=== PATIENT | female | born 1940 | race African-American/Black ===

== ENCOUNTER 2017-09-27 09:32 | Inpatient (IN) | payer MEDICARE ==
[~2017-09-27] VITALS: Ht 152.4 cm; Wt 61.2 kg
[2017-09-27 10:05] VITALS: BP 135/56
[2017-09-27] MEDS: Ipratropium 0.02% Inh Soln 2.5ml UD HHN SCH ×3 (10:12→10:40)
[2017-09-27] MEDS: Albuterol ud Inhalation HHN SCH ×3 (10:12→10:40)
[2017-09-27] MEDS ORDERED: Azithromycin 500 MG in NS 275 ML IV ONE (10:15)
[2017-09-27] MEDS ORDERED: Solu-MEDROL 125mg Inj IVP ONE (10:15)
[2017-09-27] MEDS ORDERED: cefTRIAXone 1 GM in NS 55 ML IVPB ONE (10:15)
[2017-09-27 10:39] LABS: HEMATOCRIT 46.1 % (37.0-47.0); HEMOGLOBIN 14.6 G/DL (12.0-16.0); MEAN CORPUSCULAR VOLUME 87 FL (80-99); PLATELET COUNT 228 K/UL (150-450); RED CELL DISTRIBUTION WIDTH 12.7 % (11.6-14.8); WHITE BLOOD COUNT 3.8 K/UL (4.8-10.8)
[2017-09-27 10:54] LABS: ANION GAP 5 mmol/L (5-15); BLOOD UREA NITROGEN 13 mg/dL (7-18); CARBON DIOXIDE 35 MMOL/L (21-32); CHLORIDE 98 MMOL/L (98-107); CREATININE 0.7 MG/DL (0.55-1.30); POTASSIUM 3.8 MMOL/L (3.5-5.1); SODIUM 138 MMOL/L (136-145)
[2017-09-27] MEDS ORDERED: Azithromycin 500mg Inj IV ONE (11:00)
[2017-09-27] MEDS ORDERED: NS 275 ML ONE (11:01)
[2017-09-27 11:07] LABS: ALANINE AMINOTRANSFERASE 20 U/L (12-78); ALBUMIN/GLOBULIN RATIO 0.6 (1.0-2.7); ALKALINE PHOSPHATASE 71 U/L (46-116); ASPARTATE AMINO TRANSFERASE 32 U/L (15-37); BILIRUBIN,TOTAL 0.6 MG/DL (0.2-1.0); CKMB 0.8 NG/ML (0.0-3.6); CREATINE KINASE 178 U/L (26-308)
--- NOTE | 2017-09-27 11:15 | Diagnostic Imaging Report ---
Indication: Shortness of breath Technique: One view of the chest Comparison: none Findings: There is slight blunting of left costophrenic sulcus. Interstitial opacities in the left mid and lower lung have a honeycomb appearance. No definite focal airspace consolidation. Probable small calcifications are seen in the left upper lobe. The right pleural spaces clear. The heart size is normal Impression: Interstitial opacities of the left mid and lower lung, likely reflects chronic interstitial fibrotic changes. Superimposed acute interstitial process not completely excludable. Possible small left pleural effusion
--- NOTE | 2017-09-27 11:28 | Emergency Room Report ---
History of Present Illness General Chief Complaint: Dyspnea/Respdistress Source: Patient Present Illness HPI 77-year-old female walk-in for one day of worsening shortness of breath, cough. Using a home Ventolin inhaler without improvement. Not get flu vaccine, got Pneumovax. Denies fever/chills. No recent hospitalization or sick contacts. Non smoker. Allergies: Coded Allergies: CIPROFLOXACIN (Verified Allergy, Unknown, 09/27/17) Patient History Past Medical History: asthma Past Surgical History: none Pertinent Family History: none Social History: Denies: smoking, alcohol use, drug use Now: No Immunizations: UTD Reviewed Nursing Documentation: PMH: Agreed, PSxH: Agreed Nursing Documentation-PMH Past Medical History: No History, Except For Hx Asthma: Yes Review of Systems All Other Systems: negative except mentioned in HPI Physical Exam Vital Signs Date Time Temp Pulse Resp B/P (MAP) Pulse Ox O2 Delivery O2 Flow Rate FiO2 09/27/17 09:55 99.0 98 24 123/61 79 Room Air 09/27/17 10:05 2.0 09/27/17 10:07 28 Sp02 EP Interpretation: reviewed, abnormal General Appearance: normal inspection, well appearing, alert, GCS 15, non-toxic , mild distress Head: normocephalic, atraumatic Eyes: bilateral eye PERRL, bilateral eye EOMI ENT: normal ENT inspection, hearing grossly normal, normal pharynx, no angioedema, normal voice, TMs + canals normal, uvula midline, moist mucus membranes Neck: normal inspection, full range of motion, supple, thyroid normal, no meningismus, no bony tend Respiratory: normal inspection, decreased breath sounds, accessory muscle use, rhonchi, speaking full sentences, wheezing Cardiovascular #1: regular rate, rhythm, no edema, no JVD, normal capillary refill Gastrointestinal: normal inspection, normal bowel sounds, non tender, soft, no mass, no peritonitis, non-distended, no guarding, no hernia, no pulsatile mass Genitourinary: no CVA tenderness Musculoskeletal: normal inspection, back normal, normal range of motion, no calf tenderness, pelvis stable, Osvaldo's Sign negative Neurologic: normal inspection, alert, oriented x3, responsive, temple marker III-XII nml as tested, motor strength/tone normal, cerebellar normal, normal gait, speech normal Psychiatric: normal inspection, judgement/insight normal, mood/affect normal, no suicidal/homicidal ideation, no delusions Skin: normal inspection, normal color, no rash Lymphatic: normal inspection, no adenopathy Procedures Critical Care Time Critical Care Time CC time 35minutes Critical care time endorsed for this patient for acute SOB, likely asthma exac. Hypoxic, tachypnic. Critical care time includes review of laboratory tests, imaging, review of EMR, review of paperwork from SNF (if available), discussion with patient and family (if available), review of code status/POLS (if available). Critical care time also likely includes assessment of fluid status, stabilization of vital signs, selection and dosing of appropriate antibiotics, selection and dosing of Aspirin/Plavix/Heparin/Lovenox, discussion with PMD/ attending hospitalist/loom setter. Critical care time does not include any procedures which are documented elsewhere in this EMR. Medical Decision Making Diagnostic Impression: Primary Impression: Asthma exacerbation Qualified Codes: J45.51 - Severe persistent asthma with (acute) exacerbation Additional Impression: Elevated troponin ER Course Vital signs significant for hypoxia - 94% with 2 L oxygen supplementation Also significant for tachypnea, retractions, using accessory muscles Lungs consistent wheezing and rhonchi left greater than right Concern for pneumonia Patient was placed on BiPAP and improved with nebs, magnesium Was given empiric antibiotics for clinical pneumonia, or afebrile in no leukocytosis Chest x-ray with possible left lower lobe effusion and chronic interstitial disease A troponin likely demand ischemia, as ECG does not show any ischemia or arrhythmia. Was given aspirin and will need serial troponin with ACS rule out Endorse to Dr. Rodriguez as unassigned panel admission RK admission, 1146am EKG Diagnostic Results Rate: normal Rhythm: NSR ST Segments: no acute changes ASA given to the pt in ED: Yes Rhythm Strip Diag. Results EP Interpretation: yes Rate: 106 Rhythm: NSR, no PVC's, no ectopy Chest X-Ray Diagnostic Results Chest X-Ray Diagnostic Results : Chest X-Ray Ordered: Yes # of Views/Limited/Complete: 1 View Indication: Shortness of Breath EP Interpretation: Yes Interpretation: no consolidation, no pneumothorax, no acute cardiopulmonary disease Electronically Signed by: Dr Buster Shankar mD Last Vital Signs Date Time Temp Pulse Resp B/P (MAP) Pulse Ox O2 Delivery O2 Flow Rate FiO2 09/27/17 10:56 89 26 100 Nasal Cannula 2.0 28 09/27/17 10:05 99.0 135/56 Status: improved Disposition: ADMITTED INPATIENT Condition: Critical Referrals: NOT CHOSEN MANDI/,REFERRING (PCP) BUSTER SHANKAR M.D. Sep 27, 2017 11:28
[2017-09-27 11:30] VITALS: BP 127/58
[2017-09-27 12:29] VITALS: BP 129/58
[2017-09-27] MEDS ORDERED: Albuterol/Ipratropium 3ml neb HHN PRN (13:30)
[2017-09-27] MEDS ORDERED: LORazepam Inj 2mg/ml 1ml IV PRN (13:30)
[2017-09-27] MEDS ORDERED: Nitroglycerin Subl 0.4mg tab SL PRN (13:30)
[2017-09-27] MEDS ORDERED: Promethazine/Codeine 5ml UD ORAL PRN (13:30)
[2017-09-27] MEDS ORDERED: Morphine Sulfate 2mg/ml Inj IVP PRN (13:30)
[2017-09-27] MEDS ORDERED: Ketorolac 30mg Inj IV PRN (13:30)
[2017-09-27] MEDS ORDERED: VENTOLIN HFA18 GM INH (13:51)
[2017-09-27] MEDS ORDERED: Piperacillin/Tazobactam 2.25 GM in D5W 55 ML IV SCH (14:00)
--- NOTE | 2017-09-27 14:09 | History and Physical ---
History of Present Illness General Date patient seen: Sep 27, 2017 Time patient seen: 14:09 Reason for Hospitalization: Dyspnea/Respdistress Present Illness HPI 77y/o female with pmh of asthma who presents with SOB and cough. Cough productive of white mucus. Pt states she has been having symptoms for the past few days but worsened today. She has been using her albuterol rescue inhaler w/ o relief. Denies f/c, n/v, d/c, chest pain, abd pain, dysuria. Denies recent travel or sick contacts. Did not get flue shot this year and does not want it. Got the pneumovax. Does not smoke. Pt states she has an a pulmonary workup at [facility] abt 1 year ago and declines further testing including CT scan. In ED pt noted to be hypoxic to 79% on room air. She was also tachypneic and using accessory muscles. Placed on BiPAP with improvement. Given solumedrol 125mg IV, nebulizers. Concern for pneumonia on CXR. Pt was given ceftriaxone and azithro.. Allergies: Coded Allergies: CIPROFLOXACIN (Verified Allergy, Unknown, 09/27/17) Medication History Scheduled Albuterol Sulfate (Ventolin Hfa), 2 PUFFS INH EVERY 6 HOURS, (Reported) Patient History History Provided By: Patient, Medical Record, EMS Healthcare decision maker Resuscitation status Advanced Directive on File Past Medical/Surgical History Past Medical/Surgical History: (1) Asthma Family History Family History: Patient reports no known family medical history. Social History Social History: (1) Lives with family Review of Systems Constitutional: Reports: malaise, weakness Eye: Reports: no symptoms ENT: Reports: no symptoms Respiratory: Reports: cough, shortness of breath Cardiovascular: Reports: no symptoms Gastrointestinal: Reports: no symptoms Genitourinary: Reports: no symptoms Musculoskeletal: Reports: no symptoms Skin: Reports: no symptoms Psychiatric: Reports: no symptoms Neurological: Reports: no symptoms Endocrine: Reports: no symptoms Hematologic/Lymphatic: Reports: no symptoms Physical Exam Physical Exam Narrative General: alert, cooperative, no distress, appears stated age Head: normocephalic, without obvious abnormality, atraumatic Eyes: conjunctivae/corneas clear. PERRL, EOM's intact Throat: lips, mucosa, and tongue normal. MMM Neck: supple, symmetrical, trachea midline, and no JVD Lungs: decreased breath sounds, +rhonchi L>R, +wheezing b/l Heart: regular rate and rhythm, S1, S2 normal, no murmur, click, rub or gallop Abdomen: soft, non-tender, non-distended, bowel sounds normal; no masses or organomegaly Extremities: extremities normal, atraumatic, no cyanosis or edema Pulses: 2+ and symmetric Skin: skin color, texture, turgor normal; no rashes or lesions Neurologic: grossly normal, no focal deficits Last 24 Hour Vital Signs Date Time Temp Pulse Resp B/P (MAP) Pulse Ox O2 Delivery O2 Flow Rate FiO2 09/27/17 12:29 99.1 103 27 129/58 100 Bi-pap 60 09/27/17 12:02 99 26 100 Facial 60 09/27/17 12:00 60 09/27/17 11:30 98.4 103 29 127/58 93 Nasal Cannula 2.0 09/27/17 10:56 89 26 100 Nasal Cannula 2.0 28 09/27/17 10:40 89 30 100 Nasal Cannula 2.0 28 09/27/17 10:29 82 26 100 Nasal Cannula 2.0 28 09/27/17 10:25 85 24 100 Nasal Cannula 2.0 28 09/27/17 10:17 81 22 100 Nasal Cannula 2.0 28 09/27/17 10:07 82 22 94 Nasal Cannula 2.0 28 09/27/17 10:05 99.0 88 33 135/56 89 Room Air 09/27/17 10:05 88 33 Nasal Cannula 2.0 09/27/17 09:55 99.0 98 24 123/61 79 Room Air Laboratory Tests Test 09/27/17 10:15 09/27/17 11:41 White Blood Count 3.8 K/UL (4.8-10.8) L Red Blood Count 5.30 M/UL (4.20-5.40) Hemoglobin 14.6 G/DL (12.0-16.0) Hematocrit 46.1 % (37.0-47.0) Mean Corpuscular Volume 87 FL (80-99) Mean Corpuscular Hemoglobin 27.5 PG (27.0-31.0) Mean Corpuscular Hemoglobin Concent 31.6 G/DL (32.0-36.0) L Red Cell Distribution Width 12.7 % (11.6-14.8) Platelet Count 228 K/UL (150-450) Mean Platelet Volume 6.6 FL (6.5-10.1) Neutrophils (%) (Auto) % (45.0-75.0) Lymphocytes (%) (Auto) % (20.0-45.0) Monocytes (%) (Auto) % (1.0-10.0) Eosinophils (%) (Auto) % (0.0-3.0) Basophils (%) (Auto) % (0.0-2.0) Differential Total Cells Counted 100 Neutrophils % (Manual) 34 % (45-75) L Lymphocytes % (Manual) 42 % (20-45) Monocytes % (Manual) 21 % (1-10) H Eosinophils % (Manual) 0 % (0-3) Basophils % (Manual) 0 % (0-2) Band Neutrophils 3 % (0-8) Platelet Estimate Adequate Platelet Morphology Normal Sodium Level 138 MMOL/L (136-145) Potassium Level 3.8 MMOL/L (3.5-5.1) Chloride Level 98 MMOL/L (98-107) Carbon Dioxide Level 35 MMOL/L (21-32) H Anion Gap 5 mmol/L (5-15) Blood Urea Nitrogen 13 mg/dL (7-18) Creatinine 0.7 MG/DL (0.55-1.30) Estimat Glomerular Filtration Rate mL/min (>60) Glucose Level 106 MG/DL (74-106) Calcium Level 9.0 MG/DL (8.5-10.1) Total Bilirubin 0.6 MG/DL (0.2-1.0) Aspartate Amino Transf (AST/SGOT) 32 U/L (15-37) Alanine Aminotransferase (ALT/SGPT) 20 U/L (12-78) Alkaline Phosphatase 71 U/L (46-116) Total Creatine Kinase 178 U/L (26-308) Creatine Kinase MB 0.8 NG/ML (0.0-3.6) Creatine Kinase MB Relative Index 0.4 Troponin I 0.195 ng/mL (0.000-0.056) Pro-B-Type Natriuretic Peptide 595 pg/mL (0-125) H Total Protein 7.9 G/DL (6.4-8.2) Albumin 3.0 G/DL (3.4-5.0) L Globulin 4.9 g/dL Albumin/Globulin Ratio 0.6 (1.0-2.7) L Arterial Blood pH 7.382 (7.350-7.450) Arterial Blood Partial Pressure CO2 48.9 mmHg (35.0-45.0) H Arterial Blood Partial Pressure O2 210.0 mmHg (75.0-100.0) H Arterial Blood HCO3 28.4 mmol/L (22.0-26.0) H Arterial Blood Oxygen Saturation 99.0 % (92.0-98.0) H Arterial Blood Base Excess 2.5 Francisco J Test Positive Microbiology Date/Time Source Procedure Growth Status 09/27/17 10:15 Nasal Nares Influenza Types A,B Antigen (GEOFF) - Final Complete Height (Feet): 5 Weight (Pounds): 135 Medications Current Medications Medications (Trade) Dose Ordered Sig/Ghislaine Route PRN Reason Start Time Stop Time Status Last Admin Dose Admin Albuterol/ Ipratropium (Albuterol/ Ipratropium) 3 ml Q4H PRN HHN dyspnea 09/27/17 13:30 10/02/17 13:29 Albuterol/ Ipratropium (Albuterol/ Ipratropium) 3 ml Q6HRT HHN 09/27/17 19:00 10/02/17 18:59 UNV Dextrose (Dextrose 50%) STAT PRN IV Hypoglycemia 09/27/17 13:30 10/27/17 13:29 Heparin Sodium (Porcine) (Heparin 5000 units/ml) 5,000 units EVERY 12 HOURS SUBQ 09/27/17 21:00 10/27/17 20:59 Ketorolac Tromethamine (Toradol 30mg) 30 mg Q8H PRN IV moderate pain 4-6 09/27/17 13:30 10/02/17 13:29 Lorazepam (Ativan 2mg/ml 1ml) 0.5 mg Q4H PRN IV For Anxiety 09/27/17 13:30 10/04/17 13:29 Methylprednisolone Sodium Succinate (Solu-MEDROL) 60 mg EVERY 6 HOURS IV 09/27/17 18:00 10/27/17 17:59 Morphine Sulfate (Morphine Sulfate) 2 mg Q4H PRN IVP severe pain 7-10 09/27/17 13:30 10/04/17 13:29 Nitroglycerin (Ntg) 0.4 mg Q5M X 3 DOSES PRN SL Prn Chest Pain 09/27/17 13:30 10/27/17 13:29 Ondansetron HCl (Zofran) 4 mg Q6H PRN IVP Nausea & Vomiting 09/27/17 13:30 10/27/17 13:29 Piperacillin Sod/ Tazobactam Sod 2.25 gm/Dextrose 55 ml @ 110 mls/hr EVERY 8 HOURS IV 09/27/17 14:00 10/02/17 13:59 UNV Promethazine HCl/ Codeine (Phenergan with Codeine) 5 ml Q6H PRN ORAL cough 09/27/17 13:30 10/27/17 13:29 Temazepam (Restoril) 15 mg HSPRN PRN ORAL Insomnia 09/27/17 13:30 10/04/17 13:29 Assessment/Plan Problem List: (1) Asthma exacerbation ICD Codes: J45.901 - Unspecified asthma with (acute) exacerbation SNOMED: 423086685 Qualifiers: Qualified Codes: J45.51 - Severe persistent asthma with (acute) exacerbation (2) Acute respiratory failure with hypoxia ICD Codes: J96.01 - Acute respiratory failure with hypoxia SNOMED: 26107649, 797439574 (3) Community acquired pneumonia ICD Codes: J18.9 - Pneumonia, unspecified organism SNOMED: 113955834 (4) NSTEMI (non-ST elevated myocardial infarction) ICD Codes: I21.4 - Non-ST elevation (NSTEMI) myocardial infarction SNOMED: 401502471 Status: stable Assessment/Plan Admit inpt Pulm and cardiology consulted Cont BiPAP for now s/p solumedrol 125mg IV in ER Cont steroids per pulm Nebulizers ATC and PRN Empiric zosyn for now CXR with chronic interstitial changes. Pt refusing CT chest Trend trop/EKG Check TTE Pain control, bowel regimen Supportive care DVT Prophylaxis: SCD, HSQ Code Status: Full Hospital Classification Declaration: Based on this initial evaluation, and depending on the patient's clinical course, I anticipate that this patient will require hospitalization for 2-3 days for asthma exacerbation, hypoxia, and close respiratory/hemodynamic monitoring. Disposition: Once the patient is stable to leave the hospital, I anticipate the patient will likely be discharged to the following environment: home with vs SNF I spent 72 minutes on this patient's case, and >50% was dedicated to counseling and/or care coordination. Discussed with patient/family, nursing staff, SW/CM, [ ] regarding clinical status, treatment course, and disposition planning. D/w pulm re steroids, BiPAP. D/w cardiology re trend trop, ECHO Time of note may not reflect time of encounter. Darshan Watts M.D. Sep 27, 2017 14:09
[2017-09-27 15:00] VITALS: BP 123/77
--- NOTE | 2017-09-27 15:17 | Cardiac Electrophysiology PN ---
Subjective Subjective Seen in ER and [facility] ER and Dr Sexton Trop leak. ECGNo ischemia. Echo pendiing. Avoid BB for asthma [id number] Objective Last 24 Hour Vital Signs Date Time Temp Pulse Resp B/P (MAP) Pulse Ox O2 Delivery O2 Flow Rate FiO2 09/27/17 12:29 99.1 103 27 129/58 100 Bi-pap 60 09/27/17 12:02 99 26 100 Facial 60 09/27/17 12:00 60 09/27/17 11:30 98.4 103 29 127/58 93 Nasal Cannula 2.0 09/27/17 10:56 89 26 100 Nasal Cannula 2.0 28 09/27/17 10:40 89 30 100 Nasal Cannula 2.0 28 09/27/17 10:29 82 26 100 Nasal Cannula 2.0 28 09/27/17 10:25 85 24 100 Nasal Cannula 2.0 28 09/27/17 10:17 81 22 100 Nasal Cannula 2.0 28 09/27/17 10:07 82 22 94 Nasal Cannula 2.0 28 09/27/17 10:05 99.0 88 33 135/56 89 Room Air 09/27/17 10:05 88 33 Nasal Cannula 2.0 09/27/17 09:55 99.0 98 24 123/61 79 Room Air Laboratory Tests Test 09/27/17 10:15 09/27/17 11:41 White Blood Count 3.8 K/UL (4.8-10.8) L Red Blood Count 5.30 M/UL (4.20-5.40) Hemoglobin 14.6 G/DL (12.0-16.0) Hematocrit 46.1 % (37.0-47.0) Mean Corpuscular Volume 87 FL (80-99) Mean Corpuscular Hemoglobin 27.5 PG (27.0-31.0) Mean Corpuscular Hemoglobin Concent 31.6 G/DL (32.0-36.0) L Red Cell Distribution Width 12.7 % (11.6-14.8) Platelet Count 228 K/UL (150-450) Mean Platelet Volume 6.6 FL (6.5-10.1) Neutrophils (%) (Auto) % (45.0-75.0) Lymphocytes (%) (Auto) % (20.0-45.0) Monocytes (%) (Auto) % (1.0-10.0) Eosinophils (%) (Auto) % (0.0-3.0) Basophils (%) (Auto) % (0.0-2.0) Differential Total Cells Counted 100 Neutrophils % (Manual) 34 % (45-75) L Lymphocytes % (Manual) 42 % (20-45) Monocytes % (Manual) 21 % (1-10) H Eosinophils % (Manual) 0 % (0-3) Basophils % (Manual) 0 % (0-2) Band Neutrophils 3 % (0-8) Platelet Estimate Adequate Platelet Morphology Normal Sodium Level 138 MMOL/L (136-145) Potassium Level 3.8 MMOL/L (3.5-5.1) Chloride Level 98 MMOL/L (98-107) Carbon Dioxide Level 35 MMOL/L (21-32) H Anion Gap 5 mmol/L (5-15) Blood Urea Nitrogen 13 mg/dL (7-18) Creatinine 0.7 MG/DL (0.55-1.30) Estimat Glomerular Filtration Rate mL/min (>60) Glucose Level 106 MG/DL (74-106) Calcium Level 9.0 MG/DL (8.5-10.1) Total Bilirubin 0.6 MG/DL (0.2-1.0) Aspartate Amino Transf (AST/SGOT) 32 U/L (15-37) Alanine Aminotransferase (ALT/SGPT) 20 U/L (12-78) Alkaline Phosphatase 71 U/L (46-116) Total Creatine Kinase 178 U/L (26-308) Creatine Kinase MB 0.8 NG/ML (0.0-3.6) Creatine Kinase MB Relative Index 0.4 Troponin I 0.195 ng/mL (0.000-0.056) Pro-B-Type Natriuretic Peptide 595 pg/mL (0-125) H Total Protein 7.9 G/DL (6.4-8.2) Albumin 3.0 G/DL (3.4-5.0) L Globulin 4.9 g/dL Albumin/Globulin Ratio 0.6 (1.0-2.7) L Arterial Blood pH 7.382 (7.350-7.450) Arterial Blood Partial Pressure CO2 48.9 mmHg (35.0-45.0) H Arterial Blood Partial Pressure O2 210.0 mmHg (75.0-100.0) H Arterial Blood HCO3 28.4 mmol/L (22.0-26.0) H Arterial Blood Oxygen Saturation 99.0 % (92.0-98.0) H Arterial Blood Base Excess 2.5 Francisco J Test Positive Microbiology Date/Time Source Procedure Growth Status 09/27/17 10:15 Nasal Nares Influenza Types A,B Antigen (GEOFF) - Final Complete YAYA ALARCON Sep 27, 2017 15:17
[2017-09-27 16:00] VITALS: BP 124/67
--- NOTE | 2017-09-27 17:15 | Cardiology Report ---
APPROVED REPORT EXAM: Two-dimensional and M-mode echocardiogram with Doppler and color Doppler. INDICATION Shortness of breath M-Mode DIMENSIONS IVSd1.2 (0.7-1.1cm)Left Atrium (MM)3.3 (1.6-4.0cm) LVDd4.7 (3.5-5.6cm)Aortic Root2.4 (2.0-3.7cm) PWd0.9 (0.7-1.1cm)Aortic Cusp Exc.1.7 (1.5-2.0cm) LVDs2.3 (2.5-4.0cm) PWs1.5 cm Normal left ventricular chamber size, systolic function and wall motion. Left ventricular ejection fraction estimated to be 55 %. Mild left ventricular hypertrophy. No evidence of pericardial effusion. Mild left atrial enlargement. Right cardiac chamber sizes are within normal limits. Focal aortic valve sclerosis with adequate cusp excursion. Mildly thickened mitral valve leaflets with normal excursion. Mild mitral annulus and aortic root calcification. Normal pulmonic valve structure. Normal tricuspid valve structure. IVC dilated at 2.0 cm with physiological collapse. A color flow and spectral Doppler study was performed and revealed: No aortic insufficiency. Mild mitral regurgitation. reduced left ventricular relaxation c/w impaired relaxation diastolic dysfunction. Mild tricuspid regurgitation. Tricuspid systolic velocities suggests peak right ventricular systolic pressure of 55 mmHg, consistent with moderate pulmonary hypertension. No pulmonic regurgitation present.
[2017-09-27 17:30] VITALS: BP 113/61
[2017-09-27] MEDS: Solu-MEDROL 125mg Inj IV SCH ×2 (17:50→23:42)
[2017-09-27] MEDS: guaiFENesin ER 600mg tab ORAL SCH (17:51)
[2017-09-27] MEDS: Zosyn 3.375gm q8h **Extended infusion IVPB SCH ×2 (17:51)
--- NOTE | 2017-09-27 18:00 | Consultation ---
DATE OF CONSULTATION: 09/27/2017 CARDIOLOGY CONSULTATION CONSULTING PHYSICIAN: Montana Elaine M.D. REFERRING PHYSICIAN: Laurie Rodriguez M.D. ADDITIONAL REFERRING PHYSICIAN: Darshan Watts M.D. REASON FOR CONSULTATION: Elevated troponin. HISTORY OF PRESENT ILLNESS: The patient is a 77-year-old lady with history of asthma, who presents to the emergency room with increasing shortness of breath. The patient uses Ventolin inhaler at home and did not improve. The patient did not have any chest pain or prior myocardial infarction or known coronary artery disease. In the emergency room, the patient's troponin was elevated and a Cardiology consultation was obtained for further evaluation and management. Her EKG, however, showed T-wave inversion only in lead 3, otherwise completely normal. PAST MEDICAL HISTORY: Asthma. The patient denies any hypertension or diabetes or known coronary artery disease or congestive heart failure. FAMILY HISTORY: Noncontributory. SOCIAL HISTORY: She lives at home. Does not smoke or drink alcohol. REVIEW OF SYSTEMS: Review of systems was performed and was negative other than what was mentioned in the history of present illness. PHYSICAL EXAMINATION: VITAL SIGNS: Blood pressure was 121/61, pulse 98, respirations 20, and temperature 99. HEAD AND NECK: Showed no JVD or carotid bruit. LUNGS: Diffuse wheezing. CARDIOVASCULAR: Shows regular S1 and S2 with no gallop or murmur. ABDOMEN: Soft and nontender. EXTREMITIES: No pitting edema. LABORATORY DATA: Her labs show white count of 3.8, hemoglobin 14.6, hematocrit 46.1, and platelet count is 228,000. Sodium is 138, potassium 3.8, BUN of 13, creatinine 0.7, and glucose of 106. BNP is 595. Troponin is 0.195. ASSESSMENT AND PLAN: 1. Troponin leak. This is unusual as the patient has essentially no risk factors except for her age. Her EKG showed inverted T-waves in lead 3 only. We will completely rule out myocardial infarction protocol. We will get an echocardiogram to evaluate for ejection fraction and wall motion abnormality. Keep the patient on aspirin. Avoid beta-radha in view of the patient's severe asthma. 2. Asthma exacerbation. The patient is on antibiotic as well as Solu-Medrol and albuterol, under the management of Dr. Rodriguez. Thank you very much for allowing me to participate in the care of this patient. Please do not hesitate to contact me for any questions regarding my evaluation. Montana Elaine M.D. DR: KIRAN JOB#: [id number] CC:
--- NOTE | 2017-09-27 19:24 | Consultation ---
History of Present Illness General Date patient seen: Sep 27, 2017 Chief Complaint: Dyspnea/Respdistress Referring physician: Dr. Rodriguez Reason for Consultation: dyspnea Present Illness HPI 77-year-old female with hx of asthma walk-in to Er with CC of worsening shortness of breath, cough and other flu type symptoms. Pt had productive cough. Her usual inhalers didn't helpr without improvement. Her CXR showed chronic fibrosis and her troponin was positive. She is admitted to [facility] for further management. 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 kamron boswell. Resuscitation status Full Code Advanced Directive on File No Past Medical/Surgical History Past Medical/Surgical History: (1) Pulmonary fibrosis (2) History of asthma Review of Systems Constitutional: Reports: malaise Eye: Reports: no symptoms ENT: Reports: no symptoms Respiratory: Reports: no symptoms Physical Exam General Appearance: WD/WN Lines, tubes and drains: peripheral HEENT: normocephalic, atraumatic Neck: non-tender, normal alignment Breasts: no masses Cardiovascular/Chest: normal peripheral pulses Abdomen: normal bowel sounds Genitourinary/Rectal: normal genital exam Extremities: normal range of motion Skin Exam: normal pigmentation Last 24 Hour Vital Signs Date Time Temp Pulse Resp B/P (MAP) Pulse Ox O2 Delivery O2 Flow Rate FiO2 09/27/17 17:30 97.5 91 21 113/61 97 Nasal Cannula 2.0 09/27/17 17:00 98.7 36 124/67 94 Nasal Cannula 2.0 09/27/17 16:00 88 36 124/67 94 Nasal Cannula 2.0 09/27/17 15:00 98.7 86 33 123/77 93 Nasal Cannula 2.0 09/27/17 12:29 99.1 103 27 129/58 100 Bi-pap 60 09/27/17 12:02 99 26 100 Facial 60 09/27/17 12:00 60 09/27/17 11:30 98.4 103 29 127/58 93 Nasal Cannula 2.0 09/27/17 10:56 89 26 100 Nasal Cannula 2.0 28 09/27/17 10:40 89 30 100 Nasal Cannula 2.0 28 09/27/17 10:29 82 26 100 Nasal Cannula 2.0 28 09/27/17 10:25 85 24 100 Nasal Cannula 2.0 28 09/27/17 10:17 81 22 100 Nasal Cannula 2.0 28 09/27/17 10:07 82 22 94 Nasal Cannula 2.0 28 09/27/17 10:05 99.0 88 33 135/56 89 Room Air 09/27/17 10:05 88 33 Nasal Cannula 2.0 09/27/17 09:55 99.0 98 24 123/61 79 Room Air Laboratory Tests Test 09/27/17 10:15 09/27/17 11:41 09/27/17 16:00 White Blood Count 3.8 K/UL (4.8-10.8) L Red Blood Count 5.30 M/UL (4.20-5.40) Hemoglobin 14.6 G/DL (12.0-16.0) Hematocrit 46.1 % (37.0-47.0) Mean Corpuscular Volume 87 FL (80-99) Mean Corpuscular Hemoglobin 27.5 PG (27.0-31.0) Mean Corpuscular Hemoglobin Concent 31.6 G/DL (32.0-36.0) L Red Cell Distribution Width 12.7 % (11.6-14.8) Platelet Count 228 K/UL (150-450) Mean Platelet Volume 6.6 FL (6.5-10.1) Neutrophils (%) (Auto) % (45.0-75.0) Lymphocytes (%) (Auto) % (20.0-45.0) Monocytes (%) (Auto) % (1.0-10.0) Eosinophils (%) (Auto) % (0.0-3.0) Basophils (%) (Auto) % (0.0-2.0) Differential Total Cells Counted 100 Neutrophils % (Manual) 34 % (45-75) L Lymphocytes % (Manual) 42 % (20-45) Monocytes % (Manual) 21 % (1-10) H Eosinophils % (Manual) 0 % (0-3) Basophils % (Manual) 0 % (0-2) Band Neutrophils 3 % (0-8) Platelet Estimate Adequate Platelet Morphology Normal Sodium Level 138 MMOL/L (136-145) Potassium Level 3.8 MMOL/L (3.5-5.1) Chloride Level 98 MMOL/L (98-107) Carbon Dioxide Level 35 MMOL/L (21-32) H Anion Gap 5 mmol/L (5-15) Blood Urea Nitrogen 13 mg/dL (7-18) Creatinine 0.7 MG/DL (0.55-1.30) Estimat Glomerular Filtration Rate mL/min (>60) Glucose Level 106 MG/DL (74-106) Calcium Level 9.0 MG/DL (8.5-10.1) Total Bilirubin 0.6 MG/DL (0.2-1.0) Aspartate Amino Transf (AST/SGOT) 32 U/L (15-37) Alanine Aminotransferase (ALT/SGPT) 20 U/L (12-78) Alkaline Phosphatase 71 U/L (46-116) Total Creatine Kinase 178 U/L (26-308) Creatine Kinase MB 0.8 NG/ML (0.0-3.6) Creatine Kinase MB Relative Index 0.4 Troponin I 0.195 ng/mL (0.000-0.056) 0.188 ng/mL (0.000-0.056) Pro-B-Type Natriuretic Peptide 595 pg/mL (0-125) H Total Protein 7.9 G/DL (6.4-8.2) Albumin 3.0 G/DL (3.4-5.0) L Globulin 4.9 g/dL Albumin/Globulin Ratio 0.6 (1.0-2.7) L Arterial Blood pH 7.382 (7.350-7.450) Arterial Blood Partial Pressure CO2 48.9 mmHg (35.0-45.0) H Arterial Blood Partial Pressure O2 210.0 mmHg (75.0-100.0) H Arterial Blood HCO3 28.4 mmol/L (22.0-26.0) H Arterial Blood Oxygen Saturation 99.0 % (92.0-98.0) H Arterial Blood Base Excess 2.5 Francisco J Test Positive Microbiology Date/Time Source Procedure Growth Status 09/27/17 10:15 Nasal Nares Influenza Types A,B Antigen (GEOFF) - Final Complete Height (Feet): 5 Height (Inches): 0.00 Weight (Pounds): 135 Medications Current Medications Medications (Trade) Dose Ordered Sig/Ghislaine Route PRN Reason Start Time Stop Time Status Last Admin Dose Admin Albuterol/ Ipratropium (Albuterol/ Ipratropium) 3 ml Q4H PRN HHN dyspnea 09/27/17 13:30 10/02/17 13:29 Albuterol/ Ipratropium (Albuterol/ Ipratropium) 3 ml Q6HRT HHN 09/27/17 19:00 10/02/17 18:59 Dextrose (Dextrose 50%) STAT PRN IV Hypoglycemia 09/27/17 13:30 10/27/17 13:29 Guaifenesin (Mucinex ER) 600 mg TWICE A DAY ORAL 09/27/17 18:00 10/27/17 17:59 09/27/17 17:51 Heparin Sodium (Porcine) (Heparin 5000 units/ml) 5,000 units EVERY 12 HOURS SUBQ 09/27/17 21:00 10/27/17 20:59 Ketorolac Tromethamine (Toradol 30mg) 30 mg Q8H PRN IV moderate pain 4-6 09/27/17 13:30 10/02/17 13:29 Lorazepam (Ativan 2mg/ml 1ml) 0.5 mg Q4H PRN IV For Anxiety 09/27/17 13:30 10/04/17 13:29 Methylprednisolone Sodium Succinate (Solu-MEDROL) 60 mg EVERY 6 HOURS IV 09/27/17 18:00 10/27/17 17:59 09/27/17 17:50 Morphine Sulfate (Morphine Sulfate) 2 mg Q4H PRN IVP severe pain 7-10 09/27/17 13:30 10/04/17 13:29 Nitroglycerin (Ntg) 0.4 mg Q5M X 3 DOSES PRN SL Prn Chest Pain 09/27/17 13:30 10/27/17 13:29 Ondansetron HCl (Zofran) 4 mg Q6H PRN IVP Nausea & Vomiting 09/27/17 13:30 10/27/17 13:29 Piperacillin Sod/ Tazobactam Sod 3.375 gm/Sodium Chloride 110 ml @ 27.5 mls/hr EVERY 8 HOURS IVPB 09/27/17 18:00 10/02/17 17:59 09/27/17 17:51 Promethazine HCl/ Codeine (Phenergan with Codeine) 5 ml Q6H PRN ORAL cough 09/27/17 13:30 10/27/17 13:29 Temazepam (Restoril) 15 mg HSPRN PRN ORAL Insomnia 09/27/17 13:30 10/04/17 13:29 Assessment/Plan Problem List: (1) Asthma exacerbation ICD Codes: J45.901 - Unspecified asthma with (acute) exacerbation SNOMED: 601809651 Qualifiers: Qualified Codes: J45.51 - Severe persistent asthma with (acute) exacerbation (2) Pulmonary fibrosis ICD Codes: J84.10 - Pulmonary fibrosis, unspecified SNOMED: 06228968 (3) Elevated troponin ICD Codes: R74.8 - Abnormal levels of other serum enzymes SNOMED: 680190231, 579136576, 569004727 Assessment/Plan respiratory treatment check sputum IV steroids check cultures IV abx echo cardiology to see. EDITH STACK Sep 27, 2017 19:24
[2017-09-27] MEDS: Albuterol/Ipratropium 3ml neb HHN SCH (20:33)
[2017-09-27] MEDS ORDERED: Theophylline ER 100mg ORAL SCH (21:00)
[2017-09-27] MEDS: Heparin 5000 units/ml inj SUBQ SCH (21:16)
[2017-09-28] VITALS: BP 103/89
[2017-09-28] MEDS: Albuterol/Ipratropium 3ml neb HHN SCH ×4 (00:46→20:17)
[2017-09-28 04:00] VITALS: BP 110/62
[2017-09-28] MEDS: Solu-MEDROL 125mg Inj IV SCH ×3 (05:35→22:15)
[2017-09-28] MEDS: Zosyn 3.375gm q8h **Extended infusion IVPB SCH ×6 (05:35→22:18)
[2017-09-28 07:25] LABS: ANION GAP 6 mmol/L (5-15); BLOOD UREA NITROGEN 19 mg/dL (7-18); CALCIUM 8.8 MG/DL (8.5-10.1); CARBON DIOXIDE 34 MMOL/L (21-32); CHLORIDE 103 MMOL/L (98-107); CHOLESTEROL 171 MG/DL (< 200); CREATININE 0.7 MG/DL (0.55-1.30); HDL CHOLESTEROL 44 MG/DL (40-60); POTASSIUM 4.2 MMOL/L (3.5-5.1); SODIUM 143 MMOL/L (136-145); TRIGLYCERIDES 64 MG/DL (30-150)
[2017-09-28 08:00] VITALS: BP 110/61
[2017-09-28] MEDS: guaiFENesin ER 600mg tab ORAL SCH ×2 (08:48→17:53)
[2017-09-28] MEDS: Heparin 5000 units/ml inj SUBQ SCH ×2 (08:50→22:15)
[2017-09-28] MEDS ORDERED: Miralax 17gm pkt ORAL PRN (10:45)
--- NOTE | 2017-09-28 10:54 | Cardiac Electrophysiology PN ---
Assessment/Plan Assessment/Plan 1. Troponin leak. This is unusual as the patient has essentially no risk factors except for her age. 3 levels are low and flat. Her EKG showed inverted T -waves in lead 3 only. Echo EF 55%. Keep the patient on aspirin. Avoid beta-radha in view of the patient's severe asthma. 2. Asthma exacerbation. The patient is on antibiotic as well as Solu-Medrol and albuterol, under the management of Dr. Rodriguez. 3. Pulmonary HTN PAP 55 Subjective Subjective Feeling better. No chest pain or SOB. Daughter at bedside. Objective Last 24 Hour Vital Signs Date Time Temp Pulse Resp B/P (MAP) Pulse Ox O2 Delivery O2 Flow Rate FiO2 09/28/17 08:00 97.0 81 20 110/61 91 Nasal Cannula 3.0 09/28/17 08:00 80 09/28/17 07:33 72 16 98 Nasal Cannula 3.0 32 09/28/17 07:23 97 Nasal Cannula 3.0 32 09/28/17 07:23 Nasal Cannula 3.0 32 09/28/17 07:23 77 16 97 Nasal Cannula 3.0 32 09/28/17 04:12 72 09/28/17 04:00 98.1 79 20 110/62 95 Nasal Cannula 3.0 09/28/17 00:55 76 16 98 Nasal Cannula 3.0 32 09/28/17 00:46 77 16 94 Nasal Cannula 3.0 32 09/28/17 00:11 78 09/28/17 00:00 98.0 81 20 103/89 98 Nasal Cannula 3.0 09/27/17 20:42 70 16 98 Nasal Cannula 3.0 32 09/27/17 20:33 93 Nasal Cannula 3.0 32 09/27/17 20:33 Nasal Cannula 3.0 32 09/27/17 20:33 69 16 93 Nasal Cannula 3.0 32 09/27/17 19:16 83 09/27/17 17:30 97.5 91 21 113/61 97 Nasal Cannula 2.0 09/27/17 17:00 98.7 36 124/67 94 Nasal Cannula 2.0 09/27/17 16:00 88 36 124/67 94 Nasal Cannula 2.0 09/27/17 15:00 98.7 86 33 123/77 93 Nasal Cannula 2.0 09/27/17 12:29 99.1 103 27 129/58 100 Bi-pap 60 09/27/17 12:02 99 26 100 Facial 60 09/27/17 12:00 60 09/27/17 11:30 98.4 103 29 127/58 93 Nasal Cannula 2.0 09/27/17 10:56 89 26 100 Nasal Cannula 2.0 28 Intake and Output 09/27/17 09/28/17 19:00 07:00 Intake Total 630 ml 39.0 ml Balance 630 ml 39.0 ml Intake Oral 300 ml IV Total 330 ml 39.0 ml # Voids 1 1 Laboratory Tests Test 09/27/17 11:41 09/27/17 16:00 09/28/17 04:55 Arterial Blood pH 7.382 (7.350-7.450) Arterial Blood Partial Pressure CO2 48.9 mmHg (35.0-45.0) H Arterial Blood Partial Pressure O2 210.0 mmHg (75.0-100.0) H Arterial Blood HCO3 28.4 mmol/L (22.0-26.0) H Arterial Blood Oxygen Saturation 99.0 % (92.0-98.0) H Arterial Blood Base Excess 2.5 Francisco J Test Positive Troponin I 0.188 ng/mL (0.000-0.056) 0.148 ng/mL (0.000-0.056) Sodium Level 143 MMOL/L (136-145) Potassium Level 4.2 MMOL/L (3.5-5.1) Chloride Level 103 MMOL/L (98-107) Carbon Dioxide Level 34 MMOL/L (21-32) H Anion Gap 6 mmol/L (5-15) Blood Urea Nitrogen 19 mg/dL (7-18) H Creatinine 0.7 MG/DL (0.55-1.30) Estimat Glomerular Filtration Rate mL/min (>60) Glucose Level 191 MG/DL (74-106) H Hemoglobin A1c 6.4 % (4.3-6.0) H Calcium Level 8.8 MG/DL (8.5-10.1) Magnesium Level 1.9 MG/DL (1.8-2.4) Pro-B-Type Natriuretic Peptide 965 pg/mL (0-125) H Triglycerides Level 64 MG/DL (30-150) Cholesterol Level 171 MG/DL (< 200) LDL Cholesterol 113 mg/dL (<100) H HDL Cholesterol 44 MG/DL (40-60) Cholesterol/HDL Ratio 3.9 (3.3-4.4) Thyroid Stimulating Hormone (TSH) 0.599 uiU/mL (0.358-3.740) Free Thyroxine 1.56 NG/DL (0.76-1.46) H Microbiology Date/Time Source Procedure Growth Status 09/27/17 10:15 Nasal Nares Influenza Types A,B Antigen (GEOFF) - Final Complete Objective HEAD AND NECK: Showed no JVD or carotid bruit. LUNGS: Diffuse wheezing. CARDIOVASCULAR: Shows regular S1 and S2 with no gallop or murmur. ABDOMEN: Soft and nontender. EXTREMITIES: No pitting edema. YAYA ALARCON Sep 28, 2017 10:54
[2017-09-28 12:00] VITALS: BP 116/59
--- NOTE | 2017-09-28 13:17 | Pulmonology Progress Note ---
Assessment/Plan Problems: (1) Asthma exacerbation (2) Pulmonary fibrosis (3) Elevated troponin Assessment/Plan improving taper steroids pt refused CT scan ( has chronic pulmonary fibrosis) check echo Subjective ROS Limited/Unobtainable: No Constitutional: Reports: no symptoms HEENT: Repors: no symptoms Respiratory: Reports: no symptoms Allergies: Coded Allergies: CIPROFLOXACIN (Verified Allergy, Unknown, 09/27/17) Objective Last 24 Hour Vital Signs Date Time Temp Pulse Resp B/P (MAP) Pulse Ox O2 Delivery O2 Flow Rate FiO2 09/28/17 08:00 97.0 81 20 110/61 91 Nasal Cannula 3.0 09/28/17 08:00 80 09/28/17 07:33 72 16 98 Nasal Cannula 3.0 32 09/28/17 07:23 97 Nasal Cannula 3.0 32 09/28/17 07:23 Nasal Cannula 3.0 32 09/28/17 07:23 77 16 97 Nasal Cannula 3.0 32 09/28/17 04:12 72 09/28/17 04:00 98.1 79 20 110/62 95 Nasal Cannula 3.0 09/28/17 00:55 76 16 98 Nasal Cannula 3.0 32 09/28/17 00:46 77 16 94 Nasal Cannula 3.0 32 09/28/17 00:11 78 09/28/17 00:00 98.0 81 20 103/89 98 Nasal Cannula 3.0 09/27/17 20:42 70 16 98 Nasal Cannula 3.0 32 09/27/17 20:33 93 Nasal Cannula 3.0 32 09/27/17 20:33 Nasal Cannula 3.0 32 09/27/17 20:33 69 16 93 Nasal Cannula 3.0 32 09/27/17 19:16 83 09/27/17 17:30 97.5 91 21 113/61 97 Nasal Cannula 2.0 09/27/17 17:00 98.7 36 124/67 94 Nasal Cannula 2.0 09/27/17 16:00 88 36 124/67 94 Nasal Cannula 2.0 09/27/17 15:00 98.7 86 33 123/77 93 Nasal Cannula 2.0 Intake and Output 09/27/17 09/28/17 19:00 07:00 Intake Total 630 ml 39.0 ml Balance 630 ml 39.0 ml Intake Oral 300 ml IV Total 330 ml 39.0 ml # Voids 1 1 General Appearance: cachetic HEENT: normocephalic Respiratory/Chest: chest wall non-tender, lungs clear, chest wall tender Cardiovascular: normal peripheral pulses, normal rate Abdomen: normal bowel sounds, no scars Genitourinary: normal external genitalia Extremities: no cyanosis Neurologic/Psychiatric: bacteriologist medical II-XII grossly normal Microbiology Date/Time Source Procedure Growth Status 09/27/17 10:15 Nasal Nares Influenza Types A,B Antigen (GEOFF) - Final Complete Laboratory Tests 09/27/17 16:00: Troponin I 0.188H 09/28/17 04:55: Troponin I 0.148H, Sodium Level 143, Potassium Level 4.2, Chloride Level 103, Carbon Dioxide Level 34H, Anion Gap 6, Blood Urea Nitrogen 19H, Creatinine 0.7, Estimat Glomerular Filtration Rate , Glucose Level 191H, Hemoglobin A1c 6.4H, Calcium Level 8.8, Magnesium Level 1.9, Pro-B-Type Natriuretic Peptide 965H, Triglycerides Level 64, Cholesterol Level 171, LDL Cholesterol 113H, HDL Cholesterol 44, Cholesterol/HDL Ratio 3.9, Thyroid Stimulating Hormone (TSH) 0.599, Free Thyroxine 1.56H Current Medications Medications (Trade) Dose Ordered Sig/Ghislaine Route PRN Reason Start Time Stop Time Status Last Admin Dose Admin Albuterol/ Ipratropium (Albuterol/ Ipratropium) 3 ml Q4H PRN HHN dyspnea 09/27/17 13:30 10/02/17 13:29 Albuterol/ Ipratropium (Albuterol/ Ipratropium) 3 ml Q6HRT HHN 09/27/17 19:00 10/02/17 18:59 09/28/17 07:23 Dextrose (Dextrose 50%) STAT PRN IV Hypoglycemia 09/27/17 13:30 10/27/17 13:29 Docusate Sodium (Colace) 100 mg TWICE A DAY ORAL 09/28/17 18:00 10/28/17 17:59 Guaifenesin (Mucinex ER) 600 mg TWICE A DAY ORAL 09/27/17 18:00 10/27/17 17:59 09/28/17 08:48 Heparin Sodium (Porcine) (Heparin 5000 units/ml) 5,000 units EVERY 12 HOURS SUBQ 09/27/17 21:00 10/27/17 20:59 09/28/17 08:50 Lorazepam (Ativan 2mg/ml 1ml) 0.5 mg Q4H PRN IV For Anxiety 09/27/17 13:30 10/04/17 13:29 Methylprednisolone Sodium Succinate (Solu-MEDROL) 60 mg EVERY 6 HOURS IV 09/27/17 18:00 10/27/17 17:59 09/28/17 12:05 Morphine Sulfate (Morphine Sulfate) 2 mg Q4H PRN IVP severe pain 7-10 09/27/17 13:30 10/04/17 13:29 Nitroglycerin (Ntg) 0.4 mg Q5M X 3 DOSES PRN SL Prn Chest Pain 09/27/17 13:30 10/27/17 13:29 Ondansetron HCl (Zofran) 4 mg Q6H PRN IVP Nausea & Vomiting 09/27/17 13:30 10/27/17 13:29 Piperacillin Sod/ Tazobactam Sod 3.375 gm/Sodium Chloride 110 ml @ 27.5 mls/hr EVERY 8 HOURS IVPB 09/27/17 18:00 10/02/17 17:59 09/28/17 05:35 Polyethylene Glycol (Miralax) 17 gm DAILYPRN PRN ORAL Constipation 09/28/17 10:45 10/28/17 10:44 Promethazine HCl/ Codeine (Phenergan with Codeine) 5 ml Q6H PRN ORAL cough 09/27/17 13:30 10/27/17 13:29 Temazepam (Restoril) 15 mg HSPRN PRN ORAL Insomnia 09/27/17 13:30 10/04/17 13:29 EDITH STACK Sep 28, 2017 13:16
[2017-09-28 16:00] VITALS: BP 105/76
[2017-09-28] MEDS: Docusate 100mg cap ORAL SCH (17:53)
--- NOTE | 2017-09-28 18:48 | General Progress Note ---
Assessment/Plan Problem List: (1) Asthma exacerbation ICD Codes: J45.901 - Unspecified asthma with (acute) exacerbation SNOMED: 210922708 Qualifiers: Qualified Codes: J45.51 - Severe persistent asthma with (acute) exacerbation (2) Acute respiratory failure with hypoxia ICD Codes: J96.01 - Acute respiratory failure with hypoxia SNOMED: 31925874, 210221292 (3) Community acquired pneumonia ICD Codes: J18.9 - Pneumonia, unspecified organism SNOMED: 013075575 (4) NSTEMI (non-ST elevated myocardial infarction) ICD Codes: I21.4 - Non-ST elevation (NSTEMI) myocardial infarction SNOMED: 957649961 (5) Moderate to severe pulmonary hypertension ICD Codes: I27.20 - Pulmonary hypertension, unspecified SNOMED: 70595097 Status: stable Assessment/Plan Pulm and cardiology consulted Pt now off BiPAP and on nasal cannula Wean O2 as tolerated s/p solumedrol 125mg IV in ER Cont steroids per pulm Nebulizers ATC and PRN Empiric zosyn for now CXR with chronic interstitial changes. Pt refusing CT chest. Possible interstitial lung disease, pulmonary fiboriss Trop peaked at 0.19 TTE showed EF 55%, moderate pulm HTN Pain control, bowel regimen Supportive care DVT Prophylaxis: SCD, HSQ Code Status: Full Hospital Classification Declaration: Based on this initial evaluation, and depending on the patient's clinical course, I anticipate that this patient will require hospitalization for 1-2 days for asthma exacerbation, hypoxia, and close respiratory/hemodynamic monitoring. Disposition: Once the patient is stable to leave the hospital, I anticipate the patient will likely be discharged to the following environment: home with HH vs SNF Discussed with patient/family, nursing staff, SW/CM, cardiology, pulm regarding clinical status, treatment course, and disposition planning. D/w pulm re steroids, abx Time of note may not reflect time of encounter. Subjective Date patient seen: Sep 28, 2017 Time patient seen: 12:00 ROS Limited/Unobtainable: No Constitutional: Reports: no symptoms HEENT: Reports: no symptoms Cardiovascular: Reports: no symptoms Respiratory: Reports: cough, shortness of breath, SOB with excertion Gastrointestinal/Abdominal: Reports: no symptoms Genitourinary: Reports: no symptoms Neurologic/Psychiatric: Reports: no symptoms Endocrine: Reports: no symptoms Hematologic/Lymphatic: Reports: no symptoms Allergies: Coded Allergies: CIPROFLOXACIN (Verified Allergy, Unknown, 09/27/17) All Systems: reviewed and negative except above Subjective No acute o/n events Pt states she feels better. Still on 2-3L O2 via NC. Cough and SOB improving. Objective Last 24 Hour Vital Signs Date Time Temp Pulse Resp B/P (MAP) Pulse Ox O2 Delivery O2 Flow Rate FiO2 09/28/17 16:00 91 09/28/17 16:00 97.9 93 18 105/76 93 Nasal Cannula 3.0 09/28/17 13:14 75 16 98 Nasal Cannula 3.0 32 09/28/17 13:01 72 14 96 Nasal Cannula 3.0 32 09/28/17 12:00 97.5 78 18 116/59 93 Nasal Cannula 3.0 09/28/17 12:00 83 09/28/17 08:00 97.0 81 20 110/61 91 Nasal Cannula 3.0 09/28/17 08:00 80 09/28/17 07:33 72 16 98 Nasal Cannula 3.0 32 09/28/17 07:23 97 Nasal Cannula 3.0 32 09/28/17 07:23 Nasal Cannula 3.0 32 09/28/17 07:23 77 16 97 Nasal Cannula 3.0 32 09/28/17 04:12 72 09/28/17 04:00 98.1 79 20 110/62 95 Nasal Cannula 3.0 09/28/17 00:55 76 16 98 Nasal Cannula 3.0 32 09/28/17 00:46 77 16 94 Nasal Cannula 3.0 32 09/28/17 00:11 78 09/28/17 00:00 98.0 81 20 103/89 98 Nasal Cannula 3.0 09/27/17 20:42 70 16 98 Nasal Cannula 3.0 32 09/27/17 20:33 93 Nasal Cannula 3.0 32 09/27/17 20:33 Nasal Cannula 3.0 32 09/27/17 20:33 69 16 93 Nasal Cannula 3.0 32 09/27/17 19:16 83 Intake and Output 09/27/17 09/28/17 19:00 07:00 Intake Total 630 ml 39.0 ml Balance 630 ml 39.0 ml Intake Oral 300 ml IV Total 330 ml 39.0 ml # Voids 1 1 Laboratory Tests 09/28/17 04:55: Sodium Level 143, Potassium Level 4.2, Chloride Level 103, Carbon Dioxide Level 34H, Anion Gap 6, Blood Urea Nitrogen 19H, Creatinine 0.7, Estimat Glomerular Filtration Rate , Glucose Level 191H, Hemoglobin A1c 6.4H, Calcium Level 8.8, Magnesium Level 1.9, Troponin I 0.148H, Pro-B-Type Natriuretic Peptide 965H, Triglycerides Level 64, Cholesterol Level 171, LDL Cholesterol 113H, HDL Cholesterol 44, Cholesterol/HDL Ratio 3.9, Thyroid Stimulating Hormone (TSH) 0.599, Free Thyroxine 1.56H Height (Feet): 5 Height (Inches): 0.00 Weight (Pounds): 135 Objective General: alert, cooperative, no distress, appears stated age Head: normocephalic, without obvious abnormality, atraumatic Eyes: conjunctivae/corneas clear. PERRL, EOM's intact Throat: lips, mucosa, and tongue normal. MMM Neck: supple, symmetrical, trachea midline, and no JVD Lungs: clear to auscultation bilaterally Heart: regular rate and rhythm, S1, S2 normal, no murmur, click, rub or gallop Abdomen: soft, non-tender, non-distended, bowel sounds normal Extremities: extremities normal, atraumatic, no cyanosis or edema Pulses: 2+ and symmetric Skin: skin color, texture, turgor normal; no rashes or lesions Neurologic: grossly normal, no focal deficits Darshan Watts M.D. Sep 28, 2017 18:48
[2017-09-28 20:00] VITALS: BP 107/76
[2017-09-29] VITALS: BP 117/65
[2017-09-29] MEDS: Albuterol/Ipratropium 3ml neb HHN SCH ×3 (01:09→13:07)
[2017-09-29 04:00] VITALS: BP 108/61
[2017-09-29] MEDS: Zosyn 3.375gm q8h **Extended infusion IVPB SCH ×4 (05:35→14:00)
[2017-09-29 06:09] LABS: BASOPHILS % (AUTO) 0.4 % (0.0-2.0); HEMATOCRIT 40.2 % (37.0-47.0); HEMOGLOBIN 13.3 G/DL (12.0-16.0); LYMPHOCYTES % (AUTO) 13.5 % (20.0-45.0); MEAN CORPUSCULAR VOLUME 87 FL (80-99); MONOCYTES % (AUTO) 14.2 % (1.0-10.0); NEUTROPHILS % (AUTO) 71.9 % (45.0-75.0); PLATELET COUNT 210 K/UL (150-450); RED BLOOD COUNT 4.62 M/UL (4.20-5.40); RED CELL DISTRIBUTION WIDTH 12.7 % (11.6-14.8); WHITE BLOOD COUNT 7.3 K/UL (4.8-10.8)
[2017-09-29 06:28] LABS: ALANINE AMINOTRANSFERASE 17 U/L (12-78); ALBUMIN 2.6 G/DL (3.4-5.0); ALBUMIN/GLOBULIN RATIO 0.6 (1.0-2.7); ALKALINE PHOSPHATASE 54 U/L (46-116); ANION GAP 7 mmol/L (5-15); ASPARTATE AMINO TRANSFERASE 19 U/L (15-37); BILIRUBIN,TOTAL 0.4 MG/DL (0.2-1.0); BLOOD UREA NITROGEN 13 mg/dL (7-18); CALCIUM 8.7 MG/DL (8.5-10.1); CARBON DIOXIDE 33 MMOL/L (21-32); CHLORIDE 102 MMOL/L (98-107); CREATININE 0.8 MG/DL (0.55-1.30); POTASSIUM 3.6 MMOL/L (3.5-5.1); SODIUM 142 MMOL/L (136-145)
[2017-09-29 08:00] VITALS: BP 150/50
[2017-09-29] MEDS: Docusate 100mg cap ORAL SCH (09:00)
[2017-09-29] MEDS: Solu-MEDROL 125mg Inj IV SCH (09:32)
[2017-09-29] MEDS: guaiFENesin ER 600mg tab ORAL SCH (09:32)
[2017-09-29] MEDS: Heparin 5000 units/ml inj SUBQ SCH (09:34)
[2017-09-29 12:00] VITALS: BP 120/53
[2017-09-29] MEDS ORDERED: DUONEB 0.5-3(2.53 ML HHN (12:14)
[2017-09-29] MEDS ORDERED: AUGMENTIN 875-1 EAC1 ORAL (12:14)
[2017-09-29] MEDS ORDERED: ADVAIR 100-501 EACH INH (12:15)
[2017-09-29] MEDS ORDERED: PREDNISONE20 MG ORAL (12:15)
--- NOTE | 2017-09-29 13:06 | Cardiac Electrophysiology PN ---
Assessment/Plan Assessment/Plan 1. Troponin leak. Unusual as the patient has essentially no risk factors except for her age. 3 levels are low and flat now. EKG showed inverted T-waves in lead 3 only. Echo EF 55%. Keep the patient on aspirin. Avoid beta-radha in view of the patient's severe asthma. 2. Asthma exacerbation. On antibiotic as well as Solu-Medrol and albuterol, under the management of Dr. Rodriguez. 3. Pulmonary HTN PAP 55 [address] daughter Subjective Subjective No chest pain or SOB. Daughter at bedside.DC planning in progress. Objective Last 24 Hour Vital Signs Date Time Temp Pulse Resp B/P (MAP) Pulse Ox O2 Delivery O2 Flow Rate FiO2 09/29/17 08:00 97.0 77 18 150/50 97 Nasal Cannula 2.0 09/29/17 07:46 83 09/29/17 07:16 76 16 98 Nasal Cannula 3.0 32 09/29/17 07:11 79 16 96 Nasal Cannula 3.0 32 09/29/17 07:11 Nasal Cannula 3.0 32 09/29/17 07:11 96 Nasal Cannula 3.0 32 09/29/17 05:28 75 09/29/17 04:00 97.3 86 18 108/61 93 Nasal Cannula 3.0 09/29/17 01:21 78 16 97 Nasal Cannula 3.0 32 09/29/17 01:11 87 18 94 Nasal Cannula 3.0 32 09/29/17 00:00 98.0 86 20 117/65 94 Nasal Cannula 3.0 09/28/17 23:55 88 09/28/17 20:26 80 16 98 Nasal Cannula 3.0 32 09/28/17 20:20 Nasal Cannula 3.0 32 09/28/17 20:19 95 Nasal Cannula 3.0 32 09/28/17 20:18 84 18 95 Nasal Cannula 3.0 32 09/28/17 20:00 97.4 73 20 107/76 94 Nasal Cannula 3.0 09/28/17 20:00 76 09/28/17 16:00 91 09/28/17 16:00 97.9 93 18 105/76 93 Nasal Cannula 3.0 09/28/17 13:14 75 16 98 Nasal Cannula 3.0 32 Intake and Output 09/28/17 09/29/17 19:00 07:00 Intake Total 781.0 ml 268.95 ml Balance 781.0 ml 268.95 ml Intake Oral 600 ml 120 ml IV Total 181.0 ml 148.95 ml # Voids 3 2 # Bowel Movements 2 Laboratory Tests Test 09/29/17 04:40 White Blood Count 7.3 K/UL (4.8-10.8) Red Blood Count 4.62 M/UL (4.20-5.40) Hemoglobin 13.3 G/DL (12.0-16.0) Hematocrit 40.2 % (37.0-47.0) Mean Corpuscular Volume 87 FL (80-99) Mean Corpuscular Hemoglobin 28.7 PG (27.0-31.0) Mean Corpuscular Hemoglobin Concent 33.0 G/DL (32.0-36.0) Red Cell Distribution Width 12.7 % (11.6-14.8) Platelet Count 210 K/UL (150-450) Mean Platelet Volume 7.0 FL (6.5-10.1) Neutrophils (%) (Auto) 71.9 % (45.0-75.0) Lymphocytes (%) (Auto) 13.5 % (20.0-45.0) L Monocytes (%) (Auto) 14.2 % (1.0-10.0) H Eosinophils (%) (Auto) 0.0 % (0.0-3.0) Basophils (%) (Auto) 0.4 % (0.0-2.0) Erythrocyte Sedimentation Rate 41 MM/HR (0-30) H Sodium Level 142 MMOL/L (136-145) Potassium Level 3.6 MMOL/L (3.5-5.1) Chloride Level 102 MMOL/L (98-107) Carbon Dioxide Level 33 MMOL/L (21-32) H Anion Gap 7 mmol/L (5-15) Blood Urea Nitrogen 13 mg/dL (7-18) Creatinine 0.8 MG/DL (0.55-1.30) Estimat Glomerular Filtration Rate mL/min (>60) Glucose Level 159 MG/DL (74-106) H Calcium Level 8.7 MG/DL (8.5-10.1) Phosphorus Level 3.0 MG/DL (2.5-4.9) Magnesium Level 1.8 MG/DL (1.8-2.4) Total Bilirubin 0.4 MG/DL (0.2-1.0) Aspartate Amino Transf (AST/SGOT) 19 U/L (15-37) Alanine Aminotransferase (ALT/SGPT) 17 U/L (12-78) Alkaline Phosphatase 54 U/L (46-116) C-Reactive Protein, Quantitative 0.7 mg/dL (0.00-0.90) Total Protein 6.9 G/DL (6.4-8.2) Albumin 2.6 G/DL (3.4-5.0) L Globulin 4.3 g/dL Albumin/Globulin Ratio 0.6 (1.0-2.7) L Microbiology Date/Time Source Procedure Growth Status 09/27/17 10:08 Blood Blood Culture - Preliminary NO GROWTH AFTER 24 HOURS Resulted 09/27/17 10:08 Blood Blood Culture - Preliminary NO GROWTH AFTER 24 HOURS Resulted 09/27/17 10:15 Nasal Nares Influenza Types A,B Antigen (GEOFF) - Final Complete Objective HEAD AND NECK: No JVD or carotid bruit. LUNGS: Diffuse wheezing. CARDIOVASCULAR: Regular S1 and S2 with no gallop or murmur. ABDOMEN: Soft and nontender. EXTREMITIES: No pitting edema. YAYA ALARCON Sep 29, 2017 13:06
--- NOTE | 2017-09-29 16:07 | Pulmonology Progress Note ---
Assessment/Plan Problems: (1) Asthma exacerbation (2) Pulmonary fibrosis (3) Elevated troponin Assessment/Plan improving taper steroids pt refused CT scan ( has chronic pulmonary fibrosis) check echo dc planning home Subjective ROS Limited/Unobtainable: No Interval Events: less short of breath Constitutional: Reports: no symptoms HEENT: Repors: no symptoms Allergies: Coded Allergies: CIPROFLOXACIN (Verified Allergy, Unknown, 09/27/17) Objective Last 24 Hour Vital Signs Date Time Temp Pulse Resp B/P (MAP) Pulse Ox O2 Delivery O2 Flow Rate FiO2 09/29/17 13:12 85 16 97 Room Air 09/29/17 13:07 84 16 93 Room Air 09/29/17 13:00 20 92 Room Air 09/29/17 12:00 89 09/29/17 12:00 97.9 89 20 120/53 97 Nasal Cannula 2.0 09/29/17 08:00 97.0 77 18 150/50 97 Nasal Cannula 2.0 09/29/17 07:46 83 09/29/17 07:16 76 16 98 Nasal Cannula 3.0 32 09/29/17 07:11 79 16 96 Nasal Cannula 3.0 32 09/29/17 07:11 Nasal Cannula 3.0 32 09/29/17 07:11 96 Nasal Cannula 3.0 32 09/29/17 05:28 75 09/29/17 04:00 97.3 86 18 108/61 93 Nasal Cannula 3.0 09/29/17 01:21 78 16 97 Nasal Cannula 3.0 32 09/29/17 01:11 87 18 94 Nasal Cannula 3.0 32 09/29/17 00:00 98.0 86 20 117/65 94 Nasal Cannula 3.0 09/28/17 23:55 88 09/28/17 20:26 80 16 98 Nasal Cannula 3.0 32 09/28/17 20:20 Nasal Cannula 3.0 32 09/28/17 20:19 95 Nasal Cannula 3.0 32 09/28/17 20:18 84 18 95 Nasal Cannula 3.0 32 09/28/17 20:00 97.4 73 20 107/76 94 Nasal Cannula 3.0 09/28/17 20:00 76 Intake and Output 09/28/17 09/29/17 19:00 07:00 Intake Total 781.0 ml 268.95 ml Balance 781.0 ml 268.95 ml Intake Oral 600 ml 120 ml IV Total 181.0 ml 148.95 ml # Voids 3 2 # Bowel Movements 2 Objective eneral Appearance: WD/WN, Lines, tubes and drains: peripheral HEENT: normocephalic Neck: non-tender, normal alignment Respiratory/Chest: chest wall non-tender, lungs clear, rhonchi - left, rhonchi - right Breasts: no masses Cardiovascular/Chest: normal peripheral pulses Abdomen: normal bowel sounds, non tender Genitourinary/Rectal: normal genital exam Extremities: normal range of motion Skin Exam: normal pigmentation Microbiology Date/Time Source Procedure Growth Status 09/27/17 10:08 Blood Blood Culture - Preliminary NO GROWTH AFTER 24 HOURS Resulted 09/27/17 10:08 Blood Blood Culture - Preliminary NO GROWTH AFTER 24 HOURS Resulted 09/28/17 17:50 Sputum Gram Stain - Final Resulted 09/28/17 17:50 Sputum Sputum Culture Pending Resulted 09/27/17 10:15 Nasal Nares Influenza Types A,B Antigen (GEOFF) - Final Complete Laboratory Tests 09/29/17 04:40: White Blood Count 7.3, Red Blood Count 4.62, Hemoglobin 13.3, Hematocrit 40.2, Mean Corpuscular Volume 87, Mean Corpuscular Hemoglobin 28.7, Mean Corpuscular Hemoglobin Concent 33.0, Red Cell Distribution Width 12.7, Platelet Count 210, Mean Platelet Volume 7.0, Neutrophils (%) (Auto) 71.9, Lymphocytes (%) (Auto) 13.5L, Monocytes (%) (Auto) 14.2H, Eosinophils (%) (Auto) 0.0, Basophils (%) ( Auto) 0.4, Erythrocyte Sedimentation Rate 41H, Sodium Level 142, Potassium Level 3.6, Chloride Level 102, Carbon Dioxide Level 33H, Anion Gap 7, Blood Urea Nitrogen 13, Creatinine 0.8, Estimat Glomerular Filtration Rate , Glucose Level 159H, Calcium Level 8.7, Phosphorus Level 3.0, Magnesium Level 1.8, Total Bilirubin 0.4, Aspartate Amino Transf (AST/SGOT) 19, Alanine Aminotransferase ( ALT/SGPT) 17, Alkaline Phosphatase 54, C-Reactive Protein, Quantitative 0.7, Total Protein 6.9, Albumin 2.6L, Globulin 4.3, Albumin/Globulin Ratio 0.6L Current Medications Medications (Trade) Dose Ordered Sig/Ghislaine Route PRN Reason Start Time Stop Time Status Last Admin Dose Admin Albuterol/ Ipratropium (Albuterol/ Ipratropium) 3 ml Q4H PRN HHN dyspnea 09/27/17 13:30 10/02/17 13:29 Albuterol/ Ipratropium (Albuterol/ Ipratropium) 3 ml Q6HRT HHN 09/27/17 19:00 10/02/17 18:59 09/29/17 13:07 Dextrose (Dextrose 50%) STAT PRN IV Hypoglycemia 09/27/17 13:30 10/27/17 13:29 Docusate Sodium (Colace) 100 mg TWICE A DAY ORAL 09/28/17 18:00 10/28/17 17:59 Guaifenesin (Mucinex ER) 600 mg TWICE A DAY ORAL 09/27/17 18:00 10/27/17 17:59 09/29/17 09:32 Heparin Sodium (Porcine) (Heparin 5000 units/ml) 5,000 units EVERY 12 HOURS SUBQ 09/27/17 21:00 10/27/17 20:59 09/29/17 09:34 Lorazepam (Ativan 2mg/ml 1ml) 0.5 mg Q4H PRN IV For Anxiety 09/27/17 13:30 10/04/17 13:29 Methylprednisolone Sodium Succinate (Solu-MEDROL) 60 mg EVERY 12 HOURS IV 09/28/17 21:00 10/27/17 17:59 09/29/17 09:32 Morphine Sulfate (Morphine Sulfate) 2 mg Q4H PRN IVP severe pain 7-10 09/27/17 13:30 10/04/17 13:29 Nitroglycerin (Ntg) 0.4 mg Q5M X 3 DOSES PRN SL Prn Chest Pain 09/27/17 13:30 10/27/17 13:29 Ondansetron HCl (Zofran) 4 mg Q6H PRN IVP Nausea & Vomiting 09/27/17 13:30 10/27/17 13:29 Piperacillin Sod/ Tazobactam Sod 3.375 gm/Sodium Chloride 110 ml @ 27.5 mls/hr EVERY 8 HOURS IVPB 09/27/17 18:00 10/02/17 17:59 09/29/17 05:35 Polyethylene Glycol (Miralax) 17 gm DAILYPRN PRN ORAL Constipation 09/28/17 10:45 10/28/17 10:44 Promethazine HCl/ Codeine (Phenergan with Codeine) 5 ml Q6H PRN ORAL cough 09/27/17 13:30 10/27/17 13:29 Temazepam (Restoril) 15 mg HSPRN PRN ORAL Insomnia 09/27/17 13:30 10/04/17 13:29 EDITH STACK Sep 29, 2017 16:07
--- NOTE | 2017-09-29 16:11 | Discharge Summary ---
Discharge Summary Hospital Course Date of Admission Sep 27, 2017 at 10:37 Date of Discharge 09/29/17 Admitting Diagnosis hypoxia/asthma Reason for Hospitalization: acute hypoxic respiratory failure, asthma exacerbation HPI 77y/o female with pmh of asthma who presents with SOB and cough. Cough productive of white mucus. Pt states she has been having symptoms for the past few days but worsened today. She has been using her albuterol rescue inhaler w/ o relief. Denies f/c, n/v, d/c, chest pain, abd pain, dysuria. Denies recent travel or sick contacts. Did not get flue shot this year and does not want it. Got the pneumovax. Does not smoke. Pt states she has an a pulmonary workup at [facility] abt 1 year ago and declines further testing including CT scan. In ED pt noted to be hypoxic to 79% on room air. She was also tachypneic and using accessory muscles. Placed on BiPAP with improvement. Given solumedrol 125mg IV, nebulizers. Concern for pneumonia on CXR. Pt was given ceftriaxone and azithro.. Consultations Pulmonology, Cardiology Hospital Course Pt was admitted and started on IV anbitioics, IV steroids and nebulizer treatments around the clock. She was weaned off the BiPAP and on to O2 vial nasal cannula. Pulmonology recommended CT chest given pt with interstitial changes on CXR but pt refused. It is possible pt may have interstitial lung disease and/or pulmonary fibrosis. Once weaned off O2, she was discharged home with PO antibiotics and PO steroids to complete course. Pt also with elevated troponin and was seen by cardiology. TTE showed normal EF and moderate pulmonary hypertension. Discharge Medications New Medications: Amoxicillin/Potassium Clav 875-125* (Augmentin 875-125 Tablet*) 1 Each Tablet 1 TAB ORAL TWICE A DAY for 7 Days, #14 TAB Fluticasone/Salmeterol (Advair 100-50 Diskus) 1 Each Blst.w.dev 1 PUFF INH TWICE A DAY for 30 Days, #1 EA 3 Refills Prednisone* (Prednisone*) 20 Mg Tablet 40 MG ORAL DAILY for 5 Days, #10 TAB Ipratropium/Albuterol Sulfate (DuoNeb 0.5-3(2.5)mg/3ml) 3 Ml Ampul.neb 3 ML HHN Q6HRT for 30 Days, #30 EA 3 Refills Continued Medications: Albuterol Sulfate (Ventolin Hfa) 18 Gm Hfa.aer.ad 2 PUFFS INH EVERY 6 HOURS for Shortness of Breath, #18 GM 0 Refills Discharge Condition Upon Discharge: stable Discharge Disposition Patient was discharged to Home with Home Health(06) Discharge Diagnoses: (1) Acute respiratory failure with hypoxia (2) Asthma exacerbation (3) Community acquired pneumonia (4) NSTEMI (non-ST elevated myocardial infarction) (5) Moderate to severe pulmonary hypertension Darshan Watts M.D. Sep 29, 2017 16:11
--- NOTE | 2017-10-01 17:02 | Cardiology Report ---
APPROVED REPORT EKG Measurement Heart [id number] Normal sinus rhythm Normal ECG
== END 2017-09-29 15:11 | disposition home health service (06) | DRG 189 ==
LOC: EMR 10:27 → 2W 10:37 → EDBEDREQSVC 11:42 → EDBEDREQ 15:52
PROC: 5A09357 Assistance with Respiratory Ventilation, Less than 24 Consecutive Hours, Continuous Positive Airway Pressure (ICD-10-PCS; principal; 2017-09-27)
DX: J96.01 Acute respiratory failure with hypoxia (principal); I21.4 Non-ST elevation (NSTEMI) myocardial infarction; J18.9 Pneumonia, unspecified organism; I27.20 Pulmonary hypertension, unspecified; J84.10 Pulmonary fibrosis, unspecified; J45.901 Unspecified asthma with (acute) exacerbation; Z88.1 Allergy status to other antibiotic agents
CPT/HCPCS: 36415; 36600; 71045; 80048; 80053; 80061; 82550; 82553; 82803; 83036; 83735; 83880; 84100; 84439; 84443; 84484; 85007; 85025; 85651; 86140; 86710; 87040; 87070; 87205; 93005; 93306; 94640; 94760; J7620

== ENCOUNTER 2020-04-10 22:00 | Inpatient (IN) | payer MEDICARE ==
[~2020-04-10] VITALS: Ht 157.5 cm; Wt 62.8 kg
[~2020-04-10 22:00] MED LIST: ADVAIR 100-501 EACH INH; AUGMENTIN 875-1 EAC1 ORAL; DUONEB 0.5-3(2.53 ML HHN; PREDNISONE20 MG ORAL; VENTOLIN HFA18 GM INH
[2020-04-10] MEDS ORDERED: FUROSEMIDE20 M1 ORAL (22:12)
[2020-04-10 22:19] VITALS: BP 117/64
--- NOTE | 2020-04-10 22:19 | NUR ---
ED Nurse Note: pt ambulated into ed from home CO SOB x 3 days. Pt states she has been using her inhaler at home but SOB is unrelieved. Pt denies pain, n/v/d/fever. Pt has edema in legs bilaterally. Pt aao x 4, can ambulate with assistance only. Pt placed in gown, on monitor, and on 3L NC d/t Spo2 83%. Awaiting ERMD at bedside. IV line initiated, blood drawn and sent to lab.
--- NOTE | 2020-04-10 22:25 | NUR ---
ED Nurse Note: COVID 19 swab sent to lab
--- NOTE | 2020-04-10 22:27 | Emergency Room Report ---
History of Present Illness General Chief Complaint: Dyspnea/Respdistress Source: Patient Present Illness [facility] This is an 80-year-old female with history of CHF and also history of asthma. She presents with chief complaint of shortness of breath and asthma exacerbation. Onset for the last 4 days and worsening today. Worse with exertion. Worse with lying flat. No relief with her nebulizer treatment. Denies any fever or chills. Cough is productive of whitish phlegm. Denies any chest pain. Denies any nausea vomiting or diarrhea. Allergies: Coded Allergies: CIPROFLOXACIN (Verified Allergy, Unknown, 09/27/17) COVID-19 Screening Contact w/high risk pt: No Experienced COVID-19 symptoms?: Yes COVID-19 Testing performed SUSTAINABILITY COMMUNICATOR: No Patient History Past Medical History: see triage record, old chart reviewed, CHF, asthma Past Surgical History: none Pertinent Family History: none Now: No Immunizations: other Reviewed Nursing Documentation: PMH: Agreed; PSxH: Agreed Nursing Documentation-PMH Hx Cardiac Problems: Yes - CHF Hx Asthma: Yes Hx Cancer: No Hx Gastrointestinal Problems: No Hx Neurological Problems: No Review of Systems Eye: Denies: eye pain, blurred vision ENT: Denies: ear pain, nose congestion, throat swelling Respiratory: Reports: cough, shortness of breath, sputum Cardiovascular: Denies: chest pain, palpitations Gastrointestinal: Denies: abdominal pain, diarrhea, nausea, vomiting Musculoskeletal: Denies: back pain, joint pain Skin: Denies: rash Neurological: Denies: headache, numbness Endocrine: Denies: increased thirst, increased urine Hematologic/Lymphatic: Denies: easy bruising All Other Systems: negative except mentioned in HPI Physical Exam Vital Signs Date Time Temp Pulse Resp B/P (MAP) Pulse Ox O2 Delivery O2 Flow Rate FiO2 04/10/20 22:09 97.5 130 35 117/64 (81) 80 Room Air Vitals with hypoxia Sp02 EP Interpretation: reviewed, abnormal General Appearance: alert, mild distress, thin Head: normocephalic, atraumatic Eyes: bilateral eye PERRL, bilateral eye EOMI ENT: hearing grossly normal, normal pharynx Neck: full range of motion, supple, no meningismus Respiratory: chest non-tender, respiratory distress, decreased breath sounds, rales, rhonchi Cardiovascular #1: regular rate, rhythm, no murmur Gastrointestinal: normal bowel sounds, non tender, no mass, no organomegaly, no bruit, non-distended Musculoskeletal: back normal, normal range of motion, gait/station normal, swelling - 2+ pitting edema Psychiatric: mood/affect normal Procedures Critical Care Time Critical Care Time Critical care is mandated in this patient who presented with acute respiratory distress and hypoxia secondary to covid pneumonia. Patient require my urgent intervention to attenuate the risks of metabolic collapse which may lead to cardiovascular collapse and . Critical care time is 35 minutes excluding any reportable procedure. Critical care time included evaluation, multiple reevaluation, looking at old charts, interpreting laboratory and diagnostic data , discussing case with patient and family and consultants, and charting. Medical Decision Making Diagnostic Impression: Primary Impression: Acute respiratory failure with hypoxia Additional Impressions: Pneumonia due to COVID-19 virus Acute respiratory distress syndrome (ARDS) due to COVID-19 virus CHF exacerbation Qualified Codes: I50.9 - Heart failure, unspecified Asthma exacerbation Qualified Codes: J45.901 - Unspecified asthma with (acute) exacerbation ACS (acute coronary syndrome) ER Course Patient presents with failure with hypoxia secondary to COVID pneumonia. Oxygenation on room air was hypoxic. Better with oxygen. Antibiotics given. Also gave her steroid and Lovenox here. Her intermediate troponin is probably secondary to demand ischemia. Prognosis poor because of her age and underlying respiratory issue. Previous visit showed that she has pulmonary fibrosis. I contacted Dr. Jefferson for admission. EKG Diagnostic Results Rate: tachycardiac Rhythm: NSR ST Segments: other - NSST changes Rhythm Strip Diag. Results EP Interpretation: yes Rate: 110 Rhythm: NSR, no PVC's, no ectopy Chest X-Ray Diagnostic Results Chest X-Ray Diagnostic Results : Chest X-Ray Ordered: Yes # of Views/Limited/Complete: 1 View Indication: Shortness of Breath EP Interpretation: Yes Interpretation: no pneumothorax, other - Multi lobar infiltrates. Underlying effusion. Impression: Other - Multi lobar infiltrates Electronically Signed by: Travis Galvan MD Last Vital Signs Date Time Temp Pulse Resp B/P (MAP) Pulse Ox O2 Delivery O2 Flow Rate FiO2 04/10/20 22:09 97.5 130 35 117/64 (81) 80 Room Air Status: improved Disposition: ADMITTED INPATIENT Condition: Serious Travis Galvan MD Apr 10, 2020 22:27
[2020-04-10] MEDS ORDERED: Ipratropium 0.02% Inh Soln 2.5ml UD HHN ONE (22:30)
[2020-04-10] MEDS ORDERED: Solu-MEDROL 125mg Inj IVP ONE (22:30)
[2020-04-10] MEDS ORDERED: Albuterol ud Inhalation HHN ONE (22:30)
--- NOTE | 2020-04-10 22:30 | NUR ---
ED Nurse Note: All medications administered, pt tolerated well no ss of distress noted. will continue to monitor.
--- NOTE | 2020-04-10 22:32 | NUR ---
ED Nurse Note: RT at bedside for breathing tx
--- NOTE | 2020-04-10 22:50 | NUR ---
ED Nurse Note: xray at bedside
[2020-04-10 23:00] LABS: BASOPHILS % (AUTO) 0.5 % (0.0-2.0); EOSINOPHILS % (AUTO) 0.3 % (0.0-3.0); HEMATOCRIT 40.7 % (37.0-47.0); HEMOGLOBIN 12.5 G/DL (12.0-16.0); LYMPHOCYTES % (AUTO) 17.1 % (20.0-45.0); MEAN CORPUSCULAR VOLUME 90 FL (80-99); MONOCYTES % (AUTO) 10.7 % (1.0-10.0); NEUTROPHILS % (AUTO) 71.5 % (45.0-75.0); PLATELET COUNT 274 K/UL (150-450); RED BLOOD COUNT 4.52 M/UL (4.20-5.40); RED CELL DISTRIBUTION WIDTH 17.1 % (11.6-14.8); WHITE BLOOD COUNT 5.9 K/UL (4.8-10.8)
--- NOTE | 2020-04-10 23:00 | NUR ---
ED Nurse Note: pt assisted to bedside commode. Pt able to provide UA at this time. UA sent to lab. Pt assisted back into bed, VSS no ss of distress noted. pt tolerated well. Will continue to monitor.
[2020-04-10 23:21] LABS: ALANINE AMINOTRANSFERASE 24 U/L (12-78); ALBUMIN 2.1 G/DL (3.4-5.0); ALBUMIN/GLOBULIN RATIO 0.3 (1.0-2.7); ALKALINE PHOSPHATASE 304 U/L (46-116); ANION GAP 3 mmol/L (5-15); ASPARTATE AMINO TRANSFERASE 33 U/L (15-37); BILIRUBIN,TOTAL 0.6 MG/DL (0.2-1.0); BLOOD UREA NITROGEN 17 mg/dL (7-18); CHLORIDE 97 MMOL/L (98-107); CREATININE 1.1 MG/DL (0.55-1.30); SODIUM 142 MMOL/L (136-145)
[2020-04-10 23:23] LABS: CARBON DIOXIDE 42 MMOL/L (21-32)
--- NOTE | 2020-04-10 23:25 | Diagnostic Imaging Report ---
EXAM: XR Chest, 1 View CLINICAL HISTORY: SOB TECHNIQUE: Frontal view of the chest. COMPARISON: 09/27/17 FINDINGS: Lungs: Extensive bilateral patchy airspace consolidations predominantly in the right midlung and left base concerning for multifocal pneumonia. Background baseline reticular interstitial prominence likely reflects chronic interstitial lung disease, although this is not as well delineated on current study as on prior. Cardiac silhouette at least partially obscured due to consolidative opacities. Pleural space: Small left pleural effusion. No pneumothorax. Heart: Unremarkable. No cardiomegaly. Mediastinum: Unremarkable. Bones/joints: No acute abnormality IMPRESSION: 1. Extensive bilateral patchy airspace consolidations predominantly in the right midlung and left base concerning for multifocal pneumonia. 2. Background baseline reticular interstitial prominence likely reflects chronic interstitial lung disease, although this is not as well delineated on current study as on prior. 3. Small left pleural effusion. 4. If there is continued concern, consider CT. 5. Cardiac silhouette at least partially obscured due to consolidative opacities. 6. Recommend follow-up to radiographic resolution.
[2020-04-10] MEDS ORDERED: Enoxaparin 80mg Inj SUBQ ONE (23:30)
[2020-04-10] MEDS ORDERED: Aspirin Baby 81mg ORAL ONE (23:30)
[2020-04-10] MEDS ORDERED: cefTRIAXone 1 GM in NS 55 ML IVPB ONE (23:30)
[2020-04-10] MEDS ORDERED: Azithromycin 500 MG in NS 275 ML IV ONE (23:30)
--- NOTE | 2020-04-10 23:30 | NUR ---
ED Nurse Note: all medications administered, pt tolerated well no ss of distress noted. will continue to monitor.
[2020-04-11 00:01] VITALS: BP 105/62
[2020-04-11 00:46] LABS: APPEARANCE,URINE CLEAR; COLOR,URINE YELLOW; PROTEIN,URINE NEGATIVE (NEGATIVE)
[2020-04-11 00:47] LABS: BILIRUBIN, URINE NEGATIVE (NEGATIVE); GLUCOSE, URINE (UA) NEGATIVE (NEGATIVE); KETONES,URINE NEGATIVE (NEGATIVE); LEUKOCYTE ESTERASE ,URINE NEGATIVE (NEGATIVE); NITRITE,URINE NEGATIVE (NEGATIVE); UROBILINOGEN,URINE NORMAL MG/DL (0.0-1.0)
--- NOTE | 2020-04-11 01:11 | Emergency Room Report ---
Sepsis Event Note Evaluation Current Stage of Sepsis: Sepsis Possible Source: Pulmonary Focused Exam Allergies: Coded Allergies: CIPROFLOXACIN (Verified Allergy, Unknown, 09/27/17) Date Exam Occurred: Apr 11, 2020 Time Exam Occurred: 01:11 Laboratory Studies Laboratory Tests Test 04/10/20 22:30 04/11/20 00:04 White Blood Count 5.9 K/UL (4.8-10.8) Red Blood Count 4.52 M/UL (4.20-5.40) Hemoglobin 12.5 G/DL (12.0-16.0) Hematocrit 40.7 % (37.0-47.0) Mean Corpuscular Volume 90 FL (80-99) Mean Corpuscular Hemoglobin 27.6 PG (27.0-31.0) Mean Corpuscular Hemoglobin Concent 30.6 G/DL (32.0-36.0) L Red Cell Distribution Width 17.1 % (11.6-14.8) H Platelet Count 274 K/UL (150-450) Mean Platelet Volume 5.6 FL (6.5-10.1) L Neutrophils (%) (Auto) 71.5 % (45.0-75.0) Lymphocytes (%) (Auto) 17.1 % (20.0-45.0) L Monocytes (%) (Auto) 10.7 % (1.0-10.0) H Eosinophils (%) (Auto) 0.3 % (0.0-3.0) Basophils (%) (Auto) 0.5 % (0.0-2.0) D-Dimer 2.55 mg/L FEU (0.00-0.49) H Sodium Level 142 MMOL/L (136-145) Potassium Level 4.0 MMOL/L (3.5-5.1) Chloride Level 97 MMOL/L (98-107) L Carbon Dioxide Level 42 MMOL/L (21-32) *H Anion Gap 3 mmol/L (5-15) L Blood Urea Nitrogen 17 mg/dL (7-18) Creatinine 1.1 MG/DL (0.55-1.30) Estimat Glomerular Filtration Rate 57.9 mL/min (>60) Glucose Level 104 MG/DL (74-106) Lactic Acid Level 1.70 mmol/L (0.4-2.0) Calcium Level 9.0 MG/DL (8.5-10.1) Total Bilirubin 0.6 MG/DL (0.2-1.0) Aspartate Amino Transf (AST/SGOT) 33 U/L (15-37) Alanine Aminotransferase (ALT/SGPT) 24 U/L (12-78) Alkaline Phosphatase 304 U/L (46-116) H Troponin I 0.128 ng/mL (0.000-0.056) C-Reactive Protein, Quantitative 9.5 mg/dL (0.00-0.90) H Pro-B-Type Natriuretic Peptide 5945 pg/mL (0-125) H Total Protein 8.4 G/DL (6.4-8.2) H Albumin 2.1 G/DL (3.4-5.0) L Globulin 6.3 g/dL Albumin/Globulin Ratio 0.3 (1.0-2.7) L Urine Color Yellow Urine Appearance Clear Urine pH 7.0 (4.5-8.0) Urine Specific [place] 1.005 (1.005-1.035) Urine Protein Negative (NEGATIVE) Urine Glucose (UA) Negative (NEGATIVE) Urine Ketones Negative (NEGATIVE) Urine Blood Negative (NEGATIVE) Urine Nitrite Negative (NEGATIVE) Urine Bilirubin Negative (NEGATIVE) Urine Urobilinogen Normal MG/DL (0.0-1.0) Urine Leukocyte Esterase Negative (NEGATIVE) Vital Signs Last 24 Hour Vital Signs Date Time Temp Pulse Resp B/P (MAP) Pulse Ox O2 Delivery O2 Flow Rate FiO2 04/11/20 00:01 97.5 119 39 105/62 93 Nasal Cannula 3.0 32 04/10/20 22:39 122 25 100 Nasal Cannula 3.0 32 121 25 97 04/10/20 22:19 130 35 Nasal Cannula 4.0 04/10/20 22:19 97.5 130 35 117/64 80 Nasal Cannula 4.0 04/10/20 22:09 97.5 130 35 117/64 (81) 80 Room Air Respiratory Exam: Rhonchi Cardiovascular Exam: RRR Capillary Refill: Less Than 2 Seconds Peripheral Pulse: Strong Pulse Location: Carotid Skin Exam: Normal Turgor Travis Galvan MD Apr 11, 2020 01:11
[2020-04-11] MEDS ORDERED: Albuterol 90mcg Inhaler 8gm INH PRN (01:15)
--- NOTE | 2020-04-11 01:47 | NUR ---
ED Nurse Note: Report given to DAMIAN Tena on telemetry unit.
--- NOTE | 2020-04-11 01:55 | NUR ---
NURSE NOTES: Patient received from Tricia SALGADO. Patient in stable condition. Alert and oriented x4. cardiac monitor in place. Vital signs stable upon arrival. Patient was brought in via gurney. On 4L of nasal cannula saturating well at 97%. Belongings list checked and signed. IV site patent and intact at Right AC 20G SL. Bed in lowest position and locked. Patient wearing yellow gown and socks. Bilateral legs edema present upon admission. No s/s of distress. Call light and bedside table within reach. Will continue plan of care.
--- NOTE | 2020-04-11 01:55 | NUR ---
ER DISCHARGE NOTE: Patient is cleared to be discharged to telemetry unit per ERMD, pt is aox4, 93% on 4L NC, with stable vital signs. pt was given dc instructions, pt was able to verbalize understanding. pt is able to ambulate with steady gait. pt took all belongings. Report given to DAMIAN Tena on telemetry unit. Pt transported to unit with 1 RN and 1 BRIDGE WORKER APPRENTICE on monitor.
--- NOTE | 2020-04-11 02:30 | NUR ---
NURSE NOTES: Called Primary MD for admitting orders. Awaiting call back.
--- NOTE | 2020-04-11 03:30 | NUR ---
NURSE NOTES: Called back Primary MD to follow up orders. Left a message. Awaiting call back
[2020-04-11 04:00] VITALS: BP 103/67
--- NOTE | 2020-04-11 04:49 | NUR ---
NURSE NOTES: Informed MD of patient's HR of 134 ST with SVT and PACs. Awaiting callback
--- NOTE | 2020-04-11 07:22 | NUR ---
NURSE HAND-OFF REPORT: Important Events on Shift:[HR 134 doctor aware] Patient Status: [Stable] Diet: [Regular Diet] Pending Orders: [] Pending Results/Labs:[CXR CBC BMP ABG] Pending MD notification:[] Latest Vital Signs: Temperature 96.6 , Pulse 104 , B/P 103 /67 , Respiratory Rate 20 , O2 SAT 96 , Nasal Cannula, O2 Flow Rate 4.0 . Vital Sign Comment: [] EKG Rhythm: Sinus Tachy with SVT and PACs Rhythm change?: Tracy MCCRACKEN Notified?: Tracy Jefferson MD Response: Message left await call Latest Lechuga Fall Score: 45 Fall Risk: High Risk Safety Measures: Call light , Bed Alarm Zone 1, Side Rails Side Rails x1, Bed position Low and Locked. Fall Precautions: Yellow Socks Yellow Gown Door Sign Patient Fall Education Report given to [Mary RN.].
--- NOTE | 2020-04-11 07:26 | NUR ---
NURSE NOTES: Received patient in bed awake. IV line intact. O2 via NC in place, no SOB or acute distress. BLE edema noted, kept elevated. HOB elevated. Bed locked in low position. Call light within reach. Will continue plan of care.
--- NOTE | 2020-04-11 07:46 | NUR ---
NURSE NOTES: Notified Dr Cameron for Remdezivir orders as per Dr Jefferson. Awaiting callback.
[2020-04-11 08:00] VITALS: BP 101/61
--- NOTE | 2020-04-11 08:32 | Diagnostic Imaging Report ---
EXAM: XR Chest, 1 View CLINICAL HISTORY: ASTHMA TECHNIQUE: Frontal view of the chest. COMPARISON: No relevant prior studies available. FINDINGS/IMPRESSION: Extensive patchy bilateral airspace opacities consistent with multifocal infiltrate. Follow-up chest radiograph recommended. Small bilateral pleural effusions. No pneumothorax. Cardiomegaly. Calcified aorta.
[2020-04-11 08:37] LABS: ANION GAP 2 mmol/L (5-15); BLOOD UREA NITROGEN 19 mg/dL (7-18); CHLORIDE 98 MMOL/L (98-107); CREATININE 1.1 MG/DL (0.55-1.30); POTASSIUM 4.4 MMOL/L (3.5-5.1); SODIUM 143 MMOL/L (136-145)
[2020-04-11 08:39] LABS: CARBON DIOXIDE 44 MMOL/L (21-32)
--- NOTE | 2020-04-11 08:40 | NUR ---
NURSE NOTES: ABG results relayed to Dr Jefferson, no new orders. Co2 [address] Jefferson, awaiting response. Addendum: 04/11/20 at 0845 by Mary Pineda RN NURSE NOTES: No new orders for CO2.
[2020-04-11 09:00] LABS: BASOPHILS % (AUTO) 0.5 % (0.0-2.0); EOSINOPHILS % (AUTO) 0.1 % (0.0-3.0); HEMATOCRIT 38.2 % (37.0-47.0); HEMOGLOBIN 11.6 G/DL (12.0-16.0); MEAN CORPUSCULAR VOLUME 89 FL (80-99); MONOCYTES % (AUTO) 4.7 % (1.0-10.0); NEUTROPHILS % (AUTO) 79.8 % (45.0-75.0); PLATELET COUNT 280 K/UL (150-450); RED BLOOD COUNT 4.29 M/UL (4.20-5.40); RED CELL DISTRIBUTION WIDTH 16.3 % (11.6-14.8); WHITE BLOOD COUNT 4.2 K/UL (4.8-10.8)
[2020-04-11] MEDS ORDERED: Augmentin 875mg Tab ORAL SCH (09:00)
[2020-04-11] MEDS ORDERED: Enoxaparin 40mg Inj SUBQ SCH (09:00)
[2020-04-11 09:24] LABS: ALANINE AMINOTRANSFERASE 25 U/L (12-78); ALBUMIN 2.2 G/DL (3.4-5.0); ALKALINE PHOSPHATASE 294 U/L (46-116); ASPARTATE AMINO TRANSFERASE 35 U/L (15-37); BILIRUBIN,DIRECT 0.2 MG/DL (0.0-0.3); BILIRUBIN,TOTAL 0.6 MG/DL (0.2-1.0)
--- NOTE | 2020-04-11 09:45 | History and Physical Report ---
DATE OF ADMISSION: 04/10/2020 REASON FOR ADMISSION: COVID pneumonia, respiratory distress. HISTORY OF PRESENT ILLNESS: This is an 80-year-old female, brought in through the emergency room. The patient also with history of CHF, history of asthma. The patient with noted shortness of breath, worsening overall. The patient denies any fevers or chills. Cough is productive. No nausea or vomiting. The patient seen and evaluated. Swab for COVID turned out to be positive. Patient is now in isolation telemetry. Patient is requiring oxygen and is currently on 30% FiO2. PAST MEDICAL HISTORY: CHF, history of asthma, possible COPD. MEDICATIONS: Reviewed. ALLERGIES: Reviewed. PHYSICAL EXAMINATION: GENERAL: A well-developed female, advanced age. VITAL SIGNS: Reviewed. Currently afebrile, 96% on 4 liters, blood pressure 101/61, heart rate 100. HEENT: Negative. NECK: Supple. The remaining exam was deferred due to COVID positive. LABORATORY DATA: Reviewed. White count 4.2, platelets of 280. Chemistries noted. Bicarbonate 0.4, BUN 19, creatinine 1.1. Troponin 0.28. Chest x-ray with fluffy infiltrates. IMPRESSION: 1. COVID positive. 2. History of CHF. 3. Elevated troponin, possible demand ischemia. 4. History of likely COPD with chronic CO2 retention. 5. Elevated D-dimer. RECOMMENDATION: ID evaluation for possible remdesivir. Albuterol inhaler as needed, dexamethasone 6 mg IV push daily, Lovenox, Lasix, and monitor clinically. Continue Advair from home. Close monitoring for further respiratory deterioration and await further recommendations. Aaron Jefferson M.D. DR: DIANA JOB#: [id number] CC: [email or web address]
--- NOTE | 2020-04-11 10:28 | NUR ---
CASE MANAGEMENT:INITIAL REVIEW 80 YR OLD FEMALE FROM HOME CC;DYSPNEA. RESPIRATORY DISTRESS. SI;COVID-19 PNEUMONIA. CHF EXACERBATION. 97.5 130 35 105/62 80% ON RA ~ PLACED ON 4L NC FIO2 @ 32% CL 97 CO2 42 ANION GAP 3 ALK PHOS 304 BNP 5945 ALB 2.1 D-DIMER 2.55 UA ~ NEGATIVE ABG ~ pCO2 64.5 HCO3 40.4 BASE EXCESS 13.3 COVID-19 RAPID ~ POSITIVE CXR~1. Extensive bilateral patchy airspace consolidations predominantly in the right midlung and left base concerning for multifocal pneumonia. 2. Background baseline reticular interstitial prominence likely reflects chronic interstitial lung disease, although this is not as well delineated on current study as on prior. 3. Small left pleural effusion. 4. If there is continued concern, consider CT. 5. Cardiac silhouette at least partially obscured due to consolidative opacities. 6. Recommend follow-up to radiographic resolution. BLOOD CX ~ RESULTS PENDING IS;SOLU-MEDROL IV LASIX IV DUO NEB HHN ZITHROMAX IV ROCEPHIN IV ASA PO DEXAMETHASONE IV LOVENOX SUBQ PROVENTIL INH ADMITTED TO TELE 04/11/20 @ 0114 TELEMETRY STATUS DCP;FROM HOME PLAN; 2D ECHO ABX Addendum: 04/11/20 at 1043 by XIMENA MONROY LVN LVN INTERQUAL CRITERIA MET
[2020-04-11] MEDS: Wixela 100/50 Inhaler - 60 dose INH SCH ×2 (10:42→17:55)
--- NOTE | 2020-04-11 11:29 | Consultation ---
DATE OF CONSULTATION: 04/11/2020 INFECTIOUS DISEASE CONSULTATION CONSULTING PHYSICIAN: Camilo Cameron MD. REFERRING PHYSICIAN: Aaron Jefferson MD. REASON FOR CONSULTATION: COVID-19 pneumonia. HISTORY OF PRESENTING ILLNESS: This is an 80-year-old lady with history of congestive heart failure and asthma, who came in with shortness of breath along with cough. She denies any fever or chills. She had some vomiting. She was found to be COVID-19 positive and an Infectious Disease consultation has been obtained for antibiotics. PAST MEDICAL HISTORY: 1. History of congestive heart failure. 2. History of asthma. 3. COPD. SOCIAL HISTORY: She does not smoke, drink, or use drugs. FAMILY HISTORY: Noncontributory. REVIEW OF SYSTEMS: RESPIRATORY: She denies any fever or chills. She has cough. She has shortness of breath. No chest pain. CARDIAC: No chest pain. No palpitation. No dizziness. No syncope. GASTROINTESTINAL: She had nausea and vomiting yesterday. No abdominal pain or diarrhea. MEDICATIONS: As an inpatient, she is on albuterol and ipratropium, albuterol, dexamethasone, enoxaparin, Protonix, Augmentin, fluticasone, salmeterol, Lasix, Tylenol, Mylanta. ALLERGIES: To ciprofloxacin noted. PHYSICAL EXAMINATION: VITAL SIGNS: Temperature 97.5, T-max of 97.5, pulse of 100, respiratory rate rate 20, blood pressure 101/61. O2 saturation of 96% on 4 liters of oxygen. Examination deferred due to COVID-19 LABORATORY AND DIAGNOSTIC DATA: White count 4.2, hemoglobin 11.6, hematocrit 38.2, MCV 89, platelet count 280,000, neutrophils of 79%. Sodium 143, potassium 4.4, chloride 98, bicarb 44, BUN 19, creatinine 1.1. Glucose 147. Calcium 9. Total bilirubin 0.6, direct bilirubin 0.2, AST 35, ALT 25, alkaline phosphatase 294. C-reactive protein 9.5. Troponin 0.128. Total protein 8.5, albumin 2.2. Beta-natriuretic peptide 5945. COVID-19 test was positive. Chest x-ray is showing extensive patchy bilateral airspace opacities consistent with multifocal infiltrate, small bilateral pleural effusions, cardiomegaly noted. ASSESSMENT: This is an 80-year-old lady with history of congestive heart failure, asthma, chronic obstructive pulmonary disease, who comes in with cough, shortness of breath, nausea and vomiting and found to have, 1. COVID-19 pneumonia. She is on 4 liters of oxygen with O2 saturation of 96%. 2. Congestive heart failure. 3. COPD. 4. Asthma. PLAN: 1. Discussed with the patient risks versus benefits of remdesivir, and the patient would like to think about it, but does not want to start it currently. 2. Continue Decadron which she is okay taking 8 more days. 3. We will follow up cultures. 4. Continue contact isolation. I would like to thank Dr. Jefferson for this consultation. Camilo Cameron M.D. DR: RENEE JOB#: [id number] CC:
[2020-04-11 12:00] VITALS: BP 100/62
[2020-04-11] MEDS: Albuterol 90mcg Inhaler 8gm INH SCH ×2 (12:58→17:55)
[2020-04-11 16:00] VITALS: BP 98/58
--- NOTE | 2020-04-11 16:18 | NUR ---
NURSE NOTES: pt troponin 0.122, Dr Perez notified no new order.
--- NOTE | 2020-04-11 17:10 | Cardiology Progress Note ---
Subjective DATE OF SERVICE: Apr 11, 2020 Wants to go home. Still very congested and hypoxic Troponin elevated Monitor: Ectopic atrial rhythm with episodes of NSVT and PAFib 2D Echo: EF 40% with moderate valvular regurgitation and Pulm HTN Objective Last 24 Hour Vital Signs Date Time Temp Pulse Resp B/P (MAP) Pulse Ox O2 Delivery O2 Flow Rate FiO2 04/11/20 12:00 97.9 98 20 100/62 (75) 100 04/11/20 09:00 Nasal Cannula 4.0 04/11/20 08:00 97.5 100 20 101/61 (74) 96 04/11/20 08:00 103 04/11/20 07:44 96 Nasal Cannula 4.0 36 04/11/20 04:00 96.6 104 20 103/67 (79) 96 04/11/20 04:00 134 04/11/20 02:30 Nasal Cannula 4.0 04/11/20 02:14 120 04/11/20 01:55 97.5 119 35 103/79 93 Nasal Cannula 4.0 32 04/11/20 00:01 97.5 119 39 105/62 93 Nasal Cannula 3.0 32 04/10/20 22:39 122 25 100 Nasal Cannula 3.0 32 121 25 97 04/10/20 22:19 130 35 Nasal Cannula 4.0 04/10/20 22:19 97.5 130 35 117/64 80 Nasal Cannula 4.0 04/10/20 22:09 97.5 130 35 117/64 (81) 80 Room Air No change to ROS from my note of 04/10/20 HEENT: normal ENT inspection RHYTHM: ST, Afib, VT LUNGS: bilateral rhonchi, coarse breath sounds CARDIAC: normal S1 and S2, systolic murmur, rapid rate, other - 1/6 systolic ABDOMEN: normal bowel sounds, non tender, soft EXTREMITIES: normal range of motion, trace edema Laboratory Tests Test 04/10/20 22:30 04/11/20 00:04 04/11/20 07:44 04/11/20 08:12 White Blood Count 5.9 K/UL (4.8-10.8) 4.2 K/UL (4.8-10.8) L Red Blood Count 4.52 M/UL (4.20-5.40) 4.29 M/UL (4.20-5.40) Hemoglobin 12.5 G/DL (12.0-16.0) 11.6 G/DL (12.0-16.0) L Hematocrit 40.7 % (37.0-47.0) 38.2 % (37.0-47.0) Mean Corpuscular Volume 90 FL (80-99) 89 FL (80-99) Mean Corpuscular Hemoglobin 27.6 PG (27.0-31.0) 27.0 PG (27.0-31.0) Mean Corpuscular Hemoglobin Concent 30.6 G/DL (32.0-36.0) L 30.3 G/DL (32.0-36.0) L Red Cell Distribution Width 17.1 % (11.6-14.8) H 16.3 % (11.6-14.8) H Platelet Count 274 K/UL (150-450) 280 K/UL (150-450) Mean Platelet Volume 5.6 FL (6.5-10.1) L 5.7 FL (6.5-10.1) L Neutrophils (%) (Auto) 71.5 % (45.0-75.0) 79.8 % (45.0-75.0) H Lymphocytes (%) (Auto) 17.1 % (20.0-45.0) L 15.0 % (20.0-45.0) L Monocytes (%) (Auto) 10.7 % (1.0-10.0) H 4.7 % (1.0-10.0) Eosinophils (%) (Auto) 0.3 % (0.0-3.0) 0.1 % (0.0-3.0) Basophils (%) (Auto) 0.5 % (0.0-2.0) 0.5 % (0.0-2.0) D-Dimer 2.55 mg/L FEU (0.00-0.49) H Sodium Level 142 MMOL/L (136-145) 143 MMOL/L (136-145) Potassium Level 4.0 MMOL/L (3.5-5.1) 4.4 MMOL/L (3.5-5.1) Chloride Level 97 MMOL/L (98-107) L 98 MMOL/L (98-107) Carbon Dioxide Level 42 MMOL/L (21-32) *H 44 MMOL/L (21-32) *H Anion Gap 3 mmol/L (5-15) L 2 mmol/L (5-15) L Blood Urea Nitrogen 17 mg/dL (7-18) 19 mg/dL (7-18) H Creatinine 1.1 MG/DL (0.55-1.30) 1.1 MG/DL (0.55-1.30) Estimat Glomerular Filtration Rate 57.9 mL/min (>60) 57.9 mL/min (>60) Glucose Level 104 MG/DL (74-106) 147 MG/DL (74-106) H Lactic Acid Level 1.70 mmol/L (0.4-2.0) Calcium Level 9.0 MG/DL (8.5-10.1) 9.0 MG/DL (8.5-10.1) Total Bilirubin 0.6 MG/DL (0.2-1.0) 0.6 MG/DL (0.2-1.0) Aspartate Amino Transf (AST/SGOT) 33 U/L (15-37) 35 U/L (15-37) Alanine Aminotransferase (ALT/SGPT) 24 U/L (12-78) 25 U/L (12-78) Alkaline Phosphatase 304 U/L (46-116) H 294 U/L (46-116) H Troponin I 0.128 ng/mL (0.000-0.056) 0.122 ng/mL (0.000-0.056) C-Reactive Protein, Quantitative 9.5 mg/dL (0.00-0.90) H Pro-B-Type Natriuretic Peptide 5945 pg/mL (0-125) H Total Protein 8.4 G/DL (6.4-8.2) H 8.5 G/DL (6.4-8.2) H Albumin 2.1 G/DL (3.4-5.0) L 2.2 G/DL (3.4-5.0) L Globulin 6.3 g/dL Albumin/Globulin Ratio 0.3 (1.0-2.7) L Urine Color Yellow Urine Appearance Clear Urine pH 7.0 (4.5-8.0) Urine Specific Carey 1.005 (1.005-1.035) Urine Protein Negative (NEGATIVE) Urine Glucose (UA) Negative (NEGATIVE) Urine Ketones Negative (NEGATIVE) Urine Blood Negative (NEGATIVE) Urine Nitrite Negative (NEGATIVE) Urine Bilirubin Negative (NEGATIVE) Urine Urobilinogen Normal MG/DL (0.0-1.0) Urine Leukocyte Esterase Negative (NEGATIVE) Arterial Blood pH 7.415 (7.350-7.450) Arterial Blood Partial Pressure CO2 64.5 mmHg (35.0-45.0) *H Arterial Blood Partial Pressure O2 96.1 mmHg (75.0-100.0) Arterial Blood HCO3 40.4 mmol/L (22.0-26.0) *H Arterial Blood Oxygen Saturation 96.5 % (95-100) Arterial Blood Base Excess 13.3 (-2-2) *H Francisco J Test Positive Direct Bilirubin 0.2 MG/DL (0.0-0.3) Microbiology Date/Time Source Procedure Growth Status 04/10/20 22:30 Nasopharynx SARS-CoV-2 RdRp Gene Assay - Final Complete Assessment/Plan Assessment/Plan Covid19 PNA Hypoxia Pulmonary fibrosis Chronic respiratory acidosis Acute myocardial ischemia Possible NSTE myocardial infarction Acute/chr systolic and diastolic CHF Non Sustained Ventricular Tachycardia PAFibrillation HIGH RISK Critical and guarded O2 Resp Rx Full anticoag steroids anti-plt rx avoid BBlockers due to lung dis Topical nitrates Start cardizem Diuresis as needed - diamox to stimulate respirations Simone Perez MD Apr 11, 2020 17:10
[2020-04-11] MEDS: dilTIAZem HCl CD 180mg cap ORAL SCH (17:41)
[2020-04-11] MEDS: Nitroglycerin 2% oint pkt TOPIC SCH (17:42)
[2020-04-11] MEDS: Eliquis 2.5mg tablet ORAL SCH (17:45)
--- NOTE | 2020-04-11 19:57 | NUR ---
NURSE HAND-OFF REPORT: Important Events on Shift:wants to go home, Dr Perez disapproved, Dr Jefferson to talk to patient tomorrow. Episode of afib and svt, Dr Perez aware Patient Status: alert Diet: reg Pending Orders: Pending Results/Labs: Pending MD notification: Latest Vital Signs: Temperature 97.7 , Pulse 105 , B/P 98 /58 , Respiratory Rate 20 , O2 SAT 99 , Nasal Cannula, O2 Flow Rate 4.0 . Vital Sign Comment: EKG Rhythm: SR, afib, 5 beats vtach Rhythm change?: Y Notified?: Y -Dr Chris MCCRACKEN Response: MD put in orders Latest Lechuga Fall Score: 45 Fall Risk: High Risk Safety Measures: Call light Within Reach, Bed Alarm Zone 1, Side Rails Side Rails x2, Bed position Low and Locked. Fall Precautions: Yellow Socks Yellow Gown Door Sign Patient Fall Education Report given to Lillian/Yudi SALGADO.
[2020-04-11 20:00] VITALS: BP 97/57
--- NOTE | 2020-04-11 20:06 | NUR ---
NURSE NOTES: Received report from Mary RN. Patient in bed laying semi-fowlers comfortable and awake. Nasal canula on at 4L/min Spo2 94%. No SOB or acute distress noted. Patient report no pain at this time. IV site intact and patent running NS @100ml/hr as ordered. No erythema or bleeding noted. HOB elevated. Bed locked in low position. Call light and belongings within reach. Patent educated to use call light ti call nurse of assistance to the bed side commode. Will continue plan of care.
--- NOTE | 2020-04-11 20:15 | Consultation ---
DATE OF CONSULTATION: 04/10/2020 CARDIOLOGY CONSULTATION CONSULTING PHYSICIAN: Simone Perez MD REFERRING PHYSICIAN: Aaron Jefferson M.D. REASON FOR CONSULTATION: Abnormal EKG and elevated troponin levels. HISTORY OF PRESENT ILLNESS: This is an 80-year-old female. She has a long-standing history of pulmonary fibrosis and lung disease. She has had 4 days of worsening shortness of breath. She has not been able to lie flat. She has been short of breath with activity. She has not improved with her usual nebulizer treatments. She has had a cough productive of white sputum. She has not noted any fevers or chest discomfort. The patient was seen in the emergency room and was noted to be COVID-19 positive. I have been asked to address her cardiovascular status at this time. PAST MEDICAL HISTORY: Pulmonary fibrosis, COPD, history of congestive heart failure, and degenerative valve disease. ALLERGIES: Ciprofloxacin. MEDICATIONS: Reviewed and reconciled. SOCIAL HISTORY: No current smoking or alcohol use. REVIEW OF SYSTEMS: No loss of vision or hearing. No history of abnormal blood clotting. No history of seizure or stroke. No change in bowel habits. No melena or bright red blood per rectum. No history of kidney disorder. No history of prior heart attack. Known history of valve disease. No history of diabetes or thyroid disorder. PHYSICAL EXAMINATION: VITAL SIGNS: Blood pressure 117/64, pulse 130, respirations 35, and afebrile. Room air oxygen saturation 80%. Accessory muscle use. LUNGS: Diminished breath sounds. Scattered rhonchi. CARDIAC: Regular rhythm. Rapid rate. Normal S1, S2. ABDOMEN: Soft. EXTREMITIES: Trace edema. Decreased capillary refill. LABORATORY AND DIAGNOSTIC DATA: EKG, ectopic atrial tachycardia with nonspecific ST change. Chest x-ray reveals bilateral infiltrates and consolidations, small pleural effusion on the left. Sodium 142, potassium 4, bicarb 42, BUN 17, creatinine 1.1. Pro-natriuretic peptide is almost 6000. Troponin 0.128. Albumin 2.1. White count is. 5.9, hemoglobin 12.5. ABG pending. IMPRESSION: 1. Respiratory failure. 2. Acute myocardial ischemia and possible vob-AZ-pcoosxdkk myocardial infarction. 3. Ectopic atrial tachycardia. 4. COVID-19 pneumonia. 5. Hypoxia. 6. Acute on chronic systolic and diastolic congestive heart failure. 7. Severe protein-calorie malnutrition. 8. Metabolic alkalosis, likely compensatory, critical and guarded. PLAN: 1. Oxygenation with high-flow oxygen delivery. 2. DVT prophylaxis. 3. Consider steroids. 4. Antimicrobials. 5. Respiratory hygiene. 6. Anti-platelet therapy. 7. Topical nitrates. 8. Review echocardiogram. 9. Isolation. Simone Perez M.D. DR: Chava JOB#: [id number] CC:
--- NOTE | 2020-04-11 23:16 | NUR ---
NURSE NOTES: Left message for Dr. Perez regarding patient having an episode of 6 seconds of A-Fib with RVR at 160 bpm. Awaiting callback for any further orders.
[2020-04-12] VITALS (7 sets, daily range): BP systolic 92–142; BP diastolic 52–74
[2020-04-12] MEDS: Albuterol 90mcg Inhaler 8gm INH SCH ×4 (00:56→18:09)
--- NOTE | 2020-04-12 03:46 | NUR ---
NURSE NOTES: Patient is resting comfortably in bed semi-benitez. Will continue to monitor.
[2020-04-12] MEDS: Nitroglycerin 2% oint pkt TOPIC SCH ×3 (06:25→18:08)
--- NOTE | 2020-04-12 07:08 | NUR ---
NURSE HAND-OFF REPORT: Important Events on Shift:[Patient had an episode of 6 seconds of A-Fib with RVR at 160 BPM] Patient Status: [Stable] Diet: [CCHO Medium ] Pending Orders: [None] Pending Results/Labs:[CBC with Differential, CMP, and Bilirubin Direct.] Pending MD notification:[Patient's 6 second episode of A-Fib with RVR] Latest Vital Signs: Temperature 97.5 , Pulse 98 , B/P 130 /61 , Respiratory Rate 18 , O2 SAT 98%, O2 4L/m nasal cannula. Vital Sign Comment: [] EKG Rhythm: Sinus Rhythm with PAC Rhythm change?: one episode of 6 seconds of A-Fib with RVR MD Notified?: Tracy Perez MD Response: None Latest Lechuga Fall Score: 45 Fall Risk: High Risk Safety Measures: Call light Within Reach, Bed Alarm Zone 1, Side Rails Side Rails x3, Bed position Low and Locked. Fall Precautions: Yellow Socks Yellow Gown Door Sign Patient Fall Education Report given to Dolores SALGADO. Addendum: 04/12/20 at 0720 by Yudi Thomson RN Wrong Patient
--- NOTE | 2020-04-12 07:19 | NUR ---
NURSE HAND-OFF REPORT: Important Events on Shift:[Patient had an episode of 6 seconds of A-Fib with RVR at 160 BPM] Patient Status: [Stable] Diet: [Regular] Pending Orders: [None] Pending Results/Labs:[None] Pending MD notification:[Patient's 6 second episode of A-Fib with RVR] Latest Vital Signs: Temperature 97.5 , Pulse 98 , B/P 130 /61 , Respiratory Rate 18 , O2 SAT 98%, O2 4L/m nasal cannula. Vital Sign Comment: [] EKG Rhythm: Sinus Rhythm with PAC Rhythm change?: one episode of 6 seconds of A-Fib with RVR MD Notified?: Tracy Perez MD Response: None Latest Lechuga Fall Score: 45 Fall Risk: High Risk Safety Measures: Call light Within Reach, Bed Alarm Zone 1, Side Rails Side Rails x3, Bed position Low and Locked. Fall Precautions: Yellow Socks Yellow Gown Door Sign Patient Fall Education Report given to Dolores SALGADO.
--- NOTE | 2020-04-12 07:54 | NUR ---
NURSES NOTE: Received report from Yudi SALGADO. Patient in bed sitting comfortable and awake. Nasal canula on at 4L/min Spo2 95%. No SOB or acute distress noted. Patient report no pain at this time. IV site intact and patent running NS @ 100ml/hr as ordered. Bed locked in low position. Call light and belongings within reach. Patent educated to use call light for any assistance to the bed side commode.
[2020-04-12] MEDS: Aspirin EC 81mg tab ORAL SCH (08:45)
[2020-04-12] MEDS: Eliquis 2.5mg tablet ORAL SCH ×2 (08:45→18:08)
[2020-04-12] MEDS: dilTIAZem HCl CD 180mg cap ORAL SCH (08:45)
[2020-04-12] MEDS: Wixela 100/50 Inhaler - 60 dose INH SCH ×2 (08:46→18:08)
--- NOTE | 2020-04-12 10:10 | General Progress Note ---
Assessment/Plan Assessment/Plan: COVID positive pneumonia Congestive heart failure Hypoxemia Foot pain Elevated d-dimer COPD chronic hypoxemia CO2 retention PLAN care noted IV antibiotics respiratory care IV steroids isolation oxygen therapy prognosis guarded refuses lovenox apixiban for now impression, plan, and exam edited and reviewed in detail care discussed with RN Subjective Allergies: Coded Allergies: CIPROFLOXACIN (Verified Allergy, Unknown, 09/27/17) Subjective refuses Remdesivir notes pain in the foot Objective Last 24 Hour Vital Signs Date Time Temp Pulse Resp B/P (MAP) Pulse Ox O2 Delivery O2 Flow Rate FiO2 04/12/20 08:45 95 132/60 04/12/20 08:26 Nasal Cannula 4.0 04/12/20 08:00 97.6 84 18 92/54 (67) 97 80 04/12/20 08:00 93 04/12/20 06:25 130/61 04/12/20 04:00 97.5 99 18 130/61 (84) 98 04/12/20 04:00 98 04/12/20 00:00 96.6 94 18 100/59 (73) 95 04/12/20 00:00 103 04/11/20 21:00 Nasal Cannula 4.0 04/11/20 20:00 102 04/11/20 20:00 97.3 99 20 97/57 (70) 94 04/11/20 17:42 98/58 04/11/20 17:41 105 98/58 04/11/20 16:00 110 04/11/20 16:00 97.7 105 20 98/58 (71) 99 04/11/20 12:00 92 04/11/20 12:00 97.9 98 20 100/62 (75) 100 Intake and Output 04/11/20 04/12/20 19:00 07:00 Intake Total 460 ml 1457 ml Balance 460 ml 1457 ml Intake Oral 360 ml 350 ml IV Total 100 ml 1107 ml # Voids 2 2 # Bowel Movements 1 Height (Feet): 5 Height (Inches): 2.00 Weight (Pounds): 141 Objective deferred due to Aaron Dietrich MD Apr 12, 2020 10:10
--- NOTE | 2020-04-12 14:26 | Infectious Diseases Prog Note ---
Assessment/Plan Assessment/Plan A; 1. COVID-19 pneumonia. 2. Congestive heart failure. 3. COPD. 4. Asthma. 5. Hypercapnia PLAN: 1. Continue Decadron Subjective ROS Limited/Unobtainable: No Constitutional: Reports: no symptoms, other - feels better Respiratory: Reports: no symptoms Cardiovascular: Reports: no symptoms Gastrointestinal/Abdominal: Reports: no symptoms Genitourinary: Reports: frequency Allergies: Coded Allergies: CIPROFLOXACIN (Verified Allergy, Unknown, 09/27/17) Objective Last 24 Hour Vital Signs Date Time Temp Pulse Resp B/P (MAP) Pulse Ox O2 Delivery O2 Flow Rate FiO2 04/12/20 12:13 132/60 04/12/20 12:00 97.9 101 18 142/74 (96) 97 96 04/12/20 12:00 106 04/12/20 08:45 95 132/60 04/12/20 08:26 Nasal Cannula 4.0 04/12/20 08:00 97.6 84 18 92/54 (67) 97 80 04/12/20 08:00 93 04/12/20 06:25 130/61 04/12/20 04:00 97.5 99 18 130/61 (84) 98 04/12/20 04:00 98 04/12/20 00:00 96.6 94 18 100/59 (73) 95 04/12/20 00:00 103 04/11/20 21:00 Nasal Cannula 4.0 04/11/20 20:00 102 04/11/20 20:00 97.3 99 20 97/57 (70) 94 04/11/20 17:42 98/58 04/11/20 17:41 105 98/58 04/11/20 16:00 110 04/11/20 16:00 97.7 105 20 98/58 (71) 99 Height (Feet): 5 Height (Inches): 2.00 Weight (Pounds): 141 General Appearance: no acute distress HEENT: mucous membranes moist Respiratory/Chest: lungs clear, other - Oxygen by nasal cannula Cardiovascular: normal rate Abdomen: soft, non tender Extremities: other - legs edema Neurologic/Psychiatric: alert, oriented x 3, responsive Microbiology Date/Time Source Procedure Growth Status 04/10/20 22:30 Nasopharynx SARS-CoV-2 RdRp Gene Assay - Final Complete 04/10/20 22:30 Arm Right Blood Culture - Preliminary NO GROWTH AFTER 24 HOURS Resulted 04/10/20 22:20 Arm Left Blood Culture - Preliminary NO GROWTH AFTER 24 HOURS Resulted Current Medications Medications (Trade) Dose Ordered Sig/Ghislaine Route PRN Reason Start Time Stop Time Status Last Admin Dose Admin Acetaminophen (Tylenol) 650 mg Q4H PRN ORAL Temp >100.5 04/11/20 05:45 05/11/20 05:44 Acetazolamide (Diamox) 250 mg TWICE A DAY ORAL 04/11/20 18:00 05/11/20 17:59 04/12/20 08:45 Al Hydroxide/Mg Hydroxide (Mylanta) 30 ml Q6H PRN ORAL Abdominal cramps 04/11/20 05:45 05/11/20 05:44 Albuterol Sulfate (Proventil MDI) 2 puff EVERY 6 HOURS INH 04/11/20 12:00 07/10/20 11:59 04/12/20 12:13 Albuterol/ Ipratropium (Combivent Respimat) 1 puff Q6HR INH 04/11/20 12:00 05/11/20 11:59 04/12/20 12:13 Apixaban (Eliquis) 2.5 mg BID ORAL 04/11/20 18:00 07/10/20 17:59 04/12/20 08:45 Aspirin (Ecotrin) 81 mg DAILY ORAL 04/12/20 09:00 05/27/20 08:59 04/12/20 08:45 Dexamethasone Sodium Phosphate (Decadron 4mg/ml vial) 6 mg DAILY IVP 04/11/20 09:00 04/19/20 12:00 04/12/20 08:45 Diltiazem HCl (Cardizem CD) 180 mg DAILY ORAL 04/11/20 17:00 05/11/20 16:59 04/12/20 08:45 Nitroglycerin (Nitro-Bid) 1 inch TID@0600,1200,1800 TOPIC 04/11/20 18:00 05/11/20 17:59 04/12/20 12:13 Pantoprazole (Protonix) 40 mg DAILY ORAL 04/11/20 09:00 05/11/20 08:59 04/12/20 08:45 Salmeterol Xinafoate/ Fluticasone (Advair 100/50 Diskus) 1 puffs TWICE A DAY INH 04/11/20 09:00 07/10/20 08:59 04/12/20 08:46 Sodium Chloride 1,000 ml @ 100 mls/hr Q10H IV 04/11/20 05:45 05/11/20 05:44 04/12/20 12:13 Freddy Woodson MD Apr 12, 2020 14:26
--- NOTE | 2020-04-12 16:21 | Cardiology Progress Note ---
Subjective Still very congested and hypoxic Troponin elevated, but trending down. Monitor: Ectopic atrial rhythm with episodes of NSVT and PAFib 2D Echo: EF 40% with moderate valvular regurgitation and severe Pulm HTN Objective Last 24 Hour Vital Signs Date Time Temp Pulse Resp B/P (MAP) Pulse Ox O2 Delivery O2 Flow Rate FiO2 04/12/20 12:13 132/60 04/12/20 12:00 97.9 101 18 142/74 (96) 97 96 04/12/20 12:00 106 04/12/20 08:45 95 132/60 04/12/20 08:26 Nasal Cannula 4.0 04/12/20 08:00 97.6 84 18 92/54 (67) 97 80 04/12/20 08:00 93 04/12/20 06:25 130/61 04/12/20 04:00 97.5 99 18 130/61 (84) 98 04/12/20 04:00 98 04/12/20 00:00 96.6 94 18 100/59 (73) 95 04/12/20 00:00 103 04/11/20 21:00 Nasal Cannula 4.0 04/11/20 20:00 102 04/11/20 20:00 97.3 99 20 97/57 (70) 94 04/11/20 17:42 98/58 04/11/20 17:41 105 98/58 No change to ROS from my note of 04/10/20 HEENT: normal ENT inspection RHYTHM: ST, Afib, VT LUNGS: bilateral rhonchi, coarse breath sounds CARDIAC: normal S1 and S2, systolic murmur, rapid rate, other - 1/6 systolic ABDOMEN: normal bowel sounds, non tender, soft EXTREMITIES: normal range of motion, trace edema Microbiology Date/Time Source Procedure Growth Status 04/10/20 22:30 Nasopharynx SARS-CoV-2 RdRp Gene Assay - Final Complete 04/10/20 22:30 Arm Right Blood Culture - Preliminary NO GROWTH AFTER 24 HOURS Resulted 04/10/20 22:20 Arm Left Blood Culture - Preliminary NO GROWTH AFTER 24 HOURS Resulted Assessment/Plan Assessment/Plan Covid19 PNA Hypoxia Pulmonary fibrosis Chronic respiratory acidosis Acute myocardial ischemia Possible NSTE myocardial infarction Acute/chr systolic and diastolic CHF Non Sustained Ventricular Tachycardia PAFibrillation Severe pulmonary hypertension HIGH RISK Critical and guarded O2 Resp Rx Full anticoag steroids anti-plt rx avoid BBlockers due to lung dis Topical nitrates Titrate cardizem Diuresis as needed - diamox to stimulate respirations Off IVF Simone Perez MD Apr 12, 2020 16:21
--- NOTE | 2020-04-12 16:24 | NUR ---
NURSES NOTE Paged Dr. Perez regarding rhythm strip showing possible biphasic p wave along with possible 1 degree heart block that is a change in monitoring. Awaiting call back.
--- NOTE | 2020-04-12 17:02 | NUR ---
NURSES NOTE: Dr Perez arrived on the unit and was notified that pt had biphasic p wave and also 6 beats of Vtach. No new orders were ordered.
--- NOTE | 2020-04-12 19:33 | NUR ---
NURSE HAND-OFF REPORT: Important Events on Shift: 2 different episodes of cardiac issues. 6 beats of Vtach and possible biphasic p wave. Md aware. Patient Status: Stable Diet: Regular Pending Orders: None Pending Results/Labs:None Pending MD notification:None Latest Vital Signs: Temperature 97.5 , Pulse 107 , B/P 130 /61 , Respiratory Rate 18 , O2 SAT 98 , Nasal Cannula, O2 Flow Rate 4.0 . Vital Sign Comment: None EKG Rhythm: Sinus Tach with possible biphasic p wave Rhythm change?: Tracy MCCRACKEN Notified?: Y -Dr Chris MCCRACKEN Response: Message left await call. MD AWARE on the floor. Latest Lechuga Fall Score: 45 Fall Risk: High Risk Safety Measures: Call light Within Reach, Bed Alarm Zone 1, Side Rails Side Rails x2, Bed position Low and Locked. Fall Precautions: Yellow Socks Yellow Gown Door Sign Patient Fall Education Report given to [place].
--- NOTE | 2020-04-12 19:35 | NUR ---
NURSE NOTES: Received report from Dolores SALGADO. Pt in stable condition. Denies any pain. Denies any n/v or SOB. Pt is A+Ox4. Pt is continent stand by assist to bedside commode needed. Pt on 4L NC sating 98%. Pt has R AC 22g Slocked. Pt resting in bed comfortably. Bed in low and locked position, call light within reach, bedside table within reach. Continue to monitor.
[2020-04-13] MEDS: Albuterol 90mcg Inhaler 8gm INH SCH ×4 (00:16→18:22)
[2020-04-13 04:00] VITALS: BP 106/60
[2020-04-13] MEDS: Nitroglycerin 2% oint pkt TOPIC SCH ×3 (05:35→18:00)
--- NOTE | 2020-04-13 07:20 | NUR ---
NURSE HAND-OFF REPORT: Important Events on Shift:[] Patient Status: [Stable] Diet: [Regular] Pending Orders: [] Pending Results/Labs:[] Pending MD notification:[] Latest Vital Signs: Temperature 97.0 , Pulse 90 , B/P 109 /60 , Respiratory Rate 18 , O2 SAT 96 , Nasal Cannula, O2 Flow Rate 4.0 . Vital Sign Comment: [] EKG Rhythm: Sinus Rhythm Rhythm change?: Y Notified?: Y -Dr Chris MCCRACKEN Response: Message left await call Latest Lechuga Fall Score: 45 Fall Risk: High Risk Safety Measures: Call light Within Reach, Bed Alarm Zone 1, Side Rails Side Rails x2, Bed position Low and Locked. Fall Precautions: Yellow Socks Yellow Gown Door Sign Patient Fall Education Report given to [Amaris SALGADO].
--- NOTE | 2020-04-13 07:48 | NUR ---
NURSE NOTES: Received report from DAMIAN Lei. Patient AAO x4, high fowlers, eating breakfast. No acute distress. Denies pain. Breathing regular and unlabored on NC. Radial pulses palpable, equal. R AC 22 g IV intact, flushed patent. Fall education provided, precautions in place.
--- NOTE | 2020-04-13 07:53 | General Progress Note ---
Assessment/Plan Assessment/Plan: COVID positive pneumonia Congestive heart failure Hypoxemia Foot pain Elevated d-dimer COPD chronic hypoxemia CO2 retention PLAN care noted IV antibiotics respiratory care IV steroids isolation oxygen therapy prognosis guarded apixiban impression, plan, and exam edited and reviewed in detail care discussed with RN Subjective Allergies: Coded Allergies: CIPROFLOXACIN (Verified Allergy, Unknown, 09/27/17) Subjective refuses Remdesivir wants to go home Objective Last 24 Hour Vital Signs Date Time Temp Pulse Resp B/P (MAP) Pulse Ox O2 Delivery O2 Flow Rate FiO2 04/13/20 05:35 109/60 04/13/20 04:00 90 04/13/20 04:00 97.0 93 18 106/60 (75) 96 04/13/20 00:00 93 04/12/20 23:58 97.5 101 18 104/64 (77) 98 04/12/20 21:00 Nasal Cannula 4.0 04/12/20 20:00 102 04/12/20 20:00 97.7 97 18 102/52 (69) 98 04/12/20 18:08 130/61 04/12/20 16:00 107 04/12/20 16:00 97.5 99 18 130/61 (84) 98 04/12/20 12:13 132/60 04/12/20 12:00 97.9 101 18 142/74 (96) 97 96 04/12/20 12:00 106 04/12/20 08:45 95 132/60 04/12/20 08:26 Nasal Cannula 4.0 04/12/20 08:00 97.6 84 18 92/54 (67) 97 80 04/12/20 08:00 93 Intake and Output 04/12/20 04/13/20 19:00 07:00 Intake Total 480 ml Balance 480 ml Intake Oral 480 ml # Voids 2 3 # Bowel Movements 1 Height (Feet): 5 Height (Inches): 2.00 Weight (Pounds): 141 Objective deferred due to Aaron Dietrich MD Apr 13, 2020 07:53
[2020-04-13 08:00] VITALS: BP 93/56
[2020-04-13 08:42] LABS: HEMATOCRIT 37.2 % (37.0-47.0); HEMOGLOBIN 11.2 G/DL (12.0-16.0); MEAN CORPUSCULAR VOLUME 89 FL (80-99); PLATELET COUNT 326 K/UL (150-450); RED BLOOD COUNT 4.17 M/UL (4.20-5.40); RED CELL DISTRIBUTION WIDTH 16.5 % (11.6-14.8); WHITE BLOOD COUNT 6.5 K/UL (4.8-10.8)
[2020-04-13] MEDS: Aspirin EC 81mg tab ORAL SCH (09:15)
[2020-04-13] MEDS: Eliquis 2.5mg tablet ORAL SCH ×2 (09:15→18:11)
[2020-04-13] MEDS: Wixela 100/50 Inhaler - 60 dose INH SCH ×2 (09:16→18:21)
--- NOTE | 2020-04-13 09:17 | NUR ---
CASE MANAGEMENT: 04/14/20 SI: COVID PNA HR 101 BP 93/56 TROPONIN(+) 0.102 IS: IV DECADRON ASA PO QD ELIQUIS PO BID NITRO BID 1" TID CARDIZEM PO QD DUONEB HHN Q6HRS : TELEMETRY STATUS DCP: HOME INTERQUAL CRITERIA MET
[2020-04-13 09:22] LABS: ALANINE AMINOTRANSFERASE 30 U/L (12-78); ALBUMIN 1.9 G/DL (3.4-5.0); ALBUMIN/GLOBULIN RATIO 0.4 (1.0-2.7); ALKALINE PHOSPHATASE 211 U/L (46-116); ANION GAP 4 mmol/L (5-15); ASPARTATE AMINO TRANSFERASE 34 U/L (15-37); BILIRUBIN,TOTAL 0.4 MG/DL (0.2-1.0); BLOOD UREA NITROGEN 17 mg/dL (7-18); CALCIUM 8.6 MG/DL (8.5-10.1); CARBON DIOXIDE 34 MMOL/L (21-32); CHLORIDE 105 MMOL/L (98-107); CREATININE 0.9 MG/DL (0.55-1.30); POTASSIUM 3.4 MMOL/L (3.5-5.1); SODIUM 143 MMOL/L (136-145)
--- NOTE | 2020-04-13 10:44 | NUR ---
NURSE NOTES: Notified MD Jefferson regarding K 3.4, awaiting response.
--- NOTE | 2020-04-13 10:47 | Infectious Diseases Prog Note ---
Assessment/Plan Assessment/Plan antibiotics none A 1. COVID 19 pneumonia on 4 liters O2, saturation 97 % patient refused remdesivir 2. CHF 3. COPD 4. asthma P 1. continue dexamethasone day 4 2. will follow up cultures 3. continue isolation Subjective Constitutional: Denies: fever, chills Respiratory: Denies: shortness of breath, dry cough Gastrointestinal/Abdominal: Denies: nausea, vomiting, diarrhea Musculoskeletal: Denies: pain Allergies: Coded Allergies: CIPROFLOXACIN (Verified Allergy, Unknown, 09/27/17) Objective Last 24 Hour Vital Signs Date Time Temp Pulse Resp B/P (MAP) Pulse Ox O2 Delivery O2 Flow Rate FiO2 04/13/20 09:00 Nasal Cannula 4.0 04/13/20 08:00 97.9 67 18 93/56 (68) 100 04/13/20 08:00 92 04/13/20 05:35 109/60 04/13/20 04:00 90 04/13/20 04:00 97.0 93 18 106/60 (75) 96 04/13/20 00:00 93 04/12/20 23:58 97.5 101 18 104/64 (77) 98 04/12/20 21:00 Nasal Cannula 4.0 04/12/20 20:00 102 04/12/20 20:00 97.7 97 18 102/52 (69) 98 04/12/20 18:08 130/61 04/12/20 16:00 107 04/12/20 16:00 97.5 99 18 130/61 (84) 98 04/12/20 12:13 132/60 04/12/20 12:00 97.9 101 18 142/74 (96) 97 96 04/12/20 12:00 106 Height (Feet): 5 Height (Inches): 2.00 Weight (Pounds): 137 Microbiology Date/Time Source Procedure Growth Status 04/10/20 22:30 Nasopharynx SARS-CoV-2 RdRp Gene Assay - Final Complete 04/10/20 22:30 Arm Right Blood Culture - Preliminary NO GROWTH AFTER 24 HOURS Resulted 04/10/20 22:20 Arm Left Blood Culture - Preliminary NO GROWTH AFTER 24 HOURS Resulted Laboratory Tests Test 04/13/20 07:55 White Blood Count 6.5 K/UL (4.8-10.8) Red Blood Count 4.17 M/UL (4.20-5.40) L Hemoglobin 11.2 G/DL (12.0-16.0) L Hematocrit 37.2 % (37.0-47.0) Mean Corpuscular Volume 89 FL (80-99) Mean Corpuscular Hemoglobin 27.0 PG (27.0-31.0) Mean Corpuscular Hemoglobin Concent 30.2 G/DL (32.0-36.0) L Red Cell Distribution Width 16.5 % (11.6-14.8) H Platelet Count 326 K/UL (150-450) Mean Platelet Volume 5.3 FL (6.5-10.1) L Neutrophils (%) (Auto) % (45.0-75.0) Lymphocytes (%) (Auto) % (20.0-45.0) Monocytes (%) (Auto) % (1.0-10.0) Eosinophils (%) (Auto) % (0.0-3.0) Basophils (%) (Auto) % (0.0-2.0) Differential Total Cells Counted 100 Neutrophils % (Manual) 86 % (45-75) H Lymphocytes % (Manual) 11 % (20-45) L Monocytes % (Manual) 3 % (1-10) Eosinophils % (Manual) 0 % (0-3) Basophils % (Manual) 0 % (0-2) Band Neutrophils 0 % (0-8) Platelet Estimate Adequate Platelet Morphology Normal Hypochromasia 1+ Anisocytosis 1+ Sodium Level 143 MMOL/L (136-145) Potassium Level 3.4 MMOL/L (3.5-5.1) L Chloride Level 105 MMOL/L (98-107) Carbon Dioxide Level 34 MMOL/L (21-32) H Anion Gap 4 mmol/L (5-15) L Blood Urea Nitrogen 17 mg/dL (7-18) Creatinine 0.9 MG/DL (0.55-1.30) Estimat Glomerular Filtration Rate > 60 mL/min (>60) Glucose Level 120 MG/DL (74-106) H Calcium Level 8.6 MG/DL (8.5-10.1) Total Bilirubin 0.4 MG/DL (0.2-1.0) Aspartate Amino Transf (AST/SGOT) 34 U/L (15-37) Alanine Aminotransferase (ALT/SGPT) 30 U/L (12-78) Alkaline Phosphatase 211 U/L (46-116) H Troponin I 0.102 ng/mL (0.000-0.056) Pro-B-Type Natriuretic Peptide 4349 pg/mL (0-125) H Total Protein 6.7 G/DL (6.4-8.2) Albumin 1.9 G/DL (3.4-5.0) L Globulin 4.8 g/dL Albumin/Globulin Ratio 0.4 (1.0-2.7) L Current Medications Medications (Trade) Dose Ordered Sig/Ghislaine Route PRN Reason Start Time Stop Time Status Last Admin Dose Admin Acetaminophen (Tylenol) 650 mg Q4H PRN ORAL Temp >100.5 04/11/20 05:45 05/11/20 05:44 Acetazolamide (Diamox) 250 mg TWICE A DAY ORAL 04/11/20 18:00 05/11/20 17:59 04/13/20 09:15 Al Hydroxide/Mg Hydroxide (Mylanta) 30 ml Q6H PRN ORAL Abdominal cramps 04/11/20 05:45 05/11/20 05:44 Albuterol Sulfate (Proventil MDI) 2 puff EVERY 6 HOURS INH 04/11/20 12:00 07/10/20 11:59 04/13/20 05:36 Albuterol/ Ipratropium (Combivent Respimat) 1 puff Q6HR INH 04/11/20 12:00 05/11/20 11:59 04/13/20 05:35 Apixaban (Eliquis) 2.5 mg BID ORAL 04/11/20 18:00 07/10/20 17:59 04/13/20 09:15 Aspirin (Ecotrin) 81 mg DAILY ORAL 04/12/20 09:00 05/27/20 08:59 04/13/20 09:15 Dexamethasone Sodium Phosphate (Decadron 4mg/ml vial) 6 mg DAILY IVP 04/11/20 09:00 04/19/20 12:00 04/13/20 09:16 Diltiazem HCl (Cardizem CD) 180 mg DAILY ORAL 04/11/20 17:00 05/11/20 16:59 04/12/20 08:45 Nitroglycerin (Nitro-Bid) 1 inch TID@0600,1200,1800 TOPIC 04/11/20 18:00 05/11/20 17:59 04/13/20 05:35 Pantoprazole (Protonix) 40 mg DAILY ORAL 04/11/20 09:00 05/11/20 08:59 04/13/20 09:16 Salmeterol Xinafoate/ Fluticasone (Advair 100/50 Diskus) 1 puffs TWICE A DAY INH 04/11/20 09:00 07/10/20 08:59 04/13/20 09:16 Camilo Cameron MD Apr 13, 2020 10:47
[2020-04-13 10:52] VITALS: BP 92/50
--- NOTE | 2020-04-13 10:58 | NUR ---
NURSE NOTES: Received TORB from MD Jefferson for KCL 20 meq PO x1 for K 3.4.
[2020-04-13 11:39] VITALS: BP 93/54
--- NOTE | 2020-04-13 12:09 | NUR ---
NURSE NOTES: Huddled with MD Perez. Updated that BP running 90s/50s with nitro patch. states he will d/c nitro patch and ok to give cardizem.
[2020-04-13] MEDS: dilTIAZem HCl CD 180mg cap ORAL SCH (12:14)
[2020-04-13 15:54] VITALS: BP 109/62
--- NOTE | 2020-04-13 19:21 | NUR ---
NURSE HAND-OFF REPORT: Important Events on Shift: N/A Patient Status: Stable, AAO x4, no pain or acute distress. Diet: Regular Pending Orders: N/A Pending Results/Labs: N/A Pending MD notification: N/A Latest Vital Signs: Temperature 96.3 , Pulse 94 , B/P 109 /62 , Respiratory Rate 18 , O2 SAT 96 , Nasal Cannula, O2 Flow Rate 4.0 . Vital Sign Comment: N/A EKG Rhythm: Sinus Rhythm Rhythm change?: N Notified?: Y -Dr Chris MCCRACKEN Response: Message left await call Latest Lechuga Fall Score: 45 Fall Risk: High Risk Safety Measures: Call light Within Reach, Bed Alarm Zone 1, Side Rails Side Rails x3, Bed position Low and Locked. Fall Precautions: Yellow Socks Yellow Gown Door Sign Patient Fall Education Report given to DAMIAN Cheney.
--- NOTE | 2020-04-13 19:22 | NUR ---
NURSE NOTES: Patient received from Amaris SALGADO. Patient in stable condition. Alert and oriented x4. On 2L of o2 via nasal cannula saturating well. No s/s of distress. Bilateral edema present, lower extremities elevated. Patient teaching given on turning and use of call light for assistance. Bed in lowest position and locked. Patient wearing yellow gown and yellow socks. Bed alarm on. IV site on Right AC 22G SL patent and intact. Will continue plan of care.
[2020-04-13 20:00] VITALS: BP 97/54
[2020-04-14] VITALS: BP 127/70
--- NOTE | 2020-04-14 03:40 | Cardiology Progress Note ---
Subjective DATE OF SERVICE: Apr 13, 2020 Still congested and hypoxic Troponin elevated, but continues trending down. Monitor: Ectopic atrial rhythm with episodes of NSVT and PAFib 2D Echo: EF 40% with moderate valvular regurgitation and severe Pulm HTN Objective Last 24 Hour Vital Signs Date Time Temp Pulse Resp B/P (MAP) Pulse Ox O2 Delivery O2 Flow Rate FiO2 04/14/20 00:00 97.9 84 20 127/70 (89) 95 04/14/20 00:00 98 04/13/20 21:00 Nasal Cannula 2.0 04/13/20 20:00 95 04/13/20 20:00 97.7 95 18 97/54 (68) 93 04/13/20 18:00 109/62 04/13/20 16:00 94 04/13/20 15:54 96.3 77 18 109/62 (78) 96 04/13/20 12:14 69 93/54 04/13/20 12:00 96 04/13/20 11:52 93/54 04/13/20 11:39 96.4 69 18 93/54 (67) 100 04/13/20 10:52 94 92/50 (64) 04/13/20 09:00 Nasal Cannula 4.0 04/13/20 08:00 97.9 67 18 93/56 (68) 100 04/13/20 08:00 92 04/13/20 05:35 109/60 04/13/20 04:00 90 04/13/20 04:00 97.0 93 18 106/60 (75) 96 No change to ROS from my note of 04/10/20 HEENT: normal ENT inspection RHYTHM: ST, Afib, VT LUNGS: bilateral rhonchi, coarse breath sounds CARDIAC: normal S1 and S2, systolic murmur, rapid rate, other - 1/6 systolic ABDOMEN: normal bowel sounds, non tender, soft EXTREMITIES: normal range of motion, trace edema Laboratory Tests Test 04/13/20 07:55 White Blood Count 6.5 K/UL (4.8-10.8) Red Blood Count 4.17 M/UL (4.20-5.40) L Hemoglobin 11.2 G/DL (12.0-16.0) L Hematocrit 37.2 % (37.0-47.0) Mean Corpuscular Volume 89 FL (80-99) Mean Corpuscular Hemoglobin 27.0 PG (27.0-31.0) Mean Corpuscular Hemoglobin Concent 30.2 G/DL (32.0-36.0) L Red Cell Distribution Width 16.5 % (11.6-14.8) H Platelet Count 326 K/UL (150-450) Mean Platelet Volume 5.3 FL (6.5-10.1) L Neutrophils (%) (Auto) % (45.0-75.0) Lymphocytes (%) (Auto) % (20.0-45.0) Monocytes (%) (Auto) % (1.0-10.0) Eosinophils (%) (Auto) % (0.0-3.0) Basophils (%) (Auto) % (0.0-2.0) Differential Total Cells Counted 100 Neutrophils % (Manual) 86 % (45-75) H Lymphocytes % (Manual) 11 % (20-45) L Monocytes % (Manual) 3 % (1-10) Eosinophils % (Manual) 0 % (0-3) Basophils % (Manual) 0 % (0-2) Band Neutrophils 0 % (0-8) Platelet Estimate Adequate Platelet Morphology Normal Hypochromasia 1+ Anisocytosis 1+ Sodium Level 143 MMOL/L (136-145) Potassium Level 3.4 MMOL/L (3.5-5.1) L Chloride Level 105 MMOL/L (98-107) Carbon Dioxide Level 34 MMOL/L (21-32) H Anion Gap 4 mmol/L (5-15) L Blood Urea Nitrogen 17 mg/dL (7-18) Creatinine 0.9 MG/DL (0.55-1.30) Estimat Glomerular Filtration Rate > 60 mL/min (>60) Glucose Level 120 MG/DL (74-106) H Calcium Level 8.6 MG/DL (8.5-10.1) Total Bilirubin 0.4 MG/DL (0.2-1.0) Aspartate Amino Transf (AST/SGOT) 34 U/L (15-37) Alanine Aminotransferase (ALT/SGPT) 30 U/L (12-78) Alkaline Phosphatase 211 U/L (46-116) H Troponin I 0.102 ng/mL (0.000-0.056) Pro-B-Type Natriuretic Peptide 4349 pg/mL (0-125) H Total Protein 6.7 G/DL (6.4-8.2) Albumin 1.9 G/DL (3.4-5.0) L Globulin 4.8 g/dL Albumin/Globulin Ratio 0.4 (1.0-2.7) L Assessment/Plan Assessment/Plan Covid19 PNA Hypotension - possibly due to cardiogenic shock Hypoxia Pulmonary fibrosis Chronic respiratory acidosis Acute myocardial ischemia Possible NSTE myocardial infarction Acute/chr systolic and diastolic CHF Non Sustained Ventricular Tachycardia PAFibrillation Hypokalemia Severe pulmonary hypertension HIGH RISK Critical and guarded O2 Resp Rx Full anticoag steroids anti-plt rx avoid BBlockers due to lung dis DC nitrates Titrate cardizem Diuresis as needed - diamox to stimulate respirations Off IVF Replace potassium; check Mg++ Simone Perez MD Apr 14, 2020 03:40
[2020-04-14 04:00] VITALS: BP 122/74
[2020-04-14] MEDS: Albuterol 90mcg Inhaler 8gm INH SCH ×3 (06:00→12:22)
--- NOTE | 2020-04-14 07:20 | NUR ---
NURSE NOTES: Received report from DAMIAN Cheney. Patient asleep but arousable to name. AAO x4. No acute distress. Breathing regular and unlabored on NC. Denies pain. Radial pulses palpable, equal. IV intact, flushed patent. No redness or infiltration. Bilateral lower extremity edema observed, heels offloaded with optifoam applied. Fall precautions in place.
--- NOTE | 2020-04-14 07:20 | NUR ---
NURSE HAND-OFF REPORT: Important Events on Shift:[None] Patient Status: [Stable] Diet: [Regular] Pending Orders: [] Pending Results/Labs:[CBC, CMP, Troponin, PBNP] Pending MD notification:[] Latest Vital Signs: Temperature 97.7 , Pulse 89 , B/P 122 /74 , Respiratory Rate 20 , O2 SAT 94 , Nasal Cannula, O2 Flow Rate 2.0 . Vital Sign Comment: [] EKG Rhythm: Sinus Rhythm Rhythm change?: N MD Notified?: Y -Dr Chris MCCRACKEN Response: Message left await call Latest Lechuga Fall Score: 45 Fall Risk: High Risk Safety Measures: Call light Within Reach, Bed Alarm Zone 1, Side Rails Side Rails x3, Bed position Low and Locked. Fall Precautions: Yellow Socks Yellow Gown Door Sign Patient Fall Education Report given to [Thania SALGADO].
[2020-04-14 07:55] VITALS: BP 95/55
[2020-04-14] MEDS ORDERED: ELIQUIS2.5 MG ORAL (08:57)
[2020-04-14] MEDS ORDERED: ASPIRIN EC81 MG ORAL (08:57)
[2020-04-14] MEDS ORDERED: DILTIAZEM 24HR120 M2 PO (08:57)
[2020-04-14 09:00] VITALS: BP 111/59
--- NOTE | 2020-04-14 09:02 | General Progress Note ---
Assessment/Plan Assessment/Plan: COVID positive pneumonia Congestive heart failure Hypoxemia Foot pain Elevated d-dimer COPD chronic hypoxemia CO2 retention PLAN care noted dc antibiotics respiratory care dc steroids isolation oxygen therapy- has at home prognosis guarded apixiban /aspirin x 1 month cardizem per cards dc with HH today impression, plan, and exam edited and reviewed in detail care discussed with RN Subjective Allergies: Coded Allergies: CIPROFLOXACIN (Verified Allergy, Unknown, 09/27/17) Subjective refuses Remdesivir wants to go home Objective Last 24 Hour Vital Signs Date Time Temp Pulse Resp B/P (MAP) Pulse Ox O2 Delivery O2 Flow Rate FiO2 04/14/20 08:00 Nasal Cannula 2.0 04/14/20 07:55 96.9 69 18 95/55 (68) 92 04/14/20 04:00 89 04/14/20 04:00 97.7 90 20 122/74 (90) 94 04/14/20 00:00 97.9 84 20 127/70 (89) 95 04/14/20 00:00 98 04/13/20 21:00 Nasal Cannula 2.0 04/13/20 20:00 95 04/13/20 20:00 97.7 95 18 97/54 (68) 93 04/13/20 18:00 109/62 04/13/20 16:00 94 04/13/20 15:54 96.3 77 18 109/62 (78) 96 04/13/20 12:14 69 93/54 04/13/20 12:00 96 04/13/20 11:52 93/54 04/13/20 11:39 96.4 69 18 93/54 (67) 100 04/13/20 10:52 94 92/50 (64) 04/13/20 09:00 Nasal Cannula 4.0 Intake and Output 04/13/20 04/14/20 19:00 07:00 Intake Total 360 ml 240 ml Output Total 200 ml Balance 160 ml 240 ml Intake Oral 360 ml 240 ml Output Urine Total 200 ml # Voids 3 # Bowel Movements 1 1 Laboratory Tests 04/14/20 08:45: White Blood Count [Pending], Red Blood Count [Pending], Hemoglobin [Pending], Hematocrit [Pending], Mean Corpuscular Volume [Pending], Mean Corpuscular Hemoglobin [Pending], Mean Corpuscular Hemoglobin Concent [Pending], Red Cell Distribution Width [Pending], Platelet Count [Pending], Mean Platelet Volume [ Pending], Neutrophils (%) (Auto) [Pending], Lymphocytes (%) (Auto) [Pending], Monocytes (%) (Auto) [Pending], Eosinophils (%) (Auto) [Pending], Basophils (%) (Auto) [Pending], Sodium Level [Pending], Potassium Level [Pending], Chloride Level [Pending], Carbon Dioxide Level [Pending], Blood Urea Nitrogen [Pending], Creatinine [Pending], Estimat Glomerular Filtration Rate [Pending], Glucose Level [Pending], Calcium Level [Pending], Magnesium Level [Pending], Troponin I [Pending], Pro-B-Type Natriuretic Peptide [Pending] Height (Feet): 5 Height (Inches): 2.00 Weight (Pounds): 138 Objective deferred due to Aaron Dietrich MD Apr 14, 2020 09:02
[2020-04-14 09:14] LABS: BASOPHILS % (AUTO) 0.3 % (0.0-2.0); MEAN CORPUSCULAR VOLUME 89 FL (80-99); MONOCYTES % (AUTO) 5.8 % (1.0-10.0); NEUTROPHILS % (AUTO) 84.9 % (45.0-75.0); PLATELET COUNT 336 K/UL (150-450); RED BLOOD COUNT 4.47 M/UL (4.20-5.40); RED CELL DISTRIBUTION WIDTH 16.6 % (11.6-14.8); WHITE BLOOD COUNT 6.7 K/UL (4.8-10.8)
--- NOTE | 2020-04-14 09:29 | NUR ---
NURSE NOTES: Left message with MD Perez answering exchange re: EKG change. Pt. had episode of 10 beats of monomorphic VTach per hall monitor Rosibel. SBP 90s/50s c/w baseline. Denies chest pain or dizziness.
[2020-04-14] MEDS: Wixela 100/50 Inhaler - 60 dose INH SCH (09:59)
[2020-04-14] MEDS: dilTIAZem HCl CD 180mg cap ORAL SCH (10:00)
[2020-04-14] MEDS: Eliquis 2.5mg tablet ORAL SCH (10:01)
[2020-04-14] MEDS: Aspirin EC 81mg tab ORAL SCH (10:01)
[2020-04-14 10:07] LABS: ANION GAP 4 mmol/L (5-15); BLOOD UREA NITROGEN 20 mg/dL (7-18); CALCIUM 8.8 MG/DL (8.5-10.1); CARBON DIOXIDE 33 MMOL/L (21-32); CHLORIDE 105 MMOL/L (98-107); CREATININE 0.9 MG/DL (0.55-1.30); POTASSIUM 3.6 MMOL/L (3.5-5.1); SODIUM 142 MMOL/L (136-145)
--- NOTE | 2020-04-14 10:42 | Infectious Diseases Prog Note ---
Assessment/Plan Assessment/Plan antibiotics none A 1. COVID 19 pneumonia on 2 liters O2, saturation 100 % patient refused remdesivir 2. CHF 3. COPD 4. asthma P 1. continue dexamethasone day 5 2. will follow up cultures 3. continue isolation 4. okay for discharge from ID perspective Subjective Constitutional: Denies: fever, chills Respiratory: Denies: shortness of breath, dry cough Gastrointestinal/Abdominal: Denies: nausea, vomiting, diarrhea Musculoskeletal: Denies: pain Allergies: Coded Allergies: CIPROFLOXACIN (Verified Allergy, Unknown, 09/27/17) Objective Last 24 Hour Vital Signs Date Time Temp Pulse Resp B/P (MAP) Pulse Ox O2 Delivery O2 Flow Rate FiO2 04/14/20 10:00 101 95/55 04/14/20 09:01 101 04/14/20 08:00 Nasal Cannula 2.0 04/14/20 07:55 96.9 69 18 95/55 (68) 92 04/14/20 04:00 89 04/14/20 04:00 97.7 90 20 122/74 (90) 94 04/14/20 00:00 97.9 84 20 127/70 (89) 95 04/14/20 00:00 98 04/13/20 21:00 Nasal Cannula 2.0 04/13/20 20:00 95 04/13/20 20:00 97.7 95 18 97/54 (68) 93 04/13/20 18:00 109/62 04/13/20 16:00 94 04/13/20 15:54 96.3 77 18 109/62 (78) 96 04/13/20 12:14 69 93/54 04/13/20 12:00 96 04/13/20 11:52 93/54 04/13/20 11:39 96.4 69 18 93/54 (67) 100 04/13/20 10:52 94 92/50 (64) Height (Feet): 5 Height (Inches): 2.00 Weight (Pounds): 138 Laboratory Tests Test 04/14/20 08:45 White Blood Count 6.7 K/UL (4.8-10.8) Red Blood Count 4.47 M/UL (4.20-5.40) Hemoglobin 12.0 G/DL (12.0-16.0) Hematocrit 40.0 % (37.0-47.0) Mean Corpuscular Volume 89 FL (80-99) Mean Corpuscular Hemoglobin 26.8 PG (27.0-31.0) L Mean Corpuscular Hemoglobin Concent 30.0 G/DL (32.0-36.0) L Red Cell Distribution Width 16.6 % (11.6-14.8) H Platelet Count 336 K/UL (150-450) Mean Platelet Volume 5.3 FL (6.5-10.1) L Neutrophils (%) (Auto) 84.9 % (45.0-75.0) H Lymphocytes (%) (Auto) 9.0 % (20.0-45.0) L Monocytes (%) (Auto) 5.8 % (1.0-10.0) Eosinophils (%) (Auto) 0.0 % (0.0-3.0) Basophils (%) (Auto) 0.3 % (0.0-2.0) Sodium Level 142 MMOL/L (136-145) Potassium Level 3.6 MMOL/L (3.5-5.1) Chloride Level 105 MMOL/L (98-107) Carbon Dioxide Level 33 MMOL/L (21-32) H Anion Gap 4 mmol/L (5-15) L Blood Urea Nitrogen 20 mg/dL (7-18) H Creatinine 0.9 MG/DL (0.55-1.30) Estimat Glomerular Filtration Rate > 60 mL/min (>60) Glucose Level 123 MG/DL (74-106) H Calcium Level 8.8 MG/DL (8.5-10.1) Magnesium Level 1.8 MG/DL (1.8-2.4) Troponin I 0.114 ng/mL (0.000-0.056) Pro-B-Type Natriuretic Peptide 5250 pg/mL (0-125) H Current Medications Medications (Trade) Dose Ordered Sig/Ghislaine Route PRN Reason Start Time Stop Time Status Last Admin Dose Admin Acetaminophen (Tylenol) 650 mg Q4H PRN ORAL Temp >100.5 04/11/20 05:45 05/11/20 05:44 Acetazolamide (Diamox) 250 mg TWICE A DAY ORAL 04/11/20 18:00 05/11/20 17:59 04/14/20 10:01 Al Hydroxide/Mg Hydroxide (Mylanta) 30 ml Q6H PRN ORAL Abdominal cramps 04/11/20 05:45 05/11/20 05:44 Albuterol Sulfate (Proventil MDI) 2 puff EVERY 6 HOURS INH 04/11/20 12:00 07/10/20 11:59 04/14/20 06:00 Albuterol/ Ipratropium (Combivent Respimat) 1 puff Q6HR INH 04/11/20 12:00 05/11/20 11:59 04/14/20 06:00 Apixaban (Eliquis) 2.5 mg BID ORAL 04/11/20 18:00 07/10/20 17:59 04/14/20 10:01 Aspirin (Ecotrin) 81 mg DAILY ORAL 04/12/20 09:00 05/27/20 08:59 04/14/20 10:01 Dexamethasone Sodium Phosphate (Decadron 4mg/ml vial) 6 mg DAILY IVP 04/11/20 09:00 04/19/20 12:00 04/14/20 10:00 Diltiazem HCl (Cardizem CD) 180 mg DAILY ORAL 04/11/20 17:00 05/11/20 16:59 04/14/20 10:00 Pantoprazole (Protonix) 40 mg DAILY ORAL 04/11/20 09:00 05/11/20 08:59 04/14/20 10:01 Salmeterol Xinafoate/ Fluticasone (Advair 100/50 Diskus) 1 puffs TWICE A DAY INH 04/11/20 09:00 07/10/20 08:59 04/14/20 09:59 Camilo Cameron MD Apr 14, 2020 10:42
--- NOTE | 2020-04-14 11:02 | NUR ---
STAFF INTERPRETER NOTE SW met w/ pt and evaluated home safety. Pt presents as A&O4x. Pt resides w/ her family at [facility] [place] [address]. Pt is aware of her medical condition that she needs to quarantine for 14 days. Pt has her own room to quarantine at home. Pt does not have a caregiver. Pt shares her daughter, Heike is a nurse and she has been providing assistance/care that she needs. Pt only uses a walker to go to the bathroom. Pt shares she usually does not use any DMEs. Pt reports she receives sufficient support from her family and verbalized that she will be safe when returning home. Heike Waldo [phone].
[2020-04-14 12:00] VITALS: BP 97/49
--- NOTE | 2020-04-14 13:30 | NUR ---
*-*DISCHARGE PLAN*-* PATIENT HAS BEEN ACCEPTED TO: [facility] P: [phone] S/W [place], WILL SERVICE PATIENT UPON DISCHARGE.
--- NOTE | 2020-04-14 14:51 | NUR ---
NURSE NOTES: MD Perez updated via telephone through answering service re: increased troponin, no new orders at this time.
--- NOTE | 2020-04-14 15:30 | NUR ---
NURSE NOTES: Pt was discharged with after care plan, prescription was given, pt id and IV removed, pt was calm dressed and oriented x3 baseline, pt will continue to used O2 at home and titrate. pt was educated on using home O2.
--- NOTE | 2020-04-15 00:04 | Cardiology Progress Note ---
Subjective DATE OF SERVICE: Apr 14, 2020 Less congested; still on oxygen. Troponin trending down. Monitor: Ectopic atrial rhythm with rare episodes of NSVT and PAFib 2D Echo: EF 40% with moderate valvular regurgitation and severe Pulm HTN Objective Last 24 Hour Vital Signs Date Time Temp Pulse Resp B/P (MAP) Pulse Ox O2 Delivery O2 Flow Rate FiO2 04/14/20 12:00 96 04/14/20 12:00 96.6 72 18 97/49 (65) 93 04/14/20 10:00 101 95/55 04/14/20 09:01 101 04/14/20 09:00 16 111/59 (76) 94 04/14/20 08:00 85 04/14/20 08:00 Nasal Cannula 2.0 04/14/20 07:55 96.9 69 18 95/55 (68) 92 04/14/20 04:00 89 04/14/20 04:00 97.7 90 20 122/74 (90) 94 04/14/20 00:00 97.9 84 20 127/70 (89) 95 04/14/20 00:00 98 No change to ROS from my note of 04/10/20 HEENT: normal ENT inspection RHYTHM: ST, Afib, VT LUNGS: bilateral rhonchi, coarse breath sounds CARDIAC: normal S1 and S2, systolic murmur, rapid rate, other - 1/6 systolic ABDOMEN: normal bowel sounds, non tender, soft EXTREMITIES: normal range of motion, trace edema Laboratory Tests Test 04/14/20 08:45 White Blood Count 6.7 K/UL (4.8-10.8) Red Blood Count 4.47 M/UL (4.20-5.40) Hemoglobin 12.0 G/DL (12.0-16.0) Hematocrit 40.0 % (37.0-47.0) Mean Corpuscular Volume 89 FL (80-99) Mean Corpuscular Hemoglobin 26.8 PG (27.0-31.0) L Mean Corpuscular Hemoglobin Concent 30.0 G/DL (32.0-36.0) L Red Cell Distribution Width 16.6 % (11.6-14.8) H Platelet Count 336 K/UL (150-450) Mean Platelet Volume 5.3 FL (6.5-10.1) L Neutrophils (%) (Auto) 84.9 % (45.0-75.0) H Lymphocytes (%) (Auto) 9.0 % (20.0-45.0) L Monocytes (%) (Auto) 5.8 % (1.0-10.0) Eosinophils (%) (Auto) 0.0 % (0.0-3.0) Basophils (%) (Auto) 0.3 % (0.0-2.0) Sodium Level 142 MMOL/L (136-145) Potassium Level 3.6 MMOL/L (3.5-5.1) Chloride Level 105 MMOL/L (98-107) Carbon Dioxide Level 33 MMOL/L (21-32) H Anion Gap 4 mmol/L (5-15) L Blood Urea Nitrogen 20 mg/dL (7-18) H Creatinine 0.9 MG/DL (0.55-1.30) Estimat Glomerular Filtration Rate > 60 mL/min (>60) Glucose Level 123 MG/DL (74-106) H Calcium Level 8.8 MG/DL (8.5-10.1) Magnesium Level 1.8 MG/DL (1.8-2.4) Troponin I 0.114 ng/mL (0.000-0.056) Pro-B-Type Natriuretic Peptide 5250 pg/mL (0-125) H Assessment/Plan Assessment/Plan Covid19 PNA Hypotension - resolved Hypoxia Pulmonary fibrosis with chronic hypoxia Chronic respiratory acidosis Acute myocardial ischemia Possible NSTE myocardial infarction precipitated by acute respiratory compromise Acute/chr systolic and diastolic CHF Non Sustained Ventricular Tachycardia PAFibrillation Hypokalemia corrected Severe pulmonary hypertension HIGH RISK O2 Resp Rx Full anticoag steroids anti-plt rx avoid BBlockers due to lung dis Maintain current dose of cardizem Discontinue diamox Complete recovery at home - has home O2. High risk for readmission Simone Perez MD Apr 15, 2020 00:04
--- NOTE | 2020-04-16 09:17 | Discharge Summary ---
Discharge Summary Discharge Summary _ DATE OF ADMISSION: 04/10/2020 DATE OF DISCHARGE: 04/14/2020 DISCHARGED BY: Dr. Jefferson REASON FOR ADMISSION: 80 years old female with past medical history of congestive heart failure, asthma, presented with chief complaint of shortness of breath. Symptoms started about 4 days ago and got progressively worse. Shortness of breath was worse with exertion and lying flat. No relief from nebulizing treatment at home. No fever or chills. Cough reported to be productive with white-colored phlegm. No chest pain. No nausea ,vomiting or diarrhea. Upon evaluation patient was tachycardic with heart rate 130 and tachypneic with respiratory rate 35, as well as hypoxic with pulse oximetry 80% on room air. No fevers. Rapid COVID-19 was positive. Chest x-ray demonstrated extensive bilateral patchy airspace consolidation, predominantly in the right midlung and left base. Laboratory work-up revealed no leukocytosis. Patient was placed on supplemental oxygen via nasal cannula , and ABG on 4 L nasal cannula revealed CO2 of 64 and no hypoxia. Urinalysis revealed no evidence of UTI . Troponin elevated 0.128. ECG revealed sinus tachycardia, no acute ischemic changes. Pro BNP 5945. Inflammatory markers revealed CRP 9.5, D-dimer 2.55. Lactic acid was 1.7. Stable renal parameters and LFT. Patient started on IV Decadron and empiric antibiotic. . Patient received a dose of Lasix, MDI treatment with albuterol , aspirin and admitted for further management CONSULTANTS: lead ingot molder Dr. Chris YA specialist Dr. Cameron HOSPITAL COURSE: Patient admitted to telemetry floor to isolation room. Patient continued on Decadron . Patient declined Remdesivir. Empiric antibiotic provided. Supplemental oxygen titrated to keep pulse oximetry above 92% . Albuterol via MDI provided as needed. Advair continued. Diamox started to hope to reset CO2 , CO2 trended down . Diamox was stopped prior to discharge. Blood cultures were negative. Spot diuresis provided . Volumes and cardiorenal parameters were closely monitored. Echocardiogram demonstrated infero-lateral wall hypokinesis with estimated left ventricular ejection fraction of 40%. Moderate to severe mitral regurgitation , elevated left atrial pressure grade 3. Right ventricular systolic pressure of 100 consistent with severe pulmonary hypertension. Antiplatelet therapy with aspirin continued. No beta-radha given severe lung disease. Serial troponin remained in the same low range , no significant peak or noris. Patient started on full anticoagulation with Eliquis. Rate was controlled with Cardizem. GI prophylaxis provided. Per lead ingot molder, patient had acute myocardial ischemia and probably NSTEMI , precipitated by acute respiratory compromise. Potassium was replaced. Patient clinically stabilized and was ready for discharge home. Patient has supplemental oxygen at home. FINAL DIAGNOSES: COVID-19 pneumonia Hypoxia Pulmonary fibrosis with chronic hypoxia Chronic respiratory acidosis Myocardial ischemia Possible NSTEMI , precipitated by acute respiratory compromise Acute and chronic systolic and diastolic congestive heart failure Paroxysmal atrial fibrillation Nonsustained ventricular tachycardia Severe pulmonary hypertension Hypokalemia DISCHARGE MEDICATIONS: See Medication Reconciliation list. DISCHARGE INSTRUCTIONS: Patient was discharged home. Follow-up with a primary care provider in 1 week. I have been assigned to dictate discharge summary for this account. I was not involved in the patient's management. Rafia Nolen NP Apr 16, 2020 09:17
== END 2020-04-14 15:34 | disposition home or self-care (01) | DRG 177 ==
LOC: EMR 22:45 → EDBEDREQSVC 23:34 → EDBEDREQ 23:38 → 2E 23:50 → EDBEDREQ 04-11 00:59
DX: U07.1 COVID-19 (principal); J12.89 Other viral pneumonia; I50.43 Acute on chronic combined systolic (congestive) and diastolic (congestive) heart failure; I21.4 Non-ST elevation (NSTEMI) myocardial infarction; E43 Unspecified severe protein-calorie malnutrition; J96.91 Respiratory failure, unspecified with hypoxia; I47.2 Ventricular tachycardia; I47.1 Supraventricular tachycardia; E87.3 Alkalosis; I11.0 Hypertensive heart disease with heart failure; J84.10 Pulmonary fibrosis, unspecified; Z88.1 Allergy status to other antibiotic agents; J44.9 Chronic obstructive pulmonary disease, unspecified; I95.9 Hypotension, unspecified; I51.3 Intracardiac thrombosis, not elsewhere classified; E87.6 Hypokalemia
CPT/HCPCS: 36415; 36600; 71045; 80048; 80053; 80076; 81003; 82803; 83605; 83735; 83880; 84484; 85007; 85025; 85379; 86140; 87040; 93005; 93306; 94640; 96365; 96367; 96375; 99291; J8499; U0002

== ENCOUNTER 2020-05-03 08:37 | Inpatient (IN) | payer MEDICARE ==
[~2020-05-03] VITALS: Ht 157.5 cm; Wt 67.9 kg
[2020-05-03] VITALS (7 sets, daily range): BP systolic 79–145; BP diastolic 50–87
[~2020-05-03 08:37] MED LIST changes: +ASPIRIN EC81 MG ORAL; +DILTIAZEM 24HR120 M2 PO; +ELIQUIS2.5 MG ORAL; +FUROSEMIDE20 M1 ORAL
--- NOTE | 2020-05-03 08:49 | NUR ---
ED Nurse Note: Pt from home and came in due to respiratory distress and asthma exacerbation x 5 days. Denies CPP. Noted bilateral lower extremity swelling and edema. Also noted pt to be tachypneic and more comfortable in high benitez's position. Sats 94 % in room air. ERMD and RT notified.
[2020-05-03] MEDS ORDERED: Solu-MEDROL 125mg Inj IVP ONE (09:00)
[2020-05-03] MEDS: Ipratropium 0.02% Inh Soln 2.5ml UD HHN SCH ×3 (09:03→09:30)
[2020-05-03] MEDS: Albuterol ud Inhalation HHN SCH ×3 (09:08→09:30)
--- NOTE | 2020-05-03 09:10 | NUR ---
ED Nurse Note: RT at the bed side for MDI and breathing treatment.
--- NOTE | 2020-05-03 09:13 | NUR ---
ED Nurse Note: Collected blood then sent.
[2020-05-03 09:23] LABS: BASOPHILS % (AUTO) 1.7 % (0.0-2.0); EOSINOPHILS % (AUTO) 0.3 % (0.0-3.0); HEMATOCRIT 42.2 % (37.0-47.0); HEMOGLOBIN 13.1 G/DL (12.0-16.0); LYMPHOCYTES % (AUTO) 29.3 % (20.0-45.0); MEAN CORPUSCULAR VOLUME 88 FL (80-99); MONOCYTES % (AUTO) 12.1 % (1.0-10.0); NEUTROPHILS % (AUTO) 56.7 % (45.0-75.0); PLATELET COUNT 325 K/UL (150-450); RED BLOOD COUNT 4.82 M/UL (4.20-5.40); RED CELL DISTRIBUTION WIDTH 17.4 % (11.6-14.8); WHITE BLOOD COUNT 5.9 K/UL (4.8-10.8)
[2020-05-03 09:32] LABS: ANION GAP 10 mmol/L (5-15); BLOOD UREA NITROGEN 38 mg/dL (7-18); CALCIUM 9.7 MG/DL (8.5-10.1); CARBON DIOXIDE 31 MMOL/L (21-32); CHLORIDE 100 MMOL/L (98-107); POTASSIUM 4.4 MMOL/L (3.5-5.1); SODIUM 141 MMOL/L (136-145)
--- NOTE | 2020-05-03 09:40 | Emergency Room Report ---
History of Present Illness General Chief Complaint: Dyspnea/Respdistress Source: Patient Present Illness HPI 80-year-old female history of asthma, COPD, CHF here with shortness of breath. Patient says that for the past 5 days she has been using her albuterol inhaler much more than usual. She has had a cough adductive of yellow sputum. Says also that her feet have been slightly more swollen than usual. No fevers, chills, chest pain, palpitation, back, abdominal pain, nausea, vomiting, diarrhea, dysuria. Allergies: Coded Allergies: CIPROFLOXACIN (Verified Allergy, Unknown, 09/27/17) COVID-19 Screening Contact w/high risk pt: No Experienced COVID-19 symptoms?: Yes COVID-19 Testing performed WEB DEVELOPER PROGRAMMER: No Patient History Last Menstrual Period: na Nursing Documentation-[facility] Past Medical History: No History, Except For Hx Cardiac Problems: Yes - CHF Hx Asthma: Yes Hx Cancer: No Hx Gastrointestinal Problems: No Hx Neurological Problems: No Review of Systems All Other Systems: negative except mentioned in HPI Physical Exam Vital Signs Date Time Temp Pulse Resp B/P (MAP) Pulse Ox O2 Delivery O2 Flow Rate FiO2 05/03/20 08:39 98.1 138 25 17/63 (48) 90 Room Air Sp02 EP Interpretation: reviewed, normal General Appearance: no apparent distress, alert, non-toxic Head: normocephalic, atraumatic Eyes: bilateral eye normal inspection, bilateral eye PERRL ENT: hearing grossly normal, normal pharynx, no angioedema, normal voice Neck: full range of motion, supple/symm/no masses Respiratory: chest non-tender, speaking full sentences, other - Diffuse wheezes and expiratory rales in all lung [place] Cardiovascular #1: regular rate, rhythm, no edema Cardiovascular #2: 2+ carotid (R), 2+ carotid (L), 2+ radial (R), 2+ radial (L) , 2+ dorsalis pedis (R), 2+ dorsalis pedis (L) Gastrointestinal: normal bowel sounds, non tender, soft, non-distended, no guarding, no rebound Rectal: deferred Genitourinary: normal inspection, no CVA tenderness Musculoskeletal: back normal, normal range of motion, calf tenderness, gait/ station normal, non-tender Neurologic: alert, motor strength/tone normal, oriented x3, sensory intact, responsive, speech normal Psychiatric: judgement/insight normal, memory normal, mood/affect normal, no suicidal/homicidal ideation Reflexes: 3+ bicep (R), 3+ bicep (L), 3+ tricep (R), 3+ tricep (L), 3+ knee (R) , 3+ knee (L) Lymphatic: no adenopathy Medical Decision Making Diagnostic Impression: Primary Impression: COPD (chronic obstructive pulmonary disease) Additional Impressions: Community acquired pneumonia COVID-19 Atrial fibrillation with RVR Elevated troponin ER Course EKG: Tachycardic 157 bpm. Irregularly irregular rhythm. Atrial fibrillation with rapid ventricular response. Rightward axis. No ST or T wave abnormalities 80-year-old female here with shortness of breath. Patient was COVID positive in the emergency department. Chest x-ray showed patchy interstitial opacities. Patient was started on ceftriaxone and azithromycin. She was wheezing on examination received 125 mg of Solu-Medrol on arrival. MDI was ordered and patient received several puffs with some resolution of her symptoms. She had a normal oxygen saturation in the emergency department on 2 L nasal cannula. She initially was in atrial fibrillation with normal heart rate but heart rate then increased to 157 bpm during her stay in the emergency department. Cardizem bolus and drip were given and the patient then had resolution of her tachycardia but her blood pressure then started to slightly decreased. The Cardizem was stopped and patient was observed in the emergency department for over 1 hour. Her heart rate remained normal and her blood pressure gradually improved. Troponin elevated 0.157, but review of patient's previous records show that she has a consistently elevated troponin. Will be admitted to telemetry. cxr: IMPRESSION: Decreased but persistent patchy consolidations bilaterally, most prominent in the left mid and lower lung. Total critical care time: Approximately 45 minutes Due to a high probability of clinically significant, life threatening deterioration, the patient required the highest level of preparedness to intervene emergently and I personally spent this critical care time directly and personally managing the patient. This critical care time included obtaining a history, examining the patient, pulse oximetry, ordering and reviewing studies , ordering treatments, evaluating response to treatment and updating management plan as needed, frequent reassessment and discussion with other providers as well as arranging for ultimate disposition. This critical to care time was performed to assess and manage the high probability of life-threatening deterioration that could result in multiorgan failure. This critical care time is separate from the separately billable procedures and treating other patients. Laboratory Tests Test 05/03/20 09:00 White Blood Count 5.9 K/UL (4.8-10.8) Red Blood Count 4.82 M/UL (4.20-5.40) Hemoglobin 13.1 G/DL (12.0-16.0) Hematocrit 42.2 % (37.0-47.0) Mean Corpuscular Volume 88 FL (80-99) Mean Corpuscular Hemoglobin 27.3 PG (27.0-31.0) Mean Corpuscular Hemoglobin Concent 31.1 G/DL (32.0-36.0) L Red Cell Distribution Width 17.4 % (11.6-14.8) H Platelet Count 325 K/UL (150-450) Mean Platelet Volume 5.3 FL (6.5-10.1) L Neutrophils (%) (Auto) 56.7 % (45.0-75.0) Lymphocytes (%) (Auto) 29.3 % (20.0-45.0) Monocytes (%) (Auto) 12.1 % (1.0-10.0) H Eosinophils (%) (Auto) 0.3 % (0.0-3.0) Basophils (%) (Auto) 1.7 % (0.0-2.0) Sodium Level 141 MMOL/L (136-145) Potassium Level 4.4 MMOL/L (3.5-5.1) Chloride Level 100 MMOL/L (98-107) Carbon Dioxide Level 31 MMOL/L (21-32) Anion Gap 10 mmol/L (5-15) Blood Urea Nitrogen 38 mg/dL (7-18) H Creatinine 2.0 MG/DL (0.55-1.30) H Estimated Glomerular Filtration Rate 29.1 mL/min (>60) Glucose Level 110 MG/DL (74-106) H Calcium Level 9.7 MG/DL (8.5-10.1) Total Bilirubin 1.7 MG/DL (0.2-1.0) H Direct Bilirubin 0.6 MG/DL (0.0-0.3) H Aspartate Amino Transferase (AST) 95 U/L (15-37) H Alanine Aminotransferase (ALT) 65 U/L (12-78) Alkaline Phosphatase 252 U/L (46-116) H Troponin I 0.154 ng/mL (0.000-0.056) Total Protein 7.8 G/DL (6.4-8.2) Albumin 2.8 G/DL (3.4-5.0) L Globulin 5.0 g/dL Albumin/Globulin Ratio 0.6 (1.0-2.7) L Microbiology Date/Time Source Procedure Growth Status 05/03/20 09:55 Nasopharynx SARS-CoV-2 RdRp Gene Assay - Final Complete Last Vital Signs Date Time Temp Pulse Resp B/P (MAP) Pulse Ox O2 Delivery O2 Flow Rate FiO2 05/03/20 08:49 138 25 Room Air 05/03/20 08:39 98.1 17 (48) 90 Referrals: NON PHYSICIAN (PCP) Syed Byrne M.D. May 03, 2020 09:40
[2020-05-03 09:42] LABS: ALANINE AMINOTRANSFERASE 65 U/L (12-78); ALBUMIN 2.8 G/DL (3.4-5.0); ALBUMIN/GLOBULIN RATIO 0.6 (1.0-2.7); ALKALINE PHOSPHATASE 252 U/L (46-116); ASPARTATE AMINO TRANSFERASE 95 U/L (15-37); BILIRUBIN,TOTAL 1.7 MG/DL (0.2-1.0)
[2020-05-03 09:43] LABS: BILIRUBIN,DIRECT 0.6 MG/DL (0.0-0.3)
[2020-05-03] MEDS ORDERED: Azithromycin 500 MG in D5W 275 ML IVPB ONE (09:45)
[2020-05-03] MEDS ORDERED: cefTRIAXone 1 GM in NS 55 ML IVPB ONE (09:45)
[2020-05-03] MEDS ORDERED: dilTIAZem HCl 25mg/5ml Inj IVP ONE (10:00)
[2020-05-03] MEDS ORDERED: dilTIAZem Premix 125mg/125ml 125 ML IVPB ONE (10:00)
[2020-05-03] MEDS ORDERED: Acetaminophen 500mg (ES) tab ORAL PRN (10:45)
--- NOTE | 2020-05-03 10:45 | NUR ---
ED Nurse Note: Dr Byrne aware of troponin 0.154 with no new orders given at this time.
--- NOTE | 2020-05-03 10:56 | Diagnostic Imaging Report ---
EXAM: XR Chest, 1 View CLINICAL HISTORY: SOB TECHNIQUE: Frontal view of the chest. COMPARISON: Chest radiograph on 04/11/2020 FINDINGS: Hardware: None. Lungs/pleura: Decreased but persistent patchy consolidations bilaterally, most prominent in the left mid and lower lung. Decreased pleural effusions. Heart/mediastinum: Stable enlargement of the cardiac silhouette. Atherosclerotic calcifications of the aorta. Soft tissues: Unremarkable. Bones: No acute fracture. Upper abdomen: Normal. IMPRESSION: Decreased but persistent patchy consolidations bilaterally, most prominent in the left mid and lower lung.
--- NOTE | 2020-05-03 10:58 | NUR ---
ED Nurse Note: Patient states that she doesn't feel good. Pt on cardiac cath technician NSR at 75. Dr Byrne notifed and waiting for new orders.
[2020-05-03] MEDS ORDERED: Albuterol/Ipratropium 3ml neb HHN SCH (11:00)
[2020-05-03] MEDS ORDERED: DILTIAZEM HCL 120 MG ORAL SCH ×3 (11:00→21:45)
[2020-05-03] MEDS ORDERED: Aspirin EC 81mg tab ORAL SCH ×2 (11:00→14:00)
[2020-05-03] MEDS ORDERED: Wixela 100/50 Inhaler - 60 dose INH SCH (11:00)
[2020-05-03] MEDS ORDERED: Eliquis 2.5mg tablet ORAL SCH (11:00)
--- NOTE | 2020-05-03 11:08 | NUR ---
ED Nurse Note: BP went anthony to 84/62. Cardizem drip stopped and DR Byrne notified. RN started IV fluids bolus and ERMD aware.
--- NOTE | 2020-05-03 11:08 | NUR ---
Note alba in EDM - 05/03/20 at 1110 by ANNELIESE ED Nurse Note: BP went anthony to 54/62. Luz villavicencio stopped and DR Byrne notified. RN started IV fluids bolus and ERMD aware.
--- NOTE | 2020-05-03 11:58 | NUR ---
ED Nurse Note: Patient still not feeling okay and Dr Pelaez was notifed of BP 79/54.
--- NOTE | 2020-05-03 13:25 | NUR ---
ED Nurse Note: Report given to Rosalvai RN of telemetry unit.
[2020-05-03] MEDS ORDERED: Heparin 5000 units/ml inj SUBQ SCH (14:00)
[2020-05-03] MEDS ORDERED: Solu-MEDROL 125mg Inj IVP SCH (14:00)
[2020-05-03] MEDS ORDERED: cefTRIAXone 1 GM in D5W 55 ML IVPB SCH ×2 (14:00→15:30)
--- NOTE | 2020-05-03 14:30 | NUR ---
NURSE NOTES: Pt was transferred to the unit. Received report from DEONDRE Delatorre RN. Pt awake, A/O x4, denies any pain, no s/sx of acute distress. VS WNL (BP 103/65, HR 100, O2 sat 93% in RA, Temp 97.2). Admission assessment performed. IV sites patent and asymptomatic. Belongings checked. Bed on lowest position, call light within reach. Will continue plan of care.
[2020-05-03] MEDS: DILTIAZEM HCL 120 MG ORAL SCH (16:00)
[2020-05-03] MEDS: Solu-MEDROL 125mg Inj IVP SCH ×2 (16:56→23:48)
[2020-05-03] MEDS: Aspirin EC 81mg tab ORAL SCH (16:57)
[2020-05-03] MEDS: cefTRIAXone 1 GM in D5W 55 ML IVPB SCH (16:58)
[2020-05-03] MEDS: Eliquis 2.5mg tablet ORAL SCH (17:49)
[2020-05-03] MEDS: Wixela 100/50 Inhaler - 60 dose INH SCH (17:50)
--- NOTE | 2020-05-03 18:55 | Pulmonology Progress Note ---
Subjective ROS Limited/Unobtainable: No Allergies: Coded Allergies: CIPROFLOXACIN (Verified Allergy, Unknown, 09/27/17) Objective Last 24 Hour Vital Signs Date Time Temp Pulse Resp B/P (MAP) Pulse Ox O2 Delivery O2 Flow Rate FiO2 05/03/20 16:00 97.2 100 20 103/65 (78) 93 05/03/20 16:00 100 103/65 05/03/20 15:14 135 05/03/20 15:02 Room Air 05/03/20 13:25 98.4 98 20 103/50 95 Room Air 05/03/20 11:59 98.4 96 23 79/54 93 Room Air 05/03/20 11:05 98.4 79 25 84/62 94 Room Air 05/03/20 10:06 78 114/78 05/03/20 09:40 98.4 116 22 102/55 96 Room Air 05/03/20 09:15 79 22 100 Room Air 21 87 22 94 05/03/20 09:03 87 22 94 Room Air 21 05/03/20 08:49 98.1 120 25 145/87 94 Room Air 05/03/20 08:49 138 25 Room Air 05/03/20 08:39 98.1 138 25 17/63 (48) 90 Room Air Microbiology Date/Time Source Procedure Growth Status 05/03/20 09:55 Nasopharynx SARS-CoV-2 RdRp Gene Assay - Final Complete Laboratory Tests 05/03/20 09:00: White Blood Count 5.9, Red Blood Count 4.82, Hemoglobin 13.1, Hematocrit 42.2, Mean Corpuscular Volume 88, Mean Corpuscular Hemoglobin 27.3, Mean Corpuscular Hemoglobin Concent 31.1L, Red Cell Distribution Width 17.4H, Platelet Count 325 , Mean Platelet Volume 5.3L, Neutrophils (%) (Auto) 56.7, Lymphocytes (%) (Auto ) 29.3, Monocytes (%) (Auto) 12.1H, Eosinophils (%) (Auto) 0.3, Basophils (%) ( Auto) 1.7, Sodium Level 141, Potassium Level 4.4, Chloride Level 100, Carbon Dioxide Level 31, Anion Gap 10, Blood Urea Nitrogen 38H, Creatinine 2.0H, Estimat Glomerular Filtration Rate 29.1, Glucose Level 110H, Calcium Level 9.7, Total Bilirubin 1.7H, Direct Bilirubin 0.6H, Aspartate Amino Transf (AST/SGOT) 95H, Alanine Aminotransferase (ALT/SGPT) 65, Alkaline Phosphatase 252H, Troponin I 0.154H, Total Protein 7.8, Albumin 2.8L, Globulin 5.0, Albumin/ Globulin Ratio 0.6L Current Medications Medications (Trade) Dose Ordered Sig/Ghislaine Route PRN Reason Start Time Stop Time Status Last Admin Dose Admin Acetaminophen (Tylenol) 500 mg Q4H PRN ORAL Mild Pain (Pain Scale 1-3) 05/03/20 10:45 06/02/20 10:44 Albuterol Sulfate (Proventil MDI) 2 puff Q4H PRN INH Shortness of Breath 05/03/20 09:00 08/01/20 08:59 Apixaban (Eliquis) 2.5 mg BID ORAL 05/03/20 18:00 08/01/20 17:59 05/03/20 17:49 Aspirin (Ecotrin) 81 mg DAILY ORAL 05/03/20 16:00 06/17/20 15:59 05/03/20 16:57 Ceftriaxone Sodium 1 gm/ Dextrose 55 ml @ 110 mls/hr Q24H IVPB 05/03/20 17:00 05/10/20 16:59 05/03/20 16:58 Diltiazem HCl (Cardizem CD) 120 mg DAILY ORAL 05/03/20 16:00 06/02/20 15:59 Methylprednisolone Sodium Succinate (Solu-MEDROL) 60 mg Q8H IVP 05/03/20 16:00 08/01/20 15:59 05/03/20 16:56 Pantoprazole (Protonix) 40 mg DAILY ORAL 05/03/20 16:00 06/02/20 15:59 05/03/20 16:57 Salmeterol Xinafoate/ Fluticasone (Advair 100/50 Diskus) 1 puffs TWICE A DAY INH 05/03/20 18:00 08/01/20 17:59 05/03/20 17:50 Assessment/Plan Assessment/Plan Pulmonary Consultation HPI Patient is a 80-year-old female history of Chronic Obstructive Pulmonary Disease /Asthma, Congestive Heart Failure, on maintenance Eliquis,admitted with shortness of breath, worse over the pastt 5 days, she has been using her albuterol inhaler more than usual. Complains of a cough adductive of yellow sputum. Says also that her feet have been slightly more swollen than usual. Patient denies fevers, chills, chest pain, palpitation, back, abdominal pain, nausea, vomiting, diarrhea, dysuria. Noted to be positive for Covid19 in the ED Allergies: CIPROFLOXACIN Social History: NC Family History: NC All Other Systems: negative except mentioned in HPI Physical Exam Vital Signs Noted Date Time Temp Pulse Resp B/P (MAP) Pulse Ox O2 Delivery O2 Flow Rate FiO2 05/03/20 08:39 98.1 138 25 17/63 (48) 90 Room Air General Appearance: no apparent distress, alert, non-toxic Head: normocephalic, atraumatic Eyes: NCAT, PERRL ENT: moist mm Neck: no masses Respiratory: chest non-tender, speaking full sentences, other - bilateral wheezing Cardiovascular: irregular rhythm, HS1, HS2 normal, no edema Gastrointestinal: normal bowel sounds, non tender, soft, non-distended, no guarding, no rebound Rectal: deferred Genitourinary: normal inspection, no CVA tenderness Musculoskeletal: back normal, normal range of motion, calf tenderness, gait/ station normal, non-tender Neurologic: alert, motor strength/tone normal, oriented x3, sensory intact, responsive, speech normal Lymphatic: no adenopathy Impression: COVID-19 Chronic obstructive pulmonary disease/Asthma Community acquired pneumonia Atrial fibrillation with RVR Elevated troponin Congestive heart Failure Plan Continue IV Antibiotics IV Steroids Bronchodilator therapy O2 PRN PPX: On Eliquis Monitor labs Covid 19 Isolation PTAMedications CXR: Decreased but persistent patchy consolidations bilaterally, most prominent in the left mid and lower lung. EKG: Atrial fibrillation, RVR Laboratory Tests Test 05/03/20 09:00 White Blood Count 5.9 K/UL (4.8-10.8) Red Blood Count 4.82 M/UL (4.20-5.40) Hemoglobin 13.1 G/DL (12.0-16.0) Hematocrit 42.2 % (37.0-47.0) Mean Corpuscular Volume 88 FL (80-99) Mean Corpuscular Hemoglobin 27.3 PG (27.0-31.0) Mean Corpuscular Hemoglobin Concent 31.1 G/DL (32.0-36.0) L Red Cell Distribution Width 17.4 % (11.6-14.8) H Platelet Count 325 K/UL (150-450) Mean Platelet Volume 5.3 FL (6.5-10.1) L Neutrophils (%) (Auto) 56.7 % (45.0-75.0) Lymphocytes (%) (Auto) 29.3 % (20.0-45.0) Monocytes (%) (Auto) 12.1 % (1.0-10.0) H Eosinophils (%) (Auto) 0.3 % (0.0-3.0) Basophils (%) (Auto) 1.7 % (0.0-2.0) Sodium Level 141 MMOL/L (136-145) Potassium Level 4.4 MMOL/L (3.5-5.1) Chloride Level 100 MMOL/L (98-107) Carbon Dioxide Level 31 MMOL/L (21-32) Anion Gap 10 mmol/L (5-15) Blood Urea Nitrogen 38 mg/dL (7-18) H Creatinine 2.0 MG/DL (0.55-1.30) H Estimated Glomerular Filtration Rate 29.1 mL/min (>60) Glucose Level 110 MG/DL (74-106) H Calcium Level 9.7 MG/DL (8.5-10.1) Total Bilirubin 1.7 MG/DL (0.2-1.0) H Direct Bilirubin 0.6 MG/DL (0.0-0.3) H Aspartate Amino Transferase (AST) 95 U/L (15-37) H Alanine Aminotransferase (ALT) 65 U/L (12-78) Alkaline Phosphatase 252 U/L (46-116) H Troponin I 0.154 ng/mL (0.000-0.056) Total Protein 7.8 G/DL (6.4-8.2) Albumin 2.8 G/DL (3.4-5.0) L Globulin 5.0 g/dL Albumin/Globulin Ratio 0.6 (1.0-2.7) L Microbiology Date/Time Source Procedure Growth Result 05/03/20 09:55 Nasopharynx SARS-CoV-2 RdRp Gene Assay - Final Positive Simoen Anguiano MD May 03, 2020 18:55
--- NOTE | 2020-05-03 19:19 | NUR ---
NURSE HAND-OFF REPORT: Important Events on Shift: new admit Patient Status: stable Diet: cardiac Pending Orders: labs tomorrow Pending Results/Labs: Pending MD notification: Latest Vital Signs: Temperature 97.2 , Pulse 100 , B/P 103 /65 , Respiratory Rate 20 , O2 SAT 93 , Room Air, O2 Flow Rate . Vital Sign Comment: EKG Rhythm: Atrial Fibrillation Rhythm change?: N MD Notified?: N - MD Response: Latest Lechuga Fall Score: 45 Fall Risk: High Risk Safety Measures: Call light Within Reach, Bed Alarm Zone 1, Side Rails Side Rails x2, Bed position Low and Locked. Fall Precautions: Patient Fall Education Report given to DAMIAN Davila.
--- NOTE | 2020-05-03 19:25 | NUR ---
NURSE NOTES: Received report from DAMIAN Pond. Patient is awake on bed, alert and oriented x 3. alarm security or surveillance monitor is in place shows atrial fibrillation on 118 HR at this time. On cardiac diet, instructed and amenable. Patient can ambulate but needs assistance. Patient is on fall precaution. IV site is on right AC g-18 saline lock and left AC G-20 saline lock that is patent and intact. Safety precaution is in place, bed in lowest and locked position, side rails up x 2. Call light button and bedside table within reach, instructed to call for any assistance needed. Will continue plan of care.
--- NOTE | 2020-05-03 20:20 | NUR ---
NURSE NOTES: Patient is still on Afib HR of 130's, informed Dr. Jefferson and Dr. Anguiano. At this time patient denies any SOB nor chest pain. Will continue to monitor.
--- NOTE | 2020-05-03 21:32 | NUR ---
NURSE NOTES: Spoke with Dr. Anguiano, updated MD regarding patient present condition. No orders received.
[2020-05-04] VITALS: BP 103/66
[2020-05-04 04:00] VITALS: BP 93/51
[2020-05-04 05:43] LABS: BLOOD UREA NITROGEN 42 mg/dL (7-18); CALCIUM 9.3 MG/DL (8.5-10.1); CARBON DIOXIDE 28 MMOL/L (21-32); CREATININE 2.5 MG/DL (0.55-1.30); POTASSIUM 3.6 MMOL/L (3.5-5.1)
[2020-05-04 05:53] LABS: ALANINE AMINOTRANSFERASE 95 U/L (12-78); ALBUMIN 2.6 G/DL (3.4-5.0); ALBUMIN/GLOBULIN RATIO 0.6 (1.0-2.7); ALKALINE PHOSPHATASE 221 U/L (46-116); ASPARTATE AMINO TRANSFERASE 145 U/L (15-37); BILIRUBIN,TOTAL 1.3 MG/DL (0.2-1.0)
[2020-05-04 06:25] LABS: BILIRUBIN,DIRECT 0.6 MG/DL (0.0-0.3); CHLORIDE 100 MMOL/L (98-107); SODIUM 139 MMOL/L (136-145)
--- NOTE | 2020-05-04 07:05 | NUR ---
NURSE HAND-OFF REPORT: Important Events on Shift: Patient is still on Afib, ith HR of 110's Patient Status: Patient is asleep on bed, in stable condition, without complaints made at this time Diet: Cardiac diet Pending Orders: none Pending Results/Labs:none Pending MD notification: Latest Vital Signs: Temperature 97.0 , Pulse 105 , B/P 93 /51 , Respiratory Rate 24 , O2 SAT 98 , Nasal Cannula, O2 Flow Rate 2.0 . Vital Sign Comment: EKG Rhythm: Atrial Fibrillation Rhythm change?: N MD Notified?: N - MD Response: Latest Lechuga Fall Score: 60 Fall Risk: High Risk Safety Measures: Call light Within Reach, Bed Alarm Zone 1, Side Rails Side Rails x2, Bed position Low and Locked. Fall Precautions: Yellow Socks Yellow Gown Door Sign Patient Fall Education Report given to DAMIAN Catalan
--- NOTE | 2020-05-04 07:08 | NUR ---
NURSE NOTES: Received report from Ivanna/RN. Patient in bed resting comfortable in semi-benitez position. On 2L nasal cannula, no distress or SOB noted at this time. Pt is able to make needs known. IV on left AC 20G and right AC 18G, SL, patent and clean. Bed in lowest position and locked. Call light within reach encourage to use it when need it. Side rails up X3. Will continue plan of care.
[2020-05-04 08:00] VITALS: BP 99/71
[2020-05-04] MEDS: Solu-MEDROL 125mg Inj IVP SCH ×2 (08:53→16:30)
[2020-05-04] MEDS: Aspirin EC 81mg tab ORAL SCH (08:53)
[2020-05-04] MEDS: Eliquis 2.5mg tablet ORAL SCH ×2 (08:53→17:26)
[2020-05-04] MEDS: DILTIAZEM HCL 120 MG ORAL SCH ×2 (08:54→17:29)
[2020-05-04] MEDS: Wixela 100/50 Inhaler - 60 dose INH SCH ×2 (09:09→18:04)
--- NOTE | 2020-05-04 09:14 | History and Physical Report ---
DATE OF ADMISSION: 05/03/2020 CHIEF COMPLAINT: COPD/asthma exacerbation. HISTORY OF PRESENT ILLNESS: Patient is an 80-year-old female. She has a history of congestive heart failure, COPD, asthma. She has recent hospitalization in February for COVID. She presents with complaints of worsening chest tightness and shortness of breath for several days. On evaluation in the emergency room, she was noted to be wheezing. She was placed on supplemental oxygen. X-ray there showed decreased, but persistent patchy consolidations. She was started on IV steroids and breathing treatments. She is now admitted for further evaluation and care. PAST MEDICAL HISTORY: As above. PAST SURGICAL HISTORY: None. CURRENT MEDICATIONS: Reconciled and reviewed. ALLERGIES: Include ciprofloxacin. FAMILY HISTORY: Noncontributory. SOCIAL HISTORY: There is no known history of tobacco, ethanol, or drugs. REVIEW OF SYSTEMS: GENERAL: No fevers or chills. HEENT: No headaches or visual changes. CARDIOPULMONARY: Chest pain. Positive shortness of breath and wheezing. GASTROINTESTINAL: No nausea or vomiting. GENITOURINARY: No urgency or frequency. MUSCULOSKELETAL: No joint pain or swelling. NEUROLOGIC: No history of seizures. PHYSICAL EXAMINATION: VITAL SIGNS: Temperature 98, pulse 72, respirations 18, blood pressure 97/49. GENERAL: Patient is well-developed, thin female, in no apparent distress. She is awake, alert, and oriented x3. NECK: Supple. No jugular venous distention. HEART: Regular rate and rhythm. LUNGS: Significant scattered wheezes with rhonchi, right greater than left. ABDOMEN: Soft, nontender, nondistended. EXTREMITIES: Without clubbing, cyanosis, or edema. LABORATORY DATA: White count was 5.9, hemoglobin 13, hematocrit 42, platelets of 325. Sodium 141, potassium 4.4, chloride 101, bicarb 31, BUN 38, creatinine was 2. ASSESSMENT: This is an elderly female with a history of COPD, congestive heart failure admitted with complaints of shortness of breath secondary to COPD/asthma exacerbation. PLAN: IV steroids. MDI treatments. Pulmonary consultation. Cardiology consultation will be obtained. We will trend patient's troponin level. Monitor renal function. Empiric antibiotic therapy to cover for pneumonia. ID consultation will also be obtained. Bradford Linn M.D. DR: GLENN JOB#: [id number] CC:
--- NOTE | 2020-05-04 11:44 | Consultation ---
DATE OF CONSULTATION: 05/04/2020 INFECTIOUS DISEASES CONSULTATION CONSULTING PHYSICIAN: Camilo Cameron MD. REFERRING PHYSICIAN: Bradford Linn MD. REASON FOR CONSULTATION: COVID-19 pneumonia. HISTORY OF PRESENTING ILLNESS: This is an 80-year-old lady with COPD, asthma, congestive heart failure order, recent hospitalization on February for COVID now comes in with chest tightness and shortness of breath. She was started on steroids and an Infectious Diseases consultation has been obtained for antibiotics. She was found to be COVID positive. PAST MEDICAL HISTORY: 1. History of congestive heart failure. 2. History of COPD. 3. History of asthma. 4. History of COVID-19 pneumonia. SOCIAL HISTORY: She does not smoke, drink, or use drugs. FAMILY HISTORY: Noncontributory. REVIEW OF SYSTEMS: RESPIRATORY: No fever or chills. No cough. She has shortness of breath. No chest pain. CARDIAC: No chest pain. No palpitation. No dizziness. No syncope. GASTROINTESTINAL: No nausea. No vomiting. No abdominal pain or diarrhea. MEDICATIONS: As an inpatient, she is on Eliquis, Advair, ceftriaxone, Solu-Medrol, Protonix, aspirin, diltiazem, Tylenol, albuterol. ALLERGIES: Cipro. PHYSICAL EXAMINATION: VITAL SIGNS: Temperature of 97.5, T-max of 98.4, pulse of 96, respiratory rate 20, blood pressure 99/71, O2 saturation of 100%. Examination deferred due to COVID-19 LABORATORY AND DIAGNOSTIC DATA: White count 5.9, hemoglobin 13.1, hematocrit 42.2, MCV 88, platelet count 325, neutrophils of 56%. Sodium 139, potassium 3.6, chloride 100, bicarb 28, BUN 42, creatinine 2.5, glucose 148, calcium 9.3. Total bilirubin 1.3, direct bilirubin 0.6, AST 145, ALT 95, alkaline phosphatase 221. Troponin 0.16. Total protein 7.2, albumin 2.6. COVID-19 test is positive. Chest x-ray is showing decreased but persistent patchy consolidations bilaterally, most prominent in the left mid and lower lung. ASSESSMENT: This an 80-year-old lady with history of congestive heart failure, COPD, asthma, COVID-19 pneumonia who comes in with shortness of breath and is found to have. 1. COVID-19 test positive with pneumonia. She is currently on 2 liters of oxygen with O2 saturation of 100%. 2. COPD. 3. Congestive heart failure. 4. Asthma. PLAN: 1. We will give one dose of ivermectin today. I explained the patient benefits and risks and she is agreeable to it. 2. Continue Solu-Medrol. 3. Continue ceftriaxone. 4. Continue isolation. I would like to thank, Dr. Linn, for this consultation. Camilo Cameron M.D. DR: Nu JOB#: [id number] CC: Bradford Linn M.D.
[2020-05-04 12:00] VITALS: BP 96/60
--- NOTE | 2020-05-04 13:20 | Pulmonology Progress Note ---
Subjective ROS Limited/Unobtainable: No Allergies: Coded Allergies: CIPROFLOXACIN (Verified Allergy, Unknown, 09/27/17) Objective Last 24 Hour Vital Signs Date Time Temp Pulse Resp B/P (MAP) Pulse Ox O2 Delivery O2 Flow Rate FiO2 05/04/20 12:00 107 05/04/20 12:00 97.9 94 20 96/60 (72) 100 05/04/20 09:00 Nasal Cannula 2.0 05/04/20 08:54 96 99/71 05/04/20 08:00 115 05/04/20 08:00 97.5 96 20 99/71 (80) 100 05/04/20 04:00 97.0 105 24 93/51 (65) 98 05/04/20 04:00 108 05/04/20 00:00 96.8 128 28 103/66 (78) 98 05/04/20 00:00 126 05/03/20 22:05 135 109/72 05/03/20 21:00 Nasal Cannula 2.0 05/03/20 20:00 97.2 139 28 106/72 (83) 97 05/03/20 20:00 137 05/03/20 16:00 97.2 100 20 103/65 (78) 93 05/03/20 16:00 100 103/65 05/03/20 15:14 135 05/03/20 15:02 Room Air 05/03/20 13:25 98.4 98 20 103/50 95 Room Air Intake and Output 05/03/20 05/04/20 19:00 07:00 Intake Total 570 ml 360 ml Balance 570 ml 360 ml Intake Oral 240 ml IV Total 330 ml Other 360 ml # Voids 2 1 # Bowel Movements 1 2 Microbiology Date/Time Source Procedure Growth Status 05/03/20 09:55 Nasopharynx SARS-CoV-2 RdRp Gene Assay - Final Complete Laboratory Tests 05/04/20 04:00: Sodium Level 139, Potassium Level 3.6, Chloride Level 100, Carbon Dioxide Level 28, Blood Urea Nitrogen 42H, Creatinine 2.5H, Estimat Glomerular Filtration Rate 22.5, Glucose Level 148H, Calcium Level 9.3, Total Bilirubin 1.3H, Direct Bilirubin 0.6H, Aspartate Amino Transf (AST/SGOT) 145H, Alanine Aminotransferase (ALT/SGPT) 95H, Alkaline Phosphatase 221H, Troponin I 0.160H, Total Protein 7.2, Albumin 2.6L, Globulin 4.6, Albumin/Globulin Ratio 0.6L Current Medications Medications (Trade) Dose Ordered Sig/Ghislaine Route PRN Reason Start Time Stop Time Status Last Admin Dose Admin Acetaminophen (Tylenol) 500 mg Q4H PRN ORAL Mild Pain (Pain Scale 1-3) 05/03/20 10:45 06/02/20 10:44 Albuterol Sulfate (Proventil MDI) 2 puff Q4H PRN INH Shortness of Breath 05/03/20 09:00 08/01/20 08:59 Apixaban (Eliquis) 2.5 mg BID ORAL 05/03/20 18:00 08/01/20 17:59 05/04/20 08:53 Aspirin (Ecotrin) 81 mg DAILY ORAL 05/03/20 16:00 06/17/20 15:59 05/04/20 08:53 Ceftriaxone Sodium 1 gm/ Dextrose 55 ml @ 110 mls/hr Q24H IVPB 05/03/20 17:00 05/10/20 16:59 05/03/20 16:58 Diltiazem HCl (Cardizem CD) 120 mg DAILY ORAL 05/03/20 16:00 06/02/20 15:59 Methylprednisolone Sodium Succinate (Solu-MEDROL) 60 mg Q8H IVP 05/03/20 16:00 08/01/20 15:59 05/04/20 08:53 Pantoprazole (Protonix) 40 mg DAILY ORAL 05/03/20 16:00 06/02/20 15:59 05/04/20 08:53 Salmeterol Xinafoate/ Fluticasone (Advair 100/50 Diskus) 1 puffs TWICE A DAY INH 05/03/20 18:00 08/01/20 17:59 05/04/20 09:09 Assessment/Plan Assessment/Plan Pulmonary Progress Note HPI Patient is a 80-year-old female history of Chronic Obstructive Pulmonary Disease /Asthma, Congestive Heart Failure, on maintenance Eliquis,admitted with shortness of breath, worse over the pastt 5 days, she has been using her albuterol inhaler more than usual. Complains of a cough adductive of yellow sputum. Says also that her feet have been slightly more swollen than usual. Patient denies fevers, chills, chest pain, palpitation, back, abdominal pain, nausea, vomiting, diarrhea, dysuria. StableO2 rashmi, intermittent RVR overight Noted to be positive for Covid19 in the ED Allergies: CIPROFLOXACIN Physical Exam Vital Signs Noted, sats 94% 2LNC PE: Deferred Covid 19 Impression: COVID-19 Chronic obstructive pulmonary disease/Asthma Community acquired pneumonia Atrial fibrillation with RVR Elevated troponin Congestive heart Failure Plan Continue IV Antibiotics per iD IV Steroids Bronchodilator therapy O2 PRN PPX: On Eliquis Monitor labs Covid 19 Isolation PTAM edications CXR: Decreased but persistent patchy consolidations bilaterally, most prominent in the left mid and lower lung. EKG: Atrial fibrillation, RVR Laboratory Tests Test 05/03/20 09:00 White Blood Count 5.9 K/UL (4.8-10.8) Red Blood Count 4.82 M/UL (4.20-5.40) Hemoglobin 13.1 G/DL (12.0-16.0) Hematocrit 42.2 % (37.0-47.0) Mean Corpuscular Volume 88 FL (80-99) Mean Corpuscular Hemoglobin 27.3 PG (27.0-31.0) Mean Corpuscular Hemoglobin Concent 31.1 G/DL (32.0-36.0) L Red Cell Distribution Width 17.4 % (11.6-14.8) H Platelet Count 325 K/UL (150-450) Mean Platelet Volume 5.3 FL (6.5-10.1) L Neutrophils (%) (Auto) 56.7 % (45.0-75.0) Lymphocytes (%) (Auto) 29.3 % (20.0-45.0) Monocytes (%) (Auto) 12.1 % (1.0-10.0) H Eosinophils (%) (Auto) 0.3 % (0.0-3.0) Basophils (%) (Auto) 1.7 % (0.0-2.0) Sodium Level 141 MMOL/L (136-145) Potassium Level 4.4 MMOL/L (3.5-5.1) Chloride Level 100 MMOL/L (98-107) Carbon Dioxide Level 31 MMOL/L (21-32) Anion Gap 10 mmol/L (5-15) Blood Urea Nitrogen 38 mg/dL (7-18) H Creatinine 2.0 MG/DL (0.55-1.30) H Estimated Glomerular Filtration Rate 29.1 mL/min (>60) Glucose Level 110 MG/DL (74-106) H Calcium Level 9.7 MG/DL (8.5-10.1) Total Bilirubin 1.7 MG/DL (0.2-1.0) H Direct Bilirubin 0.6 MG/DL (0.0-0.3) H Aspartate Amino Transferase (AST) 95 U/L (15-37) H Alanine Aminotransferase (ALT) 65 U/L (12-78) Alkaline Phosphatase 252 U/L (46-116) H Troponin I 0.154 ng/mL (0.000-0.056) Total Protein 7.8 G/DL (6.4-8.2) Albumin 2.8 G/DL (3.4-5.0) L Globulin 5.0 g/dL Albumin/Globulin Ratio 0.6 (1.0-2.7) L Microbiology Date/Time Source Procedure Growth Result 05/03/20 09:55 Nasopharynx SARS-CoV-2 RdRp Gene Assay - Final Positive Simone Anguiano MD May 04, 2020 13:20
[2020-05-04 16:00] VITALS: BP 98/60
[2020-05-04] MEDS: cefTRIAXone 1 GM in D5W 55 ML IVPB SCH (16:29)
--- NOTE | 2020-05-04 16:51 | Cardiology Progress Note ---
Subjective DATE OF SERVICE: May 04, 2020 Less SOB On 2-3l n/c Monitor: AFIb with episodes of RVR Poor oral intake D/W RN - urine output poor; labs reveal worsening renal function. Objective Last 24 Hour Vital Signs Date Time Temp Pulse Resp B/P (MAP) Pulse Ox O2 Delivery O2 Flow Rate FiO2 05/04/20 12:00 107 05/04/20 12:00 97.9 94 20 96/60 (72) 100 05/04/20 09:00 Nasal Cannula 2.0 05/04/20 08:54 96 99/71 05/04/20 08:00 115 05/04/20 08:00 97.5 96 20 99/71 (80) 100 05/04/20 04:00 97.0 105 24 93/51 (65) 98 05/04/20 04:00 108 05/04/20 00:00 96.8 128 28 103/66 (78) 98 05/04/20 00:00 126 05/03/20 22:05 135 109/72 05/03/20 21:00 Nasal Cannula 2.0 05/03/20 20:00 97.2 139 28 106/72 (83) 97 05/03/20 20:00 137 ROS: unchanged from my eval of 05/03/20 LUNGS: no accessory muscle use, expiratory wheezing - minimal, diminished breath sounds CARDIAC: normal S1 and S2, no murmur, irregularly irregular ABDOMEN: normal bowel sounds, non tender, soft, no organomegaly EXTREMITIES: no calf tenderness, trace edema Laboratory Tests Test 05/04/20 04:00 Sodium Level 139 MMOL/L (136-145) Potassium Level 3.6 MMOL/L (3.5-5.1) Chloride Level 100 MMOL/L (98-107) Carbon Dioxide Level 28 MMOL/L (21-32) Blood Urea Nitrogen 42 mg/dL (7-18) H Creatinine 2.5 MG/DL (0.55-1.30) H Estimat Glomerular Filtration Rate 22.5 mL/min (>60) Glucose Level 148 MG/DL (74-106) H Calcium Level 9.3 MG/DL (8.5-10.1) Total Bilirubin 1.3 MG/DL (0.2-1.0) H Direct Bilirubin 0.6 MG/DL (0.0-0.3) H Aspartate Amino Transf (AST/SGOT) 145 U/L (15-37) H Alanine Aminotransferase (ALT/SGPT) 95 U/L (12-78) H Alkaline Phosphatase 221 U/L (46-116) H Troponin I 0.160 ng/mL (0.000-0.056) Total Protein 7.2 G/DL (6.4-8.2) Albumin 2.6 G/DL (3.4-5.0) L Globulin 4.6 g/dL Albumin/Globulin Ratio 0.6 (1.0-2.7) L Microbiology Date/Time Source Procedure Growth Status 05/03/20 09:55 Nasopharynx SARS-CoV-2 RdRp Gene Assay - Final Complete Assessment/Plan Assessment/Plan COPD exacerb Covid 19 PNA Acute on chr renal failure Chronic systolic/diastolic CHF Pulmonary fibrosis with chronic hypoxia Paroxysmal AFib with RVR - improved Hx Multifocal atrial arrhythmias Pulmonary HTN - severe Hx NSVTach Acute myocardial ischemia Steroids Anti-viral therapy Inhaled bronchodilators IVF added Replace potassium; check Mg++ No diuresis at present Full anticoagulation for cardioembolic prophyl Simone Perez MD May 04, 2020 16:50
--- NOTE | 2020-05-04 19:08 | NUR ---
NURSE HAND-OFF REPORT: Important Events on Shift:Low Blood pressure, no urine output Patient Status: Stable Diet: Cardiac Pending Orders: Pending Results/Labs: Pending MD notification: Latest Vital Signs: Temperature 97.9 , Pulse 89 , B/P 98 /60 , Respiratory Rate 20 , O2 SAT 96 , Nasal Cannula, O2 Flow Rate 2.0 . Vital Sign Comment: Stable EKG Rhythm: Atrial Fibrillation Rhythm change?: N MD Notified?: N - MD Response: Latest Lechuga Fall Score: 60 Fall Risk: High Risk Safety Measures: Call light Within Reach, Bed Alarm Zone 1, Side Rails Side Rails x2, Bed position Low and Locked. Fall Precautions: Yellow Socks Yellow Gown Door Sign Patient Fall Education Report given to Ivanna/RN.
--- NOTE | 2020-05-04 19:21 | NUR ---
NURSE NOTES: Received report from DAMIAN Catalan. Patient is awake, alert and oriented x 3, forgetful. On cardiac diet, instructed and amenable. With oxygen via nasal cannula @ 2Lpm, sating 96%. night monitor is in place, shows atrial fibrillation, with no chest pain reported. IV site is on left AC G-20 running fluid of 1/2 NS @ 75 cc/hour that is patent and intact. Patient is on fall precaution. Safety measures are in place, bed in lowest and locked position, side rails up x 2. Call light button and bedside table within reach, instructed to call for any assistance needed. Will continue plan of care.
[2020-05-04 20:00] VITALS: BP 93/65
[2020-05-05] VITALS: BP 98/69
[2020-05-05] MEDS: Solu-MEDROL 125mg Inj IVP SCH ×2 (03:47→16:42)
[2020-05-05 04:00] VITALS: BP 101/52
[2020-05-05] MEDS: Albuterol 90mcg Inhaler 8gm INH PRN (04:45)
[2020-05-05 07:09] LABS: ALANINE AMINOTRANSFERASE 120 U/L (12-78); ALBUMIN 2.6 G/DL (3.4-5.0); ALBUMIN/GLOBULIN RATIO 0.6 (1.0-2.7); ALKALINE PHOSPHATASE 229 U/L (46-116); ANION GAP 13 mmol/L (5-15); ASPARTATE AMINO TRANSFERASE 130 U/L (15-37); BILIRUBIN,TOTAL 0.8 MG/DL (0.2-1.0); BLOOD UREA NITROGEN 48 mg/dL (7-18); CALCIUM 8.7 MG/DL (8.5-10.1); CARBON DIOXIDE 23 MMOL/L (21-32); CHLORIDE 99 MMOL/L (98-107); CREATININE 3.1 MG/DL (0.55-1.30); POTASSIUM 5.7 MMOL/L (3.5-5.1); SODIUM 135 MMOL/L (136-145)
--- NOTE | 2020-05-05 07:10 | NUR ---
NURSE NOTES: Received report from Ivanna/RN. Patient in bed resting comfortable in semi-benitez position. On 2L nasal cannula, no distress or SOB noted at this time. Pt is able to make needs known. IV on left AC 20G running 1/2 NS @ 75ml/hr and right AC 18G, SL, patent and clean. Bed in lowest position and locked. Call light within reach encourage to use it when need it. Side rails up X3. Will continue plan of care.
--- NOTE | 2020-05-05 07:19 | NUR ---
NURSE HAND-OFF REPORT: Important Events on Shift: Patient is still on Afib but without chest pain reported. Patient Status: Patient is awake on bed, in stable condition. Still on oxygen via nasal cannula @ 2lpm, sating 95-97%. Patient's urine output in my shift was 60 ml. Bladder scan was done and showed [address] Linn is aware, no orders made. Diet: Cardiac diet Pending Orders: None Pending Results/Labs: Cmp, Mg, Pro BNP, Trop I results that was drawn this morning Pending MD notification: none Latest Vital Signs: Temperature 97.9 , Pulse 115 , B/P 101 /52 , Respiratory Rate 17 , O2 SAT 99 , Nasal Cannula, O2 Flow Rate 2.0 . Vital Sign Comment: stable EKG Rhythm: Atrial Fibrillation Rhythm change?: N MD Notified?: N - MD Response: Latest Lechuga Fall Score: 60 Fall Risk: High Risk Safety Measures: Call light Within Reach, Bed Alarm Zone 1, Side Rails Side Rails x2, Bed position Low and Locked. Fall Precautions: Yellow Socks Yellow Gown Door Sign Patient Fall Education Report given to DAMIAN Catalan.
--- NOTE | 2020-05-05 08:20 | Pulmonology Progress Note ---
Subjective ROS Limited/Unobtainable: No Allergies: Coded Allergies: CIPROFLOXACIN (Verified Allergy, Unknown, 09/27/17) Subjective on isolation care noted and reviewed ID noted Objective Last 24 Hour Vital Signs Date Time Temp Pulse Resp B/P (MAP) Pulse Ox O2 Delivery O2 Flow Rate FiO2 05/05/20 04:00 97.9 115 17 101/52 (68) 99 05/05/20 04:00 129 05/05/20 00:00 103 05/05/20 00:00 96.8 77 17 98/69 (79) 100 05/04/20 21:00 Nasal Cannula 2.0 05/04/20 20:00 97.5 79 19 93/65 (74) 100 05/04/20 20:00 102 05/04/20 17:29 89 98/60 05/04/20 16:00 101 05/04/20 16:00 97.9 89 20 98/60 (73) 96 05/04/20 12:00 107 05/04/20 12:00 97.9 94 20 96/60 (72) 100 05/04/20 09:00 Nasal Cannula 2.0 05/04/20 08:54 96 99/71 Intake and Output 05/04/20 05/05/20 19:00 07:00 Intake Total 575 ml 600 ml Balance 575 ml 600 ml Intake Oral 500 ml IV Total 75 ml 600 ml # Voids 1 # Bowel Movements 1 1 Objective deferred due to COVID Microbiology Date/Time Source Procedure Growth Status 05/03/20 09:55 Nasopharynx SARS-CoV-2 RdRp Gene Assay - Final Complete Laboratory Tests 05/05/20 05:00: Sodium Level 135L, Potassium Level 5.7#H, Chloride Level 99, Carbon Dioxide Level 23, Anion Gap 13, Blood Urea Nitrogen 48H, Creatinine 3.1H, Estimat Glomerular Filtration Rate 17.6, Glucose Level 147H, Calcium Level 8.7, Magnesium Level 2.0, Total Bilirubin 0.8, Aspartate Amino Transf (AST/SGOT) 130H , Alanine Aminotransferase (ALT/SGPT) 120H, Alkaline Phosphatase 229H, Troponin I 0.124H, Pro-B-Type Natriuretic Peptide 7420H, Total Protein 7.3, Albumin 2.6L , Globulin 4.7, Albumin/Globulin Ratio 0.6L Current Medications Medications (Trade) Dose Ordered Sig/Ghislaine Route PRN Reason Start Time Stop Time Status Last Admin Dose Admin Acetaminophen (Tylenol) 500 mg Q4H PRN ORAL Mild Pain (Pain Scale 1-3) 05/03/20 10:45 06/02/20 10:44 Albuterol Sulfate (Proventil MDI) 2 puff Q4H PRN INH Shortness of Breath 05/03/20 09:00 08/01/20 08:59 05/05/20 04:45 Apixaban (Eliquis) 2.5 mg BID ORAL 05/03/20 18:00 08/01/20 17:59 05/04/20 17:26 Aspirin (Ecotrin) 81 mg DAILY ORAL 05/03/20 16:00 06/17/20 15:59 05/04/20 08:53 Ceftriaxone Sodium 1 gm/ Dextrose 55 ml @ 110 mls/hr Q24H IVPB 05/03/20 17:00 05/10/20 16:59 05/04/20 16:29 Diltiazem HCl (Cardizem CD) 120 mg BID ORAL 05/04/20 18:00 06/03/20 17:59 Methylprednisolone Sodium Succinate (Solu-MEDROL) 60 mg Q12H IVP 05/05/20 04:00 08/03/20 03:59 05/05/20 03:47 Pantoprazole (Protonix) 40 mg DAILY ORAL 05/03/20 16:00 06/02/20 15:59 05/04/20 08:53 Salmeterol Xinafoate/ Fluticasone (Advair 100/50 Diskus) 1 puffs TWICE A DAY INH 05/03/20 18:00 08/01/20 17:59 05/04/20 18:04 Sodium Chloride 1,000 ml @ 75 mls/hr [id number] IV 05/04/20 16:45 06/03/20 16:44 05/05/20 06:05 Assessment/Plan Assessment/Plan Impression: COVID-19 Chronic obstructive pulmonary disease/Asthma Community acquired pneumonia Atrial fibrillation with RVR Elevated troponin Congestive heart Failure Plan Continue IV Antibiotics per iD IV Steroids per ID Bronchodilator therapy O2 PRN Eliquis Monitor labs Covid 19 Isolation reviewed care and optimize impression, plan, and exam edited and reviewed in detail care discussed with Aaron Bales MD May 05, 2020 08:20
--- NOTE | 2020-05-05 08:29 | General Progress Note ---
Assessment/Plan Problem List: (1) Pulmonary fibrosis ICD Codes: J84.10 - Pulmonary fibrosis, unspecified SNOMED: 64011496 (2) History of asthma ICD Codes: Z87.09 - Personal history of other diseases of the respiratory system SNOMED: 887708517 (3) Asthma ICD Codes: J45.909 - Unspecified asthma, uncomplicated SNOMED: 574056911 (4) NSTEMI (non-ST elevated myocardial infarction) ICD Codes: I21.4 - Non-ST elevation (NSTEMI) myocardial infarction SNOMED: 982356258 (5) Elevated troponin ICD Codes: R79.89 - Other specified abnormal findings of blood chemistry SNOMED: 515906206, 682949009, 808385541 (6) COPD (chronic obstructive pulmonary disease) ICD Codes: J44.9 - Chronic obstructive pulmonary disease, unspecified SNOMED: 77247650 (7) Atrial fibrillation with RVR ICD Codes: I48.91 - Unspecified atrial fibrillation SNOMED: 679922556294775 (8) Community acquired pneumonia ICD Codes: J18.9 - Pneumonia, unspecified organism SNOMED: 153638852 Status: stable Assessment/Plan: cont current rx wean iv steroids ivermectin per ID monitor cxr resp rx/mdi ivf monitor renal fxn kayexylate x 1 check abd us- increased cr and elevated LFTs renal eval Subjective ROS Limited/Unobtainable: No Constitutional: Reports: malaise, weakness HEENT: Reports: no symptoms Cardiovascular: Reports: no symptoms Respiratory: Reports: cough, shortness of breath Gastrointestinal/Abdominal: Reports: no symptoms Genitourinary: Reports: no symptoms Neurologic/Psychiatric: Reports: no symptoms Endocrine: Reports: no symptoms Hematologic/Lymphatic: Reports: no symptoms Allergies: Coded Allergies: CIPROFLOXACIN (Verified Allergy, Unknown, 09/27/17) All Systems: reviewed and negative except above Subjective no new complaints. stable on o2. ID noted. ivermectin ordered. decreased wheezing, remains on 2L Objective Last 24 Hour Vital Signs Date Time Temp Pulse Resp B/P (MAP) Pulse Ox O2 Delivery O2 Flow Rate FiO2 05/05/20 04:00 97.9 115 17 101/52 (68) 99 05/05/20 04:00 129 05/05/20 00:00 103 05/05/20 00:00 96.8 77 17 98/69 (79) 100 05/04/20 21:00 Nasal Cannula 2.0 05/04/20 20:00 97.5 79 19 93/65 (74) 100 05/04/20 20:00 102 05/04/20 17:29 89 98/60 05/04/20 16:00 101 05/04/20 16:00 97.9 89 20 98/60 (73) 96 05/04/20 12:00 107 05/04/20 12:00 97.9 94 20 96/60 (72) 100 05/04/20 09:00 Nasal Cannula 2.0 05/04/20 08:54 96 99/71 Intake and Output 05/04/20 05/05/20 19:00 07:00 Intake Total 575 ml 600 ml Balance 575 ml 600 ml Intake Oral 500 ml IV Total 75 ml 600 ml # Voids 1 # Bowel Movements 1 1 Laboratory Tests 05/05/20 05:00: Sodium Level 135L, Potassium Level 5.7#H, Chloride Level 99, Carbon Dioxide Level 23, Anion Gap 13, Blood Urea Nitrogen 48H, Creatinine 3.1H, Estimat Glomerular Filtration Rate 17.6, Glucose Level 147H, Calcium Level 8.7, Magnesium Level 2.0, Total Bilirubin 0.8, Aspartate Amino Transf (AST/SGOT) 130H , Alanine Aminotransferase (ALT/SGPT) 120H, Alkaline Phosphatase 229H, Troponin I 0.124H, Pro-B-Type Natriuretic Peptide 7420H, Total Protein 7.3, Albumin 2.6L , Globulin 4.7, Albumin/Globulin Ratio 0.6L Height (Feet): 5 Height (Inches): 3.00 Weight (Pounds): 160 General Appearance: WD/WN, no apparent distress, alert EENT: PERRL/EOMI Neck: non-tender, normal alignment, supple Cardiovascular: normal rate, regular rhythm Respiratory/Chest: chest wall non-tender, lungs clear, normal breath sounds, no respiratory distress, no accessory muscle use Abdomen: normal bowel sounds, non tender, soft, no organomegaly Edema: no edema noted Arm (L), no edema noted Arm (R) 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 MD May 05, 2020 08:29
[2020-05-05 08:30] VITALS: BP 103/67
[2020-05-05] MEDS ORDERED: Sodium Polystyrene Sulfonate 15gm Powder ORAL SCH (08:30)
[2020-05-05] MEDS: Eliquis 2.5mg tablet ORAL SCH ×2 (08:42→18:15)
[2020-05-05] MEDS: Aspirin EC 81mg tab ORAL SCH (08:42)
[2020-05-05] MEDS: DILTIAZEM HCL 120 MG ORAL SCH ×2 (08:43→18:15)
[2020-05-05] MEDS: Wixela 100/50 Inhaler - 60 dose INH SCH ×2 (08:43→18:15)
--- NOTE | 2020-05-05 11:05 | Infectious Diseases Prog Note ---
Assessment/Plan Assessment/Plan antibiotics : ceftriaxone A 1. COVID 19 pneumonia on 2 liters O2, saturation 100 percent s/p ivermectin 9..20 2. renal failure 3. increased LFT 4. COPD 5. CHF 6. asthma P 1. continue solumedrol 2. d/c ceftriaxone 3. will follow up cultures Subjective Constitutional: Denies: fever, chills Respiratory: Reports: shortness of breath, dry cough - decreased Gastrointestinal/Abdominal: Denies: nausea, vomiting, diarrhea Musculoskeletal: Denies: pain Allergies: Coded Allergies: CIPROFLOXACIN (Verified Allergy, Unknown, 09/27/17) Objective Last 24 Hour Vital Signs Date Time Temp Pulse Resp B/P (MAP) Pulse Ox O2 Delivery O2 Flow Rate FiO2 05/05/20 09:00 Nasal Cannula 2.0 05/05/20 08:43 135 103/67 05/05/20 08:30 97.5 135 20 103/67 (79) 97 05/05/20 08:00 145 05/05/20 04:00 97.9 115 17 101/52 (68) 99 05/05/20 04:00 129 05/05/20 00:00 103 05/05/20 00:00 96.8 77 17 98/69 (79) 100 05/04/20 21:00 Nasal Cannula 2.0 05/04/20 20:00 97.5 79 19 93/65 (74) 100 05/04/20 20:00 102 05/04/20 17:29 89 98/60 05/04/20 16:00 101 05/04/20 16:00 97.9 89 20 98/60 (73) 96 05/04/20 12:00 107 05/04/20 12:00 97.9 94 20 96/60 (72) 100 Height (Feet): 5 Height (Inches): 3.00 Weight (Pounds): 160 Microbiology Date/Time Source Procedure Growth Status 05/03/20 09:55 Nasopharynx SARS-CoV-2 RdRp Gene Assay - Final Complete Laboratory Tests Test 05/05/20 05:00 Sodium Level 135 MMOL/L (136-145) L Potassium Level 5.7 MMOL/L (3.5-5.1) #H Chloride Level 99 MMOL/L (98-107) Carbon Dioxide Level 23 MMOL/L (21-32) Anion Gap 13 mmol/L (5-15) Blood Urea Nitrogen 48 mg/dL (7-18) H Creatinine 3.1 MG/DL (0.55-1.30) H Estimat Glomerular Filtration Rate 17.6 mL/min (>60) Glucose Level 147 MG/DL (74-106) H Calcium Level 8.7 MG/DL (8.5-10.1) Magnesium Level 2.0 MG/DL (1.8-2.4) Total Bilirubin 0.8 MG/DL (0.2-1.0) Aspartate Amino Transf (AST/SGOT) 130 U/L (15-37) H Alanine Aminotransferase (ALT/SGPT) 120 U/L (12-78) H Alkaline Phosphatase 229 U/L (46-116) H Troponin I 0.124 ng/mL (0.000-0.056) Pro-B-Type Natriuretic Peptide 7420 pg/mL (0-125) H Total Protein 7.3 G/DL (6.4-8.2) Albumin 2.6 G/DL (3.4-5.0) L Globulin 4.7 g/dL Albumin/Globulin Ratio 0.6 (1.0-2.7) L Current Medications Medications (Trade) Dose Ordered Sig/Ghislaine Route PRN Reason Start Time Stop Time Status Last Admin Dose Admin Acetaminophen (Tylenol) 500 mg Q4H PRN ORAL Mild Pain (Pain Scale 1-3) 05/03/20 10:45 06/02/20 10:44 Albuterol Sulfate (Proventil MDI) 2 puff Q4H PRN INH Shortness of Breath 05/03/20 09:00 08/01/20 08:59 05/05/20 04:45 Apixaban (Eliquis) 2.5 mg BID ORAL 05/03/20 18:00 08/01/20 17:59 05/05/20 08:42 Aspirin (Ecotrin) 81 mg DAILY ORAL 05/03/20 16:00 06/17/20 15:59 05/05/20 08:42 Ceftriaxone Sodium 1 gm/ Dextrose 55 ml @ 110 mls/hr Q24H IVPB 05/03/20 17:00 05/10/20 16:59 05/04/20 16:29 Diltiazem HCl (Cardizem CD) 120 mg BID ORAL 05/04/20 18:00 06/03/20 17:59 05/05/20 08:43 Methylprednisolone Sodium Succinate (Solu-MEDROL) 60 mg Q12H IVP 05/05/20 04:00 08/03/20 03:59 05/05/20 03:47 Pantoprazole (Protonix) 40 mg DAILY ORAL 05/03/20 16:00 06/02/20 15:59 05/05/20 08:41 Salmeterol Xinafoate/ Fluticasone (Advair 100/50 Diskus) 1 puffs TWICE A DAY INH 05/03/20 18:00 08/01/20 17:59 05/05/20 08:43 Sodium Chloride 1,000 ml @ 75 mls/hr [id number] IV 05/04/20 16:45 06/03/20 16:44 05/05/20 06:05 Camilo Cameron MD May 05, 2020 11:05
[2020-05-05 12:00] VITALS: BP 112/76
[2020-05-05] MEDS ORDERED: dilTIAZem HCl 25mg/5ml Inj IVP SCH (14:45)
--- NOTE | 2020-05-05 14:45 | NUR ---
NURSE NOTES: patient noted sustaining afib RVR in the monitor HR 120-150's, BP 112/76, spoke with dr downey, and was notified, new order received.
--- NOTE | 2020-05-05 15:45 | Diagnostic Imaging Report ---
Indication: Abnormal liver function tests and renal function tests Technique: Grace-scale and duplex images of the upper abdomen were obtained. Exam was limited, due to patient being Covid positive Comparison: none Findings: Gallbladder demonstrates wall thickening and wall edema, gallbladder wall measuring up to 6 mm thick. There are gallstones. Sonographic Escoto's sign is negative. Common bile duct measures 3 mm in diameter. No intrahepatic biliary ductal dilatation. Liver demonstrates normal echogenicity, no focal abnormality. Portal vein and hepatic veins are patent. Pancreas is unremarkable. Spleen is unremarkable. Left kidney measures 9.2 cm in length. Right kidney measures 9.9 cm length. Both kidneys demonstrate normal echogenicity. There is no hydronephrosis. Small cyst is seen in the right kidney. . Abdominal aorta was not imaged . There is trace ascites. There is a small right pleural effusion incidentally noted Impression: Small right pleural effusion. Trace ascites Cholelithiasis. Gallbladder wall thickening may be related to hemodynamic factors causing the pleural fluid and ascites, but could also indicate acute cholecystitis. Consider nuclear medicine hepatobiliary scan if there is high clinical suspicion. Negative for dilated bile ducts Small right renal cyst incidentally noted
[2020-05-05 16:00] VITALS: BP 105/55
--- NOTE | 2020-05-05 16:00 | NUR ---
CASE MANAGEMENT:REVIEW 80 YR OLD FEMALE PRESENTED TO ER CC: SOB. ASTHMA. BLE EDEMA SI: COPD. AFIB W/RVR. PNA. 98.0 138 25 84/62 90% ON RA BUN+38 CR+2.0 TROPONIN(+)0.154 IS: DUONEB HHN Q15MIN IV SOLUMEDROL CXR : TO TELEMETRY
--- NOTE | 2020-05-05 19:00 | NUR ---
NURSE HAND-OFF REPORT: Important Events on Shift:Elevated heart rate Patient Status: Stable Diet: Cardiac Pending Orders: Pending Results/Labs:CMP Pending MD notification: Latest Vital Signs: Temperature 97.5 , Pulse 76 , B/P 105 /55 , Respiratory Rate 20 , O2 SAT 97 , Nasal Cannula, O2 Flow Rate 2.0 . Vital Sign Comment: Stable EKG Rhythm: Atrial Fibrillation Rhythm change?: N MD Notified?: N - MD Response: Latest Lechuga Fall Score: 60 Fall Risk: High Risk Safety Measures: Call light Within Reach, Bed Alarm Zone 1, Side Rails Side Rails x2, Bed position Low and Locked. Fall Precautions: Yellow Socks Yellow Gown Door Sign Patient Fall Education Report given to Ivanna/RN.
--- NOTE | 2020-05-05 19:15 | NUR ---
NURSE NOTES: Received report from DAMIAN Catalan. Patient is awake, alert and oriented x 3, forgetful. Patient is on cardiac diet, instructed and amenable. With oxygen via nasal cannula @ 2Lpm sating 96% at this time. 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 On fall precaution. IV site is on left AC g-20 running fluid of 1/2 NS @ 75 cc/hour and IV site on right AC g-18 saline lock that is patent and intact. Safety measures are in place, bed in lowest and locked position, side rails up x 2. Call light button and bedside table within reach, instructed to call for any assistance needed. Will continue plan of care,
[2020-05-05 20:00] VITALS: BP 114/56
[2020-05-06] VITALS: BP 110/76
--- NOTE | 2020-05-06 00:54 | Cardiology Progress Note ---
Subjective DATE OF SERVICE: May 05, 2020 Still SOB with increased congestion On titrating oxygen delivery Monitor: AFIb with frequent episodes of RVR - IV diltiazem dose added Poor oral intake D/W RN - urine output poor; labs reveal worsening renal function. Elevated K+ today req'd kayexalate. Objective Last 24 Hour Vital Signs Date Time Temp Pulse Resp B/P (MAP) Pulse Ox O2 Delivery O2 Flow Rate FiO2 05/06/20 00:00 97.0 76 20 110/76 (87) 97 05/05/20 21:00 Nasal Cannula 2.0 05/05/20 20:00 97.5 73 22 114/56 (75) 97 05/05/20 20:00 132 05/05/20 18:15 76 105/55 05/05/20 16:00 123 05/05/20 16:00 97.5 76 20 105/55 (72) 97 05/05/20 15:11 131 108/67 05/05/20 12:00 121 05/05/20 12:00 97.5 71 20 112/76 (88) 97 05/05/20 09:00 Nasal Cannula 2.0 05/05/20 08:43 135 103/67 05/05/20 08:30 97.5 135 20 103/67 (79) 97 05/05/20 08:00 145 05/05/20 04:00 97.9 115 17 101/52 (68) 99 05/05/20 04:00 129 ROS: unchanged from my eval of 05/03/20 LUNGS: no accessory muscle use, expiratory wheezing, diminished breath sounds CARDIAC: normal S1 and S2, no murmur, irregularly irregular ABDOMEN: normal bowel sounds, non tender, soft, no organomegaly EXTREMITIES: no calf tenderness, trace edema Laboratory Tests Test 05/05/20 05:00 Sodium Level 135 MMOL/L (136-145) L Potassium Level 5.7 MMOL/L (3.5-5.1) #H Chloride Level 99 MMOL/L (98-107) Carbon Dioxide Level 23 MMOL/L (21-32) Anion Gap 13 mmol/L (5-15) Blood Urea Nitrogen 48 mg/dL (7-18) H Creatinine 3.1 MG/DL (0.55-1.30) H Estimat Glomerular Filtration Rate 17.6 mL/min (>60) Glucose Level 147 MG/DL (74-106) H Calcium Level 8.7 MG/DL (8.5-10.1) Magnesium Level 2.0 MG/DL (1.8-2.4) Total Bilirubin 0.8 MG/DL (0.2-1.0) Aspartate Amino Transf (AST/SGOT) 130 U/L (15-37) H Alanine Aminotransferase (ALT/SGPT) 120 U/L (12-78) H Alkaline Phosphatase 229 U/L (46-116) H Troponin I 0.124 ng/mL (0.000-0.056) Pro-B-Type Natriuretic Peptide 7420 pg/mL (0-125) H Total Protein 7.3 G/DL (6.4-8.2) Albumin 2.6 G/DL (3.4-5.0) L Globulin 4.7 g/dL Albumin/Globulin Ratio 0.6 (1.0-2.7) L Microbiology Date/Time Source Procedure Growth Status 05/03/20 09:55 Nasopharynx SARS-CoV-2 RdRp Gene Assay - Final Complete Assessment/Plan Assessment/Plan COPD exacerb with active bronchospasm COVID 19 PNA Acute on chr renal failure - now with hyperkalemia Chronic systolic/diastolic CHF Pulmonary fibrosis with chronic hypoxia Paroxysmal AFib with RVR Hx Multifocal atrial arrhythmias Pulmonary HTN - severe Hx NSVTach Acute myocardial ischemia Steroids Inhaled bronchodilators IVF continued Kayexalate as needed for elevated K+ No diuresis at present Full anticoagulation for cardioembolic prophyl Isolation Anti-viral rx per Simone Shirley MD May 06, 2020 00:53
--- NOTE | 2020-05-06 01:38 | Cardiology Report ---
APPROVED REPORT EKG Measurement Heart [id number] <Conclusion> Atrial fibrillation with rapid ventricular response Rightward axis Nonspecific T wave abnormality Abnormal ECG
--- NOTE | 2020-05-06 03:44 | Consultation ---
DATE OF CONSULTATION: 05/03/2020 CARDIOLOGY CONSULTATION CONSULTING PHYSICIAN: Simone Perez MD. REFERRING PHYSICIAN: Bradford Linn MD. REASON FOR CONSULTATION: Rapid atrial fibrillation. HISTORY OF PRESENT ILLNESS: This is an 80-year-old female. She has significant COPD, pulmonary fibrosis, and hypertension presented to the hospital with increasing shortness of breath and chest tightness of several days duration. She has been wheezing, but she has not had any fevers or chills. She is on oxygen chronically, but has required additional therapy. She was noted to have rapid atrial fibrillation prompting this consultation. Of note, she did receive inhaled bronchodilator therapy at home and in the emergency room. PAST MEDICAL HISTORY: 1. COPD. 2. Hypertension. 3. Pulmonary fibrosis. 4. Pulmonary hypertension. 5. Paroxysmal atrial fibrillation. 6. Diastolic congestive heart failure. 7. History of myocardial infarction. MEDICATIONS: Reviewed and reconciled. ALLERGIES: Floxin. FAMILY HISTORY: Noncontributory. SOCIAL HISTORY: Reportedly prior smoker. No alcohol or substance abuse. REVIEW OF SYSTEMS: No history of COVID-19 exposure. No seizures. She has had some leg swelling. No melena or bright red blood per rectum. Decreased urine output noted. No history of thyroid impairment. Has a history of steroid-associated hyperglycemia. PHYSICAL EXAMINATION: VITAL SIGNS: Afebrile, blood pressure 197/49, heart rate 72 to 118, respiratory rate 18 to 22. GENERAL: Thin and frail. LUNGS: Some accessory muscle use. Diminished breath sounds. Few rhonchi and expiratory wheezes. CARDIAC: Irregularly irregular rhythm. Normal S1, S2. ABDOMEN: Soft. EXTREMITIES: Trace edema. LABORATORY AND DIAGNOSTIC DATA: Reviewed. EKG, rapid atrial fibrillation at [address] change. Chest x-ray with bilateral patchy infiltrates. COVID-19 swab is positive. IMPRESSION: 1. Atrial fibrillation with rapid ventricular response. 2. COPD with acute exacerbation. 3. Paroxysmal bronchospasm. 4. Acute myocardial ischemia and possible [id number] myocardial infarction. 5. Acute on chronic diastolic congestive heart failure. 6. COVID-19 pneumonia. 7. Acute on chronic renal failure. PLAN: 1. Inhaled bronchodilators. 2. Intravenous steroids. 3. Consideration for remdesivir. 4. Rate control with diltiazem. 5. Continue full anticoagulation. 6. Condition remains critical with guarded prognosis. Simone Peerz M.D. DR: REBECCA JOB#: [id number] CC:
[2020-05-06 04:00] VITALS: BP 119/75
[2020-05-06] MEDS: Solu-MEDROL 125mg Inj IVP SCH ×2 (05:04→17:01)
--- NOTE | 2020-05-06 07:00 | NUR ---
NURSE NOTES: pt AO x4 forgetful. pt on engine monitor no signs of cardiac or respiratory distress . bed in lowest position and locked. call light within reach . will continue to monitor.
[2020-05-06 07:47] LABS: ALANINE AMINOTRANSFERASE 165 U/L (12-78); ALBUMIN 2.8 G/DL (3.4-5.0); ALBUMIN/GLOBULIN RATIO 0.6 (1.0-2.7); ALKALINE PHOSPHATASE 239 U/L (46-116); ANION GAP 9 mmol/L (5-15); ASPARTATE AMINO TRANSFERASE 148 U/L (15-37); BILIRUBIN,TOTAL 0.8 MG/DL (0.2-1.0); BLOOD UREA NITROGEN 57 mg/dL (7-18); CALCIUM 8.6 MG/DL (8.5-10.1); CARBON DIOXIDE 27 MMOL/L (21-32); CHLORIDE 98 MMOL/L (98-107); CREATININE 3.2 MG/DL (0.55-1.30); POTASSIUM 4.4 MMOL/L (3.5-5.1); SODIUM 134 MMOL/L (136-145)
--- NOTE | 2020-05-06 07:49 | NUR ---
NURSE HAND-OFF REPORT: Important Events on Shift: PATIENT RESTED WELL THE WHOLE SHIFT. URINE OUTPUT IS VERY LITTLE. IVF INCRESED TO 125 CC/HOUR Patient Status: Patient is asleep on bed, without complaints made at this time. Diet: Cardiac diet Pending Orders: none Pending Results/Labs:CBC, Lactic acid, Trop I results Pending MD notification:none Latest Vital Signs: Temperature 97.9 , Pulse 91 , B/P 119 /75 , Respiratory Rate 20 , O2 SAT 97 , Nasal Cannula, O2 Flow Rate 2.0 . Vital Sign Comment: EKG Rhythm: Atrial Fibrillation Rhythm change?: N MD Notified?: N - MD Response: Latest Lechuga Fall Score: 60 Fall Risk: High Risk Safety Measures: Call light Within Reach, Bed Alarm Zone 1, Side Rails Side Rails x2, Bed position Low and Locked. Fall Precautions: Yellow Socks Yellow Gown Door Sign Patient Fall Education Report given to DAMIAN Martines.
[2020-05-06 07:51] LABS: EOSINOPHILS % (AUTO) 0.2 % (0.0-3.0); HEMATOCRIT 43.8 % (37.0-47.0); HEMOGLOBIN 13.6 G/DL (12.0-16.0); LYMPHOCYTES % (AUTO) 7.2 % (20.0-45.0); MEAN CORPUSCULAR VOLUME 88 FL (80-99); MONOCYTES % (AUTO) 8.2 % (1.0-10.0); NEUTROPHILS % (AUTO) 81.4 % (45.0-75.0); PLATELET COUNT 288 K/UL (150-450); RED BLOOD COUNT 4.97 M/UL (4.20-5.40); WHITE BLOOD COUNT 7.2 K/UL (4.8-10.8)
[2020-05-06 08:25] VITALS: BP 115/65
[2020-05-06] MEDS: Wixela 100/50 Inhaler - 60 dose INH SCH ×2 (09:00→17:26)
--- NOTE | 2020-05-06 09:02 | General Progress Note ---
Assessment/Plan Problem List: (1) Pulmonary fibrosis ICD Codes: J84.10 - Pulmonary fibrosis, unspecified SNOMED: 46113114 (2) History of asthma ICD Codes: Z87.09 - Personal history of other diseases of the respiratory system SNOMED: 533099227 (3) Asthma ICD Codes: J45.909 - Unspecified asthma, uncomplicated SNOMED: 564812523 (4) NSTEMI (non-ST elevated myocardial infarction) ICD Codes: I21.4 - Non-ST elevation (NSTEMI) myocardial infarction SNOMED: 516256981 (5) Elevated troponin ICD Codes: R79.89 - Other specified abnormal findings of blood chemistry SNOMED: 013201054, 601202164, 999008002 (6) COPD (chronic obstructive pulmonary disease) ICD Codes: J44.9 - Chronic obstructive pulmonary disease, unspecified SNOMED: 55854692 (7) Atrial fibrillation with RVR ICD Codes: I48.91 - Unspecified atrial fibrillation SNOMED: 365018533413602 (8) Community acquired pneumonia ICD Codes: J18.9 - Pneumonia, unspecified organism SNOMED: 080191118 Status: stable Assessment/Plan: cont current rx wean iv steroids ivf monitor cxr resp rx/mdi monitor renal fxn ?hida scan Subjective ROS Limited/Unobtainable: No Constitutional: Reports: malaise, weakness HEENT: Reports: no symptoms Cardiovascular: Reports: no symptoms Respiratory: Reports: cough, shortness of breath Gastrointestinal/Abdominal: Reports: no symptoms Genitourinary: Reports: no symptoms Neurologic/Psychiatric: Reports: no symptoms Endocrine: Reports: no symptoms Hematologic/Lymphatic: Reports: no symptoms Allergies: Coded Allergies: CIPROFLOXACIN (Verified Allergy, Unknown, 09/27/17) All Systems: reviewed and negative except above Subjective Patient is without complaints. Denies any fevers or chills. Stable shortness of breath. O2 sats normal on 2 L nasal cannula. Renal function stable. No chest pain. Objective Last 24 Hour Vital Signs Date Time Temp Pulse Resp B/P (MAP) Pulse Ox O2 Delivery O2 Flow Rate FiO2 05/06/20 08:25 98.0 101 22 115/65 (82) 96 05/06/20 04:00 113 05/06/20 04:00 97.9 91 20 119/75 (90) 97 05/06/20 00:00 97.0 76 20 110/76 (87) 97 05/06/20 00:00 103 05/05/20 21:00 Nasal Cannula 2.0 05/05/20 20:00 97.5 73 22 114/56 (75) 97 05/05/20 20:00 132 05/05/20 18:15 76 105/55 05/05/20 16:00 123 05/05/20 16:00 97.5 76 20 105/55 (72) 97 05/05/20 15:11 131 108/67 05/05/20 12:00 121 05/05/20 12:00 97.5 71 20 112/76 (88) 97 05/05/20 09:00 Nasal Cannula 2.0 Intake and Output 05/05/20 05/06/20 19:00 07:00 Intake Total 320 ml Balance 320 ml Intake Oral 320 ml # Voids 2 # Bowel Movements 3 Laboratory Tests 05/06/20 06:54: White Blood Count 7.2, Red Blood Count 4.97, Hemoglobin 13.6, Hematocrit 43.8, Mean Corpuscular Volume 88, Mean Corpuscular Hemoglobin 27.3, Mean Corpuscular Hemoglobin Concent 31.0L, Red Cell Distribution Width 18.0H, Platelet Count 288 , Mean Platelet Volume 5.6L, Neutrophils (%) (Auto) 81.4H, Lymphocytes (%) (Auto ) 7.2L, Monocytes (%) (Auto) 8.2, Eosinophils (%) (Auto) 0.2, Basophils (%) ( Auto) 3.0H, Sodium Level 134L, Potassium Level 4.4, Chloride Level 98, Carbon Dioxide Level 27, Anion Gap 9, Blood Urea Nitrogen 57H, Creatinine 3.2H, Estimat Glomerular Filtration Rate 16.8, Glucose Level 145H, Lactic Acid Level 2.10H, Calcium Level 8.6, Total Bilirubin 0.8, Aspartate Amino Transf (AST/SGOT ) 148H, Alanine Aminotransferase (ALT/SGPT) 165H, Alkaline Phosphatase 239H, Troponin I 0.102H, Pro-B-Type Natriuretic Peptide 8417H, Total Protein 7.5, Albumin 2.8L, Globulin 4.7, Albumin/Globulin Ratio 0.6L Height (Feet): 5 Height (Inches): 3.00 Weight (Pounds): 160 Objective General Appearance: WD/WN, no apparent distress, alert EENT: PERRL/EOMI Neck: non-tender, normal alignment, supple Cardiovascular: normal rate, regular rhythm Respiratory/Chest: chest wall non-tender, lungs clear, normal breath sounds, no respiratory distress, no accessory muscle use Abdomen: normal bowel sounds, non tender, soft, no organomegaly Edema: no edema noted Arm (L), no edema noted Arm (R) 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
[2020-05-06] MEDS: Albuterol 90mcg Inhaler 8gm INH PRN (09:55)
[2020-05-06] MEDS: Eliquis 2.5mg tablet ORAL SCH ×4 (09:55→17:26)
[2020-05-06] MEDS: Aspirin EC 81mg tab ORAL SCH ×3 (09:56→11:43)
[2020-05-06] MEDS: DILTIAZEM HCL 120 MG ORAL SCH ×4 (09:56→17:27)
--- NOTE | 2020-05-06 10:36 | Infectious Diseases Prog Note ---
Assessment/Plan Assessment/Plan antibiotics : none A 1. COVID 19 pneumonia on 2 liters O2, saturation 97 percent s/p ivermectin 9.7.20 2. renal failure 3. increased LFT 4. COPD 5. CHF 6. asthma 7. r/o cholecystitis P 1. continue solumedrol 2. will follow up cultures 3. HIDA scan Subjective Constitutional: Denies: fever, chills Respiratory: Reports: shortness of breath - decreased; Denies: dry cough Gastrointestinal/Abdominal: Denies: nausea, vomiting, diarrhea Musculoskeletal: Denies: pain Allergies: Coded Allergies: CIPROFLOXACIN (Verified Allergy, Unknown, 09/27/17) Objective Last 24 Hour Vital Signs Date Time Temp Pulse Resp B/P (MAP) Pulse Ox O2 Delivery O2 Flow Rate FiO2 05/06/20 09:56 101 115/65 05/06/20 08:25 98.0 101 22 115/65 (82) 96 05/06/20 08:00 96 05/06/20 04:00 113 05/06/20 04:00 97.9 91 20 119/75 (90) 97 05/06/20 00:00 97.0 76 20 110/76 (87) 97 05/06/20 00:00 103 05/05/20 21:00 Nasal Cannula 2.0 05/05/20 20:00 97.5 73 22 114/56 (75) 97 05/05/20 20:00 132 05/05/20 18:15 76 105/55 05/05/20 16:00 123 05/05/20 16:00 97.5 76 20 105/55 (72) 97 05/05/20 15:11 131 108/67 05/05/20 12:00 121 05/05/20 12:00 97.5 71 20 112/76 (88) 97 Height (Feet): 5 Height (Inches): 3.00 Weight (Pounds): 160 Laboratory Tests Test 05/06/20 06:54 White Blood Count 7.2 K/UL (4.8-10.8) Red Blood Count 4.97 M/UL (4.20-5.40) Hemoglobin 13.6 G/DL (12.0-16.0) Hematocrit 43.8 % (37.0-47.0) Mean Corpuscular Volume 88 FL (80-99) Mean Corpuscular Hemoglobin 27.3 PG (27.0-31.0) Mean Corpuscular Hemoglobin Concent 31.0 G/DL (32.0-36.0) L Red Cell Distribution Width 18.0 % (11.6-14.8) H Platelet Count 288 K/UL (150-450) Mean Platelet Volume 5.6 FL (6.5-10.1) L Neutrophils (%) (Auto) 81.4 % (45.0-75.0) H Lymphocytes (%) (Auto) 7.2 % (20.0-45.0) L Monocytes (%) (Auto) 8.2 % (1.0-10.0) Eosinophils (%) (Auto) 0.2 % (0.0-3.0) Basophils (%) (Auto) 3.0 % (0.0-2.0) H Sodium Level 134 MMOL/L (136-145) L Potassium Level 4.4 MMOL/L (3.5-5.1) Chloride Level 98 MMOL/L (98-107) Carbon Dioxide Level 27 MMOL/L (21-32) Anion Gap 9 mmol/L (5-15) Blood Urea Nitrogen 57 mg/dL (7-18) H Creatinine 3.2 MG/DL (0.55-1.30) H Estimat Glomerular Filtration Rate 16.8 mL/min (>60) Glucose Level 145 MG/DL (74-106) H Lactic Acid Level 2.10 mmol/L (0.4-2.0) H Calcium Level 8.6 MG/DL (8.5-10.1) Total Bilirubin 0.8 MG/DL (0.2-1.0) Aspartate Amino Transf (AST/SGOT) 148 U/L (15-37) H Alanine Aminotransferase (ALT/SGPT) 165 U/L (12-78) H Alkaline Phosphatase 239 U/L (46-116) H Troponin I 0.102 ng/mL (0.000-0.056) Pro-B-Type Natriuretic Peptide 8417 pg/mL (0-125) H Total Protein 7.5 G/DL (6.4-8.2) Albumin 2.8 G/DL (3.4-5.0) L Globulin 4.7 g/dL Albumin/Globulin Ratio 0.6 (1.0-2.7) L Current Medications Medications (Trade) Dose Ordered Sig/Ghislaine Route PRN Reason Start Time Stop Time Status Last Admin Dose Admin Acetaminophen (Tylenol) 500 mg Q4H PRN ORAL Mild Pain (Pain Scale 1-3) 05/03/20 10:45 06/02/20 10:44 Albuterol Sulfate (Proventil MDI) 2 puff Q4H PRN INH Shortness of Breath 05/03/20 09:00 08/01/20 08:59 05/06/20 09:55 Apixaban (Eliquis) 2.5 mg BID ORAL 05/03/20 18:00 08/01/20 17:59 05/06/20 09:55 Aspirin (Ecotrin) 81 mg DAILY ORAL 05/03/20 16:00 06/17/20 15:59 05/06/20 09:56 Diltiazem HCl (Cardizem CD) 120 mg BID ORAL 05/04/20 18:00 06/03/20 17:59 05/06/20 09:56 Methylprednisolone Sodium Succinate (Solu-MEDROL) 60 mg Q12H IVP 05/05/20 04:00 08/03/20 03:59 05/06/20 05:04 Pantoprazole (Protonix) 40 mg DAILY ORAL 05/03/20 16:00 06/02/20 15:59 05/06/20 09:55 Salmeterol Xinafoate/ Fluticasone (Advair 100/50 Diskus) 1 puffs TWICE A DAY INH 05/03/20 18:00 08/01/20 17:59 05/06/20 09:00 Sodium Chloride 1,000 ml @ 125 mls/hr Q8H IV 05/06/20 00:00 06/05/20 00:00 05/06/20 06:00 Camilo Cameron MD May 06, 2020 10:36
[2020-05-06 12:00] VITALS: BP 110/58
--- NOTE | 2020-05-06 14:48 | Consultation ---
History of Present Illness General Date patient seen: May 06, 2020 Reason for Hospitalization: Dyspnea/Respdistress Present Illness HPI This is a very pleasant 80-year-old female merged with [facility] who presented to [facility] with wheezing shortness of breath and admitted for respiratory insufficiency further care and management. Patient was diagnosed with COVID not too long ago and recovered well. During this admission identified to have abnormal labs including elevated LFTs. Ultrasound ordered identifying gallbladder wall thickening and fluid consistent with potential cholecystitis. Surgery called to evaluate and assist with care. Patient seen, patient evaluate, chart reviewed. Patient states she is eating well without any symptoms. Denies any abdominal pain. No nausea vomiting fever chills. currently COVID + now Allergies: Coded Allergies: CIPROFLOXACIN (Verified Allergy, Unknown, 09/27/17) COVID-19 Screening Contact w/high risk pt: Yes Experienced COVID-19 symptoms?: Yes COVID-19 symptoms experienced: Shortness of Breath Medication History Scheduled Albuterol Sulfate (Ventolin Hfa), 2 PUFFS INH EVERY 6 HOURS, (Reported) Apixaban (Eliquis), 2.5 MG ORAL BID Aspirin Ec* (Aspirin Ec*), 81 MG ORAL DAILY Diltiazem HCl (Diltiazem 24HR Cd), 120 MG PO DAILY Fluticasone/Salmeterol (Advair 100-50 Diskus), 1 PUFF INH TWICE A DAY Furosemide* (Lasix*), 20 MG ORAL DAILY, (Reported) Ipratropium/Albuterol Sulfate (DuoNeb 0.5-3(2.5)mg/3ml), 3 ML HHN Q6HRT Patient History History Provided By: Patient, Medical Record, PMD Healthcare decision maker Resuscitation status Advanced Directive on File Past Medical/Surgical History Past Medical/Surgical History: (1) Abnormal LFTs (2) Moderate to severe pulmonary hypertension (3) Asthma exacerbation (4) Acute respiratory failure with hypoxia (5) Elevated troponin (6) Atrial fibrillation with RVR (7) COVID-19 (8) Community acquired pneumonia (9) COPD (chronic obstructive pulmonary disease) (10) Pulmonary fibrosis (11) Asthma (12) History of asthma (13) NSTEMI (non-ST elevated myocardial infarction) Family History Family History: Patient reports no known family medical history. Review of Systems Review of Symptoms General ROS: no weight loss or fever Psychological ROS: no depression or mood changes, no memory loss Ophthalmic ROS: no visual changes or eye irritation ENT ROS: no nasal congestion, hearing loss, dizziness Allergy and Immunology ROS: no allergic symptoms or urticaria Hematological and Lymphatic ROS: no swollen glands, unusual bleeding or bruising Endocrine ROS: no polyuria, polydipsia, weight changes, temperature intolerance Respiratory ROS: no cough, shortness of breath, or wheezing Cardiovascular ROS: no chest pain or dyspnea on exertion Gastrointestinal ROS: denies abdominal pain, bright red blood in stool. Musculoskeletal ROS: no myalgias or arthralgias Neurological ROS: no TIA or stroke symptoms Dermatological ROS: no new or changing skin lesions, rashes or pruritis Physical Exam Physical Exam General appearance: alert, cooperative, no distress, appears stated age Head: Normocephalic, without obvious abnormality, atraumatic Eyes: conjunctivae/corneas clear. PERRL, EOM's intact. Fundi benign Throat: Lips, mucosa, and tongue normal. Teeth and gums normal Neck: supple, symmetrical, trachea midline, no adenopathy, thyroid: not enlarged, symmetric, no tenderness/mass/nodules, no carotid bruit and no JVD Lungs: clear to auscultation bilaterally Heart: regular rate and rhythm, S1, S2 normal, no murmur, click, rub or gallop Abdomen: soft, non-tender. Bowel sounds normal. No masses, no organomegaly Extremities: extremities normal, atraumatic, no cyanosis or edema Pulses: 2+ and symmetric Skin: Skin color, texture, turgor normal. No rashes or lesions Neurologic: Grossly normal Last 24 Hour Vital Signs Date Time Temp Pulse Resp B/P (MAP) Pulse Ox O2 Delivery O2 Flow Rate FiO2 05/06/20 12:00 97.4 132 20 110/58 (75) 95 05/06/20 12:00 138 05/06/20 11:03 Nasal Cannula 2.0 05/06/20 08:25 98.0 101 22 115/65 (82) 96 05/06/20 08:00 96 05/06/20 08:00 138 05/06/20 04:00 113 05/06/20 04:00 97.9 91 20 119/75 (90) 97 05/06/20 00:00 97.0 76 20 110/76 (87) 97 05/06/20 00:00 103 05/05/20 21:00 Nasal Cannula 2.0 05/05/20 20:00 97.5 73 22 114/56 (75) 97 05/05/20 20:00 132 05/05/20 18:15 76 105/55 05/05/20 16:00 123 05/05/20 16:00 97.5 76 20 105/55 (72) 97 05/05/20 15:11 131 108/67 Intake and Output 05/05/20 05/06/20 19:00 07:00 Intake Total 320 ml Balance 320 ml Intake Oral 320 ml # Voids 2 # Bowel Movements 3 Laboratory Tests Test 05/06/20 06:54 White Blood Count 7.2 K/UL (4.8-10.8) Red Blood Count 4.97 M/UL (4.20-5.40) Hemoglobin 13.6 G/DL (12.0-16.0) Hematocrit 43.8 % (37.0-47.0) Mean Corpuscular Volume 88 FL (80-99) Mean Corpuscular Hemoglobin 27.3 PG (27.0-31.0) Mean Corpuscular Hemoglobin Concent 31.0 G/DL (32.0-36.0) L Red Cell Distribution Width 18.0 % (11.6-14.8) H Platelet Count 288 K/UL (150-450) Mean Platelet Volume 5.6 FL (6.5-10.1) L Neutrophils (%) (Auto) 81.4 % (45.0-75.0) H Lymphocytes (%) (Auto) 7.2 % (20.0-45.0) L Monocytes (%) (Auto) 8.2 % (1.0-10.0) Eosinophils (%) (Auto) 0.2 % (0.0-3.0) Basophils (%) (Auto) 3.0 % (0.0-2.0) H Sodium Level 134 MMOL/L (136-145) L Potassium Level 4.4 MMOL/L (3.5-5.1) Chloride Level 98 MMOL/L (98-107) Carbon Dioxide Level 27 MMOL/L (21-32) Anion Gap 9 mmol/L (5-15) Blood Urea Nitrogen 57 mg/dL (7-18) H Creatinine 3.2 MG/DL (0.55-1.30) H Estimat Glomerular Filtration Rate 16.8 mL/min (>60) Glucose Level 145 MG/DL (74-106) H Lactic Acid Level 2.10 mmol/L (0.4-2.0) H Calcium Level 8.6 MG/DL (8.5-10.1) Total Bilirubin 0.8 MG/DL (0.2-1.0) Aspartate Amino Transf (AST/SGOT) 148 U/L (15-37) H Alanine Aminotransferase (ALT/SGPT) 165 U/L (12-78) H Alkaline Phosphatase 239 U/L (46-116) H Troponin I 0.102 ng/mL (0.000-0.056) Pro-B-Type Natriuretic Peptide 8417 pg/mL (0-125) H Total Protein 7.5 G/DL (6.4-8.2) Albumin 2.8 G/DL (3.4-5.0) L Globulin 4.7 g/dL Albumin/Globulin Ratio 0.6 (1.0-2.7) L Height (Feet): 5 Height (Inches): 3.00 Weight (Pounds): 160 Medications Current Medications Medications (Trade) Dose Ordered Sig/Ghislaine Route PRN Reason Start Time Stop Time Status Last Admin Dose Admin Acetaminophen (Tylenol) 500 mg Q4H PRN ORAL Mild Pain (Pain Scale 1-3) 05/03/20 10:45 06/02/20 10:44 Albuterol Sulfate (Proventil MDI) 2 puff Q4H PRN INH Shortness of Breath 05/03/20 09:00 08/01/20 08:59 05/06/20 09:55 Apixaban (Eliquis) 2.5 mg BID ORAL 05/03/20 18:00 08/01/20 17:59 05/05/20 18:15 Aspirin (Ecotrin) 81 mg DAILY ORAL 05/03/20 16:00 06/17/20 15:59 05/05/20 08:42 Diltiazem HCl (Cardizem CD) 120 mg BID ORAL 05/04/20 18:00 06/03/20 17:59 05/05/20 18:15 Methylprednisolone Sodium Succinate (Solu-MEDROL) 60 mg Q12H IVP 05/05/20 04:00 12/7/20 03:59 05/06/20 05:04 Pantoprazole (Protonix) 40 mg DAILY ORAL 05/03/20 16:00 06/02/20 15:59 05/05/20 08:41 Salmeterol Xinafoate/ Fluticasone (Advair 100/50 Diskus) 1 puffs TWICE A DAY INH 05/03/20 18:00 08/01/20 17:59 05/06/20 09:00 Sodium Chloride 1,000 ml @ 125 mls/hr Q8H IV 05/06/20 00:00 06/05/20 00:00 05/06/20 06:00 Assessment/Plan Problem List: (1) Elevated troponin ICD Codes: R79.89 - Other specified abnormal findings of blood chemistry SNOMED: 616214307, 391919583, 331036494 (2) Atrial fibrillation with RVR ICD Codes: I48.91 - Unspecified atrial fibrillation SNOMED: 186059930819771 (3) COVID-19 Assessment & Plan: ++ as per pulm and ID ICD Codes: U07.1 - COVID-19 SNOMED: 502065963 (4) Community acquired pneumonia ICD Codes: J18.9 - Pneumonia, unspecified organism SNOMED: 773142735 (5) COPD (chronic obstructive pulmonary disease) ICD Codes: J44.9 - Chronic obstructive pulmonary disease, unspecified SNOMED: 24964797 (6) Pulmonary fibrosis ICD Codes: J84.10 - Pulmonary fibrosis, unspecified SNOMED: 47217962 (7) Asthma ICD Codes: J45.909 - Unspecified asthma, uncomplicated SNOMED: 010149674 (8) History of asthma ICD Codes: Z87.09 - Personal history of other diseases of the respiratory system SNOMED: 538483056 (9) NSTEMI (non-ST elevated myocardial infarction) ICD Codes: I21.4 - Non-ST elevation (NSTEMI) myocardial infarction SNOMED: 625684373 (10) Moderate to severe pulmonary hypertension ICD Codes: I27.20 - Pulmonary hypertension, unspecified SNOMED: 41581845 (11) Asthma exacerbation ICD Codes: J45.901 - Unspecified asthma with (acute) exacerbation SNOMED: 096091447 (12) Abnormal LFTs Assessment & Plan: afebrile, HD stable labs noted lft's elevated US reviewed exam benign gb likely reactive from underlying pathology unlikely cholecystitis clinically fluid overload trend labs will monitor exam clinically Gallbladder demonstrates wall thickening and wall edema, gallbladder wall measuring up to 6 mm thick. There are gallstones. Sonographic Escoto's sign is negative. Common bile duct measures 3 mm in diameter. No intrahepatic biliary ductal dilatation. Liver demonstrates normal echogenicity, no focal abnormality. Portal vein and hepatic veins are patent. Pancreas is unremarkable. Spleen is unremarkable. Left kidney measures 9.2 cm in length. Right kidney measures 9.9 cm length. Both kidneys demonstrate normal echogenicity. There is no hydronephrosis. Small cyst is seen in the right kidney. . Abdominal aorta was not imaged . There is trace ascites. There is a small right pleural effusion incidentally noted Impression: Small right pleural effusion. Trace ascites Cholelithiasis. Gallbladder wall thickening may be related to hemodynamic factors causing the pleural fluid and ascites, but could also indicate acute cholecystitis. Consider nuclear medicine hepatobiliary scan if there is high clinical suspicion. Negative for dilated bile ducts Small right renal cyst incidentally noted ICD Codes: R94.5 - Abnormal results of liver function studies SNOMED: 286506941 (13) Acute respiratory failure with hypoxia ICD Codes: J96.01 - Acute respiratory failure with hypoxia SNOMED: 24343289, 704176708 Quentin Sanchez May 06, 2020 14:48
[2020-05-06 16:00] VITALS: BP 112/62
--- NOTE | 2020-05-06 17:31 | Pulmonology Progress Note ---
Subjective ROS Limited/Unobtainable: No Constitutional: Denies: fever, chills Gastrointestinal/Abdominal: Denies: nausea, vomiting, diarrhea Musculoskeletal: Denies: pain Allergies: Coded Allergies: CIPROFLOXACIN (Verified Allergy, Unknown, 09/27/17) All Systems: reviewed and negative except above Subjective on isolation care noted and reviewed ID noted tachy- cards aware Objective Last 24 Hour Vital Signs Date Time Temp Pulse Resp B/P (MAP) Pulse Ox O2 Delivery O2 Flow Rate FiO2 05/06/20 16:00 97.5 126 22 112/62 (79) 96 05/06/20 12:00 97.4 132 20 110/58 (75) 95 05/06/20 12:00 138 05/06/20 11:03 Nasal Cannula 2.0 05/06/20 08:25 98.0 101 22 115/65 (82) 96 05/06/20 08:00 96 05/06/20 08:00 138 05/06/20 04:00 113 05/06/20 04:00 97.9 91 20 119/75 (90) 97 05/06/20 00:00 97.0 76 20 110/76 (87) 97 05/06/20 00:00 103 05/05/20 21:00 Nasal Cannula 2.0 05/05/20 20:00 97.5 73 22 114/56 (75) 97 05/05/20 20:00 132 05/05/20 18:15 76 105/55 Intake and Output 05/05/20 05/06/20 19:00 07:00 Intake Total 320 ml Balance 320 ml Intake Oral 320 ml # Voids 2 # Bowel Movements 3 Objective deferred due to COVID Laboratory Tests 05/06/20 06:54: White Blood Count 7.2, Red Blood Count 4.97, Hemoglobin 13.6, Hematocrit 43.8, Mean Corpuscular Volume 88, Mean Corpuscular Hemoglobin 27.3, Mean Corpuscular Hemoglobin Concent 31.0L, Red Cell Distribution Width 18.0H, Platelet Count 288 , Mean Platelet Volume 5.6L, Neutrophils (%) (Auto) 81.4H, Lymphocytes (%) (Auto ) 7.2L, Monocytes (%) (Auto) 8.2, Eosinophils (%) (Auto) 0.2, Basophils (%) ( Auto) 3.0H, Sodium Level 134L, Potassium Level 4.4, Chloride Level 98, Carbon Dioxide Level 27, Anion Gap 9, Blood Urea Nitrogen 57H, Creatinine 3.2H, Estimat Glomerular Filtration Rate 16.8, Glucose Level 145H, Lactic Acid Level 2.10H, Calcium Level 8.6, Total Bilirubin 0.8, Aspartate Amino Transf (AST/SGOT ) 148H, Alanine Aminotransferase (ALT/SGPT) 165H, Alkaline Phosphatase 239H, Troponin I 0.102H, Pro-B-Type Natriuretic Peptide 8417H, Total Protein 7.5, Albumin 2.8L, Globulin 4.7, Albumin/Globulin Ratio 0.6L Current Medications Medications (Trade) Dose Ordered Sig/Ghislaine Route PRN Reason Start Time Stop Time Status Last Admin Dose Admin Acetaminophen (Tylenol) 500 mg Q4H PRN ORAL Mild Pain (Pain Scale 1-3) 05/03/20 10:45 06/02/20 10:44 Albuterol Sulfate (Proventil MDI) 2 puff Q4H PRN INH Shortness of Breath 05/03/20 09:00 08/01/20 08:59 05/06/20 09:55 Apixaban (Eliquis) 2.5 mg BID ORAL 05/03/20 18:00 08/01/20 17:59 05/05/20 18:15 Aspirin (Ecotrin) 81 mg DAILY ORAL 05/03/20 16:00 06/17/20 15:59 05/05/20 08:42 Diltiazem HCl (Cardizem CD) 120 mg BID ORAL 05/04/20 18:00 06/03/20 17:59 05/05/20 18:15 Methylprednisolone Sodium Succinate (Solu-MEDROL) 60 mg Q12H IVP 05/05/20 04:00 08/03/20 03:59 05/06/20 17:01 Pantoprazole (Protonix) 40 mg DAILY ORAL 05/03/20 16:00 06/02/20 15:59 05/05/20 08:41 Salmeterol Xinafoate/ Fluticasone (Advair 100/50 Diskus) 1 puffs TWICE A DAY INH 05/03/20 18:00 08/01/20 17:59 05/06/20 09:00 Sodium Chloride 1,000 ml @ 125 mls/hr Q8H IV 05/06/20 00:00 06/05/20 00:00 05/06/20 16:00 Assessment/Plan Assessment/Plan Impression: COVID-19 Chronic obstructive pulmonary disease/Asthma Community acquired pneumonia Atrial fibrillation with RVR Elevated troponin Congestive heart Failure sinus tachycardia Hypoxemia transaminitis consider cholecystitis Plan Continue IV Antibiotics per iD IV Steroids per ID Bronchodilator therapy O2 PRN Eliquis Monitor labs Covid 19 Isolation reviewed care and optimize gi evaluation and recommendations monitor cxr and oxygen needs guarded impression, plan, and exam edited and reviewed in detail care discussed with Aaron Bales MD May 06, 2020 17:31
[2020-05-06] MEDS ORDERED: dilTIAZem HCl 25mg/5ml Inj IVP SCH (18:45)
--- NOTE | 2020-05-06 19:45 | NUR ---
NURSE HAND-OFF REPORT: Important Events on Shift: pt has been Afib low 100's to high 150's Patient Status: full code Diet: cardiac Pending Orders: Hepatobiliary test on hold until pt testes neg. for covid Pending Results/Labs:morning labs Pending MD notification: Latest Vital Signs: Temperature 97.5 , Pulse 123 , B/P 110 /58 , Respiratory Rate 22 , O2 SAT 96 , Nasal Cannula, O2 Flow Rate 2.0 . Vital Sign Comment: EKG Rhythm: Atrial Fibrillation Rhythm change?: N MD Notified?: N - MD Response: Latest Lechuga Fall Score: 60 Fall Risk: High Risk Safety Measures: Call light Within Reach, Bed Alarm Zone 1, Side Rails Side Rails x2, Bed position Low and Locked. Fall Precautions: y Yellow Socks y Yellow Gown y Door Sign y Patient Fall Education Report given to .
--- NOTE | 2020-05-06 19:50 | NUR ---
NURSE NOTES: Important Events on Shift: Received report from Bobbi Wyatt RN. Pt denies pain. Patient Status: Afib, COVID +, otherwise stable Diet: Cardiac Pending Orders: New Cardizem IVP once Pending Results/Labs: CMP, BMP, CRP, CBC, lactic, lipase, Sed Rate Pending MD notification: Verified with Chris that pt IV 0.45NS @ 125ml/hr is appropriate given oliguria. Latest Vital Signs: Temperature 97.4 , Pulse 130 , B/P 127 /64 , Respiratory Rate 26 , O2 SAT 96 , Nasal Cannula, O2 Flow Rate 2.0 . Vital Sign Comment: Afib with PVCs EKG Rhythm: Atrial Fibrillation with PVC Rhythm change?: N MD Notified?: Tracy Reyes MD Response: No New Orders Received Latest Lechuga Fall Score: 45 Fall Risk: High Risk Safety Measures: Call light Within Reach, Bed Alarm Zone 1, Side Rails Side Rails x2, Bed position Low and Locked. Fall Precautions: Yellow Socks YES Yellow Gown YES Door Sign YES Patient Fall Education YES
[2020-05-06 20:00] VITALS: BP 136/69
--- NOTE | 2020-05-06 20:58 | NUR ---
NURSE NOTES: Pt is Afib at 130 bpm per assistant professor of german. MD ordered Cardizem now dose, but pt refused it. Pt cautioned on risks of AFib and high HR, but continue to refuse. [place] notified of refusal, no new orders given. Will continue to monitor closely.
[2020-05-07] VITALS: BP 127/64
--- NOTE | 2020-05-07 01:08 | Cardiology Progress Note ---
Subjective DATE OF SERVICE: May 06, 2020 Still SOB with increased congestion On low flow oxygen delivery Monitor: AFIb with frequent episodes of RVR - IV diltiazem dose added again, and maint dosing advanced. Poor oral intake D/W RN - urine output poor; labs reveal worsening renal function. Elevated K+ yesterday req'd kayexalate. Lactic acid remains elevated Objective Last 24 Hour Vital Signs Date Time Temp Pulse Resp B/P (MAP) Pulse Ox O2 Delivery O2 Flow Rate FiO2 05/06/20 21:00 Nasal Cannula 2.0 05/06/20 20:00 97.7 130 24 136/69 (91) 93 05/06/20 20:00 130 05/06/20 18:45 130 136/69 05/06/20 17:27 123 110/58 05/06/20 16:00 97.5 126 22 112/62 (79) 96 05/06/20 12:00 97.4 132 20 110/58 (75) 95 05/06/20 12:00 138 05/06/20 11:03 Nasal Cannula 2.0 05/06/20 08:25 98.0 101 22 115/65 (82) 96 05/06/20 08:00 96 05/06/20 08:00 138 05/06/20 04:00 113 05/06/20 04:00 97.9 91 20 119/75 (90) 97 ROS: unchanged from my eval of 05/03/20 LUNGS: no accessory muscle use, expiratory wheezing, diminished breath sounds CARDIAC: normal S1 and S2, no murmur, irregularly irregular ABDOMEN: normal bowel sounds, non tender, soft, no organomegaly EXTREMITIES: no calf tenderness, trace edema Laboratory Tests Test 05/06/20 06:54 White Blood Count 7.2 K/UL (4.8-10.8) Red Blood Count 4.97 M/UL (4.20-5.40) Hemoglobin 13.6 G/DL (12.0-16.0) Hematocrit 43.8 % (37.0-47.0) Mean Corpuscular Volume 88 FL (80-99) Mean Corpuscular Hemoglobin 27.3 PG (27.0-31.0) Mean Corpuscular Hemoglobin Concent 31.0 G/DL (32.0-36.0) L Red Cell Distribution Width 18.0 % (11.6-14.8) H Platelet Count 288 K/UL (150-450) Mean Platelet Volume 5.6 FL (6.5-10.1) L Neutrophils (%) (Auto) 81.4 % (45.0-75.0) H Lymphocytes (%) (Auto) 7.2 % (20.0-45.0) L Monocytes (%) (Auto) 8.2 % (1.0-10.0) Eosinophils (%) (Auto) 0.2 % (0.0-3.0) Basophils (%) (Auto) 3.0 % (0.0-2.0) H Sodium Level 134 MMOL/L (136-145) L Potassium Level 4.4 MMOL/L (3.5-5.1) Chloride Level 98 MMOL/L (98-107) Carbon Dioxide Level 27 MMOL/L (21-32) Anion Gap 9 mmol/L (5-15) Blood Urea Nitrogen 57 mg/dL (7-18) H Creatinine 3.2 MG/DL (0.55-1.30) H Estimat Glomerular Filtration Rate 16.8 mL/min (>60) Glucose Level 145 MG/DL (74-106) H Lactic Acid Level 2.10 mmol/L (0.4-2.0) H Calcium Level 8.6 MG/DL (8.5-10.1) Total Bilirubin 0.8 MG/DL (0.2-1.0) Aspartate Amino Transf (AST/SGOT) 148 U/L (15-37) H Alanine Aminotransferase (ALT/SGPT) 165 U/L (12-78) H Alkaline Phosphatase 239 U/L (46-116) H Troponin I 0.102 ng/mL (0.000-0.056) Pro-B-Type Natriuretic Peptide 8417 pg/mL (0-125) H Total Protein 7.5 G/DL (6.4-8.2) Albumin 2.8 G/DL (3.4-5.0) L Globulin 4.7 g/dL Albumin/Globulin Ratio 0.6 (1.0-2.7) L Assessment/Plan Assessment/Plan COPD exacerb with active bronchospasm Lactic acidosis COVID 19 PNA Acute on chr renal failure - now with hyperkalemia Chronic systolic/diastolic CHF Pulmonary fibrosis with chronic hypoxia Paroxysmal AFib with RVR Hx Multifocal atrial arrhythmias Pulmonary HTN - severe Hx NSVTach Acute myocardial ischemia Maintain diltiazem - titrate Steroids per pulmonary Inhaled bronchodilators IVF continued Kayexalate as needed for elevated K+ No diuresis at present Full anticoagulation for cardioembolic prophyl Isolation Anti-viral rx per ID Simone Perez MD May 07, 2020 01:08
[2020-05-07 04:00] VITALS: BP 129/66
[2020-05-07] MEDS: Solu-MEDROL 125mg Inj IVP SCH (04:00)
--- NOTE | 2020-05-07 04:00 | NUR ---
NURSE NOTES: Pt refused Solu-Medrol. Pt educated about benefits of med and risks r/t not taking it, and pt continues to refuse. Will endorse to AM shift to notify MD of refusal. Will continue to monitor closely.
--- NOTE | 2020-05-07 07:30 | NUR ---
NURSE NOTES: Received patient in bed. Awake, A/O x3. On 2 L via NC. Patient denies pain. IV in the Right AC, IVF infusing as ordered. Purewick in place. Patient is a high fall risk d/t Lechuga fall score of 45. Patient placed in a room close to the nurse's station for safety and close monitoring. Yellow socks on, yellow gown on, bed at the lowest position, bed locked, bed alarm placed on high sensitivity, call light placed within reach with return demonstration. CN and CLIENT CONSULTANT made aware.
[2020-05-07 07:36] LABS: BASOPHILS % (AUTO) 3.9 % (0.0-2.0); HEMATOCRIT 45.2 % (37.0-47.0); HEMOGLOBIN 14.1 G/DL (12.0-16.0); LYMPHOCYTES % (AUTO) 5.2 % (20.0-45.0); MEAN CORPUSCULAR VOLUME 88 FL (80-99); MONOCYTES % (AUTO) 9.5 % (1.0-10.0); NEUTROPHILS % (AUTO) 81.4 % (45.0-75.0); PLATELET COUNT 261 K/UL (150-450); RED BLOOD COUNT 5.15 M/UL (4.20-5.40); RED CELL DISTRIBUTION WIDTH 17.7 % (11.6-14.8); WHITE BLOOD COUNT 7.3 K/UL (4.8-10.8)
--- NOTE | 2020-05-07 07:43 | Pulmonology Progress Note ---
Subjective ROS Limited/Unobtainable: No Constitutional: Denies: fever, chills Gastrointestinal/Abdominal: Denies: nausea, vomiting, diarrhea Musculoskeletal: Denies: pain Allergies: Coded Allergies: CIPROFLOXACIN (Verified Allergy, Unknown, 09/27/17) All Systems: reviewed and negative except above Subjective on isolation care noted and reviewed ID noted tachy- improved message left for family Objective Last 24 Hour Vital Signs Date Time Temp Pulse Resp B/P (MAP) Pulse Ox O2 Delivery O2 Flow Rate FiO2 05/07/20 04:00 94 05/07/20 00:00 106 05/07/20 00:00 97.4 106 26 127/64 (85) 96 05/06/20 21:00 Nasal Cannula 2.0 05/06/20 20:00 97.7 130 24 136/69 (91) 93 05/06/20 20:00 130 05/06/20 18:45 130 136/69 05/06/20 17:27 123 110/58 05/06/20 16:00 97.5 126 22 112/62 (79) 96 05/06/20 12:00 97.4 132 20 110/58 (75) 95 05/06/20 12:00 138 05/06/20 11:03 Nasal Cannula 2.0 05/06/20 08:25 98.0 101 22 115/65 (82) 96 05/06/20 08:00 96 05/06/20 08:00 138 Intake and Output 05/06/20 05/07/20 19:00 07:00 Intake Total 240 ml 200 ml Output Total 200 ml Balance 240 ml 0 ml Intake Oral 240 ml 200 ml Output Urine Total 200 ml # Voids 3 3 Objective deferred due to COVID Laboratory Tests 05/07/20 07:05: White Blood Count [Pending], Red Blood Count [Pending], Hemoglobin [Pending], Hematocrit [Pending], Mean Corpuscular Volume [Pending], Mean Corpuscular Hemoglobin [Pending], Mean Corpuscular Hemoglobin Concent [Pending], Red Cell Distribution Width [Pending], Platelet Count [Pending], Mean Platelet Volume [ Pending], Neutrophils (%) (Auto) [Pending], Lymphocytes (%) (Auto) [Pending], Monocytes (%) (Auto) [Pending], Eosinophils (%) (Auto) [Pending], Basophils (%) (Auto) [Pending], Erythrocyte Sedimentation Rate [Pending], Sodium Level [ Pending], Potassium Level [Pending], Chloride Level [Pending], Carbon Dioxide Level [Pending], Blood Urea Nitrogen [Pending], Creatinine [Pending], Estimat Glomerular Filtration Rate [Pending], Glucose Level [Pending], Lactic Acid Level [Pending], Calcium Level [Pending], Total Bilirubin [Pending], Aspartate Amino Transf (AST/SGOT) [Pending], Alanine Aminotransferase (ALT/SGPT) [Pending] , Alkaline Phosphatase [Pending], C-Reactive Protein, Quantitative [Pending], Total Protein [Pending], Albumin [Pending], Globulin [Pending], Amylase Level [ Pending], Lipase [Pending] Current Medications Medications (Trade) Dose Ordered Sig/Ghislaine Route PRN Reason Start Time Stop Time Status Last Admin Dose Admin Acetaminophen (Tylenol) 500 mg Q4H PRN ORAL Mild Pain (Pain Scale 1-3) 05/03/20 10:45 06/02/20 10:44 Albuterol Sulfate (Proventil MDI) 2 puff Q4H PRN INH Shortness of Breath 05/03/20 09:00 08/01/20 08:59 05/06/20 09:55 Apixaban (Eliquis) 2.5 mg BID ORAL 05/03/20 18:00 08/01/20 17:59 05/06/20 17:26 Aspirin (Ecotrin) 81 mg DAILY ORAL 05/03/20 16:00 06/17/20 15:59 05/05/20 08:42 Diltiazem HCl (Cardizem CD) 180 mg BID ORAL 05/07/20 09:00 06/06/20 08:59 Methylprednisolone Sodium Succinate (Solu-MEDROL) 60 mg Q12H IVP 05/05/20 04:00 08/03/20 03:59 05/06/20 17:01 Pantoprazole (Protonix) 40 mg DAILY ORAL 05/03/20 16:00 06/02/20 15:59 05/05/20 08:41 Salmeterol Xinafoate/ Fluticasone (Advair 100/50 Diskus) 1 puffs TWICE A DAY INH 05/03/20 18:00 08/01/20 17:59 05/06/20 17:26 Sodium Chloride 1,000 ml @ 125 mls/hr Q8H IV 05/06/20 00:00 06/05/20 00:00 05/07/20 00:00 Assessment/Plan Assessment/Plan Impression: COVID-19 Chronic obstructive pulmonary disease/Asthma Community acquired pneumonia Atrial fibrillation with RVR Elevated troponin Congestive heart Failure sinus tachycardia Hypoxemia transaminitis consider cholecystitis Plan Continue IV Antibiotics per iD IV Steroids per ID Bronchodilator therapy O2 PRN Eliquis and monitor HH Monitor labs Covid 19 Isolation reviewed care and optimize gi evaluation and recommendations and pending HIDA monitor cxr and oxygen needs guarded impression, plan, and exam edited and reviewed in detail care discussed with Aaron Bales MD May 07, 2020 07:43
--- NOTE | 2020-05-07 07:45 | NUR ---
NURSE HAND-OFF REPORT: Important Events on Shift: Pt refusing meds, including cardizem and solu-medral. Kaveh aware. Patient Status: Afib, SOB Diet: Cardiac Cardiac Pending Orders: Hepatobiliary study on hold rt Covid + Pending Results/Labs: CMP, BMP, CRP, CBC, lactic, lipase, sed rate Pending MD notification: None Latest Vital Signs: Temperature 97.0 , Pulse 84 , B/P 129 /66 , Respiratory Rate 24 , O2 SAT 94 , Nasal Cannula, O2 Flow Rate 2.0 . Vital Sign Comment: EKG Rhythm: Atrial Fibrillation Rhythm change?: N MD Notified?: Tracy Reyes MD Response: No New Orders Received Latest Lechuga Fall Score: 45 Fall Risk: High Risk Safety Measures: Call light Within Reach, Bed Alarm Zone 1, Side Rails Side Rails x2, Bed position Low and Locked. Fall Precautions: YES Yellow Socks YES Yellow Gown YES Door Sign YES Patient Fall Education YES Report given to Gabe Dai RN
[2020-05-07 08:00] VITALS: BP 132/69
[2020-05-07 08:02] LABS: ALANINE AMINOTRANSFERASE 148 U/L (12-78); ALBUMIN 2.7 G/DL (3.4-5.0); ALBUMIN/GLOBULIN RATIO 0.6 (1.0-2.7); ALKALINE PHOSPHATASE 259 U/L (46-116); ANION GAP 13 mmol/L (5-15); ASPARTATE AMINO TRANSFERASE 81 U/L (15-37); BILIRUBIN,TOTAL 0.6 MG/DL (0.2-1.0); BLOOD UREA NITROGEN 60 mg/dL (7-18); CARBON DIOXIDE 24 MMOL/L (21-32); CHLORIDE 96 MMOL/L (98-107); CREATININE 3.1 MG/DL (0.55-1.30); SODIUM 133 MMOL/L (136-145)
[2020-05-07] MEDS: dilTIAZem HCl ER 180mg cap ORAL SCH ×2 (08:27→17:49)
[2020-05-07] MEDS: Albuterol 90mcg Inhaler 8gm INH PRN ×3 (08:28→17:49)
[2020-05-07] MEDS: Eliquis 2.5mg tablet ORAL SCH ×2 (08:28→17:49)
[2020-05-07] MEDS: Wixela 100/50 Inhaler - 60 dose INH SCH ×2 (08:36→17:50)
[2020-05-07] MEDS ORDERED: Solu-MEDROL 125mg Inj IVP SCH (09:00)
--- NOTE | 2020-05-07 10:11 | Surgery Progress Note ---
Surgery Progress Note Subjective Additional Comments afebrile tachy lft's improved comfortable no n/v Objective Last 24 Hour Vital Signs Date Time Temp Pulse Resp B/P (MAP) Pulse Ox O2 Delivery O2 Flow Rate FiO2 05/07/20 09:00 Nasal Cannula 2.0 05/07/20 08:27 132 132/69 05/07/20 08:00 97.5 132 22 132/69 (90) 95 05/07/20 08:00 123 05/07/20 04:00 97.0 84 24 129/66 (87) 94 05/07/20 04:00 94 05/07/20 00:00 106 05/07/20 00:00 97.4 106 26 127/64 (85) 96 05/06/20 21:00 Nasal Cannula 2.0 05/06/20 20:00 97.7 130 24 136/69 (91) 93 05/06/20 20:00 130 05/06/20 18:45 130 136/69 05/06/20 17:27 123 110/58 05/06/20 16:00 97.5 126 22 112/62 (79) 96 05/06/20 12:00 97.4 132 20 110/58 (75) 95 05/06/20 12:00 138 05/06/20 11:03 Nasal Cannula 2.0 I&O Intake and Output 05/06/20 05/07/20 19:00 07:00 Intake Total 240 ml 200 ml Output Total 200 ml Balance 240 ml 0 ml Intake Oral 240 ml 200 ml Output Urine Total 200 ml # Voids 3 3 Laboratory Tests Test 05/07/20 07:05 05/07/20 09:00 White Blood Count 7.3 K/UL (4.8-10.8) Red Blood Count 5.15 M/UL (4.20-5.40) Hemoglobin 14.1 G/DL (12.0-16.0) Hematocrit 45.2 % (37.0-47.0) Mean Corpuscular Volume 88 FL (80-99) Mean Corpuscular Hemoglobin 27.3 PG (27.0-31.0) Mean Corpuscular Hemoglobin Concent 31.1 G/DL (32.0-36.0) L Red Cell Distribution Width 17.7 % (11.6-14.8) H Platelet Count 261 K/UL (150-450) Mean Platelet Volume 5.5 FL (6.5-10.1) L Neutrophils (%) (Auto) 81.4 % (45.0-75.0) H Lymphocytes (%) (Auto) 5.2 % (20.0-45.0) L Monocytes (%) (Auto) 9.5 % (1.0-10.0) Eosinophils (%) (Auto) 0.0 % (0.0-3.0) Basophils (%) (Auto) 3.9 % (0.0-2.0) H Sodium Level 133 MMOL/L (136-145) L Potassium Level 4.0 MMOL/L (3.5-5.1) Chloride Level 96 MMOL/L (98-107) L Carbon Dioxide Level 24 MMOL/L (21-32) Anion Gap 13 mmol/L (5-15) Blood Urea Nitrogen 60 mg/dL (7-18) H Creatinine 3.1 MG/DL (0.55-1.30) H Estimat Glomerular Filtration Rate 17.6 mL/min (>60) Glucose Level 152 MG/DL (74-106) H Lactic Acid Level 2.00 mmol/L (0.4-2.0) Calcium Level 9.0 MG/DL (8.5-10.1) Total Bilirubin 0.6 MG/DL (0.2-1.0) Aspartate Amino Transf (AST/SGOT) 81 U/L (15-37) H Alanine Aminotransferase (ALT/SGPT) 148 U/L (12-78) H Alkaline Phosphatase 259 U/L (46-116) H C-Reactive Protein, Quantitative 2.4 mg/dL (0.00-0.90) H Total Protein 7.4 G/DL (6.4-8.2) Albumin 2.7 G/DL (3.4-5.0) L Globulin 4.7 g/dL Albumin/Globulin Ratio 0.6 (1.0-2.7) L Amylase Level 57 U/L (25-115) Lipase 69 U/L (73-393) L Erythrocyte Sedimentation Rate Pending Plan Problems: (1) Elevated troponin (2) Atrial fibrillation with RVR (3) COVID-19 Assessment & Plan: ++ as per pulm and ID (4) Community acquired pneumonia (5) COPD (chronic obstructive pulmonary disease) (6) Pulmonary fibrosis (7) Asthma (8) History of asthma (9) NSTEMI (non-ST elevated myocardial infarction) (10) Moderate to severe pulmonary hypertension (11) Asthma exacerbation (12) Abnormal LFTs Assessment & Plan: afebrile, HD stable labs noted lft's elevated US reviewed exam benign gb likely reactive from underlying pathology unlikely cholecystitis clinically fluid overload trend labs will monitor exam clinically Gallbladder demonstrates wall thickening and wall edema, gallbladder wall measuring up to 6 mm thick. There are gallstones. Sonographic Escoto's sign is negative. Common bile duct measures 3 mm in diameter. No intrahepatic biliary ductal dilatation. Liver demonstrates normal echogenicity, no focal abnormality. Portal vein and hepatic veins are patent. Pancreas is unremarkable. Spleen is unremarkable. Left kidney measures 9.2 cm in length. Right kidney measures 9.9 cm length. Both kidneys demonstrate normal echogenicity. There is no hydronephrosis. Small cyst is seen in the right kidney. . Abdominal aorta was not imaged . There is trace ascites. There is a small right pleural effusion incidentally noted Impression: Small right pleural effusion. Trace ascites Cholelithiasis. Gallbladder wall thickening may be related to hemodynamic factors causing the pleural fluid and ascites, but could also indicate acute cholecystitis. Consider nuclear medicine hepatobiliary scan if there is high clinical suspicion. Negative for dilated bile ducts Small right renal cyst incidentally noted (13) Acute respiratory failure with hypoxia Quentin Sanchez May 07, 2020 10:11
--- NOTE | 2020-05-07 10:42 | NUR ---
RADIOLOGY DEPT., CHEST X-RAY DONE.-P.DYE
--- NOTE | 2020-05-07 11:39 | Diagnostic Imaging Report ---
Indication: Shortness of breath Technique: One view of the chest Comparison: 05/03/2020 Findings: Bilateral interstitial and airspace infiltrates persist, unchanged. There is increased pleural fluid on the left. The heart size is normal Impression: Increased left pleural effusion Stable bilateral parenchymal disease
[2020-05-07 12:00] VITALS: BP 138/72
--- NOTE | 2020-05-07 12:03 | Infectious Diseases Prog Note ---
Assessment/Plan Assessment/Plan A 1. COVID 19 pneumonia s/p ivermectin 9.7.20 2. renal failure 3. increased LFT 4. COPD 5. CHF, Diastolic & systolic 6. asthma 7. Cholelithiasis r/o cholecystitis P 1. continue solumedrol 2. will follow up cultures 3. Will f/u HIDA scan Subjective ROS Limited/Unobtainable: No Constitutional: Reports: anorexia Respiratory: Reports: no symptoms Cardiovascular: Reports: no symptoms Gastrointestinal/Abdominal: Reports: no symptoms Genitourinary: Reports: no symptoms Allergies: Coded Allergies: CIPROFLOXACIN (Verified Allergy, Unknown, 09/27/17) Objective Last 24 Hour Vital Signs Date Time Temp Pulse Resp B/P (MAP) Pulse Ox O2 Delivery O2 Flow Rate FiO2 05/07/20 09:00 Nasal Cannula 2.0 05/07/20 08:27 132 132/69 05/07/20 08:00 97.5 132 22 132/69 (90) 95 05/07/20 08:00 123 05/07/20 04:00 97.0 84 24 129/66 (87) 94 05/07/20 04:00 94 05/07/20 00:00 106 05/07/20 00:00 97.4 106 26 127/64 (85) 96 05/06/20 21:00 Nasal Cannula 2.0 05/06/20 20:00 97.7 130 24 136/69 (91) 93 05/06/20 20:00 130 05/06/20 18:45 130 136/69 05/06/20 17:27 123 110/58 05/06/20 16:00 97.5 126 22 112/62 (79) 96 Height (Feet): 5 Height (Inches): 3.00 Weight (Pounds): 160 General Appearance: no acute distress HEENT: mucous membranes moist Respiratory/Chest: lungs clear, other - oxygen by nasal cannula Cardiovascular: tachycardia Abdomen: soft, non tender Extremities: other - lrgs edema Neurologic/Psychiatric: alert, oriented x 3, responsive Laboratory Tests Test 05/07/20 07:05 05/07/20 09:00 White Blood Count 7.3 K/UL (4.8-10.8) Red Blood Count 5.15 M/UL (4.20-5.40) Hemoglobin 14.1 G/DL (12.0-16.0) Hematocrit 45.2 % (37.0-47.0) Mean Corpuscular Volume 88 FL (80-99) Mean Corpuscular Hemoglobin 27.3 PG (27.0-31.0) Mean Corpuscular Hemoglobin Concent 31.1 G/DL (32.0-36.0) L Red Cell Distribution Width 17.7 % (11.6-14.8) H Platelet Count 261 K/UL (150-450) Mean Platelet Volume 5.5 FL (6.5-10.1) L Neutrophils (%) (Auto) 81.4 % (45.0-75.0) H Lymphocytes (%) (Auto) 5.2 % (20.0-45.0) L Monocytes (%) (Auto) 9.5 % (1.0-10.0) Eosinophils (%) (Auto) 0.0 % (0.0-3.0) Basophils (%) (Auto) 3.9 % (0.0-2.0) H Sodium Level 133 MMOL/L (136-145) L Potassium Level 4.0 MMOL/L (3.5-5.1) Chloride Level 96 MMOL/L (98-107) L Carbon Dioxide Level 24 MMOL/L (21-32) Anion Gap 13 mmol/L (5-15) Blood Urea Nitrogen 60 mg/dL (7-18) H Creatinine 3.1 MG/DL (0.55-1.30) H Estimat Glomerular Filtration Rate 17.6 mL/min (>60) Glucose Level 152 MG/DL (74-106) H Lactic Acid Level 2.00 mmol/L (0.4-2.0) Calcium Level 9.0 MG/DL (8.5-10.1) Total Bilirubin 0.6 MG/DL (0.2-1.0) Aspartate Amino Transf (AST/SGOT) 81 U/L (15-37) H Alanine Aminotransferase (ALT/SGPT) 148 U/L (12-78) H Alkaline Phosphatase 259 U/L (46-116) H C-Reactive Protein, Quantitative 2.4 mg/dL (0.00-0.90) H Total Protein 7.4 G/DL (6.4-8.2) Albumin 2.7 G/DL (3.4-5.0) L Globulin 4.7 g/dL Albumin/Globulin Ratio 0.6 (1.0-2.7) L Amylase Level 57 U/L (25-115) Lipase 69 U/L (73-393) L Erythrocyte Sedimentation Rate 32 MM/HR (0-30) H Current Medications Medications (Trade) Dose Ordered Sig/Ghislaine Route PRN Reason Start Time Stop Time Status Last Admin Dose Admin Acetaminophen (Tylenol) 500 mg Q4H PRN ORAL Mild Pain (Pain Scale 1-3) 05/03/20 10:45 06/02/20 10:44 Albuterol Sulfate (Proventil MDI) 2 puff Q4H PRN INH Shortness of Breath 05/03/20 09:00 08/01/20 08:59 05/07/20 08:28 Apixaban (Eliquis) 2.5 mg BID ORAL 05/03/20 18:00 08/01/20 17:59 05/07/20 08:28 Aspirin (Ecotrin) 81 mg DAILY ORAL 05/03/20 16:00 06/17/20 15:59 05/05/20 08:42 Diltiazem HCl (Cardizem CD) 180 mg BID ORAL 05/07/20 09:00 06/06/20 08:59 05/07/20 08:27 Methylprednisolone Sodium Succinate (Solu-MEDROL) 60 mg Q12HR IVP 05/07/20 09:00 05/14/20 21:01 05/07/20 08:27 Pantoprazole (Protonix) 40 mg DAILY ORAL 05/03/20 16:00 06/02/20 15:59 05/07/20 08:27 Salmeterol Xinafoate/ Fluticasone (Advair 100/50 Diskus) 1 puffs TWICE A DAY INH 05/03/20 18:00 08/01/20 17:59 05/07/20 08:36 Sodium Chloride 1,000 ml @ 125 mls/hr Q8H IV 05/06/20 00:00 06/05/20 00:00 05/07/20 08:26 Freddy Woodson MD May 07, 2020 12:03
--- NOTE | 2020-05-07 13:48 | General Progress Note ---
Assessment/Plan Problem List: (1) Pulmonary fibrosis ICD Codes: J84.10 - Pulmonary fibrosis, unspecified SNOMED: 73572685 (2) History of asthma ICD Codes: Z87.09 - Personal history of other diseases of the respiratory system SNOMED: 247995852 (3) Asthma ICD Codes: J45.909 - Unspecified asthma, uncomplicated SNOMED: 747836768 (4) NSTEMI (non-ST elevated myocardial infarction) ICD Codes: I21.4 - Non-ST elevation (NSTEMI) myocardial infarction SNOMED: 282133196 (5) Elevated troponin ICD Codes: R79.89 - Other specified abnormal findings of blood chemistry SNOMED: 917725345, 933089614, 754078790 (6) COPD (chronic obstructive pulmonary disease) ICD Codes: J44.9 - Chronic obstructive pulmonary disease, unspecified SNOMED: 29115640 (7) Atrial fibrillation with RVR ICD Codes: I48.91 - Unspecified atrial fibrillation SNOMED: 551683780599478 (8) Community acquired pneumonia ICD Codes: J18.9 - Pneumonia, unspecified organism SNOMED: 301709803 Status: stable Assessment/Plan: cont current rx wean iv steroids ivf- decreased monitor cxr resp rx/mdi monitor renal fxn hida scan dw/ dtr itzel. wants to be contacted if pt refuses meds. she will try to convince pt to cooperate Subjective ROS Limited/Unobtainable: No Constitutional: Reports: malaise, weakness HEENT: Reports: no symptoms Cardiovascular: Reports: no symptoms Respiratory: Reports: shortness of breath Gastrointestinal/Abdominal: Reports: no symptoms Genitourinary: Reports: no symptoms Neurologic/Psychiatric: Reports: no symptoms Endocrine: Reports: no symptoms Hematologic/Lymphatic: Reports: anemia Allergies: Coded Allergies: CIPROFLOXACIN (Verified Allergy, Unknown, 09/27/17) All Systems: reviewed and negative except above Subjective uncontrolled afib. refusing cardizem. states she wont take until she talks with her dtr. refusing most meds. no fever or chills. no spb. no chest pain. Objective Last 24 Hour Vital Signs Date Time Temp Pulse Resp B/P (MAP) Pulse Ox O2 Delivery O2 Flow Rate FiO2 05/07/20 12:00 108 05/07/20 12:00 97.9 105 20 138/72 (94) 95 05/07/20 09:00 Nasal Cannula 2.0 05/07/20 08:27 132 132/69 05/07/20 08:00 97.5 132 22 132/69 (90) 95 05/07/20 08:00 123 05/07/20 04:00 97.0 84 24 129/66 (87) 94 05/07/20 04:00 94 05/07/20 00:00 106 05/07/20 00:00 97.4 106 26 127/64 (85) 96 05/06/20 21:00 Nasal Cannula 2.0 05/06/20 20:00 97.7 130 24 136/69 (91) 93 05/06/20 20:00 130 05/06/20 18:45 130 136/69 05/06/20 17:27 123 110/58 05/06/20 16:00 97.5 126 22 112/62 (79) 96 Intake and Output 05/06/20 05/07/20 19:00 07:00 Intake Total 240 ml 200 ml Output Total 200 ml Balance 240 ml 0 ml Intake Oral 240 ml 200 ml Output Urine Total 200 ml # Voids 3 3 Laboratory Tests 05/07/20 07:05: White Blood Count 7.3, Red Blood Count 5.15, Hemoglobin 14.1, Hematocrit 45.2, Mean Corpuscular Volume 88, Mean Corpuscular Hemoglobin 27.3, Mean Corpuscular Hemoglobin Concent 31.1L, Red Cell Distribution Width 17.7H, Platelet Count 261 , Mean Platelet Volume 5.5L, Neutrophils (%) (Auto) 81.4H, Lymphocytes (%) (Auto ) 5.2L, Monocytes (%) (Auto) 9.5, Eosinophils (%) (Auto) 0.0, Basophils (%) ( Auto) 3.9H, Sodium Level 133L, Potassium Level 4.0, Chloride Level 96L, Carbon Dioxide Level 24, Anion Gap 13, Blood Urea Nitrogen 60H, Creatinine 3.1H, Estimat Glomerular Filtration Rate 17.6, Glucose Level 152H, Lactic Acid Level 2.00, Calcium Level 9.0, Total Bilirubin 0.6, Aspartate Amino Transf (AST/SGOT) 81H, Alanine Aminotransferase (ALT/SGPT) 148H, Alkaline Phosphatase 259H, C- Reactive Protein, Quantitative 2.4H, Total Protein 7.4, Albumin 2.7L, Globulin 4.7, Albumin/Globulin Ratio 0.6L, Amylase Level 57, Lipase 69L 05/07/20 09:00: Erythrocyte Sedimentation Rate 32H Height (Feet): 5 Height (Inches): 3.00 Weight (Pounds): 160 Objective General Appearance: WD/WN, no apparent distress, alert EENT: PERRL/EOMI Neck: non-tender, normal alignment, supple Cardiovascular: normal rate, regular rhythm Respiratory/Chest: chest wall non-tender, lungs clear, normal breath sounds, no respiratory distress, no accessory muscle use Abdomen: normal bowel sounds, non tender, soft, no organomegaly Edema: no edema noted Arm (L), no edema noted Arm (R) 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
[2020-05-07 16:00] VITALS: BP 125/68
--- NOTE | 2020-05-07 19:24 | NUR ---
NURSE HAND-OFF REPORT: Important Events on Shift:[IVF changed, patient accepted all medications] Patient Status: [FULL CODE] Diet: [] Pending Orders: [] Pending Results/Labs:[] Pending MD notification:[] Latest Vital Signs: Temperature 97.7 , Pulse 101 , B/P 125 /68 , Respiratory Rate 22 , O2 SAT 96 , Nasal Cannula, O2 Flow Rate 2.0 . Vital Sign Comment: [] EKG Rhythm: VT 7 beats Rhythm change?: Y Notified?: Y -Dr. Chris MCCRACKEN Response: No New Orders Received Latest Lechuga Fall Score: 45 Fall Risk: High Risk Safety Measures: Call light Within Reach, Bed Alarm Zone 1, Side Rails Side Rails x2, Bed position Low and Locked. Fall Precautions: Yellow Socks Yellow Gown Door Sign Patient Fall Education Report given to [Sterling SALGADO].
--- NOTE | 2020-05-07 19:25 | NUR ---
NURSES NOTES: Important Events on Shift: Received report from Gabe Dai RN. Pt denies pain. Will continue plan of care and close monitoring. Patient Status: stable Diet: Cardiac Pending Orders: None Pending Results/Labs: None Pending MD notification: None Latest Vital Signs: Temperature 98.6 , Pulse 87 , B/P 126 /84 , Respiratory Rate 20 , O2 SAT 100 , Nasal Cannula, O2 Flow Rate 2.0 . Vital Sign Comment: EKG Rhythm: VT 7 beats Rhythm change?: Tracy MCCRACKEN Notified?: Tracy -Dr. Chris MCCRACKEN Response: No New Orders Received Latest Lechuga Fall Score: 45 Fall Risk: High Risk Safety Measures: Call light Within Reach, Bed Alarm Zone 1, Side Rails Side Rails x2, Bed position Low and Locked. Fall Precautions: YES Yellow Socks YES Yellow Gown YES Door Sign YES Patient Fall Education YES
[2020-05-07 20:00] VITALS: BP 126/84
[2020-05-08] VITALS: BP 117/54
--- NOTE | 2020-05-08 01:25 | Cardiology Progress Note ---
Subjective DATE OF SERVICE: May 07, 2020 Less SOB today; refuses meds at times. On low flow oxygen delivery Monitor: AFIb with frequent episodes of RVR and nonsustained VTach. Poor oral intake D/W RN - urine output poor; labs reveal worsening renal function. Elevated K+ yesterday req'd kayexalate. Lactic acid slowly resolving CXR: reveals interstial airspace disease and worsening left pleural effusion Objective Last 24 Hour Vital Signs Date Time Temp Pulse Resp B/P (MAP) Pulse Ox O2 Delivery O2 Flow Rate FiO2 05/07/20 21:00 Nasal Cannula 2.0 05/07/20 20:00 98.6 87 20 126/84 (98) 100 05/07/20 17:49 101 125/68 05/07/20 16:00 101 05/07/20 16:00 97.7 89 22 125/68 (87) 96 05/07/20 12:00 108 05/07/20 12:00 97.9 105 20 138/72 (94) 95 05/07/20 09:00 Nasal Cannula 2.0 05/07/20 08:27 132 132/69 05/07/20 08:00 97.5 132 22 132/69 (90) 95 05/07/20 08:00 123 05/07/20 04:00 97.0 84 24 129/66 (87) 94 05/07/20 04:00 94 ROS: unchanged from my eval of 05/03/20 LUNGS: no accessory muscle use, expiratory wheezing, diminished breath sounds CARDIAC: normal S1 and S2, no murmur, irregularly irregular ABDOMEN: normal bowel sounds, non tender, soft, no organomegaly EXTREMITIES: no calf tenderness, trace edema Laboratory Tests Test 05/07/20 07:05 05/07/20 09:00 White Blood Count 7.3 K/UL (4.8-10.8) Red Blood Count 5.15 M/UL (4.20-5.40) Hemoglobin 14.1 G/DL (12.0-16.0) Hematocrit 45.2 % (37.0-47.0) Mean Corpuscular Volume 88 FL (80-99) Mean Corpuscular Hemoglobin 27.3 PG (27.0-31.0) Mean Corpuscular Hemoglobin Concent 31.1 G/DL (32.0-36.0) L Red Cell Distribution Width 17.7 % (11.6-14.8) H Platelet Count 261 K/UL (150-450) Mean Platelet Volume 5.5 FL (6.5-10.1) L Neutrophils (%) (Auto) 81.4 % (45.0-75.0) H Lymphocytes (%) (Auto) 5.2 % (20.0-45.0) L Monocytes (%) (Auto) 9.5 % (1.0-10.0) Eosinophils (%) (Auto) 0.0 % (0.0-3.0) Basophils (%) (Auto) 3.9 % (0.0-2.0) H Sodium Level 133 MMOL/L (136-145) L Potassium Level 4.0 MMOL/L (3.5-5.1) Chloride Level 96 MMOL/L (98-107) L Carbon Dioxide Level 24 MMOL/L (21-32) Anion Gap 13 mmol/L (5-15) Blood Urea Nitrogen 60 mg/dL (7-18) H Creatinine 3.1 MG/DL (0.55-1.30) H Estimat Glomerular Filtration Rate 17.6 mL/min (>60) Glucose Level 152 MG/DL (74-106) H Lactic Acid Level 2.00 mmol/L (0.4-2.0) Calcium Level 9.0 MG/DL (8.5-10.1) Total Bilirubin 0.6 MG/DL (0.2-1.0) Aspartate Amino Transf (AST/SGOT) 81 U/L (15-37) H Alanine Aminotransferase (ALT/SGPT) 148 U/L (12-78) H Alkaline Phosphatase 259 U/L (46-116) H C-Reactive Protein, Quantitative 2.4 mg/dL (0.00-0.90) H Total Protein 7.4 G/DL (6.4-8.2) Albumin 2.7 G/DL (3.4-5.0) L Globulin 4.7 g/dL Albumin/Globulin Ratio 0.6 (1.0-2.7) L Amylase Level 57 U/L (25-115) Lipase 69 U/L (73-393) L Erythrocyte Sedimentation Rate 32 MM/HR (0-30) H Assessment/Plan Assessment/Plan COPD exacerb with active bronchospasm Lactic acidosis resolving COVID 19 PNA Acute on chr renal failure - now with hyperkalemia Chronic systolic/diastolic CHF Pulmonary fibrosis with chronic hypoxia Paroxysmal AFib with RVR Hx Multifocal atrial arrhythmias Pulmonary HTN - severe Hx NSVTach Acute myocardial ischemia Worsening left pleural effusion Maintain diltiazem - titrate Steroids per pulmonary Inhaled bronchodilators IVF continued Kayexalate as needed for elevated K+ No diuresis at present Full anticoagulation for cardioembolic prophyl Isolation Anti-viral rx per ID Consider thorocentesis Simone Perez MD May 08, 2020 01:25
[2020-05-08 04:00] VITALS: BP 138/67
[2020-05-08 06:35] LABS: BASOPHILS % (AUTO) 3.4 % (0.0-2.0); HEMATOCRIT 44.5 % (37.0-47.0); LYMPHOCYTES % (AUTO) 3.8 % (20.0-45.0); MEAN CORPUSCULAR VOLUME 88 FL (80-99); MONOCYTES % (AUTO) 8.8 % (1.0-10.0); NEUTROPHILS % (AUTO) 83.9 % (45.0-75.0); PLATELET COUNT 313 K/UL (150-450); RED BLOOD COUNT 5.07 M/UL (4.20-5.40); RED CELL DISTRIBUTION WIDTH 18.5 % (11.6-14.8); WHITE BLOOD COUNT 9.2 K/UL (4.8-10.8)
[2020-05-08 07:18] LABS: ALBUMIN 2.8 G/DL (3.4-5.0); ALBUMIN/GLOBULIN RATIO 0.6 (1.0-2.7); BILIRUBIN,TOTAL 0.7 MG/DL (0.2-1.0); CALCIUM 9.2 MG/DL (8.5-10.1); CREATININE 3.2 MG/DL (0.55-1.30)
--- NOTE | 2020-05-08 07:41 | NUR ---
NURSE HAND-OFF REPORT: Important Events on Shift: Pt repeatedly tired to get out of bed. Pt educated on safety precaution and to use the call light when assistance is needed. Pt verbalized understanding, but reinforcement needed. Patient Status: Stable Diet: Pending Orders: None Pending Results/Labs: CMP, BMP, CRP, CBC, lactic, sed rate Pending MD notification: None Latest Vital Signs: Temperature 98.8 , Pulse 88 , B/P 138 /67 , Respiratory Rate 22 , O2 SAT 95 , Nasal Cannula, O2 Flow Rate 2.0 . Vital Sign Comment: Stable EKG Rhythm: Atrial Fibrillation Rhythm change?: N MD Notified?: Tracy Doe MD Response: No New Orders Received Latest Lechuga Fall Score: 45 Fall Risk: High Risk Safety Measures: Call light Within Reach, Bed Alarm Zone 1, Side Rails Side Rails x2, Bed position Low and Locked. Fall Precautions: Yellow Socks YES Yellow Gown YES Door Sign YES Patient Fall Education YES Report given to VIPUL Cosme RN
--- NOTE | 2020-05-08 07:55 | NUR ---
NURSE NOTES: Received report from Earlene Katz RN. Patient sitting up in bed, on 2 liters nasal cannula, watching television, eating breakfast, bed in lowest position, call light within reach, in no apparent distress.
[2020-05-08 08:00] VITALS: BP 127/64
--- NOTE | 2020-05-08 08:23 | Pulmonology Progress Note ---
Subjective ROS Limited/Unobtainable: No Constitutional: Reports: anorexia Gastrointestinal/Abdominal: Reports: no symptoms Musculoskeletal: Denies: pain Allergies: Coded Allergies: CIPROFLOXACIN (Verified Allergy, Unknown, 09/27/17) All Systems: reviewed and negative except above Subjective on isolation care noted and reviewed ID noted intermittent tachy Objective Last 24 Hour Vital Signs Date Time Temp Pulse Resp B/P (MAP) Pulse Ox O2 Delivery O2 Flow Rate FiO2 05/08/20 08:00 97.3 88 24 127/64 (85) 94 05/08/20 04:00 91 05/08/20 04:00 98.8 88 22 138/67 (90) 95 05/08/20 00:00 121 05/08/20 00:00 97.8 78 24 117/54 (75) 92 05/07/20 21:00 Nasal Cannula 2.0 05/07/20 20:25 101 05/07/20 20:00 111 05/07/20 20:00 98.6 87 20 126/84 (98) 100 05/07/20 17:49 101 125/68 05/07/20 16:00 101 05/07/20 16:00 97.7 89 22 125/68 (87) 96 05/07/20 12:00 108 05/07/20 12:00 97.9 105 20 138/72 (94) 95 05/07/20 09:00 Nasal Cannula 2.0 05/07/20 08:27 132 132/69 Intake and Output 05/07/20 05/08/20 19:00 07:00 Intake Total 495 ml 300 ml Output Total 200 ml Balance 295 ml 300 ml Intake Oral 120 ml 300 ml IV Total 375 ml Output Urine Total 200 ml # Voids 1 3 Objective deferred due to COVID Laboratory Tests 05/07/20 09:00: Erythrocyte Sedimentation Rate 32H 05/08/20 06:15: White Blood Count 9.2, Red Blood Count 5.07, Hemoglobin 14.0, Hematocrit 44.5, Mean Corpuscular Volume 88, Mean Corpuscular Hemoglobin 27.5, Mean Corpuscular Hemoglobin Concent 31.4L, Red Cell Distribution Width 18.5H, Platelet Count 313 , Mean Platelet Volume 5.2L, Neutrophils (%) (Auto) 83.9H, Lymphocytes (%) (Auto ) 3.8L, Monocytes (%) (Auto) 8.8, Eosinophils (%) (Auto) 0.0, Basophils (%) ( Auto) 3.4H, Sodium Level 133L, Potassium Level 4.0, Chloride Level 96L, Carbon Dioxide Level 26, Anion Gap 11, Blood Urea Nitrogen 62H, Creatinine 3.2H, Estimat Glomerular Filtration Rate 16.8, Glucose Level 164H, Calcium Level 9.2, Total Bilirubin 0.7, Aspartate Amino Transf (AST/SGOT) 48H, Alanine Aminotransferase (ALT/SGPT) 128H, Alkaline Phosphatase 244H, Total Protein 7.5, Albumin 2.8L, Globulin 4.7, Albumin/Globulin Ratio 0.6L Current Medications Medications (Trade) Dose Ordered Sig/Ghislaine Route PRN Reason Start Time Stop Time Status Last Admin Dose Admin Acetaminophen (Tylenol) 500 mg Q4H PRN ORAL Mild Pain (Pain Scale 1-3) 05/03/20 10:45 06/02/20 10:44 Albuterol Sulfate (Proventil MDI) 2 puff Q4H PRN INH Shortness of Breath 05/03/20 09:00 08/01/20 08:59 05/07/20 17:49 Apixaban (Eliquis) 2.5 mg BID ORAL 05/03/20 18:00 08/01/20 17:59 05/07/20 17:49 Aspirin (Ecotrin) 81 mg DAILY ORAL 05/03/20 16:00 06/17/20 15:59 05/05/20 08:42 Diltiazem HCl (Cardizem CD) 180 mg BID ORAL 05/07/20 09:00 06/06/20 08:59 05/07/20 17:49 Methylprednisolone Sodium Succinate (Solu-MEDROL) 60 mg DAILY IVP 05/08/20 09:00 08/06/20 08:59 Pantoprazole (Protonix) 40 mg DAILY ORAL 05/03/20 16:00 06/02/20 15:59 05/07/20 08:27 Salmeterol Xinafoate/ Fluticasone (Advair 100/50 Diskus) 1 puffs TWICE A DAY INH 05/03/20 18:00 08/01/20 17:59 05/07/20 17:50 Sodium Chloride 1,000 ml @ 75 mls/hr [id number] IV 05/07/20 13:47 06/06/20 13:46 05/08/20 03:21 Assessment/Plan Assessment/Plan Impression: COVID-19 Chronic obstructive pulmonary disease/Asthma Community acquired pneumonia Atrial fibrillation with RVR Elevated troponin Congestive heart Failure sinus tachycardia Hypoxemia transaminitis consider cholecystitis acute on chronic renal failure Plan Continue IV Antibiotics per iD IV Steroids per ID Bronchodilator therapy O2 PRN Eliquis and monitor HH Monitor labs/ will call renal Covid 19 Isolation- repeat swab reviewed care and optimize pending HIDA monitor cxr and oxygen needs- watch effusion guarded impression, plan, and exam edited and reviewed in detail care discussed with Aaron Bales MD May 08, 2020 08:23
[2020-05-08] MEDS: Solu-MEDROL 125mg Inj IVP SCH (09:43)
[2020-05-08] MEDS: dilTIAZem HCl ER 180mg cap ORAL SCH ×2 (09:43→16:53)
[2020-05-08] MEDS: Aspirin EC 81mg tab ORAL SCH (09:44)
[2020-05-08] MEDS: Eliquis 2.5mg tablet ORAL SCH ×2 (09:44→16:53)
[2020-05-08] MEDS: Wixela 100/50 Inhaler - 60 dose INH SCH ×2 (09:45→16:54)
--- NOTE | 2020-05-08 10:30 | Infectious Diseases Prog Note ---
Assessment/Plan Assessment/Plan antibiotics : none A 1. COVID 19 pneumonia on 2 liters O2, saturation 94 percent s/p ivermectin 9.7.20 2. renal failure 3. increased LFT 4. COPD 5. CHF 6. asthma 7. r/o cholecystitis P 1. continue solumedrol 2. will follow up cultures 3. HIDA scan pending Subjective Constitutional: Denies: fever, chills Respiratory: Reports: shortness of breath; Denies: dry cough Gastrointestinal/Abdominal: Denies: nausea, vomiting, diarrhea Musculoskeletal: Denies: pain Allergies: Coded Allergies: CIPROFLOXACIN (Verified Allergy, Unknown, 09/27/17) Objective Last 24 Hour Vital Signs Date Time Temp Pulse Resp B/P (MAP) Pulse Ox O2 Delivery O2 Flow Rate FiO2 05/08/20 09:43 88 127/64 05/08/20 08:00 97.3 88 24 127/64 (85) 94 05/08/20 04:00 91 05/08/20 04:00 98.8 88 22 138/67 (90) 95 05/08/20 00:00 121 05/08/20 00:00 97.8 78 24 117/54 (75) 92 05/07/20 21:00 Nasal Cannula 2.0 05/07/20 20:25 101 05/07/20 20:00 111 05/07/20 20:00 98.6 87 20 126/84 (98) 100 05/07/20 17:49 101 125/68 05/07/20 16:00 101 05/07/20 16:00 97.7 89 22 125/68 (87) 96 05/07/20 12:00 108 05/07/20 12:00 97.9 105 20 138/72 (94) 95 Height (Feet): 5 Height (Inches): 3.00 Weight (Pounds): 160 Laboratory Tests Test 05/08/20 06:15 White Blood Count 9.2 K/UL (4.8-10.8) Red Blood Count 5.07 M/UL (4.20-5.40) Hemoglobin 14.0 G/DL (12.0-16.0) Hematocrit 44.5 % (37.0-47.0) Mean Corpuscular Volume 88 FL (80-99) Mean Corpuscular Hemoglobin 27.5 PG (27.0-31.0) Mean Corpuscular Hemoglobin Concent 31.4 G/DL (32.0-36.0) L Red Cell Distribution Width 18.5 % (11.6-14.8) H Platelet Count 313 K/UL (150-450) Mean Platelet Volume 5.2 FL (6.5-10.1) L Neutrophils (%) (Auto) 83.9 % (45.0-75.0) H Lymphocytes (%) (Auto) 3.8 % (20.0-45.0) L Monocytes (%) (Auto) 8.8 % (1.0-10.0) Eosinophils (%) (Auto) 0.0 % (0.0-3.0) Basophils (%) (Auto) 3.4 % (0.0-2.0) H Sodium Level 133 MMOL/L (136-145) L Potassium Level 4.0 MMOL/L (3.5-5.1) Chloride Level 96 MMOL/L (98-107) L Carbon Dioxide Level 26 MMOL/L (21-32) Anion Gap 11 mmol/L (5-15) Blood Urea Nitrogen 62 mg/dL (7-18) H Creatinine 3.2 MG/DL (0.55-1.30) H Estimat Glomerular Filtration Rate 16.8 mL/min (>60) Glucose Level 164 MG/DL (74-106) H Calcium Level 9.2 MG/DL (8.5-10.1) Total Bilirubin 0.7 MG/DL (0.2-1.0) Aspartate Amino Transf (AST/SGOT) 48 U/L (15-37) H Alanine Aminotransferase (ALT/SGPT) 128 U/L (12-78) H Alkaline Phosphatase 244 U/L (46-116) H Total Protein 7.5 G/DL (6.4-8.2) Albumin 2.8 G/DL (3.4-5.0) L Globulin 4.7 g/dL Albumin/Globulin Ratio 0.6 (1.0-2.7) L Current Medications Medications (Trade) Dose Ordered Sig/Ghislaine Route PRN Reason Start Time Stop Time Status Last Admin Dose Admin Acetaminophen (Tylenol) 500 mg Q4H PRN ORAL Mild Pain (Pain Scale 1-3) 05/03/20 10:45 06/02/20 10:44 Albuterol Sulfate (Proventil MDI) 2 puff Q4H PRN INH Shortness of Breath 05/03/20 09:00 08/01/20 08:59 05/07/20 17:49 Apixaban (Eliquis) 2.5 mg BID ORAL 05/03/20 18:00 08/01/20 17:59 05/08/20 09:44 Aspirin (Ecotrin) 81 mg DAILY ORAL 05/03/20 16:00 06/17/20 15:59 05/08/20 09:44 Diltiazem HCl (Cardizem CD) 180 mg BID ORAL 05/07/20 09:00 06/06/20 08:59 05/08/20 09:43 Methylprednisolone Sodium Succinate (Solu-MEDROL) 60 mg DAILY IVP 05/08/20 09:00 08/06/20 08:59 05/08/20 09:43 Pantoprazole (Protonix) 40 mg DAILY ORAL 05/03/20 16:00 06/02/20 15:59 05/08/20 09:43 Salmeterol Xinafoate/ Fluticasone (Advair 100/50 Diskus) 1 puffs TWICE A DAY INH 05/03/20 18:00 08/01/20 17:59 05/08/20 09:45 Sodium Chloride 1,000 ml @ 75 mls/hr [id number] IV 05/07/20 13:47 06/06/20 13:46 05/08/20 03:21 Camilo Cameron MD May 08, 2020 10:30
[2020-05-08] MEDS ORDERED: 1/2 NS 1000ml IV ONE (11:06)
--- NOTE | 2020-05-08 11:34 | General Progress Note ---
Assessment/Plan Problem List: (1) Pulmonary fibrosis ICD Codes: J84.10 - Pulmonary fibrosis, unspecified SNOMED: 45671500 (2) History of asthma ICD Codes: Z87.09 - Personal history of other diseases of the respiratory system SNOMED: 370049760 (3) Asthma ICD Codes: J45.909 - Unspecified asthma, uncomplicated SNOMED: 364728145 (4) NSTEMI (non-ST elevated myocardial infarction) ICD Codes: I21.4 - Non-ST elevation (NSTEMI) myocardial infarction SNOMED: 580545200 (5) Elevated troponin ICD Codes: R79.89 - Other specified abnormal findings of blood chemistry SNOMED: 893439271, 844469618, 468721949 (6) COPD (chronic obstructive pulmonary disease) ICD Codes: J44.9 - Chronic obstructive pulmonary disease, unspecified SNOMED: 47127900 (7) Atrial fibrillation with RVR ICD Codes: I48.91 - Unspecified atrial fibrillation SNOMED: 050979131681129 (8) Community acquired pneumonia ICD Codes: J18.9 - Pneumonia, unspecified organism SNOMED: 578095726 Status: stable Assessment/Plan: cont current rx wean iv steroids ivf- decreased monitor cxr resp rx/mdi monitor renal fxn hida scan dw/ dtr itzel. compliance stressed. Subjective ROS Limited/Unobtainable: No Constitutional: Reports: weakness HEENT: Reports: no symptoms Cardiovascular: Reports: no symptoms Respiratory: Reports: cough, shortness of breath Gastrointestinal/Abdominal: Reports: no symptoms Genitourinary: Reports: no symptoms Neurologic/Psychiatric: Reports: no symptoms Endocrine: Reports: no symptoms Hematologic/Lymphatic: Reports: no symptoms Allergies: Coded Allergies: CIPROFLOXACIN (Verified Allergy, Unknown, 09/27/17) All Systems: reviewed and negative except above Subjective better today. HR better controlled. compliant with meds. d/w dtr. on iv steroids. s/p ivermectin Objective Last 24 Hour Vital Signs Date Time Temp Pulse Resp B/P (MAP) Pulse Ox O2 Delivery O2 Flow Rate FiO2 05/08/20 09:43 88 127/64 05/08/20 09:00 Nasal Cannula 2.0 Nasal Cannula 2.0 05/08/20 08:00 97.3 88 24 127/64 (85) 94 05/08/20 08:00 95 05/08/20 04:00 91 05/08/20 04:00 98.8 88 22 138/67 (90) 95 05/08/20 00:00 121 05/08/20 00:00 97.8 78 24 117/54 (75) 92 05/07/20 21:00 Nasal Cannula 2.0 05/07/20 20:25 101 05/07/20 20:00 111 05/07/20 20:00 98.6 87 20 126/84 (98) 100 05/07/20 17:49 101 125/68 05/07/20 16:00 101 05/07/20 16:00 97.7 89 22 125/68 (87) 96 05/07/20 12:00 108 05/07/20 12:00 97.9 105 20 138/72 (94) 95 Intake and Output 05/07/20 05/08/20 19:00 07:00 Intake Total 495 ml 300 ml Output Total 200 ml Balance 295 ml 300 ml Intake Oral 120 ml 300 ml IV Total 375 ml Output Urine Total 200 ml # Voids 1 3 Laboratory Tests 05/08/20 06:15: White Blood Count 9.2, Red Blood Count 5.07, Hemoglobin 14.0, Hematocrit 44.5, Mean Corpuscular Volume 88, Mean Corpuscular Hemoglobin 27.5, Mean Corpuscular Hemoglobin Concent 31.4L, Red Cell Distribution Width 18.5H, Platelet Count 313 , Mean Platelet Volume 5.2L, Neutrophils (%) (Auto) 83.9H, Lymphocytes (%) (Auto ) 3.8L, Monocytes (%) (Auto) 8.8, Eosinophils (%) (Auto) 0.0, Basophils (%) ( Auto) 3.4H, Sodium Level 133L, Potassium Level 4.0, Chloride Level 96L, Carbon Dioxide Level 26, Anion Gap 11, Blood Urea Nitrogen 62H, Creatinine 3.2H, Estimat Glomerular Filtration Rate 16.8, Glucose Level 164H, Calcium Level 9.2, Total Bilirubin 0.7, Aspartate Amino Transf (AST/SGOT) 48H, Alanine Aminotransferase (ALT/SGPT) 128H, Alkaline Phosphatase 244H, Total Protein 7.5, Albumin 2.8L, Globulin 4.7, Albumin/Globulin Ratio 0.6L Height (Feet): 5 Height (Inches): 3.00 Weight (Pounds): 160 Objective General Appearance: WD/WN, no apparent distress, alert EENT: PERRL/EOMI Neck: non-tender, normal alignment, supple Cardiovascular: normal rate, regular rhythm Respiratory/Chest: chest wall non-tender, lungs clear, normal breath sounds, no respiratory distress, no accessory muscle use Abdomen: normal bowel sounds, non tender, soft, no organomegaly Edema: no edema noted Arm (L), no edema noted Arm (R) Neurologic: assessment nurse II-XII grossly normal, alert, oriented x 3, responsive Skin: normal pigmentation Lymphatic: normal anterior cervical (L), normal anterior cervical (R) Bradford Linn MD May 08, 2020 11:34
[2020-05-08 12:00] VITALS: BP 113/52
--- NOTE | 2020-05-08 14:24 | Surgery Progress Note ---
Surgery Progress Note Subjective Symptoms: improved, tolerating diet, passing flatus, BM Objective Last 24 Hour Vital Signs Date Time Temp Pulse Resp B/P (MAP) Pulse Ox O2 Delivery O2 Flow Rate FiO2 05/08/20 12:00 80 05/08/20 12:00 97.9 69 22 113/52 (72) 98 05/08/20 09:43 88 127/64 05/08/20 09:00 Nasal Cannula 2.0 Nasal Cannula 2.0 05/08/20 08:00 97.3 88 24 127/64 (85) 94 05/08/20 08:00 95 05/08/20 04:00 91 05/08/20 04:00 98.8 88 22 138/67 (90) 95 05/08/20 00:00 121 05/08/20 00:00 97.8 78 24 117/54 (75) 92 05/07/20 21:00 Nasal Cannula 2.0 05/07/20 20:25 101 05/07/20 20:00 111 05/07/20 20:00 98.6 87 20 126/84 (98) 100 05/07/20 17:49 101 125/68 05/07/20 16:00 101 05/07/20 16:00 97.7 89 22 125/68 (87) 96 I&O Intake and Output 05/07/20 05/08/20 19:00 07:00 Intake Total 495 ml 300 ml Output Total 200 ml Balance 295 ml 300 ml Intake Oral 120 ml 300 ml IV Total 375 ml Output Urine Total 200 ml # Voids 1 3 Dressing: saturated Cardiovascular: RSR Respiratory: decreased breath sounds Abdomen: soft, non-tender, present bowel sounds Extremities: no tenderness, no cyanosis Laboratory Tests Test 05/08/20 06:15 White Blood Count 9.2 K/UL (4.8-10.8) Red Blood Count 5.07 M/UL (4.20-5.40) Hemoglobin 14.0 G/DL (12.0-16.0) Hematocrit 44.5 % (37.0-47.0) Mean Corpuscular Volume 88 FL (80-99) Mean Corpuscular Hemoglobin 27.5 PG (27.0-31.0) Mean Corpuscular Hemoglobin Concent 31.4 G/DL (32.0-36.0) L Red Cell Distribution Width 18.5 % (11.6-14.8) H Platelet Count 313 K/UL (150-450) Mean Platelet Volume 5.2 FL (6.5-10.1) L Neutrophils (%) (Auto) 83.9 % (45.0-75.0) H Lymphocytes (%) (Auto) 3.8 % (20.0-45.0) L Monocytes (%) (Auto) 8.8 % (1.0-10.0) Eosinophils (%) (Auto) 0.0 % (0.0-3.0) Basophils (%) (Auto) 3.4 % (0.0-2.0) H Sodium Level 133 MMOL/L (136-145) L Potassium Level 4.0 MMOL/L (3.5-5.1) Chloride Level 96 MMOL/L (98-107) L Carbon Dioxide Level 26 MMOL/L (21-32) Anion Gap 11 mmol/L (5-15) Blood Urea Nitrogen 62 mg/dL (7-18) H Creatinine 3.2 MG/DL (0.55-1.30) H Estimat Glomerular Filtration Rate 16.8 mL/min (>60) Glucose Level 164 MG/DL (74-106) H Calcium Level 9.2 MG/DL (8.5-10.1) Total Bilirubin 0.7 MG/DL (0.2-1.0) Aspartate Amino Transf (AST/SGOT) 48 U/L (15-37) H Alanine Aminotransferase (ALT/SGPT) 128 U/L (12-78) H Alkaline Phosphatase 244 U/L (46-116) H Total Protein 7.5 G/DL (6.4-8.2) Albumin 2.8 G/DL (3.4-5.0) L Globulin 4.7 g/dL Albumin/Globulin Ratio 0.6 (1.0-2.7) L Plan Problems: (1) Elevated troponin (2) Atrial fibrillation with RVR (3) COVID-19 Assessment & Plan: ++ as per pulm and ID (4) Community acquired pneumonia (5) COPD (chronic obstructive pulmonary disease) (6) Pulmonary fibrosis (7) Asthma (8) History of asthma (9) NSTEMI (non-ST elevated myocardial infarction) (10) Moderate to severe pulmonary hypertension (11) Asthma exacerbation (12) Abnormal LFTs Assessment & Plan: afebrile, HD stable labs noted lft's elevated US reviewed exam benign gb likely reactive from underlying pathology unlikely cholecystitis clinically fluid overload trend labs will monitor exam clinically Gallbladder demonstrates wall thickening and wall edema, gallbladder wall measuring up to 6 mm thick. There are gallstones. Sonographic Escoto's sign is negative. Common bile duct measures 3 mm in diameter. No intrahepatic biliary ductal dilatation. Liver demonstrates normal echogenicity, no focal abnormality. Portal vein and hepatic veins are patent. Pancreas is unremarkable. Spleen is unremarkable. Left kidney measures 9.2 cm in length. Right kidney measures 9.9 cm length. Both kidneys demonstrate normal echogenicity. There is no hydronephrosis. Small cyst is seen in the right kidney. . Abdominal aorta was not imaged . There is trace ascites. There is a small right pleural effusion incidentally noted Impression: Small right pleural effusion. Trace ascites Cholelithiasis. Gallbladder wall thickening may be related to hemodynamic factors causing the pleural fluid and ascites, but could also indicate acute cholecystitis. Consider nuclear medicine hepatobiliary scan if there is high clinical suspicion. Negative for dilated bile ducts Small right renal cyst incidentally noted (13) Acute respiratory failure with hypoxia Quentin Sanchez May 08, 2020 14:23
[2020-05-08 16:00] VITALS: BP 113/62
--- NOTE | 2020-05-08 16:49 | NUR ---
CASE MANAGEMENT:REVIEW 05/08/20 SI: NSTEMI. COVID PNA 97.5 78 22 113/62 96% ON 2L/NC NA-133 BUN+62 CR+3.2 IS: IV SOLUMEDROL QD IVF@75/HR CARDIZEM PO BID ELIQUIS PO BID ASA PO QD : TELEMETRY
--- NOTE | 2020-05-08 18:50 | NUR ---
NURSE HAND-OFF REPORT: Important Events on Shift:Patient has been in chair for good portion of the day. No coughing, afebrile, afib/afib with PVC baseline. Patient Status: Stable Diet: Cardiac. Patient is eating about 1/4 of her meals. Pending Orders: N/A Pending Results/Labs:N/A Pending MD notification:N/A Latest Vital Signs: Temperature 97.5 , Pulse 78 , B/P 113 /62 , Respiratory Rate 22 , O2 SAT 96 , Nasal Cannula, O2 Flow Rate 2.0 . Vital Sign Comment: N/A EKG Rhythm: Atrial Fibrillation Rhythm change?: Krishna MCCRACKEN Notified?: Tracy Doe MD Response: No New Orders Received Latest Lechuga Fall Score: 45 Fall Risk: High Risk Safety Measures: Call light Within Reach, Bed Alarm Zone 1, Side Rails Side Rails x2, Bed position Low and Locked. Fall Precautions: Yellow Socks Yellow Gown Door Sign Patient Fall Education Report given to oncoming staff. Addendum: 05/08/20 at 1909 by MELLISA NARVAEZ RN Report given to Karen Casey RN.
--- NOTE | 2020-05-08 19:35 | NUR ---
NURSE NOTES: RECEIVED REPORT FROM DAMIAN MATTHEW. PATIENT UP IN CHAIR, AAOX3-4, VERBALLY RESPONSIVE AND ABLE TO MAKE NEEDS KNOWN. ASSISTED BACK TO BED VIA TWO PERSON ASSIST WITHOUT INCIDENT- NOTED TO HAVE IMPAIRED GAIT. NO COMPLAINTS OF PAIN OR DISCOMFORT. BREATHING IS EVEN AND UNLABORED ON 2LPM VIA NC, NO S/SX OF DISTRESS NOTED. IV SITE ON RAC PATENT, INTACT, ASYMPTOMATIC WITH 1/2 NS RUNNING AT 75 ML/HR. SEEN WITH OPTIFOAM OVER BILATERAL HEELS. PUREWICK IN PLACE, DRAINING WELL TO WALL SUCTION. FALL PRECAUTIONS IN PLACE. CONTACT AND DROPLET PRECAUTIONS IMPLEMENTED. BED LOCKED AND IN LOWEST POSITION, SIDERAILS UP X 2, BED ALARM ACTIVATED. CALL LIGHT WITHIN REACH, WILL CONTINUE TO MONITOR FOR ANY CHANGES.
[2020-05-08 20:00] VITALS: BP 111/60
[2020-05-09] VITALS (8 sets, daily range): BP systolic 107–142; BP diastolic 54–65
--- NOTE | 2020-05-09 03:06 | Cardiology Progress Note ---
Subjective DATE OF SERVICE: May 08, 2020 Still SOB today. On low flow oxygen delivery Monitor: AFIb with frequent episodes of RVR and nonsustained VTach. Poor oral intake D/W RN - urine output poor; labs reveal worsening renal function. Lactic acid slowly resolving CXR: reveals interstial airspace disease and worsening left pleural effusion Objective Last 24 Hour Vital Signs Date Time Temp Pulse Resp B/P (MAP) Pulse Ox O2 Delivery O2 Flow Rate FiO2 05/09/20 00:00 98.7 76 18 116/64 (81) 97 05/09/20 00:00 82 05/08/20 21:00 Nasal Cannula 2.0 Nasal Cannula 2.0 05/08/20 20:00 98.9 72 20 111/60 (77) 97 05/08/20 20:00 76 05/08/20 16:53 78 113/62 05/08/20 16:00 97.5 78 22 113/62 (79) 96 05/08/20 16:00 77 05/08/20 12:00 80 05/08/20 12:00 97.9 69 22 113/52 (72) 98 05/08/20 09:43 88 127/64 05/08/20 09:00 Nasal Cannula 2.0 Nasal Cannula 2.0 05/08/20 08:00 97.3 88 24 127/64 (85) 94 05/08/20 08:00 95 05/08/20 04:00 91 05/08/20 04:00 98.8 88 22 138/67 (90) 95 ROS: unchanged from my eval of 05/03/20 LUNGS: no accessory muscle use, expiratory wheezing, diminished breath sounds CARDIAC: normal S1 and S2, no murmur, irregularly irregular ABDOMEN: normal bowel sounds, non tender, soft, no organomegaly EXTREMITIES: no calf tenderness, trace edema Laboratory Tests Test 05/08/20 06:15 White Blood Count 9.2 K/UL (4.8-10.8) Red Blood Count 5.07 M/UL (4.20-5.40) Hemoglobin 14.0 G/DL (12.0-16.0) Hematocrit 44.5 % (37.0-47.0) Mean Corpuscular Volume 88 FL (80-99) Mean Corpuscular Hemoglobin 27.5 PG (27.0-31.0) Mean Corpuscular Hemoglobin Concent 31.4 G/DL (32.0-36.0) L Red Cell Distribution Width 18.5 % (11.6-14.8) H Platelet Count 313 K/UL (150-450) Mean Platelet Volume 5.2 FL (6.5-10.1) L Neutrophils (%) (Auto) 83.9 % (45.0-75.0) H Lymphocytes (%) (Auto) 3.8 % (20.0-45.0) L Monocytes (%) (Auto) 8.8 % (1.0-10.0) Eosinophils (%) (Auto) 0.0 % (0.0-3.0) Basophils (%) (Auto) 3.4 % (0.0-2.0) H Sodium Level 133 MMOL/L (136-145) L Potassium Level 4.0 MMOL/L (3.5-5.1) Chloride Level 96 MMOL/L (98-107) L Carbon Dioxide Level 26 MMOL/L (21-32) Anion Gap 11 mmol/L (5-15) Blood Urea Nitrogen 62 mg/dL (7-18) H Creatinine 3.2 MG/DL (0.55-1.30) H Estimat Glomerular Filtration Rate 16.8 mL/min (>60) Glucose Level 164 MG/DL (74-106) H Calcium Level 9.2 MG/DL (8.5-10.1) Total Bilirubin 0.7 MG/DL (0.2-1.0) Aspartate Amino Transf (AST/SGOT) 48 U/L (15-37) H Alanine Aminotransferase (ALT/SGPT) 128 U/L (12-78) H Alkaline Phosphatase 244 U/L (46-116) H Total Protein 7.5 G/DL (6.4-8.2) Albumin 2.8 G/DL (3.4-5.0) L Globulin 4.7 g/dL Albumin/Globulin Ratio 0.6 (1.0-2.7) L Assessment/Plan Assessment/Plan COPD exacerb with active bronchospasm Lactic acidosis resolving COVID 19 PNA Acute on chr renal failure - now with hyperkalemia Chronic systolic/diastolic CHF Pulmonary fibrosis with chronic hypoxia Paroxysmal AFib with RVR Hx Multifocal atrial arrhythmias Pulmonary HTN - severe Hx NSVTach Acute myocardial ischemia Worsening left pleural effusion Maintain diltiazem - titrate Steroids per pulmonary Inhaled bronchodilators IVF continued Kayexalate as needed for elevated K+ No diuresis at present Full anticoagulation for cardioembolic prophyl Isolation Anti-viral rx per ID Consider thorocentesis Simone Perez MD May 09, 2020 03:06
--- NOTE | 2020-05-09 07:25 | NUR ---
NURSE HAND-OFF REPORT: Important Events on Shift: REFUSAL OF OPTIFOAM TO [facility] Patient Status: STABLE Diet: CARDIAC Pending Orders: N/A Pending Results/Labs: 912 AM LABS Pending MD notification: N/A Latest Vital Signs: Temperature 98.6 , Pulse 84 , B/P 131 /54 , Respiratory Rate 20 , O2 SAT 96 , Nasal Cannula, O2 Flow Rate 2.0 . Vital Sign Comment: STABLE EKG Rhythm: Atrial Fibrillation Rhythm change?: N Notified?: Tracy Doe MD Response: No New Orders Received Latest Lechuga Fall Score: 45 Fall Risk: High Risk Safety Measures: Call light Within Reach, Bed Alarm Zone 1, Side Rails Side Rails x2, Bed position Low and Locked. Fall Precautions: Yellow Socks Yellow Gown Door Sign Patient Fall Education Report given to DAMIAN ESCOBAR.
--- NOTE | 2020-05-09 08:00 | NUR ---
NURSE NOTES: Received report from DAMIAN Jones. AOx2.Pt is forgetful. pt is sitting up in chair bedside and stable. on 3LMP NC saturating well, no complaints or s/s of distress at this time. Pt R IV 18g running 1/2 NS at 75 cc, asymptomatic and intact. Pt bilateral lower edema +1, edema around ankle to foot bilaterally 2+. Bed alarm on, call light in reach, bed low and locked, and yellow socks/ yellow gown on. Pt instructed to call for help, verbalized understanding.
[2020-05-09 08:01] LABS: HEMATOCRIT 43.7 % (37.0-47.0); HEMOGLOBIN 13.7 G/DL (12.0-16.0); MEAN CORPUSCULAR VOLUME 88 FL (80-99); PLATELET COUNT 308 K/UL (150-450); RED BLOOD COUNT 4.98 M/UL (4.20-5.40); RED CELL DISTRIBUTION WIDTH 18.7 % (11.6-14.8)
--- NOTE | 2020-05-09 09:14 | General Progress Note ---
Assessment/Plan Problem List: (1) Pulmonary fibrosis ICD Codes: J84.10 - Pulmonary fibrosis, unspecified SNOMED: 88959333 (2) History of asthma ICD Codes: Z87.09 - Personal history of other diseases of the respiratory system SNOMED: 722353335 (3) Asthma ICD Codes: J45.909 - Unspecified asthma, uncomplicated SNOMED: 735311509 (4) NSTEMI (non-ST elevated myocardial infarction) ICD Codes: I21.4 - Non-ST elevation (NSTEMI) myocardial infarction SNOMED: 594272297 (5) Elevated troponin ICD Codes: R79.89 - Other specified abnormal findings of blood chemistry SNOMED: 796602105, 793485933, 574075949 (6) COPD (chronic obstructive pulmonary disease) ICD Codes: J44.9 - Chronic obstructive pulmonary disease, unspecified SNOMED: 22618127 (7) Atrial fibrillation with RVR ICD Codes: I48.91 - Unspecified atrial fibrillation SNOMED: 920551775002692 (8) Community acquired pneumonia ICD Codes: J18.9 - Pneumonia, unspecified organism SNOMED: 388496216 Status: stable Assessment/Plan: cont current rx wean iv steroids ivf as needed monitor cxr resp rx/mdi monitor renal fxn dw/ dtr itzel. compliance stressed. Subjective ROS Limited/Unobtainable: No Constitutional: Reports: malaise, weakness HEENT: Reports: no symptoms Cardiovascular: Reports: no symptoms Respiratory: Reports: cough, shortness of breath Gastrointestinal/Abdominal: Reports: no symptoms Genitourinary: Reports: no symptoms Neurologic/Psychiatric: Reports: no symptoms Endocrine: Reports: no symptoms Hematologic/Lymphatic: Reports: no symptoms Allergies: Coded Allergies: CIPROFLOXACIN (Verified Allergy, Unknown, 09/27/17) All Systems: reviewed and negative except above Subjective no complaints. compliant with rx. HR controlled. no fever or chills. minimal cough. denies sob. surgery noted- doubt cholecystitis Objective Last 24 Hour Vital Signs Date Time Temp Pulse Resp B/P (MAP) Pulse Ox O2 Delivery O2 Flow Rate FiO2 05/09/20 06:00 84 05/09/20 06:00 98.6 73 20 131/54 (79) 96 05/09/20 04:00 98.6 73 20 131/54 (79) 96 05/09/20 00:00 98.7 76 18 116/64 (81) 97 05/09/20 00:00 82 05/08/20 21:00 Nasal Cannula 2.0 Nasal Cannula 2.0 05/08/20 20:00 98.9 72 20 111/60 (77) 97 05/08/20 20:00 76 05/08/20 16:53 78 113/62 05/08/20 16:00 97.5 78 22 113/62 (79) 96 05/08/20 16:00 77 05/08/20 12:00 80 05/08/20 12:00 97.9 69 22 113/52 (72) 98 05/08/20 09:43 88 127/64 Intake and Output 05/08/20 05/09/20 19:00 07:00 Intake Total 825 ml Output Total 450 ml Balance 825 ml -450 ml IV Total 825 ml Output Urine Total 450 ml # Voids 1 # Bowel Movements 1 Laboratory Tests 05/09/20 05:45: White Blood Count 9.0, Red Blood Count 4.98, Hemoglobin 13.7, Hematocrit 43.7, Mean Corpuscular Volume 88, Mean Corpuscular Hemoglobin 27.4, Mean Corpuscular Hemoglobin Concent 31.3L, Red Cell Distribution Width 18.7H, Platelet Count 308 , Mean Platelet Volume 5.7L, Neutrophils (%) (Auto) , Lymphocytes (%) (Auto) , Monocytes (%) (Auto) , Eosinophils (%) (Auto) , Basophils (%) (Auto) , Neutrophils % (Manual) [Pending], Lymphocytes % (Manual) [Pending], Platelet Estimate [Pending], Platelet Morphology [Pending], Sodium Level [Pending], Potassium Level [Pending], Chloride Level [Pending], Carbon Dioxide Level [ Pending], Blood Urea Nitrogen [Pending], Creatinine [Pending], Estimat Glomerular Filtration Rate [Pending], Glucose Level [Pending], Calcium Level [ Pending], Total Bilirubin [Pending], Aspartate Amino Transf (AST/SGOT) [Pending] , Alanine Aminotransferase (ALT/SGPT) [Pending], Alkaline Phosphatase [Pending] , Total Protein [Pending], Albumin [Pending], Globulin [Pending] Height (Feet): 5 Height (Inches): 3.00 Weight (Pounds): 160 Objective General Appearance: WD/WN, no apparent distress, alert EENT: PERRL/EOMI Neck: non-tender, normal alignment, supple Cardiovascular: normal rate, regular rhythm Respiratory/Chest: chest wall non-tender, lungs clear, normal breath sounds, no respiratory distress, no accessory muscle use Abdomen: normal bowel sounds, non tender, soft, no organomegaly Edema: no edema noted Arm (L), no edema noted Arm (R) 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
[2020-05-09] MEDS: dilTIAZem HCl ER 180mg cap ORAL SCH ×2 (09:47→17:32)
[2020-05-09] MEDS: Solu-MEDROL 125mg Inj IVP SCH (09:47)
[2020-05-09] MEDS: Aspirin EC 81mg tab ORAL SCH (09:47)
[2020-05-09] MEDS: Eliquis 2.5mg tablet ORAL SCH ×2 (09:48→17:32)
[2020-05-09] MEDS: Wixela 100/50 Inhaler - 60 dose INH SCH ×2 (09:50→17:33)
[2020-05-09] MEDS: Albuterol 90mcg Inhaler 8gm INH PRN (09:58)
[2020-05-09 11:05] LABS: ALBUMIN 2.8 G/DL (3.4-5.0); ALBUMIN/GLOBULIN RATIO 0.6 (1.0-2.7); BILIRUBIN,TOTAL 0.6 MG/DL (0.2-1.0); CALCIUM 9.6 MG/DL (8.5-10.1); CREATININE 3.4 MG/DL (0.55-1.30); POTASSIUM 4.1 MMOL/L (3.5-5.1)
--- NOTE | 2020-05-09 11:49 | Surgery Progress Note ---
Surgery Progress Note Subjective Additional Comments lft's improving exam stable comfortable appearing no n/v Objective Last 24 Hour Vital Signs Date Time Temp Pulse Resp B/P (MAP) Pulse Ox O2 Delivery O2 Flow Rate FiO2 05/09/20 09:47 78 107/60 05/09/20 09:00 Nasal Cannula 2.0 Nasal Cannula 2.0 05/09/20 08:00 97.9 78 22 107/60 (76) 96 05/09/20 08:00 103 05/09/20 06:00 84 05/09/20 06:00 98.6 73 20 131/54 (79) 96 05/09/20 04:00 98.6 73 20 131/54 (79) 96 05/09/20 00:00 98.7 76 18 116/64 (81) 97 05/09/20 00:00 82 05/08/20 21:00 Nasal Cannula 2.0 Nasal Cannula 2.0 05/08/20 20:00 98.9 72 20 111/60 (77) 97 05/08/20 20:00 76 05/08/20 16:53 78 113/62 05/08/20 16:00 97.5 78 22 113/62 (79) 96 05/08/20 16:00 77 05/08/20 12:00 80 05/08/20 12:00 97.9 69 22 113/52 (72) 98 I&O Intake and Output 05/08/20 05/09/20 19:00 07:00 Intake Total 825 ml Output Total 450 ml Balance 825 ml -450 ml IV Total 825 ml Output Urine Total 450 ml # Voids 1 # Bowel Movements 1 Dressing: saturated Cardiovascular: RSR Respiratory: decreased breath sounds Abdomen: soft, non-tender, present bowel sounds Extremities: no edema, no tenderness, no cyanosis Laboratory Tests Test 05/09/20 05:45 05/09/20 10:15 White Blood Count 9.0 K/UL (4.8-10.8) Red Blood Count 4.98 M/UL (4.20-5.40) Hemoglobin 13.7 G/DL (12.0-16.0) Hematocrit 43.7 % (37.0-47.0) Mean Corpuscular Volume 88 FL (80-99) Mean Corpuscular Hemoglobin 27.4 PG (27.0-31.0) Mean Corpuscular Hemoglobin Concent 31.3 G/DL (32.0-36.0) L Red Cell Distribution Width 18.7 % (11.6-14.8) H Platelet Count 308 K/UL (150-450) Mean Platelet Volume 5.7 FL (6.5-10.1) L Neutrophils (%) (Auto) % (45.0-75.0) Lymphocytes (%) (Auto) % (20.0-45.0) Monocytes (%) (Auto) % (1.0-10.0) Eosinophils (%) (Auto) % (0.0-3.0) Basophils (%) (Auto) % (0.0-2.0) Differential Total Cells Counted 100 Neutrophils % (Manual) 93 % (45-75) H Lymphocytes % (Manual) 2 % (20-45) L Monocytes % (Manual) 5 % (1-10) Eosinophils % (Manual) 0 % (0-3) Basophils % (Manual) 0 % (0-2) Band Neutrophils 0 % (0-8) Nucleated Red Blood Cells 2 /100 WBC Platelet Estimate Adequate Platelet Morphology Normal Anisocytosis 2+ Sodium Level 132 MMOL/L (136-145) L Potassium Level 4.1 MMOL/L (3.5-5.1) Chloride Level 95 MMOL/L (98-107) L Carbon Dioxide Level 24 MMOL/L (21-32) Anion Gap 13 mmol/L (5-15) Blood Urea Nitrogen 67 mg/dL (7-18) H Creatinine 3.4 MG/DL (0.55-1.30) H Estimat Glomerular Filtration Rate 15.8 mL/min (>60) Glucose Level 170 MG/DL (74-106) H Calcium Level 9.6 MG/DL (8.5-10.1) Total Bilirubin 0.6 MG/DL (0.2-1.0) Aspartate Amino Transf (AST/SGOT) 31 U/L (15-37) Alanine Aminotransferase (ALT/SGPT) 109 U/L (12-78) H Alkaline Phosphatase 236 U/L (46-116) H Total Protein 7.6 G/DL (6.4-8.2) Albumin 2.8 G/DL (3.4-5.0) L Globulin 4.8 g/dL Albumin/Globulin Ratio 0.6 (1.0-2.7) L Plan Problems: (1) Elevated troponin (2) Atrial fibrillation with RVR (3) COVID-19 Assessment & Plan: ++ as per pulm and ID (4) Community acquired pneumonia (5) COPD (chronic obstructive pulmonary disease) (6) Pulmonary fibrosis (7) Asthma (8) History of asthma (9) NSTEMI (non-ST elevated myocardial infarction) (10) Moderate to severe pulmonary hypertension (11) Asthma exacerbation (12) Abnormal LFTs Assessment & Plan: afebrile, HD stable labs noted lft's elevated US reviewed exam benign gb likely reactive from underlying pathology unlikely cholecystitis clinically fluid overload trend labs will monitor exam clinically Gallbladder demonstrates wall thickening and wall edema, gallbladder wall measuring up to 6 mm thick. There are gallstones. Sonographic Escoto's sign is negative. Common bile duct measures 3 mm in diameter. No intrahepatic biliary ductal dilatation. Liver demonstrates normal echogenicity, no focal abnormality. Portal vein and hepatic veins are patent. Pancreas is unremarkable. Spleen is unremarkable. Left kidney measures 9.2 cm in length. Right kidney measures 9.9 cm length. Both kidneys demonstrate normal echogenicity. There is no hydronephrosis. Small cyst is seen in the right kidney. . Abdominal aorta was not imaged . There is trace ascites. There is a small right pleural effusion incidentally noted Impression: Small right pleural effusion. Trace ascites Cholelithiasis. Gallbladder wall thickening may be related to hemodynamic factors causing the pleural fluid and ascites, but could also indicate acute cholecystitis. Consider nuclear medicine hepatobiliary scan if there is high clinical suspicion. Negative for dilated bile ducts Small right renal cyst incidentally noted (13) Acute respiratory failure with hypoxia Quentin Sanchez May 09, 2020 11:49
--- NOTE | 2020-05-09 13:28 | Pulmonology Progress Note ---
Subjective ROS Limited/Unobtainable: No Constitutional: Denies: fever, chills Gastrointestinal/Abdominal: Denies: nausea, vomiting, diarrhea Musculoskeletal: Denies: pain Allergies: Coded Allergies: CIPROFLOXACIN (Verified Allergy, Unknown, 09/27/17) All Systems: reviewed and negative except above Subjective remains on isolation care noted and reviewed ID noted d/w daughter Objective Last 24 Hour Vital Signs Date Time Temp Pulse Resp B/P (MAP) Pulse Ox O2 Delivery O2 Flow Rate FiO2 05/09/20 12:00 97.9 81 20 142/62 (88) 96 05/09/20 12:00 87 05/09/20 09:47 78 107/60 05/09/20 09:00 Nasal Cannula 2.0 Nasal Cannula 2.0 05/09/20 08:00 97.9 78 22 107/60 (76) 96 05/09/20 08:00 103 05/09/20 06:00 84 05/09/20 06:00 98.6 73 20 131/54 (79) 96 05/09/20 04:00 98.6 73 20 131/54 (79) 96 05/09/20 00:00 98.7 76 18 116/64 (81) 97 05/09/20 00:00 82 05/08/20 21:00 Nasal Cannula 2.0 Nasal Cannula 2.0 05/08/20 20:00 98.9 72 20 111/60 (77) 97 05/08/20 20:00 76 05/08/20 16:53 78 113/62 05/08/20 16:00 97.5 78 22 113/62 (79) 96 05/08/20 16:00 77 Intake and Output 05/08/20 05/09/20 19:00 07:00 Intake Total 825 ml Output Total 450 ml Balance 825 ml -450 ml IV Total 825 ml Output Urine Total 450 ml # Voids 1 # Bowel Movements 1 Objective deferred due to COVID Laboratory Tests 05/09/20 05:45: White Blood Count 9.0, Red Blood Count 4.98, Hemoglobin 13.7, Hematocrit 43.7, Mean Corpuscular Volume 88, Mean Corpuscular Hemoglobin 27.4, Mean Corpuscular Hemoglobin Concent 31.3L, Red Cell Distribution Width 18.7H, Platelet Count 308 , Mean Platelet Volume 5.7L, Neutrophils (%) (Auto) , Lymphocytes (%) (Auto) , Monocytes (%) (Auto) , Eosinophils (%) (Auto) , Basophils (%) (Auto) , Differential Total Cells Counted 100, Neutrophils % (Manual) 93H, Lymphocytes % (Manual) 2L, Monocytes % (Manual) 5, Eosinophils % (Manual) 0, Basophils % ( Manual) 0, Band Neutrophils 0, Nucleated Red Blood Cells 2, Platelet Estimate Adequate, Platelet Morphology Normal, Anisocytosis 2+ 05/09/20 10:15: Sodium Level 132L, Potassium Level 4.1, Chloride Level 95L, Carbon Dioxide Level 24, Anion Gap 13, Blood Urea Nitrogen 67H, Creatinine 3.4H, Estimat Glomerular Filtration Rate 15.8, Glucose Level 170H, Calcium Level 9.6, Total Bilirubin 0.6, Aspartate Amino Transf (AST/SGOT) 31, Alanine Aminotransferase ( ALT/SGPT) 109H, Alkaline Phosphatase 236H, Total Protein 7.6, Albumin 2.8L, Globulin 4.8, Albumin/Globulin Ratio 0.6L Current Medications Medications (Trade) Dose Ordered Sig/Ghislaine Route PRN Reason Start Time Stop Time Status Last Admin Dose Admin Acetaminophen (Tylenol) 500 mg Q4H PRN ORAL Mild Pain (Pain Scale 1-3) 05/03/20 10:45 06/02/20 10:44 Albuterol Sulfate (Proventil MDI) 2 puff Q4H PRN INH Shortness of Breath 05/03/20 09:00 08/01/20 08:59 05/09/20 09:58 Apixaban (Eliquis) 2.5 mg BID ORAL 05/03/20 18:00 08/01/20 17:59 05/09/20 09:48 Aspirin (Ecotrin) 81 mg DAILY ORAL 05/03/20 16:00 06/17/20 15:59 05/09/20 09:47 Diltiazem HCl (Cardizem CD) 180 mg BID ORAL 05/07/20 09:00 06/06/20 08:59 05/09/20 09:47 Methylprednisolone Sodium Succinate (Solu-MEDROL) 60 mg DAILY IVP 05/08/20 09:00 08/06/20 08:59 05/09/20 09:47 Pantoprazole (Protonix) 40 mg DAILY ORAL 05/03/20 16:00 10/6/20 15:59 05/09/20 09:47 Salmeterol Xinafoate/ Fluticasone (Advair 100/50 Diskus) 1 puffs TWICE A DAY INH 05/03/20 18:00 08/01/20 17:59 05/09/20 09:50 Sodium Chloride 1,000 ml @ 75 mls/hr [id number] IV 05/07/20 13:47 06/06/20 13:46 05/09/20 05:00 Assessment/Plan Assessment/Plan Impression: COVID-19 Chronic obstructive pulmonary disease/Asthma Community acquired pneumonia Atrial fibrillation with RVR Elevated troponin Congestive heart Failure sinus tachycardia Hypoxemia transaminitis consider cholecystitis acute on chronic renal failure Plan ID noted IV Steroids per ID Bronchodilator therapy O2 PRN Eliquis and monitor HH Monitor labs/ will call renal Covid 19 Isolation- repeat swab reviewed care and optimize pending HIDA monitor cxr and oxygen needs- watch effusion guarded impression, plan, and exam edited and reviewed in detail care discussed with Aaron Bales MD May 09, 2020 13:28
--- NOTE | 2020-05-09 16:02 | NUR ---
NURSE NOTES: Pt rapid covid test came back positive. Doctor made aware. awaiting call back. Addendum: 05/09/20 at 1946 by Halie Horton RN RN responded no new orders
[2020-05-09] MEDS ORDERED: 1/2 NS 1000ml IV ONE (16:23)
--- NOTE | 2020-05-09 19:30 | NUR ---
NURSE HAND-OFF REPORT: Important Events on Shift: covid rapid positive, 6 beats vtach Patient Status: fc, stable Diet: cardiac diet, reg texture Pending Orders: Pending Results/Labs: Pending MD notification: Latest Vital Signs: Temperature 97.9 , Pulse 82 , B/P 113 /62 , Respiratory Rate 20 , O2 SAT 96 , Nasal Cannula, O2 Flow Rate 2.0 . Vital Sign Comment: EKG Rhythm: Atrial Fibrillation Rhythm change?: N MD Notified?: Tracy Doe MD Response: No New Orders Received Latest Lechuga Fall Score: 45 Fall Risk: High Risk Safety Measures: Call light Within Reach, Bed Alarm Zone 1, Side Rails Side Rails x2, Bed position Low and Locked. Fall Precautions: Yellow Socks Yellow Gown Door Sign Patient Fall Education Report given to DAMIAN Keenan.
--- NOTE | 2020-05-09 20:00 | NUR ---
NURSE NOTES: Received report from Adriane SALGADO. AOx2.Pt is forgetful, needs reminding re using call light for assistance, just helped to the bedside commode now in bed in semi fowlers, upright. Pt is on 2 L NC saturating well, 95% no complaints or s/s of distress at this time. Pt R IV 18g running 1/2 NS at 75 cc, bleeding around the site Pt bilateral lower extremity edema +1, ankle and foot bilaterally. Bed alarm on, call light in reach, bed low and locked position side rails x3, and yellow socks/ yellow gown on, fall precautions implemented. Pt instructed to call for help, verbalized understanding.
[2020-05-10] VITALS: BP 111/86
--- NOTE | 2020-05-10 01:30 | Cardiology Progress Note ---
Subjective DATE OF SERVICE: May 09, 2020 Still SOB today. On low flow oxygen delivery Monitor: AFib with episodes of RVR and nonsustained VTach. Lactic acid resolved CXR: reveals interstial airspace disease and worsening left pleural effusion Objective Last 24 Hour Vital Signs Date Time Temp Pulse Resp B/P (MAP) Pulse Ox O2 Delivery O2 Flow Rate FiO2 05/10/20 00:00 67 05/10/20 00:00 97.8 71 21 111/86 (94) 97 05/09/20 21:00 Nasal Cannula 2.0 Nasal Cannula 2.0 05/09/20 20:00 76 05/09/20 20:00 98.1 74 21 123/65 (84) 96 05/09/20 17:32 82 113/62 05/09/20 16:00 97.9 87 20 113/62 (79) 96 05/09/20 16:00 82 05/09/20 12:30 119/60 (79) 05/09/20 12:00 97.9 81 20 142/62 (88) 96 05/09/20 12:00 87 05/09/20 09:47 78 107/60 05/09/20 09:00 Nasal Cannula 2.0 Nasal Cannula 2.0 05/09/20 08:00 97.9 78 22 107/60 (76) 96 05/09/20 08:00 103 05/09/20 06:00 84 05/09/20 06:00 98.6 73 20 131/54 (79) 96 05/09/20 04:00 98.6 73 20 131/54 (79) 96 ROS: unchanged from my eval of 05/03/20 LUNGS: no accessory muscle use, expiratory wheezing, diminished breath sounds CARDIAC: normal S1 and S2, no murmur, irregularly irregular ABDOMEN: normal bowel sounds, non tender, soft, no organomegaly EXTREMITIES: no calf tenderness, +1 edema Laboratory Tests Test 05/09/20 05:45 05/09/20 10:15 White Blood Count 9.0 K/UL (4.8-10.8) Red Blood Count 4.98 M/UL (4.20-5.40) Hemoglobin 13.7 G/DL (12.0-16.0) Hematocrit 43.7 % (37.0-47.0) Mean Corpuscular Volume 88 FL (80-99) Mean Corpuscular Hemoglobin 27.4 PG (27.0-31.0) Mean Corpuscular Hemoglobin Concent 31.3 G/DL (32.0-36.0) L Red Cell Distribution Width 18.7 % (11.6-14.8) H Platelet Count 308 K/UL (150-450) Mean Platelet Volume 5.7 FL (6.5-10.1) L Neutrophils (%) (Auto) % (45.0-75.0) Lymphocytes (%) (Auto) % (20.0-45.0) Monocytes (%) (Auto) % (1.0-10.0) Eosinophils (%) (Auto) % (0.0-3.0) Basophils (%) (Auto) % (0.0-2.0) Differential Total Cells Counted 100 Neutrophils % (Manual) 93 % (45-75) H Lymphocytes % (Manual) 2 % (20-45) L Monocytes % (Manual) 5 % (1-10) Eosinophils % (Manual) 0 % (0-3) Basophils % (Manual) 0 % (0-2) Band Neutrophils 0 % (0-8) Nucleated Red Blood Cells 2 /100 WBC Platelet Estimate Adequate Platelet Morphology Normal Anisocytosis 2+ Sodium Level 132 MMOL/L (136-145) L Potassium Level 4.1 MMOL/L (3.5-5.1) Chloride Level 95 MMOL/L (98-107) L Carbon Dioxide Level 24 MMOL/L (21-32) Anion Gap 13 mmol/L (5-15) Blood Urea Nitrogen 67 mg/dL (7-18) H Creatinine 3.4 MG/DL (0.55-1.30) H Estimat Glomerular Filtration Rate 15.8 mL/min (>60) Glucose Level 170 MG/DL (74-106) H Calcium Level 9.6 MG/DL (8.5-10.1) Total Bilirubin 0.6 MG/DL (0.2-1.0) Aspartate Amino Transf (AST/SGOT) 31 U/L (15-37) Alanine Aminotransferase (ALT/SGPT) 109 U/L (12-78) H Alkaline Phosphatase 236 U/L (46-116) H Total Protein 7.6 G/DL (6.4-8.2) Albumin 2.8 G/DL (3.4-5.0) L Globulin 4.8 g/dL Albumin/Globulin Ratio 0.6 (1.0-2.7) L Microbiology Date/Time Source Procedure Growth Status 05/09/20 14:31 Nasopharynx SARS-CoV-2 RdRp Gene Assay - Final Complete Assessment/Plan Assessment/Plan COPD exacerb with active bronchospasm Lactic acidosis resolved COVID 19 PNA Acute on chr renal failure - now with hyperkalemia Chronic systolic/diastolic CHF Pulmonary fibrosis with chronic hypoxia Paroxysmal AFib with RVR Hx Multifocal atrial arrhythmias Pulmonary HTN - severe Hx NSVTach Acute myocardial ischemia Worsening left pleural effusion Maintain diltiazem for rate control - titrate Steroids per pulmonary Inhaled bronchodilators IVF continued Kayexalate as needed for elevated K+ No diuresis at present Full anticoagulation for cardioembolic prophyl Isolation Anti-viral rx per ID Consider thorocentesis Simone Perez MD May 10, 2020 01:30
[2020-05-10 04:00] VITALS: BP 136/72
--- NOTE | 2020-05-10 04:02 | NUR ---
NURSE NOTES: Pt had 8 beats of vtach, resting in bed at this time
--- NOTE | 2020-05-10 05:16 | NUR ---
NURSE NOTES: Dr Perez informed via telephone re pt 8 beats vtach, occurred previously yesterday.
--- NOTE | 2020-05-10 07:33 | NUR ---
NURSE NOTES: Received report from Ree Berger RN. Awake in bed resting. Pt is on 2 L NC. no complaints or s/s of distress at this time. No IV at this time will insert shortly. Bed alarm on, call light in reach, bed low and locked position side rails x3, and yellow socks/ yellow gown on, fall precautions implemented. Pt instructed to call for help, verbalized understanding. Bedside commode present.
--- NOTE | 2020-05-10 07:33 | NUR ---
NURSE HAND-OFF REPORT: Important Events on Shift: covid rapid positive, 8 beats nonsustained vtach Patient Status: stable Diet: cardiac diet, reg texture Pending Orders: Pending Results/Labs: Pending MD notification: Latest Vital Signs: Temperature 97.9 , Pulse 82 , B/P 113 /62 , Respiratory Rate 20 , O2 SAT 96 , Nasal Cannula 2 L O2 Flow Rate 2.0 . Vital Sign Comment: EKG Rhythm: Atrial Fibrillation, had non sustained vtach 8 beats Rhythm change?: tracy MCCRACKEN Notified?: Tracy Doe MD Response: No New Orders Received Latest Lechuga Fall Score: 45 Fall Risk: High Risk Safety Measures: Call light Within Reach, Bed Alarm Zone 1, Side Rails Side Rails x2, Bed position Low and Locked. Fall Precautions: Yellow Socks Yellow Gown Door Sign Patient Fall Education Report given to Ermelinda SALGADO
--- NOTE | 2020-05-10 07:34 | NUR ---
NURSE NOTES: Endorsed that I was unable to obtain IV access and fluids were changed to NS at 100ml/h, but not yet hung, no laurie ccess
[2020-05-10 08:00] VITALS: BP 108/60
--- NOTE | 2020-05-10 09:05 | Diagnostic Imaging Report ---
EXAM: XR Chest, 1 View CLINICAL HISTORY: SOB TECHNIQUE: Frontal view of the chest. COMPARISON: Chest radiograph May 07, 2020 FINDINGS/impression: 1 compared to chest radiograph May 07, 2020, there is worsening airspace opacities throughout the left lung and to a lesser degree right lung, consistent with infiltrate. Small left parapneumonic effusion. No pneumothorax. Cardiomegaly. Calcified aorta.
[2020-05-10 09:20] LABS: ALBUMIN 2.9 G/DL (3.4-5.0); ALBUMIN/GLOBULIN RATIO 0.6 (1.0-2.7); BILIRUBIN,TOTAL 0.6 MG/DL (0.2-1.0); CALCIUM 9.9 MG/DL (8.5-10.1); CREATININE 3.4 MG/DL (0.55-1.30); POTASSIUM 4.4 MMOL/L (3.5-5.1)
--- NOTE | 2020-05-10 09:40 | NUR ---
NURSE NOTES: bp at 8am 108/60.. Per Dr. downey recheck in 1 hour to decide if Cardizem should be held. New bp 119/69. Per Kaveh give Cardizem, give Lasix 20mg IV and DC Iv fluids.
[2020-05-10] MEDS: Solu-MEDROL 125mg Inj IVP SCH (09:41)
[2020-05-10] MEDS: dilTIAZem HCl ER 180mg cap ORAL SCH ×2 (09:41→17:02)
[2020-05-10] MEDS: Wixela 100/50 Inhaler - 60 dose INH SCH ×2 (09:41→17:02)
[2020-05-10] MEDS: Eliquis 2.5mg tablet ORAL SCH ×2 (09:42→17:03)
[2020-05-10] MEDS: Aspirin EC 81mg tab ORAL SCH (09:42)
--- NOTE | 2020-05-10 11:58 | General Progress Note ---
Assessment/Plan Problem List: (1) Pulmonary fibrosis ICD Codes: J84.10 - Pulmonary fibrosis, unspecified SNOMED: 50902975 (2) History of asthma ICD Codes: Z87.09 - Personal history of other diseases of the respiratory system SNOMED: 954091961 (3) Asthma ICD Codes: J45.909 - Unspecified asthma, uncomplicated SNOMED: 424543942 (4) NSTEMI (non-ST elevated myocardial infarction) ICD Codes: I21.4 - Non-ST elevation (NSTEMI) myocardial infarction SNOMED: 170770456 (5) Elevated troponin ICD Codes: R79.89 - Other specified abnormal findings of blood chemistry SNOMED: 069090668, 212361272, 357681585 (6) COPD (chronic obstructive pulmonary disease) ICD Codes: J44.9 - Chronic obstructive pulmonary disease, unspecified SNOMED: 03424477 (7) Atrial fibrillation with RVR ICD Codes: I48.91 - Unspecified atrial fibrillation SNOMED: 088381924089518 (8) Community acquired pneumonia ICD Codes: J18.9 - Pneumonia, unspecified organism SNOMED: 885270594 Status: stable Assessment/Plan: cont current rx wean iv steroids dc ivf lasix x 1 monitor cxr resp rx/mdi monitor renal fxn dw/ dtr itzel. compliance stressed. Subjective ROS Limited/Unobtainable: No Constitutional: Reports: malaise, weakness HEENT: Reports: no symptoms Cardiovascular: Reports: edema Respiratory: Reports: cough Gastrointestinal/Abdominal: Reports: no symptoms Genitourinary: Reports: no symptoms Neurologic/Psychiatric: Reports: no symptoms Endocrine: Reports: no symptoms Hematologic/Lymphatic: Reports: no symptoms Allergies: Coded Allergies: CIPROFLOXACIN (Verified Allergy, Unknown, 09/27/17) All Systems: reviewed and negative except above Subjective complaints of increased LE edema. HR controlled. no fever or chills. minimal cough. denies sob. surgery noted- doubt cholecystitis Objective Last 24 Hour Vital Signs Date Time Temp Pulse Resp B/P (MAP) Pulse Ox O2 Delivery O2 Flow Rate FiO2 05/10/20 09:41 84 119/69 05/10/20 09:00 Nasal Cannula 2.0 Nasal Cannula 2.0 05/10/20 08:00 97.9 92 20 108/60 (76) 95 9/13/20 08:00 81 05/10/20 04:00 98.1 71 22 136/72 (93) 100 05/10/20 04:00 64 05/10/20 03:56 84 05/10/20 00:00 67 05/10/20 00:00 97.8 71 21 111/86 (94) 97 05/09/20 21:00 Nasal Cannula 2.0 Nasal Cannula 2.0 05/09/20 20:00 76 05/09/20 20:00 98.1 74 21 123/65 (84) 96 05/09/20 17:32 82 113/62 05/09/20 16:00 97.9 87 20 113/62 (79) 96 05/09/20 16:00 82 05/09/20 12:30 119/60 (79) 05/09/20 12:00 97.9 81 20 142/62 (88) 96 05/09/20 12:00 87 Intake and Output 05/09/20 05/10/20 19:00 07:00 Intake Total 320 ml Balance 320 ml Intake Oral 320 ml # Voids 1 3 # Bowel Movements 1 Laboratory Tests 05/10/20 08:20: Sodium Level 132L, Potassium Level 4.4, Chloride Level 95L, Carbon Dioxide Level 24, Anion Gap 13, Blood Urea Nitrogen 70H, Creatinine 3.4H, Estimat Glomerular Filtration Rate 15.8, Glucose Level 154H, Calcium Level 9.9, Total Bilirubin 0.6, Aspartate Amino Transf (AST/SGOT) 24, Alanine Aminotransferase ( ALT/SGPT) 96H, Alkaline Phosphatase 232H, Total Protein 7.7, Albumin 2.9L, Globulin 4.8, Albumin/Globulin Ratio 0.6L Height (Feet): 5 Height (Inches): 3.00 Weight (Pounds): 160 Objective General Appearance: WD/WN, no apparent distress, alert EENT: PERRL/EOMI Neck: non-tender, normal alignment, supple Cardiovascular: normal rate, regular rhythm Respiratory/Chest: chest wall non-tender, lungs clear, normal breath sounds, no respiratory distress, no accessory muscle use Abdomen: normal bowel sounds, non tender, soft, no organomegaly Edema: no edema noted Arm (L), no edema noted Arm (R) 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
[2020-05-10 12:00] VITALS: BP 95/54
--- NOTE | 2020-05-10 12:57 | Pulmonology Progress Note ---
Subjective ROS Limited/Unobtainable: No Constitutional: Denies: fever, chills Gastrointestinal/Abdominal: Denies: nausea, vomiting, diarrhea Musculoskeletal: Denies: pain Allergies: Coded Allergies: CIPROFLOXACIN (Verified Allergy, Unknown, 09/27/17) All Systems: reviewed and negative except above Subjective remains on isolation care noted and reviewed repeat swab +COVID leg edema worse CXR worse Objective Last 24 Hour Vital Signs Date Time Temp Pulse Resp B/P (MAP) Pulse Ox O2 Delivery O2 Flow Rate FiO2 05/10/20 09:41 84 119/69 05/10/20 09:00 Nasal Cannula 2.0 Nasal Cannula 2.0 05/10/20 08:00 97.9 92 20 108/60 (76) 95 05/10/20 08:00 81 05/10/20 04:00 98.1 71 22 136/72 (93) 100 05/10/20 04:00 64 05/10/20 03:56 84 05/10/20 00:00 67 05/10/20 00:00 97.8 71 21 111/86 (94) 97 05/09/20 21:00 Nasal Cannula 2.0 Nasal Cannula 2.0 05/09/20 20:00 76 05/09/20 20:00 98.1 74 21 123/65 (84) 96 05/09/20 17:32 82 113/62 05/09/20 16:00 97.9 87 20 113/62 (79) 96 05/09/20 16:00 82 Intake and Output 05/09/20 05/10/20 19:00 07:00 Intake Total 320 ml Balance 320 ml Intake Oral 320 ml # Voids 1 3 # Bowel Movements 1 Objective deferred due to COVID Microbiology Date/Time Source Procedure Growth Status 05/09/20 14:31 Nasopharynx SARS-CoV-2 RdRp Gene Assay - Final Complete Laboratory Tests 05/10/20 08:20: Sodium Level 132L, Potassium Level 4.4, Chloride Level 95L, Carbon Dioxide Level 24, Anion Gap 13, Blood Urea Nitrogen 70H, Creatinine 3.4H, Estimat Glomerular Filtration Rate 15.8, Glucose Level 154H, Calcium Level 9.9, Total Bilirubin 0.6, Aspartate Amino Transf (AST/SGOT) 24, Alanine Aminotransferase ( ALT/SGPT) 96H, Alkaline Phosphatase 232H, Total Protein 7.7, Albumin 2.9L, Globulin 4.8, Albumin/Globulin Ratio 0.6L Current Medications Medications (Trade) Dose Ordered Sig/Ghislaine Route PRN Reason Start Time Stop Time Status Last Admin Dose Admin Acetaminophen (Tylenol) 500 mg Q4H PRN ORAL Mild Pain (Pain Scale 1-3) 05/03/20 10:45 06/02/20 10:44 Albuterol Sulfate (Proventil MDI) 2 puff Q4H PRN INH Shortness of Breath 05/03/20 09:00 08/01/20 08:59 05/09/20 09:58 Apixaban (Eliquis) 2.5 mg BID ORAL 05/03/20 18:00 08/01/20 17:59 05/10/20 09:42 Aspirin (Ecotrin) 81 mg DAILY ORAL 05/03/20 16:00 06/17/20 15:59 05/10/20 09:42 Diltiazem HCl (Cardizem CD) 180 mg BID ORAL 05/07/20 09:00 06/06/20 08:59 05/10/20 09:41 Methylprednisolone Sodium Succinate (Solu-MEDROL) 60 mg DAILY IVP 05/08/20 09:00 08/06/20 08:59 05/10/20 09:41 Pantoprazole (Protonix) 40 mg DAILY ORAL 05/03/20 16:00 06/02/20 15:59 05/10/20 09:42 Salmeterol Xinafoate/ Fluticasone (Advair 100/50 Diskus) 1 puffs TWICE A DAY INH 05/03/20 18:00 08/01/20 17:59 05/10/20 09:41 Assessment/Plan Assessment/Plan Impression: COVID-19 Chronic obstructive pulmonary disease/Asthma Community acquired pneumonia Atrial fibrillation with RVR Elevated troponin Congestive heart Failure sinus tachycardia Hypoxemia transaminitis consider cholecystitis acute on chronic renal failure Plan ID noted IV Steroids per ID Bronchodilator therapy O2 PRN Eliquis and monitor HH Monitor labs/ await renal / dc iv fluids and give lasix Covid 19 Isolation- repeat swab+ reviewed care and optimize pending HIDA monitor cxr and oxygen needs- watch effusion and tap PRN guarded and not ready for dc impression, plan, and exam edited and reviewed in detail care discussed with Aaron Bales MD May 10, 2020 12:57
--- NOTE | 2020-05-10 14:20 | NUR ---
NURSE NOTES: Went into room to check up on pt, she complained of 10/10 chest pain. Took vitals (bp 113/64, HR 85, 02 95% on 2 liters NC, Afib on heart monitor). Pt showing slight labored breathing but otherwise asymptomatic. Immediately called Dr. Brittaney hancock, Dr. Linn picked up, reported findings. Per , give Tylenol. I will reevaluate pain within the hour and report to MD if there are no changes in pain level. Left call light directly in pt's right hand and told her to press immediately if she starts to feel worse.
--- NOTE | 2020-05-10 15:00 | Infectious Diseases Prog Note ---
Assessment/Plan Assessment/Plan A 1. COVID 19 pneumonia Test positive: 05/03 -05/09 2. renal failure 3. increased LFT 4. COPD 5. CHF, Diastolic & systolic 6. asthma 7. Cholelithiasis r/o cholecystitis P 1. continue solumedrol 2. will follow up cultures 3. Will f/u HIDA scan Subjective ROS Limited/Unobtainable: No Constitutional: Reports: no symptoms Respiratory: Reports: no symptoms Cardiovascular: Reports: no symptoms Gastrointestinal/Abdominal: Reports: no symptoms Allergies: Coded Allergies: CIPROFLOXACIN (Verified Allergy, Unknown, 09/27/17) Objective Last 24 Hour Vital Signs Date Time Temp Pulse Resp B/P (MAP) Pulse Ox O2 Delivery O2 Flow Rate FiO2 05/10/20 12:00 97.9 72 22 95/54 (68) 95 05/10/20 12:00 83 05/10/20 09:41 84 119/69 05/10/20 09:00 Nasal Cannula 2.0 Nasal Cannula 2.0 05/10/20 08:00 97.9 92 20 108/60 (76) 95 05/10/20 08:00 81 05/10/20 04:00 98.1 71 22 136/72 (93) 100 05/10/20 04:00 64 05/10/20 03:56 84 05/10/20 00:00 67 05/10/20 00:00 97.8 71 21 111/86 (94) 97 05/09/20 21:00 Nasal Cannula 2.0 Nasal Cannula 2.0 05/09/20 20:00 76 05/09/20 20:00 98.1 74 21 123/65 (84) 96 05/09/20 17:32 82 113/62 05/09/20 16:00 97.9 87 20 113/62 (79) 96 05/09/20 16:00 82 Height (Feet): 5 Height (Inches): 3.00 Weight (Pounds): 160 General Appearance: no acute distress HEENT: mucous membranes moist Respiratory/Chest: lungs clear, other - oxygen by nasal cannula Cardiovascular: normal rate, irregularly irregular Abdomen: soft, non tender Extremities: other - edema Neurologic/Psychiatric: alert, responsive Microbiology Date/Time Source Procedure Growth Status 05/09/20 14:31 Nasopharynx SARS-CoV-2 RdRp Gene Assay - Final Complete Laboratory Tests Test 05/10/20 08:20 Sodium Level 132 MMOL/L (136-145) L Potassium Level 4.4 MMOL/L (3.5-5.1) Chloride Level 95 MMOL/L (98-107) L Carbon Dioxide Level 24 MMOL/L (21-32) Anion Gap 13 mmol/L (5-15) Blood Urea Nitrogen 70 mg/dL (7-18) H Creatinine 3.4 MG/DL (0.55-1.30) H Estimat Glomerular Filtration Rate 15.8 mL/min (>60) Glucose Level 154 MG/DL (74-106) H Calcium Level 9.9 MG/DL (8.5-10.1) Total Bilirubin 0.6 MG/DL (0.2-1.0) Aspartate Amino Transf (AST/SGOT) 24 U/L (15-37) Alanine Aminotransferase (ALT/SGPT) 96 U/L (12-78) H Alkaline Phosphatase 232 U/L (46-116) H Total Protein 7.7 G/DL (6.4-8.2) Albumin 2.9 G/DL (3.4-5.0) L Globulin 4.8 g/dL Albumin/Globulin Ratio 0.6 (1.0-2.7) L Current Medications Medications (Trade) Dose Ordered Sig/Ghislaine Route PRN Reason Start Time Stop Time Status Last Admin Dose Admin Acetaminophen (Tylenol) 500 mg Q4H PRN ORAL Mild Pain (Pain Scale 1-3) 05/03/20 10:45 06/02/20 10:44 05/10/20 14:22 Albuterol Sulfate (Proventil MDI) 2 puff Q4H PRN INH Shortness of Breath 05/03/20 09:00 08/01/20 08:59 05/09/20 09:58 Apixaban (Eliquis) 2.5 mg BID ORAL 05/03/20 18:00 08/01/20 17:59 05/10/20 09:42 Aspirin (Ecotrin) 81 mg DAILY ORAL 05/03/20 16:00 06/17/20 15:59 05/10/20 09:42 Diltiazem HCl (Cardizem CD) 180 mg BID ORAL 05/07/20 09:00 06/06/20 08:59 05/10/20 09:41 Methylprednisolone Sodium Succinate (Solu-MEDROL) 60 mg DAILY IVP 05/08/20 09:00 08/06/20 08:59 05/10/20 09:41 Pantoprazole (Protonix) 40 mg DAILY ORAL 05/03/20 16:00 06/02/20 15:59 05/10/20 09:42 Salmeterol Xinafoate/ Fluticasone (Advair 100/50 Diskus) 1 puffs TWICE A DAY INH 05/03/20 18:00 08/01/20 17:59 05/10/20 09:41 Freddy Woodson MD May 10, 2020 15:00
--- NOTE | 2020-05-10 15:00 | NUR ---
NURSE NOTES: Followed up regarding chest pain. Per pt, "No more pain." This pt is A&O x 4 (stated name, April, "Hospital" "Cov[facility]"), however she seems confused. Repeats things, forgets that I have visited the room, states that she wants to stand etc. Will reevaluate chest pain in an hour.
[2020-05-10 16:00] VITALS: BP 99/76
--- NOTE | 2020-05-10 16:37 | NUR ---
NURSE NOTES: Assisted pt to bed side commode with REJI Odonnell. Pt then called daughter to tell her she needs to use again. Went to room and she states she needs help getting to commode. Explained that i cannot do it alone, will return in 5 minutes with INFORMATION TECHNOLOGY DATA ANALYST. Pt is heavy and gait is weak, cannot transfer alone.
--- NOTE | 2020-05-10 16:42 | Surgery Progress Note ---
Surgery Progress Note Subjective Symptoms: improved, tolerating diet, passing flatus Objective Last 24 Hour Vital Signs Date Time Temp Pulse Resp B/P (MAP) Pulse Ox O2 Delivery O2 Flow Rate FiO2 05/10/20 16:00 77 05/10/20 16:00 97.7 96 22 99/76 (84) 96 05/10/20 14:52 97.9 05/10/20 12:00 97.9 72 22 95/54 (68) 95 05/10/20 12:00 83 05/10/20 09:41 84 119/69 05/10/20 09:00 Nasal Cannula 2.0 Nasal Cannula 2.0 05/10/20 08:00 97.9 92 20 108/60 (76) 95 05/10/20 08:00 81 05/10/20 04:00 98.1 71 22 136/72 (93) 100 05/10/20 04:00 64 05/10/20 03:56 84 05/10/20 00:00 67 05/10/20 00:00 97.8 71 21 111/86 (94) 97 05/09/20 21:00 Nasal Cannula 2.0 Nasal Cannula 2.0 05/09/20 20:00 76 05/09/20 20:00 98.1 74 21 123/65 (84) 96 05/09/20 17:32 82 113/62 I&O Intake and Output 05/09/20 05/10/20 19:00 07:00 Intake Total 320 ml Balance 320 ml Intake Oral 320 ml # Voids 1 3 # Bowel Movements 1 Dressing: saturated Cardiovascular: RSR Respiratory: decreased breath sounds Abdomen: soft, non-tender, present bowel sounds Extremities: no edema, no tenderness, no cyanosis Laboratory Tests Test 05/10/20 08:20 Sodium Level 132 MMOL/L (136-145) L Potassium Level 4.4 MMOL/L (3.5-5.1) Chloride Level 95 MMOL/L (98-107) L Carbon Dioxide Level 24 MMOL/L (21-32) Anion Gap 13 mmol/L (5-15) Blood Urea Nitrogen 70 mg/dL (7-18) H Creatinine 3.4 MG/DL (0.55-1.30) H Estimat Glomerular Filtration Rate 15.8 mL/min (>60) Glucose Level 154 MG/DL (74-106) H Calcium Level 9.9 MG/DL (8.5-10.1) Total Bilirubin 0.6 MG/DL (0.2-1.0) Aspartate Amino Transf (AST/SGOT) 24 U/L (15-37) Alanine Aminotransferase (ALT/SGPT) 96 U/L (12-78) H Alkaline Phosphatase 232 U/L (46-116) H Total Protein 7.7 G/DL (6.4-8.2) Albumin 2.9 G/DL (3.4-5.0) L Globulin 4.8 g/dL Albumin/Globulin Ratio 0.6 (1.0-2.7) L Plan Problems: (1) Elevated troponin (2) Atrial fibrillation with RVR (3) COVID-19 Assessment & Plan: ++ as per pulm and ID (4) Community acquired pneumonia (5) COPD (chronic obstructive pulmonary disease) (6) Pulmonary fibrosis (7) Asthma (8) History of asthma (9) NSTEMI (non-ST elevated myocardial infarction) (10) Moderate to severe pulmonary hypertension (11) Asthma exacerbation (12) Abnormal LFTs Assessment & Plan: afebrile, HD stable labs noted lft's elevated US reviewed exam benign gb likely reactive from underlying pathology unlikely cholecystitis clinically fluid overload trend labs will monitor exam clinically Gallbladder demonstrates wall thickening and wall edema, gallbladder wall measuring up to 6 mm thick. There are gallstones. Sonographic Escoto's sign is negative. Common bile duct measures 3 mm in diameter. No intrahepatic biliary ductal dilatation. Liver demonstrates normal echogenicity, no focal abnormality. Portal vein and hepatic veins are patent. Pancreas is unremarkable. Spleen is unremarkable. Left kidney measures 9.2 cm in length. Right kidney measures 9.9 cm length. Both kidneys demonstrate normal echogenicity. There is no hydronephrosis. Small cyst is seen in the right kidney. . Abdominal aorta was not imaged . There is trace ascites. There is a small right pleural effusion incidentally noted Impression: Small right pleural effusion. Trace ascites Cholelithiasis. Gallbladder wall thickening may be related to hemodynamic factors causing the pleural fluid and ascites, but could also indicate acute cholecystitis. Consider nuclear medicine hepatobiliary scan if there is high clinical suspicion. Negative for dilated bile ducts Small right renal cyst incidentally noted (13) Acute respiratory failure with hypoxia Quentin Sanchez May 10, 2020 16:42
--- NOTE | 2020-05-10 18:11 | Cardiology Progress Note ---
Subjective Still with congestion and worsening edema. On low flow oxygen delivery Monitor: AFib with episodes of RVR and nonsustained VTach. Lactic acid resolved CXR: reveals interstial airspace disease worsening on left, with small pleural effusion Objective Last 24 Hour Vital Signs Date Time Temp Pulse Resp B/P (MAP) Pulse Ox O2 Delivery O2 Flow Rate FiO2 05/10/20 17:02 77 99/76 05/10/20 16:00 77 05/10/20 16:00 97.7 96 22 99/76 (84) 96 05/10/20 14:52 97.9 05/10/20 12:00 97.9 72 22 95/54 (68) 95 05/10/20 12:00 83 05/10/20 09:41 84 119/69 05/10/20 09:00 Nasal Cannula 2.0 Nasal Cannula 2.0 05/10/20 08:00 97.9 92 20 108/60 (76) 95 05/10/20 08:00 81 05/10/20 04:00 98.1 71 22 136/72 (93) 100 05/10/20 04:00 64 05/10/20 03:56 84 05/10/20 00:00 67 05/10/20 00:00 97.8 71 21 111/86 (94) 97 05/09/20 21:00 Nasal Cannula 2.0 Nasal Cannula 2.0 05/09/20 20:00 76 05/09/20 20:00 98.1 74 21 123/65 (84) 96 ROS: unchanged from my eval of 05/03/20 LUNGS: no accessory muscle use, expiratory wheezing, diminished breath sounds CARDIAC: normal S1 and S2, no murmur, irregularly irregular ABDOMEN: normal bowel sounds, non tender, soft, no organomegaly EXTREMITIES: no calf tenderness, +1 edema Laboratory Tests Test 05/10/20 08:20 Sodium Level 132 MMOL/L (136-145) L Potassium Level 4.4 MMOL/L (3.5-5.1) Chloride Level 95 MMOL/L (98-107) L Carbon Dioxide Level 24 MMOL/L (21-32) Anion Gap 13 mmol/L (5-15) Blood Urea Nitrogen 70 mg/dL (7-18) H Creatinine 3.4 MG/DL (0.55-1.30) H Estimat Glomerular Filtration Rate 15.8 mL/min (>60) Glucose Level 154 MG/DL (74-106) H Calcium Level 9.9 MG/DL (8.5-10.1) Total Bilirubin 0.6 MG/DL (0.2-1.0) Aspartate Amino Transf (AST/SGOT) 24 U/L (15-37) Alanine Aminotransferase (ALT/SGPT) 96 U/L (12-78) H Alkaline Phosphatase 232 U/L (46-116) H Total Protein 7.7 G/DL (6.4-8.2) Albumin 2.9 G/DL (3.4-5.0) L Globulin 4.8 g/dL Albumin/Globulin Ratio 0.6 (1.0-2.7) L Microbiology Date/Time Source Procedure Growth Status 05/09/20 14:31 Nasopharynx SARS-CoV-2 RdRp Gene Assay - Final Complete Assessment/Plan Assessment/Plan LE edema due to severe pulmonary hypertension and right heart strain COPD exacerb with active bronchospasm Lactic acidosis COVID 19 PNA Acute on chr renal failure - now with hyperkalemia Chronic systolic/diastolic CHF Pulmonary fibrosis with chronic hypoxia Paroxysmal AFib with RVR Hx Multifocal atrial arrhythmias Pulmonary HTN - severe Hx NSVTach Acute myocardial ischemia Maintain diltiazem - titrate Steroids per pulmonary Inhaled bronchodilators IVF discontinued Reassess for diuresis. Full anticoagulation for cardioembolic prophyl Isolation Anti-viral rx per Simone Shirley MD May 10, 2020 18:11
--- NOTE | 2020-05-10 19:15 | NUR ---
HAND-OFF: Report given to Elizabeth SALGADO.
--- NOTE | 2020-05-10 19:50 | NUR ---
NURSE NOTES: Received pt from DAMIAN Wadsworth. Pt awake, alert, and talkative. Bed in lowest position. Call light within reach. Will continue to monitor.
[2020-05-10 20:00] VITALS: BP 109/38
--- NOTE | 2020-05-10 20:23 | NUR ---
NURSE NOTES: Called and left a message with Dr. Jefferson regarding pts sodium level. Awaiting call back
[2020-05-11] VITALS (17 sets, daily range): BP systolic 92–129; BP diastolic 43–77
--- NOTE | 2020-05-11 07:36 | General Progress Note ---
Assessment/Plan Problem List: (1) Pulmonary fibrosis ICD Codes: J84.10 - Pulmonary fibrosis, unspecified SNOMED: 54715096 (2) History of asthma ICD Codes: Z87.09 - Personal history of other diseases of the respiratory system SNOMED: 096068772 (3) Asthma ICD Codes: J45.909 - Unspecified asthma, uncomplicated SNOMED: 751938294 (4) NSTEMI (non-ST elevated myocardial infarction) ICD Codes: I21.4 - Non-ST elevation (NSTEMI) myocardial infarction SNOMED: 049303196 (5) Elevated troponin ICD Codes: R79.89 - Other specified abnormal findings of blood chemistry SNOMED: 181046847, 043407002, 920074583 (6) COPD (chronic obstructive pulmonary disease) ICD Codes: J44.9 - Chronic obstructive pulmonary disease, unspecified SNOMED: 58105608 (7) Atrial fibrillation with RVR ICD Codes: I48.91 - Unspecified atrial fibrillation SNOMED: 623148016338461 (8) Community acquired pneumonia ICD Codes: J18.9 - Pneumonia, unspecified organism SNOMED: 393600566 Status: stable Assessment/Plan: cont current rx wean iv steroids follow up labs renal US venous duplex elevate legs monitor cxr resp rx/mdi monitor renal fxn dw/ dtr itzel. compliance stressed. Subjective ROS Limited/Unobtainable: No Constitutional: Reports: malaise, weakness HEENT: Reports: no symptoms Cardiovascular: Reports: edema Respiratory: Reports: cough, shortness of breath, SOB with excertion Gastrointestinal/Abdominal: Reports: no symptoms Genitourinary: Reports: no symptoms Neurologic/Psychiatric: Reports: no symptoms Hematologic/Lymphatic: Reports: no symptoms Allergies: Coded Allergies: CIPROFLOXACIN (Verified Allergy, Unknown, 09/27/17) All Systems: reviewed and negative except above Subjective no events. HR controlled. compliant with meds. c/o LE edema. IVF dcd yesterday. single dose of lasix given- minimal uop per night RN. remains on o2 Objective Last 24 Hour Vital Signs Date Time Temp Pulse Resp B/P (MAP) Pulse Ox O2 Delivery O2 Flow Rate FiO2 05/11/20 04:00 77 05/11/20 04:00 97.9 77 22 106/69 (81) 92 05/11/20 00:00 72 05/11/20 00:00 99.1 74 23 122/63 (82) 91 05/10/20 21:00 Nasal Cannula 2.0 Nasal Cannula 2.0 05/10/20 20:00 83 05/10/20 20:00 98.1 74 22 109/38 (61) 95 05/10/20 17:02 77 99/76 05/10/20 16:00 77 05/10/20 16:00 97.7 96 22 99/76 (84) 96 05/10/20 14:52 97.9 05/10/20 12:00 97.9 72 22 95/54 (68) 95 05/10/20 12:00 83 05/10/20 09:41 84 119/69 05/10/20 09:00 Nasal Cannula 2.0 Nasal Cannula 2.0 05/10/20 08:00 97.9 92 20 108/60 (76) 95 05/10/20 08:00 81 Intake and Output 05/10/20 05/11/20 19:00 07:00 Intake Total 180 ml Balance 180 ml Intake Oral 180 ml # Voids 3 1 # Bowel Movements 1 Laboratory Tests 05/10/20 08:20: Sodium Level 132L, Potassium Level 4.4, Chloride Level 95L, Carbon Dioxide Level 24, Anion Gap 13, Blood Urea Nitrogen 70H, Creatinine 3.4H, Estimat Glomerular Filtration Rate 15.8, Glucose Level 154H, Calcium Level 9.9, Total Bilirubin 0.6, Aspartate Amino Transf (AST/SGOT) 24, Alanine Aminotransferase ( ALT/SGPT) 96H, Alkaline Phosphatase 232H, Total Protein 7.7, Albumin 2.9L, Globulin 4.8, Albumin/Globulin Ratio 0.6L Height (Feet): 5 Height (Inches): 3.00 Weight (Pounds): 160 Objective General Appearance: WD/WN, no apparent distress, alert EENT: PERRL/EOMI Neck: non-tender, normal alignment, supple Cardiovascular: normal rate, regular rhythm Respiratory/Chest: chest wall non-tender, lungs clear, normal breath sounds, no respiratory distress, no accessory muscle use Abdomen: normal bowel sounds, non tender, soft, no organomegaly Edema: no edema noted Arm (L), no edema noted Arm (R) Neurologic: brusher tender II-XII grossly normal, alert, oriented x 3, responsive Skin: normal pigmentation Lymphatic: normal anterior cervical (L), normal anterior cervical (R) Bradford Linn MD May 11, 2020 07:36
--- NOTE | 2020-05-11 08:12 | NUR ---
TRANSFER TO FLOOR: Patient transferred to [facility], per Dr. Linn. Report given to Canelo. Belongings and medications given to [facility] nurse. Family and or S/O informed of transfer.
--- NOTE | 2020-05-11 08:12 | NUR ---
NURSE NOTES: Received report from DAMIAN Johnson for patient's transfer from [facility]. Patient is AAO x 2-3, able to make some needs known. On O2 at 2LPM via NC with SOB noted, using accessory muscles for respiration. Pt is on bedrest and uses bedpan. Continent x 2. LBM on 05/10. Pt's skin is reported intact with BLE edema. Pt has R AC 22 g but pIV is not flushing. p IV needs to be replaced. No IV access at this time. Bed locked in lowest position, call light within reach. Will continue POC.
--- NOTE | 2020-05-11 08:13 | Pulmonology Progress Note ---
Subjective ROS Limited/Unobtainable: No Constitutional: Reports: no symptoms Gastrointestinal/Abdominal: Reports: no symptoms Musculoskeletal: Denies: pain Allergies: Coded Allergies: CIPROFLOXACIN (Verified Allergy, Unknown, 09/27/17) All Systems: reviewed and negative except above Subjective remains on isolation care noted and reviewed repeat swab +COVID leg edema noted CXR pending Objective Last 24 Hour Vital Signs Date Time Temp Pulse Resp B/P (MAP) Pulse Ox O2 Delivery O2 Flow Rate FiO2 05/11/20 04:00 77 05/11/20 04:00 97.9 77 22 106/69 (81) 92 05/11/20 00:00 72 05/11/20 00:00 99.1 74 23 122/63 (82) 91 05/10/20 21:00 Nasal Cannula 2.0 Nasal Cannula 2.0 05/10/20 20:00 83 05/10/20 20:00 98.1 74 22 109/38 (61) 95 05/10/20 17:02 77 99/76 05/10/20 16:00 77 05/10/20 16:00 97.7 96 22 99/76 (84) 96 05/10/20 14:52 97.9 05/10/20 12:00 97.9 72 22 95/54 (68) 95 05/10/20 12:00 83 05/10/20 09:41 84 119/69 05/10/20 09:00 Nasal Cannula 2.0 Nasal Cannula 2.0 Intake and Output 05/10/20 05/11/20 19:00 07:00 Intake Total 180 ml Balance 180 ml Intake Oral 180 ml # Voids 3 1 # Bowel Movements 1 Objective deferred due to COVID Microbiology Date/Time Source Procedure Growth Status 05/09/20 14:31 Nasopharynx SARS-CoV-2 RdRp Gene Assay - Final Complete Laboratory Tests 05/10/20 08:20: Sodium Level 132L, Potassium Level 4.4, Chloride Level 95L, Carbon Dioxide Level 24, Anion Gap 13, Blood Urea Nitrogen 70H, Creatinine 3.4H, Estimat Glomerular Filtration Rate 15.8, Glucose Level 154H, Calcium Level 9.9, Total Bilirubin 0.6, Aspartate Amino Transf (AST/SGOT) 24, Alanine Aminotransferase ( ALT/SGPT) 96H, Alkaline Phosphatase 232H, Total Protein 7.7, Albumin 2.9L, Globulin 4.8, Albumin/Globulin Ratio 0.6L Current Medications Medications (Trade) Dose Ordered Sig/Ghislaine Route PRN Reason Start Time Stop Time Status Last Admin Dose Admin Acetaminophen (Tylenol) 500 mg Q4H PRN ORAL Mild Pain (Pain Scale 1-3) 05/03/20 10:45 06/02/20 10:44 05/10/20 14:22 Albuterol Sulfate (Proventil MDI) 2 puff Q4H PRN INH Shortness of Breath 05/03/20 09:00 08/01/20 08:59 05/09/20 09:58 Apixaban (Eliquis) 2.5 mg BID ORAL 05/03/20 18:00 08/01/20 17:59 05/10/20 17:03 Aspirin (Ecotrin) 81 mg DAILY ORAL 05/03/20 16:00 06/17/20 15:59 05/10/20 09:42 Diltiazem HCl (Cardizem CD) 180 mg BID ORAL 05/07/20 09:00 06/06/20 08:59 05/10/20 09:41 Methylprednisolone Sodium Succinate (Solu-MEDROL) 60 mg DAILY IVP 05/08/20 09:00 08/06/20 08:59 05/10/20 09:41 Pantoprazole (Protonix) 40 mg DAILY ORAL 05/03/20 16:00 06/02/20 15:59 05/10/20 09:42 Salmeterol Xinafoate/ Fluticasone (Advair 100/50 Diskus) 1 puffs TWICE A DAY INH 05/03/20 18:00 08/01/20 17:59 05/10/20 17:02 Assessment/Plan Assessment/Plan Impression: COVID-19 Chronic obstructive pulmonary disease/Asthma Community acquired pneumonia Atrial fibrillation with RVR Elevated troponin Congestive heart Failure sinus tachycardia Hypoxemia transaminitis consider cholecystitis acute on chronic renal failure Plan ID noted IV Steroids per ID Bronchodilator therapy O2 PRN Eliquis and monitor HH Monitor labs/ await renal / PRN lasix Covid 19 Isolation- repeat swab+ reviewed care and optimize pending HIDA- never done monitor cxr and oxygen needs- watch effusion and tap PRN guarded and not ready for dc will check oxygen needs, cxr, labs and discuss dc planning impression, plan, and exam edited and reviewed in detail care discussed with Aaron Bales MD May 11, 2020 08:13
[2020-05-11] MEDS ORDERED: Acetaminophen 500mg (ES) tab ORAL PRN ×2 (08:30→12:30)
[2020-05-11] MEDS ORDERED: dilTIAZem HCl ER 180mg cap ORAL SCH ×2 (09:00→21:00)
[2020-05-11] MEDS ORDERED: Eliquis 2.5mg tablet ORAL SCH ×2 (09:00→18:00)
[2020-05-11] MEDS ORDERED: Albuterol 90mcg Inhaler 8gm INH PRN ×3 (09:00→20:00)
[2020-05-11] MEDS ORDERED: Solu-MEDROL 125mg Inj IVP SCH (09:00)
[2020-05-11] MEDS ORDERED: Aspirin EC 81mg tab ORAL SCH (09:00)
[2020-05-11] MEDS ORDERED: Wixela 100/50 Inhaler - 60 dose INH SCH ×2 (09:00→18:00)
--- NOTE | 2020-05-11 09:17 | NUR ---
NURSE NOTES: Critical Value for ABG results received from RT. Relayed lab values to Dr. Jefferson. New orders received to transfer patient to [facility], start on Bipap and repeat ABG after 1 hour. Order read back and verified. Will carry out. Notified Tow Motor Driver re transfer needed. Called RT re Bipap and was informed that d/t patient's COVID-19 status patient needs to be in [facility] for patient to receive treatment. Awaiting [facility] bed for transfer.
[2020-05-11 09:42] LABS: CREATINE KINASE 26 U/L (26-308)
[2020-05-11 10:03] LABS: CALCIUM 9.7 MG/DL (8.5-10.1); CREATININE 3.7 MG/DL (0.55-1.30); POTASSIUM 4.7 MMOL/L (3.5-5.1)
--- NOTE | 2020-05-11 11:00 | NUR ---
NURSE NOTES: Report given to DAMIAN Cruz. Endorsed POC.
--- NOTE | 2020-05-11 11:00 | NUR ---
NURSE NOTES: Received report from DAMIAN Carrizales. Patient in bed resting, SOB on NC, RT called to set up BIPAP as ordered. AOx2-3, confuse, able to make need known, stated i'm tired. equipment monitor phototypesetting on, No IV at this time. Endorsed to do ABG one hour after BIPAP. RT made aware. Bed in lowest position, side rails upx3, call light within reach, bed alarm on, Will continue to monitor.
--- NOTE | 2020-05-11 11:40 | NUR ---
RESPIRATORY NOTES PT placed on bipap @1140. Bipap settings: 15/8, 30%. No respiratory distress noted. ABG to follow in an hour. RN Anthony aware. Will continue to monitor.
--- NOTE | 2020-05-11 11:46 | Infectious Diseases Prog Note ---
Assessment/Plan Assessment/Plan antibiotics : none A 1. COVID 19 pneumonia on 2 liters O2, saturation 97 percent s/p ivermectin 9.7.20 2. renal failure 3. increased LFT 4. COPD 5. CHF 6. asthma 7. r/o cholecystitis P 1. continue solumedrol, taper off 2. will follow up cultures 3. HIDA scan pending Subjective Constitutional: Denies: fever, chills Respiratory: Reports: shortness of breath; Denies: dry cough Gastrointestinal/Abdominal: Denies: nausea, vomiting, diarrhea Musculoskeletal: Denies: pain Allergies: Coded Allergies: CIPROFLOXACIN (Verified Allergy, Unknown, 09/27/17) Objective Last 24 Hour Vital Signs Date Time Temp Pulse Resp B/P (MAP) Pulse Ox O2 Delivery O2 Flow Rate FiO2 05/11/20 09:21 72 119/59 05/11/20 08:00 98.1 72 18 119/59 (79) 97 05/11/20 04:00 77 05/11/20 04:00 97.9 77 22 106/69 (81) 92 05/11/20 00:00 72 05/11/20 00:00 99.1 74 23 122/63 (82) 91 05/10/20 21:00 Nasal Cannula 2.0 Nasal Cannula 2.0 05/10/20 20:00 83 05/10/20 20:00 98.1 74 22 109/38 (61) 95 05/10/20 17:02 77 99/76 05/10/20 16:00 77 05/10/20 16:00 97.7 96 22 99/76 (84) 96 05/10/20 14:52 97.9 05/10/20 12:00 97.9 72 22 95/54 (68) 95 05/10/20 12:00 83 Height (Feet): 5 Height (Inches): 3.00 Weight (Pounds): 160 Microbiology Date/Time Source Procedure Growth Status 05/09/20 14:31 Nasopharynx SARS-CoV-2 RdRp Gene Assay - Final Complete Laboratory Tests Test 05/11/20 07:45 05/11/20 08:24 Sodium Level 133 MMOL/L (136-145) L Potassium Level 4.7 MMOL/L (3.5-5.1) Chloride Level 97 MMOL/L (98-107) L Carbon Dioxide Level 20 MMOL/L (21-32) L Anion Gap 17 mmol/L (5-15) H Blood Urea Nitrogen 79 mg/dL (7-18) H Creatinine 3.7 MG/DL (0.55-1.30) H Estimat Glomerular Filtration Rate 14.3 mL/min (>60) Glucose Level 127 MG/DL (74-106) H Uric Acid 15.6 MG/DL (2.6-7.2) H Calcium Level 9.7 MG/DL (8.5-10.1) Total Creatine Kinase 26 U/L (26-308) Arterial Blood pH 7.203 (7.350-7.450) Arterial Blood Partial Pressure CO2 63.7 mmHg (35.0-45.0) *H Arterial Blood Partial Pressure O2 85.5 mmHg (75.0-100.0) Arterial Blood HCO3 24.5 mmol/L (22.0-26.0) Arterial Blood Oxygen Saturation 95.0 % (95-100) Arterial Blood Base Excess -4.7 (-2-2) L Francisco J Test Positive Current Medications Medications (Trade) Dose Ordered Sig/Ghislaine Route PRN Reason Start Time Stop Time Status Last Admin Dose Admin Acetaminophen (Tylenol) 500 mg Q4H PRN ORAL Mild Pain (Pain Scale 1-3) 05/11/20 08:30 06/02/20 08:29 Albuterol Sulfate (Proventil MDI) 2 puff Q4H PRN INH Shortness of Breath 05/11/20 09:00 08/01/20 08:59 Apixaban (Eliquis) 2.5 mg BID ORAL 05/11/20 09:00 08/01/20 17:59 05/11/20 09:21 Aspirin (Ecotrin) 81 mg DAILY ORAL 05/11/20 09:00 06/17/20 15:59 05/11/20 09:20 Diltiazem HCl (Cardizem CD) 180 mg Q12HR ORAL 05/11/20 09:00 06/10/20 08:59 05/11/20 09:21 Methylprednisolone Sodium Succinate (Solu-MEDROL) 60 mg DAILY IVP 05/11/20 09:00 08/06/20 08:59 Pantoprazole (Protonix) 40 mg DAILY ORAL 05/11/20 09:00 06/02/20 15:59 05/11/20 09:22 Salmeterol Xinafoate/ Fluticasone (Advair 100/50 Diskus) 1 puffs TWICE A DAY INH 05/11/20 09:00 08/01/20 17:59 05/11/20 09:21 Camilo Cameron MD May 11, 2020 11:46
--- NOTE | 2020-05-11 12:47 | NUR ---
RD ASSESSMENT & RECOMMENDATIONS SEE CARE ACTIVITY FOR COMPLETE ASSESSMENT DAILY ESTIMATED NEEDS: Needs based on Pulmonary, 56kg abw 25-30 kcals/kg 3962-9450 total kcals 1-1.5 g protein/kg 56-84 g total protein 25-30 mL/kg 3678-2053 total fluid mLs NUTRITION DIAGNOSIS: Altered nutrition related lab values r/t clinical status as evidenced by elev BUN(79), creat(3.7) trending up, critical ABG (low pH, elev CO2). CURRENT DIET: Cardiac PO DIET RECOMMENDATIONS: Low Na diet, texture per [facility] OFFICER ADDITIONAL RECOMMENDATIONS: 1) Poor po intake, now on bipap. -> Rec [facility] OFFICER for texture eval for aspiration risk 2) Monitor lytes w/ renal fxn, BUN and creat trending up 3) Rec niss w/ solumedrol (BG 127-176) 4) Add Ensure TID w/ meals
--- NOTE | 2020-05-11 13:21 | Cardiology Report ---
APPROVED REPORT EXAM: Two-dimensional and M-mode echocardiogram with Doppler and color Doppler. INDICATION Atrial Fibrillation M-Mode DIMENSIONS IVSd1.1 (0.7-1.1cm)Left Atrium (MM)4.0 (1.6-4.0cm) LVDd4.0 (3.5-5.6cm)Aortic Root2.9 (2.0-3.7cm) PWd1.1 (0.7-1.1cm)Aortic Cusp Exc.1.7 (1.5-2.0cm) IVSs1.6 cmEPSS1.7 (>1.0cm) LVDs3.2 (2.5-4.0cm) PWs1.5 cm <Conclusion> Global left ventricular hypokinesis. Normal left ventricular chamber size. Left ventricular ejection fraction estimated to be 40 %. Mild left ventricular hypertrophy. Moderate pleural effusion. Left atrial size at upper limits of normal. Right atrial size mildly enlarged. Right ventricular chamber size is within normal limits. Focal aortic valve sclerosis with adequate cusp excursion. Thickened mitral valve leaflets with normal excursion. Mild mitral annulus and aortic root calcification. Normal pulmonic valve structure. Normal tricuspid valve structure. IVC dilated at 2.3 cm and physiological collapse with respiration suggestive of increased RA pressure. A color flow and spectral Doppler study was performed and revealed: Trace aortic insufficiency. Moderate to severe mitral regurgitation. Can not determine left ventricular diastolic function by mitral diastolic velocities due to atrial fibrillation. Severe tricuspid regurgitation. Tricuspid systolic velocities suggests peak right ventricular systolic pressure of 60 mmHg, consistent with severe pulmonary hypertension. Mild pulmonic regurgitation present.
--- NOTE | 2020-05-11 15:00 | NUR ---
NURSE NOTES: Paged Dr. Jefferson regarding ABG result, per MD change BIPAP setting 20/12 ABG in one hour STAT chest x-ray. Order noted, entered, carried out.
--- NOTE | 2020-05-11 15:45 | Diagnostic Imaging Report ---
Indication: Shortness of breath Technique: XRAY Chest 1v Comparison: 05/10/2020 Findings: Heart size is stable. There is no significant interval change in extensive bilateral airspace disease, left greater than right. Probable layering left pleural effusion is again seen, possibly loculated. No pneumothorax. Osseous structures are stable. IMPRESSION: Bilateral infiltrates concerning for multifocal pneumonia, not significant changed compared to one day prior.
--- NOTE | 2020-05-11 16:09 | NUR ---
CASE MANAGEMENT:REVIEW SI;NSTEMI. COVID PNEMONIA. 99.1 22 119/59 93% BiPAP FIO2 40% NA 133 CL 97 CO2 20 BUN 79 CR 3.7 URIC ACID 15.6 IS;ASA PO QD IV SOLU MEDROL QD PROTONIX PO QD DILTIAZEM PO Q12 ADVAIR INH BID TRANSFERRED FROM MED SURG TO [facility] 05/11/20 @ 0812 [facility] STATUS DCP;FROM HOME
--- NOTE | 2020-05-11 16:34 | Surgery Progress Note ---
Surgery Progress Note Subjective Additional Comments lfts resolved labs improved repeat COVID ++ Objective Last 24 Hour Vital Signs Date Time Temp Pulse Resp B/P (MAP) Pulse Ox O2 Delivery O2 Flow Rate FiO2 05/11/20 14:31 72 05/11/20 13:21 40 05/11/20 12:00 97.5 69 22 114/62 (79) 97 05/11/20 12:00 Bi-pap 15.0 Bi-pap 4.0 05/11/20 11:40 73 20 93 30 05/11/20 11:40 73 20 93 Bi-Pap 30 05/11/20 09:21 72 119/59 05/11/20 09:00 Nasal Cannula 2.0 Nasal Cannula 2.0 05/11/20 08:00 98.1 72 18 119/59 (79) 97 05/11/20 04:00 77 05/11/20 04:00 97.9 77 22 106/69 (81) 92 05/11/20 00:00 72 05/11/20 00:00 99.1 74 23 122/63 (82) 91 05/10/20 21:00 Nasal Cannula 2.0 Nasal Cannula 2.0 05/10/20 20:00 83 05/10/20 20:00 98.1 74 22 109/38 (61) 95 05/10/20 17:02 77 99/76 I&O Intake and Output 05/10/20 05/11/20 19:00 07:00 Intake Total 180 ml Balance 180 ml Intake Oral 180 ml # Voids 3 1 # Bowel Movements 1 Cardiovascular: RSR Respiratory: decreased breath sounds Abdomen: soft, non-tender, present bowel sounds Extremities: no edema, no tenderness, no cyanosis Laboratory Tests Test 05/11/20 07:45 05/11/20 08:24 05/11/20 12:54 Sodium Level 133 MMOL/L (136-145) L Potassium Level 4.7 MMOL/L (3.5-5.1) Chloride Level 97 MMOL/L (98-107) L Carbon Dioxide Level 20 MMOL/L (21-32) L Anion Gap 17 mmol/L (5-15) H Blood Urea Nitrogen 79 mg/dL (7-18) H Creatinine 3.7 MG/DL (0.55-1.30) H Estimat Glomerular Filtration Rate 14.3 mL/min (>60) Glucose Level 127 MG/DL (74-106) H Uric Acid 15.6 MG/DL (2.6-7.2) H Calcium Level 9.7 MG/DL (8.5-10.1) Total Creatine Kinase 26 U/L (26-308) Arterial Blood pH 7.203 (7.350-7.450) 7.245 (7.350-7.450) Arterial Blood Partial Pressure CO2 63.7 mmHg (35.0-45.0) *H 56.4 mmHg (35.0-45.0) *H Arterial Blood Partial Pressure O2 85.5 mmHg (75.0-100.0) 65.0 mmHg (75.0-100.0) L Arterial Blood HCO3 24.5 mmol/L (22.0-26.0) 23.9 mmol/L (22.0-26.0) Arterial Blood Oxygen Saturation 95.0 % (95-100) 90.3 % (95-100) L Arterial Blood Base Excess -4.7 (-2-2) L -4.2 (-2-2) L Francisco J Test Positive Positive Plan Problems: (1) Elevated troponin (2) Atrial fibrillation with RVR (3) COVID-19 Assessment & Plan: ++ as per pulm and ID (4) Community acquired pneumonia (5) COPD (chronic obstructive pulmonary disease) (6) Pulmonary fibrosis (7) Asthma (8) History of asthma (9) NSTEMI (non-ST elevated myocardial infarction) (10) Moderate to severe pulmonary hypertension (11) Asthma exacerbation (12) Abnormal LFTs Assessment & Plan: afebrile, HD stable labs noted lft's elevated US reviewed exam benign gb likely reactive from underlying pathology unlikely cholecystitis clinically fluid overload trend labs will monitor exam clinically covid + prognosis guarded cxr reviewed on abx Gallbladder demonstrates wall thickening and wall edema, gallbladder wall measuring up to 6 mm thick. There are gallstones. Sonographic Escoto's sign is negative. Common bile duct measures 3 mm in diameter. No intrahepatic biliary ductal dilatation. Liver demonstrates normal echogenicity, no focal abnormality. Portal vein and hepatic veins are patent. Pancreas is unremarkable. Spleen is unremarkable. Left kidney measures 9.2 cm in length. Right kidney measures 9.9 cm length. Both kidneys demonstrate normal echogenicity. There is no hydronephrosis. Small cyst is seen in the right kidney. . Abdominal aorta was not imaged . There is trace ascites. There is a small right pleural effusion incidentally noted Impression: Small right pleural effusion. Trace ascites Cholelithiasis. Gallbladder wall thickening may be related to hemodynamic factors causing the pleural fluid and ascites, but could also indicate acute cholecystitis. Consider nuclear medicine hepatobiliary scan if there is high clinical suspicion. Negative for dilated bile ducts Small right renal cyst incidentally noted (13) Acute respiratory failure with hypoxia Quentin Sanchez May 11, 2020 16:34
--- NOTE | 2020-05-11 18:12 | NUR ---
NURSE NOTES: Paged Dr. Jefferson regarding result fo ABG, per Dr. Jefferson, transfer patient to ICU. CN made aware.
--- NOTE | 2020-05-11 18:15 | Diagnostic Imaging Report ---
EXAM: XR Chest, 1 View CLINICAL HISTORY: SOB TECHNIQUE: Frontal view of the chest. COMPARISON: Chest radiograph on 05/11/2020 at 1016 hrs. FINDINGS: Hardware: None. Lungs/pleura: Patchy consolidations in left greater than right lungs, slightly increased compared to prior exam. Similar left pleural effusion. Heart/mediastinum: Atherosclerotic calcifications of the aorta. Cardiac silhouette is obscured by the left lung consolidations. Soft tissues: Unremarkable. Bones: No acute fracture. Degenerative changes of the acromioclavicular joints. Upper abdomen: Normal. IMPRESSION: Patchy consolidations in left greater than right lungs, slightly increased compared to prior exam. Similar left pleural effusion.
[2020-05-11] MEDS ORDERED: D5 1/2NS 1000ml IV ONE (18:40)
--- NOTE | 2020-05-11 18:56 | NUR ---
NURSE NOTES: Patient was not producing urine, US bladder done, 94ml.
[2020-05-11] MEDS ORDERED: Vancomycin 1.25gm/NS Premix IVPB ONE (19:30)
[2020-05-11] MEDS ORDERED: Vancomycin 1.25gm/NS Premix 275 ML IVPB ONE (20:00)
--- NOTE | 2020-05-11 20:02 | NUR ---
NURSE NOTES: Called and notified MD Jefferson patient has been transfer to ICU now. ordered Stat ABG for possible intubation.
--- NOTE | 2020-05-11 20:06 | NUR ---
NURSE NOTES: RECEIVED PATIENT FROM [facility] NURSE DAMIAN LESTER VIA HOSPITAL BED. PATIENT LETHARGIC, NO RESPONSE TO VERBALLY STIMULI, WEAKLY OPEN EYES TO TACTILE STIMULI, DID NOT FOLLOW COMMANDS AT THIS TIME, ON BIPAP I/E 16/08, FIO2 40 % STATUS, O2 SATURATION OVER 96% NOTED, HR 80'S/MIN SR NOTED, ABDOMEN SOFT, NO N/V NOTED, GENERALIZED EDEMA STATUS, PPL TO LEFT AC 20G, INTACT AND PATENT, MADE LOWER BED POSITION, ON BED ALARM AND LOCKED, WILL CONTINUE TO MONITOR.
--- NOTE | 2020-05-11 20:06 | NUR ---
TRANSFER TO FLOOR: Patient transferred to ICU, per Dr. Jefferson. Report given to DAMIAN Hughes. Belongings and medications given to DAMIAN Hughes. Family and or S/O informed of transfer.
--- NOTE | 2020-05-11 20:08 | NUR ---
RESPIRATORY NOTE: Received pt on BiPAP 16/08, back up rate 14, 40%. Pt is on a Facial mask, skin intact, no redness/breakdowns noted. Pt awake/disoriented. B/S migel. diminished, nonproductive cough. Pt just transferred to ICU per MD order. ABG to be drawn. BiPAP plugged into red outlet, alarms on & audible. Ambubag at bedside. Pt in no apparent distress at this time. Will continue to monitor pt.
--- NOTE | 2020-05-11 20:20 | NUR ---
NURSE NOTES: Patient Daughter Heike called at this time. Informed her about mothers transfer and current status. Possible intubation. she would like to speak with MD Jefferson at this time. Informed her I will let him know when I call him.
--- NOTE | 2020-05-11 20:25 | NUR ---
NURSE NOTES: Spoke with SHREYA Jefferson at this time. Informed him about patients ABG results. Patient is able to open eyes but very lethargic. Her rate on the bi-pap is 29. volumes on the bi-pap are less than 250. MD ordered to intubate and he will call ER MD at this time. Also informed him patients daughter would like to speak to him. Phone number provided.
--- NOTE | 2020-05-11 20:55 | NUR ---
NURSE NOTES: LE: ER DR. MAYA, INTUBATION WAS DONE, ETT 7.5, LIP LINE 23CM, VENT SETTING AC 14/TV 500/FIO2 100%/PEEP 5, O2 SATURATION 100% NOTED, HR 93/MIN SR NOTED AT THIS TIME, KEPT HOB 30 DEGREES AND ASPIRATION PRECAUTION, WILL CONTINUE TO MONITOR. Addendum: 05/11/20 at 2313 by YOLI MAST RN NURSE NOTES: LE: ER DR. MAYA, INTUBATION WAS DONE, ETT 7.5, LIP LINE 22CM, VENT SETTING AC 14/TV 500/FIO2 100%/PEEP 5, O2 SATURATION 100% NOTED, HR 93/MIN SR NOTED AT THIS TIME, KEPT HOB 30 DEGREES AND ASPIRATION PRECAUTION, WILL CONTINUE TO MONITOR.
[2020-05-11] MEDS ORDERED: Piperacillin/Tazobactam 3.375 GM in NS 110 ML IVPB SCH (21:00)
[2020-05-11] MEDS: dilTIAZem HCl ER 180mg cap ORAL SCH (21:00)
--- NOTE | 2020-05-11 21:00 | NUR ---
RESPIRATORY NOTE: Pt intubated per MD order post ABG draw (see lab for results). Pt intubated by MD Elias @ 5 w/ ETT 7.5 @ 22cm lipline, secured by anchorfast. Cavilon skin barrier applied to cheeks prior to placing anchorfast to prevent skin irritations. Pt placed on ventilator w/ settings: AC 14, 500VT, 100%, PEEP +5. Pt tolerated well, no incidents noted. Vent plugged into red outlet, ambubag at bedside. Will continue to monitor pt.
--- NOTE | 2020-05-11 21:05 | Emergency Room Report ---
History of Present Illness General Chief Complaint: Dyspnea/Respdistress Source: Patient, Medical Record, PMD Present Illness Allergies: Coded Allergies: CIPROFLOXACIN (Verified Allergy, Unknown, 09/27/17) COVID-19 Screening Contact w/high risk pt: Yes Experienced COVID-19 symptoms?: Yes COVID-19 symptoms experienced: Shortness of Breath COVID-19 Testing performed BRIDGE MAINTAINER: No COVID-19 Screening: Positive COVID-19 Patient History Last Menstrual Period: na Nursing Documentation-PMH Past Medical History: No History, Except For Hx Cardiac Problems: Yes - CHF Hx Asthma: Yes Hx Cancer: No Hx Gastrointestinal Problems: No Hx Neurological Problems: No Physical Exam Vital Signs Date Time Temp Pulse Resp B/P (MAP) Pulse Ox O2 Delivery O2 Flow Rate FiO2 05/07/20 08:00 123 05/07/20 08:00 97.5 22 132/69 (90) 95 05/07/20 09:00 Nasal Cannula 2.0 05/11/20 11:40 30 Procedures Intubation Intubation : Consent: Emergent Time of Intubation: 20:55 Tube Size (cm): 7.0 Medications: Etomidate, Rocuronium Breath Sounds after Intubation: equal Post Intubation Xray: Yes Attempts: One Patient Tolerated: Well Complications: None Progress Patient intubated with video laryngoscopy X 1 ETT secured to 22 cm. Patient started on ventilator. Was noted to have moderate amount of dried blood to oropharynx. Patient tolerated procedure well. Full protective equipment worn. Medical Decision Making Diagnostic Impression: Primary Impression: COPD (chronic obstructive pulmonary disease) Additional Impressions: Atrial fibrillation with RVR COVID-19 Community acquired pneumonia Elevated troponin Last Vital Signs Date Time Temp Pulse Resp B/P (MAP) Pulse Ox O2 Delivery O2 Flow Rate FiO2 05/11/20 20:00 73 29 99 40 05/11/20 16:00 Bi-pap 4.0 Bi-pap 4.0 05/11/20 16:00 97.0 129/77 (94) Disposition: ADMITTED INPATIENT Condition: Serious Referrals: NON PHYSICIAN (PCP) Shahbaz Griffin MD May 11, 2020 21:05
--- NOTE | 2020-05-11 21:35 | NUR ---
NURSE NOTES: Patients Daughter called back for updates. Provided for daughter. Visiting hours also provided. She will call back in an hour.
--- NOTE | 2020-05-11 21:41 | Diagnostic Imaging Report ---
EXAM: XR Chest, 1 View CLINICAL HISTORY: TUBE PLCMT TECHNIQUE: Frontal view of the chest. COMPARISON: 05/11/2020 at 1736 hrs. FINDINGS: Lungs: Worsening bilateral extensive multifocal consolidations concerning for multifocal pneumonia with near complete opacification of the left midlung and base and worsening right mid lung opacities. Pleural space: Small left pleural effusion likely. No pneumothorax. Heart: Cardiac mediastinal silhouette obscured. Mediastinum: See above. Bones/joints: No acute abnormality Tubes, lines and devices: ETT 0.7 cm above lico, recommend retraction 3-4 centimeters. Enteric tube with tip and proximal sideport below the gastroesophageal junction. IMPRESSION: 1. ETT 0.7 cm above lico, recommend retraction 3-4 centimeters. 2. Enteric tube with tip and proximal sideport below the gastroesophageal junction. 3. Worsening bilateral extensive multifocal consolidations concerning for multifocal pneumonia with near complete opacification of the left midlung and base and worsening right mid lung opacities. 4. Small left pleural effusion likely. 5. Cardiac mediastinal silhouette obscured. <MYCVCSECTION> Communications: 05/11/20 21:49 Call Doctor Regarding Life Threatening Misplaced Tube or Line, called Dr. Jefferson on 05/11 21:49 (-07:00)
--- NOTE | 2020-05-11 21:48 | NUR ---
NURSE NOTES: Stat Rad called at this time. They would like to speak with MD Jefferson. Number received and provided to MD Jefferson.
--- NOTE | 2020-05-11 21:49 | NUR ---
NURSE NOTES: MD Jefferson called back to pull out ETT 2cm.
[2020-05-11] MEDS: Piperacillin/Tazobactam 3.375 GM in NS 110 ML IVPB SCH (21:54)
[2020-05-11] MEDS: Wixela 100/50 Inhaler - 60 dose INH SCH (21:55)
--- NOTE | 2020-05-11 22:00 | NUR ---
NURSE NOTES: LE: INSERTED OGT AND KLINE CATHETER AT 2140PM. PATIENT MORE AWOKE, TRIED TO TOUCH ENDOTUBE, APPLIED 2 POINT SOFT RESTRAINTS, WILL CONTINUE TO MONITOR.
--- NOTE | 2020-05-11 22:03 | NUR ---
RESPIRATORY NOTE: MD order to pull out ETT 2cm post CXR. Pt's lipline now at 20cm. Pt tolerated well. SXN small to moderate amounts of thick, bloody secretions w/ occasional clots. No distress noted at this time. Will continue to monitor pt.
[2020-05-11] MEDS ORDERED: Morphine Sulfate 4mg/ml Inj (IV USE ONLY) IVP PRN (22:30)
[2020-05-11] MEDS ORDERED: Morphine Sulfate 2mg/ml Inj(IV/IM USE ONLY) IVP PRN (22:30)
--- NOTE | 2020-05-11 22:30 | NUR ---
NURSE NOTES: LE: PHONE CALL FROM PT'S DAUGHTER (DAHLIA) REGARDING PT'S SITUATION THAT UPDATED QUESTION, LET HER KNEW 2 POINT SOFT RESTRAINTS, WAS AWARE. SHE SAID, WILL CALL AGAIN AROUND 0030AM.
[2020-05-11 22:42] LABS: APPEARANCE,URINE CLOUDY; BILIRUBIN, URINE NEGATIVE (NEGATIVE); GLUCOSE, URINE (UA) NEGATIVE (NEGATIVE); KETONES,URINE 1+ (NEGATIVE); LEUKOCYTE ESTERASE ,URINE NEGATIVE (NEGATIVE); NITRITE,URINE NEGATIVE (NEGATIVE); PH,URINE 5 (4.5-8.0); PROTEIN,URINE 3+ (NEGATIVE); UROBILINOGEN,URINE NORMAL MG/DL (0.0-1.0)
[2020-05-11 22:43] LABS: COLOR,URINE YELLOW
--- NOTE | 2020-05-11 22:51 | Diagnostic Imaging Report ---
EXAM: XR Chest, 1 View CLINICAL HISTORY: TUBE PLCMT TECHNIQUE: Frontal view of the chest. COMPARISON: Chest radiograph on 05/11/2020 FINDINGS: Hardware: Interval placement of an endotracheal tube which terminates in the region of the mid thoracic trachea, approximately 4.4 cm above the lico. Interval placement of an enteric tube which courses past the diaphragm and out of the field of view. The sidehole appears to be at the edge of the [id number] in the region of the stomach. Lungs/pleura: Similar left pleural effusion. Slightly increased patchy opacities and consolidations throughout the lungs, worst in the left mid and lower lung. Heart/mediastinum: Stable mild enlargement of the cardiac silhouette. Atherosclerotic calcifications of the aorta. Soft tissues: Unremarkable. Bones: No acute fracture. Upper abdomen: Normal. IMPRESSION: 1. Interval placement of an endotracheal tube which terminates in the region of the mid thoracic trachea, approximately 4.4 cm above the lico. Interval placement of an enteric tube which courses past the diaphragm and out of the field of view. The sidehole appears to be at the edge of the [id number] in the region of the stomach. 2. Similar left pleural effusion. Slightly increased patchy opacities and consolidations throughout the lungs, worst in the left mid and lower lung.
[2020-05-12] VITALS (26 sets, daily range): BP systolic 93–133; BP diastolic 43–74
--- NOTE | 2020-05-12 00:10 | NUR ---
NURSE NOTES: PATIENT ASLEEP AND VSS STATUS, NO PIN OR SOB NOTED AT THIS TIME, WILL CONTINUE TO MONITOR.
--- NOTE | 2020-05-12 01:03 | Cardiology Progress Note ---
Subjective DATE OF SERVICE: May 11, 2020 Condition has deteriorated; patient with persisting acute respiratory acidosis. As such, she has req'd intubation and [facility] ventilation. Monitor: AFib with episodes of RVR and nonsustained VTach. Lactic acidosis resolved BP has dropped as well with deterioration of acid-base status. Objective Last 24 Hour Vital Signs Date Time Temp Pulse Resp B/P (MAP) Pulse Ox O2 Delivery O2 Flow Rate FiO2 05/12/20 00:30 93 18 110/49 (69) 99 05/12/20 00:00 91 05/12/20 00:00 97.2 91 20 96/49 (65) 100 05/12/20 00:00 Mechanical Ventilator Mechanical Ventilator 05/11/20 23:30 84 17 108/49 (68) 100 05/11/20 23:16 86 18 40 05/11/20 23:00 83 15 111/48 (69) 100 05/11/20 22:30 82 14 103/44 (63) 100 05/11/20 22:00 79 15 105/43 (63) 100 05/11/20 21:30 97.0 79 14 94/51 (65) 100 05/11/20 21:00 86 93/51 05/11/20 21:00 85 14 98/50 (66) 100 05/11/20 20:55 84 14 100 05/11/20 20:53 87 19 104/46 (65) 100 05/11/20 20:45 73 25 92/72 (79) 100 05/11/20 20:30 72 28 113/50 (71) 100 05/11/20 20:23 77 28 119/57 (77) 99 05/11/20 20:15 94.0 76 23 123/56 (78) 99 05/11/20 20:06 76 05/11/20 20:06 Bi-pap Bi-pap 05/11/20 20:02 83 26 129/47 (74) 100 05/11/20 20:00 73 29 99 40 05/11/20 16:55 75 29 98 40 05/11/20 16:00 Bi-pap 4.0 Bi-pap 4.0 05/11/20 16:00 77 05/11/20 16:00 97.0 84 22 129/77 (94) 99 05/11/20 15:00 84 33 97 40 05/11/20 14:31 72 05/11/20 13:21 40 05/11/20 12:00 97.5 69 22 114/62 (79) 97 05/11/20 12:00 Bi-pap 15.0 Bi-pap 4.0 05/11/20 11:40 73 20 93 30 05/11/20 11:40 73 20 93 Bi-Pap 30 05/11/20 09:21 72 119/59 05/11/20 09:00 Nasal Cannula 2.0 Nasal Cannula 2.0 05/11/20 08:00 98.1 72 18 119/59 (79) 97 05/11/20 04:00 77 05/11/20 04:00 97.9 77 22 106/69 (81) 92 ROS: unchanged from my eval of 05/03/20 HEENT: Orally intubated, Mechanically Ventilated, Thin secretions ET Tube LUNGS: no accessory muscle use, expiratory wheezing, diminished breath sounds CARDIAC: normal S1 and S2, no murmur, irregularly irregular ABDOMEN: normal bowel sounds, non tender, soft, no organomegaly EXTREMITIES: no calf tenderness, +1 edema Laboratory Tests Test 05/11/20 07:45 05/11/20 08:24 05/11/20 12:54 05/11/20 17:48 Sodium Level 133 MMOL/L (136-145) L Potassium Level 4.7 MMOL/L (3.5-5.1) Chloride Level 97 MMOL/L (98-107) L Carbon Dioxide Level 20 MMOL/L (21-32) L Anion Gap 17 mmol/L (5-15) H Blood Urea Nitrogen 79 mg/dL (7-18) H Creatinine 3.7 MG/DL (0.55-1.30) H Estimat Glomerular Filtration Rate 14.3 mL/min (>60) Glucose Level 127 MG/DL (74-106) H Uric Acid 15.6 MG/DL (2.6-7.2) H Calcium Level 9.7 MG/DL (8.5-10.1) Total Creatine Kinase 26 U/L (26-308) Arterial Blood pH 7.203 (7.350-7.450) 7.245 (7.350-7.450) 7.220 (7.350-7.450) Arterial Blood Partial Pressure CO2 63.7 mmHg (35.0-45.0) *H 56.4 mmHg (35.0-45.0) *H 53.0 mmHg (35.0-45.0) H Arterial Blood Partial Pressure O2 85.5 mmHg (75.0-100.0) 65.0 mmHg (75.0-100.0) L 100.4 mmHg (75.0-100.0) H Arterial Blood HCO3 24.5 mmol/L (22.0-26.0) 23.9 mmol/L (22.0-26.0) 21.2 mmol/L (22.0-26.0) L Arterial Blood Oxygen Saturation 95.0 % (95-100) 90.3 % (95-100) L 97.1 % (95-100) Arterial Blood Base Excess -4.7 (-2-2) L -4.2 (-2-2) L -6.9 (-2-2) L Francisco J Test Positive Positive Positive Test 05/11/20 20:01 05/11/20 21:49 05/11/20 22:00 Arterial Blood pH 7.241 (7.350-7.450) 7.430 (7.350-7.450) Arterial Blood Partial Pressure CO2 55.1 mmHg (35.0-45.0) *H 29.3 mmHg (35.0-45.0) L Arterial Blood Partial Pressure O2 99.6 mmHg (75.0-100.0) 544.3 mmHg (75.0-100.0) H Arterial Blood HCO3 23.1 mmol/L (22.0-26.0) 19.0 mmol/L (22.0-26.0) L Arterial Blood Oxygen Saturation 96.8 % (95-100) 99.9 % (95-100) Arterial Blood Base Excess -4.9 (-2-2) L -4.0 (-2-2) L Francisco J Test Positive Positive Urine Color Yellow Urine Appearance Cloudy Urine pH 5 (4.5-8.0) Urine Specific [place] 1.025 (1.005-1.035) Urine Protein 3+ (NEGATIVE) H Urine Glucose (UA) Negative (NEGATIVE) Urine Ketones 1+ (NEGATIVE) H Urine Blood 4+ (NEGATIVE) H Urine Nitrite Negative (NEGATIVE) Urine Bilirubin Negative (NEGATIVE) Urine Urobilinogen Normal MG/DL (0.0-1.0) Urine Leukocyte Esterase Negative (NEGATIVE) Urine RBC 10-15 /HPF (0 - 2) H Urine WBC 0-2 /HPF (0 - 2) Urine Squamous Epithelial Cells Few /LPF (NONE/OCC) Urine Amorphous Sediment Moderate /LPF (NONE) H Urine Bacteria Moderate /HPF (NONE) H Urine Random Sodium < 20 mmol/L (20-110) L Urine Creatinine 171.3 MG/DL (30.0-125.0) H Microbiology Date/Time Source Procedure Growth Status 05/09/20 14:31 Nasopharynx SARS-CoV-2 RdRp Gene Assay - Final Complete Assessment/Plan Assessment/Plan Acute on chronic respiratory acidosis Acute respiratory failure Shock LE edema due to severe pulmonary hypertension and right heart strain COPD exacerb with active bronchospasm Lactic acidosis COVID 19 PNA Acute on chr renal failure - now with hyperkalemia Chronic systolic/diastolic CHF Pulmonary fibrosis with chronic hypoxia Paroxysmal AFib with RVR Hx Multifocal atrial arrhythmias Pulmonary HTN - severe Hx NSVTach Acute myocardial ischemia Vent support Hold diltiazem for low BP Steroids per pulmonary Inhaled bronchodilators IVF adjusted Reassess for diuresis. Full anticoagulation for cardioembolic prophyl Isolation Anti-viral rx per Simone Shirley MD May 12, 2020 01:03
--- NOTE | 2020-05-12 02:10 | NUR ---
NURSE NOTES: PATIENT ASLEEP STATUS, VSS, O2 SATURATION 100% NOTED AT THIS TIME, WILL CONTINUE TO MONITOR.
--- NOTE | 2020-05-12 03:35 | NUR ---
NURSE NOTES: PHONE CALL FROM PT'S DAUGHTER (DAHLIA) REGARDING PT'S SITUATION, ANSWERED QUESTIONS THAT PATIENT IS SLEEPING STATUS, V/S AND VENTILATOR.
--- NOTE | 2020-05-12 04:30 | NUR ---
NURSE NOTES: MORNING CARE WAS DONE, NO BM STATUS.
[2020-05-12 06:04] LABS: ALBUMIN 2.3 G/DL (3.4-5.0); ALBUMIN/GLOBULIN RATIO 0.6 (1.0-2.7); BILIRUBIN,TOTAL 1.2 MG/DL (0.2-1.0); CALCIUM 9.1 MG/DL (8.5-10.1); CREATININE 3.8 MG/DL (0.55-1.30); POTASSIUM 4.2 MMOL/L (3.5-5.1)
--- NOTE | 2020-05-12 06:20 | NUR ---
NURSE NOTES: SEEN THE PATIENT BY DR. HUNTER.
--- NOTE | 2020-05-12 06:35 | NUR ---
NURSE NOTES: PHONE CALL FROM PT'S DAUGHTER (DAHLIA) REGARDING PT'S SITUATION, ANSWERED QUESTIONS THAT PATIENT IS SLEEPING STATUS, V/S AND VENTILATOR. SHE SAID, WILL BE CALL BACK AGAIN.
--- NOTE | 2020-05-12 07:20 | NUR ---
NURSE HAND-OFF REPORT: Latest Vital Signs: Temperature 98.2 , Pulse 104 , B/P 103 /44 , Respiratory Rate 18 , O2 SAT 100 , Mechanical Ventilator, O2 Flow Rate 4.0 . Vital Sign Comment: EKG Rhythm: Sinus Tachycardia Rhythm change?: N Notified?: Tracy cardoso MD Response: No New Orders Received Latest Lechuga Fall Score: 50 Fall Risk: High Risk Safety Measures: Call light Within Reach, Bed Alarm Zone 1, Side Rails Side Rails x3, Bed position Low and Locked. Fall Precautions: Yellow Socks Door Sign Patient Fall Education Report given to Franky HUTSON RN.
--- NOTE | 2020-05-12 07:30 | NUR ---
NURSE NOTES: Patient received from Saul RN. Patient stable at this time. HR is elevated consistent with baseline in 120's. Cardiac sounds benign. ST on threat monitoring analyst. ETT in place 7.5 at 20 lip line. Vent settings AC 14 500mL 40% P5. Patient now has OG tube. Feeding order received but unable to start due to feeding pumps unavailable. [place] draining dark alma urine. Patient has LT AC 20 that is drawing blood. TKO at this time. Flushed ant patent with dressing dry and intact. Patient taken off anthony hugger at this time due to elevated temperature of 99F. Restraints on with good ROM, sensation and circulation. BL radial pulses weak. BL pedal pulses weak as well. BL hand and feet edema +1. Side rails upx2, call light within reach, bed low and locked. Will continue to monitor.
[2020-05-12 08:10] LABS: BILIRUBIN,DIRECT 0.4 MG/DL (0.0-0.3)
[2020-05-12] MEDS: dilTIAZem HCl ER 180mg cap ORAL SCH (08:38)
[2020-05-12] MEDS: Aspirin EC 81mg tab ORAL SCH (08:38)
[2020-05-12] MEDS: Piperacillin/Tazobactam 3.375 GM in NS 110 ML IVPB SCH ×2 (08:38→20:52)
[2020-05-12] MEDS: Solu-MEDROL 125mg Inj IVP SCH (08:38)
[2020-05-12] MEDS: Eliquis 2.5mg tablet ORAL SCH ×2 (08:58→18:00)
[2020-05-12] MEDS ORDERED: Solu-MEDROL 125mg Inj IVP SCH (09:00)
[2020-05-12] MEDS ORDERED: Aspirin EC 81mg tab ORAL SCH (09:00)
--- NOTE | 2020-05-12 09:27 | General Progress Note ---
Assessment/Plan Problem List: (1) Pulmonary fibrosis ICD Codes: J84.10 - Pulmonary fibrosis, unspecified SNOMED: 00316535 (2) History of asthma ICD Codes: Z87.09 - Personal history of other diseases of the respiratory system SNOMED: 969170054 (3) Asthma ICD Codes: J45.909 - Unspecified asthma, uncomplicated SNOMED: 569973682 (4) NSTEMI (non-ST elevated myocardial infarction) ICD Codes: I21.4 - Non-ST elevation (NSTEMI) myocardial infarction SNOMED: 294295327 (5) Elevated troponin ICD Codes: R79.89 - Other specified abnormal findings of blood chemistry SNOMED: 732766055, 145222022, 443383303 (6) COPD (chronic obstructive pulmonary disease) ICD Codes: J44.9 - Chronic obstructive pulmonary disease, unspecified SNOMED: 83999522 (7) Atrial fibrillation with RVR ICD Codes: I48.91 - Unspecified atrial fibrillation SNOMED: 121985442603965 (8) Community acquired pneumonia ICD Codes: J18.9 - Pneumonia, unspecified organism SNOMED: 690501171 Status: stable Assessment/Plan: cont current rx vent support resp rx and suctioning check sputum cultures wean per pulm monitor cxr tube feeds stress ulcer prophylaxis monitor labs/renal fxn resp rx/mdi rate control with cardizem Subjective ROS Limited/Unobtainable: No Constitutional: Reports: malaise, weakness HEENT: Reports: no symptoms Cardiovascular: Reports: no symptoms Respiratory: Reports: shortness of breath, sputum Gastrointestinal/Abdominal: Reports: difficulty swallowing Genitourinary: Reports: no symptoms Neurologic/Psychiatric: Reports: no symptoms Endocrine: Reports: no symptoms Hematologic/Lymphatic: Reports: anemia Allergies: Coded Allergies: CIPROFLOXACIN (Verified Allergy, Unknown, 09/27/17) All Systems: reviewed and negative except above Subjective events noted. intubated yesterday for hypoxemia and resp acidosis. cxr with increased infiltrates. +OG tube placed. labile HR trending up. labs noted. Objective Last 24 Hour Vital Signs Date Time Temp Pulse Resp B/P (MAP) Pulse Ox O2 Delivery O2 Flow Rate FiO2 05/12/20 07:29 123 15 40 05/12/20 07:00 117 17 108/46 (66) 100 05/12/20 06:00 104 18 103/44 (63) 100 05/12/20 05:00 89 14 102/46 (64) 100 05/12/20 04:00 Mechanical Ventilator Mechanical Ventilator 05/12/20 04:00 88 05/12/20 04:00 98.2 88 14 99/47 (64) 100 05/12/20 03:30 95 18 114/53 (73) 100 05/12/20 03:15 85 14 40 05/12/20 03:00 95 14 106/47 (66) 100 05/12/20 02:00 90 14 99/47 (64) 100 05/12/20 01:00 87 17 104/50 (68) 100 05/12/20 00:30 93 18 110/49 (69) 99 05/12/20 00:00 91 05/12/20 00:00 97.2 91 20 96/49 (65) 100 05/12/20 00:00 Mechanical Ventilator Mechanical Ventilator 05/11/20 23:30 84 17 108/49 (68) 100 05/11/20 23:16 86 18 40 05/11/20 23:00 83 15 111/48 (69) 100 05/11/20 22:30 82 14 103/44 (63) 100 05/11/20 22:00 79 15 105/43 (63) 100 05/11/20 21:30 97.0 79 14 94/51 (65) 100 05/11/20 21:00 86 93/51 05/11/20 21:00 85 14 98/50 (66) 100 05/11/20 20:55 84 14 100 05/11/20 20:53 87 19 104/46 (65) 100 05/11/20 20:45 73 25 92/72 (79) 100 05/11/20 20:30 72 28 113/50 (71) 100 05/11/20 20:23 77 28 119/57 (77) 99 05/11/20 20:15 94.0 76 23 123/56 (78) 99 05/11/20 20:06 76 05/11/20 20:06 Bi-pap Bi-pap 05/11/20 20:02 83 26 129/47 (74) 100 05/11/20 20:00 73 29 99 40 05/11/20 16:55 75 29 98 40 05/11/20 16:00 Bi-pap 4.0 Bi-pap 4.0 05/11/20 16:00 77 05/11/20 16:00 97.0 84 22 129/77 (94) 99 05/11/20 15:00 84 33 97 40 05/11/20 14:31 72 05/11/20 13:21 40 05/11/20 12:00 97.5 69 22 114/62 (79) 97 05/11/20 12:00 Bi-pap 15.0 Bi-pap 4.0 05/11/20 11:40 73 20 93 30 05/11/20 11:40 73 20 93 Bi-Pap 30 Intake and Output 05/11/20 05/12/20 19:00 07:00 Intake Total 385.0 ml Output Total 375 ml Balance 10.0 ml IV Total 385.0 ml Output Urine Total 375 ml Laboratory Tests 05/11/20 12:54: Arterial Blood pH 7.245*L, Arterial Blood Partial Pressure CO2 56.4*H, Arterial Blood Partial Pressure O2 65.0L, Arterial Blood HCO3 23.9, Arterial Blood Oxygen Saturation 90.3L, Arterial Blood Base Excess -4.2L, Francisco J Test Positive 05/11/20 17:48: Arterial Blood pH 7.220*L, Arterial Blood Partial Pressure CO2 53.0H, Arterial Blood Partial Pressure O2 100.4H, Arterial Blood HCO3 21.2L, Arterial Blood Oxygen Saturation 97.1, Arterial Blood Base Excess -6.9L, Francisco J Test Positive 05/11/20 20:01: Arterial Blood pH 7.241*L, Arterial Blood Partial Pressure CO2 55.1*H, Arterial Blood Partial Pressure O2 99.6, Arterial Blood HCO3 23.1, Arterial Blood Oxygen Saturation 96.8, Arterial Blood Base Excess -4.9L, Francisco J Test Positive 05/11/20 21:49: Arterial Blood pH 7.430, Arterial Blood Partial Pressure CO2 29.3L, Arterial Blood Partial Pressure O2 544.3H, Arterial Blood HCO3 19.0L, Arterial Blood Oxygen Saturation 99.9, Arterial Blood Base Excess -4.0L, Francisco J Test Positive 05/11/20 22:00: Urine Color Yellow, Urine Appearance Cloudy, Urine pH 5, Urine Specific [place] 1.025, Urine Protein 3+H, Urine Glucose (UA) Negative, Urine Ketones 1+H, Urine Blood 4+H, Urine Nitrite Negative, Urine Bilirubin Negative, Urine Urobilinogen Normal, Urine Leukocyte Esterase Negative, Urine RBC 10-15H, Urine WBC 0-2, Urine Squamous Epithelial Cells Few, Urine Amorphous Sediment ModerateH, Urine Bacteria ModerateH, Urine Random Sodium < 20L, Urine Creatinine 171.3H 05/12/20 04:20: Sodium Level 134L, Potassium Level 4.2, Chloride Level 98, Carbon Dioxide Level 23, Anion Gap 13, Blood Urea Nitrogen 82H, Creatinine 3.8H, Estimat Glomerular Filtration Rate 13.8, Glucose Level 101, Calcium Level 9.1, Total Bilirubin 1.2H , Direct Bilirubin 0.4H, Aspartate Amino Transf (AST/SGOT) 19, Alanine Aminotransferase (ALT/SGPT) 60, Alkaline Phosphatase 160H, Total Protein 5.9L, Albumin 2.3L, Globulin 3.6, Albumin/Globulin Ratio 0.6L 05/12/20 07:51: Arterial Blood pH 7.539H, Arterial Blood Partial Pressure CO2 28.5L, Arterial Blood Partial Pressure O2 161.3H, Arterial Blood HCO3 23.8, Arterial Blood Oxygen Saturation 98.9, Arterial Blood Base Excess 2.1H, Francisco J Test Positive Height (Feet): 5 Height (Inches): 3.00 Weight (Pounds): 160 Objective General Appearance: WD/WN, no apparent distress, alert EENT: PERRL/EOMI Neck: non-tender, normal alignment, supple Cardiovascular: normal rate, regular rhythm Respiratory/Chest: chest wall non-tender, lungs clear, normal breath sounds, no respiratory distress, no accessory muscle use Abdomen: normal bowel sounds, non tender, soft, no organomegaly Edema: no edema noted Arm (L), no edema noted Arm (R) Neurologic: control manager II-XII grossly normal, alert, oriented x 3, responsive Skin: normal pigmentation Lymphatic: normal anterior cervical (L), normal anterior cervical (R) Bradford Linn MD May 12, 2020 09:26
[2020-05-12] MEDS: dilTIAZem HCl 30mg tab ORAL SCH ×3 (09:44→18:34)
[2020-05-12] MEDS: Wixela 100/50 Inhaler - 60 dose INH SCH ×2 (10:00→22:40)
--- NOTE | 2020-05-12 10:00 | NUR ---
NURSE NOTES: Patient has temperature of 102.0F. Will give tylenol.
[2020-05-12] MEDS: Acetaminophen 500mg (ES) tab ORAL PRN (10:09)
--- NOTE | 2020-05-12 10:24 | NUR ---
RD ASSESSMENT & RECOMMENDATIONS SEE CARE ACTIVITY FOR COMPLETE ASSESSMENT DAILY ESTIMATED NEEDS: Needs based on Critical Care, ARF/ 56kg abw 22-28 kcals/kg 3157-7223 total kcals 0.8-1.5 (increase w/ renal improvement) g protein/kg 45-84 g total protein 25-30 mL/kg 9932-0383 total fluid mLs NUTRITION DIAGNOSIS: * Altered nutrition related lab values r/t clinical status as evidenced by elev BUN(82), creat(3.8) trending up, critical ABG (low pH, elev CO2)-> now improved. * Swallowing difficulty R/T respiratory status as evidenced by s/p oral intubation, on OGT feeds. 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: FOIL OPERATOR eval post extubation ENTERAL NUTRITION RECOMMENDATIONS: Nepro @ 35ml/hr x 24 hrs to provide 840ml, 1512kcal, 68g prot, 610ml free water * W/ worsening renal fxn, rec to continue Nepro * As tolerated, increase goal rate to 35ml/hr x 24 hrs to meet 100% est kcal/prot needs ADDITIONAL RECOMMENDATIONS: 1) Calibrated bedscale wt 2) Monitor renal fxn and lytes, need to continue Nepro Creat trending up 3) Rec niss w/ solumedrol .
--- NOTE | 2020-05-12 11:13 | Infectious Diseases Prog Note ---
Assessment/Plan Assessment/Plan antibiotics : none A 1. COVID 19 pneumonia on 40 liters O2, saturation 100 percent s/p ivermectin 9.7.20 2. renal failure 3. increased LFT 4. COPD 5. CHF 6. asthma 7. respiratory failure P 1. continue solumedrol 2. iv vancomycin, zosyn started 3. will follow up cultures Subjective ROS Limited/Unobtainable: Yes Allergies: Coded Allergies: CIPROFLOXACIN (Verified Allergy, Unknown, 09/27/17) Objective Last 24 Hour Vital Signs Date Time Temp Pulse Resp B/P (MAP) Pulse Ox O2 Delivery O2 Flow Rate FiO2 05/12/20 10:45 103 14 101/47 (65) 100 05/12/20 10:00 102.0 127 15 112/48 (69) 99 05/12/20 09:44 117 113/42 05/12/20 09:00 128 16 116/48 (70) 99 05/12/20 08:00 99.9 122 14 113/47 (69) 100 05/12/20 08:00 Mechanical Ventilator Mechanical Ventilator 05/12/20 08:00 121 05/12/20 07:29 123 15 40 05/12/20 07:00 117 17 108/46 (66) 100 05/12/20 06:00 104 18 103/44 (63) 100 05/12/20 05:00 89 14 102/46 (64) 100 05/12/20 04:00 Mechanical Ventilator Mechanical Ventilator 05/12/20 04:00 88 05/12/20 04:00 98.2 88 14 99/47 (64) 100 05/12/20 03:30 95 18 114/53 (73) 100 05/12/20 03:15 85 14 40 05/12/20 03:00 95 14 106/47 (66) 100 05/12/20 02:00 90 14 99/47 (64) 100 05/12/20 01:00 87 17 104/50 (68) 100 05/12/20 00:30 93 18 110/49 (69) 99 05/12/20 00:00 91 05/12/20 00:00 97.2 91 20 96/49 (65) 100 05/12/20 00:00 Mechanical Ventilator Mechanical Ventilator 05/11/20 23:30 84 17 108/49 (68) 100 05/11/20 23:16 86 18 40 05/11/20 23:00 83 15 111/48 (69) 100 05/11/20 22:30 82 14 103/44 (63) 100 05/11/20 22:00 79 15 105/43 (63) 100 05/11/20 21:30 97.0 79 14 94/51 (65) 100 05/11/20 21:00 86 93/51 05/11/20 21:00 85 14 98/50 (66) 100 05/11/20 20:55 84 14 100 05/11/20 20:53 87 19 104/46 (65) 100 05/11/20 20:45 73 25 92/72 (79) 100 05/11/20 20:30 72 28 113/50 (71) 100 05/11/20 20:23 77 28 119/57 (77) 99 05/11/20 20:15 94.0 76 23 123/56 (78) 99 05/11/20 20:06 76 05/11/20 20:06 Bi-pap Bi-pap 05/11/20 20:02 83 26 129/47 (74) 100 05/11/20 20:00 73 29 99 40 05/11/20 16:55 75 29 98 40 05/11/20 16:00 Bi-pap 4.0 Bi-pap 4.0 05/11/20 16:00 77 05/11/20 16:00 97.0 84 22 129/77 (94) 99 05/11/20 15:00 84 33 97 40 05/11/20 14:31 72 05/11/20 13:21 40 05/11/20 12:00 97.5 69 22 114/62 (79) 97 05/11/20 12:00 Bi-pap 15.0 Bi-pap 4.0 05/11/20 11:40 73 20 93 30 05/11/20 11:40 73 20 93 Bi-Pap 30 Height (Feet): 5 Height (Inches): 3.00 Weight (Pounds): 160 HEENT: other - intubated Microbiology Date/Time Source Procedure Growth Status 05/09/20 14:31 Nasopharynx SARS-CoV-2 RdRp Gene Assay - Final Complete 05/11/20 22:00 Urine,Clean Catch Urine Culture - Preliminary NO GROWTH Resulted Laboratory Tests Test 05/11/20 12:54 05/11/20 17:48 05/11/20 20:01 05/11/20 21:49 Arterial Blood pH 7.245 (7.350-7.450) 7.220 (7.350-7.450) 7.241 (7.350-7.450) 7.430 (7.350-7.450) Arterial Blood Partial Pressure CO2 56.4 mmHg (35.0-45.0) *H 53.0 mmHg (35.0-45.0) H 55.1 mmHg (35.0-45.0) *H 29.3 mmHg (35.0-45.0) L Arterial Blood Partial Pressure O2 65.0 mmHg (75.0-100.0) L 100.4 mmHg (75.0-100.0) H 99.6 mmHg (75.0-100.0) 544.3 mmHg (75.0-100.0) H Arterial Blood HCO3 23.9 mmol/L (22.0-26.0) 21.2 mmol/L (22.0-26.0) L 23.1 mmol/L (22.0-26.0) 19.0 mmol/L (22.0-26.0) L Arterial Blood Oxygen Saturation 90.3 % (95-100) L 97.1 % (95-100) 96.8 % (95-100) 99.9 % (95-100) Arterial Blood Base Excess -4.2 (-2-2) L -6.9 (-2-2) L -4.9 (-2-2) L -4.0 (-2 -2) L Francisco J Test Positive Positive Positive Positive Test 05/11/20 22:00 05/12/20 04:20 05/12/20 07:51 Urine Color Yellow Urine Appearance Cloudy Urine pH 5 (4.5-8.0) Urine Specific [place] 1.025 (1.005-1.035) Urine Protein 3+ (NEGATIVE) H Urine Glucose (UA) Negative (NEGATIVE) Urine Ketones 1+ (NEGATIVE) H Urine Blood 4+ (NEGATIVE) H Urine Nitrite Negative (NEGATIVE) Urine Bilirubin Negative (NEGATIVE) Urine Urobilinogen Normal MG/DL (0.0-1.0) Urine Leukocyte Esterase Negative (NEGATIVE) Urine RBC 10-15 /HPF (0 - 2) H Urine WBC 0-2 /HPF (0 - 2) Urine Squamous Epithelial Cells Few /LPF (NONE/OCC) Urine Amorphous Sediment Moderate /LPF (NONE) H Urine Bacteria Moderate /HPF (NONE) H Urine Random Sodium < 20 mmol/L (20-110) L Urine Creatinine 171.3 MG/DL (30.0-125.0) H Sodium Level 134 MMOL/L (136-145) L Potassium Level 4.2 MMOL/L (3.5-5.1) Chloride Level 98 MMOL/L (98-107) Carbon Dioxide Level 23 MMOL/L (21-32) Anion Gap 13 mmol/L (5-15) Blood Urea Nitrogen 82 mg/dL (7-18) H Creatinine 3.8 MG/DL (0.55-1.30) H Estimat Glomerular Filtration Rate 13.8 mL/min (>60) Glucose Level 101 MG/DL (74-106) Calcium Level 9.1 MG/DL (8.5-10.1) Total Bilirubin 1.2 MG/DL (0.2-1.0) H Direct Bilirubin 0.4 MG/DL (0.0-0.3) H Aspartate Amino Transf (AST/SGOT) 19 U/L (15-37) Alanine Aminotransferase (ALT/SGPT) 60 U/L (12-78) Alkaline Phosphatase 160 U/L (46-116) H Total Protein 5.9 G/DL (6.4-8.2) L Albumin 2.3 G/DL (3.4-5.0) L Globulin 3.6 g/dL Albumin/Globulin Ratio 0.6 (1.0-2.7) L Arterial Blood pH 7.539 (7.350-7.450) Arterial Blood Partial Pressure CO2 28.5 mmHg (35.0-45.0) L Arterial Blood Partial Pressure O2 161.3 mmHg (75.0-100.0) H Arterial Blood HCO3 23.8 mmol/L (22.0-26.0) Arterial Blood Oxygen Saturation 98.9 % (95-100) Arterial Blood Base Excess 2.1 (-2-2) H Francisco J Test Positive Current Medications Medications (Trade) Dose Ordered Sig/Ghislaine Route PRN Reason Start Time Stop Time Status Last Admin Dose Admin Acetaminophen (Tylenol) 500 mg Q4H PRN ORAL Mild Pain (Pain Scale 1-3) 05/11/20 20:00 06/02/20 19:59 05/12/20 10:09 Albuterol Sulfate (Proventil MDI) 2 puff Q4H PRN INH Shortness of Breath 05/11/20 20:00 08/01/20 11:59 Apixaban (Eliquis) 2.5 mg BID ORAL 05/12/20 09:00 08/01/20 17:59 05/12/20 08:58 Aspirin (Ecotrin) 81 mg DAILY ORAL 05/12/20 09:00 06/17/20 15:59 05/12/20 08:38 Diltiazem HCl (Cardizem Tab) 30 mg EVERY 6 HOURS ORAL 05/12/20 09:15 06/11/20 09:14 05/12/20 09:44 Methylprednisolone Sodium Succinate (Solu-MEDROL) 60 mg DAILY IVP 05/12/20 09:00 08/06/20 08:59 05/12/20 08:38 Morphine Sulfate (Morphine Sulfate) 2 mg Q3H PRN IVP For Pain 05/11/20 22:30 05/18/20 22:29 Morphine Sulfate (Morphine Sulfate) 4 mg Q3H PRN IVP SEVERE PAIN 05/11/20 22:30 05/18/20 22:29 Pantoprazole (Protonix) 40 mg DAILY ORAL 05/12/20 09:00 06/02/20 15:59 05/12/20 08:39 Piperacillin Sod/ Tazobactam Sod 3.375 gm/Sodium Chloride 110 ml @ 27.5 mls/hr Q12HR IVPB 05/11/20 21:00 05/18/20 20:59 05/12/20 08:38 Salmeterol Xinafoate/ Fluticasone (Advair 100/50 Diskus) 1 puffs BIDRT INH 05/11/20 22:00 08/09/20 21:59 Vancomycin HCl ([facility] pharmacy to dose) 1 ea DAILY PRN MISC Per rx protocol 05/12/20 09:00 06/10/20 18:44 Camilo Cameron MD May 12, 2020 11:13
--- NOTE | 2020-05-12 12:00 | NUR ---
NURSE NOTES: Patient stable. No s/sx of pain or distress. Observed trying to reach for ETT tube although now able to follow simple commands. Will maintain restraints on.
--- NOTE | 2020-05-12 12:31 | Pulmonology Progress Note ---
Subjective ROS Limited/Unobtainable: Yes Constitutional: Denies: fever, chills Gastrointestinal/Abdominal: Denies: nausea, vomiting, diarrhea Musculoskeletal: Denies: pain Allergies: Coded Allergies: CIPROFLOXACIN (Verified Allergy, Unknown, 09/27/17) All Systems: reviewed and negative except above Subjective deteriorated last night was on BIPAP and remained acidotic required intubation had AFib with RVR now sinus tachy Objective Last 24 Hour Vital Signs Date Time Temp Pulse Resp B/P (MAP) Pulse Ox O2 Delivery O2 Flow Rate FiO2 05/12/20 12:19 105 111/52 05/12/20 12:18 99 05/12/20 11:20 118 14 30 05/12/20 10:45 103 14 101/47 (65) 100 05/12/20 10:00 102.0 127 15 112/48 (69) 99 05/12/20 09:44 117 113/42 05/12/20 09:00 128 16 116/48 (70) 99 05/12/20 08:00 99.9 122 14 113/47 (69) 100 05/12/20 08:00 Mechanical Ventilator Mechanical Ventilator 05/12/20 08:00 121 05/12/20 07:29 123 15 40 05/12/20 07:00 117 17 108/46 (66) 100 05/12/20 06:00 104 18 103/44 (63) 100 05/12/20 05:00 89 14 102/46 (64) 100 05/12/20 04:00 Mechanical Ventilator Mechanical Ventilator 05/12/20 04:00 88 05/12/20 04:00 98.2 88 14 99/47 (64) 100 05/12/20 03:30 95 18 114/53 (73) 100 05/12/20 03:15 85 14 40 05/12/20 03:00 95 14 106/47 (66) 100 05/12/20 02:00 90 14 99/47 (64) 100 05/12/20 01:00 87 17 104/50 (68) 100 05/12/20 00:30 93 18 110/49 (69) 99 05/12/20 00:00 91 05/12/20 00:00 97.2 91 20 96/49 (65) 100 05/12/20 00:00 Mechanical Ventilator Mechanical Ventilator 05/11/20 23:30 84 17 108/49 (68) 100 05/11/20 23:16 86 18 40 05/11/20 23:00 83 15 111/48 (69) 100 05/11/20 22:30 82 14 103/44 (63) 100 05/11/20 22:00 79 15 105/43 (63) 100 05/11/20 21:30 97.0 79 14 94/51 (65) 100 05/11/20 21:00 86 93/51 05/11/20 21:00 85 14 98/50 (66) 100 05/11/20 20:55 84 14 100 05/11/20 20:53 87 19 104/46 (65) 100 05/11/20 20:45 73 25 92/72 (79) 100 05/11/20 20:30 72 28 113/50 (71) 100 05/11/20 20:23 77 28 119/57 (77) 99 05/11/20 20:15 94.0 76 23 123/56 (78) 99 05/11/20 20:06 76 05/11/20 20:06 Bi-pap Bi-pap 05/11/20 20:02 83 26 129/47 (74) 100 05/11/20 20:00 73 29 99 40 05/11/20 16:55 75 29 98 40 05/11/20 16:00 Bi-pap 4.0 Bi-pap 4.0 05/11/20 16:00 77 05/11/20 16:00 97.0 84 22 129/77 (94) 99 05/11/20 15:00 84 33 97 40 05/11/20 14:31 72 05/11/20 13:21 40 Intake and Output 05/11/20 05/12/20 19:00 07:00 Intake Total 385.0 ml Output Total 375 ml Balance 10.0 ml IV Total 385.0 ml Output Urine Total 375 ml Objective deferred due to COVID Microbiology Date/Time Source Procedure Growth Status 05/11/20 22:00 Urine,Clean Catch Urine Culture - Preliminary NO GROWTH Resulted 05/09/20 14:31 Nasopharynx SARS-CoV-2 RdRp Gene Assay - Final Complete Laboratory Tests 05/11/20 12:54: Arterial Blood pH 7.245*L, Arterial Blood Partial Pressure CO2 56.4*H, Arterial Blood Partial Pressure O2 65.0L, Arterial Blood HCO3 23.9, Arterial Blood Oxygen Saturation 90.3L, Arterial Blood Base Excess -4.2L, Francisco J Test Positive 05/11/20 17:48: Arterial Blood pH 7.220*L, Arterial Blood Partial Pressure CO2 53.0H, Arterial Blood Partial Pressure O2 100.4H, Arterial Blood HCO3 21.2L, Arterial Blood Oxygen Saturation 97.1, Arterial Blood Base Excess -6.9L, Francisco J Test Positive 05/11/20 20:01: Arterial Blood pH 7.241*L, Arterial Blood Partial Pressure CO2 55.1*H, Arterial Blood Partial Pressure O2 99.6, Arterial Blood HCO3 23.1, Arterial Blood Oxygen Saturation 96.8, Arterial Blood Base Excess -4.9L, Francisco J Test Positive 05/11/20 21:49: Arterial Blood pH 7.430, Arterial Blood Partial Pressure CO2 29.3L, Arterial Blood Partial Pressure O2 544.3H, Arterial Blood HCO3 19.0L, Arterial Blood Oxygen Saturation 99.9, Arterial Blood Base Excess -4.0L, Francisco J Test Positive 05/11/20 22:00: Urine Color Yellow, Urine Appearance Cloudy, Urine pH 5, Urine Specific [place] 1.025, Urine Protein 3+H, Urine Glucose (UA) Negative, Urine Ketones 1+H, Urine Blood 4+H, Urine Nitrite Negative, Urine Bilirubin Negative, Urine Urobilinogen Normal, Urine Leukocyte Esterase Negative, Urine RBC 10-15H, Urine WBC 0-2, Urine Squamous Epithelial Cells Few, Urine Amorphous Sediment ModerateH, Urine Bacteria ModerateH, Urine Random Sodium < 20L, Urine Creatinine 171.3H 05/12/20 04:20: Sodium Level 134L, Potassium Level 4.2, Chloride Level 98, Carbon Dioxide Level 23, Anion Gap 13, Blood Urea Nitrogen 82H, Creatinine 3.8H, Estimat Glomerular Filtration Rate 13.8, Glucose Level 101, Calcium Level 9.1, Total Bilirubin 1.2H , Direct Bilirubin 0.4H, Aspartate Amino Transf (AST/SGOT) 19, Alanine Aminotransferase (ALT/SGPT) 60, Alkaline Phosphatase 160H, Total Protein 5.9L, Albumin 2.3L, Globulin 3.6, Albumin/Globulin Ratio 0.6L 05/12/20 07:51: Arterial Blood pH 7.539H, Arterial Blood Partial Pressure CO2 28.5L, Arterial Blood Partial Pressure O2 161.3H, Arterial Blood HCO3 23.8, Arterial Blood Oxygen Saturation 98.9, Arterial Blood Base Excess 2.1H, Francisco J Test Positive Current Medications Medications (Trade) Dose Ordered Sig/Ghislaine Route PRN Reason Start Time Stop Time Status Last Admin Dose Admin Acetaminophen (Tylenol) 500 mg Q4H PRN ORAL Mild Pain (Pain Scale 1-3) 05/11/20 20:00 06/02/20 19:59 05/12/20 10:09 Albuterol Sulfate (Proventil MDI) 2 puff Q4H PRN INH Shortness of Breath 05/11/20 20:00 08/01/20 11:59 Apixaban (Eliquis) 2.5 mg BID ORAL 05/12/20 09:00 08/01/20 17:59 05/12/20 08:58 Aspirin (Ecotrin) 81 mg DAILY ORAL 05/12/20 09:00 06/17/20 15:59 05/12/20 08:38 Diltiazem HCl (Cardizem Tab) 30 mg EVERY 6 HOURS ORAL 05/12/20 09:15 06/11/20 09:14 05/12/20 12:19 Methylprednisolone Sodium Succinate (Solu-MEDROL) 60 mg DAILY IVP 05/12/20 09:00 08/06/20 08:59 05/12/20 08:38 Morphine Sulfate (Morphine Sulfate) 2 mg Q3H PRN IVP For Pain 05/11/20 22:30 05/18/20 22:29 Morphine Sulfate (Morphine Sulfate) 4 mg Q3H PRN IVP SEVERE PAIN 05/11/20 22:30 05/18/20 22:29 Pantoprazole (Protonix) 40 mg DAILY ORAL 05/12/20 09:00 06/02/20 15:59 05/12/20 08:39 Piperacillin Sod/ Tazobactam Sod 3.375 gm/Sodium Chloride 110 ml @ 27.5 mls/hr Q12HR IVPB 05/11/20 21:00 05/18/20 20:59 05/12/20 08:38 Salmeterol Xinafoate/ Fluticasone (Advair 100/50 Diskus) 1 puffs BIDRT INH 05/11/20 22:00 08/09/20 21:59 Vancomycin HCl (Vanco pharmacy to dose) 1 ea DAILY PRN MISC Per rx protocol 05/12/20 09:00 06/10/20 18:44 Assessment/Plan Assessment/Plan Impression: COVID-19 Chronic obstructive pulmonary disease/Asthma Community acquired pneumonia Atrial fibrillation with RVR Elevated troponin Congestive heart Failure sinus tachycardia Hypoxemia transaminitis consider cholecystitis acute on chronic renal failure acute respiratory failure Plan ID noted Vent support wean oxygen feeds per dietary IV Steroids per ID Bronchodilator therapy Eliquis and monitor HH Monitor labs/ renal follow up Covid 19 Isolation- repeat swab+ reviewed care and optimize medications/laboratory data/nursing notes/ICU care reviewed in detail note reviewed and edited care discussed with RN and RT ICU time spent >40 minutes Aaron Jefferson MD May 12, 2020 12:31
--- NOTE | 2020-05-12 14:00 | NUR ---
NURSE NOTES: Patient stable. No s/sx of pain or distress.
--- NOTE | 2020-05-12 14:05 | NUR ---
Social Work This SW followed up with patient who is currently intubated, sedated in the ICU. 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 Patient does not have an AD or POA, while daughter is the primary contact. Patient lives with her son, Román and brother, Alfonzo and was independent with all ADLs, ambulation. Patient lives in a house with three steps in the front, no steps in the back, no steps inside the house. She has a walker (from a family member), but was not using it prior, was independent with all ADLs prior, Alert/Oriented x4. According to daughter, patient and family would prefer full code, full treatment at this time. Patient does not want SNF placement, even for short term rehab, while daughter stating she plans to travel back to [place] to care for patient in her home, as needed (would want home care, as needed). Daughter explains patient does not have a history of substance abuse or mental health concerns. Brief emotional support provided to daughter, who expresses no further needs or concerns at this time, stating she has been in communication with ICU nurses and MD here, as needed regarding progress and plan.
--- NOTE | 2020-05-12 15:38 | NUR ---
RESPIRATORY NOTE: Sputum sample collected. Given to Liudmila SALGADO.
[2020-05-12] MEDS ORDERED: Tubing IV Secondary IV ONE (15:42)
[2020-05-12] MEDS ORDERED: NS 275ml ONE (15:42)
--- NOTE | 2020-05-12 16:00 | NUR ---
NURSE NOTES: Patient stable. No s/sx of pain or distress. Observed trying to reach for ETT tube while cleaning her and performing wound care. Will maintain restraints on.
--- NOTE | 2020-05-12 18:00 | NUR ---
NURSE NOTES: Jaquelinm given. Eliquis held due to observed vaginal bleeding. Will notify
--- NOTE | 2020-05-12 18:37 | Surgery Progress Note ---
Surgery Progress Note Subjective Additional Comments ill appearing imaging reviewed no n/v Objective Last 24 Hour Vital Signs Date Time Temp Pulse Resp B/P (MAP) Pulse Ox O2 Delivery O2 Flow Rate FiO2 05/12/20 18:34 106 120/63 05/12/20 18:00 102 18 97/51 (66) 99 05/12/20 17:00 105 18 128/65 (86) 99 05/12/20 16:00 90 16 103/48 (66) 100 05/12/20 16:00 105 05/12/20 15:10 97 15 30 05/12/20 15:00 105 16 119/62 (81) 98 05/12/20 14:00 109 16 116/74 (88) 99 05/12/20 13:00 107 17 104/61 (75) 99 05/12/20 12:19 105 111/52 05/12/20 12:18 99 05/12/20 12:00 112 14 105/43 (63) 99 05/12/20 12:00 88 05/12/20 12:00 100.6 05/12/20 12:00 Mechanical Ventilator Mechanical Ventilator 05/12/20 11:20 118 14 30 05/12/20 10:45 103 14 101/47 (65) 100 05/12/20 10:00 102.0 127 15 112/48 (69) 99 05/12/20 09:44 117 113/42 05/12/20 09:00 128 16 116/48 (70) 99 05/12/20 08:00 99.9 122 14 113/47 (69) 100 05/12/20 08:00 Mechanical Ventilator Mechanical Ventilator 05/12/20 08:00 121 05/12/20 07:29 123 15 40 05/12/20 07:00 117 17 108/46 (66) 100 05/12/20 06:00 104 18 103/44 (63) 100 05/12/20 05:00 89 14 102/46 (64) 100 05/12/20 04:00 Mechanical Ventilator Mechanical Ventilator 05/12/20 04:00 88 05/12/20 04:00 98.2 88 14 99/47 (64) 100 05/12/20 03:30 95 18 114/53 (73) 100 05/12/20 03:15 85 14 40 05/12/20 03:00 95 14 106/47 (66) 100 05/12/20 02:00 90 14 99/47 (64) 100 05/12/20 01:00 87 17 104/50 (68) 100 05/12/20 00:30 93 18 110/49 (69) 99 05/12/20 00:00 91 05/12/20 00:00 97.2 91 20 96/49 (65) 100 05/12/20 00:00 Mechanical Ventilator Mechanical Ventilator 05/11/20 23:30 84 17 108/49 (68) 100 05/11/20 23:16 86 18 40 05/11/20 23:00 83 15 111/48 (69) 100 05/11/20 22:30 82 14 103/44 (63) 100 05/11/20 22:00 79 15 105/43 (63) 100 05/11/20 21:30 97.0 79 14 94/51 (65) 100 05/11/20 21:00 86 93/51 05/11/20 21:00 85 14 98/50 (66) 100 05/11/20 20:55 84 14 100 05/11/20 20:53 87 19 104/46 (65) 100 05/11/20 20:45 73 25 92/72 (79) 100 05/11/20 20:30 72 28 113/50 (71) 100 05/11/20 20:23 77 28 119/57 (77) 99 05/11/20 20:15 94.0 76 23 123/56 (78) 99 05/11/20 20:06 76 05/11/20 20:06 Bi-pap Bi-pap 05/11/20 20:02 83 26 129/47 (74) 100 05/11/20 20:00 73 29 99 40 I&O Intake and Output 05/11/20 05/12/20 19:00 07:00 Intake Total 385.0 ml Output Total 375 ml Balance 10.0 ml IV Total 385.0 ml Output Urine Total 375 ml Dressing: other Wound: other Cardiovascular: RSR Respiratory: decreased breath sounds Abdomen: soft, non-tender, present bowel sounds Extremities: no tenderness, no cyanosis Laboratory Tests Test 05/11/20 20:01 05/11/20 21:49 05/11/20 22:00 05/12/20 04:20 Arterial Blood pH 7.241 (7.350-7.450) 7.430 (7.350-7.450) Arterial Blood Partial Pressure CO2 55.1 mmHg (35.0-45.0) *H 29.3 mmHg (35.0-45.0) L Arterial Blood Partial Pressure O2 99.6 mmHg (75.0-100.0) 544.3 mmHg (75.0-100.0) H Arterial Blood HCO3 23.1 mmol/L (22.0-26.0) 19.0 mmol/L (22.0-26.0) L Arterial Blood Oxygen Saturation 96.8 % (95-100) 99.9 % (95-100) Arterial Blood Base Excess -4.9 (-2-2) L -4.0 (-2-2) L Francisco J Test Positive Positive Urine Color Yellow Urine Appearance Cloudy Urine pH 5 (4.5-8.0) Urine Specific [place] 1.025 (1.005-1.035) Urine Protein 3+ (NEGATIVE) H Urine Glucose (UA) Negative (NEGATIVE) Urine Ketones 1+ (NEGATIVE) H Urine Blood 4+ (NEGATIVE) H Urine Nitrite Negative (NEGATIVE) Urine Bilirubin Negative (NEGATIVE) Urine Urobilinogen Normal MG/DL (0.0-1.0) Urine Leukocyte Esterase Negative (NEGATIVE) Urine RBC 10-15 /HPF (0 - 2) H Urine WBC 0-2 /HPF (0 - 2) Urine Squamous Epithelial Cells Few /LPF (NONE/OCC) Urine Amorphous Sediment Moderate /LPF (NONE) H Urine Bacteria Moderate /HPF (NONE) H Urine Random Sodium < 20 mmol/L (20-110) L Urine Creatinine 171.3 MG/DL (30.0-125.0) H Sodium Level 134 MMOL/L (136-145) L Potassium Level 4.2 MMOL/L (3.5-5.1) Chloride Level 98 MMOL/L (98-107) Carbon Dioxide Level 23 MMOL/L (21-32) Anion Gap 13 mmol/L (5-15) Blood Urea Nitrogen 82 mg/dL (7-18) H Creatinine 3.8 MG/DL (0.55-1.30) H Estimat Glomerular Filtration Rate 13.8 mL/min (>60) Glucose Level 101 MG/DL (74-106) Calcium Level 9.1 MG/DL (8.5-10.1) Total Bilirubin 1.2 MG/DL (0.2-1.0) H Direct Bilirubin 0.4 MG/DL (0.0-0.3) H Aspartate Amino Transf (AST/SGOT) 19 U/L (15-37) Alanine Aminotransferase (ALT/SGPT) 60 U/L (12-78) Alkaline Phosphatase 160 U/L (46-116) H Total Protein 5.9 G/DL (6.4-8.2) L Albumin 2.3 G/DL (3.4-5.0) L Globulin 3.6 g/dL Albumin/Globulin Ratio 0.6 (1.0-2.7) L Test 05/12/20 07:51 Arterial Blood pH 7.539 (7.350-7.450) Arterial Blood Partial Pressure CO2 28.5 mmHg (35.0-45.0) L Arterial Blood Partial Pressure O2 161.3 mmHg (75.0-100.0) H Arterial Blood HCO3 23.8 mmol/L (22.0-26.0) Arterial Blood Oxygen Saturation 98.9 % (95-100) Arterial Blood Base Excess 2.1 (-2-2) H Francisco J Test Positive Plan Problems: (1) Elevated troponin (2) Atrial fibrillation with RVR (3) COVID-19 Assessment & Plan: ++ as per pulm and ID DAILY ESTIMATED NEEDS: Needs based on Critical Care, ARF/ 56kg abw 22-28 kcals/kg [id number] total kcals 0.8-1.5 (increase w/ renal improvement) g protein/kg 45-84 g total protein 25-30 mL/kg 1955-1159 total fluid mLs NUTRITION DIAGNOSIS: * Altered nutrition related lab values r/t clinical status as evidenced by elev BUN(82), creat(3.8) trending up, critical ABG (low pH, elev CO2)-> now improved. * Swallowing difficulty R/T respiratory status as evidenced by s/p oral intubation, on OGT feeds. 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: LICENSED DISPENSING OPTICIAN eval post extubation ENTERAL NUTRITION RECOMMENDATIONS: Nepro @ 35ml/hr x 24 hrs to provide 840ml, 1512kcal, 68g prot, 610ml free water * W/ worsening renal fxn, rec to continue Nepro * As tolerated, increase goal rate to 35ml/hr x 24 hrs to meet 100% est kcal/ prot needs ADDITIONAL RECOMMENDATIONS: 1) Calibrated bedscale wt 2) Monitor renal fxn and lytes, need to continue Nepro Creat trending up 3) Rec niss w/ solumedrol (4) Community acquired pneumonia (5) COPD (chronic obstructive pulmonary disease) (6) Pulmonary fibrosis (7) Asthma (8) History of asthma (9) NSTEMI (non-ST elevated myocardial infarction) (10) Moderate to severe pulmonary hypertension (11) Asthma exacerbation (12) Abnormal LFTs Assessment & Plan: afebrile, HD stable labs noted lft's elevated US reviewed exam benign gb likely reactive from underlying pathology unlikely cholecystitis clinically fluid overload trend labs will monitor exam clinically covid + prognosis guarded cxr reviewed on abx Gallbladder demonstrates wall thickening and wall edema, gallbladder wall measuring up to 6 mm thick. There are gallstones. Sonographic Escoto's sign is negative. Common bile duct measures 3 mm in diameter. No intrahepatic biliary ductal dilatation. Liver demonstrates normal echogenicity, no focal abnormality. Portal vein and hepatic veins are patent. Pancreas is unremarkable. Spleen is unremarkable. Left kidney measures 9.2 cm in length. Right kidney measures 9.9 cm length. Both kidneys demonstrate normal echogenicity. There is no hydronephrosis. Small cyst is seen in the right kidney. . Abdominal aorta was not imaged . There is trace ascites. There is a small right pleural effusion incidentally noted Impression: Small right pleural effusion. Trace ascites Cholelithiasis. Gallbladder wall thickening may be related to hemodynamic factors causing the pleural fluid and ascites, but could also indicate acute cholecystitis. Consider nuclear medicine hepatobiliary scan if there is high clinical suspicion. Negative for dilated bile ducts Small right renal cyst incidentally noted (13) Acute respiratory failure with hypoxia Quentin Sanchez May 12, 2020 18:37
--- NOTE | 2020-05-12 19:33 | NUR ---
NURSE HAND-OFF REPORT: Latest Vital Signs: Temperature 100.6 , Pulse 106 , B/P 120 /63 , Respiratory Rate 18 , O2 SAT 99 , Mechanical Ventilator, O2 Flow Rate 4.0 . Vital Sign Comment: STABLE EKG Rhythm: Sinus Tachycardia Rhythm change?: Krishna MCCRACKEN Notified?: Krishna cardoso MD Response: MD aware Latest Lechuga Fall Score: 50 Fall Risk: High Risk Safety Measures: Call light Within Reach, Bed Alarm Zone 1, Side Rails Side Rails x3, Bed position Low and Locked. Fall Precautions: Yellow Socks Door Sign Patient Fall Education Report given to Saul RN. Patient stable. Plan of care endorsed. Sputum culture needs to be collected again. Feeding unable to be started. Awaiting orders from Dr. Linn.
--- NOTE | 2020-05-12 19:43 | NUR ---
RESPIRATORY NOTE: Received pt on AC 14, 500VT, 30%, PEEP +5. Pt intubated w/ ETT 7.5 @ 20cm lipline, secured by anchorfast. Pt awake/responds to stimuli. B/S migel. diminished, sxn scant amounts of thick/thin, bloody secretions. Vent plugged into red outlet, ambubag at bedside. Pt in no apparent distress at this time. Will continue to monitor pt.
--- NOTE | 2020-05-12 19:50 | NUR ---
NURSE NOTES: LE: PATIENT OPEN EYES, ALERT, ORIENTED X2, DENIED PAIN OR SOB, ON ETT TO VENT AC14/TV500/FIO2 30%/PEEP5, O2 SATURATION 99% NOTED, HR 80'S/MIN SR, OGT INTACT AND PATENT, STARTED FEEDING NEPRO AT 10ML/HR , KEPT HOB 30 DEGREES AND ASPIRATION PRECAUTION, ABDOMEN SOFT, NON TENDER, NO BM STATUS, F/C INTACT AND PATENT, JAMEEL COLOR URINE OUTED, PPL TO LEFT AC 20G, INTACT AND PATENT, 2 POINT SOFT RESTRAINTS, MADE LOWER BED POSITION, ON BED ALARM AND LOCKED, PLACED CALL LIGHT WITHIN REACH, WILL CONTINUE TO MONITOR.
--- NOTE | 2020-05-12 20:30 | NUR ---
NURSE NOTES: PT'S SON VISITED, SEEN THE PATIENT OUTSIDE PER HOSPITAL PROTOCOLS.
--- NOTE | 2020-05-12 22:30 | NUR ---
NURSE NOTES: LE: PHONE CALL FROM PT'S DAUGHTER (DAHLIA) REGARDING PT'S SITUATION, ANSWERED QUESTIONS THAT PATIENT IS SLEEPING STATUS, INFORMED V/S AND VENTILATOR STATUS. Addendum: 05/13/20 at 0109 by YOLI MAST RN NURSE NOTES: LE: PHONE CALL FROM PT'S DAUGHTER (IVONNE) REGARDING PT'S SITUATION, ANSWERED QUESTIONS THAT PATIENT IS SLEEPING STATUS, INFORMED V/S AND VENTILATOR STATUS.
[2020-05-13] VITALS (26 sets, daily range): BP systolic 89–120; BP diastolic 39–70
[2020-05-13] MEDS: dilTIAZem HCl 30mg tab ORAL SCH ×5 (00:08→23:55)
--- NOTE | 2020-05-13 00:15 | NUR ---
NURSE NOTES: ORAL CARE WAS DONE, RESISTANCE TO CARE AT THIS TIME, RELEASED RESTRAINTS AND REAPPLIED, WILL CONTINUE TO MONITOR.
--- NOTE | 2020-05-13 02:20 | NUR ---
NURSE NOTES: PATIENT ASLEEP STATUS, NO PAIN OR SOB NOTED AT THIS TIME, WILL CONTINUE PLAN OF CARE.
--- NOTE | 2020-05-13 02:32 | Cardiology Progress Note ---
Subjective DATE OF SERVICE: May 12, 2020 Condition has deteriorated; patient with persisting acute respiratory acidosis. As such, yesterday she has req'd intubation and [facility] ventilation. Monitor: AFib with episodes of RVR and nonsustained VTach. Lactic acidosis resolved BP has dropped as well with deterioration of acid-base status. Episodes of tachycardia noted. Objective Last 24 Hour Vital Signs Date Time Temp Pulse Resp B/P (MAP) Pulse Ox O2 Delivery O2 Flow Rate FiO2 05/13/20 02:00 83 14 115/64 (81) 100 05/13/20 01:00 94 15 111/54 (73) 99 05/13/20 00:08 84 108/45 05/13/20 00:00 91 05/13/20 00:00 Mechanical Ventilator Mechanical Ventilator 05/13/20 00:00 98.4 91 14 108/45 (66) 99 05/12/20 23:00 96 18 93/53 (66) 100 05/12/20 22:48 89 14 30 05/12/20 22:00 88 14 94/46 (62) 99 05/12/20 21:00 90 14 99/50 (66) 100 05/12/20 20:00 Mechanical Ventilator Mechanical Ventilator 05/12/20 20:00 98.4 98 17 133/59 (83) 99 05/12/20 19:41 88 15 30 05/12/20 19:30 84 05/12/20 19:00 87 14 105/56 (72) 100 05/12/20 18:34 106 120/63 05/12/20 18:00 102 18 97/51 (66) 99 05/12/20 17:00 105 18 128/65 (86) 99 05/12/20 16:00 90 16 103/48 (66) 100 05/12/20 16:00 Mechanical Ventilator Mechanical Ventilator 05/12/20 16:00 105 05/12/20 15:10 97 15 30 05/12/20 15:00 105 16 119/62 (81) 98 05/12/20 14:00 109 16 116/74 (88) 99 05/12/20 13:00 107 17 104/61 (75) 99 05/12/20 12:19 105 111/52 05/12/20 12:18 99 05/12/20 12:00 112 14 105/43 (63) 99 05/12/20 12:00 88 05/12/20 12:00 100.6 05/12/20 12:00 Mechanical Ventilator Mechanical Ventilator 05/12/20 11:20 118 14 30 05/12/20 10:45 103 14 101/47 (65) 100 05/12/20 10:00 102.0 127 15 112/48 (69) 99 05/12/20 09:44 117 113/42 05/12/20 09:00 128 16 116/48 (70) 99 05/12/20 08:00 99.9 122 14 113/47 (69) 100 05/12/20 08:00 Mechanical Ventilator Mechanical Ventilator 05/12/20 08:00 121 05/12/20 07:29 123 15 40 05/12/20 07:00 117 17 108/46 (66) 100 05/12/20 06:00 104 18 103/44 (63) 100 05/12/20 05:00 89 14 102/46 (64) 100 05/12/20 04:00 Mechanical Ventilator Mechanical Ventilator 05/12/20 04:00 88 05/12/20 04:00 98.2 88 14 99/47 (64) 100 05/12/20 03:30 95 18 114/53 (73) 100 05/12/20 03:15 85 14 40 05/12/20 03:00 95 14 106/47 (66) 100 ROS: unchanged from my eval of 05/03/20 HEENT: Orally intubated, Mechanically Ventilated, Thin secretions ET Tube LUNGS: no accessory muscle use, expiratory wheezing, diminished breath sounds CARDIAC: normal S1 and S2, no murmur, irregularly irregular ABDOMEN: normal bowel sounds, non tender, soft, no organomegaly EXTREMITIES: no calf tenderness, +1 edema Laboratory Tests Test 05/12/20 04:20 05/12/20 07:51 Sodium Level 134 MMOL/L (136-145) L Potassium Level 4.2 MMOL/L (3.5-5.1) Chloride Level 98 MMOL/L (98-107) Carbon Dioxide Level 23 MMOL/L (21-32) Anion Gap 13 mmol/L (5-15) Blood Urea Nitrogen 82 mg/dL (7-18) H Creatinine 3.8 MG/DL (0.55-1.30) H Estimat Glomerular Filtration Rate 13.8 mL/min (>60) Glucose Level 101 MG/DL (74-106) Calcium Level 9.1 MG/DL (8.5-10.1) Total Bilirubin 1.2 MG/DL (0.2-1.0) H Direct Bilirubin 0.4 MG/DL (0.0-0.3) H Aspartate Amino Transf (AST/SGOT) 19 U/L (15-37) Alanine Aminotransferase (ALT/SGPT) 60 U/L (12-78) Alkaline Phosphatase 160 U/L (46-116) H Total Protein 5.9 G/DL (6.4-8.2) L Albumin 2.3 G/DL (3.4-5.0) L Globulin 3.6 g/dL Albumin/Globulin Ratio 0.6 (1.0-2.7) L Arterial Blood pH 7.539 (7.350-7.450) Arterial Blood Partial Pressure CO2 28.5 mmHg (35.0-45.0) L Arterial Blood Partial Pressure O2 161.3 mmHg (75.0-100.0) H Arterial Blood HCO3 23.8 mmol/L (22.0-26.0) Arterial Blood Oxygen Saturation 98.9 % (95-100) Arterial Blood Base Excess 2.1 (-2-2) H Francisco J Test Positive Microbiology Date/Time Source Procedure Growth Status 05/11/20 22:00 Urine,Clean Catch Urine Culture - Preliminary NO GROWTH Resulted Assessment/Plan Assessment/Plan Acute on chronic respiratory acidosis Acute respiratory failure Shock LE edema due to severe pulmonary hypertension and right heart strain COPD exacerb with active bronchospasm Lactic acidosis COVID 19 PNA Acute on chr renal failure - now with hyperkalemia Chronic systolic/diastolic CHF Pulmonary fibrosis with chronic hypoxia Paroxysmal AFib with RVR Hx Multifocal atrial arrhythmias Pulmonary HTN - severe Hx NSVTach Acute myocardial ischemia Vent support Hold diltiazem for low BP Steroids per pulmonary Inhaled bronchodilators IVF adjusted Reassess for diuresis; not presently indicated Full anticoagulation for cardioembolic prophyl Isolation Anti-viral rx per Simone Shirley MD May 13, 2020 02:32
--- NOTE | 2020-05-13 02:52 | NUR ---
NURSE NOTES: MORNING CARE WAS DONE.
--- NOTE | 2020-05-13 05:15 | NUR ---
NURSE NOTES: PATIENT ASLEEP STATUS, VSS, O2 SATURATION 99% NOTED AT THIS TIME.
[2020-05-13 05:43] LABS: HEMATOCRIT 37.6 % (37.0-47.0); HEMOGLOBIN 12.3 G/DL (12.0-16.0); MEAN CORPUSCULAR VOLUME 84 FL (80-99); PLATELET COUNT 235 K/UL (150-450); RED BLOOD COUNT 4.48 M/UL (4.20-5.40); RED CELL DISTRIBUTION WIDTH 18.1 % (11.6-14.8); WHITE BLOOD COUNT 14.5 K/UL (4.8-10.8)
[2020-05-13 06:21] LABS: ALBUMIN/GLOBULIN RATIO 0.6 (1.0-2.7); BILIRUBIN,TOTAL 1.7 MG/DL (0.2-1.0); CALCIUM 8.3 MG/DL (8.5-10.1); POTASSIUM 3.7 MMOL/L (3.5-5.1)
[2020-05-13 06:25] LABS: BILIRUBIN,DIRECT 0.7 MG/DL (0.0-0.3)
--- NOTE | 2020-05-13 06:40 | NUR ---
NURSE NOTES: NO ACUTE DISTRESS NOTED AT THIS SHIFT.
--- NOTE | 2020-05-13 07:17 | NUR ---
NURSE HAND-OFF REPORT: Latest Vital Signs: Temperature 97.8 , Pulse 92 , B/P 104 /48 , Respiratory Rate 14 , O2 SAT 99 , Mechanical Ventilator, O2 Flow Rate 4.0 . Vital Sign Comment: EKG Rhythm: Sinus Rhythm Rhythm change?: Krishna MCCRACKEN Notified?: Tracy cardoso MD Response: No New Orders Received Latest Lechuga Fall Score: 50 Fall Risk: High Risk Safety Measures: Call light Within Reach, Bed Alarm Zone 1, Side Rails Side Rails x3, Bed position Low and Locked. Fall Precautions: Yellow Socks Door Sign Patient Fall Education Report given to DAMIAN STORY.
--- NOTE | 2020-05-13 07:18 | NUR ---
NURSE NOTES: Pt received from DAMIAN Hughes. Pt is asleep, opens eyes when called by name, gag reflex intact, pt is able to follow simple commands, pupils are 3 mm bilaterally with brisk rxn to light PERRLA +. Pt noted in Afib to media monitor. radial pulses 2+ and dorsalis pedis pulses 1+. 1+ pitting edema noted to hands. Pt is orally intubated with a 7.5 ETT noted 20 cm at the lip with the following settings: AC 14 TV 500 FiO2 30% Peep 5. Left lung lobes noted diminished upon auscultation. Right lung lobes CTA. Abd is round, soft, and non-tender, with active bowel sounds to all quadrants. Pt has an OGT running Nepro at 20 cc/hr. F/C noted draining light alma urine with moderate amount of brown sedimentation. Skin alterations noted. LINDSEY mattress ordered - pending delivery. Pt has a LAC 20g IV running NS TKO at 5 cc/hr. No notable bleeding at this time. Bed in lowest position, alarm on, side rails up x 2. Call light within reach. Will continue to monitor pt.
--- NOTE | 2020-05-13 08:22 | NUR ---
NURSE NOTES: Dr Linn assessing pt at bedside. Endorsed that pt experienced vaginal bleeding recently per DAMIAN Hughes - OK to continue eliquis if bleeding has subsided today.
[2020-05-13] MEDS: Eliquis 2.5mg tablet ORAL SCH ×2 (08:35→17:27)
[2020-05-13] MEDS: Solu-MEDROL 125mg Inj IVP SCH (08:35)
[2020-05-13] MEDS: Aspirin EC 81mg tab ORAL SCH (08:35)
[2020-05-13] MEDS: Acetaminophen 500mg (ES) tab ORAL PRN (08:37)
[2020-05-13] MEDS: Piperacillin/Tazobactam 3.375 GM in NS 110 ML IVPB SCH ×2 (08:37→20:48)
--- NOTE | 2020-05-13 09:44 | NUR ---
NURSE NOTES: Spoke with RT Elvi regarding weaning trial for today - will initiate soon. Obtained ABG order from Dr Jefferson - 1 hr into weaning trial.
--- NOTE | 2020-05-13 09:52 | Pulmonology Progress Note ---
Subjective ROS Limited/Unobtainable: Yes Constitutional: Denies: fever, chills Gastrointestinal/Abdominal: Denies: nausea, vomiting, diarrhea Musculoskeletal: Denies: pain Allergies: Coded Allergies: CIPROFLOXACIN (Verified Allergy, Unknown, 09/27/17) All Systems: reviewed and negative except above Subjective on vent comfortable sedated ICU care reviewed Objective Last 24 Hour Vital Signs Date Time Temp Pulse Resp B/P (MAP) Pulse Ox O2 Delivery O2 Flow Rate FiO2 05/13/20 07:16 70 14 30 05/13/20 07:00 85 14 99/47 (64) 100 05/13/20 06:00 92 14 104/48 (66) 99 05/13/20 05:42 88 103/54 05/13/20 05:00 93 15 101/49 (66) 100 05/13/20 04:00 30 05/13/20 04:00 92 05/13/20 04:00 Mechanical Ventilator Mechanical Ventilator 05/13/20 04:00 92 16 102/50 (67) 100 05/13/20 03:30 97.8 92 15 104/48 (66) 100 05/13/20 03:00 96 17 94/57 (69) 100 05/13/20 02:36 79 14 30 05/13/20 02:00 83 14 115/64 (81) 100 05/13/20 01:00 94 15 111/54 (73) 99 05/13/20 00:08 84 108/45 05/13/20 00:00 91 05/13/20 00:00 Mechanical Ventilator Mechanical Ventilator 05/13/20 00:00 30 05/13/20 00:00 98.4 91 14 108/45 (66) 99 05/12/20 23:00 96 18 93/53 (66) 100 05/12/20 22:48 89 14 30 05/12/20 22:00 88 14 94/46 (62) 99 05/12/20 21:00 90 14 99/50 (66) 100 05/12/20 20:00 Mechanical Ventilator Mechanical Ventilator 05/12/20 20:00 30 05/12/20 20:00 98.4 98 17 133/59 (83) 99 05/12/20 19:41 88 15 30 05/12/20 19:30 84 05/12/20 19:00 87 14 105/56 (72) 100 05/12/20 18:34 106 120/63 05/12/20 18:00 102 18 97/51 (66) 99 05/12/20 17:00 105 18 128/65 (86) 99 05/12/20 16:00 90 16 103/48 (66) 100 05/12/20 16:00 Mechanical Ventilator Mechanical Ventilator 05/12/20 16:00 105 05/12/20 15:10 97 15 30 05/12/20 15:00 105 16 119/62 (81) 98 05/12/20 14:00 109 16 116/74 (88) 99 05/12/20 13:00 107 17 104/61 (75) 99 05/12/20 12:19 105 111/52 05/12/20 12:18 99 05/12/20 12:00 112 14 105/43 (63) 99 05/12/20 12:00 88 05/12/20 12:00 100.6 05/12/20 12:00 Mechanical Ventilator Mechanical Ventilator 05/12/20 11:20 118 14 30 05/12/20 10:45 103 14 101/47 (65) 100 05/12/20 10:00 102.0 127 15 112/48 (69) 99 Intake and Output 05/12/20 05/13/20 19:00 07:00 Intake Total 110.00 ml 375.0 ml Output Total 535 ml 500 ml Balance -425.00 ml -125.0 ml IV Total 110.00 ml 110.0 ml Tube Feeding 185 ml Other 80 ml Output Urine Total 535 ml 500 ml # Bowel Movements 2 Objective deferred due to COVID Microbiology Date/Time Source Procedure Growth Status 05/11/20 22:00 Urine,Clean Catch Urine Culture - Preliminary NO GROWTH AFTER 24 HOURS Resulted Laboratory Tests 05/13/20 03:30: White Blood Count 14.5H, Red Blood Count 4.48, Hemoglobin 12.3, Hematocrit 37.6, Mean Corpuscular Volume 84, Mean Corpuscular Hemoglobin 27.5, Mean Corpuscular Hemoglobin Concent 32.7, Red Cell Distribution Width 18.1H, Platelet Count 235, Mean Platelet Volume 5.2L, Neutrophils (%) (Auto) , Lymphocytes (%) (Auto) , Monocytes (%) (Auto) , Eosinophils (%) (Auto) , Basophils (%) (Auto) , Neutrophils % (Manual) [Pending], Lymphocytes % (Manual) [Pending], Platelet Estimate [Pending], Platelet Morphology [Pending], Sodium Level 139, Potassium Level 3.7, Chloride Level 102, Carbon Dioxide Level 23, Anion Gap 15, Blood Urea Nitrogen 83H, Creatinine 4.0H, Estimat Glomerular Filtration Rate 13.1, Glucose Level 139H, Calcium Level 8.3L, Total Bilirubin 1.7H, Direct Bilirubin 0.7H, Aspartate Amino Transf (AST/SGOT) 49H, Alanine Aminotransferase (ALT/SGPT) 65, Alkaline Phosphatase 154H, Total Protein 5.6L, Albumin 2.0L, Globulin 3.6, Albumin/Globulin Ratio 0.6L, Random Vancomycin Level 14.0 Current Medications Medications (Trade) Dose Ordered Sig/Ghislaine Route PRN Reason Start Time Stop Time Status Last Admin Dose Admin Acetaminophen (Tylenol) 500 mg Q4H PRN ORAL Mild Pain (Pain Scale 1-3) 05/11/20 20:00 06/02/20 19:59 05/13/20 08:37 Albuterol Sulfate (Proventil MDI) 2 puff Q4H PRN INH Shortness of Breath 05/11/20 20:00 08/01/20 11:59 Apixaban (Eliquis) 2.5 mg BID ORAL 05/12/20 09:00 08/01/20 17:59 05/13/20 08:35 Aspirin (Ecotrin) 81 mg DAILY ORAL 05/12/20 09:00 06/17/20 15:59 05/13/20 08:35 Diltiazem HCl (Cardizem Tab) 30 mg EVERY 6 HOURS ORAL 05/12/20 09:15 06/11/20 09:14 05/13/20 05:42 Methylprednisolone Sodium Succinate (Solu-MEDROL) 60 mg DAILY IVP 05/12/20 09:00 08/06/20 08:59 05/13/20 08:35 Morphine Sulfate (Morphine Sulfate) 2 mg Q3H PRN IVP For Pain 05/11/20 22:30 05/18/20 22:29 Morphine Sulfate (Morphine Sulfate) 4 mg Q3H PRN IVP SEVERE PAIN 05/11/20 22:30 05/18/20 22:29 Pantoprazole (Protonix) 40 mg DAILY ORAL 05/12/20 09:00 10/6/20 15:59 05/13/20 08:37 Piperacillin Sod/ Tazobactam Sod 3.375 gm/Sodium Chloride 110 ml @ 27.5 mls/hr Q12HR IVPB 05/11/20 21:00 05/18/20 20:59 05/13/20 08:37 Salmeterol Xinafoate/ Fluticasone (Advair 100/50 Diskus) 1 puffs BIDRT INH 05/11/20 22:00 08/09/20 21:59 Vancomycin HCl (Vanco pharmacy to dose) 1 ea DAILY PRN MISC Per rx protocol 05/12/20 09:00 06/10/20 18:44 Assessment/Plan Assessment/Plan Impression: COVID-19 Chronic obstructive pulmonary disease/Asthma Community acquired pneumonia Atrial fibrillation with RVR Elevated troponin Congestive heart Failure sinus tachycardia Hypoxemia transaminitis consider cholecystitis acute on chronic renal failure acute respiratory failure Plan ID noted and discussed Vent support/try to wean wean oxygen feeds per dietary IV Steroids per ID Bronchodilator therapy Eliquis and monitor HH Monitor labs/ renal follow up Covid 19 Isolation- repeat swab+ nutrition and NG feeds reviewed care and optimize medications/laboratory data/nursing notes/ICU care reviewed in detail note reviewed and edited care discussed with RN and RT ICU time spent >40 minutes Aaron Jefferson MD May 13, 2020 09:52
--- NOTE | 2020-05-13 10:00 | NUR ---
NURSE NOTES: Pt repositioned, no distress noted at this time.
[2020-05-13] MEDS: Wixela 100/50 Inhaler - 60 dose INH SCH ×2 (10:29→22:00)
--- NOTE | 2020-05-13 10:30 | NUR ---
NURSE NOTES: Pt seen by Dr Cameron - chart and labs for today reviewed.
--- NOTE | 2020-05-13 10:55 | Infectious Diseases Prog Note ---
Assessment/Plan Assessment/Plan antibiotics : none A 1. COVID 19 pneumonia on 30 liters O2, saturation 100 percent s/p ivermectin 9.7.20 2. renal failure 3. increased LFT 4. COPD 5. CHF 6. asthma 7. respiratory failure 8. leucocytosis likely secondary to steroids P 1. continue solumedrol 2. continue iv zosyn 3. d/c iv vancomycin 4. will follow up cultures Subjective ROS Limited/Unobtainable: Yes Allergies: Coded Allergies: CIPROFLOXACIN (Verified Allergy, Unknown, 09/27/17) Objective Last 24 Hour Vital Signs Date Time Temp Pulse Resp B/P (MAP) Pulse Ox O2 Delivery O2 Flow Rate FiO2 05/13/20 10:00 86 14 108/39 (62) 100 05/13/20 09:00 89 14 105/52 (69) 100 05/13/20 08:00 Mechanical Ventilator Mechanical Ventilator 05/13/20 08:00 98.2 99 19 111/51 (71) 100 05/13/20 07:16 70 14 30 05/13/20 07:00 85 14 99/47 (64) 100 05/13/20 06:00 92 14 104/48 (66) 99 05/13/20 05:42 88 103/54 05/13/20 05:00 93 15 101/49 (66) 100 05/13/20 04:00 30 05/13/20 04:00 92 05/13/20 04:00 Mechanical Ventilator Mechanical Ventilator 05/13/20 04:00 92 16 102/50 (67) 100 05/13/20 03:30 97.8 92 15 104/48 (66) 100 05/13/20 03:00 96 17 94/57 (69) 100 05/13/20 02:36 79 14 30 05/13/20 02:00 83 14 115/64 (81) 100 05/13/20 01:00 94 15 111/54 (73) 99 05/13/20 00:08 84 108/45 05/13/20 00:00 91 05/13/20 00:00 Mechanical Ventilator Mechanical Ventilator 05/13/20 00:00 30 05/13/20 00:00 98.4 91 14 108/45 (66) 99 05/12/20 23:00 96 18 93/53 (66) 100 9/15/20 22:48 89 14 30 05/12/20 22:00 88 14 94/46 (62) 99 05/12/20 21:00 90 14 99/50 (66) 100 05/12/20 20:00 Mechanical Ventilator Mechanical Ventilator 05/12/20 20:00 30 05/12/20 20:00 98.4 98 17 133/59 (83) 99 05/12/20 19:41 88 15 30 05/12/20 19:30 84 05/12/20 19:00 87 14 105/56 (72) 100 05/12/20 18:34 106 120/63 05/12/20 18:00 102 18 97/51 (66) 99 05/12/20 17:00 105 18 128/65 (86) 99 05/12/20 16:00 90 16 103/48 (66) 100 05/12/20 16:00 Mechanical Ventilator Mechanical Ventilator 05/12/20 16:00 105 05/12/20 15:10 97 15 30 05/12/20 15:00 105 16 119/62 (81) 98 05/12/20 14:00 109 16 116/74 (88) 99 05/12/20 13:00 107 17 104/61 (75) 99 05/12/20 12:19 105 111/52 05/12/20 12:18 99 05/12/20 12:00 112 14 105/43 (63) 99 05/12/20 12:00 88 05/12/20 12:00 100.6 05/12/20 12:00 Mechanical Ventilator Mechanical Ventilator 05/12/20 11:20 118 14 30 Height (Feet): 5 Height (Inches): 3.00 Weight (Pounds): 160 HEENT: other - intubated Respiratory/Chest: lungs clear Cardiovascular: normal rate, regular rhythm, no gallop/murmur Abdomen: soft, non tender Extremities: no edema Microbiology Date/Time Source Procedure Growth Status 05/11/20 22:00 Urine,Clean Catch Urine Culture - Preliminary NO GROWTH AFTER 24 HOURS Resulted Laboratory Tests Test 05/13/20 03:30 White Blood Count 14.5 K/UL (4.8-10.8) H Red Blood Count 4.48 M/UL (4.20-5.40) Hemoglobin 12.3 G/DL (12.0-16.0) Hematocrit 37.6 % (37.0-47.0) Mean Corpuscular Volume 84 FL (80-99) Mean Corpuscular Hemoglobin 27.5 PG (27.0-31.0) Mean Corpuscular Hemoglobin Concent 32.7 G/DL (32.0-36.0) Red Cell Distribution Width 18.1 % (11.6-14.8) H Platelet Count 235 K/UL (150-450) Mean Platelet Volume 5.2 FL (6.5-10.1) L Neutrophils (%) (Auto) % (45.0-75.0) Lymphocytes (%) (Auto) % (20.0-45.0) Monocytes (%) (Auto) % (1.0-10.0) Eosinophils (%) (Auto) % (0.0-3.0) Basophils (%) (Auto) % (0.0-2.0) Differential Total Cells Counted 100 Neutrophils % (Manual) 92 % (45-75) H Lymphocytes % (Manual) 2 % (20-45) L Monocytes % (Manual) 5 % (1-10) Eosinophils % (Manual) 0 % (0-3) Basophils % (Manual) 0 % (0-2) Band Neutrophils 1 % (0-8) Platelet Estimate Adequate Platelet Morphology Normal Red Blood Cell Morphology Normal Sodium Level 139 MMOL/L (136-145) Potassium Level 3.7 MMOL/L (3.5-5.1) Chloride Level 102 MMOL/L (98-107) Carbon Dioxide Level 23 MMOL/L (21-32) Anion Gap 15 mmol/L (5-15) Blood Urea Nitrogen 83 mg/dL (7-18) H Creatinine 4.0 MG/DL (0.55-1.30) H Estimat Glomerular Filtration Rate 13.1 mL/min (>60) Glucose Level 139 MG/DL (74-106) H Calcium Level 8.3 MG/DL (8.5-10.1) L Total Bilirubin 1.7 MG/DL (0.2-1.0) H Direct Bilirubin 0.7 MG/DL (0.0-0.3) H Aspartate Amino Transf (AST/SGOT) 49 U/L (15-37) H Alanine Aminotransferase (ALT/SGPT) 65 U/L (12-78) Alkaline Phosphatase 154 U/L (46-116) H Total Protein 5.6 G/DL (6.4-8.2) L Albumin 2.0 G/DL (3.4-5.0) L Globulin 3.6 g/dL Albumin/Globulin Ratio 0.6 (1.0-2.7) L Random Vancomycin Level 14.0 ug/mL Current Medications Medications (Trade) Dose Ordered Sig/Ghislaine Route PRN Reason Start Time Stop Time Status Last Admin Dose Admin Acetaminophen (Tylenol) 500 mg Q4H PRN ORAL Mild Pain (Pain Scale 1-3) 05/11/20 20:00 06/02/20 19:59 05/13/20 08:37 Albuterol Sulfate (Proventil MDI) 2 puff Q4H PRN INH Shortness of Breath 05/11/20 20:00 08/01/20 11:59 05/13/20 10:30 Apixaban (Eliquis) 2.5 mg BID ORAL 05/12/20 09:00 08/01/20 17:59 05/13/20 08:35 Aspirin (Ecotrin) 81 mg DAILY ORAL 05/12/20 09:00 06/17/20 15:59 05/13/20 08:35 Diltiazem HCl (Cardizem Tab) 30 mg EVERY 6 HOURS ORAL 05/12/20 09:15 06/11/20 09:14 05/13/20 05:42 Methylprednisolone Sodium Succinate (Solu-MEDROL) 60 mg DAILY IVP 05/12/20 09:00 08/06/20 08:59 05/13/20 08:35 Morphine Sulfate (Morphine Sulfate) 2 mg Q3H PRN IVP For Pain 05/11/20 22:30 05/18/20 22:29 Morphine Sulfate (Morphine Sulfate) 4 mg Q3H PRN IVP SEVERE PAIN 05/11/20 22:30 05/18/20 22:29 Pantoprazole (Protonix) 40 mg DAILY ORAL 05/12/20 09:00 06/02/20 15:59 05/13/20 08:37 Piperacillin Sod/ Tazobactam Sod 3.375 gm/Sodium Chloride 110 ml @ 27.5 mls/hr Q12HR IVPB 05/11/20 21:00 05/18/20 20:59 05/13/20 08:37 Salmeterol Xinafoate/ Fluticasone (Advair 100/50 Diskus) 1 puffs BIDRT INH 05/11/20 22:00 08/09/20 21:59 05/13/20 10:29 Vancomycin HCl (Vanco pharmacy to dose) 1 ea DAILY PRN MISC Per rx protocol 05/12/20 09:00 06/10/20 18:44 Vancomycin HCl 1 gm/Dextrose 275 ml @ 183.708 mls/hr ONCE ONCE IVPB 05/13/20 12:00 05/13/20 13:29 Camilo Cameron MD May 13, 2020 10:55
[2020-05-13] MEDS ORDERED: Vancomycin 1gm/D5W 275ml IVPB ONE ×2 (12:00)
--- NOTE | 2020-05-13 12:00 | NUR ---
NURSE NOTES: Pt repositioned, oral care provided. 1 maroon BM noted - pt cleaned. Dr Linn notified; order received to collect OBS. Pt afebrile.
--- NOTE | 2020-05-13 12:57 | NUR ---
CASE MANAGEMENT:REVIEW 05/13/20 SI;REINTUBATED 05/12/20 . RESPIRATORY ACIDOSIS NSTEMI. COVID-19 + PNEUMONIA.RENAL FAILURE . LEUKOCYTOSIS ON SOLUMEDROL 99.1 22 119/59 93% BiPAP FIO2 40% WBC 14.5 BUN/CREAT 82/3.8 T.CLAYTON/D.CLAYTON 1.7/0.7 ALKP 154 ALB 2.0 AB05/11/20 pH 7.241 pCO2 55.1 AB05/12/20 pH 7.539 pCO2 28.5 pO2 161.3 IS;IV ZOSYN BID IV SOLU MEDROL QD ADVAIR INH BID ALBUTEROL MDI INH Q4HR/PRN \: TRANSFERED TO ICU 05/11/20 TRANSFERRED FROM MED SURG TO RK 05/11/20 @ 0812 RK STATUS DCP;FROM HOME PLAN: CONT WOUND CARE CONT RESPIRATORY CARE Addendum: 05/13/20 at 1317 by BRITTNEY ODONNELL LVN INTERQUAL MET FOR CRITICAL 05/12(INTUBATED) +05/13 (STILL INTUBATED)
--- NOTE | 2020-05-13 13:00 | NUR ---
NURSE NOTES: Pt failed weaning trial on PS 10 FiO2 30%. RSBI 600 - RR 40s - TV 80s - labored respirations. Placed back on AC mode with previous settings. Addendum: 05/13/20 at 1403 by Lakia Kerns RN Amendment: Pt failed weaning trial on PS 10 FiO2 30% (within 7 min). RSBI 600 - RR 40s - TV 80s - labored respirations. Placed back on AC mode with previous settings.
--- NOTE | 2020-05-13 14:00 | NUR ---
NURSE NOTES: Pt repositioned. asleep at this time; no distress noted.
--- NOTE | 2020-05-13 14:33 | Surgery Progress Note ---
Surgery Progress Note Subjective Additional Comments no acute events labs noted exam stable Objective Last 24 Hour Vital Signs Date Time Temp Pulse Resp B/P (MAP) Pulse Ox O2 Delivery O2 Flow Rate FiO2 05/13/20 14:00 83 15 95/45 (62) 100 05/13/20 13:00 86 14 101/52 (68) 99 05/13/20 12:18 95 104/52 05/13/20 12:00 30 05/13/20 12:00 80 05/13/20 12:00 Mechanical Ventilator Mechanical Ventilator 05/13/20 12:00 97.9 82 14 105/53 (70) 99 05/13/20 11:15 90 14 30 05/13/20 11:00 84 14 111/45 (67) 100 05/13/20 10:00 86 14 108/39 (62) 100 05/13/20 09:00 89 14 105/52 (69) 100 05/13/20 08:00 30 05/13/20 08:00 Mechanical Ventilator Mechanical Ventilator 05/13/20 08:00 86 05/13/20 08:00 98.2 99 19 111/51 (71) 100 05/13/20 07:16 70 14 30 05/13/20 07:00 85 14 99/47 (64) 100 05/13/20 06:00 92 14 104/48 (66) 99 05/13/20 05:42 88 103/54 05/13/20 05:00 93 15 101/49 (66) 100 05/13/20 04:00 30 05/13/20 04:00 92 05/13/20 04:00 Mechanical Ventilator Mechanical Ventilator 05/13/20 04:00 92 16 102/50 (67) 100 05/13/20 03:30 97.8 92 15 104/48 (66) 100 05/13/20 03:00 96 17 94/57 (69) 100 05/13/20 02:36 79 14 30 05/13/20 02:00 83 14 115/64 (81) 100 05/13/20 01:00 94 15 111/54 (73) 99 05/13/20 00:08 84 108/45 05/13/20 00:00 91 05/13/20 00:00 Mechanical Ventilator Mechanical Ventilator 05/13/20 00:00 30 05/13/20 00:00 98.4 91 14 108/45 (66) 99 05/12/20 23:00 96 18 93/53 (66) 100 05/12/20 22:48 89 14 30 05/12/20 22:00 88 14 94/46 (62) 99 05/12/20 21:00 90 14 99/50 (66) 100 05/12/20 20:00 Mechanical Ventilator Mechanical Ventilator 05/12/20 20:00 30 05/12/20 20:00 98.4 98 17 133/59 (83) 99 05/12/20 19:41 88 15 30 05/12/20 19:30 84 05/12/20 19:00 87 14 105/56 (72) 100 05/12/20 18:34 106 120/63 05/12/20 18:00 102 18 97/51 (66) 99 05/12/20 17:00 105 18 128/65 (86) 99 05/12/20 16:00 90 16 103/48 (66) 100 05/12/20 16:00 Mechanical Ventilator Mechanical Ventilator 05/12/20 16:00 105 05/12/20 15:10 97 15 30 05/12/20 15:00 105 16 119/62 (81) 98 I&O Intake and Output 05/12/20 05/13/20 19:00 07:00 Intake Total 110.00 ml 375.0 ml Output Total 535 ml 500 ml Balance -425.00 ml -125.0 ml IV Total 110.00 ml 110.0 ml Tube Feeding 185 ml Other 80 ml Output Urine Total 535 ml 500 ml # Bowel Movements 2 Dressing: saturated Cardiovascular: RSR Respiratory: decreased breath sounds Abdomen: soft, present bowel sounds Extremities: no cyanosis Laboratory Tests Test 05/13/20 03:30 White Blood Count 14.5 K/UL (4.8-10.8) H Red Blood Count 4.48 M/UL (4.20-5.40) Hemoglobin 12.3 G/DL (12.0-16.0) Hematocrit 37.6 % (37.0-47.0) Mean Corpuscular Volume 84 FL (80-99) Mean Corpuscular Hemoglobin 27.5 PG (27.0-31.0) Mean Corpuscular Hemoglobin Concent 32.7 G/DL (32.0-36.0) Red Cell Distribution Width 18.1 % (11.6-14.8) H Platelet Count 235 K/UL (150-450) Mean Platelet Volume 5.2 FL (6.5-10.1) L Neutrophils (%) (Auto) % (45.0-75.0) Lymphocytes (%) (Auto) % (20.0-45.0) Monocytes (%) (Auto) % (1.0-10.0) Eosinophils (%) (Auto) % (0.0-3.0) Basophils (%) (Auto) % (0.0-2.0) Differential Total Cells Counted 100 Neutrophils % (Manual) 92 % (45-75) H Lymphocytes % (Manual) 2 % (20-45) L Monocytes % (Manual) 5 % (1-10) Eosinophils % (Manual) 0 % (0-3) Basophils % (Manual) 0 % (0-2) Band Neutrophils 1 % (0-8) Platelet Estimate Adequate Platelet Morphology Normal Red Blood Cell Morphology Normal Sodium Level 139 MMOL/L (136-145) Potassium Level 3.7 MMOL/L (3.5-5.1) Chloride Level 102 MMOL/L (98-107) Carbon Dioxide Level 23 MMOL/L (21-32) Anion Gap 15 mmol/L (5-15) Blood Urea Nitrogen 83 mg/dL (7-18) H Creatinine 4.0 MG/DL (0.55-1.30) H Estimat Glomerular Filtration Rate 13.1 mL/min (>60) Glucose Level 139 MG/DL (74-106) H Calcium Level 8.3 MG/DL (8.5-10.1) L Total Bilirubin 1.7 MG/DL (0.2-1.0) H Direct Bilirubin 0.7 MG/DL (0.0-0.3) H Aspartate Amino Transf (AST/SGOT) 49 U/L (15-37) H Alanine Aminotransferase (ALT/SGPT) 65 U/L (12-78) Alkaline Phosphatase 154 U/L (46-116) H Total Protein 5.6 G/DL (6.4-8.2) L Albumin 2.0 G/DL (3.4-5.0) L Globulin 3.6 g/dL Albumin/Globulin Ratio 0.6 (1.0-2.7) L Random Vancomycin Level 14.0 ug/mL Plan Problems: (1) Elevated troponin (2) Atrial fibrillation with RVR (3) COVID-19 Assessment & Plan: ++ as per pulm and ID DAILY ESTIMATED NEEDS: Needs based on Critical Care, ARF/ 56kg abw 22-28 kcals/kg 6261-1571 total kcals 0.8-1.5 (increase w/ renal improvement) g protein/kg 45-84 g total protein 25-30 mL/kg 4479-1411 total fluid mLs NUTRITION DIAGNOSIS: * Altered nutrition related lab values r/t clinical status as evidenced by elev BUN(82), creat(3.8) trending up, critical ABG (low pH, elev CO2)-> now improved. * Swallowing difficulty R/T respiratory status as evidenced by s/p oral intubation, on OGT feeds. 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: RESIDENT SERVICES COORDINATOR eval post extubation ENTERAL NUTRITION RECOMMENDATIONS: Nepro @ 35ml/hr x 24 hrs to provide 840ml, 1512kcal, 68g prot, 610ml free water * W/ worsening renal fxn, rec to continue Nepro * As tolerated, increase goal rate to 35ml/hr x 24 hrs to meet 100% est kcal/prot needs ADDITIONAL RECOMMENDATIONS: 1) Calibrated bedscale wt 2) Monitor renal fxn and lytes, need to continue Nepro Creat trending up 3) Rec niss w/ solumedrol (4) Community acquired pneumonia (5) COPD (chronic obstructive pulmonary disease) (6) Pulmonary fibrosis (7) Asthma (8) History of asthma (9) NSTEMI (non-ST elevated myocardial infarction) (10) Moderate to severe pulmonary hypertension (11) Asthma exacerbation (12) Abnormal LFTs Assessment & Plan: afebrile, HD stable labs noted lft's elevated US reviewed exam benign gb likely reactive from underlying pathology unlikely cholecystitis clinically fluid overload trend labs will monitor exam clinically covid + prognosis guarded cxr reviewed on abx Gallbladder demonstrates wall thickening and wall edema, gallbladder wall measuring up to 6 mm thick. There are gallstones. Sonographic Escoto's sign is negative. Common bile duct measures 3 mm in diameter. No intrahepatic biliary ductal dilatation. Liver demonstrates normal echogenicity, no focal abnormality. Portal vein and hepatic veins are patent. Pancreas is unremarkable. Spleen is unremarkable. Left kidney measures 9.2 cm in length. Right kidney measures 9.9 cm length. Both kidneys demonstrate normal echogenicity. There is no hydronephrosis. Small cyst is seen in the right kidney. . Abdominal aorta was not imaged . There is trace ascites. There is a small right pleural effusion incidentally noted Impression: Small right pleural effusion. Trace ascites Cholelithiasis. Gallbladder wall thickening may be related to hemodynamic factors causing the pleural fluid and ascites, but could also indicate acute cholecystitis. Consider nuclear medicine hepatobiliary scan if there is high clinical suspicion. Negative for dilated bile ducts Small right renal cyst incidentally noted (13) Acute respiratory failure with hypoxia Quentin Sanchez May 13, 2020 14:33
--- NOTE | 2020-05-13 16:00 | NUR ---
NURSE NOTES: Pt repositioned, oral care provided; no distress noted. Will continue monitoring.
[2020-05-13] MEDS ORDERED: NS 275ml ONE (16:13)
--- NOTE | 2020-05-13 16:23 | General Progress Note ---
Subjective ROS Limited/Unobtainable: No Constitutional: Reports: malaise, weakness HEENT: Reports: no symptoms Cardiovascular: Reports: no symptoms Respiratory: Reports: no symptoms, shortness of breath, sputum Gastrointestinal/Abdominal: Reports: blood in stool Genitourinary: Reports: no symptoms Neurologic/Psychiatric: Reports: no symptoms Endocrine: Reports: no symptoms Hematologic/Lymphatic: Reports: anemia Allergies: Coded Allergies: CIPROFLOXACIN (Verified Allergy, Unknown, 09/27/17) All Systems: reviewed and negative except above Subjective no events. stable on the vent. no fever or chills. alert. follows simple commands. tolerating feeds. ?small amount of blood in the stool. Objective Last 24 Hour Vital Signs Date Time Temp Pulse Resp B/P (MAP) Pulse Ox O2 Delivery O2 Flow Rate FiO2 05/13/20 14:00 83 15 95/45 (62) 100 05/13/20 13:00 86 14 101/52 (68) 99 05/13/20 12:18 95 104/52 05/13/20 12:00 30 05/13/20 12:00 80 05/13/20 12:00 Mechanical Ventilator Mechanical Ventilator 05/13/20 12:00 97.9 82 14 105/53 (70) 99 05/13/20 11:15 90 14 30 05/13/20 11:00 84 14 111/45 (67) 100 05/13/20 10:00 86 14 108/39 (62) 100 05/13/20 09:00 89 14 105/52 (69) 100 05/13/20 08:00 30 05/13/20 08:00 Mechanical Ventilator Mechanical Ventilator 05/13/20 08:00 86 05/13/20 08:00 98.2 99 19 111/51 (71) 100 05/13/20 07:16 70 14 30 05/13/20 07:00 85 14 99/47 (64) 100 05/13/20 06:00 92 14 104/48 (66) 99 05/13/20 05:42 88 103/54 05/13/20 05:00 93 15 101/49 (66) 100 05/13/20 04:00 30 05/13/20 04:00 92 05/13/20 04:00 Mechanical Ventilator Mechanical Ventilator 05/13/20 04:00 92 16 102/50 (67) 100 05/13/20 03:30 97.8 92 15 104/48 (66) 100 05/13/20 03:00 96 17 94/57 (69) 100 05/13/20 02:36 79 14 30 05/13/20 02:00 83 14 115/64 (81) 100 05/13/20 01:00 94 15 111/54 (73) 99 05/13/20 00:08 84 108/45 05/13/20 00:00 91 05/13/20 00:00 Mechanical Ventilator Mechanical Ventilator 05/13/20 00:00 30 05/13/20 00:00 98.4 91 14 108/45 (66) 99 05/12/20 23:00 96 18 93/53 (66) 100 05/12/20 22:48 89 14 30 05/12/20 22:00 88 14 94/46 (62) 99 05/12/20 21:00 90 14 99/50 (66) 100 05/12/20 20:00 Mechanical Ventilator Mechanical Ventilator 05/12/20 20:00 30 05/12/20 20:00 98.4 98 17 133/59 (83) 99 05/12/20 19:41 88 15 30 05/12/20 19:30 84 05/12/20 19:00 87 14 105/56 (72) 100 05/12/20 18:34 106 120/63 05/12/20 18:00 102 18 97/51 (66) 99 05/12/20 17:00 105 18 128/65 (86) 99 Intake and Output 05/12/20 05/13/20 19:00 07:00 Intake Total 110.00 ml 375.0 ml Output Total 535 ml 500 ml Balance -425.00 ml -125.0 ml IV Total 110.00 ml 110.0 ml Tube Feeding 185 ml Other 80 ml Output Urine Total 535 ml 500 ml # Bowel Movements 2 Laboratory Tests 05/13/20 03:30: White Blood Count 14.5H, Red Blood Count 4.48, Hemoglobin 12.3, Hematocrit 37.6, Mean Corpuscular Volume 84, Mean Corpuscular Hemoglobin 27.5, Mean Corpuscular Hemoglobin Concent 32.7, Red Cell Distribution Width 18.1H, Platelet Count 235, Mean Platelet Volume 5.2L, Neutrophils (%) (Auto) , Lymphocytes (%) (Auto) , Monocytes (%) (Auto) , Eosinophils (%) (Auto) , Basophils (%) (Auto) , Differential Total Cells Counted 100, Neutrophils % (Manual) 92H, Lymphocytes % (Manual) 2L, Monocytes % (Manual) 5, Eosinophils % (Manual) 0, Basophils % (Manual) 0, Band Neutrophils 1, Platelet Estimate Adequate, Platelet Morphology Normal, Red Blood Cell Morphology Normal, Sodium Level 139, Potassium Level 3.7, Chloride Level 102, Carbon Dioxide Level 23, Anion Gap 15, Blood Urea Nitrogen 83H, Creatinine 4.0H, Estimat Glomerular Filtration Rate 13.1, Glucose Level 139H, Calcium Level 8.3L, Total Bilirubin 1.7H, Direct Bilirubin 0.7H, Aspartate Amino Transf (AST/SGOT) 49H, Alanine Aminotransferase (ALT/SGPT) 65, Alkaline Phosphatase 154H, Total Protein 5.6L, Albumin 2.0L, Globulin 3.6, Albumin/Globulin Ratio 0.6L, Random Vancomycin Level 14.0 Height (Feet): 5 Height (Inches): 3.00 Weight (Pounds): 160 Objective General Appearance: WD/WN, no apparent distress, alert. orally intubated EENT: PERRL/EOMI Neck: non-tender, normal alignment, supple Cardiovascular: normal rate, regular rhythm Respiratory/Chest: chest wall non-tender, lungs clear, normal breath sounds, no respiratory distress, no accessory muscle use Abdomen: normal bowel sounds, non tender, soft, no organomegaly Edema: no edema noted Arm (L), no edema noted Arm (R) Neurologic: billet shearer II-XII grossly normal, alert, oriented x 3, responsive Skin: normal pigmentation Lymphatic: normal anterior cervical (L), normal anterior cervical (R) Assessment/Plan Problem List: (1) Pulmonary fibrosis ICD Codes: J84.10 - Pulmonary fibrosis, unspecified SNOMED: 47087686 (2) History of asthma ICD Codes: Z87.09 - Personal history of other diseases of the respiratory system SNOMED: 430318605 (3) Asthma ICD Codes: J45.909 - Unspecified asthma, uncomplicated SNOMED: 607540945 (4) NSTEMI (non-ST elevated myocardial infarction) ICD Codes: I21.4 - Non-ST elevation (NSTEMI) myocardial infarction SNOMED: 793356801 (5) Elevated troponin ICD Codes: R79.89 - Other specified abnormal findings of blood chemistry SNOMED: 585028686, 107076544, 309359847 (6) COPD (chronic obstructive pulmonary disease) ICD Codes: J44.9 - Chronic obstructive pulmonary disease, unspecified SNOMED: 13975320 (7) Atrial fibrillation with RVR ICD Codes: I48.91 - Unspecified atrial fibrillation SNOMED: 324836209585081 (8) Community acquired pneumonia ICD Codes: J18.9 - Pneumonia, unspecified organism SNOMED: 342271302 Status: stable Assessment/Plan: cont current rx vent support resp rx and suctioning check sputum cultures wean per pulm monitor cxr tube feeds stress ulcer prophylaxis monitor labs/renal fxn resp rx/mdi rate control with Bradford Yates MD May 13, 2020 16:23
--- NOTE | 2020-05-13 18:00 | NUR ---
NURSE NOTES: Pt repositioned and cleaned. OBS collected and sent down to lab.
--- NOTE | 2020-05-13 19:00 | NUR ---
NURSE HAND-OFF REPORT: Latest Vital Signs: Temperature 98.2 , Pulse 91 , B/P 95 /58 , Respiratory Rate 14 , O2 SAT 100 , Mechanical Ventilator, O2 Flow Rate 4.0 . EKG Rhythm: Afib Rhythm change?: Y MD Notified?: n/a MD Response: n/a Latest Lechuga Fall Score: 50 Fall Risk: High Risk Safety Measures: Call light Within Reach, Bed Alarm Zone 1, Side Rails Side Rails x3, Bed position Low and Locked. Fall Precautions: Yellow Socks Door Sign Patient Fall Education Report given to DAMIAN Hughes.
--- NOTE | 2020-05-13 19:55 | NUR ---
NURSE NOTES: LE: PATIENT ASLEEP STATUS, OPEN EYES TO NAME, DENIED PAIN OR SOB, ON ETT TO VENT AC14/TV500/FIO2 30%/PEEP5, O2 SATURATION 100% NOTED, HR 90'S/MIN A-FIB NOTED, OGT INTACT AND PATENT, NEPRO AT 35ML/HR , NO RESIDUE NOTED, KEPT HOB 30 DEGREES AND ASPIRATION PRECAUTION, ABDOMEN SOFT, NON TENDER, NO BM STATUS, F/C INTACT AND PATENT, JAMEEL COLOR URINE WITH SEDIMENTS OUTED, PPL TO LEFT AC 20G, LEAKED, REMOVED LINE AND INSERTED LEFT FA 20G AT THIS TIME, 2 POINT SOFT RESTRAINTS, MADE LOWER BED POSITION, ON BED ALARM AND LOCKED, PLACED CALL LIGHT WITHIN REACH, WILL CONTINUE TO MONITOR.
--- NOTE | 2020-05-13 21:50 | NUR ---
NURSE NOTES: PATIENT CALM, ASLEEP STATUS, REPOSITIONED, WILL CONTINUE TO MONITOR.
--- NOTE | 2020-05-13 23:05 | NUR ---
NURSE NOTES: le: PATIENT CALM, ASLEEP STATUS, DISCONTINUED RESTRAINTS, WILL CONTINUE TO MONITOR.
[2020-05-14] VITALS (30 sets, daily range): BP systolic 81–125; BP diastolic 41–86
--- NOTE | 2020-05-14 01:07 | NUR ---
NURSE NOTES: VSS, NO PAIN OR SOB NOTED, WILL CONTINUE PLAN OF CARE.
--- NOTE | 2020-05-14 02:10 | NUR ---
NURSE NOTES: PATIENT TRIED TO TOUCH LINE AND ENDOTUBE, APPLIED 2 POINT SOFT RESTRAINTS, WILL CONTINUE TO MONITOR.
--- NOTE | 2020-05-14 02:29 | Cardiology Progress Note ---
Subjective DATE OF SERVICE: May 13, 2020 Condition remains critical; patient remains on [facility] ventilation. Monitor: AFib with episodes of RVR and nonsustained VTach. Lactic acidosis resolved BP has dropped as well with deterioration of acid-base status. Episodes of tachyarrhythmias noted. Objective Last 24 Hour Vital Signs Date Time Temp Pulse Resp B/P (MAP) Pulse Ox O2 Delivery O2 Flow Rate FiO2 05/14/20 02:00 90 14 94/56 (69) 100 05/14/20 01:00 99 15 97/46 (63) 100 05/14/20 00:30 96 16 104/65 (78) 100 05/14/20 00:15 96 14 94/53 (67) 100 05/14/20 00:00 Mechanical Ventilator Mechanical Ventilator Mechanical Ventilator 05/14/20 00:00 98.5 90 14 86/51 (63) 100 05/14/20 00:00 30 05/13/20 23:58 89 05/13/20 23:55 87 91/44 05/13/20 23:00 98 21 98/43 (61) 100 05/13/20 22:42 103 14 30 05/13/20 22:00 98 16 114/59 (77) 100 05/13/20 21:15 93 14 120/70 (87) 100 05/13/20 21:00 90 14 89/41 (57) 100 05/13/20 20:00 30 05/13/20 20:00 Mechanical Ventilator Mechanical Ventilator Mechanical Ventilator 05/13/20 20:00 98.4 96 14 103/51 (68) 100 05/13/20 19:32 84 05/13/20 19:29 98 14 30 05/13/20 19:00 91 14 95/58 (70) 100 05/13/20 18:00 96 14 91/51 (64) 100 05/13/20 17:27 99 116/48 05/13/20 17:00 91 14 101/50 (67) 100 05/13/20 16:56 92 14 99 Mechanical Ventilator 05/13/20 16:00 98.2 89 14 98/44 (62) 100 05/13/20 16:00 87 05/13/20 16:00 Mechanical Ventilator Mechanical Ventilator 05/13/20 16:00 30 05/13/20 15:25 92 14 30 05/13/20 15:00 91 14 92/49 (63) 100 05/13/20 14:00 83 15 95/45 (62) 100 05/13/20 13:00 86 14 101/52 (68) 99 05/13/20 12:18 95 104/52 05/13/20 12:00 30 05/13/20 12:00 80 05/13/20 12:00 Mechanical Ventilator Mechanical Ventilator 05/13/20 12:00 97.9 82 14 105/53 (70) 99 05/13/20 11:15 90 14 30 05/13/20 11:00 84 14 111/45 (67) 100 05/13/20 10:00 86 14 108/39 (62) 100 05/13/20 09:00 89 14 105/52 (69) 100 05/13/20 08:00 30 05/13/20 08:00 Mechanical Ventilator Mechanical Ventilator 05/13/20 08:00 86 05/13/20 08:00 98.2 99 19 111/51 (71) 100 05/13/20 07:16 70 14 30 05/13/20 07:00 85 14 99/47 (64) 100 05/13/20 06:00 92 14 104/48 (66) 99 05/13/20 05:42 88 103/54 05/13/20 05:00 93 15 101/49 (66) 100 05/13/20 04:00 30 05/13/20 04:00 92 05/13/20 04:00 Mechanical Ventilator Mechanical Ventilator 05/13/20 04:00 92 16 102/50 (67) 100 05/13/20 03:30 97.8 92 15 104/48 (66) 100 05/13/20 03:00 96 17 94/57 (69) 100 05/13/20 02:36 79 14 30 ROS: unchanged from my eval of 05/03/20 HEENT: Orally intubated, Mechanically Ventilated, Thin secretions ET Tube LUNGS: no accessory muscle use, expiratory wheezing, diminished breath sounds CARDIAC: normal S1 and S2, no murmur, irregularly irregular ABDOMEN: normal bowel sounds, non tender, soft, no organomegaly EXTREMITIES: no calf tenderness, +1 edema Laboratory Tests Test 05/13/20 03:30 05/13/20 18:00 White Blood Count 14.5 K/UL (4.8-10.8) H Red Blood Count 4.48 M/UL (4.20-5.40) Hemoglobin 12.3 G/DL (12.0-16.0) Hematocrit 37.6 % (37.0-47.0) Mean Corpuscular Volume 84 FL (80-99) Mean Corpuscular Hemoglobin 27.5 PG (27.0-31.0) Mean Corpuscular Hemoglobin Concent 32.7 G/DL (32.0-36.0) Red Cell Distribution Width 18.1 % (11.6-14.8) H Platelet Count 235 K/UL (150-450) Mean Platelet Volume 5.2 FL (6.5-10.1) L Neutrophils (%) (Auto) % (45.0-75.0) Lymphocytes (%) (Auto) % (20.0-45.0) Monocytes (%) (Auto) % (1.0-10.0) Eosinophils (%) (Auto) % (0.0-3.0) Basophils (%) (Auto) % (0.0-2.0) Differential Total Cells Counted 100 Neutrophils % (Manual) 92 % (45-75) H Lymphocytes % (Manual) 2 % (20-45) L Monocytes % (Manual) 5 % (1-10) Eosinophils % (Manual) 0 % (0-3) Basophils % (Manual) 0 % (0-2) Band Neutrophils 1 % (0-8) Platelet Estimate Adequate Platelet Morphology Normal Red Blood Cell Morphology Normal Sodium Level 139 MMOL/L (136-145) Potassium Level 3.7 MMOL/L (3.5-5.1) Chloride Level 102 MMOL/L (98-107) Carbon Dioxide Level 23 MMOL/L (21-32) Anion Gap 15 mmol/L (5-15) Blood Urea Nitrogen 83 mg/dL (7-18) H Creatinine 4.0 MG/DL (0.55-1.30) H Estimat Glomerular Filtration Rate 13.1 mL/min (>60) Glucose Level 139 MG/DL (74-106) H Calcium Level 8.3 MG/DL (8.5-10.1) L Total Bilirubin 1.7 MG/DL (0.2-1.0) H Direct Bilirubin 0.7 MG/DL (0.0-0.3) H Aspartate Amino Transf (AST/SGOT) 49 U/L (15-37) H Alanine Aminotransferase (ALT/SGPT) 65 U/L (12-78) Alkaline Phosphatase 154 U/L (46-116) H Total Protein 5.6 G/DL (6.4-8.2) L Albumin 2.0 G/DL (3.4-5.0) L Globulin 3.6 g/dL Albumin/Globulin Ratio 0.6 (1.0-2.7) L Random Vancomycin Level 14.0 ug/mL Stool Occult Blood Pending Microbiology Date/Time Source Procedure Growth Status 05/11/20 22:00 Urine,Clean Catch Urine Culture - Preliminary NO GROWTH AFTER 24 HOURS Resulted Assessment/Plan Assessment/Plan Acute on chronic respiratory acidosis Acute respiratory failure Shock LE edema due to severe pulmonary hypertension and right heart strain COPD exacerb with active bronchospasm Lactic acidosis COVID 19 PNA Acute on chr renal failure - now with hyperkalemia Chronic systolic/diastolic CHF Pulmonary fibrosis with chronic hypoxia Paroxysmal AFib with RVR Hx Multifocal atrial arrhythmias Pulmonary HTN - severe Hx NSVTach Acute myocardial ischemia Vent support Hold diltiazem for low BP Steroids per pulmonary Inhaled bronchodilators IVF adjusted Reassess for diuresis; not presently indicated Full anticoagulation for cardioembolic prophyl Isolation Anti-viral rx per Simone Shirley MD May 14, 2020 02:29
--- NOTE | 2020-05-14 04:10 | NUR ---
NURSE NOTES: MORNING CARE AND ORAL CARE WAS DONE, PATIENT AWOKE, FATIGUE, IMPULSIVE, SECURED RESTRAINTS, WILL CONTINUE TO MONITOR.
[2020-05-14 04:37] LABS: HEMATOCRIT 38.4 % (37.0-47.0); HEMOGLOBIN 12.5 G/DL (12.0-16.0); MEAN CORPUSCULAR VOLUME 84 FL (80-99); PLATELET COUNT 244 K/UL (150-450); RED BLOOD COUNT 4.55 M/UL (4.20-5.40); RED CELL DISTRIBUTION WIDTH 18.4 % (11.6-14.8); WHITE BLOOD COUNT 14.1 K/UL (4.8-10.8)
[2020-05-14 05:10] LABS: ALBUMIN 1.9 G/DL (3.4-5.0); ALBUMIN/GLOBULIN RATIO 0.5 (1.0-2.7); BILIRUBIN,TOTAL 1.1 MG/DL (0.2-1.0); CALCIUM 8.2 MG/DL (8.5-10.1); POTASSIUM 2.9 MMOL/L (3.5-5.1)
[2020-05-14 05:12] LABS: BILIRUBIN,DIRECT 0.4 MG/DL (0.0-0.3)
--- NOTE | 2020-05-14 05:20 | NUR ---
NURSE NOTES: RECEIVED PHONE CALL FROM PT'S DAUGHTER (IVONNE) THAT UPDATED REGARDING PT'S SITUATION.
[2020-05-14] MEDS: dilTIAZem HCl 30mg tab ORAL SCH ×4 (05:43→23:00)
--- NOTE | 2020-05-14 06:10 | NUR ---
NURSE NOTES: CLEANED THE PATIENT DUE TO BM, NO ACUTE DISTRESS NOTED AT THIS SHIFT.
--- NOTE | 2020-05-14 06:43 | NUR ---
NURSE NOTES: CALLED DR. HUNTER REGARDING POTASSIUM LEVEL 2.9 THAT MD WAS AWARE.
--- NOTE | 2020-05-14 07:00 | NUR ---
NURSE NOTES: LE: SEEN THE PATIENT BY DR. HUNTER.
--- NOTE | 2020-05-14 07:18 | NUR ---
NURSE HAND-OFF REPORT: Latest Vital Signs: Temperature 98.4 , Pulse 93 , B/P 115 /52 , Respiratory Rate 14 , O2 SAT 100 , Mechanical Ventilator, O2 Flow Rate 4.0 . Vital Sign Comment: EKG Rhythm: A-FIB Rhythm change?: N Notified?: Tracy Linn MD Response: No New Orders Received Latest Lechuga Fall Score: 50 Fall Risk: High Risk Safety Measures: Call light Within Reach, Bed Alarm Zone 1, Side Rails Side Rails x3, Bed position Low and Locked. Fall Precautions: Yellow Socks Door Sign Patient Fall Education Report given to DAMIAN MIGUEL.
--- NOTE | 2020-05-14 08:05 | Pulmonology Progress Note ---
Subjective ROS Limited/Unobtainable: Yes Constitutional: Denies: fever, chills Gastrointestinal/Abdominal: Denies: nausea, vomiting, diarrhea Musculoskeletal: Denies: pain Allergies: Coded Allergies: CIPROFLOXACIN (Verified Allergy, Unknown, 09/27/17) All Systems: reviewed and negative except above Subjective on vent comfortable sedated without distress update daughter ICU care reviewed Objective Last 24 Hour Vital Signs Date Time Temp Pulse Resp B/P (MAP) Pulse Ox O2 Delivery O2 Flow Rate FiO2 05/14/20 07:00 82 14 111/74 (86) 100 05/14/20 06:15 93 14 115/52 (73) 100 05/14/20 06:00 96 14 90/51 (64) 99 05/14/20 05:43 99 99/48 05/14/20 05:30 95 16 99/48 (65) 100 05/14/20 05:00 93 21 93/55 (68) 100 05/14/20 04:00 30 05/14/20 04:00 98.4 102 17 107/59 (75) 100 05/14/20 04:00 Mechanical Ventilator Mechanical Ventilator Mechanical Ventilator 05/14/20 03:30 114 14 30 05/14/20 03:01 100 05/14/20 03:00 97 15 125/86 (99) 100 05/14/20 02:00 90 14 94/56 (69) 100 05/14/20 01:00 99 15 97/46 (63) 100 05/14/20 00:30 96 16 104/65 (78) 100 05/14/20 00:15 96 14 94/53 (67) 100 05/14/20 00:00 Mechanical Ventilator Mechanical Ventilator Mechanical Ventilator 05/14/20 00:00 98.5 90 14 86/51 (63) 100 05/14/20 00:00 30 05/13/20 23:58 89 05/13/20 23:55 87 91/44 05/13/20 23:00 98 21 98/43 (61) 100 05/13/20 22:42 103 14 30 05/13/20 22:00 98 16 114/59 (77) 100 05/13/20 21:15 93 14 120/70 (87) 100 05/13/20 21:00 90 14 89/41 (57) 100 05/13/20 20:00 30 05/13/20 20:00 Mechanical Ventilator Mechanical Ventilator Mechanical Ventilator 05/13/20 20:00 98.4 96 14 103/51 (68) 100 05/13/20 19:32 84 05/13/20 19:29 98 14 30 05/13/20 19:00 91 14 95/58 (70) 100 05/13/20 18:00 96 14 91/51 (64) 100 05/13/20 17:27 99 116/48 05/13/20 17:00 91 14 101/50 (67) 100 05/13/20 16:56 92 14 99 Mechanical Ventilator 05/13/20 16:00 98.2 89 14 98/44 (62) 100 05/13/20 16:00 87 05/13/20 16:00 Mechanical Ventilator Mechanical Ventilator 05/13/20 16:00 30 05/13/20 15:25 92 14 30 05/13/20 15:00 91 14 92/49 (63) 100 05/13/20 14:00 83 15 95/45 (62) 100 05/13/20 13:00 86 14 101/52 (68) 99 05/13/20 12:18 95 104/52 05/13/20 12:00 30 05/13/20 12:00 80 05/13/20 12:00 Mechanical Ventilator Mechanical Ventilator 05/13/20 12:00 97.9 82 14 105/53 (70) 99 05/13/20 11:15 90 14 30 05/13/20 11:00 84 14 111/45 (67) 100 05/13/20 10:00 86 14 108/39 (62) 100 05/13/20 09:00 89 14 105/52 (69) 100 Intake and Output 05/13/20 05/14/20 19:00 07:00 Intake Total 455.0 ml 610.0 ml Output Total 650 ml 470 ml Balance -195.0 ml 140.0 ml Free Water 30 ml 30 ml IV Total 110.0 ml 110.0 ml Tube Feeding 315 ml 420 ml Other 50 ml Output Urine Total 650 ml 470 ml # Bowel Movements 3 3 Objective deferred due to COVID Microbiology Date/Time Source Procedure Growth Status 05/11/20 22:00 Urine,Clean Catch Urine Culture - Preliminary NO GROWTH AFTER 24 HOURS Resulted Laboratory Tests 05/13/20 18:00: Stool Occult Blood [Pending] 05/14/20 03:40: White Blood Count 14.1H, Red Blood Count 4.55, Hemoglobin 12.5, Hematocrit 38.4, Mean Corpuscular Volume 84, Mean Corpuscular Hemoglobin 27.5, Mean Corpuscular Hemoglobin Concent 32.7, Red Cell Distribution Width 18.4H, Platelet Count 244, Mean Platelet Volume 5.2L, Neutrophils (%) (Auto) , Lymphocytes (%) (Auto) , Monocytes (%) (Auto) , Eosinophils (%) (Auto) , Basophils (%) (Auto) , Neutrophi ls % (Manual) [Pending], Lymphocytes % (Manual) [Pending], Platelet Estimate [Pending], Platelet Morphology [Pending], Sodium Level 138, Potassium Level 2.9L , Chloride Level 101, Carbon Dioxide Level 22, Anion Gap 15, Blood Urea Nitrogen 88H, Creatinine 4.0H, Estimat Glomerular Filtration Rate 13.1, Glucose Level 206H, Calcium Level 8.2L, Total Bilirubin 1.1H, Direct Bilirubin 0.4H, Aspartate Amino Transf (AST/SGOT) 56H, Alanine Aminotransferase (ALT/SGPT) 91H, Alkaline Phosphatase 184H, Total Protein 5.8L, Albumin 1.9L, Globulin 3.9, Albumin/Globulin Ratio 0.5L Current Medications Medications (Trade) Dose Ordered Sig/Ghislaine Route PRN Reason Start Time Stop Time Status Last Admin Dose Admin Acetaminophen (Tylenol) 500 mg Q4H PRN ORAL Mild Pain (Pain Scale 1-3) 05/11/20 20:00 06/02/20 19:59 05/13/20 08:37 Albuterol Sulfate (Proventil MDI) 2 puff Q4H PRN INH Shortness of Breath 05/11/20 20:00 08/01/20 11:59 05/13/20 10:30 Apixaban (Eliquis) 2.5 mg BID ORAL 05/12/20 09:00 08/01/20 17:59 05/13/20 17:27 Aspirin (Ecotrin) 81 mg DAILY ORAL 05/12/20 09:00 06/17/20 15:59 05/13/20 08:35 Diltiazem HCl (Cardizem Tab) 30 mg EVERY 6 HOURS ORAL 05/12/20 09:15 06/11/20 09:14 05/14/20 05:43 Methylprednisolone Sodium Succinate (Solu-MEDROL) 60 mg DAILY IVP 05/12/20 09:00 08/06/20 08:59 05/13/20 08:35 Morphine Sulfate (Morphine Sulfate) 2 mg Q3H PRN IVP For Pain 05/11/20 22:30 05/18/20 22:29 Morphine Sulfate (Morphine Sulfate) 4 mg Q3H PRN IVP SEVERE PAIN 05/11/20 22:30 05/18/20 22:29 Pantoprazole (Protonix) 40 mg DAILY ORAL 05/12/20 09:00 06/02/20 15:59 05/13/20 08:37 Piperacillin Sod/ Tazobactam Sod 3.375 gm/Sodium Chloride 110 ml @ 27.5 mls/hr Q12HR IVPB 05/11/20 21:00 05/18/20 20:59 05/13/20 20:48 Salmeterol Xinafoate/ Fluticasone (Advair 100/50 Diskus) 1 puffs BIDRT INH 05/11/20 22:00 08/09/20 21:59 05/13/20 10:29 Assessment/Plan Assessment/Plan Impression: COVID-19 Chronic obstructive pulmonary disease/Asthma Community acquired pneumonia Atrial fibrillation with RVR Elevated troponin Congestive heart Failure sinus tachycardia Hypoxemia transaminitis consider cholecystitis acute on chronic renal failure acute respiratory failure Plan ID noted and discussed/ cultures reviwed Vent support/try to wean as able daily wean oxygen - currently stable feeds per dietary IV therapy noted Bronchodilator therapy Eliquis and monitor HH Monitor labs/ renal follow up Covid 19 Isolation- repeat swab+ nutrition and NG feeds reviewed care and optimize medications/laboratory data/nursing notes/ICU care reviewed in detail note reviewed and edited care discussed with RN and RT ICU time spent >40 minutes Aaron Jefferson MD May 14, 2020 08:05
[2020-05-14] MEDS: Eliquis 2.5mg tablet ORAL SCH ×2 (08:34→19:02)
[2020-05-14] MEDS: Solu-MEDROL 125mg Inj IVP SCH (08:34)
[2020-05-14] MEDS: Aspirin EC 81mg tab ORAL SCH (08:34)
[2020-05-14] MEDS: Piperacillin/Tazobactam 3.375 GM in NS 110 ML IVPB SCH ×2 (08:35→20:40)
--- NOTE | 2020-05-14 08:55 | NUR ---
NURSE NOTES: patient not able to tolerate weaning with settings of CPAP and PS of 10, Respiration rate noted to increase and having low tidal volumes ranging from 110-130 when taking breaths spontaneously. weaning trial stopped as patient was unable to tolerate, returned to setting of AC 14, TV: 500, Fio2 30% and peep of 5. 3 Dr. Jefferson updated of weaning attempt, will attempt another weaning trial in the afternoon per Dr. Jefferson.
--- NOTE | 2020-05-14 09:04 | Infectious Diseases Prog Note ---
Assessment/Plan Assessment/Plan A 1. COVID 19 pneumonia Test positive: 05/03 -05/09 2. renal failure 3. increased LFT 4. COPD 5. CHF, Diastolic & systolic 6. asthma 7. Cholelithiasis r/o cholecystitis 8. Hypoxic hypercapnic respiratory failure 9. Gram negative pneumonia P 1. continue solumedrol & Zosyn 2. will follow up cultures Subjective ROS Limited/Unobtainable: Yes Constitutional: Denies: fever Neurologic: Reports: confusion, other - on restraint Allergies: Coded Allergies: CIPROFLOXACIN (Verified Allergy, Unknown, 09/27/17) Objective Last 24 Hour Vital Signs Date Time Temp Pulse Resp B/P (MAP) Pulse Ox O2 Delivery O2 Flow Rate FiO2 05/14/20 07:00 82 14 111/74 (86) 100 05/14/20 06:15 93 14 115/52 (73) 100 05/14/20 06:00 96 14 90/51 (64) 99 05/14/20 05:43 99 99/48 05/14/20 05:30 95 16 99/48 (65) 100 05/14/20 05:00 93 21 93/55 (68) 100 05/14/20 04:00 30 05/14/20 04:00 98.4 102 17 107/59 (75) 100 05/14/20 04:00 Mechanical Ventilator Mechanical Ventilator Mechanical Ventilator 05/14/20 03:30 114 14 30 05/14/20 03:01 100 05/14/20 03:00 97 15 125/86 (99) 100 05/14/20 02:00 90 14 94/56 (69) 100 05/14/20 01:00 99 15 97/46 (63) 100 05/14/20 00:30 96 16 104/65 (78) 100 05/14/20 00:15 96 14 94/53 (67) 100 05/14/20 00:00 Mechanical Ventilator Mechanical Ventilator Mechanical Ventilator 05/14/20 00:00 98.5 90 14 86/51 (63) 100 05/14/20 00:00 30 05/13/20 23:58 89 05/13/20 23:55 87 91/44 05/13/20 23:00 98 21 98/43 (61) 100 05/13/20 22:42 103 14 30 05/13/20 22:00 98 16 114/59 (77) 100 05/13/20 21:15 93 14 120/70 (87) 100 05/13/20 21:00 90 14 89/41 (57) 100 05/13/20 20:00 30 05/13/20 20:00 Mechanical Ventilator Mechanical Ventilator Mechanical Ventilator 05/13/20 20:00 98.4 96 14 103/51 (68) 100 05/13/20 19:32 84 05/13/20 19:29 98 14 30 05/13/20 19:00 91 14 95/58 (70) 100 05/13/20 18:00 96 14 91/51 (64) 100 05/13/20 17:27 99 116/48 05/13/20 17:00 91 14 101/50 (67) 100 05/13/20 16:56 92 14 99 Mechanical Ventilator 05/13/20 16:00 98.2 89 14 98/44 (62) 100 05/13/20 16:00 87 05/13/20 16:00 Mechanical Ventilator Mechanical Ventilator 05/13/20 16:00 30 05/13/20 15:25 92 14 30 05/13/20 15:00 91 14 92/49 (63) 100 05/13/20 14:00 83 15 95/45 (62) 100 05/13/20 13:00 86 14 101/52 (68) 99 05/13/20 12:18 95 104/52 05/13/20 12:00 30 05/13/20 12:00 80 05/13/20 12:00 Mechanical Ventilator Mechanical Ventilator 05/13/20 12:00 97.9 82 14 105/53 (70) 99 05/13/20 11:15 90 14 30 05/13/20 11:00 84 14 111/45 (67) 100 05/13/20 10:00 86 14 108/39 (62) 100 Height (Feet): 5 Height (Inches): 3.00 Weight (Pounds): 160 HEENT: mucous membranes moist, other - orally intubated Respiratory/Chest: other - on ventilator Cardiovascular: normal rate Abdomen: soft, non tender Neurologic/Psychiatric: other - opens eyes Microbiology Date/Time Source Procedure Growth Status 05/12/20 22:50 Sputum Gram Stain Pending Resulted 05/12/20 22:50 Sputum Culture - Preliminary Gram Negative Bacillus 1 Resulted 05/11/20 22:00 Urine,Clean Catch Urine Culture - Preliminary NO GROWTH AFTER 24 HOURS Resulted Laboratory Tests Test 05/13/20 18:00 05/14/20 03:40 Stool Occult Blood Pending White Blood Count 14.1 K/UL (4.8-10.8) H Red Blood Count 4.55 M/UL (4.20-5.40) Hemoglobin 12.5 G/DL (12.0-16.0) Hematocrit 38.4 % (37.0-47.0) Mean Corpuscular Volume 84 FL (80-99) Mean Corpuscular Hemoglobin 27.5 PG (27.0-31.0) Mean Corpuscular Hemoglobin Concent 32.7 G/DL (32.0-36.0) Red Cell Distribution Width 18.4 % (11.6-14.8) H Platelet Count 244 K/UL (150-450) Mean Platelet Volume 5.2 FL (6.5-10.1) L Neutrophils (%) (Auto) % (45.0-75.0) Lymphocytes (%) (Auto) % (20.0-45.0) Monocytes (%) (Auto) % (1.0-10.0) Eosinophils (%) (Auto) % (0.0-3.0) Basophils (%) (Auto) % (0.0-2.0) Neutrophils % (Manual) Pending Lymphocytes % (Manual) Pending Platelet Estimate Pending Platelet Morphology Pending Sodium Level 138 MMOL/L (136-145) Potassium Level 2.9 MMOL/L (3.5-5.1) L Chloride Level 101 MMOL/L (98-107) Carbon Dioxide Level 22 MMOL/L (21-32) Anion Gap 15 mmol/L (5-15) Blood Urea Nitrogen 88 mg/dL (7-18) H Creatinine 4.0 MG/DL (0.55-1.30) H Estimat Glomerular Filtration Rate 13.1 mL/min (>60) Glucose Level 206 MG/DL (74-106) H Calcium Level 8.2 MG/DL (8.5-10.1) L Total Bilirubin 1.1 MG/DL (0.2-1.0) H Direct Bilirubin 0.4 MG/DL (0.0-0.3) H Aspartate Amino Transf (AST/SGOT) 56 U/L (15-37) H Alanine Aminotransferase (ALT/SGPT) 91 U/L (12-78) H Alkaline Phosphatase 184 U/L (46-116) H Total Protein 5.8 G/DL (6.4-8.2) L Albumin 1.9 G/DL (3.4-5.0) L Globulin 3.9 g/dL Albumin/Globulin Ratio 0.5 (1.0-2.7) L Current Medications Medications (Trade) Dose Ordered Sig/Ghislaine Route PRN Reason Start Time Stop Time Status Last Admin Dose Admin Acetaminophen (Tylenol) 500 mg Q4H PRN ORAL Mild Pain (Pain Scale 1-3) 05/11/20 20:00 06/02/20 19:59 05/13/20 08:37 Albuterol Sulfate (Proventil MDI) 2 puff Q4H PRN INH Shortness of Breath 05/11/20 20:00 08/01/20 11:59 05/13/20 10:30 Apixaban (Eliquis) 2.5 mg BID ORAL 05/12/20 09:00 08/01/20 17:59 05/14/20 08:34 Aspirin (Ecotrin) 81 mg DAILY ORAL 05/12/20 09:00 06/17/20 15:59 05/14/20 08:34 Diltiazem HCl (Cardizem Tab) 30 mg EVERY 6 HOURS ORAL 05/12/20 09:15 06/11/20 09:14 05/14/20 05:43 Methylprednisolone Sodium Succinate (Solu-MEDROL) 60 mg DAILY IVP 05/12/20 09:00 08/06/20 08:59 05/14/20 08:34 Morphine Sulfate (Morphine Sulfate) 2 mg Q3H PRN IVP For Pain 05/11/20 22:30 05/18/20 22:29 Morphine Sulfate (Morphine Sulfate) 4 mg Q3H PRN IVP SEVERE PAIN 05/11/20 22:30 05/18/20 22:29 Pantoprazole (Protonix) 40 mg DAILY ORAL 05/12/20 09:00 06/02/20 15:59 05/14/20 08:34 Piperacillin Sod/ Tazobactam Sod 3.375 gm/Sodium Chloride 110 ml @ 27.5 mls/hr Q12HR IVPB 05/11/20 21:00 05/18/20 20:59 05/14/20 08:35 Salmeterol Xinafoate/ Fluticasone (Advair 100/50 Diskus) 1 puffs BIDRT INH 05/11/20 22:00 08/09/20 21:59 05/13/20 10:29 Freddy Woodson MD May 14, 2020 09:04
--- NOTE | 2020-05-14 09:45 | NUR ---
NURSE NOTES: Dr. Woodson is at the bedside and updated patient is afebrile, WBC count dropped slightly to 14.1. zosyn is running through Left FA, iv is patent and intact. no orders given at this time.
[2020-05-14] MEDS: Wixela 100/50 Inhaler - 60 dose INH SCH ×2 (10:00→20:15)
--- NOTE | 2020-05-14 10:47 | Surgery Progress Note ---
Surgery Progress Note Subjective Additional Comments elevated lft plan repeat US Objective Last 24 Hour Vital Signs Date Time Temp Pulse Resp B/P (MAP) Pulse Ox O2 Delivery O2 Flow Rate FiO2 05/14/20 09:00 87 14 105/59 (74) 100 05/14/20 08:00 30 05/14/20 08:00 97.7 89 14 102/49 (66) 100 05/14/20 07:27 90 14 30 05/14/20 07:00 82 14 111/74 (86) 100 05/14/20 06:15 93 14 115/52 (73) 100 05/14/20 06:00 96 14 90/51 (64) 99 05/14/20 05:43 99 99/48 05/14/20 05:30 95 16 99/48 (65) 100 05/14/20 05:00 93 21 93/55 (68) 100 05/14/20 04:00 30 05/14/20 04:00 98.4 102 17 107/59 (75) 100 05/14/20 04:00 Mechanical Ventilator Mechanical Ventilator Mechanical Ventilator 05/14/20 03:30 114 14 30 05/14/20 03:01 100 05/14/20 03:00 97 15 125/86 (99) 100 05/14/20 02:00 90 14 94/56 (69) 100 05/14/20 01:00 99 15 97/46 (63) 100 05/14/20 00:30 96 16 104/65 (78) 100 05/14/20 00:15 96 14 94/53 (67) 100 05/14/20 00:00 Mechanical Ventilator Mechanical Ventilator Mechanical Ventilator 05/14/20 00:00 98.5 90 14 86/51 (63) 100 05/14/20 00:00 30 05/13/20 23:58 89 05/13/20 23:55 87 91/44 05/13/20 23:00 98 21 98/43 (61) 100 05/13/20 22:42 103 14 30 05/13/20 22:00 98 16 114/59 (77) 100 05/13/20 21:15 93 14 120/70 (87) 100 05/13/20 21:00 90 14 89/41 (57) 100 05/13/20 20:00 30 05/13/20 20:00 Mechanical Ventilator Mechanical Ventilator Mechanical Ventilator 05/13/20 20:00 98.4 96 14 103/51 (68) 100 05/13/20 19:32 84 05/13/20 19:29 98 14 30 05/13/20 19:00 91 14 95/58 (70) 100 05/13/20 18:00 96 14 91/51 (64) 100 05/13/20 17:27 99 116/48 05/13/20 17:00 91 14 101/50 (67) 100 05/13/20 16:56 92 14 99 Mechanical Ventilator 05/13/20 16:00 98.2 89 14 98/44 (62) 100 05/13/20 16:00 87 05/13/20 16:00 Mechanical Ventilator Mechanical Ventilator 05/13/20 16:00 30 05/13/20 15:25 92 14 30 05/13/20 15:00 91 14 92/49 (63) 100 05/13/20 14:00 83 15 95/45 (62) 100 05/13/20 13:00 86 14 101/52 (68) 99 05/13/20 12:18 95 104/52 05/13/20 12:00 30 05/13/20 12:00 80 05/13/20 12:00 Mechanical Ventilator Mechanical Ventilator 05/13/20 12:00 97.9 82 14 105/53 (70) 99 05/13/20 11:15 90 14 30 05/13/20 11:00 84 14 111/45 (67) 100 I&O Intake and Output 05/13/20 05/14/20 19:00 07:00 Intake Total 455.0 ml 610.0 ml Output Total 650 ml 470 ml Balance -195.0 ml 140.0 ml Free Water 30 ml 30 ml IV Total 110.0 ml 110.0 ml Tube Feeding 315 ml 420 ml Other 50 ml Output Urine Total 650 ml 470 ml # Bowel Movements 3 3 Cardiovascular: RSR Respiratory: decreased breath sounds Abdomen: soft, non-tender, present bowel sounds Extremities: no tenderness, no cyanosis Laboratory Tests Test 05/13/20 18:00 05/14/20 03:40 Stool Occult Blood Pending White Blood Count 14.1 K/UL (4.8-10.8) H Red Blood Count 4.55 M/UL (4.20-5.40) Hemoglobin 12.5 G/DL (12.0-16.0) Hematocrit 38.4 % (37.0-47.0) Mean Corpuscular Volume 84 FL (80-99) Mean Corpuscular Hemoglobin 27.5 PG (27.0-31.0) Mean Corpuscular Hemoglobin Concent 32.7 G/DL (32.0-36.0) Red Cell Distribution Width 18.4 % (11.6-14.8) H Platelet Count 244 K/UL (150-450) Mean Platelet Volume 5.2 FL (6.5-10.1) L Neutrophils (%) (Auto) % (45.0-75.0) Lymphocytes (%) (Auto) % (20.0-45.0) Monocytes (%) (Auto) % (1.0-10.0) Eosinophils (%) (Auto) % (0.0-3.0) Basophils (%) (Auto) % (0.0-2.0) Neutrophils % (Manual) Pending Lymphocytes % (Manual) Pending Platelet Estimate Pending Platelet Morphology Pending Sodium Level 138 MMOL/L (136-145) Potassium Level 2.9 MMOL/L (3.5-5.1) L Chloride Level 101 MMOL/L (98-107) Carbon Dioxide Level 22 MMOL/L (21-32) Anion Gap 15 mmol/L (5-15) Blood Urea Nitrogen 88 mg/dL (7-18) H Creatinine 4.0 MG/DL (0.55-1.30) H Estimat Glomerular Filtration Rate 13.1 mL/min (>60) Glucose Level 206 MG/DL (74-106) H Calcium Level 8.2 MG/DL (8.5-10.1) L Total Bilirubin 1.1 MG/DL (0.2-1.0) H Direct Bilirubin 0.4 MG/DL (0.0-0.3) H Aspartate Amino Transf (AST/SGOT) 56 U/L (15-37) H Alanine Aminotransferase (ALT/SGPT) 91 U/L (12-78) H Alkaline Phosphatase 184 U/L (46-116) H Total Protein 5.8 G/DL (6.4-8.2) L Albumin 1.9 G/DL (3.4-5.0) L Globulin 3.9 g/dL Albumin/Globulin Ratio 0.5 (1.0-2.7) L Plan Problems: (1) Elevated troponin (2) Atrial fibrillation with RVR (3) COVID-19 Assessment & Plan: ++ as per pulm and ID DAILY ESTIMATED NEEDS: Needs based on Critical Care, ARF/ 56kg abw 22-28 kcals/kg 4752-9114 total kcals 0.8-1.5 (increase w/ renal improvement) g protein/kg 45-84 g total protein 25-30 mL/kg 9457-7286 total fluid mLs NUTRITION DIAGNOSIS: * Altered nutrition related lab values r/t clinical status as evidenced by elev BUN(82), creat(3.8) trending up, critical ABG (low pH, elev CO2)-> now improved. * Swallowing difficulty R/T respiratory status as evidenced by s/p oral intubation, on OGT feeds. 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: [employer] eval post extubation ENTERAL NUTRITION RECOMMENDATIONS: Nepro @ 35ml/hr x 24 hrs to provide 840ml, 1512kcal, 68g prot, 610ml free water * W/ worsening renal fxn, rec to continue Nepro * As tolerated, increase goal rate to 35ml/hr x 24 hrs to meet 100% est kcal/prot needs ADDITIONAL RECOMMENDATIONS: 1) Calibrated bedscale wt 2) Monitor renal fxn and lytes, need to continue Nepro Creat trending up 3) Rec niss w/ solumedrol (4) Community acquired pneumonia (5) COPD (chronic obstructive pulmonary disease) (6) Pulmonary fibrosis (7) Asthma (8) History of asthma (9) NSTEMI (non-ST elevated myocardial infarction) (10) Moderate to severe pulmonary hypertension (11) Asthma exacerbation (12) Abnormal LFTs Assessment & Plan: afebrile, HD stable labs noted lft's elevated US reviewed exam benign gb likely reactive from underlying pathology unlikely cholecystitis clinically fluid overload trend labs will monitor exam clinically covid + prognosis guarded cxr reviewed on abx worsening plan repeat US Gallbladder demonstrates wall thickening and wall edema, gallbladder wall measuring up to 6 mm thick. There are gallstones. Sonographic Escoto's sign is negative. Common bile duct measures 3 mm in diameter. No intrahepatic biliary ductal dilatation. Liver demonstrates normal echogenicity, no focal abnormality. Portal vein and hepatic veins are patent. Pancreas is unremarkable. Spleen is unremarkable. Left kidney measures 9.2 cm in length. Right kidney measures 9.9 cm length. Both kidneys demonstrate normal echogenicity. There is no hydronephrosis. Small cyst is seen in the right kidney. . Abdominal aorta was not imaged . There is trace ascites. There is a small right pleural effusion incidentally noted Impression: Small right pleural effusion. Trace ascites Cholelithiasis. Gallbladder wall thickening may be related to hemodynamic factors causing the pleural fluid and ascites, but could also indicate acute cholecystitis. Consider nuclear medicine hepatobiliary scan if there is high clinical suspicion. Negative for dilated bile ducts Small right renal cyst incidentally noted (13) Acute respiratory failure with hypoxia Quentin Sanchez May 14, 2020 10:47
--- NOTE | 2020-05-14 11:45 | NUR ---
NURSE NOTES: RT weaned patient on CPAP PS of 10, Tidal volumes are approximately 100ml per breath with Respiration rate of approximately 30-40. patient is noted to be having distress, RT returned patient back to AC 14, TV: 500, FIO2 30% and peep of 5.
--- NOTE | 2020-05-14 12:30 | NUR ---
NURSE NOTES: Dr. Rivera updated that patient is tolerating tube feeding at 35ml/hr on nepro, adequate urine output is present with straw color no verbal orders given at this time.
--- NOTE | 2020-05-14 13:45 | NUR ---
NURSE NOTES: US abdomen completed at the bedside with no distress or discomfort experience by the patient. patient made aware a body technician/painter will be conducting a imaging study ordered by Dr. guzman, patient was calm and relaxed during the procedure, patient repositioned and oral care provided.
[2020-05-14] MEDS ORDERED: NS 275ml ONE (14:00)
--- NOTE | 2020-05-14 14:34 | Diagnostic Imaging Report ---
Indication: Abdominal pain and abnormal liver function tests. Technique: Focused ultrasound evaluation of the right upper quadrant Comparison: 05/05/2020 Findings: There is a long hyperechogenicity along the falciform ligament which may represent focal fatty infiltration. Liver is normal in size. Mild perihepatic ascites is noted. Main portal vein is patent with normal direction of flow. Common bile duct is normal in caliber measuring 4.7 mm diameter. There is cholelithiasis. There is gallbladder wall thickening. Sonographic Escoto's sign however was not reported. Small right pleural effusion is demonstrated. Partially imaged right kidney grossly unremarkable. IMPRESSION: Cholelithiasis with nonspecific gallbladder wall thickening. Sonographic Escoto sign and however was not reported. If there is concern for acute cholecystitis recommend further evaluation with HIDA scan. No biliary ductal dilatation. Trace ascites and small right pleural effusion incidentally identified. Echogenic focus versus visualized along the falciform ligament may represent focal fatty infiltration versus small hemangioma.
--- NOTE | 2020-05-14 15:30 | NUR ---
NURSE NOTES: Dr. Morel updated of patient progress and urine output, updated Dr. pate placed order of 40meq, po, once, by OG-tube for potassium of 2.9. no verbal orders given at this time.
--- NOTE | 2020-05-14 15:40 | NUR ---
NURSE NOTES: Dr. Perez at the bedside and reviewed patient chart, no verbal orders given at time.
--- NOTE | 2020-05-14 19:37 | NUR ---
NURSE NOTES: Received report from DAMIAN Nichols. COVID positive 05/03 2E 05/11 4E to STD to ICU intubated. Pt asleep and open eyes to name. ETT 7.5/20cm: Vent AC 14, TV 500, FiO2 30% Peep 5 Weaning failed twice per AMRN Restrain noted bilaterally wrist (Started 05/14 2qm) Skin: inner thigh skin tear. A-fib on the school lunch monitor and hypotensive OGT: Nepro at 35mL/hr No residual noted IV Left FA 20G TKO Safety measures observed and no acute distress noted. Will continue to monitor. NURSE NOTES: LE: PATIENT ASLEEP STATUS, OPEN EYES TO NAME, DENIED PAIN OR SOB, ON ETT TO VENT AC14/TV500/FIO2 30%/PEEP5, O2 SATURATION 100% NOTED, HR 90'S/MIN A-FIB NOTED, OGT INTACT AND PATENT, NEPRO AT 35ML/HR , NO RESIDUE NOTED, KEPT HOB 30 DEGREES AND ASPIRATION PRECAUTION, ABDOMEN SOFT, NON TENDER, NO BM STATUS, F/C INTACT AND PATENT, JAMEEL COLOR URINE WITH SEDIMENTS OUTED, PPL TO LEFT AC 20G, LEAKED, REMOVED LINE AND INSERTED LEFT FA 20G AT THIS TIME, 2 POINT SOFT RESTRAINTS, MADE LOWER BED POSITION, ON BED ALARM AND LOCKED, PLACED CALL LIGHT WITHIN REACH, WILL CONTINUE TO MONITOR.
--- NOTE | 2020-05-14 19:45 | NUR ---
NURSE NOTES: NURSE HAND-OFF REPORT: Latest Vital Signs: Temperature 97.6 , Pulse 86 , B/P 98 /60 , Respiratory Rate 15 , O2 SAT 100 , Mechanical Ventilator, O2 Flow Rate 4.0 . Vital Sign Comment: EKG Rhythm: Atrial Fibrillation Rhythm change?: N MD Notified?: Tracy Linn MD Response: No New Orders Received Latest Lechuga Fall Score: 50 Fall Risk: High Risk Safety Measures: Call light Within Reach, Bed Alarm Zone 1, Side Rails Side Rails x3, Bed position Low and Locked. Fall Precautions: Yellow Socks Door Sign Patient Fall Education Report given to DAMIAN Bowman. .
--- NOTE | 2020-05-14 20:12 | NUR ---
NURSE NOTES: HIDA scan odered but cancelled due to Covid 19 positive status.
--- NOTE | 2020-05-14 22:00 | NUR ---
NURSE NOTES: PM meds provided. Repositioned and oral care provided Moderate watery stool noted. Rectal tube inserted. Afebrile and VSS. Safety measures obseved and no acute distress noted. Will continue to monitor.
[2020-05-15] VITALS (24 sets, daily range): BP systolic 81–109; BP diastolic 46–69
--- NOTE | 2020-05-15 | NUR ---
NURSE NOTES: No change. Afebrile and VSS. Safety measures obseved and no acute distress noted. Will continue to monitor.
--- NOTE | 2020-05-15 01:09 | Cardiology Progress Note ---
Subjective DATE OF SERVICE: May 14, 2020 Condition remains critical; [facility]. Monitor: AFib with episodes of RVR and nonsustained VTach. Lactic acidosis resolved BP has dropped as well with deterioration of acid-base status. Episodes of tachyarrhythmias noted. Objective Last 24 Hour Vital Signs Date Time Temp Pulse Resp B/P (MAP) Pulse Ox O2 Delivery O2 Flow Rate FiO2 05/15/20 00:30 91 14 109/59 (76) 100 05/15/20 00:00 Mechanical Ventilator Mechanical Ventilator 05/15/20 00:00 90 14 96/53 (67) 100 05/14/20 23:45 100 14 30 05/14/20 23:00 95/52 05/14/20 23:00 91 14 95/52 (66) 100 05/14/20 22:00 86 14 81/44 (56) 100 05/14/20 21:00 89 14 90/53 (65) 100 05/14/20 20:00 Mechanical Ventilator Mechanical Ventilator 05/14/20 20:00 89 15 104/50 (68) 100 05/14/20 20:00 30 05/14/20 20:00 89 05/14/20 19:26 89 14 30 05/14/20 19:00 86 15 98/60 (73) 100 05/14/20 19:00 30 05/14/20 18:00 86 98/54 05/14/20 18:00 89 14 97/52 (67) 100 05/14/20 17:00 83 16 96/56 (69) 100 05/14/20 16:01 97.6 86 14 103/56 (72) 100 05/14/20 16:00 86 14 103/56 (72) 100 05/14/20 16:00 87 05/14/20 16:00 Mechanical Ventilator Mechanical Ventilator 05/14/20 15:35 88 14 30 05/14/20 15:00 84 13 100/50 (67) 100 05/14/20 14:00 86 14 92/55 (67) 100 05/14/20 13:00 83 14 107/44 (65) 100 05/14/20 12:01 97.8 90 14 111/44 (66) 100 05/14/20 12:00 Mechanical Ventilator Mechanical Ventilator 05/14/20 12:00 30 05/14/20 12:00 90 14 111/44 (66) 100 05/14/20 12:00 90 05/14/20 12:00 77 91/45 05/14/20 11:24 83 14 30 05/14/20 11:00 91 18 113/41 (65) 100 05/14/20 10:00 88 14 111/52 (71) 100 05/14/20 09:00 87 14 105/59 (74) 100 05/14/20 08:00 30 05/14/20 08:00 Mechanical Ventilator Mechanical Ventilator 05/14/20 08:00 94 05/14/20 08:00 97.7 89 14 102/49 (66) 100 05/14/20 07:27 90 14 30 05/14/20 07:00 82 14 111/74 (86) 100 05/14/20 06:15 93 14 115/52 (73) 100 05/14/20 06:00 96 14 90/51 (64) 99 05/14/20 05:43 99 99/48 05/14/20 05:30 95 16 99/48 (65) 100 05/14/20 05:00 93 21 93/55 (68) 100 05/14/20 04:00 30 05/14/20 04:00 98.4 102 17 107/59 (75) 100 05/14/20 04:00 Mechanical Ventilator Mechanical Ventilator Mechanical Ventilator 05/14/20 03:30 114 14 30 05/14/20 03:01 100 05/14/20 03:00 97 15 125/86 (99) 100 05/14/20 02:00 90 14 94/56 (69) 100 ROS: unchanged from my eval of 05/03/20 HEENT: Orally intubated, Mechanically Ventilated, Thin secretions ET Tube LUNGS: no accessory muscle use, expiratory wheezing, diminished breath sounds CARDIAC: normal S1 and S2, no murmur, irregularly irregular ABDOMEN: normal bowel sounds, non tender, soft, no organomegaly EXTREMITIES: no calf tenderness, +1 edema Laboratory Tests Test 05/14/20 03:40 White Blood Count 14.1 K/UL (4.8-10.8) H Red Blood Count 4.55 M/UL (4.20-5.40) Hemoglobin 12.5 G/DL (12.0-16.0) Hematocrit 38.4 % (37.0-47.0) Mean Corpuscular Volume 84 FL (80-99) Mean Corpuscular Hemoglobin 27.5 PG (27.0-31.0) Mean Corpuscular Hemoglobin Concent 32.7 G/DL (32.0-36.0) Red Cell Distribution Width 18.4 % (11.6-14.8) H Platelet Count 244 K/UL (150-450) Mean Platelet Volume 5.2 FL (6.5-10.1) L Neutrophils (%) (Auto) % (45.0-75.0) Lymphocytes (%) (Auto) % (20.0-45.0) Monocytes (%) (Auto) % (1.0-10.0) Eosinophils (%) (Auto) % (0.0-3.0) Basophils (%) (Auto) % (0.0-2.0) Differential Total Cells Counted 100 Neutrophils % (Manual) 95 % (45-75) H Lymphocytes % (Manual) 3 % (20-45) L Monocytes % (Manual) 2 % (1-10) Eosinophils % (Manual) 0 % (0-3) Basophils % (Manual) 0 % (0-2) Band Neutrophils 0 % (0-8) Platelet Estimate Adequate Platelet Morphology Normal Anisocytosis 2+ Sodium Level 138 MMOL/L (136-145) Potassium Level 2.9 MMOL/L (3.5-5.1) L Chloride Level 101 MMOL/L (98-107) Carbon Dioxide Level 22 MMOL/L (21-32) Anion Gap 15 mmol/L (5-15) Blood Urea Nitrogen 88 mg/dL (7-18) H Creatinine 4.0 MG/DL (0.55-1.30) H Estimat Glomerular Filtration Rate 13.1 mL/min (>60) Glucose Level 206 MG/DL (74-106) H Calcium Level 8.2 MG/DL (8.5-10.1) L Total Bilirubin 1.1 MG/DL (0.2-1.0) H Direct Bilirubin 0.4 MG/DL (0.0-0.3) H Aspartate Amino Transf (AST/SGOT) 56 U/L (15-37) H Alanine Aminotransferase (ALT/SGPT) 91 U/L (12-78) H Alkaline Phosphatase 184 U/L (46-116) H Total Protein 5.8 G/DL (6.4-8.2) L Albumin 1.9 G/DL (3.4-5.0) L Globulin 3.9 g/dL Albumin/Globulin Ratio 0.5 (1.0-2.7) L Microbiology Date/Time Source Procedure Growth Status 05/12/20 22:50 Sputum Gram Stain Pending Resulted 05/12/20 22:50 Sputum Culture - Preliminary Gram Negative Bacillus 1 Resulted Assessment/Plan Assessment/Plan Acute on chronic respiratory acidosis Acute respiratory failure Shock LE edema due to severe pulmonary hypertension and right heart strain COPD exacerb with active bronchospasm Lactic acidosis COVID 19 PNA Acute on chr renal failure - now with hyperkalemia Chronic systolic/diastolic CHF Pulmonary fibrosis with chronic hypoxia Paroxysmal AFib with RVR Hx Multifocal atrial arrhythmias Pulmonary HTN - severe Hx NSVTach Acute myocardial ischemia Vent support Hold diltiazem for low BP Steroids per pulmonary Inhaled bronchodilators IVF adjusted Reassess for diuresis; not presently indicated Full anticoagulation for cardioembolic prophyl Isolation Anti-viral rx per Simone Shirley MD May 15, 2020 01:09
--- NOTE | 2020-05-15 02:00 | NUR ---
NURSE NOTES: No change. Afebrile and VSS. Safety measures obseved and no acute distress noted. Will continue to monitor.
--- NOTE | 2020-05-15 04:20 | NUR ---
NURSE NOTES: AM care completed. Changed soiled gown, linen, and sliders. Repositioned and oral care provided. Pt's family member, Heike who lives in [facility] called. Heike stated she id about leaving her house to drive down to [place] to see patient. Will continue to monitor
[2020-05-15 04:53] LABS: HEMATOCRIT 36.7 % (37.0-47.0); HEMOGLOBIN 12.1 G/DL (12.0-16.0); MEAN CORPUSCULAR VOLUME 83 FL (80-99); PLATELET COUNT 234 K/UL (150-450); RED BLOOD COUNT 4.43 M/UL (4.20-5.40); WHITE BLOOD COUNT 13.6 K/UL (4.8-10.8)
[2020-05-15 04:59] LABS: INR 1.2 (0.9-1.1)
[2020-05-15] MEDS: dilTIAZem HCl 30mg tab ORAL SCH ×3 (05:03→18:00)
[2020-05-15 05:12] LABS: ALBUMIN 1.7 G/DL (3.4-5.0); ALBUMIN/GLOBULIN RATIO 0.5 (1.0-2.7); CALCIUM 8.1 MG/DL (8.5-10.1); CREATININE 3.7 MG/DL (0.55-1.30); POTASSIUM 3.2 MMOL/L (3.5-5.1)
--- NOTE | 2020-05-15 06:30 | NUR ---
NURSE NOTES: Dr. Linn at the bedside to assess patient. Notified urine output is 480mL so far.
--- NOTE | 2020-05-15 07:08 | NUR ---
HAND-OFF: Report given to DAMIAN Nichols. Endorsed POC.
--- NOTE | 2020-05-15 07:14 | NUR ---
RD ASSESSMENT & RECOMMENDATIONS SEE CARE ACTIVITY FOR COMPLETE ASSESSMENT DAILY ESTIMATED NEEDS: Needs based on Critical Care, ARF/ 56kg abw 22-28 kcals/kg 4356-3673 total kcals 0.8-1.5 (increase w/ renal improvement) g protein/kg 45-84 g total protein 25-30 mL/kg 8351-5441 total fluid mLs NUTRITION DIAGNOSIS: * Altered nutrition related lab values r/t clinical status as evidenced by elev BUN(88), creat(2.0->4.0->3.7), low K (3.2), critical ABG (low pH, elev CO2)-> now improved. * Swallowing difficulty R/T respiratory status as evidenced by s/p oral intubation, on OGT feeds. CURRENT TF:Nepro @ 35ml/hr x 24 hrs PO DIET RECOMMENDATIONS: CURB SUPERVISOR eval post extubation ENTERAL NUTRITION RECOMMENDATIONS: Nepro @ 35ml/hr x 24 hrs to provide 840ml, 1512kcal, 68g prot, 610ml free water * Continue current TF at this time: meets 100% est kcal/prot needs, creat 3.7 * HOB over 30 degrees/ water flush per MD With improving renal fxn and/or continued low lytes (K 3.2), rec TF change to Glucerna 1.5 @ 40ml/hr x 24 hrs to provide 960ml, 1440kcal, 72g prot ADDITIONAL RECOMMENDATIONS: 1) Calibrated bedscale wt 2) Monitor renal fxn and lytes, need to continue Nepro -> Creat 2.0-> 4.0-> 3.7 -> Rec TF change w/ consistently low lytes (K 3.2, 2.9) -> Check phos level 3) Rec niss w/ solumedrol (elev BGs 156, 206)
--- NOTE | 2020-05-15 07:35 | NUR ---
NURSE NOTES: Spoke with Heike about patient condition, she is awake and alert to name, she is able to answer yes and no question with head nodding denies any pain when asked, her pain level is 0 using the FLACC scale, she remains on mechanical ventilator with setting of AC 14, Tv: of 500, FIo2 30% with peep of 5, this secretions noted when suctioning, patient to be weaned this morning. tube feeding remains running at 35ml/hr through OG-tube, she is noted to be on bilateral wrist restraints, she reaches towards ET-tube and OG-tube when assessing the skin, pulses can be felt distally with hands warm and pink. patient has a rectal tube with liquid stool present.
--- NOTE | 2020-05-15 08:14 | Pulmonology Progress Note ---
Subjective ROS Limited/Unobtainable: Yes Constitutional: Denies: fever Gastrointestinal/Abdominal: Denies: nausea, vomiting, diarrhea Musculoskeletal: Denies: pain Allergies: Coded Allergies: CIPROFLOXACIN (Verified Allergy, Unknown, 09/27/17) All Systems: reviewed and negative except above Subjective on vent- not able to wean US noted comfortable sedated without distress update daughter ICU care reviewed Objective Last 24 Hour Vital Signs Date Time Temp Pulse Resp B/P (MAP) Pulse Ox O2 Delivery O2 Flow Rate FiO2 05/15/20 06:00 98.0 92 16 99/69 (79) 100 05/15/20 05:03 100/55 05/15/20 05:00 89 14 100/55 (70) 100 05/15/20 04:00 Mechanical Ventilator Mechanical Ventilator 05/15/20 04:00 30 05/15/20 04:00 87 05/15/20 04:00 87 14 102/51 (68) 100 05/15/20 03:16 91 14 30 05/15/20 03:00 95 16 99/53 (68) 100 05/15/20 02:00 91 17 104/58 (73) 100 05/15/20 01:00 89 14 87/57 (67) 100 05/15/20 00:00 Mechanical Ventilator Mechanical Ventilator 05/15/20 00:00 90 14 96/53 (67) 100 05/14/20 23:45 100 14 30 05/14/20 23:00 95/52 05/14/20 23:00 91 14 95/52 (66) 100 05/14/20 22:00 86 14 81/44 (56) 100 05/14/20 21:00 89 14 90/53 (65) 100 05/14/20 20:00 Mechanical Ventilator Mechanical Ventilator 05/14/20 20:00 89 15 104/50 (68) 100 05/14/20 20:00 30 05/14/20 20:00 89 05/14/20 19:26 89 14 30 05/14/20 19:00 86 15 98/60 (73) 100 05/14/20 19:00 30 05/14/20 18:00 86 98/54 05/14/20 18:00 89 14 97/52 (67) 100 05/14/20 17:00 83 16 96/56 (69) 100 05/14/20 16:01 97.6 86 14 103/56 (72) 100 05/14/20 16:00 86 14 103/56 (72) 100 05/14/20 16:00 87 05/14/20 16:00 Mechanical Ventilator Mechanical Ventilator 05/14/20 15:35 88 14 30 05/14/20 15:00 84 13 100/50 (67) 100 05/14/20 14:00 86 14 92/55 (67) 100 05/14/20 13:00 83 14 107/44 (65) 100 05/14/20 12:01 97.8 90 14 111/44 (66) 100 05/14/20 12:00 Mechanical Ventilator Mechanical Ventilator 05/14/20 12:00 30 05/14/20 12:00 90 14 111/44 (66) 100 05/14/20 12:00 90 05/14/20 12:00 77 91/45 05/14/20 11:24 83 14 30 05/14/20 11:00 91 18 113/41 (65) 100 05/14/20 10:00 88 14 111/52 (71) 100 05/14/20 09:00 87 14 105/59 (74) 100 Intake and Output 05/14/20 05/15/20 19:00 07:00 Intake Total 640.0 ml 385 ml Output Total 560 ml 480 ml Balance 80.0 ml -95 ml Free Water 90 ml IV Total 110.0 ml Tube Feeding 420 ml 385 ml Other 20 ml Output Urine Total 560 ml 480 ml # Bowel Movements 4 1 Objective deferred due to COVID Microbiology Date/Time Source Procedure Growth Status 05/12/20 22:50 Sputum Gram Stain Pending Resulted 05/12/20 22:50 Sputum Culture - Preliminary Gram Negative Bacillus 1 Resulted Laboratory Tests 05/15/20 04:05: White Blood Count 13.6H, Red Blood Count 4.43, Hemoglobin 12.1, Hematocrit 36.7L , Mean Corpuscular Volume 83, Mean Corpuscular Hemoglobin 27.3, Mean Corpuscular Hemoglobin Concent 33.0, Red Cell Distribution Width 18.0H, Platelet Count 234, Mean Platelet Volume 5.4L, Neutrophils (%) (Auto) , Lymphocytes (%) (Auto) , Monocytes (%) (Auto) , Eosinophils (%) (Auto) , Basophils (%) (Auto) , Erythrocyte Sedimentation Rate 52H, Prothrombin Time 13.2H, Prothromb Time International Ratio 1.2H, Activated Partial Thromboplast Time 26, Sodium Level 141, Potassium Level 3.2L, Chloride Level 104, Carbon Dioxide Level 24, Anion Gap 13, Blood Urea Nitrogen 88H, Creatinine 3.7H, Estimat Glomerular Filtration Rate 14.3, Glucose Level 156H, Calcium Level 8.1L, Total Bilirubin 1.0, Aspartate Amino Transf (AST/SGOT) 47H, Alanine Aminotransferase (ALT/SGPT) 99H, Alkaline Phosphatase 153H, C-Reactive Protein, Quantitative 4.4H, Total Protein 5.2L, Albumin 1.7L, Globulin 3.5, Albumin/Globulin Ratio 0.5L, Amylase Level 80, Lipase 81 Current Medications Medications (Trade) Dose Ordered Sig/Ghislaine Route PRN Reason Start Time Stop Time Status Last Admin Dose Admin Acetaminophen (Tylenol) 500 mg Q4H PRN ORAL Mild Pain (Pain Scale 1-3) 05/11/20 20:00 06/02/20 19:59 05/13/20 08:37 Albuterol Sulfate (Proventil MDI) 2 puff Q4H PRN INH Shortness of Breath 05/11/20 20:00 08/01/20 11:59 05/13/20 10:30 Apixaban (Eliquis) 2.5 mg BID ORAL 05/12/20 09:00 08/01/20 17:59 05/14/20 19:02 Aspirin (Ecotrin) 81 mg DAILY ORAL 05/12/20 09:00 06/17/20 15:59 05/14/20 08:34 Diltiazem HCl (Cardizem Tab) 30 mg EVERY 6 HOURS ORAL 05/12/20 09:15 06/11/20 09:14 05/14/20 05:43 Methylprednisolone Sodium Succinate (Solu-MEDROL) 60 mg DAILY IVP 05/12/20 09:00 08/06/20 08:59 05/14/20 08:34 Morphine Sulfate (Morphine Sulfate) 2 mg Q3H PRN IVP For Pain 05/11/20 22:30 05/18/20 22:29 Morphine Sulfate (Morphine Sulfate) 4 mg Q3H PRN IVP SEVERE PAIN 05/11/20 22:30 05/18/20 22:29 Pantoprazole (Protonix) 40 mg DAILY ORAL 05/12/20 09:00 06/02/20 15:59 05/14/20 08:34 Piperacillin Sod/ Tazobactam Sod 3.375 gm/Sodium Chloride 110 ml @ 27.5 mls/hr Q12HR IVPB 05/11/20 21:00 05/18/20 20:59 05/14/20 20:40 Salmeterol Xinafoate/ Fluticasone (Advair 100/50 Diskus) 1 puffs BIDRT INH 05/11/20 22:00 08/09/20 21:59 05/13/20 10:29 Assessment/Plan Assessment/Plan Impression: COVID-19 Chronic obstructive pulmonary disease/Asthma Community acquired pneumonia Atrial fibrillation with RVR Elevated troponin Congestive heart Failure sinus tachycardia Hypoxemia transaminitis with gallstones consider cholecystitis acute on chronic renal failure acute respiratory failure Plan ID noted and discussed/ cultures reviewed Vent support/try to wean as able daily wean oxygen - currently stable feeds per dietary IV therapy noted Bronchodilator therapy Eliquis and monitor HH Monitor labs/ renal follow up Covid 19 Isolation- repeat swab+ nutrition and NG feeds reviewed care and optimize position change surgical follow up noted monitor protein levels medications/laboratory data/nursing notes/ICU care reviewed in detail note reviewed and edited care discussed with RN and RT ICU time spent >40 minutes Aaron Jefferson MD May 15, 2020 08:14
--- NOTE | 2020-05-15 09:30 | NUR ---
NURSE NOTES: Morning AM medication given through OG-tube, OG-tube flushes well with no restrictions. Zosyn started through left Forearm IV. there is no swelling or leaking when flushed with normal saline.
[2020-05-15] MEDS: Aspirin EC 81mg tab ORAL SCH (09:41)
[2020-05-15] MEDS: Solu-MEDROL 125mg Inj IVP SCH (09:41)
[2020-05-15] MEDS: Piperacillin/Tazobactam 3.375 GM in NS 110 ML IVPB SCH (09:41)
[2020-05-15] MEDS: Eliquis 2.5mg tablet ORAL SCH ×2 (09:42→18:34)
[2020-05-15] MEDS: Wixela 100/50 Inhaler - 60 dose INH SCH ×2 (10:00→21:36)
--- NOTE | 2020-05-15 10:35 | NUR ---
NURSE NOTES: Dr. Cameron updated on patient WBC of 13.6, she remains on Zosyn, no verbal orders given at this time, will review chart and place orders accordingly.
--- NOTE | 2020-05-15 11:23 | Infectious Diseases Prog Note ---
Assessment/Plan Assessment/Plan antibiotics : none A 1. COVID 19 pneumonia on 30 liters O2, saturation 100 percent s/p ivermectin 9.7.20 2. renal failure 3. increased LFT 4. COPD 5. CHF 6. asthma 7. respiratory failure 8. leucocytosis likely secondary to steroids 9. pseudomonas pneumonia P 1. continue solumedrol 2. d/c iv zosyn 3. start meropenem 4. will follow up cultures Subjective ROS Limited/Unobtainable: Yes Allergies: Coded Allergies: CIPROFLOXACIN (Verified Allergy, Unknown, 09/27/17) Objective Last 24 Hour Vital Signs Date Time Temp Pulse Resp B/P (MAP) Pulse Ox O2 Delivery O2 Flow Rate FiO2 05/15/20 06:00 98.0 92 16 99/69 (79) 100 05/15/20 05:03 100/55 05/15/20 05:00 89 14 100/55 (70) 100 05/15/20 04:00 Mechanical Ventilator Mechanical Ventilator 05/15/20 04:00 30 05/15/20 04:00 87 05/15/20 04:00 87 14 102/51 (68) 100 05/15/20 03:16 91 14 30 05/15/20 03:00 95 16 99/53 (68) 100 05/15/20 02:00 91 17 104/58 (73) 100 05/15/20 01:00 89 14 87/57 (67) 100 05/15/20 00:00 Mechanical Ventilator Mechanical Ventilator 05/15/20 00:00 90 14 96/53 (67) 100 05/14/20 23:45 100 14 30 05/14/20 23:00 95/52 05/14/20 23:00 91 14 95/52 (66) 100 05/14/20 22:00 86 14 81/44 (56) 100 05/14/20 21:00 89 14 90/53 (65) 100 05/14/20 20:00 Mechanical Ventilator Mechanical Ventilator 05/14/20 20:00 89 15 104/50 (68) 100 05/14/20 20:00 30 05/14/20 20:00 89 05/14/20 19:26 89 14 30 05/14/20 19:00 86 15 98/60 (73) 100 05/14/20 19:00 30 9/17/20 18:00 86 98/54 05/14/20 18:00 89 14 97/52 (67) 100 05/14/20 17:00 83 16 96/56 (69) 100 05/14/20 16:01 97.6 86 14 103/56 (72) 100 05/14/20 16:00 86 14 103/56 (72) 100 05/14/20 16:00 87 05/14/20 16:00 Mechanical Ventilator Mechanical Ventilator 05/14/20 15:35 88 14 30 05/14/20 15:00 84 13 100/50 (67) 100 05/14/20 14:00 86 14 92/55 (67) 100 05/14/20 13:00 83 14 107/44 (65) 100 05/14/20 12:01 97.8 90 14 111/44 (66) 100 05/14/20 12:00 Mechanical Ventilator Mechanical Ventilator 05/14/20 12:00 30 05/14/20 12:00 90 14 111/44 (66) 100 05/14/20 12:00 90 05/14/20 12:00 77 91/45 05/14/20 11:24 83 14 30 Height (Feet): 5 Height (Inches): 3.00 Weight (Pounds): 160 HEENT: other - intubated Respiratory/Chest: lungs clear Cardiovascular: normal rate, regular rhythm, no gallop/murmur Abdomen: soft, non tender Extremities: no edema Microbiology Date/Time Source Procedure Growth Status 05/12/20 22:50 Sputum Gram Stain - Final Complete 05/12/20 22:50 Sputum Culture - Final Pseudomonas Aeruginosa Complete Laboratory Tests Test 05/15/20 04:05 White Blood Count 13.6 K/UL (4.8-10.8) H Red Blood Count 4.43 M/UL (4.20-5.40) Hemoglobin 12.1 G/DL (12.0-16.0) Hematocrit 36.7 % (37.0-47.0) L Mean Corpuscular Volume 83 FL (80-99) Mean Corpuscular Hemoglobin 27.3 PG (27.0-31.0) Mean Corpuscular Hemoglobin Concent 33.0 G/DL (32.0-36.0) Red Cell Distribution Width 18.0 % (11.6-14.8) H Platelet Count 234 K/UL (150-450) Mean Platelet Volume 5.4 FL (6.5-10.1) L Neutrophils (%) (Auto) % (45.0-75.0) Lymphocytes (%) (Auto) % (20.0-45.0) Monocytes (%) (Auto) % (1.0-10.0) Eosinophils (%) (Auto) % (0.0-3.0) Basophils (%) (Auto) % (0.0-2.0) Erythrocyte Sedimentation Rate 52 MM/HR (0-30) H Prothrombin Time 13.2 SEC (9.30-11.50) H Prothromb Time International Ratio 1.2 (0.9-1.1) H Activated Partial Thromboplast Time 26 SEC (23-33) Sodium Level 141 MMOL/L (136-145) Potassium Level 3.2 MMOL/L (3.5-5.1) L Chloride Level 104 MMOL/L (98-107) Carbon Dioxide Level 24 MMOL/L (21-32) Anion Gap 13 mmol/L (5-15) Blood Urea Nitrogen 88 mg/dL (7-18) H Creatinine 3.7 MG/DL (0.55-1.30) H Estimat Glomerular Filtration Rate 14.3 mL/min (>60) Glucose Level 156 MG/DL (74-106) H Calcium Level 8.1 MG/DL (8.5-10.1) L Total Bilirubin 1.0 MG/DL (0.2-1.0) Aspartate Amino Transf (AST/SGOT) 47 U/L (15-37) H Alanine Aminotransferase (ALT/SGPT) 99 U/L (12-78) H Alkaline Phosphatase 153 U/L (46-116) H C-Reactive Protein, Quantitative 4.4 mg/dL (0.00-0.90) H Total Protein 5.2 G/DL (6.4-8.2) L Albumin 1.7 G/DL (3.4-5.0) L Globulin 3.5 g/dL Albumin/Globulin Ratio 0.5 (1.0-2.7) L Amylase Level 80 U/L (25-115) Lipase 81 U/L (73-393) Current Medications Medications (Trade) Dose Ordered Sig/Ghislaine Route PRN Reason Start Time Stop Time Status Last Admin Dose Admin Acetaminophen (Tylenol) 500 mg Q4H PRN ORAL Mild Pain (Pain Scale 1-3) 05/11/20 20:00 06/02/20 19:59 05/13/20 08:37 Albuterol Sulfate (Proventil MDI) 2 puff Q4H PRN INH Shortness of Breath 05/11/20 20:00 08/01/20 11:59 05/13/20 10:30 Apixaban (Eliquis) 2.5 mg BID ORAL 05/12/20 09:00 08/01/20 17:59 05/15/20 09:42 Aspirin (Ecotrin) 81 mg DAILY ORAL 05/12/20 09:00 06/17/20 15:59 05/15/20 09:41 Diltiazem HCl (Cardizem Tab) 30 mg EVERY 6 HOURS ORAL 05/12/20 09:15 06/11/20 09:14 05/14/20 05:43 Methylprednisolone Sodium Succinate (Solu-MEDROL) 60 mg DAILY IVP 05/12/20 09:00 08/06/20 08:59 05/15/20 09:41 Morphine Sulfate (Morphine Sulfate) 2 mg Q3H PRN IVP For Pain 05/11/20 22:30 05/18/20 22:29 Morphine Sulfate (Morphine Sulfate) 4 mg Q3H PRN IVP SEVERE PAIN 05/11/20 22:30 05/18/20 22:29 Pantoprazole (Protonix) 40 mg DAILY ORAL 05/12/20 09:00 06/02/20 15:59 05/15/20 09:42 Piperacillin Sod/ Tazobactam Sod 3.375 gm/Sodium Chloride 110 ml @ 27.5 mls/hr Q12HR IVPB 05/11/20 21:00 05/18/20 20:59 05/15/20 09:41 Salmeterol Xinafoate/ Fluticasone (Advair 100/50 Diskus) 1 puffs BIDRT INH 05/11/20 22:00 08/09/20 21:59 05/13/20 10:29 Camilo Cameron MD May 15, 2020 11:23
--- NOTE | 2020-05-15 11:55 | Surgery Progress Note ---
Surgery Progress Note Subjective Additional Comments ill appearing labs reviewed exam stable Objective Last 24 Hour Vital Signs Date Time Temp Pulse Resp B/P (MAP) Pulse Ox O2 Delivery O2 Flow Rate FiO2 05/15/20 06:00 98.0 92 16 99/69 (79) 100 05/15/20 05:03 100/55 05/15/20 05:00 89 14 100/55 (70) 100 05/15/20 04:00 Mechanical Ventilator Mechanical Ventilator 05/15/20 04:00 30 05/15/20 04:00 87 05/15/20 04:00 87 14 102/51 (68) 100 05/15/20 03:16 91 14 30 05/15/20 03:00 95 16 99/53 (68) 100 05/15/20 02:00 91 17 104/58 (73) 100 05/15/20 01:00 89 14 87/57 (67) 100 05/15/20 00:00 Mechanical Ventilator Mechanical Ventilator 05/15/20 00:00 90 14 96/53 (67) 100 05/14/20 23:45 100 14 30 05/14/20 23:00 95/52 05/14/20 23:00 91 14 95/52 (66) 100 05/14/20 22:00 86 14 81/44 (56) 100 05/14/20 21:00 89 14 90/53 (65) 100 05/14/20 20:00 Mechanical Ventilator Mechanical Ventilator 05/14/20 20:00 89 15 104/50 (68) 100 05/14/20 20:00 30 05/14/20 20:00 89 05/14/20 19:26 89 14 30 05/14/20 19:00 86 15 98/60 (73) 100 05/14/20 19:00 30 05/14/20 18:00 86 98/54 05/14/20 18:00 89 14 97/52 (67) 100 05/14/20 17:00 83 16 96/56 (69) 100 05/14/20 16:01 97.6 86 14 103/56 (72) 100 05/14/20 16:00 86 14 103/56 (72) 100 05/14/20 16:00 87 05/14/20 16:00 Mechanical Ventilator Mechanical Ventilator 05/14/20 15:35 88 14 30 05/14/20 15:00 84 13 100/50 (67) 100 05/14/20 14:00 86 14 92/55 (67) 100 05/14/20 13:00 83 14 107/44 (65) 100 05/14/20 12:01 97.8 90 14 111/44 (66) 100 05/14/20 12:00 Mechanical Ventilator Mechanical Ventilator 05/14/20 12:00 30 05/14/20 12:00 90 14 111/44 (66) 100 05/14/20 12:00 90 05/14/20 12:00 77 91/45 I&O Intake and Output 05/14/20 05/15/20 19:00 07:00 Intake Total 640.0 ml 385 ml Output Total 560 ml 480 ml Balance 80.0 ml -95 ml Free Water 90 ml IV Total 110.0 ml Tube Feeding 420 ml 385 ml Other 20 ml Output Urine Total 560 ml 480 ml # Bowel Movements 4 1 Dressing: saturated Cardiovascular: RSR Respiratory: decreased breath sounds Abdomen: soft, non-tender, present bowel sounds Extremities: no cyanosis Laboratory Tests Test 05/15/20 04:05 White Blood Count 13.6 K/UL (4.8-10.8) H Red Blood Count 4.43 M/UL (4.20-5.40) Hemoglobin 12.1 G/DL (12.0-16.0) Hematocrit 36.7 % (37.0-47.0) L Mean Corpuscular Volume 83 FL (80-99) Mean Corpuscular Hemoglobin 27.3 PG (27.0-31.0) Mean Corpuscular Hemoglobin Concent 33.0 G/DL (32.0-36.0) Red Cell Distribution Width 18.0 % (11.6-14.8) H Platelet Count 234 K/UL (150-450) Mean Platelet Volume 5.4 FL (6.5-10.1) L Neutrophils (%) (Auto) % (45.0-75.0) Lymphocytes (%) (Auto) % (20.0-45.0) Monocytes (%) (Auto) % (1.0-10.0) Eosinophils (%) (Auto) % (0.0-3.0) Basophils (%) (Auto) % (0.0-2.0) Erythrocyte Sedimentation Rate 52 MM/HR (0-30) H Prothrombin Time 13.2 SEC (9.30-11.50) H Prothromb Time International Ratio 1.2 (0.9-1.1) H Activated Partial Thromboplast Time 26 SEC (23-33) Sodium Level 141 MMOL/L (136-145) Potassium Level 3.2 MMOL/L (3.5-5.1) L Chloride Level 104 MMOL/L (98-107) Carbon Dioxide Level 24 MMOL/L (21-32) Anion Gap 13 mmol/L (5-15) Blood Urea Nitrogen 88 mg/dL (7-18) H Creatinine 3.7 MG/DL (0.55-1.30) H Estimat Glomerular Filtration Rate 14.3 mL/min (>60) Glucose Level 156 MG/DL (74-106) H Calcium Level 8.1 MG/DL (8.5-10.1) L Total Bilirubin 1.0 MG/DL (0.2-1.0) Aspartate Amino Transf (AST/SGOT) 47 U/L (15-37) H Alanine Aminotransferase (ALT/SGPT) 99 U/L (12-78) H Alkaline Phosphatase 153 U/L (46-116) H C-Reactive Protein, Quantitative 4.4 mg/dL (0.00-0.90) H Total Protein 5.2 G/DL (6.4-8.2) L Albumin 1.7 G/DL (3.4-5.0) L Globulin 3.5 g/dL Albumin/Globulin Ratio 0.5 (1.0-2.7) L Amylase Level 80 U/L (25-115) Lipase 81 U/L (73-393) Plan Problems: (1) Elevated troponin (2) Atrial fibrillation with RVR (3) COVID-19 Assessment & Plan: ++ as per pulm and ID DAILY ESTIMATED NEEDS: Needs based on Critical Care, ARF/ 56kg abw 22-28 kcals/kg 4521-9518 total kcals 0.8-1.5 (increase w/ renal improvement) g protein/kg 45-84 g total protein 25-30 mL/kg 0992-5502 total fluid mLs NUTRITION DIAGNOSIS: * Altered nutrition related lab values r/t clinical status as evidenced by elev BUN(82), creat(3.8) trending up, critical ABG (low pH, elev CO2)-> now improved. * Swallowing difficulty R/T respiratory status as evidenced by s/p oral intubation, on OGT feeds. 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: LENS CUTTER eval post extubation ENTERAL NUTRITION RECOMMENDATIONS: Nepro @ 35ml/hr x 24 hrs to provide 840ml, 1512kcal, 68g prot, 610ml free water * W/ worsening renal fxn, rec to continue Nepro * As tolerated, increase goal rate to 35ml/hr x 24 hrs to meet 100% est kcal/prot needs ADDITIONAL RECOMMENDATIONS: 1) Calibrated bedscale wt 2) Monitor renal fxn and lytes, need to continue Nepro Creat trending up 3) Rec niss w/ solumedrol (4) Community acquired pneumonia (5) COPD (chronic obstructive pulmonary disease) (6) Pulmonary fibrosis (7) Asthma (8) History of asthma (9) NSTEMI (non-ST elevated myocardial infarction) (10) Moderate to severe pulmonary hypertension (11) Asthma exacerbation (12) Abnormal LFTs Assessment & Plan: afebrile, HD stable labs noted lft's elevated US reviewed exam benign gb likely reactive from underlying pathology unlikely cholecystitis clinically fluid overload trend labs will monitor exam clinically covid + prognosis guarded cxr reviewed on abx worsening plan repeat US Gallbladder demonstrates wall thickening and wall edema, gallbladder wall measuring up to 6 mm thick. There are gallstones. Sonographic Escoto's sign is negative. Common bile duct measures 3 mm in diameter. No intrahepatic biliary ductal dilatation. Liver demonstrates normal echogenicity, no focal abnormality. Portal vein and hepatic veins are patent. Pancreas is unremarkable. Spleen is unremarkable. Left kidney measures 9.2 cm in length. Right kidney measures 9.9 cm length. Both kidneys demonstrate normal echogenicity. There is no hydronephrosis. Small cyst is seen in the right kidney. . Abdominal aorta was not imaged . There is trace ascites. There is a small right pleural effusion incidentally noted Impression: Small right pleural effusion. Trace ascites Cholelithiasis. Gallbladder wall thickening may be related to hemodynamic factors causing the pleural fluid and ascites, but could also indicate acute cholecystitis. Consider nuclear medicine hepatobiliary scan if there is high clinical suspicion. Negative for dilated bile ducts Small right renal cyst incidentally noted (13) Acute respiratory failure with hypoxia Quentin Sanchez May 15, 2020 11:55
--- NOTE | 2020-05-15 12:15 | NUR ---
NURSE NOTES: itzel updated on patient progress, she is alert to name, time, and place, she denies any pain and when assessed using the FLACC scale her pain is 0. remains on tube feeding at 35ml/hr,
--- NOTE | 2020-05-15 14:35 | NUR ---
NURSE NOTES: new bottle of Nepro hung at rate of 35ml/hr. there is no residuals noted and flushed with 20ml of water, patient remains on restraints for reaching towards et-tube when providing passive range on motion,
--- NOTE | 2020-05-15 14:45 | NUR ---
NURSE NOTES: weaning trial failed with HR of 105-115, saturations of 98-100% and RR of 15. tidal volumes noted to range form 77-125mls per breath, Respiratory therapist encourages patient to takes deep breaths, patient returned to AC14, TV: 500, Fio2 30% with peep of 5.
--- NOTE | 2020-05-15 15:06 | General Progress Note ---
Subjective ROS Limited/Unobtainable: No Constitutional: Reports: malaise, weakness HEENT: Reports: no symptoms Cardiovascular: Reports: edema Respiratory: Reports: shortness of breath, sputum Gastrointestinal/Abdominal: Reports: difficulty swallowing Genitourinary: Reports: no symptoms Neurologic/Psychiatric: Reports: no symptoms Endocrine: Reports: no symptoms Hematologic/Lymphatic: Reports: anemia Allergies: Coded Allergies: CIPROFLOXACIN (Verified Allergy, Unknown, 09/27/17) All Systems: reviewed and negative except above Subjective no events. stable on the vent. no fevers or chills. no sob. no bleeding. +edema. low k. Objective Last 24 Hour Vital Signs Date Time Temp Pulse Resp B/P (MAP) Pulse Ox O2 Delivery O2 Flow Rate FiO2 05/15/20 11:01 93 14 30 05/15/20 11:00 95 14 95/52 (66) 100 05/15/20 10:00 98 15 99/56 (70) 100 05/15/20 09:00 91 14 81/52 (62) 100 05/15/20 08:00 97.6 97 14 92/55 (67) 100 05/15/20 07:16 92 14 30 05/15/20 07:00 94 14 92/56 (68) 100 05/15/20 06:00 98.0 92 16 99/69 (79) 100 05/15/20 05:03 100/55 05/15/20 05:00 89 14 100/55 (70) 100 05/15/20 04:00 Mechanical Ventilator Mechanical Ventilator 05/15/20 04:00 30 05/15/20 04:00 87 05/15/20 04:00 87 14 102/51 (68) 100 05/15/20 03:16 91 14 30 05/15/20 03:00 95 16 99/53 (68) 100 05/15/20 02:00 91 17 104/58 (73) 100 05/15/20 01:00 89 14 87/57 (67) 100 05/15/20 00:00 Mechanical Ventilator Mechanical Ventilator 05/15/20 00:00 90 14 96/53 (67) 100 05/14/20 23:45 100 14 30 05/14/20 23:00 95/52 05/14/20 23:00 91 14 95/52 (66) 100 05/14/20 22:00 86 14 81/44 (56) 100 05/14/20 21:00 89 14 90/53 (65) 100 05/14/20 20:00 Mechanical Ventilator Mechanical Ventilator 05/14/20 20:00 89 15 104/50 (68) 100 05/14/20 20:00 30 05/14/20 20:00 89 05/14/20 19:26 89 14 30 05/14/20 19:00 86 15 98/60 (73) 100 05/14/20 19:00 30 05/14/20 18:00 86 98/54 05/14/20 18:00 89 14 97/52 (67) 100 05/14/20 17:00 83 16 96/56 (69) 100 05/14/20 16:01 97.6 86 14 103/56 (72) 100 05/14/20 16:00 86 14 103/56 (72) 100 05/14/20 16:00 87 05/14/20 16:00 Mechanical Ventilator Mechanical Ventilator 05/14/20 15:35 88 14 30 Intake and Output 05/14/20 05/15/20 19:00 07:00 Intake Total 640.0 ml 420 ml Output Total 560 ml 520 ml Balance 80.0 ml -100 ml Free Water 90 ml IV Total 110.0 ml Tube Feeding 420 ml 420 ml Other 20 ml Output Urine Total 560 ml 520 ml # Bowel Movements 4 1 Laboratory Tests 05/15/20 04:05: White Blood Count 13.6H, Red Blood Count 4.43, Hemoglobin 12.1, Hematocrit 36.7L , Mean Corpuscular Volume 83, Mean Corpuscular Hemoglobin 27.3, Mean Corpuscular Hemoglobin Concent 33.0, Red Cell Distribution Width 18.0H, Platelet Count 234, Mean Platelet Volume 5.4L, Neutrophils (%) (Auto) , Lymphocytes (%) (Auto) , Monocytes (%) (Auto) , Eosinophils (%) (Auto) , Basophils (%) (Auto) , Erythrocyte Sedimentation Rate 52H, Prothrombin Time 13.2H, Prothromb Time International Ratio 1.2H, Activated Partial Thromboplast Time 26, Sodium Level 141, Potassium Level 3.2L, Chloride Level 104, Carbon Dioxide Level 24, Anion Gap 13, Blood Urea Nitrogen 88H, Creatinine 3.7H, Estimat Glomerular Filtration Rate 14.3, Glucose Level 156H, Calcium Level 8.1L, Total Bilirubin 1.0, Aspartate Amino Transf (AST/SGOT) 47H, Alanine Aminotransferase (ALT/SGPT) 99H, Alkaline Phosphatase 153H, C-Reactive Protein, Quantitative 4.4H, Total Protein 5.2L, Albumin 1.7L, Globulin 3.5, Albumin/Globulin Ratio 0.5L, Amylase Level 80, Lipase 81 Height (Feet): 5 Height (Inches): 3.00 Weight (Pounds): 160 Objective General Appearance: WD/WN, no apparent distress, alert. orally intubated EENT: PERRL/EOMI Neck: non-tender, normal alignment, supple Cardiovascular: normal rate, regular rhythm Respiratory/Chest: chest wall non-tender, lungs clear, normal breath sounds, no respiratory distress, no accessory muscle use Abdomen: normal bowel sounds, non tender, soft, no organomegaly Edema: no edema noted Arm (L), no edema noted Arm (R) Neurologic: occupational therapy aide II-XII grossly normal, alert, oriented x 3, responsive Skin: normal pigmentation Lymphatic: normal anterior cervical (L), normal anterior cervical (R) Assessment/Plan Problem List: (1) Pulmonary fibrosis ICD Codes: J84.10 - Pulmonary fibrosis, unspecified SNOMED: 83616280 (2) History of asthma ICD Codes: Z87.09 - Personal history of other diseases of the respiratory system SNOMED: 166944016 (3) Asthma ICD Codes: J45.909 - Unspecified asthma, uncomplicated SNOMED: 193498766 (4) NSTEMI (non-ST elevated myocardial infarction) ICD Codes: I21.4 - Non-ST elevation (NSTEMI) myocardial infarction SNOMED: 063541511 (5) Elevated troponin ICD Codes: R79.89 - Other specified abnormal findings of blood chemistry SNOMED: 478590984, 178662615, 665489863 (6) COPD (chronic obstructive pulmonary disease) ICD Codes: J44.9 - Chronic obstructive pulmonary disease, unspecified SNOMED: 97779958 (7) Atrial fibrillation with RVR ICD Codes: I48.91 - Unspecified atrial fibrillation SNOMED: 489458041447760 (8) Community acquired pneumonia ICD Codes: J18.9 - Pneumonia, unspecified organism SNOMED: 917333159 Status: stable Assessment/Plan: cont current rx vent support resp rx and suctioning sputum cultures noted off abx per id steroids wean per pulm monitor cxr tube feeds stress ulcer prophylaxis monitor labs/renal fxn replace k resp rx/mdi rate control with Bradford Yates MD May 15, 2020 15:06
--- NOTE | 2020-05-15 15:15 | NUR ---
NURSE NOTES: Heike updated on patient weaning attempt this afternoon, updated her mother is asking about her arrival time, [place], will arrive approximately in the evening.
[2020-05-15] MEDS: Meropenem 500 MG in NS 55 ML IVPB SCH ×2 (15:31→21:35)
--- NOTE | 2020-05-15 15:41 | NUR ---
CASE MANAGEMENT:REVIEW 05/15/20 SI;REINTUBATED 05/12/20 . ATRIAL FIBRILLATION W/RVR NSTEMI. COVID-19 + PNEUMONIA.RENAL FAILURE . LEUKOCYTOSIS ON SOLUMEDROL 97.6 97 14 92/55 100% MECHANICAL VENT FIO2 30% WBC 13.6 ESR 52 K+ 3.2 BUN/CREAT 88/3.7 BG 156 CA+ 8.1 AST/ALT 47/99 ALB 1.7 PT/INR 13.2/1.2 IS;IV MEROPENEM BID IV SOLU MEDROL QD ALBUTEROL MDI INH Q4HR/PRN US ABD limited-Cholelithiasis with nonspecific gallbladder wall thickening. Sonographic Escoto sign and however was not reported. If there is concern for acute cholecystitis recommend further evaluation with HIDA scan.No biliary ductal dilatation.Trace ascites and small right pleural effusion incidentally identified.Echogenic focus versus visualized along the falciform ligament may represent focal fatty infiltration versus small hemangioma. \: TRANSFERED TO ICU 05/11/20 TRANSFERRED FROM MED SURG TO RK 05/11/20 @ 0812 RK STATUS DCP;FROM HOME PLAN: CONT WOUND CARE CONT RESPIRATORY CARE Recommendation for hida scan
--- NOTE | 2020-05-15 17:32 | NUR ---
NURSE NOTES: Patient repositioned and cleaned, tube feeding remains at 35ml/hr with no residual noted, patient once again made gestures in regards to her daughter arrival time. held diltiazem due to BP of 103/45
--- NOTE | 2020-05-15 19:10 | NUR ---
NURSE NOTES: Received report from DAMIAN Nichols. COVID positive 05/03 2E 05/11 4E to STD to ICU intubated. Pt asleep and open eyes to name. ETT 7.5/20cm: Vent AC 14, TV 500, FiO2 30% Peep 5 Weaning failed again today per AMRN. Restrain noted bilaterally wrist (Started 05/14 2qm) Skin: inner thigh and inner buttox skin tear. Afebrile and VSS. A-fib on the school bus monitor and hypotensive. OGT: Nepro at 35mL/hr No residual noted. IV Left FA 20G TKO. Safety measures observed and no acute distress noted. Will continue to monitor.
--- NOTE | 2020-05-15 19:36 | NUR ---
NURSE HAND-OFF REPORT: Latest Vital Signs: Temperature 98.2 , Pulse 100 , B/P 90 /50 , Respiratory Rate 14 , O2 SAT 100 , Mechanical Ventilator, O2 Flow Rate 4.0 . Vital Sign Comment: EKG Rhythm: Atrial Fibrillation Rhythm change?: N Notified?: Tracy Linn MD Response: No New Orders Received Latest Lechuga Fall Score: 50 Fall Risk: High Risk Safety Measures: Call light Within Reach, Bed Alarm Zone 1, Side Rails Side Rails x3, Bed position Low and Locked. Fall Precautions: Yellow Socks Door Sign Patient Fall Education Report given to DAMIAN Bowman.
--- NOTE | 2020-05-15 19:45 | NUR ---
NURSE NOTES: 05/14 US abd shows Cholelithiasis. HIDA scan was ordered but cancelled several times due to Covid 19 status.
[2020-05-15] MEDS ORDERED: Tubing IV Secondary IV ONE (20:02)
--- NOTE | 2020-05-15 22:00 | NUR ---
NURSE NOTES: PM meds provided. Repositioned and oral care provided Afebrile and VSS. Pt family member, Heike called. She will be arriving around 1700 tomorrow. Safety measures observed and no acute distress noted. Will continue to monitor.
[2020-05-16] VITALS (25 sets, daily range): BP systolic 88–112; BP diastolic 44–68
[2020-05-16] MEDS: dilTIAZem HCl 30mg tab ORAL SCH
--- NOTE | 2020-05-16 | NUR ---
NURSE NOTES: No change. Afebrile and VSS. Safety measures observed and no acute distress noted. Will continue to monitor.
--- NOTE | 2020-05-16 02:00 | NUR ---
NURSE NOTES: AM care provided Repositioned and oral care provided. Afebrile and VSS. Rectal tube and mueller, CDI. IV site CDI. Safety measures observed and no acute distress noted. Will continue to monitor.
--- NOTE | 2020-05-16 03:28 | Cardiology Progress Note ---
Subjective DATE OF SERVICE: May 15, 2020 Condition remains critical; patient remains on [facility] ventilation. Monitor: AFib with episodes of RVR and nonsustained VTach. Lactic acidosis resolved BP has dropped as well with deterioration of acid-base status. Episodes of tachyarrhythmias noted. Objective Last 24 Hour Vital Signs Date Time Temp Pulse Resp B/P (MAP) Pulse Ox O2 Delivery O2 Flow Rate FiO2 05/16/20 03:17 103 14 30 05/16/20 03:00 110 14 102/50 (67) 100 05/16/20 02:00 109 14 102/48 (66) 100 05/16/20 01:00 114 14 109/53 (71) 100 05/16/20 00:00 98.0 106 16 103/60 (74) 100 05/16/20 00:00 103/60 05/16/20 00:00 Mechanical Ventilator Mechanical Ventilator 05/15/20 22:24 117 15 30 05/15/20 22:00 111 17 102/50 (67) 100 05/15/20 21:00 104 14 89/55 (66) 100 05/15/20 20:00 113 05/15/20 20:00 30 05/15/20 20:00 113 14 90/50 (63) 100 05/15/20 20:00 Mechanical Ventilator Mechanical Ventilator 05/15/20 19:25 100 14 30 05/15/20 19:00 113 14 90/50 (63) 100 05/15/20 18:00 108 103/45 05/15/20 18:00 108 15 103/46 (65) 100 05/15/20 17:00 104 15 104/50 (68) 100 05/15/20 16:00 Mechanical Ventilator Mechanical Ventilator 05/15/20 16:00 30 05/15/20 16:00 98.2 104 16 106/60 (75) 100 05/15/20 16:00 107 05/15/20 15:23 97 14 30 05/15/20 15:00 101 14 100/59 (73) 100 05/15/20 14:00 101 14 99/57 (71) 100 05/15/20 13:00 95 14 96/59 (71) 100 05/15/20 12:00 Mechanical Ventilator Mechanical Ventilator 05/15/20 12:00 97.8 99 14 99/56 (70) 100 05/15/20 12:00 99 99/56 05/15/20 12:00 94 05/15/20 12:00 30 05/15/20 11:01 93 14 30 05/15/20 11:00 95 14 95/52 (66) 100 05/15/20 10:00 98 15 99/56 (70) 100 05/15/20 09:00 91 14 81/52 (62) 100 05/15/20 08:00 92 05/15/20 08:00 30 05/15/20 08:00 Mechanical Ventilator Mechanical Ventilator 05/15/20 08:00 97.6 97 14 92/55 (67) 100 05/15/20 07:16 92 14 30 05/15/20 07:00 94 14 92/56 (68) 100 05/15/20 06:00 98.0 92 16 99/69 (79) 100 05/15/20 05:03 100/55 05/15/20 05:00 89 14 100/55 (70) 100 05/15/20 04:00 Mechanical Ventilator Mechanical Ventilator 05/15/20 04:00 30 05/15/20 04:00 87 05/15/20 04:00 87 14 102/51 (68) 100 ROS: unchanged from my eval of 05/03/20 HEENT: Orally intubated, Mechanically Ventilated, Thin secretions ET Tube LUNGS: no accessory muscle use, expiratory wheezing, diminished breath sounds CARDIAC: normal S1 and S2, no murmur, irregularly irregular ABDOMEN: normal bowel sounds, non tender, soft, no organomegaly EXTREMITIES: no calf tenderness, +1 edema Laboratory Tests Test 05/15/20 04:05 White Blood Count 13.6 K/UL (4.8-10.8) H Red Blood Count 4.43 M/UL (4.20-5.40) Hemoglobin 12.1 G/DL (12.0-16.0) Hematocrit 36.7 % (37.0-47.0) L Mean Corpuscular Volume 83 FL (80-99) Mean Corpuscular Hemoglobin 27.3 PG (27.0-31.0) Mean Corpuscular Hemoglobin Concent 33.0 G/DL (32.0-36.0) Red Cell Distribution Width 18.0 % (11.6-14.8) H Platelet Count 234 K/UL (150-450) Mean Platelet Volume 5.4 FL (6.5-10.1) L Neutrophils (%) (Auto) % (45.0-75.0) Lymphocytes (%) (Auto) % (20.0-45.0) Monocytes (%) (Auto) % (1.0-10.0) Eosinophils (%) (Auto) % (0.0-3.0) Basophils (%) (Auto) % (0.0-2.0) Erythrocyte Sedimentation Rate 52 MM/HR (0-30) H Prothrombin Time 13.2 SEC (9.30-11.50) H Prothromb Time International Ratio 1.2 (0.9-1.1) H Activated Partial Thromboplast Time 26 SEC (23-33) Sodium Level 141 MMOL/L (136-145) Potassium Level 3.2 MMOL/L (3.5-5.1) L Chloride Level 104 MMOL/L (98-107) Carbon Dioxide Level 24 MMOL/L (21-32) Anion Gap 13 mmol/L (5-15) Blood Urea Nitrogen 88 mg/dL (7-18) H Creatinine 3.7 MG/DL (0.55-1.30) H Estimat Glomerular Filtration Rate 14.3 mL/min (>60) Glucose Level 156 MG/DL (74-106) H Calcium Level 8.1 MG/DL (8.5-10.1) L Total Bilirubin 1.0 MG/DL (0.2-1.0) Aspartate Amino Transf (AST/SGOT) 47 U/L (15-37) H Alanine Aminotransferase (ALT/SGPT) 99 U/L (12-78) H Alkaline Phosphatase 153 U/L (46-116) H C-Reactive Protein, Quantitative 4.4 mg/dL (0.00-0.90) H Total Protein 5.2 G/DL (6.4-8.2) L Albumin 1.7 G/DL (3.4-5.0) L Globulin 3.5 g/dL Albumin/Globulin Ratio 0.5 (1.0-2.7) L Amylase Level 80 U/L (25-115) Lipase 81 U/L (73-393) Assessment/Plan Assessment/Plan Acute on chronic respiratory acidosis Acute respiratory failure Shock LE edema due to severe pulmonary hypertension and right heart strain COPD exacerb with active bronchospasm Lactic acidosis COVID 19 PNA Acute on chr renal failure - now with hyperkalemia Chronic systolic/diastolic CHF Pulmonary fibrosis with chronic hypoxia Paroxysmal AFib with RVR Hx Multifocal atrial arrhythmias Pulmonary HTN - severe Hx NSVTach Acute myocardial ischemia Vent support Hold diltiazem for low BP, but titrate for optimal rate control Steroids per pulmonary Inhaled bronchodilators IVF adjusted Reassess for diuresis; not presently indicated Full anticoagulation for cardioembolic prophyl Isolation Anti-viral rx per Simone Shirley MD May 16, 2020 03:28
--- NOTE | 2020-05-16 04:00 | NUR ---
NURSE NOTES: Pt had large amount of loose stool noted. Changed soiled gown, linens, and slider 2nd time. Pt is asymptomatic. Safety measures observed and no acute distress noted. Will continue to monitor.
[2020-05-16] MEDS: dilTIAZem HCl 60mg tab ORAL SCH ×3 (06:00→22:00)
--- NOTE | 2020-05-16 07:25 | NUR ---
HAND-OFF: Report given to DAMIAN Payan. Endorsed POC.
--- NOTE | 2020-05-16 07:30 | NUR ---
NURSE NOTES: Report received from Gracie Braden RN.Pt asleep noted no resp distress,orally intubated ETT 7.5,lip line 20 cm, AC14,TV550,FIO2 30%,PEEP 5,no signs of pain or discomfort,S-Tach on the monitor ,bilat soft wrist restraints in placed ,OGT in placed per auscultation with Nepro at 35ml/hr,no residual noted ,[place] cath draining yellow urine ,skin warm and dry ,IV site to LFA intact,SR up x2 HOB elevated ,bed lock in lowest position ,will continue with plans of care.
--- NOTE | 2020-05-16 08:17 | General Progress Note ---
Subjective ROS Limited/Unobtainable: Yes Constitutional: Reports: malaise, weakness HEENT: Reports: no symptoms Cardiovascular: Reports: no symptoms Respiratory: Reports: shortness of breath, sputum Gastrointestinal/Abdominal: Reports: difficulty swallowing Genitourinary: Reports: no symptoms Neurologic/Psychiatric: Reports: no symptoms Endocrine: Reports: no symptoms Hematologic/Lymphatic: Reports: anemia Allergies: Coded Allergies: CIPROFLOXACIN (Verified Allergy, Unknown, 09/27/17) All Systems: reviewed and negative except above Subjective no events. stable on the vent. failed wean yesterday. minimal secretions. no fevers. labs reviewed. Objective Last 24 Hour Vital Signs Date Time Temp Pulse Resp B/P (MAP) Pulse Ox O2 Delivery O2 Flow Rate FiO2 05/16/20 06:00 117 21 100/52 (68) 100 05/16/20 06:00 100/52 05/16/20 05:00 106 17 108/57 (74) 100 05/16/20 04:00 30 05/16/20 04:00 109 05/16/20 04:00 109 15 98/49 (65) 05/16/20 04:00 Mechanical Ventilator Mechanical Ventilator 05/16/20 03:17 103 14 30 05/16/20 03:00 110 14 102/50 (67) 100 05/16/20 02:00 109 14 102/48 (66) 100 05/16/20 01:00 114 14 109/53 (71) 100 05/16/20 00:00 98.0 106 16 103/60 (74) 100 05/16/20 00:00 103/60 05/16/20 00:00 Mechanical Ventilator Mechanical Ventilator 05/15/20 22:24 117 15 30 05/15/20 22:00 111 17 102/50 (67) 100 05/15/20 21:00 104 14 89/55 (66) 100 05/15/20 20:00 113 05/15/20 20:00 30 05/15/20 20:00 113 14 90/50 (63) 100 05/15/20 20:00 Mechanical Ventilator Mechanical Ventilator 05/15/20 19:25 100 14 30 05/15/20 19:00 113 14 90/50 (63) 100 05/15/20 18:00 108 103/45 05/15/20 18:00 108 15 103/46 (65) 100 05/15/20 17:00 104 15 104/50 (68) 100 05/15/20 16:00 Mechanical Ventilator Mechanical Ventilator 05/15/20 16:00 30 05/15/20 16:00 98.2 104 16 106/60 (75) 100 05/15/20 16:00 107 05/15/20 15:23 97 14 30 05/15/20 15:00 101 14 100/59 (73) 100 05/15/20 14:00 101 14 99/57 (71) 100 05/15/20 13:00 95 14 96/59 (71) 100 05/15/20 12:00 Mechanical Ventilator Mechanical Ventilator 05/15/20 12:00 97.8 99 14 99/56 (70) 100 05/15/20 12:00 99 99/56 05/15/20 12:00 94 05/15/20 12:00 30 05/15/20 11:01 93 14 30 05/15/20 11:00 95 14 95/52 (66) 100 05/15/20 10:00 98 15 99/56 (70) 100 05/15/20 09:00 91 14 81/52 (62) 100 Intake and Output 05/15/20 05/16/20 19:00 07:00 Intake Total 665.0 ml 415 ml Output Total 720 ml 495 ml Balance -55.0 ml -80 ml Free Water 30 ml 30 ml IV Total 165.0 ml Tube Feeding 420 ml 385 ml Other 50 ml Output Urine Total 645 ml 495 ml Stool Total 75 ml Height (Feet): 5 Height (Inches): 3.00 Weight (Pounds): 160 Objective General Appearance: WD/WN, no apparent distress, alert. orally intubated EENT: PERRL/EOMI Neck: non-tender, normal alignment, supple Cardiovascular: normal rate, regular rhythm Respiratory/Chest: chest wall non-tender, lungs clear, normal breath sounds, no respiratory distress, no accessory muscle use Abdomen: normal bowel sounds, non tender, soft, no organomegaly Edema: no edema noted Arm (L), no edema noted Arm (R) Neurologic: machine zipper trimmer II-XII grossly normal, alert, oriented x 3, responsive Skin: normal pigmentation Lymphatic: normal anterior cervical (L), normal anterior cervical (R) Assessment/Plan Problem List: (1) Pulmonary fibrosis ICD Codes: J84.10 - Pulmonary fibrosis, unspecified SNOMED: 56677754 (2) History of asthma ICD Codes: Z87.09 - Personal history of other diseases of the respiratory system SNOMED: 325912539 (3) Asthma ICD Codes: J45.909 - Unspecified asthma, uncomplicated SNOMED: 695924425 (4) NSTEMI (non-ST elevated myocardial infarction) ICD Codes: I21.4 - Non-ST elevation (NSTEMI) myocardial infarction SNOMED: 591724400 (5) Elevated troponin ICD Codes: R79.89 - Other specified abnormal findings of blood chemistry SNOMED: 471310659, 041384592, 503676448 (6) COPD (chronic obstructive pulmonary disease) ICD Codes: J44.9 - Chronic obstructive pulmonary disease, unspecified SNOMED: 25735962 (7) Atrial fibrillation with RVR ICD Codes: I48.91 - Unspecified atrial fibrillation SNOMED: 377664811399902 (8) Community acquired pneumonia ICD Codes: J18.9 - Pneumonia, unspecified organism SNOMED: 274885597 Status: stable Assessment/Plan: cont current rx vent support resp rx and suctioning wean as able iv abx per ID steroids wean per pulm monitor cxr tube feeds stress ulcer prophylaxis monitor labs/renal fxn replace k resp rx/mdi rate control with Bradford Yates MD May 16, 2020 08:17
--- NOTE | 2020-05-16 08:30 | NUR ---
NURSE NOTES: Dr Linn at bedside,updated re pt's status,informed re low K level,K supplement ordered.
[2020-05-16] MEDS: Solu-MEDROL 125mg Inj IVP SCH (08:57)
[2020-05-16] MEDS: Aspirin EC 81mg tab ORAL SCH (08:57)
[2020-05-16] MEDS: Eliquis 2.5mg tablet ORAL SCH ×2 (08:58→18:25)
[2020-05-16] MEDS: Meropenem 500 MG in NS 55 ML IVPB SCH ×2 (09:01→20:51)
[2020-05-16] MEDS: Wixela 100/50 Inhaler - 60 dose INH SCH ×2 (09:02→22:00)
--- NOTE | 2020-05-16 10:40 | NUR ---
RADIOLOGY DEPT., CHEST X-RAY DONE.-P.DYE
--- NOTE | 2020-05-16 11:00 | NUR ---
NURSE NOTES: Pt stable awake on and off,follows simple command ,helps in turning to sides.
--- NOTE | 2020-05-16 11:04 | Diagnostic Imaging Report ---
EXAM: XR Chest, 1 View CLINICAL HISTORY: INFECT TECHNIQUE: Frontal view of the chest. COMPARISON: Chest radiograph on 05/11/2020 FINDINGS: Hardware: Endotracheal tube terminates in the region of the mid thoracic trachea. Enteric tube courses past the diaphragm and out of the [id number]. Lungs/pleura: Improved aeration of the lungs. Persistent patchy opacities bilaterally, worst in the right upper lung and left mid and lower lung. Possible trace left pleural effusion. Heart/mediastinum: Stable borderline size of the cardiac silhouette. Atherosclerotic calcifications of the aorta. Soft tissues: Unremarkable. Bones: No acute fracture. Upper abdomen: Normal. IMPRESSION: 1. Endotracheal tube terminates in the region of the mid thoracic trachea. Enteric tube courses past the diaphragm and out of the field-of- view. 2. Improved aeration of the lungs. Persistent patchy opacities bilaterally, worst in the right upper lung and left mid and lower lung. Possible trace left pleural effusion.
--- NOTE | 2020-05-16 12:37 | Pulmonology Progress Note ---
Subjective ROS Limited/Unobtainable: Yes Constitutional: Denies: fever Gastrointestinal/Abdominal: Denies: nausea, vomiting, diarrhea Musculoskeletal: Denies: pain Allergies: Coded Allergies: CIPROFLOXACIN (Verified Allergy, Unknown, 09/27/17) All Systems: reviewed and negative except above Objective Last 24 Hour Vital Signs Date Time Temp Pulse Resp B/P (MAP) Pulse Ox O2 Delivery O2 Flow Rate FiO2 05/16/20 12:00 103 05/16/20 12:00 30 05/16/20 12:00 98.5 99 18 93/47 (62) 100 05/16/20 12:00 Mechanical Ventilator Mechanical Ventilator 05/16/20 11:15 106 15 30 05/16/20 11:00 105 16 90/51 (64) 100 05/16/20 10:00 109 15 112/58 (76) 100 05/16/20 09:00 112 15 107/59 (75) 100 05/16/20 08:00 100 05/16/20 08:00 Mechanical Ventilator Mechanical Ventilator 05/16/20 08:00 98.9 108 15 105/51 (69) 100 05/16/20 08:00 30 05/16/20 07:28 102 14 30 05/16/20 07:00 106 16 105/68 (80) 100 05/16/20 06:00 117 21 100/52 (68) 100 05/16/20 06:00 100/52 05/16/20 05:00 106 17 108/57 (74) 100 05/16/20 04:00 30 05/16/20 04:00 109 05/16/20 04:00 109 15 98/49 (65) 05/16/20 04:00 Mechanical Ventilator Mechanical Ventilator 05/16/20 03:17 103 14 30 05/16/20 03:00 110 14 102/50 (67) 100 05/16/20 02:00 109 14 102/48 (66) 100 05/16/20 01:00 114 14 109/53 (71) 100 05/16/20 00:00 98.0 106 16 103/60 (74) 100 05/16/20 00:00 103/60 05/16/20 00:00 Mechanical Ventilator Mechanical Ventilator 05/15/20 22:24 117 15 30 05/15/20 22:00 111 17 102/50 (67) 100 05/15/20 21:00 104 14 89/55 (66) 100 05/15/20 20:00 113 05/15/20 20:00 30 05/15/20 20:00 113 14 90/50 (63) 100 05/15/20 20:00 Mechanical Ventilator Mechanical Ventilator 05/15/20 19:25 100 14 30 05/15/20 19:00 113 14 90/50 (63) 100 05/15/20 18:00 108 103/45 05/15/20 18:00 108 15 103/46 (65) 100 05/15/20 17:00 104 15 104/50 (68) 100 05/15/20 16:00 Mechanical Ventilator Mechanical Ventilator 05/15/20 16:00 30 05/15/20 16:00 98.2 104 16 106/60 (75) 100 05/15/20 16:00 107 05/15/20 15:23 97 14 30 05/15/20 15:00 101 14 100/59 (73) 100 05/15/20 14:00 101 14 99/57 (71) 100 05/15/20 13:00 95 14 96/59 (71) 100 Intake and Output 05/15/20 05/16/20 19:00 07:00 Intake Total 665.0 ml 450 ml Output Total 720 ml 575 ml Balance -55.0 ml -125 ml Free Water 30 ml 30 ml IV Total 165.0 ml Tube Feeding 420 ml 420 ml Other 50 ml Output Urine Total 645 ml 575 ml Stool Total 75 ml Current Medications Medications (Trade) Dose Ordered Sig/Ghislaine Route PRN Reason Start Time Stop Time Status Last Admin Dose Admin Acetaminophen (Tylenol) 500 mg Q4H PRN ORAL Mild Pain (Pain Scale 1-3) 05/11/20 20:00 06/02/20 19:59 05/13/20 08:37 Albuterol Sulfate (Proventil MDI) 2 puff Q4H PRN INH Shortness of Breath 05/11/20 20:00 08/01/20 11:59 05/13/20 10:30 Apixaban (Eliquis) 2.5 mg BID ORAL 05/12/20 09:00 08/01/20 17:59 05/16/20 08:58 Aspirin (Ecotrin) 81 mg DAILY ORAL 05/12/20 09:00 06/17/20 15:59 05/16/20 08:57 Diltiazem HCl (Cardizem Tab) 60 mg EVERY 8 HOURS ORAL 05/16/20 06:00 06/15/20 05:59 Meropenem 500 mg/ Sodium Chloride 55 ml @ 110 mls/hr Q12HR IVPB 05/15/20 13:00 05/20/20 12:59 05/16/20 09:01 Methylprednisolone Sodium Succinate (Solu-MEDROL) 60 mg DAILY IVP 05/12/20 09:00 08/06/20 08:59 05/16/20 08:57 Morphine Sulfate (Morphine Sulfate) 2 mg Q3H PRN IVP For Pain 05/11/20 22:30 05/18/20 22:29 Morphine Sulfate (Morphine Sulfate) 4 mg Q3H PRN IVP SEVERE PAIN 05/11/20 22:30 05/18/20 22:29 Pantoprazole (Protonix) 40 mg DAILY ORAL 05/12/20 09:00 06/02/20 15:59 05/16/20 08:57 Salmeterol Xinafoate/ Fluticasone (Advair 100/50 Diskus) 1 puffs BIDRT INH 05/11/20 22:00 08/09/20 21:59 05/16/20 09:02 Assessment/Plan Assessment/Plan Pulmonary CCM Progress Note HPI Patient is a 80-year-old female history of Chronic Obstructive Pulmonary Disease/Asthma, Congestive Heart Failure, on maintenance Eliquis, admitted with Covid 19 Pneumonia, respiratory failure on mechanical ventilator, AB/Covid Mx per ID. Physical Exam Vital Signs Noted PE: Deferred Covid 19 Assessment/Plan Impression: COVID-19 Chronic obstructive pulmonary disease/Asthma Community acquired pneumonia Atrial fibrillation with RVR Elevated troponin Congestive heart Failure sinus tachycardia Hypoxemia transaminitis with gallstones consider cholecystitis acute on chronic renal failure acute respiratory failure Plan ID noted and discussed/ cultures reviewed Vent support/try to wean as able daily wean oxygen - currently stable feeds per dietary IV therapy noted Bronchodilator therapy Eliquis and monitor HH Monitor labs/ renal follow up Covid 19 Isolation- repeat swab+ nutrition and NG feeds reviewed care and optimize position change surgical follow up noted monitor protein levels medications/laboratory data/nursing notes/ICU care reviewed in detail note reviewed and edited care discussed with RN and RT ICU time spent >40 minutes CXR: ETT appropriate, ersistent patchy consolidations bilaterally Laboratory Tests Noted Simone Anguiano MD May 16, 2020 12:37
--- NOTE | 2020-05-16 13:00 | NUR ---
NURSE NOTES: Pulled up repositioned,Rectal tube leaking,pt with liquid diarrhea like tarry black stools ,bed bath given,kept dry and clean.
--- NOTE | 2020-05-16 14:55 | Surgery Progress Note ---
Surgery Progress Note Subjective Additional Comments afebrile HD stable labs okay no n/v on support failed weaning Objective Last 24 Hour Vital Signs Date Time Temp Pulse Resp B/P (MAP) Pulse Ox O2 Delivery O2 Flow Rate FiO2 05/16/20 14:02 106 14 100/54 (69) 100 05/16/20 13:05 106 101/52 05/16/20 13:00 115 14 97/50 (66) 100 05/16/20 12:00 103 05/16/20 12:00 30 05/16/20 12:00 98.5 99 18 93/47 (62) 100 05/16/20 12:00 Mechanical Ventilator Mechanical Ventilator 05/16/20 11:15 106 15 30 05/16/20 11:00 105 16 90/51 (64) 100 05/16/20 10:00 109 15 112/58 (76) 100 05/16/20 09:00 112 15 107/59 (75) 100 05/16/20 08:00 100 05/16/20 08:00 Mechanical Ventilator Mechanical Ventilator 05/16/20 08:00 98.9 108 15 105/51 (69) 100 05/16/20 08:00 30 05/16/20 07:28 102 14 30 05/16/20 07:00 106 16 105/68 (80) 100 05/16/20 06:00 117 21 100/52 (68) 100 05/16/20 06:00 100/52 05/16/20 05:00 106 17 108/57 (74) 100 05/16/20 04:00 30 05/16/20 04:00 109 05/16/20 04:00 109 15 98/49 (65) 05/16/20 04:00 Mechanical Ventilator Mechanical Ventilator 05/16/20 03:17 103 14 30 05/16/20 03:00 110 14 102/50 (67) 100 05/16/20 02:00 109 14 102/48 (66) 100 05/16/20 01:00 114 14 109/53 (71) 100 05/16/20 00:00 98.0 106 16 103/60 (74) 100 05/16/20 00:00 103/60 05/16/20 00:00 Mechanical Ventilator Mechanical Ventilator 05/15/20 22:24 117 15 30 05/15/20 22:00 111 17 102/50 (67) 100 05/15/20 21:00 104 14 89/55 (66) 100 05/15/20 20:00 113 05/15/20 20:00 30 05/15/20 20:00 113 14 90/50 (63) 100 05/15/20 20:00 Mechanical Ventilator Mechanical Ventilator 05/15/20 19:25 100 14 30 05/15/20 19:00 113 14 90/50 (63) 100 05/15/20 18:00 108 103/45 05/15/20 18:00 108 15 103/46 (65) 100 05/15/20 17:00 104 15 104/50 (68) 100 05/15/20 16:00 Mechanical Ventilator Mechanical Ventilator 05/15/20 16:00 30 05/15/20 16:00 98.2 104 16 106/60 (75) 100 05/15/20 16:00 107 05/15/20 15:23 97 14 30 05/15/20 15:00 101 14 100/59 (73) 100 I&O Intake and Output 05/15/20 05/16/20 19:00 07:00 Intake Total 665.0 ml 450 ml Output Total 720 ml 575 ml Balance -55.0 ml -125 ml Free Water 30 ml 30 ml IV Total 165.0 ml Tube Feeding 420 ml 420 ml Other 50 ml Output Urine Total 645 ml 575 ml Stool Total 75 ml Dressing: other Wound: other Cardiovascular: RSR Respiratory: decreased breath sounds Abdomen: soft, non-tender, present bowel sounds Extremities: no tenderness, no cyanosis Plan Problems: (1) Elevated troponin (2) Atrial fibrillation with RVR (3) COVID-19 Assessment & Plan: ++ as per pulm and ID DAILY ESTIMATED NEEDS: Needs based on Critical Care, ARF/ 56kg abw 22-28 kcals/kg 8660-8320 total kcals 0.8-1.5 (increase w/ renal improvement) g protein/kg 45-84 g total protein 25-30 mL/kg 5479-8293 total fluid mLs NUTRITION DIAGNOSIS: * Altered nutrition related lab values r/t clinical status as evidenced by elev BUN(82), creat(3.8) trending up, critical ABG (low pH, elev CO2)-> now improved. * Swallowing difficulty R/T respiratory status as evidenced by s/p oral intubation, on OGT feeds. 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: LICENSED SALES ASSISTANT eval post extubation ENTERAL NUTRITION RECOMMENDATIONS: Nepro @ 35ml/hr x 24 hrs to provide 840ml, 1512kcal, 68g prot, 610ml free water * W/ worsening renal fxn, rec to continue Nepro * As tolerated, increase goal rate to 35ml/hr x 24 hrs to meet 100% est kcal/prot needs ADDITIONAL RECOMMENDATIONS: 1) Calibrated bedscale wt 2) Monitor renal fxn and lytes, need to continue Nepro Creat trending up 3) Rec niss w/ solumedrol (4) Community acquired pneumonia (5) COPD (chronic obstructive pulmonary disease) (6) Pulmonary fibrosis (7) Asthma (8) History of asthma (9) NSTEMI (non-ST elevated myocardial infarction) (10) Moderate to severe pulmonary hypertension (11) Asthma exacerbation (12) Abnormal LFTs Assessment & Plan: afebrile, HD stable labs noted lft's elevated US reviewed exam benign gb likely reactive from underlying pathology unlikely cholecystitis clinically fluid overload trend labs will monitor exam clinically covid + prognosis guarded cxr reviewed on abx worsening plan repeat US Gallbladder demonstrates wall thickening and wall edema, gallbladder wall measuring up to 6 mm thick. There are gallstones. Sonographic Escoto's sign is negative. Common bile duct measures 3 mm in diameter. No intrahepatic biliary ductal dilatation. Liver demonstrates normal echogenicity, no focal abnormality. Portal vein and hepatic veins are patent. Pancreas is unremarkable. Spleen is unremarkable. Left kidney measures 9.2 cm in length. Right kidney measures 9.9 cm length. Both kidneys demonstrate normal echogenicity. There is no hydronephrosis. Small cyst is seen in the right kidney. . Abdominal aorta was not imaged . There is trace ascites. There is a small right pleural effusion incidentally noted Impression: Small right pleural effusion. Trace ascites Cholelithiasis. Gallbladder wall thickening may be related to hemodynamic factors causing the pleural fluid and ascites, but could also indicate acute cholecystitis. Consider nuclear medicine hepatobiliary scan if there is high clinical suspicion. Negative for dilated bile ducts Small right renal cyst incidentally noted (13) Acute respiratory failure with hypoxia Qeuntin Sanchez May 16, 2020 14:55
--- NOTE | 2020-05-16 16:00 | NUR ---
NURSE NOTES: Family member daughter from [place], [place] upset re visiting issue.Told the security to hold since cost report clerk was on break,need to ask if visitation allowed for Covid + pt.
--- NOTE | 2020-05-16 17:48 | NUR ---
NURSE NOTES: Pt asleep no resp distress presented during the shift ,bilat soft wrist restraints continue.
--- NOTE | 2020-05-16 19:15 | NUR ---
NURSE NOTES: Received report from DAMIAN Payan. COVID positive 05/03 2E 05/11 4E to STD to ICU intubated. Pt asleep and open eyes to name. ETT 7.5/20cm: Vent AC 14, TV 500, FiO2 30% Peep 5 Pt had black loose BM x 3 today. Rectal tube did't catch loose BM well. Weaning failed x 3 so far. Restrain noted bilaterally wrist (Started 05/16 0000) Skin: See assessment (inner ischial skin tear). Safety measures observed and no acute distress noted. Will continue to monitor.
--- NOTE | 2020-05-16 19:24 | NUR ---
NURSE HAND-OFF REPORT: Latest Vital Signs: Temperature 98.9 , Pulse 104 , B/P 108 /53 , Respiratory Rate 14 , O2 SAT 100 , Mechanical Ventilator, O2 Flow Rate 4.0 . Vital Sign Comment: stable EKG Rhythm: Sinus Tachycardia Rhythm change?: N MD Notified?: N Response: No New Orders Received Latest Lechuga Fall Score: 50 Fall Risk: High Risk Safety Measures: Call light Within Reach, Bed Alarm Zone 1, Side Rails Side Rails x3, Bed position Low and Locked. Fall Precautions: Yellow Socks Door Sign Patient Fall Education Report given to Gracie Braden RN..
--- NOTE | 2020-05-16 22:00 | NUR ---
NURSE NOTES: PM meds provided. Repositioned and oral care provided Afebrile and VSS. Pt's granddaughter stopped by. Safety measures observed and no acute distress noted. Will continue to monitor.
[2020-05-17] VITALS (25 sets, daily range): BP systolic 88–117; BP diastolic 46–65
--- NOTE | 2020-05-17 | NUR ---
NURSE NOTES: No change. Afebrile and VSS. Safety measures observed and no acute distress noted. Will continue to monitor.
--- NOTE | 2020-05-17 01:16 | Cardiology Progress Note ---
Subjective DATE OF SERVICE: May 16, 2020 Condition remains critical; patient remains on [facility] ventilation. Monitor: AFib with episodes of RVR and nonsustained VTach. Lactic acidosis resolved BP has dropped as well with deterioration of acid-base status. Episodes of tachyarrhythmias noted. CXR (05/16) reviewed: bilateral patchy infiltrates Objective Last 24 Hour Vital Signs Date Time Temp Pulse Resp B/P (MAP) Pulse Ox O2 Delivery O2 Flow Rate FiO2 05/17/20 00:00 Mechanical Ventilator Mechanical Ventilator 05/16/20 23:19 104 19 30 05/16/20 20:00 Mechanical Ventilator Mechanical Ventilator 05/16/20 20:00 105 96/48 (64) 100 05/16/20 19:30 118 14 30 05/16/20 19:00 105 101/49 (66) 100 05/16/20 18:30 104 14 108/53 (71) 100 05/16/20 18:00 110 14 88/57 (67) 99 05/16/20 17:00 106 14 94/53 (67) 100 05/16/20 16:19 30 05/16/20 16:00 107 05/16/20 16:00 98.9 109 14 100/47 (64) 100 05/16/20 16:00 Mechanical Ventilator Mechanical Ventilator 05/16/20 15:10 111 15 30 05/16/20 15:00 109 14 99/44 (62) 100 05/16/20 14:02 106 14 100/54 (69) 100 05/16/20 13:05 106 101/52 05/16/20 13:00 115 14 97/50 (66) 100 05/16/20 12:00 103 05/16/20 12:00 30 05/16/20 12:00 98.5 99 18 93/47 (62) 100 05/16/20 12:00 Mechanical Ventilator Mechanical Ventilator 05/16/20 11:15 106 15 30 05/16/20 11:00 105 16 90/51 (64) 100 05/16/20 10:00 109 15 112/58 (76) 100 05/16/20 09:00 112 15 107/59 (75) 100 05/16/20 08:00 100 05/16/20 08:00 Mechanical Ventilator Mechanical Ventilator 05/16/20 08:00 98.9 108 15 105/51 (69) 100 05/16/20 08:00 30 05/16/20 07:28 102 14 30 05/16/20 07:00 106 16 105/68 (80) 100 05/16/20 06:00 117 21 100/52 (68) 100 05/16/20 06:00 100/52 05/16/20 05:00 106 17 108/57 (74) 100 05/16/20 04:00 30 05/16/20 04:00 109 05/16/20 04:00 109 15 98/49 (65) 05/16/20 04:00 Mechanical Ventilator Mechanical Ventilator 05/16/20 03:17 103 14 30 05/16/20 03:00 110 14 102/50 (67) 100 05/16/20 02:00 109 14 102/48 (66) 100 ROS: unchanged from my eval of 05/03/20 HEENT: Orally intubated, Mechanically Ventilated, Thin secretions ET Tube LUNGS: no accessory muscle use, expiratory wheezing, diminished breath sounds CARDIAC: normal S1 and S2, no murmur, irregularly irregular ABDOMEN: normal bowel sounds, non tender, soft, no organomegaly EXTREMITIES: no calf tenderness, +1 edema Assessment/Plan Assessment/Plan Acute on chronic respiratory acidosis Acute respiratory failure Shock LE edema due to severe pulmonary hypertension and right heart strain COPD exacerb with active bronchospasm Lactic acidosis COVID 19 PNA Acute on chr renal failure - now with hyperkalemia Chronic systolic/diastolic CHF Pulmonary fibrosis with chronic hypoxia Paroxysmal AFib with RVR Hx Multifocal atrial arrhythmias Pulmonary HTN - severe Hx NSVTach Acute myocardial ischemia Vent support with on-going weaning efforts Hold diltiazem for low BP, but titrate for optimal rate control Steroids per pulmonary Inhaled bronchodilators IVF adjusted Reassess for diuresis; not presently indicated Full anticoagulation for cardioembolic prophyl Isolation Anti-viral rx per Simone Shirley MD May 17, 2020 01:16
--- NOTE | 2020-05-17 02:00 | NUR ---
NURSE NOTES: AM care provided Picture taken Repositioned and oral care provided. Afebrile and VSS. Rectal tube and mueller, CDI. IV site CDI. Safety measures observed and no acute distress noted. Will continue to monitor.
--- NOTE | 2020-05-17 04:00 | NUR ---
NURSE NOTES: Large amount of loose stool noted. Changed soiled gowns, linens, and slider. Repositioned and oral care provided. Safety measures observed and no acute distress noted. Will continue to monitor.
--- NOTE | 2020-05-17 06:00 | NUR ---
NURSE NOTES: Pt remains asleep and open eyes to name. ETT 7.5/20cm: Vent AC 14, TV 500, FiO2 30% Peep Restrain remains bilaterally wrist Afebrile and VSS. Safety measures observed and no acute distress noted. Will continue to monitor.
[2020-05-17] MEDS: dilTIAZem HCl 60mg tab ORAL SCH ×3 (06:48→21:35)
[2020-05-17 06:56] LABS: CALCIUM 8.6 MG/DL (8.5-10.1); CREATININE 3.2 MG/DL (0.55-1.30)
--- NOTE | 2020-05-17 07:43 | NUR ---
NURSE NOTES: Report received from Gracie Braden RN. Pt awake from her sleep, easily arousable. Pt nods head to questions asked and follows simple commands. Pt is orally intubated, ETT 7.5,lip line 20 cm, AC 14, TV 500, FIO2 30%, PEEP 5. No signs of pain or discomfort. Pt received and maintained on bilat soft wrist restraints for safety. OGT in place per auscultation with running tube feeds Nepro at 35ml/hr, no residual noted. [place] cath draining yellow urine to urometer. PIV LFA #20g intact. Bed locked and in lowest position with call light within reach ,will continue with plan of care.
--- NOTE | 2020-05-17 07:45 | NUR ---
HAND-OFF: Report given to DAMIAN Tobar. Endorsed POC.
--- NOTE | 2020-05-17 07:50 | NUR ---
RESPIRATORY NOTES PT placed on SBT - CPAP 5, PS 8, FiO2 30% PT unable to generate adequate tidal volumes - <150 Ubarby MCCRACKEN advised to increase PS to 12. PT then placed on CPAP 5, PS 12, FiO2 30% However, PT was still unable to generate adequate tidal volumes - <175. PT then placed back onto previous vent settings. DAMIAN Tobar aware. Will continue to monitor.
--- NOTE | 2020-05-17 07:56 | NUR ---
NURSE NOTES: Dr Linn at bedside assessing pt. Updated him on pt's current condition. RT, John, attempted to wean this morning on PS 8, CPAP 5; however after 2 minutes, pt's TV were no greater than 150. RT tried again with PS 12, and vent was reading similar, with TV of only 175. Dr Linn aware of weaning attempts and made him aware of pt's potassium of 3.0.
--- NOTE | 2020-05-17 07:59 | General Progress Note ---
Subjective ROS Limited/Unobtainable: No Constitutional: Reports: malaise, weakness HEENT: Reports: no symptoms Cardiovascular: Reports: no symptoms Respiratory: Reports: no symptoms Gastrointestinal/Abdominal: Reports: diarrhea Genitourinary: Reports: no symptoms Neurologic/Psychiatric: Reports: anxiety, pre-existing deficit Endocrine: Reports: no symptoms Hematologic/Lymphatic: Reports: anemia Allergies: Coded Allergies: CIPROFLOXACIN (Verified Allergy, Unknown, 09/27/17) All Systems: reviewed and negative except above Subjective no events. not tolerating wean. +diarrhea. Renal fxn improving. Cxr with persistent infiltrates but improving. no fevers. alert. wants restraints removed. Objective Last 24 Hour Vital Signs Date Time Temp Pulse Resp B/P (MAP) Pulse Ox O2 Delivery O2 Flow Rate FiO2 05/17/20 07:30 119 14 111/51 (71) 100 05/17/20 07:00 120 15 112/53 (72) 100 05/17/20 06:48 116/59 05/17/20 06:00 98.9 119 14 117/56 (76) 100 05/17/20 05:00 112 17 95/56 (69) 100 05/17/20 04:00 30 05/17/20 04:00 108 18 90/47 (61) 100 05/17/20 04:00 Mechanical Ventilator Mechanical Ventilator 05/17/20 04:00 108 05/17/20 03:27 123 17 30 05/17/20 03:00 105 14 97/57 (70) 100 05/17/20 02:00 112 15 100/46 (64) 100 05/17/20 01:00 113 14 97/53 (68) 100 05/17/20 00:00 30 05/17/20 00:00 114 05/17/20 00:00 98.7 114 111/47 (68) 100 05/17/20 00:00 Mechanical Ventilator Mechanical Ventilator 05/16/20 23:19 104 19 30 05/16/20 23:00 106 102/59 (73) 100 05/16/20 22:00 107/49 05/16/20 22:00 108 107/49 (68) 100 05/16/20 21:00 111 101/51 (68) 100 05/16/20 20:00 Mechanical Ventilator Mechanical Ventilator 05/16/20 20:00 105 96/48 (64) 100 05/16/20 19:30 118 14 30 05/16/20 19:00 105 101/49 (66) 100 05/16/20 18:30 104 14 108/53 (71) 100 05/16/20 18:00 110 14 88/57 (67) 99 05/16/20 17:00 106 14 94/53 (67) 100 05/16/20 16:19 30 05/16/20 16:00 107 05/16/20 16:00 98.9 109 14 100/47 (64) 100 05/16/20 16:00 Mechanical Ventilator Mechanical Ventilator 05/16/20 15:10 111 15 30 05/16/20 15:00 109 14 99/44 (62) 100 05/16/20 14:02 106 14 100/54 (69) 100 05/16/20 13:05 106 101/52 05/16/20 13:00 115 14 97/50 (66) 100 05/16/20 12:00 103 05/16/20 12:00 30 05/16/20 12:00 98.5 99 18 93/47 (62) 100 05/16/20 12:00 Mechanical Ventilator Mechanical Ventilator 05/16/20 11:15 106 15 30 05/16/20 11:00 105 16 90/51 (64) 100 05/16/20 10:00 109 15 112/58 (76) 100 05/16/20 09:00 112 15 107/59 (75) 100 05/16/20 08:00 100 05/16/20 08:00 Mechanical Ventilator Mechanical Ventilator 05/16/20 08:00 98.9 108 15 105/51 (69) 100 05/16/20 08:00 30 Intake and Output 05/16/20 05/17/20 19:00 07:00 Intake Total 855 ml 385 ml Output Total 760 ml 390 ml Balance 95 ml -5 ml Free Water 100 ml Tube Feeding 455 ml 385 ml Other 300 ml Output Urine Total 760 ml 390 ml # Bowel Movements 2 Laboratory Tests 05/17/20 05:30: Sodium Level 144, Potassium Level 3.0L, Chloride Level 107, Carbon Dioxide Level 27, Anion Gap 10, Blood Urea Nitrogen 106H, Creatinine 3.2H, Estimat Glomerular Filtration Rate 16.8, Glucose Level 236H, Calcium Level 8.6 Height (Feet): 5 Height (Inches): 3.00 Weight (Pounds): 160 Objective General Appearance: WD/WN, no apparent distress, alert. orally intubated EENT: PERRL/EOMI Neck: non-tender, normal alignment, supple Cardiovascular: normal rate, regular rhythm Respiratory/Chest: chest wall non-tender, lungs clear, normal breath sounds, no respiratory distress, no accessory muscle use Abdomen: normal bowel sounds, non tender, soft, no organomegaly Edema: no edema noted Arm (L), no edema noted Arm (R) Neurologic: hypoid gear tester II-XII grossly normal, alert, oriented x 3, responsive Skin: normal pigmentation Lymphatic: normal anterior cervical (L), normal anterior cervical (R) Assessment/Plan Problem List: (1) Pulmonary fibrosis ICD Codes: J84.10 - Pulmonary fibrosis, unspecified SNOMED: 33058030 (2) History of asthma ICD Codes: Z87.09 - Personal history of other diseases of the respiratory system SNOMED: 528662004 (3) Asthma ICD Codes: J45.909 - Unspecified asthma, uncomplicated SNOMED: 364435616 (4) NSTEMI (non-ST elevated myocardial infarction) ICD Codes: I21.4 - Non-ST elevation (NSTEMI) myocardial infarction SNOMED: 459057208 (5) Elevated troponin ICD Codes: R79.89 - Other specified abnormal findings of blood chemistry SNOMED: 764307083, 236731528, 877245542 (6) COPD (chronic obstructive pulmonary disease) ICD Codes: J44.9 - Chronic obstructive pulmonary disease, unspecified SNOMED: 21949667 (7) Atrial fibrillation with RVR ICD Codes: I48.91 - Unspecified atrial fibrillation SNOMED: 921480756740021 (8) Community acquired pneumonia ICD Codes: J18.9 - Pneumonia, unspecified organism SNOMED: 057615016 Status: stable Assessment/Plan: cont current rx vent support resp rx and suctioning wean as able iv abx per ID steroids wean per pulm monitor cxr tube feeds stress ulcer prophylaxis monitor labs/renal fxn replace lytes check cdiff resp rx/mdi rate control with Bradford Yates MD May 17, 2020 07:59
[2020-05-17] MEDS: Solu-MEDROL 125mg Inj IVP SCH (08:12)
[2020-05-17] MEDS: Aspirin EC 81mg tab ORAL SCH (08:12)
[2020-05-17] MEDS: Eliquis 2.5mg tablet ORAL SCH ×2 (08:13→18:17)
[2020-05-17] MEDS: Meropenem 500 MG in NS 55 ML IVPB SCH ×2 (08:14→21:07)
--- NOTE | 2020-05-17 08:45 | NUR ---
NURSE NOTES: CDIFF collected and sent down to the lab. Pt is able to write down her needs as she is unable to communicate verbally d/t ETT.
--- NOTE | 2020-05-17 08:54 | Pulmonology Progress Note ---
Subjective ROS Limited/Unobtainable: Yes Constitutional: Denies: fever Gastrointestinal/Abdominal: Denies: nausea, vomiting, diarrhea Musculoskeletal: Denies: pain Allergies: Coded Allergies: CIPROFLOXACIN (Verified Allergy, Unknown, 09/27/17) All Systems: reviewed and negative except above Objective Last 24 Hour Vital Signs Date Time Temp Pulse Resp B/P (MAP) Pulse Ox O2 Delivery O2 Flow Rate FiO2 05/17/20 07:50 100 05/17/20 07:30 112 14 30 05/17/20 07:30 119 14 111/51 (71) 100 05/17/20 07:00 120 15 112/53 (72) 100 05/17/20 06:48 116/59 05/17/20 06:00 98.9 119 14 117/56 (76) 100 05/17/20 05:00 112 17 95/56 (69) 100 05/17/20 04:00 30 05/17/20 04:00 108 18 90/47 (61) 100 05/17/20 04:00 Mechanical Ventilator Mechanical Ventilator 05/17/20 04:00 108 05/17/20 03:27 123 17 30 05/17/20 03:00 105 14 97/57 (70) 100 05/17/20 02:00 112 15 100/46 (64) 100 05/17/20 01:00 113 14 97/53 (68) 100 05/17/20 00:00 30 05/17/20 00:00 114 05/17/20 00:00 98.7 114 111/47 (68) 100 05/17/20 00:00 Mechanical Ventilator Mechanical Ventilator 05/16/20 23:19 104 19 30 05/16/20 23:00 106 102/59 (73) 100 05/16/20 22:00 107/49 05/16/20 22:00 108 107/49 (68) 100 05/16/20 21:00 111 101/51 (68) 100 05/16/20 20:00 Mechanical Ventilator Mechanical Ventilator 05/16/20 20:00 105 96/48 (64) 100 05/16/20 19:30 118 14 30 05/16/20 19:00 105 101/49 (66) 100 05/16/20 18:30 104 14 108/53 (71) 100 05/16/20 18:00 110 14 88/57 (67) 99 05/16/20 17:00 106 14 94/53 (67) 100 05/16/20 16:19 30 05/16/20 16:00 107 05/16/20 16:00 98.9 109 14 100/47 (64) 100 05/16/20 16:00 Mechanical Ventilator Mechanical Ventilator 05/16/20 15:10 111 15 30 05/16/20 15:00 109 14 99/44 (62) 100 05/16/20 14:02 106 14 100/54 (69) 100 05/16/20 13:05 106 101/52 05/16/20 13:00 115 14 97/50 (66) 100 05/16/20 12:00 103 05/16/20 12:00 30 05/16/20 12:00 98.5 99 18 93/47 (62) 100 05/16/20 12:00 Mechanical Ventilator Mechanical Ventilator 05/16/20 11:15 106 15 30 05/16/20 11:00 105 16 90/51 (64) 100 05/16/20 10:00 109 15 112/58 (76) 100 05/16/20 09:00 112 15 107/59 (75) 100 Intake and Output 05/16/20 05/17/20 19:00 07:00 Intake Total 855 ml 420 ml Output Total 760 ml 450 ml Balance 95 ml -30 ml Free Water 100 ml Tube Feeding 455 ml 420 ml Other 300 ml Output Urine Total 760 ml 450 ml # Bowel Movements 2 Laboratory Tests 05/17/20 05:30: Sodium Level 144, Potassium Level 3.0L, Chloride Level 107, Carbon Dioxide Level 27, Anion Gap 10, Blood Urea Nitrogen 106H, Creatinine 3.2H, Estimat Glomerular Filtration Rate 16.8, Glucose Level 236H, Calcium Level 8.6 Current Medications Medications (Trade) Dose Ordered Sig/Ghislaine Route PRN Reason Start Time Stop Time Status Last Admin Dose Admin Acetaminophen (Tylenol) 500 mg Q4H PRN ORAL Mild Pain (Pain Scale 1-3) 05/11/20 20:00 06/02/20 19:59 05/13/20 08:37 Albuterol Sulfate (Proventil MDI) 2 puff Q4H PRN INH Shortness of Breath 05/11/20 20:00 08/01/20 11:59 05/13/20 10:30 Apixaban (Eliquis) 2.5 mg BID ORAL 05/12/20 09:00 08/01/20 17:59 05/17/20 08:13 Aspirin (Ecotrin) 81 mg DAILY ORAL 05/12/20 09:00 06/17/20 15:59 05/17/20 08:12 Diltiazem HCl (Cardizem Tab) 60 mg EVERY 8 HOURS ORAL 05/16/20 06:00 06/15/20 05:59 05/17/20 06:48 Meropenem 500 mg/ Sodium Chloride 55 ml @ 110 mls/hr Q12HR IVPB 05/15/20 13:00 05/20/20 12:59 05/17/20 08:14 Methylprednisolone Sodium Succinate (Solu-MEDROL) 60 mg DAILY IVP 05/12/20 09:00 08/06/20 08:59 05/17/20 08:12 Morphine Sulfate (Morphine Sulfate) 2 mg Q3H PRN IVP For Pain 05/11/20 22:30 05/18/20 22:29 Morphine Sulfate (Morphine Sulfate) 4 mg Q3H PRN IVP SEVERE PAIN 05/11/20 22:30 05/18/20 22:29 Pantoprazole (Protonix) 40 mg DAILY ORAL 05/12/20 09:00 06/02/20 15:59 05/17/20 08:12 Potassium Chloride (K-Dur) 40 meq ONCE ORAL 05/17/20 08:15 05/17/20 09:15 05/17/20 08:12 Salmeterol Xinafoate/ Fluticasone (Advair 100/50 Diskus) 1 puffs BIDRT INH 05/11/20 22:00 08/09/20 21:59 05/16/20 09:02 Assessment/Plan Assessment/Plan Pulmonary CCM Progress Note HPI Patient is a 80-year-old female history of Chronic Obstructive Pulmonary Disease/Asthma, Congestive Heart Failure, on maintenance Eliquis, admitted with Covid 19 Pneumonia, respiratory failure on mechanical ventilator, AB/Covid Mx per ID. Physical Exam Vital Signs Noted PE: Deferred Covid 19 Assessment/Plan Impression: COVID-19 Chronic obstructive pulmonary disease/Asthma Community acquired pneumonia Atrial fibrillation with RVR Elevated troponin Congestive heart Failure sinus tachycardia Hypoxemia Hypokalemia transaminitis with gallstones consider cholecystitis acute on chronic renal failure acute respiratory failure Plan ID noted and discussed/ cultures reviewed Vent support/try to wean as able daily wean oxygen - currently stable feeds per dietary IV therapy noted Bronchodilator therapy Eliquis and monitor HH Monitor labs/ renal follow up Covid 19 Isolation- repeat swab+ nutrition and NG feeds reviewed care and optimize position change surgical follow up noted monitor protein levels medications/laboratory data/nursing notes/ICU care reviewed in detail note reviewed and edited care discussed with RN and RT ICU time spent >40 minutes CXR: ETT appropriate, persistent patchy consolidations bilaterally Laboratory Tests Noted Simone Anguiano MD May 17, 2020 08:54
--- NOTE | 2020-05-17 09:45 | NUR ---
NURSE NOTES: Pt cleaned and linens changed after having a large brown BM. Rectal tube not draining stool and was instead on the goldie. Rectal tube removed as pt's stool is too thick/jelly-like to pass through the tube.
[2020-05-17] MEDS: Wixela 100/50 Inhaler - 60 dose INH SCH ×2 (10:00→21:34)
--- NOTE | 2020-05-17 11:05 | NUR ---
NURSE NOTES: OGT removed and replaced d/t being clogged. Awaiting KUB
--- NOTE | 2020-05-17 12:50 | NUR ---
NURSE NOTES: KUB done to confirm placement of new OGT. Awaiting results. No distress noted. Pt appears to be comfortably laying in bed.
--- NOTE | 2020-05-17 13:09 | Diagnostic Imaging Report ---
EXAM: XR Abdomen, 1 View CLINICAL HISTORY: MALPOSITN TECHNIQUE: Frontal supine view of the abdomen/pelvis. COMPARISON: No relevant prior studies available. FINDINGS: Lower thorax: Interstitial lung disease. Gastrointestinal tract: Unremarkable. Bones/joints: No acute fracture. Tubes, lines and devices: Enteric tube in the stomach. Probable Riojas catheter. IMPRESSION: Enteric tube in the stomach.
--- NOTE | 2020-05-17 13:15 | Surgery Progress Note ---
Surgery Progress Note Subjective Additional Comments ill appearing on support Objective Last 24 Hour Vital Signs Date Time Temp Pulse Resp B/P (MAP) Pulse Ox O2 Delivery O2 Flow Rate FiO2 05/17/20 12:00 99.2 108 14 108/64 (79) 100 05/17/20 12:00 30 05/17/20 12:00 Mechanical Ventilator Mechanical Ventilator 05/17/20 11:15 108 14 30 05/17/20 11:00 116 17 106/65 (79) 100 05/17/20 10:00 105 14 104/63 (77) 100 05/17/20 09:00 121 16 103/55 (71) 100 05/17/20 08:00 99.5 114 14 96/48 (64) 100 05/17/20 08:00 Mechanical Ventilator Mechanical Ventilator 05/17/20 08:00 106 05/17/20 08:00 30 05/17/20 07:50 100 05/17/20 07:30 112 14 30 05/17/20 07:30 119 14 111/51 (71) 100 05/17/20 07:00 120 15 112/53 (72) 100 05/17/20 06:48 116/59 05/17/20 06:00 98.9 119 14 117/56 (76) 100 05/17/20 05:00 112 17 95/56 (69) 100 05/17/20 04:00 30 05/17/20 04:00 108 18 90/47 (61) 100 05/17/20 04:00 Mechanical Ventilator Mechanical Ventilator 05/17/20 04:00 108 05/17/20 03:27 123 17 30 05/17/20 03:00 105 14 97/57 (70) 100 05/17/20 02:00 112 15 100/46 (64) 100 05/17/20 01:00 113 14 97/53 (68) 100 05/17/20 00:00 30 05/17/20 00:00 114 05/17/20 00:00 98.7 114 111/47 (68) 100 05/17/20 00:00 Mechanical Ventilator Mechanical Ventilator 05/16/20 23:19 104 19 30 05/16/20 23:00 106 102/59 (73) 100 05/16/20 22:00 107/49 05/16/20 22:00 108 107/49 (68) 100 05/16/20 21:00 111 101/51 (68) 100 05/16/20 20:00 Mechanical Ventilator Mechanical Ventilator 05/16/20 20:00 105 96/48 (64) 100 05/16/20 19:30 118 14 30 05/16/20 19:00 105 101/49 (66) 100 05/16/20 18:30 104 14 108/53 (71) 100 05/16/20 18:00 110 14 88/57 (67) 99 05/16/20 17:00 106 14 94/53 (67) 100 05/16/20 16:19 30 05/16/20 16:00 107 05/16/20 16:00 98.9 109 14 100/47 (64) 100 05/16/20 16:00 Mechanical Ventilator Mechanical Ventilator 05/16/20 15:10 111 15 30 05/16/20 15:00 109 14 99/44 (62) 100 05/16/20 14:02 106 14 100/54 (69) 100 I&O Intake and Output 05/16/20 05/17/20 19:00 07:00 Intake Total 855 ml 420 ml Output Total 760 ml 450 ml Balance 95 ml -30 ml Free Water 100 ml Tube Feeding 455 ml 420 ml Other 300 ml Output Urine Total 760 ml 450 ml # Bowel Movements 2 Dressing: other Wound: other Cardiovascular: RSR Respiratory: decreased breath sounds Abdomen: soft, non-tender, present bowel sounds Extremities: no cyanosis Laboratory Tests Test 05/17/20 05:30 Sodium Level 144 MMOL/L (136-145) Potassium Level 3.0 MMOL/L (3.5-5.1) L Chloride Level 107 MMOL/L (98-107) Carbon Dioxide Level 27 MMOL/L (21-32) Anion Gap 10 mmol/L (5-15) Blood Urea Nitrogen 106 mg/dL (7-18) H Creatinine 3.2 MG/DL (0.55-1.30) H Estimat Glomerular Filtration Rate 16.8 mL/min (>60) Glucose Level 236 MG/DL (74-106) H Calcium Level 8.6 MG/DL (8.5-10.1) Plan Problems: (1) Elevated troponin (2) Atrial fibrillation with RVR (3) COVID-19 Assessment & Plan: ++ as per pulm and ID DAILY ESTIMATED NEEDS: Needs based on Critical Care, ARF/ 56kg abw 22-28 kcals/kg 9697-0867 total kcals 0.8-1.5 (increase w/ renal improvement) g protein/kg 45-84 g total protein 25-30 mL/kg 2602-9609 total fluid mLs NUTRITION DIAGNOSIS: * Altered nutrition related lab values r/t clinical status as evidenced by elev BUN(82), creat(3.8) trending up, critical ABG (low pH, elev CO2)-> now improved. * Swallowing difficulty R/T respiratory status as evidenced by s/p oral intubation, on OGT feeds. 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: CUSTOMER ENGAGEMENT SPECIALIST eval post extubation ENTERAL NUTRITION RECOMMENDATIONS: Nepro @ 35ml/hr x 24 hrs to provide 840ml, 1512kcal, 68g prot, 610ml free water * W/ worsening renal fxn, rec to continue Nepro * As tolerated, increase goal rate to 35ml/hr x 24 hrs to meet 100% est kcal/prot needs ADDITIONAL RECOMMENDATIONS: 1) Calibrated bedscale wt 2) Monitor renal fxn and lytes, need to continue Nepro Creat trending up 3) Rec niss w/ solumedrol (4) Community acquired pneumonia (5) COPD (chronic obstructive pulmonary disease) (6) Pulmonary fibrosis (7) Asthma (8) History of asthma (9) NSTEMI (non-ST elevated myocardial infarction) (10) Moderate to severe pulmonary hypertension (11) Asthma exacerbation (12) Abnormal LFTs Assessment & Plan: afebrile, HD stable labs noted lft's elevated US reviewed exam benign gb likely reactive from underlying pathology unlikely cholecystitis clinically fluid overload trend labs will monitor exam clinically covid + prognosis guarded cxr reviewed on abx worsening plan repeat US Gallbladder demonstrates wall thickening and wall edema, gallbladder wall measuring up to 6 mm thick. There are gallstones. Sonographic Escoto's sign is negative. Common bile duct measures 3 mm in diameter. No intrahepatic biliary ductal dilatation. Liver demonstrates normal echogenicity, no focal abnormality. Portal vein and hepatic veins are patent. Pancreas is unremarkable. Spleen is unremarkable. Left kidney measures 9.2 cm in length. Right kidney measures 9.9 cm length. Both kidneys demonstrate normal echogenicity. There is no hydronephrosis. Small cyst is seen in the right kidney. . Abdominal aorta was not imaged . There is trace ascites. There is a small right pleural effusion incidentally noted Impression: Small right pleural effusion. Trace ascites Cholelithiasis. Gallbladder wall thickening may be related to hemodynamic factors causing the pleural fluid and ascites, but could also indicate acute cholecystitis. Consider nuclear medicine hepatobiliary scan if there is high clinical suspicion. Negative for dilated bile ducts Small right renal cyst incidentally noted (13) Acute respiratory failure with hypoxia Quentin Sanchez May 17, 2020 13:15
--- NOTE | 2020-05-17 14:45 | NUR ---
NURSE NOTES: Pt turned and repositioned. Pt does not like to be suctioned and refuses to allow repairer typewriter to suction her mouth.
--- NOTE | 2020-05-17 15:08 | Infectious Diseases Prog Note ---
Assessment/Plan Assessment/Plan A 1. COVID 19 pneumonia Test positive: 05/03 -05/09 2. renal failure 3. increased LFT 4. COPD 5. CHF, Diastolic & systolic 6. asthma 7. Cholelithiasis r/o cholecystitis 8. Hypoxic hypercapnic respiratory failure 9. Pseudomonas pneumonia P 1. continue solumedrol & Meropenem 2. will follow up cultures Subjective ROS Limited/Unobtainable: Yes Respiratory: Reports: other - failed weaning Allergies: Coded Allergies: CIPROFLOXACIN (Verified Allergy, Unknown, 09/27/17) Objective Last 24 Hour Vital Signs Date Time Temp Pulse Resp B/P (MAP) Pulse Ox O2 Delivery O2 Flow Rate FiO2 05/17/20 14:09 105 107/52 05/17/20 14:00 108 16 98/50 (66) 100 05/17/20 13:00 104 14 96/56 (69) 100 05/17/20 12:00 106 05/17/20 12:00 99.2 108 14 108/64 (79) 100 05/17/20 12:00 30 05/17/20 12:00 Mechanical Ventilator Mechanical Ventilator 05/17/20 11:15 108 14 30 05/17/20 11:00 116 17 106/65 (79) 100 05/17/20 10:00 105 14 104/63 (77) 100 05/17/20 09:00 121 16 103/55 (71) 100 05/17/20 08:00 99.5 114 14 96/48 (64) 100 05/17/20 08:00 Mechanical Ventilator Mechanical Ventilator 05/17/20 08:00 106 05/17/20 08:00 30 05/17/20 07:50 100 05/17/20 07:30 112 14 30 05/17/20 07:30 119 14 111/51 (71) 100 05/17/20 07:00 120 15 112/53 (72) 100 05/17/20 06:48 116/59 05/17/20 06:00 98.9 119 14 117/56 (76) 100 05/17/20 05:00 112 17 95/56 (69) 100 05/17/20 04:00 30 05/17/20 04:00 108 18 90/47 (61) 100 05/17/20 04:00 Mechanical Ventilator Mechanical Ventilator 05/17/20 04:00 108 05/17/20 03:27 123 17 30 05/17/20 03:00 105 14 97/57 (70) 100 05/17/20 02:00 112 15 100/46 (64) 100 05/17/20 01:00 113 14 97/53 (68) 100 05/17/20 00:00 30 05/17/20 00:00 114 05/17/20 00:00 98.7 114 111/47 (68) 100 05/17/20 00:00 Mechanical Ventilator Mechanical Ventilator 05/16/20 23:19 104 19 30 05/16/20 23:00 106 102/59 (73) 100 05/16/20 22:00 107/49 05/16/20 22:00 108 107/49 (68) 100 05/16/20 21:00 111 101/51 (68) 100 05/16/20 20:00 Mechanical Ventilator Mechanical Ventilator 05/16/20 20:00 105 96/48 (64) 100 05/16/20 19:30 118 14 30 05/16/20 19:00 105 101/49 (66) 100 05/16/20 18:30 104 14 108/53 (71) 100 05/16/20 18:00 110 14 88/57 (67) 99 05/16/20 17:00 106 14 94/53 (67) 100 05/16/20 16:19 30 05/16/20 16:00 107 05/16/20 16:00 98.9 109 14 100/47 (64) 100 05/16/20 16:00 Mechanical Ventilator Mechanical Ventilator 05/16/20 15:10 111 15 30 Height (Feet): 5 Height (Inches): 3.00 Weight (Pounds): 160 HEENT: other - orally intubated Respiratory/Chest: other - on ventilator Cardiovascular: bradycardia Abdomen: soft, non tender, other - Orogastric tube Extremities: other - edema Neurologic/Psychiatric: unresponsiveness Laboratory Tests Test 05/17/20 05:30 Sodium Level 144 MMOL/L (136-145) Potassium Level 3.0 MMOL/L (3.5-5.1) L Chloride Level 107 MMOL/L (98-107) Carbon Dioxide Level 27 MMOL/L (21-32) Anion Gap 10 mmol/L (5-15) Blood Urea Nitrogen 106 mg/dL (7-18) H Creatinine 3.2 MG/DL (0.55-1.30) H Estimat Glomerular Filtration Rate 16.8 mL/min (>60) Glucose Level 236 MG/DL (74-106) H Calcium Level 8.6 MG/DL (8.5-10.1) Current Medications Medications (Trade) Dose Ordered Sig/Ghislaine Route PRN Reason Start Time Stop Time Status Last Admin Dose Admin Acetaminophen (Tylenol) 500 mg Q4H PRN ORAL Mild Pain (Pain Scale 1-3) 05/11/20 20:00 06/02/20 19:59 05/13/20 08:37 Albuterol Sulfate (Proventil MDI) 2 puff Q4H PRN INH Shortness of Breath 05/11/20 20:00 08/01/20 11:59 05/13/20 10:30 Apixaban (Eliquis) 2.5 mg BID ORAL 05/12/20 09:00 08/01/20 17:59 05/17/20 08:13 Aspirin (Ecotrin) 81 mg DAILY ORAL 05/12/20 09:00 06/17/20 15:59 05/17/20 08:12 Diltiazem HCl (Cardizem Tab) 60 mg EVERY 8 HOURS ORAL 05/16/20 06:00 06/15/20 05:59 05/17/20 14:09 Meropenem 500 mg/ Sodium Chloride 55 ml @ 110 mls/hr Q12HR IVPB 05/15/20 13:00 05/20/20 12:59 05/17/20 08:14 Methylprednisolone Sodium Succinate (Solu-MEDROL) 60 mg DAILY IVP 05/12/20 09:00 08/06/20 08:59 05/17/20 08:12 Morphine Sulfate (Morphine Sulfate) 2 mg Q3H PRN IVP For Pain 05/11/20 22:30 05/18/20 22:29 Morphine Sulfate (Morphine Sulfate) 4 mg Q3H PRN IVP SEVERE PAIN 05/11/20 22:30 05/18/20 22:29 Pantoprazole (Protonix) 40 mg DAILY ORAL 05/12/20 09:00 06/02/20 15:59 05/17/20 08:12 Salmeterol Xinafoate/ Fluticasone (Advair 100/50 Diskus) 1 puffs BIDRT INH 05/11/20 22:00 08/09/20 21:59 05/16/20 09:02 Freddy Woodson MD May 17, 2020 15:08
--- NOTE | 2020-05-17 16:15 | NUR ---
NURSE NOTES: Pt's son on the unit visiting with pt from outside of the door. Was able to bring a phone in the room so she could hear his voice, which pt was very happy about. No distress noted at this time. Pt calm, resting in bed.
--- NOTE | 2020-05-17 17:43 | NUR ---
NURSE NOTES: Pt fully cleaned and linens changed. Pt had a large brown BM. Pt turned and repositioned.
--- NOTE | 2020-05-17 19:11 | NUR ---
NURSE HAND-OFF REPORT: Latest Vital Signs: Temperature 98.6 , Pulse 105 , B/P 88 /57 , Respiratory Rate 14 , O2 SAT 100 , Mechanical Ventilator, FiO2 30%. Vital Sign Comment: EKG Rhythm: Atrial Fibrillation Rhythm change?: N MD Notified?: MD Response: Latest Lechuga Fall Score: 50 Fall Risk: High Risk Safety Measures: Call light Within Reach, Bed Alarm Zone 1, Side Rails Side Rails x3, Bed position Low and Locked. Fall Precautions: Yellow Socks Door Sign Patient Fall Education Report given to DAMIAN Garcia.
--- NOTE | 2020-05-17 20:00 | NUR ---
NURSE NOTES: RECEIVED REPORT FROM FLORECITA SALGADO PT ORALLY INTUBATED -VENT O2SAT 100 % NO RESP DISTRESS TOLERATING TUBE FEEDING NO RESIDUAL REPOSITION AND SUCTION FAMILY VISITING
--- NOTE | 2020-05-17 22:00 | NUR ---
NURSE NOTES: reposition and suction no acute resp distress noted
[2020-05-18] VITALS (25 sets, daily range): BP systolic 87–118; BP diastolic 49–88
--- NOTE | 2020-05-18 | NUR ---
NURSE NOTES: condition un change
--- NOTE | 2020-05-18 02:00 | NUR ---
NURSE NOTES: reposition and suction no acute resp distress noted
--- NOTE | 2020-05-18 02:13 | Cardiology Progress Note ---
Subjective DATE OF SERVICE: May 17, 2020 Condition remains critical; patient remains on [facility] ventilation. Monitor: AFib with episodes of RVR and nonsustained VTach. Lactic acidosis resolved BP remains tenuous, as well as acid-base status. Episodes of tachyarrhythmias noted. CXR (05/16) reviewed: bilateral patchy infiltrates Objective Last 24 Hour Vital Signs Date Time Temp Pulse Resp B/P (MAP) Pulse Ox O2 Delivery O2 Flow Rate FiO2 05/18/20 01:00 94 15 93/57 (69) 100 05/18/20 00:00 Mechanical Ventilator Mechanical Ventilator 05/18/20 00:00 98.5 97 14 87/55 (66) 100 05/17/20 23:00 103 15 101/50 (67) 100 05/17/20 22:45 101 14 30 05/17/20 22:00 106 20 104/49 (67) 100 05/17/20 22:00 104 05/17/20 21:35 102 102/61 05/17/20 21:00 103 14 99/51 (67) 100 05/17/20 20:00 102 05/17/20 20:00 98.2 102 14 88/47 (61) 100 05/17/20 20:00 30 05/17/20 20:00 Mechanical Ventilator Mechanical Ventilator 05/17/20 19:26 117 16 30 05/17/20 19:00 102 14 110/57 (74) 100 05/17/20 18:00 105 14 88/57 (67) 100 05/17/20 17:00 98.6 107 14 93/63 (73) 100 05/17/20 16:00 122 15 97/54 (68) 100 05/17/20 16:00 Mechanical Ventilator Mechanical Ventilator 05/17/20 16:00 30 05/17/20 16:00 109 05/17/20 15:15 113 15 30 05/17/20 15:00 111 14 94/56 (69) 100 05/17/20 14:09 105 107/52 05/17/20 14:00 108 16 98/50 (66) 100 05/17/20 13:00 104 14 96/56 (69) 100 05/17/20 12:00 106 05/17/20 12:00 99.2 108 14 108/64 (79) 100 9/20/20 12:00 30 05/17/20 12:00 Mechanical Ventilator Mechanical Ventilator 05/17/20 11:15 108 14 30 05/17/20 11:00 116 17 106/65 (79) 100 05/17/20 10:00 105 14 104/63 (77) 100 05/17/20 09:00 121 16 103/55 (71) 100 05/17/20 08:00 99.5 114 14 96/48 (64) 100 05/17/20 08:00 Mechanical Ventilator Mechanical Ventilator 05/17/20 08:00 106 05/17/20 08:00 30 05/17/20 07:50 100 05/17/20 07:30 112 14 30 05/17/20 07:30 119 14 111/51 (71) 100 05/17/20 07:00 120 15 112/53 (72) 100 05/17/20 06:48 116/59 05/17/20 06:00 98.9 119 14 117/56 (76) 100 05/17/20 05:00 112 17 95/56 (69) 100 05/17/20 04:00 30 05/17/20 04:00 108 18 90/47 (61) 100 05/17/20 04:00 Mechanical Ventilator Mechanical Ventilator 05/17/20 04:00 108 05/17/20 03:27 123 17 30 05/17/20 03:00 105 14 97/57 (70) 100 ROS: unchanged from my eval of 05/03/20 HEENT: Orally intubated, Mechanically Ventilated, Thin secretions ET Tube LUNGS: no accessory muscle use, expiratory wheezing, diminished breath sounds CARDIAC: normal S1 and S2, no murmur, irregularly irregular ABDOMEN: normal bowel sounds, non tender, soft, no organomegaly EXTREMITIES: no calf tenderness, +1 edema Laboratory Tests Test 05/17/20 05:30 Sodium Level 144 MMOL/L (136-145) Potassium Level 3.0 MMOL/L (3.5-5.1) L Chloride Level 107 MMOL/L (98-107) Carbon Dioxide Level 27 MMOL/L (21-32) Anion Gap 10 mmol/L (5-15) Blood Urea Nitrogen 106 mg/dL (7-18) H Creatinine 3.2 MG/DL (0.55-1.30) H Estimat Glomerular Filtration Rate 16.8 mL/min (>60) Glucose Level 236 MG/DL (74-106) H Calcium Level 8.6 MG/DL (8.5-10.1) Microbiology Date/Time Source Procedure Growth Status 05/17/20 08:30 Stool Clostridium difficile Toxin Assay - Final Complete Assessment/Plan Assessment/Plan Acute on chronic respiratory acidosis Acute respiratory failure Shock LE edema due to severe pulmonary hypertension and right heart strain COPD exacerb with active bronchospasm Lactic acidosis COVID 19 PNA Acute on chr renal failure - now with hyperkalemia Chronic systolic/diastolic CHF Pulmonary fibrosis with chronic hypoxia Paroxysmal AFib with RVR Hx Multifocal atrial arrhythmias Pulmonary HTN - severe Hx NSVTach Acute myocardial ischemia Vent support with on-going weaning efforts Hold diltiazem for low BP, but titrate for optimal rate control Steroids per pulmonary Inhaled bronchodilators IVF adjusted Reassess for diuresis; not presently indicated Full anticoagulation for cardioembolic prophyl Isolation Anti-viral rx per Simone Shirley MD May 18, 2020 02:13
--- NOTE | 2020-05-18 04:00 | NUR ---
NURSE NOTES: complete bed bath oral care and wound care reposition abd suction
[2020-05-18] MEDS: dilTIAZem HCl 60mg tab ORAL SCH ×3 (05:24→21:45)
--- NOTE | 2020-05-18 06:00 | NUR ---
NURSE NOTES: reposition and suction pt awake and alert tolerating tube feeding no residual
[2020-05-18 06:37] LABS: HEMATOCRIT 36.2 % (37.0-47.0); HEMOGLOBIN 11.8 G/DL (12.0-16.0); MEAN CORPUSCULAR VOLUME 85 FL (80-99); PLATELET COUNT 215 K/UL (150-450); RED BLOOD COUNT 4.24 M/UL (4.20-5.40); RED CELL DISTRIBUTION WIDTH 18.5 % (11.6-14.8); WHITE BLOOD COUNT 21.6 K/UL (4.8-10.8)
--- NOTE | 2020-05-18 07:09 | NUR ---
NURSE NOTES: Report received from DAMIAN Garcia. Pt is awake and alert. Pt nods head to questions asked and follows simple commands. Pt is orally intubated, ETT 7.5,lip line 20 cm, AC 14, TV 500, FIO2 30%, PEEP 5. No signs of pain or discomfort. Pt received and maintained on bilat soft wrist restraints for safety. OGT in place per auscultation - feeds (Nepro at 35ml/hr) currently on hold for weaning. Riojas cath draining yellow urine to urometer. PIV LFA #20g intact. Bed locked and in lowest position with call light within reach ,will continue with plan of care.
--- NOTE | 2020-05-18 07:30 | NUR ---
NURSE HAND-OFF REPORT: Latest Vital Signs: Temperature 97.8 , Pulse 95 , B/P 99 /55 , Respiratory Rate 14 , O2 SAT 100 , Mechanical Ventilator, O2 Flow Rate 4.0 . Vital Sign Comment: EKG Rhythm: Sinus Rhythm Rhythm change?: N Notified?: Y Ej Linn MD Response: No New Orders Received Latest Lechuga Fall Score: 50 Fall Risk: High Risk Safety Measures: Call light Within Reach, Bed Alarm Zone 1, Side Rails Side Rails x3, Bed position Low and Locked. Fall Precautions: Yellow Socks Door Sign Patient Fall Education Report given to ludmila anderson using sbar.
[2020-05-18 07:32] LABS: ALBUMIN 1.7 G/DL (3.4-5.0); ALBUMIN/GLOBULIN RATIO 0.5 (1.0-2.7); BILIRUBIN,TOTAL 0.6 MG/DL (0.2-1.0); CALCIUM 8.2 MG/DL (8.5-10.1); CREATININE 2.9 MG/DL (0.55-1.30); POTASSIUM 3.3 MMOL/L (3.5-5.1)
--- NOTE | 2020-05-18 07:32 | General Progress Note ---
Subjective ROS Limited/Unobtainable: No Constitutional: Reports: malaise, weakness HEENT: Reports: no symptoms Cardiovascular: Reports: no symptoms Respiratory: Reports: shortness of breath Gastrointestinal/Abdominal: Reports: difficulty swallowing Genitourinary: Reports: no symptoms Neurologic/Psychiatric: Reports: no symptoms Endocrine: Reports: no symptoms Hematologic/Lymphatic: Reports: anemia Allergies: Coded Allergies: CIPROFLOXACIN (Verified Allergy, Unknown, 09/27/17) All Systems: reviewed and negative except above Subjective no events. not tolerating wean. +diarrhea. cdiff neg. Renal fxn improving. Cxr with persistent infiltrates but improving. no fevers. bmp pending for today Objective Last 24 Hour Vital Signs Date Time Temp Pulse Resp B/P (MAP) Pulse Ox O2 Delivery O2 Flow Rate FiO2 05/18/20 07:00 95 14 99/55 (70) 100 05/18/20 06:00 99 14 99/54 (69) 100 05/18/20 05:24 101 105/63 05/18/20 05:00 100 14 101/60 (74) 100 05/18/20 04:00 Mechanical Ventilator Mechanical Ventilator 05/18/20 04:00 97.8 99 14 111/55 (73) 100 05/18/20 04:00 101 05/18/20 04:00 30 05/18/20 03:30 100 14 30 05/18/20 03:00 101 16 110/88 (95) 95 05/18/20 02:15 99 14 93/49 (64) 100 05/18/20 02:00 101 14 98/51 (67) 100 05/18/20 01:00 94 15 93/57 (69) 100 05/18/20 00:00 Mechanical Ventilator Mechanical Ventilator 05/18/20 00:00 30 05/18/20 00:00 98.5 97 14 87/55 (66) 100 05/18/20 00:00 102 05/17/20 23:00 103 15 101/50 (67) 100 05/17/20 22:45 101 14 30 05/17/20 22:00 106 20 104/49 (67) 100 05/17/20 22:00 104 05/17/20 21:35 102 102/61 05/17/20 21:00 103 14 99/51 (67) 100 05/17/20 20:00 102 05/17/20 20:00 98.2 102 14 88/47 (61) 100 05/17/20 20:00 30 05/17/20 20:00 Mechanical Ventilator Mechanical Ventilator 05/17/20 19:26 117 16 30 05/17/20 19:00 102 14 110/57 (74) 100 05/17/20 18:00 105 14 88/57 (67) 100 05/17/20 17:00 98.6 107 14 93/63 (73) 100 05/17/20 16:00 122 15 97/54 (68) 100 05/17/20 16:00 Mechanical Ventilator Mechanical Ventilator 05/17/20 16:00 30 05/17/20 16:00 109 05/17/20 15:15 113 15 30 05/17/20 15:00 111 14 94/56 (69) 100 05/17/20 14:09 105 107/52 05/17/20 14:00 108 16 98/50 (66) 100 05/17/20 13:00 104 14 96/56 (69) 100 05/17/20 12:00 106 05/17/20 12:00 99.2 108 14 108/64 (79) 100 05/17/20 12:00 30 05/17/20 12:00 Mechanical Ventilator Mechanical Ventilator 05/17/20 11:15 108 14 30 05/17/20 11:00 116 17 106/65 (79) 100 05/17/20 10:00 105 14 104/63 (77) 100 05/17/20 09:00 121 16 103/55 (71) 100 05/17/20 08:00 99.5 114 14 96/48 (64) 100 05/17/20 08:00 Mechanical Ventilator Mechanical Ventilator 05/17/20 08:00 106 05/17/20 08:00 30 05/17/20 07:50 100 Intake and Output 05/17/20 05/18/20 19:00 07:00 Intake Total 335 ml 605 ml Output Total 685 ml 590 ml Balance -350 ml 15 ml Free Water 130 ml IV Total 55 ml 55 ml Tube Feeding 280 ml 420 ml Output Urine Total 685 ml 590 ml # Bowel Movements 2 Laboratory Tests 05/18/20 06:08: White Blood Count 21.6H, Red Blood Count 4.24, Hemoglobin 11.8L, Hematocrit 36.2L, Mean Corpuscular Volume 85, Mean Corpuscular Hemoglobin 27.8, Mean Corpuscular Hemoglobin Concent 32.6, Red Cell Distribution Width 18.5H, Platelet Count 215, Mean Platelet Volume 6.2L, Neutrophils (%) (Auto) , Lymphocytes (%) (Auto) , Monocytes (%) (Auto) , Eosinophils (%) (Auto) , Basophils (%) (Auto) , Neutrophils % (Manual) [Pending], Lymphocytes % (Manual) [Pending], Platelet Estimate [Pending], Platelet Morphology [Pending], Sodium Level [Pending], Potassium Level [Pending], Chloride Level [Pending], Carbon Dioxide Level [Pending], Blood Urea Nitrogen [Pending], Creatinine [Pending], Estimat Glomerular Filtration Rate [Pending], Glucose Level [Pending], Calcium Level [Pending], Magnesium Level [Pending], Total Bilirubin [Pending], Aspartate Amino Transf (AST/SGOT) [Pending], Alanine Aminotransferase (ALT/SGPT) [Pending], Alkaline Phosphatase [Pending], Total Protein [Pending], Albumin [Pending], Globulin [Pending] Height (Feet): 5 Height (Inches): 3.00 Weight (Pounds): 160 Objective General Appearance: WD/WN, no apparent distress, alert. orally intubated EENT: PERRL/EOMI Neck: non-tender, normal alignment, supple Cardiovascular: normal rate, regular rhythm Respiratory/Chest: chest wall non-tender, lungs clear, normal breath sounds, no respiratory distress, no accessory muscle use Abdomen: normal bowel sounds, non tender, soft, no organomegaly Edema: no edema noted Arm (L), no edema noted Arm (R) Neurologic: statement processor II-XII grossly normal, alert, oriented x 3, responsive Skin: normal pigmentation Lymphatic: normal anterior cervical (L), normal anterior cervical (R) Assessment/Plan Problem List: (1) Pulmonary fibrosis ICD Codes: J84.10 - Pulmonary fibrosis, unspecified SNOMED: 26026425 (2) History of asthma ICD Codes: Z87.09 - Personal history of other diseases of the respiratory system SNOMED: 960791553 (3) Asthma ICD Codes: J45.909 - Unspecified asthma, uncomplicated SNOMED: 656038374 (4) NSTEMI (non-ST elevated myocardial infarction) ICD Codes: I21.4 - Non-ST elevation (NSTEMI) myocardial infarction SNOMED: 241364105 (5) Elevated troponin ICD Codes: R79.89 - Other specified abnormal findings of blood chemistry SNOMED: 923030472, 443720909, 148755261 (6) COPD (chronic obstructive pulmonary disease) ICD Codes: J44.9 - Chronic obstructive pulmonary disease, unspecified SNOMED: 15816349 (7) Atrial fibrillation with RVR ICD Codes: I48.91 - Unspecified atrial fibrillation SNOMED: 001960218490697 (8) Community acquired pneumonia ICD Codes: J18.9 - Pneumonia, unspecified organism SNOMED: 248897866 Status: stable Assessment/Plan: cont current rx vent support resp rx and suctioning wean as able iv abx per ID monitor elevated wbc- ?due to steroids steroids per pulm monitor cxr tube feeds stress ulcer prophylaxis monitor labs/renal fxn replace lytes resp rx/i Bradford Linn MD May 18, 2020 07:32
--- NOTE | 2020-05-18 07:36 | NUR ---
NURSE NOTES: Dr Linn at bedside assessing pt. Updated him on pt's current condition. New orders received and acknowledged.
[2020-05-18] MEDS: Aspirin EC 81mg tab ORAL SCH (08:11)
[2020-05-18] MEDS: Solu-MEDROL 125mg Inj IVP SCH (08:11)
[2020-05-18] MEDS: Meropenem 500 MG in NS 55 ML IVPB SCH ×2 (08:12→20:45)
[2020-05-18] MEDS: Eliquis 2.5mg tablet ORAL SCH ×2 (08:12→17:21)
--- NOTE | 2020-05-18 08:15 | Pulmonology Progress Note ---
Subjective ROS Limited/Unobtainable: Yes Constitutional: Denies: fever Gastrointestinal/Abdominal: Denies: nausea, vomiting, diarrhea Musculoskeletal: Denies: pain Allergies: Coded Allergies: CIPROFLOXACIN (Verified Allergy, Unknown, 09/27/17) All Systems: reviewed and negative except above Subjective on vent- still not weaning comfortable sedated update daughter ICU care reviewed over the weekend Objective Last 24 Hour Vital Signs Date Time Temp Pulse Resp B/P (MAP) Pulse Ox O2 Delivery O2 Flow Rate FiO2 05/18/20 07:00 95 14 99/55 (70) 100 05/18/20 06:00 99 14 99/54 (69) 100 05/18/20 05:24 101 105/63 05/18/20 05:00 100 14 101/60 (74) 100 05/18/20 04:00 Mechanical Ventilator Mechanical Ventilator 05/18/20 04:00 97.8 99 14 111/55 (73) 100 05/18/20 04:00 101 05/18/20 04:00 30 05/18/20 03:30 100 14 30 05/18/20 03:00 101 16 110/88 (95) 95 05/18/20 02:15 99 14 93/49 (64) 100 05/18/20 02:00 101 14 98/51 (67) 100 05/18/20 01:00 94 15 93/57 (69) 100 05/18/20 00:00 Mechanical Ventilator Mechanical Ventilator 05/18/20 00:00 30 05/18/20 00:00 98.5 97 14 87/55 (66) 100 05/18/20 00:00 102 05/17/20 23:00 103 15 101/50 (67) 100 05/17/20 22:45 101 14 30 05/17/20 22:00 106 20 104/49 (67) 100 05/17/20 22:00 104 05/17/20 21:35 102 102/61 05/17/20 21:00 103 14 99/51 (67) 100 05/17/20 20:00 102 05/17/20 20:00 98.2 102 14 88/47 (61) 100 05/17/20 20:00 30 05/17/20 20:00 Mechanical Ventilator Mechanical Ventilator 05/17/20 19:26 117 16 30 05/17/20 19:00 102 14 110/57 (74) 100 05/17/20 18:00 105 14 88/57 (67) 100 05/17/20 17:00 98.6 107 14 93/63 (73) 100 05/17/20 16:00 122 15 97/54 (68) 100 05/17/20 16:00 Mechanical Ventilator Mechanical Ventilator 05/17/20 16:00 30 05/17/20 16:00 109 05/17/20 15:15 113 15 30 05/17/20 15:00 111 14 94/56 (69) 100 05/17/20 14:09 105 107/52 05/17/20 14:00 108 16 98/50 (66) 100 05/17/20 13:00 104 14 96/56 (69) 100 05/17/20 12:00 106 05/17/20 12:00 99.2 108 14 108/64 (79) 100 05/17/20 12:00 30 05/17/20 12:00 Mechanical Ventilator Mechanical Ventilator 05/17/20 11:15 108 14 30 05/17/20 11:00 116 17 106/65 (79) 100 05/17/20 10:00 105 14 104/63 (77) 100 05/17/20 09:00 121 16 103/55 (71) 100 Intake and Output 05/17/20 05/18/20 19:00 07:00 Intake Total 335 ml 605 ml Output Total 685 ml 590 ml Balance -350 ml 15 ml Free Water 130 ml IV Total 55 ml 55 ml Tube Feeding 280 ml 420 ml Output Urine Total 685 ml 590 ml # Bowel Movements 2 Objective deferred due to COVID Microbiology Date/Time Source Procedure Growth Status 05/17/20 08:30 Stool Clostridium difficile Toxin Assay - Final Complete Laboratory Tests 05/18/20 06:08: White Blood Count 21.6H, Red Blood Count 4.24, Hemoglobin 11.8L, Hematocrit 36.2L, Mean Corpuscular Volume 85, Mean Corpuscular Hemoglobin 27.8, Mean Derik uscular Hemoglobin Concent 32.6, Red Cell Distribution Width 18.5H, Platelet Count 215, Mean Platelet Volume 6.2L, Neutrophils (%) (Auto) , Lymphocytes (%) (Auto) , Monocytes (%) (Auto) , Eosinophils (%) (Auto) , Basophils (%) (Auto) , Neutrophils % (Manual) [Pending], Lymphocytes % (Manual) [Pending], Platelet Estimate [Pending], Platelet Morphology [Pending], Sodium Level 147H, Potassium Level 3.3L, Chloride Level 109H, Carbon Dioxide Level 24, Anion Gap 14, Blood Urea Nitrogen 103H, Creatinine 2.9H, Estimat Glomerular Filtration Rate 18.9, Glucose Level 245H, Calcium Level 8.2L, Magnesium Level 1.7L, Total Bilirubin 0.6, Aspartate Amino Transf (AST/SGOT) 84H, Alanine Aminotransferase (ALT/SGPT) 208H, Alkaline Phosphatase 188H, Total Protein 5.0L, Albumin 1.7L, Globulin 3.3, Albumin/Globulin Ratio 0.5L Current Medications Medications (Trade) Dose Ordered Sig/Ghislaine Route PRN Reason Start Time Stop Time Status Last Admin Dose Admin Acetaminophen (Tylenol) 500 mg Q4H PRN ORAL Mild Pain (Pain Scale 1-3) 05/11/20 20:00 06/02/20 19:59 05/13/20 08:37 Albuterol Sulfate (Proventil MDI) 2 puff Q4H PRN INH Shortness of Breath 05/11/20 20:00 08/01/20 11:59 05/13/20 10:30 Apixaban (Eliquis) 2.5 mg BID ORAL 05/12/20 09:00 08/01/20 17:59 05/17/20 18:17 Aspirin (Ecotrin) 81 mg DAILY ORAL 05/12/20 09:00 06/17/20 15:59 05/17/20 08:12 Diltiazem HCl (Cardizem Tab) 60 mg EVERY 8 HOURS ORAL 05/16/20 06:00 06/15/20 05:59 05/18/20 05:24 Meropenem 500 mg/ Sodium Chloride 55 ml @ 110 mls/hr Q12HR IVPB 05/15/20 13:00 05/20/20 12:59 05/17/20 21:07 Methylprednisolone Sodium Succinate (Solu-MEDROL) 60 mg DAILY IVP 05/12/20 09:00 08/06/20 08:59 05/17/20 08:12 Morphine Sulfate (Morphine Sulfate) 2 mg Q3H PRN IVP For Pain 05/11/20 22:30 05/18/20 22:29 Morphine Sulfate (Morphine Sulfate) 4 mg Q3H PRN IVP SEVERE PAIN 05/11/20 22:30 05/18/20 22:29 Pantoprazole (Protonix) 40 mg DAILY ORAL 05/12/20 09:00 06/02/20 15:59 05/17/20 08:12 Potassium Chloride (K-Dur) 40 meq ONCE ORAL 05/18/20 08:00 05/18/20 09:00 Salmeterol Xinafoate/ Fluticasone (Advair 100/50 Diskus) 1 puffs BIDRT INH 05/11/20 22:00 08/09/20 21:59 05/16/20 09:02 Assessment/Plan Assessment/Plan Impression: COVID-19 Chronic obstructive pulmonary disease/Asthma Community acquired pneumonia Atrial fibrillation with RVR Elevated troponin Congestive heart Failure sinus tachycardia Hypoxemia transaminitis with gallstones consider cholecystitis acute on chronic renal failure acute respiratory failure Plan ID noted Vent support/try to wean as able daily - orders written wean oxygen - low flow feeds per dietary and monitor residuals IV therapy noted Bronchodilator therapy Eliquis and monitor HH Monitor labs/ renal follow up Covid 19 Isolation- per ID nutrition and NG feeds reviewed care and optimize position change and monitor skin surgical follow up noted monitor protein levels and adjust medications/laboratory data/nursing notes/ICU care reviewed in detail note reviewed and edited care discussed with RN and RT ICU time spent >40 minutes Aaron Jefferson MD May 18, 2020 08:15
--- NOTE | 2020-05-18 09:08 | NUR ---
NURSE NOTES: Dr. Jefferson at bedside assessing pt. Updated him on pt's current condition. No new orders given
--- NOTE | 2020-05-18 09:24 | NUR ---
RESPIRATORY THERAPIST NOTES: Attempted to wean Adriana on PS +8 PEEP +5 FIO2 30%. Immediately the RSBI >200 and VT <150mL. Patient extremely weak and unable to take adequate breaths on her own. Placed back onto previous ACVC settings.
--- NOTE | 2020-05-18 09:25 | NUR ---
NURSE NOTES: Pt did not do well when RT attempted to wean. Pt placed back on AC mode.
--- NOTE | 2020-05-18 09:52 | Infectious Diseases Prog Note ---
Assessment/Plan Assessment/Plan A 1. COVID 19 pneumonia Test positive: 05/03 -05/09 2. renal failure 3. increased LFT 4. COPD 5. CHF, Diastolic & systolic 6. asthma 7. Cholelithiasis r/o cholecystitis 8. Hypoxic hypercapnic respiratory failure 9. Pseudomonas pneumonia 1`0. Leukocytosis, increasing P 1. continue solumedrol & Meropenem 2. will follow up CXR 3. Consider steroid tapering Subjective ROS Limited/Unobtainable: Yes Neurologic: Reports: confusion, other - on restraint Allergies: Coded Allergies: CIPROFLOXACIN (Verified Allergy, Unknown, 09/27/17) Objective Last 24 Hour Vital Signs Date Time Temp Pulse Resp B/P (MAP) Pulse Ox O2 Delivery O2 Flow Rate FiO2 05/18/20 09:23 100 05/18/20 09:00 104 14 99/57 (71) 100 05/18/20 08:00 Mechanical Ventilator Mechanical Ventilator 05/18/20 08:00 30 05/18/20 08:00 97.9 95 14 104/59 (74) 100 05/18/20 07:21 104 15 30 05/18/20 07:00 95 14 99/55 (70) 100 05/18/20 06:00 99 14 99/54 (69) 100 05/18/20 05:24 101 105/63 05/18/20 05:00 100 14 101/60 (74) 100 05/18/20 04:00 Mechanical Ventilator Mechanical Ventilator 05/18/20 04:00 97.8 99 14 111/55 (73) 100 05/18/20 04:00 101 05/18/20 04:00 30 05/18/20 03:30 100 14 30 05/18/20 03:00 101 16 110/88 (95) 95 05/18/20 02:15 99 14 93/49 (64) 100 05/18/20 02:00 101 14 98/51 (67) 100 05/18/20 01:00 94 15 93/57 (69) 100 05/18/20 00:00 Mechanical Ventilator Mechanical Ventilator 05/18/20 00:00 30 05/18/20 00:00 98.5 97 14 87/55 (66) 100 05/18/20 00:00 102 05/17/20 23:00 103 15 101/50 (67) 100 05/17/20 22:45 101 14 30 05/17/20 22:00 106 20 104/49 (67) 100 05/17/20 22:00 104 05/17/20 21:35 102 102/61 05/17/20 21:00 103 14 99/51 (67) 100 05/17/20 20:00 102 05/17/20 20:00 98.2 102 14 88/47 (61) 100 05/17/20 20:00 30 05/17/20 20:00 Mechanical Ventilator Mechanical Ventilator 05/17/20 19:26 117 16 30 05/17/20 19:00 102 14 110/57 (74) 100 05/17/20 18:00 105 14 88/57 (67) 100 05/17/20 17:00 98.6 107 14 93/63 (73) 100 05/17/20 16:00 122 15 97/54 (68) 100 05/17/20 16:00 Mechanical Ventilator Mechanical Ventilator 05/17/20 16:00 30 05/17/20 16:00 109 05/17/20 15:15 113 15 30 05/17/20 15:00 111 14 94/56 (69) 100 05/17/20 14:09 105 107/52 05/17/20 14:00 108 16 98/50 (66) 100 05/17/20 13:00 104 14 96/56 (69) 100 05/17/20 12:00 106 05/17/20 12:00 99.2 108 14 108/64 (79) 100 05/17/20 12:00 30 05/17/20 12:00 Mechanical Ventilator Mechanical Ventilator 05/17/20 11:15 108 14 30 05/17/20 11:00 116 17 106/65 (79) 100 05/17/20 10:00 105 14 104/63 (77) 100 Height (Feet): 5 Height (Inches): 3.00 Weight (Pounds): 160 HEENT: other - orally intubated Respiratory/Chest: other - on ventilator Cardiovascular: tachycardia Abdomen: soft, non tender, other - orogastric tube Extremities: no edema Neurologic/Psychiatric: other - sleeping Microbiology Date/Time Source Procedure Growth Status 05/17/20 08:30 Stool Clostridium difficile Toxin Assay - Final Complete Laboratory Tests Test 05/18/20 06:08 White Blood Count 21.6 K/UL (4.8-10.8) H Red Blood Count 4.24 M/UL (4.20-5.40) Hemoglobin 11.8 G/DL (12.0-16.0) L Hematocrit 36.2 % (37.0-47.0) L Mean Corpuscular Volume 85 FL (80-99) Mean Corpuscular Hemoglobin 27.8 PG (27.0-31.0) Mean Corpuscular Hemoglobin Concent 32.6 G/DL (32.0-36.0) Red Cell Distribution Width 18.5 % (11.6-14.8) H Platelet Count 215 K/UL (150-450) Mean Platelet Volume 6.2 FL (6.5-10.1) L Neutrophils (%) (Auto) % (45.0-75.0) Lymphocytes (%) (Auto) % (20.0-45.0) Monocytes (%) (Auto) % (1.0-10.0) Eosinophils (%) (Auto) % (0.0-3.0) Basophils (%) (Auto) % (0.0-2.0) Neutrophils % (Manual) Pending Lymphocytes % (Manual) Pending Platelet Estimate Pending Platelet Morphology Pending Sodium Level 147 MMOL/L (136-145) H Potassium Level 3.3 MMOL/L (3.5-5.1) L Chloride Level 109 MMOL/L (98-107) H Carbon Dioxide Level 24 MMOL/L (21-32) Anion Gap 14 mmol/L (5-15) Blood Urea Nitrogen 103 mg/dL (7-18) H Creatinine 2.9 MG/DL (0.55-1.30) H Estimat Glomerular Filtration Rate 18.9 mL/min (>60) Glucose Level 245 MG/DL (74-106) H Calcium Level 8.2 MG/DL (8.5-10.1) L Magnesium Level 1.7 MG/DL (1.8-2.4) L Total Bilirubin 0.6 MG/DL (0.2-1.0) Aspartate Amino Transf (AST/SGOT) 84 U/L (15-37) H Alanine Aminotransferase (ALT/SGPT) 208 U/L (12-78) H Alkaline Phosphatase 188 U/L (46-116) H Total Protein 5.0 G/DL (6.4-8.2) L Albumin 1.7 G/DL (3.4-5.0) L Globulin 3.3 g/dL Albumin/Globulin Ratio 0.5 (1.0-2.7) L Current Medications Medications (Trade) Dose Ordered Sig/Ghislaine Route PRN Reason Start Time Stop Time Status Last Admin Dose Admin Acetaminophen (Tylenol) 500 mg Q4H PRN ORAL Mild Pain (Pain Scale 1-3) 05/11/20 20:00 06/02/20 19:59 05/13/20 08:37 Albuterol Sulfate (Proventil MDI) 2 puff Q4H PRN INH Shortness of Breath 05/11/20 20:00 08/01/20 11:59 05/13/20 10:30 Apixaban (Eliquis) 2.5 mg BID ORAL 05/12/20 09:00 08/01/20 17:59 05/18/20 08:12 Aspirin (Ecotrin) 81 mg DAILY ORAL 05/12/20 09:00 06/17/20 15:59 05/18/20 08:11 Diltiazem HCl (Cardizem Tab) 60 mg EVERY 8 HOURS ORAL 05/16/20 06:00 06/15/20 05:59 05/18/20 05:24 Meropenem 500 mg/ Sodium Chloride 55 ml @ 110 mls/hr Q12HR IVPB 05/15/20 13:00 05/20/20 12:59 05/18/20 08:12 Methylprednisolone Sodium Succinate (Solu-MEDROL) 60 mg DAILY IVP 05/12/20 09:00 08/06/20 08:59 05/18/20 08:11 Morphine Sulfate (Morphine Sulfate) 2 mg Q3H PRN IVP For Pain 05/11/20 22:30 05/18/20 22:29 Morphine Sulfate (Morphine Sulfate) 4 mg Q3H PRN IVP SEVERE PAIN 05/11/20 22:30 05/18/20 22:29 Pantoprazole (Protonix) 40 mg DAILY ORAL 05/12/20 09:00 06/02/20 15:59 05/18/20 08:11 Salmeterol Xinafoate/ Fluticasone (Advair 100/50 Diskus) 1 puffs BIDRT INH 05/11/20 22:00 08/09/20 21:59 05/16/20 09:02 Freddy Woodson MD May 18, 2020 09:52
[2020-05-18] MEDS: Wixela 100/50 Inhaler - 60 dose INH SCH ×2 (10:00→21:47)
--- NOTE | 2020-05-18 10:04 | Surgery Progress Note ---
Surgery Progress Note Subjective Additional Comments afebrile tachy wbc 21k us reviewed kub noted Objective Last 24 Hour Vital Signs Date Time Temp Pulse Resp B/P (MAP) Pulse Ox O2 Delivery O2 Flow Rate FiO2 05/18/20 09:23 100 05/18/20 09:00 104 14 99/57 (71) 100 05/18/20 08:00 Mechanical Ventilator Mechanical Ventilator 05/18/20 08:00 30 05/18/20 08:00 97.9 95 14 104/59 (74) 100 05/18/20 07:21 104 15 30 05/18/20 07:00 95 14 99/55 (70) 100 05/18/20 06:00 99 14 99/54 (69) 100 05/18/20 05:24 101 105/63 05/18/20 05:00 100 14 101/60 (74) 100 05/18/20 04:00 Mechanical Ventilator Mechanical Ventilator 05/18/20 04:00 97.8 99 14 111/55 (73) 100 05/18/20 04:00 101 05/18/20 04:00 30 05/18/20 03:30 100 14 30 05/18/20 03:00 101 16 110/88 (95) 95 05/18/20 02:15 99 14 93/49 (64) 100 05/18/20 02:00 101 14 98/51 (67) 100 05/18/20 01:00 94 15 93/57 (69) 100 05/18/20 00:00 Mechanical Ventilator Mechanical Ventilator 05/18/20 00:00 30 05/18/20 00:00 98.5 97 14 87/55 (66) 100 05/18/20 00:00 102 05/17/20 23:00 103 15 101/50 (67) 100 05/17/20 22:45 101 14 30 05/17/20 22:00 106 20 104/49 (67) 100 05/17/20 22:00 104 05/17/20 21:35 102 102/61 05/17/20 21:00 103 14 99/51 (67) 100 05/17/20 20:00 102 05/17/20 20:00 98.2 102 14 88/47 (61) 100 05/17/20 20:00 30 05/17/20 20:00 Mechanical Ventilator Mechanical Ventilator 05/17/20 19:26 117 16 30 05/17/20 19:00 102 14 110/57 (74) 100 05/17/20 18:00 105 14 88/57 (67) 100 05/17/20 17:00 98.6 107 14 93/63 (73) 100 05/17/20 16:00 122 15 97/54 (68) 100 05/17/20 16:00 Mechanical Ventilator Mechanical Ventilator 05/17/20 16:00 30 05/17/20 16:00 109 05/17/20 15:15 113 15 30 05/17/20 15:00 111 14 94/56 (69) 100 05/17/20 14:09 105 107/52 05/17/20 14:00 108 16 98/50 (66) 100 05/17/20 13:00 104 14 96/56 (69) 100 05/17/20 12:00 106 05/17/20 12:00 99.2 108 14 108/64 (79) 100 05/17/20 12:00 30 05/17/20 12:00 Mechanical Ventilator Mechanical Ventilator 05/17/20 11:15 108 14 30 05/17/20 11:00 116 17 106/65 (79) 100 I&O Intake and Output 05/17/20 05/18/20 19:00 07:00 Intake Total 335 ml 605 ml Output Total 685 ml 590 ml Balance -350 ml 15 ml Free Water 130 ml IV Total 55 ml 55 ml Tube Feeding 280 ml 420 ml Output Urine Total 685 ml 590 ml # Bowel Movements 2 Dressing: other Wound: other Cardiovascular: RSR Respiratory: decreased breath sounds Abdomen: soft, non-tender, present bowel sounds Extremities: no edema, no tenderness Laboratory Tests Test 05/18/20 06:08 White Blood Count 21.6 K/UL (4.8-10.8) H Red Blood Count 4.24 M/UL (4.20-5.40) Hemoglobin 11.8 G/DL (12.0-16.0) L Hematocrit 36.2 % (37.0-47.0) L Mean Corpuscular Volume 85 FL (80-99) Mean Corpuscular Hemoglobin 27.8 PG (27.0-31.0) Mean Corpuscular Hemoglobin Concent 32.6 G/DL (32.0-36.0) Red Cell Distribution Width 18.5 % (11.6-14.8) H Platelet Count 215 K/UL (150-450) Mean Platelet Volume 6.2 FL (6.5-10.1) L Neutrophils (%) (Auto) % (45.0-75.0) Lymphocytes (%) (Auto) % (20.0-45.0) Monocytes (%) (Auto) % (1.0-10.0) Eosinophils (%) (Auto) % (0.0-3.0) Basophils (%) (Auto) % (0.0-2.0) Neutrophils % (Manual) Pending Lymphocytes % (Manual) Pending Platelet Estimate Pending Platelet Morphology Pending Sodium Level 147 MMOL/L (136-145) H Potassium Level 3.3 MMOL/L (3.5-5.1) L Chloride Level 109 MMOL/L (98-107) H Carbon Dioxide Level 24 MMOL/L (21-32) Anion Gap 14 mmol/L (5-15) Blood Urea Nitrogen 103 mg/dL (7-18) H Creatinine 2.9 MG/DL (0.55-1.30) H Estimat Glomerular Filtration Rate 18.9 mL/min (>60) Glucose Level 245 MG/DL (74-106) H Calcium Level 8.2 MG/DL (8.5-10.1) L Magnesium Level 1.7 MG/DL (1.8-2.4) L Total Bilirubin 0.6 MG/DL (0.2-1.0) Aspartate Amino Transf (AST/SGOT) 84 U/L (15-37) H Alanine Aminotransferase (ALT/SGPT) 208 U/L (12-78) H Alkaline Phosphatase 188 U/L (46-116) H Total Protein 5.0 G/DL (6.4-8.2) L Albumin 1.7 G/DL (3.4-5.0) L Globulin 3.3 g/dL Albumin/Globulin Ratio 0.5 (1.0-2.7) L Plan Problems: (1) Elevated troponin (2) Atrial fibrillation with RVR (3) COVID-19 Assessment & Plan: ++ as per pulm and ID DAILY ESTIMATED NEEDS: Needs based on Critical Care, ARF/ 56kg abw 22-28 kcals/kg 3842-7507 total kcals 0.8-1.5 (increase w/ renal improvement) g protein/kg 45-84 g total protein 25-30 mL/kg 6966-9599 total fluid mLs NUTRITION DIAGNOSIS: * Altered nutrition related lab values r/t clinical status as evidenced by elev BUN(82), creat(3.8) trending up, critical ABG (low pH, elev CO2)-> now improved. * Swallowing difficulty R/T respiratory status as evidenced by s/p oral intubation, on OGT feeds. 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: MANUFACTURING COORDINATOR eval post extubation ENTERAL NUTRITION RECOMMENDATIONS: Nepro @ 35ml/hr x 24 hrs to provide 840ml, 1512kcal, 68g prot, 610ml free water * W/ worsening renal fxn, rec to continue Nepro * As tolerated, increase goal rate to 35ml/hr x 24 hrs to meet 100% est kcal/prot needs ADDITIONAL RECOMMENDATIONS: 1) Calibrated bedscale wt 2) Monitor renal fxn and lytes, need to continue Nepro Creat trending up 3) Rec niss w/ solumedrol (4) Community acquired pneumonia (5) COPD (chronic obstructive pulmonary disease) (6) Pulmonary fibrosis (7) Asthma (8) History of asthma (9) NSTEMI (non-ST elevated myocardial infarction) (10) Moderate to severe pulmonary hypertension (11) Asthma exacerbation (12) Abnormal LFTs Assessment & Plan: afebrile, HD stable labs noted lft's elevated US reviewed exam benign gb likely reactive from underlying pathology unlikely cholecystitis clinically fluid overload trend labs will monitor exam clinically covid + prognosis guarded cxr reviewed on abx worsening plan repeat US - noted Gallbladder demonstrates wall thickening and wall edema, gallbladder wall measuring up to 6 mm thick. There are gallstones. Sonographic Escoto's sign is negative. Common bile duct measures 3 mm in diameter. No intrahepatic biliary ductal dilatation. Liver demonstrates normal echogenicity, no focal abnormality. Portal vein and hepatic veins are patent. Pancreas is unremarkable. Spleen is unremarkable. Left kidney measures 9.2 cm in length. Right kidney measures 9.9 cm length. Both kidneys demonstrate normal echogenicity. There is no hydronephrosis. Small cyst is seen in the right kidney. . Abdominal aorta was not imaged . T here is trace ascites. There is a small right pleural effusion incidentally noted Impression: Small right pleural effusion. Trace ascites Cholelithiasis. Gallbladder wall thickening may be related to hemodynamic factors causing the pleural fluid and ascites, but could also indicate acute cholecystitis. Consider nuclear medicine hepatobiliary scan if there is high clinical suspi cion. Negative for dilated bile ducts Small right renal cyst incidentally noted (13) Acute respiratory failure with hypoxia Quentin Sanchez May 18, 2020 10:03
--- NOTE | 2020-05-18 11:00 | NUR ---
NURSE NOTES: Pt's family on the unit visiting pt from outside the door. Pt is awake and alert. No distress noted at this time.
--- NOTE | 2020-05-18 12:30 | NUR ---
NURSE NOTES: Pt turned and reposition for comfort. Oral care done. Temp 98.1. Pt appears to be comfortable, resting in bed.
--- NOTE | 2020-05-18 14:00 | NUR ---
NURSE NOTES: Spoke to pt's daughter via telephone. Updated her on pt's current condition. Daughter reported that she will not be able to make it to visit today but she will come tomorrow.
--- NOTE | 2020-05-18 16:00 | NUR ---
NURSE NOTES: Pt turned and repositioned for comfort. Tube feeding and tubing changed.
--- NOTE | 2020-05-18 16:37 | NUR ---
CASE MANAGEMENT:REVIEW 05/18/20 SI;REINTUBATED 05/12/20 . ATRIAL FIBRILLATION W/RVR NSTEMI. COVID-19 + PNEUMONIA.RENAL FAILURE . LEUKOCYTOSIS ON SOLUMEDROL 98.1 102 14 98/54 100% MECHANICAL VENT FIO2 30% WBC 21.6 NA+147 K+3.3 BUN/CREAT 103/2.9 BG 245 CA+ 8.2 MG 1.7 AST/ALT 84/208 ALB 1.7 IS;IV MEROPENEM BID IV SOLU MEDROL QD 60mg ALBUTEROL MDI INH Q4HR/PRN CARDIZEM PO TID ELIQUIS PO BID 05/17 XRAY Abdomen 1v-Enteric tube in the stomach. 05/16 CHEST X-RAY- Endotracheal tube terminates in the region of the mid thoracic trachea. Enteric tube courses past the diaphragm and out of the [id number]. Improved aeration of the lungs. Persistent patchy opacities bilaterally, worst in the right upper lung and left mid and lower lung. Possible trace left pleural effusion. \: TRANSFERED TO ICU 05/11/20 TRANSFERRED FROM MED SURG TO RK 05/11/20 @ 0812 RK STATUS DCP;FROM HOME PLAN: TRACHEOSTOMY IF NO IMPROVEMENT
--- NOTE | 2020-05-18 18:00 | NUR ---
NURSE NOTES: Pt fully cleaned and linens changed. Pt had a large brown, blackish BM. Oral care done. Pt able to write down needs. No distress noted.
--- NOTE | 2020-05-18 19:05 | NUR ---
NURSE HAND-OFF REPORT: Latest Vital Signs: Temperature 98.6 , Pulse 110 , B/P 101 /58 , Respiratory Rate 15 , O2 SAT 100 , Mechanical Ventilator, FiO2 30% . Vital Sign Comment: EKG Rhythm: Sinus Tachycardia Rhythm change?: N MD Notified?: MD Response: Latest Lechuga Fall Score: 50 Fall Risk: High Risk Safety Measures: Call light Within Reach, Bed Alarm Zone 1, Side Rails Side Rails x3, Bed position Low and Locked. Fall Precautions: Yellow Socks Door Sign Patient Fall Education Report given to DAMIAN Ramirez.
--- NOTE | 2020-05-18 19:42 | NUR ---
NURSE NOTES: received report from ludmila rn pt awake and alert follows command orally intubated -vent o2sat 100% no acute resp distress noted suction and reposition iv infusing well site good on migel soft restraint nan complaint tolerating tube feeding no residual
--- NOTE | 2020-05-18 22:00 | NUR ---
NURSE NOTES: reposition and suction no acute resp distress
[2020-05-19] VITALS (28 sets, daily range): BP systolic 90–120; BP diastolic 50–95
--- NOTE | 2020-05-19 | NUR ---
NURSE NOTES: CONDITION UN CHANGE
--- NOTE | 2020-05-19 03:42 | Cardiology Progress Note ---
Subjective DATE OF SERVICE: May 18, 2020 Condition remains critical; patient remains on [facility] ventilation. Monitor: AFib with episodes of RVR and nonsustained VTach. Lactic acidosis resolved BP remains tenuous, as well as acid-base status. Episodes of tachyarrhythmias noted. CXR (05/16) reviewed: bilateral patchy infiltrates elevated WBC on steroids Objective Last 24 Hour Vital Signs Date Time Temp Pulse Resp B/P (MAP) Pulse Ox O2 Delivery O2 Flow Rate FiO2 05/19/20 03:00 108 14 109/57 (74) 100 05/19/20 02:49 106 14 30 05/19/20 02:00 107 14 110/66 (81) 100 05/19/20 01:15 () 05/19/20 01:00 108 14 97/57 (70) 100 05/19/20 00:00 30 05/19/20 00:00 98.6 112 14 109/50 (69) 100 05/19/20 00:00 106 05/19/20 00:00 Mechanical Ventilator Mechanical Ventilator 05/18/20 23:00 109 15 118/70 (86) 100 05/18/20 22:49 109 14 30 05/18/20 22:00 112 14 105/54 (71) 100 05/18/20 21:45 110 101/60 05/18/20 21:00 98.4 114 18 109/58 (75) 100 05/18/20 20:00 30 05/18/20 20:00 Mechanical Ventilator Mechanical Ventilator 05/18/20 20:00 113 15 108/53 (71) 100 05/18/20 20:00 110 05/18/20 19:15 107 15 30 05/18/20 19:00 110 15 101/58 (72) 100 05/18/20 18:00 107 14 106/59 (75) 100 05/18/20 17:00 102 14 103/60 (74) 100 05/18/20 16:00 98.6 103 14 101/54 (70) 100 05/18/20 16:00 30 05/18/20 16:00 108 05/18/20 16:00 Mechanical Ventilator Mechanical Ventilator 05/18/20 15:14 103 14 30 05/18/20 15:00 102 14 102/53 (69) 100 05/18/20 14:26 102 99/52 05/18/20 14:00 104 14 98/55 (69) 100 05/18/20 13:00 98 14 100/55 (70) 100 05/18/20 12:00 30 05/18/20 12:00 Mechanical Ventilator Mechanical Ventilator 05/18/20 12:00 102 05/18/20 12:00 98.1 102 14 98/54 (69) 100 05/18/20 11:24 102 14 30 05/18/20 11:00 102 14 98/53 (68) 100 05/18/20 10:00 99 14 97/56 (70) 100 05/18/20 09:23 100 05/18/20 09:00 104 14 99/57 (71) 100 05/18/20 08:00 95 05/18/20 08:00 Mechanical Ventilator Mechanical Ventilator 05/18/20 08:00 30 05/18/20 08:00 97.9 95 14 104/59 (74) 100 05/18/20 07:21 104 15 30 05/18/20 07:00 95 14 99/55 (70) 100 05/18/20 06:00 99 14 99/54 (69) 100 05/18/20 05:24 101 105/63 05/18/20 05:00 100 14 101/60 (74) 100 05/18/20 04:00 Mechanical Ventilator Mechanical Ventilator 05/18/20 04:00 97.8 99 14 111/55 (73) 100 05/18/20 04:00 101 05/18/20 04:00 30 ROS: unchanged from my eval of 05/03/20 HEENT: Orally intubated, Mechanically Ventilated, Thin secretions ET Tube LUNGS: no accessory muscle use, expiratory wheezing, diminished breath sounds CARDIAC: normal S1 and S2, no murmur, irregularly irregular ABDOMEN: normal bowel sounds, non tender, soft, no organomegaly EXTREMITIES: no calf tenderness, +1 edema Laboratory Tests Test 05/18/20 06:08 White Blood Count 21.6 K/UL (4.8-10.8) H Red Blood Count 4.24 M/UL (4.20-5.40) Hemoglobin 11.8 G/DL (12.0-16.0) L Hematocrit 36.2 % (37.0-47.0) L Mean Corpuscular Volume 85 FL (80-99) Mean Corpuscular Hemoglobin 27.8 PG (27.0-31.0) Mean Corpuscular Hemoglobin Concent 32.6 G/DL (32.0-36.0) Red Cell Distribution Width 18.5 % (11.6-14.8) H Platelet Count 215 K/UL (150-450) Mean Platelet Volume 6.2 FL (6.5-10.1) L Neutrophils (%) (Auto) % (45.0-75.0) Lymphocytes (%) (Auto) % (20.0-45.0) Monocytes (%) (Auto) % (1.0-10.0) Eosinophils (%) (Auto) % (0.0-3.0) Basophils (%) (Auto) % (0.0-2.0) Differential Total Cells Counted 100 Neutrophils % (Manual) 96 % (45-75) H Lymphocytes % (Manual) 2 % (20-45) L Monocytes % (Manual) 2 % (1-10) Eosinophils % (Manual) 0 % (0-3) Basophils % (Manual) 0 % (0-2) Band Neutrophils 0 % (0-8) Platelet Estimate Adequate Platelet Morphology Normal Hypochromasia 1+ Anisocytosis 1+ Sodium Level 147 MMOL/L (136-145) H Potassium Level 3.3 MMOL/L (3.5-5.1) L Chloride Level 109 MMOL/L (98-107) H Carbon Dioxide Level 24 MMOL/L (21-32) Anion Gap 14 mmol/L (5-15) Blood Urea Nitrogen 103 mg/dL (7-18) H Creatinine 2.9 MG/DL (0.55-1.30) H Estimat Glomerular Filtration Rate 18.9 mL/min (>60) Glucose Level 245 MG/DL (74-106) H Calcium Level 8.2 MG/DL (8.5-10.1) L Magnesium Level 1.7 MG/DL (1.8-2.4) L Total Bilirubin 0.6 MG/DL (0.2-1.0) Aspartate Amino Transf (AST/SGOT) 84 U/L (15-37) H Alanine Aminotransferase (ALT/SGPT) 208 U/L (12-78) H Alkaline Phosphatase 188 U/L (46-116) H Total Protein 5.0 G/DL (6.4-8.2) L Albumin 1.7 G/DL (3.4-5.0) L Globulin 3.3 g/dL Albumin/Globulin Ratio 0.5 (1.0-2.7) L Microbiology Date/Time Source Procedure Growth Status 05/17/20 08:30 Stool Clostridium difficile Toxin Assay - Final Complete Assessment/Plan Assessment/Plan Acute on chronic respiratory acidosis Acute respiratory failure Shock LE edema due to severe pulmonary hypertension and right heart strain COPD exacerb with active bronchospasm Lactic acidosis COVID 19 PNA Acute on chr renal failure - now with hyperkalemia Chronic systolic/diastolic CHF Pulmonary fibrosis with chronic hypoxia Paroxysmal AFib with RVR Hx Multifocal atrial arrhythmias Pulmonary HTN - severe Hx NSVTach Acute myocardial ischemia Vent support with on-going weaning efforts Hold diltiazem for low BP, but titrate for optimal rate control Steroids per pulmonary Inhaled bronchodilators IVF adjusted Reassess for diuresis; not presently indicated Full anticoagulation for cardioembolic prophyl Isolation Anti-viral rx per Simone Shirley MD May 19, 2020 03:42
[2020-05-19] MEDS: dilTIAZem HCl 60mg tab ORAL SCH ×3 (05:40→21:42)
[2020-05-19 05:48] LABS: HEMATOCRIT 35.5 % (37.0-47.0); HEMOGLOBIN 11.7 G/DL (12.0-16.0); MEAN CORPUSCULAR VOLUME 86 FL (80-99); PLATELET COUNT 213 K/UL (150-450); RED BLOOD COUNT 4.15 M/UL (4.20-5.40); RED CELL DISTRIBUTION WIDTH 18.5 % (11.6-14.8)
[2020-05-19 05:56] LABS: WHITE BLOOD COUNT 25.3 K/UL (4.8-10.8)
[2020-05-19 06:37] LABS: ALBUMIN 1.7 G/DL (3.4-5.0); ALBUMIN/GLOBULIN RATIO 0.5 (1.0-2.7); BILIRUBIN,TOTAL 0.6 MG/DL (0.2-1.0); CALCIUM 8.5 MG/DL (8.5-10.1); CREATININE 2.7 MG/DL (0.55-1.30); POTASSIUM 3.9 MMOL/L (3.5-5.1)
--- NOTE | 2020-05-19 06:48 | NUR ---
NURSE NOTES: Notified Dr Linn by RN Mario campos that WBC 25.3- spoke to Dr Linn, no orders given
[2020-05-19 07:18] LABS: APPEARANCE,URINE VERY CLOUDY; BILIRUBIN, URINE NEGATIVE (NEGATIVE); COLOR,URINE YELLOW; GLUCOSE, URINE (UA) NEGATIVE (NEGATIVE); KETONES,URINE NEGATIVE (NEGATIVE); LEUKOCYTE ESTERASE ,URINE 3+ (NEGATIVE); NITRITE,URINE NEGATIVE (NEGATIVE); PH,URINE 6 (4.5-8.0); PROTEIN,URINE 2+ (NEGATIVE); UROBILINOGEN,URINE NORMAL MG/DL (0.0-1.0)
--- NOTE | 2020-05-19 07:23 | NUR ---
NURSE HAND-OFF REPORT: Latest Vital Signs: Temperature 98.4 , Pulse 103 , B/P 96 /55 , Respiratory Rate 14 , O2 SAT 100 , Mechanical Ventilator, O2 Flow Rate 4.0 . Vital Sign Comment: EKG Rhythm: Sinus Tachycardia Rhythm change?: N Notified?: Y Ej Linn MD Response: No New Orders Received Latest Lechuga Fall Score: 50 Fall Risk: High Risk Safety Measures: Call light Within Reach, Bed Alarm Zone 1, Side Rails Side Rails x3, Bed position Low and Locked. Fall Precautions: Yellow Socks Door Sign Patient Fall Education Report given to denisse calixto using sbar.
--- NOTE | 2020-05-19 07:24 | NUR ---
NURSE NOTES: Report received from DAMIAN Garcia. Patient is sleeping in bed. Easily wakes up to voice and follow simple commands and answer for simple questions. Can be impulsive, trying to reach ETT at times. Will continue bilateral soft wrist restraints. ST on cardiac rn. ETT 7.5/20cm at lip line. AC 14, TV 500, FiO2 30%, P 5. O2 sat 100%. OGT in place and feeding held for weaning for now. Riojas in place draining to gravity. IV to left FA G20 patent and asymptomatic. Bed in lowest position. Side rails up x3. Will resume plan of care.
--- NOTE | 2020-05-19 08:08 | Pulmonology Progress Note ---
Subjective ROS Limited/Unobtainable: Yes Constitutional: Denies: fever Gastrointestinal/Abdominal: Denies: nausea, vomiting, diarrhea Musculoskeletal: Denies: pain Allergies: Coded Allergies: CIPROFLOXACIN (Verified Allergy, Unknown, 09/27/17) All Systems: reviewed and negative except above Subjective on vent- still not weaning well comfortable sedated tachycardic ICU care reviewed Objective Last 24 Hour Vital Signs Date Time Temp Pulse Resp B/P (MAP) Pulse Ox O2 Delivery O2 Flow Rate FiO2 05/19/20 07:19 106 14 30 05/19/20 06:00 103 14 96/55 (69) 100 05/19/20 05:40 108 97/51 05/19/20 05:00 106 14 95/57 (70) 100 05/19/20 04:00 98.4 105 24 120/95 (103) 99 05/19/20 04:00 103 05/19/20 04:00 Mechanical Ventilator Mechanical Ventilator 05/19/20 04:00 30 05/19/20 03:00 108 14 109/57 (74) 100 05/19/20 02:49 106 14 30 05/19/20 02:00 107 14 110/66 (81) 100 05/19/20 01:15 () 05/19/20 01:00 108 14 97/57 (70) 100 05/19/20 01:00 108 14 97/57 (70) 100 05/19/20 00:45 110 14 110/54 (72) 100 05/19/20 00:30 107 14 100/53 (69) 100 05/19/20 00:15 109 14 93/55 (68) 100 05/19/20 00:00 30 05/19/20 00:00 112 14 109/50 (69) 100 05/19/20 00:00 98.6 112 14 109/50 (69) 100 05/19/20 00:00 106 05/19/20 00:00 Mechanical Ventilator Mechanical Ventilator 05/18/20 23:00 109 15 118/70 (86) 100 05/18/20 22:49 109 14 30 05/18/20 22:00 112 14 105/54 (71) 100 05/18/20 21:45 110 101/60 05/18/20 21:00 98.4 114 18 109/58 (75) 100 05/18/20 20:00 30 05/18/20 20:00 Mechanical Ventilator Mechanical Ventilator 05/18/20 20:00 113 15 108/53 (71) 100 05/18/20 20:00 110 05/18/20 19:15 107 15 30 05/18/20 19:00 110 15 101/58 (72) 100 05/18/20 18:00 107 14 106/59 (75) 100 05/18/20 17:00 102 14 103/60 (74) 100 05/18/20 16:00 98.6 103 14 101/54 (70) 100 05/18/20 16:00 30 05/18/20 16:00 108 05/18/20 16:00 Mechanical Ventilator Mechanical Ventilator 05/18/20 15:14 103 14 30 05/18/20 15:00 102 14 102/53 (69) 100 05/18/20 14:26 102 99/52 05/18/20 14:00 104 14 98/55 (69) 100 05/18/20 13:00 98 14 100/55 (70) 100 05/18/20 12:00 30 05/18/20 12:00 Mechanical Ventilator Mechanical Ventilator 05/18/20 12:00 102 05/18/20 12:00 98.1 102 14 98/54 (69) 100 05/18/20 11:24 102 14 30 05/18/20 11:00 102 14 98/53 (68) 100 05/18/20 10:00 99 14 97/56 (70) 100 05/18/20 09:23 100 05/18/20 09:00 104 14 99/57 (71) 100 Intake and Output 05/18/20 05/19/20 19:00 07:00 Intake Total 685 ml 620 ml Output Total 570 ml 620 ml Balance 115 ml 0 ml Free Water 100 ml 50 ml IV Total 55 ml 255 ml Tube Feeding 350 ml 315 ml Other 180 ml Output Urine Total 570 ml 620 ml # Bowel Movements 2 3 Objective deferred due to COVID Microbiology Date/Time Source Procedure Growth Status 05/17/20 08:30 Stool Clostridium difficile Toxin Assay - Final Complete Laboratory Tests 05/19/20 04:50: White Blood Count 25.3*H, Red Blood Count 4.15L, Hemoglobin 11.7L, Hematocrit 35.5L, Mean Corpuscular Volume 86, Mean Corpuscular Hemoglobin 28.1, Mean Corpuscular Hemoglobin Concent 32.8, Red Cell Distribution Width 18.5H, Platelet Count 213, Mean Platelet Volume 6.0L, Neutrophils (%) (Auto) , Lymphocytes (%) (Auto) , Monocytes (%) (Auto) , Eosinophils (%) (Auto) , Basophils (%) (Auto) , Neutrophils % (Manual) [Pending], Lymphocytes % (Manual) [Pending], Platelet Estimate [Pending], Platelet Morphology [Pending], Sodium Level 147H, Potassium Level 3.9, Chloride Level 111H, Carbon Dioxide Level 24, Anion Gap 12, Blood Urea Nitrogen 109H, Creatinine 2.7H, Estimat Glomerular Filtration Rate 20.6, Glucose Level 254H, Calcium Level 8.5, Total Bilirubin 0.6, Aspartate Amino Transf (AST/SGOT) 85H, Alanine Aminotransferase (ALT/SGPT) 277H, Alkaline Phosphatase 199H, Total Protein 5.1L, Albumin 1.7L, Globulin 3.4, Albumin/Globulin Ratio 0.5L 05/19/20 07:01: Urine Color Yellow, Urine Appearance Very cloudy, Urine pH 6, Urine Specific Elmer 1.010, Urine Protein 2+H, Urine Glucose (UA) Negative, Urine Ketones Negative, Urine Blood 5+H, Urine Nitrite Negative, Urine Bilirubin Negative, Urine Urobilinogen Normal, Urine Leukocyte Esterase 3+H, Urine RBC 10-15H, Urine WBC 5-10H, Urine Squamous Epithelial Cells Few, Urine Bacteria Few, Urine Yeast ManyH Current Medications Medications (Trade) Dose Ordered Sig/Ghislaine Route PRN Reason Start Time Stop Time Status Last Admin Dose Admin Acetaminophen (Tylenol) 500 mg Q4H PRN ORAL Mild Pain (Pain Scale 1-3) 05/11/20 20:00 06/02/20 19:59 05/13/20 08:37 Albuterol Sulfate (Proventil MDI) 2 puff Q4H PRN INH Shortness of Breath 05/11/20 20:00 08/01/20 11:59 05/13/20 10:30 Apixaban (Eliquis) 2.5 mg BID ORAL 05/12/20 09:00 08/01/20 17:59 05/18/20 17:21 Aspirin (Ecotrin) 81 mg DAILY ORAL 05/12/20 09:00 06/17/20 15:59 05/18/20 08:11 Diltiazem HCl (Cardizem Tab) 60 mg EVERY 8 HOURS ORAL 05/16/20 06:00 06/15/20 05:59 05/19/20 05:40 Meropenem 500 mg/ Sodium Chloride 55 ml @ 110 mls/hr Q12HR IVPB 05/15/20 13:00 05/20/20 12:59 05/18/20 20:45 Methylprednisolone Sodium Succinate (Solu-MEDROL) 60 mg DAILY IVP 05/12/20 09:00 08/06/20 08:59 05/18/20 08:11 Pantoprazole (Protonix) 40 mg DAILY ORAL 05/12/20 09:00 06/02/20 15:59 05/18/20 08:11 Salmeterol Xinafoate/ Fluticasone (Advair 100/50 Diskus) 1 puffs BIDRT INH 05/11/20 22:00 08/09/20 21:59 05/16/20 09:02 Assessment/Plan Assessment/Plan Impression: COVID-19 Chronic obstructive pulmonary disease/Asthma Community acquired pneumonia Atrial fibrillation with RVR Elevated troponin Congestive heart Failure sinus tachycardia Hypoxemia transaminitis with gallstones consider cholecystitis acute on chronic renal failure acute respiratory failure Plan ID noted Vent support/try to wean as able daily - orders written wean oxygen - low flow feeds per dietary and monitor residuals IV therapy noted Bronchodilator therapy taper steroids Eliquis and monitor HH Monitor labs/ renal follow up - renal function still reduced Covid 19 Isolation- per ID nutrition and NG feeds reviewed care and optimize position change and monitor skin surgical follow up noted monitor protein levels and adjust medications/laboratory data/nursing notes/ICU care reviewed in detail note reviewed and edited care discussed with RN and RT ICU time spent >40 minutes Aaron Jefferson MD May 19, 2020 08:08
--- NOTE | 2020-05-19 08:27 | NUR ---
RD ASSESSMENT & RECOMMENDATIONS SEE CARE ACTIVITY FOR COMPLETE ASSESSMENT DAILY ESTIMATED NEEDS: Needs based on Critical Care, ARF/ 56kg abw 22-28 kcals/kg 8525-9238 total kcals 0.8-1.5 (increase w/ renal improvement) g protein/kg 45-84 g total protein 25-30 mL/kg 2114-7672 total fluid mLs NUTRITION DIAGNOSIS: * Altered nutrition related lab values r/t clinical status as evidenced by elev BUN(88->109), creat(2.0->4.0->3.7), low K (3.2), critical ABG (low pH, elev CO2)-> now improved. * Swallowing difficulty R/T respiratory status as evidenced by s/p oral intubation, on OGT feeds. CURRENT TF:Nepro @ 35ml/hr x 24 hrs PO DIET RECOMMENDATIONS: STORE FACILITY TECHNICIAN eval post extubation ENTERAL NUTRITION RECOMMENDATIONS: Nepro @ 35ml/hr x 24 hrs to provide 840ml, 1512kcal, 68g prot, 610ml free water * Continue current TF at this time: meets 100% est kcal/prot needs, creat 3.7 * HOB over 30 degrees/ water flush per MD With improving renal fxn rec TF change to Glucerna 1.5 @ 40ml/hr x 24 hrs to provide 960ml, 1440kcal, 72g prot ADDITIONAL RECOMMENDATIONS: 1) Calibrated bedscale wt 2) Monitor renal fxn and lytes, need to continue Nepro -> Creat 2.0-> 4.0-> 3.7-> 2.7 -> Rec TF change w/ consistently low lytes -> Check phos level 3) Rec niss w/ solumedrol (elev BGs 254 245 236) 4) Increase water flushes/ or IVF as able (elev NA and BUN trending up)
[2020-05-19] MEDS: Solu-MEDROL 40mg Inj IVP SCH (08:50)
[2020-05-19] MEDS: Aspirin EC 81mg tab ORAL SCH (08:50)
[2020-05-19] MEDS: Eliquis 2.5mg tablet ORAL SCH ×2 (08:51→17:26)
[2020-05-19] MEDS: Meropenem 500 MG in NS 55 ML IVPB SCH ×2 (08:51→20:54)
--- NOTE | 2020-05-19 09:13 | General Progress Note ---
Subjective ROS Limited/Unobtainable: Yes Constitutional: Reports: malaise, weakness HEENT: Reports: no symptoms Respiratory: Reports: cough, sputum Gastrointestinal/Abdominal: Reports: difficulty swallowing Genitourinary: Reports: no symptoms Neurologic/Psychiatric: Reports: pre-existing deficit Endocrine: Reports: no symptoms Hematologic/Lymphatic: Reports: anemia Allergies: Coded Allergies: CIPROFLOXACIN (Verified Allergy, Unknown, 09/27/17) All Systems: reviewed and negative except above Subjective no events. stable on the vent. no fevers. WBC elevated. cdiff neg. UA neg. cxr with persistent infil but improving. awake. Objective Last 24 Hour Vital Signs Date Time Temp Pulse Resp B/P (MAP) Pulse Ox O2 Delivery O2 Flow Rate FiO2 05/19/20 07:19 106 14 30 05/19/20 06:00 103 14 96/55 (69) 100 05/19/20 05:40 108 97/51 05/19/20 05:00 106 14 95/57 (70) 100 05/19/20 04:00 98.4 105 24 120/95 (103) 99 05/19/20 04:00 103 05/19/20 04:00 Mechanical Ventilator Mechanical Ventilator 05/19/20 04:00 30 05/19/20 03:00 108 14 109/57 (74) 100 05/19/20 02:49 106 14 30 05/19/20 02:00 107 14 110/66 (81) 100 05/19/20 01:15 () 05/19/20 01:00 108 14 97/57 (70) 100 05/19/20 01:00 108 14 97/57 (70) 100 05/19/20 00:45 110 14 110/54 (72) 100 05/19/20 00:30 107 14 100/53 (69) 100 05/19/20 00:15 109 14 93/55 (68) 100 05/19/20 00:00 30 05/19/20 00:00 112 14 109/50 (69) 100 05/19/20 00:00 98.6 112 14 109/50 (69) 100 05/19/20 00:00 106 05/19/20 00:00 Mechanical Ventilator Mechanical Ventilator 05/18/20 23:00 109 15 118/70 (86) 100 05/18/20 22:49 109 14 30 05/18/20 22:00 112 14 105/54 (71) 100 05/18/20 21:45 110 101/60 05/18/20 21:00 98.4 114 18 109/58 (75) 100 05/18/20 20:00 30 05/18/20 20:00 Mechanical Ventilator Mechanical Ventilator 05/18/20 20:00 113 15 108/53 (71) 100 05/18/20 20:00 110 05/18/20 19:15 107 15 30 05/18/20 19:00 110 15 101/58 (72) 100 05/18/20 18:00 107 14 106/59 (75) 100 05/18/20 17:00 102 14 103/60 (74) 100 05/18/20 16:00 98.6 103 14 101/54 (70) 100 05/18/20 16:00 30 05/18/20 16:00 108 05/18/20 16:00 Mechanical Ventilator Mechanical Ventilator 05/18/20 15:14 103 14 30 05/18/20 15:00 102 14 102/53 (69) 100 05/18/20 14:26 102 99/52 05/18/20 14:00 104 14 98/55 (69) 100 05/18/20 13:00 98 14 100/55 (70) 100 05/18/20 12:00 30 05/18/20 12:00 Mechanical Ventilator Mechanical Ventilator 05/18/20 12:00 102 05/18/20 12:00 98.1 102 14 98/54 (69) 100 05/18/20 11:24 102 14 30 05/18/20 11:00 102 14 98/53 (68) 100 05/18/20 10:00 99 14 97/56 (70) 100 05/18/20 09:23 100 Intake and Output 05/18/20 05/19/20 19:00 07:00 Intake Total 685 ml 620 ml Output Total 570 ml 620 ml Balance 115 ml 0 ml Free Water 100 ml 50 ml IV Total 55 ml 255 ml Tube Feeding 350 ml 315 ml Other 180 ml Output Urine Total 570 ml 620 ml # Bowel Movements 2 3 Laboratory Tests 05/19/20 04:50: White Blood Count 25.3*H, Red Blood Count 4.15L, Hemoglobin 11.7L, Hematocrit 35.5L, Mean Corpuscular Volume 86, Mean Corpuscular Hemoglobin 28.1, Mean Corpuscular Hemoglobin Concent 32.8, Red Cell Distribution Width 18.5H, Platelet Count 213, Mean Platelet Volume 6.0L, Neutrophils (%) (Auto) , Lymphocytes (%) (Auto) , Monocytes (%) (Auto) , Eosinophils (%) (Auto) , Basophils (%) (Auto) , Neutrophils % (Manual) [Pending], Lymphocytes % (Manual) [Pending], Platelet Estimate [Pending], Platelet Morphology [Pending], Sodium Level 147H, Potassium Level 3.9, Chloride Level 111H, Carbon Dioxide Level 24, Anion Gap 12, Blood Urea Nitrogen 109H, Creatinine 2.7H, Estimat Glomerular Filtration Rate 20.6, Glucose Level 254H, Calcium Level 8.5, Total Bilirubin 0.6, Aspartate Amino Tra nsf (AST/SGOT) 85H, Alanine Aminotransferase (ALT/SGPT) 277H, Alkaline Phosphatase 199H, Total Protein 5.1L, Albumin 1.7L, Globulin 3.4, Albumin/Globul in Ratio 0.5L 05/19/20 07:01: Urine Color Yellow, Urine Appearance Very cloudy, Urine pH 6, Urine Specific [place] 1.010, Urine Protein 2+H, Urine Glucose (UA) Negative, Urine Ketones Negative, Urine Blood 5+H, Urine Nitrite Negative, Urine Bilirubin Negative, Urine Urobilinogen Normal, Urine Leukocyte Esterase 3+H, Urine RBC 10-15H, Urine WBC 5-10H, Urine Squamous Epithelial Cells Few, Urine Bacteria Few, Urine Yeast ManyH Height (Feet): 5 Height (Inches): 3.00 Weight (Pounds): 160 Objective General Appearance: WD/WN, no apparent distress, alert. orally intubated EENT: PERRL/EOMI Neck: non-tender, normal alignment, supple Cardiovascular: normal rate, regular rhythm Respiratory/Chest: chest wall non-tender, lungs clear, normal breath sounds, no respiratory distress, no accessory muscle use Abdomen: normal bowel sounds, non tender, soft, no organomegaly Edema: no edema noted Arm (L), no edema noted Arm (R) Neurologic: inventory control assistant II-XII grossly normal, alert, oriented x 3, responsive Skin: normal pigmentation Lymphatic: normal anterior cervical (L), normal anterior cervical (R) Assessment/Plan Problem List: (1) Pulmonary fibrosis ICD Codes: J84.10 - Pulmonary fibrosis, unspecified SNOMED: 94043197 (2) History of asthma ICD Codes: Z87.09 - Personal history of other diseases of the respiratory system SNOMED: 428474087 (3) Asthma ICD Codes: J45.909 - Unspecified asthma, uncomplicated SNOMED: 452353143 (4) NSTEMI (non-ST elevated myocardial infarction) ICD Codes: I21.4 - Non-ST elevation (NSTEMI) myocardial infarction SNOMED: 107376023 (5) Elevated troponin ICD Codes: R79.89 - Other specified abnormal findings of blood chemistry SNOMED: 496996240, 256267227, 654148057 (6) COPD (chronic obstructive pulmonary disease) ICD Codes: J44.9 - Chronic obstructive pulmonary disease, unspecified SNOMED: 85313885 (7) Atrial fibrillation with RVR ICD Codes: I48.91 - Unspecified atrial fibrillation SNOMED: 435572582525430 (8) Community acquired pneumonia ICD Codes: J18.9 - Pneumonia, unspecified organism SNOMED: 339568220 Status: stable Assessment/Plan: cont current rx vent support resp rx and suctioning wean as able iv abx per ID monitor elevated wbc- ?due to steroids. wean per pulm monitor cxr tube feeds stress ulcer prophylaxis monitor labs/renal fxn- improving ?ivf replace lytes resp rx/mdi Bradford Linn MD May 19, 2020 09:13
--- NOTE | 2020-05-19 09:30 | NUR ---
NURSE NOTES: Cleaned patient for 1 moderate amount of soft loose dark brown BM. Turned and repositioned patient.
[2020-05-19] MEDS: Wixela 100/50 Inhaler - 60 dose INH SCH ×2 (10:00→21:41)
--- NOTE | 2020-05-19 10:00 | Diagnostic Imaging Report ---
Indication: Dyspnea Technique: One view of the chest Comparison: 05/16/2020 Findings: Stable satisfactory position of endotracheal and orogastric tubes. Left mid and lower lung reticular and airspace opacities persist, unchanged. There is suggestion of some bronchiectasis in this area. Right upper lobe opacities persist, unchanged. The heart size is normal. Impression: Unchanged left basilar infiltrate. Note that there is suggestion of bronchiectasis which may indicate a chronic component to this. Unchanged right upper lobe infiltrates, more likely acute.
--- NOTE | 2020-05-19 11:43 | Infectious Diseases Prog Note ---
Assessment/Plan Assessment/Plan antibiotics : meropenem A 1. COVID 19 pneumonia s/p ivermectin 9.7.20 2. renal failure 3. increased LFT 4. COPD 5. CHF 6. asthma 7. respiratory failure 8. leucocytosis likely secondary to steroids 9. pseudomonas pneumonia P 1. continue meropenem 2 more days 4. will follow up cultures Subjective ROS Limited/Unobtainable: Yes Allergies: Coded Allergies: CIPROFLOXACIN (Verified Allergy, Unknown, 09/27/17) Objective Last 24 Hour Vital Signs Date Time Temp Pulse Resp B/P (MAP) Pulse Ox O2 Delivery O2 Flow Rate FiO2 05/19/20 10:00 101 14 92/54 (67) 100 05/19/20 09:00 104 19 105/64 (78) 100 05/19/20 08:15 106 05/19/20 08:00 98.8 107 14 108/54 (72) 100 05/19/20 08:00 Mechanical Ventilator Mechanical Ventilator 05/19/20 08:00 30 05/19/20 07:19 106 14 30 05/19/20 07:00 104 14 106/52 (70) 100 05/19/20 06:00 103 14 96/55 (69) 100 05/19/20 05:40 108 97/51 05/19/20 05:00 106 14 95/57 (70) 100 05/19/20 04:00 98.4 105 24 120/95 (103) 99 05/19/20 04:00 103 05/19/20 04:00 Mechanical Ventilator Mechanical Ventilator 05/19/20 04:00 30 05/19/20 03:00 108 14 109/57 (74) 100 05/19/20 02:49 106 14 30 05/19/20 02:00 107 14 110/66 (81) 100 05/19/20 01:15 () 05/19/20 01:00 108 14 97/57 (70) 100 05/19/20 01:00 108 14 97/57 (70) 100 05/19/20 00:45 110 14 110/54 (72) 100 05/19/20 00:30 107 14 100/53 (69) 100 05/19/20 00:15 109 14 93/55 (68) 100 05/19/20 00:00 30 05/19/20 00:00 112 14 109/50 (69) 100 05/19/20 00:00 98.6 112 14 109/50 (69) 100 05/19/20 00:00 106 05/19/20 00:00 Mechanical Ventilator Mechanical Ventilator 05/18/20 23:00 109 15 118/70 (86) 100 05/18/20 22:49 109 14 30 05/18/20 22:00 112 14 105/54 (71) 100 05/18/20 21:45 110 101/60 05/18/20 21:00 98.4 114 18 109/58 (75) 100 05/18/20 20:00 30 05/18/20 20:00 Mechanical Ventilator Mechanical Ventilator 05/18/20 20:00 113 15 108/53 (71) 100 05/18/20 20:00 110 05/18/20 19:15 107 15 30 05/18/20 19:00 110 15 101/58 (72) 100 05/18/20 18:00 107 14 106/59 (75) 100 05/18/20 17:00 102 14 103/60 (74) 100 05/18/20 16:00 98.6 103 14 101/54 (70) 100 05/18/20 16:00 30 05/18/20 16:00 108 05/18/20 16:00 Mechanical Ventilator Mechanical Ventilator 05/18/20 15:14 103 14 30 05/18/20 15:00 102 14 102/53 (69) 100 05/18/20 14:26 102 99/52 05/18/20 14:00 104 14 98/55 (69) 100 05/18/20 13:00 98 14 100/55 (70) 100 05/18/20 12:00 30 05/18/20 12:00 Mechanical Ventilator Mechanical Ventilator 05/18/20 12:00 102 05/18/20 12:00 98.1 102 14 98/54 (69) 100 Height (Feet): 5 Height (Inches): 3.00 Weight (Pounds): 160 HEENT: other - intubated Respiratory/Chest: lungs clear Cardiovascular: normal rate, regular rhythm, no gallop/murmur Abdomen: soft, non tender Extremities: other - + edema Microbiology Date/Time Source Procedure Growth Status 05/17/20 08:30 Stool Clostridium difficile Toxin Assay - Final Complete Laboratory Tests Test 05/19/20 04:50 05/19/20 07:01 White Blood Count 25.3 K/UL (4.8-10.8) *H Red Blood Count 4.15 M/UL (4.20-5.40) L Hemoglobin 11.7 G/DL (12.0-16.0) L Hematocrit 35.5 % (37.0-47.0) L Mean Corpuscular Volume 86 FL (80-99) Mean Corpuscular Hemoglobin 28.1 PG (27.0-31.0) Mean Corpuscular Hemoglobin Concent 32.8 G/DL (32.0-36.0) Red Cell Distribution Width 18.5 % (11.6-14.8) H Platelet Count 213 K/UL (150-450) Mean Platelet Volume 6.0 FL (6.5-10.1) L Neutrophils (%) (Auto) % (45.0-75.0) Lymphocytes (%) (Auto) % (20.0-45.0) Monocytes (%) (Auto) % (1.0-10.0) Eosinophils (%) (Auto) % (0.0-3.0) Basophils (%) (Auto) % (0.0-2.0) Differential Total Cells Counted 100 Neutrophils % (Manual) 97 % (45-75) H Lymphocytes % (Manual) 1 % (20-45) L Monocytes % (Manual) 2 % (1-10) Eosinophils % (Manual) 0 % (0-3) Basophils % (Manual) 0 % (0-2) Band Neutrophils 0 % (0-8) Platelet Estimate Adequate Platelet Morphology Normal Anisocytosis 2+ Sodium Level 147 MMOL/L (136-145) H Potassium Level 3.9 MMOL/L (3.5-5.1) Chloride Level 111 MMOL/L (98-107) H Carbon Dioxide Level 24 MMOL/L (21-32) Anion Gap 12 mmol/L (5-15) Blood Urea Nitrogen 109 mg/dL (7-18) H Creatinine 2.7 MG/DL (0.55-1.30) H Estimat Glomerular Filtration Rate 20.6 mL/min (>60) Glucose Level 254 MG/DL (74-106) H Calcium Level 8.5 MG/DL (8.5-10.1) Total Bilirubin 0.6 MG/DL (0.2-1.0) Aspartate Amino Transf (AST/SGOT) 85 U/L (15-37) H Alanine Aminotransferase (ALT/SGPT) 277 U/L (12-78) H Alkaline Phosphatase 199 U/L (46-116) H Total Protein 5.1 G/DL (6.4-8.2) L Albumin 1.7 G/DL (3.4-5.0) L Globulin 3.4 g/dL Albumin/Globulin Ratio 0.5 (1.0-2.7) L Urine Color Yellow Urine Appearance Very cloudy Urine pH 6 (4.5-8.0) Urine Specific [place] 1.010 (1.005-1.035) Urine Protein 2+ (NEGATIVE) H Urine Glucose (UA) Negative (NEGATIVE) Urine Ketones Negative (NEGATIVE) Urine Blood 5+ (NEGATIVE) H Urine Nitrite Negative (NEGATIVE) Urine Bilirubin Negative (NEGATIVE) Urine Urobilinogen Normal MG/DL (0.0-1.0) Urine Leukocyte Esterase 3+ (NEGATIVE) H Urine RBC 10-15 /HPF (0 - 2) H Urine WBC 5-10 /HPF (0 - 2) H Urine Squamous Epithelial Cells Few /LPF (NONE/OCC) Urine Bacteria Few /HPF (NONE) Urine Yeast Many /HPF (NONE) H Current Medications Medications (Trade) Dose Ordered Sig/Ghislaine Route PRN Reason Start Time Stop Time Status Last Admin Dose Admin Acetaminophen (Tylenol) 500 mg Q4H PRN ORAL Mild Pain (Pain Scale 1-3) 05/11/20 20:00 06/02/20 19:59 05/13/20 08:37 Albuterol Sulfate (Proventil MDI) 2 puff Q4H PRN INH Shortness of Breath 05/11/20 20:00 08/01/20 11:59 05/13/20 10:30 Apixaban (Eliquis) 2.5 mg BID ORAL 05/12/20 09:00 08/01/20 17:59 05/19/20 08:51 Aspirin (Ecotrin) 81 mg DAILY ORAL 05/12/20 09:00 06/17/20 15:59 05/19/20 08:50 Diltiazem HCl (Cardizem Tab) 60 mg EVERY 8 HOURS ORAL 05/16/20 06:00 06/15/20 05:59 05/19/20 05:40 Meropenem 500 mg/ Sodium Chloride 55 ml @ 110 mls/hr Q12HR IVPB 05/15/20 13:00 05/22/20 12:59 05/19/20 08:51 Methylprednisolone Sodium Succinate (Solu-MEDROL) 30 mg DAILY IVP 05/19/20 09:00 08/17/20 08:59 05/19/20 08:50 Pantoprazole (Protonix) 40 mg DAILY ORAL 05/12/20 09:00 06/02/20 15:59 05/19/20 08:50 Salmeterol Xinafoate/ Fluticasone (Advair 100/50 Diskus) 1 puffs BIDRT INH 05/11/20 22:00 08/09/20 21:59 05/16/20 09:02 Camilo Cameron MD May 19, 2020 11:43
--- NOTE | 2020-05-19 11:45 | NUR ---
NURSE NOTES: Dr Cameron here to see the patient. Updated him with patient's current condition, including elevated WBC. Awaiting call back for new orders.
--- NOTE | 2020-05-19 12:11 | NUR ---
NURSE NOTES: Patient failed weaning as per RT.
--- NOTE | 2020-05-19 13:00 | NUR ---
NURSE NOTES: Will start tube feeding since weaning is done. Patient is sleeping in bed. Tired looking. Easily waking up to voice. Will continue to monitor.
--- NOTE | 2020-05-19 13:09 | NUR ---
RADIOLOGY DEPT., CHEST X-RAY DONE.-P.DYE
--- NOTE | 2020-05-19 14:33 | NUR ---
NURSE NOTES: Dr Sanchez is here to see the patient. Updated him with patient's current condition. No new orders for now.
--- NOTE | 2020-05-19 14:33 | Surgery Progress Note ---
Surgery Progress Note Subjective Additional Comments no acute events Objective Last 24 Hour Vital Signs Date Time Temp Pulse Resp B/P (MAP) Pulse Ox O2 Delivery O2 Flow Rate FiO2 05/19/20 12:00 Mechanical Ventilator Mechanical Ventilator 05/19/20 12:00 94 14 92/52 (65) 100 05/19/20 12:00 30 05/19/20 11:50 97 05/19/20 11:19 97 14 30 05/19/20 11:00 102 14 104/56 (72) 100 05/19/20 10:00 101 14 92/54 (67) 100 05/19/20 09:00 104 19 105/64 (78) 100 05/19/20 08:15 106 05/19/20 08:00 98.8 107 14 108/54 (72) 100 05/19/20 08:00 Mechanical Ventilator Mechanical Ventilator 05/19/20 08:00 30 05/19/20 07:19 106 14 30 05/19/20 07:00 104 14 106/52 (70) 100 05/19/20 06:00 103 14 96/55 (69) 100 05/19/20 05:40 108 97/51 05/19/20 05:00 106 14 95/57 (70) 100 05/19/20 04:00 98.4 105 24 120/95 (103) 99 05/19/20 04:00 103 05/19/20 04:00 Mechanical Ventilator Mechanical Ventilator 05/19/20 04:00 30 05/19/20 03:00 108 14 109/57 (74) 100 05/19/20 02:49 106 14 30 05/19/20 02:00 107 14 110/66 (81) 100 05/19/20 01:15 () 05/19/20 01:00 108 14 97/57 (70) 100 05/19/20 01:00 108 14 97/57 (70) 100 05/19/20 00:45 110 14 110/54 (72) 100 05/19/20 00:30 107 14 100/53 (69) 100 05/19/20 00:15 109 14 93/55 (68) 100 05/19/20 00:00 30 05/19/20 00:00 112 14 109/50 (69) 100 05/19/20 00:00 98.6 112 14 109/50 (69) 100 05/19/20 00:00 106 05/19/20 00:00 Mechanical Ventilator Mechanical Ventilator 05/18/20 23:00 109 15 118/70 (86) 100 05/18/20 22:49 109 14 30 05/18/20 22:00 112 14 105/54 (71) 100 05/18/20 21:45 110 101/60 05/18/20 21:00 98.4 114 18 109/58 (75) 100 05/18/20 20:00 30 05/18/20 20:00 Mechanical Ventilator Mechanical Ventilator 05/18/20 20:00 113 15 108/53 (71) 100 05/18/20 20:00 110 05/18/20 19:15 107 15 30 05/18/20 19:00 110 15 101/58 (72) 100 05/18/20 18:00 107 14 106/59 (75) 100 05/18/20 17:00 102 14 103/60 (74) 100 05/18/20 16:00 98.6 103 14 101/54 (70) 100 05/18/20 16:00 30 05/18/20 16:00 108 05/18/20 16:00 Mechanical Ventilator Mechanical Ventilator 05/18/20 15:14 103 14 30 05/18/20 15:00 102 14 102/53 (69) 100 I&O Intake and Output 05/18/20 05/19/20 18:59 06:59 Intake Total 650 ml 655 ml Output Total 580 ml 660 ml Balance 70 ml -5 ml Free Water 100 ml 50 ml IV Total 55 ml 255 ml Tube Feeding 315 ml 350 ml Other 180 ml Output Urine Total 580 ml 660 ml # Bowel Movements 2 3 Dressing: other Wound: other Cardiovascular: RSR Respiratory: decreased breath sounds Abdomen: soft, non-tender, present bowel sounds Extremities: no cyanosis Laboratory Tests Test 05/19/20 04:50 05/19/20 07:01 White Blood Count 25.3 K/UL (4.8-10.8) *H Red Blood Count 4.15 M/UL (4.20-5.40) L Hemoglobin 11.7 G/DL (12.0-16.0) L Hematocrit 35.5 % (37.0-47.0) L Mean Corpuscular Volume 86 FL (80-99) Mean Corpuscular Hemoglobin 28.1 PG (27.0-31.0) Mean Corpuscular Hemoglobin Concent 32.8 G/DL (32.0-36.0) Red Cell Distribution Width 18.5 % (11.6-14.8) H Platelet Count 213 K/UL (150-450) Mean Platelet Volume 6.0 FL (6.5-10.1) L Neutrophils (%) (Auto) % (45.0-75.0) Lymphocytes (%) (Auto) % (20.0-45.0) Monocytes (%) (Auto) % (1.0-10.0) Eosinophils (%) (Auto) % (0.0-3.0) Basophils (%) (Auto) % (0.0-2.0) Differential Total Cells Counted 100 Neutrophils % (Manual) 97 % (45-75) H Lymphocytes % (Manual) 1 % (20-45) L Monocytes % (Manual) 2 % (1-10) Eosinophils % (Manual) 0 % (0-3) Basophils % (Manual) 0 % (0-2) Band Neutrophils 0 % (0-8) Platelet Estimate Adequate Platelet Morphology Normal Anisocytosis 2+ Sodium Level 147 MMOL/L (136-145) H Potassium Level 3.9 MMOL/L (3.5-5.1) Chloride Level 111 MMOL/L (98-107) H Carbon Dioxide Level 24 MMOL/L (21-32) Anion Gap 12 mmol/L (5-15) Blood Urea Nitrogen 109 mg/dL (7-18) H Creatinine 2.7 MG/DL (0.55-1.30) H Estimat Glomerular Filtration Rate 20.6 mL/min (>60) Glucose Level 254 MG/DL (74-106) H Calcium Level 8.5 MG/DL (8.5-10.1) Total Bilirubin 0.6 MG/DL (0.2-1.0) Aspartate Amino Transf (AST/SGOT) 85 U/L (15-37) H Alanine Aminotransferase (ALT/SGPT) 277 U/L (12-78) H Alkaline Phosphatase 199 U/L (46-116) H Total Protein 5.1 G/DL (6.4-8.2) L Albumin 1.7 G/DL (3.4-5.0) L Globulin 3.4 g/dL Albumin/Globulin Ratio 0.5 (1.0-2.7) L Urine Color Yellow Urine Appearance Very cloudy Urine pH 6 (4.5-8.0) Urine Specific [place] 1.010 (1.005-1.035) Urine Protein 2+ (NEGATIVE) H Urine Glucose (UA) Negative (NEGATIVE) Urine Ketones Negative (NEGATIVE) Urine Blood 5+ (NEGATIVE) H Urine Nitrite Negative (NEGATIVE) Urine Bilirubin Negative (NEGATIVE) Urine Urobilinogen Normal MG/DL (0.0-1.0) Urine Leukocyte Esterase 3+ (NEGATIVE) H Urine RBC 10-15 /HPF (0 - 2) H Urine WBC 5-10 /HPF (0 - 2) H Urine Squamous Epithelial Cells Few /LPF (NONE/OCC) Urine Bacteria Few /HPF (NONE) Urine Yeast Many /HPF (NONE) H Plan Problems: (1) Elevated troponin (2) Atrial fibrillation with RVR (3) COVID-19 Assessment & Plan: ++ as per pulm and ID DAILY ESTIMATED NEEDS: Needs based on Critical Care, ARF/ 56kg abw 22-28 kcals/kg 9816-6540 total kcals 0.8-1.5 (increase w/ renal improvement) g protein/kg 45-84 g total protein 25-30 mL/kg 2244-8843 total fluid mLs NUTRITION DIAGNOSIS: * Altered nutrition related lab values r/t clinical status as evidenced by elev BUN(82), creat(3.8) trending up, critical ABG (low pH, elev CO2)-> now improved. * Swallowing difficulty R/T respiratory status as evidenced by s/p oral intubation, on OGT feeds. 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: [employer]OCIATE eval post extubation ENTERAL NUTRITION RECOMMENDATIONS: Nepro @ 35ml/hr x 24 hrs to provide 840ml, 1512kcal, 68g prot, 610ml free water * W/ worsening renal fxn, rec to continue Nepro * As tolerated, increase goal rate to 35ml/hr x 24 hrs to meet 100% est kcal/prot needs ADDITIONAL RECOMMENDATIONS: 1) Calibrated bedscale wt 2) Monitor renal fxn and lytes, need to continue Nepro Creat trending up 3) Rec niss w/ solumedrol (4) Community acquired pneumonia (5) COPD (chronic obstructive pulmonary disease) (6) Pulmonary fibrosis (7) Asthma (8) History of asthma (9) NSTEMI (non-ST elevated myocardial infarction) (10) Moderate to severe pulmonary hypertension (11) Asthma exacerbation (12) Abnormal LFTs Assessment & Plan: afebrile, HD stable labs noted lft's elevated US reviewed exam benign gb likely reactive from underlying pathology unlikely cholecystitis clinically fluid overload trend labs will monitor exam clinically covid + prognosis guarded cxr reviewed on abx worsening plan repeat US - noted Gallbladder demonstrates wall thickening and wall edema, gallbladder wall measuring up to 6 mm thick. There are gallstones. Sonographic Escoto's sign is negative. Common bile duct measures 3 mm in diameter. No intrahepatic biliary ductal dilatation. Liver demonstrates normal echogenicity, no focal abnormality. Portal vein and hepatic veins are patent. Pancreas is unremarkable. Spleen is unremarkable. Left kidney measures 9.2 cm in length. Right kidney measures 9.9 cm length. Both kidneys demonstrate normal echogenicity. There is no hydronephrosis. Small cyst is seen in the right kidney. . Abdominal aorta was not imaged . There is trace ascites. There is a small right pleural effusion incidentally noted Impression: Small right pleural effusion. Trace ascites Cholelithiasis. Gallbladder wall thickening may be related to hemodynamic factors causing the pleural fluid and ascites, but could also indicate acute cholecystitis. Consider nuclear medicine hepatobiliary scan if there is high clinical suspicion. Negative for dilated bile ducts Small right renal cyst incidentally noted (13) Acute respiratory failure with hypoxia Quentin Sanchez May 19, 2020 14:33
--- NOTE | 2020-05-19 17:00 | NUR ---
NURSE NOTES: Cleaned patient for another brown loose BM. Turned and repositioned patient. Tube feeding is running. No residual noted. Will continue to monitor.
--- NOTE | 2020-05-19 19:20 | NUR ---
NURSE HAND-OFF REPORT: Latest Vital Signs: Temperature 99.0 , Pulse 101 , B/P 90 /59 , Respiratory Rate 18 , O2 SAT 100 , Mechanical Ventilator, O2 Flow Rate 4.0 . Vital Sign Comment: EKG Rhythm: Sinus Tachycardia Rhythm change?: N Notified?: Tracy Linn MD Response: No New Orders Received Latest Lechuga Fall Score: 50 Fall Risk: High Risk Safety Measures: Call light Within Reach, Bed Alarm Zone 1, Side Rails Side Rails x3, Bed position Low and Locked. Fall Precautions: Yellow Socks Door Sign Patient Fall Education Report given to DAMIAN Garcia.
--- NOTE | 2020-05-19 19:38 | NUR ---
NURSE NOTES: received report from awake orally intubated -vent o2 sat 100% no acute resp distress tolerating tube feeding no residualiv infusing infusing well site good reposition and suction
[2020-05-20] VITALS (24 sets, daily range): BP systolic 95–126; BP diastolic 49–65
--- NOTE | 2020-05-20 00:43 | Cardiology Progress Note ---
Subjective DATE OF SERVICE: May 19, 2020 Condition remains critical; patient remains on [facility] ventilation. Monitor: AFib with episodes of RVR and nonsustained VTach. Lactic acidosis resolved BP remains tenuous, as well as acid-base status. Episodes of tachyarrhythmias noted. CXR (05/19) reviewed: bilateral patchy infiltrates, left appears chronic, but right acute and worse. elevated WBC on steroids Objective Last 24 Hour Vital Signs Date Time Temp Pulse Resp B/P (MAP) Pulse Ox O2 Delivery O2 Flow Rate FiO2 05/19/20 22:53 102 14 30 05/19/20 22:00 100 14 96/52 (67) 100 05/19/20 21:42 108 95/51 05/19/20 21:00 106 14 102/52 (69) 100 05/19/20 21:00 108 05/19/20 20:00 99.4 99 14 95/55 (68) 100 05/19/20 20:00 Mechanical Ventilator Mechanical Ventilator 05/19/20 20:00 30 05/19/20 19:27 101 18 30 05/19/20 19:00 101 14 90/59 (69) 100 05/19/20 18:00 104 14 100/51 (67) 100 05/19/20 17:00 105 14 92/50 (64) 100 05/19/20 16:00 30 05/19/20 16:00 99.0 105 14 103/56 (72) 100 05/19/20 16:00 Mechanical Ventilator Mechanical Ventilator 05/19/20 15:45 99 05/19/20 15:28 104 14 30 05/19/20 15:00 102 14 106/57 (73) 100 05/19/20 14:53 94 95/45 05/19/20 14:00 101 14 101/55 (70) 100 05/19/20 13:00 99.2 97 14 99/54 (69) 100 05/19/20 12:00 Mechanical Ventilator Mechanical Ventilator 05/19/20 12:00 94 14 92/52 (65) 100 05/19/20 12:00 30 05/19/20 11:50 97 05/19/20 11:19 97 14 30 05/19/20 11:00 102 14 104/56 (72) 100 05/19/20 10:00 101 14 92/54 (67) 100 05/19/20 09:00 104 19 105/64 (78) 100 05/19/20 08:15 106 05/19/20 08:00 98.8 107 14 108/54 (72) 100 05/19/20 08:00 Mechanical Ventilator Mechanical Ventilator 05/19/20 08:00 30 05/19/20 07:19 106 14 30 05/19/20 07:00 104 14 106/52 (70) 100 05/19/20 06:00 103 14 96/55 (69) 100 05/19/20 05:40 108 97/51 05/19/20 05:00 106 14 95/57 (70) 100 05/19/20 04:00 98.4 105 24 120/95 (103) 99 05/19/20 04:00 103 05/19/20 04:00 Mechanical Ventilator Mechanical Ventilator 05/19/20 04:00 30 05/19/20 03:00 108 14 109/57 (74) 100 05/19/20 02:49 106 14 30 05/19/20 02:00 107 14 110/66 (81) 100 05/19/20 01:15 () 05/19/20 01:00 108 14 97/57 (70) 100 05/19/20 01:00 108 14 97/57 (70) 100 05/19/20 00:45 110 14 110/54 (72) 100 ROS: unchanged from my eval of 05/03/20 HEENT: Orally intubated, Mechanically Ventilated, Thin secretions ET Tube LUNGS: no accessory muscle use, expiratory wheezing, diminished breath sounds CARDIAC: normal S1 and S2, no murmur, irregularly irregular ABDOMEN: normal bowel sounds, non tender, soft, no organomegaly EXTREMITIES: no calf tenderness, +1 edema Laboratory Tests Test 05/19/20 04:50 05/19/20 07:01 White Blood Count 25.3 K/UL (4.8-10.8) *H Red Blood Count 4.15 M/UL (4.20-5.40) L Hemoglobin 11.7 G/DL (12.0-16.0) L Hematocrit 35.5 % (37.0-47.0) L Mean Corpuscular Volume 86 FL (80-99) Mean Corpuscular Hemoglobin 28.1 PG (27.0-31.0) Mean Corpuscular Hemoglobin Concent 32.8 G/DL (32.0-36.0) Red Cell Distribution Width 18.5 % (11.6-14.8) H Platelet Count 213 K/UL (150-450) Mean Platelet Volume 6.0 FL (6.5-10.1) L Neutrophils (%) (Auto) % (45.0-75.0) Lymphocytes (%) (Auto) % (20.0-45.0) Monocytes (%) (Auto) % (1.0-10.0) Eosinophils (%) (Auto) % (0.0-3.0) Basophils (%) (Auto) % (0.0-2.0) Differential Total Cells Counted 100 Neutrophils % (Manual) 97 % (45-75) H Lymphocytes % (Manual) 1 % (20-45) L Monocytes % (Manual) 2 % (1-10) Eosinophils % (Manual) 0 % (0-3) Basophils % (Manual) 0 % (0-2) Band Neutrophils 0 % (0-8) Platelet Estimate Adequate Platelet Morphology Normal Anisocytosis 2+ Sodium Level 147 MMOL/L (136-145) H Potassium Level 3.9 MMOL/L (3.5-5.1) Chloride Level 111 MMOL/L (98-107) H Carbon Dioxide Level 24 MMOL/L (21-32) Anion Gap 12 mmol/L (5-15) Blood Urea Nitrogen 109 mg/dL (7-18) H Creatinine 2.7 MG/DL (0.55-1.30) H Estimat Glomerular Filtration Rate 20.6 mL/min (>60) Glucose Level 254 MG/DL (74-106) H Calcium Level 8.5 MG/DL (8.5-10.1) Total Bilirubin 0.6 MG/DL (0.2-1.0) Aspartate Amino Transf (AST/SGOT) 85 U/L (15-37) H Alanine Aminotransferase (ALT/SGPT) 277 U/L (12-78) H Alkaline Phosphatase 199 U/L (46-116) H Total Protein 5.1 G/DL (6.4-8.2) L Albumin 1.7 G/DL (3.4-5.0) L Globulin 3.4 g/dL Albumin/Globulin Ratio 0.5 (1.0-2.7) L Urine Color Yellow Urine Appearance Very cloudy Urine pH 6 (4.5-8.0) Urine Specific [place] 1.010 (1.005-1.035) Urine Protein 2+ (NEGATIVE) H Urine Glucose (UA) Negative (NEGATIVE) Urine Ketones Negative (NEGATIVE) Urine Blood 5+ (NEGATIVE) H Urine Nitrite Negative (NEGATIVE) Urine Bilirubin Negative (NEGATIVE) Urine Urobilinogen Normal MG/DL (0.0-1.0) Urine Leukocyte Esterase 3+ (NEGATIVE) H Urine RBC 10-15 /HPF (0 - 2) H Urine WBC 5-10 /HPF (0 - 2) H Urine Squamous Epithelial Cells Few /LPF (NONE/OCC) Urine Bacteria Few /HPF (NONE) Urine Yeast Many /HPF (NONE) H Microbiology Date/Time Source Procedure Growth Status 05/17/20 08:30 Stool Clostridium difficile Toxin Assay - Final Complete Assessment/Plan Assessment/Plan Acute on chronic respiratory acidosis Acute respiratory failure Shock LE edema due to severe pulmonary hypertension and right heart strain COPD exacerb with active bronchospasm Lactic acidosis COVID 19 PNA Acute on chr renal failure - now with hyperkalemia Chronic systolic/diastolic CHF Pulmonary fibrosis with chronic hypoxia Paroxysmal AFib with RVR Hx Multifocal atrial arrhythmias Pulmonary HTN - severe Hx NSVTach Acute myocardial ischemia Vent support with on-going weaning efforts Hold diltiazem for low BP, but titrate for optimal rate control Steroids per pulmonary Inhaled bronchodilators IVF adjusted Reassess for diuresis; not presently indicated Full anticoagulation for cardioembolic prophyl Isolation Anti-viral rx per Simone Shirley MD May 20, 2020 00:43
--- NOTE | 2020-05-20 04:00 | NUR ---
NURSE NOTES: complete bed bath oral care and back care reposition and suction
--- NOTE | 2020-05-20 06:00 | NUR ---
NURSE NOTES: asleep no acute resp distress noted
[2020-05-20] MEDS: dilTIAZem HCl 60mg tab ORAL SCH ×3 (06:01→21:32)
[2020-05-20 06:52] LABS: ALBUMIN 1.9 G/DL (3.4-5.0); ALBUMIN/GLOBULIN RATIO 0.7 (1.0-2.7); BILIRUBIN,TOTAL 0.6 MG/DL (0.2-1.0); CALCIUM 8.4 MG/DL (8.5-10.1); CREATININE 2.7 MG/DL (0.55-1.30); POTASSIUM 3.8 MMOL/L (3.5-5.1)
--- NOTE | 2020-05-20 07:44 | NUR ---
NURSE HAND-OFF REPORT: Latest Vital Signs: Temperature 99.6 , Pulse 110 , B/P 98 /51 , Respiratory Rate 14 , O2 SAT 100 , Mechanical Ventilator, O2 Flow Rate 4.0 . Vital Sign Comment: EKG Rhythm: Sinus Tachycardia Rhythm change?: N Notified?: Tracy Linn MD Response: No New Orders Received Latest Lechuga Fall Score: 50 Fall Risk: High Risk Safety Measures: Call light Within Reach, Bed Alarm Zone 1, Side Rails Side Rails x3, Bed position Low and Locked. Fall Precautions: Yellow Socks Door Sign Patient Fall Education Report given to paz hernandez rn using sbar.
--- NOTE | 2020-05-20 07:45 | NUR ---
NURSE NOTES: Report received from DAMIAN Garcia. Patient is sleeping in bed. Easily wakes up to voice and follow simple commands and answer for simple questions. Can be impulsive, trying to reach ETT at times. Will continue bilateral soft wrist restraints. ST on pvc monitor in HR 100's. ETT 7.5/20cm at lip line. AC 14, TV 500, FiO2 30%, P 5. O2 sat 100%. Small amount of yellow, clear thick oral secretion noted and suctioned. OGT in place, receiving Nepro at 35cc/hr. No residual noted. Riojas in place draining cloudy yellow urine to gravity. IV to left FA G20 patent and asymptomatic, open for TKO. Bed in lowest position. Side rails up x3. Will resume plan of care.
[2020-05-20 08:11] LABS: HEMATOCRIT 36.1 % (37.0-47.0); HEMOGLOBIN 11.8 G/DL (12.0-16.0); MEAN CORPUSCULAR VOLUME 86 FL (80-99); PLATELET COUNT 203 K/UL (150-450); RED BLOOD COUNT 4.21 M/UL (4.20-5.40); RED CELL DISTRIBUTION WIDTH 18.5 % (11.6-14.8)
[2020-05-20 08:14] LABS: WHITE BLOOD COUNT 23.3 K/UL (4.8-10.8)
--- NOTE | 2020-05-20 08:57 | NUR ---
NURSE NOTES: Dr Linn here to see the patient. Updated him with patient's current condition including WBC trending down. No new orders.
[2020-05-20] MEDS: Eliquis 2.5mg tablet ORAL SCH ×2 (09:06→17:37)
[2020-05-20] MEDS: Solu-MEDROL 40mg Inj IVP SCH (09:07)
[2020-05-20] MEDS: Meropenem 500 MG in NS 55 ML IVPB SCH ×2 (09:07→20:09)
[2020-05-20] MEDS: Aspirin EC 81mg tab ORAL SCH (09:07)
[2020-05-20] MEDS: Wixela 100/50 Inhaler - 60 dose INH SCH ×2 (10:00→20:10)
--- NOTE | 2020-05-20 11:35 | Infectious Diseases Prog Note ---
Assessment/Plan Assessment/Plan antibiotics : meropenem A 1. COVID 19 pneumonia s/p ivermectin 9.7.20 2. renal failure 3. increased LFT 4. COPD 5. CHF 6. asthma 7. respiratory failure 8. leucocytosis likely secondary to steroids improving 9. pseudomonas pneumonia 10. fungal UTI P 1. continue meropenem 1 more day 2. start fluconazole 3. will follow up cultures Subjective ROS Limited/Unobtainable: Yes Allergies: Coded Allergies: CIPROFLOXACIN (Verified Allergy, Unknown, 09/27/17) Objective Last 24 Hour Vital Signs Date Time Temp Pulse Resp B/P (MAP) Pulse Ox O2 Delivery O2 Flow Rate FiO2 05/20/20 10:00 100 16 103/57 (72) 100 05/20/20 09:00 99 14 98/50 (66) 100 05/20/20 08:06 104 05/20/20 08:00 Mechanical Ventilator Mechanical Ventilator 05/20/20 08:00 99.0 105 14 105/52 (69) 100 05/20/20 08:00 30 05/20/20 07:05 104 14 30 05/20/20 07:00 105 14 105/57 (73) 100 05/20/20 06:01 110 98/51 05/20/20 06:00 102 14 101/56 (71) 100 05/20/20 05:00 105 14 103/65 (78) 100 05/20/20 04:00 99.6 106 16 109/58 (75) 100 05/20/20 04:00 30 05/20/20 04:00 Mechanical Ventilator Mechanical Ventilator 05/20/20 04:00 108 05/20/20 03:00 109 14 102/49 (66) 100 05/20/20 02:53 100 16 30 05/20/20 02:00 103 14 105/50 (68) 100 05/20/20 01:00 102 14 101/58 (72) 100 05/20/20 00:00 Mechanical Ventilator Mechanical Ventilator 05/20/20 00:00 30 05/20/20 00:00 99.0 101 14 95/51 (66) 100 05/20/20 00:00 104 05/19/20 23:00 103 14 99/50 (66) 100 05/19/20 22:53 102 14 30 05/19/20 22:00 100 14 96/52 (67) 100 05/19/20 21:42 108 95/51 05/19/20 21:00 106 14 102/52 (69) 100 05/19/20 21:00 108 05/19/20 20:00 99.4 99 14 95/55 (68) 100 05/19/20 20:00 Mechanical Ventilator Mechanical Ventilator 05/19/20 20:00 30 05/19/20 19:27 101 18 30 05/19/20 19:00 101 14 90/59 (69) 100 05/19/20 18:00 104 14 100/51 (67) 100 05/19/20 17:00 105 14 92/50 (64) 100 05/19/20 16:00 30 05/19/20 16:00 99.0 105 14 103/56 (72) 100 05/19/20 16:00 Mechanical Ventilator Mechanical Ventilator 05/19/20 15:45 99 05/19/20 15:28 104 14 30 05/19/20 15:00 102 14 106/57 (73) 100 05/19/20 14:53 94 95/45 05/19/20 14:00 101 14 101/55 (70) 100 05/19/20 13:00 99.2 97 14 99/54 (69) 100 05/19/20 12:00 Mechanical Ventilator Mechanical Ventilator 05/19/20 12:00 94 14 92/52 (65) 100 05/19/20 12:00 30 05/19/20 11:50 97 Height (Feet): 5 Height (Inches): 3.00 Weight (Pounds): 160 HEENT: other - intubated Microbiology Date/Time Source Procedure Growth Status 05/19/20 07:01 Urine,Clean Catch Urine Culture - Preliminary Yeast Species Resulted Laboratory Tests Test 05/20/20 05:35 05/20/20 05:37 White Blood Count 23.3 K/UL (4.8-10.8) *H Red Blood Count 4.21 M/UL (4.20-5.40) Hemoglobin 11.8 G/DL (12.0-16.0) L Hematocrit 36.1 % (37.0-47.0) L Mean Corpuscular Volume 86 FL (80-99) Mean Corpuscular Hemoglobin 28.0 PG (27.0-31.0) Mean Corpuscular Hemoglobin Concent 32.7 G/DL (32.0-36.0) Red Cell Distribution Width 18.5 % (11.6-14.8) H Platelet Count 203 K/UL (150-450) Mean Platelet Volume 7.1 FL (6.5-10.1) Neutrophils (%) (Auto) % (45.0-75.0) Lymphocytes (%) (Auto) % (20.0-45.0) Monocytes (%) (Auto) % (1.0-10.0) Eosinophils (%) (Auto) % (0.0-3.0) Basophils (%) (Auto) % (0.0-2.0) Differential Total Cells Counted 100 Neutrophils % (Manual) 96 % (45-75) H Lymphocytes % (Manual) 1 % (20-45) L Monocytes % (Manual) 3 % (1-10) Eosinophils % (Manual) 0 % (0-3) Basophils % (Manual) 0 % (0-2) Band Neutrophils 0 % (0-8) Nucleated Red Blood Cells 1 /100 WBC Platelet Estimate Adequate Platelet Morphology Normal Anisocytosis 1+ Sodium Level 150 MMOL/L (136-145) H Potassium Level 3.8 MMOL/L (3.5-5.1) Chloride Level 113 MMOL/L (98-107) H Carbon Dioxide Level 27 MMOL/L (21-32) Anion Gap 10 mmol/L (5-15) Blood Urea Nitrogen 117 mg/dL (7-18) H Creatinine 2.7 MG/DL (0.55-1.30) H Estimat Glomerular Filtration Rate 20.6 mL/min (>60) Glucose Level 243 MG/DL (74-106) H Calcium Level 8.4 MG/DL (8.5-10.1) L Total Bilirubin 0.6 MG/DL (0.2-1.0) Aspartate Amino Transf (AST/SGOT) 115 U/L (15-37) H Alanine Aminotransferase (ALT/SGPT) 311 U/L (12-78) H Alkaline Phosphatase 195 U/L (46-116) H Total Protein 4.5 G/DL (6.4-8.2) L Albumin 1.9 G/DL (3.4-5.0) L Globulin 2.6 g/dL Albumin/Globulin Ratio 0.7 (1.0-2.7) L Current Medications Medications (Trade) Dose Ordered Sig/Ghislaine Route PRN Reason Start Time Stop Time Status Last Admin Dose Admin Acetaminophen (Tylenol) 500 mg Q4H PRN ORAL Mild Pain (Pain Scale 1-3) 05/11/20 20:00 06/02/20 19:59 05/13/20 08:37 Albuterol Sulfate (Proventil MDI) 2 puff Q4H PRN INH Shortness of Breath 05/11/20 20:00 08/01/20 11:59 05/13/20 10:30 Apixaban (Eliquis) 2.5 mg BID ORAL 05/12/20 09:00 08/01/20 17:59 05/20/20 09:06 Aspirin (Ecotrin) 81 mg DAILY ORAL 05/12/20 09:00 06/17/20 15:59 05/20/20 09:07 Diltiazem HCl (Cardizem Tab) 60 mg EVERY 8 HOURS ORAL 05/16/20 06:00 06/15/20 05:59 05/20/20 06:01 Meropenem 500 mg/ Sodium Chloride 55 ml @ 110 mls/hr Q12HR IVPB 05/15/20 13:00 05/22/20 12:59 05/20/20 09:07 Methylprednisolone Sodium Succinate (Solu-MEDROL) 30 mg DAILY IVP 05/19/20 09:00 08/17/20 08:59 05/20/20 09:07 Pantoprazole (Protonix) 40 mg DAILY ORAL 05/12/20 09:00 06/02/20 15:59 05/20/20 09:07 Salmeterol Xinafoate/ Fluticasone (Advair 100/50 Diskus) 1 puffs BIDRT INH 05/11/20 22:00 08/09/20 21:59 05/16/20 09:02 Camilo Cameron MD May 20, 2020 11:35
--- NOTE | 2020-05-20 11:35 | NUR ---
NURSE NOTES: Dr Cameron here to see the patient. Updated her with patient's current condition. No new orders for now.
--- NOTE | 2020-05-20 11:54 | NUR ---
RESPIRATORY NOTES PT placed on SBT - CPAP 5, PS 8. PT was unable to generate adequate tidal volumes - <150. PT then placed back onto previous vent settings. DAMIAN Tellez aware. Will continue to monitor.
--- NOTE | 2020-05-20 12:18 | NUR ---
NURSE NOTES: Patient failed weaning with CPAP, PS 8 as per RT. Patient lasted less than 5 minutes with low volume.
--- NOTE | 2020-05-20 12:57 | NUR ---
NURSE NOTES: Cleaned patient for 1 moderate loose soft dark brown BM. Turned and repositioned patient.
[2020-05-20] MEDS: Fluconazole 100mg tab ORAL SCH (13:19)
--- NOTE | 2020-05-20 13:19 | NUR ---
NURSE NOTES: Cardizem held since BP is 97/53. Patient is sleeping in bed. O2 sat 100% on FiO2 30%. Will continue to monitor.
[2020-05-20] MEDS ORDERED: NS 275ml ONE (13:31)
--- NOTE | 2020-05-20 14:42 | Surgery Progress Note ---
Surgery Progress Note Subjective Additional Comments ill appearing no n/v labs noted imaging reviewed Objective Last 24 Hour Vital Signs Date Time Temp Pulse Resp B/P (MAP) Pulse Ox O2 Delivery O2 Flow Rate FiO2 05/20/20 14:00 97 14 102/59 (73) 100 05/20/20 13:18 98 97/53 05/20/20 13:00 98 14 97/53 (68) 100 05/20/20 12:04 100 05/20/20 12:00 Mechanical Ventilator Mechanical Ventilator 05/20/20 12:00 98.8 100 14 107/51 (69) 100 05/20/20 12:00 30 05/20/20 11:54 100 05/20/20 11:20 103 14 30 05/20/20 11:00 106 15 126/59 (81) 100 05/20/20 10:00 100 16 103/57 (72) 100 05/20/20 09:00 99 14 98/50 (66) 100 05/20/20 08:06 104 05/20/20 08:00 Mechanical Ventilator Mechanical Ventilator 05/20/20 08:00 99.0 105 14 105/52 (69) 100 05/20/20 08:00 30 05/20/20 07:05 104 14 30 05/20/20 07:00 105 14 105/57 (73) 100 05/20/20 06:01 110 98/51 05/20/20 06:00 102 14 101/56 (71) 100 05/20/20 05:00 105 14 103/65 (78) 100 05/20/20 04:00 99.6 106 16 109/58 (75) 100 05/20/20 04:00 30 05/20/20 04:00 Mechanical Ventilator Mechanical Ventilator 05/20/20 04:00 108 05/20/20 03:00 109 14 102/49 (66) 100 05/20/20 02:53 100 16 30 05/20/20 02:00 103 14 105/50 (68) 100 05/20/20 01:00 102 14 101/58 (72) 100 05/20/20 00:00 Mechanical Ventilator Mechanical Ventilator 05/20/20 00:00 30 05/20/20 00:00 99.0 101 14 95/51 (66) 100 05/20/20 00:00 104 05/19/20 23:00 103 14 99/50 (66) 100 05/19/20 22:53 102 14 30 05/19/20 22:00 100 14 96/52 (67) 100 05/19/20 21:42 108 95/51 05/19/20 21:00 106 14 102/52 (69) 100 05/19/20 21:00 108 05/19/20 20:00 99.4 99 14 95/55 (68) 100 05/19/20 20:00 Mechanical Ventilator Mechanical Ventilator 05/19/20 20:00 30 05/19/20 19:27 101 18 30 05/19/20 19:00 101 14 90/59 (69) 100 05/19/20 18:00 104 14 100/51 (67) 100 05/19/20 17:00 105 14 92/50 (64) 100 05/19/20 16:00 30 05/19/20 16:00 99.0 105 14 103/56 (72) 100 05/19/20 16:00 Mechanical Ventilator Mechanical Ventilator 05/19/20 15:45 99 05/19/20 15:28 104 14 30 05/19/20 15:00 102 14 106/57 (73) 100 05/19/20 14:53 94 95/45 I&O Intake and Output 05/19/20 05/20/20 19:00 07:00 Intake Total 400 ml 570 ml Output Total 210 ml 355 ml Balance 190 ml 215 ml Free Water 150 ml IV Total 55 ml Tube Feeding 245 ml 420 ml Other 100 ml Output Urine Total 210 ml 355 ml # Bowel Movements 4 4 Dressing: other Wound: other Cardiovascular: RSR Respiratory: decreased breath sounds Abdomen: soft, present bowel sounds, non-distended Extremities: no tenderness, no cyanosis Laboratory Tests Test 05/20/20 05:35 05/20/20 05:37 White Blood Count 23.3 K/UL (4.8-10.8) *H Red Blood Count 4.21 M/UL (4.20-5.40) Hemoglobin 11.8 G/DL (12.0-16.0) L Hematocrit 36.1 % (37.0-47.0) L Mean Corpuscular Volume 86 FL (80-99) Mean Corpuscular Hemoglobin 28.0 PG (27.0-31.0) Mean Corpuscular Hemoglobin Concent 32.7 G/DL (32.0-36.0) Red Cell Distribution Width 18.5 % (11.6-14.8) H Platelet Count 203 K/UL (150-450) Mean Platelet Volume 7.1 FL (6.5-10.1) Neutrophils (%) (Auto) % (45.0-75.0) Lymphocytes (%) (Auto) % (20.0-45.0) Monocytes (%) (Auto) % (1.0-10.0) Eosinophils (%) (Auto) % (0.0-3.0) Basophils (%) (Auto) % (0.0-2.0) Differential Total Cells Counted 100 Neutrophils % (Manual) 96 % (45-75) H Lymphocytes % (Manual) 1 % (20-45) L Monocytes % (Manual) 3 % (1-10) Eosinophils % (Manual) 0 % (0-3) Basophils % (Manual) 0 % (0-2) Band Neutrophils 0 % (0-8) Nucleated Red Blood Cells 1 /100 WBC Platelet Estimate Adequate Platelet Morphology Normal Anisocytosis 1+ Sodium Level 150 MMOL/L (136-145) H Potassium Level 3.8 MMOL/L (3.5-5.1) Chloride Level 113 MMOL/L (98-107) H Carbon Dioxide Level 27 MMOL/L (21-32) Anion Gap 10 mmol/L (5-15) Blood Urea Nitrogen 117 mg/dL (7-18) H Creatinine 2.7 MG/DL (0.55-1.30) H Estimat Glomerular Filtration Rate 20.6 mL/min (>60) Glucose Level 243 MG/DL (74-106) H Calcium Level 8.4 MG/DL (8.5-10.1) L Total Bilirubin 0.6 MG/DL (0.2-1.0) Aspartate Amino Transf (AST/SGOT) 115 U/L (15-37) H Alanine Aminotransferase (ALT/SGPT) 311 U/L (12-78) H Alkaline Phosphatase 195 U/L (46-116) H Total Protein 4.5 G/DL (6.4-8.2) L Albumin 1.9 G/DL (3.4-5.0) L Globulin 2.6 g/dL Albumin/Globulin Ratio 0.7 (1.0-2.7) L Plan Problems: (1) Elevated troponin (2) Atrial fibrillation with RVR (3) COVID-19 Assessment & Plan: ++ as per pulm and ID DAILY ESTIMATED NEEDS: Needs based on Critical Care, ARF/ 56kg abw 22-28 kcals/kg 6896-9430 total kcals 0.8-1.5 (increase w/ renal improvement) g protein/kg 45-84 g total protein 25-30 mL/kg 8313-1109 total fluid mLs NUTRITION DIAGNOSIS: * Altered nutrition related lab values r/t clinical status as evidenced by elev BUN(82), creat(3.8) trending up, critical ABG (low pH, elev CO2)-> now improved. * Swallowing difficulty R/T respiratory status as evidenced by s/p oral intubation, on OGT feeds. 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: HOOP CUTTER eval post extubation ENTERAL NUTRITION RECOMMENDATIONS: Nepro @ 35ml/hr x 24 hrs to provide 840ml, 1512kcal, 68g prot, 610ml free water * W/ worsening renal fxn, rec to continue Nepro * As tolerated, increase goal rate to 35ml/hr x 24 hrs to meet 100% est kcal/prot needs ADDITIONAL RECOMMENDATIONS: 1) Calibrated bedscale wt 2) Monitor renal fxn and lytes, need to continue Nepro Creat trending up 3) Rec niss w/ solumedrol (4) Community acquired pneumonia (5) COPD (chronic obstructive pulmonary disease) (6) Pulmonary fibrosis (7) Asthma (8) History of asthma (9) NSTEMI (non-ST elevated myocardial infarction) (10) Moderate to severe pulmonary hypertension (11) Asthma exacerbation (12) Abnormal LFTs Assessment & Plan: afebrile, HD stable labs noted lft's elevated US reviewed exam benign gb likely reactive from underlying pathology unlikely cholecystitis clinically fluid overload trend labs will monitor exam clinically covid + prognosis guarded cxr reviewed on abx worsening plan repeat US - noted cannot get hida given covid labs noted worsening leukocytosis Gallbladder demonstrates wall thickening and wall edema, gallbladder wall measuring up to 6 mm thick. There are gallstones. Sonographic Escoto's sign is negative. Common bile duct measures 3 mm in diameter. No intrahepatic biliary ductal dilatation. Liver demonstrates normal echogenicity, no focal abnormality. Portal vein and hepatic veins are patent. Pancreas is unremarkable. Spleen is unremarkable. Left kidney measures 9.2 cm in length. Right kidney measures 9.9 cm length. Both kidneys demonstrate normal echogenicity. There is no hydronephrosis. Small cyst is seen in the right kidney. . Abdominal aorta was not imaged . There is trace ascites. There is a small right pleural effusion incidentally noted Impression: Small right pleural effusion. Trace ascites Cholelithiasis. Gallbladder wall thickening may be related to hemodynamic factor s causing the pleural fluid and ascites, but could also indicate acute cholecystitis. Consider nuclear medicine hepatobiliary scan if there is high clinical suspicion. Negative for dilated bile ducts Small right renal cyst incidentally noted (13) Acute respiratory failure with hypoxia Quentin Sanchez May 20, 2020 14:42
--- NOTE | 2020-05-20 16:21 | NUR ---
CASE MANAGEMENT:REVIEW 05/20/20 SI;REINTUBATED 05/12/20 . ATRIAL FIBRILLATION W/RVR NSTEMI. COVID-19 + PNEUMONIA.RENAL FAILURE . LEUKOCYTOSIS ON SOLUMEDROL 99.6 106 16 109/58 100% MECHANICAL VENT FIO2 30% WBC 23.3 NA+150 CL-113 BUN/CREAT 117/2.7 BG 243 CA+ 8.4 AST/ALT 115/311 ALB 1.9 IS;IV MEROPENEM BID IV SOLU MEDROL QD 60mg ALBUTEROL MDI INH Q4HR/PRN CARDIZEM PO TID ELIQUIS PO BID 05/19 CHEST [id number] left basilar infiltrate. Note that there is suggestion of bronchiectasis which may indicate a chronic component to this. Unchanged right upper lobe infiltrates, more likely acute. \: TRANSFERED TO ICU 05/11/20 TRANSFERRED FROM MED SURG TO RK 05/11/20 @ 0812 RK STATUS DCP;FROM HOME PLAN: TRACHEOSTOMY IF NO IMPROVEMENT MONITOR WBC ~INCREASING
--- NOTE | 2020-05-20 16:30 | NUR ---
NURSE NOTES: Daughter came to visit the patient. Spoke with the daughter regarding patient's current condition. Daughter at the door watching the patient.
--- NOTE | 2020-05-20 17:22 | Pulmonology Progress Note ---
Subjective ROS Limited/Unobtainable: Yes Constitutional: Denies: fever Gastrointestinal/Abdominal: Denies: nausea, vomiting, diarrhea Musculoskeletal: Denies: pain Allergies: Coded Allergies: CIPROFLOXACIN (Verified Allergy, Unknown, 09/27/17) All Systems: reviewed and negative except above Subjective on vent- still not weaning well and failed comfortable sedated reduced LOC ICU care reviewed Objective Last 24 Hour Vital Signs Date Time Temp Pulse Resp B/P (MAP) Pulse Ox O2 Delivery O2 Flow Rate FiO2 05/20/20 16:00 Mechanical Ventilator Mechanical Ventilator 05/20/20 16:00 99.3 99 15 105/58 (74) 100 05/20/20 16:00 30 05/20/20 15:22 96 05/20/20 15:00 96 14 97/52 (67) 100 05/20/20 15:00 99 15 30 05/20/20 14:00 97 14 102/59 (73) 100 05/20/20 13:18 98 97/53 05/20/20 13:00 98 14 97/53 (68) 100 05/20/20 12:04 100 05/20/20 12:00 Mechanical Ventilator Mechanical Ventilator 05/20/20 12:00 98.8 100 14 107/51 (69) 100 05/20/20 12:00 30 05/20/20 11:54 100 05/20/20 11:20 103 14 30 05/20/20 11:00 106 15 126/59 (81) 100 05/20/20 10:00 100 16 103/57 (72) 100 05/20/20 09:00 99 14 98/50 (66) 100 05/20/20 08:06 104 05/20/20 08:00 Mechanical Ventilator Mechanical Ventilator 05/20/20 08:00 99.0 105 14 105/52 (69) 100 05/20/20 08:00 30 05/20/20 07:05 104 14 30 05/20/20 07:00 105 14 105/57 (73) 100 05/20/20 06:01 110 98/51 05/20/20 06:00 102 14 101/56 (71) 100 05/20/20 05:00 105 14 103/65 (78) 100 05/20/20 04:00 99.6 106 16 109/58 (75) 100 05/20/20 04:00 30 05/20/20 04:00 Mechanical Ventilator Mechanical Ventilator 05/20/20 04:00 108 05/20/20 03:00 109 14 102/49 (66) 100 05/20/20 02:53 100 16 30 05/20/20 02:00 103 14 105/50 (68) 100 05/20/20 01:00 102 14 101/58 (72) 100 05/20/20 00:00 Mechanical Ventilator Mechanical Ventilator 05/20/20 00:00 30 05/20/20 00:00 99.0 101 14 95/51 (66) 100 05/20/20 00:00 104 05/19/20 23:00 103 14 99/50 (66) 100 05/19/20 22:53 102 14 30 05/19/20 22:00 100 14 96/52 (67) 100 05/19/20 21:42 108 95/51 05/19/20 21:00 106 14 102/52 (69) 100 05/19/20 21:00 108 05/19/20 20:00 99.4 99 14 95/55 (68) 100 05/19/20 20:00 Mechanical Ventilator Mechanical Ventilator 05/19/20 20:00 30 05/19/20 19:27 101 18 30 05/19/20 19:00 101 14 90/59 (69) 100 05/19/20 18:00 104 14 100/51 (67) 100 Intake and Output 05/19/20 05/20/20 19:00 07:00 Intake Total 400 ml 570 ml Output Total 210 ml 355 ml Balance 190 ml 215 ml Free Water 150 ml IV Total 55 ml Tube Feeding 245 ml 420 ml Other 100 ml Output Urine Total 210 ml 355 ml # Bowel Movements 4 4 Objective deferred due to COVID Microbiology Date/Time Source Procedure Growth Status 05/19/20 07:01 Urine,Clean Catch Urine Culture - Preliminary Yeast Species Resulted Laboratory Tests 05/20/20 05:35: White Blood Count 23.3*H, Red Blood Count 4.21, Hemoglobin 11.8L, Hematocrit 36.1L, Mean Corpuscular Volume 86, Mean Corpuscular Hemoglobin 28.0, Mean Corpuscular Hemoglobin Concent 32.7, Red Cell Distribution Width 18.5H, Platelet Count 203, Mean Platelet Volume 7.1, Neutrophils (%) (Auto) , Lymphocytes (%) (Auto) , Monocytes (%) (Auto) , Eosinophils (%) (Auto) , Basophils (%) (Auto) , Differential Total Cells Counted 100, Neutrophils % (Manual) 96H, Lymphocytes % (Manual) 1L, Monocytes % (Manual) 3, Eosinophils % (Manual) 0, Basophils % (Manual) 0, Band Neutrophils 0, Nucleated Red Blood Cells 1, Platelet Estimate Adequate, Platelet Morphology Normal, Anisocytosis 1+ 05/20/20 05:37: Sodium Level 150H, Potassium Level 3.8, Chloride Level 113H, Carbon Dioxide Level 27, Anion Gap 10, Blood Urea Nitrogen 117H, Creatinine 2.7H, Estimat Glomerular Filtration Rate 20.6, Glucose Level 243H, Calcium Level 8.4L, Total Bilirubin 0.6, Aspartate Amino Transf (AST/SGOT) 115H, Alanine Aminotransferase (ALT/SGPT) 311H, Alkaline Phosphatase 195H, Total Protein 4.5L, Albumin 1.9L, Globulin 2.6, Albumin/Globulin Ratio 0.7L Current Medications Medications (Trade) Dose Ordered Sig/Ghislaine Route PRN Reason Start Time Stop Time Status Last Admin Dose Admin Acetaminophen (Tylenol) 500 mg Q4H PRN ORAL Mild Pain (Pain Scale 1-3) 05/11/20 20:00 06/02/20 19:59 05/13/20 08:37 Albuterol Sulfate (Proventil MDI) 2 puff Q4H PRN INH Shortness of Breath 05/11/20 20:00 08/01/20 11:59 05/13/20 10:30 Apixaban (Eliquis) 2.5 mg BID ORAL 05/12/20 09:00 08/01/20 17:59 05/20/20 09:06 Aspirin (Ecotrin) 81 mg DAILY ORAL 05/12/20 09:00 06/17/20 15:59 05/20/20 09:07 Diltiazem HCl (Cardizem Tab) 60 mg EVERY 8 HOURS ORAL 05/16/20 06:00 06/15/20 05:59 05/20/20 06:01 Fluconazole (Diflucan) 100 mg DAILY ORAL 05/20/20 13:00 05/27/20 12:59 05/20/20 13:19 Meropenem 500 mg/ Sodium Chloride 55 ml @ 110 mls/hr Q12HR IVPB 05/15/20 13:00 05/22/20 12:59 05/20/20 09:07 Methylprednisolone Sodium Succinate (Solu-MEDROL) 30 mg DAILY IVP 05/19/20 09:00 08/17/20 08:59 05/20/20 09:07 Pantoprazole (Protonix) 40 mg DAILY ORAL 05/12/20 09:00 06/02/20 15:59 05/20/20 09:07 Salmeterol Xinafoate/ Fluticasone (Advair 100/50 Diskus) 1 puffs BIDRT INH 05/11/20 22:00 08/09/20 21:59 05/16/20 09:02 Assessment/Plan Assessment/Plan Impression: COVID-19 Chronic obstructive pulmonary disease/Asthma Community acquired pneumonia Atrial fibrillation with RVR Elevated troponin Congestive heart Failure sinus tachycardia Hypoxemia transaminitis with gallstones consider cholecystitis acute on chronic renal failure acute respiratory failure Plan ID noted Vent support/try to wean as able daily - orders written wean oxygen - low flow feeds per dietary and monitor residuals IV therapy noted Bronchodilator therapy Eliquis and monitor HH Monitor labs/ renal follow up - renal function still reduced Covid 19 Isolation- per ID nutrition and NG feeds reviewed care and optimize position change and monitor skin surgical follow up noted monitor protein levels and adjust will d/w daughter; trach if unable to wean medications/laboratory data/nursing notes/ICU care reviewed in detail note reviewed and edited care discussed with RN and RT ICU time spent >40 minutes Aaron Jefferson MD May 20, 2020 17:22
--- NOTE | 2020-05-20 17:26 | General Progress Note ---
Subjective ROS Limited/Unobtainable: No Constitutional: Reports: malaise, weakness HEENT: Reports: no symptoms Cardiovascular: Reports: no symptoms Respiratory: Reports: cough, shortness of breath, sputum Gastrointestinal/Abdominal: Reports: no symptoms Genitourinary: Reports: no symptoms Neurologic/Psychiatric: Reports: anxiety, depressed, pre-existing deficit Endocrine: Reports: no symptoms Hematologic/Lymphatic: Reports: anemia Allergies: Coded Allergies: CIPROFLOXACIN (Verified Allergy, Unknown, 09/27/17) All Systems: reviewed and negative except above Subjective no change. not tolerating wean. no fevers. wbc elevated. on ngt feeds. Na trending up. Objective Last 24 Hour Vital Signs Date Time Temp Pulse Resp B/P (MAP) Pulse Ox O2 Delivery O2 Flow Rate FiO2 05/20/20 16:00 Mechanical Ventilator Mechanical Ventilator 05/20/20 16:00 99.3 99 15 105/58 (74) 100 05/20/20 16:00 30 05/20/20 15:22 96 05/20/20 15:00 96 14 97/52 (67) 100 05/20/20 15:00 99 15 30 05/20/20 14:00 97 14 102/59 (73) 100 05/20/20 13:18 98 97/53 05/20/20 13:00 98 14 97/53 (68) 100 05/20/20 12:04 100 05/20/20 12:00 Mechanical Ventilator Mechanical Ventilator 05/20/20 12:00 98.8 100 14 107/51 (69) 100 05/20/20 12:00 30 05/20/20 11:54 100 05/20/20 11:20 103 14 30 05/20/20 11:00 106 15 126/59 (81) 100 05/20/20 10:00 100 16 103/57 (72) 100 05/20/20 09:00 99 14 98/50 (66) 100 05/20/20 08:06 104 05/20/20 08:00 Mechanical Ventilator Mechanical Ventilator 05/20/20 08:00 99.0 105 14 105/52 (69) 100 05/20/20 08:00 30 05/20/20 07:05 104 14 30 05/20/20 07:00 105 14 105/57 (73) 100 05/20/20 06:01 110 98/51 05/20/20 06:00 102 14 101/56 (71) 100 05/20/20 05:00 105 14 103/65 (78) 100 05/20/20 04:00 99.6 106 16 109/58 (75) 100 05/20/20 04:00 30 05/20/20 04:00 Mechanical Ventilator Mechanical Ventilator 05/20/20 04:00 108 05/20/20 03:00 109 14 102/49 (66) 100 05/20/20 02:53 100 16 30 05/20/20 02:00 103 14 105/50 (68) 100 05/20/20 01:00 102 14 101/58 (72) 100 05/20/20 00:00 Mechanical Ventilator Mechanical Ventilator 05/20/20 00:00 30 05/20/20 00:00 99.0 101 14 95/51 (66) 100 05/20/20 00:00 104 05/19/20 23:00 103 14 99/50 (66) 100 05/19/20 22:53 102 14 30 05/19/20 22:00 100 14 96/52 (67) 100 05/19/20 21:42 108 95/51 05/19/20 21:00 106 14 102/52 (69) 100 05/19/20 21:00 108 05/19/20 20:00 99.4 99 14 95/55 (68) 100 05/19/20 20:00 Mechanical Ventilator Mechanical Ventilator 05/19/20 20:00 30 05/19/20 19:27 101 18 30 05/19/20 19:00 101 14 90/59 (69) 100 05/19/20 18:00 104 14 100/51 (67) 100 Intake and Output 05/19/20 05/20/20 19:00 07:00 Intake Total 400 ml 570 ml Output Total 210 ml 355 ml Balance 190 ml 215 ml Free Water 150 ml IV Total 55 ml Tube Feeding 245 ml 420 ml Other 100 ml Output Urine Total 210 ml 355 ml # Bowel Movements 4 4 Laboratory Tests 05/20/20 05:35: White Blood Count 23.3*H, Red Blood Count 4.21, Hemoglobin 11.8L, Hematocrit 36.1L, Mean Corpuscular Volume 86, Mean Corpuscular Hemoglobin 28.0, Mean Corpuscular Hemoglobin Concent 32.7, Red Cell Distribution Width 18.5H, Platelet Count 203, Mean Platelet Volume 7.1, Neutrophils (%) (Auto) , Lymphocytes (%) (Auto) , Monocytes (%) (Auto) , Eosinophils (%) (Auto) , Basophils (%) (Auto) , Differential Total Cells Counted 100, Neutrophils % (Manual) 96H, Lymphocytes % (Manual) 1L, Monocytes % (Manual) 3, Eosinophils % (Manual) 0, Basophils % (Manual) 0, Band Neutrophils 0, Nucleated Red Blood Cells 1, Platelet Estimate Adequate, Platelet Morphology Normal, Anisocytosis 1+ 05/20/20 05:37: Sodium Level 150H, Potassium Level 3.8, Chloride Level 113H, Carbon Dioxide Level 27, Anion Gap 10, Blood Urea Nitrogen 117H, Creatinine 2.7H, Estimat Glomerular Filtration Rate 20.6, Glucose Level 243H, Calcium Level 8.4L, Total Bilirubin 0.6, Aspartate Amino Transf (AST/SGOT) 115H, Alanine Aminotransferase (ALT/SGPT) 311H, Alkaline Phosphatase 195H, Total Protein 4.5L, Albumin 1.9L, Globulin 2.6, Albumin/Globulin Ratio 0.7L Height (Feet): 5 Height (Inches): 3.00 Weight (Pounds): 160 Objective General Appearance: WD/WN, no apparent distress, alert. orally intubated EENT: PERRL/EOMI Neck: non-tender, normal alignment, supple Cardiovascular: normal rate, regular rhythm Respiratory/Chest: chest wall non-tender, lungs clear, normal breath sounds, no respiratory distress, no accessory muscle use Abdomen: normal bowel sounds, non tender, soft, no organomegaly Edema: no edema noted Arm (L), no edema noted Arm (R) Neurologic: suction roller II-XII grossly normal, alert, oriented x 3, responsive Skin: normal pigmentation Lymphatic: normal anterior cervical (L), normal anterior cervical (R) Assessment/Plan Problem List: (1) Pulmonary fibrosis ICD Codes: J84.10 - Pulmonary fibrosis, unspecified SNOMED: 68745595 (2) History of asthma ICD Codes: Z87.09 - Personal history of other diseases of the respiratory system SNOMED: 645166153 (3) Asthma ICD Codes: J45.909 - Unspecified asthma, uncomplicated SNOMED: 750664948 (4) NSTEMI (non-ST elevated myocardial infarction) ICD Codes: I21.4 - Non-ST elevation (NSTEMI) myocardial infarction SNOMED: 735566135 (5) Elevated troponin ICD Codes: R79.89 - Other specified abnormal findings of blood chemistry SNOMED: 715063520, 823418572, 133077685 (6) COPD (chronic obstructive pulmonary disease) ICD Codes: J44.9 - Chronic obstructive pulmonary disease, unspecified SNOMED: 48148469 (7) Atrial fibrillation with RVR ICD Codes: I48.91 - Unspecified atrial fibrillation SNOMED: 614177865106206 (8) Community acquired pneumonia ICD Codes: J18.9 - Pneumonia, unspecified organism SNOMED: 071329205 Status: stable Assessment/Plan: cont current rx vent support resp rx and suctioning wean as able iv abx per ID monitor elevated wbc- ?due to steroids. wean per pulm monitor cxr tube feeds stress ulcer prophylaxis monitor labs/renal fxn- improving hypotonic ivf replace lytes resp rx/mdi Bradford Linn MD May 20, 2020 17:25
--- NOTE | 2020-05-20 19:08 | NUR ---
NURSE HAND-OFF REPORT: Latest Vital Signs: Temperature 99.3 , Pulse 95 , B/P 97 /53 , Respiratory Rate 14 , O2 SAT 100 , Mechanical Ventilator, FiO2 30%. Vital Sign Comment: EKG Rhythm: Sinus Rhythm Rhythm change?: N MD Notified?: MD Response: Latest Lechuga Fall Score: 50 Fall Risk: High Risk Safety Measures: Call light Within Reach, Bed Alarm Zone 1, Side Rails Side Rails x3, Bed position Low and Locked. Fall Precautions: Yellow Socks Door Sign Patient Fall Education Report given to DAMIAN Stephen.
--- NOTE | 2020-05-20 19:09 | NUR ---
NURSE NOTES: Received patient from Shama Tineo RN. Will continue plan of care.
--- NOTE | 2020-05-20 20:00 | NUR ---
NURSE NOTES: Patient is asleep but awakens upon entering room. Intubated; ETT 7.5 @ 20cm to the lipline to vent with settings of AC:14, TV:500, FiO2:30%, PEEP:5, O2sat:100%. OGT in place and running tube feed of Nepro @ 35ml/hr. [place] intact and drainging. IV site left forearm 20g [id number] @ 75ml/hr. Isolation precautions noted. HYDROGEOLOGY PROFESSOR restraints on for safety for prevention of pulling on lines and tubes and for safety. Bed low, locked and alarm is on.
--- NOTE | 2020-05-20 22:00 | NUR ---
NURSE NOTES: BP: 98/51, Cardizem held for SBP is out of parameters. Patient awakens through voice; alert and oriented. Daughter came to see patient and to give messages. Patient motioned that she acknowledged messages. OGT flushes and patent.
[2020-05-21] VITALS (24 sets, daily range): BP systolic 92–109; BP diastolic 46–66
--- NOTE | 2020-05-21 | NUR ---
NURSE NOTES: No changes in patient condition. Suctioning provided. BP:94/50, HR:96, O2sat:100%. Patient looks comfortable.
--- NOTE | 2020-05-21 00:52 | Cardiology Progress Note ---
Subjective DATE OF SERVICE: May 20, 2020 Condition remains critical; patient remains on [facility] ventilation. Monitor: AFib with episodes of RVR and nonsustained VTach. Lactic acidosis resolved BP remains tenuous, as well as acid-base status. Episodes of tachyarrhythmias noted. CXR (05/19) reviewed: bilateral patchy infiltrates, left appears chronic, but right acute and worse. Elevated WBC on steroids Rising Na+ levels, and now on hypotonic IVFluids Objective Last 24 Hour Vital Signs Date Time Temp Pulse Resp B/P (MAP) Pulse Ox O2 Delivery O2 Flow Rate FiO2 05/21/20 00:00 98.5 93 15 94/50 (65) 100 05/21/20 00:00 Mechanical Ventilator Mechanical Ventilator 05/20/20 23:19 101 15 30 05/20/20 23:00 100 14 99/51 (67) 100 05/20/20 22:00 89 14 98/51 (67) 100 05/20/20 21:32 94 98/50 05/20/20 21:00 91 14 102/60 (74) 100 05/20/20 20:00 30 05/20/20 20:00 98.3 92 14 98/53 (68) 100 05/20/20 20:00 Mechanical Ventilator Mechanical Ventilator 05/20/20 19:49 95 05/20/20 19:30 93 15 30 05/20/20 19:00 95 14 97/53 (68) 100 05/20/20 18:00 100 19 107/57 (74) 100 05/20/20 17:00 94 12 102/57 (72) 100 05/20/20 16:00 Mechanical Ventilator Mechanical Ventilator 05/20/20 16:00 99.3 99 15 105/58 (74) 100 05/20/20 16:00 30 05/20/20 15:22 96 05/20/20 15:00 96 14 97/52 (67) 100 05/20/20 15:00 99 15 30 05/20/20 14:00 97 14 102/59 (73) 100 05/20/20 13:18 98 97/53 05/20/20 13:00 98 14 97/53 (68) 100 05/20/20 12:04 100 05/20/20 12:00 Mechanical Ventilator Mechanical Ventilator 05/20/20 12:00 98.8 100 14 107/51 (69) 100 9/23/20 12:00 30 05/20/20 11:54 100 05/20/20 11:20 103 14 30 05/20/20 11:00 106 15 126/59 (81) 100 05/20/20 10:00 100 16 103/57 (72) 100 05/20/20 09:00 99 14 98/50 (66) 100 05/20/20 08:06 104 05/20/20 08:00 Mechanical Ventilator Mechanical Ventilator 05/20/20 08:00 99.0 105 14 105/52 (69) 100 05/20/20 08:00 30 05/20/20 07:05 104 14 30 05/20/20 07:00 105 14 105/57 (73) 100 05/20/20 06:01 110 98/51 05/20/20 06:00 102 14 101/56 (71) 100 05/20/20 05:00 105 14 103/65 (78) 100 05/20/20 04:00 99.6 106 16 109/58 (75) 100 05/20/20 04:00 30 05/20/20 04:00 Mechanical Ventilator Mechanical Ventilator 05/20/20 04:00 108 05/20/20 03:00 109 14 102/49 (66) 100 05/20/20 02:53 100 16 30 05/20/20 02:00 103 14 105/50 (68) 100 05/20/20 01:00 102 14 101/58 (72) 100 ROS: unchanged from my eval of 05/03/20 HEENT: Orally intubated, Mechanically Ventilated, Thin secretions ET Tube LUNGS: no accessory muscle use, expiratory wheezing, diminished breath sounds CARDIAC: normal S1 and S2, no murmur, irregularly irregular ABDOMEN: normal bowel sounds, non tender, soft, no organomegaly EXTREMITIES: no calf tenderness, +1 edema Laboratory Tests Test 05/20/20 05:35 05/20/20 05:37 White Blood Count 23.3 K/UL (4.8-10.8) *H Red Blood Count 4.21 M/UL (4.20-5.40) Hemoglobin 11.8 G/DL (12.0-16.0) L Hematocrit 36.1 % (37.0-47.0) L Mean Corpuscular Volume 86 FL (80-99) Mean Corpuscular Hemoglobin 28.0 PG (27.0-31.0) Mean Corpuscular Hemoglobin Concent 32.7 G/DL (32.0-36.0) Red Cell Distribution Width 18.5 % (11.6-14.8) H Platelet Count 203 K/UL (150-450) Mean Platelet Volume 7.1 FL (6.5-10.1) Neutrophils (%) (Auto) % (45.0-75.0) Lymphocytes (%) (Auto) % (20.0-45.0) Monocytes (%) (Auto) % (1.0-10.0) Eosinophils (%) (Auto) % (0.0-3.0) Basophils (%) (Auto) % (0.0-2.0) Differential Total Cells Counted 100 Neutrophils % (Manual) 96 % (45-75) H Lymphocytes % (Manual) 1 % (20-45) L Monocytes % (Manual) 3 % (1-10) Eosinophils % (Manual) 0 % (0-3) Basophils % (Manual) 0 % (0-2) Band Neutrophils 0 % (0-8) Nucleated Red Blood Cells 1 /100 WBC Platelet Estimate Adequate Platelet Morphology Normal Anisocytosis 1+ Sodium Level 150 MMOL/L (136-145) H Potassium Level 3.8 MMOL/L (3.5-5.1) Chloride Level 113 MMOL/L (98-107) H Carbon Dioxide Level 27 MMOL/L (21-32) Anion Gap 10 mmol/L (5-15) Blood Urea Nitrogen 117 mg/dL (7-18) H Creatinine 2.7 MG/DL (0.55-1.30) H Estimat Glomerular Filtration Rate 20.6 mL/min (>60) Glucose Level 243 MG/DL (74-106) H Calcium Level 8.4 MG/DL (8.5-10.1) L Total Bilirubin 0.6 MG/DL (0.2-1.0) Aspartate Amino Transf (AST/SGOT) 115 U/L (15-37) H Alanine Aminotransferase (ALT/SGPT) 311 U/L (12-78) H Alkaline Phosphatase 195 U/L (46-116) H Total Protein 4.5 G/DL (6.4-8.2) L Albumin 1.9 G/DL (3.4-5.0) L Globulin 2.6 g/dL Albumin/Globulin Ratio 0.7 (1.0-2.7) L Microbiology Date/Time Source Procedure Growth Status 05/19/20 07:01 Urine,Clean Catch Urine Culture - Preliminary Yeast Species Resulted Assessment/Plan Assessment/Plan Acute on chronic respiratory acidosis Acute respiratory failure Shock LE edema due to severe pulmonary hypertension and right heart strain COPD exacerb with active bronchospasm Lactic acidosis COVID 19 PNA Acute on chr renal failure - now with hyperkalemia Chronic systolic/diastolic CHF Pulmonary fibrosis with chronic hypoxia Paroxysmal AFib with RVR Hx Multifocal atrial arrhythmias Pulmonary HTN - severe Hx NSVTach Acute myocardial ischemia Vent support with on-going weaning efforts Hold diltiazem for low BP, but titrate for optimal rate control Steroids per pulmonary Inhaled bronchodilators IVF adjusted Reassess for diuresis; not presently indicated Full anticoagulation for cardioembolic prophyl Isolation Anti-viral rx per Simone Shirley MD May 21, 2020 00:52
--- NOTE | 2020-05-21 02:00 | NUR ---
NURSE NOTES: Bed bath given, linens changed, repositioned, oral care and suctioning provided. Patient is comfortable. BP:108/58. HR:98, FiO2:100%
--- NOTE | 2020-05-21 04:00 | NUR ---
NURSE NOTES: No changes in condition. Blood drawn peripherally for AM results. Repositioned. Patient is compliant and comfortable.
[2020-05-21] MEDS: dilTIAZem HCl 60mg tab ORAL SCH ×3 (05:18→22:00)
[2020-05-21 05:45] LABS: HEMATOCRIT 32.5 % (37.0-47.0); HEMOGLOBIN 10.7 G/DL (12.0-16.0); MEAN CORPUSCULAR VOLUME 85 FL (80-99); PLATELET COUNT 158 K/UL (150-450); RED CELL DISTRIBUTION WIDTH 17.9 % (11.6-14.8); WHITE BLOOD COUNT 19.2 K/UL (4.8-10.8)
[2020-05-21 06:00] LABS: CALCIUM 8.3 MG/DL (8.5-10.1); CREATININE 2.4 MG/DL (0.55-1.30); POTASSIUM 3.9 MMOL/L (3.5-5.1)
--- NOTE | 2020-05-21 06:15 | NUR ---
NURSE NOTES: Patient changed, partial bath given, repositioned. Refused gown and cover up b/c it is too hot in the room. Covered partially with gown and towel which she settled with after explaining to her that she needs to cover up for privacy purposes.
--- NOTE | 2020-05-21 06:51 | NUR ---
NURSE NOTES: Dr. Linn came to see and assess patient. Updated that patient is not tolerating weaning on CPAP last morning and to try SIMV mode. Informed RT.
--- NOTE | 2020-05-21 06:54 | General Progress Note ---
Subjective ROS Limited/Unobtainable: Yes Constitutional: Reports: malaise, weakness HEENT: Reports: no symptoms Respiratory: Reports: cough, shortness of breath, sputum Gastrointestinal/Abdominal: Reports: difficulty swallowing Genitourinary: Reports: no symptoms Neurologic/Psychiatric: Reports: pre-existing deficit Endocrine: Reports: no symptoms Hematologic/Lymphatic: Reports: anemia Allergies: Coded Allergies: CIPROFLOXACIN (Verified Allergy, Unknown, 09/27/17) All Systems: reviewed and negative except above Subjective no events. failed wean. Na trending down. Cr trending down. no fevers. no bleeding. opens eyes. follows commands. Objective Last 24 Hour Vital Signs Date Time Temp Pulse Resp B/P (MAP) Pulse Ox O2 Delivery O2 Flow Rate FiO2 05/21/20 06:00 100 15 106/55 (72) 100 05/21/20 05:18 97 97/51 05/21/20 05:00 91 14 100/51 (67) 100 05/21/20 04:01 101 05/21/20 04:00 98.1 100 15 109/54 (72) 100 05/21/20 04:00 30 05/21/20 04:00 Mechanical Ventilator Mechanical Ventilator 05/21/20 03:07 91 14 30 05/21/20 03:00 91 15 96/55 (69) 100 05/21/20 02:00 95 14 108/58 (75) 100 05/21/20 01:00 98 14 95/55 (68) 100 05/21/20 00:00 98.5 93 15 94/50 (65) 100 05/21/20 00:00 Mechanical Ventilator Mechanical Ventilator 05/20/20 23:24 97 05/20/20 23:19 101 15 30 05/20/20 23:00 100 14 99/51 (67) 100 05/20/20 22:00 89 14 98/51 (67) 100 05/20/20 21:32 94 98/50 05/20/20 21:00 91 14 102/60 (74) 100 05/20/20 20:00 30 05/20/20 20:00 98.3 92 14 98/53 (68) 100 05/20/20 20:00 Mechanical Ventilator Mechanical Ventilator 05/20/20 19:49 95 05/20/20 19:30 93 15 30 05/20/20 19:00 95 14 97/53 (68) 100 05/20/20 18:00 100 19 107/57 (74) 100 05/20/20 17:00 94 12 102/57 (72) 100 05/20/20 16:00 Mechanical Ventilator Mechanical Ventilator 05/20/20 16:00 99.3 99 15 105/58 (74) 100 05/20/20 16:00 30 05/20/20 15:22 96 05/20/20 15:00 96 14 97/52 (67) 100 05/20/20 15:00 99 15 30 05/20/20 14:00 97 14 102/59 (73) 100 05/20/20 13:18 98 97/53 05/20/20 13:00 98 14 97/53 (68) 100 05/20/20 12:04 100 05/20/20 12:00 Mechanical Ventilator Mechanical Ventilator 05/20/20 12:00 98.8 100 14 107/51 (69) 100 05/20/20 12:00 30 05/20/20 11:54 100 05/20/20 11:20 103 14 30 05/20/20 11:00 106 15 126/59 (81) 100 05/20/20 10:00 100 16 103/57 (72) 100 05/20/20 09:00 99 14 98/50 (66) 100 05/20/20 08:06 104 05/20/20 08:00 Mechanical Ventilator Mechanical Ventilator 05/20/20 08:00 99.0 105 14 105/52 (69) 100 05/20/20 08:00 30 05/20/20 07:05 104 14 30 05/20/20 07:00 105 14 105/57 (73) 100 Intake and Output 05/20/20 05/21/20 19:00 07:00 Intake Total 728.75 ml 1250 ml Output Total 585 ml 495 ml Balance 143.75 ml 755 ml Free Water 0 ml 60 ml IV Total 158.75 ml 805 ml Tube Feeding 420 ml 385 ml Other 150 ml Output Urine Total 585 ml 495 ml # Bowel Movements 2 3 Laboratory Tests 05/21/20 04:00: White Blood Count 19.2H, Red Blood Count 3.80L, Hemoglobin 10.7L, Hematocrit 32.5L, Mean Corpuscular Volume 85, Mean Corpuscular Hemoglobin 28.3, Mean Corpuscular Hemoglobin Concent 33.1, Red Cell Distribution Width 17.9H, Platelet Count 158, Mean Platelet Volume 6.3L, Neutrophils (%) (Auto) , Lymphocytes (%) (Auto) , Monocytes (%) (Auto) , Eosinophils (%) (Auto) , Basophils (%) (Auto) , Neutrophils % (Manual) [Pending], Lymphocytes % (Manual) [Pending], Platelet Estimate [Pending], Platelet Morphology [Pending], Sodium Level 146H, Potassium Level 3.9, Chloride Level 110H, Carbon Dioxide Level 27, Anion Gap 9, Blood Urea Nitrogen 115H, Creatinine 2.4H, Estimat Glomerular Filtration Rate 23.5, Glucose Level 339H, Calcium Level 8.3L Height (Feet): 5 Height (Inches): 3.00 Weight (Pounds): 160 Objective General Appearance: WD/WN, no apparent distress, alert. 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 coxswain II-XII grossly normal, alert, oriented x 3, responsive Skin: normal pigmentation Lymphatic: normal anterior cervical (L), normal anterior cervical (R) Assessment/Plan Problem List: (1) Pulmonary fibrosis ICD Codes: J84.10 - Pulmonary fibrosis, unspecified SNOMED: 90853806 (2) History of asthma ICD Codes: Z87.09 - Personal history of other diseases of the respiratory system SNOMED: 289226115 (3) Asthma ICD Codes: J45.909 - Unspecified asthma, uncomplicated SNOMED: 082420295 (4) NSTEMI (non-ST elevated myocardial infarction) ICD Codes: I21.4 - Non-ST elevation (NSTEMI) myocardial infarction SNOMED: 736511463 (5) Elevated troponin ICD Codes: R79.89 - Other specified abnormal findings of blood chemistry SNOMED: 886049551, 946214099, 286662335 (6) COPD (chronic obstructive pulmonary disease) ICD Codes: J44.9 - Chronic obstructive pulmonary disease, unspecified SNOMED: 30547468 (7) Atrial fibrillation with RVR ICD Codes: I48.91 - Unspecified atrial fibrillation SNOMED: 032786487101532 (8) Community acquired pneumonia ICD Codes: J18.9 - Pneumonia, unspecified organism SNOMED: 906615591 Status: stable Assessment/Plan: cont iv abx dc hypotonic fluids increased water flushes monitor renal fxn/lytes ngt feeds wean vent as able ?simv trial keep dry dvt/stress ulcer prophylaxis skin care turn q2 Bradford Linn MD May 21, 2020 06:54
--- NOTE | 2020-05-21 07:03 | NUR ---
RESPIRATORY THERAPY NOTES: Started weaning Patient at 0703, placed on SIMV Rate 10, VT 500, PS +12, FIO2 30%, PEEP +5. Spont VT >400mL, VE 6.1, HR 101, SAT 100%. Patient tolerating well and stable. Will continue to monitor.
--- NOTE | 2020-05-21 07:14 | NUR ---
NURSE HAND-OFF REPORT: Latest Vital Signs: Temperature 98.1 , Pulse 100 , B/P 96 /52 , Respiratory Rate 15 , O2 SAT 100 , Mechanical Ventilator, O2 Flow Rate 4.0 . Vital Sign Comment: Stable EKG Rhythm: Sinus Rhythm Rhythm change?: N Notified?: Tracy Linn MD Response: No New Orders Received Latest Lechuga Fall Score: 50 Fall Risk: High Risk Safety Measures: Call light Within Reach, Bed Alarm Zone 1, Side Rails Side Rails x3, Bed position Low and Locked. Fall Precautions: Yellow Socks Door Sign Patient Fall Education Report given to .
--- NOTE | 2020-05-21 08:01 | NUR ---
RESPIRATORY THERAPIST NOTES: Weaning stopped at 0800. SPON VT <150mL. Placed back onto ACVC 14, 500, 30%, PEEP +5.
--- NOTE | 2020-05-21 08:05 | NUR ---
NURSE NOTES: Dr. Jefferson made aware of patient weaning trial on SIMV of 10, TV: 500, PS of 12 and FIO2 of 30% with peep of 5, lasted for approximately an hour with tv ranging from 250-375mls per breath, patient remained with saturations of 97-99%, will attempt weaning trial in the afternoon.
[2020-05-21] MEDS: Aspirin EC 81mg tab ORAL SCH (08:23)
[2020-05-21] MEDS: Fluconazole 100mg tab ORAL SCH (08:23)
[2020-05-21] MEDS: Eliquis 2.5mg tablet ORAL SCH ×2 (08:23→18:02)
[2020-05-21] MEDS: Meropenem 500 MG in NS 55 ML IVPB SCH ×2 (08:24→20:57)
--- NOTE | 2020-05-21 09:33 | Infectious Diseases Prog Note ---
Assessment/Plan Assessment/Plan A 1. COVID 19 pneumonia Test positive: 05/03 -05/09 2. renal failure 3. increased LFT 4. COPD 5. CHF, Diastolic & systolic 6. asthma 7. Cholelithiasis r/o cholecystitis 8. Hypoxic hypercapnic respiratory failure 9. Pseudomonas pneumonia treated 10. Leukocytosis, improving 11. Funguria P 1. Discontinue Meropenem 2. Continue Fluconazole Subjective ROS Limited/Unobtainable: Yes Constitutional: Denies: fever Neurologic: Reports: confusion, other - on restraint Allergies: Coded Allergies: CIPROFLOXACIN (Verified Allergy, Unknown, 09/27/17) Objective Last 24 Hour Vital Signs Date Time Temp Pulse Resp B/P (MAP) Pulse Ox O2 Delivery O2 Flow Rate FiO2 05/21/20 08:00 30 05/21/20 08:00 98.4 102 17 102/55 (71) 100 05/21/20 07:42 100 05/21/20 07:21 101 12 30 30 05/21/20 07:00 100 15 96/52 (67) 100 05/21/20 06:00 100 15 106/55 (72) 100 05/21/20 05:18 97 97/51 05/21/20 05:00 91 14 100/51 (67) 100 05/21/20 04:01 101 05/21/20 04:00 98.1 100 15 109/54 (72) 100 05/21/20 04:00 30 05/21/20 04:00 Mechanical Ventilator Mechanical Ventilator 05/21/20 03:07 91 14 30 05/21/20 03:00 91 15 96/55 (69) 100 05/21/20 02:00 95 14 108/58 (75) 100 05/21/20 01:00 98 14 95/55 (68) 100 05/21/20 00:00 98.5 93 15 94/50 (65) 100 05/21/20 00:00 Mechanical Ventilator Mechanical Ventilator 05/20/20 23:24 97 05/20/20 23:19 101 15 30 05/20/20 23:00 100 14 99/51 (67) 100 05/20/20 22:00 89 14 98/51 (67) 100 05/20/20 21:32 94 98/50 05/20/20 21:00 91 14 102/60 (74) 100 05/20/20 20:00 30 05/20/20 20:00 98.3 92 14 98/53 (68) 100 05/20/20 20:00 Mechanical Ventilator Mechanical Ventilator 05/20/20 19:49 95 05/20/20 19:30 93 15 30 05/20/20 19:00 95 14 97/53 (68) 100 05/20/20 18:00 100 19 107/57 (74) 100 05/20/20 17:00 94 12 102/57 (72) 100 05/20/20 16:00 Mechanical Ventilator Mechanical Ventilator 05/20/20 16:00 99.3 99 15 105/58 (74) 100 05/20/20 16:00 30 05/20/20 15:22 96 05/20/20 15:00 96 14 97/52 (67) 100 05/20/20 15:00 99 15 30 05/20/20 14:00 97 14 102/59 (73) 100 05/20/20 13:18 98 97/53 05/20/20 13:00 98 14 97/53 (68) 100 05/20/20 12:04 100 05/20/20 12:00 Mechanical Ventilator Mechanical Ventilator 05/20/20 12:00 98.8 100 14 107/51 (69) 100 05/20/20 12:00 30 05/20/20 11:54 100 05/20/20 11:20 103 14 30 05/20/20 11:00 106 15 126/59 (81) 100 05/20/20 10:00 100 16 103/57 (72) 100 Height (Feet): 5 Height (Inches): 3.00 Weight (Pounds): 160 HEENT: other - orally intubated Respiratory/Chest: no respiratory distress Cardiovascular: tachycardia Abdomen: soft, non tender Extremities: no edema Neurologic/Psychiatric: unresponsiveness Microbiology Date/Time Source Procedure Growth Status 05/19/20 07:01 Urine,Clean Catch Urine Culture - Final Sherly Famata Complete Laboratory Tests Test 05/21/20 04:00 White Blood Count 19.2 K/UL (4.8-10.8) H Red Blood Count 3.80 M/UL (4.20-5.40) L Hemoglobin 10.7 G/DL (12.0-16.0) L Hematocrit 32.5 % (37.0-47.0) L Mean Corpuscular Volume 85 FL (80-99) Mean Corpuscular Hemoglobin 28.3 PG (27.0-31.0) Mean Corpuscular Hemoglobin Concent 33.1 G/DL (32.0-36.0) Red Cell Distribution Width 17.9 % (11.6-14.8) H Platelet Count 158 K/UL (150-450) Mean Platelet Volume 6.3 FL (6.5-10.1) L Neutrophils (%) (Auto) % (45.0-75.0) Lymphocytes (%) (Auto) % (20.0-45.0) Monocytes (%) (Auto) % (1.0-10.0) Eosinophils (%) (Auto) % (0.0-3.0) Basophils (%) (Auto) % (0.0-2.0) Differential Total Cells Counted 100 Neutrophils % (Manual) 94 % (45-75) H Lymphocytes % (Manual) 3 % (20-45) L Monocytes % (Manual) 3 % (1-10) Eosinophils % (Manual) 0 % (0-3) Basophils % (Manual) 0 % (0-2) Band Neutrophils 0 % (0-8) Platelet Estimate Adequate Platelet Morphology Normal Hypochromasia 1+ Anisocytosis 1+ Sodium Level 146 MMOL/L (136-145) H Potassium Level 3.9 MMOL/L (3.5-5.1) Chloride Level 110 MMOL/L (98-107) H Carbon Dioxide Level 27 MMOL/L (21-32) Anion Gap 9 mmol/L (5-15) Blood Urea Nitrogen 115 mg/dL (7-18) H Creatinine 2.4 MG/DL (0.55-1.30) H Estimat Glomerular Filtration Rate 23.5 mL/min (>60) Glucose Level 339 MG/DL (74-106) H Calcium Level 8.3 MG/DL (8.5-10.1) L Current Medications Medications (Trade) Dose Ordered Sig/Ghislaine Route PRN Reason Start Time Stop Time Status Last Admin Dose Admin Acetaminophen (Tylenol) 500 mg Q4H PRN ORAL Mild Pain (Pain Scale 1-3) 05/11/20 20:00 06/02/20 19:59 05/13/20 08:37 Albuterol Sulfate (Proventil MDI) 2 puff Q4H PRN INH Shortness of Breath 05/11/20 20:00 08/01/20 11:59 05/13/20 10:30 Apixaban (Eliquis) 2.5 mg BID ORAL 05/12/20 09:00 08/01/20 17:59 05/21/20 08:23 Aspirin (Ecotrin) 81 mg DAILY ORAL 05/12/20 09:00 06/17/20 15:59 05/21/20 08:23 Diltiazem HCl (Cardizem Tab) 60 mg EVERY 8 HOURS ORAL 05/16/20 06:00 06/15/20 05:59 05/20/20 06:01 Fluconazole (Diflucan) 100 mg DAILY ORAL 05/20/20 13:00 05/27/20 12:59 05/21/20 08:23 Meropenem 500 mg/ Sodium Chloride 55 ml @ 110 mls/hr Q12HR IVPB 05/15/20 13:00 05/22/20 12:59 05/21/20 08:24 Pantoprazole (Protonix) 40 mg DAILY ORAL 05/12/20 09:00 06/02/20 15:59 05/21/20 08:24 Salmeterol Xinafoate/ Fluticasone (Advair 100/50 Diskus) 1 puffs BIDRT INH 05/11/20 22:00 08/09/20 21:59 05/16/20 09:02 Freddy Woodson MD May 21, 2020 09:33
[2020-05-21] MEDS: Wixela 100/50 Inhaler - 60 dose INH SCH ×2 (10:00→22:00)
--- NOTE | 2020-05-21 10:02 | Pulmonology Progress Note ---
Subjective ROS Limited/Unobtainable: Yes Constitutional: Denies: fever Gastrointestinal/Abdominal: Denies: nausea, vomiting, diarrhea Musculoskeletal: Denies: pain Allergies: Coded Allergies: CIPROFLOXACIN (Verified Allergy, Unknown, 09/27/17) All Systems: reviewed and negative except above Subjective on vent- still not weaning well and failed comfortable sedated reduced LOC ICU care reviewed Objective Last 24 Hour Vital Signs Date Time Temp Pulse Resp B/P (MAP) Pulse Ox O2 Delivery O2 Flow Rate FiO2 05/21/20 09:00 98 14 99/59 (72) 100 05/21/20 08:00 30 05/21/20 08:00 98.4 102 17 102/55 (71) 100 05/21/20 08:00 96 05/21/20 07:42 100 05/21/20 07:21 101 12 30 30 05/21/20 07:00 100 15 96/52 (67) 100 05/21/20 06:00 100 15 106/55 (72) 100 05/21/20 05:18 97 97/51 05/21/20 05:00 91 14 100/51 (67) 100 05/21/20 04:01 101 05/21/20 04:00 98.1 100 15 109/54 (72) 100 05/21/20 04:00 30 05/21/20 04:00 Mechanical Ventilator Mechanical Ventilator 05/21/20 03:07 91 14 30 05/21/20 03:00 91 15 96/55 (69) 100 05/21/20 02:00 95 14 108/58 (75) 100 05/21/20 01:00 98 14 95/55 (68) 100 05/21/20 00:00 98.5 93 15 94/50 (65) 100 05/21/20 00:00 Mechanical Ventilator Mechanical Ventilator 05/20/20 23:24 97 05/20/20 23:19 101 15 30 05/20/20 23:00 100 14 99/51 (67) 100 05/20/20 22:00 89 14 98/51 (67) 100 05/20/20 21:32 94 98/50 05/20/20 21:00 91 14 102/60 (74) 100 05/20/20 20:00 30 05/20/20 20:00 98.3 92 14 98/53 (68) 100 05/20/20 20:00 Mechanical Ventilator Mechanical Ventilator 05/20/20 19:49 95 05/20/20 19:30 93 15 30 05/20/20 19:00 95 14 97/53 (68) 100 05/20/20 18:00 100 19 107/57 (74) 100 05/20/20 17:00 94 12 102/57 (72) 100 05/20/20 16:00 Mechanical Ventilator Mechanical Ventilator 05/20/20 16:00 99.3 99 15 105/58 (74) 100 05/20/20 16:00 30 05/20/20 15:22 96 05/20/20 15:00 96 14 97/52 (67) 100 05/20/20 15:00 99 15 30 05/20/20 14:00 97 14 102/59 (73) 100 05/20/20 13:18 98 97/53 05/20/20 13:00 98 14 97/53 (68) 100 05/20/20 12:04 100 05/20/20 12:00 Mechanical Ventilator Mechanical Ventilator 05/20/20 12:00 98.8 100 14 107/51 (69) 100 05/20/20 12:00 30 05/20/20 11:54 100 05/20/20 11:20 103 14 30 05/20/20 11:00 106 15 126/59 (81) 100 Intake and Output 05/20/20 05/21/20 19:00 07:00 Intake Total 728.75 ml 1285 ml Output Total 585 ml 550 ml Balance 143.75 ml 735 ml Free Water 0 ml 60 ml IV Total 158.75 ml 805 ml Tube Feeding 420 ml 420 ml Other 150 ml Output Urine Total 585 ml 550 ml # Bowel Movements 2 3 Objective deferred due to COVID Microbiology Date/Time Source Procedure Growth Status 05/19/20 07:01 Urine,Clean Catch Urine Culture - Final Sherly Famata Complete Laboratory Tests 05/21/20 04:00: White Blood Count 19.2H, Red Blood Count 3.80L, Hemoglobin 10.7L, Hematocrit 32.5L, Mean Corpuscular Volume 85, Mean Corpuscular Hemoglobin 28.3, Mean Corpuscular Hemoglobin Concent 33.1, Red Cell Distribution Width 17.9H, Platelet Count 158, Mean Platelet Volume 6.3L, Neutrophils (%) (Auto) , Lymphocytes (%) (Auto) , Monocytes (%) (Auto) , Eosinophils (%) (Auto) , Basophils (%) (Auto) , Differential Total Cells Counted 100, Neutrophils % (Manual) 94H, Lymphocytes % (Manual) 3L, Monocytes % (Manual) 3, Eosinophils % (Manual) 0, Basophils % (Manual) 0, Band Neutrophils 0, Platelet Estimate Adequate, Platelet Morphology Normal, Hypochromasia 1+, Anisocytosis 1+, Sodium Level 146H, Potassium Level 3.9, Chloride Level 110H, Carbon Dioxide Level 27, Anion Gap 9, Blood Urea Nitrogen 115H, Creatinine 2.4H, Estimat Glomerular Filtration Rate 23.5, Glucose Level 339H, Calcium Level 8.3L Current Medications Medications (Trade) Dose Ordered Sig/Ghislaine Route PRN Reason Start Time Stop Time Status Last Admin Dose Admin Acetaminophen (Tylenol) 500 mg Q4H PRN ORAL Mild Pain (Pain Scale 1-3) 05/11/20 20:00 06/02/20 19:59 05/13/20 08:37 Albuterol Sulfate (Proventil MDI) 2 puff Q4H PRN INH Shortness of Breath 05/11/20 20:00 08/01/20 11:59 05/13/20 10:30 Apixaban (Eliquis) 2.5 mg BID ORAL 05/12/20 09:00 08/01/20 17:59 05/21/20 08:23 Aspirin (Ecotrin) 81 mg DAILY ORAL 05/12/20 09:00 06/17/20 15:59 05/21/20 08:23 Diltiazem HCl (Cardizem Tab) 60 mg EVERY 8 HOURS ORAL 05/16/20 06:00 06/15/20 05:59 05/20/20 06:01 Fluconazole (Diflucan) 100 mg DAILY ORAL 05/20/20 13:00 05/27/20 12:59 05/21/20 08:23 Meropenem 500 mg/ Sodium Chloride 55 ml @ 110 mls/hr Q12HR IVPB 05/15/20 13:00 05/22/20 00:01 05/21/20 08:24 Pantoprazole (Protonix) 40 mg DAILY ORAL 05/12/20 09:00 06/02/20 15:59 9/24/20 08:24 Salmeterol Xinafoate/ Fluticasone (Advair 100/50 Diskus) 1 puffs BIDRT INH 05/11/20 22:00 08/09/20 21:59 05/16/20 09:02 Assessment/Plan Assessment/Plan Impression: COVID-19 Chronic obstructive pulmonary disease/Asthma Community acquired pneumonia Atrial fibrillation with RVR Elevated troponin Congestive heart Failure sinus tachycardia Hypoxemia transaminitis with gallstones consider cholecystitis acute on chronic renal failure acute respiratory failure Plan ID noted Vent support/try to wean as able daily - orders written wean oxygen - low flow feeds per dietary and monitor residuals IV therapy noted Bronchodilator therapy Eliquis and monitor HH Monitor labs/ renal follow up - renal function still reduced Covid 19 Isolation- per ID nutrition and NG feeds reviewed care and optimize position change and monitor skin surgical follow up noted monitor protein levels and adjust will d/w daughter; trach if unable to wean medications/laboratory data/nursing notes/ICU care reviewed in detail note reviewed and edited care discussed with RN and RT ICU time spent >40 minutes Aaron Jefferson MD May 21, 2020 10:02
--- NOTE | 2020-05-21 10:52 | NUR ---
RESPIRATORY THERAPIST NOTES: Atempted weaning for a second time on Ms. Sanchez. Placed on SIMV 10, 500, PS +14, 30%, +5. Total breath rate was 10bpm. Patient showed no signs of spontaneous effort. After 5 minutes placed back onto ACVC 14, 500, 30%, +5.
--- NOTE | 2020-05-21 11:15 | NUR ---
NURSE NOTES: second weaning trial attempted on PS of 14 SIMV of 10 and peep of 5, she tired out and was retuned to Ac 14, TV: 500, FIO2 30% and peep of 5.
--- NOTE | 2020-05-21 14:20 | NUR ---
NURSE NOTES: Patient bowel movement cleaned and provided skin care, Optifoam placed on hips and sacral region, heels protected with Cavilon and Optifoam, heels are elevated
--- NOTE | 2020-05-21 14:21 | Surgery Progress Note ---
Surgery Progress Note Subjective Additional Comments ill appearing unable to wean vent ? trach Objective Last 24 Hour Vital Signs Date Time Temp Pulse Resp B/P (MAP) Pulse Ox O2 Delivery O2 Flow Rate FiO2 05/21/20 14:00 102 14 101/54 (70) 100 05/21/20 14:00 105 97/56 05/21/20 13:00 104 15 109/55 (73) 100 05/21/20 12:00 104 05/21/20 12:00 114 15 93/56 (68) 100 05/21/20 12:00 30 05/21/20 12:00 Mechanical Ventilator Mechanical Ventilator 05/21/20 11:03 96 14 30 05/21/20 11:00 99 14 102/54 (70) 100 05/21/20 10:00 102 18 107/57 (74) 100 05/21/20 09:00 98 14 99/59 (72) 100 05/21/20 08:00 Mechanical Ventilator Mechanical Ventilator 05/21/20 08:00 30 05/21/20 08:00 98.4 102 17 102/55 (71) 100 05/21/20 08:00 96 05/21/20 07:42 100 05/21/20 07:21 101 12 30 30 05/21/20 07:00 100 15 96/52 (67) 100 05/21/20 06:00 100 15 106/55 (72) 100 05/21/20 05:18 97 97/51 05/21/20 05:00 91 14 100/51 (67) 100 05/21/20 04:01 101 05/21/20 04:00 98.1 100 15 109/54 (72) 100 05/21/20 04:00 30 05/21/20 04:00 Mechanical Ventilator Mechanical Ventilator 05/21/20 03:07 91 14 30 05/21/20 03:00 91 15 96/55 (69) 100 05/21/20 02:00 95 14 108/58 (75) 100 05/21/20 01:00 98 14 95/55 (68) 100 05/21/20 00:00 98.5 93 15 94/50 (65) 100 05/21/20 00:00 Mechanical Ventilator Mechanical Ventilator 05/20/20 23:24 97 05/20/20 23:19 101 15 30 05/20/20 23:00 100 14 99/51 (67) 100 05/20/20 22:00 89 14 98/51 (67) 100 05/20/20 21:32 94 98/50 05/20/20 21:00 91 14 102/60 (74) 100 05/20/20 20:00 30 05/20/20 20:00 98.3 92 14 98/53 (68) 100 05/20/20 20:00 Mechanical Ventilator Mechanical Ventilator 05/20/20 19:49 95 05/20/20 19:30 93 15 30 05/20/20 19:00 95 14 97/53 (68) 100 05/20/20 18:00 100 19 107/57 (74) 100 05/20/20 17:00 94 12 102/57 (72) 100 05/20/20 16:00 Mechanical Ventilator Mechanical Ventilator 05/20/20 16:00 99.3 99 15 105/58 (74) 100 05/20/20 16:00 30 05/20/20 15:22 96 05/20/20 15:00 96 14 97/52 (67) 100 05/20/20 15:00 99 15 30 I&O Intake and Output 05/20/20 05/21/20 19:00 07:00 Intake Total 728.75 ml 1285 ml Output Total 585 ml 550 ml Balance 143.75 ml 735 ml Free Water 0 ml 60 ml IV Total 158.75 ml 805 ml Tube Feeding 420 ml 420 ml Other 150 ml Output Urine Total 585 ml 550 ml # Bowel Movements 2 3 Dressing: other Wound: other Cardiovascular: RSR Respiratory: decreased breath sounds Abdomen: soft, non-tender, present bowel sounds Extremities: no cyanosis Laboratory Tests Test 05/21/20 04:00 White Blood Count 19.2 K/UL (4.8-10.8) H Red Blood Count 3.80 M/UL (4.20-5.40) L Hemoglobin 10.7 G/DL (12.0-16.0) L Hematocrit 32.5 % (37.0-47.0) L Mean Corpuscular Volume 85 FL (80-99) Mean Corpuscular Hemoglobin 28.3 PG (27.0-31.0) Mean Corpuscular Hemoglobin Concent 33.1 G/DL (32.0-36.0) Red Cell Distribution Width 17.9 % (11.6-14.8) H Platelet Count 158 K/UL (150-450) Mean Platelet Volume 6.3 FL (6.5-10.1) L Neutrophils (%) (Auto) % (45.0-75.0) Lymphocytes (%) (Auto) % (20.0-45.0) Monocytes (%) (Auto) % (1.0-10.0) Eosinophils (%) (Auto) % (0.0-3.0) Basophils (%) (Auto) % (0.0-2.0) Differential Total Cells Counted 100 Neutrophils % (Manual) 94 % (45-75) H Lymphocytes % (Manual) 3 % (20-45) L Monocytes % (Manual) 3 % (1-10) Eosinophils % (Manual) 0 % (0-3) Basophils % (Manual) 0 % (0-2) Band Neutrophils 0 % (0-8) Platelet Estimate Adequate Platelet Morphology Normal Hypochromasia 1+ Anisocytosis 1+ Sodium Level 146 MMOL/L (136-145) H Potassium Level 3.9 MMOL/L (3.5-5.1) Chloride Level 110 MMOL/L (98-107) H Carbon Dioxide Level 27 MMOL/L (21-32) Anion Gap 9 mmol/L (5-15) Blood Urea Nitrogen 115 mg/dL (7-18) H Creatinine 2.4 MG/DL (0.55-1.30) H Estimat Glomerular Filtration Rate 23.5 mL/min (>60) Glucose Level 339 MG/DL (74-106) H Calcium Level 8.3 MG/DL (8.5-10.1) L Plan Problems: (1) Elevated troponin (2) Atrial fibrillation with RVR (3) COVID-19 Assessment & Plan: ++ as per pulm and ID DAILY ESTIMATED NEEDS: Needs based on Critical Care, ARF/ 56kg abw 22-28 kcals/kg 7736-2237 total kcals 0.8-1.5 (increase w/ renal improvement) g protein/kg 45-84 g total protein 25-30 mL/kg 5083-4347 total fluid mLs NUTRITION DIAGNOSIS: * Altered nutrition related lab values r/t clinical status as evidenced by elev BUN(82), creat(3.8) trending up, critical ABG (low pH, elev CO2)-> now improved. * Swallowing difficulty R/T respiratory status as evidenced by s/p oral intubation, on OGT feeds. 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 ENTERAL NUTRITION RECOMMENDATIONS: Nepro @ 35ml/hr x 24 hrs to provide 840ml, 1512kcal, 68g prot, 610ml free water * W/ worsening renal fxn, rec to continue Nepro * As tolerated, increase goal rate to 35ml/hr x 24 hrs to meet 100% est kcal/prot needs ADDITIONAL RECOMMENDATIONS: 1) Calibrated bedscale wt 2) Monitor renal fxn and lytes, need to continue Nepro Creat trending up 3) Rec niss w/ solumedrol (4) Community acquired pneumonia (5) COPD (chronic obstructive pulmonary disease) (6) Pulmonary fibrosis (7) Asthma (8) History of asthma (9) NSTEMI (non-ST elevated myocardial infarction) (10) Moderate to severe pulmonary hypertension (11) Asthma exacerbation (12) Abnormal LFTs Assessment & Plan: afebrile, HD stable labs noted lft's elevated US reviewed exam benign gb likely reactive from underlying pathology unlikely cholecystitis clinically fluid overload trend labs will monitor exam clinically covid + prognosis guarded cxr reviewed on abx worsening plan repeat US - noted cannot get hida given covid labs noted worsening leukocytosis Gallbladder demonstrates wall thickening and wall edema, gallbladder wall measuring up to 6 mm thick. There are gallstones. Sonographic Escoto's sign is negative. Common bile duct measures 3 mm in diameter. No intrahepatic biliary ductal dilatation. Liver demonstrates normal echogenicity, no focal abnormality. Portal vein and hepatic veins are patent. Pancreas is unremarkable. Spleen is unremarkable. Left kidney measures 9.2 cm in length. Right kidney measures 9.9 cm length. Both kidneys demonstrate normal echogenicity. There is no hydronephrosis. Small cyst is seen in the right kidney. . Abdominal aorta was not imaged . There is trace ascites. There is a small right pleural effusion incidentally noted Impression: Small right pleural effusion. Trace ascites Cholelithiasis. Gallbladder wall thickening may be related to hemodynamic fact ors causing the pleural fluid and ascites, but could also indicate acute cholecystitis. Consider nuclear medicine hepatobiliary scan if there is high clinical suspicion. Negative for dilated bile ducts Small right renal cyst incidentally noted (13) Acute respiratory failure with hypoxia Quentin Sanchez May 21, 2020 14:21
[2020-05-21] MEDS ORDERED: Sterile Water Irrig 1000ml IRRIG ONE (14:36)
[2020-05-21] MEDS ORDERED: NS 275ml ONE (14:36)
[2020-05-21] MEDS ORDERED: Tubing IV Secondary IV ONE (14:36)
--- NOTE | 2020-05-21 16:55 | NUR ---
NURSE NOTES: Daughter, itzel, visiting patient and updated on patient progress of weaning trial.
--- NOTE | 2020-05-21 19:25 | NUR ---
RESPIRATORY NOTE: Received pt on AC 14, 500VT, 30%, PEEP +5. Pt intubated w/ ETT 7.5 @ 20cm lipline, secured by anchorfast. Pt is alert/awakem follows commands. B/S migel. rhonchi, sxn small amounts of thick, marks-yellow secretions. Vent plugged into red outlet, ambubag at bedside. Pt resting comfortably, in no apparent distress at this time. Will continue to monitor pt.
--- NOTE | 2020-05-21 19:27 | NUR ---
NURSE HAND-OFF REPORT: Latest Vital Signs: Temperature 98.1 , Pulse 111 , B/P 101 /55 , Respiratory Rate 14 , O2 SAT 100 , Mechanical Ventilator, O2 Flow Rate 4.0 . Vital Sign Comment: EKG Rhythm: Sinus Tachycardia Rhythm change?: N Notified?: Tracy Linn MD Response: No New Orders Received Latest Lechuga Fall Score: 50 Fall Risk: High Risk Safety Measures: Call light Within Reach, Bed Alarm Zone 1, Side Rails Side Rails x3, Bed position Low and Locked. Fall Precautions: Yellow Socks Door Sign Patient Fall Education Report given to DAMIAN Stephen.
--- NOTE | 2020-05-21 19:28 | NUR ---
NURSE NOTES: Received patient from DAMIAN Nichols. Will continue plan of care.
--- NOTE | 2020-05-21 20:00 | NUR ---
NURSE NOTES: Patient is asleep but awakens upon entering room. Intubated; ETT 7.5 @ 20cm to the lipline to vent with settings of AC:14, TV:500, FiO2:30%, PEEP:5, O2sat:100%. OGT in place but not flushing and may be clogged. Should be running tube feed of Nepro @ 35ml/hr, will attempt to unclog. [place] intact and drainging. IV site left forearm 20g running TKO. Isolation precautions noted. LICENSING MANAGER restraints on for safety for prevention of pulling on lines and tubes and for safety. Bed low, locked and alarm is on. Vital signs stable and patient is afebrile.
--- NOTE | 2020-05-21 20:14 | Cardiology Progress Note ---
Subjective DATE OF SERVICE: May 21, 2020 Condition remains critical; patient remains on [facility] ventilation - failed wean. Monitor: AFib with episodes of RVR and nonsustained VTach. Lactic acidosis resolved BP remains tenuous, as well as acid-base status. Episodes of tachyarrhythmias noted. CXR (05/19) reviewed: bilateral patchy infiltrates, left appears chronic, but right acute and worse. ICU logs and cardiology care plan reviewed and updated Objective Last 24 Hour Vital Signs Date Time Temp Pulse Resp B/P (MAP) Pulse Ox O2 Delivery O2 Flow Rate FiO2 05/21/20 19:23 111 14 30 05/21/20 19:00 106 14 101/55 (70) 100 05/21/20 18:00 108 14 100/48 (65) 100 05/21/20 17:00 106 14 98/52 (67) 100 05/21/20 16:00 30 05/21/20 16:00 98.1 104 15 92/66 (75) 100 05/21/20 16:00 Mechanical Ventilator Mechanical Ventilator 05/21/20 16:00 105 05/21/20 15:15 102 18 30 05/21/20 15:00 104 15 102/54 (70) 100 05/21/20 14:00 102 14 101/54 (70) 100 05/21/20 14:00 105 97/56 05/21/20 13:00 104 15 109/55 (73) 100 05/21/20 12:00 104 05/21/20 12:00 114 15 93/56 (68) 100 05/21/20 12:00 30 05/21/20 12:00 Mechanical Ventilator Mechanical Ventilator 05/21/20 11:03 96 14 30 05/21/20 11:00 99 14 102/54 (70) 100 05/21/20 10:00 102 18 107/57 (74) 100 05/21/20 09:00 98 14 99/59 (72) 100 05/21/20 08:00 Mechanical Ventilator Mechanical Ventilator 05/21/20 08:00 30 05/21/20 08:00 98.4 102 17 102/55 (71) 100 05/21/20 08:00 96 05/21/20 07:42 100 05/21/20 07:21 101 12 30 30 05/21/20 07:00 100 15 96/52 (67) 100 05/21/20 06:00 100 15 106/55 (72) 100 05/21/20 05:18 97 97/51 05/21/20 05:00 91 14 100/51 (67) 100 05/21/20 04:01 101 05/21/20 04:00 98.1 100 15 109/54 (72) 100 05/21/20 04:00 30 05/21/20 04:00 Mechanical Ventilator Mechanical Ventilator 05/21/20 03:07 91 14 30 05/21/20 03:00 91 15 96/55 (69) 100 05/21/20 02:00 95 14 108/58 (75) 100 05/21/20 01:00 98 14 95/55 (68) 100 05/21/20 00:00 98.5 93 15 94/50 (65) 100 05/21/20 00:00 Mechanical Ventilator Mechanical Ventilator 05/20/20 23:24 97 05/20/20 23:19 101 15 30 05/20/20 23:00 100 14 99/51 (67) 100 05/20/20 22:00 89 14 98/51 (67) 100 05/20/20 21:32 94 98/50 05/20/20 21:00 91 14 102/60 (74) 100 ROS: unchanged from my eval of 05/03/20 HEENT: Orally intubated, Mechanically Ventilated, Thin secretions ET Tube RHYTHM: Afib LUNGS: no accessory muscle use, expiratory wheezing, diminished breath sounds CARDIAC: normal S1 and S2, no murmur, irregularly irregular ABDOMEN: normal bowel sounds, non tender, soft, no organomegaly EXTREMITIES: no calf tenderness, +1 edema Laboratory Tests Test 05/21/20 04:00 White Blood Count 19.2 K/UL (4.8-10.8) H Red Blood Count 3.80 M/UL (4.20-5.40) L Hemoglobin 10.7 G/DL (12.0-16.0) L Hematocrit 32.5 % (37.0-47.0) L Mean Corpuscular Volume 85 FL (80-99) Mean Corpuscular Hemoglobin 28.3 PG (27.0-31.0) Mean Corpuscular Hemoglobin Concent 33.1 G/DL (32.0-36.0) Red Cell Distribution Width 17.9 % (11.6-14.8) H Platelet Count 158 K/UL (150-450) Mean Platelet Volume 6.3 FL (6.5-10.1) L Neutrophils (%) (Auto) % (45.0-75.0) Lymphocytes (%) (Auto) % (20.0-45.0) Monocytes (%) (Auto) % (1.0-10.0) Eosinophils (%) (Auto) % (0.0-3.0) Basophils (%) (Auto) % (0.0-2.0) Differential Total Cells Counted 100 Neutrophils % (Manual) 94 % (45-75) H Lymphocytes % (Manual) 3 % (20-45) L Monocytes % (Manual) 3 % (1-10) Eosinophils % (Manual) 0 % (0-3) Basophils % (Manual) 0 % (0-2) Band Neutrophils 0 % (0-8) Platelet Estimate Adequate Platelet Morphology Normal Hypochromasia 1+ Anisocytosis 1+ Sodium Level 146 MMOL/L (136-145) H Potassium Level 3.9 MMOL/L (3.5-5.1) Chloride Level 110 MMOL/L (98-107) H Carbon Dioxide Level 27 MMOL/L (21-32) Anion Gap 9 mmol/L (5-15) Blood Urea Nitrogen 115 mg/dL (7-18) H Creatinine 2.4 MG/DL (0.55-1.30) H Estimat Glomerular Filtration Rate 23.5 mL/min (>60) Glucose Level 339 MG/DL (74-106) H Calcium Level 8.3 MG/DL (8.5-10.1) L Microbiology Date/Time Source Procedure Growth Status 05/19/20 07:01 Urine,Clean Catch Urine Culture - Final Sherly Famata Complete Assessment/Plan Assessment/Plan Acute on chronic respiratory acidosis Acute respiratory failure Shock LE edema due to severe pulmonary hypertension and right heart strain COPD exacerb with active bronchospasm Lactic acidosis COVID 19 PNA Acute on chr renal failure - now with hyperkalemia Chronic systolic/diastolic CHF Pulmonary fibrosis with chronic hypoxia Paroxysmal AFib with RVR Hx Multifocal atrial arrhythmias Pulmonary HTN - severe Hx NSVTach Acute myocardial ischemia Vent support with on-going weaning efforts Hold diltiazem for low BP, but titrate for optimal rate control Steroids per pulmonary Inhaled bronchodilators IVF adjusted Reassess for diuresis; not presently indicated Full anticoagulation for cardioembolic prophyl Isolation Anti-viral rx per Simone Shirley MD May 21, 2020 20:13
--- NOTE | 2020-05-21 22:00 | NUR ---
NURSE NOTES: Patient awakes upon entering room. Alert and aware of surrounding and situation. Cardizem held for BP:90/54.
[2020-05-22] VITALS (24 sets, daily range): BP systolic 87–108; BP diastolic 40–66
--- NOTE | 2020-05-22 | NUR ---
NURSE NOTES: No changes in patient condition. Repositioned. Will continue to attempt to unclog OGT.
--- NOTE | 2020-05-22 00:15 | NUR ---
NURSE NOTES: Feeding restarted. OGT now patent and flushing well.
--- NOTE | 2020-05-22 00:35 | NUR ---
NURSE NOTES: Left message for Dr. Perez regarding BP dropping throughout the night. Current BP: 86/50, with no IV fluids running and also no standby pressors. Awaiting call back.
--- NOTE | 2020-05-22 02:00 | NUR ---
NURSE NOTES: Started scheduled 1/2 NS @ 100ml/hr per Dr. Perez's orders. BP:96/55
--- NOTE | 2020-05-22 04:00 | NUR ---
NURSE NOTES: Patient awake and aware blood drawn peripherally for AM labs, she is compliant. Turned and repositioned. 1/2 NS @ [address] Perez orders. BP is stable.
[2020-05-22 05:26] LABS: HEMATOCRIT 32.8 % (37.0-47.0); HEMOGLOBIN 10.6 G/DL (12.0-16.0); MEAN CORPUSCULAR VOLUME 85 FL (80-99); PLATELET COUNT 135 K/UL (150-450); RED BLOOD COUNT 3.85 M/UL (4.20-5.40); RED CELL DISTRIBUTION WIDTH 18.3 % (11.6-14.8); WHITE BLOOD COUNT 17.8 K/UL (4.8-10.8)
[2020-05-22] MEDS: dilTIAZem HCl 60mg tab ORAL SCH ×3 (05:33→22:00)
[2020-05-22 05:49] LABS: ALANINE AMINOTRANSFERASE 470 U/L (12-78); ALBUMIN 1.5 G/DL (3.4-5.0); ALBUMIN/GLOBULIN RATIO 0.5 (1.0-2.7); ALKALINE PHOSPHATASE 252 U/L (46-116); ASPARTATE AMINO TRANSFERASE 169 U/L (15-37); BILIRUBIN,TOTAL 0.6 MG/DL (0.2-1.0); BLOOD UREA NITROGEN 108 mg/dL (7-18); CALCIUM 8.3 MG/DL (8.5-10.1); CARBON DIOXIDE 25 MMOL/L (21-32); CHLORIDE 112 MMOL/L (98-107); CREATININE 2.2 MG/DL (0.55-1.30); POTASSIUM 3.5 MMOL/L (3.5-5.1); SODIUM 147 MMOL/L (136-145)
--- NOTE | 2020-05-22 06:00 | NUR ---
NURSE NOTES: Bed bath given, linens changed, turn/repositioned, oral care and suctioning done. Cool towels provided.
[2020-05-22] MEDS: Acetaminophen 500mg (ES) tab ORAL PRN ×2 (06:12→21:52)
--- NOTE | 2020-05-22 06:38 | NUR ---
RD ASSESSMENT & RECOMMENDATIONS SEE CARE ACTIVITY FOR COMPLETE ASSESSMENT DAILY ESTIMATED NEEDS: Needs based on Critical Care, ARF/ 56kg abw 22-28 kcals/kg 7815-1003 total kcals 0.8-1.5 (increase w/ renal improvement) g protein/kg 45-84 g total protein 25-30 mL/kg 9319-3376 total fluid mLs NUTRITION DIAGNOSIS: * Altered nutrition related lab values r/t clinical status as evidenced by elev BUN(108), creat(2.0->4.0->2.2), low K (3.2-> wnl), critical ABG (low pH,elev CO2)-> now improved. * Swallowing difficulty R/T respiratory status as evidenced by s/p oral intubation, on OGT feeds. CURRENT TF:Nepro @ 35ml/hr x 24 hrs ENTERAL NUTRITION RECOMMENDATIONS: Glucerna 1.5 @ 40ml/hr x 24hrs to provide 960ml, 1440kcal, 72g prot, 729ml free water * Rec TF change to Glucerna 1.5: improved renal fxn (Creat 2.2), for BG control (BG 221, 339) * Rec goal rate of 40ml/hr x 24 hrs * HOB over 30 degrees/ water flush per MD IF RENAL FXN WORSENS AGAIN W/ ELEV K/PHOS, maintain Nepro @ 35ml/hr x 24 hrs to provide 840ml, 1512kcal, 68g prot ADDITIONAL RECOMMENDATIONS: 1) Calibrated bedscale wt 2) Monitor renal fxn and lytes, need to continue Nepro -> Creat 2.0-> 4.0-> 3.7-> 2.2 -> Check phos level 3) Rec niss (elev BGs 221 339) -> rec TF change to Glucerna 1.5 for improved BG control .
--- NOTE | 2020-05-22 07:26 | NUR ---
NURSE HAND-OFF REPORT: Latest Vital Signs: Temperature 100.3 , Pulse 120 , B/P 91 /45 , Respiratory Rate 16 , O2 SAT 100 , Mechanical Ventilator, O2 Flow Rate 4.0 . Vital Sign Comment: occassional hypotensive EKG Rhythm: Sinus Tachycardia Rhythm change?: N Notified?: Tracy Linn MD Response: No New Orders Received Latest Lechuga Fall Score: 50 Fall Risk: High Risk Safety Measures: Call light Within Reach, Bed Alarm Zone 1, Side Rails Side Rails x3, Bed position Low and Locked. Fall Precautions: Yellow Socks Door Sign Patient Fall Education Report given to .
--- NOTE | 2020-05-22 08:08 | General Progress Note ---
Subjective ROS Limited/Unobtainable: No Constitutional: Reports: malaise, weakness HEENT: Reports: no symptoms Cardiovascular: Reports: no symptoms Respiratory: Reports: sputum Gastrointestinal/Abdominal: Reports: difficulty swallowing Genitourinary: Reports: no symptoms Neurologic/Psychiatric: Reports: no symptoms Endocrine: Reports: no symptoms Hematologic/Lymphatic: Reports: no symptoms Allergies: Coded Allergies: CIPROFLOXACIN (Verified Allergy, Unknown, 09/27/17) All Systems: reviewed and negative except above Subjective no events. failed wean. Na stable. Cr trending down. no fevers. no bleeding. opens eyes. follows commands. tolerated 1 hr simv Objective Last 24 Hour Vital Signs Date Time Temp Pulse Resp B/P (MAP) Pulse Ox O2 Delivery O2 Flow Rate FiO2 05/22/20 07:00 120 16 91/45 (60) 100 05/22/20 06:42 100.3 05/22/20 06:00 125 14 107/47 (67) 100 05/22/20 05:33 120 92/52 05/22/20 05:00 126 14 101/49 (66) 100 05/22/20 04:00 30 05/22/20 04:00 100.5 123 18 101/51 (68) 100 05/22/20 04:00 Mechanical Ventilator Mechanical Ventilator 05/22/20 03:31 123 05/22/20 03:18 124 14 30 05/22/20 03:00 120 13 96/48 (64) 99 05/22/20 02:00 120 15 96/55 (69) 99 05/22/20 01:00 120 17 87/50 (62) 100 05/22/20 00:00 Mechanical Ventilator Mechanical Ventilator 05/22/20 00:00 99.9 119 16 95/52 (66) 100 05/21/20 23:29 118 15 30 05/21/20 23:20 118 05/21/20 23:00 114 14 96/61 (73) 100 05/21/20 22:00 116 16 93/46 (62) 100 05/21/20 22:00 117 90/54 05/21/20 21:00 113 14 100/54 (69) 100 05/21/20 20:00 Mechanical Ventilator Mechanical Ventilator 05/21/20 20:00 30 05/21/20 20:00 99.3 109 16 103/50 (67) 100 05/21/20 19:23 111 14 30 05/21/20 19:17 114 05/21/20 19:00 106 14 101/55 (70) 100 05/21/20 18:00 108 14 100/48 (65) 100 05/21/20 17:00 106 14 98/52 (67) 100 05/21/20 16:00 30 05/21/20 16:00 98.1 104 15 92/66 (75) 100 05/21/20 16:00 Mechanical Ventilator Mechanical Ventilator 05/21/20 16:00 105 05/21/20 15:15 102 18 30 05/21/20 15:00 104 15 102/54 (70) 100 05/21/20 14:00 102 14 101/54 (70) 100 05/21/20 14:00 105 97/56 05/21/20 13:00 104 15 109/55 (73) 100 05/21/20 12:00 104 05/21/20 12:00 114 15 93/56 (68) 100 05/21/20 12:00 30 05/21/20 12:00 Mechanical Ventilator Mechanical Ventilator 05/21/20 11:03 96 14 30 05/21/20 11:00 99 14 102/54 (70) 100 05/21/20 10:00 102 18 107/57 (74) 100 05/21/20 09:00 98 14 99/59 (72) 100 Intake and Output 05/21/20 05/22/20 19:00 07:00 Intake Total 830 ml 1015 ml Output Total 890 ml 910 ml Balance -60 ml 105 ml Free Water 50 ml 200 ml IV Total 130 ml 535 ml Tube Feeding 420 ml 280 ml Other 230 ml Output Urine Total 890 ml 910 ml # Bowel Movements 2 2 Laboratory Tests 05/22/20 04:00: White Blood Count 17.8H, Red Blood Count 3.85L, Hemoglobin 10.6L, Hematocrit 32.8L, Mean Corpuscular Volume 85, Mean Corpuscular Hemoglobin 27.6, Mean Corpuscular Hemoglobin Concent 32.3, Red Cell Distribution Width 18.3H, Platelet Count 135L, Mean Platelet Volume 6.4L, Neutrophils (%) (Auto) , Lymphocytes (%) (Auto) , Monocytes (%) (Auto) , Eosinophils (%) (Auto) , Basophils (%) (Auto) , Neutrophils % (Manual) [Pending], Lymphocytes % (Manual) [Pending], Platelet Estimate [Pending], Platelet Morphology [Pending], Sodium Level 147H, Potassium Level 3.5, Chloride Level 112H, Carbon Dioxide Level 25, Blood Urea Nitrogen 108H, Creatinine 2.2H, Estimat Glomerular Filtration Rate 25.9, Glucose Level 221#H, Calcium Level 8.3L, Total Bilirubin 0.6, Aspartate Amino Transf (AST/SGOT) 169H, Alanine Aminotransferase (ALT/SGPT) 470H, Alkaline Phosphatase 252H, Total Protein 4.3L, Albumin 1.5L, Globulin 2.8, Albumin/Globulin Ratio 0.5L Height (Feet): 5 Height (Inches): 3.00 Weight (Pounds): 160 Objective General Appearance: WD/WN, no apparent distress, alert. orally intubated EENT: PERRL/EOMI Neck: non-tender, normal alignment, supple Cardiovascular: normal rate, regular rhythm Respiratory/Chest: chest wall non-tender, lungs clear, normal breath sounds, no respiratory distress, no accessory muscle use Abdomen: normal bowel sounds, non tender, soft, no organomegaly Edema: no edema noted Arm (L), no edema noted Arm (R) Neurologic: calender let off helper II-XII grossly normal, alert, oriented x 3, responsive Skin: normal pigmentation Lymphatic: normal anterior cervical (L), normal anterior cervical (R) Assessment/Plan Problem List: (1) Pulmonary fibrosis ICD Codes: J84.10 - Pulmonary fibrosis, unspecified SNOMED: 64837125 (2) History of asthma ICD Codes: Z87.09 - Personal history of other diseases of the respiratory system SNOMED: 877326256 (3) Asthma ICD Codes: J45.909 - Unspecified asthma, uncomplicated SNOMED: 288343507 (4) NSTEMI (non-ST elevated myocardial infarction) ICD Codes: I21.4 - Non-ST elevation (NSTEMI) myocardial infarction SNOMED: 730981856 (5) Elevated troponin ICD Codes: R79.89 - Other specified abnormal findings of blood chemistry SNOMED: 196365584, 732438226, 575679455 (6) COPD (chronic obstructive pulmonary disease) ICD Codes: J44.9 - Chronic obstructive pulmonary disease, unspecified SNOMED: 03322238 (7) Atrial fibrillation with RVR ICD Codes: I48.91 - Unspecified atrial fibrillation SNOMED: 816904358130898 (8) Community acquired pneumonia ICD Codes: J18.9 - Pneumonia, unspecified organism SNOMED: 081982800 Status: stable Assessment/Plan: cont iv abx dc hypotonic fluids increased water flushes and repeat Na monitor renal fxn/lytes ngt feeds wean vent as able keep dry dvt/stress ulcer prophylaxis skin care turn q2 Bradford Linn MD May 22, 2020 08:08
--- NOTE | 2020-05-22 08:21 | Pulmonology Progress Note ---
Subjective ROS Limited/Unobtainable: Yes Constitutional: Denies: fever Gastrointestinal/Abdominal: Denies: nausea, vomiting, diarrhea Musculoskeletal: Denies: pain Allergies: Coded Allergies: CIPROFLOXACIN (Verified Allergy, Unknown, 09/27/17) All Systems: reviewed and negative except above Subjective on vent- still not weaning well hypotensive and tachy this am comfortable sedated reduced LOC ICU care reviewed Objective Last 24 Hour Vital Signs Date Time Temp Pulse Resp B/P (MAP) Pulse Ox O2 Delivery O2 Flow Rate FiO2 05/22/20 07:00 120 16 91/45 (60) 100 05/22/20 06:42 100.3 05/22/20 06:00 125 14 107/47 (67) 100 05/22/20 05:33 120 92/52 05/22/20 05:00 126 14 101/49 (66) 100 05/22/20 04:00 30 05/22/20 04:00 100.5 123 18 101/51 (68) 100 05/22/20 04:00 Mechanical Ventilator Mechanical Ventilator 05/22/20 03:31 123 05/22/20 03:18 124 14 30 05/22/20 03:00 120 13 96/48 (64) 99 05/22/20 02:00 120 15 96/55 (69) 99 05/22/20 01:00 120 17 87/50 (62) 100 05/22/20 00:00 Mechanical Ventilator Mechanical Ventilator 05/22/20 00:00 99.9 119 16 95/52 (66) 100 05/21/20 23:29 118 15 30 05/21/20 23:20 118 05/21/20 23:00 114 14 96/61 (73) 100 05/21/20 22:00 116 16 93/46 (62) 100 05/21/20 22:00 117 90/54 05/21/20 21:00 113 14 100/54 (69) 100 05/21/20 20:00 Mechanical Ventilator Mechanical Ventilator 05/21/20 20:00 30 05/21/20 20:00 99.3 109 16 103/50 (67) 100 05/21/20 19:23 111 14 30 05/21/20 19:17 114 05/21/20 19:00 106 14 101/55 (70) 100 05/21/20 18:00 108 14 100/48 (65) 100 05/21/20 17:00 106 14 98/52 (67) 100 05/21/20 16:00 30 05/21/20 16:00 98.1 104 15 92/66 (75) 100 05/21/20 16:00 Mechanical Ventilator Mechanical Ventilator 05/21/20 16:00 105 05/21/20 15:15 102 18 30 05/21/20 15:00 104 15 102/54 (70) 100 05/21/20 14:00 102 14 101/54 (70) 100 05/21/20 14:00 105 97/56 05/21/20 13:00 104 15 109/55 (73) 100 05/21/20 12:00 104 05/21/20 12:00 114 15 93/56 (68) 100 05/21/20 12:00 30 05/21/20 12:00 Mechanical Ventilator Mechanical Ventilator 05/21/20 11:03 96 14 30 05/21/20 11:00 99 14 102/54 (70) 100 05/21/20 10:00 102 18 107/57 (74) 100 05/21/20 09:00 98 14 99/59 (72) 100 Intake and Output 05/21/20 05/22/20 19:00 07:00 Intake Total 830 ml 1015 ml Output Total 890 ml 910 ml Balance -60 ml 105 ml Free Water 50 ml 200 ml IV Total 130 ml 535 ml Tube Feeding 420 ml 280 ml Other 230 ml Output Urine Total 890 ml 910 ml # Bowel Movements 2 2 Objective deferred due to COVID Laboratory Tests 05/22/20 04:00: White Blood Count 17.8H, Red Blood Count 3.85L, Hemoglobin 10.6L, Hematocrit 32.8L, Mean Corpuscular Volume 85, Mean Corpuscular Hemoglobin 27.6, Mean Corpuscular Hemoglobin Concent 32.3, Red Cell Distribution Width 18.3H, Platelet Count 135L, Mean Platelet Volume 6.4L, Neutrophils (%) (Auto) , Lymphocytes (%) (Auto) , Monocytes (%) (Auto) , Eosinophils (%) (Auto) , Basophils (%) (Auto) , Neutrophils % (Manual) [Pending], Lymphocytes % (Manual) [Pending], Platelet Estimate [Pending], Platelet Morphology [Pending], Sodium Level 147H, Potassium Level 3.5, Chloride Level 112H, Carbon Dioxide Level 25, Blood Urea Nitrogen 108H, Creatinine 2.2H, Estimat Glomerular Filtration Rate 25.9, Glucose Level 221#H, Calcium Level 8.3L, Total Bilirubin 0.6, Aspartate Amino Transf (AST/SGOT) 169H, Alanine Aminotransferase (ALT/SGPT) 470H, Alkaline Phosphatase 252H, Total Protein 4.3L, Albumin 1.5L, Globulin 2.8, Albumin/Globulin Ratio 0.5L Current Medications Medications (Trade) Dose Ordered Sig/Ghislaine Route PRN Reason Start Time Stop Time Status Last Admin Dose Admin Acetaminophen (Tylenol) 500 mg Q4H PRN ORAL Mild Pain (Pain Scale 1-3) 05/11/20 20:00 06/02/20 19:59 05/22/20 06:12 Albuterol Sulfate (Proventil MDI) 2 puff Q4H PRN INH Shortness of Breath 05/11/20 20:00 08/01/20 11:59 05/13/20 10:30 Apixaban (Eliquis) 2.5 mg BID ORAL 05/12/20 09:00 08/01/20 17:59 05/21/20 18:02 Aspirin (Ecotrin) 81 mg DAILY ORAL 05/12/20 09:00 06/17/20 15:59 05/21/20 08:23 Diltiazem HCl (Cardizem Tab) 60 mg EVERY 8 HOURS ORAL 05/16/20 06:00 06/15/20 05:59 05/20/20 06:01 Fluconazole (Diflucan) 100 mg DAILY ORAL 05/20/20 13:00 05/27/20 12:59 05/21/20 08:23 Pantoprazole (Protonix) 40 mg DAILY ORAL 05/12/20 09:00 06/02/20 15:59 05/21/20 08:24 Salmeterol Xinafoate/ Fluticasone (Advair 100/50 Diskus) 1 puffs BIDRT INH 05/11/20 22:00 08/09/20 21:59 05/16/20 09:02 Sodium Chloride 1,000 ml @ 100 mls/hr Q10H IV 05/22/20 01:45 06/21/20 01:44 05/22/20 01:39 Assessment/Plan Assessment/Plan Impression: COVID-19 Chronic obstructive pulmonary disease/Asthma Community acquired pneumonia Atrial fibrillation with RVR Elevated troponin Congestive heart Failure sinus tachycardia Hypoxemia transaminitis with gallstones consider cholecystitis acute on chronic renal failure acute respiratory failure hypotension tachycardia Plan ID noted bolus fluids and monitor vitals Vent support/unable to wean wean oxygen - low flow feeds per dietary and monitor residuals IV therapy noted Bronchodilator therapy Eliquis and monitor HH Monitor labs/ renal follow up - renal function still reduced Covid 19 Isolation- per ID nutrition and NG feeds reviewed care and optimize position change and monitor skin surgical follow up noted monitor protein levels and adjust will d/w daughter; trach likely needed position change medications/laboratory data/nursing notes/ICU care reviewed in detail note reviewed and edited care discussed with RN and RT ICU time spent >40 minutes Aaron Jefferson MD May 22, 2020 08:21
--- NOTE | 2020-05-22 09:30 | NUR ---
NURSE NOTES: Patient failed weaning with CPAP and ps of 8, returned to ac mode, patient is awake and responsive and is able to track staff and able to follow simple commands, she attempts to take breaths but is unable, she shakes her head.
--- NOTE | 2020-05-22 09:58 | NUR ---
RESPIRATORY NOTES PT placed on SBT - CPAP 5, PS 8. PT was unable to generate adequate tidal volumes - <150. PT then placed back onto previous vent settings. DAMIAN argueta. Will continue to monitor. Addendum: 05/22/20 at 1106 by FLORIDA PITT RT Addendum: DAMIAN argueta, not DAMIAN Nur.
[2020-05-22] MEDS: Wixela 100/50 Inhaler - 60 dose INH SCH ×2 (10:00→22:00)
--- NOTE | 2020-05-22 10:45 | NUR ---
NURSE NOTES: Dr. Cameron updated on patient decreasing WBC count to 17.8, will review chart for any changed to medication, currently receiving meropenem by IV
[2020-05-22] MEDS: Eliquis 2.5mg tablet ORAL SCH ×2 (10:50→18:12)
[2020-05-22] MEDS: Fluconazole 100mg tab ORAL SCH (10:50)
[2020-05-22] MEDS: Aspirin EC 81mg tab ORAL SCH (10:50)
--- NOTE | 2020-05-22 11:00 | NUR ---
NURSE NOTES: New IV started on the right hand, inserted on first attempt with flash back of blood no leaking or swelling noted around the insertion site upon flushing. old IV taken out from left forearm
--- NOTE | 2020-05-22 11:47 | Infectious Diseases Prog Note ---
Assessment/Plan Assessment/Plan antibiotics : fluconazole 9..20- A 1. COVID 19 pneumonia s/p ivermectin 9..20 2. renal failure 3. increased LFT 4. COPD 5. CHF 6. asthma 7. respiratory failure 8. leucocytosis likely secondary to steroids improving 9. pseudomonas pneumonia 10. fungal UTI P 1. continue fluconazole 4 more days 2. will follow up cultures Subjective ROS Limited/Unobtainable: Yes Allergies: Coded Allergies: CIPROFLOXACIN (Verified Allergy, Unknown, 09/27/17) Objective Last 24 Hour Vital Signs Date Time Temp Pulse Resp B/P (MAP) Pulse Ox O2 Delivery O2 Flow Rate FiO2 05/22/20 09:58 100 05/22/20 08:00 30 05/22/20 08:00 100.1 115 14 92/40 (57) 100 05/22/20 07:20 118 14 30 05/22/20 07:00 120 16 91/45 (60) 100 05/22/20 06:42 100.3 05/22/20 06:00 125 14 107/47 (67) 100 05/22/20 05:33 120 92/52 05/22/20 05:00 126 14 101/49 (66) 100 05/22/20 04:00 30 05/22/20 04:00 100.5 123 18 101/51 (68) 100 05/22/20 04:00 Mechanical Ventilator Mechanical Ventilator 05/22/20 03:31 123 05/22/20 03:18 124 14 30 05/22/20 03:00 120 13 96/48 (64) 99 05/22/20 02:00 120 15 96/55 (69) 99 05/22/20 01:00 120 17 87/50 (62) 100 05/22/20 00:00 Mechanical Ventilator Mechanical Ventilator 05/22/20 00:00 99.9 119 16 95/52 (66) 100 05/21/20 23:29 118 15 30 05/21/20 23:20 118 05/21/20 23:00 114 14 96/61 (73) 100 05/21/20 22:00 116 16 93/46 (62) 100 05/21/20 22:00 117 90/54 05/21/20 21:00 113 14 100/54 (69) 100 05/21/20 20:00 Mechanical Ventilator Mechanical Ventilator 05/21/20 20:00 30 05/21/20 20:00 99.3 109 16 103/50 (67) 100 05/21/20 19:23 111 14 30 05/21/20 19:17 114 05/21/20 19:00 106 14 101/55 (70) 100 05/21/20 18:00 108 14 100/48 (65) 100 05/21/20 17:00 106 14 98/52 (67) 100 05/21/20 16:00 30 05/21/20 16:00 98.1 104 15 92/66 (75) 100 05/21/20 16:00 Mechanical Ventilator Mechanical Ventilator 05/21/20 16:00 105 05/21/20 15:15 102 18 30 05/21/20 15:00 104 15 102/54 (70) 100 05/21/20 14:00 102 14 101/54 (70) 100 05/21/20 14:00 105 97/56 05/21/20 13:00 104 15 109/55 (73) 100 05/21/20 12:00 104 05/21/20 12:00 114 15 93/56 (68) 100 05/21/20 12:00 30 05/21/20 12:00 Mechanical Ventilator Mechanical Ventilator Height (Feet): 5 Height (Inches): 3.00 Weight (Pounds): 160 HEENT: other - intubated Laboratory Tests Test 05/22/20 04:00 White Blood Count 17.8 K/UL (4.8-10.8) H Red Blood Count 3.85 M/UL (4.20-5.40) L Hemoglobin 10.6 G/DL (12.0-16.0) L Hematocrit 32.8 % (37.0-47.0) L Mean Corpuscular Volume 85 FL (80-99) Mean Corpuscular Hemoglobin 27.6 PG (27.0-31.0) Mean Corpuscular Hemoglobin Concent 32.3 G/DL (32.0-36.0) Red Cell Distribution Width 18.3 % (11.6-14.8) H Platelet Count 135 K/UL (150-450) L Mean Platelet Volume 6.4 FL (6.5-10.1) L Neutrophils (%) (Auto) % (45.0-75.0) Lymphocytes (%) (Auto) % (20.0-45.0) Monocytes (%) (Auto) % (1.0-10.0) Eosinophils (%) (Auto) % (0.0-3.0) Basophils (%) (Auto) % (0.0-2.0) Differential Total Cells Counted 100 Neutrophils % (Manual) 90 % (45-75) H Lymphocytes % (Manual) 8 % (20-45) L Monocytes % (Manual) 2 % (1-10) Eosinophils % (Manual) 0 % (0-3) Basophils % (Manual) 0 % (0-2) Band Neutrophils 0 % (0-8) Platelet Estimate Decreased L Platelet Morphology Normal Hypochromasia 1+ Anisocytosis 2+ Sodium Level 147 MMOL/L (136-145) H Potassium Level 3.5 MMOL/L (3.5-5.1) Chloride Level 112 MMOL/L (98-107) H Carbon Dioxide Level 25 MMOL/L (21-32) Blood Urea Nitrogen 108 mg/dL (7-18) H Creatinine 2.2 MG/DL (0.55-1.30) H Estimat Glomerular Filtration Rate 25.9 mL/min (>60) Glucose Level 221 MG/DL (74-106) #H Calcium Level 8.3 MG/DL (8.5-10.1) L Total Bilirubin 0.6 MG/DL (0.2-1.0) Aspartate Amino Transf (AST/SGOT) 169 U/L (15-37) H Alanine Aminotransferase (ALT/SGPT) 470 U/L (12-78) H Alkaline Phosphatase 252 U/L (46-116) H Total Protein 4.3 G/DL (6.4-8.2) L Albumin 1.5 G/DL (3.4-5.0) L Globulin 2.8 g/dL Albumin/Globulin Ratio 0.5 (1.0-2.7) L Current Medications Medications (Trade) Dose Ordered Sig/Ghislaine Route PRN Reason Start Time Stop Time Status Last Admin Dose Admin Acetaminophen (Tylenol) 500 mg Q4H PRN ORAL Mild Pain (Pain Scale 1-3) 05/11/20 20:00 06/02/20 19:59 05/22/20 06:12 Albuterol Sulfate (Proventil MDI) 2 puff Q4H PRN INH Shortness of Breath 05/11/20 20:00 08/01/20 11:59 05/13/20 10:30 Apixaban (Eliquis) 2.5 mg BID ORAL 05/12/20 09:00 08/01/20 17:59 05/22/20 10:50 Aspirin (Ecotrin) 81 mg DAILY ORAL 05/12/20 09:00 06/17/20 15:59 05/22/20 10:50 Diltiazem HCl (Cardizem Tab) 60 mg EVERY 8 HOURS ORAL 05/16/20 06:00 06/15/20 05:59 05/20/20 06:01 Fluconazole (Diflucan) 100 mg DAILY ORAL 05/20/20 13:00 05/27/20 12:59 05/22/20 10:50 Pantoprazole (Protonix) 40 mg DAILY ORAL 05/12/20 09:00 06/02/20 15:59 05/22/20 10:50 Salmeterol Xinafoate/ Fluticasone (Advair 100/50 Diskus) 1 puffs BIDRT INH 05/11/20 22:00 08/09/20 21:59 05/16/20 09:02 Sodium Chloride 1,000 ml @ 100 mls/hr Q10H IV 05/22/20 01:45 06/21/20 01:44 05/22/20 10:51 Camilo Cameron MD May 22, 2020 11:47
--- NOTE | 2020-05-22 12:45 | NUR ---
NURSE NOTES: Patient weaning on SIMV of 10 with PS of 12, patient was not able to tolerate settings due to volumes on spontaneous volumes ranging from 75 to 175mls. patient placed back to AC14, Tv: 500, FIO2 30% and peep of 5
--- NOTE | 2020-05-22 14:00 | Consultation ---
DATE OF CONSULTATION: 05/22/2020 NEPHROLOGY CONSULTATION CONSULTING PHYSICIAN: Ruth Coyne MD ATTENDING PHYSICIAN: Aaron Jefferson MD REASON FOR CONSULTATION: Elevated BUN and creatinine. HISTORY OF PRESENT ILLNESS: This is an 80-year-old female who I am seeing at the request of the attending physician. The patient is in ICU. He has COVID-19 pneumonia. PAST MEDICAL HISTORY: 1. Chronic obstructive pulmonary disease. 2. Atrial fibrillation. 3. Congestive heart failure. 4. Chronic kidney disease. 5. Recent development of COVID-19 pneumonia. MEDICATIONS: IV fluids half-normal saline, IV meropenem, Tylenol as needed, Proventil inhaler, apixaban, baby aspirin, diltiazem tablets, Diflucan, Protonix, Advair Diskus. ALLERGIES: Ciprofloxacin. FAMILY HISTORY: Unable to obtain due to mental status. SOCIAL HISTORY: Unable to obtain due to mental status. REVIEW OF SYSTEMS: Unable to obtain due to mental status. PHYSICAL EXAMINATION: GENERAL: This is an elderly female, who is in respiratory distress. VITAL SIGNS: Blood pressure 99/55, pulse 116 irregular, respiratory rate 21 and labored. HEENT: Head is normocephalic and atraumatic. Pupils are equal, round, and reactive to light. NECK: Supple. Trachea midline. She has jugular venous distention. There were no carotid bruits. LUNGS: Bilateral rhonchi. HEART: Irregularly irregular and tachycardic. LUNGS: Bilateral wheezes. ABDOMEN: Soft and nontender. Bowel sounds were active. EXTREMITIES: She has 4+ bilateral leg edema. NEUROLOGIC: He is obtunded. There were no gross focal findings. LABORATORY AND ANCILLARY DATA: Sodium 147, potassium 3.5, chloride 112, BUN 108, creatinine 2.2. AST 169, ALT 470, alkaline phosphatase 252, albumin 1.5. CBC shows white count 17,800, hemoglobin 10.6. Chest x-ray, unchanged right upper lobe infiltrates. Abdominal ultrasound small right pleural effusion, cholelithiasis, both kidneys demonstrate normal echogenicity. ASSESSMENT: 1. History of severe prerenal azotemia due to hemodynamic compromised due to current congestive heart failure and low renal perfusion. 2. Chronic obstructive pulmonary disease. 3. Atrial fibrillation. 4. Congestive heart failure. 5. Chronic kidney disease. 6. Recent development of COVID-19 pneumonia. PLAN: 1. Continue current efforts at improving renal perfusion by treating current the patient's septicemia and COVID-19 situation. 2. Avoid nephrotoxic agents. Thank you, Dr. Linn and Dr. Jefferson, for letting me to participate in the care of this patient. Ruth Coyne M.D. DR: Colette JOB#: [id number] CC:
--- NOTE | 2020-05-22 14:30 | Cardiology Report ---
APPROVED REPORT EKG Measurement Heart [id number] <Conclusion> Poor data quality, interpretation may be adversely affected Probable A. Fib Possible Right ventricular hypertrophy Inferior infarct, age undetermined Anterolateral infarct, possibly acute Abnormal ECG
--- NOTE | 2020-05-22 15:41 | Surgery Progress Note ---
Surgery Progress Note Subjective Additional Comments ill appearing labs noted no acute events Objective Last 24 Hour Vital Signs Date Time Temp Pulse Resp B/P (MAP) Pulse Ox O2 Delivery O2 Flow Rate FiO2 05/22/20 14:00 115 92/58 05/22/20 12:00 30 05/22/20 12:00 Mechanical Ventilator Mechanical Ventilator 05/22/20 11:10 115 14 30 05/22/20 11:00 116 15 99/55 (70) 100 05/22/20 10:00 116 21 100/53 (69) 100 05/22/20 09:58 100 05/22/20 09:00 116 14 93/66 (75) 100 05/22/20 08:00 30 05/22/20 08:00 Mechanical Ventilator Mechanical Ventilator 05/22/20 08:00 100.1 115 14 92/40 (57) 100 05/22/20 07:20 118 14 30 05/22/20 07:00 120 16 91/45 (60) 100 05/22/20 06:42 100.3 05/22/20 06:00 125 14 107/47 (67) 100 05/22/20 05:33 120 92/52 05/22/20 05:00 126 14 101/49 (66) 100 05/22/20 04:00 30 05/22/20 04:00 100.5 123 18 101/51 (68) 100 05/22/20 04:00 Mechanical Ventilator Mechanical Ventilator 05/22/20 03:31 123 05/22/20 03:18 124 14 30 05/22/20 03:00 120 13 96/48 (64) 99 05/22/20 02:00 120 15 96/55 (69) 99 05/22/20 01:00 120 17 87/50 (62) 100 05/22/20 00:00 Mechanical Ventilator Mechanical Ventilator 05/22/20 00:00 99.9 119 16 95/52 (66) 100 05/21/20 23:29 118 15 30 05/21/20 23:20 118 05/21/20 23:00 114 14 96/61 (73) 100 05/21/20 22:00 116 16 93/46 (62) 100 05/21/20 22:00 117 90/54 05/21/20 21:00 113 14 100/54 (69) 100 9/24/20 20:00 Mechanical Ventilator Mechanical Ventilator 05/21/20 20:00 30 05/21/20 20:00 99.3 109 16 103/50 (67) 100 05/21/20 19:23 111 14 30 05/21/20 19:17 114 05/21/20 19:00 106 14 101/55 (70) 100 05/21/20 18:00 108 14 100/48 (65) 100 05/21/20 17:00 106 14 98/52 (67) 100 05/21/20 16:00 30 05/21/20 16:00 98.1 104 15 92/66 (75) 100 05/21/20 16:00 Mechanical Ventilator Mechanical Ventilator 05/21/20 16:00 105 I&O Intake and Output 05/21/20 05/22/20 19:00 07:00 Intake Total 830 ml 1015 ml Output Total 890 ml 910 ml Balance -60 ml 105 ml Free Water 50 ml 200 ml IV Total 130 ml 535 ml Tube Feeding 420 ml 280 ml Other 230 ml Output Urine Total 890 ml 910 ml # Bowel Movements 2 2 Dressing: other Wound: other Cardiovascular: RSR Respiratory: decreased breath sounds Abdomen: soft, non-tender, present bowel sounds Extremities: no tenderness, no cyanosis Laboratory Tests Test 05/22/20 04:00 White Blood Count 17.8 K/UL (4.8-10.8) H Red Blood Count 3.85 M/UL (4.20-5.40) L Hemoglobin 10.6 G/DL (12.0-16.0) L Hematocrit 32.8 % (37.0-47.0) L Mean Corpuscular Volume 85 FL (80-99) Mean Corpuscular Hemoglobin 27.6 PG (27.0-31.0) Mean Corpuscular Hemoglobin Concent 32.3 G/DL (32.0-36.0) Red Cell Distribution Width 18.3 % (11.6-14.8) H Platelet Count 135 K/UL (150-450) L Mean Platelet Volume 6.4 FL (6.5-10.1) L Neutrophils (%) (Auto) % (45.0-75.0) Lymphocytes (%) (Auto) % (20.0-45.0) Monocytes (%) (Auto) % (1.0-10.0) Eosinophils (%) (Auto) % (0.0-3.0) Basophils (%) (Auto) % (0.0-2.0) Differential Total Cells Counted 100 Neutrophils % (Manual) 90 % (45-75) H Lymphocytes % (Manual) 8 % (20-45) L Monocytes % (Manual) 2 % (1-10) Eosinophils % (Manual) 0 % (0-3) Basophils % (Manual) 0 % (0-2) Band Neutrophils 0 % (0-8) Platelet Estimate Decreased L Platelet Morphology Normal Hypochromasia 1+ Anisocytosis 2+ Sodium Level 147 MMOL/L (136-145) H Potassium Level 3.5 MMOL/L (3.5-5.1) Chloride Level 112 MMOL/L (98-107) H Carbon Dioxide Level 25 MMOL/L (21-32) Blood Urea Nitrogen 108 mg/dL (7-18) H Creatinine 2.2 MG/DL (0.55-1.30) H Estimat Glomerular Filtration Rate 25.9 mL/min (>60) Glucose Level 221 MG/DL (74-106) #H Calcium Level 8.3 MG/DL (8.5-10.1) L Total Bilirubin 0.6 MG/DL (0.2-1.0) Aspartate Amino Transf (AST/SGOT) 169 U/L (15-37) H Alanine Aminotransferase (ALT/SGPT) 470 U/L (12-78) H Alkaline Phosphatase 252 U/L (46-116) H Total Protein 4.3 G/DL (6.4-8.2) L Albumin 1.5 G/DL (3.4-5.0) L Globulin 2.8 g/dL Albumin/Globulin Ratio 0.5 (1.0-2.7) L Plan Problems: (1) Elevated troponin (2) Atrial fibrillation with RVR (3) COVID-19 Assessment & Plan: ++ as per pulm and ID DAILY ESTIMATED NEEDS: Needs based on Critical Care, ARF/ 56kg abw 22-28 kcals/kg [id number] total kcals 0.8-1.5 (increase w/ renal improvement) g protein/kg 45-84 g total protein 25-30 mL/kg [id number] total fluid mLs NUTRITION DIAGNOSIS: * Altered nutrition related lab values r/t clinical status as evidenced by elev BUN(82), creat(3.8) trending up, critical ABG (low pH, elev CO2)-> now improved. * Swallowing difficulty R/T respiratory status as evidenced by s/p oral intubation, on OGT feeds. 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: PROMOTIONS ASSISTANT eval post extubation ENTERAL NUTRITION RECOMMENDATIONS: Nepro @ 35ml/hr x 24 hrs to provide 840ml, 1512kcal, 68g prot, 610ml free water * W/ worsening renal fxn, rec to continue Nepro * As tolerated, increase goal rate to 35ml/hr x 24 hrs to meet 100% est kcal/prot needs ADDITIONAL RECOMMENDATIONS: 1) Calibrated bedscale wt 2) Monitor renal fxn and lytes, need to continue Nepro Creat trending up 3) Rec niss w/ solumedrol (4) Community acquired pneumonia (5) COPD (chronic obstructive pulmonary disease) (6) Pulmonary fibrosis (7) Asthma (8) History of asthma (9) NSTEMI (non-ST elevated myocardial infarction) (10) Moderate to severe pulmonary hypertension (11) Asthma exacerbation (12) Abnormal LFTs Assessment & Plan: afebrile, HD stable labs noted lft's elevated US reviewed exam benign gb likely reactive from underlying pathology unlikely cholecystitis clinically fluid overload trend labs will monitor exam clinically covid + prognosis guarded cxr reviewed on abx worsening plan repeat US - noted cannot get hida given covid labs noted worsening leukocytosis Gallbladder demonstrates wall thickening and wall edema, gallbladder wall measuring up to 6 mm thick. There are gallstones. Sonographic Escoto's sign is negative. Common bile duct measures 3 mm in diameter. No intrahepatic biliary ductal dilatation. Liver demonstrates normal echogenicity, no focal abnormality. Portal vein and hepatic veins are patent. Pancreas is unremarkable. Spleen is unremarkable. Left kidney measures 9.2 cm in length. Right kidney measures 9.9 cm length. Both kidneys demonstrate normal echogenicity. There is no hydronephrosis. Small cyst is seen in the right kidney. . Abdominal aorta was not imaged . There is trace ascites. There is a small right pleural effusion incidentally noted Impression: Small right pleural effusion. Trace ascites Cholelithiasis. Gallbladder wall thickening may be related to hemodynamic factors causing the pleural fluid and ascites, but could also indicate acute cholecystitis. Consider nuclear medicine hepatobiliary scan if there is high clinical suspicion. Negative for dilated bile ducts Small right renal cyst incidentally noted (13) Acute respiratory failure with hypoxia Quentin Sanchez May 22, 2020 15:41
--- NOTE | 2020-05-22 16:07 | NUR ---
CASE MANAGEMENT: REVIEW 05/22/2020 SI;COVID PNA VS: T 99.9 HR 114 RR 14 B/P 100/59 SATS 100% ON MECH VENT FIO2 30 LABS: WBC 17.8 NA 147 CL 112 BUN 108 CR 2.2 GLU 221 CA 8.3 AST 169 ALT 470 ALP 252 IS:NS @ 100 ML/HR CARDIZEM PO Q8H ELIQUIS PO BID ASA PO QD PROTONIX PO QD DIFLUCAN PO QD ICU PLAN OF CARE: on vent- still not weaning well hypotensive and tachy this am
--- NOTE | 2020-05-22 16:15 | NUR ---
NURSE NOTES: Patient reposition and provided wound care, patient remains on tube feeding of Nepro at 35ml/hr. no residual noted.
--- NOTE | 2020-05-22 18:30 | NUR ---
NURSE NOTES: Tube feedin bottle changed to Glucerna 1.5 at 40ml/hr running through OG-tube, no residual are 0ml upon aspiration, increased to 40ml/hr.
--- NOTE | 2020-05-22 19:40 | NUR ---
NURSE NOTES: Received report from DAMIAN Nichols. Pt is resting on the bed and awake and able to open the eyes spontaneously. Pt has ETT and orally intubated and Vent dependent and setting with AC; 14, T: 500, P;5, and FiO2 30% and SaO2 100% noted. According to previous nurse, Pt failed weaning today. Pt has OGT and on running with Glucerna 1.5 @ 40cc/hr and no residual noted. Still noted mild fever. Keep cooling measure. IV site intact and no sing of infiltration noted and running with 2/1NS @ 100cc/hr. Pt has Riojas cath and patent and drainage well but noted sedimentation. Changed position. On proper isolation for Covid19. Placed fall precaution. Will continue to care plan.
--- NOTE | 2020-05-22 20:39 | NUR ---
NURSE HAND-OFF REPORT: Latest Vital Signs: Temperature 100.1 , Pulse 119 , B/P 96 /52 , Respiratory Rate 15 , O2 SAT 99 , Mechanical Ventilator, O2 Flow Rate 4.0 . Vital Sign Comment: EKG Rhythm: Sinus Tachycardia Rhythm change?: N Notified?: Tracy Linn MD Response: No New Orders Received Latest Lechuga Fall Score: 35 Fall Risk: Medium Risk Safety Measures: Call light Within Reach, Bed Alarm Zone 1, Side Rails Side Rails x3, Bed position Low and Locked. Fall Precautions: Yellow Socks Door Sign Patient Fall Education Report given to DAMIAN Castillo.
[2020-05-22] MEDS ORDERED: NovoLOG Insulin Flexpen SUBQ SCH (21:00)
--- NOTE | 2020-05-22 22:00 | NUR ---
NURSE NOTES: Pt is resting on the bed. Noted BT: 100.3 F and given Tylenol as order. Keep cooling measure. 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 SaO2 100% with current Vent setting. Suction and oral care was done. Noted moderated amount soft BM. Cleaned Pt and applied lotion and cream. pt has bilateral soft wrist restraint. Checked comfort and circulation. Will continue to monitor any change of condition.
[2020-05-23] VITALS (27 sets, daily range): BP systolic 91–135; BP diastolic 48–66
--- NOTE | 2020-05-23 | NUR ---
NURSE NOTES: Pt is resting on the bed and no sign of acute distress noted. SaO2 100% with current Vent setting. Noted BT: 100F. Keep cooling measure. Suction and oral care was done. Turn and reposition. Will continue to monitor any change of condition.
[2020-05-23] MEDS: NovoLOG Insulin Flexpen SUBQ SCH ×5 (00:06→23:01)
--- NOTE | 2020-05-23 02:00 | NUR ---
NURSE NOTES: Pt is resting on the bed and no sign of acute distress noted. Turn and reposition. Tolerated well with current OGT feeding. SaO2 100% with Vent. Given suction and oral care. Will continue to monitor any change of condition.
--- NOTE | 2020-05-23 02:21 | Cardiology Progress Note ---
Subjective DATE OF SERVICE: May 22, 2020 Condition remains critical; patient remains on [facility] ventilation - failed wean. Monitor: AFib with episodes of RVR and nonsustained VTach. Lactic acidosis resolved BP remains tenuous, as well as acid-base status. Sodium levels better, but still elevated. Episodes of tachyarrhythmias noted. CXR (05/19) reviewed: bilateral patchy infiltrates, left appears chronic, but right acute and worse. ICU logs and cardiology care plan reviewed and updated Objective Last 24 Hour Vital Signs Date Time Temp Pulse Resp B/P (MAP) Pulse Ox O2 Delivery O2 Flow Rate FiO2 05/23/20 01:00 111 14 97/49 (65) 100 05/23/20 00:00 Mechanical Ventilator Mechanical Ventilator 05/23/20 00:00 100.0 113 14 97/54 (68) 100 05/22/20 23:00 114 14 91/52 (65) 100 05/22/20 22:22 99.9 05/22/20 22:00 120 17 97/52 (67) 100 05/22/20 22:00 120 97/52 05/22/20 21:00 100.3 119 15 100/57 (71) 100 05/22/20 20:00 30 05/22/20 20:00 118 05/22/20 20:00 Mechanical Ventilator Mechanical Ventilator 05/22/20 20:00 100.0 121 19 103/49 (67) 100 05/22/20 19:30 119 15 30 05/22/20 19:00 120 16 96/52 (67) 99 05/22/20 18:00 122 15 108/53 (71) 100 05/22/20 17:00 116 14 90/53 (65) 100 05/22/20 16:00 30 05/22/20 16:00 Mechanical Ventilator Mechanical Ventilator 05/22/20 16:00 100.1 117 15 90/58 (69) 100 05/22/20 16:00 120 05/22/20 15:15 117 17 30 05/22/20 15:00 121 14 103/56 (72) 100 05/22/20 14:00 115 14 107/59 (75) 100 05/22/20 14:00 115 92/58 05/22/20 13:00 119 14 98/55 (69) 100 05/22/20 12:00 115 05/22/20 12:00 30 05/22/20 12:00 Mechanical Ventilator Mechanical Ventilator 05/22/20 12:00 99.9 114 14 100/59 (73) 100 05/22/20 11:10 115 14 30 05/22/20 11:00 116 15 99/55 (70) 100 05/22/20 10:00 116 21 100/53 (69) 100 05/22/20 09:58 100 05/22/20 09:00 116 14 93/66 (75) 100 05/22/20 08:00 30 05/22/20 08:00 Mechanical Ventilator Mechanical Ventilator 05/22/20 08:00 120 05/22/20 08:00 100.1 115 14 92/40 (57) 100 05/22/20 07:20 118 14 30 05/22/20 07:00 120 16 91/45 (60) 100 05/22/20 06:42 100.3 05/22/20 06:00 125 14 107/47 (67) 100 05/22/20 05:33 120 92/52 05/22/20 05:00 126 14 101/49 (66) 100 05/22/20 04:00 30 05/22/20 04:00 100.5 123 18 101/51 (68) 100 05/22/20 04:00 Mechanical Ventilator Mechanical Ventilator 05/22/20 03:31 123 05/22/20 03:18 124 14 30 05/22/20 03:00 120 13 96/48 (64) 99 ROS: unchanged from my eval of 05/03/20 HEENT: Orally intubated, Mechanically Ventilated, Thin secretions ET Tube RHYTHM: Afib LUNGS: no accessory muscle use, expiratory wheezing, diminished breath sounds CARDIAC: normal S1 and S2, no murmur, irregularly irregular ABDOMEN: normal bowel sounds, non tender, soft, no organomegaly EXTREMITIES: no calf tenderness, +1 edema Laboratory Tests Test 05/22/20 04:00 White Blood Count 17.8 K/UL (4.8-10.8) H Red Blood Count 3.85 M/UL (4.20-5.40) L Hemoglobin 10.6 G/DL (12.0-16.0) L Hematocrit 32.8 % (37.0-47.0) L Mean Corpuscular Volume 85 FL (80-99) Mean Corpuscular Hemoglobin 27.6 PG (27.0-31.0) Mean Corpuscular Hemoglobin Concent 32.3 G/DL (32.0-36.0) Red Cell Distribution Width 18.3 % (11.6-14.8) H Platelet Count 135 K/UL (150-450) L Mean Platelet Volume 6.4 FL (6.5-10.1) L Neutrophils (%) (Auto) % (45.0-75.0) Lymphocytes (%) (Auto) % (20.0-45.0) Monocytes (%) (Auto) % (1.0-10.0) Eosinophils (%) (Auto) % (0.0-3.0) Basophils (%) (Auto) % (0.0-2.0) Differential Total Cells Counted 100 Neutrophils % (Manual) 90 % (45-75) H Lymphocytes % (Manual) 8 % (20-45) L Monocytes % (Manual) 2 % (1-10) Eosinophils % (Manual) 0 % (0-3) Basophils % (Manual) 0 % (0-2) Band Neutrophils 0 % (0-8) Platelet Estimate Decreased L Platelet Morphology Normal Hypochromasia 1+ Anisocytosis 2+ Sodium Level 147 MMOL/L (136-145) H Potassium Level 3.5 MMOL/L (3.5-5.1) Chloride Level 112 MMOL/L (98-107) H Carbon Dioxide Level 25 MMOL/L (21-32) Blood Urea Nitrogen 108 mg/dL (7-18) H Creatinine 2.2 MG/DL (0.55-1.30) H Estimat Glomerular Filtration Rate 25.9 mL/min (>60) Glucose Level 221 MG/DL (74-106) #H Calcium Level 8.3 MG/DL (8.5-10.1) L Total Bilirubin 0.6 MG/DL (0.2-1.0) Aspartate Amino Transf (AST/SGOT) 169 U/L (15-37) H Alanine Aminotransferase (ALT/SGPT) 470 U/L (12-78) H Alkaline Phosphatase 252 U/L (46-116) H Total Protein 4.3 G/DL (6.4-8.2) L Albumin 1.5 G/DL (3.4-5.0) L Globulin 2.8 g/dL Albumin/Globulin Ratio 0.5 (1.0-2.7) L Assessment/Plan Assessment/Plan Acute on chronic respiratory acidosis Acute respiratory failure Shock LE edema due to severe pulmonary hypertension and right heart strain COPD exacerb with active bronchospasm Lactic acidosis COVID 19 PNA Acute on chr renal failure - now with hyperkalemia Chronic systolic/diastolic CHF Pulmonary fibrosis with chronic hypoxia Paroxysmal AFib with RVR Hx Multifocal atrial arrhythmias Pulmonary HTN - severe Hx NSVTach Acute myocardial ischemia Worsening transaminitis Vent support with on-going weaning efforts Hold diltiazem for low BP, but titrate for optimal rate control Steroids per pulmonary Inhaled bronchodilators IVF adjusted Reassess for diuresis upon stabiliz'n of electrolytes. Full anticoagulation for cardioembolic prophyl Isolation Anti-viral rx per ID Reassess liver fxn Simone Perez MD May 23, 2020 02:21
--- NOTE | 2020-05-23 04:00 | NUR ---
NURSE NOTES: Morning care was done. Cleaned Pt and applied lotion and cream. Changed wound dressing. Noted small amount soft BM. Changed position. Provided suction and oral care. On shelter monitor with ST and BP is stable. Will continue to monitor any change of condition.
[2020-05-23 05:20] LABS: HEMATOCRIT 36.5 % (37.0-47.0); HEMOGLOBIN 11.6 G/DL (12.0-16.0); MEAN CORPUSCULAR VOLUME 87 FL (80-99); PLATELET COUNT 191 K/UL (150-450); RED BLOOD COUNT 4.18 M/UL (4.20-5.40); RED CELL DISTRIBUTION WIDTH 18.8 % (11.6-14.8); WHITE BLOOD COUNT 18.5 K/UL (4.8-10.8)
[2020-05-23 05:49] LABS: ALBUMIN 1.1 G/DL (3.4-5.0); ALBUMIN/GLOBULIN RATIO 0.4 (1.0-2.7); BILIRUBIN,TOTAL 0.6 MG/DL (0.2-1.0); CALCIUM 7.6 MG/DL (8.5-10.1); POTASSIUM 4.7 MMOL/L (3.5-5.1)
[2020-05-23] MEDS: dilTIAZem HCl 60mg tab ORAL SCH ×3 (06:00→21:47)
--- NOTE | 2020-05-23 06:00 | NUR ---
NURSE NOTES: Suction and oral care was done. Turn and reposition. SaO2 99-100% with current Vent setting. Will continue to monitor nay change of condition.
[2020-05-23] MEDS ORDERED: NovoLOG Insulin Flexpen SUBQ SCH (06:30)
--- NOTE | 2020-05-23 06:46 | NUR ---
NURSE NOTES: Left message to Dr. Linn regarding AM result include Hgb:7.4, Na:130, K:3.0 and positive ESBL in urine and awaiting call back. Addendum: 05/23/20 at 0716 by MOISE CALDERON RN RN charting error. wrong Pt's charting.
--- NOTE | 2020-05-23 07:17 | NUR ---
NURSE HAND-OFF REPORT: Latest Vital Signs: Temperature 98.8 , Pulse 115 , B/P 109 /48 , Respiratory Rate 14 , O2 SAT 100 , Mechanical Ventilator, O2 Flow Rate 4.0 . Vital Sign Comment: EKG Rhythm: Sinus Tachycardia Rhythm change?: N Latest Lechuga Fall Score: 35 Fall Risk: Medium Risk Safety Measures: Call light Within Reach, Bed Alarm Zone 1, Side Rails Side Rails x3, Bed position Low and Locked. Fall Precautions: Yellow Socks Door Sign Patient Fall Education Report given to DAMIAN Jeffrey. Pt is resting on the bed and no sign of acute distress noted.
--- NOTE | 2020-05-23 07:40 | NUR ---
NURSE NOTES: LATE ENTRY: RECEIVED REPORT FROM DAMIAN DEAN. PT IN BED. A/OX2, FATIGUED. OPENS EYES SPONTANEOUS. ON MONITOR ST, BP STABLE. INTUBATED ETT AC 14, VT 500, PEEP 5, FI02 30%. SECRETIONS THIN, ORAL CARE PROVIDED. LUNG SOUNDS DIMINISHED, RHONCHI NOTED. ABDOMEN ROUND, NON TENDER. BOWEL SOUNDS HYPOACTIVE. OGT. TUBE FEEDING GLUCERNA 1.5 AT 40ML/HR. FLUSH 125, Q3HR. NO RESIDUALS. NO BM. BLADDER NON DISTENDED. KLINE DRAINING YELLOW URINE. SECURE AND NOT KINKED. SKIN- SEE ASSESSMENT. CAP REFILL< 3 SEC. NO JVD. PITTING EDEMA BILATERAL HANDS, +3. BILATERAL RADIAL AND PEDAL PULSES WEAK. IV ACCESS RT HAND 20G, PATENT. FLUIDS 1/2 NS AT 100ML/HR. SOFT WRIST RESTRAINTS BILATERAL NOTED. CIRCULATION CHECK AND ROM DONE. AIRBORNE ISOLATION. BED LOCKED, IN LOW POSITION. CALL LIGHT IN REACH. SIDE RAILS X2. WILL CONTINUE TO MONITOR PT. Addendum: 05/23/20 at 1859 by Georgiana Jeffrey RN REPORT FROM [facility]. [place]
[2020-05-23] MEDS: Eliquis 2.5mg tablet ORAL SCH ×2 (08:33→18:16)
[2020-05-23] MEDS: Aspirin EC 81mg tab ORAL SCH (08:33)
[2020-05-23] MEDS: Fluconazole 100mg tab ORAL SCH (08:33)
[2020-05-23] MEDS: Wixela 100/50 Inhaler - 60 dose INH SCH ×2 (10:00→22:00)
--- NOTE | 2020-05-23 10:00 | NUR ---
NURSE NOTES: PT FAMILY HERE TO VISIT. WAS GIVEN UPDATE ON SITUATION. OTHER FAMILY STOP BY LATER.
--- NOTE | 2020-05-23 10:19 | General Progress Note ---
Subjective ROS Limited/Unobtainable: No Constitutional: Reports: malaise, weakness HEENT: Reports: no symptoms Cardiovascular: Reports: no symptoms Respiratory: Reports: cough Gastrointestinal/Abdominal: Reports: difficulty swallowing Genitourinary: Reports: no symptoms Neurologic/Psychiatric: Reports: anxiety Endocrine: Reports: no symptoms Hematologic/Lymphatic: Reports: anemia Allergies: Coded Allergies: CIPROFLOXACIN (Verified Allergy, Unknown, 09/27/17) All Systems: reviewed and negative except above Subjective no events. not weaning. becomes tachycardic and tachypneic. no fever or chills. no sob. tolerating feeds. wbc remains elevated. Cr and sodium levels are improving. Objective Last 24 Hour Vital Signs Date Time Temp Pulse Resp B/P (MAP) Pulse Ox O2 Delivery O2 Flow Rate FiO2 05/23/20 09:00 115 15 135/57 (83) 100 05/23/20 08:00 115 05/23/20 08:00 30 05/23/20 08:00 115 17 105/53 (70) 100 05/23/20 07:00 115 14 109/48 (68) 100 05/23/20 06:00 113 99/51 05/23/20 06:00 113 14 99/51 (67) 100 05/23/20 05:00 111 14 108/52 (70) 100 05/23/20 04:00 Mechanical Ventilator Mechanical Ventilator 05/23/20 04:00 30 05/23/20 04:00 98.8 113 15 107/54 (71) 100 05/23/20 04:00 112 05/23/20 03:00 112 14 111/59 (76) 100 05/23/20 02:59 110 14 30 05/23/20 02:00 114 18 105/52 (69) 100 05/23/20 01:00 111 14 97/49 (65) 100 05/23/20 00:00 30 05/23/20 00:00 Mechanical Ventilator Mechanical Ventilator 05/23/20 00:00 113 05/23/20 00:00 100.0 113 14 97/54 (68) 100 05/22/20 23:00 114 15 30 05/22/20 23:00 114 14 91/52 (65) 100 05/22/20 22:22 99.9 05/22/20 22:00 120 17 97/52 (67) 100 05/22/20 22:00 120 97/52 05/22/20 21:00 100.3 119 15 100/57 (71) 100 05/22/20 20:00 30 05/22/20 20:00 118 05/22/20 20:00 Mechanical Ventilator Mechanical Ventilator 05/22/20 20:00 100.0 121 19 103/49 (67) 100 05/22/20 19:30 119 15 30 05/22/20 19:00 120 16 96/52 (67) 99 05/22/20 18:00 122 15 108/53 (71) 100 05/22/20 17:00 116 14 90/53 (65) 100 05/22/20 16:00 30 05/22/20 16:00 Mechanical Ventilator Mechanical Ventilator 05/22/20 16:00 100.1 117 15 90/58 (69) 100 05/22/20 16:00 120 05/22/20 15:15 117 17 30 05/22/20 15:00 121 14 103/56 (72) 100 05/22/20 14:00 115 14 107/59 (75) 100 05/22/20 14:00 115 92/58 05/22/20 13:00 119 14 98/55 (69) 100 05/22/20 12:00 115 05/22/20 12:00 30 05/22/20 12:00 Mechanical Ventilator Mechanical Ventilator 05/22/20 12:00 99.9 114 14 100/59 (73) 100 05/22/20 11:10 115 14 30 05/22/20 11:00 116 15 99/55 (70) 100 Intake and Output 05/22/20 05/23/20 19:00 07:00 Intake Total 2189.31391 ml 1555 ml Output Total 600 ml 580 ml Balance 1589.08683 ml 975 ml Free Water 525 ml IV Total 1199.85221 ml 1135 ml Tube Feeding 425 ml 420 ml Other 40 ml Output Urine Total 600 ml 580 ml # Bowel Movements 2 5 Laboratory Tests 05/23/20 03:40: White Blood Count 18.5H, Red Blood Count 4.18L, Hemoglobin 11.6L, Hematocrit 36.5L, Mean Corpuscular Volume 87, Mean Corpuscular Hemoglobin 27.8, Mean Corpuscular Hemoglobin Concent 31.8L, Red Cell Distribution Width 18.8H, Platelet Count 191, Mean Platelet Volume 5.2L, Neutrophils (%) (Auto) , Lymphocytes (%) (Auto) , Monocytes (%) (Auto) , Eosinophils (%) (Auto) , Basophils (%) (Auto) , Neutrophils % (Manual) [Pending], Lymphocytes % (Manual) [Pending], Platelet Estimate [Pending], Platelet Morphology [Pending], Sodium Level 142, Potassium Level 4.7, Chloride Level 109H, Carbon Dioxide Level 23, Anion Gap 10, Blood Urea Nitrogen 103H, Creatinine 2.0H, Estimat Glomerular Filtration Rate 29.1, Glucose Level 178H, Calcium Level 7.6L, Magnesium Level 2.3, Total Bilirubin 0.6, Aspartate Amino Transf (AST/SGOT) 124H, Alanine Aminotransferase (ALT/SGPT) 334H, Alkaline Phosphatase 233H, Pro-B-Type Natriuretic Peptide 85218N, Total Protein 4.2L, Albumin 1.1L, Globulin 3.1, Albumin/Globulin Ratio 0.4L Height (Feet): 5 Height (Inches): 3.00 Weight (Pounds): 160 Objective General Appearance: WD/WN, no apparent distress, alert. orally intubated EENT: PERRL/EOMI Neck: non-tender, normal alignment, supple Cardiovascular: normal rate, regular rhythm Respiratory/Chest: chest wall non-tender, lungs clear, normal breath sounds, no respiratory distress, no accessory muscle use Abdomen: normal bowel sounds, non tender, soft, no organomegaly Edema: no edema noted Arm (L), no edema noted Arm (R) Neurologic: unit coordinator II-XII grossly normal, alert, oriented x 3, responsive Skin: normal pigmentation Lymphatic: normal anterior cervical (L), normal anterior cervical (R) Assessment/Plan Problem List: (1) Pulmonary fibrosis ICD Codes: J84.10 - Pulmonary fibrosis, unspecified SNOMED: 40763176 (2) History of asthma ICD Codes: Z87.09 - Personal history of other diseases of the respiratory system SNOMED: 631264007 (3) Asthma ICD Codes: J45.909 - Unspecified asthma, uncomplicated SNOMED: 860960414 (4) NSTEMI (non-ST elevated myocardial infarction) ICD Codes: I21.4 - Non-ST elevation (NSTEMI) myocardial infarction SNOMED: 447041932 (5) Elevated troponin ICD Codes: R79.89 - Other specified abnormal findings of blood chemistry SNOMED: 248188451, 882517426, 998490788 (6) COPD (chronic obstructive pulmonary disease) ICD Codes: J44.9 - Chronic obstructive pulmonary disease, unspecified SNOMED: 17109518 (7) Atrial fibrillation with RVR ICD Codes: I48.91 - Unspecified atrial fibrillation SNOMED: 677543091061122 (8) Community acquired pneumonia ICD Codes: J18.9 - Pneumonia, unspecified organism SNOMED: 909135859 Status: stable Assessment/Plan: cont iv abx water flushes and repeat Na monitor renal fxn/lytes ngt feeds wean vent as able cont inhalers BP rx may need trach pt refusing keep dry dvt/stress ulcer prophylaxis skin care turn q2 critical and guarded Bradford Linn MD May 23, 2020 10:19
--- NOTE | 2020-05-23 11:09 | Pulmonology Progress Note ---
Subjective ROS Limited/Unobtainable: Yes Constitutional: Denies: fever Gastrointestinal/Abdominal: Denies: nausea, vomiting, diarrhea Musculoskeletal: Denies: pain Allergies: Coded Allergies: CIPROFLOXACIN (Verified Allergy, Unknown, 09/27/17) All Systems: reviewed and negative except above Subjective on vent- still not weaning well hypotensive and tachy persistent comfortable sedated reduced LOC ICU care reviewed Objective Last 24 Hour Vital Signs Date Time Temp Pulse Resp B/P (MAP) Pulse Ox O2 Delivery O2 Flow Rate FiO2 05/23/20 11:00 117 14 107/58 (74) 99 05/23/20 10:30 118 16 107/57 (74) 100 05/23/20 10:00 113 14 108/59 (75) 99 05/23/20 09:00 115 15 135/57 (83) 100 05/23/20 08:00 115 05/23/20 08:00 Mechanical Ventilator Mechanical Ventilator 05/23/20 08:00 30 05/23/20 08:00 96.8 115 17 105/53 (70) 100 05/23/20 07:00 115 14 109/48 (68) 100 05/23/20 06:00 113 99/51 05/23/20 06:00 113 14 99/51 (67) 100 05/23/20 05:00 111 14 108/52 (70) 100 05/23/20 04:00 Mechanical Ventilator Mechanical Ventilator 05/23/20 04:00 30 05/23/20 04:00 98.8 113 15 107/54 (71) 100 05/23/20 04:00 112 05/23/20 03:00 112 14 111/59 (76) 100 05/23/20 02:59 110 14 30 05/23/20 02:00 114 18 105/52 (69) 100 05/23/20 01:00 111 14 97/49 (65) 100 05/23/20 00:00 30 05/23/20 00:00 Mechanical Ventilator Mechanical Ventilator 05/23/20 00:00 113 05/23/20 00:00 100.0 113 14 97/54 (68) 100 05/22/20 23:00 114 15 30 05/22/20 23:00 114 14 91/52 (65) 100 05/22/20 22:22 99.9 05/22/20 22:00 120 17 97/52 (67) 100 05/22/20 22:00 120 97/52 05/22/20 21:00 100.3 119 15 100/57 (71) 100 05/22/20 20:00 30 05/22/20 20:00 118 05/22/20 20:00 Mechanical Ventilator Mechanical Ventilator 05/22/20 20:00 100.0 121 19 103/49 (67) 100 05/22/20 19:30 119 15 30 05/22/20 19:00 120 16 96/52 (67) 99 05/22/20 18:00 122 15 108/53 (71) 100 05/22/20 17:00 116 14 90/53 (65) 100 05/22/20 16:00 30 05/22/20 16:00 Mechanical Ventilator Mechanical Ventilator 05/22/20 16:00 100.1 117 15 90/58 (69) 100 05/22/20 16:00 120 05/22/20 15:15 117 17 30 05/22/20 15:00 121 14 103/56 (72) 100 05/22/20 14:00 115 14 107/59 (75) 100 05/22/20 14:00 115 92/58 05/22/20 13:00 119 14 98/55 (69) 100 05/22/20 12:00 115 05/22/20 12:00 30 05/22/20 12:00 Mechanical Ventilator Mechanical Ventilator 05/22/20 12:00 99.9 114 14 100/59 (73) 100 05/22/20 11:10 115 14 30 Intake and Output 05/22/20 05/23/20 19:00 07:00 Intake Total 2189.97508 ml 1555 ml Output Total 600 ml 580 ml Balance 1589.23681 ml 975 ml Free Water 525 ml IV Total 1199.33975 ml 1135 ml Tube Feeding 425 ml 420 ml Other 40 ml Output Urine Total 600 ml 580 ml # Bowel Movements 2 5 Objective deferred due to COVID Laboratory Tests 05/23/20 03:40: White Blood Count 18.5H, Red Blood Count 4.18L, Hemoglobin 11.6L, Hematocrit 36.5L, Mean Corpuscular Volume 87, Mean Corpuscular Hemoglobin 27.8, Mean Corpus cular Hemoglobin Concent 31.8L, Red Cell Distribution Width 18.8H, Platelet Count 191, Mean Platelet Volume 5.2L, Neutrophils (%) (Auto) , Lymphocytes (%) (Auto) , Monocytes (%) (Auto) , Eosinophils (%) (Auto) , Basophils (%) (Auto) , Neutrophils % (Manual) [Pending], Lymphocytes % (Manual) [Pending], Platelet Estimate [Pending], Platelet Morphology [Pending], Sodium Level 142, Potassium Level 4.7, Chloride Level 109H, Carbon Dioxide Level 23, Anion Gap 10, Blood Urea Nitrogen 103H, Creatinine 2.0H, Estimat Glomerular Filtration Rate 29.1, Glucose Level 178H, Calcium Level 7.6L, Magnesium Level 2.3, Total Bilirubin 0.6, Aspartate Amino Transf (AST/SGOT) 124H, Alanine Aminotransferase (ALT/SGPT) 334H, Alkaline Phosphatase 233H, Pro-B-Type Natriuretic Peptide 53504G, Total Protein 4.2L, Albumin 1.1L, Globulin 3.1, Albumin/Globulin Ratio 0.4L Current Medications Medications (Trade) Dose Ordered Sig/Ghislaine Route PRN Reason Start Time Stop Time Status Last Admin Dose Admin Acetaminophen (Tylenol) 500 mg Q4H PRN ORAL Mild Pain (Pain Scale 1-3) 05/11/20 20:00 06/02/20 19:59 05/22/20 21:52 Albuterol Sulfate (Proventil MDI) 2 puff Q4H PRN INH Shortness of Breath 05/11/20 20:00 08/01/20 11:59 05/13/20 10:30 Apixaban (Eliquis) 2.5 mg BID ORAL 05/12/20 09:00 08/01/20 17:59 05/23/20 08:33 Aspirin (Ecotrin) 81 mg DAILY ORAL 05/12/20 09:00 06/17/20 15:59 05/23/20 08:33 Dextrose (Dextrose 50%) 25 ml Q30M PRN IV Hypoglycemia 05/22/20 18:30 08/20/20 18:29 Dextrose (Dextrose 50%) 50 ml Q30M PRN IV Hypoglycemia 05/22/20 18:30 08/20/20 18:29 Diltiazem HCl (Cardizem Tab) 60 mg EVERY 8 HOURS ORAL 05/16/20 06:00 06/15/20 05:59 05/20/20 06:01 Fluconazole (Diflucan) 100 mg DAILY ORAL 05/20/20 13:00 05/27/20 12:59 05/23/20 08:33 Insulin Aspart (NovoLOG) Q6HR SUBQ 05/23/20 00:00 08/20/20 20:59 05/23/20 06:03 Pantoprazole (Protonix) 40 mg DAILY ORAL 05/12/20 09:00 06/02/20 15:59 05/23/20 08:33 Salmeterol Xinafoate/ Fluticasone (Advair 100/50 Diskus) 1 puffs BIDRT INH 05/11/20 22:00 08/09/20 21:59 05/16/20 09:02 Sodium Chloride 1,000 ml @ 100 mls/hr Q10H IV 05/22/20 01:45 06/21/20 01:44 05/23/20 07:45 Assessment/Plan Assessment/Plan Impression: COVID-19 Chronic obstructive pulmonary disease/Asthma Community acquired pneumonia Atrial fibrillation with RVR Elevated troponin Congestive heart Failure sinus tachycardia Hypoxemia transaminitis with gallstones consider cholecystitis acute on chronic renal failure acute respiratory failure hypotension tachycardia Plan ID noted bolus fluids and monitor vitals Vent support/unable to wean wean oxygen - low flow feeds per dietary and monitor residuals IV therapy noted Bronchodilator therapy Eliquis and monitor HH Monitor labs/ renal follow up - renal function still reduced Covid 19 Isolation- per ID nutrition and NG feeds reviewed care and optimize position change and monitor skin surgical follow up noted monitor protein levels and adjust will d/w daughter; trach likely needed position change medications/laboratory data/nursing notes/ICU care reviewed in detail note reviewed and edited care discussed with RN and RT ICU time spent >40 minutes Aaron Jefferson MD May 23, 2020 11:08
--- NOTE | 2020-05-23 11:20 | NUR ---
NURSE NOTES: MD. REYES, HERE TO SEE PT. WAS INFORMED OF PT DROWSINESS. EDEMA OF BILATERAL HANDS +2 PITTING. ASKED FOR CLARIFICATION ON MEDICATION ORAL ZAPATA, PT INTUBATED, WANT D/C OR HOLD. RECEIVED ORDER TO HOLD MEDICATION.
--- NOTE | 2020-05-23 13:13 | NUR ---
NURSE NOTES: LATE ENTRY: PT A/OX2, OPENS EYES SPONTANEOUS. ON MONITOR ST, BP STABLE. INTUBATED ETT AC 14, VT 500, PEEP 5, FI02 30%. SECRETIONS THIN, RAZA. ABDOMEN ROUND, NON TENDER. OGT. TUBE FEEDING GLUCERNA 1.5 AT 40ML/HR. FLUSH 125, Q3HR. NO RESIDUALS. ONE BM, LOOSE, BROWN. KLINE DRAINING YELLOW URINE. SEDIMENT NOTED. PITTING EDEMA BILATERAL HANDS, +3. EXTREMITIES ELEVATED ON PILLOWS. BILATERAL RADIAL AND PEDAL PULSES WEAK. IV ACCESS RT HAND 20G, PATENT. FLUIDS 1/2 NS AT 100ML/HR. SOFT WRIST RESTRAINTS BILATERAL NOTED. CIRCULATION CHECK. BED IN LOW POSITION. CALL LIGHT IN REACH. SIDE RAILS X2. WILL CONTINUE TO MONITOR PT.
--- NOTE | 2020-05-23 13:22 | Nephrology Progress Note ---
Assessment/Plan Plan Severe Prerenal Azotemia due to hypoperfusion. MOF due to Covid 19 MOF. Poor Prognosis. Subjective Subjective Confused Objective Objective Last 24 Hour Vital Signs Date Time Temp Pulse Resp B/P (MAP) Pulse Ox O2 Delivery O2 Flow Rate FiO2 05/23/20 11:22 119 14 30 05/23/20 11:00 117 14 107/58 (74) 99 05/23/20 10:30 118 16 107/57 (74) 100 05/23/20 10:00 113 14 108/59 (75) 99 05/23/20 09:00 115 15 135/57 (83) 100 05/23/20 08:00 115 05/23/20 08:00 Mechanical Ventilator Mechanical Ventilator 05/23/20 08:00 30 05/23/20 08:00 96.8 115 17 105/53 (70) 100 05/23/20 07:24 115 14 30 05/23/20 07:00 115 14 109/48 (68) 100 05/23/20 06:00 113 99/51 05/23/20 06:00 113 14 99/51 (67) 100 05/23/20 05:00 111 14 108/52 (70) 100 05/23/20 04:00 Mechanical Ventilator Mechanical Ventilator 05/23/20 04:00 30 05/23/20 04:00 98.8 113 15 107/54 (71) 100 05/23/20 04:00 112 05/23/20 03:00 112 14 111/59 (76) 100 05/23/20 02:59 110 14 30 05/23/20 02:00 114 18 105/52 (69) 100 05/23/20 01:00 111 14 97/49 (65) 100 05/23/20 00:00 30 05/23/20 00:00 Mechanical Ventilator Mechanical Ventilator 05/23/20 00:00 113 05/23/20 00:00 100.0 113 14 97/54 (68) 100 05/22/20 23:00 114 15 30 05/22/20 23:00 114 14 91/52 (65) 100 05/22/20 22:22 99.9 05/22/20 22:00 120 17 97/52 (67) 100 05/22/20 22:00 120 97/52 05/22/20 21:00 100.3 119 15 100/57 (71) 100 05/22/20 20:00 30 05/22/20 20:00 118 05/22/20 20:00 Mechanical Ventilator Mechanical Ventilator 05/22/20 20:00 100.0 121 19 103/49 (67) 100 05/22/20 19:30 119 15 30 05/22/20 19:00 120 16 96/52 (67) 99 05/22/20 18:00 122 15 108/53 (71) 100 05/22/20 17:00 116 14 90/53 (65) 100 05/22/20 16:00 30 05/22/20 16:00 Mechanical Ventilator Mechanical Ventilator 05/22/20 16:00 100.1 117 15 90/58 (69) 100 05/22/20 16:00 120 05/22/20 15:15 117 17 30 05/22/20 15:00 121 14 103/56 (72) 100 05/22/20 14:00 115 14 107/59 (75) 100 05/22/20 14:00 115 92/58 Intake and Output 05/22/20 05/23/20 19:00 07:00 Intake Total 2189.07622 ml 1555 ml Output Total 600 ml 580 ml Balance 1589.80513 ml 975 ml Free Water 525 ml IV Total 1199.11929 ml 1135 ml Tube Feeding 425 ml 420 ml Other 40 ml Output Urine Total 600 ml 580 ml # Bowel Movements 2 5 Laboratory Tests 05/23/20 03:40: White Blood Count 18.5H, Red Blood Count 4.18L, Hemoglobin 11.6L, Hematocrit 36.5L, Mean Corpuscular Volume 87, Mean Corpuscular Hemoglobin 27.8, Mean Corpuscular Hemoglobin Concent 31.8L, Red Cell Distribution Width 18.8H, Platelet Count 191, Mean Platelet Volume 5.2L, Neutrophils (%) (Auto) , Lymphocytes (%) (Auto) , Monocytes (%) (Auto) , Eosinophils (%) (Auto) , Basophils (%) (Auto) , Differential Total Cells Counted 100, Neutrophils % (Manual) 91H, Lymphocytes % (Manual) 6L, Monocytes % (Manual) 3, Eosinophils % (Manual) 0, Basophils % (Manual) 0, Band Neutrophils 0, Platelet Estimate Adequate, Platelet Morphology Normal, Hypochromasia 1+, Anisocytosis 2+, Sodium Level 142, Potassium Level 4.7, Chloride Level 109H, Carbon Dioxide Level 23, Anion Gap 10, Blood Urea Nitrogen 103H, Creatinine 2.0H, Estimat Glomerular Filtration Rate 29.1, Glucose Level 178H, Calcium Level 7.6L, Magnesium Level 2.3, Total Bilirubin 0.6, Aspartate Amino Transf (AST/SGOT) 124H, Alanine Aminotransferase (ALT/SGPT) 334H, Alkaline Phosphatase 233H, Pro-B-Type Natriuretic Peptide 70818T, Total Protein 4.2L, Albumin 1.1L, Globulin 3.1, Albumin/Globulin Ratio 0.4L 05/23/20 13:10: POC Whole Blood Glucose 168H Height (Feet): 5 Height (Inches): 3.00 Weight (Pounds): 160 Objective CV Tach +Irr Lungs B Ronchi Abd SNT. BS + E +3 edema Ruth Coyne MD May 23, 2020 13:22
[2020-05-23] MEDS: Acetaminophen 500mg (ES) tab ORAL PRN ×2 (13:26→21:02)
--- NOTE | 2020-05-23 16:00 | NUR ---
NURSE NOTES: LATE ENTRY: PT FAMILY HERE TO SEE PT. WAS UPDATED ON STATUS. PT AWAKE, ABLE TO WAVE TO FAMILY. VSS.
--- NOTE | 2020-05-23 18:27 | NUR ---
NURSE NOTES: PT CLEANED AND REPOSITION. ORAL CARE PROVIDED, SUCTIONED. I/O COLLECTED. LINEN CHANGED. HOB >30. TUBE FEEDING RUNNING. R.T REPLACED ANCHOR FAST. IV PATENT. MEDICATION ADMINISTERED. ACCU CHK COMPLETED AND COVERAGE GIVEN.
--- NOTE | 2020-05-23 19:25 | NUR ---
HAND-OFF: Report given to MARICEL Arguelles PT IN DISTRESS.
--- NOTE | 2020-05-23 19:47 | NUR ---
NURSE NOTES: Received report from DAMIAN Wang, airborne isolation precautions observed, pt. in bed awake with eyes open, appears to be alert to name, no signs or symptoms of acute cardiac or respiratory distress noted, bed alarm on, side rails up x's 3 and safety brakes engaged, HOB elevated-aspiration precautions noted, pt. has bilateral soft restraints- both removed- skin intact and pulses palpable- restraints reapplied, ETT 7.5- 20cm lip line, pt. appears to be tolerating current vent settings well- AC 14, TV 500, Fio2 at 30% ad peep 5- no distress noted, pt. has OGT tube feeding running Glucerna 1.5 @40cc/hr, [place] intact and draining to gravity, pt. appears clean and dry, Rt. hand 20G 1/2 NS at 100cc/hr- IV intact and patent, safety measures continued, will continue with plan of care.
--- NOTE | 2020-05-23 20:05 | Surgery Progress Note ---
Surgery Progress Note Subjective Additional Comments no acute events Objective Last 24 Hour Vital Signs Date Time Temp Pulse Resp B/P (MAP) Pulse Ox O2 Delivery O2 Flow Rate FiO2 05/23/20 19:00 117 16 96/55 (69) 99 05/23/20 18:00 115 15 96/58 (71) 100 05/23/20 17:00 113 15 101/54 (70) 99 05/23/20 17:00 99.0 116 16 101/54 (70) 100 05/23/20 16:00 118 15 93/57 (69) 100 05/23/20 16:00 114 05/23/20 16:00 Mechanical Ventilator Mechanical Ventilator 05/23/20 16:00 30 05/23/20 15:21 116 16 30 05/23/20 15:00 118 15 93/54 (67) 100 05/23/20 14:00 120 16 106/66 (79) 100 05/23/20 13:30 119 14 101/62 (75) 99 05/23/20 13:28 119 103/59 05/23/20 13:00 122 15 103/59 (74) 100 05/23/20 12:30 117 14 108/57 (74) 99 05/23/20 12:00 30 05/23/20 12:00 Mechanical Ventilator Mechanical Ventilator 05/23/20 12:00 100.0 118 14 106/57 (73) 100 05/23/20 12:00 117 05/23/20 11:35 30 05/23/20 11:32 30 05/23/20 11:22 119 14 30 05/23/20 11:00 117 14 107/58 (74) 99 05/23/20 10:30 118 16 107/57 (74) 100 05/23/20 10:00 113 14 108/59 (75) 99 05/23/20 09:00 115 15 135/57 (83) 100 05/23/20 08:00 115 05/23/20 08:00 Mechanical Ventilator Mechanical Ventilator 05/23/20 08:00 30 05/23/20 08:00 96.8 115 17 105/53 (70) 100 05/23/20 07:24 115 14 30 05/23/20 07:00 115 14 109/48 (68) 100 05/23/20 06:00 113 99/51 05/23/20 06:00 113 14 99/51 (67) 100 05/23/20 05:00 111 14 108/52 (70) 100 05/23/20 04:00 Mechanical Ventilator Mechanical Ventilator 05/23/20 04:00 30 05/23/20 04:00 98.8 113 15 107/54 (71) 100 05/23/20 04:00 112 05/23/20 03:00 112 14 111/59 (76) 100 05/23/20 02:59 110 14 30 05/23/20 02:00 114 18 105/52 (69) 100 05/23/20 01:00 111 14 97/49 (65) 100 05/23/20 00:00 30 05/23/20 00:00 Mechanical Ventilator Mechanical Ventilator 05/23/20 00:00 113 05/23/20 00:00 100.0 113 14 97/54 (68) 100 05/22/20 23:00 114 15 30 05/22/20 23:00 114 14 91/52 (65) 100 05/22/20 22:22 99.9 05/22/20 22:00 120 17 97/52 (67) 100 05/22/20 22:00 120 97/52 05/22/20 21:00 100.3 119 15 100/57 (71) 100 I&O Intake and Output 05/22/20 05/23/20 18:59 06:59 Intake Total 2039.22826 ml 1705 ml Output Total 635 ml 565 ml Balance 1404.14319 ml 1140 ml Free Water 400 ml 125 ml IV Total 1199.93488 ml 1135 ml Tube Feeding 420 ml 425 ml Other 20 ml 20 ml Output Urine Total 635 ml 565 ml # Bowel Movements 2 5 Dressing: other Cardiovascular: RSR Respiratory: decreased breath sounds Abdomen: soft, non-tender, present bowel sounds Extremities: no tenderness, no cyanosis Laboratory Tests Test 05/23/20 03:40 05/23/20 13:10 05/23/20 18:04 White Blood Count 18.5 K/UL (4.8-10.8) H Red Blood Count 4.18 M/UL (4.20-5.40) L Hemoglobin 11.6 G/DL (12.0-16.0) L Hematocrit 36.5 % (37.0-47.0) L Mean Corpuscular Volume 87 FL (80-99) Mean Corpuscular Hemoglobin 27.8 PG (27.0-31.0) Mean Corpuscular Hemoglobin Concent 31.8 G/DL (32.0-36.0) L Red Cell Distribution Width 18.8 % (11.6-14.8) H Platelet Count 191 K/UL (150-450) Mean Platelet Volume 5.2 FL (6.5-10.1) L Neutrophils (%) (Auto) % (45.0-75.0) Lymphocytes (%) (Auto) % (20.0-45.0) Monocytes (%) (Auto) % (1.0-10.0) Eosinophils (%) (Auto) % (0.0-3.0) Basophils (%) (Auto) % (0.0-2.0) Differential Total Cells Counted 100 Neutrophils % (Manual) 91 % (45-75) H Lymphocytes % (Manual) 6 % (20-45) L Monocytes % (Manual) 3 % (1-10) Eosinophils % (Manual) 0 % (0-3) Basophils % (Manual) 0 % (0-2) Band Neutrophils 0 % (0-8) Platelet Estimate Adequate Platelet Morphology Normal Hypochromasia 1+ Anisocytosis 2+ Sodium Level 142 MMOL/L (136-145) Potassium Level 4.7 MMOL/L (3.5-5.1) Chloride Level 109 MMOL/L (98-107) H Carbon Dioxide Level 23 MMOL/L (21-32) Anion Gap 10 mmol/L (5-15) Blood Urea Nitrogen 103 mg/dL (7-18) H Creatinine 2.0 MG/DL (0.55-1.30) H Estimat Glomerular Filtration Rate 29.1 mL/min (>60) Glucose Level 178 MG/DL (74-106) H Calcium Level 7.6 MG/DL (8.5-10.1) L Magnesium Level 2.3 MG/DL (1.8-2.4) Total Bilirubin 0.6 MG/DL (0.2-1.0) Aspartate Amino Transf (AST/SGOT) 124 U/L (15-37) H Alanine Aminotransferase (ALT/SGPT) 334 U/L (12-78) H Alkaline Phosphatase 233 U/L (46-116) H Pro-B-Type Natriuretic Peptide 50028 pg/mL (0-125) H Total Protein 4.2 G/DL (6.4-8.2) L Albumin 1.1 G/DL (3.4-5.0) L Globulin 3.1 g/dL Albumin/Globulin Ratio 0.4 (1.0-2.7) L POC Whole Blood Glucose 168 MG/DL (74-106) H 174 MG/DL (74-106) H Plan Problems: (1) Elevated troponin (2) Atrial fibrillation with RVR (3) COVID-19 Assessment & Plan: ++ as per pulm and ID DAILY ESTIMATED NEEDS: Needs based on Critical Care, ARF/ 56kg abw 22-28 kcals/kg 7355-4105 total kcals 0.8-1.5 (increase w/ renal improvement) g protein/kg 45-84 g total protein 25-30 mL/kg 6169-4542 total fluid mLs NUTRITION DIAGNOSIS: * Altered nutrition related lab values r/t clinical status as evidenced by elev BUN(82), creat(3.8) trending up, critical ABG (low pH, elev CO2)-> now improved. * Swallowing difficulty R/T respiratory status as evidenced by s/p oral intubation, on OGT feeds. 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: COUPLER eval post extubation ENTERAL NUTRITION RECOMMENDATIONS: Nepro @ 35ml/hr x 24 hrs to provide 840ml, 1512kcal, 68g prot, 610ml free water * W/ worsening renal fxn, rec to continue Nepro * As tolerated, increase goal rate to 35ml/hr x 24 hrs to meet 100% est katelyn al/prot needs ADDITIONAL RECOMMENDATIONS: 1) Calibrated bedscale wt 2) Monitor renal fxn and lytes, need to continue Nepro Creat trending up 3) Rec niss w/ solumedrol (4) Community acquired pneumonia (5) COPD (chronic obstructive pulmonary disease) (6) Pulmonary fibrosis (7) Asthma (8) History of asthma (9) NSTEMI (non-ST elevated myocardial infarction) (10) Moderate to severe pulmonary hypertension (11) Asthma exacerbation (12) Abnormal LFTs Assessment & Plan: afebrile, HD stable labs noted lft's elevated US reviewed exam benign gb likely reactive from underlying pathology unlikely cholecystitis clinically fluid overload trend labs will monitor exam clinically covid + prognosis guarded cxr reviewed on abx worsening plan repeat US - noted cannot get hida given covid labs noted worsening leukocytosis Gallbladder demonstrates wall thickening and wall edema, gallbladder wall measuring up to 6 mm thick. There are gallstones. Sonographic Escoto's sign is negative. Common bile duct measures 3 mm in diameter. No intrahepatic biliary ductal dilatation. Liver demonstrates normal echogenicity, no focal abnormality. Portal vein and hepatic veins are patent. Pancreas is unremarkable. Spleen is unremarkable. Left kidney measures 9.2 cm in length. Right kidney measures 9.9 cm length. Both kidneys demonstrate normal echogenicity. There is no hydronephrosis. Small cyst is seen in the right kidney. . Abdominal aorta was not imaged . There is trace ascites. There is a small right pleural effusion incidentally noted Impression: Small right pleural effusion. Trace ascites Cholelithiasis. Gallbladder wall thickening may be related to hemodynamic factors causing the pleural fluid and ascites, but could also indicate acute cholecystitis. Consider nuclear medicine hepatobiliary scan if there is high clinical suspicion. Negative for dilated bile ducts Small right renal cyst incidentally noted (13) Acute respiratory failure with hypoxia Quentin Sanchez May 23, 2020 20:05
--- NOTE | 2020-05-23 20:30 | NUR ---
NURSE NOTES: pt. warm to touch- temp 99.9- axillary- pulse 116-cooling measures applied- pt. remains stable- will continue to monitor pt. and with plan of care.
--- NOTE | 2020-05-23 21:00 | NUR ---
NURSE NOTES: Bedside assessment performed, assessed pt with a FLACC scale of 2 noted. PRN Tylenol administered with primary RN. No adverse effects noted at this time. Pt remains clean and dry. Pt repositioned for comfort and safety. Fall, Aspiration and Skin precautions observed. Pt remains resting in bed; Bed remains in the lowest position with the safety wheels engaged, call light within reach, side rails up x3 and bed alarm activated. Will continue plan of care. Will continue to monitor.
--- NOTE | 2020-05-23 21:14 | Cardiology Progress Note ---
Subjective DATE OF SERVICE: May 23, 2020 Condition remains critical; patient remains on [facility] ventilation - failed wean. Monitor: AFib with episodes of RVR and nonsustained VTach. Lactic acidosis resolved BP remains tenuous, as well as acid-base status. Sodium levels have normalized Episodes of tachyarrhythmias noted. CXR (05/19) reviewed: bilateral patchy infiltrates, left appears chronic, but right acute and worse. ICU logs and cardiology care plan reviewed and updated Objective Last 24 Hour Vital Signs Date Time Temp Pulse Resp B/P (MAP) Pulse Ox O2 Delivery O2 Flow Rate FiO2 05/23/20 20:00 30 05/23/20 20:00 Mechanical Ventilator Mechanical Ventilator 05/23/20 20:00 97.8 122 20 99/63 (75) 100 05/23/20 19:00 119 14 30 05/23/20 19:00 117 16 96/55 (69) 99 05/23/20 18:00 115 15 96/58 (71) 100 05/23/20 17:00 113 15 101/54 (70) 99 05/23/20 17:00 99.0 116 16 101/54 (70) 100 05/23/20 16:00 118 15 93/57 (69) 100 05/23/20 16:00 114 05/23/20 16:00 Mechanical Ventilator Mechanical Ventilator 05/23/20 16:00 30 05/23/20 15:21 116 16 30 05/23/20 15:00 118 15 93/54 (67) 100 05/23/20 14:00 120 16 106/66 (79) 100 05/23/20 13:30 119 14 101/62 (75) 99 05/23/20 13:28 119 103/59 05/23/20 13:00 122 15 103/59 (74) 100 05/23/20 12:30 117 14 108/57 (74) 99 05/23/20 12:00 30 05/23/20 12:00 Mechanical Ventilator Mechanical Ventilator 05/23/20 12:00 100.0 118 14 106/57 (73) 100 05/23/20 12:00 117 05/23/20 11:35 30 05/23/20 11:32 30 05/23/20 11:22 119 14 30 05/23/20 11:00 117 14 107/58 (74) 99 05/23/20 10:30 118 16 107/57 (74) 100 05/23/20 10:00 113 14 108/59 (75) 99 05/23/20 09:00 115 15 135/57 (83) 100 05/23/20 08:00 115 05/23/20 08:00 Mechanical Ventilator Mechanical Ventilator 05/23/20 08:00 30 05/23/20 08:00 96.8 115 17 105/53 (70) 100 05/23/20 07:24 115 14 30 05/23/20 07:00 115 14 109/48 (68) 100 05/23/20 06:00 113 99/51 05/23/20 06:00 113 14 99/51 (67) 100 05/23/20 05:00 111 14 108/52 (70) 100 05/23/20 04:00 Mechanical Ventilator Mechanical Ventilator 05/23/20 04:00 30 05/23/20 04:00 98.8 113 15 107/54 (71) 100 05/23/20 04:00 112 05/23/20 03:00 112 14 111/59 (76) 100 05/23/20 02:59 110 14 30 05/23/20 02:00 114 18 105/52 (69) 100 05/23/20 01:00 111 14 97/49 (65) 100 05/23/20 00:00 30 05/23/20 00:00 Mechanical Ventilator Mechanical Ventilator 05/23/20 00:00 113 05/23/20 00:00 100.0 113 14 97/54 (68) 100 05/22/20 23:00 114 15 30 05/22/20 23:00 114 14 91/52 (65) 100 05/22/20 22:22 99.9 05/22/20 22:00 120 17 97/52 (67) 100 05/22/20 22:00 120 97/52 ROS: unchanged from my eval of 05/03/20 HEENT: Orally intubated, Mechanically Ventilated, Thin secretions ET Tube RHYTHM: Afib LUNGS: no accessory muscle use, expiratory wheezing, diminished breath sounds CARDIAC: normal S1 and S2, no murmur, irregularly irregular ABDOMEN: normal bowel sounds, non tender, soft, no organomegaly EXTREMITIES: no calf tenderness, +1 edema Laboratory Tests Test 05/23/20 03:40 05/23/20 13:10 05/23/20 18:04 White Blood Count 18.5 K/UL (4.8-10.8) H Red Blood Count 4.18 M/UL (4.20-5.40) L Hemoglobin 11.6 G/DL (12.0-16.0) L Hematocrit 36.5 % (37.0-47.0) L Mean Corpuscular Volume 87 FL (80-99) Mean Corpuscular Hemoglobin 27.8 PG (27.0-31.0) Mean Corpuscular Hemoglobin Concent 31.8 G/DL (32.0-36.0) L Red Cell Distribution Width 18.8 % (11.6-14.8) H Platelet Count 191 K/UL (150-450) Mean Platelet Volume 5.2 FL (6.5-10.1) L Neutrophils (%) (Auto) % (45.0-75.0) Lymphocytes (%) (Auto) % (20.0-45.0) Monocytes (%) (Auto) % (1.0-10.0) Eosinophils (%) (Auto) % (0.0-3.0) Basophils (%) (Auto) % (0.0-2.0) Differential Total Cells Counted 100 Neutrophils % (Manual) 91 % (45-75) H Lymphocytes % (Manual) 6 % (20-45) L Monocytes % (Manual) 3 % (1-10) Eosinophils % (Manual) 0 % (0-3) Basophils % (Manual) 0 % (0-2) Band Neutrophils 0 % (0-8) Platelet Estimate Adequate Platelet Morphology Normal Hypochromasia 1+ Anisocytosis 2+ Sodium Level 142 MMOL/L (136-145) Potassium Level 4.7 MMOL/L (3.5-5.1) Chloride Level 109 MMOL/L (98-107) H Carbon Dioxide Level 23 MMOL/L (21-32) Anion Gap 10 mmol/L (5-15) Blood Urea Nitrogen 103 mg/dL (7-18) H Creatinine 2.0 MG/DL (0.55-1.30) H Estimat Glomerular Filtration Rate 29.1 mL/min (>60) Glucose Level 178 MG/DL (74-106) H Calcium Level 7.6 MG/DL (8.5-10.1) L Magnesium Level 2.3 MG/DL (1.8-2.4) Total Bilirubin 0.6 MG/DL (0.2-1.0) Aspartate Amino Transf (AST/SGOT) 124 U/L (15-37) H Alanine Aminotransferase (ALT/SGPT) 334 U/L (12-78) H Alkaline Phosphatase 233 U/L (46-116) H Pro-B-Type Natriuretic Peptide 35994 pg/mL (0-125) H Total Protein 4.2 G/DL (6.4-8.2) L Albumin 1.1 G/DL (3.4-5.0) L Globulin 3.1 g/dL Albumin/Globulin Ratio 0.4 (1.0-2.7) L POC Whole Blood Glucose 168 MG/DL (74-106) H 174 MG/DL (74-106) H Assessment/Plan Assessment/Plan Acute on chronic respiratory acidosis Acute respiratory failure Shock LE edema due to severe pulmonary hypertension and right heart strain COPD exacerb with active bronchospasm Lactic acidosis COVID 19 PNA Acute on chr renal failure - now with hyperkalemia Chronic systolic/diastolic CHF Pulmonary fibrosis with chronic hypoxia Paroxysmal AFib with RVR Hx Multifocal atrial arrhythmias Pulmonary HTN - severe Hx NSVTach Acute myocardial ischemia Worsening transaminitis Vent support with on-going weaning efforts Hold diltiazem for low BP, but titrate for optimal rate control Steroids per pulmonary Inhaled bronchodilators IVF discontinued; reassess for diuresis. Full anticoagulation for cardioembolic prophyl Isolation Anti-viral rx per ID Monitor liver fxn Simone Perez MD May 23, 2020 21:14
--- NOTE | 2020-05-23 21:40 | NUR ---
NURSE NOTES: cooling measures appear to be successful- temp trending down- 98.4 axillary, will continue to monitor pt. and with plan of care.
--- NOTE | 2020-05-23 22:00 | NUR ---
NURSE NOTES: pt. remains stable- oral care provided- pt. appears to be tolerating current vent settings- no distress noted, will continue to monitor pt. and with plan of care.
--- NOTE | 2020-05-23 22:14 | NUR ---
NURSE NOTES: Advair not administered- per DR. Jefferson to hold dose for now.
--- NOTE | 2020-05-23 23:29 | NUR ---
NURSE NOTES: bed bath given- oral care provided, repositioned and turned pt.-pt. remains stable- will continue to monitor pt. and with plan of care.
[2020-05-24] VITALS (27 sets, daily range): BP systolic 87–113; BP diastolic 45–69
--- NOTE | 2020-05-24 01:05 | NUR ---
NURSE NOTES: pt. warm to touch- temp 99.7- axillary- pulse 118-cooling measures applied- pt. remains stable- will continue to monitor pt. and with plan of care.
--- NOTE | 2020-05-24 01:12 | NUR ---
NURSE NOTES: Bedside assessment performed, assessed pt with a FLACC scale of 2 noted. Will administer PRN Tylenol administered- as ordered,Pt remains clean and dry. Pt repositioned for comfort and safety. Fall, Aspiration and Skin precautions observed. Pt remains resting in bed; Will continue plan of care. Will continue to monitor pt.
[2020-05-24] MEDS: Acetaminophen 500mg (ES) tab ORAL PRN ×2 (01:19→23:42)
--- NOTE | 2020-05-24 02:11 | NUR ---
NURSE NOTES: cooling measures appear to be successful- temp trending down- 98.1 axillary, will continue to monitor pt. and with plan of care.
--- NOTE | 2020-05-24 03:17 | NUR ---
NURSE NOTES: oral care provided, repositioned and turned pt.-pt. remains stable- cooling measure continued, will continue to monitor pt. and with plan of care.
--- NOTE | 2020-05-24 04:43 | NUR ---
NURSE NOTES: oral care provided, pt. remains stable- no apparent distress noted- cooling measure continued, HOB elevated- aspiration and skin precautions observed, will continue to monitor pt. and with plan of care.
[2020-05-24] MEDS: NovoLOG Insulin Flexpen SUBQ SCH ×3 (05:13→17:31)
[2020-05-24] MEDS: dilTIAZem HCl 60mg tab ORAL SCH ×3 (05:20→22:00)
--- NOTE | 2020-05-24 07:05 | NUR ---
NURSE HAND-OFF REPORT: Latest Vital Signs: Temperature 98.0 , Pulse 109 , B/P 93 /67 , Respiratory Rate 20 , O2 SAT 100 , Mechanical Ventilator, O2 Flow Rate 4.0 . Vital Sign Comment: EKG Rhythm: Sinus Tachycardia Rhythm change?: N MD Notified?: MD Response: Latest Lechuga Fall Score: 35 Fall Risk: Medium Risk Safety Measures: Call light Within Reach, Bed Alarm Zone 1, Side Rails Side Rails x3, Bed position Low and Locked. Fall Precautions: Yellow Socks Report given to João gan, pt. remains stable and no signs of distress noted- nurse aware to f/u on any abnormal am labs.
--- NOTE | 2020-05-24 07:20 | NUR ---
NURSE NOTES: LATE ENTRY: RECEIVED REPORT FROM DAMIAN CONNELLY. PT IN BED. A/OX2, SELF AND PLACE. RESTLESS, FLAT EFFECT. OPENS EYES SPONTANEOUS. AX TEMP 100.4, COOLING MEASURES STARTED. ON MONITOR ST, BP STABLE. INTUBATED ETT AC 14, VT 500, PEEP 5, FI02 30%. SECRETIONS TENACIOUS, SUCTION VIA ORAL CAVITY. LUNG SOUNDS RHONCHI NOTED BILATERAL. ABDOMEN ROUND, NON TENDER. BOWEL SOUNDS HYPERACTIVE. OGT IN PLACE. TUBE FEEDING GLUCERNA 1.5, AT 40ML/HR. NO RESIDUALS. ONE BM, LOOSE, DARK BROWN. BLADDER NON DISTENDED. KLINE DRAINING YELLOW URINE, WITH SEDIMENT AND PURULENT. SKIN- SEE ASSESSMENT. CAP REFILL< 3 SEC. NO JVD. PITTING EDEMA BILATERAL HANDS, +2. BILATERAL RADIAL AND PEDAL PULSES WEAK. IV ACCESS RT HAND 20G, PATENT. NO FLUIDS TKO. BILATERAL SOFT WRIST RESTRAINTS NOTED. CIRCULATION CHECK AND ROM PROVIDED. AIRBORNE ISOLATION. BED LOCKED, IN LOW POSITION. CALL LIGHT IN REACH. SIDE RAILS X2. WILL CONTINUE TO MONITOR PT. Addendum: 05/24/20 at 1015 by Georgiana Jeffrey RN PT CLEANED OF STOOL AND REPOSITIONED
--- NOTE | 2020-05-24 08:12 | Surgery Progress Note ---
Surgery Progress Note Subjective Additional Comments no acute events ill appearing in ICU labs noted no n/v/f/c Objective Last 24 Hour Vital Signs Date Time Temp Pulse Resp B/P (MAP) Pulse Ox O2 Delivery O2 Flow Rate FiO2 05/24/20 08:00 30 05/24/20 07:00 109 20 93/67 (76) 100 05/24/20 06:00 102 20 92/59 (70) 100 05/24/20 05:20 113 94/53 05/24/20 05:00 113 18 94/53 (67) 99 05/24/20 04:00 Mechanical Ventilator Mechanical Ventilator 05/24/20 04:00 30 05/24/20 04:00 98.0 112 18 93/54 (67) 100 05/24/20 03:37 116 15 30 05/24/20 03:12 113 05/24/20 03:00 116 16 94/51 (65) 99 05/24/20 02:00 114 18 95/50 (65) 99 05/24/20 01:49 98.1 05/24/20 01:00 113 20 98/61 (73) 100 05/24/20 00:00 Mechanical Ventilator Mechanical Ventilator 05/24/20 00:00 30 05/24/20 00:00 98.1 113 20 95/56 (69) 100 05/23/20 23:47 115 05/23/20 23:10 112 14 30 05/23/20 23:00 116 18 94/59 (71) 100 05/23/20 22:00 121 16 91/54 (66) 100 05/23/20 21:47 118 93/56 05/23/20 21:32 98.4 05/23/20 21:00 119 16 100/56 (71) 99 05/23/20 20:00 30 05/23/20 20:00 Mechanical Ventilator Mechanical Ventilator 05/23/20 20:00 99.9 122 20 99/63 (75) 100 05/23/20 19:35 119 05/23/20 19:00 119 14 30 05/23/20 19:00 117 16 96/55 (69) 99 05/23/20 18:00 115 15 96/58 (71) 100 05/23/20 17:00 113 15 101/54 (70) 99 05/23/20 17:00 99.0 116 16 101/54 (70) 100 05/23/20 16:00 118 15 93/57 (69) 100 05/23/20 16:00 114 05/23/20 16:00 Mechanical Ventilator Mechanical Ventilator 05/23/20 16:00 30 05/23/20 15:21 116 16 30 05/23/20 15:00 118 15 93/54 (67) 100 05/23/20 14:00 120 16 106/66 (79) 100 05/23/20 13:30 119 14 101/62 (75) 99 05/23/20 13:28 119 103/59 05/23/20 13:00 122 15 103/59 (74) 100 05/23/20 12:30 117 14 108/57 (74) 99 05/23/20 12:00 30 05/23/20 12:00 Mechanical Ventilator Mechanical Ventilator 05/23/20 12:00 100.0 118 14 106/57 (73) 100 05/23/20 12:00 117 05/23/20 11:35 30 05/23/20 11:32 30 05/23/20 11:22 119 14 30 05/23/20 11:00 117 14 107/58 (74) 99 05/23/20 10:30 118 16 107/57 (74) 100 05/23/20 10:00 113 14 108/59 (75) 99 05/23/20 09:00 115 15 135/57 (83) 100 I&O Intake and Output 05/23/20 05/24/20 19:00 07:00 Intake Total 1690 ml 1180 ml Output Total 605 ml 545 ml Balance 1085 ml 635 ml Free Water 125 ml 500 ml IV Total 1025 ml 200 ml Tube Feeding 480 ml 480 ml Other 60 ml Output Urine Total 605 ml 545 ml # Bowel Movements 2 4 Dressing: saturated Cardiovascular: RSR Respiratory: decreased breath sounds Abdomen: soft, non-tender, present bowel sounds Extremities: no tenderness, no cyanosis Laboratory Tests Test 05/23/20 13:10 05/23/20 18:04 05/23/20 22:40 05/24/20 05:06 POC Whole Blood Glucose 168 MG/DL (74-106) H 174 MG/DL (74-106) H Pending Pending Plan Problems: (1) Elevated troponin (2) Atrial fibrillation with RVR (3) COVID-19 Assessment & Plan: ++ as per pulm and ID DAILY ESTIMATED NEEDS: Needs based on Critical Care, ARF/ 56kg abw 22-28 kcals/kg 3654-1372 total kcals 0.8-1.5 (increase w/ renal improvement) g protein/kg 45-84 g total protein 25-30 mL/kg 2039-8070 total fluid mLs NUTRITION DIAGNOSIS: * Altered nutrition related lab values r/t clinical status as evidenced by elev BUN(82), creat(3.8) trending up, critical ABG (low pH, elev CO2)-> now improved. * Swallowing difficulty R/T respiratory status as evidenced by s/p oral intubation, on OGT feeds. 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: PARI MUTUEL CLERK eval post extubation ENTERAL NUTRITION RECOMMENDATIONS: Nepro @ 35ml/hr x 24 hrs to provide 840ml, 1512kcal, 68g prot, 610ml free water * W/ worsening renal fxn, rec to continue Nepro * As tolerated, increase goal rate to 35ml/hr x 24 hrs to meet 100% est kcal/prot needs ADDITIONAL RECOMMENDATIONS: 1) Calibrated bedscale wt 2) Monitor renal fxn and lytes, need to continue Nepro Creat trending up 3) Rec niss w/ solumedrol (4) Community acquired pneumonia (5) COPD (chronic obstructive pulmonary disease) (6) Pulmonary fibrosis (7) Asthma (8) History of asthma (9) NSTEMI (non-ST elevated myocardial infarction) (10) Moderate to severe pulmonary hypertension (11) Asthma exacerbation (12) Abnormal LFTs Assessment & Plan: afebrile, HD stable labs noted lft's elevated US reviewed exam benign gb likely reactive from underlying pathology unlikely cholecystitis clinically fluid overload trend labs will monitor exam clinically covid + prognosis guarded cxr reviewed on abx worsening plan repeat US - noted cannot get hida given covid labs noted worsening leukocytosis Gallbladder demonstrates wall thickening and wall edema, gallbladder wall measuring up to 6 mm thick. There are gallstones. Sonographic Escoto's sign is negative. Common bile duct measures 3 mm in diameter. No intrahepatic biliary ductal dilatation. Liver demonstrates normal echogenicity, no focal abnormality. Portal vein and hepatic veins are patent. Pancreas is unremarkable. Spleen is unremarkable. Left kidney measures 9.2 cm in length. Right kidney measures 9.9 cm length. Both kidneys demonstrate normal echogenicity. There is no hydronephrosis. Small cyst is seen in the right kidney. . Abdominal aorta was not imaged . Ther e is trace ascites. There is a small right pleural effusion incidentally noted Impression: Small right pleural effusion. Trace ascites Cholelithiasis. Gallbladder wall thickening may be related to hemodynamic factors causing the pleural fluid and ascites, but could also indicate acute cholecystitis. Consider nuclear medicine hepatobiliary scan if there is high clinical suspicio n. Negative for dilated bile ducts Small right renal cyst incidentally noted (13) Acute respiratory failure with hypoxia Quentin Sanchez May 24, 2020 08:11
--- NOTE | 2020-05-24 08:30 | NUR ---
NURSE NOTES: MD. HUNTER HERE TO SEE PT. HR REMAINS ELEVATED 112-122. BP STABLE. TEMP ELEVATED. NO LABS THIS A.M. NO NEW ORDERS AT THIS TIME.
[2020-05-24] MEDS ORDERED: 1/2 NS 1000ml IV ONE ×3 (08:32→21:18)
[2020-05-24] MEDS ORDERED: NS 275ml ONE ×3 (08:32→21:18)
[2020-05-24] MEDS: Fluconazole 100mg tab ORAL SCH (08:33)
[2020-05-24] MEDS: Aspirin EC 81mg tab ORAL SCH (08:34)
[2020-05-24] MEDS: Eliquis 2.5mg tablet ORAL SCH ×2 (08:34→17:30)
--- NOTE | 2020-05-24 08:57 | NUR ---
RESPIRATORY THERAPIST NOTES: Patient failed weaning on PS +8 PEEP +5 FIO2 30%. VT <50mL, RSBI >200.
--- NOTE | 2020-05-24 09:30 | NUR ---
NURSE NOTES: FAMILY HERE TO SEE PT. ANSWERED ALL QUESTIONS. FAMILY BROUGHT WORDS OF ENCOURAGEMENT FOR WALL. R.T HERE TO SUCTION PT. PT BITING TUBING. RESTRAINTS SECURE.
--- NOTE | 2020-05-24 09:42 | Nephrology Progress Note ---
Assessment/Plan Plan Severe Prerenal Azotemia due to hypoperfusion. MOF due to Covid 19 MOF. Poor Prognosis. Subjective Subjective Confused Objective Objective Last 24 Hour Vital Signs Date Time Temp Pulse Resp B/P (MAP) Pulse Ox O2 Delivery O2 Flow Rate FiO2 05/24/20 08:56 100 05/24/20 08:00 117 18 96/56 (69) 100 05/24/20 08:00 30 05/24/20 08:00 118 05/24/20 07:19 120 16 30 05/24/20 07:00 109 20 93/67 (76) 100 05/24/20 06:00 102 20 92/59 (70) 100 05/24/20 05:20 113 94/53 05/24/20 05:00 113 18 94/53 (67) 99 05/24/20 04:00 Mechanical Ventilator Mechanical Ventilator 05/24/20 04:00 30 05/24/20 04:00 98.0 112 18 93/54 (67) 100 05/24/20 03:37 116 15 30 05/24/20 03:12 113 05/24/20 03:00 116 16 94/51 (65) 99 05/24/20 02:00 114 18 95/50 (65) 99 05/24/20 01:49 98.1 05/24/20 01:00 113 20 98/61 (73) 100 05/24/20 00:00 Mechanical Ventilator Mechanical Ventilator 05/24/20 00:00 30 05/24/20 00:00 98.1 113 20 95/56 (69) 100 05/23/20 23:47 115 05/23/20 23:10 112 14 30 05/23/20 23:00 116 18 94/59 (71) 100 05/23/20 22:00 121 16 91/54 (66) 100 05/23/20 21:47 118 93/56 05/23/20 21:32 98.4 05/23/20 21:00 119 16 100/56 (71) 99 05/23/20 20:00 30 05/23/20 20:00 Mechanical Ventilator Mechanical Ventilator 05/23/20 20:00 99.9 122 20 99/63 (75) 100 05/23/20 19:35 119 05/23/20 19:00 119 14 30 05/23/20 19:00 117 16 96/55 (69) 99 05/23/20 18:00 115 15 96/58 (71) 100 05/23/20 17:00 113 15 101/54 (70) 99 05/23/20 17:00 99.0 116 16 101/54 (70) 100 05/23/20 16:00 118 15 93/57 (69) 100 05/23/20 16:00 114 05/23/20 16:00 Mechanical Ventilator Mechanical Ventilator 05/23/20 16:00 30 05/23/20 15:21 116 16 30 05/23/20 15:00 118 15 93/54 (67) 100 05/23/20 14:00 120 16 106/66 (79) 100 05/23/20 13:30 119 14 101/62 (75) 99 05/23/20 13:28 119 103/59 05/23/20 13:00 122 15 103/59 (74) 100 05/23/20 12:30 117 14 108/57 (74) 99 05/23/20 12:00 30 05/23/20 12:00 Mechanical Ventilator Mechanical Ventilator 05/23/20 12:00 100.0 118 14 106/57 (73) 100 05/23/20 12:00 117 05/23/20 11:35 30 05/23/20 11:32 30 05/23/20 11:22 119 14 30 05/23/20 11:00 117 14 107/58 (74) 99 05/23/20 10:30 118 16 107/57 (74) 100 05/23/20 10:00 113 14 108/59 (75) 99 Intake and Output 05/23/20 05/24/20 19:00 07:00 Intake Total 1690 ml 1180 ml Output Total 605 ml 545 ml Balance 1085 ml 635 ml Free Water 125 ml 500 ml IV Total 1025 ml 200 ml Tube Feeding 480 ml 480 ml Other 60 ml Output Urine Total 605 ml 545 ml # Bowel Movements 2 4 Laboratory Tests 05/23/20 13:10: POC Whole Blood Glucose 168H 05/23/20 18:04: POC Whole Blood Glucose 174H 05/23/20 22:40: POC Whole Blood Glucose [Pending] 05/24/20 05:06: POC Whole Blood Glucose [Pending] Height (Feet): 5 Height (Inches): 3.00 Weight (Pounds): 160 Objective CV Tach +Irr Lungs B Ronchi Abd SNT. BS + E +3 edema Ruth Coyne MD May 24, 2020 09:42
[2020-05-24] MEDS: Wixela 100/50 Inhaler - 60 dose INH SCH ×2 (10:00→22:00)
--- NOTE | 2020-05-24 10:00 | NUR ---
NURSE NOTES: LATE ENTRY: MD. Adela SHRESTHA HERE TO SEE PT. WAS INFORMED ABOUT TEMP 100.4, AX. SEDIMENT IN URINE, PURULENT. A/OX 2. RESTLESS, NO PRESSORS. WILL PLACE ORDERS.
--- NOTE | 2020-05-24 10:28 | Pulmonology Progress Note ---
Subjective ROS Limited/Unobtainable: Yes Constitutional: Denies: fever Gastrointestinal/Abdominal: Denies: nausea, vomiting, diarrhea Musculoskeletal: Denies: pain Allergies: Coded Allergies: CIPROFLOXACIN (Verified Allergy, Unknown, 09/27/17) All Systems: reviewed and negative except above Subjective on vent- still not weaning well hypotensive and tachy persistent comfortable sedated reduced LOC ICU care reviewed Objective Last 24 Hour Vital Signs Date Time Temp Pulse Resp B/P (MAP) Pulse Ox O2 Delivery O2 Flow Rate FiO2 05/24/20 10:00 117 14 95/68 (77) 100 05/24/20 09:30 122 17 101/58 (72) 99 05/24/20 09:00 100.4 116 21 97/54 (68) 99 05/24/20 08:56 100 05/24/20 08:00 117 18 96/56 (69) 100 05/24/20 08:00 30 05/24/20 08:00 Mechanical Ventilator Mechanical Ventilator 05/24/20 08:00 118 05/24/20 07:19 120 16 30 05/24/20 07:00 109 20 93/67 (76) 100 05/24/20 06:00 102 20 92/59 (70) 100 05/24/20 05:20 113 94/53 05/24/20 05:00 113 18 94/53 (67) 99 05/24/20 04:00 Mechanical Ventilator Mechanical Ventilator 05/24/20 04:00 30 05/24/20 04:00 98.0 112 18 93/54 (67) 100 05/24/20 03:37 116 15 30 05/24/20 03:12 113 05/24/20 03:00 116 16 94/51 (65) 99 05/24/20 02:00 114 18 95/50 (65) 99 05/24/20 01:49 98.1 05/24/20 01:00 113 20 98/61 (73) 100 05/24/20 00:00 Mechanical Ventilator Mechanical Ventilator 05/24/20 00:00 30 05/24/20 00:00 98.1 113 20 95/56 (69) 100 05/23/20 23:47 115 05/23/20 23:10 112 14 30 05/23/20 23:00 116 18 94/59 (71) 100 05/23/20 22:00 121 16 91/54 (66) 100 05/23/20 21:47 118 93/56 05/23/20 21:32 98.4 05/23/20 21:00 119 16 100/56 (71) 99 05/23/20 20:00 30 05/23/20 20:00 Mechanical Ventilator Mechanical Ventilator 05/23/20 20:00 99.9 122 20 99/63 (75) 100 05/23/20 19:35 119 05/23/20 19:00 119 14 30 05/23/20 19:00 117 16 96/55 (69) 99 05/23/20 18:00 115 15 96/58 (71) 100 05/23/20 17:00 113 15 101/54 (70) 99 05/23/20 17:00 99.0 116 16 101/54 (70) 100 05/23/20 16:00 118 15 93/57 (69) 100 05/23/20 16:00 114 05/23/20 16:00 Mechanical Ventilator Mechanical Ventilator 05/23/20 16:00 30 05/23/20 15:21 116 16 30 05/23/20 15:00 118 15 93/54 (67) 100 05/23/20 14:00 120 16 106/66 (79) 100 05/23/20 13:30 119 14 101/62 (75) 99 05/23/20 13:28 119 103/59 05/23/20 13:00 122 15 103/59 (74) 100 05/23/20 12:30 117 14 108/57 (74) 99 05/23/20 12:00 30 05/23/20 12:00 Mechanical Ventilator Mechanical Ventilator 05/23/20 12:00 100.0 118 14 106/57 (73) 100 05/23/20 12:00 117 05/23/20 11:35 30 05/23/20 11:32 30 05/23/20 11:22 119 14 30 05/23/20 11:00 117 14 107/58 (74) 99 05/23/20 10:30 118 16 107/57 (74) 100 Intake and Output 05/23/20 05/24/20 19:00 07:00 Intake Total 1690 ml 1180 ml Output Total 605 ml 545 ml Balance 1085 ml 635 ml Free Water 125 ml 500 ml IV Total 1025 ml 200 ml Tube Feeding 480 ml 480 ml Other 60 ml Output Urine Total 605 ml 545 ml # Bowel Movements 2 4 Objective deferred due to COVID Laboratory Tests 05/23/20 13:10: POC Whole Blood Glucose 168H 05/23/20 18:04: POC Whole Blood Glucose 174H 05/23/20 22:40: POC Whole Blood Glucose [Pending] 05/24/20 05:06: POC Whole Blood Glucose [Pending] Current Medications Medications (Trade) Dose Ordered Sig/Ghislaine Route PRN Reason Start Time Stop Time Status Last Admin Dose Admin Acetaminophen (Tylenol) 500 mg Q4H PRN ORAL Mild Pain (Pain Scale 1-3) 05/11/20 20:00 06/02/20 19:59 05/24/20 01:19 Albuterol Sulfate (Proventil MDI) 2 puff Q4H PRN INH Shortness of Breath 05/11/20 20:00 08/01/20 11:59 05/13/20 10:30 Apixaban (Eliquis) 2.5 mg BID ORAL 05/12/20 09:00 08/01/20 17:59 05/23/20 18:16 Aspirin (Ecotrin) 81 mg DAILY ORAL 05/12/20 09:00 06/17/20 15:59 05/23/20 08:33 Dextrose (Dextrose 50%) 25 ml Q30M PRN IV Hypoglycemia 05/22/20 18:30 08/20/20 18:29 Dextrose (Dextrose 50%) 50 ml Q30M PRN IV Hypoglycemia 05/22/20 18:30 08/20/20 18:29 Diltiazem HCl (Cardizem Tab) 60 mg EVERY 8 HOURS ORAL 05/16/20 06:00 06/15/20 05:59 05/23/20 21:47 Fluconazole (Diflucan) 100 mg DAILY ORAL 05/20/20 13:00 05/27/20 12:59 05/24/20 08:33 Insulin Aspart (NovoLOG) Q6HR SUBQ 05/23/20 00:00 08/20/20 20:59 05/24/20 05:13 Pantoprazole (Protonix) 40 mg DAILY ORAL 05/12/20 09:00 06/02/20 15:59 05/24/20 08:33 Salmeterol Xinafoate/ Fluticasone (Advair 100/50 Diskus) 1 puffs BIDRT INH 05/11/20 22:00 08/09/20 21:59 05/16/20 09:02 Assessment/Plan Assessment/Plan Impression: COVID-19 Chronic obstructive pulmonary disease/Asthma Community acquired pneumonia Atrial fibrillation with RVR Elevated troponin Congestive heart Failure sinus tachycardia Hypoxemia transaminitis with gallstones consider cholecystitis acute on chronic renal failure acute respiratory failure hypotension tachycardia transaminitis Plan ID noted gi to see and repeat liver enzymes monitor heart rate on cardizem Vent support/unable to wean wean oxygen - low flow at prsent feeds per dietary and monitor residuals IV therapy noted Bronchodilator therapy Eliquis and monitor HH Monitor labs/ renal follow up - renal function still reduced- renal following Covid 19 Isolation- per ID nutrition and NG feeds reviewed care and optimize position change and monitor skin surgical follow up noted monitor protein levels and adjust will d/w daughter; trach likely needed as unable to wean position change medications/laboratory data/nursing notes/ICU care reviewed in detail note reviewed and edited care discussed with RN and RT ICU time spent >40 minutes Aaron Jefferson MD May 24, 2020 10:28
--- NOTE | 2020-05-24 10:57 | Infectious Diseases Prog Note ---
Assessment/Plan Assessment/Plan A 1. COVID 19 pneumonia Test positive: 05/03 -05/09 2. renal failure 3. increased LFT 4. COPD 5. CHF, Diastolic & systolic 6. asthma 7. Cholelithiasis r/o cholecystitis 8. Hypoxic hypercapnic respiratory failure 9. Pseudomonas pneumonia treated 10. Leukocytosis, improving 11. Funguria P 1. Continue Fluconazole X 2 days 2. Repeat CXR 3. UA, urine culture Subjective ROS Limited/Unobtainable: Yes Constitutional: Reports: fever, other - Ol=436.4 Allergies: Coded Allergies: CIPROFLOXACIN (Verified Allergy, Unknown, 09/27/17) Objective Last 24 Hour Vital Signs Date Time Temp Pulse Resp B/P (MAP) Pulse Ox O2 Delivery O2 Flow Rate FiO2 05/24/20 10:00 117 14 95/68 (77) 100 05/24/20 09:30 122 17 101/58 (72) 99 05/24/20 09:00 100.4 116 21 97/54 (68) 99 05/24/20 08:56 100 05/24/20 08:00 117 18 96/56 (69) 100 05/24/20 08:00 30 05/24/20 08:00 Mechanical Ventilator Mechanical Ventilator 05/24/20 08:00 118 05/24/20 07:19 120 16 30 05/24/20 07:00 109 20 93/67 (76) 100 05/24/20 06:00 102 20 92/59 (70) 100 05/24/20 05:20 113 94/53 05/24/20 05:00 113 18 94/53 (67) 99 05/24/20 04:00 Mechanical Ventilator Mechanical Ventilator 05/24/20 04:00 30 05/24/20 04:00 98.0 112 18 93/54 (67) 100 05/24/20 03:37 116 15 30 05/24/20 03:12 113 05/24/20 03:00 116 16 94/51 (65) 99 05/24/20 02:00 114 18 95/50 (65) 99 05/24/20 01:49 98.1 05/24/20 01:00 113 20 98/61 (73) 100 05/24/20 00:00 Mechanical Ventilator Mechanical Ventilator 05/24/20 00:00 30 05/24/20 00:00 98.1 113 20 95/56 (69) 100 05/23/20 23:47 115 05/23/20 23:10 112 14 30 05/23/20 23:00 116 18 94/59 (71) 100 05/23/20 22:00 121 16 91/54 (66) 100 05/23/20 21:47 118 93/56 05/23/20 21:32 98.4 05/23/20 21:00 119 16 100/56 (71) 99 05/23/20 20:00 30 05/23/20 20:00 Mechanical Ventilator Mechanical Ventilator 05/23/20 20:00 99.9 122 20 99/63 (75) 100 05/23/20 19:35 119 05/23/20 19:00 119 14 30 05/23/20 19:00 117 16 96/55 (69) 99 05/23/20 18:00 115 15 96/58 (71) 100 05/23/20 17:00 113 15 101/54 (70) 99 05/23/20 17:00 99.0 116 16 101/54 (70) 100 05/23/20 16:00 118 15 93/57 (69) 100 05/23/20 16:00 114 05/23/20 16:00 Mechanical Ventilator Mechanical Ventilator 05/23/20 16:00 30 05/23/20 15:21 116 16 30 05/23/20 15:00 118 15 93/54 (67) 100 05/23/20 14:00 120 16 106/66 (79) 100 05/23/20 13:30 119 14 101/62 (75) 99 05/23/20 13:28 119 103/59 05/23/20 13:00 122 15 103/59 (74) 100 05/23/20 12:30 117 14 108/57 (74) 99 05/23/20 12:00 30 05/23/20 12:00 Mechanical Ventilator Mechanical Ventilator 05/23/20 12:00 100.0 118 14 106/57 (73) 100 05/23/20 12:00 117 05/23/20 11:35 30 05/23/20 11:32 30 05/23/20 11:22 119 14 30 05/23/20 11:00 117 14 107/58 (74) 99 Height (Feet): 5 Height (Inches): 3.00 Weight (Pounds): 160 HEENT: other - orally intubated Respiratory/Chest: other - on ventilator Cardiovascular: tachycardia Abdomen: soft, non tender Extremities: other - generalized edema Neurologic/Psychiatric: unresponsiveness Laboratory Tests Test 05/23/20 13:10 05/23/20 18:04 05/23/20 22:40 05/24/20 05:06 POC Whole Blood Glucose 168 MG/DL (74-106) H 174 MG/DL (74-106) H Pending Pending Current Medications Medications (Trade) Dose Ordered Sig/Ghislaine Route PRN Reason Start Time Stop Time Status Last Admin Dose Admin Acetaminophen (Tylenol) 500 mg Q4H PRN ORAL Mild Pain (Pain Scale 1-3) 05/11/20 20:00 06/02/20 19:59 05/24/20 01:19 Albuterol Sulfate (Proventil MDI) 2 puff Q4H PRN INH Shortness of Breath 05/11/20 20:00 08/01/20 11:59 05/13/20 10:30 Apixaban (Eliquis) 2.5 mg BID ORAL 05/12/20 09:00 08/01/20 17:59 05/23/20 18:16 Aspirin (Ecotrin) 81 mg DAILY ORAL 05/12/20 09:00 06/17/20 15:59 05/23/20 08:33 Dextrose (Dextrose 50%) 25 ml Q30M PRN IV Hypoglycemia 05/22/20 18:30 08/20/20 18:29 Dextrose (Dextrose 50%) 50 ml Q30M PRN IV Hypoglycemia 05/22/20 18:30 08/20/20 18:29 Diltiazem HCl (Cardizem Tab) 60 mg EVERY 8 HOURS ORAL 05/16/20 06:00 06/15/20 05:59 05/23/20 21:47 Fluconazole (Diflucan) 100 mg DAILY ORAL 05/20/20 13:00 05/27/20 12:59 05/24/20 08:33 Insulin Aspart (NovoLOG) Q6HR SUBQ 05/23/20 00:00 08/20/20 20:59 05/24/20 05:13 Pantoprazole (Protonix) 40 mg DAILY ORAL 05/12/20 09:00 06/02/20 15:59 05/24/20 08:33 Salmeterol Xinafoate/ Fluticasone (Advair 100/50 Diskus) 1 puffs BIDRT INH 05/11/20 22:00 08/09/20 21:59 05/16/20 09:02 Freddy Woodson MD May 24, 2020 10:57
--- NOTE | 2020-05-24 12:12 | NUR ---
NURSE NOTES: LATE ENTRY: PT A/OX2, OPENS EYES SPONTANEOUS. ON MONITOR ST, BP STABLE. INTUBATED ETT AC 14, VT 500, PEEP 5, FI02 30%. SECRETIONS THIN, RAZA. ABDOMEN ROUND, NON TENDER. OGT. TUBE FEEDING GLUCERNA 1.5 AT 40ML/HR. NO RESIDUALS. ONE BM, LOOSE, BROWN. KLINE DRAINING YELLOW URINE. SEDIMENT NOTED. PITTING EDEMA BILATERAL HANDS, +3. EXTREMITIES ELEVATED ON PILLOWS. BILATERAL RADIAL AND PEDAL PULSES WEAK. IV ACCESS RT HAND 20G, PATENT. TKO. BED IN LOW POSITION. CALL LIGHT IN REACH. SIDE RAILS X2. WILL CONTINUE TO MONITOR PT.
--- NOTE | 2020-05-24 12:25 | Diagnostic Imaging Report ---
EXAM: XR Chest, 1 View CLINICAL HISTORY: INFECT TECHNIQUE: Frontal view of the chest. COMPARISON: Chest x-rays dated 05/19/20 FINDINGS: Lungs: Persistent patchy opacities and interstitial markings, most prominent in the left mid and lower lung. Pleural space: Possible small left pleural effusion. Heart: Unremarkable. No cardiomegaly. Mediastinum: Unremarkable. Bones/joints: Unremarkable. Vasculature: Atherosclerotic calcifications are noted within the aortic arch. Tubes, lines and devices: Endotracheal tube tip 2.9 cm above the lico. Telemetry leads overlie the thorax. IMPRESSION: 1. No significant interval change compared to the prior exam. 2. Persistent patchy opacities and interstitial markings, most prominent in the left mid and lower lung. 3. Possible small left pleural effusion.
--- NOTE | 2020-05-24 15:21 | NUR ---
NURSE NOTES: jack Addendum: 05/24/20 at 1928 by Georgiana Jeffrey RN md lomax here to see pt. was informed g tube clogged. will continue to unclogged. order to replace ngt. ua to be collected. pt urine sediment.
--- NOTE | 2020-05-24 16:25 | Cardiology Progress Note ---
Subjective DATE OF SERVICE: May 24, 2020 Condition remains critical; patient remains on [facility] ventilation - failed wean. Monitor: AFib with episodes of RVR and nonsustained VTach. Lactic acidosis resolved BP remains tenuous, as well as acid-base status. Sodium levels have normalized Episodes of tachyarrhythmias persist, and BP is increasingly tenuous and low. CXR (05/19) reviewed: bilateral patchy infiltrates, left appears chronic, but right acute and worse. ICU logs and cardiology care plan reviewed and updated Objective Last 24 Hour Vital Signs Date Time Temp Pulse Resp B/P (MAP) Pulse Ox O2 Delivery O2 Flow Rate FiO2 05/24/20 15:24 125 14 30 05/24/20 15:00 127 15 95/57 (70) 98 05/24/20 14:30 124 14 87/51 (63) 98 05/24/20 14:00 123 14 91/55 (67) 97 05/24/20 13:42 124 92/53 05/24/20 13:00 120 14 92/45 (61) 97 05/24/20 12:00 122 05/24/20 12:00 Mechanical Ventilator Mechanical Ventilator 05/24/20 12:00 121 14 92/52 (65) 99 05/24/20 12:00 30 05/24/20 11:30 98.6 117 14 95/59 (71) 100 05/24/20 11:15 126 18 30 05/24/20 11:00 120 20 97/69 (78) 100 05/24/20 10:00 117 14 95/68 (77) 100 05/24/20 09:30 122 17 101/58 (72) 99 05/24/20 09:00 100.4 116 21 97/54 (68) 99 05/24/20 08:56 100 05/24/20 08:00 117 18 96/56 (69) 100 05/24/20 08:00 30 05/24/20 08:00 Mechanical Ventilator Mechanical Ventilator 05/24/20 08:00 118 05/24/20 07:19 120 16 30 05/24/20 07:00 109 20 93/67 (76) 100 05/24/20 06:00 102 20 92/59 (70) 100 05/24/20 05:20 113 94/53 05/24/20 05:00 113 18 94/53 (67) 99 05/24/20 04:00 Mechanical Ventilator Mechanical Ventilator 05/24/20 04:00 30 05/24/20 04:00 98.0 112 18 93/54 (67) 100 05/24/20 03:37 116 15 30 05/24/20 03:12 113 05/24/20 03:00 116 16 94/51 (65) 99 05/24/20 02:00 114 18 95/50 (65) 99 05/24/20 01:49 98.1 05/24/20 01:00 113 20 98/61 (73) 100 05/24/20 00:00 Mechanical Ventilator Mechanical Ventilator 05/24/20 00:00 30 05/24/20 00:00 98.1 113 20 95/56 (69) 100 05/23/20 23:47 115 05/23/20 23:10 112 14 30 05/23/20 23:00 116 18 94/59 (71) 100 05/23/20 22:00 121 16 91/54 (66) 100 05/23/20 21:47 118 93/56 05/23/20 21:32 98.4 05/23/20 21:00 119 16 100/56 (71) 99 05/23/20 20:00 30 05/23/20 20:00 Mechanical Ventilator Mechanical Ventilator 05/23/20 20:00 99.9 122 20 99/63 (75) 100 05/23/20 19:35 119 05/23/20 19:00 119 14 30 05/23/20 19:00 117 16 96/55 (69) 99 05/23/20 18:00 115 15 96/58 (71) 100 05/23/20 17:00 113 15 101/54 (70) 99 05/23/20 17:00 99.0 116 16 101/54 (70) 100 ROS: unchanged from my eval of 05/03/20 HEENT: Orally intubated, Mechanically Ventilated, Thin secretions ET Tube RHYTHM: Afib LUNGS: no accessory muscle use, expiratory wheezing, diminished breath sounds CARDIAC: normal S1 and S2, no murmur, irregularly irregular ABDOMEN: normal bowel sounds, non tender, soft, no organomegaly EXTREMITIES: no calf tenderness, +1 edema Laboratory Tests Test 05/23/20 18:04 05/23/20 22:40 05/24/20 05:06 POC Whole Blood Glucose 174 MG/DL (74-106) H Pending Pending Assessment/Plan Assessment/Plan Acute on chronic respiratory acidosis Acute respiratory failure Shock LE edema due to severe pulmonary hypertension and right heart strain COPD exacerb with active bronchospasm Lactic acidosis COVID 19 PNA Acute on chr renal failure - now with hyperkalemia Chronic systolic/diastolic CHF Pulmonary fibrosis with chronic hypoxia Paroxysmal AFib with RVR Hx Multifocal atrial arrhythmias Pulmonary HTN - severe Hx NSVTach Acute myocardial ischemia Worsening transaminitis CRITICAL & GUARDED Vent support with on-going weaning efforts Hold diltiazem for low BP, but titrate for optimal rate control Steroids per pulmonary Inhaled bronchodilators IVF discontinued; reassess for diuresis. Full anticoagulation for cardioembolic prophyl Isolation Anti-viral rx per ID Monitor liver fxn Simone Perez MD May 24, 2020 16:25
--- NOTE | 2020-05-24 17:00 | NUR ---
NURSE NOTES: late entry: unable to unclog ogt. ngt placed. order for stat kub. awaiting test.
--- NOTE | 2020-05-24 17:49 | General Progress Note ---
Subjective Allergies: Coded Allergies: CIPROFLOXACIN (Verified Allergy, Unknown, 09/27/17) Objective Last 24 Hour Vital Signs Date Time Temp Pulse Resp B/P (MAP) Pulse Ox O2 Delivery O2 Flow Rate FiO2 05/24/20 17:00 127 14 94/53 (67) 95 05/24/20 16:00 129 05/24/20 16:00 30 05/24/20 16:00 Mechanical Ventilator Mechanical Ventilator 05/24/20 16:00 120 16 113/59 (77) 97 05/24/20 15:24 125 14 30 05/24/20 15:00 127 15 95/57 (70) 98 05/24/20 14:30 124 14 87/51 (63) 98 05/24/20 14:00 123 14 91/55 (67) 97 05/24/20 13:42 124 92/53 05/24/20 13:00 120 14 92/45 (61) 97 05/24/20 12:00 122 05/24/20 12:00 Mechanical Ventilator Mechanical Ventilator 05/24/20 12:00 121 14 92/52 (65) 99 05/24/20 12:00 30 05/24/20 11:30 98.6 117 14 95/59 (71) 100 05/24/20 11:15 126 18 30 05/24/20 11:00 120 20 97/69 (78) 100 05/24/20 10:00 117 14 95/68 (77) 100 05/24/20 09:30 122 17 101/58 (72) 99 05/24/20 09:00 100.4 116 21 97/54 (68) 99 05/24/20 08:56 100 05/24/20 08:00 117 18 96/56 (69) 100 05/24/20 08:00 30 05/24/20 08:00 Mechanical Ventilator Mechanical Ventilator 05/24/20 08:00 118 05/24/20 07:19 120 16 30 05/24/20 07:00 109 20 93/67 (76) 100 05/24/20 06:00 102 20 92/59 (70) 100 05/24/20 05:20 113 94/53 05/24/20 05:00 113 18 94/53 (67) 99 05/24/20 04:00 Mechanical Ventilator Mechanical Ventilator 05/24/20 04:00 30 05/24/20 04:00 98.0 112 18 93/54 (67) 100 05/24/20 03:37 116 15 30 05/24/20 03:12 113 05/24/20 03:00 116 16 94/51 (65) 99 05/24/20 02:00 114 18 95/50 (65) 99 05/24/20 01:49 98.1 05/24/20 01:00 113 20 98/61 (73) 100 05/24/20 00:00 Mechanical Ventilator Mechanical Ventilator 05/24/20 00:00 30 05/24/20 00:00 98.1 113 20 95/56 (69) 100 05/23/20 23:47 115 05/23/20 23:10 112 14 30 05/23/20 23:00 116 18 94/59 (71) 100 05/23/20 22:00 121 16 91/54 (66) 100 05/23/20 21:47 118 93/56 05/23/20 21:32 98.4 05/23/20 21:00 119 16 100/56 (71) 99 05/23/20 20:00 30 05/23/20 20:00 Mechanical Ventilator Mechanical Ventilator 05/23/20 20:00 99.9 122 20 99/63 (75) 100 05/23/20 19:35 119 05/23/20 19:00 119 14 30 05/23/20 19:00 117 16 96/55 (69) 99 05/23/20 18:00 115 15 96/58 (71) 100 Intake and Output 05/23/20 05/24/20 19:00 07:00 Intake Total 1690 ml 1180 ml Output Total 605 ml 545 ml Balance 1085 ml 635 ml Free Water 125 ml 500 ml IV Total 1025 ml 200 ml Tube Feeding 480 ml 480 ml Other 60 ml Output Urine Total 605 ml 545 ml # Bowel Movements 2 4 Laboratory Tests 05/23/20 18:04: POC Whole Blood Glucose 174H 05/23/20 22:40: POC Whole Blood Glucose [Pending] 05/24/20 05:06: POC Whole Blood Glucose [Pending] 05/24/20 13:34: POC Whole Blood Glucose [Pending] 05/24/20 16:17: Urine Color [Pending], Urine Appearance [Pending], Urine pH [Pending], Urine Specific [place] [Pending], Urine Protein [Pending], Urine Glucose (UA) [Pending], Urine Ketones [Pending], Urine Blood [Pending], Urine Nitrite [Pending], Urine Bilirubin [Pending], Urine Urobilinogen [Pending], Urine Leukocyte Esterase [Pending] 05/24/20 16:38: POC Whole Blood Glucose 111H Height (Feet): 5 Height (Inches): 3.00 Weight (Pounds): 160 Assessment/Plan Status: stable Assessment/Plan: Assessment - Transaminitis, likely due to COVID-19 - Gallstones - Resp failure - Dysphagia - OGT - CHF - Pulm HTN - Arrhythmia - Leukocytosis - Renal failure Recommendations - monitor LFT - Continue TF - Abx - ICU care - PEG at later date once stabilized - will consider repeat abd ultrasound Pulmonary fibrosis with chronic hypoxia Paroxysmal AFib with RVR Hx Multifocal atrial arrhythmias Pulmonary HTN - severe Hx NSVTach Acute myocardial ischemia Worsening transaminitis Thank you Justine De Oliveira MD May 24, 2020 17:49
[2020-05-24 17:53] LABS: APPEARANCE,URINE CLOUDY; BILIRUBIN, URINE NEGATIVE (NEGATIVE); COLOR,URINE PALE YELLOW; GLUCOSE, URINE (UA) NEGATIVE (NEGATIVE); KETONES,URINE NEGATIVE (NEGATIVE); LEUKOCYTE ESTERASE ,URINE 2+ (NEGATIVE); NITRITE,URINE NEGATIVE (NEGATIVE); PH,URINE 5 (4.5-8.0); PROTEIN,URINE 2+ (NEGATIVE); UROBILINOGEN,URINE NORMAL MG/DL (0.0-1.0)
--- NOTE | 2020-05-24 18:30 | NUR ---
NURSE NOTES: tech here to do kub, first placement location needed changing. ngt retracted 15cm, repositioned. awaiting results. pt npo.
--- NOTE | 2020-05-24 18:31 | Diagnostic Imaging Report ---
EXAM: XR Abdomen, 2 Views CLINICAL HISTORY: NGT TECHNIQUE: Frontal view of the abdomen/pelvis with upright view of the abdomen. COMPARISON: Previous study of 05/17/2020. FINDINGS: Lower thorax: Interstitial lung disease and patchy airspace disease at the left lung base. Intraperitoneal space: No free air. Gastrointestinal tract: Nonspecific bowel gas pattern. No dilation. Bones/joints: Osteopenia. Tubes, lines and devices: NG tube is noted in place with its tip and side-port below the diaphragm. IMPRESSION: NG tube is noted in place with its tip and side-port both bladder diaphragm.
--- NOTE | 2020-05-24 19:31 | NUR ---
HAND-OFF: Report given to Lennox Frias R.N. endorsed f/u with kub results before ngt use.
--- NOTE | 2020-05-24 19:50 | NUR ---
NURSE NOTES: Received report from DAMIAN Jeffrey. Pt is resting on the bed and awake and able to open the eye spontaneously. pt has ETT and orally intubated and Vet setting with AC: 14, T:500, P:5, FiO2 30% and SaO2 100% noted. Pt has NGT on Rt. nares and fixed at 55cm and advanced NGT on 68cm and checked placement. Will take a KUB for NGT placement. Denied pain at this time. N fever. On head kiln operator with ST 120's and BP is stable. IV site intact and no sign of infiltration noted. Pt has bilateral soft restraint. checked circulation and comfort. Pt has Riojas cath and patent and still noted sedimentation. On proper isolation for COVID 19. Placed fall precaution. Will continue to monitor any change of condition.
--- NOTE | 2020-05-24 21:03 | Diagnostic Imaging Report ---
EXAM: XR Abdomen, 1 View CLINICAL HISTORY: NGT TECHNIQUE: Frontal supine view of the abdomen/pelvis. COMPARISON: No relevant prior studies available. FINDINGS: NGT terminates in the stomach.
--- NOTE | 2020-05-24 21:30 | NUR ---
NURSE NOTES: Get result of KUB and in placed NGT in stomach. Resumed NGT feeding. No residual noted. Will continue to monitor any change of condition.
--- NOTE | 2020-05-24 22:00 | General Progress Note ---
Subjective ROS Limited/Unobtainable: No Constitutional: Reports: malaise, weakness HEENT: Reports: no symptoms Cardiovascular: Reports: no symptoms Respiratory: Reports: shortness of breath, sputum Gastrointestinal/Abdominal: Reports: difficulty swallowing Genitourinary: Reports: no symptoms Neurologic/Psychiatric: Reports: anxiety Endocrine: Reports: no symptoms Hematologic/Lymphatic: Reports: anemia Allergies: Coded Allergies: CIPROFLOXACIN (Verified Allergy, Unknown, 09/27/17) All Systems: reviewed and negative except above Subjective no events. not tolerating weaning. becomes tachycardic and tachypneic. no fever or chills. no sob. tolerating feeds. wbc remains elevated. Objective Last 24 Hour Vital Signs Date Time Temp Pulse Resp B/P (MAP) Pulse Ox O2 Delivery O2 Flow Rate FiO2 05/24/20 21:00 120 15 92/47 (62) 100 05/24/20 20:00 Mechanical Ventilator Mechanical Ventilator 05/24/20 20:00 98.7 122 15 96/50 (65) 100 05/24/20 20:00 123 05/24/20 20:00 30 05/24/20 19:00 118 14 89/58 (68) 100 05/24/20 19:00 126 14 30 05/24/20 18:00 124 17 93/52 (66) 100 05/24/20 17:00 127 14 94/53 (67) 95 05/24/20 16:00 129 05/24/20 16:00 30 05/24/20 16:00 Mechanical Ventilator Mechanical Ventilator 05/24/20 16:00 120 16 113/59 (77) 97 05/24/20 15:24 125 14 30 05/24/20 15:00 99.0 127 15 95/57 (70) 98 05/24/20 14:30 124 14 87/51 (63) 98 05/24/20 14:00 123 14 91/55 (67) 97 05/24/20 13:42 124 92/53 05/24/20 13:00 120 14 92/45 (61) 97 05/24/20 12:00 122 05/24/20 12:00 Mechanical Ventilator Mechanical Ventilator 05/24/20 12:00 121 14 92/52 (65) 99 05/24/20 12:00 30 05/24/20 11:30 98.6 117 14 95/59 (71) 100 05/24/20 11:15 126 18 30 05/24/20 11:00 120 20 97/69 (78) 100 05/24/20 10:00 117 14 95/68 (77) 100 05/24/20 09:30 122 17 101/58 (72) 99 05/24/20 09:00 100.4 116 21 97/54 (68) 99 05/24/20 08:56 100 05/24/20 08:00 117 18 96/56 (69) 100 05/24/20 08:00 30 05/24/20 08:00 Mechanical Ventilator Mechanical Ventilator 05/24/20 08:00 118 05/24/20 07:19 120 16 30 05/24/20 07:00 109 20 93/67 (76) 100 05/24/20 06:00 102 20 92/59 (70) 100 05/24/20 05:20 113 94/53 05/24/20 05:00 113 18 94/53 (67) 99 05/24/20 04:00 Mechanical Ventilator Mechanical Ventilator 05/24/20 04:00 30 05/24/20 04:00 98.0 112 18 93/54 (67) 100 05/24/20 03:37 116 15 30 05/24/20 03:12 113 05/24/20 03:00 116 16 94/51 (65) 99 05/24/20 02:00 114 18 95/50 (65) 99 05/24/20 01:49 98.1 05/24/20 01:00 113 20 98/61 (73) 100 05/24/20 00:00 Mechanical Ventilator Mechanical Ventilator 05/24/20 00:00 30 05/24/20 00:00 98.1 113 20 95/56 (69) 100 05/23/20 23:47 115 05/23/20 23:10 112 14 30 05/23/20 23:00 116 18 94/59 (71) 100 05/23/20 22:00 121 16 91/54 (66) 100 Intake and Output 05/23/20 05/24/20 19:00 07:00 Intake Total 1690 ml 1180 ml Output Total 605 ml 545 ml Balance 1085 ml 635 ml Free Water 125 ml 500 ml IV Total 1025 ml 200 ml Tube Feeding 480 ml 480 ml Other 60 ml Output Urine Total 605 ml 545 ml # Bowel Movements 2 4 Laboratory Tests 05/23/20 22:40: POC Whole Blood Glucose [Pending] 05/24/20 05:06: POC Whole Blood Glucose [Pending] 05/24/20 13:34: POC Whole Blood Glucose [Pending] 05/24/20 16:17: Urine Color Pale yellow, Urine Appearance Cloudy, Urine pH 5, Urine Specific [place] 1.010, Urine Protein 2+H, Urine Glucose (UA) Negative, Urine Ketones Negative, Urine Blood 2+H, Urine Nitrite Negative, Urine Bilirubin Negative, Urine Urobilinogen Normal, Urine Leukocyte Esterase 2+H, Urine RBC 5-10H, Urine WBC 5-10H, Urine Squamous Epithelial Cells Few, Urine Amorphous Sediment ModerateH, Urine Bacteria Few, Urine Yeast ManyH 05/24/20 16:38: POC Whole Blood Glucose 111H Height (Feet): 5 Height (Inches): 3.00 Weight (Pounds): 160 Objective General Appearance: WD/WN, no apparent distress, alert. orally intubated EENT: PERRL/EOMI Neck: non-tender, normal alignment, supple Cardiovascular: normal rate, regular rhythm Respiratory/Chest: chest wall non-tender, lungs clear, normal breath sounds, no respiratory distress, no accessory muscle use Abdomen: normal bowel sounds, non tender, soft, no organomegaly Edema: no edema noted Arm (L), no edema noted Arm (R) Neurologic: reference services head II-XII grossly normal, alert, oriented x 3, responsive Skin: normal pigmentation Lymphatic: normal anterior cervical (L), normal anterior cervical (R) Assessment/Plan Problem List: (1) Pulmonary fibrosis ICD Codes: J84.10 - Pulmonary fibrosis, unspecified SNOMED: 09839723 (2) History of asthma ICD Codes: Z87.09 - Personal history of other diseases of the respiratory system SNOMED: 043252821 (3) Asthma ICD Codes: J45.909 - Unspecified asthma, uncomplicated SNOMED: 618072291 (4) NSTEMI (non-ST elevated myocardial infarction) ICD Codes: I21.4 - Non-ST elevation (NSTEMI) myocardial infarction SNOMED: 754886070 (5) Elevated troponin ICD Codes: R79.89 - Other specified abnormal findings of blood chemistry SNOMED: 372559814, 991775190, 665843478 (6) COPD (chronic obstructive pulmonary disease) ICD Codes: J44.9 - Chronic obstructive pulmonary disease, unspecified SNOMED: 65044476 (7) Atrial fibrillation with RVR ICD Codes: I48.91 - Unspecified atrial fibrillation SNOMED: 100367597804273 (8) Community acquired pneumonia ICD Codes: J18.9 - Pneumonia, unspecified organism SNOMED: 133968414 Status: stable Assessment/Plan: cont iv abx water flushes via ngt monitor renal fxn/lytes ngt feeds wean vent as able BP rx may need trach pt refusing keep dry dvt/stress ulcer prophylaxis skin care turn q2 critical and guarded Bradford Linn MD May 24, 2020 22:00
--- NOTE | 2020-05-24 22:00 | NUR ---
NURSE NOTES: Pt is sleeping on the bed and calm. Trying to release bilateral restraint and successful. D/c'd restraint. Suction and oral care was done. changed position. Provided calm environment. Placed fall precaution. Will continue to monitor any change of condition.
--- NOTE | 2020-05-24 23:42 | NUR ---
NURSE NOTES: Pt is resting on the bed and noted pain by FLACC scale 2. checked BT: 100.3F. Keep cooling measure. Given tylenol prn medication as ordered. Changed position. Suction and oral care was done. Tolerated well with current NGT feeding. Flushed water. Placed fall precaution. Will continue to monitor any change of condition.
[2020-05-25] VITALS (24 sets, daily range): BP systolic 88–106; BP diastolic 46–58
--- NOTE | 2020-05-25 00:15 | Consultation ---
DATE OF CONSULTATION: 05/24/2020 GASTROENTEROLOGY CONSULTATION CONSULTING PHYSICIAN: Justine Torres M.D. CHIEF COMPLAINT: I was asked to see this patient by Dr. Aaron Jefferson for evaluation of abnormal liver tests and feeding arrangements. HISTORY OF PRESENT ILLNESS: The patient is an 80-year-old woman with multiple medical problems including COPD and pulmonary fibrosis, who was admitted to the hospital on May 03 with complaints of worsening chest tightness and shortness of breath. She was subsequently diagnosed with COVID-19 infection, and as her respiratory status worsened she was admitted to the ICU and has been intubated since. Her liver tests have been noted to be waxing and waning throughout her hospital ICU stay. She did have an abdominal ultrasound showing gallstones and a thickened gallbladder wall. Escoto sign is negative. She has been tolerating her tube feedings well. She is arousable on examination and is able to nod yes and no. During my examination of her abdomen, she also denied any abdominal tenderness and sonographic Escoto's sign is also negative at the time of the ultrasound. PAST MEDICAL HISTORY: History of congestive heart failure, COPD, asthma, pulmonary fibrosis, gallstones, recurrent respiratory failure. FAMILY HISTORY: Unavailable and unobtainable. SOCIAL HISTORY: The patient has had no known history of smoking or drinking. REVIEW OF SYSTEMS: Otherwise negative. PHYSICAL EXAMINATION: GENERAL: Elderly woman, seen in the ICU on the ventilator. HEENT: Normocephalic and atraumatic. The patient was intubated. NECK: Supple. CHEST: Revealed coarse breath sounds. CARDIAC: Revealed a regular rate. ABDOMEN: Soft and nontender. EXTREMITIES: Revealed no edema. LABORATORY DATA: Laboratory exam was noted. ASSESSMENT: This patient presents with waxing and waning liver tests, which has occurred in the hospital. The liver test abnormalities peaked up as she was hospitalized and had been going up and down since. This is likely from a COVID-19 infection as it can affect the liver. She does have gallstones, but she is nontender and the liver test abnormalities are nonprogressive. An ultrasound to be done at a later date to re-evaluate the common bile duct, but it did not appear to be dilated on the previous examination. I would therefore follow liver tests conservatively. The orogastric tube feeding can be continued for now and at a later date once she is stabilized, it can be converted to a gastrostomy catheter if necessary. RECOMMENDATIONS: Per above discussion and per orders written in the chart. Thank you for asking me to participate in the care of this patient. Justine Torres M.D. DR: JOHN JOB#: [id number] CC: [email or web address]
--- NOTE | 2020-05-25 02:00 | NUR ---
NURSE NOTES: Pt is resting on the bed and awake and confused and agitated. Trying to touch ETT and NGT. given realty orientation and verbal cueing but she didn't understand. Get order and applied bilateral soft restraint. Checked comfort and circulation. Suction and oral care was done. Changed position. SaO2 99-100% with current Vent setting. Will continue to monitor any change of condition.
--- NOTE | 2020-05-25 04:00 | NUR ---
NURSE NOTES: Morning care was done. Cleaned Pt and applied lotion and cream. Noted moderate amount loose BM x2. Applied skin barrier cream. Provided suction and oral care. No fever noted. On cardiac sonographer with ST. On running with Glucerna 1.5 @ 40cc/hr and no residual noted. changed position. On Proper isolation for COVID 19. Will continue to monitor any change of condition.
[2020-05-25] MEDS: dilTIAZem HCl 60mg tab ORAL SCH ×3 (06:00→22:00)
[2020-05-25] MEDS: NovoLOG Insulin Flexpen SUBQ SCH ×4 (06:00→17:18)
--- NOTE | 2020-05-25 06:00 | NUR ---
NURSE NOTES: Suction and oral care was done. on radiation monitor with ST. BP is stable. No fever. Turn and reposition. Will continue to monitor any change of condition.
[2020-05-25 06:05] LABS: BASOPHILS % (AUTO) 1.1 % (0.0-2.0); EOSINOPHILS % (AUTO) 5.7 % (0.0-3.0); HEMATOCRIT 24.4 % (37.0-47.0); HEMOGLOBIN 8.3 G/DL (12.0-16.0); LYMPHOCYTES % (AUTO) 13.3 % (20.0-45.0); MEAN CORPUSCULAR VOLUME 83 FL (80-99); MONOCYTES % (AUTO) 5.6 % (1.0-10.0); NEUTROPHILS % (AUTO) 74.2 % (45.0-75.0); PLATELET COUNT 111 K/UL (150-450); RED BLOOD COUNT 2.94 M/UL (4.20-5.40); RED CELL DISTRIBUTION WIDTH 17.2 % (11.6-14.8); WHITE BLOOD COUNT 3.8 K/UL (4.8-10.8)
[2020-05-25 06:14] LABS: ALBUMIN/GLOBULIN RATIO 0.3 (1.0-2.7); BILIRUBIN,TOTAL 0.8 MG/DL (0.2-1.0); CREATININE 2.1 MG/DL (0.55-1.30); POTASSIUM 4.2 MMOL/L (3.5-5.1)
--- NOTE | 2020-05-25 07:05 | NUR ---
NURSE HAND-OFF REPORT: Latest Vital Signs: Temperature 98.8 , Pulse 109 , B/P 99 /48 , Respiratory Rate 14 , O2 SAT 100 , Mechanical Ventilator, O2 Flow Rate 4.0 . Vital Sign Comment: EKG Rhythm: Sinus Tachycardia Rhythm change?: N Latest Lechuga Fall Score: 50 Fall Risk: High Risk Safety Measures: Call light Within Reach, Bed Alarm Zone 1, Side Rails Side Rails x3, Bed position Low and Locked. Fall Precautions: Door Sign Report given to DAMIAN Bryant. Pt is resting on the bed and no sing of acute distress noted. SaO2 99-100% with current Vent setting. Tolerated well NGT feeding.
--- NOTE | 2020-05-25 07:06 | NUR ---
NURSE NOTES: Received patient from Anna SALGADO. Patient is awake, alert and oriented x2. Sinus Tachycardia on the heart monitor, HR 105. Receiving oxygen via ET Tube 7.5 20cm at the lip line, vent settings AC 14, TV 500, FiO2 30%, PEEP 5. Left Nares NGT is intact and receiving Glucerna 1.5 at 40cc/hr. Riojas catheter is intact and draining. IV site is right hand 20g patent and intact. Bed is locked, placed in lowest position, side rails up x3, bed alarm on, head of bed elevated, call light within reach. Will continue to monitor.
--- NOTE | 2020-05-25 07:20 | General Progress Note ---
Subjective ROS Limited/Unobtainable: No Constitutional: Reports: malaise, weakness HEENT: Reports: no symptoms Cardiovascular: Reports: no symptoms Respiratory: Reports: shortness of breath, sputum Gastrointestinal/Abdominal: Reports: difficulty swallowing Genitourinary: Reports: no symptoms Neurologic/Psychiatric: Reports: no symptoms Endocrine: Reports: no symptoms Hematologic/Lymphatic: Reports: anemia Allergies: Coded Allergies: CIPROFLOXACIN (Verified Allergy, Unknown, 09/27/17) All Systems: reviewed and negative except above Subjective no events, stable on the vent. not tolerating weaning. Wbc and h/h much lower today- ?lab error. no distress appears comfortable. Objective Last 24 Hour Vital Signs Date Time Temp Pulse Resp B/P (MAP) Pulse Ox O2 Delivery O2 Flow Rate FiO2 05/25/20 07:00 109 14 99/48 (65) 100 05/25/20 06:00 106 14 99/46 (63) 100 05/25/20 06:00 106 99/46 05/25/20 05:00 103 14 96/49 (65) 100 05/25/20 04:00 Mechanical Ventilator Mechanical Ventilator 05/25/20 04:00 103 05/25/20 04:00 98.8 102 14 93/46 (62) 99 05/25/20 04:00 30 05/25/20 03:30 103 14 30 05/25/20 03:00 106 18 98/51 (67) 100 05/25/20 02:00 101 14 88/46 (60) 99 05/25/20 01:00 105 14 94/47 (63) 99 05/25/20 00:12 99.9 05/25/20 00:00 100.3 114 14 98/50 (66) 99 05/25/20 00:00 117 05/25/20 00:00 Mechanical Ventilator Mechanical Ventilator 05/25/20 00:00 30 05/24/20 23:15 120 14 30 05/24/20 23:00 118 15 89/46 (60) 99 05/24/20 22:00 115 15 91/48 (62) 99 05/24/20 22:00 120 92/47 05/24/20 21:00 120 15 92/47 (62) 100 05/24/20 20:00 Mechanical Ventilator Mechanical Ventilator 05/24/20 20:00 98.7 122 15 96/50 (65) 100 05/24/20 20:00 123 05/24/20 20:00 30 05/24/20 19:00 118 14 89/58 (68) 100 05/24/20 19:00 126 14 30 05/24/20 18:00 124 17 93/52 (66) 100 05/24/20 17:00 127 14 94/53 (67) 95 05/24/20 16:00 129 05/24/20 16:00 30 05/24/20 16:00 Mechanical Ventilator Mechanical Ventilator 05/24/20 16:00 120 16 113/59 (77) 97 05/24/20 15:24 125 14 30 05/24/20 15:00 99.0 127 15 95/57 (70) 98 05/24/20 14:30 124 14 87/51 (63) 98 05/24/20 14:00 123 14 91/55 (67) 97 05/24/20 13:42 124 92/53 05/24/20 13:00 120 14 92/45 (61) 97 05/24/20 12:00 122 05/24/20 12:00 Mechanical Ventilator Mechanical Ventilator 05/24/20 12:00 121 14 92/52 (65) 99 05/24/20 12:00 30 05/24/20 11:30 98.6 117 14 95/59 (71) 100 05/24/20 11:15 126 18 30 05/24/20 11:00 120 20 97/69 (78) 100 05/24/20 10:00 117 14 95/68 (77) 100 05/24/20 09:30 122 17 101/58 (72) 99 05/24/20 09:00 100.4 116 21 97/54 (68) 99 05/24/20 08:56 100 05/24/20 08:00 117 18 96/56 (69) 100 05/24/20 08:00 30 05/24/20 08:00 Mechanical Ventilator Mechanical Ventilator 05/24/20 08:00 118 05/24/20 07:19 120 16 30 Intake and Output 05/24/20 05/25/20 19:00 07:00 Intake Total 610 ml 400 ml Output Total 420 ml 510 ml Balance 190 ml -110 ml Free Water 250 ml Tube Feeding 360 ml 400 ml Output Urine Total 420 ml 510 ml # Bowel Movements 3 5 Laboratory Tests 05/24/20 13:34: POC Whole Blood Glucose [Pending] 05/24/20 16:17: Urine Color Pale yellow, Urine Appearance Cloudy, Urine pH 5, Urine Specific [place] 1.010, Urine Protein 2+H, Urine Glucose (UA) Negative, Urine Ketones Negative, Urine Blood 2+H, Urine Nitrite Negative, Urine Bilirubin Negative, Urine Urobilinogen Normal, Urine Leukocyte Esterase 2+H, Urine RBC 5-10H, Urine WBC 5-10H, Urine Squamous Epithelial Cells Few, Urine Amorphous Sediment M oderateH, Urine Bacteria Few, Urine Yeast ManyH 05/24/20 16:38: POC Whole Blood Glucose 111H 05/24/20 23:30: POC Whole Blood Glucose 115H 05/25/20 04:42: White Blood Count 3.8L, Red Blood Count 2.94L, Hemoglobin 8.3L, Hematocrit 24.4L , Mean Corpuscular Volume 83, Mean Corpuscular Hemoglobin 28.1, Mean Corpuscular Hemoglobin Concent 33.9, Red Cell Distribution Width 17.2H, Platelet Count 111L , Mean Platelet Volume 7.0, Neutrophils (%) (Auto) 74.2, Lymphocytes (%) (Auto) 13.3L, Monocytes (%) (Auto) 5.6, Eosinophils (%) (Auto) 5.7H, Basophils (%) (Auto) 1.1, Sodium Level 147H, Potassium Level 4.2, Chloride Level 113H, Carbon Dioxide Level 24, Anion Gap 10, Blood Urea Nitrogen 90H, Creatinine 2.1H, Estimat Glomerular Filtration Rate 27.4, Glucose Level 121H, Calcium Level 8.0L, Total Bilirubin 0.8, Aspartate Amino Transf (AST/SGOT) 148H, Alanine Aminotransferase (ALT/SGPT) 217H, Alkaline Phosphatase 232H, Total Protein 4.8L, Albumin 1.0L, Globulin 3.8, Albumin/Globulin Ratio 0.3L 05/25/20 06:21: POC Whole Blood Glucose 130H Height (Feet): 5 Height (Inches): 3.00 Weight (Pounds): 160 Objective General Appearance: WD/WN, no apparent distress, alert. 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 grossly normal, alert, oriented x 3, responsive Skin: normal pigmentation Lymphatic: normal anterior cervical (L), normal anterior cervical (R) Assessment/Plan Problem List: (1) Pulmonary fibrosis ICD Codes: J84.10 - Pulmonary fibrosis, unspecified SNOMED: 96562098 (2) History of asthma ICD Codes: Z87.09 - Personal history of other diseases of the respiratory system SNOMED: 905040020 (3) Asthma ICD Codes: J45.909 - Unspecified asthma, uncomplicated SNOMED: 278857810 (4) NSTEMI (non-ST elevated myocardial infarction) ICD Codes: I21.4 - Non-ST elevation (NSTEMI) myocardial infarction SNOMED: 316692945 (5) Elevated troponin ICD Codes: R79.89 - Other specified abnormal findings of blood chemistry SNOMED: 123756861, 995521395, 869004126 (6) COPD (chronic obstructive pulmonary disease) ICD Codes: J44.9 - Chronic obstructive pulmonary disease, unspecified SNOMED: 06233077 (7) Atrial fibrillation with RVR ICD Codes: I48.91 - Unspecified atrial fibrillation SNOMED: 616563413868465 (8) Community acquired pneumonia ICD Codes: J18.9 - Pneumonia, unspecified organism SNOMED: 104586079 Status: stable Assessment/Plan: cont iv abx fluconazole for fungal uti repeat labws today _ ?lab error water flushes via ngt monitor renal fxn/lytes ngt feeds wean vent as able BP rx keep dry dvt/stress ulcer prophylaxis skin care turn q2 critical and guarded Bradford Linn MD May 25, 2020 07:20
--- NOTE | 2020-05-25 07:36 | NUR ---
NURSE NOTES: Patient failed weening with RT, patient Apneic, returned to previous vent settings: AC 18, TV 600, FiO2 40%, PEEP 5. Patient's O2 saturation at 98%-100%.
--- NOTE | 2020-05-25 07:47 | NUR ---
NURSE NOTES: Patient seen and assessed by Dr. Torres.
[2020-05-25] MEDS: Fluconazole 100mg tab ORAL SCH (08:42)
[2020-05-25] MEDS: Aspirin EC 81mg tab ORAL SCH (08:42)
[2020-05-25] MEDS: Eliquis 2.5mg tablet ORAL SCH ×2 (08:42→17:06)
--- NOTE | 2020-05-25 09:06 | NUR ---
NURSE NOTES: Patient complained of discomfort, repositioned patient and patient confirmed she was comfortable. Patient is afebrile, axillary temperature 99.2 degrees. Oral care provided and oral suctioning done, thick clear secretions removed. Endotracheal suctioning done, scant amount of sputum removed.
[2020-05-25] MEDS: Wixela 100/50 Inhaler - 60 dose INH SCH ×2 (10:00→22:00)
--- NOTE | 2020-05-25 10:00 | NUR ---
NURSE NOTES: Patient requested water, provided patient with cold water oral sponge and oral moisturizer from oral care kit.
--- NOTE | 2020-05-25 11:15 | NUR ---
RESPIRATORY NOTES PT placed on SBT - CPAP 5, PS 10 PT unable to generate adequate tidal volumes - <100 PT then placed back onto previous vent settings. RN Manny aware. Will continue to monitor.
--- NOTE | 2020-05-25 12:01 | Infectious Diseases Prog Note ---
Assessment/Plan Assessment/Plan antibiotics : fluconazole 9..20- A 1. COVID 19 pneumonia s/p ivermectin 9..20 2. renal failure 3. increased LFT 4. COPD 5. CHF 6. asthma 7. respiratory failure 8. leucocytosis likely secondary to steroids improving 9. pseudomonas pneumonia 10. fungal UTI P 1. continue fluconazole 1 more day 2. will follow up cultures Subjective ROS Limited/Unobtainable: Yes Allergies: Coded Allergies: CIPROFLOXACIN (Verified Allergy, Unknown, 09/27/17) Objective Last 24 Hour Vital Signs Date Time Temp Pulse Resp B/P (MAP) Pulse Ox O2 Delivery O2 Flow Rate FiO2 05/25/20 11:00 110 14 99/52 (68) 100 05/25/20 10:00 110 14 102/49 (66) 100 05/25/20 09:00 112 14 102/53 (69) 100 05/25/20 08:03 110 05/25/20 08:00 Mechanical Ventilator Mechanical Ventilator 05/25/20 08:00 99.2 109 14 105/51 (69) 100 05/25/20 08:00 30 05/25/20 07:15 106 14 30 05/25/20 07:00 109 14 99/48 (65) 100 05/25/20 06:00 106 14 99/46 (63) 100 05/25/20 06:00 106 99/46 05/25/20 05:00 103 14 96/49 (65) 100 05/25/20 04:00 Mechanical Ventilator Mechanical Ventilator 05/25/20 04:00 103 05/25/20 04:00 98.8 102 14 93/46 (62) 99 05/25/20 04:00 30 05/25/20 03:30 103 14 30 05/25/20 03:00 106 18 98/51 (67) 100 05/25/20 02:00 101 14 88/46 (60) 99 05/25/20 01:00 105 14 94/47 (63) 99 05/25/20 00:12 99.9 05/25/20 00:00 100.3 114 14 98/50 (66) 99 05/25/20 00:00 117 05/25/20 00:00 Mechanical Ventilator Mechanical Ventilator 05/25/20 00:00 30 05/24/20 23:15 120 14 30 05/24/20 23:00 118 15 89/46 (60) 99 05/24/20 22:00 115 15 91/48 (62) 99 05/24/20 22:00 120 92/47 05/24/20 21:00 120 15 92/47 (62) 100 05/24/20 20:00 Mechanical Ventilator Mechanical Ventilator 05/24/20 20:00 98.7 122 15 96/50 (65) 100 05/24/20 20:00 123 05/24/20 20:00 30 05/24/20 19:00 118 14 89/58 (68) 100 05/24/20 19:00 126 14 30 05/24/20 18:00 124 17 93/52 (66) 100 05/24/20 17:00 127 14 94/53 (67) 95 05/24/20 16:00 129 05/24/20 16:00 30 05/24/20 16:00 Mechanical Ventilator Mechanical Ventilator 05/24/20 16:00 120 16 113/59 (77) 97 05/24/20 15:24 125 14 30 05/24/20 15:00 99.0 127 15 95/57 (70) 98 05/24/20 14:30 124 14 87/51 (63) 98 05/24/20 14:00 123 14 91/55 (67) 97 05/24/20 13:42 124 92/53 05/24/20 13:00 120 14 92/45 (61) 97 Height (Feet): 5 Height (Inches): 3.00 Weight (Pounds): 160 HEENT: other - intubated Laboratory Tests Test 05/24/20 13:34 05/24/20 16:17 05/24/20 16:38 05/24/20 23:30 POC Whole Blood Glucose Pending 111 MG/DL (74-106) H 115 MG/DL (74-106) H Urine Color Pale yellow Urine Appearance Cloudy Urine pH 5 (4.5-8.0) Urine Specific [place] 1.010 (1.005-1.035) Urine Protein 2+ (NEGATIVE) H Urine Glucose (UA) Negative (NEGATIVE) Urine Ketones Negative (NEGATIVE) Urine Blood 2+ (NEGATIVE) H Urine Nitrite Negative (NEGATIVE) Urine Bilirubin Negative (NEGATIVE) Urine Urobilinogen Normal MG/DL (0.0-1.0) Urine Leukocyte Esterase 2+ (NEGATIVE) H Urine RBC 5-10 /HPF (0 - 2) H Urine WBC 5-10 /HPF (0 - 2) H Urine Squamous Epithelial Cells Few /LPF (NONE/OCC) Urine Amorphous Sediment Moderate /LPF (NONE) H Urine Bacteria Few /HPF (NONE) Urine Yeast Many /HPF (NONE) H Test 05/25/20 04:42 05/25/20 06:21 White Blood Count 3.8 K/UL (4.8-10.8) L Red Blood Count 2.94 M/UL (4.20-5.40) L Hemoglobin 8.3 G/DL (12.0-16.0) L Hematocrit 24.4 % (37.0-47.0) L Mean Corpuscular Volume 83 FL (80-99) Mean Corpuscular Hemoglobin 28.1 PG (27.0-31.0) Mean Corpuscular Hemoglobin Concent 33.9 G/DL (32.0-36.0) Red Cell Distribution Width 17.2 % (11.6-14.8) H Platelet Count 111 K/UL (150-450) L Mean Platelet Volume 7.0 FL (6.5-10.1) Neutrophils (%) (Auto) 74.2 % (45.0-75.0) Lymphocytes (%) (Auto) 13.3 % (20.0-45.0) L Monocytes (%) (Auto) 5.6 % (1.0-10.0) Eosinophils (%) (Auto) 5.7 % (0.0-3.0) H Basophils (%) (Auto) 1.1 % (0.0-2.0) Sodium Level 147 MMOL/L (136-145) H Potassium Level 4.2 MMOL/L (3.5-5.1) Chloride Level 113 MMOL/L (98-107) H Carbon Dioxide Level 24 MMOL/L (21-32) Anion Gap 10 mmol/L (5-15) Blood Urea Nitrogen 90 mg/dL (7-18) H Creatinine 2.1 MG/DL (0.55-1.30) H Estimat Glomerular Filtration Rate 27.4 mL/min (>60) Glucose Level 121 MG/DL (74-106) H Calcium Level 8.0 MG/DL (8.5-10.1) L Total Bilirubin 0.8 MG/DL (0.2-1.0) Aspartate Amino Transf (AST/SGOT) 148 U/L (15-37) H Alanine Aminotransferase (ALT/SGPT) 217 U/L (12-78) H Alkaline Phosphatase 232 U/L (46-116) H Total Protein 4.8 G/DL (6.4-8.2) L Albumin 1.0 G/DL (3.4-5.0) L Globulin 3.8 g/dL Albumin/Globulin Ratio 0.3 (1.0-2.7) L POC Whole Blood Glucose 130 MG/DL (74-106) H Current Medications Medications (Trade) Dose Ordered Sig/Ghislaine Route PRN Reason Start Time Stop Time Status Last Admin Dose Admin Acetaminophen (Tylenol) 500 mg Q4H PRN ORAL Mild Pain (Pain Scale 1-3) 05/11/20 20:00 06/02/20 19:59 05/24/20 23:42 Albuterol Sulfate (Proventil MDI) 2 puff Q4H PRN INH Shortness of Breath 05/11/20 20:00 08/01/20 11:59 05/13/20 10:30 Apixaban (Eliquis) 2.5 mg BID ORAL 05/12/20 09:00 08/01/20 17:59 05/23/20 18:16 Aspirin (Ecotrin) 81 mg DAILY ORAL 05/12/20 09:00 06/17/20 15:59 05/25/20 08:42 Dextrose (Dextrose 50%) 25 ml Q30M PRN IV Hypoglycemia 05/22/20 18:30 08/20/20 18:29 Dextrose (Dextrose 50%) 50 ml Q30M PRN IV Hypoglycemia 05/22/20 18:30 08/20/20 18:29 Diltiazem HCl (Cardizem Tab) 60 mg EVERY 8 HOURS ORAL 05/16/20 06:00 06/15/20 05:59 05/23/20 21:47 Fluconazole (Diflucan) 100 mg DAILY ORAL 05/20/20 13:00 05/27/20 12:59 05/25/20 08:42 Insulin Aspart (NovoLOG) Q6HR SUBQ 05/23/20 00:00 08/20/20 20:59 05/25/20 11:18 Pantoprazole (Protonix) 40 mg DAILY ORAL 05/12/20 09:00 06/02/20 15:59 05/25/20 08:42 Salmeterol Xinafoate/ Fluticasone (Advair 100/50 Diskus) 1 puffs BIDRT INH 05/11/20 22:00 08/09/20 21:59 05/16/20 09:02 Camilo Cameron MD May 25, 2020 12:01
--- NOTE | 2020-05-25 12:05 | NUR ---
NURSE NOTES: Oral care given to patient, endotracheal suctioning done, scant amount of sputum removed. Insulin administered as prescribed. Turned and repositioned patient, will continue to monitor.
--- NOTE | 2020-05-25 12:22 | Pulmonolgy Critical Care Note ---
Critical Care - Asmt/Plan Assessment/Plan: Pulmonary CCM Progress Note ROS Limited/Unobtainable: Yes Constitutional: Denies: fever Gastrointestinal/Abdominal: Denies: nausea, vomiting, diarrhea Musculoskeletal: Denies: pain Allergies: Coded Allergies: CIPROFLOXACIN (Verified Allergy, Unknown, 09/27/17) All Systems: reviewed and negative except above Subjective on vent- still not weaning well comfortable sedated reduced LOC ICU care reviewed Objective Vital Signs noted Objective deferred due to COVID Laboratory Tests noted Assessment/Plan Impression: COVID-19 Chronic obstructive pulmonary disease/Asthma Community acquired pneumonia Atrial fibrillation with RVR Elevated troponin Congestive heart Failure sinus tachycardia Hypoxemia transaminitis with gallstones consider cholecystitis acute on chronic renal failure acute respiratory failure hypotension tachycardia transaminitis Plan ID noted gi to see and repeat liver enzymes monitor heart rate on cardizem Vent support/unable to wean wean oxygen - low flow at prsent feeds per dietary and monitor residuals IV therapy noted Bronchodilator therapy Eliquis and monitor HH Monitor labs/ renal follow up - renal function still reduced- renal following Covid 19 Isolation- per ID nutrition and NG feeds reviewed care and optimize position change and monitor skin surgical follow up noted monitor protein levels and adjust will d/w daughter; trach likely needed as unable to wean position change medications/laboratory data/nursing notes/ICU care reviewed in detail note reviewed and edited care discussed with RN and RT ICU time spent >40 minutes Critical Care - Objective Last 24 Hour Vital Signs Date Time Temp Pulse Resp B/P (MAP) Pulse Ox O2 Delivery O2 Flow Rate FiO2 05/25/20 12:00 109 05/25/20 12:00 Mechanical Ventilator Mechanical Ventilator 05/25/20 12:00 30 05/25/20 12:00 99.9 111 14 102/53 (69) 100 05/25/20 11:00 110 14 99/52 (68) 100 05/25/20 10:00 110 14 102/49 (66) 100 05/25/20 09:00 112 14 102/53 (69) 100 05/25/20 08:03 110 05/25/20 08:00 Mechanical Ventilator Mechanical Ventilator 05/25/20 08:00 99.2 109 14 105/51 (69) 100 05/25/20 08:00 30 05/25/20 07:15 106 14 30 05/25/20 07:00 109 14 99/48 (65) 100 05/25/20 06:00 106 14 99/46 (63) 100 05/25/20 06:00 106 99/46 05/25/20 05:00 103 14 96/49 (65) 100 05/25/20 04:00 Mechanical Ventilator Mechanical Ventilator 05/25/20 04:00 103 05/25/20 04:00 98.8 102 14 93/46 (62) 99 05/25/20 04:00 30 05/25/20 03:30 103 14 30 05/25/20 03:00 106 18 98/51 (67) 100 05/25/20 02:00 101 14 88/46 (60) 99 05/25/20 01:00 105 14 94/47 (63) 99 05/25/20 00:12 99.9 05/25/20 00:00 100.3 114 14 98/50 (66) 99 05/25/20 00:00 117 05/25/20 00:00 Mechanical Ventilator Mechanical Ventilator 05/25/20 00:00 30 05/24/20 23:15 120 14 30 05/24/20 23:00 118 15 89/46 (60) 99 05/24/20 22:00 115 15 91/48 (62) 99 05/24/20 22:00 120 92/47 05/24/20 21:00 120 15 92/47 (62) 100 05/24/20 20:00 Mechanical Ventilator Mechanical Ventilator 05/24/20 20:00 98.7 122 15 96/50 (65) 100 05/24/20 20:00 123 05/24/20 20:00 30 05/24/20 19:00 118 14 89/58 (68) 100 05/24/20 19:00 126 14 30 05/24/20 18:00 124 17 93/52 (66) 100 05/24/20 17:00 127 14 94/53 (67) 95 05/24/20 16:00 129 05/24/20 16:00 30 05/24/20 16:00 Mechanical Ventilator Mechanical Ventilator 05/24/20 16:00 120 16 113/59 (77) 97 05/24/20 15:24 125 14 30 05/24/20 15:00 99.0 127 15 95/57 (70) 98 05/24/20 14:30 124 14 87/51 (63) 98 05/24/20 14:00 123 14 91/55 (67) 97 05/24/20 13:42 124 92/53 05/24/20 13:00 120 14 92/45 (61) 97 Accucheck: 146 Critical Care - Subjective ROS Limited/Unobtainable: Yes Condition: stable FI02: 30 Vent Support Breath Rate: 14 Vent Support Mode: AC Vent Tidal Volume: 500 Sputum Amount: Moderate PEEP: 5.0 PIP: 29 Tube Feeding Amount: 40 I&O: Intake and Output 05/24/20 05/25/20 19:00 07:00 Intake Total 610 ml 400 ml Output Total 420 ml 510 ml Balance 190 ml -110 ml Free Water 250 ml Tube Feeding 360 ml 400 ml Output Urine Total 420 ml 510 ml # Bowel Movements 3 5 ET-Tube: 7.5 ET Position: 20 Simone Anguiano MD May 25, 2020 12:22
--- NOTE | 2020-05-25 12:52 | Nephrology Progress Note ---
Assessment/Plan Assessment MELODY Hypernatremia COVID-19 respiratory failure copd COVID CHF Plan continue current iv free water flushes avoid NSAID Replace electrolyte as need it Subjective ROS Limited/Unobtainable: Yes Subjective no acute events Objective Objective Last 24 Hour Vital Signs Date Time Temp Pulse Resp B/P (MAP) Pulse Ox O2 Delivery O2 Flow Rate FiO2 05/25/20 12:00 109 05/25/20 12:00 Mechanical Ventilator Mechanical Ventilator 05/25/20 12:00 30 05/25/20 12:00 99.9 111 14 102/53 (69) 100 05/25/20 11:00 110 14 99/52 (68) 100 05/25/20 10:00 110 14 102/49 (66) 100 05/25/20 09:00 112 14 102/53 (69) 100 05/25/20 08:03 110 05/25/20 08:00 Mechanical Ventilator Mechanical Ventilator 05/25/20 08:00 99.2 109 14 105/51 (69) 100 05/25/20 08:00 30 05/25/20 07:15 106 14 30 05/25/20 07:00 109 14 99/48 (65) 100 05/25/20 06:00 106 14 99/46 (63) 100 05/25/20 06:00 106 99/46 05/25/20 05:00 103 14 96/49 (65) 100 05/25/20 04:00 Mechanical Ventilator Mechanical Ventilator 05/25/20 04:00 103 05/25/20 04:00 98.8 102 14 93/46 (62) 99 05/25/20 04:00 30 05/25/20 03:30 103 14 30 05/25/20 03:00 106 18 98/51 (67) 100 05/25/20 02:00 101 14 88/46 (60) 99 05/25/20 01:00 105 14 94/47 (63) 99 05/25/20 00:12 99.9 05/25/20 00:00 100.3 114 14 98/50 (66) 99 05/25/20 00:00 117 05/25/20 00:00 Mechanical Ventilator Mechanical Ventilator 05/25/20 00:00 30 05/24/20 23:15 120 14 30 05/24/20 23:00 118 15 89/46 (60) 99 05/24/20 22:00 115 15 91/48 (62) 99 05/24/20 22:00 120 92/47 05/24/20 21:00 120 15 92/47 (62) 100 05/24/20 20:00 Mechanical Ventilator Mechanical Ventilator 05/24/20 20:00 98.7 122 15 96/50 (65) 100 05/24/20 20:00 123 05/24/20 20:00 30 05/24/20 19:00 118 14 89/58 (68) 100 05/24/20 19:00 126 14 30 05/24/20 18:00 124 17 93/52 (66) 100 05/24/20 17:00 127 14 94/53 (67) 95 05/24/20 16:00 129 05/24/20 16:00 30 05/24/20 16:00 Mechanical Ventilator Mechanical Ventilator 05/24/20 16:00 120 16 113/59 (77) 97 05/24/20 15:24 125 14 30 05/24/20 15:00 99.0 127 15 95/57 (70) 98 05/24/20 14:30 124 14 87/51 (63) 98 05/24/20 14:00 123 14 91/55 (67) 97 05/24/20 13:42 124 92/53 05/24/20 13:00 120 14 92/45 (61) 97 Intake and Output 05/24/20 05/25/20 19:00 07:00 Intake Total 610 ml 400 ml Output Total 420 ml 510 ml Balance 190 ml -110 ml Free Water 250 ml Tube Feeding 360 ml 400 ml Output Urine Total 420 ml 510 ml # Bowel Movements 3 5 Laboratory Tests 05/24/20 13:34: POC Whole Blood Glucose [Pending] 05/24/20 16:17: Urine Color Pale yellow, Urine Appearance Cloudy, Urine pH 5, Urine Specific [place] 1.010, Urine Protein 2+H, Urine Glucose (UA) Negative, Urine Ketones Negative, Urine Blood 2+H, Urine Nitrite Negative, Urine Bilirubin Negative, Urine Urobilinogen Normal, Urine Leukocyte Esterase 2+H, Urine RBC 5-10H, Urine WBC 5-10H, Urine Squamous Epithelial Cells Few, Urine Amorphous Sediment ModerateH, Urine Bacteria Few, Urine Yeast ManyH 05/24/20 16:38: POC Whole Blood Glucose 111H 05/24/20 23:30: POC Whole Blood Glucose 115H 05/25/20 04:42: White Blood Count 3.8L, Red Blood Count 2.94L, Hemoglobin 8.3L, Hematocrit 24.4L , Mean Corpuscular Volume 83, Mean Corpuscular Hemoglobin 28.1, Mean Corpuscular Hemoglobin Concent 33.9, Red Cell Distribution Width 17.2H, Platelet Count 111L , Mean Platelet Volume 7.0, Neutrophils (%) (Auto) 74.2, Lymphocytes (%) (Auto) 13.3L, Monocytes (%) (Auto) 5.6, Eosinophils (%) (Auto) 5.7H, Basophils (%) (Auto) 1.1, Sodium Level 147H, Potassium Level 4.2, Chloride Level 113H, Carbon Dioxide Level 24, Anion Gap 10, Blood Urea Nitrogen 90H, Creatinine 2.1H, Estimat Glomerular Filtration Rate 27.4, Glucose Level 121H, Calcium Level 8.0L, Total Bilirubin 0.8, Aspartate Amino Transf (AST/SGOT) 148H, Alanine Aminotransferase (ALT/SGPT) 217H, Alkaline Phosphatase 232H, Total Protein 4.8L, Albumin 1.0L, Globulin 3.8, Albumin/Globulin Ratio 0.3L 05/25/20 06:21: POC Whole Blood Glucose 130H Height (Feet): 5 Height (Inches): 3.00 Weight (Pounds): 160 Objective General Appearance: WD/WN, no apparent distress, alert. 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
--- NOTE | 2020-05-25 15:30 | NUR ---
NURSE NOTES: Gave patient bed bath, turned and repositioned. Patient tolerated well, vital signs stable post bed bath and repositioning.
[2020-05-25] MEDS: Acetaminophen 650mg/20.3ml NG PRN (16:28)
--- NOTE | 2020-05-25 16:45 | NUR ---
NURSE NOTES: Patients axillary temperature read 101.2 degrees, gave patient prescribed Tylenol and flushed NGT with 200ml of ice water.
--- NOTE | 2020-05-25 17:44 | NUR ---
CASE MANAGEMENT: REVIEW 05/25/2020 SI;COVID PNA 101.2 117 15 90/47 99% ON MECH VENT FIO2 30 WBC 3.8 H/H 8.3/24.4 PLT 111 NA+ 147 BUN+ 90 CREAT+ 2.1 BG 130 AST/ALT 148/217 ALB 1.0 IS:CARDIZEM PO Q8H ELIQUIS PO BID ASA PO QD PROTONIX PO QD DIFLUCAN PO QD ICU PLAN OF CARE: on vent- still not weaning well Hypotensive and tachy this am
[2020-05-25] MEDS ORDERED: Tubing IV Secondary IV ONE (18:53)
[2020-05-25] MEDS ORDERED: Sterile Water Irrig 1000ml IRRIG ONE (18:53)
[2020-05-25] MEDS ORDERED: NS 275ml ONE (18:53)
--- NOTE | 2020-05-25 19:19 | NUR ---
NURSE HAND-OFF REPORT: Latest Vital Signs: Temperature 98.8 , Pulse 108 , B/P 99 /55 , Respiratory Rate 15 , O2 SAT 100 , Mechanical Ventilator, O2 Flow Rate 4.0 . Vital Sign Comment: EKG Rhythm: Sinus Tachycardia Rhythm change?: N Notified?: N Response: No New Orders Received Latest [place] Fall Score: 50 Fall Risk: High Risk Safety Measures: Call light Within Reach, Bed Alarm Zone 1, Side Rails Side Rails x3, Bed position Low and Locked. Fall Precautions: Door Sign Report given to Anna SALGADO.
--- NOTE | 2020-05-25 19:30 | NUR ---
NURSE NOTES: Received report from DAMIAN Bryant. Pt is resting on the bed and awake and able to open the eye spontaneously. pt has ETT and orally intubated and Vet setting with AC: 14, T:500, P:5, FiO2 30% and SaO2 100% noted. Pt has NGT on Rt. nares and and checked placement. On running with Glucerna 1.5 @ 40cc/hr and no residual noted. Denied pain at this time. Keep cooling measure. 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 IV site intact and no sign of infiltration noted. Pt has bilateral soft restraint. checked circulation and comfort. Pt has Riojas cath and patent and still noted sedimentation. On proper isolation for COVID 19. Placed fall precaution. Will continue to care plan.
--- NOTE | 2020-05-25 20:54 | General Progress Note ---
Subjective Allergies: Coded Allergies: CIPROFLOXACIN (Verified Allergy, Unknown, 09/27/17) Subjective Above noted d/w staff veterinarian tolerating TF Objective Last 24 Hour Vital Signs Date Time Temp Pulse Resp B/P (MAP) Pulse Ox O2 Delivery O2 Flow Rate FiO2 05/25/20 20:00 Mechanical Ventilator Mechanical Ventilator 05/25/20 20:00 99.8 109 15 97/53 (68) 100 05/25/20 20:00 30 05/25/20 20:00 109 05/25/20 19:36 107 15 30 05/25/20 19:00 108 15 99/55 (70) 100 05/25/20 18:00 113 16 103/53 (70) 100 05/25/20 17:18 98.8 05/25/20 17:00 113 20 101/58 (72) 100 05/25/20 16:00 Mechanical Ventilator Mechanical Ventilator 05/25/20 16:00 116 05/25/20 16:00 101.2 117 15 90/47 (61) 99 05/25/20 16:00 30 05/25/20 15:15 115 14 30 05/25/20 15:00 110 14 104/50 (68) 100 05/25/20 14:05 111 104/50 05/25/20 14:00 110 14 104/50 (68) 100 05/25/20 13:00 109 14 104/47 (66) 100 05/25/20 12:00 109 05/25/20 12:00 Mechanical Ventilator Mechanical Ventilator 05/25/20 12:00 30 05/25/20 12:00 99.9 111 14 102/53 (69) 100 05/25/20 11:15 110 14 30 05/25/20 11:15 100 05/25/20 11:00 110 14 99/52 (68) 100 05/25/20 10:00 110 14 102/49 (66) 100 05/25/20 09:00 112 14 102/53 (69) 100 05/25/20 08:03 110 05/25/20 08:00 Mechanical Ventilator Mechanical Ventilator 05/25/20 08:00 99.2 109 14 105/51 (69) 100 05/25/20 08:00 30 05/25/20 07:15 106 14 30 05/25/20 07:00 109 14 99/48 (65) 100 05/25/20 06:00 106 14 99/46 (63) 100 05/25/20 06:00 106 99/46 05/25/20 05:00 103 14 96/49 (65) 100 05/25/20 04:00 Mechanical Ventilator Mechanical Ventilator 05/25/20 04:00 103 05/25/20 04:00 98.8 102 14 93/46 (62) 99 05/25/20 04:00 30 05/25/20 03:30 103 14 30 05/25/20 03:00 106 18 98/51 (67) 100 05/25/20 02:00 101 14 88/46 (60) 99 05/25/20 01:00 105 14 94/47 (63) 99 05/25/20 00:12 99.9 05/25/20 00:00 100.3 114 14 98/50 (66) 99 05/25/20 00:00 117 05/25/20 00:00 Mechanical Ventilator Mechanical Ventilator 05/25/20 00:00 30 05/24/20 23:15 120 14 30 05/24/20 23:00 118 15 89/46 (60) 99 05/24/20 22:00 115 15 91/48 (62) 99 05/24/20 22:00 120 92/47 05/24/20 21:00 120 15 92/47 (62) 100 Intake and Output 05/24/20 05/25/20 19:00 07:00 Intake Total 610 ml 400 ml Output Total 420 ml 510 ml Balance 190 ml -110 ml Free Water 250 ml Tube Feeding 360 ml 400 ml Output Urine Total 420 ml 510 ml # Bowel Movements 3 5 Laboratory Tests 05/24/20 23:30: POC Whole Blood Glucose 115H 05/25/20 04:42: White Blood Count 3.8L, Red Blood Count 2.94L, Hemoglobin 8.3L, Hematocrit 24.4L , Mean Corpuscular Volume 83, Mean Corpuscular Hemoglobin 28.1, Mean Corpuscular Hemoglobin Concent 33.9, Red Cell Distribution Width 17.2H, Platelet Count 111L, Mean Platelet Volume 7.0, Neutrophils (%) (Auto) 74.2, Lymphocytes (%) (Auto) 13.3L, Monocytes (%) (Auto) 5.6, Eosinophils (%) (Auto) 5.7H, Basophils (%) (Auto) 1.1, Sodium Level 147H, Potassium Level 4.2, Chloride Level 113H, Carbon Dioxide Level 24, Anion Gap 10, Blood Urea Nitrogen 90H, Creatinine 2.1H, Estimat Glomerular Filtration Rate 27.4, Glucose Level 121H, Calcium Level 8.0L, Total Bilirubin 0.8, Aspartate Amino Transf (AST/SGOT) 148H, Alanine Aminotransferase (ALT/SGPT) 217H, Alkaline Phosphatase 232H, Total Protein 4.8L, Albumin 1.0L, Globulin 3.8, Albumin/Globulin Ratio 0.3L 05/25/20 06:21: POC Whole Blood Glucose 130H Height (Feet): 5 Height (Inches): 3.00 Weight (Pounds): 160 Objective Elderly AA woman seen in ICU exam limited due to COVID isolation comfortable appearing NCAT (+) Feeding tube - tolerating well (+) intubated - on ventilator abd non distended Assessment/Plan Status: stable Assessment/Plan: Assessment - Transaminitis, likely due to COVID-19 - Gallstones - Resp failure - Dysphagia - OGT - CHF - Pulm HTN - Arrhythmia - Leukocytosis - Renal failure Recommendations - monitor LFT - Continue TF - Abx - ICU care - PEG at later date once stabilized - will consider repeat abd ultrasound Justine Torres MD May 25, 2020 20:54
--- NOTE | 2020-05-25 21:31 | Surgery Progress Note ---
Surgery Progress Note Subjective Additional Comments no acute events Objective Last 24 Hour Vital Signs Date Time Temp Pulse Resp B/P (MAP) Pulse Ox O2 Delivery O2 Flow Rate FiO2 05/25/20 21:00 110 17 106/53 (70) 100 05/25/20 20:00 Mechanical Ventilator Mechanical Ventilator 05/25/20 20:00 99.8 109 15 97/53 (68) 100 05/25/20 20:00 30 05/25/20 20:00 109 05/25/20 19:36 107 15 30 05/25/20 19:00 108 15 99/55 (70) 100 05/25/20 18:00 113 16 103/53 (70) 100 05/25/20 17:18 98.8 05/25/20 17:00 113 20 101/58 (72) 100 05/25/20 16:00 Mechanical Ventilator Mechanical Ventilator 05/25/20 16:00 116 05/25/20 16:00 101.2 117 15 90/47 (61) 99 05/25/20 16:00 30 05/25/20 15:15 115 14 30 05/25/20 15:00 110 14 104/50 (68) 100 05/25/20 14:05 111 104/50 05/25/20 14:00 110 14 104/50 (68) 100 05/25/20 13:00 109 14 104/47 (66) 100 05/25/20 12:00 109 05/25/20 12:00 Mechanical Ventilator Mechanical Ventilator 05/25/20 12:00 30 05/25/20 12:00 99.9 111 14 102/53 (69) 100 05/25/20 11:15 110 14 30 05/25/20 11:15 100 05/25/20 11:00 110 14 99/52 (68) 100 05/25/20 10:00 110 14 102/49 (66) 100 05/25/20 09:00 112 14 102/53 (69) 100 05/25/20 08:03 110 05/25/20 08:00 Mechanical Ventilator Mechanical Ventilator 05/25/20 08:00 99.2 109 14 105/51 (69) 100 05/25/20 08:00 30 05/25/20 07:15 106 14 30 05/25/20 07:00 109 14 99/48 (65) 100 05/25/20 06:00 106 14 99/46 (63) 100 05/25/20 06:00 106 99/46 05/25/20 05:00 103 14 96/49 (65) 100 05/25/20 04:00 Mechanical Ventilator Mechanical Ventilator 05/25/20 04:00 103 05/25/20 04:00 98.8 102 14 93/46 (62) 99 05/25/20 04:00 30 05/25/20 03:30 103 14 30 05/25/20 03:00 106 18 98/51 (67) 100 05/25/20 02:00 101 14 88/46 (60) 99 05/25/20 01:00 105 14 94/47 (63) 99 05/25/20 00:12 99.9 05/25/20 00:00 100.3 114 14 98/50 (66) 99 05/25/20 00:00 117 05/25/20 00:00 Mechanical Ventilator Mechanical Ventilator 05/25/20 00:00 30 05/24/20 23:15 120 14 30 05/24/20 23:00 118 15 89/46 (60) 99 05/24/20 22:00 115 15 91/48 (62) 99 05/24/20 22:00 120 92/47 I&O Intake and Output 05/24/20 05/25/20 19:00 07:00 Intake Total 610 ml 400 ml Output Total 420 ml 510 ml Balance 190 ml -110 ml Free Water 250 ml Tube Feeding 360 ml 400 ml Output Urine Total 420 ml 510 ml # Bowel Movements 3 5 Dressing: other Wound: other Cardiovascular: RSR Respiratory: decreased breath sounds Abdomen: non-tender, present bowel sounds Extremities: no tenderness, no cyanosis Laboratory Tests Test 05/24/20 23:30 05/25/20 04:42 05/25/20 06:21 POC Whole Blood Glucose 115 MG/DL (74-106) H 130 MG/DL (74-106) H White Blood Count 3.8 K/UL (4.8-10.8) L Red Blood Count 2.94 M/UL (4.20-5.40) L Hemoglobin 8.3 G/DL (12.0-16.0) L Hematocrit 24.4 % (37.0-47.0) L Mean Corpuscular Volume 83 FL (80-99) Mean Corpuscular Hemoglobin 28.1 PG (27.0-31.0) Mean Corpuscular Hemoglobin Concent 33.9 G/DL (32.0-36.0) Red Cell Distribution Width 17.2 % (11.6-14.8) H Platelet Count 111 K/UL (150-450) L Mean Platelet Volume 7.0 FL (6.5-10.1) Neutrophils (%) (Auto) 74.2 % (45.0-75.0) Lymphocytes (%) (Auto) 13.3 % (20.0-45.0) L Monocytes (%) (Auto) 5.6 % (1.0-10.0) Eosinophils (%) (Auto) 5.7 % (0.0-3.0) H Basophils (%) (Auto) 1.1 % (0.0-2.0) Sodium Level 147 MMOL/L (136-145) H Potassium Level 4.2 MMOL/L (3.5-5.1) Chloride Level 113 MMOL/L (98-107) H Carbon Dioxide Level 24 MMOL/L (21-32) Anion Gap 10 mmol/L (5-15) Blood Urea Nitrogen 90 mg/dL (7-18) H Creatinine 2.1 MG/DL (0.55-1.30) H Estimat Glomerular Filtration Rate 27.4 mL/min (>60) Glucose Level 121 MG/DL (74-106) H Calcium Level 8.0 MG/DL (8.5-10.1) L Total Bilirubin 0.8 MG/DL (0.2-1.0) Aspartate Amino Transf (AST/SGOT) 148 U/L (15-37) H Alanine Aminotransferase (ALT/SGPT) 217 U/L (12-78) H Alkaline Phosphatase 232 U/L (46-116) H Total Protein 4.8 G/DL (6.4-8.2) L Albumin 1.0 G/DL (3.4-5.0) L Globulin 3.8 g/dL Albumin/Globulin Ratio 0.3 (1.0-2.7) L Plan Problems: (1) Elevated troponin (2) Atrial fibrillation with RVR (3) COVID-19 Assessment & Plan: ++ as per pulm and ID DAILY ESTIMATED NEEDS: Needs based on Critical Care, ARF/ 56kg abw 22-28 kcals/kg 4051-8700 total kcals 0.8-1.5 (increase w/ renal improvement) g protein/kg 45-84 g total protein 25-30 mL/kg 2725-3063 total fluid mLs NUTRITION DIAGNOSIS: * Altered nutrition related lab values r/t clinical status as evidenced by elev BUN(82), creat(3.8) trending up, critical ABG (low pH, elev CO2)-> now improved. * Swallowing difficulty R/T respiratory status as evidenced by s/p oral intubation, on OGT feeds. 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: MULTINEEDLE SHIRRER eval post extubation ENTERAL NUTRITION RECOMMENDATIONS: Nepro @ 35ml/hr x 24 hrs to provide 840ml, 1512kcal, 68g prot, 610ml free water * W/ worsening renal fxn, rec to continue Nepro * As tolerated, increase goal rate to 35ml/hr x 24 hrs to meet 100% est kcal/prot needs ADDITIONAL RECOMMENDATIONS: 1) Calibrated bedscale wt 2) Monitor renal fxn and lytes, need to continue Nepro Creat trending up 3) Rec niss w/ solumedrol (4) Community acquired pneumonia (5) COPD (chronic obstructive pulmonary disease) (6) Pulmonary fibrosis (7) Asthma (8) History of asthma (9) NSTEMI (non-ST elevated myocardial infarction) (10) Moderate to severe pulmonary hypertension (11) Asthma exacerbation (12) Abnormal LFTs Assessment & Plan: afebrile, HD stable labs noted lft's elevated US reviewed exam benign gb likely reactive from underlying pathology unlikely cholecystitis clinically fluid overload trend labs will monitor exam clinically covid + prognosis guarded cxr reviewed on abx worsening plan repeat US - noted cannot get hida given covid labs noted worsening leukocytosis Gallbladder demonstrates wall thickening and wall edema, gallbladder wall measuring up to 6 mm thick. There are gallstones. Sonographic Escoto's sign is negative. Common bile duct measures 3 mm in diameter. No intrahepatic biliary ductal dilatation. Liver demonstrates normal echogenicity, no focal abnormality. Portal vein and hepatic veins are patent. Pancreas is unremarkable. Spleen is unremarkable. Left kidney measures 9.2 cm in length. Right kidney measures 9.9 cm length. Both kidneys demonstrate normal echogenicity. There is no hydronephrosis. Small cyst is seen in the right kidney. . Abdominal aorta was not imaged . There is trace ascites. There is a small right pleural effusion incidentally noted Impression: Small right pleural effusion. Trace ascites Cholelithiasis. Gallbladder wall thickening may be related to hemodynamic factors causing the pleural fluid and ascites, but could also indicate acute cholecystitis. Consider nuclear medicine hepatobiliary scan if there is high clinical suspicion. Negative for dilated bile ducts Small right renal cyst incidentally noted (13) Acute respiratory failure with hypoxia Quentin Sanchez May 25, 2020 21:31
--- NOTE | 2020-05-25 22:00 | NUR ---
NURSE NOTES: Pt is resting on the bed and able to open the eyes spontaneously. suction and oral care was done. Noted diarrhea and cleaned Pt and applied lotion and cream. Inserted rectal tube. Pt has Riojas cath and drainage well but still noted sedimentation. Tolerated well with current Vent setting. Keep cooling measure. Placed fall precaution. Will continue to monitor any change of condition.
[2020-05-26] VITALS (26 sets, daily range): BP systolic 92–115; BP diastolic 49–66
--- NOTE | 2020-05-26 | NUR ---
NURSE NOTES: endotracheal suction and oral care was done. Turn and reposition. BT checked 99.3F. Keep cooling measure. SaO2 100% with current Vent setting. NGT feeding well and no residual noted. On rectal tube and dark brownish BM drainage well. Placed fall precaution. Provided good sleep environment. Will continue to monitor any change of condition.
--- NOTE | 2020-05-26 02:00 | NUR ---
NURSE NOTES: Pt is resting on the bed and no sign of acute distress noted. SaO2 99-100% with current Vent setting. BP is stable and ST on library monitor. Provided endotracheal suction and mouth care. Will continue to monitor any change of condition.
--- NOTE | 2020-05-26 02:12 | Cardiology Progress Note ---
Subjective DATE OF SERVICE: May 25, 2020 Condition remains critical; patient remains [facility] - failed wean. Monitor: AFib with episodes of RVR and nonsustained VTach. Lactic acidosis resolved BP remains tenuous, as well as acid-base status. Sodium levels have normalized Episodes of tachyarrhythmias persist, and BP is increasingly tenuous and low. CXR (05/23) reviewed: patchy left infiltrates with small pl eff'n. ICU logs and cardiology care plan reviewed and updated Objective Last 24 Hour Vital Signs Date Time Temp Pulse Resp B/P (MAP) Pulse Ox O2 Delivery O2 Flow Rate FiO2 05/26/20 02:00 111 14 102/54 (70) 99 05/26/20 01:00 111 15 103/55 (71) 100 05/26/20 00:00 109 05/26/20 00:00 99.2 111 17 103/55 (71) 100 05/26/20 00:00 Mechanical Ventilator Mechanical Ventilator 05/26/20 00:00 30 05/25/20 23:00 110 18 101/57 (72) 100 05/25/20 22:56 109 16 30 05/25/20 22:00 114 99/50 05/25/20 22:00 114 19 103/51 (68) 100 05/25/20 21:00 110 17 106/53 (70) 100 05/25/20 20:00 Mechanical Ventilator Mechanical Ventilator 05/25/20 20:00 99.8 109 15 97/53 (68) 100 05/25/20 20:00 30 05/25/20 20:00 109 05/25/20 19:36 107 15 30 05/25/20 19:00 108 15 99/55 (70) 100 05/25/20 18:00 113 16 103/53 (70) 100 05/25/20 17:18 98.8 05/25/20 17:00 113 20 101/58 (72) 100 05/25/20 16:00 Mechanical Ventilator Mechanical Ventilator 05/25/20 16:00 116 05/25/20 16:00 101.2 117 15 90/47 (61) 99 05/25/20 16:00 30 05/25/20 15:15 115 14 30 05/25/20 15:00 110 14 104/50 (68) 100 05/25/20 14:05 111 104/50 05/25/20 14:00 110 14 104/50 (68) 100 05/25/20 13:00 109 14 104/47 (66) 100 05/25/20 12:00 109 05/25/20 12:00 Mechanical Ventilator Mechanical Ventilator 05/25/20 12:00 30 05/25/20 12:00 99.9 111 14 102/53 (69) 100 05/25/20 11:15 110 14 30 05/25/20 11:15 100 05/25/20 11:00 110 14 99/52 (68) 100 05/25/20 10:00 110 14 102/49 (66) 100 05/25/20 09:00 112 14 102/53 (69) 100 05/25/20 08:03 110 05/25/20 08:00 Mechanical Ventilator Mechanical Ventilator 05/25/20 08:00 99.2 109 14 105/51 (69) 100 05/25/20 08:00 30 05/25/20 07:15 106 14 30 05/25/20 07:00 109 14 99/48 (65) 100 05/25/20 06:00 106 14 99/46 (63) 100 05/25/20 06:00 106 99/46 05/25/20 05:00 103 14 96/49 (65) 100 05/25/20 04:00 Mechanical Ventilator Mechanical Ventilator 05/25/20 04:00 103 05/25/20 04:00 98.8 102 14 93/46 (62) 99 05/25/20 04:00 30 05/25/20 03:30 103 14 30 05/25/20 03:00 106 18 98/51 (67) 100 ROS: unchanged from my eval of 05/03/20 HEENT: Orally intubated, Mechanically Ventilated, Thin secretions ET Tube RHYTHM: Afib LUNGS: no accessory muscle use, expiratory wheezing, diminished breath sounds CARDIAC: normal S1 and S2, no murmur, irregularly irregular ABDOMEN: normal bowel sounds, non tender, soft, no organomegaly EXTREMITIES: no calf tenderness, +1 edema Laboratory Tests Test 05/25/20 04:42 05/25/20 06:21 05/26/20 00:00 White Blood Count 3.8 K/UL (4.8-10.8) L Red Blood Count 2.94 M/UL (4.20-5.40) L Hemoglobin 8.3 G/DL (12.0-16.0) L Hematocrit 24.4 % (37.0-47.0) L Mean Corpuscular Volume 83 FL (80-99) Mean Corpuscular Hemoglobin 28.1 PG (27.0-31.0) Mean Corpuscular Hemoglobin Concent 33.9 G/DL (32.0-36.0) Red Cell Distribution Width 17.2 % (11.6-14.8) H Platelet Count 111 K/UL (150-450) L Mean Platelet Volume 7.0 FL (6.5-10.1) Neutrophils (%) (Auto) 74.2 % (45.0-75.0) Lymphocytes (%) (Auto) 13.3 % (20.0-45.0) L Monocytes (%) (Auto) 5.6 % (1.0-10.0) Eosinophils (%) (Auto) 5.7 % (0.0-3.0) H Basophils (%) (Auto) 1.1 % (0.0-2.0) Sodium Level 147 MMOL/L (136-145) H Potassium Level 4.2 MMOL/L (3.5-5.1) Chloride Level 113 MMOL/L (98-107) H Carbon Dioxide Level 24 MMOL/L (21-32) Anion Gap 10 mmol/L (5-15) Blood Urea Nitrogen 90 mg/dL (7-18) H Creatinine 2.1 MG/DL (0.55-1.30) H Estimat Glomerular Filtration Rate 27.4 mL/min (>60) Glucose Level 121 MG/DL (74-106) H Calcium Level 8.0 MG/DL (8.5-10.1) L Total Bilirubin 0.8 MG/DL (0.2-1.0) Aspartate Amino Transf (AST/SGOT) 148 U/L (15-37) H Alanine Aminotransferase (ALT/SGPT) 217 U/L (12-78) H Alkaline Phosphatase 232 U/L (46-116) H Total Protein 4.8 G/DL (6.4-8.2) L Albumin 1.0 G/DL (3.4-5.0) L Globulin 3.8 g/dL Albumin/Globulin Ratio 0.3 (1.0-2.7) L POC Whole Blood Glucose 130 MG/DL (74-106) H Pending Microbiology Date/Time Source Procedure Growth Status 05/25/20 16:37 Stool Clostridium difficile Toxin Assay - Final Complete Assessment/Plan Assessment/Plan Acute on chronic respiratory acidosis Acute respiratory failure Shock LE edema due to severe pulmonary hypertension and right heart strain COPD exacerb with active bronchospasm Lactic acidosis COVID 19 PNA Acute on chr renal failure - now with hyperkalemia Chronic systolic/diastolic CHF Pulmonary fibrosis with chronic hypoxia Paroxysmal AFib with RVR Hx Multifocal atrial arrhythmias Pulmonary HTN - severe Hx NSVTach Severe protein/calorie malnutrition Acute myocardial ischemia Worsening transaminitis CRITICAL & GUARDED Vent support with on-going weaning efforts Hold diltiazem for low BP, but titrate for optimal rate control Steroids per pulmonary Inhaled bronchodilators IVF discontinued; reassess for diuresis. Full anticoagulation for cardioembolic prophyl Isolation Anti-viral rx per ID Monitor liver fxn Simone Perez MD May 26, 2020 02:12
--- NOTE | 2020-05-26 04:00 | NUR ---
NURSE NOTES : Given bed bath and Cleaned Pt and applied lotion and cream. Keep cooling measure. On NGT feeding and no residual noted. Turn and reposition. Placed fall precaution. Will continue to monitor any change of condition.
[2020-05-26 05:38] LABS: HEMATOCRIT 25.2 % (37.0-47.0); HEMOGLOBIN 8.3 G/DL (12.0-16.0); MEAN CORPUSCULAR VOLUME 83 FL (80-99); PLATELET COUNT 135 K/UL (150-450); RED BLOOD COUNT 3.02 M/UL (4.20-5.40); RED CELL DISTRIBUTION WIDTH 17.4 % (11.6-14.8); WHITE BLOOD COUNT 3.2 K/UL (4.8-10.8)
[2020-05-26] MEDS: NovoLOG Insulin Flexpen SUBQ SCH ×4 (06:08→18:00)
[2020-05-26] MEDS: dilTIAZem HCl 60mg tab ORAL SCH ×3 (06:17→23:32)
[2020-05-26] MEDS: Acetaminophen 650mg/20.3ml NG PRN (06:28)
--- NOTE | 2020-05-26 06:28 | NUR ---
NURSE NOTES: Noted BT: 100.5F by axillary. Given Tylenol as ordered. Keep cooling measure. Dr. Linn visited and assessed Pt. Will continue to monitor any change of condition.
[2020-05-26 06:37] LABS: ALBUMIN/GLOBULIN RATIO 0.3 (1.0-2.7); BILIRUBIN,TOTAL 0.6 MG/DL (0.2-1.0); CREATININE 2.2 MG/DL (0.55-1.30); POTASSIUM 4.1 MMOL/L (3.5-5.1)
--- NOTE | 2020-05-26 07:21 | NUR ---
NURSE HAND-OFF REPORT: Latest Vital Signs: Temperature 100.0 , Pulse 116 , B/P 99 /53 , Respiratory Rate 15 , O2 SAT 99 , Mechanical Ventilator, O2 Flow Rate 4.0 . Vital Sign Comment: EKG Rhythm: Sinus Tachycardia Rhythm change?: N Latest Lechuga Fall Score: 50 Fall Risk: High Risk Safety Measures: Call light Within Reach, Bed Alarm Zone 1, Side Rails Side Rails x3, Bed position Low and Locked. Fall Precautions: Door Sign Report given to DAMIAN Nur. Pt is resting on the bed and saO2 100% with current Vent setting. Tolerated well NGT feeding. Keep cooling measure for fever.
--- NOTE | 2020-05-26 07:30 | NUR ---
NURSE NOTES: Patient received from Anna SALGADO. Patient stable at this time with no s/sx of pain or distress. AOx1 able to express simple questions and able to follow commands. RR even and unlabored on ETT 7.5 20 lip line. Ventilator settings as ordered AC 14 500mL 30% P5. Cardiac sounds benign. Breath sounds diminished, rhoncus. Bowels sounds hyperactive. Feeding infusing at 40mL/hr. Zero residual. NGT in place. BL radial pulses normal. Edema present to hands +2 trace to LE. Riojas in place draining well to gravity. Rectal tube in place with stool in bag. Fluids TKO to peripheral IV. Restraints on with good ROM, sensation and circulation. Dependent edema present and previously noted unrelated to restraints. Side rails upx2, bed low and locked.
--- NOTE | 2020-05-26 07:31 | NUR ---
RD ASSESSMENT & RECOMMENDATIONS SEE CARE ACTIVITY FOR COMPLETE ASSESSMENT DAILY ESTIMATED NEEDS: Needs based on Critical Care, ARF/ 56kg abw 22-28 kcals/kg 2757-6130 total kcals 0.8-1.5 (increase w/ renal improvement) g protein/kg 45-84 g total protein 25-30 mL/kg 4488-7045 total fluid mLs NUTRITION DIAGNOSIS: * Altered nutrition related lab values r/t clinical status as evidenced by elev BUN(93 trend down), creat(2.0->4.0->2.2), low K (3.2-> wnl), critical ABG (low pH,elev CO2)-> now improved. * Swallowing difficulty R/T respiratory status as evidenced by s/p oral intubation, on NGT feeds. CURRENT TF:Glucerna 1.5 @ 40ml/hr x 24hrs ENTERAL NUTRITION RECOMMENDATIONS: Glucerna 1.5 @ 40ml/hr x 24hrs to provide 960ml, 1440kcal, 72g prot, 729ml free water * Maintain current TF * HOB over 30 degrees/ water flush per MD IF RENAL FXN WORSENS AGAIN W/ ELEV K/PHOS, rec previous TF of Nepro @ 35ml/hr x 24 hrs to provide 840ml, 1512kcal, 68g prot ADDITIONAL RECOMMENDATIONS: 1) Calibrated bedscale wt 2) Monitor renal fxn and lytes, need for renal TF -> Creat 2.0-> 4.0-> 3.7-> 2.2 -> Check phos level 3) Rec niss - now added, improved glycemic control 4) Probiotics for diarrhea .
--- NOTE | 2020-05-26 08:20 | Pulmonology Progress Note ---
Subjective ROS Limited/Unobtainable: Yes Constitutional: Reports: fever, other - Vp=510.4 Gastrointestinal/Abdominal: Denies: nausea, vomiting, diarrhea Musculoskeletal: Denies: pain Allergies: Coded Allergies: CIPROFLOXACIN (Verified Allergy, Unknown, 09/27/17) All Systems: reviewed and negative except above Subjective on vent- still not weaning well hypotensive and tachy persistent comfortable sedated reduced LOC d/w daughter who consented to trach/PEG ICU care reviewed Objective Last 24 Hour Vital Signs Date Time Temp Pulse Resp B/P (MAP) Pulse Ox O2 Delivery O2 Flow Rate FiO2 05/26/20 07:00 116 15 99/53 (68) 99 05/26/20 06:58 100.0 05/26/20 06:30 100.5 05/26/20 06:17 114 109/52 05/26/20 06:00 114 15 109/52 (71) 100 05/26/20 05:00 111 14 104/54 (71) 100 05/26/20 04:00 Mechanical Ventilator Mechanical Ventilator 05/26/20 04:00 111 05/26/20 04:00 99.3 112 16 102/53 (69) 100 05/26/20 04:00 30 05/26/20 03:48 110 15 30 05/26/20 03:00 111 14 97/59 (72) 99 05/26/20 02:00 111 14 102/54 (70) 99 05/26/20 01:00 111 15 103/55 (71) 100 05/26/20 00:00 109 05/26/20 00:00 99.2 111 17 103/55 (71) 100 05/26/20 00:00 Mechanical Ventilator Mechanical Ventilator 05/26/20 00:00 30 05/25/20 23:00 110 18 101/57 (72) 100 05/25/20 22:56 109 16 30 05/25/20 22:00 114 99/50 05/25/20 22:00 114 19 103/51 (68) 100 05/25/20 21:00 110 17 106/53 (70) 100 05/25/20 20:00 Mechanical Ventilator Mechanical Ventilator 05/25/20 20:00 99.8 109 15 97/53 (68) 100 05/25/20 20:00 30 05/25/20 20:00 109 05/25/20 19:36 107 15 30 05/25/20 19:00 108 15 99/55 (70) 100 05/25/20 18:00 113 16 103/53 (70) 100 05/25/20 17:18 98.8 05/25/20 17:00 113 20 101/58 (72) 100 05/25/20 16:00 Mechanical Ventilator Mechanical Ventilator 05/25/20 16:00 116 05/25/20 16:00 101.2 117 15 90/47 (61) 99 05/25/20 16:00 30 05/25/20 15:15 115 14 30 05/25/20 15:00 110 14 104/50 (68) 100 05/25/20 14:05 111 104/50 05/25/20 14:00 110 14 104/50 (68) 100 05/25/20 13:00 109 14 104/47 (66) 100 05/25/20 12:00 109 05/25/20 12:00 Mechanical Ventilator Mechanical Ventilator 05/25/20 12:00 30 05/25/20 12:00 99.9 111 14 102/53 (69) 100 05/25/20 11:15 110 14 30 05/25/20 11:15 100 05/25/20 11:00 110 14 99/52 (68) 100 05/25/20 10:00 110 14 102/49 (66) 100 05/25/20 09:00 112 14 102/53 (69) 100 Intake and Output 05/25/20 05/26/20 19:00 07:00 Intake Total 1000 ml 480 ml Output Total 790 ml 730 ml Balance 210 ml -250 ml Free Water 520 ml Tube Feeding 480 ml 480 ml Output Urine Total 790 ml 530 ml Stool Total 200 ml # Bowel Movements 1 1 Objective deferred due to COVID Microbiology Date/Time Source Procedure Growth Status 05/25/20 16:37 Stool Clostridium difficile Toxin Assay - Final Complete 05/24/20 16:17 Urine,Clean Catch Urine Culture - Preliminary Yeast Species Resulted Laboratory Tests 05/26/20 00:00: POC Whole Blood Glucose [Pending] 05/26/20 04:15: White Blood Count 3.2L, Red Blood Count 3.02L, Hemoglobin 8.3L, Hematocrit 25.2L , Mean Corpuscular Volume 83, Mean Corpuscular Hemoglobin 27.5, Mean Corpuscular Hemoglobin Concent 32.9, Red Cell Distribution Width 17.4H, Platelet Count 135L , Mean Platelet Volume 7.2, Neutrophils (%) (Auto) , Lymphocytes (%) (Auto) , Monocytes (%) (Auto) , Eosinophils (%) (Auto) , Basophils (%) (Auto) , Sodium Level 146H, Potassium Level 4.1, Chloride Level 111H, Carbon Dioxide Level 26, Anion Gap 9, Blood Urea Nitrogen 93H, Creatinine 2.2H, Estimat Glomerular Filtration Rate 25.9, Glucose Level 153H, Calcium Level 8.0L, Total Bilirubin 0.6, Aspartate Amino Transf (AST/SGOT) 82H, Alanine Aminotransferase (ALT/SGPT) 180H, Alkaline Phosphatase 297H, Total Protein 4.6L, Albumin 1.0L, Globulin 3.6, Albumin/Globulin Ratio 0.3L 05/26/20 05:23: POC Whole Blood Glucose [Pending] Current Medications Medications (Trade) Dose Ordered Sig/Ghislaine Route PRN Reason Start Time Stop Time Status Last Admin Dose Admin Acetaminophen (Tylenol) 500 mg Q4H PRN ORAL Mild Pain (Pain Scale 1-3) 05/11/20 20:00 06/02/20 19:59 05/24/20 23:42 Acetaminophen (Tylenol) 650 mg Q4H PRN NG Temp >100.5 05/25/20 16:15 06/24/20 16:14 05/26/20 06:28 Albuterol Sulfate (Proventil MDI) 2 puff Q4H PRN INH Shortness of Breath 05/11/20 20:00 08/01/20 11:59 05/13/20 10:30 Apixaban (Eliquis) 2.5 mg BID ORAL 05/12/20 09:00 08/01/20 17:59 05/25/20 17:06 Aspirin (Ecotrin) 81 mg DAILY ORAL 05/12/20 09:00 06/17/20 15:59 05/25/20 08:42 Dextrose (Dextrose 50%) 25 ml Q30M PRN IV Hypoglycemia 05/22/20 18:30 08/20/20 18:29 Dextrose (Dextrose 50%) 50 ml Q30M PRN IV Hypoglycemia 05/22/20 18:30 08/20/20 18:29 Diltiazem HCl (Cardizem Tab) 60 mg EVERY 8 HOURS ORAL 05/16/20 06:00 06/15/20 05:59 05/26/20 06:17 Fluconazole (Diflucan) 100 mg DAILY ORAL 05/20/20 13:00 05/27/20 12:59 05/25/20 08:42 Insulin Aspart (NovoLOG) Q6HR SUBQ 05/23/20 00:00 08/20/20 20:59 05/26/20 06:08 Pantoprazole (Protonix) 40 mg DAILY ORAL 05/12/20 09:00 06/02/20 15:59 05/25/20 08:42 Salmeterol Xinafoate/ Fluticasone (Advair 100/50 Diskus) 1 puffs BIDRT INH 05/11/20 22:00 08/09/20 21:59 05/16/20 09:02 Assessment/Plan Assessment/Plan Impression: COVID-19 Chronic obstructive pulmonary disease/Asthma Community acquired pneumonia Atrial fibrillation with RVR Elevated troponin Congestive heart Failure sinus tachycardia Hypoxemia transaminitis with gallstones consider cholecystitis acute on chronic renal failure acute respiratory failure hypotension tachycardia transaminitis MODS Plan ID noted gi to see and repeat liver enzymes and GT monitor heart rate on cardizem Vent support/unable to wean surgery for trach wean oxygen - low flow at prsent feeds per dietary and monitor residuals IV therapy noted Bronchodilator therapy Eliquis and monitor HH Monitor labs/ renal follow up - renal function still reduced- renal following Covid 19 Isolation- per ID nutrition and NG feeds reviewed care and optimize position change and monitor skin surgical follow up noted monitor protein levels and adjust will d/w daughter; ok for trach and peg and would want to take patient home position change medications/laboratory data/nursing notes/ICU care reviewed in detail note reviewed and edited care discussed with RN and RT ICU time spent >40 minutes Aaron Jefferson MD May 26, 2020 08:20
[2020-05-26] MEDS: Fluconazole 100mg tab ORAL SCH (08:21)
[2020-05-26] MEDS: Eliquis 2.5mg tablet ORAL SCH (08:21)
[2020-05-26] MEDS: Aspirin EC 81mg tab ORAL SCH (08:21)
--- NOTE | 2020-05-26 09:44 | NUR ---
RESPIRATORY NOTES PT placed on SBT - CPAP 5, PS 12 PT unable to generate adequate tidal volumes - <50 PT then placed back onto previous vent settings. RN Liudmila argueta. Will continue to monitor.
[2020-05-26] MEDS: Wixela 100/50 Inhaler - 60 dose INH SCH ×2 (10:00→22:00)
--- NOTE | 2020-05-26 10:00 | NUR ---
NURSE NOTES: Attempted to wean patient on CPAP 5 pressure support 12 and failed. Returned to AC mode.
[2020-05-26] MEDS ORDERED: NS 275ml ONE (10:13)
[2020-05-26] MEDS ORDERED: NS Irrig 1000ml ONE (10:13)
--- NOTE | 2020-05-26 11:00 | NUR ---
NURSE NOTES: Reported low grade fevers to Dr. Cameron. Covid and Sputum testing ordered.
--- NOTE | 2020-05-26 11:30 | Infectious Diseases Prog Note ---
Assessment/Plan Assessment/Plan antibiotics : fluconazole 9..20- A 1. COVID 19 pneumonia s/p ivermectin 9..20 2. renal failure 3. increased LFT 4. COPD 5. CHF 6. asthma 7. respiratory failure 8. leucocytosis resolved 9. pseudomonas pneumonia 10. fungal UTI s/p rx 11. fever P 1. d/c fluconazole 2. start meropenem 3. blood culture 4. UA and urine culture 5. sputum culture 6. will follow up cultures Subjective ROS Limited/Unobtainable: Yes Allergies: Coded Allergies: CIPROFLOXACIN (Verified Allergy, Unknown, 09/27/17) Objective Last 24 Hour Vital Signs Date Time Temp Pulse Resp B/P (MAP) Pulse Ox O2 Delivery O2 Flow Rate FiO2 05/26/20 10:00 98.8 107 15 101/63 (76) 100 05/26/20 09:44 100 05/26/20 09:00 105 14 96/51 (66) 100 05/26/20 08:00 113 05/26/20 08:00 Mechanical Ventilator Mechanical Ventilator 05/26/20 08:00 100.1 109 14 92/50 (64) 99 05/26/20 08:00 30 05/26/20 07:10 112 14 30 05/26/20 07:00 116 15 99/53 (68) 99 05/26/20 06:58 100.0 05/26/20 06:30 100.5 05/26/20 06:17 114 109/52 05/26/20 06:00 114 15 109/52 (71) 100 05/26/20 05:00 111 14 104/54 (71) 100 05/26/20 04:00 Mechanical Ventilator Mechanical Ventilator 05/26/20 04:00 111 05/26/20 04:00 99.3 112 16 102/53 (69) 100 05/26/20 04:00 30 05/26/20 03:48 110 15 30 05/26/20 03:00 111 14 97/59 (72) 99 05/26/20 02:00 111 14 102/54 (70) 99 05/26/20 01:00 111 15 103/55 (71) 100 05/26/20 00:00 109 05/26/20 00:00 99.2 111 17 103/55 (71) 100 05/26/20 00:00 Mechanical Ventilator Mechanical Ventilator 05/26/20 00:00 30 05/25/20 23:00 110 18 101/57 (72) 100 05/25/20 22:56 109 16 30 05/25/20 22:00 114 99/50 05/25/20 22:00 114 19 103/51 (68) 100 05/25/20 21:00 110 17 106/53 (70) 100 05/25/20 20:00 Mechanical Ventilator Mechanical Ventilator 05/25/20 20:00 99.8 109 15 97/53 (68) 100 05/25/20 20:00 30 05/25/20 20:00 109 05/25/20 19:36 107 15 30 05/25/20 19:00 108 15 99/55 (70) 100 05/25/20 18:00 113 16 103/53 (70) 100 05/25/20 17:18 98.8 05/25/20 17:00 113 20 101/58 (72) 100 05/25/20 16:00 Mechanical Ventilator Mechanical Ventilator 05/25/20 16:00 116 05/25/20 16:00 101.2 117 15 90/47 (61) 99 05/25/20 16:00 30 05/25/20 15:15 115 14 30 05/25/20 15:00 110 14 104/50 (68) 100 05/25/20 14:05 111 104/50 05/25/20 14:00 110 14 104/50 (68) 100 05/25/20 13:00 109 14 104/47 (66) 100 05/25/20 12:00 109 05/25/20 12:00 Mechanical Ventilator Mechanical Ventilator 05/25/20 12:00 30 05/25/20 12:00 99.9 111 14 102/53 (69) 100 Height (Feet): 5 Height (Inches): 3.00 Weight (Pounds): 160 HEENT: other - intubated Microbiology Date/Time Source Procedure Growth Status 05/25/20 16:37 Stool Clostridium difficile Toxin Assay - Final Complete 05/24/20 16:17 Urine,Clean Catch Urine Culture - Preliminary Yeast Species Resulted Laboratory Tests Test 05/26/20 00:00 05/26/20 04:15 05/26/20 05:23 POC Whole Blood Glucose Pending Pending White Blood Count 3.2 K/UL (4.8-10.8) L Red Blood Count 3.02 M/UL (4.20-5.40) L Hemoglobin 8.3 G/DL (12.0-16.0) L Hematocrit 25.2 % (37.0-47.0) L Mean Corpuscular Volume 83 FL (80-99) Mean Corpuscular Hemoglobin 27.5 PG (27.0-31.0) Mean Corpuscular Hemoglobin Concent 32.9 G/DL (32.0-36.0) Red Cell Distribution Width 17.4 % (11.6-14.8) H Platelet Count 135 K/UL (150-450) L Mean Platelet Volume 7.2 FL (6.5-10.1) Neutrophils (%) (Auto) % (45.0-75.0) Lymphocytes (%) (Auto) % (20.0-45.0) Monocytes (%) (Auto) % (1.0-10.0) Eosinophils (%) (Auto) % (0.0-3.0) Basophils (%) (Auto) % (0.0-2.0) Sodium Level 146 MMOL/L (136-145) H Potassium Level 4.1 MMOL/L (3.5-5.1) Chloride Level 111 MMOL/L (98-107) H Carbon Dioxide Level 26 MMOL/L (21-32) Anion Gap 9 mmol/L (5-15) Blood Urea Nitrogen 93 mg/dL (7-18) H Creatinine 2.2 MG/DL (0.55-1.30) H Estimat Glomerular Filtration Rate 25.9 mL/min (>60) Glucose Level 153 MG/DL (74-106) H Calcium Level 8.0 MG/DL (8.5-10.1) L Total Bilirubin 0.6 MG/DL (0.2-1.0) Aspartate Amino Transf (AST/SGOT) 82 U/L (15-37) H Alanine Aminotransferase (ALT/SGPT) 180 U/L (12-78) H Alkaline Phosphatase 297 U/L (46-116) H Total Protein 4.6 G/DL (6.4-8.2) L Albumin 1.0 G/DL (3.4-5.0) L Globulin 3.6 g/dL Albumin/Globulin Ratio 0.3 (1.0-2.7) L Current Medications Medications (Trade) Dose Ordered Sig/Ghislaine Route PRN Reason Start Time Stop Time Status Last Admin Dose Admin Acetaminophen (Tylenol) 500 mg Q4H PRN ORAL Mild Pain (Pain Scale 1-3) 05/11/20 20:00 06/02/20 19:59 05/24/20 23:42 Acetaminophen (Tylenol) 650 mg Q4H PRN NG Temp >100.5 05/25/20 16:15 06/24/20 16:14 05/26/20 06:28 Albuterol Sulfate (Proventil MDI) 2 puff Q4H PRN INH Shortness of Breath 05/11/20 20:00 08/01/20 11:59 05/13/20 10:30 Apixaban (Eliquis) 2.5 mg BID ORAL 05/12/20 09:00 08/01/20 17:59 05/26/20 08:21 Aspirin (Ecotrin) 81 mg DAILY ORAL 05/12/20 09:00 06/17/20 15:59 05/26/20 08:21 Dextrose (Dextrose 50%) 25 ml Q30M PRN IV Hypoglycemia 05/22/20 18:30 08/20/20 18:29 Dextrose (Dextrose 50%) 50 ml Q30M PRN IV Hypoglycemia 05/22/20 18:30 08/20/20 18:29 Diltiazem HCl (Cardizem Tab) 60 mg EVERY 8 HOURS ORAL 05/16/20 06:00 06/15/20 05:59 05/26/20 06:17 Fluconazole (Diflucan) 100 mg DAILY ORAL 05/20/20 13:00 05/27/20 12:59 05/26/20 08:21 Insulin Aspart (NovoLOG) Q6HR SUBQ 05/23/20 00:00 08/20/20 20:59 05/26/20 06:08 Pantoprazole (Protonix) 40 mg DAILY ORAL 05/12/20 09:00 06/02/20 15:59 05/25/20 08:42 Salmeterol Xinafoate/ Fluticasone (Advair 100/50 Diskus) 1 puffs BIDRT INH 05/11/20 22:00 08/09/20 21:59 05/16/20 09:02 Camilo Cameron MD May 26, 2020 11:30
--- NOTE | 2020-05-26 11:47 | Nephrology Progress Note ---
Assessment/Plan Plan Severe Prerenal Azotemia due to hypoperfusion. MOF due to Covid 19 MOF. Poor Prognosis. Subjective Subjective Confused Objective Objective Last 24 Hour Vital Signs Date Time Temp Pulse Resp B/P (MAP) Pulse Ox O2 Delivery O2 Flow Rate FiO2 05/26/20 10:00 98.8 107 15 101/63 (76) 100 05/26/20 09:44 100 05/26/20 09:00 105 14 96/51 (66) 100 05/26/20 08:00 113 05/26/20 08:00 Mechanical Ventilator Mechanical Ventilator 05/26/20 08:00 100.1 109 14 92/50 (64) 99 05/26/20 08:00 30 05/26/20 07:10 112 14 30 05/26/20 07:00 116 15 99/53 (68) 99 05/26/20 06:58 100.0 05/26/20 06:30 100.5 05/26/20 06:17 114 109/52 05/26/20 06:00 114 15 109/52 (71) 100 05/26/20 05:00 111 14 104/54 (71) 100 05/26/20 04:00 Mechanical Ventilator Mechanical Ventilator 05/26/20 04:00 111 05/26/20 04:00 99.3 112 16 102/53 (69) 100 05/26/20 04:00 30 05/26/20 03:48 110 15 30 05/26/20 03:00 111 14 97/59 (72) 99 05/26/20 02:00 111 14 102/54 (70) 99 05/26/20 01:00 111 15 103/55 (71) 100 05/26/20 00:00 109 05/26/20 00:00 99.2 111 17 103/55 (71) 100 05/26/20 00:00 Mechanical Ventilator Mechanical Ventilator 05/26/20 00:00 30 05/25/20 23:00 110 18 101/57 (72) 100 05/25/20 22:56 109 16 30 05/25/20 22:00 114 99/50 05/25/20 22:00 114 19 103/51 (68) 100 05/25/20 21:00 110 17 106/53 (70) 100 05/25/20 20:00 Mechanical Ventilator Mechanical Ventilator 05/25/20 20:00 99.8 109 15 97/53 (68) 100 05/25/20 20:00 30 05/25/20 20:00 109 05/25/20 19:36 107 15 30 05/25/20 19:00 108 15 99/55 (70) 100 05/25/20 18:00 113 16 103/53 (70) 100 05/25/20 17:18 98.8 05/25/20 17:00 113 20 101/58 (72) 100 05/25/20 16:00 Mechanical Ventilator Mechanical Ventilator 05/25/20 16:00 116 05/25/20 16:00 101.2 117 15 90/47 (61) 99 05/25/20 16:00 30 05/25/20 15:15 115 14 30 05/25/20 15:00 110 14 104/50 (68) 100 05/25/20 14:05 111 104/50 05/25/20 14:00 110 14 104/50 (68) 100 05/25/20 13:00 109 14 104/47 (66) 100 05/25/20 12:00 109 05/25/20 12:00 Mechanical Ventilator Mechanical Ventilator 05/25/20 12:00 30 05/25/20 12:00 99.9 111 14 102/53 (69) 100 Intake and Output 05/25/20 05/26/20 18:59 06:59 Intake Total 1000 ml 480 ml Output Total 765 ml 755 ml Balance 235 ml -275 ml Free Water 520 ml Tube Feeding 480 ml 480 ml Output Urine Total 765 ml 555 ml Stool Total 200 ml # Bowel Movements 1 1 Laboratory Tests 05/26/20 00:00: POC Whole Blood Glucose [Pending] 05/26/20 04:15: White Blood Count 3.2L, Red Blood Count 3.02L, Hemoglobin 8.3L, Hematocrit 25.2L , Mean Corpuscular Volume 83, Mean Corpuscular Hemoglobin 27.5, Mean Corpuscular Hemoglobin Concent 32.9, Red Cell Distribution Width 17.4H, Platelet Count 135L , Mean Platelet Volume 7.2, Neutrophils (%) (Auto) , Lymphocytes (%) (Auto) , Monocytes (%) (Auto) , Eosinophils (%) (Auto) , Basophils (%) (Auto) , Sodium Level 146H, Potassium Level 4.1, Chloride Level 111H, Carbon Dioxide Level 26, Anion Gap 9, Blood Urea Nitrogen 93H, Creatinine 2.2H, Estimat Glomerular Filt ration Rate 25.9, Glucose Level 153H, Calcium Level 8.0L, Total Bilirubin 0.6, Aspartate Amino Transf (AST/SGOT) 82H, Alanine Aminotransferase (ALT/SGPT) 180H, Alkaline Phosphatase 297H, Total Protein 4.6L, Albumin 1.0L, Globulin 3.6, Albumin/Globulin Ratio 0.3L 05/26/20 05:23: POC Whole Blood Glucose [Pending] Height (Feet): 5 Height (Inches): 3.00 Weight (Pounds): 160 Objective CV Tach +Irr Lungs B Ronchi Abd SNT. BS + E +3 edema Ruth Coyne MD May 26, 2020 11:47
[2020-05-26 12:37] LABS: APPEARANCE,URINE SLIGHTLY CLOUDY; BILIRUBIN, URINE NEGATIVE (NEGATIVE); COLOR,URINE PALE YELLOW; GLUCOSE, URINE (UA) NEGATIVE (NEGATIVE); KETONES,URINE NEGATIVE (NEGATIVE); LEUKOCYTE ESTERASE ,URINE 3+ (NEGATIVE); NITRITE,URINE NEGATIVE (NEGATIVE); PH,URINE 5 (4.5-8.0); PROTEIN,URINE 2+ (NEGATIVE); UROBILINOGEN,URINE NORMAL MG/DL (0.0-1.0)
--- NOTE | 2020-05-26 13:10 | Surgery Progress Note ---
Surgery Progress Note Subjective Additional Comments not weaning well will need trach scheduled for tomorrow Objective Last 24 Hour Vital Signs Date Time Temp Pulse Resp B/P (MAP) Pulse Ox O2 Delivery O2 Flow Rate FiO2 05/26/20 10:00 98.8 107 15 101/63 (76) 100 05/26/20 09:44 100 05/26/20 09:00 105 14 96/51 (66) 100 05/26/20 08:00 113 05/26/20 08:00 Mechanical Ventilator Mechanical Ventilator 05/26/20 08:00 100.1 109 14 92/50 (64) 99 05/26/20 08:00 30 05/26/20 07:10 112 14 30 05/26/20 07:00 116 15 99/53 (68) 99 05/26/20 06:58 100.0 05/26/20 06:30 100.5 05/26/20 06:17 114 109/52 05/26/20 06:00 114 15 109/52 (71) 100 05/26/20 05:00 111 14 104/54 (71) 100 05/26/20 04:00 Mechanical Ventilator Mechanical Ventilator 05/26/20 04:00 111 05/26/20 04:00 99.3 112 16 102/53 (69) 100 05/26/20 04:00 30 05/26/20 03:48 110 15 30 05/26/20 03:00 111 14 97/59 (72) 99 05/26/20 02:00 111 14 102/54 (70) 99 05/26/20 01:00 111 15 103/55 (71) 100 05/26/20 00:00 109 05/26/20 00:00 99.2 111 17 103/55 (71) 100 05/26/20 00:00 Mechanical Ventilator Mechanical Ventilator 05/26/20 00:00 30 05/25/20 23:00 110 18 101/57 (72) 100 05/25/20 22:56 109 16 30 05/25/20 22:00 114 99/50 05/25/20 22:00 114 19 103/51 (68) 100 05/25/20 21:00 110 17 106/53 (70) 100 05/25/20 20:00 Mechanical Ventilator Mechanical Ventilator 05/25/20 20:00 99.8 109 15 97/53 (68) 100 05/25/20 20:00 30 05/25/20 20:00 109 05/25/20 19:36 107 15 30 05/25/20 19:00 108 15 99/55 (70) 100 05/25/20 18:00 113 16 103/53 (70) 100 05/25/20 17:18 98.8 05/25/20 17:00 113 20 101/58 (72) 100 05/25/20 16:00 Mechanical Ventilator Mechanical Ventilator 05/25/20 16:00 116 05/25/20 16:00 101.2 117 15 90/47 (61) 99 05/25/20 16:00 30 05/25/20 15:15 115 14 30 05/25/20 15:00 110 14 104/50 (68) 100 05/25/20 14:05 111 104/50 05/25/20 14:00 110 14 104/50 (68) 100 I&O Intake and Output 0 05/25/20 05/26/20 18:59 06:59 Intake Total 1000 ml 480 ml Output Total 765 ml 755 ml Balance 235 ml -275 ml Free Water 520 ml Tube Feeding 480 ml 480 ml Output Urine Total 765 ml 555 ml Stool Total 200 ml # Bowel Movements 1 1 Dressing: other Wound: other Cardiovascular: RSR Respiratory: decreased breath sounds Abdomen: soft, non-tender, present bowel sounds Extremities: no tenderness, no cyanosis Laboratory Tests Test 05/26/20 00:00 05/26/20 04:15 05/26/20 05:23 05/26/20 12:00 POC Whole Blood Glucose Pending Pending White Blood Count 3.2 K/UL (4.8-10.8) L Red Blood Count 3.02 M/UL (4.20-5.40) L Hemoglobin 8.3 G/DL (12.0-16.0) L Hematocrit 25.2 % (37.0-47.0) L Mean Corpuscular Volume 83 FL (80-99) Mean Corpuscular Hemoglobin 27.5 PG (27.0-31.0) Mean Corpuscular Hemoglobin Concent 32.9 G/DL (32.0-36.0) Red Cell Distribution Width 17.4 % (11.6-14.8) H Platelet Count 135 K/UL (150-450) L Mean Platelet Volume 7.2 FL (6.5-10.1) Neutrophils (%) (Auto) % (45.0-75.0) Lymphocytes (%) (Auto) % (20.0-45.0) Monocytes (%) (Auto) % (1.0-10.0) Eosinophils (%) (Auto) % (0.0-3.0) Basophils (%) (Auto) % (0.0-2.0) Sodium Level 146 MMOL/L (136-145) H Potassium Level 4.1 MMOL/L (3.5-5.1) Chloride Level 111 MMOL/L (98-107) H Carbon Dioxide Level 26 MMOL/L (21-32) Anion Gap 9 mmol/L (5-15) Blood Urea Nitrogen 93 mg/dL (7-18) H Creatinine 2.2 MG/DL (0.55-1.30) H Estimat Glomerular Filtration Rate 25.9 mL/min (>60) Glucose Level 153 MG/DL (74-106) H Calcium Level 8.0 MG/DL (8.5-10.1) L Total Bilirubin 0.6 MG/DL (0.2-1.0) Aspartate Amino Transf (AST/SGOT) 82 U/L (15-37) H Alanine Aminotransferase (ALT/SGPT) 180 U/L (12-78) H Alkaline Phosphatase 297 U/L (46-116) H Total Protein 4.6 G/DL (6.4-8.2) L Albumin 1.0 G/DL (3.4-5.0) L Globulin 3.6 g/dL Albumin/Globulin Ratio 0.3 (1.0-2.7) L Urine Color Pale yellow Urine Appearance Slightly cloudy Urine pH 5 (4.5-8.0) Urine Specific [place] 1.010 (1.005-1.035) Urine Protein 2+ (NEGATIVE) H Urine Glucose (UA) Negative (NEGATIVE) Urine Ketones Negative (NEGATIVE) Urine Blood 3+ (NEGATIVE) H Urine Nitrite Negative (NEGATIVE) Urine Bilirubin Negative (NEGATIVE) Urine Urobilinogen Normal MG/DL (0.0-1.0) Urine Leukocyte Esterase 3+ (NEGATIVE) H Urine RBC 5-10 /HPF (0 - 2) H Urine WBC 5-10 /HPF (0 - 2) H Urine Squamous Epithelial Cells Few /LPF (NONE/OCC) Urine Amorphous Sediment Moderate /LPF (NONE) H Urine Bacteria Few /HPF (NONE) Urine Yeast Few /HPF (NONE) H Test 05/26/20 12:09 POC Whole Blood Glucose 139 MG/DL (74-106) H Plan Problems: (1) Elevated troponin (2) Atrial fibrillation with RVR (3) COVID-19 Assessment & Plan: ++ as per pulm and ID trach DAILY ESTIMATED NEEDS: Needs based on Critical Care, ARF/ 56kg abw 22-28 kcals/kg 1189-8927 total kcals 0.8-1.5 (increase w/ renal improvement) g protein/kg 45-84 g total protein 25-30 mL/kg 6608-1496 total fluid mLs NUTRITION DIAGNOSIS: * Altered nutrition related lab values r/t clinical status as evidenced by elev BUN(82), creat(3.8) trending up, critical ABG (low pH, elev CO2)-> now improved. * Swallowing difficulty R/T respiratory status as evidenced by s/p oral intubation, on OGT feeds. 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: [employer]INTENA[employer]CE JOURNEY[employer] eval post extubation ENTERAL NUTRITION RECOMMENDATIONS: Nepro @ 35ml/hr x 24 hrs to provide 840ml, 1512kcal, 68g prot, 610ml free water * W/ worsening renal fxn, rec to continue Nepro * As tolerated, increase goal rate to 35ml/hr x 24 hrs to meet 100% est kcal/prot needs ADDITIONAL RECOMMENDATIONS: 1) Calibrated bedscale wt 2) Monitor renal fxn and lytes, need to continue Nepro Creat trending up 3) Rec niss w/ solumedrol (4) Community acquired pneumonia (5) COPD (chronic obstructive pulmonary disease) (6) Pulmonary fibrosis (7) Asthma (8) History of asthma (9) NSTEMI (non-ST elevated myocardial infarction) (10) Moderate to severe pulmonary hypertension (11) Asthma exacerbation (12) Abnormal LFTs Assessment & Plan: afebrile, HD stable labs noted lft's elevated US reviewed exam benign gb likely reactive from underlying pathology unlikely cholecystitis clinically fluid overload trend labs will monitor exam clinically covid + prognosis guarded cxr reviewed on abx worsening plan repeat US - noted cannot get hida given covid labs noted worsening leukocytosis Gallbladder demonstrates wall thickening and wall edema, gallbladder wall measuring up to 6 mm thick. There are gallstones. Sonographic Escoto's sign is negative. Common bile duct measures 3 mm in diameter. No intrahepatic biliary ductal dilatation. Liver demonstrates normal echogenicity, no focal abnormality. Portal vein and hepatic veins are patent. Pancreas is unremarkable. Spleen is unremarkable. Left kidney measures 9.2 cm in length. Right kidney measures 9.9 cm length. Both kidneys demonstrate normal echogenicity. There is no hyd ronephrosis. Small cyst is seen in the right kidney. . Abdominal aorta was not imaged . There is trace ascites. There is a small right pleural effusion incidentally noted Impression: Small right pleural effusion. Trace ascites Cholelithiasis. Gallbladder wall thickening may be related to hemodynamic factors causing the pleural fluid and ascites, but could also indicate acute cholecystitis. Consider nuclear medicine hepatobiliary scan if there is high clinical suspicion. Negative for dilated bile ducts Small right renal cyst incidentally noted (13) Acute respiratory failure with hypoxia Quentin Sanchez May 26, 2020 13:10
--- NOTE | 2020-05-26 13:11 | Pre-Procedure Note/Attestation ---
Pre-Procedure Note/Attestation Complete Prior to Procedure Procedure Narrative: tracheostomy Indications for Procedure Pre-Operative Diagnosis: respiratory insufficiency covid + Attestation I attest that I discussed the nature of the procedure; its benefits; risks and complications; and alternatives (and the risks and benefits of such alternatives), prior to the procedure, with the patient (or the patient's legal data entry representative). I attest that, if there was a reasonable possibility of needing a blood transfusion, the patient (or the patient's legal data entry representative) was given the [facility] standardized written summary, pursuant to the [place] Blood Safety Act ([place] Health and Safety Code # 1645, as amended). I attest that I re-evaluated the patient just prior to the surgery and that there has been no change in the patient's H&P, except as documented below: Quentin Sanchez May 26, 2020 13:11
--- NOTE | 2020-05-26 14:00 | NUR ---
NURSE NOTES: Patient stable. No s/sx of pain or distress resting comfortably.
[2020-05-26] MEDS: Meropenem 500 MG in NS 55 ML IVPB SCH (14:03)
--- NOTE | 2020-05-26 14:49 | Anethesia Preoperative Eval ---
Anesthesia Pre-op PMH/ROS General Date of Evaluation: May 26, 2020 Time of Evaluation: 14:44 Anesthesiologist: Stephanie ASA Score: ASA 4 Mallampati Score Class I : Soft palate, uvula, fauces, pillars visible Class II: Soft palate, uvula, fauces visible Class III: Soft palate, base of uvula visible Class IV: Only hard plate visible Mallampati Classification: Class III Surgeon: Lisa Diagnosis: Respiratory failure Surgical Procedure: Tracheostomy Anesthesia History: none Social History: smoking - h/o Family History: no anesthesia problems Allergies: Coded Allergies: CIPROFLOXACIN (Verified Allergy, Unknown, 09/27/17) Medications: see eMAR Patient NPO?: Yes Past Medical History Cardiovascular: Reports: HTN, arrhythmia - A fib, other - CHF; Denies: CAD, DE, valve dz Pulmonary: Reports: COPD, other - pulmonary fibrosis; Denies: asthma, AYUSH Gastrointestinal/Genitourinary: Reports: GERD, CRI; Denies: ESRD, other Neurologic/Psychiatric: Reports: depression/anxiety, other - sedated; Denies: dementia, CVA, TIA Endocrine: Reports: DM, hypothyroidism; Denies: steroids, other HEENT: Denies: cataract (L), cataract (R), glaucoma, [place] (L[place] (R), other Hematology/Immune: Reports: anemia - of chronic d-s; Denies: DVT, bleeding disorder, other Musculoskeletal/Integumentary: Reports: OA Other: obesity PMH Narrative: as above PSxH Narrative: see H&P Anesthesia Pre-op Phys. Exam Physician Exam Last Vital Signs Date Time Temp Pulse Resp B/P (MAP) Pulse Ox O2 Delivery O2 Flow Rate FiO2 05/26/20 14:03 112 109/54 05/26/20 13:00 16 100 05/26/20 12:00 Mechanical Ventilator Mechanical Ventilator 05/26/20 12:00 30 05/26/20 10:00 98.8 Constitutional: NAD Neurologic: other - unable to obtaine Cardiovascular: RRR Respiratory: other - diminished breath sounds diffuse wheezing Gastrointestinal: other - obesity Airway Exam Mallampati Score: Class III - oraly intubated MO: limited Neck: stiff ROM: limited Teeth: missing Dentures: no upper, no lower Anesthesia Pre-op A/P Labs Hematology Test 05/26/20 04:15 White Blood Count 3.2 K/UL (4.8-10.8) L Red Blood Count 3.02 M/UL (4.20-5.40) L Hemoglobin 8.3 G/DL (12.0-16.0) L Hematocrit 25.2 % (37.0-47.0) L Mean Corpuscular Volume 83 FL (80-99) Mean Corpuscular Hemoglobin 27.5 PG (27.0-31.0) Mean Corpuscular Hemoglobin Concent 32.9 G/DL (32.0-36.0) Red Cell Distribution Width 17.4 % (11.6-14.8) H Platelet Count 135 K/UL (150-450) L Mean Platelet Volume 7.2 FL (6.5-10.1) Neutrophils (%) (Auto) % (45.0-75.0) Lymphocytes (%) (Auto) % (20.0-45.0) Monocytes (%) (Auto) % (1.0-10.0) Eosinophils (%) (Auto) % (0.0-3.0) Basophils (%) (Auto) % (0.0-2.0) Chemistry Test 05/26/20 00:00 05/26/20 04:15 05/26/20 05:23 05/26/20 12:09 POC Whole Blood Glucose Pending Pending 139 MG/DL (74-106) H Sodium Level 146 MMOL/L (136-145) H Potassium Level 4.1 MMOL/L (3.5-5.1) Chloride Level 111 MMOL/L (98-107) H Carbon Dioxide Level 26 MMOL/L (21-32) Anion Gap 9 mmol/L (5-15) Blood Urea Nitrogen 93 mg/dL (7-18) H Creatinine 2.2 MG/DL (0.55-1.30) H Estimat Glomerular Filtration Rate 25.9 mL/min (>60) Glucose Level 153 MG/DL (74-106) H Calcium Level 8.0 MG/DL (8.5-10.1) L Total Bilirubin 0.6 MG/DL (0.2-1.0) Aspartate Amino Transf (AST/SGOT) 82 U/L (15-37) H Alanine Aminotransferase (ALT/SGPT) 180 U/L (12-78) H Alkaline Phosphatase 297 U/L (46-116) H Total Protein 4.6 G/DL (6.4-8.2) L Albumin 1.0 G/DL (3.4-5.0) L Globulin 3.6 g/dL Albumin/Globulin Ratio 0.3 (1.0-2.7) L Risk Assessment & Plan Assessment: ASA 4 Plan: GA with ETT Status Change Before Surgery: No Pre-Antibiotics Drug: as scheduled Stone Brown MD May 26, 2020 14:49
--- NOTE | 2020-05-26 16:00 | NUR ---
NURSE NOTES: Patient stable. Cleaned at this time. Fever at this time. Again started cooling measures. Oral care perfomed but could not perform well due to patient resistance. Patient pulling on RN at this time due to her being upset.
--- NOTE | 2020-05-26 17:35 | NUR ---
NURSE NOTES: Daughter called twice to obtain consent for tracheostomy but call went straight to voicemail. Message left stating to call back.
--- NOTE | 2020-05-26 17:37 | General Progress Note ---
Subjective ROS Limited/Unobtainable: No Constitutional: Reports: malaise, weakness HEENT: Reports: no symptoms Cardiovascular: Reports: no symptoms Respiratory: Reports: shortness of breath, sputum Gastrointestinal/Abdominal: Reports: difficulty swallowing Genitourinary: Reports: no symptoms Neurologic/Psychiatric: Reports: pre-existing deficit Endocrine: Reports: no symptoms Hematologic/Lymphatic: Reports: anemia Allergies: Coded Allergies: CIPROFLOXACIN (Verified Allergy, Unknown, 09/27/17) All Systems: reviewed and negative except above Subjective no events, stable on the vent. not tolerating weaning. +diarrhea. no distress appears comfortable. failed wean. Objective Last 24 Hour Vital Signs Date Time Temp Pulse Resp B/P (MAP) Pulse Ox O2 Delivery O2 Flow Rate FiO2 05/26/20 16:00 Mechanical Ventilator Mechanical Ventilator 05/26/20 16:00 100.4 119 16 114/49 (70) 100 05/26/20 16:00 30 05/26/20 15:10 115 14 30 05/26/20 15:00 113 15 97/53 (68) 100 05/26/20 14:03 112 109/54 05/26/20 14:00 109 14 109/54 (72) 100 05/26/20 13:00 109 16 106/54 (71) 100 05/26/20 12:00 Mechanical Ventilator Mechanical Ventilator 05/26/20 12:00 107 05/26/20 12:00 30 05/26/20 12:00 108 14 101/55 (70) 99 05/26/20 11:00 107 14 104/55 (71) 99 05/26/20 10:40 107 15 30 05/26/20 10:00 98.8 107 15 101/63 (76) 100 05/26/20 09:44 100 05/26/20 09:00 105 14 96/51 (66) 100 05/26/20 08:00 113 05/26/20 08:00 Mechanical Ventilator Mechanical Ventilator 05/26/20 08:00 100.1 109 14 92/50 (64) 99 05/26/20 08:00 30 05/26/20 07:10 112 14 30 05/26/20 07:00 116 15 99/53 (68) 99 05/26/20 06:58 100.0 05/26/20 06:30 100.5 9/29/20 06:17 114 109/52 05/26/20 06:00 114 15 109/52 (71) 100 05/26/20 05:00 111 14 104/54 (71) 100 05/26/20 04:00 Mechanical Ventilator Mechanical Ventilator 05/26/20 04:00 111 05/26/20 04:00 99.3 112 16 102/53 (69) 100 05/26/20 04:00 30 05/26/20 03:48 110 15 30 05/26/20 03:00 111 14 97/59 (72) 99 05/26/20 02:00 111 14 102/54 (70) 99 05/26/20 01:00 111 15 103/55 (71) 100 05/26/20 00:00 109 05/26/20 00:00 99.2 111 17 103/55 (71) 100 05/26/20 00:00 Mechanical Ventilator Mechanical Ventilator 05/26/20 00:00 30 05/25/20 23:00 110 18 101/57 (72) 100 05/25/20 22:56 109 16 30 05/25/20 22:00 114 99/50 05/25/20 22:00 114 19 103/51 (68) 100 05/25/20 21:00 110 17 106/53 (70) 100 05/25/20 20:00 Mechanical Ventilator Mechanical Ventilator 05/25/20 20:00 99.8 109 15 97/53 (68) 100 05/25/20 20:00 30 05/25/20 20:00 109 05/25/20 19:36 107 15 30 05/25/20 19:00 108 15 99/55 (70) 100 05/25/20 18:00 113 16 103/53 (70) 100 Intake and Output 05/25/20 05/26/20 18:59 06:59 Intake Total 1000 ml 480 ml Output Total 765 ml 755 ml Balance 235 ml -275 ml Free Water 520 ml Tube Feeding 480 ml 480 ml Output Urine Total 765 ml 555 ml Stool Total 200 ml # Bowel Movements 1 1 Laboratory Tests 05/26/20 00:00: POC Whole Blood Glucose [Pending] 05/26/20 04:15: White Blood Count 3.2L, Red Blood Count 3.02L, Hemoglobin 8.3L, Hematocrit 25.2L , Mean Corpuscular Volume 83, Mean Corpuscular Hemoglobin 27.5, Mean Corpuscular Hemoglobin Concent 32.9, Red Cell Distribution Width 17.4H, Platelet Count 135L , Mean Platelet Volume 7.2, Neutrophils (%) (Auto) , Lymphocytes (%) (Auto) , Monocytes (%) (Auto) , Eosinophils (%) (Auto) , Basophils (%) (Auto) , Sodium Level 146H, Potassium Level 4.1, Chloride Level 111H, Carbon Dioxide Level 26, Anion Gap 9, Blood Urea Nitrogen 93H, Creatinine 2.2H, Estimat Glomerular Filtration Rate 25.9, Glucose Level 153H, Calcium Level 8.0L, Total Bilirubin 0.6, Aspartate Amino Transf (AST/SGOT) 82H, Alanine Aminotransferase (ALT/SGPT) 180H, Alkaline Phosphatase 297H, Total Protein 4.6L, Albumin 1.0L, Globulin 3.6, Albumin/Globulin Ratio 0.3L 05/26/20 05:23: POC Whole Blood Glucose [Pending] 05/26/20 12:00: Urine Color Pale yellow, Urine Appearance Slightly cloudy, Urine pH 5, Urine Specific [place] 1.010, Urine Protein 2+H, Urine Glucose (UA) Negative, Urine Ketones Negative, Urine Blood 3+H, Urine Nitrite Negative, Urine Bilirubin Negative, Urine Urobilinogen Normal, Urine Leukocyte Esterase 3+H, Urine RBC 5- 10H, Urine WBC 5-10H, Urine Squamous Epithelial Cells Few, Urine Amorphous Sediment ModerateH, Urine Bacteria Few, Urine Yeast FewH 05/26/20 12:09: POC Whole Blood Glucose 139H Height (Feet): 5 Height (Inches): 3.00 Weight (Pounds): 160 Objective General Appearance: WD/WN, no apparent distress, alert. 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, alert, oriented x 3, responsive Skin: normal pigmentation Lymphatic: normal anterior cervical (L), normal anterior cervical (R) Assessment/Plan Problem List: (1) Pulmonary fibrosis ICD Codes: J84.10 - Pulmonary fibrosis, unspecified SNOMED: 02062970 (2) History of asthma ICD Codes: Z87.09 - Personal history of other diseases of the respiratory system SNOMED: 595591328 (3) Asthma ICD Codes: J45.909 - Unspecified asthma, uncomplicated SNOMED: 305395948 (4) NSTEMI (non-ST elevated myocardial infarction) ICD Codes: I21.4 - Non-ST elevation (NSTEMI) myocardial infarction SNOMED: 889621133 (5) Elevated troponin ICD Codes: R79.89 - Other specified abnormal findings of blood chemistry SNOMED: 608338552, 184907603, 969962038 (6) COPD (chronic obstructive pulmonary disease) ICD Codes: J44.9 - Chronic obstructive pulmonary disease, unspecified SNOMED: 50308889 (7) Atrial fibrillation with RVR ICD Codes: I48.91 - Unspecified atrial fibrillation SNOMED: 258178347701578 (8) Community acquired pneumonia ICD Codes: J18.9 - Pneumonia, unspecified organism SNOMED: 076688209 Status: stable Assessment/Plan: cont iv abx fluconazole for fungal uti water flushes via ngt monitor renal fxn/lytes ngt feeds wean vent as able BP rx keep dry dvt/stress ulcer prophylaxis skin care added imodium check stool culture turn q2 critical and guarded Bradford Linn MD May 26, 2020 17:37
[2020-05-26] MEDS: Acetaminophen 500mg (ES) tab ORAL PRN (18:07)
--- NOTE | 2020-05-26 19:20 | NUR ---
NURSE HAND-OFF REPORT: Latest Vital Signs: Temperature 101.2 , Pulse 118 , B/P 114 /49 , Respiratory Rate 15 , O2 SAT 100 , Mechanical Ventilator, O2 Flow Rate 4.0 . Vital Sign Comment: STABLE EKG Rhythm: Sinus Tachycardia Rhythm change?: N MD Notified?: Response: Latest [place] Fall Score: 50 Fall Risk: High Risk Safety Measures: Call light Within Reach, Bed Alarm Zone 1, Side Rails Side Rails x3, Bed position Low and Locked. Fall Precautions: Door Sign Report given to Hailee SALGADO. Endorsed plan for trach tomorrow and PEG on . Daughter needs to sign consent for Trach. Informed that she was called twice and message left.
--- NOTE | 2020-05-26 19:20 | NUR ---
NURSE NOTES: Received patient from DAMIAN Barrera. Will continue plan of care.
--- NOTE | 2020-05-26 20:00 | NUR ---
NURSE NOTES: Patient is sleeping but awakens upon entering the room. She is intubated; ETT 7.5 @ 20cm to the lipline to vent with settings of AC:14, TV:500, FiO2:30%, PEEP:5. Right nare NGT running Glucerna 1.5 @ 40ml/hr. [place] catheter and rectal tube in place and draining. Right hang 20g IV running TKO. AUTOMATION ANALYST restraints in place for safety and prevent from pulling on lines; ROM and skin assessed. Safety measures in place; bed low, locked and alarm is on. Will continue plan of care.
--- NOTE | 2020-05-26 20:32 | General Progress Note ---
Subjective Allergies: Coded Allergies: CIPROFLOXACIN (Verified Allergy, Unknown, 09/27/17) Subjective Above noted d/w medical staff services manager tolerating TF liq stool Objective Last 24 Hour Vital Signs Date Time Temp Pulse Resp B/P (MAP) Pulse Ox O2 Delivery O2 Flow Rate FiO2 05/26/20 20:00 30 05/26/20 20:00 Mechanical Ventilator Mechanical Ventilator 05/26/20 19:00 99.0 117 15 110/56 (74) 100 05/26/20 19:00 99.0 05/26/20 18:41 118 15 30 05/26/20 18:00 101.2 119 16 105/60 (75) 100 05/26/20 17:00 119 16 101/59 (73) 100 05/26/20 16:00 Mechanical Ventilator Mechanical Ventilator 05/26/20 16:00 116 05/26/20 16:00 100.4 119 16 114/49 (70) 100 05/26/20 16:00 30 05/26/20 15:10 115 14 30 05/26/20 15:00 113 15 97/53 (68) 100 05/26/20 14:03 112 109/54 05/26/20 14:00 109 14 109/54 (72) 100 05/26/20 13:00 109 16 106/54 (71) 100 05/26/20 12:00 Mechanical Ventilator Mechanical Ventilator 05/26/20 12:00 107 05/26/20 12:00 30 05/26/20 12:00 108 14 101/55 (70) 99 05/26/20 11:00 107 14 104/55 (71) 99 05/26/20 10:40 107 15 30 05/26/20 10:00 98.8 107 15 101/63 (76) 100 05/26/20 09:44 100 05/26/20 09:00 105 14 96/51 (66) 100 05/26/20 08:00 113 05/26/20 08:00 Mechanical Ventilator Mechanical Ventilator 05/26/20 08:00 100.1 109 14 92/50 (64) 99 05/26/20 08:00 30 05/26/20 07:10 112 14 30 05/26/20 07:00 116 15 99/53 (68) 99 05/26/20 06:58 100.0 05/26/20 06:30 100.5 05/26/20 06:17 114 109/52 05/26/20 06:00 114 15 109/52 (71) 100 05/26/20 05:00 111 14 104/54 (71) 100 05/26/20 04:00 Mechanical Ventilator Mechanical Ventilator 05/26/20 04:00 111 05/26/20 04:00 99.3 112 16 102/53 (69) 100 05/26/20 04:00 30 05/26/20 03:48 110 15 30 05/26/20 03:00 111 14 97/59 (72) 99 05/26/20 02:00 111 14 102/54 (70) 99 05/26/20 01:00 111 15 103/55 (71) 100 05/26/20 00:00 109 05/26/20 00:00 99.2 111 17 103/55 (71) 100 05/26/20 00:00 Mechanical Ventilator Mechanical Ventilator 05/26/20 00:00 30 05/25/20 23:00 110 18 101/57 (72) 100 05/25/20 22:56 109 16 30 05/25/20 22:00 114 99/50 05/25/20 22:00 114 19 103/51 (68) 100 05/25/20 21:00 110 17 106/53 (70) 100 Intake and Output 05/25/20 05/26/20 19:00 07:00 Intake Total 1000 ml 480 ml Output Total 790 ml 730 ml Balance 210 ml -250 ml Free Water 520 ml Tube Feeding 480 ml 480 ml Output Urine Total 790 ml 530 ml Stool Total 200 ml # Bowel Movements 1 1 Laboratory Tests 05/26/20 00:00: POC Whole Blood Glucose [Pending] 05/26/20 04:15: White Blood Count 3.2L, Red Blood Count 3.02L, Hemoglobin 8.3L, Hematocrit 25.2L , Mean Corpuscular Volume 83, Mean Corpuscular Hemoglobin 27.5, Mean Corpuscular Hemoglobin Concent 32.9, Red Cell Distribution Width 17.4H, Platelet Count 135L , Mean Platelet Volume 7.2, Neutrophils (%) (Auto) , Lymphocytes (%) (Auto) , Monocytes (%) (Auto) , Eosinophils (%) (Auto) , Basophils (%) (Auto) , Sodium Level 146H, Potassium Level 4.1, Chloride Level 111H, Carbon Dioxide Level 26, Anion Gap 9, Blood Urea Nitrogen 93H, Creatinine 2.2H, Estimat Glomerular Filtration Rate 25.9, Glucose Level 153H, Calcium Level 8.0L, Total Bilirubin 0.6, Aspartate Amino Transf (AST/SGOT) 82H, Alanine Aminotransferase (ALT/SGPT) 180H, Alkaline Phosphatase 297H, Total Protein 4.6L, Albumin 1.0L, Globulin 3.6, Albumin/Globulin Ratio 0.3L 05/26/20 05:23: POC Whole Blood Glucose [Pending] 05/26/20 12:00: Urine Color Pale yellow, Urine Appearance Slightly cloudy, Urine pH 5, Urine Specific [place] 1.010, Urine Protein 2+H, Urine Glucose (UA) Negative, Urine Ketones Negative, Urine Blood 3+H, Urine Nitrite Negative, Urine Bilirubin Negative, Urine Urobilinogen Normal, Urine Leukocyte Esterase 3+H, Urine RBC 5- 10H, Urine WBC 5-10H, Urine Squamous Epithelial Cells Few, Urine Amorphous Sediment ModerateH, Urine Bacteria Few, Urine Yeast FewH 05/26/20 12:09: POC Whole Blood Glucose 139H 05/26/20 17:53: POC Whole Blood Glucose 137H Height (Feet): 5 Height (Inches): 3.00 Weight (Pounds): 160 Objective Elderly AA woman seen in ICU exam limited due to COVID isolation comfortable appearing NCAT (+) Feeding tube - tolerating well (+) intubated - on ventilator abd non distended Assessment/Plan Status: stable Assessment/Plan: Assessment - Transaminitis, likely due to COVID-19 --Improving - Gallstones - Resp failure - Dysphagia - OGT - CHF - Pulm HTN - Arrhythmia - Leukocytosis - Renal failure Recommendations - monitor LFT - Continue TF - Abx - ICU care - PEG at later date once stabilized - will consider repeat abd ultrasound Justine Torres MD May 26, 2020 20:32
--- NOTE | 2020-05-26 22:00 | NUR ---
NURSE NOTES: Patient daughter was here, informed her the plan of trach placement tomorrow. Spoke with patient on behalf of daughter regarding trach but patient withdraws to discussion. Also placed phone in room for daughter to speak to her but patient has a flat affect and is unresponsive to discussion. Daughter is refusing to sign consent at this moment and would like to discuss with other family members first. She will call back and possibly come back around 10am to next day.
--- NOTE | 2020-05-26 22:40 | Cardiology Progress Note ---
Subjective DATE OF SERVICE: May 26, 2020 Condition remains critical; [facility] - failed wean, and trach now planned. Monitor: AFib with episodes of RVR and nonsustained VTach. Lactic acidosis resolved BP remains tenuous, as well as acid-base status. Sodium levels have normalized Episodes of tachyarrhythmias persist, and BP is increasingly tenuous and low. CXR (05/23) reviewed: patchy left infiltrates with small pl eff'n. ICU logs and cardiology care plan reviewed and updated Objective Last 24 Hour Vital Signs Date Time Temp Pulse Resp B/P (MAP) Pulse Ox O2 Delivery O2 Flow Rate FiO2 05/26/20 21:00 117 15 105/50 (68) 100 05/26/20 20:00 30 05/26/20 20:00 99.2 118 18 106/54 (71) 99 05/26/20 20:00 Mechanical Ventilator Mechanical Ventilator 05/26/20 19:00 99.0 117 15 110/56 (74) 100 05/26/20 19:00 99.0 05/26/20 18:41 118 15 30 05/26/20 18:00 101.2 119 16 105/60 (75) 100 05/26/20 17:00 119 16 101/59 (73) 100 05/26/20 16:00 Mechanical Ventilator Mechanical Ventilator 05/26/20 16:00 116 05/26/20 16:00 100.4 119 16 114/49 (70) 100 05/26/20 16:00 30 05/26/20 15:10 115 14 30 05/26/20 15:00 113 15 97/53 (68) 100 05/26/20 14:03 112 109/54 05/26/20 14:00 109 14 109/54 (72) 100 05/26/20 13:00 109 16 106/54 (71) 100 05/26/20 12:00 Mechanical Ventilator Mechanical Ventilator 05/26/20 12:00 107 05/26/20 12:00 30 05/26/20 12:00 108 14 101/55 (70) 99 05/26/20 11:00 107 14 104/55 (71) 99 05/26/20 10:40 107 15 30 05/26/20 10:00 98.8 107 15 101/63 (76) 100 05/26/20 09:44 100 05/26/20 09:00 105 14 96/51 (66) 100 05/26/20 08:00 113 05/26/20 08:00 Mechanical Ventilator Mechanical Ventilator 05/26/20 08:00 100.1 109 14 92/50 (64) 99 05/26/20 08:00 30 05/26/20 07:10 112 14 30 05/26/20 07:00 116 15 99/53 (68) 99 05/26/20 06:58 100.0 05/26/20 06:30 100.5 05/26/20 06:17 114 109/52 05/26/20 06:00 114 15 109/52 (71) 100 05/26/20 05:00 111 14 104/54 (71) 100 05/26/20 04:00 Mechanical Ventilator Mechanical Ventilator 05/26/20 04:00 111 05/26/20 04:00 99.3 112 16 102/53 (69) 100 05/26/20 04:00 30 05/26/20 03:48 110 15 30 05/26/20 03:00 111 14 97/59 (72) 99 05/26/20 02:00 111 14 102/54 (70) 99 05/26/20 01:00 111 15 103/55 (71) 100 05/26/20 00:00 109 05/26/20 00:00 99.2 111 17 103/55 (71) 100 05/26/20 00:00 Mechanical Ventilator Mechanical Ventilator 05/26/20 00:00 30 05/25/20 23:00 110 18 101/57 (72) 100 05/25/20 22:56 109 16 30 ROS: unchanged from my eval of 05/03/20 HEENT: Orally intubated, Mechanically Ventilated, Thin secretions ET Tube RHYTHM: Afib LUNGS: no accessory muscle use, expiratory wheezing, diminished breath sounds CARDIAC: normal S1 and S2, no murmur, irregularly irregular ABDOMEN: normal bowel sounds, non tender, soft, no organomegaly EXTREMITIES: no calf tenderness, +1 edema Laboratory Tests Test 05/26/20 00:00 05/26/20 04:15 05/26/20 05:23 05/26/20 12:00 POC Whole Blood Glucose Pending Pending White Blood Count 3.2 K/UL (4.8-10.8) L Red Blood Count 3.02 M/UL (4.20-5.40) L Hemoglobin 8.3 G/DL (12.0-16.0) L Hematocrit 25.2 % (37.0-47.0) L Mean Corpuscular Volume 83 FL (80-99) Mean Corpuscular Hemoglobin 27.5 PG (27.0-31.0) Mean Corpuscular Hemoglobin Concent 32.9 G/DL (32.0-36.0) Red Cell Distribution Width 17.4 % (11.6-14.8) H Platelet Count 135 K/UL (150-450) L Mean Platelet Volume 7.2 FL (6.5-10.1) Neutrophils (%) (Auto) % (45.0-75.0) Lymphocytes (%) (Auto) % (20.0-45.0) Monocytes (%) (Auto) % (1.0-10.0) Eosinophils (%) (Auto) % (0.0-3.0) Basophils (%) (Auto) % (0.0-2.0) Sodium Level 146 MMOL/L (136-145) H Potassium Level 4.1 MMOL/L (3.5-5.1) Chloride Level 111 MMOL/L (98-107) H Carbon Dioxide Level 26 MMOL/L (21-32) Anion Gap 9 mmol/L (5-15) Blood Urea Nitrogen 93 mg/dL (7-18) H Creatinine 2.2 MG/DL (0.55-1.30) H Estimat Glomerular Filtration Rate 25.9 mL/min (>60) Glucose Level 153 MG/DL (74-106) H Calcium Level 8.0 MG/DL (8.5-10.1) L Total Bilirubin 0.6 MG/DL (0.2-1.0) Aspartate Amino Transf (AST/SGOT) 82 U/L (15-37) H Alanine Aminotransferase (ALT/SGPT) 180 U/L (12-78) H Alkaline Phosphatase 297 U/L (46-116) H Total Protein 4.6 G/DL (6.4-8.2) L Albumin 1.0 G/DL (3.4-5.0) L Globulin 3.6 g/dL Albumin/Globulin Ratio 0.3 (1.0-2.7) L Urine Color Pale yellow Urine Appearance Slightly cloudy Urine pH 5 (4.5-8.0) Urine Specific [place] 1.010 (1.005-1.035) Urine Protein 2+ (NEGATIVE) H Urine Glucose (UA) Negative (NEGATIVE) Urine Ketones Negative (NEGATIVE) Urine Blood 3+ (NEGATIVE) H Urine Nitrite Negative (NEGATIVE) Urine Bilirubin Negative (NEGATIVE) Urine Urobilinogen Normal MG/DL (0.0-1.0) Urine Leukocyte Esterase 3+ (NEGATIVE) H Urine RBC 5-10 /HPF (0 - 2) H Urine WBC 5-10 /HPF (0 - 2) H Urine Squamous Epithelial Cells Few /LPF (NONE/OCC) Urine Amorphous Sediment Moderate /LPF (NONE) H Urine Bacteria Few /HPF (NONE) Urine Yeast Few /HPF (NONE) H Test 05/26/20 12:09 05/26/20 17:53 POC Whole Blood Glucose 139 MG/DL (74-106) H 137 MG/DL (74-106) H Microbiology Date/Time Source Procedure Growth Status 05/26/20 11:40 Nasopharynx SARS-CoV-2 RdRp Gene Assay - Final Complete 05/25/20 16:37 Stool Clostridium difficile Toxin Assay - Final Complete 05/24/20 16:17 Urine,Clean Catch Urine Culture - Preliminary Yeast Species Resulted Assessment/Plan Assessment/Plan Acute on chronic respiratory acidosis Acute respiratory failure Shock LE edema due to severe pulmonary hypertension and right heart strain COPD exacerb with active bronchospasm Lactic acidosis COVID 19 PNA Acute on chr renal failure - now with hyperkalemia Chronic systolic/diastolic CHF Pulmonary fibrosis with chronic hypoxia Paroxysmal AFib with RVR Hx Multifocal atrial arrhythmias Pulmonary HTN - severe Hx NSVTach Severe protein/calorie malnutrition Acute myocardial ischemia Worsening transaminitis CRITICAL & GUARDED Vent support with on-going weaning efforts following trach Hold diltiazem for low BP, but titrate for optimal rate control Steroids per pulmonary Inhaled bronchodilators IVF discontinued; reassess for diuresis. Full anticoagulation for cardioembolic prophyl Isolation Anti-viral rx per ID Monitor liver fxn Simone Perez MD May 26, 2020 22:40
[2020-05-27] VITALS (26 sets, daily range): BP systolic 86–111; BP diastolic 44–63
--- NOTE | 2020-05-27 | NUR ---
NURSE NOTES: Patient is comfortable, remains to have flat affect but shows no signs of pain, discomfort or distress. Turned and repositioned. NPO status for possible trach placement later in the afternoon. Blood sugar 122 no novolog coverage needed. Will continue plan of care.
--- NOTE | 2020-05-27 02:00 | NUR ---
NURSE NOTES: Bed bath given, linens changes, turned/repositioned, oral care and suctioning provided. Rectal tube leaking and reinforced. Will monitor.
[2020-05-27] MEDS: Meropenem 500 MG in NS 55 ML IVPB SCH ×2 (02:09→14:37)
[2020-05-27] MEDS: Acetaminophen 650mg/20.3ml NG PRN ×2 (02:09→14:49)
--- NOTE | 2020-05-27 04:00 | NUR ---
NURSE NOTES: Blood drawn peripherally for AM results. Suctioning provided.
[2020-05-27 05:16] LABS: BASOPHILS % (AUTO) 1.5 % (0.0-2.0); EOSINOPHILS % (AUTO) 5.5 % (0.0-3.0); HEMATOCRIT 25.8 % (37.0-47.0); HEMOGLOBIN 8.5 G/DL (12.0-16.0); LYMPHOCYTES % (AUTO) 21.4 % (20.0-45.0); MEAN CORPUSCULAR VOLUME 84 FL (80-99); MONOCYTES % (AUTO) 5.2 % (1.0-10.0); NEUTROPHILS % (AUTO) 66.3 % (45.0-75.0); PLATELET COUNT 153 K/UL (150-450); RED BLOOD COUNT 3.08 M/UL (4.20-5.40); RED CELL DISTRIBUTION WIDTH 17.6 % (11.6-14.8); WHITE BLOOD COUNT 3.9 K/UL (4.8-10.8)
[2020-05-27 05:17] LABS: INR 1.1 (0.9-1.1)
[2020-05-27 05:40] LABS: ALBUMIN 0.9 G/DL (3.4-5.0); ALBUMIN/GLOBULIN RATIO 0.2 (1.0-2.7); BILIRUBIN,TOTAL 0.9 MG/DL (0.2-1.0); CALCIUM 8.2 MG/DL (8.5-10.1); CREATININE 2.2 MG/DL (0.55-1.30); POTASSIUM 4.1 MMOL/L (3.5-5.1)
[2020-05-27] MEDS: dilTIAZem HCl 60mg tab ORAL SCH ×3 (05:51→21:06)
[2020-05-27] MEDS: NovoLOG Insulin Flexpen SUBQ SCH ×4 (06:00→18:00)
--- NOTE | 2020-05-27 06:00 | NUR ---
NURSE NOTES: Second bath given, linens changed. Rectal tube is leaking, attempt to troubleshoot. Bloodsugar 94, no coverage needed. Patient is comfortable.
--- NOTE | 2020-05-27 07:19 | NUR ---
NURSE HAND-OFF REPORT: Latest Vital Signs: Temperature 100.3 , Pulse 127 , B/P 97 /54 , Respiratory Rate 18 , O2 SAT 99 , Mechanical Ventilator, O2 Flow Rate 4.0 . Vital Sign Comment: Stable EKG Rhythm: Sinus Tachycardia Rhythm change?: N Notified?: Tracy Linn MD Response: No New Orders Received Latest Lechuga Fall Score: 50 Fall Risk: High Risk Safety Measures: Call light Within Reach, Bed Alarm Zone 1, Side Rails Side Rails x3, Bed position Low and Locked. Fall Precautions: Door Sign Report given to .
--- NOTE | 2020-05-27 07:30 | NUR ---
NURSE NOTES: Patient received from Edis RN. Patient stable at this time with no s/sx of pain or distress. AOx1 able to express simple questions and able to follow commands. RR even and unlabored on ETT 7.5 20 lip line. Ventilator settings as ordered AC 14 500mL 30% P5. Cardiac sounds benign. Breath sounds diminished, rhoncus. Bowels sounds hyperactive. Feeding held at this time. Zero residual. NGT in place. BL radial pulses normal. Edema present to hands +2 trace to LE. [place] in place draining well to gravity. Rectal tube in place with stool in bag previously documented at 0600. Fluids TKO to peripheral IV. Restraints on with good ROM, sensation and circulation. Dependent edema present and previously noted unrelated to restraints. Side rails upx2, bed low and locked.
--- NOTE | 2020-05-27 08:08 | General Progress Note ---
Subjective ROS Limited/Unobtainable: No Constitutional: Reports: fever, malaise, weakness HEENT: Reports: no symptoms Cardiovascular: Reports: edema Gastrointestinal/Abdominal: Reports: difficulty swallowing Genitourinary: Reports: no symptoms Neurologic/Psychiatric: Reports: no symptoms Endocrine: Reports: no symptoms Hematologic/Lymphatic: Reports: anemia Allergies: Coded Allergies: CIPROFLOXACIN (Verified Allergy, Unknown, 09/27/17) All Systems: reviewed and negative except above Subjective no events, stable on the vent. not tolerating weaning. +diarrhea. sinus tach 100-120s. low grade temps. no distress. Objective Last 24 Hour Vital Signs Date Time Temp Pulse Resp B/P (MAP) Pulse Ox O2 Delivery O2 Flow Rate FiO2 05/27/20 07:00 127 18 97/54 (68) 99 05/27/20 06:00 123 15 98/50 (66) 98 05/27/20 05:51 124 106/58 05/27/20 05:00 121 20 106/55 (72) 99 05/27/20 04:00 30 05/27/20 04:00 100.3 121 21 100/63 (75) 99 05/27/20 04:00 Mechanical Ventilator Mechanical Ventilator 05/27/20 03:44 122 05/27/20 03:00 122 14 94/61 (72) 97 05/27/20 02:51 123 15 30 05/27/20 02:39 100.0 05/27/20 02:00 127 15 110/51 (70) 98 05/27/20 01:00 125 14 105/60 (75) 99 05/27/20 00:00 99.2 124 14 106/47 (66) 100 05/27/20 00:00 Mechanical Ventilator Mechanical Ventilator 05/27/20 00:00 30 05/26/20 23:32 120 112/54 05/26/20 23:30 122 14 112/54 (73) 100 05/26/20 23:01 118 05/26/20 23:00 120 16 111/56 (74) 100 05/26/20 22:49 122 14 30 05/26/20 22:30 121 14 115/54 (74) 100 05/26/20 22:00 120 14 104/66 (79) 100 05/26/20 21:00 117 15 105/50 (68) 100 05/26/20 20:00 30 05/26/20 20:00 99.2 118 18 106/54 (71) 99 05/26/20 20:00 Mechanical Ventilator Mechanical Ventilator 05/26/20 19:18 118 05/26/20 19:00 99.0 117 15 110/56 (74) 100 05/26/20 19:00 99.0 05/26/20 18:41 118 15 30 05/26/20 18:00 101.2 119 16 105/60 (75) 100 05/26/20 17:00 119 16 101/59 (73) 100 05/26/20 16:00 Mechanical Ventilator Mechanical Ventilator 05/26/20 16:00 116 05/26/20 16:00 100.4 119 16 114/49 (70) 100 05/26/20 16:00 30 05/26/20 15:10 115 14 30 05/26/20 15:00 113 15 97/53 (68) 100 05/26/20 14:03 112 109/54 05/26/20 14:00 109 14 109/54 (72) 100 05/26/20 13:00 109 16 106/54 (71) 100 05/26/20 12:00 Mechanical Ventilator Mechanical Ventilator 05/26/20 12:00 107 05/26/20 12:00 30 05/26/20 12:00 108 14 101/55 (70) 99 05/26/20 11:00 107 14 104/55 (71) 99 05/26/20 10:40 107 15 30 05/26/20 10:00 98.8 107 15 101/63 (76) 100 05/26/20 09:44 100 05/26/20 09:00 105 14 96/51 (66) 100 Intake and Output 05/26/20 05/27/20 18:59 06:59 Intake Total 535 ml 315 ml Output Total 970 ml 945 ml Balance -435 ml -630 ml Free Water 60 ml IV Total 55 ml 55 ml Tube Feeding 480 ml 200 ml Output Urine Total 770 ml 745 ml Stool Total 200 ml 200 ml Laboratory Tests 05/26/20 12:00: Urine Color Pale yellow, Urine Appearance Slightly cloudy, Urine pH 5, Urine Specific [place] 1.010, Urine Protein 2+H, Urine Glucose (UA) Negative, Urine Ketones Negative, Urine Blood 3+H, Urine Nitrite Negative, Urine Bilirubin Negative, Urine Urobilinogen Normal, Urine Leukocyte Esterase 3+H, Urine RBC 5- 10H, Urine WBC 5-10H, Urine Squamous Epithelial Cells Few, Urine Amorphous Sediment ModerateH, Urine Bacteria Few, Urine Yeast FewH 05/26/20 12:09: POC Whole Blood Glucose 139H 05/26/20 17:53: POC Whole Blood Glucose 137H 05/27/20 04:00: White Blood Count 3.9L, Red Blood Count 3.08L, Hemoglobin 8.5L, Hematocrit 25.8L , Mean Corpuscular Volume 84, Mean Corpuscular Hemoglobin 27.6, Mean Corpuscular Hemoglobin Concent 33.0, Red Cell Distribution Width 17.6H, Platelet Count 153, Mean Platelet Volume 6.8, Neutrophils (%) (Auto) 66.3, Lymphocytes (%) (Auto) 21.4, Monocytes (%) (Auto) 5.2, Eosinophils (%) (Auto) 5.5H, Basophils (%) (Au to) 1.5, Prothrombin Time 12.4H, Prothromb Time International Ratio 1.1, Activated Partial Thromboplast Time 28, Sodium Level 148H, Potassium Level 4.1, Chloride Level 113H, Carbon Dioxide Level 28, Anion Gap 7, Blood Urea Nitrogen 85H, Creatinine 2.2H, Estimat Glomerular Filtration Rate 25.9, Glucose Level 99, Calcium Level 8.2L, Total Bilirubin 0.9, Aspartate Amino Transf (AST/SGOT) 54H, Alanine Aminotransferase (ALT/SGPT) 122H, Alkaline Phosphatase 279H, Total Protein 5.3L, Albumin 0.9L, Globulin 4.4, Albumin/Globulin Ratio 0.2L Height (Feet): 5 Height (Inches): 3.00 Weight (Pounds): 160 Objective General Appearance: WD/WN, no apparent distress, alert. 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 normal, alert, oriented x 3, responsive Skin: normal pigmentation Lymphatic: normal anterior cervical (L), normal anterior cervical (R) Assessment/Plan Problem List: (1) Pulmonary fibrosis ICD Codes: J84.10 - Pulmonary fibrosis, unspecified SNOMED: 39009411 (2) History of asthma ICD Codes: Z87.09 - Personal history of other diseases of the respiratory sys tem SNOMED: 486531317 (3) Asthma ICD Codes: J45.909 - Unspecified asthma, uncomplicated SNOMED: 319512481 (4) NSTEMI (non-ST elevated myocardial infarction) ICD Codes: I21.4 - Non-ST elevation (NSTEMI) myocardial infarction SNOMED: 158543969 (5) Elevated troponin ICD Codes: R79.89 - Other specified abnormal findings of blood chemistry SNOMED: 175516280, 346191107, 971452802 (6) COPD (chronic obstructive pulmonary disease) ICD Codes: J44.9 - Chronic obstructive pulmonary disease, unspecified SNOMED: 22190236 (7) Atrial fibrillation with RVR ICD Codes: I48.91 - Unspecified atrial fibrillation SNOMED: 941461805890102 (8) Community acquired pneumonia ICD Codes: J18.9 - Pneumonia, unspecified organism SNOMED: 468473547 Status: stable Assessment/Plan: cont iv abx fluconazole for fungal uti water flushes via ngt monitor renal fxn/lytes ngt feeds wean vent as able BP rx keep dry cardizem for rate control dvt/stress ulcer prophylaxis skin care imodium check stool culture GT tomorrow trach monday eliquis and aspirin on hold for procedures turn q2 critical and guarded Bradford Linn MD May 27, 2020 08:08
[2020-05-27] MEDS: Acetaminophen 500mg (ES) tab ORAL PRN (09:50)
[2020-05-27] MEDS: Wixela 100/50 Inhaler - 60 dose INH SCH ×2 (10:00→21:06)
--- NOTE | 2020-05-27 10:00 | NUR ---
NURSE NOTES: Patient has fever of 101.2F. Tylenol given.
[2020-05-27] MEDS: Ipratropium Bromide Inhaler INH SCH ×5 (10:58→21:07)
--- NOTE | 2020-05-27 11:00 | NUR ---
NURSE NOTES: Consent for tracheostomy obtained from daughter.
--- NOTE | 2020-05-27 12:00 | NUR ---
NURSE NOTES: Dr. Sanchez called daughter and explained procedure along with risks and benefits.
--- NOTE | 2020-05-27 12:00 | NUR ---
NURSE NOTES: Patient stable at this time with no s/sx of pain or distress. Refusing care and gets upset when attempted.
--- NOTE | 2020-05-27 12:09 | NUR ---
CASE MANAGEMENT: REVIEW SI: COVID-19 . PNA . T 101.2 HR 129 RR 14 BP 94/61 SAT 99% MECH VENT FIO2 30 WBC 3.9 H/H 8.5/25.8 NA 148 BUN 85 CR 2.2 IS: MEROPENEM IV Q12HR ADVAIR INH BID TYLENOL NGT Q4HR PRN ICU STATUS DCP: PATIENT IS FROM HOME
--- NOTE | 2020-05-27 13:31 | Surgery Progress Note ---
Surgery Progress Note Subjective Additional Comments plan for trach tomorrow or monday blood thinner held discussed with daughter who is a nurse. consent obtained. Objective Last 24 Hour Vital Signs Date Time Temp Pulse Resp B/P (MAP) Pulse Ox O2 Delivery O2 Flow Rate FiO2 05/27/20 10:00 122 14 99/52 (68) 100 05/27/20 09:00 101.2 126 14 102/56 (71) 99 05/27/20 08:00 Mechanical Ventilator Mechanical Ventilator 05/27/20 08:00 129 17 99/57 (71) 99 05/27/20 08:00 30 05/27/20 07:39 131 14 30 05/27/20 07:00 127 18 97/54 (68) 99 05/27/20 06:00 123 15 98/50 (66) 98 05/27/20 05:51 124 106/58 05/27/20 05:00 121 20 106/55 (72) 99 05/27/20 04:00 30 05/27/20 04:00 100.3 121 21 100/63 (75) 99 05/27/20 04:00 Mechanical Ventilator Mechanical Ventilator 05/27/20 03:44 122 05/27/20 03:00 122 14 94/61 (72) 97 05/27/20 02:51 123 15 30 05/27/20 02:39 100.0 05/27/20 02:00 127 15 110/51 (70) 98 05/27/20 01:00 125 14 105/60 (75) 99 05/27/20 00:00 99.2 124 14 106/47 (66) 100 05/27/20 00:00 Mechanical Ventilator Mechanical Ventilator 05/27/20 00:00 30 05/26/20 23:32 120 112/54 05/26/20 23:30 122 14 112/54 (73) 100 05/26/20 23:01 118 05/26/20 23:00 120 16 111/56 (74) 100 05/26/20 22:49 122 14 30 05/26/20 22:30 121 14 115/54 (74) 100 05/26/20 22:00 120 14 104/66 (79) 100 05/26/20 21:00 117 15 105/50 (68) 100 05/26/20 20:00 30 05/26/20 20:00 99.2 118 18 106/54 (71) 99 05/26/20 20:00 Mechanical Ventilator Mechanical Ventilator 05/26/20 19:18 118 05/26/20 19:00 99.0 117 15 110/56 (74) 100 05/26/20 19:00 99.0 05/26/20 18:41 118 15 30 05/26/20 18:00 101.2 119 16 105/60 (75) 100 05/26/20 17:00 119 16 101/59 (73) 100 05/26/20 16:00 Mechanical Ventilator Mechanical Ventilator 05/26/20 16:00 116 05/26/20 16:00 100.4 119 16 114/49 (70) 100 05/26/20 16:00 30 05/26/20 15:10 115 14 30 05/26/20 15:00 113 15 97/53 (68) 100 05/26/20 14:03 112 109/54 05/26/20 14:00 109 14 109/54 (72) 100 I&O Intake and Output 05/26/20 05/27/20 18:59 06:59 Intake Total 535 ml 315 ml Output Total 970 ml 945 ml Balance -435 ml -630 ml Free Water 60 ml IV Total 55 ml 55 ml Tube Feeding 480 ml 200 ml Output Urine Total 770 ml 745 ml Stool Total 200 ml 200 ml Cardiovascular: RSR Respiratory: decreased breath sounds Abdomen: soft, non-tender, present bowel sounds Extremities: no tenderness, no cyanosis Laboratory Tests Test 05/26/20 17:53 05/26/20 23:33 05/27/20 04:00 05/27/20 12:11 POC Whole Blood Glucose 137 MG/DL (74-106) H Pending 98 MG/DL (74-106) White Blood Count 3.9 K/UL (4.8-10.8) L Red Blood Count 3.08 M/UL (4.20-5.40) L Hemoglobin 8.5 G/DL (12.0-16.0) L Hematocrit 25.8 % (37.0-47.0) L Mean Corpuscular Volume 84 FL (80-99) Mean Corpuscular Hemoglobin 27.6 PG (27.0-31.0) Mean Corpuscular Hemoglobin Concent 33.0 G/DL (32.0-36.0) Red Cell Distribution Width 17.6 % (11.6-14.8) H Platelet Count 153 K/UL (150-450) Mean Platelet Volume 6.8 FL (6.5-10.1) Neutrophils (%) (Auto) 66.3 % (45.0-75.0) Lymphocytes (%) (Auto) 21.4 % (20.0-45.0) Monocytes (%) (Auto) 5.2 % (1.0-10.0) Eosinophils (%) (Auto) 5.5 % (0.0-3.0) H Basophils (%) (Auto) 1.5 % (0.0-2.0) Prothrombin Time 12.4 SEC (9.30-11.50) H Prothromb Time International Ratio 1.1 (0.9-1.1) Activated Partial Thromboplast Time 28 SEC (23-33) Sodium Level 148 MMOL/L (136-145) H Potassium Level 4.1 MMOL/L (3.5-5.1) Chloride Level 113 MMOL/L (98-107) H Carbon Dioxide Level 28 MMOL/L (21-32) Anion Gap 7 mmol/L (5-15) Blood Urea Nitrogen 85 mg/dL (7-18) H Creatinine 2.2 MG/DL (0.55-1.30) H Estimat Glomerular Filtration Rate 25.9 mL/min (>60) Glucose Level 99 MG/DL (74-106) Calcium Level 8.2 MG/DL (8.5-10.1) L Total Bilirubin 0.9 MG/DL (0.2-1.0) Aspartate Amino Transf (AST/SGOT) 54 U/L (15-37) H Alanine Aminotransferase (ALT/SGPT) 122 U/L (12-78) H Alkaline Phosphatase 279 U/L (46-116) H Total Protein 5.3 G/DL (6.4-8.2) L Albumin 0.9 G/DL (3.4-5.0) L Globulin 4.4 g/dL Albumin/Globulin Ratio 0.2 (1.0-2.7) L Plan Problems: (1) Elevated troponin (2) Atrial fibrillation with RVR (3) COVID-19 Assessment & Plan: ++ as per pulm and ID trach DAILY ESTIMATED NEEDS: Needs based on Critical Care, ARF/ 56kg abw 22-28 kcals/kg 8496-6069 total kcals 0.8-1.5 (increase w/ renal improvement) g protein/kg 45-84 g total protein 25-30 mL/kg 1531-9919 total fluid mLs NUTRITION DIAGNOSIS: * Altered nutrition related lab values r/t clinical status as evidenced by elev BUN(82), creat(3.8) trending up, critical ABG (low pH, elev CO2)-> now improved. * Swallowing difficulty R/T respiratory status as evidenced by s/p oral intubation, on OGT feeds. 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: SAW SHARPENER eval post extubation ENTERAL NUTRITION RECOMMENDATIONS: Nepro @ 35ml/hr x 24 hrs to provide 840ml, 1512kcal, 68g prot, 610ml free water * W/ worsening renal fxn, rec to continue Nepro * As tolerated, increase goal rate to 35ml/hr x 24 hrs to meet 100% est kcal/prot needs ADDITIONAL RECOMMENDATIONS: 1) Calibrated bedscale wt 2) Monitor renal fxn and lytes, need to continue Nepro Creat trending up 3) Rec niss w/ solumedrol (4) Community acquired pneumonia (5) COPD (chronic obstructive pulmonary disease) (6) Pulmonary fibrosis (7) Asthma (8) History of asthma (9) NSTEMI (non-ST elevated myocardial infarction) (10) Moderate to severe pulmonary hypertension (11) Asthma exacerbation (12) Abnormal LFTs Assessment & Plan: afebrile, HD stable labs noted lft's elevated US reviewed exam benign gb likely reactive from underlying pathology unlikely cholecystitis clinically fluid overload trend labs will monitor exam clinically covid + prognosis guarded cxr reviewed on abx worsening plan repeat US - noted cannot get hida given covid labs noted worsening leukocytosis Gallbladder demonstrates wall thickening and wall edema, gallbladder wall measuring up to 6 mm thick. There are gallstones. Sonographic Escoto's sign is negative. Common bile duct measures 3 mm in diameter. No intrahepatic biliary ductal dilatation. Liver demonstrates normal echogenicity, no focal abnormality. Portal vein and hepatic veins are patent. Pancreas is unremarkable. Spleen is unremarkable. Left kidney measures 9.2 cm in length. Right kidney measures 9.9 cm length. Both kidneys demonstrate normal echogenicity. There is no hydronephrosis. Small cyst is seen in the right kidney. . Abdominal aorta was not imaged . There is trace ascites. There is a small right pleural effusion incidentally noted Impression: Small right pleural effusion. Trace ascites Cholelithiasis. Gallbladder wall thickening may be related to hemodynamic factors causing the pleural fluid and ascites, but could also indicate acute cholecystitis. Consider nuclear medicine hepatobiliary scan if there is high clinical suspicion. Negative for dilated bile ducts Small right renal cyst incidentally noted (13) Acute respiratory failure with hypoxia Quentin Sanchez May 27, 2020 13:31
--- NOTE | 2020-05-27 13:51 | Nephrology Progress Note ---
Assessment/Plan Plan Severe Prerenal Azotemia due to hypoperfusion. GFR seems to be improving. MOF due to Covid 19 MOF. Subjective Subjective Confused Objective Objective Last 24 Hour Vital Signs Date Time Temp Pulse Resp B/P (MAP) Pulse Ox O2 Delivery O2 Flow Rate FiO2 05/27/20 13:00 119 19 98/52 (67) 99 05/27/20 12:00 100.2 123 16 99/56 (70) 100 05/27/20 12:00 Mechanical Ventilator Mechanical Ventilator 05/27/20 12:00 115 05/27/20 11:00 125 21 111/54 (73) 100 05/27/20 10:00 122 14 99/52 (68) 100 05/27/20 09:00 101.2 126 14 102/56 (71) 99 05/27/20 08:00 131 05/27/20 08:00 Mechanical Ventilator Mechanical Ventilator 05/27/20 08:00 129 17 99/57 (71) 99 05/27/20 08:00 30 05/27/20 07:39 131 14 30 05/27/20 07:00 127 18 97/54 (68) 99 05/27/20 06:00 123 15 98/50 (66) 98 05/27/20 05:51 124 106/58 05/27/20 05:00 121 20 106/55 (72) 99 05/27/20 04:00 30 05/27/20 04:00 100.3 121 21 100/63 (75) 99 05/27/20 04:00 Mechanical Ventilator Mechanical Ventilator 05/27/20 03:44 122 05/27/20 03:00 122 14 94/61 (72) 97 05/27/20 02:51 123 15 30 05/27/20 02:39 100.0 05/27/20 02:00 127 15 110/51 (70) 98 05/27/20 01:00 125 14 105/60 (75) 99 05/27/20 00:00 99.2 124 14 106/47 (66) 100 05/27/20 00:00 Mechanical Ventilator Mechanical Ventilator 05/27/20 00:00 30 05/26/20 23:32 120 112/54 05/26/20 23:30 122 14 112/54 (73) 100 05/26/20 23:01 118 05/26/20 23:00 120 16 111/56 (74) 100 05/26/20 22:49 122 14 30 05/26/20 22:30 121 14 115/54 (74) 100 05/26/20 22:00 120 14 104/66 (79) 100 05/26/20 21:00 117 15 105/50 (68) 100 05/26/20 20:00 30 05/26/20 20:00 99.2 118 18 106/54 (71) 99 05/26/20 20:00 Mechanical Ventilator Mechanical Ventilator 05/26/20 19:18 118 05/26/20 19:00 99.0 117 15 110/56 (74) 100 05/26/20 19:00 99.0 05/26/20 18:41 118 15 30 05/26/20 18:00 101.2 119 16 105/60 (75) 100 05/26/20 17:00 119 16 101/59 (73) 100 05/26/20 16:00 Mechanical Ventilator Mechanical Ventilator 05/26/20 16:00 116 05/26/20 16:00 100.4 119 16 114/49 (70) 100 05/26/20 16:00 30 05/26/20 15:10 115 14 30 05/26/20 15:00 113 15 97/53 (68) 100 05/26/20 14:03 112 109/54 05/26/20 14:00 109 14 109/54 (72) 100 Intake and Output 05/26/20 05/27/20 19:00 07:00 Intake Total 535 ml 275 ml Output Total 980 ml 935 ml Balance -445 ml -660 ml Free Water 60 ml IV Total 55 ml 55 ml Tube Feeding 480 ml 160 ml Output Urine Total 780 ml 735 ml Stool Total 200 ml 200 ml Laboratory Tests 05/26/20 17:53: POC Whole Blood Glucose 137H 05/26/20 23:33: POC Whole Blood Glucose [Pending] 05/27/20 04:00: White Blood Count 3.9L, Red Blood Count 3.08L, Hemoglobin 8.5L, Hematocrit 25.8L , Mean Corpuscular Volume 84, Mean Corpuscular Hemoglobin 27.6, Mean Corpuscular Hemoglobin Concent 33.0, Red Cell Distribution Width 17.6H, Platelet Count 153, Mean Platelet Volume 6.8, Neutrophils (%) (Auto) 66.3, Lymphocytes (%) (Auto) 21.4, Monocytes (%) (Auto) 5.2, Eosinophils (%) (Auto) 5.5H, Basophils (%) (Auto) 1.5, Prothrombin Time 12.4H, Prothromb Time International Ratio 1.1, Activated Partial Thromboplast Time 28, Sodium Level 148H, Potassium Level 4.1, Chloride Level 113H, Carbon Dioxide Level 28, Anion Gap 7, Blood Urea Nitrogen 85H, Creatinine 2.2H, Estimat Glomerular Filtration Rate 25.9, Glucose Level 99, Calcium Level 8.2L, Total Bilirubin 0.9, Aspartate Amino Transf (AST/SGOT) 54H, Alanine Aminotransferase (ALT/SGPT) 122H, Alkaline Phosphatase 279H, Total Protein 5.3L, Albumin 0.9L, Globulin 4.4, Albumin/Globulin Ratio 0.2L 05/27/20 12:11: POC Whole Blood Glucose 98 Height (Feet): 5 Height (Inches): 3.00 Weight (Pounds): 160 Objective CV Tach +Irr Lungs B Ronchi Abd SNT. BS + E +3 edema Ruth Coyne MD May 27, 2020 13:51
--- NOTE | 2020-05-27 14:00 | NUR ---
NURSE NOTES: Patient resting at this time. HR elevated and SBP >100. Will give diltiazem.
--- NOTE | 2020-05-27 15:00 | NUR ---
NURSE NOTES: Patient has 101.5F. Will give Tylenol. Cooling measures applied and explained to patient that although she does not want ice packs, they are needed to control temperature. Patient apprehensive but agreeable.
--- NOTE | 2020-05-27 16:05 | Diagnostic Imaging Report ---
Indication: Lower extremity pain Technique: Grayscale and duplex images of the bilateral lower extremity veins Comparison: None Findings: Bilaterally, grayscale and duplex images demonstrate no evidence of intraluminal thrombus. Normal phasic Doppler waveforms, demonstrating normal augmentation response and no evidence of valvular insufficiency. Greater saphenous vein(s) and tibial veins are patent. Normal compressibility. Impression: Negative for evidence of lower extremity deep venous thrombosis bilaterally
--- NOTE | 2020-05-27 17:00 | NUR ---
NURSE NOTES: Patient cleaned. Oral care performed.
--- NOTE | 2020-05-27 17:53 | Pulmonology Progress Note ---
Subjective ROS Limited/Unobtainable: Yes Constitutional: Reports: other - Xm=174.4 Musculoskeletal: Denies: pain Allergies: Coded Allergies: CIPROFLOXACIN (Verified Allergy, Unknown, 09/27/17) All Systems: reviewed and negative except above Subjective on vent- still not weaning well hypotensive and tachy persistent comfortable sedated reduced LOC d/w daughter who consented to trach/PEG ICU care reviewed Objective Last 24 Hour Vital Signs Date Time Temp Pulse Resp B/P (MAP) Pulse Ox O2 Delivery O2 Flow Rate FiO2 05/27/20 16:00 118 05/27/20 16:00 30 05/27/20 16:00 Mechanical Ventilator Mechanical Ventilator 05/27/20 15:19 118 17 30 05/27/20 15:00 101.5 127 17 92/51 (65) 99 05/27/20 14:38 120 101/52 05/27/20 14:00 119 16 101/52 (68) 100 05/27/20 13:00 119 19 98/52 (67) 99 05/27/20 12:00 100.2 123 16 99/56 (70) 100 05/27/20 12:00 Mechanical Ventilator Mechanical Ventilator 05/27/20 12:00 30 05/27/20 12:00 115 05/27/20 11:17 115 14 98 Mechanical Ventilator 30 110 14 05/27/20 11:00 125 21 111/54 (73) 100 05/27/20 10:20 100.2 05/27/20 10:00 122 14 99/52 (68) 100 05/27/20 09:00 101.2 126 14 102/56 (71) 99 05/27/20 08:00 131 05/27/20 08:00 Mechanical Ventilator Mechanical Ventilator 05/27/20 08:00 129 17 99/57 (71) 99 05/27/20 08:00 30 05/27/20 07:39 131 14 30 05/27/20 07:00 127 18 97/54 (68) 99 05/27/20 06:00 123 15 98/50 (66) 98 05/27/20 05:51 124 106/58 05/27/20 05:00 121 20 106/55 (72) 99 05/27/20 04:00 30 05/27/20 04:00 100.3 121 21 100/63 (75) 99 05/27/20 04:00 Mechanical Ventilator Mechanical Ventilator 05/27/20 03:44 122 05/27/20 03:00 122 14 94/61 (72) 97 05/27/20 02:51 123 15 30 05/27/20 02:39 100.0 05/27/20 02:00 127 15 110/51 (70) 98 05/27/20 01:00 125 14 105/60 (75) 99 05/27/20 00:00 99.2 124 14 106/47 (66) 100 05/27/20 00:00 Mechanical Ventilator Mechanical Ventilator 05/27/20 00:00 30 05/26/20 23:32 120 112/54 05/26/20 23:30 122 14 112/54 (73) 100 05/26/20 23:01 118 05/26/20 23:00 120 16 111/56 (74) 100 05/26/20 22:49 122 14 30 05/26/20 22:30 121 14 115/54 (74) 100 05/26/20 22:00 120 14 104/66 (79) 100 05/26/20 21:00 117 15 105/50 (68) 100 05/26/20 20:00 30 05/26/20 20:00 99.2 118 18 106/54 (71) 99 05/26/20 20:00 Mechanical Ventilator Mechanical Ventilator 05/26/20 19:18 118 05/26/20 19:00 99.0 117 15 110/56 (74) 100 05/26/20 19:00 99.0 05/26/20 18:41 118 15 30 05/26/20 18:00 101.2 119 16 105/60 (75) 100 Intake and Output 05/26/20 05/27/20 19:00 07:00 Intake Total 535 ml 275 ml Output Total 980 ml 935 ml Balance -445 ml -660 ml Free Water 60 ml IV Total 55 ml 55 ml Tube Feeding 480 ml 160 ml Output Urine Total 780 ml 735 ml Stool Total 200 ml 200 ml Objective deferred due to COVID Microbiology Date/Time Source Procedure Growth Status 05/26/20 11:40 Nasopharynx SARS-CoV-2 RdRp Gene Assay - Final Complete 05/26/20 11:40 Sputum Induced Gram Stain - Final Resulted 05/26/20 11:40 Sputum Induced Sputum Culture Pending Resulted 05/25/20 16:37 Stool Clostridium difficile Toxin Assay - Final Complete Laboratory Tests 05/26/20 17:53: POC Whole Blood Glucose 137H 05/26/20 23:33: POC Whole Blood Glucose [Pending] 05/27/20 04:00: White Blood Count 3.9L, Red Blood Count 3.08L, Hemoglobin 8.5L, Hematocrit 25.8L , Mean Corpuscular Volume 84, Mean Corpuscular Hemoglobin 27.6, Mean Corpuscular Hemoglobin Concent 33.0, Red Cell Distribution Width 17.6H, Platelet Count 153, Mean Platelet Volume 6.8, Neutrophils (%) (Auto) 66.3, Lymphocytes (%) (Auto) 21.4, Monocytes (%) (Auto) 5.2, Eosinophils (%) (Auto) 5.5H, Basophils (%) (Auto) 1.5, Prothrombin Time 12.4H, Prothromb Time International Ratio 1.1, Activated Partial Thromboplast Time 28, Sodium Level 148H, Potassium Level 4.1, Chloride Level 113H, Carbon Dioxide Level 28, Anion Gap 7, Blood Urea Nitrogen 85H, Creatinine 2.2H, Estimat Glomerular Filtration Rate 25.9, Glucose Level 99, Calcium Level 8.2L, Total Bilirubin 0.9, Aspartate Amino Transf (AST/SGOT) 54H, Alanine Aminotransferase (ALT/SGPT) 122H, Alkaline Phosphatase 279H, Total Protein 5.3L, Albumin 0.9L, Globulin 4.4, Albumin/Globulin Ratio 0.2L 05/27/20 12:11: POC Whole Blood Glucose 98 05/27/20 17:34: POC Whole Blood Glucose 121H Current Medications Medications (Trade) Dose Ordered Sig/Ghislaine Route PRN Reason Start Time Stop Time Status Last Admin Dose Admin Acetaminophen (Tylenol) 500 mg Q4H PRN ORAL Mild Pain (Pain Scale 1-3) 05/11/20 20:00 06/02/20 19:59 05/27/20 09:50 Acetaminophen (Tylenol) 650 mg Q4H PRN NG Temp >100.5 05/25/20 16:15 06/24/20 16:14 05/27/20 14:49 Albuterol Sulfate (Proventil MDI) 2 puff Q4H PRN INH Shortness of Breath 05/11/20 20:00 08/01/20 11:59 05/13/20 10:30 Dextrose (Dextrose 50%) 25 ml Q30M PRN IV Hypoglycemia 05/22/20 18:30 08/20/20 18:29 Dextrose (Dextrose 50%) 50 ml Q30M PRN IV Hypoglycemia 05/22/20 18:30 08/20/20 18:29 Diltiazem HCl (Cardizem Tab) 60 mg EVERY 8 HOURS ORAL 05/16/20 06:00 06/15/20 05:59 05/27/20 14:38 Insulin Aspart (NovoLOG) Q6HR SUBQ 05/23/20 00:00 08/20/20 20:59 05/26/20 06:08 Ipratropium Vilonia (Atrovent Inh) 1 puffs QID INH 05/27/20 10:00 06/26/20 09:59 05/27/20 16:18 Loperamide HCl (Imodium) 2 mg Q6H PRN NG Diarrhea 05/26/20 17:45 06/25/20 17:44 05/27/20 10:52 Meropenem 500 mg/ Sodium Chloride 55 ml @ 110 mls/hr Q12HR@0200,1400 IVPB 05/26/20 14:00 05/31/20 13:59 05/27/20 14:37 Pantoprazole (Protonix) 40 mg DAILY ORAL 05/12/20 09:00 06/02/20 15:59 05/27/20 10:51 Salmeterol Xinafoate/ Fluticasone (Advair 100/50 Diskus) 1 puffs BIDRT INH 05/11/20 22:00 08/09/20 21:59 05/16/20 09:02 Assessment/Plan Assessment/Plan Impression: COVID-19 Chronic obstructive pulmonary disease/Asthma Community acquired pneumonia Atrial fibrillation with RVR Elevated troponin Congestive heart Failure sinus tachycardia Hypoxemia transaminitis with gallstones consider cholecystitis acute on chronic renal failure acute respiratory failure hypotension tachycardia transaminitis MODS Plan ID noted gi follow up monitor heart rate on cardizem Vent support/unable to wean surgery for trach in am wean oxygen - low flow at present feeds per dietary and monitor residuals IV therapy noted Bronchodilator therapy Eliquis and monitor HH Monitor labs/ renal follow up - renal function still reduced- renal following Covid 19 Isolation- per ID nutrition and NG feeds reviewed care and optimize position change and monitor skin surgical follow up noted monitor protein levels and adjust will d/w daughter; ok for trach and peg and would want to take patient home position change and monitor skin medications/laboratory data/nursing notes/ICU care reviewed in detail note reviewed and edited care discussed with RN and RT ICU time spent >40 minutes Aaron Jefferson MD May 27, 2020 17:53
--- NOTE | 2020-05-27 19:29 | NUR ---
NURSE HAND-OFF REPORT: Latest Vital Signs: Temperature 100.9 , Pulse 113 , B/P 97 /49 , Respiratory Rate 17 , O2 SAT 99 , Mechanical Ventilator, O2 Flow Rate 4.0 . Vital Sign Comment: STABLE EKG Rhythm: Sinus Tachycardia Rhythm change?: N MD Notified?: MD Response: Latest Lechuga Fall Score: 50 Fall Risk: High Risk Safety Measures: Call light Within Reach, Bed Alarm Zone 1, Side Rails Side Rails x3, Bed position Low and Locked. Fall Precautions: Door Sign Report given to Hailee SALGADO. Plan of care edorsed.
--- NOTE | 2020-05-27 19:30 | NUR ---
NURSE NOTES: Received patient from DAMIAN Barrera. Will continue plan of care.
--- NOTE | 2020-05-27 20:00 | NUR ---
NURSE NOTES: Patient is sleeping but awakens upon entering the room. She is intubated; ETT 7.5 @ 20cm to the lipline to vent with settings of AC:14, TV:500, FiO2:30%, PEEP:5. Right nare NGT running Glucerna 1.5 @ 40ml/hr. Riojas catheter and rectal tube in place and draining. Right hand 20g IV running TKO. PRECISION FILER HAND restraints in place for safety and prevent from pulling on lines; ROM and skin assessed. Isolation precaution noted. Safety measures in place; bed low, locked and alarm is on. Patient daughter is here to for visitation. Patient turned and repositioned. Will continue plan of care.
--- NOTE | 2020-05-27 22:00 | NUR ---
NURSE NOTES: Patient awakens upon entering the room, able to answer simple questions with nodding and shaking of her head. Repositioned. NGT patent and flushing. Patient is comfortable. BP:93/52, HR:114, O2sat:97%.
--- NOTE | 2020-05-27 22:35 | General Progress Note ---
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 tolerating NG TF liq stool Objective Last 24 Hour Vital Signs Date Time Temp Pulse Resp B/P (MAP) Pulse Ox O2 Delivery O2 Flow Rate FiO2 05/27/20 22:00 114 15 93/52 (66) 98 05/27/20 21:30 112 15 97/49 (65) 98 05/27/20 21:08 112 14 100 Mechanical Ventilator 30 111 14 05/27/20 21:06 113 97/53 05/27/20 21:00 115 19 97/53 (68) 99 05/27/20 20:30 117 22 99/52 (68) 99 05/27/20 20:00 100.3 115 19 93/52 (66) 99 05/27/20 20:00 Mechanical Ventilator Mechanical Ventilator 05/27/20 20:00 30 05/27/20 19:00 113 17 97/49 (65) 99 05/27/20 18:49 112 14 30 05/27/20 18:00 109 14 86/44 (58) 97 05/27/20 17:00 119 25 98/50 (66) 100 05/27/20 16:00 118 05/27/20 16:00 30 05/27/20 16:00 Mechanical Ventilator Mechanical Ventilator 05/27/20 16:00 100.9 05/27/20 16:00 100.9 118 14 93/47 (62) 99 05/27/20 15:19 118 17 100 Mechanical Ventilator 30 114 17 05/27/20 15:00 101.5 127 17 92/51 (65) 99 05/27/20 14:38 120 101/52 05/27/20 14:00 119 16 101/52 (68) 100 05/27/20 13:00 119 19 98/52 (67) 99 05/27/20 12:00 100.2 123 16 99/56 (70) 100 05/27/20 12:00 Mechanical Ventilator Mechanical Ventilator 05/27/20 12:00 30 05/27/20 12:00 115 05/27/20 11:17 115 14 98 Mechanical Ventilator 30 110 14 05/27/20 11:00 125 21 111/54 (73) 100 05/27/20 10:20 100.2 05/27/20 10:00 122 14 99/52 (68) 100 05/27/20 09:00 101.2 126 14 102/56 (71) 99 05/27/20 08:00 131 05/27/20 08:00 Mechanical Ventilator Mechanical Ventilator 05/27/20 08:00 129 17 99/57 (71) 99 05/27/20 08:00 30 05/27/20 07:39 131 14 30 05/27/20 07:00 127 18 97/54 (68) 99 05/27/20 06:00 123 15 98/50 (66) 98 05/27/20 05:51 124 106/58 05/27/20 05:00 121 20 106/55 (72) 99 05/27/20 04:00 30 05/27/20 04:00 100.3 121 21 100/63 (75) 99 05/27/20 04:00 Mechanical Ventilator Mechanical Ventilator 05/27/20 03:44 122 05/27/20 03:00 122 14 94/61 (72) 97 05/27/20 02:51 123 15 30 05/27/20 02:39 100.0 05/27/20 02:00 127 15 110/51 (70) 98 05/27/20 01:00 125 14 105/60 (75) 99 05/27/20 00:00 99.2 124 14 106/47 (66) 100 05/27/20 00:00 Mechanical Ventilator Mechanical Ventilator 05/27/20 00:00 30 05/26/20 23:32 120 112/54 05/26/20 23:30 122 14 112/54 (73) 100 05/26/20 23:01 118 05/26/20 23:00 120 16 111/56 (74) 100 05/26/20 22:49 122 14 30 Intake and Output 05/26/20 05/27/20 18:59 06:59 Intake Total 535 ml 315 ml Output Total 970 ml 945 ml Balance -435 ml -630 ml Free Water 60 ml IV Total 55 ml 55 ml Tube Feeding 480 ml 200 ml Output Urine Total 770 ml 745 ml Stool Total 200 ml 200 ml Laboratory Tests 05/26/20 23:33: POC Whole Blood Glucose [Pending] 05/27/20 04:00: White Blood Count 3.9L, Red Blood Count 3.08L, Hemoglobin 8.5L, Hematocrit 25.8L , Mean Corpuscular Volume 84, Mean Corpuscular Hemoglobin 27.6, Mean Corpuscular Hemoglobin Concent 33.0, Red Cell Distribution Width 17.6H, Platelet Count 153, Mean Platelet Volume 6.8, Neutrophils (%) (Auto) 66.3, Lymphocytes (%) (Auto) 21.4, Monocytes (%) (Auto) 5.2, Eosinophils (%) (Auto) 5.5H, Basophils (%) (Auto) 1.5, Prothrombin Time 12.4H, Prothromb Time International Ratio 1.1, Activated Partial Thromboplast Time 28, Sodium Level 148H, Potassium Level 4.1, Chloride Level 113H, Carbon Dioxide Level 28, Anion Gap 7, Blood Urea Nitrogen 85H, Creatinine 2.2H, Estimat Glomerular Filtration Rate 25.9, Glucose Level 99, Calcium Level 8.2L, Total Bilirubin 0.9, Aspartate Amino Transf (AST/SGOT) 54H, Alanine Aminotransferase (ALT/SGPT) 122H, Alkaline Phosphatase 279H, Total Protein 5.3L, Albumin 0.9L, Globulin 4.4, Albumin/Globulin Ratio 0.2L 05/27/20 12:11: POC Whole Blood Glucose 98 05/27/20 17:34: POC Whole Blood Glucose 121H Height (Feet): 5 Height (Inches): 3.00 Weight (Pounds): 160 Objective Elderly AA woman seen in ICU exam limited due to COVID isolation comfortable appearing NCAT (+) NG Feeding tube - tolerating well (+) intubated - on ventilator abd non distended Assessment/Plan Status: stable Assessment/Plan: Assessment - Transaminitis, likely due to COVID-19 --Improving - Gallstones - Resp failure - Dysphagia - OGT - CHF - Pulm HTN - Arrhythmia - Leukocytosis - Renal failure Recommendations - monitor LFT - Continue TF - Abx - ICU care - plans for trach noted - PEG at later date once stabilized - will consider repeat abd ultrasound Justine Torres MD May 27, 2020 22:35
[2020-05-28] VITALS (24 sets, daily range): BP systolic 93–112; BP diastolic 43–75
--- NOTE | 2020-05-28 | NUR ---
NURSE NOTES: No changes in patient condition. Temp 100.1F axillary. Cooling measures placed. B/S 143 2 units Novolog given subq
[2020-05-28] MEDS: NovoLOG Insulin Flexpen SUBQ SCH ×5 (00:09→23:26)
[2020-05-28] MEDS: Tobramycin for inhalation INH SCH (01:00)
--- NOTE | 2020-05-28 01:59 | Cardiology Progress Note ---
Subjective DATE OF SERVICE: May 27, 2020 Condition remains critical; patient remains on [facility] ventilation - failed wean, and trach now planned. Monitor: AFib with episodes of RVR and nonsustained VTach. BP remains tenuous, as well as acid-base status. Sodium levels elevated again. Episodes of tachyarrhythmias persist, and BP is increasingly tenuous and low. CXR (05/23) reviewed: patchy left infiltrates with small pl eff'n. ICU logs and cardiology care plan reviewed and updated Objective Last 24 Hour Vital Signs Date Time Temp Pulse Resp B/P (MAP) Pulse Ox O2 Delivery O2 Flow Rate FiO2 05/28/20 00:00 100.1 119 22 100/53 (69) 99 05/28/20 00:00 Mechanical Ventilator Mechanical Ventilator 05/27/20 23:08 112 05/27/20 23:00 115 19 102/51 (68) 100 05/27/20 22:30 115 15 30 05/27/20 22:00 114 15 93/52 (66) 98 05/27/20 21:30 112 15 97/49 (65) 98 05/27/20 21:08 112 14 100 Mechanical Ventilator 30 111 14 05/27/20 21:06 113 97/53 05/27/20 21:00 115 19 97/53 (68) 99 05/27/20 20:30 117 22 99/52 (68) 99 05/27/20 20:00 100.3 115 19 93/52 (66) 99 05/27/20 20:00 Mechanical Ventilator Mechanical Ventilator 05/27/20 20:00 30 05/27/20 19:35 113 05/27/20 19:00 113 17 97/49 (65) 99 05/27/20 18:49 112 14 30 05/27/20 18:00 109 14 86/44 (58) 97 05/27/20 17:00 119 25 98/50 (66) 100 05/27/20 16:00 118 05/27/20 16:00 30 05/27/20 16:00 Mechanical Ventilator Mechanical Ventilator 05/27/20 16:00 100.9 05/27/20 16:00 100.9 118 14 93/47 (62) 99 05/27/20 15:19 118 17 100 Mechanical Ventilator 30 114 17 05/27/20 15:00 101.5 127 17 92/51 (65) 99 05/27/20 14:38 120 101/52 05/27/20 14:00 119 16 101/52 (68) 100 05/27/20 13:00 119 19 98/52 (67) 99 05/27/20 12:00 100.2 123 16 99/56 (70) 100 05/27/20 12:00 Mechanical Ventilator Mechanical Ventilator 05/27/20 12:00 30 05/27/20 12:00 115 05/27/20 11:17 115 14 98 Mechanical Ventilator 30 110 14 05/27/20 11:00 125 21 111/54 (73) 100 05/27/20 10:20 100.2 05/27/20 10:00 122 14 99/52 (68) 100 05/27/20 09:00 101.2 126 14 102/56 (71) 99 05/27/20 08:00 131 05/27/20 08:00 Mechanical Ventilator Mechanical Ventilator 05/27/20 08:00 129 17 99/57 (71) 99 05/27/20 08:00 30 05/27/20 07:39 131 14 30 05/27/20 07:00 127 18 97/54 (68) 99 05/27/20 06:00 123 15 98/50 (66) 98 05/27/20 05:51 124 106/58 05/27/20 05:00 121 20 106/55 (72) 99 05/27/20 04:00 30 05/27/20 04:00 100.3 121 21 100/63 (75) 99 05/27/20 04:00 Mechanical Ventilator Mechanical Ventilator 05/27/20 03:44 122 05/27/20 03:00 122 14 94/61 (72) 97 05/27/20 02:51 123 15 30 05/27/20 02:39 100.0 05/27/20 02:00 127 15 110/51 (70) 98 ROS: unchanged from my eval of 05/03/20 HEENT: Orally intubated, Mechanically Ventilated, Thin secretions ET Tube RHYTHM: Afib LUNGS: no accessory muscle use, expiratory wheezing, diminished breath sounds CARDIAC: normal S1 and S2, no murmur, irregularly irregular ABDOMEN: normal bowel sounds, non tender, soft, no organomegaly EXTREMITIES: no calf tenderness, +1 edema Laboratory Tests Test 05/27/20 04:00 05/27/20 12:11 05/27/20 17:34 05/27/20 23:43 White Blood Count 3.9 K/UL (4.8-10.8) L Red Blood Count 3.08 M/UL (4.20-5.40) L Hemoglobin 8.5 G/DL (12.0-16.0) L Hematocrit 25.8 % (37.0-47.0) L Mean Corpuscular Volume 84 FL (80-99) Mean Corpuscular Hemoglobin 27.6 PG (27.0-31.0) Mean Corpuscular Hemoglobin Concent 33.0 G/DL (32.0-36.0) Red Cell Distribution Width 17.6 % (11.6-14.8) H Platelet Count 153 K/UL (150-450) Mean Platelet Volume 6.8 FL (6.5-10.1) Neutrophils (%) (Auto) 66.3 % (45.0-75.0) Lymphocytes (%) (Auto) 21.4 % (20.0-45.0) Monocytes (%) (Auto) 5.2 % (1.0-10.0) Eosinophils (%) (Auto) 5.5 % (0.0-3.0) H Basophils (%) (Auto) 1.5 % (0.0-2.0) Prothrombin Time 12.4 SEC (9.30-11.50) H Prothromb Time International Ratio 1.1 (0.9-1.1) Activated Partial Thromboplast Time 28 SEC (23-33) Sodium Level 148 MMOL/L (136-145) H Potassium Level 4.1 MMOL/L (3.5-5.1) Chloride Level 113 MMOL/L (98-107) H Carbon Dioxide Level 28 MMOL/L (21-32) Anion Gap 7 mmol/L (5-15) Blood Urea Nitrogen 85 mg/dL (7-18) H Creatinine 2.2 MG/DL (0.55-1.30) H Estimat Glomerular Filtration Rate 25.9 mL/min (>60) Glucose Level 99 MG/DL (74-106) Calcium Level 8.2 MG/DL (8.5-10.1) L Total Bilirubin 0.9 MG/DL (0.2-1.0) Aspartate Amino Transf (AST/SGOT) 54 U/L (15-37) H Alanine Aminotransferase (ALT/SGPT) 122 U/L (12-78) H Alkaline Phosphatase 279 U/L (46-116) H Total Protein 5.3 G/DL (6.4-8.2) L Albumin 0.9 G/DL (3.4-5.0) L Globulin 4.4 g/dL Albumin/Globulin Ratio 0.2 (1.0-2.7) L POC Whole Blood Glucose 98 MG/DL (74-106) 121 MG/DL (74-106) H 143 MG/DL (74-106) H Microbiology Date/Time Source Procedure Growth Status 05/26/20 12:10 Blood Blood Culture - Preliminary NO GROWTH AFTER 24 HOURS Resulted 05/26/20 11:40 Nasopharynx SARS-CoV-2 RdRp Gene Assay - Final Complete 05/26/20 11:40 Sputum Induced Gram Stain - Final Resulted 05/26/20 11:40 Sputum Induced Sputum Culture Pending Resulted 05/25/20 16:37 Stool Clostridium difficile Toxin Assay - Final Complete Assessment/Plan Assessment/Plan Acute on chronic respiratory acidosis Acute respiratory failure Shock LE edema due to severe pulmonary hypertension and right heart strain COPD exacerb with active bronchospasm Lactic acidosis COVID 19 PNA Acute on chr renal failure Chronic systolic/diastolic CHF Pulmonary fibrosis with chronic hypoxia Paroxysmal AFib with RVR Hx Multifocal atrial arrhythmias Pulmonary HTN - severe Hx NSVTach Severe protein/calorie malnutrition Acute myocardial ischemia Worsening transaminitis CRITICAL & GUARDED Vent support with on-going weaning efforts following trach Hold diltiazem for low BP, but titrate for optimal rate control; cautiously add digoxin Steroids per pulmonary Inhaled bronchodilators Hypotonic IVF Full anticoagulation for cardioembolic prophyl Isolation Anti-viral rx per ID Monitor liver fxn Simone Perez MD May 28, 2020 01:59
[2020-05-28] MEDS: Meropenem 500 MG in NS 55 ML IVPB SCH ×2 (02:00→14:21)
[2020-05-28] MEDS: Acetaminophen 650mg/20.3ml NG PRN ×2 (02:00→23:17)
[2020-05-28] MEDS ORDERED: Digoxin 0.5mg/2ml Inj IVP SCH (02:15)
--- NOTE | 2020-05-28 02:30 | NUR ---
NURSE NOTES: 0.25mg digoxin given IV one time and 1/2NS IV fluids started at 75ml/hr per MD orders.
--- NOTE | 2020-05-28 04:00 | NUR ---
NURSE NOTES: Blood drawn peripherally and sent to lab for AM results. Tylenol PRN given for elevated temp of 100.6F axillary. Cooling measures on. Repositioned. Patient is comfortable.
[2020-05-28 05:00] LABS: BASOPHILS % (AUTO) 0.8 % (0.0-2.0); EOSINOPHILS % (AUTO) 3.2 % (0.0-3.0); HEMATOCRIT 24.6 % (37.0-47.0); LYMPHOCYTES % (AUTO) 16.2 % (20.0-45.0); MEAN CORPUSCULAR VOLUME 84 FL (80-99); MONOCYTES % (AUTO) 5.1 % (1.0-10.0); NEUTROPHILS % (AUTO) 74.8 % (45.0-75.0); PLATELET COUNT 173 K/UL (150-450); RED BLOOD COUNT 2.92 M/UL (4.20-5.40); RED CELL DISTRIBUTION WIDTH 17.8 % (11.6-14.8); WHITE BLOOD COUNT 5.5 K/UL (4.8-10.8)
[2020-05-28 05:26] LABS: ALBUMIN 0.9 G/DL (3.4-5.0); ALBUMIN/GLOBULIN RATIO 0.2 (1.0-2.7); BILIRUBIN,TOTAL 0.7 MG/DL (0.2-1.0); CALCIUM 8.4 MG/DL (8.5-10.1); CREATININE 2.4 MG/DL (0.55-1.30); POTASSIUM 4.2 MMOL/L (3.5-5.1)
[2020-05-28] MEDS: dilTIAZem HCl 60mg tab ORAL SCH ×3 (05:58→21:04)
--- NOTE | 2020-05-28 06:00 | NUR ---
NURSE NOTES: Temp went back up to 100.6F axillary. Tylenol not due, cooling measures replaced. Cool bath given, linens changes, oral care and suctioning provided. Turned and repositioned.
--- NOTE | 2020-05-28 07:19 | NUR ---
NURSE HAND-OFF REPORT: Latest Vital Signs: Temperature 100.6 , Pulse 104 , B/P 101 /47 , Respiratory Rate 14 , O2 SAT 98 , Mechanical Ventilator, O2 Flow Rate 4.0 . Vital Sign Comment: Stable EKG Rhythm: Sinus Tachycardia Rhythm change?: N Notified?: Tracy Linn MD Response: No New Orders Received Latest Lechuga Fall Score: 50 Fall Risk: High Risk Safety Measures: Call light Within Reach, Bed Alarm Zone 1, Side Rails Side Rails x3, Bed position Low and Locked. Fall Precautions: Door Sign Report given to .
--- NOTE | 2020-05-28 07:30 | NUR ---
NURSE NOTES: Patient received from Hailee SALGADO. Patient stable at this time with no s/sx of pain or distress. AOx1 able to express simple questions and able to follow commands. RR even and unlabored on ETT 7.5 20 lip line. Ventilator settings as ordered AC 14 500mL 30% P5. Cardiac sounds benign. Breath sounds diminished, rhoncus. Bowels sounds hyperactive. Feeding held at this time. Zero residual. NGT in place. BL radial pulses normal. Edema present to hands +2 trace to LE. Riojas in place draining well to gravity. Rectal tube in place. Fluids infusing to peripheral IV. Restraints on with good ROM, sensation and circulation. Dependent edema present and previously noted unrelated to restraints. Side rails upx2, bed low and locked.
[2020-05-28] MEDS: Ipratropium Bromide Inhaler INH SCH ×4 (07:57→21:14)
[2020-05-28] MEDS: Pantoprazole Inj IVP SCH (08:35)
[2020-05-28] MEDS: Wixela 100/50 Inhaler - 60 dose INH SCH ×2 (10:00→21:04)
--- NOTE | 2020-05-28 10:00 | NUR ---
NURSE NOTES: Feeding held at this time. Per surgeon okay to proceed with surgery even though patient though feeding was only stopped now. Patient repositioned. Refusing oral care.
--- NOTE | 2020-05-28 10:11 | Infectious Diseases Prog Note ---
Assessment/Plan Assessment/Plan A 1. COVID 19 pneumonia Test positive: 05/03 -05/09 2. renal failure 3. increased LFT 4. COPD 5. CHF, Diastolic & systolic 6. asthma 7. Cholelithiasis r/o cholecystitis 8. Hypoxic hypercapnic respiratory failure 9. Pseudomonas pneumonia treated 10. Sepsis 11. Funguria P 1. Continue Meropenem 2. Add Tobramycin inhaler 3. Will f/u cultures Subjective ROS Limited/Unobtainable: Yes Constitutional: Reports: fever, other - Wd=175.5 Allergies: Coded Allergies: CIPROFLOXACIN (Verified Allergy, Unknown, 09/27/17) Objective Last 24 Hour Vital Signs Date Time Temp Pulse Resp B/P (MAP) Pulse Ox O2 Delivery O2 Flow Rate FiO2 05/28/20 09:00 107 14 109/48 (68) 99 05/28/20 08:00 30 05/28/20 08:00 Mechanical Ventilator Mechanical Ventilator 05/28/20 08:00 98.7 103 15 110/48 (68) 99 05/28/20 07:38 104 16 100 Mechanical Ventilator 30 102 16 05/28/20 07:00 104 14 101/47 (65) 98 05/28/20 06:00 106 14 104/47 (66) 99 05/28/20 05:58 107 91/45 05/28/20 05:00 108 16 101/47 (65) 99 05/28/20 04:00 Mechanical Ventilator Mechanical Ventilator 05/28/20 04:00 30 05/28/20 04:00 100.6 111 17 99/46 (63) 98 05/28/20 03:11 111 05/28/20 03:00 110 17 99/49 (66) 98 05/28/20 02:42 109 14 30 05/28/20 02:30 100.1 05/28/20 02:27 115 05/28/20 02:00 114 15 94/50 (65) 98 05/28/20 01:00 117 18 103/51 (68) 99 05/28/20 00:00 100.1 119 22 100/53 (69) 99 05/28/20 00:00 Mechanical Ventilator Mechanical Ventilator 05/27/20 23:08 112 05/27/20 23:00 115 19 102/51 (68) 100 05/27/20 22:30 115 15 30 05/27/20 22:00 114 15 93/52 (66) 98 05/27/20 21:30 112 15 97/49 (65) 98 05/27/20 21:08 112 14 100 Mechanical Ventilator 30 111 14 05/27/20 21:06 113 97/53 05/27/20 21:00 115 19 97/53 (68) 99 05/27/20 20:30 117 22 99/52 (68) 99 05/27/20 20:00 100.3 115 19 93/52 (66) 99 05/27/20 20:00 Mechanical Ventilator Mechanical Ventilator 05/27/20 20:00 30 05/27/20 19:35 113 05/27/20 19:00 113 17 97/49 (65) 99 05/27/20 18:49 112 14 30 05/27/20 18:00 109 14 86/44 (58) 97 05/27/20 17:00 119 25 98/50 (66) 100 05/27/20 16:00 118 05/27/20 16:00 30 05/27/20 16:00 Mechanical Ventilator Mechanical Ventilator 05/27/20 16:00 100.9 05/27/20 16:00 100.9 118 14 93/47 (62) 99 05/27/20 15:19 118 17 100 Mechanical Ventilator 30 114 17 05/27/20 15:00 101.5 127 17 92/51 (65) 99 05/27/20 14:38 120 101/52 05/27/20 14:00 119 16 101/52 (68) 100 05/27/20 13:00 119 19 98/52 (67) 99 05/27/20 12:00 100.2 123 16 99/56 (70) 100 05/27/20 12:00 Mechanical Ventilator Mechanical Ventilator 05/27/20 12:00 30 05/27/20 12:00 115 05/27/20 11:17 115 14 98 Mechanical Ventilator 30 110 14 05/27/20 11:00 125 21 111/54 (73) 100 05/27/20 10:20 100.2 Height (Feet): 5 Height (Inches): 3.00 Weight (Pounds): 160 HEENT: other - orally intubated Respiratory/Chest: other - on ventilator Cardiovascular: tachycardia Abdomen: soft, non tender, other - NG tube feeding Extremities: other - edema Neurologic/Psychiatric: unresponsiveness Microbiology Date/Time Source Procedure Growth Status 05/26/20 12:10 Blood Blood Culture - Preliminary NO GROWTH AFTER 24 HOURS Resulted 05/26/20 12:00 Urine,Clean Catch Urine Culture - Final Sherly Species Complete 05/26/20 11:40 Nasopharynx SARS-CoV-2 RdRp Gene Assay - Final Complete 05/26/20 11:40 Sputum Induced Gram Stain - Final Resulted 05/26/20 11:40 Sputum Culture - Preliminary Gram Negative Bacillus 1 Resulted 05/25/20 16:37 Stool Clostridium difficile Toxin Assay - Final Complete Laboratory Tests Test 05/27/20 12:11 05/27/20 17:34 05/27/20 23:43 05/28/20 04:00 POC Whole Blood Glucose 98 MG/DL (74-106) 121 MG/DL (74-106) H 143 MG/DL (74-106) H White Blood Count 5.5 K/UL (4.8-10.8) Red Blood Count 2.92 M/UL (4.20-5.40) L Hemoglobin 8.0 G/DL (12.0-16.0) L Hematocrit 24.6 % (37.0-47.0) L Mean Corpuscular Volume 84 FL (80-99) Mean Corpuscular Hemoglobin 27.4 PG (27.0-31.0) Mean Corpuscular Hemoglobin Concent 32.5 G/DL (32.0-36.0) Red Cell Distribution Width 17.8 % (11.6-14.8) H Platelet Count 173 K/UL (150-450) Mean Platelet Volume 6.8 FL (6.5-10.1) Neutrophils (%) (Auto) 74.8 % (45.0-75.0) Lymphocytes (%) (Auto) 16.2 % (20.0-45.0) L Monocytes (%) (Auto) 5.1 % (1.0-10.0) Eosinophils (%) (Auto) 3.2 % (0.0-3.0) H Basophils (%) (Auto) 0.8 % (0.0-2.0) Sodium Level 148 MMOL/L (136-145) H Potassium Level 4.2 MMOL/L (3.5-5.1) Chloride Level 114 MMOL/L (98-107) H Carbon Dioxide Level 29 MMOL/L (21-32) Anion Gap 5 mmol/L (5-15) Blood Urea Nitrogen 82 mg/dL (7-18) H Creatinine 2.4 MG/DL (0.55-1.30) H Estimat Glomerular Filtration Rate 23.5 mL/min (>60) Glucose Level 114 MG/DL (74-106) H Calcium Level 8.4 MG/DL (8.5-10.1) L Total Bilirubin 0.7 MG/DL (0.2-1.0) Aspartate Amino Transf (AST/SGOT) 54 U/L (15-37) H Alanine Aminotransferase (ALT/SGPT) 103 U/L (12-78) H Alkaline Phosphatase 290 U/L (46-116) H Total Protein 4.7 G/DL (6.4-8.2) L Albumin 0.9 G/DL (3.4-5.0) L Globulin 3.8 g/dL Albumin/Globulin Ratio 0.2 (1.0-2.7) L Current Medications Medications (Trade) Dose Ordered Sig/Ghislaine Route PRN Reason Start Time Stop Time Status Last Admin Dose Admin Acetaminophen (Tylenol) 500 mg Q4H PRN ORAL Mild Pain (Pain Scale 1-3) 05/11/20 20:00 06/02/20 19:59 05/27/20 09:50 Acetaminophen (Tylenol) 650 mg Q4H PRN NG Temp >100.5 05/25/20 16:15 06/24/20 16:14 05/28/20 02:00 Albuterol Sulfate (Proventil MDI) 2 puff Q4H PRN INH Shortness of Breath 05/11/20 20:00 08/01/20 11:59 05/13/20 10:30 Dextrose (Dextrose 50%) 25 ml Q30M PRN IV Hypoglycemia 05/22/20 18:30 08/20/20 18:29 Dextrose (Dextrose 50%) 50 ml Q30M PRN IV Hypoglycemia 05/22/20 18:30 08/20/20 18:29 Diltiazem HCl (Cardizem Tab) 60 mg EVERY 8 HOURS ORAL 05/16/20 06:00 06/15/20 05:59 05/27/20 14:38 Insulin Aspart (NovoLOG) Q6HR SUBQ 05/23/20 00:00 08/20/20 20:59 05/28/20 06:18 Ipratropium [place] (Atrovent Inh) 1 puffs QID INH 05/27/20 10:00 06/26/20 09:59 05/28/20 07:57 Loperamide HCl (Imodium) 2 mg Q6H PRN NG Diarrhea 05/26/20 17:45 06/25/20 17:44 05/27/20 10:52 Meropenem 500 mg/ Sodium Chloride 55 ml @ 110 mls/hr Q12HR@0200,1400 IVPB 05/26/20 14:00 05/31/20 13:59 05/28/20 02:00 Pantoprazole (Protonix) 40 mg DAILY IVP 05/28/20 09:00 06/27/20 08:59 05/28/20 08:35 Salmeterol Xinafoate/ Fluticasone (Advair 100/50 Diskus) 1 puffs BIDRT INH 05/11/20 22:00 08/09/20 21:59 05/16/20 09:02 Sodium Chloride 1,000 ml @ 75 mls/hr [id number] IV 05/28/20 02:15 06/27/20 02:14 05/28/20 02:27 Freddy Woodson MD May 28, 2020 10:11
[2020-05-28] MEDS ORDERED: fentaNYL 100 mcg/2 mL IV ONE (10:14)
[2020-05-28] MEDS ORDERED: Lidocaine 1% 10mg/ml/Epi 0.005mg/ml 30ml vial INJ ONE (10:18)
[2020-05-28] MEDS ORDERED: Sterile Water Irrig 1000ml IRRIG ONE (11:00)
[2020-05-28] MEDS ORDERED: Rocuronium Bromide 50mg/5ml Inj IV ONE (11:00)
[2020-05-28] MEDS ORDERED: NS Irrig 1000ml ONE (11:00)
--- NOTE | 2020-05-28 11:31 | NUR ---
NURSE NOTES: Patient taken down for tracheostomy. VSS. Dr. Brown spoke with daughter about anesthesia prior and also walked patient down.
--- NOTE | 2020-05-28 12:14 | Immediate Post-Op Evaluation ---
Immediate Post-Op Evalulation Immediate Post-Op Evalulation Procedure: Tracheostomy Date of Evaluation: May 28, 2020 Time of Evaluation: 12:13 IV Fluids: 150 Blood Products: none Estimated Blood Loss: min Urinary Output: none Blood Pressure Systolic: 102 Blood Pressure Diastolic: 56 Pulse Rate: 102 Respiratory Rate: 19 O2 Sat by Pulse Oximetry: 99 Temperature (Fahrenheit): 97.6 Pain Score (1-10): 1 Nausea: No Vomiting: No Complications none Patient Status: no response, ventilated, none Hydration Status: adequate Stone Brown MD May 28, 2020 12:14
--- NOTE | 2020-05-28 12:30 | Brief Operative Note ---
Immediate Post Operative Note Operative Note Pre-op Diagnosis: respiratory insufficiency covid + Procedure: trach Post-op Diagnosis: same as pre-op Surgeon: megan Anesthesiologist: talia Anesthesia: general, local Specimen: none Complications: none Condition: stable Fluids: see Estimated Blood Loss: minimal Drains: none Implant(s) used?: No Quentin Sanchez May 28, 2020 12:30
--- NOTE | 2020-05-28 12:31 | Surgery Progress Note ---
Surgery Progress Note Subjective Procedure Performed trach Additional Comments trach today discussed with family Objective Last 24 Hour Vital Signs Date Time Temp Pulse Resp B/P (MAP) Pulse Ox O2 Delivery O2 Flow Rate FiO2 05/28/20 12:14 102 19 99 05/28/20 11:04 91 14 30 05/28/20 11:00 97 14 103/51 (68) 99 05/28/20 10:00 98 14 105/56 (72) 99 05/28/20 09:00 107 14 109/48 (68) 99 05/28/20 08:00 30 05/28/20 08:00 Mechanical Ventilator Mechanical Ventilator 05/28/20 08:00 98.7 103 15 110/48 (68) 99 05/28/20 08:00 78 05/28/20 07:38 104 16 100 Mechanical Ventilator 30 102 16 05/28/20 07:00 104 14 101/47 (65) 98 05/28/20 06:00 106 14 104/47 (66) 99 05/28/20 05:58 107 91/45 05/28/20 05:00 108 16 101/47 (65) 99 05/28/20 04:00 Mechanical Ventilator Mechanical Ventilator 05/28/20 04:00 30 05/28/20 04:00 100.6 111 17 99/46 (63) 98 05/28/20 03:11 111 05/28/20 03:00 110 17 99/49 (66) 98 05/28/20 02:42 109 14 30 05/28/20 02:30 100.1 05/28/20 02:27 115 05/28/20 02:00 114 15 94/50 (65) 98 05/28/20 01:00 117 18 103/51 (68) 99 05/28/20 00:00 100.1 119 22 100/53 (69) 99 05/28/20 00:00 Mechanical Ventilator Mechanical Ventilator 05/27/20 23:08 112 05/27/20 23:00 115 19 102/51 (68) 100 05/27/20 22:30 115 15 30 05/27/20 22:00 114 15 93/52 (66) 98 05/27/20 21:30 112 15 97/49 (65) 98 05/27/20 21:08 112 14 100 Mechanical Ventilator 30 111 14 05/27/20 21:06 113 97/53 05/27/20 21:00 115 19 97/53 (68) 99 05/27/20 20:30 117 22 99/52 (68) 99 05/27/20 20:00 100.3 115 19 93/52 (66) 99 05/27/20 20:00 Mechanical Ventilator Mechanical Ventilator 05/27/20 20:00 30 05/27/20 19:35 113 05/27/20 19:00 113 17 97/49 (65) 99 05/27/20 18:49 112 14 30 05/27/20 18:00 109 14 86/44 (58) 97 05/27/20 17:00 119 25 98/50 (66) 100 05/27/20 16:00 118 05/27/20 16:00 30 05/27/20 16:00 Mechanical Ventilator Mechanical Ventilator 05/27/20 16:00 100.9 05/27/20 16:00 100.9 118 14 93/47 (62) 99 05/27/20 15:19 118 17 100 Mechanical Ventilator 30 114 17 05/27/20 15:00 101.5 127 17 92/51 (65) 99 05/27/20 14:38 120 101/52 05/27/20 14:00 119 16 101/52 (68) 100 05/27/20 13:00 119 19 98/52 (67) 99 I&O Intake and Output 05/27/20 05/28/20 19:00 07:00 Intake Total 440 ml 936.25 ml Output Total 710 ml 855 ml Balance -270 ml 81.25 ml Free Water 60 ml IV Total 396.25 ml Tube Feeding 440 ml 480 ml Output Urine Total 510 ml 580 ml Stool Total 200 ml 275 ml Dressing: other Wound: other Cardiovascular: RSR Respiratory: decreased breath sounds Abdomen: soft, non-tender, present bowel sounds Extremities: no tenderness, no cyanosis Laboratory Tests Test 05/27/20 17:34 05/27/20 23:43 05/28/20 04:00 POC Whole Blood Glucose 121 MG/DL (74-106) H 143 MG/DL (74-106) H White Blood Count 5.5 K/UL (4.8-10.8) Red Blood Count 2.92 M/UL (4.20-5.40) L Hemoglobin 8.0 G/DL (12.0-16.0) L Hematocrit 24.6 % (37.0-47.0) L Mean Corpuscular Volume 84 FL (80-99) Mean Corpuscular Hemoglobin 27.4 PG (27.0-31.0) Mean Corpuscular Hemoglobin Concent 32.5 G/DL (32.0-36.0) Red Cell Distribution Width 17.8 % (11.6-14.8) H Platelet Count 173 K/UL (150-450) Mean Platelet Volume 6.8 FL (6.5-10.1) Neutrophils (%) (Auto) 74.8 % (45.0-75.0) Lymphocytes (%) (Auto) 16.2 % (20.0-45.0) L Monocytes (%) (Auto) 5.1 % (1.0-10.0) Eosinophils (%) (Auto) 3.2 % (0.0-3.0) H Basophils (%) (Auto) 0.8 % (0.0-2.0) Sodium Level 148 MMOL/L (136-145) H Potassium Level 4.2 MMOL/L (3.5-5.1) Chloride Level 114 MMOL/L (98-107) H Carbon Dioxide Level 29 MMOL/L (21-32) Anion Gap 5 mmol/L (5-15) Blood Urea Nitrogen 82 mg/dL (7-18) H Creatinine 2.4 MG/DL (0.55-1.30) H Estimat Glomerular Filtration Rate 23.5 mL/min (>60) Glucose Level 114 MG/DL (74-106) H Calcium Level 8.4 MG/DL (8.5-10.1) L Total Bilirubin 0.7 MG/DL (0.2-1.0) Aspartate Amino Transf (AST/SGOT) 54 U/L (15-37) H Alanine Aminotransferase (ALT/SGPT) 103 U/L (12-78) H Alkaline Phosphatase 290 U/L (46-116) H Total Protein 4.7 G/DL (6.4-8.2) L Albumin 0.9 G/DL (3.4-5.0) L Globulin 3.8 g/dL Albumin/Globulin Ratio 0.2 (1.0-2.7) L Plan Problems: (1) Elevated troponin (2) Atrial fibrillation with RVR (3) COVID-19 Assessment & Plan: ++ as per pulm and ID trach DAILY ESTIMATED NEEDS: Needs based on Critical Care, ARF/ 56kg abw 22-28 kcals/kg [id number] total kcals 0.8-1.5 (increase w/ renal improvement) g protein/kg 45-84 g total protein 25-30 mL/kg [id number] total fluid mLs NUTRITION DIAGNOSIS: * Altered nutrition related lab values r/t clinical status as evidenced by elev BUN(82), creat(3.8) trending up, critical ABG (low pH, elev CO2)-> now improved. * Swallowing difficulty R/T respiratory status as evidenced by s/p oral intubation, on OGT feeds. 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: PAD EXTRACTOR TENDER eval post extubation ENTERAL NUTRITION RECOMMENDATIONS: Nepro @ 35ml/hr x 24 hrs to provide 840ml, 1512kcal, 68g prot, 610ml free water * W/ worsening renal fxn, rec to continue Nepro * As tolerated, increase goal rate to 35ml/hr x 24 hrs to meet 100% est kcal/prot needs ADDITIONAL RECOMMENDATIONS: 1) Calibrated bedscale wt 2) Monitor renal fxn and lytes, need to continue Nepro Creat trending up 3) Rec niss w/ solumedrol (4) Community acquired pneumonia (5) COPD (chronic obstructive pulmonary disease) (6) Pulmonary fibrosis (7) Asthma (8) History of asthma (9) NSTEMI (non-ST elevated myocardial infarction) (10) Moderate to severe pulmonary hypertension (11) Asthma exacerbation (12) Abnormal LFTs Assessment & Plan: afebrile, HD stable labs noted lft's elevated US reviewed exam benign gb likely reactive from underlying pathology unlikely cholecystitis clinically fluid overload trend labs will monitor exam clinically covid + prognosis guarded cxr reviewed on abx worsening plan repeat US - noted cannot get hida given covid labs noted worsening leukocytosis Gallbladder demonstrates wall thickening and wall edema, gallbladder wall measuring up to 6 mm thick. There are gallstones. Sonographic Escoto's sign is negative. Common bile duct measures 3 mm in diameter. No intrahepatic biliary ductal dilatation. Liver demonstrates normal echogenicity, no focal abnormality. Portal vein and hepatic veins are patent. Pancreas is unremarkable. Spleen is unremarkable. Left kidney measures 9.2 cm in length. Right kidney measures 9.9 cm length. Both kidneys demonstrate normal echogenicity. There is no hydronephrosis. Small cyst is seen in the right kidney. . Abdominal aorta was not imaged . There is trace ascites. There is a small right pleural effusion incidentally noted Impression: Small right pleural effusion. Trace ascites Cholelithiasis. Gallbladder wall thickening may be related to hemodynamic fa ctors causing the pleural fluid and ascites, but could also indicate acute cholecystitis. Consider nuclear medicine hepatobiliary scan if there is high clinical suspicion. Negative for dilated bile ducts Small right renal cyst incidentally noted (13) Acute respiratory failure with hypoxia Quentin Sanchez May 28, 2020 12:31
--- NOTE | 2020-05-28 12:33 | Operative Note - PDOC ---
Operative Note Operative Note Date of Operation/Procedure: May 28, 2020 Pre-op Diagnosis: respiratory insufficiency covid + Procedure: trach Post-op Diagnosis: same as pre-op Surgeon: megna Anesthesiologist: talia Anesthesia: general, local Specimen: none Complications: none Condition: stable Fluids: see Estimated Blood Loss: minimal Drains: none Implant(s) used?: No Description of Procedure DATE OF OPERATION: 05/28/2020 PREOPERATIVE DIAGNOSES: 1. Respiratory insufficiency requiring prolonged ventilatory support. 2. COVID positive. POSTOPERATIVE DIAGNOSES: 1. Respiratory insufficiency requiring prolonged ventilatory support. 2. COVID positive. OPERATION PERFORMED: Tracheostomy. ATTENDING SURGEON: Quentin Sanchez MD. THIRD OFFICER: None. ANESTHESIOLOGIST: Guanakito Brown MD. ANESTHESIA: General GETA plus local. ESTIMATED BLOOD LOSS: Minimal. IV FLUIDS: Please see anesthesia records. COMPLICATIONS: None. DRAINS: None. COUNTS: Sponge and needle count correct x2. WOUND CLASSIFICATION: Class 3. IMPLANTS: An 8-Martiniquais Shiley tracheostomy. INDICATIONS FOR PROCEDURE: This is a 80-year-old female with multiple medical comorbidities, currently in intensive care unit, for sometime in [facility], unable to wean from ventilator support safely. tracheostomy was indicated and recommended. After evaluation, medical necessity was identified given the patient's condition and care plan and therefore was scheduled for 05/27/2020. consent from daughter OPERATIVE NOTE: The patient was taken to the operating room and placed on the operating table supine position with bilateral arms down. Shoulder roll placed. All preoperative COVID evaluation and intra and postoperative COVID evaluation and care plan was initiated with drapes, gowns, mask, and personal protective equipment. All staff were protected. All staff were aware and all care was taken throughout the procedure. The patient was already intubated when entering the operating room. A shoulder roll was placed. Neck was hyperextended and the neck was prepped, and draped in standard surgical fashion. Anatomical landmarks identified. Local anesthetic infiltrated. Skin incision made two fingerbreadths above the sternal notch and carried down to the subcutaneous tissue, platysma to the median raphae. Median raphe was divided and the strap muscles were mobilized laterally. The trachea was identified and the first and second and third tracheal rings were dissected out. A window was made between the first and second tracheal rings and the ET tube was identified. ET tube was withdrawn by the anesthesiologist and once above the level of the cords, a 8-Martiniquais Shiley tracheostomy was inserted under direct visualization without complication. Shiley tracheostomy balloon was insufflated and the patient was ventilated through the tracheostomy with good end-tidal CO2 volumes. Deep suctioning was performed. The skin incision laterally was reapproximated using 2-0 Monocryl sutures followed by 2-0 nylon suture for the tracheostomy to the skin. Trach ties were applied. Dressings applied. The patient tolerated the procedure well and was taken directly to the intensive care unit in stable condition. Anneliese Taveras Pouya May 28, 2020 12:33
--- NOTE | 2020-05-28 12:40 | NUR ---
NURSE NOTES: Patient received from [facility]. Dr. Brown also at [facility]. Tracheostomy site dry and intact with no bleeding. Vent settings same as before. Trach is roberth 8.
[2020-05-28] MEDS ORDERED: 1/2 NS 1000ml IV ONE (14:19)
[2020-05-28] MEDS ORDERED: NS 275ml ONE (14:19)
[2020-05-28] MEDS ORDERED: Tubing IV Secondary IV ONE (14:26)
--- NOTE | 2020-05-28 15:00 | NUR ---
NURSE NOTES: Patient remains stable. No s/sx of pain or distress. Per patient, when asked if she had pain she shook her head no.
--- NOTE | 2020-05-28 16:18 | General Progress Note ---
Subjective ROS Limited/Unobtainable: Yes Constitutional: Reports: fever, malaise, weakness HEENT: Reports: no symptoms Cardiovascular: Reports: no symptoms Respiratory: Reports: sputum Gastrointestinal/Abdominal: Reports: difficulty swallowing Genitourinary: Reports: no symptoms Neurologic/Psychiatric: Reports: no symptoms Endocrine: Reports: no symptoms Hematologic/Lymphatic: Reports: anemia Allergies: Coded Allergies: CIPROFLOXACIN (Verified Allergy, Unknown, 09/27/17) All Systems: reviewed and negative except above Subjective no events. stable on the vent. + diarrhea. + low grade fevers. failed weaning multiple times- simv/cpap. Objective Last 24 Hour Vital Signs Date Time Temp Pulse Resp B/P (MAP) Pulse Ox O2 Delivery O2 Flow Rate FiO2 05/28/20 15:00 108 14 105/45 (65) 100 05/28/20 14:00 110 14 112/48 (69) 100 05/28/20 13:00 108 14 106/48 (67) 100 05/28/20 12:30 30 05/28/20 12:14 102 19 99 05/28/20 12:00 Mechanical Ventilator Mechanical Ventilator 05/28/20 12:00 110 14 97/45 (62) 96 05/28/20 12:00 110 05/28/20 12:00 30 05/28/20 11:04 91 14 30 05/28/20 11:00 97 14 103/51 (68) 99 05/28/20 10:00 98 14 105/56 (72) 99 05/28/20 09:00 107 14 109/48 (68) 99 05/28/20 08:00 30 05/28/20 08:00 Mechanical Ventilator Mechanical Ventilator 05/28/20 08:00 98.7 103 15 110/48 (68) 99 05/28/20 08:00 78 05/28/20 07:38 104 16 100 Mechanical Ventilator 30 102 16 05/28/20 07:00 104 14 101/47 (65) 98 05/28/20 06:00 106 14 104/47 (66) 99 05/28/20 05:58 107 91/45 05/28/20 05:00 108 16 101/47 (65) 99 05/28/20 04:00 Mechanical Ventilator Mechanical Ventilator 05/28/20 04:00 30 05/28/20 04:00 100.6 111 17 99/46 (63) 98 05/28/20 03:11 111 05/28/20 03:00 110 17 99/49 (66) 98 05/28/20 02:42 109 14 30 05/28/20 02:30 100.1 05/28/20 02:27 115 05/28/20 02:00 114 15 94/50 (65) 98 05/28/20 01:00 117 18 103/51 (68) 99 05/28/20 00:00 100.1 119 22 100/53 (69) 99 05/28/20 00:00 Mechanical Ventilator Mechanical Ventilator 05/27/20 23:08 112 05/27/20 23:00 115 19 102/51 (68) 100 05/27/20 22:30 115 15 30 05/27/20 22:00 114 15 93/52 (66) 98 05/27/20 21:30 112 15 97/49 (65) 98 05/27/20 21:08 112 14 100 Mechanical Ventilator 30 111 14 05/27/20 21:06 113 97/53 05/27/20 21:00 115 19 97/53 (68) 99 05/27/20 20:30 117 22 99/52 (68) 99 05/27/20 20:00 100.3 115 19 93/52 (66) 99 05/27/20 20:00 Mechanical Ventilator Mechanical Ventilator 05/27/20 20:00 30 05/27/20 19:35 113 05/27/20 19:00 113 17 97/49 (65) 99 05/27/20 18:49 112 14 30 05/27/20 18:00 109 14 86/44 (58) 97 05/27/20 17:00 119 25 98/50 (66) 100 Intake and Output 05/27/20 05/28/20 19:00 07:00 Intake Total 440 ml 936.25 ml Output Total 710 ml 855 ml Balance -270 ml 81.25 ml Free Water 60 ml IV Total 396.25 ml Tube Feeding 440 ml 480 ml Output Urine Total 510 ml 580 ml Stool Total 200 ml 275 ml Laboratory Tests 05/27/20 17:34: POC Whole Blood Glucose 121H 05/27/20 23:43: POC Whole Blood Glucose 143H 05/28/20 04:00: White Blood Count 5.5, Red Blood Count 2.92L, Hemoglobin 8.0L, Hematocrit 24.6L, Mean Corpuscular Volume 84, Mean Corpuscular Hemoglobin 27.4, Mean Corpuscular Hemoglobin Concent 32.5, Red Cell Distribution Width 17.8H, Platelet Count 173, Mean Platelet Volume 6.8, Neutrophils (%) (Auto) 74.8, Lymphocytes (%) (Auto) 16.2L, Monocytes (%) (Auto) 5.1, Eosinophils (%) (Auto) 3.2H, Basophils (%) (Auto) 0.8, Sodium Level 148H, Potassium Level 4.2, Chloride Level 114H, Carbon Dioxide Level 29, Anion Gap 5, Blood Urea Nitrogen 82H, Creatinine 2.4H, Estimat Glomerular Filtration Rate 23.5, Glucose Level 114H, Calcium Level 8.4L, Total B ilirubin 0.7, Aspartate Amino Transf (AST/SGOT) 54H, Alanine Aminotransferase (ALT/SGPT) 103H, Alkaline Phosphatase 290H, Total Protein 4.7L, Albumin 0.9L, Globulin 3.8, Albumin/Globulin Ratio 0.2L Height (Feet): 5 Height (Inches): 3.00 Weight (Pounds): 174 Objective General Appearance: WD/WN, no apparent distress, alert. orally intubated EENT: PERRL/EOMI Neck: non-tender, normal alignment, supple Cardiovascular: normal rate, regular rhythm Respiratory/Chest: chest wall non-tender, lungs clear, normal breath sounds, no respiratory distress, no accessory muscle use Abdomen: normal bowel sounds, non tender, soft, no organomegaly Edema: no edema noted Arm (L), no edema noted Arm (R) Neurologic: studio grip II-XII grossly normal, alert, oriented x 3, responsive Skin: normal pigmentation Lymphatic: normal anterior cervical (L), normal anterior cervical (R) Assessment/Plan Problem List: (1) Pulmonary fibrosis ICD Codes: J84.10 - Pulmonary fibrosis, unspecified SNOMED: 86473066 (2) History of asthma ICD Codes: Z87.09 - Personal history of other diseases of the respiratory system SNOMED: 940527138 (3) Asthma ICD Codes: J45.909 - Unspecified asthma, uncomplicated SNOMED: 386700934 (4) NSTEMI (non-ST elevated myocardial infarction) ICD Codes: I21.4 - Non-ST elevation (NSTEMI) myocardial infarction SNOMED: 103933150 (5) Elevated troponin ICD Codes: R79.89 - Other specified abnormal findings of blood chemistry SNOMED: 010328075, 284902017, 692809321 (6) COPD (chronic obstructive pulmonary disease) ICD Codes: J44.9 - Chronic obstructive pulmonary disease, unspecified SNOMED: 17197173 (7) Atrial fibrillation with RVR ICD Codes: I48.91 - Unspecified atrial fibrillation SNOMED: 081497216315552 (8) Community acquired pneumonia ICD Codes: J18.9 - Pneumonia, unspecified organism SNOMED: 109108066 Status: stable Assessment/Plan: cont iv abx fluconazole for fungal uti water flushes via ngt monitor renal fxn/lytes ngt feeds tylenol for fever wean vent as able BP rx keep dry cardizem for rate control dvt/stress ulcer prophylaxis skin care imodium check stool culture trach care eliquis and aspirin on hold for procedures turn q2 critical and guarded Bradford Linn MD May 28, 2020 16:18
--- NOTE | 2020-05-28 17:00 | NUR ---
Patient cleaned. Refused pillow to be changed and oral care.
--- NOTE | 2020-05-28 17:10 | Nephrology Progress Note ---
Assessment/Plan Plan Severe Prerenal Azotemia due to hypoperfusion. GFR seems to be slightly improving. MOF due to Covid 19 MOF. Subjective Subjective Confused Objective Objective Last 24 Hour Vital Signs Date Time Temp Pulse Resp B/P (MAP) Pulse Ox O2 Delivery O2 Flow Rate FiO2 05/28/20 16:00 116 05/28/20 15:37 113 16 100 Mechanical Ventilator 30 113 16 05/28/20 15:00 108 14 105/45 (65) 100 05/28/20 14:00 110 14 112/48 (69) 100 05/28/20 13:00 108 14 106/48 (67) 100 05/28/20 12:30 30 05/28/20 12:14 102 19 99 05/28/20 12:00 Mechanical Ventilator Mechanical Ventilator 05/28/20 12:00 110 14 97/45 (62) 96 05/28/20 12:00 110 05/28/20 12:00 30 05/28/20 11:04 91 14 30 05/28/20 11:00 97 14 103/51 (68) 99 05/28/20 10:00 98 14 105/56 (72) 99 05/28/20 09:00 107 14 109/48 (68) 99 05/28/20 08:00 30 05/28/20 08:00 Mechanical Ventilator Mechanical Ventilator 05/28/20 08:00 98.7 103 15 110/48 (68) 99 05/28/20 08:00 78 05/28/20 07:38 104 16 100 Mechanical Ventilator 30 102 16 05/28/20 07:00 104 14 101/47 (65) 98 05/28/20 06:00 106 14 104/47 (66) 99 05/28/20 05:58 107 91/45 05/28/20 05:00 108 16 101/47 (65) 99 05/28/20 04:00 Mechanical Ventilator Mechanical Ventilator 05/28/20 04:00 30 05/28/20 04:00 100.6 111 17 99/46 (63) 98 05/28/20 03:11 111 05/28/20 03:00 110 17 99/49 (66) 98 05/28/20 02:42 109 14 30 05/28/20 02:30 100.1 05/28/20 02:27 115 05/28/20 02:00 114 15 94/50 (65) 98 05/28/20 01:00 117 18 103/51 (68) 99 05/28/20 00:00 100.1 119 22 100/53 (69) 99 05/28/20 00:00 Mechanical Ventilator Mechanical Ventilator 05/27/20 23:08 112 05/27/20 23:00 115 19 102/51 (68) 100 05/27/20 22:30 115 15 30 05/27/20 22:00 114 15 93/52 (66) 98 05/27/20 21:30 112 15 97/49 (65) 98 05/27/20 21:08 112 14 100 Mechanical Ventilator 30 111 14 05/27/20 21:06 113 97/53 05/27/20 21:00 115 19 97/53 (68) 99 05/27/20 20:30 117 22 99/52 (68) 99 05/27/20 20:00 100.3 115 19 93/52 (66) 99 05/27/20 20:00 Mechanical Ventilator Mechanical Ventilator 05/27/20 20:00 30 05/27/20 19:35 113 05/27/20 19:00 113 17 97/49 (65) 99 05/27/20 18:49 112 14 30 05/27/20 18:00 109 14 86/44 (58) 97 Intake and Output 05/27/20 05/28/20 19:00 07:00 Intake Total 440 ml 936.25 ml Output Total 710 ml 855 ml Balance -270 ml 81.25 ml Free Water 60 ml IV Total 396.25 ml Tube Feeding 440 ml 480 ml Output Urine Total 510 ml 580 ml Stool Total 200 ml 275 ml Laboratory Tests 05/27/20 17:34: POC Whole Blood Glucose 121H 05/27/20 23:43: POC Whole Blood Glucose 143H 05/28/20 04:00: White Blood Count 5.5, Red Blood Count 2.92L, Hemoglobin 8.0L, Hematocrit 24.6L, Mean Corpuscular Volume 84, Mean Corpuscular Hemoglobin 27.4, Mean Corpuscular Hemoglobin Concent 32.5, Red Cell Distribution Width 17.8H, Platelet Count 173, Mean Platelet Volume 6.8, Neutrophils (%) (Auto) 74.8, Lymphocytes (%) (Auto) 16 .2L, Monocytes (%) (Auto) 5.1, Eosinophils (%) (Auto) 3.2H, Basophils (%) (Auto) 0.8, Sodium Level 148H, Potassium Level 4.2, Chloride Level 114H, Carbon Dioxide Level 29, Anion Gap 5, Blood Urea Nitrogen 82H, Creatinine 2.4H, Estimat Glomerular Filtration Rate 23.5, Glucose Level 114H, Calcium Level 8.4L, Total Bilirubin 0.7, Aspartate Amino Transf (AST/SGOT) 54H, Alanine Aminotransferase (ALT/SGPT) 103H, Alkaline Phosphatase 290H, Total Protein 4.7L, Albumin 0.9L, Globulin 3.8, Albumin/Globulin Ratio 0.2L Height (Feet): 5 Height (Inches): 3.00 Weight (Pounds): 174 Objective CV Tach +Irr Lungs B Ronchi Abd SNT. BS + E +3 edema Ruth Coyne MD May 28, 2020 17:10
--- NOTE | 2020-05-28 17:56 | Pulmonology Progress Note ---
Subjective ROS Limited/Unobtainable: Yes Constitutional: Reports: fever, other - Id=[id number] Musculoskeletal: Denies: pain Allergies: Coded Allergies: CIPROFLOXACIN (Verified Allergy, Unknown, 09/27/17) All Systems: reviewed and negative except above Subjective on vent- awaiting trach hypotensive and tachy persistent comfortable sedated reduced LOC d/w daughter who consented to trach/PEG ICU care reviewed Objective Last 24 Hour Vital Signs Date Time Temp Pulse Resp B/P (MAP) Pulse Ox O2 Delivery O2 Flow Rate FiO2 05/28/20 17:00 112 14 101/53 (69) 100 05/28/20 16:00 116 05/28/20 16:00 113 12 101/43 (62) 100 05/28/20 15:37 113 16 100 Mechanical Ventilator 30 113 16 05/28/20 15:00 108 14 105/45 (65) 100 05/28/20 14:00 110 14 112/48 (69) 100 05/28/20 13:00 108 14 106/48 (67) 100 05/28/20 12:30 30 05/28/20 12:14 102 19 99 05/28/20 12:00 Mechanical Ventilator Mechanical Ventilator 05/28/20 12:00 110 14 97/45 (62) 96 05/28/20 12:00 110 05/28/20 12:00 30 05/28/20 11:04 91 14 30 05/28/20 11:00 97 14 103/51 (68) 99 05/28/20 10:00 98 14 105/56 (72) 99 05/28/20 09:00 107 14 109/48 (68) 99 05/28/20 08:00 30 05/28/20 08:00 Mechanical Ventilator Mechanical Ventilator 05/28/20 08:00 98.7 103 15 110/48 (68) 99 05/28/20 08:00 78 05/28/20 07:38 104 16 100 Mechanical Ventilator 30 102 16 05/28/20 07:00 104 14 101/47 (65) 98 05/28/20 06:00 106 14 104/47 (66) 99 05/28/20 05:58 107 91/45 05/28/20 05:00 108 16 101/47 (65) 99 05/28/20 04:00 Mechanical Ventilator Mechanical Ventilator 05/28/20 04:00 30 05/28/20 04:00 100.6 111 17 99/46 (63) 98 05/28/20 03:11 111 05/28/20 03:00 110 17 99/49 (66) 98 05/28/20 02:42 109 14 30 05/28/20 02:30 100.1 05/28/20 02:27 115 05/28/20 02:00 114 15 94/50 (65) 98 05/28/20 01:00 117 18 103/51 (68) 99 05/28/20 00:00 100.1 119 22 100/53 (69) 99 05/28/20 00:00 Mechanical Ventilator Mechanical Ventilator 05/27/20 23:08 112 05/27/20 23:00 115 19 102/51 (68) 100 05/27/20 22:30 115 15 30 05/27/20 22:00 114 15 93/52 (66) 98 05/27/20 21:30 112 15 97/49 (65) 98 05/27/20 21:08 112 14 100 Mechanical Ventilator 30 111 14 05/27/20 21:06 113 97/53 05/27/20 21:00 115 19 97/53 (68) 99 05/27/20 20:30 117 22 99/52 (68) 99 05/27/20 20:00 100.3 115 19 93/52 (66) 99 05/27/20 20:00 Mechanical Ventilator Mechanical Ventilator 05/27/20 20:00 30 05/27/20 19:35 113 05/27/20 19:00 113 17 97/49 (65) 99 05/27/20 18:49 112 14 30 05/27/20 18:00 109 14 86/44 (58) 97 Intake and Output 05/27/20 05/28/20 19:00 07:00 Intake Total 440 ml 936.25 ml Output Total 710 ml 855 ml Balance -270 ml 81.25 ml Free Water 60 ml IV Total 396.25 ml Tube Feeding 440 ml 480 ml Output Urine Total 510 ml 580 ml Stool Total 200 ml 275 ml Objective deferred due to COVID Microbiology Date/Time Source Procedure Growth Status 05/26/20 17:55 Rectum Stool Culture - Preliminary NORMAL FECAL ERICKA. Resulted 05/26/20 12:10 Blood Blood Culture - Preliminary NO GROWTH AFTER 24 HOURS Resulted 05/26/20 12:00 Urine,Clean Catch Urine Culture - Final Sherly Species Complete 05/26/20 11:40 Nasopharynx SARS-CoV-2 RdRp Gene Assay - Final Complete 05/26/20 11:40 Sputum Induced Gram Stain - Final Resulted 05/26/20 11:40 Sputum Culture - Preliminary Gram Negative Bacillus 1 Resulted Laboratory Tests 05/27/20 23:43: POC Whole Blood Glucose 143H 05/28/20 04:00: White Blood Count 5.5, Red Blood Count 2.92L, Hemoglobin 8.0L, Hematocrit 24.6L, Mean Corpuscular Volume 84, Mean Corpuscular Hemoglobin 27.4, Mean Corpuscular Hemoglobin Concent 32.5, Red Cell Distribution Width 17.8H, Platelet Count 173, Mean Platelet Volume 6.8, Neutrophils (%) (Auto) 74.8, Lymphocytes (%) (Auto) 16.2L, Monocytes (%) (Auto) 5.1, Eosinophils (%) (Auto) 3.2H, Basophils (%) (Auto) 0.8, Sodium Level 148H, Potassium Level 4.2, Chloride Level 114H, Carbon Dioxide Level 29, Anion Gap 5, Blood Urea Nitrogen 82H, Creatinine 2.4H, Estimat Glomerular Filtration Rate 23.5, Glucose Level 114H, Calcium Level 8.4L, Total Bilirubin 0.7, Aspartate Amino Transf (AST/SGOT) 54H, Alanine Aminotransferase (ALT/SGPT) 103H, Alkaline Phosphatase 290H, Total Protein 4.7L, Albumin 0.9L, Globulin 3.8, Albumin/Globulin Ratio 0.2L Current Medications Medications (Trade) Dose Ordered Sig/Ghislaine Route PRN Reason Start Time Stop Time Status Last Admin Dose Admin Acetaminophen (Tylenol) 500 mg Q4H PRN ORAL Mild Pain (Pain Scale 1-3) 05/11/20 20:00 06/02/20 19:59 05/27/20 09:50 Acetaminophen (Tylenol) 650 mg Q4H PRN NG Temp >100.5 05/25/20 16:15 06/24/20 16:14 05/28/20 02:00 Albuterol Sulfate (Proventil MDI) 2 puff Q4H PRN INH Shortness of Breath 05/11/20 20:00 08/01/20 11:59 05/13/20 10:30 Dextrose (Dextrose 50%) 25 ml Q30M PRN IV Hypoglycemia 05/22/20 18:30 08/20/20 18:29 Dextrose (Dextrose 50%) 50 ml Q30M PRN IV Hypoglycemia 05/22/20 18:30 08/20/20 18:29 Diltiazem HCl (Cardizem Tab) 60 mg EVERY 8 HOURS ORAL 05/16/20 06:00 06/15/20 05:59 05/27/20 14:38 Insulin Aspart (NovoLOG) Q6HR SUBQ 05/23/20 00:00 08/20/20 20:59 05/28/20 06:18 Ipratropium [place] (Atrovent Inh) 1 puffs QID INH 05/27/20 10:00 06/26/20 09:59 05/28/20 15:42 Loperamide HCl (Imodium) 2 mg Q6H PRN NG Diarrhea 05/26/20 17:45 06/25/20 17:44 05/27/20 10:52 Meropenem 500 mg/ Sodium Chloride 55 ml @ 110 mls/hr Q12HR@0200,1400 IVPB 05/26/20 14:00 05/31/20 13:59 05/28/20 14:21 Pantoprazole (Protonix) 40 mg DAILY IVP 05/28/20 09:00 06/27/20 08:59 05/28/20 08:35 Salmeterol Xinafoate/ Fluticasone (Advair 100/50 Diskus) 1 puffs BIDRT INH 05/11/20 22:00 08/09/20 21:59 05/16/20 09:02 Sodium Chloride 1,000 ml @ 75 mls/hr [id number] IV 05/28/20 02:15 06/27/20 02:14 05/28/20 14:29 Tobramycin Sulfate (Nebcin) 300 mg Q12HR@10,22 INH 05/28/20 22:00 06/04/20 21:59 Assessment/Plan Assessment/Plan Impression: COVID-19 Chronic obstructive pulmonary disease/Asthma Community acquired pneumonia Atrial fibrillation with RVR Elevated troponin Congestive heart Failure sinus tachycardia Hypoxemia transaminitis with gallstones consider cholecystitis acute on chronic renal failure acute respiratory failure hypotension tachycardia transaminitis MODS Plan ID noted gi follow up monitor heart rate on cardizem Vent support/and trach surgery for trach in am wean oxygen - low flow at present feeds per dietary and monitor residuals IV therapy noted Bronchodilator therapy Eliquis on hold GT needed Monitor labs/ renal follow up - renal function still reduced- renal following Covid 19 Isolation- per ID nutrition and NG feeds reviewed care and optimize position change and monitor skin surgical follow up noted monitor protein levels and adjust will d/w daughter; ok for trach and peg and would want to take patient home position change and monitor skin medications/laboratory data/nursing notes/ICU care reviewed in detail note reviewed and edited care discussed with RN and RT ICU time spent >40 minutes Aaron Jefferson MD May 28, 2020 17:56
--- NOTE | 2020-05-28 19:13 | NUR ---
NURSE NOTES: Received patient from DAMIAN Barrera. Will continue plan of care.
--- NOTE | 2020-05-28 19:15 | NUR ---
NURSE HAND-OFF REPORT: Latest Vital Signs: Temperature 98.8 , Pulse 112 , B/P 96 /50 , Respiratory Rate 15 , O2 SAT 100 , Trach Collar, O2 Flow Rate 4.0 . Vital Sign Comment: STABLE EKG Rhythm: Sinus Tachycardia Rhythm change?: N MD Notified?: MD Response: Latest Lechuga Fall Score: 50 Fall Risk: High Risk Safety Measures: Call light Within Reach, Bed Alarm Zone 1, Side Rails Side Rails x3, Bed position Low and Locked. Fall Precautions: Door Sign Report given to Hailee SALGADO. Endorsed plan of care.
--- NOTE | 2020-05-28 20:00 | NUR ---
NURSE NOTES: Patient is sleeping but awakens upon entering the room. New trachd this afternoon; Shiley 8 to vent with settings of AC:14, TV:500, FiO2:40%, PEEP:5. Right nare NGT running Glucerna 1.5 @ 40ml/hr. NGT is patent and flushes well. [place] catheter and rectal tube in place and draining. Right hand 20g IV running TKO. DRYING [employer]ING [employer]PER[employer]OR restraints in place for safety and prevent from pulling on lines; ROM and skin assessed. Isolation precaution noted. Safety measures in place; bed low, locked and alarm is on. Patient turned and repositioned. Daughter is here for visitation. Will continue plan of care.
--- NOTE | 2020-05-28 21:16 | Cardiology Progress Note ---
Subjective DATE OF SERVICE: May 28, 2020 Condition remains critical; patient remains on [facility] ventilation - failed wean, and trach performed today. Monitor: AFib with episodes of RVR and nonsustained VTach. BP range improved today. Episodes of tachyarrhythmias persist. CXR (05/23) reviewed: patchy left infiltrates with small pl eff'n. ICU logs and cardiology care plan reviewed and updated Objective Last 24 Hour Vital Signs Date Time Temp Pulse Resp B/P (MAP) Pulse Ox O2 Delivery O2 Flow Rate FiO2 05/28/20 21:04 110 96/54 05/28/20 21:00 112 19 96/54 (68) 99 05/28/20 20:00 40 05/28/20 20:00 Trach Collar Mechanical Ventilator 05/28/20 20:00 100.3 112 15 95/52 (66) 100 05/28/20 19:11 112 15 100 Mechanical Ventilator 30 113 15 05/28/20 19:00 103 14 96/50 (65) 05/28/20 18:00 106 18 104/50 (68) 100 05/28/20 17:00 112 14 101/53 (69) 100 05/28/20 16:00 98.8 05/28/20 16:00 Trach Collar Trach Collar 05/28/20 16:00 30 05/28/20 16:00 116 05/28/20 16:00 113 12 101/43 (62) 100 05/28/20 15:37 113 16 100 Mechanical Ventilator 30 113 16 05/28/20 15:00 108 14 105/45 (65) 100 05/28/20 14:00 110 14 112/48 (69) 100 05/28/20 13:00 108 14 106/48 (67) 100 05/28/20 12:30 30 05/28/20 12:14 102 19 99 05/28/20 12:00 Mechanical Ventilator Mechanical Ventilator 05/28/20 12:00 110 14 97/45 (62) 96 05/28/20 12:00 98.2 05/28/20 12:00 110 05/28/20 12:00 30 05/28/20 11:04 91 14 30 05/28/20 11:00 97 14 103/51 (68) 99 05/28/20 10:00 98 14 105/56 (72) 99 05/28/20 09:00 107 14 109/48 (68) 99 05/28/20 08:00 30 05/28/20 08:00 Mechanical Ventilator Mechanical Ventilator 05/28/20 08:00 98.7 103 15 110/48 (68) 99 05/28/20 08:00 78 05/28/20 07:38 104 16 100 Mechanical Ventilator 30 102 16 05/28/20 07:00 104 14 101/47 (65) 98 05/28/20 06:00 106 14 104/47 (66) 99 05/28/20 05:58 107 91/45 05/28/20 05:00 108 16 101/47 (65) 99 05/28/20 04:00 Mechanical Ventilator Mechanical Ventilator 05/28/20 04:00 30 05/28/20 04:00 100.6 111 17 99/46 (63) 98 05/28/20 03:11 111 05/28/20 03:00 110 17 99/49 (66) 98 05/28/20 02:42 109 14 30 05/28/20 02:30 100.1 05/28/20 02:27 115 05/28/20 02:00 114 15 94/50 (65) 98 05/28/20 01:00 117 18 103/51 (68) 99 05/28/20 00:00 100.1 119 22 100/53 (69) 99 05/28/20 00:00 Mechanical Ventilator Mechanical Ventilator 05/27/20 23:08 112 05/27/20 23:00 115 19 102/51 (68) 100 05/27/20 22:30 115 15 30 05/27/20 22:00 114 15 93/52 (66) 98 05/27/20 21:30 112 15 97/49 (65) 98 ROS: unchanged from my eval of 05/03/20 HEENT: Orally intubated, Mechanically Ventilated, Thin secretions ET Tube RHYTHM: Afib LUNGS: no accessory muscle use, expiratory wheezing, diminished breath sounds CARDIAC: normal S1 and S2, no murmur, irregularly irregular ABDOMEN: normal bowel sounds, non tender, soft, no organomegaly EXTREMITIES: no calf tenderness, +1 edema Laboratory Tests Test 05/27/20 23:43 05/28/20 04:00 POC Whole Blood Glucose 143 MG/DL (74-106) H White Blood Count 5.5 K/UL (4.8-10.8) Red Blood Count 2.92 M/UL (4.20-5.40) L Hemoglobin 8.0 G/DL (12.0-16.0) L Hematocrit 24.6 % (37.0-47.0) L Mean Corpuscular Volume 84 FL (80-99) Mean Corpuscular Hemoglobin 27.4 PG (27.0-31.0) Mean Corpuscular Hemoglobin Concent 32.5 G/DL (32.0-36.0) Red Cell Distribution Width 17.8 % (11.6-14.8) H Platelet Count 173 K/UL (150-450) Mean Platelet Volume 6.8 FL (6.5-10.1) Neutrophils (%) (Auto) 74.8 % (45.0-75.0) Lymphocytes (%) (Auto) 16.2 % (20.0-45.0) L Monocytes (%) (Auto) 5.1 % (1.0-10.0) Eosinophils (%) (Auto) 3.2 % (0.0-3.0) H Basophils (%) (Auto) 0.8 % (0.0-2.0) Sodium Level 148 MMOL/L (136-145) H Potassium Level 4.2 MMOL/L (3.5-5.1) Chloride Level 114 MMOL/L (98-107) H Carbon Dioxide Level 29 MMOL/L (21-32) Anion Gap 5 mmol/L (5-15) Blood Urea Nitrogen 82 mg/dL (7-18) H Creatinine 2.4 MG/DL (0.55-1.30) H Estimat Glomerular Filtration Rate 23.5 mL/min (>60) Glucose Level 114 MG/DL (74-106) H Calcium Level 8.4 MG/DL (8.5-10.1) L Total Bilirubin 0.7 MG/DL (0.2-1.0) Aspartate Amino Transf (AST/SGOT) 54 U/L (15-37) H Alanine Aminotransferase (ALT/SGPT) 103 U/L (12-78) H Alkaline Phosphatase 290 U/L (46-116) H Total Protein 4.7 G/DL (6.4-8.2) L Albumin 0.9 G/DL (3.4-5.0) L Globulin 3.8 g/dL Albumin/Globulin Ratio 0.2 (1.0-2.7) L Microbiology Date/Time Source Procedure Growth Status 05/26/20 17:55 Rectum Stool Culture - Preliminary NORMAL FECAL ERICKA. Resulted 05/26/20 12:10 Blood Blood Culture - Preliminary NO GROWTH AFTER 24 HOURS Resulted 05/26/20 12:00 Urine,Clean Catch Urine Culture - Final Sherly Species Complete 05/26/20 11:40 Nasopharynx SARS-CoV-2 RdRp Gene Assay - Final Complete 05/26/20 11:40 Sputum Induced Gram Stain - Final Resulted 05/26/20 11:40 Sputum Culture - Preliminary Gram Negative Bacillus 1 Resulted Assessment/Plan Assessment/Plan Acute on chronic respiratory acidosis Acute respiratory failure - s/p trach. Shock LE edema due to severe pulmonary hypertension and right heart strain COPD exacerb with active bronchospasm Lactic acidosis COVID 19 PNA Acute on chr renal failure Chronic systolic/diastolic CHF Pulmonary fibrosis with chronic hypoxia Paroxysmal AFib with RVR Hx Multifocal atrial arrhythmias Pulmonary HTN - severe Hx NSVTach Severe protein/calorie malnutrition Acute myocardial ischemia Worsening transaminitis CRITICAL & GUARDED Vent support with on-going weaning efforts following trach Hold diltiazem for low BP, but titrate for optimal rate control; cautiously add digoxin Steroids per pulmonary Inhaled bronchodilators Hypotonic IVF until free water deficit corrected Full anticoagulation for cardioembolic prophyl Isolation Anti-viral rx per ID Monitor liver fxn Simone Perez MD May 28, 2020 21:16
--- NOTE | 2020-05-28 22:00 | NUR ---
NURSE NOTES: Patient awakens upon entering room but effect is withdrawn. Refuses care at the moment. Daughter states she is probably not happy about the trach placement. BP:100/50, HR:111. No changes in condition.
--- NOTE | 2020-05-28 22:11 | General Progress Note ---
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 manager had trach today liq stool Objective Last 24 Hour Vital Signs Date Time Temp Pulse Resp B/P (MAP) Pulse Ox O2 Delivery O2 Flow Rate FiO2 05/28/20 21:14 112 17 100 Mechanical Ventilator 30 113 17 05/28/20 21:04 110 96/54 05/28/20 21:00 112 19 96/54 (68) 99 05/28/20 20:00 40 05/28/20 20:00 Trach Collar Mechanical Ventilator 05/28/20 20:00 100.3 112 15 95/52 (66) 100 05/28/20 19:11 112 15 100 Mechanical Ventilator 30 113 15 05/28/20 19:00 103 14 96/50 (65) 05/28/20 18:00 106 18 104/50 (68) 100 05/28/20 17:00 112 14 101/53 (69) 100 05/28/20 16:00 98.8 05/28/20 16:00 Trach Collar Trach Collar 05/28/20 16:00 30 05/28/20 16:00 116 05/28/20 16:00 113 12 101/43 (62) 100 05/28/20 15:37 113 16 100 Mechanical Ventilator 30 113 16 05/28/20 15:00 108 14 105/45 (65) 100 05/28/20 14:00 110 14 112/48 (69) 100 05/28/20 13:00 108 14 106/48 (67) 100 05/28/20 12:30 30 05/28/20 12:14 102 19 99 05/28/20 12:00 Mechanical Ventilator Mechanical Ventilator 05/28/20 12:00 110 14 97/45 (62) 96 05/28/20 12:00 98.2 05/28/20 12:00 110 05/28/20 12:00 30 05/28/20 11:04 91 14 30 05/28/20 11:00 97 14 103/51 (68) 99 05/28/20 10:00 98 14 105/56 (72) 99 05/28/20 09:00 107 14 109/48 (68) 99 05/28/20 08:00 30 05/28/20 08:00 Mechanical Ventilator Mechanical Ventilator 05/28/20 08:00 98.7 103 15 110/48 (68) 99 05/28/20 08:00 78 05/28/20 07:38 104 16 100 Mechanical Ventilator 30 102 16 05/28/20 07:00 104 14 101/47 (65) 98 05/28/20 06:00 106 14 104/47 (66) 99 05/28/20 05:58 107 91/45 05/28/20 05:00 108 16 101/47 (65) 99 05/28/20 04:00 Mechanical Ventilator Mechanical Ventilator 05/28/20 04:00 30 05/28/20 04:00 100.6 111 17 99/46 (63) 98 05/28/20 03:11 111 05/28/20 03:00 110 17 99/49 (66) 98 05/28/20 02:42 109 14 30 05/28/20 02:30 100.1 05/28/20 02:27 115 05/28/20 02:00 114 15 94/50 (65) 98 05/28/20 01:00 117 18 103/51 (68) 99 05/28/20 00:00 100.1 119 22 100/53 (69) 99 05/28/20 00:00 Mechanical Ventilator Mechanical Ventilator 05/27/20 23:08 112 05/27/20 23:00 115 19 102/51 (68) 100 05/27/20 22:30 115 15 30 Intake and Output 05/27/20 05/28/20 19:00 07:00 Intake Total 440 ml 936.25 ml Output Total 710 ml 855 ml Balance -270 ml 81.25 ml Free Water 60 ml IV Total 396.25 ml Tube Feeding 440 ml 480 ml Output Urine Total 510 ml 580 ml Stool Total 200 ml 275 ml Laboratory Tests 05/27/20 23:43: POC Whole Blood Glucose 143H 05/28/20 04:00: White Blood Count 5.5, Red Blood Count 2.92L, Hemoglobin 8.0L, Hematocrit 24.6L, Mean Corpuscular Volume 84, Mean Corpuscular Hemoglobin 27.4, Mean Corpuscular Hemoglobin Concent 32.5, Red Cell Distribution Width 17.8H, Platelet Count 173, Mean Platelet Volume 6.8, Neutrophils (%) (Auto) 74.8, Lymphocytes (%) (Auto) 16.2L, Monocytes (%) (Auto) 5.1, Eosinophils (%) (Auto) 3.2H, Basophils (%) (Auto) 0.8, Sodium Level 148H, Potassium Level 4.2, Chloride Level 114H, Carbon Dioxide Level 29, Anion Gap 5, Blood Urea Nitrogen 82H, Creatinine 2.4H, Estimat Glomerular Filtration Rate 23.5, Glucose Level 114H, Calcium Level 8.4L, Total Bilirubin 0.7, Aspartate Amino Transf (AST/SGOT) 54H, Alanine Aminotransferase (ALT/SGPT) 103H, Alkaline Phosphatase 290H, Total Protein 4.7L, Albumin 0.9L, Globulin 3.8, Albumin/Globulin Ratio 0.2L Height (Feet): 5 Height (Inches): 3.00 Weight (Pounds): 174 Objective Elderly AA woman seen in ICU exam limited due to COVID isolation comfortable appearing NCAT (+) NG Feeding tube - tolerating well (+) intubated - on ventilator --> trach later in the day abd non distended Assessment/Plan Status: stable Assessment/Plan: Assessment - Transaminitis, likely due to COVID-19 --Improving - Gallstones - Resp failure - Dysphagia - OGT - CHF - Pulm HTN - Arrhythmia - Leukocytosis - Renal failure Recommendations - monitor LFT - Continue TF - Abx - ICU care - trach noted - will consider repeat abd ultrasound Justine Torres MD May 28, 2020 22:11
[2020-05-29] VITALS (25 sets, daily range): BP systolic 98–135; BP diastolic 45–74
--- NOTE | 2020-05-29 | NUR ---
NURSE NOTES: BP:106/45, HR:109, O2sat:100% @ 40% FiO2. Repositioned.
--- NOTE | 2020-05-29 02:00 | NUR ---
NURSE NOTES: Patient repositioned. Oral care and suctioning provided which she agreed to. Patient is comfortable.
[2020-05-29] MEDS: Meropenem 500 MG in NS 55 ML IVPB SCH (02:05)
--- NOTE | 2020-05-29 04:00 | NUR ---
NURSE NOTES: Blood drawn peripherally and sent to lab for AM results.
[2020-05-29 04:40] LABS: HEMOGLOBIN 7.8 G/DL (12.0-16.0); MEAN CORPUSCULAR VOLUME 84 FL (80-99); PLATELET COUNT 182 K/UL (150-450); RED BLOOD COUNT 2.86 M/UL (4.20-5.40); RED CELL DISTRIBUTION WIDTH 17.4 % (11.6-14.8); WHITE BLOOD COUNT 5.3 K/UL (4.8-10.8)
[2020-05-29 05:07] LABS: ALBUMIN 0.8 G/DL (3.4-5.0); ALBUMIN/GLOBULIN RATIO 0.2 (1.0-2.7); BILIRUBIN,TOTAL 0.7 MG/DL (0.2-1.0); CALCIUM 8.1 MG/DL (8.5-10.1); CREATININE 2.5 MG/DL (0.55-1.30); POTASSIUM 4.3 MMOL/L (3.5-5.1)
[2020-05-29] MEDS: dilTIAZem HCl 60mg tab ORAL SCH ×3 (05:31→21:51)
[2020-05-29] MEDS: NovoLOG Insulin Flexpen SUBQ SCH ×3 (06:00→18:00)
--- NOTE | 2020-05-29 06:00 | NUR ---
NURSE NOTES: Cool bath given, linens changes, turned/repositioned. Refused oral care. Cooling measures replaced for low grade fever.
--- NOTE | 2020-05-29 07:15 | NUR ---
NURSE HAND-OFF REPORT: Latest Vital Signs: Temperature 99.8 , Pulse 94 , B/P 101 /47 , Respiratory Rate 14 , O2 SAT 100 , Mechanical Ventilator, O2 Flow Rate 4.0 . Vital Sign Comment: Stable EKG Rhythm: Sinus Rhythm Rhythm change?: N Notified?: Tracy Linn MD Response: No New Orders Received Latest Lechuga Fall Score: 50 Fall Risk: High Risk Safety Measures: Call light Within Reach, Bed Alarm Zone 1, Side Rails Side Rails x3, Bed position Low and Locked. Fall Precautions: Door Sign Report given to .
--- NOTE | 2020-05-29 07:30 | NUR ---
NURSE NOTES: Patient received from Hailee SALGADO. Patient stable at this time with no s/sx of pain or distress. AOx1 able to express simple questions and able to follow commands. RR even and unlabored on trach shiley 8. Ventilator settings as ordered AC 14 500mL 40% P5. Cardiac sounds benign. Breath sounds diminished, rhoncus. Bowels sounds hyperactive. Feeding infusing at this time but per Dr. Linn, will be changing feed. Zero residual. NGT in place. BL radial pulses normal. Edema present to hands +3 trace to LE. [place] in place draining well to gravity. Rectal tube in place. Fluids infusing to peripheral IV. Restraints on with good ROM, sensation and circulation. Dependent edema present and previously noted unrelated to restraints. Side rails upx2, bed low and locked. Oral care refused. Call light within reach.
--- NOTE | 2020-05-29 07:32 | General Progress Note ---
Subjective ROS Limited/Unobtainable: No Constitutional: Reports: malaise, weakness HEENT: Reports: no symptoms Cardiovascular: Reports: no symptoms Respiratory: Reports: no symptoms Gastrointestinal/Abdominal: Reports: difficulty swallowing Genitourinary: Reports: no symptoms Neurologic/Psychiatric: Reports: pre-existing deficit Endocrine: Reports: no symptoms Hematologic/Lymphatic: Reports: anemia Allergies: Coded Allergies: CIPROFLOXACIN (Verified Allergy, Unknown, 09/27/17) All Systems: reviewed and negative except above Subjective s/p trach. no real change. low grade temps. still on ngt feeds. Na up. awake. Objective Last 24 Hour Vital Signs Date Time Temp Pulse Resp B/P (MAP) Pulse Ox O2 Delivery O2 Flow Rate FiO2 05/29/20 07:00 94 14 101/47 (65) 100 05/29/20 06:00 105 18 102/53 (69) 100 05/29/20 05:31 102 99/51 05/29/20 05:00 99.8 105 17 113/52 (72) 100 05/29/20 04:00 40 05/29/20 04:00 Trach Collar Mechanical Ventilator 05/29/20 04:00 100.6 105 16 109/54 (72) 100 05/29/20 03:07 99 05/29/20 03:00 98 15 100/55 (70) 100 05/29/20 02:30 99 14 30 05/29/20 02:00 102 15 108/49 (68) 100 05/29/20 01:00 105 16 102/48 (66) 100 05/29/20 00:15 108 14 98/48 (65) 100 05/29/20 00:00 Trach Collar Mechanical Ventilator 05/29/20 00:00 99.8 107 14 106/45 (65) 100 05/28/20 23:47 99.9 05/28/20 23:19 110 05/28/20 23:00 109 18 103/45 (64) 100 05/28/20 22:56 110 19 30 05/28/20 22:00 112 21 93/75 (81) 100 05/28/20 21:14 112 17 100 Mechanical Ventilator 30 113 17 05/28/20 21:04 110 96/54 05/28/20 21:00 112 19 96/54 (68) 99 05/28/20 20:00 40 05/28/20 20:00 Trach Collar Mechanical Ventilator 05/28/20 20:00 100.3 112 15 95/52 (66) 100 05/28/20 19:31 108 05/28/20 19:11 112 15 100 Mechanical Ventilator 30 113 15 05/28/20 19:00 103 14 96/50 (65) 05/28/20 18:00 106 18 104/50 (68) 100 05/28/20 17:00 112 14 101/53 (69) 100 05/28/20 16:00 98.8 05/28/20 16:00 Trach Collar Trach Collar 05/28/20 16:00 30 05/28/20 16:00 116 05/28/20 16:00 113 12 101/43 (62) 100 05/28/20 15:37 113 16 100 Mechanical Ventilator 30 113 16 05/28/20 15:00 108 14 105/45 (65) 100 05/28/20 14:00 110 14 112/48 (69) 100 05/28/20 13:00 108 14 106/48 (67) 100 05/28/20 12:30 30 05/28/20 12:14 102 19 99 05/28/20 12:00 Mechanical Ventilator Mechanical Ventilator 05/28/20 12:00 110 14 97/45 (62) 96 05/28/20 12:00 98.2 05/28/20 12:00 110 05/28/20 12:00 30 05/28/20 11:04 91 14 30 05/28/20 11:00 97 14 103/51 (68) 99 05/28/20 10:00 98 14 105/56 (72) 99 05/28/20 09:00 107 14 109/48 (68) 99 05/28/20 08:00 30 05/28/20 08:00 Mechanical Ventilator Mechanical Ventilator 05/28/20 08:00 98.7 103 15 110/48 (68) 99 05/28/20 08:00 78 05/28/20 07:38 104 16 100 Mechanical Ventilator 30 102 16 Intake and Output 05/28/20 05/29/20 19:00 07:00 Intake Total 1435 ml 1446.25 ml Output Total 675 ml 830 ml Balance 760 ml 616.25 ml Free Water 180 ml IV Total 955 ml 786.25 ml Tube Feeding 480 ml 480 ml Output Urine Total 475 ml 630 ml Stool Total 200 ml 200 ml Laboratory Tests 05/29/20 04:00: White Blood Count 5.3, Red Blood Count 2.86L, Hemoglobin 7.8L, Hematocrit 24.0L, Mean Corpuscular Volume 84, Mean Corpuscular Hemoglobin 27.4, Mean Corpuscular Hemoglobin Concent 32.7, Red Cell Distribution Width 17.4H, Platelet Count 182, Mean Platelet Volume 6.8, Neutrophils (%) (Auto) , Lymphocytes (%) (Auto) , Monocytes (%) (Auto) , Eosinophils (%) (Auto) , Basophils (%) (Auto) , Sodium Level 150H, Potassium Level 4.3, Chloride Level 114H, Carbon Dioxide Level 27, Anion Gap 9, Blood Urea Nitrogen 80H, Creatinine 2.5H, Estimat Glomerular Filtration Rate 22.5, Glucose Level 117H, Calcium Level 8.1L, Total Bilirubin 0.7, Aspartate Amino Transf (AST/SGOT) 44H, Alanine Aminotransferase (ALT/SGPT) 75, Alkaline Phosphatase 270H, Total Protein 5.3L, Albumin 0.8L, Globulin 4.5, Albumin/Globulin Ratio 0.2L Height (Feet): 5 Height (Inches): 3.00 Weight (Pounds): 174 Objective General Appearance: WD/WN, no apparent distress, alert. orally intubated EENT: PERRL/EOMI Neck: non-tender, normal alignment, supple Cardiovascular: normal rate, regular rhythm Respiratory/Chest: chest wall non-tender, lungs clear, normal breath sounds, no respiratory distress, no accessory muscle use Abdomen: normal bowel sounds, non tender, soft, no organomegaly Edema: no edema noted Arm (L), no edema noted Arm (R) Neurologic: auto clocks repairer II-XII grossly normal, alert, oriented x 3, responsive Skin: normal pigmentation Lymphatic: normal anterior cervical (L), normal anterior cervical (R) Assessment/Plan Problem List: (1) Pulmonary fibrosis ICD Codes: J84.10 - Pulmonary fibrosis, unspecified SNOMED: 62621703 (2) History of asthma ICD Codes: Z87.09 - Personal history of other diseases of the respiratory system SNOMED: 759126380 (3) Asthma ICD Codes: J45.909 - Unspecified asthma, uncomplicated SNOMED: 920413643 (4) NSTEMI (non-ST elevated myocardial infarction) ICD Codes: I21.4 - Non-ST elevation (NSTEMI) myocardial infarction SNOMED: 236493412 (5) Elevated troponin ICD Codes: R79.89 - Other specified abnormal findings of blood chemistry SNOMED: 650023882, 527048054, 750213698 (6) COPD (chronic obstructive pulmonary disease) ICD Codes: J44.9 - Chronic obstructive pulmonary disease, unspecified SNOMED: 72476121 (7) Atrial fibrillation with RVR ICD Codes: I48.91 - Unspecified atrial fibrillation SNOMED: 201330367769610 (8) Community acquired pneumonia ICD Codes: J18.9 - Pneumonia, unspecified organism SNOMED: 661379103 Status: stable Assessment/Plan: cont iv abx- matthew and inh tobra water flushes via ngt monitor renal fxn/lytes ivf adjusted to d5w ngt feeds gt next week tylenol for fever wean vent as able BP rx keep dry cardizem for rate control dvt/stress ulcer prophylaxis skin care imodium trach care eliquis and aspirin on hold for procedures turn q2 critical and guarded Bradford Linn MD May 29, 2020 07:32
--- NOTE | 2020-05-29 08:02 | NUR ---
RD ASSESSMENT & RECOMMENDATIONS SEE CARE ACTIVITY FOR COMPLETE ASSESSMENT DAILY ESTIMATED NEEDS: Needs based on Critical Care, ARF/ 56kg abw 22-28 kcals/kg 2777-6259 total kcals 0.8-1.5 (increase w/ renal improvement) g protein/kg 45-84 g total protein 25-30 mL/kg 8189-5127 total fluid mLs NUTRITION DIAGNOSIS: * Altered nutrition related lab values r/t clinical status as evidenced by elev BUN(80 trend down), creat(2.0->4.0->2.5), low K (3.2-> wnl), critical ABG (low pH,elev CO2)-> now improved. * Swallowing difficulty R/T respiratory status as evidenced by s/p oral intubation, now s/p trach placement (05/29), remains on NGT feeds. CURRENT TF:CHANGED TO VITAL AF 1.2 @ 40ml/hr x 24hrs ENTERAL NUTRITION RECOMMENDATIONS: Vital AF 1.2 @ 45ml/hr x 24 hrs to provide 1080ml, 1296kcal, 81g prot, 876ml free water * Increase goal rate to 45ml/hr x 24 hrs to meet 100% est kcal/prot needs * HOB over 30 degrees/ water flush per MD ADDITIONAL RECOMMENDATIONS: 1) Calibrated bedscale wt 2) Monitor renal fxn and lytes, need to resume renal TF -> Creat 2.0-> 4.0-> 2.5 3) Rec niss - now added, improved glycemic control 4) Probiotics for diarrhea . .
--- NOTE | 2020-05-29 08:05 | Pulmonology Progress Note ---
Subjective ROS Limited/Unobtainable: Yes Constitutional: Reports: fever, other - Qu=482.5 Musculoskeletal: Denies: pain Allergies: Coded Allergies: CIPROFLOXACIN (Verified Allergy, Unknown, 09/27/17) All Systems: reviewed and negative except above Subjective on vent- awaiting trach today pulse rate better comfortable sedated reduced LOC ICU care reviewed Objective Last 24 Hour Vital Signs Date Time Temp Pulse Resp B/P (MAP) Pulse Ox O2 Delivery O2 Flow Rate FiO2 05/29/20 07:00 94 14 101/47 (65) 100 05/29/20 06:00 105 18 102/53 (69) 100 05/29/20 05:31 102 99/51 05/29/20 05:00 99.8 105 17 113/52 (72) 100 05/29/20 04:00 40 05/29/20 04:00 Trach Collar Mechanical Ventilator 05/29/20 04:00 100.6 105 16 109/54 (72) 100 05/29/20 03:07 99 05/29/20 03:00 98 15 100/55 (70) 100 05/29/20 02:30 99 14 30 05/29/20 02:00 102 15 108/49 (68) 100 05/29/20 01:00 105 16 102/48 (66) 100 05/29/20 00:15 108 14 98/48 (65) 100 05/29/20 00:00 Trach Collar Mechanical Ventilator 05/29/20 00:00 99.8 107 14 106/45 (65) 100 05/28/20 23:47 99.9 05/28/20 23:19 110 05/28/20 23:00 109 18 103/45 (64) 100 05/28/20 22:56 110 19 30 05/28/20 22:00 112 21 93/75 (81) 100 05/28/20 21:14 112 17 100 Mechanical Ventilator 30 113 17 05/28/20 21:04 110 96/54 05/28/20 21:00 112 19 96/54 (68) 99 05/28/20 20:00 40 05/28/20 20:00 Trach Collar Mechanical Ventilator 05/28/20 20:00 100.3 112 15 95/52 (66) 100 05/28/20 19:31 108 05/28/20 19:11 112 15 100 Mechanical Ventilator 30 113 15 05/28/20 19:00 103 14 96/50 (65) 05/28/20 18:00 106 18 104/50 (68) 100 05/28/20 17:00 112 14 101/53 (69) 100 05/28/20 16:00 98.8 05/28/20 16:00 Trach Collar Trach Collar 05/28/20 16:00 30 05/28/20 16:00 116 05/28/20 16:00 113 12 101/43 (62) 100 05/28/20 15:37 113 16 100 Mechanical Ventilator 30 113 16 05/28/20 15:00 108 14 105/45 (65) 100 05/28/20 14:00 110 14 112/48 (69) 100 05/28/20 13:00 108 14 106/48 (67) 100 05/28/20 12:30 30 05/28/20 12:14 102 19 99 05/28/20 12:00 Mechanical Ventilator Mechanical Ventilator 05/28/20 12:00 110 14 97/45 (62) 96 05/28/20 12:00 98.2 05/28/20 12:00 110 05/28/20 12:00 30 05/28/20 11:04 91 14 30 05/28/20 11:00 97 14 103/51 (68) 99 05/28/20 10:00 98 14 105/56 (72) 99 05/28/20 09:00 107 14 109/48 (68) 99 Intake and Output 05/28/20 05/29/20 19:00 07:00 Intake Total 1435 ml 1446.25 ml Output Total 675 ml 830 ml Balance 760 ml 616.25 ml Free Water 180 ml IV Total 955 ml 786.25 ml Tube Feeding 480 ml 480 ml Output Urine Total 475 ml 630 ml Stool Total 200 ml 200 ml Objective deferred due to COVID Microbiology Date/Time Source Procedure Growth Status 05/26/20 17:55 Rectum Stool Culture - Preliminary NORMAL FECAL ERICKA. Resulted 05/26/20 12:10 Blood Blood Culture - Preliminary NO GROWTH AFTER 48 HOURS Resulted 05/26/20 12:00 Urine,Clean Catch Urine Culture - Final Sherly Species Complete 05/26/20 11:40 Nasopharynx SARS-CoV-2 RdRp Gene Assay - Final Complete 05/26/20 11:40 Sputum Induced Gram Stain - Final Complete 05/26/20 11:40 Sputum Culture - Final Pseudomonas Aeruginosa Complete Laboratory Tests 05/29/20 04:00: White Blood Count 5.3, Red Blood Count 2.86L, Hemoglobin 7.8L, Hematocrit 24.0L, Mean Corpuscular Volume 84, Mean Corpuscular Hemoglobin 27.4, Mean Corpuscular Hemoglobin Concent 32.7, Red Cell Distribution Width 17.4H, Platelet Count 182, Mean Platelet Volume 6.8, Neutrophils (%) (Auto) , Lymphocytes (%) (Auto) , Monocytes (%) (Auto) , Eosinophils (%) (Auto) , Basophils (%) (Auto) , Sodium Level 150H, Potassium Level 4.3, Chloride Level 114H, Carbon Dioxide Level 27, Anion Gap 9, Blood Urea Nitrogen 80H, Creatinine 2.5H, Estimat Glomerular Filtration Rate 22.5, Glucose Level 117H, Calcium Level 8.1L, Total Bilirubin 0.7, Aspartate Amino Transf (AST/SGOT) 44H, Alanine Aminotransferase (ALT/SGPT) 75, Alkaline Phosphatase 270H, Total Protein 5.3L, Albumin 0.8L, Globulin 4.5, Albumin/Globulin Ratio 0.2L Current Medications Medications (Trade) Dose Ordered Sig/Ghislaine Route PRN Reason Start Time Stop Time Status Last Admin Dose Admin Acetaminophen (Tylenol) 500 mg Q4H PRN ORAL Mild Pain (Pain Scale 1-3) 05/11/20 20:00 06/02/20 19:59 05/27/20 09:50 Acetaminophen (Tylenol) 650 mg Q4H PRN NG Temp >100.5 05/25/20 16:15 06/24/20 16:14 05/28/20 23:17 Albuterol Sulfate (Proventil MDI) 2 puff Q4H PRN INH Shortness of Breath 05/11/20 20:00 08/01/20 11:59 05/13/20 10:30 Dextrose 1,000 ml @ 75 mls/hr [id number] IV 05/29/20 07:30 06/28/20 07:29 Dextrose (Dextrose 50%) 25 ml Q30M PRN IV Hypoglycemia 05/22/20 18:30 08/20/20 18:29 Dextrose (Dextrose 50%) 50 ml Q30M PRN IV Hypoglycemia 05/22/20 18:30 08/20/20 18:29 Diltiazem HCl (Cardizem Tab) 60 mg EVERY 8 HOURS ORAL 05/16/20 06:00 06/15/20 05:59 05/27/20 14:38 Insulin Aspart (NovoLOG) Q6HR SUBQ 05/23/20 00:00 08/20/20 20:59 05/28/20 06:18 Ipratropium [place] (Atrovent Inh) 1 puffs QID INH 05/27/20 10:00 06/26/20 09:59 05/28/20 21:14 Loperamide HCl (Imodium) 2 mg Q6H PRN NG Diarrhea 05/26/20 17:45 06/25/20 17:44 05/27/20 10:52 Meropenem 500 mg/ Sodium Chloride 55 ml @ 110 mls/hr Q12HR@0200,1400 IVPB 05/26/20 14:00 05/31/20 13:59 05/29/20 02:05 Pantoprazole (Protonix) 40 mg DAILY IVP 05/28/20 09:00 06/27/20 08:59 05/28/20 08:35 Salmeterol Xinafoate/ Fluticasone (Advair 100/50 Diskus) 1 puffs BIDRT INH 05/11/20 22:00 08/09/20 21:59 05/16/20 09:02 Tobramycin Sulfate (Nebcin) 300 mg Q12HR@10,22 INH 05/28/20 22:00 06/04/20 21:59 Assessment/Plan Assessment/Plan Impression: COVID-19 Chronic obstructive pulmonary disease/Asthma Community acquired pneumonia Atrial fibrillation with RVR Elevated troponin Congestive heart Failure sinus tachycardia Hypoxemia transaminitis with gallstones acute on chronic renal failure acute respiratory failure hypotension tachycardia transaminitis MODS anemia Plan ID noted transfuse gi follow up monitor heart rate on cardizem Vent support/and trach surgery for trach in am wean oxygen - low flow at present feeds per dietary and monitor residuals IV therapy noted Bronchodilator therapy Eliquis on hold GT needed Monitor labs/ renal follow up - renal function still reduced- renal following Covid 19 Isolation- per ID nutrition and NG feeds reviewed care and optimize position change and monitor skin surgical follow up noted monitor protein levels and adjust will d/w daughter; ok for trach and peg and would want to take patient home position change and monitor skin medications/laboratory data/nursing notes/ICU care reviewed in detail note reviewed and edited care discussed with RN and RT ICU time spent >40 minutes Aaron Jefferson MD May 29, 2020 08:05
[2020-05-29] MEDS: Ipratropium Bromide Inhaler INH SCH ×4 (08:35→21:00)
[2020-05-29] MEDS: Tobramycin for inhalation INH SCH (08:36)
[2020-05-29] MEDS: Wixela 100/50 Inhaler - 60 dose INH SCH ×2 (08:43→22:00)
--- NOTE | 2020-05-29 09:00 | NUR ---
NURSE NOTES: Per Dr. Ronny israel to hold blood transfusion. Will repeat labs in AM.
[2020-05-29] MEDS: Pantoprazole Inj IVP SCH (09:21)
--- NOTE | 2020-05-29 09:30 | NUR ---
NURSE NOTES: Patient is calm and cooperative. Explained to not remove any devices. Nodded head in understanding. Restraints removed.
--- NOTE | 2020-05-29 10:02 | 48 Hour Post Anesthesia Eval ---
Post Anesthesia Evaluation Procedure: Tracheostomy Date of Evaluation: May 29, 2020 Time of Evaluation: 10:01 Blood Pressure Systolic: 101 0: 97 Pulse Rate: 94 Respiratory Rate: 16 Temperature (Fahrenheit): 99.8 O2 Sat by Pulse Oximetry: 100 Airway: patent Nausea: No Vomiting: No Pain Intensity: 0 Hydration Status: adequate Cardiopulmonary Status: Stable Mental Status/LOC: patient returned to baseline Follow-up Care/Observations: 0 Post-Anesthesia Complications: 0 Follow-up care needed: N/A Vinod Montoya MD May 29, 2020 10:02
--- NOTE | 2020-05-29 11:32 | Infectious Diseases Prog Note ---
Assessment/Plan Assessment/Plan antibiotics : inhaled tobramycin, meropenem A 1. COVID 19 pneumonia s/p ivermectin 9.7.20 2. renal failure 3. increased LFT 4. COPD 5. CHF 6. asthma 7. respiratory failure s/p tracheostomy 8. leucocytosis resolved 9. pseudomonas pneumonia 10. fungal UTI s/p rx P 1. d/c meropenem, inhaled tobramycin 2. start levoquin 3. will follow up cultures Subjective ROS Limited/Unobtainable: Yes Allergies: Coded Allergies: CIPROFLOXACIN (Verified Allergy, Unknown, 09/27/17) Objective Last 24 Hour Vital Signs Date Time Temp Pulse Resp B/P (MAP) Pulse Ox O2 Delivery O2 Flow Rate FiO2 05/29/20 10:02 94 16 100 05/29/20 08:00 92 05/29/20 07:24 98 16 30 05/29/20 07:00 94 14 101/47 (65) 100 05/29/20 06:00 105 18 102/53 (69) 100 05/29/20 05:31 102 99/51 05/29/20 05:00 99.8 105 17 113/52 (72) 100 05/29/20 04:00 40 05/29/20 04:00 Trach Collar Mechanical Ventilator 05/29/20 04:00 100.6 105 16 109/54 (72) 100 05/29/20 03:07 99 05/29/20 03:00 98 15 100/55 (70) 100 05/29/20 02:30 99 14 30 05/29/20 02:00 102 15 108/49 (68) 100 05/29/20 01:00 105 16 102/48 (66) 100 05/29/20 00:15 108 14 98/48 (65) 100 05/29/20 00:00 Trach Collar Mechanical Ventilator 05/29/20 00:00 99.8 107 14 106/45 (65) 100 05/28/20 23:47 99.9 05/28/20 23:19 110 05/28/20 23:00 109 18 103/45 (64) 100 05/28/20 22:56 110 19 30 05/28/20 22:00 112 21 93/75 (81) 100 05/28/20 21:14 112 17 100 Mechanical Ventilator 30 113 17 05/28/20 21:04 110 96/54 10/1/20 21:00 112 19 96/54 (68) 99 05/28/20 20:00 40 05/28/20 20:00 Trach Collar Mechanical Ventilator 05/28/20 20:00 100.3 112 15 95/52 (66) 100 05/28/20 19:31 108 05/28/20 19:11 112 15 100 Mechanical Ventilator 30 113 15 05/28/20 19:00 103 14 96/50 (65) 05/28/20 18:00 106 18 104/50 (68) 100 05/28/20 17:00 112 14 101/53 (69) 100 05/28/20 16:00 98.8 05/28/20 16:00 Trach Collar Trach Collar 05/28/20 16:00 30 05/28/20 16:00 116 05/28/20 16:00 113 12 101/43 (62) 100 05/28/20 15:37 113 16 100 Mechanical Ventilator 30 113 16 05/28/20 15:00 108 14 105/45 (65) 100 05/28/20 14:00 110 14 112/48 (69) 100 05/28/20 13:00 108 14 106/48 (67) 100 05/28/20 12:30 30 05/28/20 12:14 102 19 99 05/28/20 12:00 Mechanical Ventilator Mechanical Ventilator 05/28/20 12:00 110 14 97/45 (62) 96 05/28/20 12:00 98.2 05/28/20 12:00 110 05/28/20 12:00 30 Height (Feet): 5 Height (Inches): 3.00 Weight (Pounds): 174 HEENT: status post trach Microbiology Date/Time Source Procedure Growth Status 05/26/20 17:55 Rectum Stool Culture - Preliminary NORMAL FECAL ERICKA. Resulted 05/26/20 12:10 Blood Blood Culture - Preliminary NO GROWTH AFTER 48 HOURS Resulted 05/26/20 12:00 Urine,Clean Catch Urine Culture - Final Sherly Species Complete 05/26/20 11:40 Nasopharynx SARS-CoV-2 RdRp Gene Assay - Final Complete 05/26/20 11:40 Sputum Induced Gram Stain - Final Complete 05/26/20 11:40 Sputum Culture - Final Pseudomonas Aeruginosa Complete Laboratory Tests Test 05/29/20 04:00 White Blood Count 5.3 K/UL (4.8-10.8) Red Blood Count 2.86 M/UL (4.20-5.40) L Hemoglobin 7.8 G/DL (12.0-16.0) L Hematocrit 24.0 % (37.0-47.0) L Mean Corpuscular Volume 84 FL (80-99) Mean Corpuscular Hemoglobin 27.4 PG (27.0-31.0) Mean Corpuscular Hemoglobin Concent 32.7 G/DL (32.0-36.0) Red Cell Distribution Width 17.4 % (11.6-14.8) H Platelet Count 182 K/UL (150-450) Mean Platelet Volume 6.8 FL (6.5-10.1) Neutrophils (%) (Auto) % (45.0-75.0) Lymphocytes (%) (Auto) % (20.0-45.0) Monocytes (%) (Auto) % (1.0-10.0) Eosinophils (%) (Auto) % (0.0-3.0) Basophils (%) (Auto) % (0.0-2.0) Sodium Level 150 MMOL/L (136-145) H Potassium Level 4.3 MMOL/L (3.5-5.1) Chloride Level 114 MMOL/L (98-107) H Carbon Dioxide Level 27 MMOL/L (21-32) Anion Gap 9 mmol/L (5-15) Blood Urea Nitrogen 80 mg/dL (7-18) H Creatinine 2.5 MG/DL (0.55-1.30) H Estimat Glomerular Filtration Rate 22.5 mL/min (>60) Glucose Level 117 MG/DL (74-106) H Calcium Level 8.1 MG/DL (8.5-10.1) L Total Bilirubin 0.7 MG/DL (0.2-1.0) Aspartate Amino Transf (AST/SGOT) 44 U/L (15-37) H Alanine Aminotransferase (ALT/SGPT) 75 U/L (12-78) Alkaline Phosphatase 270 U/L (46-116) H Total Protein 5.3 G/DL (6.4-8.2) L Albumin 0.8 G/DL (3.4-5.0) L Globulin 4.5 g/dL Albumin/Globulin Ratio 0.2 (1.0-2.7) L Current Medications Medications (Trade) Dose Ordered Sig/Ghislaine Route PRN Reason Start Time Stop Time Status Last Admin Dose Admin Acetaminophen (Tylenol) 500 mg Q4H PRN ORAL Mild Pain (Pain Scale 1-3) 05/11/20 20:00 06/02/20 19:59 05/27/20 09:50 Acetaminophen (Tylenol) 650 mg Q4H PRN NG Temp >100.5 05/25/20 16:15 06/24/20 16:14 05/28/20 23:17 Albuterol Sulfate (Proventil MDI) 2 puff Q4H PRN INH Shortness of Breath 05/11/20 20:00 08/01/20 11:59 05/13/20 10:30 Dextrose 1,000 ml @ 75 mls/hr [id number] IV 05/29/20 07:30 06/28/20 07:29 05/29/20 09:21 Dextrose (Dextrose 50%) 25 ml Q30M PRN IV Hypoglycemia 05/22/20 18:30 08/20/20 18:29 Dextrose (Dextrose 50%) 50 ml Q30M PRN IV Hypoglycemia 05/22/20 18:30 08/20/20 18:29 Diltiazem HCl (Cardizem Tab) 60 mg EVERY 8 HOURS ORAL 05/16/20 06:00 06/15/20 05:59 05/27/20 14:38 Insulin Aspart (NovoLOG) Q6HR SUBQ 05/23/20 00:00 08/20/20 20:59 05/28/20 06:18 Ipratropium [place] (Atrovent Inh) 1 puffs QID INH 05/27/20 10:00 06/26/20 09:59 05/29/20 08:35 Loperamide HCl (Imodium) 2 mg Q6H PRN NG Diarrhea 05/26/20 17:45 06/25/20 17:44 05/27/20 10:52 Meropenem 500 mg/ Sodium Chloride 55 ml @ 110 mls/hr Q12HR@0200,1400 IVPB 05/26/20 14:00 05/31/20 13:59 05/29/20 02:05 Pantoprazole (Protonix) 40 mg DAILY IVP 05/28/20 09:00 10/31/20 08:59 05/29/20 09:21 Salmeterol Xinafoate/ Fluticasone (Advair 100/50 Diskus) 1 puffs BIDRT INH 05/11/20 22:00 08/09/20 21:59 05/16/20 09:02 Tobramycin Sulfate (Nebcin) 300 mg Q12HR@, INH 05/28/20 22:00 06/04/20 21:59 05/29/20 08:36 Camilo Cameron MD May 29, 2020 11:32
--- NOTE | 2020-05-29 11:39 | NUR ---
NURSE NOTES: Patient stable at this time with no s/sx of pain or distress.
--- NOTE | 2020-05-29 11:54 | Surgery Progress Note ---
Surgery Progress Note Subjective Procedure Performed trach Additional Comments s/p trach discussed with family comfortable weaning Objective Last 24 Hour Vital Signs Date Time Temp Pulse Resp B/P (MAP) Pulse Ox O2 Delivery O2 Flow Rate FiO2 05/29/20 11:00 108 14 135/61 (85) 100 05/29/20 10:02 94 16 100 05/29/20 10:00 96 14 127/59 (81) 100 05/29/20 09:00 96 15 110/51 (70) 100 05/29/20 08:00 92 05/29/20 08:00 98.2 96 18 102/46 (64) 100 05/29/20 08:00 40 05/29/20 08:00 Trach Collar Mechanical Ventilator 05/29/20 07:24 98 16 30 05/29/20 07:00 94 14 101/47 (65) 100 05/29/20 06:00 105 18 102/53 (69) 100 05/29/20 05:31 102 99/51 05/29/20 05:00 99.8 105 17 113/52 (72) 100 05/29/20 04:00 40 05/29/20 04:00 Trach Collar Mechanical Ventilator 05/29/20 04:00 100.6 105 16 109/54 (72) 100 05/29/20 03:07 99 05/29/20 03:00 98 15 100/55 (70) 100 05/29/20 02:30 99 14 30 05/29/20 02:00 102 15 108/49 (68) 100 05/29/20 01:00 105 16 102/48 (66) 100 05/29/20 00:15 108 14 98/48 (65) 100 05/29/20 00:00 Trach Collar Mechanical Ventilator 05/29/20 00:00 99.8 107 14 106/45 (65) 100 05/28/20 23:47 99.9 05/28/20 23:19 110 05/28/20 23:00 109 18 103/45 (64) 100 05/28/20 22:56 110 19 30 05/28/20 22:00 112 21 93/75 (81) 100 05/28/20 21:14 112 17 100 Mechanical Ventilator 30 113 17 05/28/20 21:04 110 96/54 05/28/20 21:00 112 19 96/54 (68) 99 05/28/20 20:00 40 05/28/20 20:00 Trach Collar Mechanical Ventilator 05/28/20 20:00 100.3 112 15 95/52 (66) 100 05/28/20 19:31 108 05/28/20 19:11 112 15 100 Mechanical Ventilator 30 113 15 05/28/20 19:00 103 14 96/50 (65) 05/28/20 18:00 106 18 104/50 (68) 100 05/28/20 17:00 112 14 101/53 (69) 100 05/28/20 16:00 98.8 05/28/20 16:00 Trach Collar Trach Collar 05/28/20 16:00 30 05/28/20 16:00 116 05/28/20 16:00 113 12 101/43 (62) 100 05/28/20 15:37 113 16 100 Mechanical Ventilator 30 113 16 05/28/20 15:00 108 14 105/45 (65) 100 05/28/20 14:00 110 14 112/48 (69) 100 05/28/20 13:00 108 14 106/48 (67) 100 05/28/20 12:30 30 05/28/20 12:14 102 19 99 05/28/20 12:00 Mechanical Ventilator Mechanical Ventilator 05/28/20 12:00 110 14 97/45 (62) 96 05/28/20 12:00 98.2 05/28/20 12:00 110 05/28/20 12:00 30 I&O Intake and Output 05/28/20 05/29/20 19:00 07:00 Intake Total 1435 ml 1446.25 ml Output Total 675 ml 830 ml Balance 760 ml 616.25 ml Free Water 180 ml IV Total 955 ml 786.25 ml Tube Feeding 480 ml 480 ml Output Urine Total 475 ml 630 ml Stool Total 200 ml 200 ml Cardiovascular: RSR Respiratory: decreased breath sounds Abdomen: non-tender, present bowel sounds Extremities: no edema, no tenderness, no cyanosis Laboratory Tests Test 05/29/20 04:00 White Blood Count 5.3 K/UL (4.8-10.8) Red Blood Count 2.86 M/UL (4.20-5.40) L Hemoglobin 7.8 G/DL (12.0-16.0) L Hematocrit 24.0 % (37.0-47.0) L Mean Corpuscular Volume 84 FL (80-99) Mean Corpuscular Hemoglobin 27.4 PG (27.0-31.0) Mean Corpuscular Hemoglobin Concent 32.7 G/DL (32.0-36.0) Red Cell Distribution Width 17.4 % (11.6-14.8) H Platelet Count 182 K/UL (150-450) Mean Platelet Volume 6.8 FL (6.5-10.1) Neutrophils (%) (Auto) % (45.0-75.0) Lymphocytes (%) (Auto) % (20.0-45.0) Monocytes (%) (Auto) % (1.0-10.0) Eosinophils (%) (Auto) % (0.0-3.0) Basophils (%) (Auto) % (0.0-2.0) Sodium Level 150 MMOL/L (136-145) H Potassium Level 4.3 MMOL/L (3.5-5.1) Chloride Level 114 MMOL/L (98-107) H Carbon Dioxide Level 27 MMOL/L (21-32) Anion Gap 9 mmol/L (5-15) Blood Urea Nitrogen 80 mg/dL (7-18) H Creatinine 2.5 MG/DL (0.55-1.30) H Estimat Glomerular Filtration Rate 22.5 mL/min (>60) Glucose Level 117 MG/DL (74-106) H Calcium Level 8.1 MG/DL (8.5-10.1) L Total Bilirubin 0.7 MG/DL (0.2-1.0) Aspartate Amino Transf (AST/SGOT) 44 U/L (15-37) H Alanine Aminotransferase (ALT/SGPT) 75 U/L (12-78) Alkaline Phosphatase 270 U/L (46-116) H Total Protein 5.3 G/DL (6.4-8.2) L Albumin 0.8 G/DL (3.4-5.0) L Globulin 4.5 g/dL Albumin/Globulin Ratio 0.2 (1.0-2.7) L Plan Problems: (1) Elevated troponin (2) Atrial fibrillation with RVR (3) COVID-19 Assessment & Plan: ++ as per pulm and ID trach DAILY ESTIMATED NEEDS: Needs based on Critical Care, ARF/ 56kg abw 22-28 kcals/kg [id number] total kcals 0.8-1.5 (increase w/ renal improvement) g protein/kg 45-84 g total protein 25-30 mL/kg [id number] total fluid mLs NUTRITION DIAGNOSIS: * Altered nutrition related lab values r/t clinical status as evidenced by elev BUN(82), creat(3.8) trending up, critical ABG (low pH, elev CO2)-> now improved. * Swallowing difficulty R/T respiratory status as evidenced by s/p oral intubation, on OGT feeds. 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: SPLITTER HEAD eval post extubation ENTERAL NUTRITION RECOMMENDATIONS: Nepro @ 35ml/hr x 24 hrs to provide 840ml, 1512kcal, 68g prot, 610ml free water * W/ worsening renal fxn, rec to continue Nepro * As tolerated, increase goal rate to 35ml/hr x 24 hrs to meet 100% est kcal/prot needs ADDITIONAL RECOMMENDATIONS: 1) Calibrated bedscale wt 2) Monitor renal fxn and lytes, need to continue Nepro Creat trending up 3) Rec niss w/ solumedrol (4) Community acquired pneumonia (5) COPD (chronic obstructive pulmonary disease) (6) Pulmonary fibrosis (7) Asthma (8) History of asthma (9) NSTEMI (non-ST elevated myocardial infarction) (10) Moderate to severe pulmonary hypertension (11) Asthma exacerbation (12) Abnormal LFTs Assessment & Plan: afebrile, HD stable labs noted lft's elevated US reviewed exam benign gb likely reactive from underlying pathology unlikely cholecystitis clinically fluid overload trend labs will monitor exam clinically covid + prognosis guarded cxr reviewed on abx worsening plan repeat US - noted cannot get hida given covid labs noted worsening leukocytosis Gallbladder demonstrates wall thickening and wall edema, gallbladder wall measuring up to 6 mm thick. There are gallstones. Sonographic Escoto's sign is negative. Common bile duct measures 3 mm in diameter. No intrahepatic biliary ductal dilatation. Liver demonstrates normal echogenicity, no focal abnormali ty. Portal vein and hepatic veins are patent. Pancreas is unremarkable. Spleen is unremarkable. Left kidney measures 9.2 cm in length. Right kidney measures 9.9 cm length. Both kidneys demonstrate normal echogenicity. There is no hydronephrosis. Small cyst is seen in the right kidney. . Abdominal aorta was not imaged . There is trace ascites. There is a small right pleural effusion incidentally noted Impression: Small right pleural effusion. Trace ascites Cholelithiasis. Gallbladder wall thickening may be related to hemodynamic factors causing the pleural fluid and ascites, but could also indicate acute cholecystit is. Consider nuclear medicine hepatobiliary scan if there is high clinical suspicion. Negative for dilated bile ducts Small right renal cyst incidentally noted (13) Acute respiratory failure with hypoxia Assessment & Plan: s/p trach discussed with family comfortable weaning Quentin Sanchez May 29, 2020 11:54
[2020-05-29] MEDS ORDERED: Levofloxacin 500mg tab NG SCH (12:00)
--- NOTE | 2020-05-29 13:18 | NUR ---
NURSE NOTES: Spoke with patient about blood transfusion and patient shook head no when asked if she was agreeing. Will inform daughter and MD. Addendum: 05/29/20 at 1854 by DANIEL HUTSON RN Spoke with daughter who stated she will discuss transfusion with patient.
--- NOTE | 2020-05-29 13:26 | Nephrology Progress Note ---
Assessment/Plan Plan Severe Prerenal Azotemia due to hypoperfusion. GFR seems to be slightly improving. MOF due to Covid 19 MOF. Subjective Subjective Confused Objective Objective Last 24 Hour Vital Signs Date Time Temp Pulse Resp B/P (MAP) Pulse Ox O2 Delivery O2 Flow Rate FiO2 05/29/20 13:00 114 16 116/47 (70) 100 05/29/20 12:00 40 05/29/20 12:00 98.5 112 14 132/62 (85) 100 05/29/20 12:00 Trach Collar Trach Collar 05/29/20 11:00 108 14 135/61 (85) 100 05/29/20 10:02 94 16 100 05/29/20 10:00 96 14 127/59 (81) 100 05/29/20 09:00 96 15 110/51 (70) 100 05/29/20 08:00 92 05/29/20 08:00 98.2 96 18 102/46 (64) 100 05/29/20 08:00 40 05/29/20 08:00 Trach Collar Mechanical Ventilator 05/29/20 07:24 98 16 30 05/29/20 07:00 94 14 101/47 (65) 100 05/29/20 06:00 105 18 102/53 (69) 100 05/29/20 05:31 102 99/51 05/29/20 05:00 99.8 105 17 113/52 (72) 100 05/29/20 04:00 40 05/29/20 04:00 Trach Collar Mechanical Ventilator 05/29/20 04:00 100.6 105 16 109/54 (72) 100 05/29/20 03:07 99 05/29/20 03:00 98 15 100/55 (70) 100 05/29/20 02:30 99 14 30 05/29/20 02:00 102 15 108/49 (68) 100 05/29/20 01:00 105 16 102/48 (66) 100 05/29/20 00:15 108 14 98/48 (65) 100 05/29/20 00:00 Trach Collar Mechanical Ventilator 05/29/20 00:00 99.8 107 14 106/45 (65) 100 05/28/20 23:47 99.9 05/28/20 23:19 110 05/28/20 23:00 109 18 103/45 (64) 100 05/28/20 22:56 110 19 30 05/28/20 22:00 112 21 93/75 (81) 100 05/28/20 21:14 112 17 100 Mechanical Ventilator 30 113 17 05/28/20 21:04 110 96/54 05/28/20 21:00 112 19 96/54 (68) 99 05/28/20 20:00 40 05/28/20 20:00 Trach Collar Mechanical Ventilator 05/28/20 20:00 100.3 112 15 95/52 (66) 100 05/28/20 19:31 108 05/28/20 19:11 112 15 100 Mechanical Ventilator 30 113 15 05/28/20 19:00 103 14 96/50 (65) 05/28/20 18:00 106 18 104/50 (68) 100 05/28/20 17:00 112 14 101/53 (69) 100 05/28/20 16:00 98.8 05/28/20 16:00 Trach Collar Trach Collar 05/28/20 16:00 30 05/28/20 16:00 116 05/28/20 16:00 113 12 101/43 (62) 100 05/28/20 15:37 113 16 100 Mechanical Ventilator 30 113 16 05/28/20 15:00 108 14 105/45 (65) 100 05/28/20 14:00 110 14 112/48 (69) 100 Intake and Output 05/28/20 05/29/20 19:00 07:00 Intake Total 1435 ml 1446.25 ml Output Total 675 ml 830 ml Balance 760 ml 616.25 ml Free Water 180 ml IV Total 955 ml 786.25 ml Tube Feeding 480 ml 480 ml Output Urine Total 475 ml 630 ml Stool Total 200 ml 200 ml Laboratory Tests 05/29/20 04:00: White Blood Count 5.3, Red Blood Count 2.86L, Hemoglobin 7.8L, Hematocrit 24.0L, Mean Corpuscular Volume 84, Mean Corpuscular Hemoglobin 27.4, Mean Corpuscular Hemoglobin Concent 32.7, Red Cell Distribution Width 17.4H, Platelet Count 182, Mean Platelet Volume 6.8, Neutrophils (%) (Auto) , Lymphocytes (%) (Auto) , Monocytes (%) (Auto) , Eosinophils (%) (Auto) , Basophils (%) (Auto) , Sodium Level 150H, Potassium Level 4.3, Chloride Level 114H, Carbon Dioxide Level 27, Anion Gap 9, Blood Urea Nitrogen 80H, Creatinine 2.5H, Estimat Glomerular Filtration Rate 22.5, Glucose Level 117H, Calcium Level 8.1L, Total Bilirubin 0.7, Aspartate Amino Transf (AST/SGOT) 44H, Alanine Aminotransferase (ALT/SGPT) 75, Alkaline Phosphatase 270H, Total Protein 5.3L, Albumin 0.8L, Globulin 4.5, Albumin/Globulin Ratio 0.2L Height (Feet): 5 Height (Inches): 3.00 Weight (Pounds): 174 Objective CV Tach +Irr Trach OK Lungs B Ronchi Abd SNT. BS + E +3 edema Ruth Coyne MD May 29, 2020 13:26
--- NOTE | 2020-05-29 16:00 | NUR ---
NURSE NOTES: Does not want to be cleaned or repositioned. Oral care refused. VSS. No symptoms of pain or distress.
[2020-05-29 17:12] LABS: CALCIUM 8.2 MG/DL (8.5-10.1); CREATININE 2.4 MG/DL (0.55-1.30); POTASSIUM 3.9 MMOL/L (3.5-5.1)
--- NOTE | 2020-05-29 18:00 | NUR ---
NURSE NOTES: Patient refusing insulin. BS close to normal limit. Does not want to be cleaned or repositioned today. Oral care refused. Patient's wishes respected.
--- NOTE | 2020-05-29 19:20 | NUR ---
NURSE NOTES: Pt report received from DANIEL HUTSON RN. pt remains stable. vital signs stable. pt is alert and oriented times 2, able to respond to simple questions. pt is trach vented sating at 99% O2, no acute resp distress noted. pts is on air sampling and monitoring showing ST, no acute cardiac abnormalities noted. pt bed is low, locked, armed, call light within reach, bed rails up times 3. will follow plan of care.
--- NOTE | 2020-05-29 19:41 | NUR ---
NURSE HAND-OFF REPORT: Latest Vital Signs: Temperature 99.2 , Pulse 111 , B/P 109 /54 , Respiratory Rate 15 , O2 SAT 100 , Trach Collar, O2 Flow Rate 4.0 . Vital Sign Comment: STABLE EKG Rhythm: Sinus Tachycardia Rhythm change?: N Notified?: Tracy Linn MD Response: No New Orders Received Latest Lechuga Fall Score: 50 Fall Risk: High Risk Safety Measures: Call light Within Reach, Bed Alarm Zone 1, Side Rails Side Rails x3, Bed position Low and Locked. Fall Precautions: Door Sign Report given to George SALGADO. Patient plan of care endorsed. Endorsed that no labs ordered for tomorrow and that there is no consent for blood transfusion. Daughter will discuss with patient. Patient refusing care.
--- NOTE | 2020-05-29 20:00 | NUR ---
NURSE NOTES: family member outside pts room and also talking to charge hand Tanya.
[2020-05-29] MEDS ORDERED: 1/2 NS 1000ml IV ONE (22:20)
--- NOTE | 2020-05-29 22:25 | General Progress Note ---
Subjective Allergies: Coded Allergies: CIPROFLOXACIN (Verified Allergy, Unknown, 09/27/17) Subjective Above noted d/w technical staff assistant s/p trach yesterday liq stool Objective Last 24 Hour Vital Signs Date Time Temp Pulse Resp B/P (MAP) Pulse Ox O2 Delivery O2 Flow Rate FiO2 05/29/20 21:51 118 107/51 05/29/20 19:30 111 15 100 Mechanical Ventilator 30 115 16 05/29/20 18:45 110 17 109/54 (72) 100 05/29/20 18:00 111 18 115/74 (88) 98 05/29/20 17:00 108 15 113/49 (70) 100 05/29/20 16:00 108 19 105/49 (67) 100 05/29/20 16:00 105 05/29/20 16:00 99.2 05/29/20 16:00 Trach Collar Trach Collar 05/29/20 16:00 40 05/29/20 15:18 107 15 30 05/29/20 15:00 106 16 108/49 (68) 100 05/29/20 14:00 109 18 103/51 (68) 100 05/29/20 13:00 114 16 116/47 (70) 100 05/29/20 12:00 40 05/29/20 12:00 109 05/29/20 12:00 98.5 112 14 132/62 (85) 100 05/29/20 12:00 Trach Collar Trach Collar 05/29/20 11:34 113 17 30 05/29/20 11:00 108 14 135/61 (85) 100 05/29/20 10:02 94 16 100 05/29/20 10:00 96 14 127/59 (81) 100 05/29/20 09:00 96 15 110/51 (70) 100 05/29/20 08:00 92 05/29/20 08:00 98.2 96 18 102/46 (64) 100 05/29/20 08:00 40 05/29/20 08:00 Trach Collar Mechanical Ventilator 05/29/20 07:24 98 16 100 Mechanical Ventilator 30 85 16 05/29/20 07:00 94 14 101/47 (65) 100 05/29/20 06:00 105 18 102/53 (69) 100 05/29/20 05:31 102 99/51 05/29/20 05:00 99.8 105 17 113/52 (72) 100 05/29/20 04:00 40 05/29/20 04:00 Trach Collar Mechanical Ventilator 05/29/20 04:00 100.6 105 16 109/54 (72) 100 05/29/20 03:07 99 05/29/20 03:00 98 15 100/55 (70) 100 05/29/20 02:30 99 14 30 05/29/20 02:00 102 15 108/49 (68) 100 05/29/20 01:00 105 16 102/48 (66) 100 05/29/20 00:15 108 14 98/48 (65) 100 05/29/20 00:00 Trach Collar Mechanical Ventilator 05/29/20 00:00 99.8 107 14 106/45 (65) 100 05/28/20 23:47 99.9 05/28/20 23:19 110 05/28/20 23:00 109 18 103/45 (64) 100 05/28/20 22:56 110 19 30 Intake and Output 05/28/20 05/29/20 19:00 07:00 Intake Total 1435 ml 1446.25 ml Output Total 675 ml 830 ml Balance 760 ml 616.25 ml Free Water 180 ml IV Total 955 ml 786.25 ml Tube Feeding 480 ml 480 ml Output Urine Total 475 ml 630 ml Stool Total 200 ml 200 ml Laboratory Tests 05/28/20 23:19: POC Whole Blood Glucose [Pending] 05/29/20 04:00: White Blood Count 5.3, Red Blood Count 2.86L, Hemoglobin 7.8L, Hematocrit 24.0L, Mean Corpuscular Volume 84, Mean Corpuscular Hemoglobin 27.4, Mean Corpuscular Hemoglobin Concent 32.7, Red Cell Distribution Width 17.4H, Platelet Count 182, Mean Platelet Volume 6.8, Neutrophils (%) (Auto) , Lymphocytes (%) (Auto) , Monocytes (%) (Auto) , Eosinophils (%) (Auto) , Basophils (%) (Auto) , Sodium Level 150H, Potassium Level 4.3, Chloride Level 114H, Carbon Dioxide Level 27, Anion Gap 9, Blood Urea Nitrogen 80H, Creatinine 2.5H, Estimat Glomerular Filtration Rate 22.5, Glucose Level 117H, Calcium Level 8.1L, Total Bilirubin 0.7, Aspartate Amino Transf (AST/SGOT) 44H, Alanine Aminotransferase (ALT/SGPT) 75, Alkaline Phosphatase 270H, Total Protein 5.3L, Albumin 0.8L, Globulin 4.5, Albumin/Globulin Ratio 0.2L 05/29/20 05:47: POC Whole Blood Glucose [Pending] 05/29/20 16:28: Sodium Level 149H, Potassium Level 3.9, Chloride Level 113H, Carbon Dioxide Level 28, Anion Gap 8, Blood Urea Nitrogen 82H, Creatinine 2.4H, Estimat Glomerular Filtration Rate 23.5, Glucose Level 153H, Calcium Level 8.2L Height (Feet): 5 Height (Inches): 3.00 Weight (Pounds): 174 Objective Elderly AA woman seen in ICU exam limited due to COVID isolation comfortable appearing NCAT (+) NG Feeding tube - tolerating well (+) trach abd non distended Assessment/Plan Status: stable Assessment/Plan: Assessment - Transaminitis, likely due to COVID-19 --Improving - Gallstones - Resp failure - s/p trach - Dysphagia - NGT - CHF - Pulm HTN - Arrhythmia - Leukocytosis - Renal failure Recommendations - monitor LFT - Continue TF - Abx - ICU care - trach noted - will consider repeat abd ultrasound - I will return to see patient Monday Justine Torres MD May 29, 2020 22:25
[2020-05-30] VITALS (19 sets, daily range): BP systolic 82–130; BP diastolic 42–65
--- NOTE | 2020-05-30 | NUR ---
NURSE NOTES: pt assessed, vital signs stable. pt turned and repositioned. no acute distress noted at this time. will continue to monitor.
[2020-05-30] MEDS: NovoLOG Insulin Flexpen SUBQ SCH ×4 (00:33→18:00)
--- NOTE | 2020-05-30 01:45 | Cardiology Progress Note ---
Subjective DATE OF SERVICE: May 29, 2020 Condition remains critical; [facility] - failed wean, and trach performed yesterday. Monitor: AFib with episodes of RVR and nonsustained VTach. BP range improved today. Episodes of tachyarrhythmias persist. CXR (05/23) reviewed: patchy left infiltrates with small pl eff'n. ICU logs and cardiology care plan reviewed and updated Objective Last 24 Hour Vital Signs Date Time Temp Pulse Resp B/P (MAP) Pulse Ox O2 Delivery O2 Flow Rate FiO2 05/30/20 00:00 Trach Collar Trach Collar 05/30/20 00:00 40 05/29/20 23:29 118 18 100 Mechanical Ventilator 30 120 18 05/29/20 21:51 118 107/51 05/29/20 20:00 40 05/29/20 20:00 Trach Collar Trach Collar 05/29/20 19:30 111 15 100 Mechanical Ventilator 30 115 16 05/29/20 18:45 110 17 109/54 (72) 100 05/29/20 18:00 111 18 115/74 (88) 98 05/29/20 17:00 108 15 113/49 (70) 100 05/29/20 16:00 108 19 105/49 (67) 100 05/29/20 16:00 105 05/29/20 16:00 99.2 05/29/20 16:00 Trach Collar Trach Collar 05/29/20 16:00 40 05/29/20 15:18 107 15 30 05/29/20 15:00 106 16 108/49 (68) 100 05/29/20 14:00 109 18 103/51 (68) 100 05/29/20 13:00 114 16 116/47 (70) 100 05/29/20 12:00 40 05/29/20 12:00 109 05/29/20 12:00 98.5 112 14 132/62 (85) 100 05/29/20 12:00 Trach Collar Trach Collar 05/29/20 11:34 113 17 30 05/29/20 11:00 108 14 135/61 (85) 100 05/29/20 10:02 94 16 100 05/29/20 10:00 96 14 127/59 (81) 100 05/29/20 09:00 96 15 110/51 (70) 100 05/29/20 08:00 92 05/29/20 08:00 98.2 96 18 102/46 (64) 100 05/29/20 08:00 40 05/29/20 08:00 Trach Collar Mechanical Ventilator 05/29/20 07:24 98 16 100 Mechanical Ventilator 30 85 16 05/29/20 07:00 94 14 101/47 (65) 100 05/29/20 06:00 105 18 102/53 (69) 100 05/29/20 05:31 102 99/51 05/29/20 05:00 99.8 105 17 113/52 (72) 100 05/29/20 04:00 40 05/29/20 04:00 Trach Collar Mechanical Ventilator 05/29/20 04:00 100.6 105 16 109/54 (72) 100 05/29/20 03:07 99 05/29/20 03:00 98 15 100/55 (70) 100 05/29/20 02:30 99 14 30 05/29/20 02:00 102 15 108/49 (68) 100 ROS: unchanged from my eval of 05/03/20 HEENT: Orally intubated, Mechanically Ventilated, Thin secretions ET Tube RHYTHM: Afib LUNGS: no accessory muscle use, expiratory wheezing, diminished breath sounds CARDIAC: normal S1 and S2, no murmur, irregularly irregular ABDOMEN: normal bowel sounds, non tender, soft, no organomegaly EXTREMITIES: no calf tenderness, +1 edema Laboratory Tests Test 05/29/20 04:00 05/29/20 05:47 05/29/20 16:28 White Blood Count 5.3 K/UL (4.8-10.8) Red Blood Count 2.86 M/UL (4.20-5.40) L Hemoglobin 7.8 G/DL (12.0-16.0) L Hematocrit 24.0 % (37.0-47.0) L Mean Corpuscular Volume 84 FL (80-99) Mean Corpuscular Hemoglobin 27.4 PG (27.0-31.0) Mean Corpuscular Hemoglobin Concent 32.7 G/DL (32.0-36.0) Red Cell Distribution Width 17.4 % (11.6-14.8) H Platelet Count 182 K/UL (150-450) Mean Platelet Volume 6.8 FL (6.5-10.1) Neutrophils (%) (Auto) % (45.0-75.0) Lymphocytes (%) (Auto) % (20.0-45.0) Monocytes (%) (Auto) % (1.0-10.0) Eosinophils (%) (Auto) % (0.0-3.0) Basophils (%) (Auto) % (0.0-2.0) Sodium Level 150 MMOL/L (136-145) H 149 MMOL/L (136-145) H Potassium Level 4.3 MMOL/L (3.5-5.1) 3.9 MMOL/L (3.5-5.1) Chloride Level 114 MMOL/L (98-107) H 113 MMOL/L (98-107) H Carbon Dioxide Level 27 MMOL/L (21-32) 28 MMOL/L (21-32) Anion Gap 9 mmol/L (5-15) 8 mmol/L (5-15) Blood Urea Nitrogen 80 mg/dL (7-18) H 82 mg/dL (7-18) H Creatinine 2.5 MG/DL (0.55-1.30) H 2.4 MG/DL (0.55-1.30) H Estimat Glomerular Filtration Rate 22.5 mL/min (>60) 23.5 mL/min (>60) Glucose Level 117 MG/DL (74-106) H 153 MG/DL (74-106) H Calcium Level 8.1 MG/DL (8.5-10.1) L 8.2 MG/DL (8.5-10.1) L Total Bilirubin 0.7 MG/DL (0.2-1.0) Aspartate Amino Transf (AST/SGOT) 44 U/L (15-37) H Alanine Aminotransferase (ALT/SGPT) 75 U/L (12-78) Alkaline Phosphatase 270 U/L (46-116) H Total Protein 5.3 G/DL (6.4-8.2) L Albumin 0.8 G/DL (3.4-5.0) L Globulin 4.5 g/dL Albumin/Globulin Ratio 0.2 (1.0-2.7) L POC Whole Blood Glucose Pending Assessment/Plan Assessment/Plan Acute on chronic respiratory acidosis Acute respiratory failure - s/p trach. Shock LE edema due to severe pulmonary hypertension and right heart strain COPD exacerb with active bronchospasm Lactic acidosis COVID 19 PNA Acute on chr renal failure Chronic systolic/diastolic CHF Pulmonary fibrosis with chronic hypoxia Paroxysmal AFib with RVR Hx Multifocal atrial arrhythmias Pulmonary HTN - severe Hx NSVTach Severe protein/calorie malnutrition Acute myocardial ischemia Worsening transaminitis CRITICAL & GUARDED Vent support with on-going weaning efforts following trach Hold diltiazem for low BP, but titrate for optimal rate control; cautiously add digoxin Steroids per pulmonary Inhaled bronchodilators Hypotonic IVF until free water deficit corrected Full anticoagulation for cardioembolic prophyl - resumption post procedures. Isolation Anti-viral rx per ID Monitor liver fxSimone Magallanes MD May 30, 2020 01:45
--- NOTE | 2020-05-30 02:00 | NUR ---
NURSE NOTES: pt turned cleaned and repositioned, all medical devices assessed. vital signs stable.
[2020-05-30] MEDS: dilTIAZem HCl 60mg tab ORAL SCH ×3 (06:21→21:46)
--- NOTE | 2020-05-30 07:10 | NUR ---
NURSE HAND-OFF REPORT: Latest Vital Signs: Temperature 100.8 , Pulse 131 , B/P 89 /52 , Respiratory Rate 15 , O2 SAT 99 , Trach Collar, O2 Flow Rate 4.0 . Vital Sign Comment: [STABLE] EKG Rhythm: Sinus Tachycardia Rhythm change?: N Notified?: Tracy Linn MD Response: No New Orders Received Latest Lechuga Fall Score: 50 Fall Risk: High Risk Safety Measures: Call light Within Reach, Bed Alarm Zone 1, Side Rails Side Rails x3, Bed position Low and Locked. Fall Precautions: Door Sign Report given to [JOHN SALGADO].
--- NOTE | 2020-05-30 07:39 | NUR ---
NURSE NOTES: Received report from Richar Byrne RN. Pt is lying in bed, trached to vent with the following setting AC14, TV500, FiO2 40%, PEEP 5. Tolerating well. NGT in R nares running Vital AF 40cc/hr, with Q3 water flush of 125cc/hr. No grimacing noted. HOB elevated at all times. No N/V noted. Rectal tube and mueller catheter is intact and patent. IV is in R hand 20 G intact and patent and running 75 cc/hr. Bed locked and in lowest position, call light within reach. Will continue to monitor pt.
[2020-05-30] MEDS: Ipratropium Bromide Inhaler INH SCH ×4 (08:13→21:00)
--- NOTE | 2020-05-30 08:15 | NUR ---
NURSE NOTES: Pt's temperature is 100.8*F. Sponge bath and cold compress done. Will continue to assess and monitor pt.
--- NOTE | 2020-05-30 08:22 | General Progress Note ---
Subjective ROS Limited/Unobtainable: No Allergies: Coded Allergies: CIPROFLOXACIN (Verified Allergy, Unknown, 09/27/17) Objective Last 24 Hour Vital Signs Date Time Temp Pulse Resp B/P (MAP) Pulse Ox O2 Delivery O2 Flow Rate FiO2 05/30/20 08:00 100.8 131 15 89/52 (64) 99 05/30/20 07:00 135 21 100 05/30/20 06:21 132 115/56 05/30/20 06:00 133 23 124/54 (77) 96 05/30/20 05:00 128 23 129/51 (77) 100 05/30/20 04:00 40 05/30/20 04:00 Trach Collar Trach Collar 05/30/20 04:00 98.8 127 20 130/57 (81) 100 05/30/20 03:44 122 17 30 05/30/20 03:00 122 15 123/54 (77) 100 05/30/20 02:00 120 16 115/54 (74) 99 05/30/20 01:00 121 16 111/56 (74) 100 05/30/20 00:00 112 05/30/20 00:00 99.1 118 16 114/50 (71) 100 05/30/20 00:00 Trach Collar Trach Collar 05/30/20 00:00 40 05/29/20 23:29 118 18 100 Mechanical Ventilator 30 120 18 05/29/20 23:00 120 17 109/53 (71) 100 05/29/20 22:00 118 16 107/49 (68) 100 05/29/20 21:51 118 107/51 05/29/20 21:00 115 15 110/52 (71) 100 05/29/20 20:00 40 05/29/20 20:00 98.9 113 16 110/51 (70) 100 05/29/20 20:00 108 05/29/20 20:00 Trach Collar Trach Collar 05/29/20 19:30 111 15 100 Mechanical Ventilator 30 115 16 05/29/20 18:45 110 17 109/54 (72) 100 05/29/20 18:00 111 18 115/74 (88) 98 05/29/20 17:00 108 15 113/49 (70) 100 05/29/20 16:00 108 19 105/49 (67) 100 05/29/20 16:00 105 05/29/20 16:00 99.2 05/29/20 16:00 Trach Collar Trach Collar 05/29/20 16:00 40 05/29/20 15:18 107 15 30 05/29/20 15:00 106 16 108/49 (68) 100 05/29/20 14:00 109 18 103/51 (68) 100 05/29/20 13:00 114 16 116/47 (70) 100 05/29/20 12:00 40 05/29/20 12:00 109 05/29/20 12:00 98.5 112 14 132/62 (85) 100 05/29/20 12:00 Trach Collar Trach Collar 05/29/20 11:34 113 17 30 05/29/20 11:00 108 14 135/61 (85) 100 05/29/20 10:02 94 16 100 05/29/20 10:00 96 14 127/59 (81) 100 05/29/20 09:00 96 15 110/51 (70) 100 Intake and Output 05/29/20 05/30/20 19:00 07:00 Intake Total 1880.0 ml 1730 ml Output Total 860 ml 700 ml Balance 1020.0 ml 1030 ml Free Water 500 ml 500 ml IV Total 900.0 ml 750 ml Tube Feeding 480 ml 480 ml Output Urine Total 760 ml 600 ml Stool Total 100 ml 100 ml Laboratory Tests 05/29/20 16:28: Sodium Level 149H, Potassium Level 3.9, Chloride Level 113H, Carbon Dioxide Level 28, Anion Gap 8, Blood Urea Nitrogen 82H, Creatinine 2.4H, Estimat Glomerular Filtration Rate 23.5, Glucose Level 153H, Calcium Level 8.2L 05/30/20 06:17: POC Whole Blood Glucose [Pending] Height (Feet): 5 Height (Inches): 3.00 Weight (Pounds): 174 General Appearance: no apparent distress EENT: normal ENT inspection Neck: supple Cardiovascular: normal rate Respiratory/Chest: decreased breath sounds Abdomen: normal bowel sounds, non tender, soft Extremities: non-tender Assessment/Plan Status: stable Assessment/Plan: Assessment - Transaminitis, likely due to COVID-19 --Improving - Gallstones - Resp failure - s/p trach - Dysphagia - NGT - CHF - Pulm HTN - Arrhythmia - Leukocytosis - Renal failure Recommendations - monitor LFT - Continue TF - Abx - ICU care - trach noted - will consider repeat abd ultrasound Greyson Rivera MD May 30, 2020 08:22
[2020-05-30] MEDS: Pantoprazole Inj IVP SCH (08:31)
--- NOTE | 2020-05-30 09:24 | Surgery Progress Note ---
Surgery Progress Note Subjective Procedure Performed trach Symptoms: improved, tolerating diet Objective Last 24 Hour Vital Signs Date Time Temp Pulse Resp B/P (MAP) Pulse Ox O2 Delivery O2 Flow Rate FiO2 05/30/20 08:00 100.8 131 15 89/52 (64) 99 05/30/20 08:00 40 05/30/20 07:20 125 26 100 Mechanical Ventilator 30 124 26 05/30/20 07:00 135 21 100 05/30/20 06:21 132 115/56 05/30/20 06:00 133 23 124/54 (77) 96 05/30/20 05:00 128 23 129/51 (77) 100 05/30/20 04:00 125 05/30/20 04:00 40 05/30/20 04:00 Trach Collar Trach Collar 05/30/20 04:00 98.8 127 20 130/57 (81) 100 05/30/20 03:44 122 17 30 05/30/20 03:00 122 15 123/54 (77) 100 05/30/20 02:00 120 16 115/54 (74) 99 05/30/20 01:00 121 16 111/56 (74) 100 05/30/20 00:00 118 05/30/20 00:00 99.1 118 16 114/50 (71) 100 05/30/20 00:00 Trach Collar Trach Collar 05/30/20 00:00 40 05/29/20 23:29 118 18 100 Mechanical Ventilator 30 120 18 05/29/20 23:00 120 17 109/53 (71) 100 05/29/20 22:00 118 16 107/49 (68) 100 05/29/20 21:51 118 107/51 05/29/20 21:00 115 15 110/52 (71) 100 05/29/20 20:00 40 05/29/20 20:00 98.9 113 16 110/51 (70) 100 05/29/20 20:00 112 05/29/20 20:00 Trach Collar Trach Collar 05/29/20 19:30 111 15 100 Mechanical Ventilator 30 115 16 05/29/20 18:45 110 17 109/54 (72) 100 05/29/20 18:00 111 18 115/74 (88) 98 05/29/20 17:00 108 15 113/49 (70) 100 05/29/20 16:00 108 19 105/49 (67) 100 05/29/20 16:00 105 05/29/20 16:00 99.2 05/29/20 16:00 Trach Collar Trach Collar 05/29/20 16:00 40 05/29/20 15:18 107 15 30 05/29/20 15:00 106 16 108/49 (68) 100 05/29/20 14:00 109 18 103/51 (68) 100 05/29/20 13:00 114 16 116/47 (70) 100 05/29/20 12:00 40 05/29/20 12:00 109 05/29/20 12:00 98.5 112 14 132/62 (85) 100 05/29/20 12:00 Trach Collar Trach Collar 05/29/20 11:34 113 17 30 05/29/20 11:00 108 14 135/61 (85) 100 05/29/20 10:02 94 16 100 05/29/20 10:00 96 14 127/59 (81) 100 I&O Intake and Output 05/29/20 05/30/20 19:00 07:00 Intake Total 1880.0 ml 1730 ml Output Total 860 ml 700 ml Balance 1020.0 ml 1030 ml Free Water 500 ml 500 ml IV Total 900.0 ml 750 ml Tube Feeding 480 ml 480 ml Output Urine Total 760 ml 600 ml Stool Total 100 ml 100 ml Dressing: dry Wound: clean Cardiovascular: RSR Respiratory: decreased breath sounds Abdomen: non-tender, present bowel sounds Extremities: no edema, no tenderness, no cyanosis Laboratory Tests Test 05/29/20 16:28 05/30/20 06:17 Sodium Level 149 MMOL/L (136-145) H Potassium Level 3.9 MMOL/L (3.5-5.1) Chloride Level 113 MMOL/L (98-107) H Carbon Dioxide Level 28 MMOL/L (21-32) Anion Gap 8 mmol/L (5-15) Blood Urea Nitrogen 82 mg/dL (7-18) H Creatinine 2.4 MG/DL (0.55-1.30) H Estimat Glomerular Filtration Rate 23.5 mL/min (>60) Glucose Level 153 MG/DL (74-106) H Calcium Level 8.2 MG/DL (8.5-10.1) L POC Whole Blood Glucose Pending Plan Problems: (1) Elevated troponin (2) Atrial fibrillation with RVR (3) COVID-19 Assessment & Plan: ++ as per pulm and ID trach DAILY ESTIMATED NEEDS: Needs based on Critical Care, ARF/ 56kg abw 22-28 kcals/kg 5371-2270 total kcals 0.8-1.5 (increase w/ renal improvement) g protein/kg 45-84 g total protein 25-30 mL/kg 5226-4547 total fluid mLs NUTRITION DIAGNOSIS: * Altered nutrition related lab values r/t clinical status as evidenced by elev BUN(82), creat(3.8) trending up, critical ABG (low pH, elev CO2)-> now improved. * Swallowing difficulty R/T respiratory status as evidenced by s/p oral intubation, on OGT feeds. 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: VAMPER eval post extubation ENTERAL NUTRITION RECOMMENDATIONS: Nepro @ 35ml/hr x 24 hrs to provide 840ml, 1512kcal, 68g prot, 610ml free water * W/ worsening renal fxn, rec to continue Nepro * As tolerated, increase goal rate to 35ml/hr x 24 hrs to meet 100% est kcal/prot needs ADDITIONAL RECOMMENDATIONS: 1) Calibrated bedscale wt 2) Monitor renal fxn and lytes, need to continue Nepro Creat trending up 3) Rec niss w/ solumedrol (4) Community acquired pneumonia (5) COPD (chronic obstructive pulmonary disease) (6) Pulmonary fibrosis (7) Asthma (8) History of asthma (9) NSTEMI (non-ST elevated myocardial infarction) (10) Moderate to severe pulmonary hypertension (11) Asthma exacerbation (12) Abnormal LFTs Assessment & Plan: afebrile, HD stable labs noted lft's elevated US reviewed exam benign gb likely reactive from underlying pathology unlikely cholecystitis clinically fluid overload trend labs will monitor exam clinically covid + prognosis guarded cxr reviewed on abx worsening plan repeat US - noted cannot get hida given covid labs noted worsening leukocytosis Gallbladder demonstrates wall thickening and wall edema, gallbladder wall measuring up to 6 mm thick. There are gallstones. Sonographic Escoto's sign is negative. Common bile duct measures 3 mm in diameter. No intrahepatic biliary ductal dilatation. Liver demonstrates normal echogenicity, no focal abnormality. Portal vein and hepatic veins are patent. Pancreas is unremarkable. Spleen is unremarkable. Left kidney measures 9.2 cm in length. Right kidney measures 9.9 cm length. Both kidneys demonstrate normal echogenicity. There is no hydronephrosis. Small cyst is seen in the right kidney. . Abdominal aorta was not imaged . There is trace ascites. There is a small right pleural effusion incidentally noted Impression: Small right pleural effusion. Trace ascites Cholelithiasis. Gallbladder wall thickening may be related to hemodynamic factors causing the pleural fluid and ascites, but could also indicate acute cholecystitis. Consider nuclear medicine hepatobiliary scan if there is high clinical suspicion. Negative for dilated bile ducts Small right renal cyst incidentally noted (13) Acute respiratory failure with hypoxia Assessment & Plan: s/p trach discussed with family comfortable weaning Quentin Sanchez May 30, 2020 09:24
[2020-05-30] MEDS: Acetaminophen 650mg/20.3ml NG PRN ×2 (09:51→21:47)
[2020-05-30] MEDS: Wixela 100/50 Inhaler - 60 dose INH SCH ×2 (10:00→21:02)
--- NOTE | 2020-05-30 10:00 | NUR ---
NURSE NOTES: Dtr. of pt. went to visit. Sat outside pt. door. Pt. remain stable.
--- NOTE | 2020-05-30 11:00 | NUR ---
NURSE NOTES: Cont. to do cooling measure. Room temp. is hot. Temp. of pt. went to 99.5F
--- NOTE | 2020-05-30 13:00 | NUR ---
NURSE NOTES: Turned and repositioned. Suctioned. V/S WNL.
[2020-05-30] MEDS ORDERED: 1/2 NS 1000ml IV ONE (13:02)
--- NOTE | 2020-05-30 13:56 | General Progress Note ---
Subjective ROS Limited/Unobtainable: No Constitutional: Reports: malaise, weakness HEENT: Reports: no symptoms Cardiovascular: Reports: no symptoms Respiratory: Reports: cough, shortness of breath, sputum Gastrointestinal/Abdominal: Reports: difficulty swallowing Genitourinary: Reports: no symptoms Neurologic/Psychiatric: Reports: no symptoms Endocrine: Reports: no symptoms Hematologic/Lymphatic: Reports: anemia Allergies: Coded Allergies: CIPROFLOXACIN (Verified Allergy, Unknown, 09/27/17) All Systems: reviewed and negative except above Subjective no events. stable on the vent. tolerating feeds. no vomiting. on ivf. no reports of bleeding. Objective Last 24 Hour Vital Signs Date Time Temp Pulse Resp B/P (MAP) Pulse Ox O2 Delivery O2 Flow Rate FiO2 05/30/20 13:00 115 16 94/46 (62) 100 05/30/20 12:00 126 05/30/20 12:00 99.0 122 21 101/48 (65) 100 05/30/20 12:00 Trach Collar Trach Collar 05/30/20 12:00 40 05/30/20 11:27 126 21 30 05/30/20 11:00 128 19 93/50 (64) 100 05/30/20 10:21 99.6 05/30/20 10:00 131 20 106/54 (71) 100 05/30/20 10:00 124 15 93/50 (64) 100 05/30/20 09:00 130 22 105/48 (67) 100 05/30/20 08:00 100.8 131 15 89/52 (64) 99 05/30/20 08:00 133 05/30/20 08:00 40 05/30/20 08:00 Trach Collar Trach Collar 05/30/20 08:00 131 15 89/52 (64) 99 05/30/20 07:20 125 26 100 Mechanical Ventilator 30 124 26 05/30/20 07:00 135 21 100 05/30/20 06:21 132 115/56 05/30/20 06:00 133 23 124/54 (77) 96 05/30/20 05:00 128 23 129/51 (77) 100 05/30/20 04:00 125 05/30/20 04:00 40 05/30/20 04:00 Trach Collar Trach Collar 05/30/20 04:00 98.8 127 20 130/57 (81) 100 05/30/20 03:44 122 17 30 05/30/20 03:00 122 15 123/54 (77) 100 05/30/20 02:00 120 16 115/54 (74) 99 05/30/20 01:00 121 16 111/56 (74) 100 05/30/20 00:00 118 05/30/20 00:00 99.1 118 16 114/50 (71) 100 05/30/20 00:00 Trach Collar Trach Collar 05/30/20 00:00 40 05/29/20 23:29 118 18 100 Mechanical Ventilator 30 120 18 05/29/20 23:00 120 17 109/53 (71) 100 05/29/20 22:00 118 16 107/49 (68) 100 05/29/20 21:51 118 107/51 05/29/20 21:00 115 15 110/52 (71) 100 05/29/20 20:00 40 05/29/20 20:00 98.9 113 16 110/51 (70) 100 05/29/20 20:00 112 05/29/20 20:00 Trach Collar Trach Collar 05/29/20 19:30 111 15 100 Mechanical Ventilator 30 115 16 05/29/20 18:45 110 17 109/54 (72) 100 05/29/20 18:00 111 18 115/74 (88) 98 05/29/20 17:00 108 15 113/49 (70) 100 05/29/20 16:00 108 19 105/49 (67) 100 05/29/20 16:00 105 05/29/20 16:00 99.2 05/29/20 16:00 Trach Collar Trach Collar 05/29/20 16:00 40 05/29/20 15:18 107 15 30 05/29/20 15:00 106 16 108/49 (68) 100 05/29/20 14:00 109 18 103/51 (68) 100 Intake and Output 05/29/20 05/30/20 19:00 07:00 Intake Total 1880.0 ml 1730 ml Output Total 860 ml 700 ml Balance 1020.0 ml 1030 ml Free Water 500 ml 500 ml IV Total 900.0 ml 750 ml Tube Feeding 480 ml 480 ml Output Urine Total 760 ml 600 ml Stool Total 100 ml 100 ml Laboratory Tests 05/29/20 16:28: Sodium Level 149H, Potassium Level 3.9, Chloride Level 113H, Carbon Dioxide Level 28, Anion Gap 8, Blood Urea Nitrogen 82H, Creatinine 2.4H, Estimat Glomerular Filtration Rate 23.5, Glucose Level 153H, Calcium Level 8.2L 05/30/20 06:17: POC Whole Blood Glucose [Pending] 05/30/20 11:17: POC Whole Blood Glucose 132H Height (Feet): 5 Height (Inches): 3.00 Weight (Pounds): 174 Objective General Appearance: WD/WN, no apparent distress, alert. orally intubated EENT: PERRL/EOMI Neck: non-tender, normal alignment, supple Cardiovascular: normal rate, regular rhythm Respiratory/Chest: chest wall non-tender, lungs clear, normal breath sounds, no respiratory distress, no accessory muscle use Abdomen: normal bowel sounds, non tender, soft, no organomegaly Edema: no edema noted Arm (L), no edema noted Arm (R) Neurologic: analysis analyst II-XII grossly normal, alert, oriented x 3, responsive Skin: normal pigmentation Lymphatic: normal anterior cervical (L), normal anterior cervical (R) Assessment/Plan Problem List: (1) Pulmonary fibrosis ICD Codes: J84.10 - Pulmonary fibrosis, unspecified SNOMED: 54142485 (2) History of asthma ICD Codes: Z87.09 - Personal history of other diseases of the respiratory system SNOMED: 168587075 (3) Asthma ICD Codes: J45.909 - Unspecified asthma, uncomplicated SNOMED: 659380468 (4) NSTEMI (non-ST elevated myocardial infarction) ICD Codes: I21.4 - Non-ST elevation (NSTEMI) myocardial infarction SNOMED: 085566774 (5) Elevated troponin ICD Codes: R79.89 - Other specified abnormal findings of blood chemistry SNOMED: 873719621, 695207315, 353847035 (6) COPD (chronic obstructive pulmonary disease) ICD Codes: J44.9 - Chronic obstructive pulmonary disease, unspecified SNOMED: 00247646 (7) Atrial fibrillation with RVR ICD Codes: I48.91 - Unspecified atrial fibrillation SNOMED: 393862497652429 (8) Community acquired pneumonia ICD Codes: J18.9 - Pneumonia, unspecified organism SNOMED: 210773719 Status: stable Assessment/Plan: cont iv abx- matthew and inh tobra water flushes via ngt monitor renal fxn/lytes ivf adjusted to d5w ngt feeds gt next week tylenol for fever wean vent as able BP rx keep dry cardizem for rate control dvt/stress ulcer prophylaxis skin care imodium trach care eliquis and aspirin on hold for procedures turn q2 critical and guarded Bradford Linn MD May 30, 2020 13:56
--- NOTE | 2020-05-30 15:55 | Pulmonolgy Critical Care Note ---
Critical Care - Asmt/Plan Assessment/Plan: Pulmonary CCM Progress Note Subjective ROS Limited/Unobtainable: Yes Constitutional: Reports: fever, other - Eo=002.5 Musculoskeletal: Denies: pain Allergies: Coded Allergies: CIPROFLOXACIN (Verified Allergy, Unknown, 09/27/17) All Systems: reviewed and negative except above Subjective on vent pulse rate better comfortable sedated reduced LOC ICU care reviewed Objective Vital Signs noted Objective deferred due to COVID Microbiology Date/Time Source Procedure Growth Status 05/26/20 17:55 Rectum Stool Culture - Preliminary NORMAL FECAL ERICKA. Resulted 05/26/20 12:10 Blood Blood Culture - Preliminary NO GROWTH AFTER 48 HOURS Resulted 05/26/20 12:00 Urine,Clean Catch Urine Culture - Final Sherly Species Complete 05/26/20 11:40 Nasopharynx SARS-CoV-2 RdRp Gene Assay - Final Complete 05/26/20 11:40 Sputum Induced Gram Stain - Final Complete 05/26/20 11:40 Sputum Culture - Final Pseudomonas Aeruginosa Complete Laboratory Tests noted Assessment/Plan Impression: COVID-19 Chronic obstructive pulmonary disease/Asthma Community acquired pneumonia Atrial fibrillation with RVR Elevated troponin Congestive heart Failure sinus tachycardia Hypoxemia transaminitis with gallstones acute on chronic renal failure acute respiratory failure hypotension tachycardia transaminitis MODS anemia Plan ID noted transfuse PRN gi follow up monitor heart rate on cardizem Vent support/and trach surgery for trach in am wean oxygen - low flow at present feeds per dietary and monitor residuals IV therapy noted Bronchodilator therapy Eliquis on hold GT needed Monitor labs/ renal follow up - renal function still reduced- renal following Covid 19 Isolation- per ID nutrition and NG feeds reviewed care and optimize position change and monitor skin surgical follow up noted monitor protein levels and adjust will d/w daughter; ok for trach and peg and would want to take patient home position change and monitor skin medications/laboratory data/nursing notes/ICU care reviewed in detail note reviewed and edited care discussed with RN and RT ICU time spent >40 minutes Critical Care - Objective Last 24 Hour Vital Signs Date Time Temp Pulse Resp B/P (MAP) Pulse Ox O2 Delivery O2 Flow Rate FiO2 05/30/20 15:00 108 14 85/42 (56) 100 05/30/20 14:00 115 19 106/47 (66) 100 05/30/20 14:00 115 106/47 05/30/20 13:50 117 20 100 Mechanical Ventilator 30 117 20 10/3/20 13:00 115 16 94/46 (62) 100 05/30/20 12:00 126 05/30/20 12:00 99.0 122 21 101/48 (65) 100 05/30/20 12:00 Trach Collar Trach Collar 05/30/20 12:00 40 05/30/20 11:27 126 21 30 05/30/20 11:00 128 19 93/50 (64) 100 05/30/20 10:21 99.6 05/30/20 10:00 131 20 106/54 (71) 100 05/30/20 10:00 124 15 93/50 (64) 100 05/30/20 09:00 130 22 105/48 (67) 100 05/30/20 08:00 100.8 131 15 89/52 (64) 99 05/30/20 08:00 133 05/30/20 08:00 40 05/30/20 08:00 Trach Collar Trach Collar 05/30/20 08:00 131 15 89/52 (64) 99 05/30/20 07:20 125 26 100 Mechanical Ventilator 30 124 26 05/30/20 07:00 135 21 100 05/30/20 06:21 132 115/56 05/30/20 06:00 133 23 124/54 (77) 96 05/30/20 05:00 128 23 129/51 (77) 100 05/30/20 04:00 125 05/30/20 04:00 40 05/30/20 04:00 Trach Collar Trach Collar 05/30/20 04:00 98.8 127 20 130/57 (81) 100 05/30/20 03:44 122 17 30 05/30/20 03:00 122 15 123/54 (77) 100 05/30/20 02:00 120 16 115/54 (74) 99 05/30/20 01:00 121 16 111/56 (74) 100 05/30/20 00:00 118 05/30/20 00:00 99.1 118 16 114/50 (71) 100 05/30/20 00:00 Trach Collar Trach Collar 05/30/20 00:00 40 05/29/20 23:29 118 18 100 Mechanical Ventilator 30 120 18 05/29/20 23:00 120 17 109/53 (71) 100 05/29/20 22:00 118 16 107/49 (68) 100 05/29/20 21:51 118 107/51 05/29/20 21:00 115 15 110/52 (71) 100 05/29/20 20:00 40 05/29/20 20:00 98.9 113 16 110/51 (70) 100 05/29/20 20:00 112 05/29/20 20:00 Trach Collar Trach Collar 05/29/20 19:30 111 15 100 Mechanical Ventilator 30 115 16 05/29/20 18:45 110 17 109/54 (72) 100 05/29/20 18:00 111 18 115/74 (88) 98 05/29/20 17:00 108 15 113/49 (70) 100 05/29/20 16:00 108 19 105/49 (67) 100 05/29/20 16:00 105 05/29/20 16:00 99.2 05/29/20 16:00 Trach Collar Trach Collar 05/29/20 16:00 40 Accucheck: 135 Critical Care - Subjective ROS Limited/Unobtainable: Yes Condition: critical FI02: 30 Vent Support Breath Rate: 14 Vent Support Mode: AC Vent Tidal Volume: 500 Sputum Amount: Small PEEP: 5.0 PIP: 30 Tube Feeding Amount: 40 I&O: Intake and Output 05/29/20 05/30/20 19:00 07:00 Intake Total 1880.0 ml 1730 ml Output Total 860 ml 700 ml Balance 1020.0 ml 1030 ml Free Water 500 ml 500 ml IV Total 900.0 ml 750 ml Tube Feeding 480 ml 480 ml Output Urine Total 760 ml 600 ml Stool Total 100 ml 100 ml ET-Tube: 7.5 ET Position: 20 Simone Anguiano MD May 30, 2020 15:55
--- NOTE | 2020-05-30 16:00 | NUR ---
NURSE NOTES: Family visiting. Son at the door. Pt. seem happy to see her son. In good spirit waving back to her son.
--- NOTE | 2020-05-30 16:15 | NUR ---
NURSE NOTES: Pt is given complete bed bath, pt is tolerating well. Remained stable, not in distress. Oral and trach suction done. Will continue to monitor pt.
--- NOTE | 2020-05-30 17:19 | NUR ---
NURSE NOTES: Pt. remain stable. Afebrile.
[2020-05-30 18:27] LABS: HEMATOCRIT 24.3 % (37.0-47.0); HEMOGLOBIN 7.6 G/DL (12.0-16.0); MEAN CORPUSCULAR VOLUME 88 FL (80-99); PLATELET COUNT 192 K/UL (150-450); RED BLOOD COUNT 2.77 M/UL (4.20-5.40); RED CELL DISTRIBUTION WIDTH 18.4 % (11.6-14.8); WHITE BLOOD COUNT 4.6 K/UL (4.8-10.8)
[2020-05-30 18:40] LABS: ALBUMIN 0.7 G/DL (3.4-5.0); ALBUMIN/GLOBULIN RATIO 0.1 (1.0-2.7); BILIRUBIN,TOTAL 0.5 MG/DL (0.2-1.0); CREATININE 2.3 MG/DL (0.55-1.30); POTASSIUM 3.6 MMOL/L (3.5-5.1)
--- NOTE | 2020-05-30 19:22 | NUR ---
NURSE HAND-OFF REPORT: Important Events on Shift: Moved to RK Patient Status: STABLE Diet: VITAL AF Pending Orders: Pending Results/Labs: Pending MD notification: Latest Vital Signs: Temperature 98.0 , Pulse 112 , B/P 104 /58 , Respiratory Rate 14 , O2 SAT 100 , Trach Collar, O2 Flow Rate 4.0 . Vital Sign Comment: EKG Rhythm: Sinus Tachycardia Rhythm change?: N MD Notified?: Tracy Linn MD Response: No New Orders Received Latest Lechuga Fall Score: 70 Fall Risk: High Risk Safety Measures: Call light Within Reach, Bed Alarm Zone 1, Side Rails Side Rails x3, Bed position Low and Locked. Fall Precautions: Door Sign Report given to ISIAH SALGADO.
--- NOTE | 2020-05-30 19:30 | NUR ---
NURSE NOTES: Report received from DAMIAN Russell. Observed pt lying in the bed, awake, able to make needs known. ST on panel monitor, HR of 115 noted. Trach to vent Shiley 8, AC 14, TV 500, FIO2 40%, PEEP 5. NGT on L nares, intact, flushing well and running Vital AF at 40cc/hr. Rectal tube intact. F/C intact. Bed in the lowest position. Side rails up x3. Will continue to monitor.
--- NOTE | 2020-05-30 23:24 | Cardiology Progress Note ---
Subjective DATE OF SERVICE: May 30, 2020 Condition remains critical; patient remains on [facility] ventilation - failed wean, and now s/p trach. Monitor: AFib with episodes of RVR and nonsustained VTach. BP range improved today, but still with episodes of low BP. Episodes of tachyarrhythmias persist. CXR (05/24) reviewed: patchy left infiltrates with small pl eff'n - unchanged. ICU logs and cardiology care plan reviewed and updated Objective Last 24 Hour Vital Signs Date Time Temp Pulse Resp B/P (MAP) Pulse Ox O2 Delivery O2 Flow Rate FiO2 05/30/20 23:13 116 15 100 Mechanical Ventilator 30 116 15 05/30/20 22:17 99.0 05/30/20 21:46 118 107/53 05/30/20 20:00 40 05/30/20 20:00 118 05/30/20 20:00 119 14 111/57 (75) 100 05/30/20 20:00 Trach Collar Trach Collar 05/30/20 19:05 111 14 100 Mechanical Ventilator 30 111 14 05/30/20 18:00 112 14 104/58 (73) 100 05/30/20 18:00 98.0 110 15 99/55 (70) 100 05/30/20 17:00 111 15 82/65 (71) 100 05/30/20 16:00 40 05/30/20 16:00 Trach Collar Trach Collar 05/30/20 16:00 112 05/30/20 16:00 40 05/30/20 16:00 113 19 112/50 (70) 100 05/30/20 15:10 110 18 30 05/30/20 15:00 108 14 85/42 (56) 100 05/30/20 14:00 115 19 106/47 (66) 100 05/30/20 14:00 115 106/47 05/30/20 13:50 117 20 100 Mechanical Ventilator 30 117 20 05/30/20 13:00 115 16 94/46 (62) 100 05/30/20 12:00 126 05/30/20 12:00 99.0 122 21 101/48 (65) 100 05/30/20 12:00 Trach Collar Trach Collar 05/30/20 12:00 40 05/30/20 11:27 126 21 30 05/30/20 11:00 128 19 93/50 (64) 100 05/30/20 10:21 99.6 05/30/20 10:00 131 20 106/54 (71) 100 05/30/20 10:00 124 15 93/50 (64) 100 05/30/20 09:00 130 22 105/48 (67) 100 05/30/20 08:00 100.8 131 15 89/52 (64) 99 05/30/20 08:00 133 05/30/20 08:00 40 05/30/20 08:00 Trach Collar Trach Collar 05/30/20 08:00 131 15 89/52 (64) 99 05/30/20 07:20 125 26 100 Mechanical Ventilator 30 124 26 05/30/20 07:00 135 21 100 05/30/20 06:21 132 115/56 05/30/20 06:00 133 23 124/54 (77) 96 05/30/20 05:00 128 23 129/51 (77) 100 05/30/20 04:00 125 05/30/20 04:00 40 05/30/20 04:00 Trach Collar Trach Collar 05/30/20 04:00 98.8 127 20 130/57 (81) 100 05/30/20 03:44 122 17 30 05/30/20 03:00 122 15 123/54 (77) 100 05/30/20 02:00 120 16 115/54 (74) 99 05/30/20 01:00 121 16 111/56 (74) 100 05/30/20 00:00 118 05/30/20 00:00 99.1 118 16 114/50 (71) 100 05/30/20 00:00 Trach Collar Trach Collar 05/30/20 00:00 40 05/29/20 23:29 118 18 100 Mechanical Ventilator 30 120 18 ROS: unchanged from my eval of 05/03/20 HEENT: Orally intubated, Mechanically Ventilated, Thin secretions ET Tube RHYTHM: Afib LUNGS: no accessory muscle use, expiratory wheezing, diminished breath sounds CARDIAC: normal S1 and S2, no murmur, irregularly irregular ABDOMEN: normal bowel sounds, non tender, soft, no organomegaly EXTREMITIES: no calf tenderness, +1 edema Laboratory Tests Test 05/30/20 06:17 05/30/20 11:17 05/30/20 18:05 05/30/20 22:55 POC Whole Blood Glucose Pending 132 MG/DL (74-106) H 128 MG/DL (74-106) H White Blood Count 4.6 K/UL (4.8-10.8) L Red Blood Count 2.77 M/UL (4.20-5.40) L Hemoglobin 7.6 G/DL (12.0-16.0) L Hematocrit 24.3 % (37.0-47.0) L Mean Corpuscular Volume 88 FL (80-99) Mean Corpuscular Hemoglobin 27.5 PG (27.0-31.0) Mean Corpuscular Hemoglobin Concent 31.3 G/DL (32.0-36.0) L Red Cell Distribution Width 18.4 % (11.6-14.8) H Platelet Count 192 K/UL (150-450) Mean Platelet Volume 6.7 FL (6.5-10.1) Neutrophils (%) (Auto) % (45.0-75.0) Lymphocytes (%) (Auto) % (20.0-45.0) Monocytes (%) (Auto) % (1.0-10.0) Eosinophils (%) (Auto) % (0.0-3.0) Basophils (%) (Auto) % (0.0-2.0) Differential Total Cells Counted 100 Neutrophils % (Manual) 50 % (45-75) Lymphocytes % (Manual) 34 % (20-45) Monocytes % (Manual) 8 % (1-10) Eosinophils % (Manual) 3 % (0-3) Basophils % (Manual) 1 % (0-2) Band Neutrophils 4 % (0-8) Nucleated Red Blood Cells 1 /100 WBC Platelet Estimate Adequate Platelet Morphology Normal Hypochromasia 1+ Anisocytosis 1+ Sodium Level 145 MMOL/L (136-145) Potassium Level 3.6 MMOL/L (3.5-5.1) Chloride Level 111 MMOL/L (98-107) H Carbon Dioxide Level 27 MMOL/L (21-32) Anion Gap 7 mmol/L (5-15) Blood Urea Nitrogen 74 mg/dL (7-18) H Creatinine 2.3 MG/DL (0.55-1.30) H Estimat Glomerular Filtration Rate 24.7 mL/min (>60) Glucose Level 133 MG/DL (74-106) H Calcium Level 8.0 MG/DL (8.5-10.1) L Total Bilirubin 0.5 MG/DL (0.2-1.0) Aspartate Amino Transf (AST/SGOT) 46 U/L (15-37) H Alanine Aminotransferase (ALT/SGPT) 54 U/L (12-78) Alkaline Phosphatase 254 U/L (46-116) H Total Protein 5.4 G/DL (6.4-8.2) L Albumin 0.7 G/DL (3.4-5.0) L Globulin 4.7 g/dL Albumin/Globulin Ratio 0.1 (1.0-2.7) L Assessment/Plan Assessment/Plan Acute on chronic respiratory acidosis Acute respiratory failure - s/p trach. Shock LE edema due to severe pulmonary hypertension and right heart strain COPD exacerb with active bronchospasm Lactic acidosis COVID 19 PNA Acute on chr renal failure Chronic systolic/diastolic CHF Pulmonary fibrosis with chronic hypoxia Paroxysmal AFib with RVR Hx Multifocal atrial arrhythmias Pulmonary HTN - severe Hx NSVTach Severe protein/calorie malnutrition Acute myocardial ischemia Resolving transaminitis CRITICAL & GUARDED Vent support with on-going weaning efforts following trach Hold diltiazem for low BP, but titrate for optimal rate control; cautiously add digoxin Steroids per pulmonary Inhaled bronchodilators Hypotonic IVF until free water deficit corrected Full anticoagulation for cardioembolic prophyl - resumption post procedures. Isolation Anti-viral rx per ID Monitor liver fxSimone Magallanes MD May 30, 2020 23:24
[2020-05-31] VITALS: BP 106/45
--- NOTE | 2020-05-31 00:10 | NUR ---
NURSE NOTES: No acute distress noted at this time. Denies any pain at this time. ST on cardiac tech. Tolerating current vent setting. Reposition done. Oral care given. will continue to monitor.
[2020-05-31 04:00] VITALS: BP 121/56
[2020-05-31] MEDS: dilTIAZem HCl 60mg tab ORAL SCH ×3 (05:17→17:01)
[2020-05-31] MEDS: NovoLOG Insulin Flexpen SUBQ SCH ×6 (05:46→23:00)
[2020-05-31 06:04] LABS: HEMATOCRIT 23.7 % (37.0-47.0); HEMOGLOBIN 7.8 G/DL (12.0-16.0); MEAN CORPUSCULAR VOLUME 84 FL (80-99); PLATELET COUNT 204 K/UL (150-450); RED BLOOD COUNT 2.83 M/UL (4.20-5.40); RED CELL DISTRIBUTION WIDTH 17.3 % (11.6-14.8); WHITE BLOOD COUNT 4.1 K/UL (4.8-10.8)
[2020-05-31 06:22] LABS: ALBUMIN 0.7 G/DL (3.4-5.0); ALBUMIN/GLOBULIN RATIO 0.1 (1.0-2.7); BILIRUBIN,TOTAL 0.5 MG/DL (0.2-1.0); CALCIUM 8.1 MG/DL (8.5-10.1); CREATININE 2.3 MG/DL (0.55-1.30); POTASSIUM 3.5 MMOL/L (3.5-5.1)
--- NOTE | 2020-05-31 07:17 | NUR ---
NURSE HAND-OFF REPORT: Important Events on Shift: T of 99.8 noted, prn given. Patient Status: stable Diet: Vital AF Pending Orders: n Pending Results/Labs:n Pending MD notification:n Latest Vital Signs: Temperature 98.7 , Pulse 109 , B/P 121 /56 , Respiratory Rate 14 , O2 SAT 100 , Trach Collar, O2 Flow Rate 4.0 . Vital Sign Comment: EKG Rhythm: Sinus Tachycardia Rhythm change?: N MD Notified?: Y -Dr Kaveh MCCRACKEN Response: No New Orders Received Latest Lechuga Fall Score: 70 Fall Risk: High Risk Safety Measures: Call light Within Reach, Bed Alarm Zone 1, Side Rails Side Rails x3, Bed position Low and Locked. Fall Precautions: Door Sign Report given to DAMIAN Fair.
[2020-05-31 08:00] VITALS: BP 125/55
[2020-05-31] MEDS: Pantoprazole Inj IVP SCH (08:12)
[2020-05-31] MEDS: Wixela 100/50 Inhaler - 60 dose INH SCH ×2 (08:13→22:00)
[2020-05-31] MEDS: Ipratropium Bromide Inhaler INH SCH ×4 (09:00→23:18)
--- NOTE | 2020-05-31 09:22 | General Progress Note ---
Subjective ROS Limited/Unobtainable: No Allergies: Coded Allergies: CIPROFLOXACIN (Verified Allergy, Unknown, 09/27/17) Objective Last 24 Hour Vital Signs Date Time Temp Pulse Resp B/P (MAP) Pulse Ox O2 Delivery O2 Flow Rate FiO2 05/31/20 08:00 40 05/31/20 08:00 97.8 115 19 125/55 (78) 100 05/31/20 08:00 Mechanical Ventilator Mechanical Ventilator 05/31/20 07:23 120 15 30 05/31/20 05:17 109 121/56 05/31/20 04:00 40 05/31/20 04:00 109 05/31/20 04:00 98.7 110 14 121/56 (77) 100 05/31/20 04:00 Mechanical Ventilator Trach Collar 05/31/20 03:26 106 17 30 05/31/20 00:00 106 05/31/20 00:00 40 05/31/20 00:00 99.5 105 14 106/45 (65) 100 05/31/20 00:00 Mechanical Ventilator Trach Collar 05/30/20 23:13 116 15 100 Mechanical Ventilator 30 116 15 05/30/20 22:17 99.0 05/30/20 21:46 118 107/53 05/30/20 20:00 40 05/30/20 20:00 118 05/30/20 20:00 119 14 111/57 (75) 100 05/30/20 20:00 Mechanical Ventilator Trach Collar 05/30/20 19:05 111 14 100 Mechanical Ventilator 30 111 14 05/30/20 18:00 112 14 104/58 (73) 100 05/30/20 18:00 98.0 110 15 99/55 (70) 100 05/30/20 17:00 111 15 82/65 (71) 100 05/30/20 16:00 40 05/30/20 16:00 Trach Collar Trach Collar 05/30/20 16:00 112 05/30/20 16:00 40 05/30/20 16:00 113 19 112/50 (70) 100 05/30/20 15:10 110 18 30 05/30/20 15:00 108 14 85/42 (56) 100 05/30/20 14:00 115 19 106/47 (66) 100 05/30/20 14:00 115 106/47 05/30/20 13:50 117 20 100 Mechanical Ventilator 30 117 20 05/30/20 13:00 115 16 94/46 (62) 100 05/30/20 12:00 126 05/30/20 12:00 99.0 122 21 101/48 (65) 100 05/30/20 12:00 Trach Collar Trach Collar 05/30/20 12:00 40 05/30/20 11:27 126 21 30 05/30/20 11:00 128 19 93/50 (64) 100 05/30/20 10:21 99.6 05/30/20 10:00 131 20 106/54 (71) 100 05/30/20 10:00 124 15 93/50 (64) 100 Intake and Output 05/30/20 05/31/20 18:59 06:59 Intake Total 1605 ml 1871.25 ml Output Total 910 ml 700 ml Balance 695 ml 1171.25 ml Free Water 375 ml 500 ml IV Total 750 ml 851.25 ml Tube Feeding 480 ml 520 ml Output Urine Total 710 ml 600 ml Stool Total 200 ml 100 ml Laboratory Tests 05/30/20 11:17: POC Whole Blood Glucose 132H 05/30/20 18:05: White Blood Count 4.6L, Red Blood Count 2.77L, Hemoglobin 7.6L, Hematocrit 24.3L , Mean Corpuscular Volume 88, Mean Corpuscular Hemoglobin 27.5, Mean Corpuscular Hemoglobin Concent 31.3L, Red Cell Distribution Width 18.4H, Platelet Count 192, Mean Platelet Volume 6.7, Neutrophils (%) (Auto) , Lymphocytes (%) (Auto) , Monocytes (%) (Auto) , Eosinophils (%) (Auto) , Basophils (%) (Auto) , Differential Total Cells Counted 100, Neutrophils % (Manual) 50, Lymphocytes % (Manual) 34, Monocytes % (Manual) 8, Eosinophils % (Manual) 3, Basophils % (Manual) 1, Band Neutrophils 4, Nucleated Red Blood Cells 1, Platelet Estimate Adequate, Platelet Morphology Normal, Hypochromasia 1+, Anisocytosis 1+, Sodium Level 145, Potassium Level 3.6, Chloride Level 111H, Carbon Dioxide Level 27, Anion Gap 7, Blood Urea Nitrogen 74H, Creatinine 2.3H, Estimat Glomerular Filtration Rate 24.7, Glucose Level 133H, Calcium Level 8.0L, Total Bilirubin 0.5, Aspartate Amino Transf (AST/SGOT) 46H, Alanine Aminotransferase (ALT/SGPT) 54, Alkaline Phosphatase 254H, Total Protein 5.4L, Albumin 0.7L, Globulin 4.7, Albumin/Globulin Ratio 0.1L 05/30/20 22:55: POC Whole Blood Glucose 128H 05/31/20 04:40: White Blood Count 4.1L, Red Blood Count 2.83L, Hemoglobin 7.8L, Hematocrit 23.7L , Mean Corpuscular Volume 84, Mean Corpuscular Hemoglobin 27.5, Mean Corpuscular Hemoglobin Concent 32.9, Red Cell Distribution Width 17.3H, Platelet Count 204, Mean Platelet Volume 6.7, Neutrophils (%) (Auto) , Lymphocytes (%) (Auto) , Monocytes (%) (Auto) , Eosinophils (%) (Auto) , Basophils (%) (Auto) , Neutrophils % (Manual) [Pending], Lymphocytes % (Manual) [Pending], Platelet Estimate [Pending], Platelet Morphology [Pending], Sodium Level 143, Potassium Level 3.5, Chloride Level 109H, Carbon Dioxide Level 28, Anion Gap 6, Blood Urea Nitrogen 70H, Creatinine 2.3H, Estimat Glomerular Filtration Rate 24.7, Glucose Level 130H, Calcium Level 8.1L, Total Bilirubin 0.5, Aspartate Amino Transf (AST/SGOT) 48H, Alanine Aminotransferase (ALT/SGPT) 53, Alkaline Phosphatase 253H, Total Protein 5.6L, Albumin 0.7L, Globulin 4.9, Albumin/Globulin Ratio 0.1L 05/31/20 05:23: POC Whole Blood Glucose 136H Height (Feet): 5 Height (Inches): 3.00 Weight (Pounds): 174 General Appearance: no apparent distress EENT: normal ENT inspection Neck: supple Cardiovascular: normal rate Respiratory/Chest: decreased breath sounds Abdomen: normal bowel sounds, non tender, soft Extremities: non-tender Assessment/Plan Status: stable Assessment/Plan: Assessment - Transaminitis, likely due to COVID-19 --Improving - Gallstones - Resp failure - s/p trach - Dysphagia - NGT - CHF - Pulm HTN - Arrhythmia - Leukocytosis - Renal failure Recommendations - monitor LFT - Continue TF - Abx - ICU care - trach noted - will consider repeat abd ultrasound Vosoghi,Greyson MD May 31, 2020 09:22
--- NOTE | 2020-05-31 11:20 | General Progress Note ---
Subjective ROS Limited/Unobtainable: Yes Constitutional: Reports: malaise, weakness HEENT: Reports: no symptoms Cardiovascular: Reports: edema Respiratory: Reports: shortness of breath, sputum Gastrointestinal/Abdominal: Reports: difficulty swallowing Genitourinary: Reports: no symptoms Neurologic/Psychiatric: Reports: pre-existing deficit Endocrine: Reports: no symptoms Hematologic/Lymphatic: Reports: anemia Allergies: Coded Allergies: CIPROFLOXACIN (Verified Allergy, Unknown, 09/27/17) All Systems: reviewed and negative except above Subjective no events. stable on the vent. tolerating feeds. no vomiting. no distress. opens eyes. Objective Last 24 Hour Vital Signs Date Time Temp Pulse Resp B/P (MAP) Pulse Ox O2 Delivery O2 Flow Rate FiO2 05/31/20 08:00 113 05/31/20 08:00 40 05/31/20 08:00 97.8 115 19 125/55 (78) 100 05/31/20 08:00 Mechanical Ventilator Mechanical Ventilator 05/31/20 07:23 120 15 30 05/31/20 05:17 109 121/56 05/31/20 04:00 40 05/31/20 04:00 109 05/31/20 04:00 98.7 110 14 121/56 (77) 100 05/31/20 04:00 Mechanical Ventilator Trach Collar 05/31/20 03:26 106 17 30 05/31/20 00:00 106 05/31/20 00:00 40 05/31/20 00:00 99.5 105 14 106/45 (65) 100 05/31/20 00:00 Mechanical Ventilator Trach Collar 05/30/20 23:13 116 15 100 Mechanical Ventilator 30 116 15 05/30/20 22:17 99.0 05/30/20 21:46 118 107/53 05/30/20 20:00 40 05/30/20 20:00 118 05/30/20 20:00 119 14 111/57 (75) 100 05/30/20 20:00 Mechanical Ventilator Trach Collar 05/30/20 19:05 111 14 100 Mechanical Ventilator 30 111 14 05/30/20 18:00 112 14 104/58 (73) 100 05/30/20 18:00 98.0 110 15 99/55 (70) 100 05/30/20 17:00 111 15 82/65 (71) 100 10/3/20 16:00 40 05/30/20 16:00 Trach Collar Trach Collar 05/30/20 16:00 112 05/30/20 16:00 40 05/30/20 16:00 113 19 112/50 (70) 100 05/30/20 15:10 110 18 30 05/30/20 15:00 108 14 85/42 (56) 100 05/30/20 14:00 115 19 106/47 (66) 100 05/30/20 14:00 115 106/47 05/30/20 13:50 117 20 100 Mechanical Ventilator 30 117 20 05/30/20 13:00 115 16 94/46 (62) 100 05/30/20 12:00 126 05/30/20 12:00 99.0 122 21 101/48 (65) 100 05/30/20 12:00 Trach Collar Trach Collar 05/30/20 12:00 40 05/30/20 11:27 126 21 30 Intake and Output 05/30/20 05/31/20 19:00 07:00 Intake Total 1631.25 ml 1920 ml Output Total 860 ml 700 ml Balance 771.25 ml 1220 ml Free Water 375 ml 500 ml IV Total 776.25 ml 900 ml Tube Feeding 480 ml 520 ml Output Urine Total 660 ml 600 ml Stool Total 200 ml 100 ml Laboratory Tests 05/30/20 18:05: White Blood Count 4.6L, Red Blood Count 2.77L, Hemoglobin 7.6L, Hematocrit 24.3L , Mean Corpuscular Volume 88, Mean Corpuscular Hemoglobin 27.5, Mean Corpuscular Hemoglobin Concent 31.3L, Red Cell Distribution Width 18.4H, Platelet Count 192, Mean Platelet Volume 6.7, Neutrophils (%) (Auto) , Lymphocytes (%) (Auto) , Monocytes (%) (Auto) , Eosinophils (%) (Auto) , Basophils (%) (Auto) , Differential Total Cells Counted 100, Neutrophils % (Manual) 50, Lymphocytes % (Manual) 34, Monocytes % (Manual) 8, Eosinophils % (Manual) 3, Basophils % (Manual) 1, Band Neutrophils 4, Nucleated Red Blood Cells 1, Platelet Estimate Adequate, Platelet Morphology Normal, Hypochromasia 1+, Anisocytosis 1+, Sodium Level 145, Potassium Level 3.6, Chloride Level 111H, Carbon Dioxide Level 27, Anion Gap 7, Blood Urea Nitrogen 74H, Creatinine 2.3H, Estimat Glomerular Filtration Rate 24.7, Glucose Level 133H, Calcium Level 8.0L, Total Bilirubin 0.5, Aspartate Amino Transf (AST/SGOT) 46H, Alanine Aminotransferase (ALT/SGPT) 54, Alkaline Phosphatase 254H, Total Protein 5.4L, Albumin 0.7L, Globulin 4.7, Albumin/Globulin Ratio 0.1L 05/30/20 22:55: POC Whole Blood Glucose 128H 05/31/20 04:40: White Blood Count 4.1L, Red Blood Count 2.83L, Hemoglobin 7.8L, Hematocrit 23.7L , Mean Corpuscular Volume 84, Mean Corpuscular Hemoglobin 27.5, Mean Corpuscular Hemoglobin Concent 32.9, Red Cell Distribution Width 17.3H, Platelet Count 204, Mean Platelet Volume 6.7, Neutrophils (%) (Auto) , Lymphocytes (%) (Auto) , Monocytes (%) (Auto) , Eosinophils (%) (Auto) , Basophils (%) (Auto) , Neutrophils % (Manual) [Pending], Lymphocytes % (Manual) [Pending], Platelet Estimate [Pending], Platelet Morphology [Pending], Sodium Level 143, Potassium Level 3.5, Chloride Level 109H, Carbon Dioxide Level 28, Anion Gap 6, Blood Urea Nitrogen 70H, Creatinine 2.3H, Estimat Glomerular Filtration Rate 24.7, Glucose Level 130H, Calcium Level 8.1L, Total Bilirubin 0.5, Aspartate Amino Transf (AST/SGOT) 48H, Alanine Aminotransferase (ALT/SGPT) 53, Alkaline Phosphatase 253H, Total Protein 5.6L, Albumin 0.7L, Globulin 4.9, Albumin/Globulin Ratio 0.1L 05/31/20 05:23: POC Whole Blood Glucose 136H 05/31/20 11:11: POC Whole Blood Glucose 129H Height (Feet): 5 Height (Inches): 3.00 Weight (Pounds): 174 Objective General Appearance: WD/WN, no apparent distress, alert. 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 grossly normal, alert, oriented x 3, responsive Skin: normal pigmentation Lymphatic: normal anterior cervical (L), normal anterior cervical (R) Assessment/Plan Problem List: (1) Pulmonary fibrosis ICD Codes: J84.10 - Pulmonary fibrosis, unspecified SNOMED: 13394497 (2) History of asthma ICD Codes: Z87.09 - Personal history of other diseases of the respiratory system SNOMED: 413266027 (3) Asthma ICD Codes: J45.909 - Unspecified asthma, uncomplicated SNOMED: 799745665 (4) NSTEMI (non-ST elevated myocardial infarction) ICD Codes: I21.4 - Non-ST elevation (NSTEMI) myocardial infarction SNOMED: 815793639 (5) Elevated troponin ICD Codes: R79.89 - Other specified abnormal findings of blood chemistry SNOMED: 175770586, 596554006, 534313196 (6) COPD (chronic obstructive pulmonary disease) ICD Codes: J44.9 - Chronic obstructive pulmonary disease, unspecified SNOMED: 02418331 (7) Atrial fibrillation with RVR ICD Codes: I48.91 - Unspecified atrial fibrillation SNOMED: 613626523001224 (8) Community acquired pneumonia ICD Codes: J18.9 - Pneumonia, unspecified organism SNOMED: 187394042 Status: stable Assessment/Plan: cont iv abx- matthew and inh tobra water flushes via ngt monitor renal fxn/lytes ivf ngt feeds gt next week tylenol for fever wean vent as able BP rx keep dry cardizem for rate control dvt/stress ulcer prophylaxis skin care imodium trach care eliquis and aspirin on hold for procedures turn q2 critical and guarded Bradford Linn MD May 31, 2020 11:20
[2020-05-31 12:00] VITALS: BP 113/54
--- NOTE | 2020-05-31 14:36 | Infectious Diseases Prog Note ---
Assessment/Plan Assessment/Plan A 1. COVID 19 pneumonia Test positive: 05/03 -05/09 2. renal failure 3. increased LFT 4. COPD 5. CHF, Diastolic & systolic 6. asthma 7. Cholelithiasis r/o cholecystitis 8. Hypoxic hypercapnic respiratory failure 9. Pseudomonas pneumonia 10. Sepsis 11. Funguria P 1. Continue Levaquin 2. Will f/u cultures Subjective ROS Limited/Unobtainable: Yes Constitutional: Reports: other - dosen,t feel good Respiratory: Reports: other - extubated Allergies: Coded Allergies: CIPROFLOXACIN (Verified Allergy, Unknown, 09/27/17) Objective Last 24 Hour Vital Signs Date Time Temp Pulse Resp B/P (MAP) Pulse Ox O2 Delivery O2 Flow Rate FiO2 05/31/20 13:17 123 113/54 05/31/20 12:00 123 05/31/20 12:00 Mechanical Ventilator Mechanical Ventilator 05/31/20 12:00 40 05/31/20 12:00 97.5 121 20 113/54 (73) 100 05/31/20 11:30 130 19 30 05/31/20 08:00 113 05/31/20 08:00 40 05/31/20 08:00 97.8 115 19 125/55 (78) 100 05/31/20 08:00 Mechanical Ventilator Mechanical Ventilator 05/31/20 07:23 120 15 30 05/31/20 05:17 109 121/56 05/31/20 04:00 40 05/31/20 04:00 109 05/31/20 04:00 98.7 110 14 121/56 (77) 100 05/31/20 04:00 Mechanical Ventilator Trach Collar 05/31/20 03:26 106 17 30 05/31/20 00:00 106 05/31/20 00:00 40 05/31/20 00:00 99.5 105 14 106/45 (65) 100 05/31/20 00:00 Mechanical Ventilator Trach Collar 05/30/20 23:13 116 15 100 Mechanical Ventilator 30 116 15 05/30/20 22:17 99.0 05/30/20 21:46 118 107/53 05/30/20 20:00 40 05/30/20 20:00 118 05/30/20 20:00 119 14 111/57 (75) 100 05/30/20 20:00 Mechanical Ventilator Trach Collar 05/30/20 19:05 111 14 100 Mechanical Ventilator 30 111 14 05/30/20 18:00 112 14 104/58 (73) 100 05/30/20 18:00 98.0 110 15 99/55 (70) 100 05/30/20 17:00 111 15 82/65 (71) 100 05/30/20 16:00 40 05/30/20 16:00 Trach Collar Trach Collar 05/30/20 16:00 112 05/30/20 16:00 40 05/30/20 16:00 113 19 112/50 (70) 100 05/30/20 15:10 110 18 30 05/30/20 15:00 108 14 85/42 (56) 100 Height (Feet): 5 Height (Inches): 3.00 Weight (Pounds): 174 HEENT: mucous membranes moist Respiratory/Chest: decreased breath sounds Cardiovascular: tachycardia Abdomen: soft, non tender, other - NG tube feeding Extremities: other - generalized edema Neurologic/Psychiatric: alert, responsive, other - weak Laboratory Tests Test 05/30/20 18:05 05/30/20 22:55 05/31/20 04:40 05/31/20 05:23 White Blood Count 4.6 K/UL (4.8-10.8) L 4.1 K/UL (4.8-10.8) L Red Blood Count 2.77 M/UL (4.20-5.40) L 2.83 M/UL (4.20-5.40) L Hemoglobin 7.6 G/DL (12.0-16.0) L 7.8 G/DL (12.0-16.0) L Hematocrit 24.3 % (37.0-47.0) L 23.7 % (37.0-47.0) L Mean Corpuscular Volume 88 FL (80-99) 84 FL (80-99) Mean Corpuscular Hemoglobin 27.5 PG (27.0-31.0) 27.5 PG (27.0-31.0) Mean Corpuscular Hemoglobin Concent 31.3 G/DL (32.0-36.0) L 32.9 G/DL (32.0-36.0) Red Cell Distribution Width 18.4 % (11.6-14.8) H 17.3 % (11.6-14.8) H Platelet Count 192 K/UL (150-450) 204 K/UL (150-450) Mean Platelet Volume 6.7 FL (6.5-10.1) 6.7 FL (6.5-10.1) Neutrophils (%) (Auto) % (45.0-75.0) % (45.0-75.0) Lymphocytes (%) (Auto) % (20.0-45.0) % (20.0-45.0) Monocytes (%) (Auto) % (1.0-10.0) % (1.0-10.0) Eosinophils (%) (Auto) % (0.0-3.0) % (0.0-3.0) Basophils (%) (Auto) % (0.0-2.0) % (0.0-2.0) Differential Total Cells Counted 100 Neutrophils % (Manual) 50 % (45-75) Pending Lymphocytes % (Manual) 34 % (20-45) Pending Monocytes % (Manual) 8 % (1-10) Eosinophils % (Manual) 3 % (0-3) Basophils % (Manual) 1 % (0-2) Band Neutrophils 4 % (0-8) Nucleated Red Blood Cells 1 /100 WBC Platelet Estimate Adequate Pending Platelet Morphology Normal Pending Hypochromasia 1+ Anisocytosis 1+ Sodium Level 145 MMOL/L (136-145) 143 MMOL/L (136-145) Potassium Level 3.6 MMOL/L (3.5-5.1) 3.5 MMOL/L (3.5-5.1) Chloride Level 111 MMOL/L (98-107) H 109 MMOL/L (98-107) H Carbon Dioxide Level 27 MMOL/L (21-32) 28 MMOL/L (21-32) Anion Gap 7 mmol/L (5-15) 6 mmol/L (5-15) Blood Urea Nitrogen 74 mg/dL (7-18) H 70 mg/dL (7-18) H Creatinine 2.3 MG/DL (0.55-1.30) H 2.3 MG/DL (0.55-1.30) H Estimat Glomerular Filtration Rate 24.7 mL/min (>60) 24.7 mL/min (>60) Glucose Level 133 MG/DL (74-106) H 130 MG/DL (74-106) H Calcium Level 8.0 MG/DL (8.5-10.1) L 8.1 MG/DL (8.5-10.1) L Total Bilirubin 0.5 MG/DL (0.2-1.0) 0.5 MG/DL (0.2-1.0) Aspartate Amino Transf (AST/SGOT) 46 U/L (15-37) H 48 U/L (15-37) H Alanine Aminotransferase (ALT/SGPT) 54 U/L (12-78) 53 U/L (12-78) Alkaline Phosphatase 254 U/L (46-116) H 253 U/L (46-116) H Total Protein 5.4 G/DL (6.4-8.2) L 5.6 G/DL (6.4-8.2) L Albumin 0.7 G/DL (3.4-5.0) L 0.7 G/DL (3.4-5.0) L Globulin 4.7 g/dL 4.9 g/dL Albumin/Globulin Ratio 0.1 (1.0-2.7) L 0.1 (1.0-2.7) L POC Whole Blood Glucose 128 MG/DL (74-106) H 136 MG/DL (74-106) H Test 05/31/20 11:11 POC Whole Blood Glucose 129 MG/DL (74-106) H Current Medications Medications (Trade) Dose Ordered Sig/Ghislaine Route PRN Reason Start Time Stop Time Status Last Admin Dose Admin Acetaminophen (Tylenol) 500 mg Q4H PRN ORAL Mild Pain (Pain Scale 1-3) 05/11/20 20:00 06/02/20 19:59 05/27/20 09:50 Acetaminophen (Tylenol) 650 mg Q4H PRN NG Temp >100.5 05/25/20 16:15 06/24/20 16:14 05/30/20 21:47 Albuterol Sulfate (Proventil MDI) 2 puff Q4H PRN INH Shortness of Breath 05/11/20 20:00 08/01/20 11:59 05/13/20 10:30 Dextrose 1,000 ml @ 75 mls/hr [id number] IV 05/29/20 07:30 06/28/20 07:29 05/31/20 11:09 Dextrose (Dextrose 50%) 25 ml Q30M PRN IV Hypoglycemia 05/22/20 18:30 08/20/20 18:29 Dextrose (Dextrose 50%) 50 ml Q30M PRN IV Hypoglycemia 05/22/20 18:30 08/20/20 18:29 Diltiazem HCl (Cardizem Tab) 60 mg EVERY 8 HOURS ORAL 05/16/20 06:00 06/15/20 05:59 05/31/20 13:17 Insulin Aspart (NovoLOG) Q6HR SUBQ 05/23/20 00:00 08/20/20 20:59 05/30/20 06:22 Ipratropium Brohard (Atrovent Inh) 1 puffs QID INH 05/27/20 10:00 06/26/20 09:59 05/30/20 21:00 Levofloxacin (Levaquin) 250 mg Q48H NG 05/31/20 09:00 06/07/20 08:59 05/31/20 08:12 Loperamide HCl (Imodium) 2 mg Q6H PRN NG Diarrhea 05/26/20 17:45 06/25/20 17:44 05/27/20 10:52 Pantoprazole (Protonix) 40 mg DAILY IVP 05/28/20 09:00 06/27/20 08:59 05/31/20 08:12 Salmeterol Xinafoate/ Fluticasone (Advair 100/50 Diskus) 1 puffs BIDRT INH 05/11/20 22:00 08/09/20 21:59 05/16/20 09:02 Freddy Woodson MD May 31, 2020 14:36
[2020-05-31 16:00] VITALS: BP 118/57
--- NOTE | 2020-05-31 16:02 | Surgery Progress Note ---
Surgery Progress Note Subjective Procedure Performed trach Symptoms: improved, tolerating diet, passing flatus Objective Last 24 Hour Vital Signs Date Time Temp Pulse Resp B/P (MAP) Pulse Ox O2 Delivery O2 Flow Rate FiO2 05/31/20 16:00 Mechanical Ventilator Mechanical Ventilator 05/31/20 13:17 123 113/54 05/31/20 12:00 123 05/31/20 12:00 Mechanical Ventilator Mechanical Ventilator 05/31/20 12:00 40 05/31/20 12:00 97.5 121 20 113/54 (73) 100 05/31/20 11:30 130 19 30 05/31/20 08:00 113 05/31/20 08:00 40 05/31/20 08:00 97.8 115 19 125/55 (78) 100 05/31/20 08:00 Mechanical Ventilator Mechanical Ventilator 05/31/20 07:23 120 15 30 05/31/20 05:17 109 121/56 05/31/20 04:00 40 05/31/20 04:00 109 05/31/20 04:00 98.7 110 14 121/56 (77) 100 05/31/20 04:00 Mechanical Ventilator Trach Collar 05/31/20 03:26 106 17 30 05/31/20 00:00 106 05/31/20 00:00 40 05/31/20 00:00 99.5 105 14 106/45 (65) 100 05/31/20 00:00 Mechanical Ventilator Trach Collar 05/30/20 23:13 116 15 100 Mechanical Ventilator 30 116 15 05/30/20 22:17 99.0 05/30/20 21:46 118 107/53 05/30/20 20:00 40 05/30/20 20:00 118 05/30/20 20:00 119 14 111/57 (75) 100 05/30/20 20:00 Mechanical Ventilator Trach Collar 05/30/20 19:05 111 14 100 Mechanical Ventilator 30 111 14 05/30/20 18:00 112 14 104/58 (73) 100 05/30/20 18:00 98.0 110 15 99/55 (70) 100 05/30/20 17:00 111 15 82/65 (71) 100 I&O Intake and Output 05/30/20 05/31/20 19:00 07:00 Intake Total 1631.25 ml 1920 ml Output Total 860 ml 700 ml Balance 771.25 ml 1220 ml Free Water 375 ml 500 ml IV Total 776.25 ml 900 ml Tube Feeding 480 ml 520 ml Output Urine Total 660 ml 600 ml Stool Total 200 ml 100 ml Dressing: saturated Cardiovascular: RSR Respiratory: decreased breath sounds Abdomen: soft, non-tender, present bowel sounds Extremities: no tenderness, no cyanosis Laboratory Tests Test 05/30/20 18:05 05/30/20 22:55 05/31/20 04:40 05/31/20 05:23 White Blood Count 4.6 K/UL (4.8-10.8) L 4.1 K/UL (4.8-10.8) L Red Blood Count 2.77 M/UL (4.20-5.40) L 2.83 M/UL (4.20-5.40) L Hemoglobin 7.6 G/DL (12.0-16.0) L 7.8 G/DL (12.0-16.0) L Hematocrit 24.3 % (37.0-47.0) L 23.7 % (37.0-47.0) L Mean Corpuscular Volume 88 FL (80-99) 84 FL (80-99) Mean Corpuscular Hemoglobin 27.5 PG (27.0-31.0) 27.5 PG (27.0-31.0) Mean Corpuscular Hemoglobin Concent 31.3 G/DL (32.0-36.0) L 32.9 G/DL (32.0-36.0) Red Cell Distribution Width 18.4 % (11.6-14.8) H 17.3 % (11.6-14.8) H Platelet Count 192 K/UL (150-450) 204 K/UL (150-450) Mean Platelet Volume 6.7 FL (6.5-10.1) 6.7 FL (6.5-10.1) Neutrophils (%) (Auto) % (45.0-75.0) % (45.0-75.0) Lymphocytes (%) (Auto) % (20.0-45.0) % (20.0-45.0) Monocytes (%) (Auto) % (1.0-10.0) % (1.0-10.0) Eosinophils (%) (Auto) % (0.0-3.0) % (0.0-3.0) Basophils (%) (Auto) % (0.0-2.0) % (0.0-2.0) Differential Total Cells Counted 100 100 Neutrophils % (Manual) 50 % (45-75) 63 % (45-75) Lymphocytes % (Manual) 34 % (20-45) 20 % (20-45) Monocytes % (Manual) 8 % (1-10) 11 % (1-10) H Eosinophils % (Manual) 3 % (0-3) 5 % (0-3) H Basophils % (Manual) 1 % (0-2) 1 % (0-2) Band Neutrophils 4 % (0-8) 0 % (0-8) Nucleated Red Blood Cells 1 /100 WBC Platelet Estimate Adequate Adequate Platelet Morphology Normal Normal Hypochromasia 1+ 3+ Anisocytosis 1+ 1+ Sodium Level 145 MMOL/L (136-145) 143 MMOL/L (136-145) Potassium Level 3.6 MMOL/L (3.5-5.1) 3.5 MMOL/L (3.5-5.1) Chloride Level 111 MMOL/L (98-107) H 109 MMOL/L (98-107) H Carbon Dioxide Level 27 MMOL/L (21-32) 28 MMOL/L (21-32) Anion Gap 7 mmol/L (5-15) 6 mmol/L (5-15) Blood Urea Nitrogen 74 mg/dL (7-18) H 70 mg/dL (7-18) H Creatinine 2.3 MG/DL (0.55-1.30) H 2.3 MG/DL (0.55-1.30) H Estimat Glomerular Filtration Rate 24.7 mL/min (>60) 24.7 mL/min (>60) Glucose Level 133 MG/DL (74-106) H 130 MG/DL (74-106) H Calcium Level 8.0 MG/DL (8.5-10.1) L 8.1 MG/DL (8.5-10.1) L Total Bilirubin 0.5 MG/DL (0.2-1.0) 0.5 MG/DL (0.2-1.0) Aspartate Amino Transf (AST/SGOT) 46 U/L (15-37) H 48 U/L (15-37) H Alanine Aminotransferase (ALT/SGPT) 54 U/L (12-78) 53 U/L (12-78) Alkaline Phosphatase 254 U/L (46-116) H 253 U/L (46-116) H Total Protein 5.4 G/DL (6.4-8.2) L 5.6 G/DL (6.4-8.2) L Albumin 0.7 G/DL (3.4-5.0) L 0.7 G/DL (3.4-5.0) L Globulin 4.7 g/dL 4.9 g/dL Albumin/Globulin Ratio 0.1 (1.0-2.7) L 0.1 (1.0-2.7) L POC Whole Blood Glucose 128 MG/DL (74-106) H 136 MG/DL (74-106) H Test 05/31/20 11:11 POC Whole Blood Glucose 129 MG/DL (74-106) H Plan Problems: (1) Elevated troponin (2) Atrial fibrillation with RVR (3) COVID-19 Assessment & Plan: ++ as per pulm and ID trach DAILY ESTIMATED NEEDS: Needs based on Critical Care, ARF/ 56kg abw 22-28 kcals/kg [id number] total kcals 0.8-1.5 (increase w/ renal improvement) g protein/kg 45-84 g total protein 25-30 mL/kg [id number] total fluid mLs NUTRITION DIAGNOSIS: * Altered nutrition related lab values r/t clinical status as evidenced by elev BUN(82), creat(3.8) trending up, critical ABG (low pH, elev CO2)-> now improved. * Swallowing difficulty R/T respiratory status as evidenced by s/p oral intubation, on OGT feeds. 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: TALK SHOW HOST eval post extubation ENTERAL NUTRITION RECOMMENDATIONS: Nepro @ 35ml/hr x 24 hrs to provide 840ml, 1512kcal, 68g prot, 610ml free water * W/ worsening renal fxn, rec to continue Nepro * As tolerated, increase goal rate to 35ml/hr x 24 hrs to meet 100% est kcal/prot needs ADDITIONAL RECOMMENDATIONS: 1) Calibrated bedscale wt 2) Monitor renal fxn and lytes, need to continue Nepro Creat trending up 3) Rec niss w/ solumedrol (4) Community acquired pneumonia (5) COPD (chronic obstructive pulmonary disease) (6) Pulmonary fibrosis (7) Asthma (8) History of asthma (9) NSTEMI (non-ST elevated myocardial infarction) (10) Moderate to severe pulmonary hypertension (11) Asthma exacerbation (12) Abnormal LFTs Assessment & Plan: afebrile, HD stable labs noted lft's elevated US reviewed exam benign gb likely reactive from underlying pathology unlikely cholecystitis clinically fluid overload trend labs will monitor exam clinically covid + prognosis guarded cxr reviewed on abx worsening plan repeat US - noted cannot get hida given covid labs noted worsening leukocytosis Gallbladder demonstrates wall thickening and wall edema, gallbladder wall measuring up to 6 mm thick. There are gallstones. Sonographic Escoto's sign is negative. Common bile duct measures 3 mm in diameter. No intrahepatic biliary ductal dilatation. Liver demonstrates normal echogenicity, no focal abn ormality. Portal vein and hepatic veins are patent. Pancreas is unremarkable. Spleen is unremarkable. Left kidney measures 9.2 cm in length. Right kidney measures 9.9 cm length. Both kidneys demonstrate normal echogenicity. There is no hydroneph rosis. Small cyst is seen in the right kidney. . Abdominal aorta was not imaged . There is trace ascites. There is a small right pleural effusion incidentally noted Impression: Small right pleural effusion. Trace ascites Cholelithiasis. Gallbladder wall thickening may be related to hemodynamic factors causing the pleural fluid and ascites, but could also indicate acute bruce cystitis. Consider nuclear medicine hepatobiliary scan if there is high clinical suspicion. Negative for dilated bile ducts Small right renal cyst incidentally noted (13) Acute respiratory failure with hypoxia Assessment & Plan: s/p trach discussed with family comfortable weaning Quentin Sanchez May 31, 2020 16:02
--- NOTE | 2020-05-31 16:37 | Pulmonology Progress Note ---
Subjective ROS Limited/Unobtainable: Yes Constitutional: Reports: other - dosen,t feel good Musculoskeletal: Denies: pain Allergies: Coded Allergies: CIPROFLOXACIN (Verified Allergy, Unknown, 09/27/17) All Systems: reviewed and negative except above Objective Last 24 Hour Vital Signs Date Time Temp Pulse Resp B/P (MAP) Pulse Ox O2 Delivery O2 Flow Rate FiO2 05/31/20 16:00 Mechanical Ventilator Mechanical Ventilator 05/31/20 16:00 40 05/31/20 16:00 97.9 136 20 118/57 (77) 100 05/31/20 13:17 123 113/54 05/31/20 12:00 123 05/31/20 12:00 Mechanical Ventilator Mechanical Ventilator 05/31/20 12:00 40 05/31/20 12:00 97.5 121 20 113/54 (73) 100 05/31/20 11:30 130 19 30 05/31/20 08:00 113 05/31/20 08:00 40 05/31/20 08:00 97.8 115 19 125/55 (78) 100 05/31/20 08:00 Mechanical Ventilator Mechanical Ventilator 05/31/20 07:23 120 15 30 05/31/20 05:17 109 121/56 05/31/20 04:00 40 05/31/20 04:00 109 05/31/20 04:00 98.7 110 14 121/56 (77) 100 05/31/20 04:00 Mechanical Ventilator Trach Collar 05/31/20 03:26 106 17 30 05/31/20 00:00 106 05/31/20 00:00 40 05/31/20 00:00 99.5 105 14 106/45 (65) 100 05/31/20 00:00 Mechanical Ventilator Trach Collar 05/30/20 23:13 116 15 100 Mechanical Ventilator 30 116 15 05/30/20 22:17 99.0 05/30/20 21:46 118 107/53 05/30/20 20:00 40 05/30/20 20:00 118 05/30/20 20:00 119 14 111/57 (75) 100 05/30/20 20:00 Mechanical Ventilator Trach Collar 05/30/20 19:05 111 14 100 Mechanical Ventilator 30 111 14 05/30/20 18:00 112 14 104/58 (73) 100 05/30/20 18:00 98.0 110 15 99/55 (70) 100 05/30/20 17:00 111 15 82/65 (71) 100 Intake and Output 05/30/20 05/31/20 19:00 07:00 Intake Total 1631.25 ml 1920 ml Output Total 860 ml 700 ml Balance 771.25 ml 1220 ml Free Water 375 ml 500 ml IV Total 776.25 ml 900 ml Tube Feeding 480 ml 520 ml Output Urine Total 660 ml 600 ml Stool Total 200 ml 100 ml Laboratory Tests 05/30/20 18:05: White Blood Count 4.6L, Red Blood Count 2.77L, Hemoglobin 7.6L, Hematocrit 24.3L , Mean Corpuscular Volume 88, Mean Corpuscular Hemoglobin 27.5, Mean Corpuscular Hemoglobin Concent 31.3L, Red Cell Distribution Width 18.4H, Platelet Count 192, Mean Platelet Volume 6.7, Neutrophils (%) (Auto) , Lymphocytes (%) (Auto) , Monocytes (%) (Auto) , Eosinophils (%) (Auto) , Basophils (%) (Auto) , Differential Total Cells Counted 100, Neutrophils % (Manual) 50, Lymphocytes % (Manual) 34, Monocytes % (Manual) 8, Eosinophils % (Manual) 3, Basophils % (Manual) 1, Band Neutrophils 4, Nucleated Red Blood Cells 1, Platelet Estimate Adequate, Platelet Morphology Normal, Hypochromasia 1+, Anisocytosis 1+, Sodium Level 145, Potassium Level 3.6, Chloride Level 111H, Carbon Dioxide Level 27, Anion Gap 7, Blood Urea Nitrogen 74H, Creatinine 2.3H, Estimat Glomerular Filtration Rate 24.7, Glucose Level 133H, Calcium Level 8.0L, Total Bilirubin 0.5, Aspartate Amino Transf (AST/SGOT) 46H, Alanine Aminotransferase (ALT/SGPT) 54, Alkaline Phosphatase 254H, Total Protein 5.4L, Albumin 0.7L, Globulin 4.7, Albumin/Globulin Ratio 0.1L 05/30/20 22:55: POC Whole Blood Glucose 128H 05/31/20 04:40: White Blood Count 4.1L, Red Blood Count 2.83L, Hemoglobin 7.8L, Hematocrit 23.7L , Mean Corpuscular Volume 84, Mean Corpuscular Hemoglobin 27.5, Mean Corpuscular Hemoglobin Concent 32.9, Red Cell Distribution Width 17.3H, Platelet Count 204, Mean Platelet Volume 6.7, Neutrophils (%) (Auto) , Lymphocytes (%) (Auto) , Monocytes (%) (Auto) , Eosinophils (%) (Auto) , Basophils (%) (Auto) , Differential Total Cells Counted 100, Neutrophils % (Manual) 63, Lymphocytes % ( Manual) 20, Monocytes % (Manual) 11H, Eosinophils % (Manual) 5H, Basophils % (Manual) 1, Band Neutrophils 0, Platelet Estimate Adequate, Platelet Morphology Normal, Hypochromasia 3+, Anisocytosis 1+, Sodium Level 143, Potassium Level 3.5, Chloride Level 109H, Carbon Dioxide Level 28, Anion Gap 6, Blood Urea N itrogen 70H, Creatinine 2.3H, Estimat Glomerular Filtration Rate 24.7, Glucose Level 130H, Calcium Level 8.1L, Total Bilirubin 0.5, Aspartate Amino Transf (AST/SGOT) 48H, Alanine Aminotransferase (ALT/SGPT) 53, Alkaline Phosphatase 253H, Total Protein 5.6L, Albumin 0.7L, Globulin 4.9, Albumin/Globulin Ratio 0.1L 05/31/20 05:23: POC Whole Blood Glucose 136H 05/31/20 11:11: POC Whole Blood Glucose 129H Current Medications Medications (Trade) Dose Ordered Sig/Ghislaine Route PRN Reason Start Time Stop Time Status Last Admin Dose Admin Acetaminophen (Tylenol) 500 mg Q4H PRN ORAL Mild Pain (Pain Scale 1-3) 05/11/20 20:00 06/02/20 19:59 05/27/20 09:50 Acetaminophen (Tylenol) 650 mg Q4H PRN NG Temp >100.5 05/25/20 16:15 06/24/20 16:14 05/30/20 21:47 Albuterol Sulfate (Proventil MDI) 2 puff Q4H PRN INH Shortness of Breath 05/11/20 20:00 08/01/20 11:59 05/13/20 10:30 Dextrose 1,000 ml @ 75 mls/hr [id number] IV 05/29/20 07:30 06/28/20 07:29 05/31/20 11:09 Dextrose (Dextrose 50%) 25 ml Q30M PRN IV Hypoglycemia 05/22/20 18:30 08/20/20 18:29 Dextrose (Dextrose 50%) 50 ml Q30M PRN IV Hypoglycemia 05/22/20 18:30 08/20/20 18:29 Diltiazem HCl (Cardizem Tab) 60 mg EVERY 8 HOURS ORAL 05/16/20 06:00 06/15/20 05:59 05/31/20 13:17 Insulin Aspart (NovoLOG) Q6HR SUBQ 05/23/20 00:00 08/20/20 20:59 05/30/20 06:22 Ipratropium [place] (Atrovent Inh) 1 puffs QID INH 05/27/20 10:00 06/26/20 09:59 05/30/20 21:00 Levofloxacin (Levaquin) 250 mg Q48H NG 05/31/20 09:00 06/07/20 08:59 05/31/20 08:12 Loperamide HCl (Imodium) 2 mg Q6H PRN NG Diarrhea 05/26/20 17:45 06/25/20 17:44 05/27/20 10:52 Pantoprazole (Protonix) 40 mg DAILY IVP 05/28/20 09:00 06/27/20 08:59 05/31/20 08:12 Salmeterol Xinafoate/ Fluticasone (Advair 100/50 Diskus) 1 puffs BIDRT INH 05/11/20 22:00 08/09/20 21:59 05/16/20 09:02 Assessment/Plan Assessment/Plan Pulmonary CCM Progress Note HPI Patient is a 80-year-old female history of Chronic Obstructive Pulmonary Disease/Asthma, Congestive Heart Failure, on maintenance Eliquis, admitted with Covid 19 Pneumonia, respiratory failure on mechanical ventilator, AB/Covid Mx per ID. Physical Exam Vital Signs Noted PE: Deferred Covid 19 Assessment/Plan Impression: COVID-19 Chronic obstructive pulmonary disease/Asthma Community acquired pneumonia Atrial fibrillation with RVR Elevated troponin Congestive heart Failure sinus tachycardia Hypoxemia Hypokalemia transaminitis with gallstones consider cholecystitis acute on chronic renal failure acute respiratory failure Plan ID noted and discussed/ cultures reviewed Vent support/try to wean as able daily wean oxygen - currently stable feeds per dietary IV therapy noted Bronchodilator therapy Eliquis and monitor HH Monitor labs/ renal follow up Covid 19 Isolation- repeat swab+ nutrition and NG feeds reviewed care and optimize position change surgical follow up noted monitor protein levels medications/laboratory data/nursing notes/ICU care reviewed in detail note reviewed and edited care discussed with RN and RT ICU time spent >40 minutes CXR: ETT appropriate, persistent patchy consolidations bilaterally Laboratory Tests Noted Simone Anguiano MD May 31, 2020 16:37
--- NOTE | 2020-05-31 16:55 | Cardiology Progress Note ---
Subjective DATE OF SERVICE: May 31, 2020 Condition remains critical; patient remains on [facility] ventilation - failed wean, and now s/p trach. Monitor: AFib with episodes of RVR and nonsustained VTach. BP range improved. Episodes of tachyarrhythmias persist. CXR (05/24) reviewed: patchy left infiltrates with small pl eff'n - unchanged. ICU logs and cardiology care plan reviewed and updated Objective Last 24 Hour Vital Signs Date Time Temp Pulse Resp B/P (MAP) Pulse Ox O2 Delivery O2 Flow Rate FiO2 05/31/20 16:00 Mechanical Ventilator Mechanical Ventilator 05/31/20 16:00 108 05/31/20 16:00 40 05/31/20 16:00 97.9 136 20 118/57 (77) 100 05/31/20 15:30 132 17 30 05/31/20 13:17 123 113/54 05/31/20 12:00 123 05/31/20 12:00 Mechanical Ventilator Mechanical Ventilator 05/31/20 12:00 40 05/31/20 12:00 97.5 121 20 113/54 (73) 100 05/31/20 11:30 130 19 30 05/31/20 08:00 113 05/31/20 08:00 40 05/31/20 08:00 97.8 115 19 125/55 (78) 100 05/31/20 08:00 Mechanical Ventilator Mechanical Ventilator 05/31/20 07:23 120 15 30 05/31/20 05:17 109 121/56 05/31/20 04:00 40 05/31/20 04:00 109 05/31/20 04:00 98.7 110 14 121/56 (77) 100 05/31/20 04:00 Mechanical Ventilator Trach Collar 05/31/20 03:26 106 17 30 05/31/20 00:00 106 05/31/20 00:00 40 05/31/20 00:00 99.5 105 14 106/45 (65) 100 05/31/20 00:00 Mechanical Ventilator Trach Collar 05/30/20 23:13 116 15 100 Mechanical Ventilator 30 116 15 05/30/20 22:17 99.0 05/30/20 21:46 118 107/53 05/30/20 20:00 40 05/30/20 20:00 118 05/30/20 20:00 119 14 111/57 (75) 100 05/30/20 20:00 Mechanical Ventilator Trach Collar 05/30/20 19:05 111 14 100 Mechanical Ventilator 30 111 14 05/30/20 18:00 112 14 104/58 (73) 100 05/30/20 18:00 98.0 110 15 99/55 (70) 100 05/30/20 17:00 111 15 82/65 (71) 100 ROS: unchanged from my eval of 05/03/20 HEENT: Orally intubated, Mechanically Ventilated, Thin secretions ET Tube RHYTHM: Afib LUNGS: no accessory muscle use, expiratory wheezing, diminished breath sounds CARDIAC: normal S1 and S2, no murmur, irregularly irregular ABDOMEN: normal bowel sounds, non tender, soft, no organomegaly EXTREMITIES: no calf tenderness, +1 edema Laboratory Tests Test 05/30/20 18:05 05/30/20 22:55 05/31/20 04:40 05/31/20 05:23 White Blood Count 4.6 K/UL (4.8-10.8) L 4.1 K/UL (4.8-10.8) L Red Blood Count 2.77 M/UL (4.20-5.40) L 2.83 M/UL (4.20-5.40) L Hemoglobin 7.6 G/DL (12.0-16.0) L 7.8 G/DL (12.0-16.0) L Hematocrit 24.3 % (37.0-47.0) L 23.7 % (37.0-47.0) L Mean Corpuscular Volume 88 FL (80-99) 84 FL (80-99) Mean Corpuscular Hemoglobin 27.5 PG (27.0-31.0) 27.5 PG (27.0-31.0) Mean Corpuscular Hemoglobin Concent 31.3 G/DL (32.0-36.0) L 32.9 G/DL (32.0-36.0) Red Cell Distribution Width 18.4 % (11.6-14.8) H 17.3 % (11.6-14.8) H Platelet Count 192 K/UL (150-450) 204 K/UL (150-450) Mean Platelet Volume 6.7 FL (6.5-10.1) 6.7 FL (6.5-10.1) Neutrophils (%) (Auto) % (45.0-75.0) % (45.0-75.0) Lymphocytes (%) (Auto) % (20.0-45.0) % (20.0-45.0) Monocytes (%) (Auto) % (1.0-10.0) % (1.0-10.0) Eosinophils (%) (Auto) % (0.0-3.0) % (0.0-3.0) Basophils (%) (Auto) % (0.0-2.0) % (0.0-2.0) Differential Total Cells Counted 100 100 Neutrophils % (Manual) 50 % (45-75) 63 % (45-75) Lymphocytes % (Manual) 34 % (20-45) 20 % (20-45) Monocytes % (Manual) 8 % (1-10) 11 % (1-10) H Eosinophils % (Manual) 3 % (0-3) 5 % (0-3) H Basophils % (Manual) 1 % (0-2) 1 % (0-2) Band Neutrophils 4 % (0-8) 0 % (0-8) Nucleated Red Blood Cells 1 /100 WBC Platelet Estimate Adequate Adequate Platelet Morphology Normal Normal Hypochromasia 1+ 3+ Anisocytosis 1+ 1+ Sodium Level 145 MMOL/L (136-145) 143 MMOL/L (136-145) Potassium Level 3.6 MMOL/L (3.5-5.1) 3.5 MMOL/L (3.5-5.1) Chloride Level 111 MMOL/L (98-107) H 109 MMOL/L (98-107) H Carbon Dioxide Level 27 MMOL/L (21-32) 28 MMOL/L (21-32) Anion Gap 7 mmol/L (5-15) 6 mmol/L (5-15) Blood Urea Nitrogen 74 mg/dL (7-18) H 70 mg/dL (7-18) H Creatinine 2.3 MG/DL (0.55-1.30) H 2.3 MG/DL (0.55-1.30) H Estimat Glomerular Filtration Rate 24.7 mL/min (>60) 24.7 mL/min (>60) Glucose Level 133 MG/DL (74-106) H 130 MG/DL (74-106) H Calcium Level 8.0 MG/DL (8.5-10.1) L 8.1 MG/DL (8.5-10.1) L Total Bilirubin 0.5 MG/DL (0.2-1.0) 0.5 MG/DL (0.2-1.0) Aspartate Amino Transf (AST/SGOT) 46 U/L (15-37) H 48 U/L (15-37) H Alanine Aminotransferase (ALT/SGPT) 54 U/L (12-78) 53 U/L (12-78) Alkaline Phosphatase 254 U/L (46-116) H 253 U/L (46-116) H Total Protein 5.4 G/DL (6.4-8.2) L 5.6 G/DL (6.4-8.2) L Albumin 0.7 G/DL (3.4-5.0) L 0.7 G/DL (3.4-5.0) L Globulin 4.7 g/dL 4.9 g/dL Albumin/Globulin Ratio 0.1 (1.0-2.7) L 0.1 (1.0-2.7) L POC Whole Blood Glucose 128 MG/DL (74-106) H 136 MG/DL (74-106) H Test 05/31/20 11:11 POC Whole Blood Glucose 129 MG/DL (74-106) H Assessment/Plan Assessment/Plan Acute on chronic respiratory acidosis Acute respiratory failure - s/p trach. Shock LE edema due to severe pulmonary hypertension and right heart strain COPD exacerb with active bronchospasm Lactic acidosis COVID 19 PNA Acute on chr renal failure Chronic systolic/diastolic CHF Pulmonary fibrosis with chronic hypoxia Paroxysmal AFib with RVR Hx Multifocal atrial arrhythmias Pulmonary HTN - severe Hx NSVTach Severe protein/calorie malnutrition Acute myocardial ischemia Resolving transaminitis CRITICAL & GUARDED Vent support with on-going weaning efforts following trach Diltiazem dosing advanced; titrate based on BP parameters. Steroids per pulmonary Inhaled bronchodilators Hypotonic IVF until free water deficit corrected Full anticoagulation for cardioembolic prophyl - resumption post procedures. Isolation Anti-viral rx per ID Monitor liver fxn Simone Perez MD May 31, 2020 16:55
--- NOTE | 2020-05-31 19:17 | NUR ---
NURSE HAND-OFF REPORT: Important Events on Shift:stable the whole shift Patient Status: full code Diet: tube feedings Pending Orders: [] Pending Results/Labs:[] Pending MD notification:[] Latest Vital Signs: Temperature 97.9 , Pulse 108 , B/P 118 /57 , Respiratory Rate 20 , O2 SAT 100 , Mechanical Ventilator, O2 Flow Rate 4.0 . Vital Sign Comment: stable EKG Rhythm: Sinus Tachycardia Rhythm change?: N MD Notified?: Tracy Linn MD Response: No New Orders Received Latest [place] Fall Score: 70 Fall Risk: High Risk Safety Measures: Call light Within Reach, Bed Alarm Zone 2, Side Rails Side Rails x3, Bed position Low and Locked. Fall Precautions: Patient Fall Education Report given to josé miguel anderson.
--- NOTE | 2020-05-31 19:18 | NUR ---
NURSE NOTES: Received report from DAMIAN Fair. A/O x 1 upon assessment. Confused. Responsive to verbal and tactile stimuli. Resistive to care. 5-lead EKG shows ST at 130 BPM. MD aware. Trach to Vent saturating at 100% with prescribed settings. Cuff checked and oral care provided. Pt refusing oral care despite encouragement and reassurance. NGT on right nare running Vital AF at 40 cc. 0 residual noted. Rectal tube and mueller draining to gravity. Right IV site intact running D5W at 75 cc. Will reorient and continue to monitor. Bed kept in lowest and locked position. Bed alarm on. Will continue monitoring.
[2020-05-31 20:00] VITALS: BP 122/56
--- NOTE | 2020-05-31 22:36 | NUR ---
NURSE NOTES: Pt sister and daughter calling to check up on patient. Per family they "are all in medical field and hope she doesn't get a g-tube." Pt in stable condition.
[2020-06-01] VITALS (7 sets, daily range): BP systolic 96–113; BP diastolic 32–60
--- NOTE | 2020-06-01 03:15 | NUR ---
NURSE NOTES: Unsuccessful placement of NG-tube. Observed pt having difficulty swallowing. Observed to be pocketing ice chips and thickened water when requesting a drink. Will reattempt reinsertion. Addendum: 06/01/20 at 0319 by Cheryl Cabezas RN Disregard. Wrong patient.
--- NOTE | 2020-06-01 04:53 | NUR ---
NURSE NOTES: Pt resting in bed. Tolerated bed bath, and continues to refuse oral care. No s/s of distress noted.
[2020-06-01] MEDS: dilTIAZem HCl 60mg tab ORAL SCH ×2 (05:57)
[2020-06-01] MEDS: NovoLOG Insulin Flexpen SUBQ SCH ×4 (05:58→18:00)
--- NOTE | 2020-06-01 06:50 | NUR ---
NURSE NOTES: Pt BSG 146 mg/dl. Insulin given per sliding scale.
--- NOTE | 2020-06-01 06:57 | NUR ---
NURSE HAND-OFF REPORT: Important Events on Shift: No changes Patient Status: Stable Diet: Vital AF Pending Orders: N Pending Results/Labs: N Pending MD notification: N Latest Vital Signs: Temperature 98.2 , Pulse 124 , B/P 100 /52 , Respiratory Rate 20 , O2 SAT 100 , Mechanical Ventilator, O2 Flow Rate 4.0 . Vital Sign Comment: Sinus [place] EKG Rhythm: Sinus Tachycardia Rhythm change?: N MD Notified?: Y -Dr Kaveh MCCRACKEN Response: No New Orders Received Latest Lechuga Fall Score: 70 Fall Risk: High Risk Safety Measures: Call light Within Reach, Bed Alarm Zone 1, Side Rails Side Rails x3, Bed position Low and Locked. Fall Precautions: Patient Fall Education Report given to DAMIAN Mcconnell.
[2020-06-01] MEDS: Ipratropium Bromide Inhaler INH SCH ×4 (07:20→19:52)
--- NOTE | 2020-06-01 07:30 | NUR ---
NURSE NOTES: Received report from DAMIAN Luna. The patient is resting on the bed without acute distress or shortness of breath. The patient is opening eyes spontaneously and able to communicate with lip words. Communication made by lip words, facial expression, and body movement. ST w/ PVCs with HR of 120s on the cardiac tech. The patient is trach'ed on following ventilator setting and oxygen saturation is 100%: [place]iley 8, AC 14, TV 500, FiO2 40%, PEEP 5. The patient's R NGT that is intact, patent, and placement confirmed and running Vital AF @ 40mL/hr per order and no residual noted. The patient has [place] and rectal tube that is intact and draining by gravity. The patient's skin issue noted and dressing intact. The patient has R hand 20G PIV that is intact and patent and running D5W @ 75mL/hr per order. The patient's bed in the lowest position, call light in reach, and fall and aspiration precaution reinforced. IV site intact and patent. Will follow up the lab and order. Will closely monitor the patient. Will continue plan of care.
[2020-06-01 07:58] LABS: CALCIUM 7.9 MG/DL (8.5-10.1); POTASSIUM 3.4 MMOL/L (3.5-5.1)
--- NOTE | 2020-06-01 08:00 | NUR ---
NURSE NOTES: Paged Dr. Perez regarding sustained elevated HR. Awaiting for the response. Will closely monitor the patient. Will continue plan of care.
--- NOTE | 2020-06-01 08:06 | Pulmonology Progress Note ---
Subjective ROS Limited/Unobtainable: Yes Constitutional: Reports: other - dosen,t feel good Musculoskeletal: Denies: pain Allergies: Coded Allergies: CIPROFLOXACIN (Verified Allergy, Unknown, 09/27/17) All Systems: reviewed and negative except above Subjective on vent- underwent trach pulse rate better comfortable sedated reduced LOC ICU care reviewed Objective Last 24 Hour Vital Signs Date Time Temp Pulse Resp B/P (MAP) Pulse Ox O2 Delivery O2 Flow Rate FiO2 06/01/20 05:57 124 100/52 06/01/20 04:00 98.2 124 20 100/51 (67) 100 06/01/20 04:00 40 06/01/20 04:00 Mechanical Ventilator Mechanical Ventilator 06/01/20 03:57 124 16 30 06/01/20 03:43 121 06/01/20 00:00 40 06/01/20 00:00 Mechanical Ventilator Mechanical Ventilator 06/01/20 00:00 99.0 127 21 99/52 (68) 100 06/01/20 00:00 103 99/52 05/31/20 23:34 124 05/31/20 23:18 130 18 100 Mechanical Ventilator 30 130 18 05/31/20 20:00 40 05/31/20 20:00 Mechanical Ventilator Mechanical Ventilator 05/31/20 20:00 99.5 134 20 122/56 (78) 100 05/31/20 19:55 133 14 100 Mechanical Ventilator 30 133 15 05/31/20 19:32 134 05/31/20 17:01 108 118/57 05/31/20 16:00 Mechanical Ventilator Mechanical Ventilator 05/31/20 16:00 108 05/31/20 16:00 40 05/31/20 16:00 97.9 136 20 118/57 (77) 100 05/31/20 15:30 132 17 30 05/31/20 13:17 123 113/54 05/31/20 12:00 123 05/31/20 12:00 Mechanical Ventilator Mechanical Ventilator 05/31/20 12:00 40 05/31/20 12:00 97.5 121 20 113/54 (73) 100 05/31/20 11:30 130 19 30 Intake and Output 05/31/20 06/01/20 19:00 07:00 Intake Total 1650 ml 1863.8 ml Output Total 1050 ml 1000 ml Balance 600 ml 863.8 ml Free Water 500 ml 625 ml IV Total 750 ml 798.8 ml Tube Feeding 400 ml 440 ml Output Urine Total 900 ml 1000 ml Stool Total 150 ml Objective deferred due to COVID Laboratory Tests 05/31/20 11:11: POC Whole Blood Glucose 129H 05/31/20 17:08: POC Whole Blood Glucose 115H 06/01/20 05:30: Sodium Level [Pending], Potassium Level [Pending], Chloride Level [Pending], Carbon Dioxide Level [Pending], Blood Urea Nitrogen [Pending], Creatinine [Pending], Estimat Glomerular Filtration Rate [Pending], Glucose Level [Pending], Calcium Level [Pending] 06/01/20 05:31: POC Whole Blood Glucose 146H Current Medications Medications (Trade) Dose Ordered Sig/Ghislaine Route PRN Reason Start Time Stop Time Status Last Admin Dose Admin Acetaminophen (Tylenol) 500 mg Q4H PRN ORAL Mild Pain (Pain Scale 1-3) 05/11/20 20:00 06/02/20 19:59 05/27/20 09:50 Acetaminophen (Tylenol) 650 mg Q4H PRN NG Temp >100.5 05/25/20 16:15 06/24/20 16:14 05/30/20 21:47 Albuterol Sulfate (Proventil MDI) 2 puff Q4H PRN INH Shortness of Breath 05/11/20 20:00 08/01/20 11:59 05/13/20 10:30 Dextrose 1,000 ml @ 75 mls/hr [id number] IV 05/29/20 07:30 06/28/20 07:29 06/01/20 02:21 Dextrose (Dextrose 50%) 25 ml Q30M PRN IV Hypoglycemia 05/22/20 18:30 08/20/20 18:29 Dextrose (Dextrose 50%) 50 ml Q30M PRN IV Hypoglycemia 05/22/20 18:30 08/20/20 18:29 Diltiazem HCl (Cardizem Tab) 60 mg EVERY 6 HOURS ORAL 05/31/20 18:00 06/30/20 17:59 06/01/20 05:57 Insulin Aspart (NovoLOG) Q6HR SUBQ 05/23/20 00:00 08/20/20 20:59 06/01/20 06:01 Ipratropium [place] (Atrovent Inh) 1 puffs QIDRT INH 06/01/20 07:00 06/26/20 09:59 Levofloxacin (Levaquin) 250 mg Q48H NG 05/31/20 09:00 06/07/20 08:59 05/31/20 08:12 Loperamide HCl (Imodium) 2 mg Q6H PRN NG Diarrhea 05/26/20 17:45 06/25/20 17:44 05/27/20 10:52 Pantoprazole (Protonix) 40 mg DAILY IVP 05/28/20 09:00 06/27/20 08:59 05/31/20 08:12 Salmeterol Xinafoate/ Fluticasone (Advair 100/50 Diskus) 1 puffs BIDRT INH 05/11/20 22:00 08/09/20 21:59 05/16/20 09:02 Assessment/Plan Assessment/Plan Impression: COVID-19 Chronic obstructive pulmonary disease/Asthma Community acquired pneumonia Atrial fibrillation with RVR Elevated troponin Congestive heart Failure sinus tachycardia Hypoxemia transaminitis with gallstones acute on chronic renal failure acute respiratory failure hypotension tachycardia transaminitis MODS anemia Plan ID noted transfusion needed gi follow up monitor vitals Vent support/and trach care feeds per dietary and monitor residuals; await GT IV therapy noted Bronchodilator therapy Eliquis on hold- need to resume GT needed Monitor labs/ renal follow up - renal function still reduced- Covid 19 Isolation- per ID ? dc nutrition and NG feeds reviewed care and optimize position change and monitor skin surgical follow up noted monitor protein levels and adjust impression, plan, and exam edited and reviewed in detail care discussed with Aaron Bales MD Jun 01, 2020 08:06
--- NOTE | 2020-06-01 08:30 | NUR ---
NURSE NOTES: Notified Dr. Jefferson regarding abnormal lab including hemoglobin, potassium, BUN, Cr. Dr. Jefferson ordered 20mEq KCL via NGT route. Will carry out the order as soon as possible. Will continue plan of care.
--- NOTE | 2020-06-01 09:00 | NUR ---
NURSE NOTES: Paged Dr. Perez again for elevated HR and low blood pressure. No response yet. Awaiting for further order. Will closely monitor the patient. Will continue plan fo care.
[2020-06-01 09:09] LABS: HEMATOCRIT 23.7 % (37.0-47.0); HEMOGLOBIN 7.8 G/DL (12.0-16.0); MEAN CORPUSCULAR VOLUME 83 FL (80-99); PLATELET COUNT 242 K/UL (150-450); RED BLOOD COUNT 2.86 M/UL (4.20-5.40); RED CELL DISTRIBUTION WIDTH 16.9 % (11.6-14.8); WHITE BLOOD COUNT 5.2 K/UL (4.8-10.8)
[2020-06-01] MEDS: Pantoprazole Inj IVP SCH (09:38)
[2020-06-01] MEDS: Wixela 100/50 Inhaler - 60 dose INH SCH ×2 (10:00→22:00)
--- NOTE | 2020-06-01 10:00 | NUR ---
NURSE NOTES: Medications administered per order. The patient tolerated well. Will closely monitor the patient. Will continue plan of care.
--- NOTE | 2020-06-01 11:00 | NUR ---
NURSE NOTES: Dr. Torres at the bedside assessed the patient. Notified abnormal lab including hemoglobin. No new order at this time. Will continue plan of care.
--- NOTE | 2020-06-01 11:11 | Infectious Diseases Prog Note ---
Assessment/Plan Assessment/Plan antibiotics : levoquin A 1. COVID 19 pneumonia s/p ivermectin 9.7.20 2. renal failure 3. increased LFT 4. COPD 5. CHF 6. asthma 7. respiratory failure s/p tracheostomy 8. leucocytosis resolved 9. pseudomonas pneumonia 10. fungal UTI s/p rx P 1. continue levoquin 6 more days 2. will follow up cultures Subjective ROS Limited/Unobtainable: Yes Allergies: Coded Allergies: CIPROFLOXACIN (Verified Allergy, Unknown, 09/27/17) Objective Last 24 Hour Vital Signs Date Time Temp Pulse Resp B/P (MAP) Pulse Ox O2 Delivery O2 Flow Rate FiO2 06/01/20 07:20 129 18 100 30 130 20 06/01/20 05:57 124 100/52 06/01/20 04:00 98.2 124 20 100/51 (67) 100 06/01/20 04:00 40 06/01/20 04:00 Mechanical Ventilator Mechanical Ventilator 06/01/20 03:57 124 16 30 06/01/20 03:43 121 06/01/20 00:00 40 06/01/20 00:00 Mechanical Ventilator Mechanical Ventilator 06/01/20 00:00 99.0 127 21 99/52 (68) 100 06/01/20 00:00 103 99/52 05/31/20 23:34 124 05/31/20 23:18 130 18 100 Mechanical Ventilator 30 130 18 05/31/20 20:00 40 05/31/20 20:00 Mechanical Ventilator Mechanical Ventilator 05/31/20 20:00 99.5 134 20 122/56 (78) 100 05/31/20 19:55 133 14 100 Mechanical Ventilator 30 133 15 05/31/20 19:32 134 05/31/20 17:01 108 118/57 05/31/20 16:00 Mechanical Ventilator Mechanical Ventilator 05/31/20 16:00 108 05/31/20 16:00 40 05/31/20 16:00 97.9 136 20 118/57 (77) 100 05/31/20 15:30 132 17 30 05/31/20 13:17 123 113/54 05/31/20 12:00 123 05/31/20 12:00 Mechanical Ventilator Mechanical Ventilator 05/31/20 12:00 40 05/31/20 12:00 97.5 121 20 113/54 (73) 100 05/31/20 11:30 130 19 30 Height (Feet): 5 Height (Inches): 3.00 Weight (Pounds): 174 HEENT: status post trach Laboratory Tests Test 05/31/20 11:11 05/31/20 17:08 06/01/20 05:30 06/01/20 05:31 POC Whole Blood Glucose 129 MG/DL (74-106) H 115 MG/DL (74-106) H 146 MG/DL (74-106) H White Blood Count 5.2 K/UL (4.8-10.8) Red Blood Count 2.86 M/UL (4.20-5.40) L Hemoglobin 7.8 G/DL (12.0-16.0) L Hematocrit 23.7 % (37.0-47.0) L Mean Corpuscular Volume 83 FL (80-99) Mean Corpuscular Hemoglobin 27.3 PG (27.0-31.0) Mean Corpuscular Hemoglobin Concent 33.0 G/DL (32.0-36.0) Red Cell Distribution Width 16.9 % (11.6-14.8) H Platelet Count 242 K/UL (150-450) Mean Platelet Volume 6.6 FL (6.5-10.1) Neutrophils (%) (Auto) % (45.0-75.0) Lymphocytes (%) (Auto) % (20.0-45.0) Monocytes (%) (Auto) % (1.0-10.0) Eosinophils (%) (Auto) % (0.0-3.0) Basophils (%) (Auto) % (0.0-2.0) Differential Total Cells Counted 100 Neutrophils % (Manual) 70 % (45-75) Lymphocytes % (Manual) 15 % (20-45) L Monocytes % (Manual) 11 % (1-10) H Eosinophils % (Manual) 2 % (0-3) Basophils % (Manual) 0 % (0-2) Band Neutrophils 2 % (0-8) Nucleated Red Blood Cells 1 /100 WBC Platelet Estimate Adequate Platelet Morphology Normal Hypochromasia 3+ Anisocytosis 1+ Spherocytes 1+ Sodium Level 139 MMOL/L (136-145) Potassium Level 3.4 MMOL/L (3.5-5.1) L Chloride Level 106 MMOL/L (98-107) Carbon Dioxide Level 27 MMOL/L (21-32) Anion Gap 6 mmol/L (5-15) Blood Urea Nitrogen 62 mg/dL (7-18) H Creatinine 2.0 MG/DL (0.55-1.30) H Estimat Glomerular Filtration Rate 29.1 mL/min (>60) Glucose Level 145 MG/DL (74-106) H Calcium Level 7.9 MG/DL (8.5-10.1) L Current Medications Medications (Trade) Dose Ordered Sig/Ghislaine Route PRN Reason Start Time Stop Time Status Last Admin Dose Admin Acetaminophen (Tylenol) 500 mg Q4H PRN ORAL Mild Pain (Pain Scale 1-3) 05/11/20 20:00 06/02/20 19:59 05/27/20 09:50 Acetaminophen (Tylenol) 650 mg Q4H PRN NG Temp >100.5 05/25/20 16:15 06/24/20 16:14 05/30/20 21:47 Albuterol Sulfate (Proventil MDI) 2 puff Q4H PRN INH Shortness of Breath 05/11/20 20:00 08/01/20 11:59 05/13/20 10:30 Dextrose 1,000 ml @ 75 mls/hr [id number] IV 05/29/20 07:30 06/28/20 07:29 06/01/20 02:21 Dextrose (Dextrose 50%) 25 ml Q30M PRN IV Hypoglycemia 05/22/20 18:30 08/20/20 18:29 Dextrose (Dextrose 50%) 50 ml Q30M PRN IV Hypoglycemia 05/22/20 18:30 08/20/20 18:29 Diltiazem HCl (Cardizem Tab) 60 mg EVERY 6 HOURS NG 06/01/20 12:00 06/30/20 17:59 Insulin Aspart (NovoLOG) Q6HR SUBQ 05/23/20 00:00 08/20/20 20:59 06/01/20 06:01 Ipratropium [place] (Atrovent Inh) 1 puffs QIDRT INH 06/01/20 07:00 06/26/20 09:59 06/01/20 07:20 Levofloxacin (Levaquin) 250 mg Q48H NG 05/31/20 09:00 06/07/20 08:59 05/31/20 08:12 Loperamide HCl (Imodium) 2 mg Q6H PRN NG Diarrhea 05/26/20 17:45 06/25/20 17:44 05/27/20 10:52 Pantoprazole (Protonix) 40 mg DAILY IVP 05/28/20 09:00 06/27/20 08:59 06/01/20 09:38 Salmeterol Xinafoate/ Fluticasone (Advair 100/50 Diskus) 1 puffs BIDRT INH 05/11/20 22:00 08/09/20 21:59 05/16/20 09:02 Camilo Cameron MD Jun 01, 2020 11:11
--- NOTE | 2020-06-01 11:22 | NUR ---
CASE MANAGEMENT: REVIEW SI: COVID-19 . PNA . T 99.0 HR 127 RR 21 BP 99/52 SAT 100% MECH VENT FIO2 40 H/H 7.8/23.7 K 3.4 BUN 62 CR 2.0 GLUCOSE 146 IS: LEVAQUIN GT Q48HR ADVAIR INH BID PROTONIX IV QD D5W IVF @ 75ML/HR CARDIZEM Q6HR GT TYLENOL NGT Q4HR PRN STEP DOWN UNIT STATUS DCP: PATIENT IS FROM HOME
--- NOTE | 2020-06-01 12:00 | NUR ---
NURSE NOTES: Dr. Perez ordered Cardizem IVP. Paged Dr. Perez again to clarify the order since the patient's blood pressure is low side. Awaiting for call back. Will hold medication until clarification made. Will continue plan of care.
[2020-06-01] MEDS: dilTIAZem HCl 60mg tab NG SCH ×3 (12:10→23:56)
[2020-06-01] MEDS ORDERED: dilTIAZem HCl 25mg/5ml Inj IVP SCH ×2 (12:15→17:00)
--- NOTE | 2020-06-01 13:18 | Nephrology Progress Note ---
Assessment/Plan Plan Severe Prerenal Azotemia due to hypoperfusion. GFR seems to be slightly improving. MOF due to Covid 19 MOF. Subjective Subjective Confused Objective Objective Last 24 Hour Vital Signs Date Time Temp Pulse Resp B/P (MAP) Pulse Ox O2 Delivery O2 Flow Rate FiO2 06/01/20 12:10 127 101/43 06/01/20 11:40 127 17 30 06/01/20 08:00 98.3 128 20 102/49 (66) 100 06/01/20 08:00 126 06/01/20 08:00 40 06/01/20 07:20 129 18 100 30 130 20 06/01/20 05:57 124 100/52 06/01/20 04:00 98.2 124 20 100/51 (67) 100 06/01/20 04:00 40 06/01/20 04:00 Mechanical Ventilator Mechanical Ventilator 06/01/20 03:57 124 16 30 06/01/20 03:43 121 06/01/20 00:00 40 06/01/20 00:00 Mechanical Ventilator Mechanical Ventilator 06/01/20 00:00 99.0 127 21 99/52 (68) 100 06/01/20 00:00 103 99/52 05/31/20 23:34 124 05/31/20 23:18 130 18 100 Mechanical Ventilator 30 130 18 05/31/20 20:00 40 05/31/20 20:00 Mechanical Ventilator Mechanical Ventilator 05/31/20 20:00 99.5 134 20 122/56 (78) 100 05/31/20 19:55 133 14 100 Mechanical Ventilator 30 133 15 05/31/20 19:32 134 05/31/20 17:01 108 118/57 05/31/20 16:00 Mechanical Ventilator Mechanical Ventilator 05/31/20 16:00 108 05/31/20 16:00 40 05/31/20 16:00 97.9 136 20 118/57 (77) 100 05/31/20 15:30 132 17 30 Intake and Output0 05/31/20 06/01/20 19:00 07:00 Intake Total 1650 ml 1863.8 ml Output Total 1050 ml 1000 ml Balance 600 ml 863.8 ml Free Water 500 ml 625 ml IV Total 750 ml 798.8 ml Tube Feeding 400 ml 440 ml Output Urine Total 900 ml 1000 ml Stool Total 150 ml Laboratory Tests 05/31/20 17:08: POC Whole Blood Glucose 115H 06/01/20 05:30: White Blood Count 5.2, Red Blood Count 2.86L, Hemoglobin 7.8L, Hematocrit 23.7L, Mean Corpuscular Volume 83, Mean Corpuscular Hemoglobin 27.3, Mean Corpuscular Hemoglobin Concent 33.0, Red Cell Distribution Width 16.9H, Platelet Count 242, Mean Platelet Volume 6.6, Neutrophils (%) (Auto) , Lymphocytes (%) (Auto) , Monocytes (%) (Auto) , Eosinophils (%) (Auto) , Basophils (%) (Auto) , Differential Total Cells Counted 100, Neutrophils % (Manual) 70, Lymphocytes % (Manual) 15L, Monocytes % (Manual) 11H, Eosinophils % (Manual) 2, Basophils % (Manual) 0, Band Neutrophils 2, Nucleated Red Blood Cells 1, Platelet Estimate Adequate, Platelet Morphology Normal, Hypochromasia 3+, Anisocytosis 1+, Spherocytes 1+, Sodium Level 139, Potassium Level 3.4L, Chloride Level 106, Carbon Dioxide Level 27, Anion Gap 6, Blood Urea Nitrogen 62H, Creatinine 2.0H, Estimat Glomerular Filtration Rate 29.1, Glucose Level 145H, Calcium Level 7.9L 06/01/20 05:31: POC Whole Blood Glucose 146H 06/01/20 12:33: POC Whole Blood Glucose [Pending] Height (Feet): 5 Height (Inches): 3.00 Weight (Pounds): 174 Objective CV Tach +Irr Trach OK Lungs B Ronchi Abd SNT. BS + E +3 edema Ruth Coyne MD Jun 01, 2020 13:18
--- NOTE | 2020-06-01 14:12 | Surgery Progress Note ---
Surgery Progress Note Subjective Procedure Performed trach Additional Comments no acute events comfortable stable no n/v/f/c Objective Last 24 Hour Vital Signs Date Time Temp Pulse Resp B/P (MAP) Pulse Ox O2 Delivery O2 Flow Rate FiO2 06/01/20 12:10 127 101/43 06/01/20 11:40 127 17 30 06/01/20 08:00 98.3 128 20 102/49 (66) 100 06/01/20 08:00 126 06/01/20 08:00 40 06/01/20 07:20 129 18 100 30 130 20 06/01/20 05:57 124 100/52 06/01/20 04:00 98.2 124 20 100/51 (67) 100 06/01/20 04:00 40 06/01/20 04:00 Mechanical Ventilator Mechanical Ventilator 06/01/20 03:57 124 16 30 06/01/20 03:43 121 06/01/20 00:00 40 06/01/20 00:00 Mechanical Ventilator Mechanical Ventilator 06/01/20 00:00 99.0 127 21 99/52 (68) 100 06/01/20 00:00 103 99/52 05/31/20 23:34 124 05/31/20 23:18 130 18 100 Mechanical Ventilator 30 130 18 05/31/20 20:00 40 05/31/20 20:00 Mechanical Ventilator Mechanical Ventilator 05/31/20 20:00 99.5 134 20 122/56 (78) 100 05/31/20 19:55 133 14 100 Mechanical Ventilator 30 133 15 05/31/20 19:32 134 05/31/20 17:01 108 118/57 05/31/20 16:00 Mechanical Ventilator Mechanical Ventilator 05/31/20 16:00 108 05/31/20 16:00 40 05/31/20 16:00 97.9 136 20 118/57 (77) 100 05/31/20 15:30 132 17 30 I&O Intake and Output 05/31/20 06/01/20 19:00 07:00 Intake Total 1650 ml 1863.8 ml Output Total 1050 ml 1000 ml Balance 600 ml 863.8 ml Free Water 500 ml 625 ml IV Total 750 ml 798.8 ml Tube Feeding 400 ml 440 ml Output Urine Total 900 ml 1000 ml Stool Total 150 ml Dressing: other Wound: other Cardiovascular: RSR Respiratory: decreased breath sounds Abdomen: soft, non-tender, present bowel sounds Extremities: no edema, no tenderness, no cyanosis Laboratory Tests Test 05/31/20 17:08 06/01/20 05:30 06/01/20 05:31 06/01/20 12:33 POC Whole Blood Glucose 115 MG/DL (74-106) H 146 MG/DL (74-106) H Pending White Blood Count 5.2 K/UL (4.8-10.8) Red Blood Count 2.86 M/UL (4.20-5.40) L Hemoglobin 7.8 G/DL (12.0-16.0) L Hematocrit 23.7 % (37.0-47.0) L Mean Corpuscular Volume 83 FL (80-99) Mean Corpuscular Hemoglobin 27.3 PG (27.0-31.0) Mean Corpuscular Hemoglobin Concent 33.0 G/DL (32.0-36.0) Red Cell Distribution Width 16.9 % (11.6-14.8) H Platelet Count 242 K/UL (150-450) Mean Platelet Volume 6.6 FL (6.5-10.1) Neutrophils (%) (Auto) % (45.0-75.0) Lymphocytes (%) (Auto) % (20.0-45.0) Monocytes (%) (Auto) % (1.0-10.0) Eosinophils (%) (Auto) % (0.0-3.0) Basophils (%) (Auto) % (0.0-2.0) Differential Total Cells Counted 100 Neutrophils % (Manual) 70 % (45-75) Lymphocytes % (Manual) 15 % (20-45) L Monocytes % (Manual) 11 % (1-10) H Eosinophils % (Manual) 2 % (0-3) Basophils % (Manual) 0 % (0-2) Band Neutrophils 2 % (0-8) Nucleated Red Blood Cells 1 /100 WBC Platelet Estimate Adequate Platelet Morphology Normal Hypochromasia 3+ Anisocytosis 1+ Spherocytes 1+ Sodium Level 139 MMOL/L (136-145) Potassium Level 3.4 MMOL/L (3.5-5.1) L Chloride Level 106 MMOL/L (98-107) Carbon Dioxide Level 27 MMOL/L (21-32) Anion Gap 6 mmol/L (5-15) Blood Urea Nitrogen 62 mg/dL (7-18) H Creatinine 2.0 MG/DL (0.55-1.30) H Estimat Glomerular Filtration Rate 29.1 mL/min (>60) Glucose Level 145 MG/DL (74-106) H Calcium Level 7.9 MG/DL (8.5-10.1) L Plan Problems: (1) Elevated troponin (2) Atrial fibrillation with RVR (3) COVID-19 Assessment & Plan: ++ as per pulm and ID trach DAILY ESTIMATED NEEDS: Needs based on Critical Care, ARF/ 56kg abw 22-28 kcals/kg [id number] total kcals 0.8-1.5 (increase w/ renal improvement) g protein/kg 45-84 g total protein 25-30 mL/kg 9859-4863 total fluid mLs NUTRITION DIAGNOSIS: * Altered nutrition related lab values r/t clinical status as evidenced by elev BUN(82), creat(3.8) trending up, critical ABG (low pH, elev CO2)-> now improved. * Swallowing difficulty R/T respiratory status as evidenced by s/p oral intubation, on OGT feeds. 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: ICU RN eval post extubation ENTERAL NUTRITION RECOMMENDATIONS: Nepro @ 35ml/hr x 24 hrs to provide 840ml, 1512kcal, 68g prot, 610ml free water * W/ worsening renal fxn, rec to continue Nepro * As tolerated, increase goal rate to 35ml/hr x 24 hrs to meet 100% est kcal/prot needs ADDITIONAL RECOMMENDATIONS: 1) Calibrated bedscale wt 2) Monitor renal fxn and lytes, need to continue Nepro Creat trending up 3) Rec niss w/ solumedrol (4) Community acquired pneumonia (5) COPD (chronic obstructive pulmonary disease) (6) Pulmonary fibrosis (7) Asthma (8) History of asthma (9) NSTEMI (non-ST elevated myocardial infarction) (10) Moderate to severe pulmonary hypertension (11) Asthma exacerbation (12) Abnormal LFTs Assessment & Plan: afebrile, HD stable labs noted lft's elevated US reviewed exam benign gb likely reactive from underlying pathology unlikely cholecystitis clinically fluid overload trend labs will monitor exam clinically covid + prognosis guarded cxr reviewed on abx worsening plan repeat US - noted cannot get hida given covid labs noted worsening leukocytosis Gallbladder demonstrates wall thickening and wall edema, gallbladder wall measuring up to 6 mm thick. There are gallstones. Sonographic Escoto's sign is negative. Common bile duct measures 3 mm in diameter. No intrahepatic biliary ductal dilatation. Liver demonstrates normal echogenicity, no focal abnormality. Portal vein and hepatic veins are patent. Pancreas is unremarkable. Spleen is unremarkable. Left kidney measures 9.2 cm in length. Right kidney measures 9.9 cm length. Both kidneys demonstrate normal echogenicity. There is no hydronephrosis. Small cyst is seen in the right kidney. . Abdominal aorta was not imaged . There is trace ascites. There is a small right pleural effusion incidentally noted Impression: Small right pleural effusion. Trace ascites Cholelithiasis. Gallbladder wall thickening may be related to hemodynamic factors causing the pleural fluid and ascites, but could also indicate acute cholecystitis. Consider nuclear medicine hepatobiliary scan if there is high clinical suspicion. Negative for dilated bile ducts Small right renal cyst incidentally noted (13) Acute respiratory failure with hypoxia Assessment & Plan: s/p trach discussed with family comfortable weaning Quentin Sanchez Jun 01, 2020 14:12
--- NOTE | 2020-06-01 14:30 | NUR ---
NURSE NOTES: Dr. Perez called back and ordered to cancel Cardizem IVP and EKG to be done first prior to further order. EKG taken and faxed to Dr. Perez's office. Awaiting for further order. Will closely monitor the patient. Will continue plan of care.
--- NOTE | 2020-06-01 16:00 | NUR ---
NURSE NOTES: Bed bath given to the patient. Tolerated well. Generalized edema with oozing noted. Will closely monitor the patient. Will continue plan of care.
--- NOTE | 2020-06-01 16:14 | General Progress Note ---
Subjective ROS Limited/Unobtainable: No Constitutional: Reports: malaise, weakness HEENT: Reports: no symptoms Cardiovascular: Reports: no symptoms Respiratory: Reports: cough, shortness of breath, sputum Gastrointestinal/Abdominal: Reports: difficulty swallowing Genitourinary: Reports: no symptoms Neurologic/Psychiatric: Reports: anxiety Endocrine: Reports: no symptoms Hematologic/Lymphatic: Reports: anemia Allergies: Coded Allergies: CIPROFLOXACIN (Verified Allergy, Unknown, 09/27/17) All Systems: reviewed and negative except above Subjective no events. stable on the vent. tolerating feeds. no vomiting. no distress. opens eyes. HR elevated. BP stable. low K. Cr slowly improving. Objective Last 24 Hour Vital Signs Date Time Temp Pulse Resp B/P (MAP) Pulse Ox O2 Delivery O2 Flow Rate FiO2 06/01/20 12:15 125 98/53 06/01/20 12:10 127 101/43 06/01/20 12:00 Mechanical Ventilator Mechanical Ventilator 06/01/20 12:00 127 06/01/20 12:00 40 06/01/20 12:00 97.9 126 18 101/43 (62) 100 06/01/20 11:40 127 17 30 06/01/20 08:00 98.3 128 20 102/49 (66) 100 06/01/20 08:00 126 06/01/20 08:00 Mechanical Ventilator Mechanical Ventilator 06/01/20 08:00 40 06/01/20 07:20 129 18 100 30 130 20 06/01/20 05:57 124 100/52 06/01/20 04:00 98.2 124 20 100/51 (67) 100 06/01/20 04:00 40 06/01/20 04:00 Mechanical Ventilator Mechanical Ventilator 06/01/20 03:57 124 16 30 06/01/20 03:43 121 06/01/20 00:00 40 06/01/20 00:00 Mechanical Ventilator Mechanical Ventilator 06/01/20 00:00 99.0 127 21 99/52 (68) 100 06/01/20 00:00 103 99/52 05/31/20 23:34 124 05/31/20 23:18 130 18 100 Mechanical Ventilator 30 130 18 05/31/20 20:00 40 05/31/20 20:00 Mechanical Ventilator Mechanical Ventilator 05/31/20 20:00 99.5 134 20 122/56 (78) 100 05/31/20 19:55 133 14 100 Mechanical Ventilator 30 133 15 05/31/20 19:32 134 05/31/20 17:01 108 118/57 Intake and Output 05/31/20 06/01/20 19:00 07:00 Intake Total 1650 ml 1863.8 ml Output Total 1050 ml 1000 ml Balance 600 ml 863.8 ml Free Water 500 ml 625 ml IV Total 750 ml 798.8 ml Tube Feeding 400 ml 440 ml Output Urine Total 900 ml 1000 ml Stool Total 150 ml Laboratory Tests 05/31/20 17:08: POC Whole Blood Glucose 115H 06/01/20 05:30: White Blood Count 5.2, Red Blood Count 2.86L, Hemoglobin 7.8L, Hematocrit 23.7L, Mean Corpuscular Volume 83, Mean Corpuscular Hemoglobin 27.3, Mean Corpuscular Hemoglobin Concent 33.0, Red Cell Distribution Width 16.9H, Platelet Count 242, Mean Platelet Volume 6.6, Neutrophils (%) (Auto) , Lymphocytes (%) (Auto) , Monocytes (%) (Auto) , Eosinophils (%) (Auto) , Basophils (%) (Auto) , Differential Total Cells Counted 100, Neutrophils % (Manual) 70, Lymphocytes % (Manual) 15L, Monocytes % (Manual) 11H, Eosinophils % (Manual) 2, Basophils % (Manual) 0, Band Neutrophils 2, Nucleated Red Blood Cells 1, Platelet Estimate Adequate, Platelet Morphology Normal, Hypochromasia 3+, Anisocytosis 1+, Spherocytes 1+, Sodium Level 139, Potassium Level 3.4L, Chloride Level 106, Carbon Dioxide Level 27, Anion Gap 6, Blood Urea Nitrogen 62H, Creatinine 2.0H, Estimat Glomerular Filtration Rate 29.1, Glucose Level 145H, Calcium Level 7.9L 06/01/20 05:31: POC Whole Blood Glucose 146H 06/01/20 12:33: POC Whole Blood Glucose [Pending] Height (Feet): 5 Height (Inches): 3.00 Weight (Pounds): 174 Objective General Appearance: WD/WN, no apparent distress, alert. orally intubated EENT: PERRL/EOMI Neck: non-tender, normal alignment, supple Cardiovascular: normal rate, regular rhythm Respiratory/Chest: chest wall non-tender, lungs clear, normal breath sounds, no respiratory distress, no accessory muscle use Abdomen: normal bowel sounds, non tender, soft, no organomegaly Edema: no edema noted Arm (L), no edema noted Arm (R) Neurologic: gi asst II-XII grossly normal, alert, oriented x 3, responsive Skin: normal pigmentation Lymphatic: normal anterior cervical (L), normal anterior cervical (R) Assessment/Plan Problem List: (1) Pulmonary fibrosis ICD Codes: J84.10 - Pulmonary fibrosis, unspecified SNOMED: 26509966 (2) History of asthma ICD Codes: Z87.09 - Personal history of other diseases of the respiratory system SNOMED: 927979514 (3) Asthma ICD Codes: J45.909 - Unspecified asthma, uncomplicated SNOMED: 246773442 (4) NSTEMI (non-ST elevated myocardial infarction) ICD Codes: I21.4 - Non-ST elevation (NSTEMI) myocardial infarction SNOMED: 463913001 (5) Elevated troponin ICD Codes: R79.89 - Other specified abnormal findings of blood chemistry SNOMED: 482140744, 475088254, 401946214 (6) COPD (chronic obstructive pulmonary disease) ICD Codes: J44.9 - Chronic obstructive pulmonary disease, unspecified SNOMED: 16420317 (7) Atrial fibrillation with RVR ICD Codes: I48.91 - Unspecified atrial fibrillation SNOMED: 840174070648775 (8) Community acquired pneumonia ICD Codes: J18.9 - Pneumonia, unspecified organism SNOMED: 284173700 Status: stable Assessment/Plan: cont iv abx- matthew and inh tobra water flushes via ngt monitor renal fxn/lytes ivf per renal ngt feeds gt next week tylenol for fever wean vent as able BP rx keep dry cardizem for rate control dvt/stress ulcer prophylaxis skin care imodium as needed trach care eliquis and aspirin on hold for procedures turn q2 critical and guarded d/w Dtr agrees to GT placement Bradford Linn MD Jun 01, 2020 16:14
--- NOTE | 2020-06-01 17:00 | NUR ---
NURSE NOTES: Dr. Perez ordered to administer Diltiazem 15mg IVP with noted blood pressure and heart rate. Administered per order. Will closely monitor the patient. Will continue plan of care.
--- NOTE | 2020-06-01 18:30 | NUR ---
NURSE NOTES: Dr. Perez at the bedside assessed the patient. Notified EKG result and vital signs trend. Dr. Perez ordered to administer Diltiazem 60mg via NGT even with Diltiazem 15mg IVP in past hour. Dr. Perez also ordered 1 unit pRBC to be transfused. Dr. Perez ordered the night nurse to call back regarding the patient's heart rate and blood pressure after 1 unit pRBC transfusion. Will closely monitor the patient. Will continue plan of care.
--- NOTE | 2020-06-01 19:30 | NUR ---
NURSE NOTES:NURSE HAND-OFF REPORT: Important Events on Shift: Afib w/ HR of 120s even with Cardizem IVP and NGT per Dr. Perez's order, K of 3.4_ 20mEq KCL NGT per Dr. Jefferson's order, Failed weaning of vent Patient Status: Stable, Full code Diet: R NGT feeding Vital AF @40mL/hr Pending Orders: 1 unit pRBC transfusion per Dr. Perez and notify Dr. Perez regarding vital signs after transfusion Pending Results/Labs: N Pending MD notification:Notify Dr. Perez regarding the patient's vital signs after 1 unit pRBC transfusion Latest Vital Signs: Temperature 99.7 , Pulse 132 , B/P 104 /60 , Respiratory Rate 19 , O2 SAT 100 , Mechanical Ventilator, O2 Flow Rate 4.0 . Vital Sign Comment: Stable EKG Rhythm: Sinus Tachycardia Rhythm change?: N Notified?: Y -Dr Kaveh MCCRACKEN Response: No New Orders Received Latest Lechuga Fall Score: 50 Fall Risk: High Risk Safety Measures: Call light Within Reach, Bed Alarm Zone 1, Side Rails Side Rails x3, Bed position Low and Locked. Fall Precautions: Yellow Socks Yellow Gown Door Sign Patient Fall Education Report given to HAN RN. The patient is stable at this time. Endorsed plan of care.
--- NOTE | 2020-06-01 19:30 | NUR ---
NURSE NOTES: Received report from DAMIAN Mcconnell. Pt asleep in bed, afebrile and no respirator distress noted. On vent to trache S8, AC14, TV 500, FiO2 40%, PEEP 5 saturating at 100%. Sinus tachy on personnel monitor at 128-130 bpm. On Vital AF 1.2 at 40cc/hr via right nares NGT infusing well without residual and sediments. With right hand 20G iv line intact, patent and asymptomatic. With FC to UB draining well and rectal tube in place draining well. Needs were attended. on BP monitoring at low boundary normal limits. . MD was made aware and medication were given in AM per endorsement. Call light within reach. Bed rails are up and wheels are locked. HOB elevated. Continue more of care.
[2020-06-01] MEDS: Acetaminophen 650mg/20.3ml NG PRN (22:17)
--- NOTE | 2020-06-01 22:20 | NUR ---
NURSE NOTES: Pt was noted with temperature of 100.5. warm to touch. non diaphoretic. medication given. Ice packs provided to help lower down the temperature. Continue to monitor
--- NOTE | 2020-06-01 22:32 | Cardiology Progress Note ---
Subjective DATE OF SERVICE: Jun 01, 2020 Condition remains critical; [facility] failed wean, and now s/p trach. Monitor: AFib with episodes of RVR and rare nonsustained VTach. BP range improved. Episodes of tachyarrhythmias persist. CXR (05/24) reviewed: patchy left infiltrates with small pl eff'n - unchanged. ICU logs and cardiology care plan reviewed and updated Objective Last 24 Hour Vital Signs Date Time Temp Pulse Resp B/P (MAP) Pulse Ox O2 Delivery O2 Flow Rate FiO2 06/01/20 20:00 97.5 129 17 100/49 (66) 100 06/01/20 20:00 Mechanical Ventilator Mechanical Ventilator 06/01/20 20:00 128 06/01/20 20:00 40 06/01/20 19:52 132 19 100 Mechanical Ventilator 30 130 18 30 06/01/20 18:42 121 104/60 06/01/20 18:40 121 104/60 (75) 06/01/20 17:22 127 102/45 06/01/20 16:00 123 06/01/20 16:00 99.7 127 17 96/43 (60) 100 06/01/20 16:00 40 06/01/20 16:00 Mechanical Ventilator Mechanical Ventilator 06/01/20 16:00 123 06/01/20 15:40 127 17 30 06/01/20 12:15 125 98/53 06/01/20 12:10 127 101/43 06/01/20 12:00 Mechanical Ventilator Mechanical Ventilator 06/01/20 12:00 127 06/01/20 12:00 40 06/01/20 12:00 97.9 126 18 101/43 (62) 100 06/01/20 11:40 127 17 30 06/01/20 08:00 98.3 128 20 102/49 (66) 100 06/01/20 08:00 126 06/01/20 08:00 Mechanical Ventilator Mechanical Ventilator 06/01/20 08:00 40 06/01/20 07:20 129 18 100 30 130 20 06/01/20 05:57 124 100/52 06/01/20 04:00 98.2 124 20 100/51 (67) 100 06/01/20 04:00 40 06/01/20 04:00 Mechanical Ventilator Mechanical Ventilator 06/01/20 03:57 124 16 30 06/01/20 03:43 121 06/01/20 00:00 40 06/01/20 00:00 Mechanical Ventilator Mechanical Ventilator 06/01/20 00:00 99.0 127 21 99/52 (68) 100 06/01/20 00:00 103 99/52 05/31/20 23:34 124 05/31/20 23:18 130 18 100 Mechanical Ventilator 30 130 18 ROS: unchanged from my eval of 05/03/20 HEENT: Orally intubated, Mechanically Ventilated, Thin secretions ET Tube RHYTHM: Afib LUNGS: no accessory muscle use, expiratory wheezing, diminished breath sounds CARDIAC: normal S1 and S2, no murmur, irregularly irregular ABDOMEN: normal bowel sounds, non tender, soft, no organomegaly EXTREMITIES: no calf tenderness, +1 edema Laboratory Tests Test 06/01/20 05:30 06/01/20 05:31 06/01/20 12:33 06/01/20 17:44 White Blood Count 5.2 K/UL (4.8-10.8) Red Blood Count 2.86 M/UL (4.20-5.40) L Hemoglobin 7.8 G/DL (12.0-16.0) L Hematocrit 23.7 % (37.0-47.0) L Mean Corpuscular Volume 83 FL (80-99) Mean Corpuscular Hemoglobin 27.3 PG (27.0-31.0) Mean Corpuscular Hemoglobin Concent 33.0 G/DL (32.0-36.0) Red Cell Distribution Width 16.9 % (11.6-14.8) H Platelet Count 242 K/UL (150-450) Mean Platelet Volume 6.6 FL (6.5-10.1) Neutrophils (%) (Auto) % (45.0-75.0) Lymphocytes (%) (Auto) % (20.0-45.0) Monocytes (%) (Auto) % (1.0-10.0) Eosinophils (%) (Auto) % (0.0-3.0) Basophils (%) (Auto) % (0.0-2.0) Differential Total Cells Counted 100 Neutrophils % (Manual) 70 % (45-75) Lymphocytes % (Manual) 15 % (20-45) L Monocytes % (Manual) 11 % (1-10) H Eosinophils % (Manual) 2 % (0-3) Basophils % (Manual) 0 % (0-2) Band Neutrophils 2 % (0-8) Nucleated Red Blood Cells 1 /100 WBC Platelet Estimate Adequate Platelet Morphology Normal Hypochromasia 3+ Anisocytosis 1+ Spherocytes 1+ Sodium Level 139 MMOL/L (136-145) Potassium Level 3.4 MMOL/L (3.5-5.1) L Chloride Level 106 MMOL/L (98-107) Carbon Dioxide Level 27 MMOL/L (21-32) Anion Gap 6 mmol/L (5-15) Blood Urea Nitrogen 62 mg/dL (7-18) H Creatinine 2.0 MG/DL (0.55-1.30) H Estimat Glomerular Filtration Rate 29.1 mL/min (>60) Glucose Level 145 MG/DL (74-106) H Calcium Level 7.9 MG/DL (8.5-10.1) L POC Whole Blood Glucose 146 MG/DL (74-106) H Pending 114 MG/DL (74-106) H Assessment/Plan Assessment/Plan Acute on chronic respiratory acidosis Worsening anemia Acute respiratory failure - s/p trach. Shock LE edema due to severe pulmonary hypertension and right heart strain COPD exacerb with active bronchospasm Lactic acidosis COVID 19 PNA Acute on chr renal failure Chronic systolic/diastolic CHF Pulmonary fibrosis with chronic hypoxia Paroxysmal AFib with RVR Hx Multifocal atrial arrhythmias Pulmonary HTN - severe Hx NSVTach Severe protein/calorie malnutrition Acute myocardial ischemia Resolving transaminitis CRITICAL & GUARDED PRBC transfusion Vent support with on-going weaning efforts following trach Diltiazem dosing advanced; titrate based on BP parameters. May need to consider Cardizem gtts. Steroids per pulmonary Inhaled bronchodilators Hypotonic IVF until free water deficit corrected Full anticoagulation for cardioembolic prophyl - resumption post procedures. Isolation Anti-viral rx per ID Monitor liver fxn Simone Perez MD Jun 01, 2020 22:32
--- NOTE | 2020-06-01 22:53 | General Progress Note ---
Subjective Allergies: Coded Allergies: CIPROFLOXACIN (Verified Allergy, Unknown, 09/27/17) Subjective Above noted d/w staff psychologist s/p trach out of ICU Objective Last 24 Hour Vital Signs Date Time Temp Pulse Resp B/P (MAP) Pulse Ox O2 Delivery O2 Flow Rate FiO2 06/01/20 22:37 122 20 30 06/01/20 20:00 97.5 129 17 100/49 (66) 100 06/01/20 20:00 Mechanical Ventilator Mechanical Ventilator 06/01/20 20:00 128 06/01/20 20:00 40 06/01/20 19:52 132 19 100 Mechanical Ventilator 30 130 18 30 06/01/20 18:42 121 104/60 06/01/20 18:40 121 104/60 (75) 06/01/20 17:22 127 102/45 06/01/20 16:00 123 06/01/20 16:00 99.7 127 17 96/43 (60) 100 06/01/20 16:00 40 06/01/20 16:00 Mechanical Ventilator Mechanical Ventilator 06/01/20 16:00 123 06/01/20 15:40 127 17 30 06/01/20 12:15 125 98/53 06/01/20 12:10 127 101/43 06/01/20 12:00 Mechanical Ventilator Mechanical Ventilator 06/01/20 12:00 127 06/01/20 12:00 40 06/01/20 12:00 97.9 126 18 101/43 (62) 100 06/01/20 11:40 127 17 30 06/01/20 08:00 98.3 128 20 102/49 (66) 100 06/01/20 08:00 126 06/01/20 08:00 Mechanical Ventilator Mechanical Ventilator 06/01/20 08:00 40 06/01/20 07:20 129 18 100 30 130 20 06/01/20 05:57 124 100/52 06/01/20 04:00 98.2 124 20 100/51 (67) 100 06/01/20 04:00 40 06/01/20 04:00 Mechanical Ventilator Mechanical Ventilator 06/01/20 03:57 124 16 30 06/01/20 03:43 121 06/01/20 00:00 40 06/01/20 00:00 Mechanical Ventilator Mechanical Ventilator 06/01/20 00:00 99.0 127 21 99/52 (68) 100 06/01/20 00:00 103 99/52 05/31/20 23:34 124 05/31/20 23:18 130 18 100 Mechanical Ventilator 30 130 18 Intake and Output 05/31/20 06/01/20 19:00 07:00 Intake Total 1650 ml 1863.8 ml Output Total 1050 ml 1000 ml Balance 600 ml 863.8 ml Free Water 500 ml 625 ml IV Total 750 ml 798.8 ml Tube Feeding 400 ml 440 ml Output Urine Total 900 ml 1000 ml Stool Total 150 ml Laboratory Tests 06/01/20 05:30: White Blood Count 5.2, Red Blood Count 2.86L, Hemoglobin 7.8L, Hematocrit 23.7L, Mean Corpuscular Volume 83, Mean Corpuscular Hemoglobin 27.3, Mean Corpuscular Hemoglobin Concent 33.0, Red Cell Distribution Width 16.9H, Platelet Count 242, Mean Platelet Volume 6.6, Neutrophils (%) (Auto) , Lymphocytes (%) (Auto) , Monocytes (%) (Auto) , Eosinophils (%) (Auto) , Basophils (%) (Auto) , Differential Total Cells Counted 100, Neutrophils % (Manual) 70, Lymphocytes % (Manual) 15L, Monocytes % (Manual) 11H, Eosinophils % (Manual) 2, Basophils % (Manual) 0, Band Neutrophils 2, Nucleated Red Blood Cells 1, Platelet Estimate Adequate, Platelet Morphology Normal, Hypochromasia 3+, Anisocytosis 1+, Spherocytes 1+, Sodium Level 139, Potassium Level 3.4L, Chloride Level 106, Carbon Dioxide Level 27, Anion Gap 6, Blood Urea Nitrogen 62H, Creatinine 2.0H, Estimat Glomerular Filtration Rate 29.1, Glucose Level 145H, Calcium Level 7.9L 06/01/20 05:31: POC Whole Blood Glucose 146H 06/01/20 12:33: POC Whole Blood Glucose [Pending] 06/01/20 17:44: POC Whole Blood Glucose 114H Height (Feet): 5 Height (Inches): 3.00 Weight (Pounds): 174 Objective Elderly AA woman exam limited due to COVID isolation comfortable appearing NCAT (+) NG Feeding tube - tolerating well (+) trach abd non distended Assessment/Plan Status: stable Assessment/Plan: Assessment - Transaminitis, likely due to COVID-19 --Improving - Gallstones - Resp failure - s/p trach - Dysphagia - NGT - CHF - Pulm HTN - Arrhythmia - Leukocytosis - Renal failure Recommendations - monitor LFT - Continue TF - PEG at later date - Abx - ICU care - trach noted - will consider repeat abd ultrasound Justine Torres MD Jun 01, 2020 22:53
--- NOTE | 2020-06-01 23:00 | NUR ---
NURSE NOTES: Temperature went down to 99 deg. Continue cooling measures interventions
[2020-06-02] VITALS (8 sets, daily range): BP systolic 97–117; BP diastolic 52–57
--- NOTE | 2020-06-02 00:17 | NUR ---
NURSE NOTES: Placed a call and left a Voicemail to Dr Perez regarding patient's blood transfusion order. Awaiting for response
--- NOTE | 2020-06-02 01:15 | NUR ---
NURSE NOTES: Blood transfusion of PRBC 1 unit started. VS are WNL. PT tolerating well. Reassess in 15 mins.
--- NOTE | 2020-06-02 01:30 | NUR ---
NURSE NOTES: Reassessment done. VS note. Pt tolerating well. no ASE noted to patient. Continue to monitor the patient. Pt went back to sleep.
--- NOTE | 2020-06-02 02:00 | NUR ---
NURSE NOTES: Patient tolerating blood transfusion without any reactions. Pt was given bed bath. Changed gown and linen. Pt tolerated well. Continue to monitor the patient.
--- NOTE | 2020-06-02 04:20 | NUR ---
NURSE NOTES: Blood transfusion done. NO ASE noted. VS wnl. BP is 100/54 and HR 111. Patient woke up during after care of blood transfusion and went back to sleep afterwards. Placed a call to Dr Perez and left a voicemail regarding patient's VS. Awaiting for response.
[2020-06-02] MEDS: NovoLOG Insulin Flexpen SUBQ SCH ×4 (06:00→17:06)
[2020-06-02] MEDS: dilTIAZem HCl 60mg tab NG SCH ×4 (06:00→17:51)
--- NOTE | 2020-06-02 06:10 | NUR ---
NURSE NOTES: Pt asleep in bed. no respiratory distress noted. fluctuating high to Low BP normal limits. Awaiting for DR Perez's response. Pt asymptomatic. Contique to monitor the patient
[2020-06-02 06:35] LABS: BASOPHILS % (AUTO) 1.5 % (0.0-2.0); EOSINOPHILS % (AUTO) 2.2 % (0.0-3.0); HEMATOCRIT 27.2 % (37.0-47.0); HEMOGLOBIN 9.2 G/DL (12.0-16.0); LYMPHOCYTES % (AUTO) 18.8 % (20.0-45.0); MEAN CORPUSCULAR VOLUME 82 FL (80-99); MONOCYTES % (AUTO) 12.1 % (1.0-10.0); NEUTROPHILS % (AUTO) 65.4 % (45.0-75.0); PLATELET COUNT 250 K/UL (150-450); RED BLOOD COUNT 3.32 M/UL (4.20-5.40); WHITE BLOOD COUNT 7.5 K/UL (4.8-10.8)
[2020-06-02 06:56] LABS: CALCIUM 7.3 MG/DL (8.5-10.1); CREATININE 1.8 MG/DL (0.55-1.30); POTASSIUM 3.8 MMOL/L (3.5-5.1)
[2020-06-02] MEDS: Ipratropium Bromide Inhaler INH SCH ×4 (07:00→18:27)
--- NOTE | 2020-06-02 07:15 | NUR ---
NURSE HAND-OFF REPORT: Important Events on Shift: Blood transfusion of PRBC 1 unit Patient Status: fluctuating high and low BP Diet: Vital af 1.2 at 40cc/hr Pending Orders: n Pending Results/Labs:n Pending MD notification:n Latest Vital Signs: Temperature 98.4 , Pulse 111 , B/P 97 /53 , Respiratory Rate 17 , O2 SAT 100 , Mechanical Ventilator, O2 Flow Rate 4.0 . Vital Sign Comment: n EKG Rhythm: Sinus Tachycardia Rhythm change?: N MD Notified?: Y -Dr. Chris MCCRACKEN Response: Order Received& Read Back Latest Lechuga Fall Score: 50 Fall Risk: High Risk Safety Measures: Call light Within Reach, Bed Alarm Zone 1, Side Rails Side Rails x3, Bed position Low and Locked. Fall Precautions: Yellow Socks Yellow Gown Door Sign Patient Fall Education Report given to George Garcia RN. Endorsed to FF up with Dr Perez regardign patient's BP after 1 U of PRBC transfusion
--- NOTE | 2020-06-02 08:00 | Pulmonology Progress Note ---
Subjective ROS Limited/Unobtainable: Yes Constitutional: Reports: other - dosen,t feel good Musculoskeletal: Denies: pain Allergies: Coded Allergies: CIPROFLOXACIN (Verified Allergy, Unknown, 09/27/17) All Systems: reviewed and negative except above Subjective on vent- underwent trach and awaiting gt pulse rate still elevated comfortable sedated reduced LOC Objective Last 24 Hour Vital Signs Date Time Temp Pulse Resp B/P (MAP) Pulse Ox O2 Delivery O2 Flow Rate FiO2 06/02/20 06:00 111 97/53 06/02/20 04:00 40 06/02/20 04:00 98.4 117 17 116/53 (74) 100 06/02/20 04:00 Mechanical Ventilator Mechanical Ventilator 06/02/20 03:27 112 06/02/20 03:16 128 18 30 06/02/20 00:00 40 06/02/20 00:00 Mechanical Ventilator Mechanical Ventilator 06/02/20 00:00 98.1 119 17 117/55 (75) 100 06/01/20 23:56 119 95/47 06/01/20 23:36 115 06/01/20 22:47 99.0 06/01/20 22:37 122 20 30 06/01/20 20:00 97.5 129 17 100/49 (66) 100 06/01/20 20:00 Mechanical Ventilator Mechanical Ventilator 06/01/20 20:00 128 06/01/20 20:00 40 06/01/20 19:52 132 19 100 Mechanical Ventilator 30 130 18 30 06/01/20 18:42 121 104/60 06/01/20 18:40 121 104/60 (75) 06/01/20 17:22 127 102/45 06/01/20 16:00 123 06/01/20 16:00 99.7 127 17 96/43 (60) 100 06/01/20 16:00 40 06/01/20 16:00 Mechanical Ventilator Mechanical Ventilator 06/01/20 16:00 123 06/01/20 15:40 127 17 30 06/01/20 12:15 125 98/53 06/01/20 12:10 127 101/43 06/01/20 12:00 Mechanical Ventilator Mechanical Ventilator 06/01/20 12:00 127 06/01/20 12:00 40 06/01/20 12:00 97.9 126 18 101/43 (62) 100 06/01/20 11:40 127 17 30 06/01/20 08:00 98.3 128 20 102/49 (66) 100 06/01/20 08:00 126 06/01/20 08:00 Mechanical Ventilator Mechanical Ventilator 06/01/20 08:00 40 Intake and Output 06/01/20 06/02/20 19:00 07:00 Intake Total 2835 ml Output Total 800 ml Balance 2035 ml Free Water 1000 ml IV Total 825 ml Tube Feeding 760 ml Blood Product 250 ml Output Urine Total 800 ml Objective deferred due to COVID Laboratory Tests 06/01/20 12:33: POC Whole Blood Glucose [Pending] 06/01/20 17:44: POC Whole Blood Glucose 114H 06/01/20 23:44: POC Whole Blood Glucose 140H 06/02/20 05:31: POC Whole Blood Glucose 120H 06/02/20 05:48: White Blood Count 7.5, Red Blood Count 3.32L, Hemoglobin 9.2L, Hematocrit 27.2L, Mean Corpuscular Volume 82, Mean Corpuscular Hemoglobin 27.6, Mean Corpuscular Hemoglobin Concent 33.8, Red Cell Distribution Width 16.0H, Platelet Count 250, Mean Platelet Volume 7.0, Neutrophils (%) (Auto) 65.4, Lymphocytes (%) (Auto) 18.8L, Monocytes (%) (Auto) 12.1H, Eosinophils (%) (Auto) 2.2, Basophils (%) (Auto) 1.5, Sodium Level 138, Potassium Level 3.8, Chloride Level 104, Carbon Dioxide Level 28, Anion Gap 6, Blood Urea Nitrogen 58H, Creatinine 1.8H, Estimat Glomerular Filtration Rate 32.8, Glucose Level 128H, Calcium Level 7.3L Current Medications Medications (Trade) Dose Ordered Sig/Ghislaine Route PRN Reason Start Time Stop Time Status Last Admin Dose Admin Acetaminophen (Tylenol) 500 mg Q4H PRN ORAL Mild Pain (Pain Scale 1-3) 05/11/20 20:00 06/02/20 19:59 05/27/20 09:50 Acetaminophen (Tylenol) 650 mg Q4H PRN NG Temp >100.5 05/25/20 16:15 06/24/20 16:14 06/01/20 22:17 Albuterol Sulfate (Proventil MDI) 2 puff Q4H PRN INH Shortness of Breath 05/11/20 20:00 08/01/20 11:59 05/13/20 10:30 Dextrose 1,000 ml @ 75 mls/hr [id number] IV 05/29/20 07:30 06/28/20 07:29 06/02/20 06:02 Dextrose (Dextrose 50%) 25 ml Q30M PRN IV Hypoglycemia 05/22/20 18:30 08/20/20 18:29 Dextrose (Dextrose 50%) 50 ml Q30M PRN IV Hypoglycemia 05/22/20 18:30 08/20/20 18:29 Diltiazem HCl (Cardizem Tab) 60 mg EVERY 6 HOURS NG 06/01/20 12:00 06/30/20 17:59 06/01/20 18:42 Insulin Aspart (NovoLOG) Q6HR SUBQ 05/23/20 00:00 08/20/20 20:59 06/02/20 00:00 Ipratropium [place] (Atrovent Inh) 1 puffs QIDRT INH 06/01/20 07:00 06/26/20 09:59 06/01/20 19:52 Levofloxacin (Levaquin) 250 mg Q48H NG 05/31/20 09:00 06/07/20 08:59 05/31/20 08:12 Loperamide HCl (Imodium) 2 mg Q6H PRN NG Diarrhea 05/26/20 17:45 06/25/20 17:44 05/27/20 10:52 Pantoprazole (Protonix) 40 mg DAILY IVP 05/28/20 09:00 06/27/20 08:59 06/01/20 09:38 Salmeterol Xinafoate/ Fluticasone (Advair 100/50 Diskus) 1 puffs BIDRT INH 05/11/20 22:00 08/09/20 21:59 05/16/20 09:02 Assessment/Plan Assessment/Plan Impression: COVID-19 Chronic obstructive pulmonary disease/Asthma Community acquired pneumonia Atrial fibrillation with RVR Elevated troponin Congestive heart Failure sinus tachycardia Hypoxemia transaminitis with gallstones acute on chronic renal failure acute respiratory failure hypotension tachycardia transaminitis MODS anemia Plan ID noted gi for GT monitor vitals Vent support/and trach care feeds per dietary and monitor residuals; IV therapy noted Bronchodilator therapy Eliquis on hold- need to resume GT needed Monitor labs/ renal follow up - renal function still reduced- Covid 19 Isolation- per ID ? dc nutrition and NG feeds reviewed care and optimize position change and monitor skin surgical follow up noted monitor protein levels and adjust will need placement impression, plan, and exam edited and reviewed in detail care discussed with Aaron Bales MD Jun 02, 2020 08:00
[2020-06-02] MEDS: Pantoprazole Inj IVP SCH (08:41)
--- NOTE | 2020-06-02 09:33 | General Progress Note ---
Subjective ROS Limited/Unobtainable: No Constitutional: Reports: malaise, weakness HEENT: Reports: no symptoms Cardiovascular: Reports: no symptoms Respiratory: Reports: shortness of breath, sputum Gastrointestinal/Abdominal: Reports: difficulty swallowing Genitourinary: Reports: no symptoms Neurologic/Psychiatric: Reports: no symptoms Endocrine: Reports: no symptoms Hematologic/Lymphatic: Reports: anemia Allergies: Coded Allergies: CIPROFLOXACIN (Verified Allergy, Unknown, 09/27/17) All Systems: reviewed and negative except above Subjective no events. stable on the vent. tolerating feeds. no vomiting. no distress. opens eyes. noted to rapid afib last night. HR better controlled this am. (low 100s) labs reviewed. Cr trending down. h/h improved. Objective Last 24 Hour Vital Signs Date Time Temp Pulse Resp B/P (MAP) Pulse Ox O2 Delivery O2 Flow Rate FiO2 06/02/20 06:00 111 97/53 06/02/20 04:00 40 06/02/20 04:00 98.4 117 17 116/53 (74) 100 06/02/20 04:00 Mechanical Ventilator Mechanical Ventilator 06/02/20 03:27 112 06/02/20 03:16 128 18 30 06/02/20 00:00 40 06/02/20 00:00 Mechanical Ventilator Mechanical Ventilator 06/02/20 00:00 98.1 119 17 117/55 (75) 100 06/01/20 23:56 119 95/47 06/01/20 23:36 115 06/01/20 22:47 99.0 06/01/20 22:37 122 20 30 06/01/20 20:00 97.5 129 17 100/49 (66) 100 06/01/20 20:00 Mechanical Ventilator Mechanical Ventilator 06/01/20 20:00 128 06/01/20 20:00 40 06/01/20 19:52 132 19 100 Mechanical Ventilator 30 130 18 30 06/01/20 18:42 121 104/60 06/01/20 18:40 121 104/60 (75) 06/01/20 17:22 127 102/45 06/01/20 16:00 123 06/01/20 16:00 99.7 127 17 96/43 (60) 100 06/01/20 16:00 40 06/01/20 16:00 Mechanical Ventilator Mechanical Ventilator 06/01/20 16:00 123 10/5/20 15:40 127 17 30 06/01/20 12:15 125 98/53 06/01/20 12:10 127 101/43 06/01/20 12:00 Mechanical Ventilator Mechanical Ventilator 06/01/20 12:00 127 06/01/20 12:00 40 06/01/20 12:00 97.9 126 18 101/43 (62) 100 06/01/20 11:40 127 17 30 Intake and Output 06/01/20 06/02/20 19:00 07:00 Intake Total 2835 ml Output Total 800 ml Balance 2035 ml Free Water 1000 ml IV Total 825 ml Tube Feeding 760 ml Blood Product 250 ml Output Urine Total 800 ml Laboratory Tests 06/01/20 12:33: POC Whole Blood Glucose [Pending] 06/01/20 17:44: POC Whole Blood Glucose 114H 06/01/20 23:44: POC Whole Blood Glucose 140H 06/02/20 05:31: POC Whole Blood Glucose 120H 06/02/20 05:48: White Blood Count 7.5, Red Blood Count 3.32L, Hemoglobin 9.2L, Hematocrit 27.2L, Mean Corpuscular Volume 82, Mean Corpuscular Hemoglobin 27.6, Mean Corpuscular Hemoglobin Concent 33.8, Red Cell Distribution Width 16.0H, Platelet Count 250, Mean Platelet Volume 7.0, Neutrophils (%) (Auto) 65.4, Lymphocytes (%) (Auto) 18.8L, Monocytes (%) (Auto) 12.1H, Eosinophils (%) (Auto) 2.2, Basophils (%) (Auto) 1.5, Sodium Level 138, Potassium Level 3.8, Chloride Level 104, Carbon Dioxide Level 28, Anion Gap 6, Blood Urea Nitrogen 58H, Creatinine 1.8H, Estimat Glomerular Filtration Rate 32.8, Glucose Level 128H, Calcium Level 7.3L Height (Feet): 5 Height (Inches): 3.00 Weight (Pounds): 174 Objective General Appearance: WD/WN, no apparent distress, alert. orally intubated EENT: PERRL/EOMI Neck: non-tender, normal alignment, supple Cardiovascular: normal rate, regular rhythm Respiratory/Chest: chest wall non-tender, lungs clear, normal breath sounds, no respiratory distress, no accessory muscle use Abdomen: normal bowel sounds, non tender, soft, no organomegaly Edema: no edema noted Arm (L), no edema noted Arm (R) Neurologic: protector plate attacher II-XII grossly normal, alert, oriented x 3, responsive Skin: normal pigmentation Lymphatic: normal anterior cervical (L), normal anterior cervical (R) Assessment/Plan Problem List: (1) Pulmonary fibrosis ICD Codes: J84.10 - Pulmonary fibrosis, unspecified SNOMED: 33814646 (2) History of asthma ICD Codes: Z87.09 - Personal history of other diseases of the respiratory system SNOMED: 808067600 (3) Asthma ICD Codes: J45.909 - Unspecified asthma, uncomplicated SNOMED: 228081935 (4) NSTEMI (non-ST elevated myocardial infarction) ICD Codes: I21.4 - Non-ST elevation (NSTEMI) myocardial infarction SNOMED: 651248358 (5) Elevated troponin ICD Codes: R79.89 - Other specified abnormal findings of blood chemistry SNOMED: 280620359, 702903667, 259673970 (6) COPD (chronic obstructive pulmonary disease) ICD Codes: J44.9 - Chronic obstructive pulmonary disease, unspecified SNOMED: 90386378 (7) Atrial fibrillation with RVR ICD Codes: I48.91 - Unspecified atrial fibrillation SNOMED: 256620242940521 (8) Community acquired pneumonia ICD Codes: J18.9 - Pneumonia, unspecified organism SNOMED: 079499706 Status: stable Assessment/Plan: po abx per ID water flushes via ngt monitor renal fxn/lytes ngt feeds gt next week tylenol for fever wean vent as able BP rx keep dry cardizem for rate control dvt/stress ulcer prophylaxis skin care imodium as needed trach care eliquis and aspirin on hold for procedures turn q2 critical and guarded d/w Dtr agrees to GT placement Bradford Linn MD Jun 02, 2020 09:33
--- NOTE | 2020-06-02 09:56 | NUR ---
RADIOLOGY DEPT., CHEST X-RAY DONE.-P.DYE
[2020-06-02] MEDS: Wixela 100/50 Inhaler - 60 dose INH SCH ×2 (10:00→22:00)
--- NOTE | 2020-06-02 10:55 | Infectious Diseases Prog Note ---
Assessment/Plan Assessment/Plan antibiotics : levoquin A 1. COVID 19 pneumonia s/p ivermectin 9.7.20 2. renal failure 3. increased LFT 4. COPD 5. CHF 6. asthma 7. respiratory failure s/p tracheostomy 8. leucocytosis resolved 9. pseudomonas pneumonia 10. fungal UTI s/p rx P 1. continue levoquin 5 more days 2. will follow up cultures Subjective ROS Limited/Unobtainable: Yes Allergies: Coded Allergies: CIPROFLOXACIN (Verified Allergy, Unknown, 09/27/17) Objective Last 24 Hour Vital Signs Date Time Temp Pulse Resp B/P (MAP) Pulse Ox O2 Delivery O2 Flow Rate FiO2 06/02/20 08:00 98.1 103 20 103/52 (69) 100 06/02/20 08:00 Mechanical Ventilator Mechanical Ventilator 06/02/20 08:00 40 06/02/20 07:46 112 17 30 06/02/20 06:00 111 97/53 06/02/20 04:00 40 06/02/20 04:00 98.4 117 17 116/53 (74) 100 06/02/20 04:00 Mechanical Ventilator Mechanical Ventilator 06/02/20 03:27 112 06/02/20 03:16 128 18 30 06/02/20 00:00 40 06/02/20 00:00 Mechanical Ventilator Mechanical Ventilator 06/02/20 00:00 98.1 119 17 117/55 (75) 100 06/01/20 23:56 119 95/47 06/01/20 23:36 115 06/01/20 22:47 99.0 06/01/20 22:37 122 20 30 06/01/20 20:00 97.5 129 17 100/49 (66) 100 06/01/20 20:00 Mechanical Ventilator Mechanical Ventilator 06/01/20 20:00 128 06/01/20 20:00 40 06/01/20 19:52 132 19 100 Mechanical Ventilator 30 130 18 30 06/01/20 18:42 121 104/60 06/01/20 18:40 121 104/60 (75) 06/01/20 17:22 127 102/45 06/01/20 16:00 123 06/01/20 16:00 99.7 127 17 96/43 (60) 100 06/01/20 16:00 40 06/01/20 16:00 Mechanical Ventilator Mechanical Ventilator 06/01/20 16:00 123 06/01/20 15:40 127 17 30 06/01/20 12:15 125 98/53 06/01/20 12:10 127 101/43 06/01/20 12:00 Mechanical Ventilator Mechanical Ventilator 06/01/20 12:00 127 06/01/20 12:00 40 06/01/20 12:00 97.9 126 18 101/43 (62) 100 06/01/20 11:40 127 17 30 Height (Feet): 5 Height (Inches): 3.00 Weight (Pounds): 174 HEENT: status post trach Laboratory Tests Test 06/01/20 12:33 06/01/20 17:44 06/01/20 23:44 06/02/20 05:31 POC Whole Blood Glucose Pending 114 MG/DL (74-106) H 140 MG/DL (74-106) H 120 MG/DL (74-106) H Test 06/02/20 05:48 White Blood Count 7.5 K/UL (4.8-10.8) Red Blood Count 3.32 M/UL (4.20-5.40) L Hemoglobin 9.2 G/DL (12.0-16.0) L Hematocrit 27.2 % (37.0-47.0) L Mean Corpuscular Volume 82 FL (80-99) Mean Corpuscular Hemoglobin 27.6 PG (27.0-31.0) Mean Corpuscular Hemoglobin Concent 33.8 G/DL (32.0-36.0) Red Cell Distribution Width 16.0 % (11.6-14.8) H Platelet Count 250 K/UL (150-450) Mean Platelet Volume 7.0 FL (6.5-10.1) Neutrophils (%) (Auto) 65.4 % (45.0-75.0) Lymphocytes (%) (Auto) 18.8 % (20.0-45.0) L Monocytes (%) (Auto) 12.1 % (1.0-10.0) H Eosinophils (%) (Auto) 2.2 % (0.0-3.0) Basophils (%) (Auto) 1.5 % (0.0-2.0) Sodium Level 138 MMOL/L (136-145) Potassium Level 3.8 MMOL/L (3.5-5.1) Chloride Level 104 MMOL/L (98-107) Carbon Dioxide Level 28 MMOL/L (21-32) Anion Gap 6 mmol/L (5-15) Blood Urea Nitrogen 58 mg/dL (7-18) H Creatinine 1.8 MG/DL (0.55-1.30) H Estimat Glomerular Filtration Rate 32.8 mL/min (>60) Glucose Level 128 MG/DL (74-106) H Calcium Level 7.3 MG/DL (8.5-10.1) L Current Medications Medications (Trade) Dose Ordered Sig/Ghislaine Route PRN Reason Start Time Stop Time Status Last Admin Dose Admin Acetaminophen (Tylenol) 500 mg Q4H PRN ORAL Mild Pain (Pain Scale 1-3) 05/11/20 20:00 06/02/20 19:59 05/27/20 09:50 Acetaminophen (Tylenol) 650 mg Q4H PRN NG Temp >100.5 05/25/20 16:15 06/24/20 16:14 06/01/20 22:17 Albuterol Sulfate (Proventil MDI) 2 puff Q4H PRN INH Shortness of Breath 05/11/20 20:00 08/01/20 11:59 05/13/20 10:30 Dextrose 1,000 ml @ 75 mls/hr [id number] IV 05/29/20 07:30 06/28/20 07:29 06/02/20 06:02 Dextrose (Dextrose 50%) 25 ml Q30M PRN IV Hypoglycemia 05/22/20 18:30 08/20/20 18:29 Dextrose (Dextrose 50%) 50 ml Q30M PRN IV Hypoglycemia 05/22/20 18:30 08/20/20 18:29 Diltiazem HCl (Cardizem Tab) 60 mg EVERY 6 HOURS NG 06/01/20 12:00 06/30/20 17:59 06/01/20 18:42 Insulin Aspart (NovoLOG) Q6HR SUBQ 05/23/20 00:00 08/20/20 20:59 06/02/20 00:00 Ipratropium [place] (Atrovent Inh) 1 puffs QIDRT INH 06/01/20 07:00 06/26/20 09:59 06/01/20 19:52 Levofloxacin (Levaquin) 250 mg Q48H NG 05/31/20 09:00 06/07/20 08:59 06/02/20 08:41 Loperamide HCl (Imodium) 2 mg Q6H PRN NG Diarrhea 05/26/20 17:45 06/25/20 17:44 05/27/20 10:52 Pantoprazole (Protonix) 40 mg DAILY IVP 05/28/20 09:00 06/27/20 08:59 06/02/20 08:41 Salmeterol Xinafoate/ Fluticasone (Advair 100/50 Diskus) 1 puffs BIDRT INH 05/11/20 22:00 08/09/20 21:59 05/16/20 09:02 Camilo Cameron MD Jun 02, 2020 10:55
--- NOTE | 2020-06-02 11:08 | NUR ---
NURSE NOTES: Called Dr. Perez's office and spoke with medical records secretary, informed medical records secretary this nurse was instructed to call Dr. Perez regarding blood pressure update per night nurse report. Gave these assessments to medical records secretary: VS BP 97/57, HR 114 bpm sinus tachycardia, temperature 98.1 F axillary. [place] informed Dr. Perez of new assessments and per medical records secretary, Dr. Perez acknowledged and gave no new orders at this time. Will continue to monitor patient.
--- NOTE | 2020-06-02 12:14 | NUR ---
RD ASSESSMENT & RECOMMENDATIONS SEE CARE ACTIVITY FOR COMPLETE ASSESSMENT DAILY ESTIMATED NEEDS: Needs based on Critical Care, ARF/ 56kg abw 22-28 kcals/kg 8510-3649 total kcals 1-2 g protein/kg 56-112 g total protein 25-30 mL/kg 5532-9177 total fluid mLs NUTRITION DIAGNOSIS: * Altered nutrition related lab values r/t clinical status as evidenced by elev BUN(58 trend down), creat(2.0->4.0->1.8), low K (3.2-> wnl), critical ABG (low pH,elev CO2)-> now improved. * Swallowing difficulty R/T respiratory status as evidenced by s/p oral intubation, now s/p trach placement (05/29), remains on NGT feeds. CURRENT TF:VITAL AF 1.2 @ 40ml/hr x 24hrs ENTERAL NUTRITION RECOMMENDATIONS: Vital AF 1.2 @ 45ml/hr x 24 hrs to provide 1080ml, 1296kcal, 81g prot, 876ml free water * Okay to continue elemental TF formula of Vital while + diarrhea * Increase goal rate to 45ml/hr x 24 hrs to meet 100% est kcal/prot needs * HOB over 30 degrees/ water flush per MD ADDITIONAL RECOMMENDATIONS: 1) Calibrated bedscale wt: daily wts fluctuating 80's-> 70's-> 60's kg 2) Monitor renal fxn and lytes, need to resume renal TF -> Creat 2.0-> 4.0-> 1.8: improving, lytes wnl 3) Rec niss - now added, improved glycemic control 4) Probiotics for diarrhea . .
--- NOTE | 2020-06-02 12:46 | NUR ---
CASE MANAGEMENT: REVIEW SI: COVID-19 . PNA . T 98.5 HR 114 RR 20 BP 97/53 SAT 100% MECH VENT FIO2 40 H/H 9.2/27.2 BUN 58 CR 1.8 GLUCOSE 131 IS: LEVAQUIN GT Q48HR ADVAIR INH BID PROTONIX IV QD D5W IVF @ 75ML/HR CARDIZEM Q6HR GT TYLENOL NGT Q4HR PRN STEP DOWN UNIT STATUS DCP: PATIENT IS FROM HOME
--- NOTE | 2020-06-02 13:33 | Nephrology Progress Note ---
Assessment/Plan Plan Severe Prerenal Azotemia due to hypoperfusion. GFR seems to be slightly improving. MOF due to Covid 19 MOF. Subjective Subjective Confused Objective Objective Last 24 Hour Vital Signs Date Time Temp Pulse Resp B/P (MAP) Pulse Ox O2 Delivery O2 Flow Rate FiO2 06/02/20 12:30 117 107/57 06/02/20 12:00 98.5 114 20 107/57 (74) 100 06/02/20 12:00 40 06/02/20 12:00 Mechanical Ventilator Mechanical Ventilator 06/02/20 12:00 116 06/02/20 08:00 98.1 103 20 103/52 (69) 100 06/02/20 08:00 104 06/02/20 08:00 Mechanical Ventilator Mechanical Ventilator 06/02/20 08:00 40 06/02/20 07:46 112 17 30 06/02/20 06:00 111 97/53 06/02/20 04:00 40 06/02/20 04:00 98.4 117 17 116/53 (74) 100 06/02/20 04:00 Mechanical Ventilator Mechanical Ventilator 06/02/20 03:27 112 06/02/20 03:16 128 18 30 06/02/20 00:00 40 06/02/20 00:00 Mechanical Ventilator Mechanical Ventilator 06/02/20 00:00 98.1 119 17 117/55 (75) 100 06/01/20 23:56 119 95/47 06/01/20 23:36 115 06/01/20 22:47 99.0 06/01/20 22:37 122 20 30 06/01/20 20:00 97.5 129 17 100/49 (66) 100 06/01/20 20:00 Mechanical Ventilator Mechanical Ventilator 06/01/20 20:00 128 06/01/20 20:00 40 06/01/20 19:52 132 19 100 Mechanical Ventilator 30 130 18 30 06/01/20 18:42 121 104/60 06/01/20 18:40 121 104/60 (75) 06/01/20 17:22 127 102/45 06/01/20 16:00 123 06/01/20 16:00 99.7 127 17 96/43 (60) 100 06/01/20 16:00 40 06/01/20 16:00 Mechanical Ventilator Mechanical Ventilator 06/01/20 16:00 123 06/01/20 15:40 127 17 30 Intake and Output 06/01/20 06/02/20 19:00 07:00 Intake Total 2835 ml Output Total 800 ml Balance 2035 ml Free Water 1000 ml IV Total 825 ml Tube Feeding 760 ml Blood Product 250 ml Output Urine Total 800 ml Laboratory Tests 06/01/20 17:44: POC Whole Blood Glucose 114H 06/01/20 23:44: POC Whole Blood Glucose 140H 06/02/20 05:31: POC Whole Blood Glucose 120H 06/02/20 05:48: White Blood Count 7.5, Red Blood Count 3.32L, Hemoglobin 9.2L, Hematocrit 27.2L, Mean Corpuscular Volume 82, Mean Corpuscular Hemoglobin 27.6, Mean Corpuscular Hemoglobin Concent 33.8, Red Cell Distribution Width 16.0H, Platelet Count 250, Mean Platelet Volume 7.0, Neutrophils (%) (Auto) 65.4, Lymphocytes (%) (Auto) 18.8L, Monocytes (%) (Auto) 12.1H, Eosinophils (%) (Auto) 2.2, Basophils (%) (Auto) 1.5, Sodium Level 138, Potassium Level 3.8, Chloride Level 104, Carbon Dioxide Level 28, Anion Gap 6, Blood Urea Nitrogen 58H, Creatinine 1.8H, Estimat Glomerular Filtration Rate 32.8, Glucose Level 128H, Calcium Level 7.3L 06/02/20 11:55: POC Whole Blood Glucose 131H Height (Feet): 5 Height (Inches): 3.00 Weight (Pounds): 174 Objective CV Tach +Irr Trach OK Lungs B Ronchi Abd SNT. BS + E +3 edema Ruth Coyne MD Jun 02, 2020 13:33
--- NOTE | 2020-06-02 13:37 | Diagnostic Imaging Report ---
Indication: Shortness of breath Technique: One view of the chest Comparison: 05/24/2020 Findings: Endotracheal tube has been replaced with a tracheostomy. Stable satisfactory orogastric tube. Bilateral left. The right infiltrates persist, unchanged. The heart size is borderline enlarged. There is a left pleural effusion Impression: Interim replacement of endotracheal tube with a tracheostomy Otherwise unchanged since prior exam of 05/24/2020
--- NOTE | 2020-06-02 14:19 | Surgery Progress Note ---
Surgery Progress Note Subjective Procedure Performed trach Additional Comments stable labs reviewed comfortable no n/v Objective Last 24 Hour Vital Signs Date Time Temp Pulse Resp B/P (MAP) Pulse Ox O2 Delivery O2 Flow Rate FiO2 06/02/20 12:30 117 107/57 06/02/20 12:00 98.5 114 20 107/57 (74) 100 06/02/20 12:00 40 06/02/20 12:00 Mechanical Ventilator Mechanical Ventilator 06/02/20 12:00 116 06/02/20 11:07 118 16 30 06/02/20 08:00 98.1 103 20 103/52 (69) 100 06/02/20 08:00 104 06/02/20 08:00 Mechanical Ventilator Mechanical Ventilator 06/02/20 08:00 40 06/02/20 07:46 112 17 30 06/02/20 06:00 111 97/53 06/02/20 04:00 40 06/02/20 04:00 98.4 117 17 116/53 (74) 100 06/02/20 04:00 Mechanical Ventilator Mechanical Ventilator 06/02/20 03:27 112 06/02/20 03:16 128 18 30 06/02/20 00:00 40 06/02/20 00:00 Mechanical Ventilator Mechanical Ventilator 06/02/20 00:00 98.1 119 17 117/55 (75) 100 06/01/20 23:56 119 95/47 06/01/20 23:36 115 06/01/20 22:47 99.0 06/01/20 22:37 122 20 30 06/01/20 20:00 97.5 129 17 100/49 (66) 100 06/01/20 20:00 Mechanical Ventilator Mechanical Ventilator 06/01/20 20:00 128 06/01/20 20:00 40 06/01/20 19:52 132 19 100 Mechanical Ventilator 30 130 18 30 06/01/20 18:42 121 104/60 06/01/20 18:40 121 104/60 (75) 06/01/20 17:22 127 102/45 06/01/20 16:00 123 06/01/20 16:00 99.7 127 17 96/43 (60) 100 06/01/20 16:00 40 06/01/20 16:00 Mechanical Ventilator Mechanical Ventilator 06/01/20 16:00 123 06/01/20 15:40 127 17 30 I&O Intake and Output 06/01/20 06/02/20 19:00 07:00 Intake Total 2835 ml Output Total 800 ml Balance 2035 ml Free Water 1000 ml IV Total 825 ml Tube Feeding 760 ml Blood Product 250 ml Output Urine Total 800 ml Dressing: other Wound: other Cardiovascular: RSR Respiratory: decreased breath sounds Abdomen: soft, non-tender, present bowel sounds Extremities: no tenderness, no cyanosis Laboratory Tests Test 06/01/20 17:44 06/01/20 23:44 06/02/20 05:31 06/02/20 05:48 POC Whole Blood Glucose 114 MG/DL (74-106) H 140 MG/DL (74-106) H 120 MG/DL (74-106) H White Blood Count 7.5 K/UL (4.8-10.8) Red Blood Count 3.32 M/UL (4.20-5.40) L Hemoglobin 9.2 G/DL (12.0-16.0) L Hematocrit 27.2 % (37.0-47.0) L Mean Corpuscular Volume 82 FL (80-99) Mean Corpuscular Hemoglobin 27.6 PG (27.0-31.0) Mean Corpuscular Hemoglobin Concent 33.8 G/DL (32.0-36.0) Red Cell Distribution Width 16.0 % (11.6-14.8) H Platelet Count 250 K/UL (150-450) Mean Platelet Volume 7.0 FL (6.5-10.1) Neutrophils (%) (Auto) 65.4 % (45.0-75.0) Lymphocytes (%) (Auto) 18.8 % (20.0-45.0) L Monocytes (%) (Auto) 12.1 % (1.0-10.0) H Eosinophils (%) (Auto) 2.2 % (0.0-3.0) Basophils (%) (Auto) 1.5 % (0.0-2.0) Sodium Level 138 MMOL/L (136-145) Potassium Level 3.8 MMOL/L (3.5-5.1) Chloride Level 104 MMOL/L (98-107) Carbon Dioxide Level 28 MMOL/L (21-32) Anion Gap 6 mmol/L (5-15) Blood Urea Nitrogen 58 mg/dL (7-18) H Creatinine 1.8 MG/DL (0.55-1.30) H Estimat Glomerular Filtration Rate 32.8 mL/min (>60) Glucose Level 128 MG/DL (74-106) H Calcium Level 7.3 MG/DL (8.5-10.1) L Test 06/02/20 11:55 POC Whole Blood Glucose 131 MG/DL (74-106) H Plan Problems: (1) Elevated troponin (2) Atrial fibrillation with RVR (3) COVID-19 Assessment & Plan: ++ as per pulm and ID trach DAILY ESTIMATED NEEDS: Needs based on Critical Care, ARF/ 56kg abw 22-28 kcals/kg 2210-6110 total kcals 0.8-1.5 (increase w/ renal improvement) g protein/kg 45-84 g total protein 25-30 mL/kg 8461-2000 total fluid mLs NUTRITION DIAGNOSIS: * Altered nutrition related lab values r/t clinical status as evidenced by elev BUN(82), creat(3.8) trending up, critical ABG (low pH, elev CO2)-> now improved. * Swallowing difficulty R/T respiratory status as evidenced by s/p oral intubation, on OGT feeds. 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: AIR BOATSWAIN eval post extubation ENTERAL NUTRITION RECOMMENDATIONS: Nepro @ 35ml/hr x 24 hrs to provide 840ml, 1512kcal, 68g prot, 610ml free water * W/ worsening renal fxn, rec to continue Nepro * As tolerated, increase goal rate to 35ml/hr x 24 hrs to meet 100% est kcal/prot needs ADDITIONAL RECOMMENDATIONS: 1) Calibrated bedscale wt 2) Monitor renal fxn and lytes, need to continue Nepro Creat trending up 3) Rec niss w/ solumedrol (4) Community acquired pneumonia (5) COPD (chronic obstructive pulmonary disease) (6) Pulmonary fibrosis (7) Asthma (8) History of asthma (9) NSTEMI (non-ST elevated myocardial infarction) (10) Moderate to severe pulmonary hypertension (11) Asthma exacerbation (12) Abnormal LFTs Assessment & Plan: afebrile, HD stable labs noted lft's elevated US reviewed exam benign gb likely reactive from underlying pathology unlikely cholecystitis clinically fluid overload trend labs will monitor exam clinically covid + prognosis guarded cxr reviewed on abx worsening plan repeat US - noted cannot get hida given covid labs noted worsening leukocytosis Gallbladder demonstrates wall thickening and wall edema, gallbladder wall measuring up to 6 mm thick. There are gallstones. Sonographic Escoto's sign is negative. Common bile duct measures 3 mm in diameter. No intrahepatic biliary ductal dilatation. Liver demonstrates normal echogenicity, no focal abnormality. Portal vein and hepatic veins are patent. Pancreas is unremarkable. Spleen is unremarkable. Left kidney measures 9.2 cm in length. Right kidney measures 9.9 cm length. Both kidneys demonstrate normal echogenicity. There is no hydronephrosis. Small cyst is seen in the right kidney. . Abdominal aorta was not imaged . There is trace ascites. There is a small right pleural effusion incidentally noted Impression: Small right pleural effusion. Trace ascites Cholelithiasis. Gallbladder wall thickening may be related to hemodynamic factors causing the pleural fluid and ascites, but could also indicate acute cholecystitis. Consider nuclear medicine hepatobiliary scan if there is high clinical suspicion. Negative for dilated bile ducts Small right renal cyst incidentally noted (13) Acute respiratory failure with hypoxia Assessment & Plan: s/p trach discussed with family comfortable weaning Quentin Sanchez Jun 02, 2020 14:19
--- NOTE | 2020-06-02 17:50 | NUR ---
NURSE NOTES: Dr. Perez at nurse station, made aware the Diltiazem scheduled at 1800 was no administered as per parameters provided in instructions "Hold for SBP <100." Informed Dr. Perez that patient's blood pressure is 97/[address] Perez stated give Diltiazem now. Noted. Will follow Dr. Perez's instructions. Reassessed patient's blood pressure before administration, noted at 108/57 HR 125 bpm. Diltizem administered as instructed. Will continue to monitor patient.
[2020-06-02] MEDS ORDERED: NS 275ml ONE (18:17)
[2020-06-02] MEDS ORDERED: Tubing Blood Filter IV ONE (18:17)
--- NOTE | 2020-06-02 19:40 | NUR ---
NURSE NOTES: Received pt and report from DAMIAN Vazquez. Observed pt resting in bed with both eyes open and RT at bedside. Pt is A/Ox1-2. residential monitor is in placed; pt is ST (120 bpm); Dr. Perez aware. IV site intact, asymptomatic, and patent. Pt has a [place]iley 8.0 vented; AC 14, TV 500, PEEP 5, FiO2 40%. Pt's O2 sat is 100%. Pt has NGT on RT nare; running Vital AF 1.2 @40cc/hr; no residual noted. Bed is in the lowest position and locked. Call light and bedside table is within reach. No signs/symptoms of acute distress noted. Will continue plan of care.
--- NOTE | 2020-06-02 19:43 | NUR ---
NURSE HAND-OFF REPORT: Important Events on Shift: Patient Status: Stable Diet: Vital AF 1.2 60 ml/hr Pending Orders: None Pending Results/Labs:None Pending MD notification:None Latest Vital Signs: Temperature 98.2 , Pulse 125 , B/P 108 /56 , Respiratory Rate 18 , O2 SAT 100 , Mechanical Ventilator, O2 Flow Rate 4.0 . Vital Sign Comment: Dr. Perez aware of heart rate 125 bpm, instructed to adminsiter Dilitaizem as ordered. EKG Rhythm: Sinus Tachycardia Rhythm change?: N MD Notified?: Y -Dr. Chris MCCRACKEN Response: Order Received& Read Back Latest Lechuga Fall Score: 50 Fall Risk: High Risk Safety Measures: Call light Within Reach, Bed Alarm Zone 1, Side Rails Side Rails x3, Bed position Low and Locked. Fall Precautions: Yellow Socks Yellow Gown Door Sign Patient Fall Education Report given to DAMIAN Carter.
--- NOTE | 2020-06-02 19:56 | General Progress Note ---
Subjective Allergies: Coded Allergies: CIPROFLOXACIN (Verified Allergy, Unknown, 09/27/17) Subjective Above noted d/w staff genetic counselor tachyarrhythmias noted d/w pulmonary re PEG Objective Last 24 Hour Vital Signs Date Time Temp Pulse Resp B/P (MAP) Pulse Ox O2 Delivery O2 Flow Rate FiO2 06/02/20 19:35 118 18 30 06/02/20 17:51 125 108/56 (73) 06/02/20 17:51 123 108/56 06/02/20 17:50 125 97/57 (70) 06/02/20 16:00 98.2 118 20 109/55 (73) 100 06/02/20 16:00 Mechanical Ventilator Mechanical Ventilator 06/02/20 16:00 40 06/02/20 16:00 123 06/02/20 15:15 121 20 30 06/02/20 12:30 117 107/57 06/02/20 12:00 98.5 114 20 107/57 (74) 100 06/02/20 12:00 40 06/02/20 12:00 Mechanical Ventilator Mechanical Ventilator 06/02/20 12:00 116 06/02/20 11:07 118 16 30 06/02/20 08:00 98.1 103 20 103/52 (69) 100 06/02/20 08:00 104 06/02/20 08:00 Mechanical Ventilator Mechanical Ventilator 06/02/20 08:00 40 06/02/20 07:46 112 17 30 06/02/20 06:00 111 97/53 06/02/20 04:00 40 06/02/20 04:00 98.4 117 17 116/53 (74) 100 06/02/20 04:00 Mechanical Ventilator Mechanical Ventilator 06/02/20 03:27 112 06/02/20 03:16 128 18 30 06/02/20 00:00 40 06/02/20 00:00 Mechanical Ventilator Mechanical Ventilator 06/02/20 00:00 98.1 119 17 117/55 (75) 100 06/01/20 23:56 119 95/47 06/01/20 23:36 115 06/01/20 22:47 99.0 06/01/20 22:37 122 20 30 06/01/20 20:00 97.5 129 17 100/49 (66) 100 06/01/20 20:00 Mechanical Ventilator Mechanical Ventilator 06/01/20 20:00 128 06/01/20 20:00 40 06/01/20 19:52 132 19 100 Mechanical Ventilator 30 130 18 30 Intake and Output 06/01/20 06/02/20 19:00 07:00 Intake Total 2835 ml Output Total 800 ml Balance 2035 ml Free Water 1000 ml IV Total 825 ml Tube Feeding 760 ml Blood Product 250 ml Output Urine Total 800 ml Laboratory Tests 06/01/20 23:44: POC Whole Blood Glucose 140H 06/02/20 05:31: POC Whole Blood Glucose 120H 06/02/20 05:48: White Blood Count 7.5, Red Blood Count 3.32L, Hemoglobin 9.2L, Hematocrit 27.2L, Mean Corpuscular Volume 82, Mean Corpuscular Hemoglobin 27.6, Mean Corpuscular Hemoglobin Concent 33.8, Red Cell Distribution Width 16.0H, Platelet Count 250, Mean Platelet Volume 7.0, Neutrophils (%) (Auto) 65.4, Lymphocytes (%) (Auto) 18.8L, Monocytes (%) (Auto) 12.1H, Eosinophils (%) (Auto) 2.2, Basophils (%) (Auto) 1.5, Sodium Level 138, Potassium Level 3.8, Chloride Level 104, Carbon Dioxide Level 28, Anion Gap 6, Blood Urea Nitrogen 58H, Creatinine 1.8H, Estimat Glomerular Filtration Rate 32.8, Glucose Level 128H, Calcium Level 7.3L 06/02/20 11:55: POC Whole Blood Glucose 131H 06/02/20 16:42: POC Whole Blood Glucose 117H Height (Feet): 5 Height (Inches): 3.00 Weight (Pounds): 174 Objective Elderly AA woman exam limited due to COVID isolation comfortable appearing NCAT (+) NG Feeding tube - tolerating well (+) trach abd non distended tachycardic Assessment/Plan Status: stable Assessment/Plan: Assessment - Transaminitis, likely due to COVID-19 - Gallstones - Resp failure - s/p trach - Dysphagia - NGT - CHF - Pulm HTN - Arrhythmia - HR 117 - 125 - Renal failure Recommendations - monitor LFT - Continue TF - d/w RN - need to move patient to arrange for PEG - cardiology clearance for PEG - Abx Justine Torres MD Jun 02, 2020 19:56
--- NOTE | 2020-06-02 23:49 | Cardiology Progress Note ---
Subjective DATE OF SERVICE: Jun 02, 2020 Condition remains critical; patient remains on [facility] ventilation - failed wean, and now s/p trach. Monitor: AFib with episodes of RVR and rare nonsustained VTach. BP range improved, but still with low episodes. CXR (06/02) reviewed: bilateral infiltrates with left pl eff'n. ICU logs and cardiology care plan reviewed and updated Objective Last 24 Hour Vital Signs Date Time Temp Pulse Resp B/P (MAP) Pulse Ox O2 Delivery O2 Flow Rate FiO2 06/02/20 23:11 124 23 30 06/02/20 20:00 98.6 117 103/53 (70) 06/02/20 20:00 Mechanical Ventilator Mechanical Ventilator 06/02/20 20:00 40 06/02/20 19:42 126 06/02/20 19:35 118 18 30 06/02/20 17:51 125 108/56 (73) 06/02/20 17:51 123 108/56 06/02/20 17:50 125 97/57 (70) 06/02/20 16:00 98.2 118 20 109/55 (73) 100 06/02/20 16:00 Mechanical Ventilator Mechanical Ventilator 06/02/20 16:00 40 06/02/20 16:00 123 06/02/20 15:15 121 20 30 06/02/20 12:30 117 107/57 06/02/20 12:00 98.5 114 20 107/57 (74) 100 06/02/20 12:00 40 06/02/20 12:00 Mechanical Ventilator Mechanical Ventilator 06/02/20 12:00 116 06/02/20 11:07 118 16 30 06/02/20 08:00 98.1 103 20 103/52 (69) 100 06/02/20 08:00 104 06/02/20 08:00 Mechanical Ventilator Mechanical Ventilator 06/02/20 08:00 40 06/02/20 07:46 112 17 30 06/02/20 06:00 111 97/53 06/02/20 04:00 40 06/02/20 04:00 98.4 117 17 116/53 (74) 100 06/02/20 04:00 Mechanical Ventilator Mechanical Ventilator 06/02/20 03:27 112 06/02/20 03:16 128 18 30 06/02/20 00:00 40 06/02/20 00:00 Mechanical Ventilator Mechanical Ventilator 06/02/20 00:00 98.1 119 17 117/55 (75) 100 06/01/20 23:56 119 95/47 ROS: unchanged from my eval of 05/03/20 HEENT: Orally intubated, Mechanically Ventilated, Thin secretions ET Tube RHYTHM: Afib LUNGS: no accessory muscle use, expiratory wheezing, diminished breath sounds CARDIAC: normal S1 and S2, no murmur, irregularly irregular ABDOMEN: normal bowel sounds, non tender, soft, no organomegaly EXTREMITIES: no calf tenderness, +1 edema Laboratory Tests Test 06/02/20 05:31 06/02/20 05:48 06/02/20 11:55 06/02/20 16:42 POC Whole Blood Glucose 120 MG/DL (74-106) H 131 MG/DL (74-106) H 117 MG/DL (74-106) H White Blood Count 7.5 K/UL (4.8-10.8) Red Blood Count 3.32 M/UL (4.20-5.40) L Hemoglobin 9.2 G/DL (12.0-16.0) L Hematocrit 27.2 % (37.0-47.0) L Mean Corpuscular Volume 82 FL (80-99) Mean Corpuscular Hemoglobin 27.6 PG (27.0-31.0) Mean Corpuscular Hemoglobin Concent 33.8 G/DL (32.0-36.0) Red Cell Distribution Width 16.0 % (11.6-14.8) H Platelet Count 250 K/UL (150-450) Mean Platelet Volume 7.0 FL (6.5-10.1) Neutrophils (%) (Auto) 65.4 % (45.0-75.0) Lymphocytes (%) (Auto) 18.8 % (20.0-45.0) L Monocytes (%) (Auto) 12.1 % (1.0-10.0) H Eosinophils (%) (Auto) 2.2 % (0.0-3.0) Basophils (%) (Auto) 1.5 % (0.0-2.0) Sodium Level 138 MMOL/L (136-145) Potassium Level 3.8 MMOL/L (3.5-5.1) Chloride Level 104 MMOL/L (98-107) Carbon Dioxide Level 28 MMOL/L (21-32) Anion Gap 6 mmol/L (5-15) Blood Urea Nitrogen 58 mg/dL (7-18) H Creatinine 1.8 MG/DL (0.55-1.30) H Estimat Glomerular Filtration Rate 32.8 mL/min (>60) Glucose Level 128 MG/DL (74-106) H Calcium Level 7.3 MG/DL (8.5-10.1) L Assessment/Plan Assessment/Plan Acute on chronic respiratory acidosis Worsening anemia Acute respiratory failure - s/p trach. Shock LE edema due to severe pulmonary hypertension and right heart strain COPD exacerb with active bronchospasm Lactic acidosis COVID 19 PNA Acute on chr renal failure Chronic systolic/diastolic CHF Pulmonary fibrosis with chronic hypoxia Paroxysmal AFib with RVR Hx Multifocal atrial arrhythmias Pulmonary HTN - severe Hx NSVTach Severe protein/calorie malnutrition Acute myocardial ischemia Resolving transaminitis CRITICAL & GUARDED PRBC transfusion Vent support with on-going weaning efforts following trach Diltiazem dose titrations based on ventricular rate and BP parameters. Steroids per pulmonary Inhaled bronchodilators Hypotonic IVF until free water deficit corrected Full anticoagulation for cardioembolic prophyl. Isolation Anti-viral rx per ID Monitor liver fxn Simone Perez MD Jun 02, 2020 23:49
[2020-06-03] VITALS: BP 98/55
--- NOTE | 2020-06-03 01:15 | NUR ---
NURSE NOTES: Observed pt resting in bed with both eyes closed. No signs/symptoms of acute respiratory distress noted. Pt's O2 sat is 100%.
[2020-06-03 03:53] LABS: BASOPHILS % (AUTO) 1.5 % (0.0-2.0); EOSINOPHILS % (AUTO) 1.8 % (0.0-3.0); HEMATOCRIT 27.8 % (37.0-47.0); HEMOGLOBIN 9.3 G/DL (12.0-16.0); LYMPHOCYTES % (AUTO) 16.9 % (20.0-45.0); MEAN CORPUSCULAR VOLUME 81 FL (80-99); MONOCYTES % (AUTO) 13.3 % (1.0-10.0); NEUTROPHILS % (AUTO) 66.5 % (45.0-75.0); PLATELET COUNT 313 K/UL (150-450); RED BLOOD COUNT 3.41 M/UL (4.20-5.40); WHITE BLOOD COUNT 8.7 K/UL (4.8-10.8)
[2020-06-03 03:57] LABS: INR 1.2 (0.9-1.1)
[2020-06-03 04:00] VITALS: BP 99/48
[2020-06-03 04:23] LABS: CALCIUM 7.2 MG/DL (8.5-10.1); CREATININE 1.6 MG/DL (0.55-1.30); POTASSIUM 3.4 MMOL/L (3.5-5.1)
[2020-06-03 04:32] LABS: ALANINE AMINOTRANSFERASE 41 U/L (12-78); ALBUMIN 0.7 G/DL (3.4-5.0); ALKALINE PHOSPHATASE 244 U/L (46-116); ASPARTATE AMINO TRANSFERASE 46 U/L (15-37); BILIRUBIN,DIRECT 0.2 MG/DL (0.0-0.3); BILIRUBIN,TOTAL 0.5 MG/DL (0.2-1.0)
[2020-06-03] MEDS: NovoLOG Insulin Flexpen SUBQ SCH ×4 (06:00→18:41)
[2020-06-03] MEDS: dilTIAZem HCl 60mg tab NG SCH ×4 (06:00→18:41)
[2020-06-03] MEDS: Ipratropium Bromide Inhaler INH SCH ×4 (07:26→20:00)
--- NOTE | 2020-06-03 07:32 | NUR ---
NURSE HAND-OFF REPORT: Important Events on Shift: No significant changes during cook night. Patient Status: Stable Diet: Vital AF 1.2 @40cc/hr. Pending Orders: N Pending Results/Labs: AM Labs Pending MD notification: N Latest Vital Signs: Temperature 99.0 , Pulse 108 , B/P 97 /48 , Respiratory Rate 22 , O2 SAT 100 , Mechanical Ventilator, O2 Flow Rate 4.0 . EKG Rhythm: Sinus Tachycardia Rhythm change?: N Latest Lechuga Fall Score: 50 Fall Risk: High Risk Safety Measures: Call light Within Reach, Bed Alarm Zone 1, Side Rails Side Rails x3, Bed position Low and Locked. Fall Precautions: Yellow Socks Yellow Gown Door Sign Patient Fall Education Report given to DAMIAN Oconnell.
[2020-06-03 08:00] VITALS: BP 109/49
--- NOTE | 2020-06-03 08:00 | NUR ---
NURSE NOTES: Report received from Sharmaine RN. Patient is observed in bed, awake, alert, and able to make needs known. Respiratory even and unlabored. GTF is asymptomatic, patent, and intact. GTF is running at a prescribed rate . IV site is asymptomatic, patent, and intact. Bed is in lowest position with side rails up x2 and brakes are engaged. HOB elevated. Bed alarm is on. Will continue to monitor.
[2020-06-03] MEDS: Pantoprazole Inj IVP SCH (09:20)
[2020-06-03] MEDS: Enoxaparin 60mg Inj SUBQ SCH (09:21)
--- NOTE | 2020-06-03 09:32 | Pulmonology Progress Note ---
Subjective ROS Limited/Unobtainable: Yes Constitutional: Reports: other - dosen,t feel good Musculoskeletal: Denies: pain Allergies: Coded Allergies: CIPROFLOXACIN (Verified Allergy, Unknown, 09/27/17) All Systems: reviewed and negative except above Subjective on vent- underwent trach and awaiting gt pulse rate still elevated comfortable sedated reduced LOC Objective Last 24 Hour Vital Signs Date Time Temp Pulse Resp B/P (MAP) Pulse Ox O2 Delivery O2 Flow Rate FiO2 06/03/20 08:00 40 06/03/20 08:00 Mechanical Ventilator Mechanical Ventilator 06/03/20 08:00 99.4 115 20 109/49 (69) 100 06/03/20 07:10 112 14 100 Mechanical Ventilator 30 113 16 40 06/03/20 06:00 108 97/48 06/03/20 04:00 Mechanical Ventilator Mechanical Ventilator 06/03/20 04:00 40 06/03/20 04:00 99.0 113 99/48 (65) 06/03/20 04:00 118 06/03/20 03:34 119 22 30 06/03/20 00:00 99.1 119 98/55 (69) 06/03/20 00:00 119 98/55 06/03/20 00:00 122 06/03/20 00:00 Mechanical Ventilator Mechanical Ventilator 06/02/20 23:11 124 23 30 06/02/20 20:00 98.6 117 103/53 (70) 06/02/20 20:00 Mechanical Ventilator Mechanical Ventilator 06/02/20 20:00 40 06/02/20 19:42 126 06/02/20 19:35 118 18 30 06/02/20 17:51 125 108/56 (73) 06/02/20 17:51 123 108/56 06/02/20 17:50 125 97/57 (70) 06/02/20 16:00 98.2 118 20 109/55 (73) 100 06/02/20 16:00 Mechanical Ventilator Mechanical Ventilator 06/02/20 16:00 40 06/02/20 16:00 123 06/02/20 15:15 121 20 30 06/02/20 12:30 117 107/57 06/02/20 12:00 98.5 114 20 107/57 (74) 100 06/02/20 12:00 40 06/02/20 12:00 Mechanical Ventilator Mechanical Ventilator 06/02/20 12:00 116 06/02/20 11:07 118 16 30 Intake and Output 06/02/20 06/03/20 19:00 07:00 Intake Total 780 ml 775 ml Output Total 1100 ml Balance -320 ml 775 ml Free Water 300 ml 375 ml Tube Feeding 480 ml 400 ml Output Urine Total 1000 ml Stool Total 100 ml Objective deferred due to COVID Laboratory Tests 06/02/20 11:55: POC Whole Blood Glucose 131H 06/02/20 16:42: POC Whole Blood Glucose 117H 06/03/20 00:16: POC Whole Blood Glucose [Pending] 06/03/20 03:05: White Blood Count 8.7, Red Blood Count 3.41L, Hemoglobin 9.3L, Hematocrit 27.8L, Mean Corpuscular Volume 81, Mean Corpuscular Hemoglobin 27.3, Mean Corpuscular Hemoglobin Concent 33.6, Red Cell Distribution Width 16.0H, Platelet Count 313, Mean Platelet Volume 6.4L, Neutrophils (%) (Auto) 66.5, Lymphocytes (%) (Auto) 16.9L, Monocytes (%) (Auto) 13.3H, Eosinophils (%) (Auto) 1.8, Basophils (%) (Au to) 1.5, Prothrombin Time 12.6H, Prothromb Time International Ratio 1.2H, Activated Partial Thromboplast Time 30, Sodium Level 137, Potassium Level 3.4L, Chloride Level 101, Carbon Dioxide Level 27, Anion Gap 9, Blood Urea Nitrogen 58H, Creatinine 1.6H, Estimat Glomerular Filtration Rate 37.6, Glucose Level 111H, Calcium Level 7.2L, Total Bilirubin 0.5, Direct Bilirubin 0.2, Aspartate Amino Transf (AST/SGOT) 46H, Alanine Aminotransferase (ALT/SGPT) 41, Alkaline Phosphatase 244H, Pro-B-Type Natriuretic Peptide [id number], Total Protein 5.6L, Albumin 0.7L 06/03/20 05:45: POC Whole Blood Glucose [Pending] Current Medications Medications (Trade) Dose Ordered Sig/Ghislaine Route PRN Reason Start Time Stop Time Status Last Admin Dose Admin Acetaminophen (Tylenol) 650 mg Q4H PRN NG Temp >100.5 05/25/20 16:15 06/24/20 16:14 06/01/20 22:17 Albuterol Sulfate (Proventil MDI) 2 puff Q4H PRN INH Shortness of Breath 05/11/20 20:00 08/01/20 11:59 05/13/20 10:30 Dextrose (Dextrose 50%) 25 ml Q30M PRN IV Hypoglycemia 05/22/20 18:30 08/20/20 18:29 Dextrose (Dextrose 50%) 50 ml Q30M PRN IV Hypoglycemia 05/22/20 18:30 08/20/20 18:29 Diltiazem HCl (Cardizem Tab) 60 mg EVERY 6 HOURS NG 06/01/20 12:00 06/30/20 17:59 06/02/20 17:51 Enoxaparin Sodium (Lovenox) 60 mg DAILY SUBQ 06/03/20 09:00 09/01/20 08:59 06/03/20 09:21 Insulin Aspart (NovoLOG) Q6HR SUBQ 05/23/20 00:00 08/20/20 20:59 06/02/20 00:00 Ipratropium [place] (Atrovent Inh) 1 puffs QIDRT INH 06/01/20 07:00 06/26/20 09:59 06/03/20 07:26 Levofloxacin (Levaquin) 250 mg DAILY NG 06/03/20 09:00 06/10/20 08:59 06/03/20 09:20 Loperamide HCl (Imodium) 2 mg Q6H PRN NG Diarrhea 05/26/20 17:45 06/25/20 17:44 05/27/20 10:52 Pantoprazole (Protonix) 40 mg DAILY IVP 05/28/20 09:00 06/27/20 08:59 06/03/20 09:20 Salmeterol Xinafoate/ Fluticasone (Advair 100/50 Diskus) 1 puffs BIDRT INH 05/11/20 22:00 08/09/20 21:59 05/16/20 09:02 Assessment/Plan Assessment/Plan Impression: COVID-19 Chronic obstructive pulmonary disease/Asthma Community acquired pneumonia Atrial fibrillation with RVR Elevated troponin Congestive heart Failure sinus tachycardia Hypoxemia transaminitis with gallstones acute on chronic renal failure acute respiratory failure hypotension tachycardia transaminitis MODS anemia Plan ID noted gi for GT monitor vitals and control heart rate Vent support/and trach care feeds per dietary and monitor residuals; IV therapy noted Bronchodilator therapy Eliquis on hold- need to resume after GT GT needed Monitor labs/ renal follow up - renal function still reduced- Covid 19 Isolation- per ID ? dc nutrition and NG feeds reviewed care and optimize position change and monitor skin surgical follow up noted monitor protein levels and adjust will need placement when gt placed impression, plan, and exam edited and reviewed in detail care discussed with Aaron Bales MD Jun 03, 2020 09:32
[2020-06-03] MEDS: Wixela 100/50 Inhaler - 60 dose INH SCH ×2 (10:00→20:04)
--- NOTE | 2020-06-03 10:00 | NUR ---
NURSE NOTES: Notified Dr. Jefferson regarding elevated BNP this AM, awaiting call back.
--- NOTE | 2020-06-03 10:41 | Infectious Diseases Prog Note ---
Assessment/Plan Assessment/Plan antibiotics : levoquin A 1. COVID 19 pneumonia s/p ivermectin 9.7.20 2. renal failure 3. increased LFT 4. COPD 5. CHF 6. asthma 7. respiratory failure s/p tracheostomy 8. leucocytosis resolved 9. pseudomonas pneumonia 10. fungal UTI s/p rx P 1. continue levoquin 4 more days 2. will follow up cultures Subjective ROS Limited/Unobtainable: Yes Allergies: Coded Allergies: CIPROFLOXACIN (Verified Allergy, Unknown, 09/27/17) Objective Last 24 Hour Vital Signs Date Time Temp Pulse Resp B/P (MAP) Pulse Ox O2 Delivery O2 Flow Rate FiO2 06/03/20 08:00 40 06/03/20 08:00 Mechanical Ventilator Mechanical Ventilator 06/03/20 08:00 99.4 115 20 109/49 (69) 100 06/03/20 07:44 116 06/03/20 07:10 112 14 100 Mechanical Ventilator 30 113 16 40 06/03/20 06:00 108 97/48 06/03/20 04:00 Mechanical Ventilator Mechanical Ventilator 06/03/20 04:00 40 06/03/20 04:00 99.0 113 99/48 (65) 06/03/20 04:00 118 06/03/20 03:34 119 22 30 06/03/20 00:00 99.1 119 98/55 (69) 06/03/20 00:00 119 98/55 06/03/20 00:00 122 06/03/20 00:00 Mechanical Ventilator Mechanical Ventilator 06/02/20 23:11 124 23 30 06/02/20 20:00 98.6 117 103/53 (70) 06/02/20 20:00 Mechanical Ventilator Mechanical Ventilator 06/02/20 20:00 40 06/02/20 19:42 126 06/02/20 19:35 118 18 30 06/02/20 17:51 125 108/56 (73) 06/02/20 17:51 123 108/56 06/02/20 17:50 125 97/57 (70) 06/02/20 16:00 98.2 118 20 109/55 (73) 100 06/02/20 16:00 Mechanical Ventilator Mechanical Ventilator 06/02/20 16:00 40 06/02/20 16:00 123 06/02/20 15:15 121 20 30 06/02/20 12:30 117 107/57 06/02/20 12:00 98.5 114 20 107/57 (74) 100 06/02/20 12:00 40 06/02/20 12:00 Mechanical Ventilator Mechanical Ventilator 06/02/20 12:00 116 06/02/20 11:07 118 16 30 Height (Feet): 5 Height (Inches): 3.00 Weight (Pounds): 174 HEENT: status post trach Respiratory/Chest: lungs clear Cardiovascular: normal rate, regular rhythm, no gallop/murmur Abdomen: soft, non tender Extremities: other - + edema Laboratory Tests Test 06/02/20 11:55 06/02/20 16:42 06/03/20 00:16 06/03/20 03:05 POC Whole Blood Glucose 131 MG/DL (74-106) H 117 MG/DL (74-106) H Pending White Blood Count 8.7 K/UL (4.8-10.8) Red Blood Count 3.41 M/UL (4.20-5.40) L Hemoglobin 9.3 G/DL (12.0-16.0) L Hematocrit 27.8 % (37.0-47.0) L Mean Corpuscular Volume 81 FL (80-99) Mean Corpuscular Hemoglobin 27.3 PG (27.0-31.0) Mean Corpuscular Hemoglobin Concent 33.6 G/DL (32.0-36.0) Red Cell Distribution Width 16.0 % (11.6-14.8) H Platelet Count 313 K/UL (150-450) Mean Platelet Volume 6.4 FL (6.5-10.1) L Neutrophils (%) (Auto) 66.5 % (45.0-75.0) Lymphocytes (%) (Auto) 16.9 % (20.0-45.0) L Monocytes (%) (Auto) 13.3 % (1.0-10.0) H Eosinophils (%) (Auto) 1.8 % (0.0-3.0) Basophils (%) (Auto) 1.5 % (0.0-2.0) Prothrombin Time 12.6 SEC (9.30-11.50) H Prothromb Time International Ratio 1.2 (0.9-1.1) H Activated Partial Thromboplast Time 30 SEC (23-33) Sodium Level 137 MMOL/L (136-145) Potassium Level 3.4 MMOL/L (3.5-5.1) L Chloride Level 101 MMOL/L (98-107) Carbon Dioxide Level 27 MMOL/L (21-32) Anion Gap 9 mmol/L (5-15) Blood Urea Nitrogen 58 mg/dL (7-18) H Creatinine 1.6 MG/DL (0.55-1.30) H Estimat Glomerular Filtration Rate 37.6 mL/min (>60) Glucose Level 111 MG/DL (74-106) H Calcium Level 7.2 MG/DL (8.5-10.1) L Total Bilirubin 0.5 MG/DL (0.2-1.0) Direct Bilirubin 0.2 MG/DL (0.0-0.3) Aspartate Amino Transf (AST/SGOT) 46 U/L (15-37) H Alanine Aminotransferase (ALT/SGPT) 41 U/L (12-78) Alkaline Phosphatase 244 U/L (46-116) H Pro-B-Type Natriuretic Peptide 60412 pg/mL (0-125) H Total Protein 5.6 G/DL (6.4-8.2) L Albumin 0.7 G/DL (3.4-5.0) L Test 06/03/20 05:45 POC Whole Blood Glucose Pending Current Medications Medications (Trade) Dose Ordered Sig/Ghislaine Route PRN Reason Start Time Stop Time Status Last Admin Dose Admin Acetaminophen (Tylenol) 650 mg Q4H PRN NG Temp >100.5 05/25/20 16:15 06/24/20 16:14 06/01/20 22:17 Albuterol Sulfate (Proventil MDI) 2 puff Q4H PRN INH Shortness of Breath 05/11/20 20:00 08/01/20 11:59 05/13/20 10:30 Dextrose (Dextrose 50%) 25 ml Q30M PRN IV Hypoglycemia 05/22/20 18:30 08/20/20 18:29 Dextrose (Dextrose 50%) 50 ml Q30M PRN IV Hypoglycemia 05/22/20 18:30 08/20/20 18:29 Diltiazem HCl (Cardizem Tab) 60 mg EVERY 6 HOURS NG 06/01/20 12:00 113/20 17:59 06/02/20 17:51 Enoxaparin Sodium (Lovenox) 60 mg DAILY SUBQ 06/03/20 09:00 09/01/20 08:59 06/03/20 09:21 Insulin Aspart (NovoLOG) Q6HR SUBQ 05/23/20 00:00 08/20/20 20:59 06/02/20 00:00 Ipratropium [place] (Atrovent Inh) 1 puffs QIDRT INH 06/01/20 07:00 06/26/20 09:59 06/03/20 07:26 Levofloxacin (Levaquin) 250 mg DAILY NG 06/03/20 09:00 06/10/20 08:59 06/03/20 09:20 Loperamide HCl (Imodium) 2 mg Q6H PRN NG Diarrhea 05/26/20 17:45 06/25/20 17:44 05/27/20 10:52 Pantoprazole (Protonix) 40 mg DAILY IVP 05/28/20 09:00 06/27/20 08:59 06/03/20 09:20 Salmeterol Xinafoate/ Fluticasone (Advair 100/50 Diskus) 1 puffs BIDRT INH 05/11/20 22:00 08/09/20 21:59 05/16/20 09:02 Camilo Cameron MD Jun 03, 2020 10:41
--- NOTE | 2020-06-03 11:30 | NUR ---
NURSE NOTES: Notified Dr. Perez regarding elevated BNP. No new orders noted at this time.
[2020-06-03 11:58] VITALS: BP 97/49
--- NOTE | 2020-06-03 12:30 | NUR ---
NURSE NOTES: Patient is asleep but arousable by voice. Bed is in lowest position with side rails up x2 and brakes are engaged. GTF is running at a prescribed rate. VSS. Will continue to monitor.
--- NOTE | 2020-06-03 13:37 | NUR ---
CASE MANAGEMENT: REVIEW SI: COVID-19 . PNA . T 99.4 HR 116 RR 20 BP 97/49 SAT 100% MECH VENT FIO2 40 H/H 9.3/27.8 GLUCOSE 111 REPEAT COVID PENDING PEG PLACEMENT PENDING IS: LEVAQUIN GT Q48HR ADVAIR INH BID PROTONIX IV QD D5W IVF @ 75ML/HR CARDIZEM Q6HR GT TYLENOL NGT Q4HR PRN STEP DOWN UNIT STATUS DCP: PATIENT IS FROM HOME
--- NOTE | 2020-06-03 14:37 | Nephrology Progress Note ---
Assessment/Plan Plan MELODY resolving. MOF due to Covid 19 MOF. Subjective Subjective Confused Objective Objective Last 24 Hour Vital Signs Date Time Temp Pulse Resp B/P (MAP) Pulse Ox O2 Delivery O2 Flow Rate FiO2 06/03/20 12:04 Mechanical Ventilator Mechanical Ventilator 06/03/20 12:04 40 06/03/20 12:00 114 97/49 06/03/20 12:00 115 06/03/20 11:58 98.7 114 20 97/49 (65) 100 06/03/20 11:10 115 16 100 Mechanical Ventilator 30 115 16 40 06/03/20 08:00 40 06/03/20 08:00 Mechanical Ventilator Mechanical Ventilator 06/03/20 08:00 99.4 115 20 109/49 (69) 100 06/03/20 07:44 116 06/03/20 07:10 112 14 100 Mechanical Ventilator 30 113 16 40 06/03/20 06:00 108 97/48 06/03/20 04:00 Mechanical Ventilator Mechanical Ventilator 06/03/20 04:00 40 06/03/20 04:00 99.0 113 99/48 (65) 06/03/20 04:00 118 06/03/20 03:34 119 22 30 06/03/20 00:00 99.1 119 98/55 (69) 06/03/20 00:00 119 98/55 06/03/20 00:00 122 06/03/20 00:00 Mechanical Ventilator Mechanical Ventilator 06/02/20 23:11 124 23 30 06/02/20 20:00 98.6 117 103/53 (70) 06/02/20 20:00 Mechanical Ventilator Mechanical Ventilator 06/02/20 20:00 40 06/02/20 19:42 126 06/02/20 19:35 118 18 30 06/02/20 17:51 125 108/56 (73) 06/02/20 17:51 123 108/56 06/02/20 17:50 125 97/57 (70) 06/02/20 16:00 98.2 118 20 109/55 (73) 100 06/02/20 16:00 Mechanical Ventilator Mechanical Ventilator 06/02/20 16:00 40 06/02/20 16:00 123 06/02/20 15:15 121 20 30 Intake and Output 06/02/20 06/03/20 19:00 07:00 Intake Total 780 ml 775 ml Output Total 1100 ml Balance -320 ml 775 ml Free Water 300 ml 375 ml Tube Feeding 480 ml 400 ml Output Urine Total 1000 ml Stool Total 100 ml Laboratory Tests 06/02/20 16:42: POC Whole Blood Glucose 117H 06/03/20 00:16: POC Whole Blood Glucose [Pending] 06/03/20 03:05: White Blood Count 8.7, Red Blood Count 3.41L, Hemoglobin 9.3L, Hematocrit 27.8L, Mean Corpuscular Volume 81, Mean Corpuscular Hemoglobin 27.3, Mean Corpuscular Hemoglobin Concent 33.6, Red Cell Distribution Width 16.0H, Platelet Count 313, Mean Platelet Volume 6.4L, Neutrophils (%) (Auto) 66.5, Lymphocytes (%) (Auto) 16.9L, Monocytes (%) (Auto) 13.3H, Eosinophils (%) (Auto) 1.8, Basophils (%) (Auto) 1.5, Prothrombin Time 12.6H, Prothromb Time International Ratio 1.2H, Activated Partial Thromboplast Time 30, Sodium Level 137, Potassium Level 3.4L, Chloride Level 101, Carbon Dioxide Level 27, Anion Gap 9, Blood Urea Nitrogen 58H, Creatinine 1.6H, Estimat Glomerular Filtration Rate 37.6, Glucose Level 111H, Calcium Level 7.2L, Total Bilirubin 0.5, Direct Bilirubin 0.2, Aspartate Amino Transf (AST/SGOT) 46H, Alanine Aminotransferase (ALT/SGPT) 41, Alkaline Phosphatase 244H, Pro-B-Type Natriuretic Peptide [id number], Total Protein 5.6L, Albumin 0.7L 06/03/20 05:45: POC Whole Blood Glucose [Pending] 06/03/20 11:37: POC Whole Blood Glucose 111H Height (Feet): 5 Height (Inches): 3.00 Weight (Pounds): 174 Objective CV Tach +Irr Trach OK Lungs B Ronchi Abd SNT. BS + E +3 edema Ruth Coyne MD Jun 03, 2020 14:37
[2020-06-03 16:00] VITALS: BP 114/54
--- NOTE | 2020-06-03 17:20 | Surgery Progress Note ---
Surgery Progress Note Subjective Procedure Performed trach Additional Comments exam stable afebrile comfortable Objective Last 24 Hour Vital Signs Date Time Temp Pulse Resp B/P (MAP) Pulse Ox O2 Delivery O2 Flow Rate FiO2 06/03/20 16:00 40 06/03/20 16:00 Mechanical Ventilator Mechanical Ventilator 06/03/20 12:04 Mechanical Ventilator Mechanical Ventilator 06/03/20 12:04 40 06/03/20 12:00 114 97/49 06/03/20 12:00 115 06/03/20 11:58 98.7 114 20 97/49 (65) 100 06/03/20 11:10 115 16 100 Mechanical Ventilator 30 115 16 40 06/03/20 08:00 40 06/03/20 08:00 Mechanical Ventilator Mechanical Ventilator 06/03/20 08:00 99.4 115 20 109/49 (69) 100 06/03/20 07:44 116 06/03/20 07:10 112 14 100 Mechanical Ventilator 30 113 16 40 06/03/20 06:00 108 97/48 06/03/20 04:00 Mechanical Ventilator Mechanical Ventilator 06/03/20 04:00 40 06/03/20 04:00 99.0 113 99/48 (65) 06/03/20 04:00 118 06/03/20 03:34 119 22 30 06/03/20 00:00 99.1 119 98/55 (69) 06/03/20 00:00 119 98/55 06/03/20 00:00 122 06/03/20 00:00 Mechanical Ventilator Mechanical Ventilator 06/02/20 23:11 124 23 30 06/02/20 20:00 98.6 117 103/53 (70) 06/02/20 20:00 Mechanical Ventilator Mechanical Ventilator 06/02/20 20:00 40 06/02/20 19:42 126 06/02/20 19:35 118 18 30 06/02/20 17:51 125 108/56 (73) 06/02/20 17:51 123 108/56 06/02/20 17:50 125 97/57 (70) I&O Intake and Output 06/02/20 06/03/20 19:00 07:00 Intake Total 780 ml 775 ml Output Total 1100 ml Balance -320 ml 775 ml Free Water 300 ml 375 ml Tube Feeding 480 ml 400 ml Output Urine Total 1000 ml Stool Total 100 ml Dressing: saturated Cardiovascular: RSR Respiratory: clear, decreased breath sounds Abdomen: non-tender, present bowel sounds Extremities: no tenderness, no cyanosis Laboratory Tests Test 06/03/20 00:16 06/03/20 03:05 06/03/20 05:45 06/03/20 11:37 POC Whole Blood Glucose Pending Pending 111 MG/DL (74-106) H White Blood Count 8.7 K/UL (4.8-10.8) Red Blood Count 3.41 M/UL (4.20-5.40) L Hemoglobin 9.3 G/DL (12.0-16.0) L Hematocrit 27.8 % (37.0-47.0) L Mean Corpuscular Volume 81 FL (80-99) Mean Corpuscular Hemoglobin 27.3 PG (27.0-31.0) Mean Corpuscular Hemoglobin Concent 33.6 G/DL (32.0-36.0) Red Cell Distribution Width 16.0 % (11.6-14.8) H Platelet Count 313 K/UL (150-450) Mean Platelet Volume 6.4 FL (6.5-10.1) L Neutrophils (%) (Auto) 66.5 % (45.0-75.0) Lymphocytes (%) (Auto) 16.9 % (20.0-45.0) L Monocytes (%) (Auto) 13.3 % (1.0-10.0) H Eosinophils (%) (Auto) 1.8 % (0.0-3.0) Basophils (%) (Auto) 1.5 % (0.0-2.0) Prothrombin Time 12.6 SEC (9.30-11.50) H Prothromb Time International Ratio 1.2 (0.9-1.1) H Activated Partial Thromboplast Time 30 SEC (23-33) Sodium Level 137 MMOL/L (136-145) Potassium Level 3.4 MMOL/L (3.5-5.1) L Chloride Level 101 MMOL/L (98-107) Carbon Dioxide Level 27 MMOL/L (21-32) Anion Gap 9 mmol/L (5-15) Blood Urea Nitrogen 58 mg/dL (7-18) H Creatinine 1.6 MG/DL (0.55-1.30) H Estimat Glomerular Filtration Rate 37.6 mL/min (>60) Glucose Level 111 MG/DL (74-106) H Calcium Level 7.2 MG/DL (8.5-10.1) L Total Bilirubin 0.5 MG/DL (0.2-1.0) Direct Bilirubin 0.2 MG/DL (0.0-0.3) Aspartate Amino Transf (AST/SGOT) 46 U/L (15-37) H Alanine Aminotransferase (ALT/SGPT) 41 U/L (12-78) Alkaline Phosphatase 244 U/L (46-116) H Pro-B-Type Natriuretic Peptide 22698 pg/mL (0-125) H Total Protein 5.6 G/DL (6.4-8.2) L Albumin 0.7 G/DL (3.4-5.0) L Plan Problems: (1) Elevated troponin (2) Atrial fibrillation with RVR (3) COVID-19 Assessment & Plan: ++ as per pulm and ID trach DAILY ESTIMATED NEEDS: Needs based on Critical Care, ARF/ 56kg abw 22-28 kcals/kg 7079-4030 total kcals 0.8-1.5 (increase w/ renal improvement) g protein/kg 45-84 g total protein 25-30 mL/kg 8836-5912 total fluid mLs NUTRITION DIAGNOSIS: * Altered nutrition related lab values r/t clinical status as evidenced by elev BUN(82), creat(3.8) trending up, critical ABG (low pH, elev CO2)-> now improved. * Swallowing difficulty R/T respiratory status as evidenced by s/p oral intubation, on OGT feeds. 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: V[employer]IN[employer] DIAGNO[employer]ICIAN eval post extubation ENTERAL NUTRITION RECOMMENDATIONS: Nepro @ 35ml/hr x 24 hrs to provide 840ml, 1512kcal, 68g prot, 610ml free water * W/ worsening renal fxn, rec to continue Nepro * As tolerated, increase goal rate to 35ml/hr x 24 hrs to meet 100% est kcal/prot needs ADDITIONAL RECOMMENDATIONS: 1) Calibrated bedscale wt 2) Monitor renal fxn and lytes, need to continue Nepro Creat trending up 3) Rec niss w/ solumedrol (4) Community acquired pneumonia (5) COPD (chronic obstructive pulmonary disease) (6) Pulmonary fibrosis (7) Asthma (8) History of asthma (9) NSTEMI (non-ST elevated myocardial infarction) (10) Moderate to severe pulmonary hypertension (11) Asthma exacerbation (12) Abnormal LFTs Assessment & Plan: afebrile, HD stable labs noted lft's elevated US reviewed exam benign gb likely reactive from underlying pathology unlikely cholecystitis clinically fluid overload trend labs will monitor exam clinically covid + prognosis guarded cxr reviewed on abx worsening plan repeat US - noted cannot get hida given covid labs noted worsening leukocytosis Gallbladder demonstrates wall thickening and wall edema, gallbladder wall measuring up to 6 mm thick. There are gallstones. Sonographic Escoto's sign is negative. Common bile duct measures 3 mm in diameter. No intrahepatic biliary ductal dilatation. Liver demonstrates normal echogenicity, no focal abnormality. Portal vein and hepatic veins are patent. Pancreas is unremarkable. Spleen is unremarkable. Left kidney measures 9.2 cm in length. Right kidney measures 9.9 cm length. Both kidneys demonstrate normal echogenicity. There is no hydronephrosis. Small cyst is seen in the right kidney. . Abdominal aorta was not imaged . There is trace ascites. There is a small right pleural effusion incidentally noted Impression: Small right pleural effusion. Trace ascites Cholelithiasis. Gallbladder wall thickening may be related to hemodynamic factors causing the pleural fluid and ascites, but could also indicate acute cholecystitis. Consider nuclear medicine hepatobiliary scan if there is high clinical suspicion. Negative for dilated bile ducts Small right renal cyst incidentally noted (13) Acute respiratory failure with hypoxia Assessment & Plan: s/p trach discussed with family comfortable weaning Quentin Sanchez Jun 03, 2020 17:20
--- NOTE | 2020-06-03 18:02 | General Progress Note ---
Subjective ROS Limited/Unobtainable: No Constitutional: Reports: malaise, weakness HEENT: Reports: no symptoms Cardiovascular: Reports: no symptoms Respiratory: Reports: shortness of breath, sputum Gastrointestinal/Abdominal: Reports: difficulty swallowing Genitourinary: Reports: no symptoms Neurologic/Psychiatric: Reports: pre-existing deficit Endocrine: Reports: no symptoms Hematologic/Lymphatic: Reports: no symptoms Allergies: Coded Allergies: CIPROFLOXACIN (Verified Allergy, Unknown, 09/27/17) All Systems: reviewed and negative except above Subjective no events. remains on the vent. no distress. mild secretions. has diarrhea again. +rectal tube. cxr noted- persistent migel infiltrates. tolerating NGT feeds. Objective Last 24 Hour Vital Signs Date Time Temp Pulse Resp B/P (MAP) Pulse Ox O2 Delivery O2 Flow Rate FiO2 06/03/20 16:00 40 06/03/20 16:00 Mechanical Ventilator Mechanical Ventilator 06/03/20 12:04 Mechanical Ventilator Mechanical Ventilator 06/03/20 12:04 40 06/03/20 12:00 114 97/49 06/03/20 12:00 115 06/03/20 11:58 98.7 114 20 97/49 (65) 100 06/03/20 11:10 115 16 100 Mechanical Ventilator 30 115 16 40 06/03/20 08:00 40 06/03/20 08:00 Mechanical Ventilator Mechanical Ventilator 06/03/20 08:00 99.4 115 20 109/49 (69) 100 06/03/20 07:44 116 06/03/20 07:10 112 14 100 Mechanical Ventilator 30 113 16 40 06/03/20 06:00 108 97/48 06/03/20 04:00 Mechanical Ventilator Mechanical Ventilator 06/03/20 04:00 40 06/03/20 04:00 99.0 113 99/48 (65) 06/03/20 04:00 118 06/03/20 03:34 119 22 30 06/03/20 00:00 99.1 119 98/55 (69) 06/03/20 00:00 119 98/55 06/03/20 00:00 122 06/03/20 00:00 Mechanical Ventilator Mechanical Ventilator 06/02/20 23:11 124 23 30 06/02/20 20:00 98.6 117 103/53 (70) 06/02/20 20:00 Mechanical Ventilator Mechanical Ventilator 06/02/20 20:00 40 06/02/20 19:42 126 06/02/20 19:35 118 18 30 Intake and Output 06/02/20 06/03/20 19:00 07:00 Intake Total 780 ml 775 ml Output Total 1100 ml Balance -320 ml 775 ml Free Water 300 ml 375 ml Tube Feeding 480 ml 400 ml Output Urine Total 1000 ml Stool Total 100 ml Laboratory Tests 06/03/20 00:16: POC Whole Blood Glucose [Pending] 06/03/20 03:05: White Blood Count 8.7, Red Blood Count 3.41L, Hemoglobin 9.3L, Hematocrit 27.8L, Mean Corpuscular Volume 81, Mean Corpuscular Hemoglobin 27.3, Mean Corpuscular Hemoglobin Concent 33.6, Red Cell Distribution Width 16.0H, Platelet Count 313, Mean Platelet Volume 6.4L, Neutrophils (%) (Auto) 66.5, Lymphocytes (%) (Auto) 16.9L, Monocytes (%) (Auto) 13.3H, Eosinophils (%) (Auto) 1.8, Basophils (%) (Auto) 1.5, Prothrombin Time 12.6H, Prothromb Time International Ratio 1.2H, Activated Partial Thromboplast Time 30, Sodium Level 137, Potassium Level 3.4L, Chloride Level 101, Carbon Dioxide Level 27, Anion Gap 9, Blood Urea Nitrogen 58H, Creatinine 1.6H, Estimat Glomerular Filtration Rate 37.6, Glucose Level 111H, Calcium Level 7.2L, Total Bilirubin 0.5, Direct Bilirubin 0.2, Aspartate Amino Transf (AST/SGOT) 46H, Alanine Aminotransferase (ALT/SGPT) 41, Alkaline Phosphatase 244H, Pro-B-Type Natriuretic Peptide 23784D, Total Protein 5.6L, Albumin 0.7L 06/03/20 05:45: POC Whole Blood Glucose [Pending] 06/03/20 11:37: POC Whole Blood Glucose 111H Height (Feet): 5 Height (Inches): 3.00 Weight (Pounds): 174 Objective General Appearance: WD/WN, no apparent distress, alert. 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 grossly normal, alert, oriented x 3, responsive Skin: normal pigmentation Lymphatic: normal anterior cervical (L), normal anterior cervical (R) Assessment/Plan Problem List: (1) Pulmonary fibrosis ICD Codes: J84.10 - Pulmonary fibrosis, unspecified SNOMED: 28160995 (2) History of asthma ICD Codes: Z87.09 - Personal history of other diseases of the respiratory system SNOMED: 205016112 (3) Asthma ICD Codes: J45.909 - Unspecified asthma, uncomplicated SNOMED: 435954094 (4) NSTEMI (non-ST elevated myocardial infarction) ICD Codes: I21.4 - Non-ST elevation (NSTEMI) myocardial infarction SNOMED: 033961384 (5) Elevated troponin ICD Codes: R79.89 - Other specified abnormal findings of blood chemistry SNOMED: 924074177, 252852105, 696225599 (6) COPD (chronic obstructive pulmonary disease) ICD Codes: J44.9 - Chronic obstructive pulmonary disease, unspecified SNOMED: 08393466 (7) Atrial fibrillation with RVR ICD Codes: I48.91 - Unspecified atrial fibrillation SNOMED: 081289830380631 (8) Community acquired pneumonia ICD Codes: J18.9 - Pneumonia, unspecified organism SNOMED: 832657293 Status: stable Assessment/Plan: vent support resp rx and suctioning as needed NGT feeds GT per GI Po levofloxacin turn q2 skin care imodium for diarrhea dvt/stress ulcer prophylaxis remains gaurded Bradford Linn MD Jun 03, 2020 18:02
--- NOTE | 2020-06-03 19:30 | NUR ---
NURSE NOTES: Received pt and report from DAMIAN Oconnell. Observed pt resting in bed with both eyes open. Pt is A/Ox2. electronic device monitor is in placed; pt is ST (115 bpm). IV site intact, asymptomatic, and patent. Pt has a Shiley 8.0 vented; AC 14, TV 500, PEEP 5, FiO2 40%. Pt's O2 sat is 100%. Pt has NGT on Rt nare; running Vital AF 1.2 @40cc/hr; no residual noted. Bed is in the lowest position and locked. Call light and bedside table is within reach. No signs/symptoms of acute distress noted. Will continue plan of care.
--- NOTE | 2020-06-03 19:33 | NUR ---
NURSE HAND-OFF REPORT: Important Events on Shift: elevated bnp, MD aware. Patient Status: stable condition. Diet: tube feeding Pending Orders: Pending Results/Labs: Pending MD notification: Latest Vital Signs: Temperature 98.4 , Pulse 119 , B/P 112 /58 , Respiratory Rate 16 , O2 SAT 100 , Mechanical Ventilator, O2 Flow Rate 4.0 . Vital Sign Comment: EKG Rhythm: Sinus Tachycardia Rhythm change?: N MD Notified?: Tracy Perez MD Response: Order Received& Read Back Latest Lechuga Fall Score: 50 Fall Risk: High Risk Safety Measures: Call light Within Reach, Bed Alarm Zone 1, Side Rails Side Rails x3, Bed position Low and Locked. Fall Precautions: Yellow Socks Yellow Gown Door Sign Patient Fall Education Report given to Sharmaine SALGADO.
[2020-06-03 20:00] VITALS: BP 113/58
--- NOTE | 2020-06-03 20:19 | General Progress Note ---
Subjective Allergies: Coded Allergies: CIPROFLOXACIN (Verified Allergy, Unknown, 09/27/17) Subjective Above noted d/w Daughter re PEG d/w cardiology re tachycardia and BP Objective Last 24 Hour Vital Signs Date Time Temp Pulse Resp B/P (MAP) Pulse Ox O2 Delivery O2 Flow Rate FiO2 06/03/20 18:41 119 112/58 06/03/20 16:00 98.4 116 16 114/54 (74) 100 06/03/20 16:00 40 06/03/20 16:00 Mechanical Ventilator Mechanical Ventilator 06/03/20 15:40 119 17 100 Mechanical Ventilator 30 119 17 40 06/03/20 15:20 116 06/03/20 12:04 Mechanical Ventilator Mechanical Ventilator 06/03/20 12:04 40 06/03/20 12:00 114 97/49 06/03/20 12:00 115 06/03/20 11:58 98.7 114 20 97/49 (65) 100 06/03/20 11:10 115 16 100 Mechanical Ventilator 30 115 16 40 06/03/20 08:00 40 06/03/20 08:00 Mechanical Ventilator Mechanical Ventilator 06/03/20 08:00 99.4 115 20 109/49 (69) 100 06/03/20 07:44 116 06/03/20 07:10 112 14 100 Mechanical Ventilator 30 113 16 40 06/03/20 06:00 108 97/48 06/03/20 04:00 Mechanical Ventilator Mechanical Ventilator 06/03/20 04:00 40 06/03/20 04:00 99.0 113 99/48 (65) 06/03/20 04:00 118 06/03/20 03:34 119 22 30 06/03/20 00:00 99.1 119 98/55 (69) 06/03/20 00:00 119 98/55 06/03/20 00:00 122 06/03/20 00:00 Mechanical Ventilator Mechanical Ventilator 06/02/20 23:11 124 23 30 06/02/20 20:00 98.6 117 103/53 (70) 06/02/20 20:00 Mechanical Ventilator Mechanical Ventilator 06/02/20 20:00 40 l Intake and Output 06/02/20 06/03/20 19:00 07:00 Intake Total 780 ml 775 ml Output Total 1100 ml Balance -320 ml 775 ml Free Water 300 ml 375 ml Tube Feeding 480 ml 400 ml Output Urine Total 1000 ml Stool Total 100 ml Laboratory Tests 06/03/20 00:16: POC Whole Blood Glucose [Pending] 06/03/20 03:05: White Blood Count 8.7, Red Blood Count 3.41L, Hemoglobin 9.3L, Hematocrit 27.8L, Mean Corpuscular Volume 81, Mean Corpuscular Hemoglobin 27.3, Mean Corpuscular Hemoglobin Concent 33.6, Red Cell Distribution Width 16.0H, Platelet Count 313, Mean Platelet Volume 6.4L, Neutrophils (%) (Auto) 66.5, Lymphocytes (%) (Auto) 16.9L, Monocytes (%) (Auto) 13.3H, Eosinophils (%) (Auto) 1.8, Basophils (%) (Auto) 1.5, Prothrombin Time 12.6H, Prothromb Time International Ratio 1.2H, Activated Partial Thromboplast Time 30, Sodium Level 137, Potassium Level 3.4L, Chloride Level 101, Carbon Dioxide Level 27, Anion Gap 9, Blood Urea Nitrogen 58H, Creatinine 1.6H, Estimat Glomerular Filtration Rate 37.6, Glucose Level 111H, Calcium Level 7.2L, Total Bilirubin 0.5, Direct Bilirubin 0.2, Aspartate Amino Transf (AST/SGOT) 46H, Alanine Aminotransferase (ALT/SGPT) 41, Alkaline Phosphatase 244H, Pro-B-Type Natriuretic Peptide 30167I, Total Protein 5.6L, Albumin 0.7L 06/03/20 05:45: POC Whole Blood Glucose [Pending] 06/03/20 11:37: POC Whole Blood Glucose 111H 06/03/20 18:39: POC Whole Blood Glucose 113H Height (Feet): 5 Height (Inches): 3.00 Weight (Pounds): 174 Objective Elderly AA woman exam limited due to COVID isolation comfortable appearing (+) NG Feeding tube (+) trach tachycardic and periodic hypotension Assessment/Plan Status: stable Assessment/Plan: Assessment - Transaminitis, COVID-19 vs GB disease - Gallstones - Resp failure - s/p trach - Dysphagia - NGT - CHF - Pulm HTN - Arrhythmia and periodic hypotension - HR 117 - 125 - Renal failure Recommendations - monitor LFT - Continue TF - await optimiziation of cardiac parameters - Abx - anticoagulation with Lovenox Khorrami,Payman MD Jun 03, 2020 20:19
[2020-06-04] VITALS: BP 104/56
--- NOTE | 2020-06-04 00:17 | Cardiology Progress Note ---
Subjective DATE OF SERVICE: Jun 03, 2020 Condition remains critical; patient remains on [facility] ventilation - failed wean, and now s/p trach. Monitor: PAFib with persisting RVR and rare nonsustained VTach. Otherwise sinus tachycardia. BP range improved, but still with low episodes. CXR (06/02) reviewed: bilateral infiltrates with left pl eff'n. ICU logs and cardiology care plan reviewed and updated Objective Last 24 Hour Vital Signs Date Time Temp Pulse Resp B/P (MAP) Pulse Ox O2 Delivery O2 Flow Rate FiO2 06/04/20 00:00 Mechanical Ventilator Mechanical Ventilator 06/03/20 23:30 108 17 40 06/03/20 20:00 98.8 115 17 113/58 (76) 100 06/03/20 20:00 Mechanical Ventilator Mechanical Ventilator 06/03/20 20:00 120 06/03/20 20:00 40 06/03/20 19:30 120 16 40 06/03/20 18:41 119 112/58 06/03/20 16:00 98.4 116 16 114/54 (74) 100 06/03/20 16:00 40 06/03/20 16:00 Mechanical Ventilator Mechanical Ventilator 06/03/20 15:40 119 17 100 Mechanical Ventilator 30 119 17 40 06/03/20 15:20 116 06/03/20 12:04 Mechanical Ventilator Mechanical Ventilator 06/03/20 12:04 40 06/03/20 12:00 114 97/49 06/03/20 12:00 115 06/03/20 11:58 98.7 114 20 97/49 (65) 100 06/03/20 11:10 115 16 100 Mechanical Ventilator 30 115 16 40 06/03/20 08:00 40 06/03/20 08:00 Mechanical Ventilator Mechanical Ventilator 06/03/20 08:00 99.4 115 20 109/49 (69) 100 06/03/20 07:44 116 06/03/20 07:10 112 14 100 Mechanical Ventilator 30 113 16 40 06/03/20 06:00 108 97/48 06/03/20 04:00 Mechanical Ventilator Mechanical Ventilator 06/03/20 04:00 40 06/03/20 04:00 99.0 113 99/48 (65) 06/03/20 04:00 118 06/03/20 03:34 119 22 30 ROS: unchanged from my eval of 05/03/20 HEENT: Orally intubated, Mechanically Ventilated, Thin secretions ET Tube RHYTHM: Afib LUNGS: no accessory muscle use, expiratory wheezing, diminished breath sounds CARDIAC: normal S1 and S2, no murmur, irregularly irregular ABDOMEN: normal bowel sounds, non tender, soft, no organomegaly EXTREMITIES: no calf tenderness, +1 edema Laboratory Tests Test 06/03/20 00:16 06/03/20 03:05 06/03/20 05:45 06/03/20 11:37 POC Whole Blood Glucose Pending Pending 111 MG/DL (74-106) H White Blood Count 8.7 K/UL (4.8-10.8) Red Blood Count 3.41 M/UL (4.20-5.40) L Hemoglobin 9.3 G/DL (12.0-16.0) L Hematocrit 27.8 % (37.0-47.0) L Mean Corpuscular Volume 81 FL (80-99) Mean Corpuscular Hemoglobin 27.3 PG (27.0-31.0) Mean Corpuscular Hemoglobin Concent 33.6 G/DL (32.0-36.0) Red Cell Distribution Width 16.0 % (11.6-14.8) H Platelet Count 313 K/UL (150-450) Mean Platelet Volume 6.4 FL (6.5-10.1) L Neutrophils (%) (Auto) 66.5 % (45.0-75.0) Lymphocytes (%) (Auto) 16.9 % (20.0-45.0) L Monocytes (%) (Auto) 13.3 % (1.0-10.0) H Eosinophils (%) (Auto) 1.8 % (0.0-3.0) Basophils (%) (Auto) 1.5 % (0.0-2.0) Prothrombin Time 12.6 SEC (9.30-11.50) H Prothromb Time International Ratio 1.2 (0.9-1.1) H Activated Partial Thromboplast Time 30 SEC (23-33) Sodium Level 137 MMOL/L (136-145) Potassium Level 3.4 MMOL/L (3.5-5.1) L Chloride Level 101 MMOL/L (98-107) Carbon Dioxide Level 27 MMOL/L (21-32) Anion Gap 9 mmol/L (5-15) Blood Urea Nitrogen 58 mg/dL (7-18) H Creatinine 1.6 MG/DL (0.55-1.30) H Estimat Glomerular Filtration Rate 37.6 mL/min (>60) Glucose Level 111 MG/DL (74-106) H Calcium Level 7.2 MG/DL (8.5-10.1) L Total Bilirubin 0.5 MG/DL (0.2-1.0) Direct Bilirubin 0.2 MG/DL (0.0-0.3) Aspartate Amino Transf (AST/SGOT) 46 U/L (15-37) H Alanine Aminotransferase (ALT/SGPT) 41 U/L (12-78) Alkaline Phosphatase 244 U/L (46-116) H Pro-B-Type Natriuretic Peptide 18300 pg/mL (0-125) H Total Protein 5.6 G/DL (6.4-8.2) L Albumin 0.7 G/DL (3.4-5.0) L Test 06/03/20 18:39 06/03/20 23:31 POC Whole Blood Glucose 113 MG/DL (74-106) H Pending Assessment/Plan Assessment/Plan Acute on chronic respiratory acidosis Worsening anemia Acute respiratory failure - s/p trach. Shock LE edema due to severe pulmonary hypertension and right heart strain COPD exacerb with active bronchospasm Lactic acidosis COVID 19 PNA Acute on chr renal failure Chronic systolic/diastolic CHF Pulmonary fibrosis with chronic hypoxia Paroxysmal AFib with RVR Hx Multifocal atrial arrhythmias Pulmonary HTN - severe Hx NSVTach Severe protein/calorie malnutrition Acute myocardial ischemia Resolving transaminitis CRITICAL & GUARDED PRBC transfusion for hb below 7gm/dl Vent support with on-going weaning efforts following trach Diltiazem dose titrations based on ventricular rate and BP parameters. Steroids per pulmonary Add digoxin for add'l rate control and inotropy, once renal fxn improves Hypotonic IVF until free water deficit corrected Full anticoagulation for cardioembolic prophyl. Isolation Anti-viral rx per ID Monitor liver fxn EGD and PEG once better rate control achieved. Simone Perez MD Jun 04, 2020 00:17
--- NOTE | 2020-06-04 00:21 | NUR ---
NURSE NOTES: Observed pt awake in bed. Pt seems to be less anxious. No respiratory distress noted.
[2020-06-04] MEDS: dilTIAZem HCl 60mg tab NG SCH ×4 (00:44→17:21)
[2020-06-04 04:00] VITALS: BP 97/47
[2020-06-04] MEDS: NovoLOG Insulin Flexpen SUBQ SCH ×4 (06:00→18:00)
--- NOTE | 2020-06-04 07:05 | NUR ---
NURSE NOTES: Pt's COVID-19 PCR swab came back negative this morning at 0631. Dr. Linn made aware while making rounds.
--- NOTE | 2020-06-04 07:14 | General Progress Note ---
Subjective ROS Limited/Unobtainable: No Constitutional: Reports: malaise, weakness HEENT: Reports: no symptoms Cardiovascular: Reports: no symptoms Respiratory: Reports: cough, shortness of breath, sputum Gastrointestinal/Abdominal: Reports: difficulty swallowing Genitourinary: Reports: no symptoms Neurologic/Psychiatric: Reports: no symptoms Endocrine: Reports: no symptoms Hematologic/Lymphatic: Reports: no symptoms Allergies: Coded Allergies: CIPROFLOXACIN (Verified Allergy, Unknown, 09/27/17) All Systems: reviewed and negative except above Subjective no events. remains on the vent. no distress. mild secretions. decreased diarrhea. +rectal tube. cxr noted- persistent migel infiltrates. tolerating NGT feeds. covid neg Objective Last 24 Hour Vital Signs Date Time Temp Pulse Resp B/P (MAP) Pulse Ox O2 Delivery O2 Flow Rate FiO2 06/04/20 06:00 110 98/49 06/04/20 04:00 40 06/04/20 04:00 97.5 108 17 97/47 (64) 100 06/04/20 04:00 112 06/04/20 04:00 Mechanical Ventilator Mechanical Ventilator 06/04/20 03:24 106 14 40 06/04/20 00:44 112 104/56 06/04/20 00:00 Mechanical Ventilator Mechanical Ventilator 06/04/20 00:00 97 06/04/20 00:00 40 06/04/20 00:00 98.7 111 19 104/56 (72) 100 06/03/20 23:30 108 17 40 06/03/20 20:00 98.8 115 17 113/58 (76) 100 06/03/20 20:00 Mechanical Ventilator Mechanical Ventilator 06/03/20 20:00 120 06/03/20 20:00 40 06/03/20 19:30 120 16 40 06/03/20 18:41 119 112/58 06/03/20 16:00 98.4 116 16 114/54 (74) 100 06/03/20 16:00 40 06/03/20 16:00 Mechanical Ventilator Mechanical Ventilator 06/03/20 15:40 119 17 100 Mechanical Ventilator 30 119 17 40 06/03/20 15:20 116 06/03/20 12:04 Mechanical Ventilator Mechanical Ventilator 06/03/20 12:04 40 06/03/20 12:00 114 97/49 06/03/20 12:00 115 06/03/20 11:58 98.7 114 20 97/49 (65) 100 06/03/20 11:10 115 16 100 Mechanical Ventilator 30 115 16 40 06/03/20 08:00 40 06/03/20 08:00 Mechanical Ventilator Mechanical Ventilator 06/03/20 08:00 99.4 115 20 109/49 (69) 100 06/03/20 07:44 116 Intake and Output 06/03/20 06/04/20 18:59 06:59 Intake Total 980 ml Output Total 900 ml 1050 ml Balance -900 ml -70 ml Free Water 500 ml Tube Feeding 480 ml Output Urine Total 900 ml 1000 ml Stool Total 50 ml Laboratory Tests 06/03/20 11:37: POC Whole Blood Glucose 111H 06/03/20 18:39: POC Whole Blood Glucose 113H 06/03/20 23:31: POC Whole Blood Glucose [Pending] 06/04/20 06:01: POC Whole Blood Glucose [Pending] Height (Feet): 5 Height (Inches): 3.00 Weight (Pounds): 174 Objective General Appearance: WD/WN, no apparent distress, alert. orally intubated EENT: PERRL/EOMI Neck: non-tender, normal alignment, supple Cardiovascular: normal rate, regular rhythm Respiratory/Chest: chest wall non-tender, lungs clear, normal breath sounds, no respiratory distress, no accessory muscle use Abdomen: normal bowel sounds, non tender, soft, no organomegaly Edema: no edema noted Arm (L), no edema noted Arm (R) Neurologic: system support specialist II-XII grossly normal, alert, oriented x 3, responsive Skin: normal pigmentation Lymphatic: normal anterior cervical (L), normal anterior cervical (R) Assessment/Plan Problem List: (1) Pulmonary fibrosis ICD Codes: J84.10 - Pulmonary fibrosis, unspecified SNOMED: 43765798 (2) History of asthma ICD Codes: Z87.09 - Personal history of other diseases of the respiratory system SNOMED: 430907580 (3) Asthma ICD Codes: J45.909 - Unspecified asthma, uncomplicated SNOMED: 491194975 (4) NSTEMI (non-ST elevated myocardial infarction) ICD Codes: I21.4 - Non-ST elevation (NSTEMI) myocardial infarction SNOMED: 461867718 (5) Elevated troponin ICD Codes: R79.89 - Other specified abnormal findings of blood chemistry SNOMED: 075701428, 503714506, 855488760 (6) COPD (chronic obstructive pulmonary disease) ICD Codes: J44.9 - Chronic obstructive pulmonary disease, unspecified SNOMED: 04624302 (7) Atrial fibrillation with RVR ICD Codes: I48.91 - Unspecified atrial fibrillation SNOMED: 643433718028693 (8) Community acquired pneumonia ICD Codes: J18.9 - Pneumonia, unspecified organism SNOMED: 337082754 Status: stable Assessment/Plan: vent support resp rx and suctioning as needed NGT feeds GT per GI Po levofloxacin turn q2 skin care imodium for diarrhea dvt/stress ulcer prophylaxis remains gaurded will d/w Dtr GT again Bradford Linn MD Jun 04, 2020 07:14
[2020-06-04] MEDS: Ipratropium Bromide Inhaler INH SCH ×4 (07:40→19:20)
--- NOTE | 2020-06-04 07:44 | NUR ---
NURSE HAND-OFF REPORT: Important Events on Shift: Pt's COVID-19 PCR swabs came back negative. Dr. Linn made aware while making rounds. Endorsed to DAMIAN Payan. Spoke to daughterHeike whom said she has second thoughts about PEG placement and will call Dr. Linn today to speak to him. Dr. Linn made aware while making rounds. Patient Status: Stable Diet: Vital AF @40cc/hr Pending Orders: N Pending Results/Labs: AM Labs Pending MD notification: ID MD to be notify that pt is now negative for COVID-19 Latest Vital Signs: Temperature 97.5 , Pulse 110 , B/P 98 /49 , Respiratory Rate 17 , O2 SAT 100 , Mechanical Ventilator, O2 Flow Rate 4.0 . EKG Rhythm: Sinus Tachycardia Rhythm change?: N Latest Lechuga Fall Score: 50 Fall Risk: High Risk Safety Measures: Call light Within Reach, Bed Alarm Zone 1, Side Rails Side Rails x3, Bed position Low and Locked. Fall Precautions: Yellow Socks Yellow Gown Door Sign Patient Fall Education Report given to DAMIAN Payan.
--- NOTE | 2020-06-04 07:45 | NUR ---
NURSE NOTES: Report received from Epifanio SALGADO.Pt asleep noted no resp distress ,with trach tube to vent ,ordered vent settings tolerated,no signs of pain or discomfort,S-Tach on the monitor,GTF Vital AF 1.2 at 40 ml /hr no residual noted,[place] cath draining yellow urine,Rectal tube in placed skin warm and edematous,LT arm with weeping skin,elevated on pillows,SR up x2 HOB elevated ,bed lock in lowest position,will continue with plans of care.
[2020-06-04 08:00] VITALS: BP 95/55
--- NOTE | 2020-06-04 08:35 | Pulmonology Progress Note ---
Subjective ROS Limited/Unobtainable: Yes Constitutional: Reports: other - dosen,t feel good Musculoskeletal: Denies: pain Allergies: Coded Allergies: CIPROFLOXACIN (Verified Allergy, Unknown, 09/27/17) All Systems: reviewed and negative except above Subjective on vent- awaiting gt pulse rate still elevated comfortable COVID- reduced LOC Objective Last 24 Hour Vital Signs Date Time Temp Pulse Resp B/P (MAP) Pulse Ox O2 Delivery O2 Flow Rate FiO2 06/04/20 07:40 109 14 100 Mechanical Ventilator 40 109 14 40 06/04/20 06:00 110 98/49 06/04/20 04:00 40 06/04/20 04:00 97.5 108 17 97/47 (64) 100 06/04/20 04:00 112 06/04/20 04:00 Mechanical Ventilator Mechanical Ventilator 06/04/20 03:24 106 14 40 06/04/20 00:44 112 104/56 06/04/20 00:00 Mechanical Ventilator Mechanical Ventilator 06/04/20 00:00 97 06/04/20 00:00 40 06/04/20 00:00 98.7 111 19 104/56 (72) 100 06/03/20 23:30 108 17 40 06/03/20 20:00 98.8 115 17 113/58 (76) 100 06/03/20 20:00 Mechanical Ventilator Mechanical Ventilator 06/03/20 20:00 120 06/03/20 20:00 40 06/03/20 19:30 120 16 40 06/03/20 18:41 119 112/58 06/03/20 16:00 98.4 116 16 114/54 (74) 100 06/03/20 16:00 40 06/03/20 16:00 Mechanical Ventilator Mechanical Ventilator 06/03/20 15:40 119 17 100 Mechanical Ventilator 30 119 17 40 06/03/20 15:20 116 06/03/20 12:04 Mechanical Ventilator Mechanical Ventilator 06/03/20 12:04 40 06/03/20 12:00 114 97/49 06/03/20 12:00 115 06/03/20 11:58 98.7 114 20 97/49 (65) 100 06/03/20 11:10 115 16 100 Mechanical Ventilator 30 115 16 40 Intake and Output 06/03/20 06/04/20 18:59 06:59 Intake Total 980 ml Output Total 900 ml 1050 ml Balance -900 ml -70 ml Free Water 500 ml Tube Feeding 480 ml Output Urine Total 900 ml 1000 ml Stool Total 50 ml Objective deferred due to COVID Microbiology Date/Time Source Procedure Growth Status 06/02/20 01:00 Nasopharynx Coronavirus COVID-19 PCR ([facility]) - Final Complete Laboratory Tests 06/03/20 11:37: POC Whole Blood Glucose 111H 06/03/20 18:39: POC Whole Blood Glucose 113H 06/03/20 23:31: POC Whole Blood Glucose [Pending] 06/04/20 06:01: POC Whole Blood Glucose [Pending] Current Medications Medications (Trade) Dose Ordered Sig/Ghislaine Route PRN Reason Start Time Stop Time Status Last Admin Dose Admin Acetaminophen (Tylenol) 650 mg Q4H PRN NG Temp >100.5 05/25/20 16:15 06/24/20 16:14 06/01/20 22:17 Albuterol Sulfate (Proventil MDI) 2 puff Q4H PRN INH Shortness of Breath 05/11/20 20:00 08/01/20 11:59 05/13/20 10:30 Dextrose (Dextrose 50%) 25 ml Q30M PRN IV Hypoglycemia 05/22/20 18:30 08/20/20 18:29 Dextrose (Dextrose 50%) 50 ml Q30M PRN IV Hypoglycemia 05/22/20 18:30 08/20/20 18:29 Diltiazem HCl (Cardizem Tab) 60 mg EVERY 6 HOURS NG 06/01/20 12:00 06/30/20 17:59 06/04/20 00:44 Enoxaparin Sodium (Lovenox) 60 mg DAILY SUBQ 06/03/20 09:00 09/01/20 08:59 06/03/20 09:21 Insulin Aspart (NovoLOG) Q6HR SUBQ 05/23/20 00:00 08/20/20 20:59 06/02/20 00:00 Ipratropium [place] (Atrovent Inh) 1 puffs QIDRT INH 06/01/20 07:00 06/26/20 09:59 06/04/20 07:40 Levofloxacin (Levaquin) 250 mg DAILY NG 06/03/20 09:00 06/10/20 08:59 06/03/20 09:20 Loperamide HCl (Imodium) 2 mg Q6H PRN NG Diarrhea 05/26/20 17:45 06/25/20 17:44 06/03/20 15:04 Pantoprazole (Protonix) 40 mg DAILY IVP 05/28/20 09:00 06/27/20 08:59 06/03/20 09:20 Salmeterol Xinafoate/ Fluticasone (Advair 100/50 Diskus) 1 puffs BIDRT INH 05/11/20 22:00 08/09/20 21:59 05/16/20 09:02 Assessment/Plan Assessment/Plan Impression: COVID-19 Chronic obstructive pulmonary disease/Asthma Community acquired pneumonia Atrial fibrillation with RVR Elevated troponin Congestive heart Failure sinus tachycardia Hypoxemia transaminitis with gallstones acute on chronic renal failure acute respiratory failure hypotension tachycardia transaminitis MODS anemia Plan ID noted gi for GT/ rectal tube monitor vitals and control heart rate Vent support/and trach care feeds per dietary on lovenox Bronchodilator therapy GT needed Monitor labs/ renal follow up - renal function still reduced- Covid 19 negative nutrition and NG feeds reviewed care and optimize position change and monitor skin surgical follow up noted monitor protein levels and adjust will need placement when gt placed impression, plan, and exam edited and reviewed in detail care discussed with Aaron Bales MD Jun 04, 2020 08:35
[2020-06-04] MEDS: Pantoprazole Inj IVP SCH (09:08)
[2020-06-04] MEDS: Enoxaparin 60mg Inj SUBQ SCH (09:11)
[2020-06-04] MEDS: Wixela 100/50 Inhaler - 60 dose INH SCH ×2 (10:00→22:01)
--- NOTE | 2020-06-04 10:00 | NUR ---
NURSE NOTES: Ora care done,oral /tracheal secretions suctioned PRN,pulled repositioned to sides.
--- NOTE | 2020-06-04 10:03 | General Progress Note ---
Subjective Allergies: Coded Allergies: CIPROFLOXACIN (Verified Allergy, Unknown, 09/27/17) Subjective Above noted tolerating PO now COVID negative and in a single patient room d/w pulmonary Objective Last 24 Hour Vital Signs Date Time Temp Pulse Resp B/P (MAP) Pulse Ox O2 Delivery O2 Flow Rate FiO2 06/04/20 08:00 107 06/04/20 08:00 98.4 107 14 95/55 (68) 100 06/04/20 08:00 40 06/04/20 07:40 109 14 100 Mechanical Ventilator 40 109 14 40 06/04/20 06:00 110 98/49 06/04/20 04:00 40 06/04/20 04:00 97.5 108 17 97/47 (64) 100 06/04/20 04:00 112 06/04/20 04:00 Mechanical Ventilator Mechanical Ventilator 06/04/20 03:24 106 14 40 06/04/20 00:44 112 104/56 06/04/20 00:00 Mechanical Ventilator Mechanical Ventilator 06/04/20 00:00 97 06/04/20 00:00 40 06/04/20 00:00 98.7 111 19 104/56 (72) 100 06/03/20 23:30 108 17 40 06/03/20 20:00 98.8 115 17 113/58 (76) 100 06/03/20 20:00 Mechanical Ventilator Mechanical Ventilator 06/03/20 20:00 120 06/03/20 20:00 40 06/03/20 19:30 120 16 40 06/03/20 18:41 119 112/58 06/03/20 16:00 98.4 116 16 114/54 (74) 100 06/03/20 16:00 40 06/03/20 16:00 Mechanical Ventilator Mechanical Ventilator 06/03/20 15:40 119 17 100 Mechanical Ventilator 30 119 17 40 06/03/20 15:20 116 06/03/20 12:04 Mechanical Ventilator Mechanical Ventilator 06/03/20 12:04 40 06/03/20 12:00 114 97/49 06/03/20 12:00 115 06/03/20 11:58 98.7 114 20 97/49 (65) 100 06/03/20 11:10 115 16 100 Mechanical Ventilator 30 115 16 40 Intake and Output 06/03/20 06/04/20 18:59 06:59 Intake Total 980 ml Output Total 900 ml 1050 ml Balance -900 ml -70 ml Free Water 500 ml Tube Feeding 480 ml Output Urine Total 900 ml 1000 ml Stool Total 50 ml Laboratory Tests 06/03/20 11:37: POC Whole Blood Glucose 111H 06/03/20 18:39: POC Whole Blood Glucose 113H 06/03/20 23:31: POC Whole Blood Glucose [Pending] 06/04/20 06:01: POC Whole Blood Glucose [Pending] Height (Feet): 5 Height (Inches): 3.00 Weight (Pounds): 174 Objective Elderly AA woman exam limited due to COVID isolation comfortable appearing (+) NG Feeding tube (+) trach tachycardic and periodic hypotension Assessment/Plan Status: stable Assessment/Plan: Assessment - Transaminitis, COVID-19 vs GB disease - Gallstones - Resp failure - s/p trach - Dysphagia - NGT - CHF - Pulm HTN - Arrhythmia and periodic hypotension - HR 117 - 125 - Renal failure Recommendations - monitor LFT - Continue TF - Will place PEG once cardiac status optimized - Abx - anticoagulation with Lovenox Justine Torres MD Jun 04, 2020 10:03
[2020-06-04 12:00] VITALS: BP 116/56
--- NOTE | 2020-06-04 13:00 | NUR ---
NURSE NOTES: Pt stable no resp distress presented,pulled up and turned to sides.
--- NOTE | 2020-06-04 13:57 | Infectious Diseases Prog Note ---
Assessment/Plan Assessment/Plan A 1. COVID 19 pneumonia Test positive: 05/03 -05/09 2. renal failure 3. increased LFT 4. COPD 5. CHF, Diastolic & systolic 6. asthma 7. Cholelithiasis r/o cholecystitis 8. Hypoxic hypercapnic respiratory failure 9. Pseudomonas pneumonia 10. Sepsis 11. Funguria P 1. Continue LevaquinX 2 days 2. Will f/u cultures Subjective ROS Limited/Unobtainable: Yes Constitutional: Denies: fever Allergies: Coded Allergies: CIPROFLOXACIN (Verified Allergy, Unknown, 09/27/17) Objective Last 24 Hour Vital Signs Date Time Temp Pulse Resp B/P (MAP) Pulse Ox O2 Delivery O2 Flow Rate FiO2 06/04/20 12:40 116 116/56 06/04/20 12:00 98.2 116 15 116/56 (76) 100 06/04/20 12:00 40 06/04/20 12:00 Mechanical Ventilator Mechanical Ventilator 06/04/20 10:30 116 17 100 Mechanical Ventilator 40 116 17 40 06/04/20 08:00 107 06/04/20 08:00 98.4 107 14 95/55 (68) 100 06/04/20 08:00 40 06/04/20 08:00 Mechanical Ventilator Mechanical Ventilator 06/04/20 07:40 109 14 100 Mechanical Ventilator 40 109 14 40 06/04/20 06:00 110 98/49 06/04/20 04:00 40 06/04/20 04:00 97.5 108 17 97/47 (64) 100 06/04/20 04:00 112 06/04/20 04:00 Mechanical Ventilator Mechanical Ventilator 06/04/20 03:24 106 14 40 06/04/20 00:44 112 104/56 06/04/20 00:00 Mechanical Ventilator Mechanical Ventilator 06/04/20 00:00 97 06/04/20 00:00 40 06/04/20 00:00 98.7 111 19 104/56 (72) 100 06/03/20 23:30 108 17 40 06/03/20 20:00 98.8 115 17 113/58 (76) 100 06/03/20 20:00 Mechanical Ventilator Mechanical Ventilator 06/03/20 20:00 120 06/03/20 20:00 40 06/03/20 19:30 120 16 40 10/7/20 18:41 119 112/58 06/03/20 16:00 98.4 116 16 114/54 (74) 100 06/03/20 16:00 40 06/03/20 16:00 Mechanical Ventilator Mechanical Ventilator 06/03/20 15:40 119 17 100 Mechanical Ventilator 30 119 17 40 06/03/20 15:20 116 Height (Feet): 5 Height (Inches): 3.00 Weight (Pounds): 174 HEENT: status post trach Respiratory/Chest: other - on ventilator Cardiovascular: tachycardia Abdomen: soft, non tender, other - NG tube Neurologic/Psychiatric: aphasia Microbiology Date/Time Source Procedure Growth Status 06/02/20 01:00 Nasopharynx Coronavirus COVID-19 PCR ([facility]) - Final Complete Laboratory Tests Test 06/03/20 18:39 06/03/20 23:31 06/04/20 06:01 06/04/20 12:28 POC Whole Blood Glucose 113 MG/DL (74-106) H Pending Pending 95 MG/DL (74-106) Current Medications Medications (Trade) Dose Ordered Sig/Ghislaine Route PRN Reason Start Time Stop Time Status Last Admin Dose Admin Acetaminophen (Tylenol) 650 mg Q4H PRN NG Temp >100.5 05/25/20 16:15 06/24/20 16:14 06/01/20 22:17 Albuterol Sulfate (Proventil MDI) 2 puff Q4H PRN INH Shortness of Breath 05/11/20 20:00 08/01/20 11:59 05/13/20 10:30 Dextrose (Dextrose 50%) 25 ml Q30M PRN IV Hypoglycemia 05/22/20 18:30 08/20/20 18:29 Dextrose (Dextrose 50%) 50 ml Q30M PRN IV Hypoglycemia 05/22/20 18:30 08/20/20 18:29 Diltiazem HCl (Cardizem Tab) 60 mg EVERY 6 HOURS NG 06/01/20 12:00 06/30/20 17:59 06/04/20 12:40 Enoxaparin Sodium (Lovenox) 60 mg DAILY SUBQ 06/03/20 09:00 09/01/20 08:59 06/04/20 09:11 Insulin Aspart (NovoLOG) Q6HR SUBQ 05/23/20 00:00 08/20/20 20:59 06/02/20 00:00 Ipratropium [employer] (Atrovent Inh) 1 puffs QIDRT INH 06/01/20 07:00 06/26/20 09:59 06/04/20 07:40 Levofloxacin (Levaquin) 250 mg DAILY NG 06/03/20 09:00 06/10/20 08:59 06/04/20 09:12 Loperamide HCl (Imodium) 2 mg Q6H PRN NG Diarrhea 05/26/20 17:45 06/25/20 17:44 06/03/20 15:04 Pantoprazole (Protonix) 40 mg DAILY IVP 05/28/20 09:00 06/27/20 08:59 06/04/20 09:08 Salmeterol Xinafoate/ Fluticasone (Advair 100/50 Diskus) 1 puffs BIDRT INH 05/11/20 22:00 08/09/20 21:59 05/16/20 09:02 Freddy Woodson MD Jun 04, 2020 13:57
--- NOTE | 2020-06-04 15:25 | Surgery Progress Note ---
Surgery Progress Note Subjective Procedure Performed trach Symptoms: improved, pain absent, tolerating diet, passing flatus, BM Objective Last 24 Hour Vital Signs Date Time Temp Pulse Resp B/P (MAP) Pulse Ox O2 Delivery O2 Flow Rate FiO2 06/04/20 12:40 116 116/56 06/04/20 12:00 98.2 116 15 116/56 (76) 100 06/04/20 12:00 40 06/04/20 12:00 Mechanical Ventilator Mechanical Ventilator 06/04/20 10:30 116 17 100 Mechanical Ventilator 40 116 17 40 06/04/20 08:00 107 06/04/20 08:00 98.4 107 14 95/55 (68) 100 06/04/20 08:00 40 06/04/20 08:00 Mechanical Ventilator Mechanical Ventilator 06/04/20 07:40 109 14 100 Mechanical Ventilator 40 109 14 40 06/04/20 06:00 110 98/49 06/04/20 04:00 40 06/04/20 04:00 97.5 108 17 97/47 (64) 100 06/04/20 04:00 112 06/04/20 04:00 Mechanical Ventilator Mechanical Ventilator 06/04/20 03:24 106 14 40 06/04/20 00:44 112 104/56 06/04/20 00:00 Mechanical Ventilator Mechanical Ventilator 06/04/20 00:00 97 06/04/20 00:00 40 06/04/20 00:00 98.7 111 19 104/56 (72) 100 06/03/20 23:30 108 17 40 06/03/20 20:00 98.8 115 17 113/58 (76) 100 06/03/20 20:00 Mechanical Ventilator Mechanical Ventilator 06/03/20 20:00 120 06/03/20 20:00 40 06/03/20 19:30 120 16 40 06/03/20 18:41 119 112/58 06/03/20 16:00 98.4 116 16 114/54 (74) 100 06/03/20 16:00 40 06/03/20 16:00 Mechanical Ventilator Mechanical Ventilator 06/03/20 15:40 119 17 100 Mechanical Ventilator 30 119 17 40 I&O Intake and Output 06/03/20 06/04/20 19:00 07:00 Intake Total 165 ml 815 ml Output Total 900 ml 1050 ml Balance -735 ml -235 ml Free Water 125 ml 375 ml Tube Feeding 40 ml 440 ml Output Urine Total 900 ml 1000 ml Stool Total 50 ml Dressing: dry Wound: clean Cardiovascular: RSR Respiratory: clear, decreased breath sounds Abdomen: soft, non-tender, present bowel sounds Extremities: no edema, no tenderness, no cyanosis Laboratory Tests Test 06/03/20 18:39 06/03/20 23:31 06/04/20 06:01 06/04/20 12:28 POC Whole Blood Glucose 113 MG/DL (74-106) H Pending Pending 95 MG/DL (74-106) Plan Problems: (1) Elevated troponin (2) Atrial fibrillation with RVR (3) COVID-19 Assessment & Plan: ++ as per pulm and ID trach DAILY ESTIMATED NEEDS: Needs based on Critical Care, ARF/ 56kg abw 22-28 kcals/kg 1201-7458 total kcals 0.8-1.5 (increase w/ renal improvement) g protein/kg 45-84 g total protein 25-30 mL/kg 2187-6063 total fluid mLs NUTRITION DIAGNOSIS: * Altered nutrition related lab values r/t clinical status as evidenced by elev BUN(82), creat(3.8) trending up, critical ABG (low pH, elev CO2)-> now improved. * Swallowing difficulty R/T respiratory status as evidenced by s/p oral intubation, on OGT feeds. 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 ENTERAL NUTRITION RECOMMENDATIONS: Nepro @ 35ml/hr x 24 hrs to provide 840ml, 1512kcal, 68g prot, 610ml free water * W/ worsening renal fxn, rec to continue Nepro * As tolerated, increase goal rate to 35ml/hr x 24 hrs to meet 100% est kcal/prot needs ADDITIONAL RECOMMENDATIONS: 1) Calibrated bedscale wt 2) Monitor renal fxn and lytes, need to continue Nepro Creat trending up 3) Rec niss w/ solumedrol (4) Community acquired pneumonia (5) COPD (chronic obstructive pulmonary disease) (6) Pulmonary fibrosis (7) Asthma (8) History of asthma (9) NSTEMI (non-ST elevated myocardial infarction) (10) Moderate to severe pulmonary hypertension (11) Asthma exacerbation (12) Abnormal LFTs Assessment & Plan: afebrile, HD stable labs noted lft's elevated US reviewed exam benign gb likely reactive from underlying pathology unlikely cholecystitis clinically fluid overload trend labs will monitor exam clinically covid + prognosis guarded cxr reviewed on abx worsening plan repeat US - noted cannot get hida given covid labs noted worsening leukocytosis Gallbladder demonstrates wall thickening and wall edema, gallbladder wall measuring up to 6 mm thick. There are gallstones. Sonographic Escoto's sign is negative. Common bile duct measures 3 mm in diameter. No intrahepatic biliary ductal dilatation. Liver demonstrates normal echogenicity, no focal abnormality. Portal vein and hepatic veins are patent. Pancreas is unremarkable. Spleen is unremarkable. Left kidney measures 9.2 cm in length. Right kidney measures 9.9 cm length. Both kidneys demonstrate normal echogenicity. There is no hydronephrosis. Small cyst is seen in the right kidney. . Abdominal aorta was not imaged . There is trace ascites. There is a small right pleural effusion incidentally noted Impression: Small right pleural effusion. Trace ascites Cholelithiasis. Gallbladder wall thickening may be related to hemodynamic factors causing the pleural fluid and ascites, but could also indicate acute cholecystitis. Consider nuclear medicine hepatobiliary scan if there is high clinical suspicion. Negative for dilated bile ducts Small right renal cyst incidentally noted (13) Acute respiratory failure with hypoxia Assessment & Plan: s/p trach discussed with family comfortable weaning Quentin Sanchez Jun 04, 2020 15:25
[2020-06-04 16:00] VITALS: BP 109/59
--- NOTE | 2020-06-04 16:13 | Nephrology Progress Note ---
Assessment/Plan Plan MELODY resolving. MOF due to Covid 19 MOF. Subjective Subjective Confused Objective Objective Last 24 Hour Vital Signs Date Time Temp Pulse Resp B/P (MAP) Pulse Ox O2 Delivery O2 Flow Rate FiO2 06/04/20 12:40 116 116/56 06/04/20 12:00 98.2 116 15 116/56 (76) 100 06/04/20 12:00 40 06/04/20 12:00 Mechanical Ventilator Mechanical Ventilator 06/04/20 10:30 116 17 100 Mechanical Ventilator 40 116 17 40 06/04/20 08:00 107 06/04/20 08:00 98.4 107 14 95/55 (68) 100 06/04/20 08:00 40 06/04/20 08:00 Mechanical Ventilator Mechanical Ventilator 06/04/20 07:40 109 14 100 Mechanical Ventilator 40 109 14 40 06/04/20 06:00 110 98/49 06/04/20 04:00 40 06/04/20 04:00 97.5 108 17 97/47 (64) 100 06/04/20 04:00 112 06/04/20 04:00 Mechanical Ventilator Mechanical Ventilator 06/04/20 03:24 106 14 40 06/04/20 00:44 112 104/56 06/04/20 00:00 Mechanical Ventilator Mechanical Ventilator 06/04/20 00:00 97 06/04/20 00:00 40 06/04/20 00:00 98.7 111 19 104/56 (72) 100 06/03/20 23:30 108 17 40 06/03/20 20:00 98.8 115 17 113/58 (76) 100 06/03/20 20:00 Mechanical Ventilator Mechanical Ventilator 06/03/20 20:00 120 06/03/20 20:00 40 06/03/20 19:30 120 16 40 06/03/20 18:41 119 112/58 Intake and Output 06/03/20 06/04/20 19:00 07:00 Intake Total 165 ml 815 ml Output Total 900 ml 1050 ml Balance -735 ml -235 ml Free Water 125 ml 375 ml Tube Feeding 40 ml 440 ml Output Urine Total 900 ml 1000 ml Stool Total 50 ml Laboratory Tests 06/03/20 18:39: POC Whole Blood Glucose 113H 06/03/20 23:31: POC Whole Blood Glucose [Pending] 06/04/20 06:01: POC Whole Blood Glucose [Pending] 06/04/20 12:28: POC Whole Blood Glucose 95 Height (Feet): 5 Height (Inches): 3.00 Weight (Pounds): 174 Objective CV Tach +Irr Trach OK Lungs B Ronchi Abd SNT. BS + E +3 edema Ruth Coyne MD Jun 04, 2020 16:13
--- NOTE | 2020-06-04 16:16 | NUR ---
DISCHARGE PLANNING: NOTE 1333- REFERRAL SENT TO [facility] 1420- SILVERIO CONFIRMED THAT SHE RECEIVED CLINICALS 1615- F/U CALL PLACED TO SILVERIO AT [facility]. ADMISSIONS IS IN A MEETING AT THIS TIME. CM WILL CONTINUE TO F/U Addendum: 06/04/20 at 1752 by Thania Lovell CM ROOM 33B WAS PROVIDED AWARE Addendum: 06/05/20 at 0900 by Thania Lovell CM PT NEEDS A GT CURRENTLY HAS NGT
--- NOTE | 2020-06-04 17:00 | NUR ---
NURSE NOTES: Bed bath given,kept dry and clean,turned and repositioned to sides.
--- NOTE | 2020-06-04 19:26 | NUR ---
RESPIRATORY NOTE: Received pt on VOL AC 14, 500VT, 40%, PEEP +5. Pt is trach-dependent w/ a Cuffed, Shiley 8 tube. Pt is alert/awake, follows commands. B/S migel. rhonchi, sxn moderate amounts of thick/thin, pale-yellow to marks-yellow secretions. Vent plugged into red outlet, ambubag at bedside. Pt in no apparent distress at this time. Will continue plan of care.
--- NOTE | 2020-06-04 19:35 | NUR ---
NURSE NOTES: Received patient from DAMIAN Payan under the care of Dr. Jefferson for the admitting dx. of COPD excacerbation, and Covid (+) status. Patient noted with allergies to ciprofloxacin and full code status. On continuing isolation for Covid (+) status, although patient has tested negative for Covid on 06/02/20 and 06/04/20. Will have to follow up with MD regarding D/C of isolation precaution. Fall, and aspiration precaution observed and maintained at all times. Room safety check and ventilation safety check performed. No apparent distress or discomfort noted on patient. Will continue with current plan of care.
--- NOTE | 2020-06-04 19:42 | NUR ---
NURSE HAND-OFF REPORT: Important Events on Shift:N/A Patient Status: Stable Diet: Vital AF 1.2 at 40 ml/hr NGT Rt nare Pending Orders: N/A Pending Results/Labs:N/A Pending MD notification:N/A Latest Vital Signs: Temperature 98.5 , Pulse 117 , B/P 109 /59 , Respiratory Rate 16 , O2 SAT 100 , Mechanical Ventilator, O2 Flow Rate 4.0 . Vital Sign Comment: Stable EKG Rhythm: Sinus Tachycardia Rhythm change?: N Notified?: N MD Response: Order Received& Read Back Latest Lechuga Fall Score: 50 Fall Risk: High Risk Safety Measures: Call light Within Reach, Bed Alarm Zone 1, Side Rails Side Rails x3, Bed position Low and Locked. Fall Precautions: Yellow Socks Yellow Gown Door Sign Patient Fall Education Report given to Alex Tejada RN.
[2020-06-04 20:00] VITALS: BP 115/54
--- NOTE | 2020-06-04 20:00 | NUR ---
NURSE NOTES: Patient noted awake and alert x 3. Responsive with gestures and opens eyes spontaneously. Noted to have ST on the campus monitor, but otherwise benign. Has shiley 8 trach size with vent settings of AC-14, TV-500, FiO2-40%, PEEP-5. Patient appears to be tolerating vent settings well as saturation is noted to be 100% with no apparent signs of distress or discomfort at this time. NGT is patent, in place, and flushing well, with residuals noted to be 5cc. On Vital AF 1.2 at 40cc/hr and tolerating well. Patient is incontinent with mueller catheter and rectal tube present, intact, and draining well. R upper arm 20ga noted. IV site benign and no redness, irritation, or infiltration noted at this time. Will continue with current plan of care.
--- NOTE | 2020-06-04 22:00 | NUR ---
NURSE NOTES: Patient appears to be tolerating vent settings well as saturation is noted to be 100% with no apparent signs of distress or discomfort at this time. FLACC score of 0/10 noted. NGT is patent, in place, and flushing well, with no residuals noted. Oral care performed and patient tolerated procedure well. Patient is incontinent with mueller catheter and rectal tube present, intact, and draining well. Noted with clear straw urine. R upper arm 20ga noted. IV site benign and no redness, irritation, or infiltration noted at this time. Will continue with current plan of care.
[2020-06-05] VITALS (7 sets, daily range): BP systolic 91–118; BP diastolic 53–64
--- NOTE | 2020-06-05 | NUR ---
NURSE NOTES: Glucose check done and noted to be WNL. Insulin dose held, noted on EMR. Patient appears to be tolerating vent settings well as saturation is noted to be 100% with no apparent signs of distress or discomfort at this time. FLACC score of 0/10 noted. NGT is patent, in place, and flushing well, with no residuals noted. Oral care performed and patient tolerated procedure well. Patient is incontinent with mueller catheter and rectal tube present, intact, and draining well. Noted with clear straw urine. R upper arm 20ga noted. IV site benign and no redness, irritation, or infiltration noted at this time. Will continue with current plan of care.
[2020-06-05] MEDS: dilTIAZem HCl 60mg tab NG SCH (00:10)
--- NOTE | 2020-06-05 00:54 | Cardiology Progress Note ---
Subjective DATE OF SERVICE: Jun 04, 2020 Condition remains critical; patient remains on [facility] ventilation - failed wean, and now s/p trach. Monitor: PAFib with persisting RVR and rare nonsustained VTach. Otherwise sinus tachycardia. BP range improved, but still with low episodes. Diarrhea persists. CXR (06/02) reviewed: bilateral infiltrates with left pl eff'n. ICU logs and cardiology care plan reviewed and updated Objective Last 24 Hour Vital Signs Date Time Temp Pulse Resp B/P (MAP) Pulse Ox O2 Delivery O2 Flow Rate FiO2 06/05/20 00:10 116 115/54 06/05/20 00:00 114 06/05/20 00:00 40 06/05/20 00:00 Mechanical Ventilator Mechanical Ventilator 06/04/20 23:51 116 16 40 06/04/20 20:00 Mechanical Ventilator Mechanical Ventilator 06/04/20 20:00 40 06/04/20 20:00 98.4 118 18 115/54 (74) 100 06/04/20 19:32 116 06/04/20 19:22 117 16 100 Mechanical Ventilator 40 118 18 40 06/04/20 17:21 124 109/59 06/04/20 16:00 Mechanical Ventilator Mechanical Ventilator 06/04/20 16:00 124 06/04/20 16:00 40 06/04/20 16:00 98.5 117 15 109/59 (76) 100 06/04/20 14:30 124 19 100 Mechanical Ventilator 40 124 19 40 06/04/20 12:40 116 116/56 06/04/20 12:00 98.2 116 15 116/56 (76) 100 06/04/20 12:00 40 06/04/20 12:00 Mechanical Ventilator Mechanical Ventilator 06/04/20 10:30 116 17 100 Mechanical Ventilator 40 116 17 40 06/04/20 08:00 107 06/04/20 08:00 98.4 107 14 95/55 (68) 100 06/04/20 08:00 40 06/04/20 08:00 Mechanical Ventilator Mechanical Ventilator 06/04/20 07:40 109 14 100 Mechanical Ventilator 40 109 14 40 06/04/20 06:00 110 98/49 06/04/20 04:00 40 06/04/20 04:00 97.5 108 17 97/47 (64) 100 06/04/20 04:00 112 06/04/20 04:00 Mechanical Ventilator Mechanical Ventilator 06/04/20 03:24 106 14 40 ROS: unchanged from my eval of 05/03/20 HEENT: Orally intubated, Mechanically Ventilated, Thin secretions ET Tube RHYTHM: Afib LUNGS: no accessory muscle use, expiratory wheezing, diminished breath sounds CARDIAC: normal S1 and S2, no murmur, irregularly irregular ABDOMEN: normal bowel sounds, non tender, soft, no organomegaly EXTREMITIES: no calf tenderness, +1 edema Laboratory Tests Test 06/04/20 06:01 06/04/20 12:28 06/04/20 17:42 06/05/20 00:02 POC Whole Blood Glucose Pending 95 MG/DL (74-106) Pending 92 MG/DL (74-106) Microbiology Date/Time Source Procedure Growth Status 06/02/20 01:00 Nasopharynx Coronavirus COVID-19 PCR ([facility]) - Final Complete Assessment/Plan Assessment/Plan Acute on chronic respiratory acidosis Worsening anemia Acute respiratory failure - s/p trach. Shock LE edema due to severe pulmonary hypertension and right heart strain COPD exacerb with active bronchospasm Lactic acidosis COVID 19 PNA Acute on chr renal failure-improved Chronic systolic/diastolic CHF Pulmonary fibrosis with chronic hypoxia Paroxysmal AFib with RVR Hx Multifocal atrial arrhythmias Pulmonary HTN - severe Hx NSVTach Severe protein/calorie malnutrition Acute myocardial ischemia Resolving transaminitis CRITICAL & GUARDED PRBC transfusion for hb below 7gm/dl Vent support with on-going weaning efforts following trach Diltiazem dose titrations based on ventricular rate and BP parameters. Steroids per pulmonary Start digoxin for add'l rate control and inotropy today Hypotonic IVF until free water deficit corrected Full anticoagulation for cardioembolic prophyl. Isolation Anti-viral rx per ID Monitor liver fxn EGD and PEG once better rate control achieved. Simone Perez MD Jun 05, 2020 00:54
[2020-06-05] MEDS ORDERED: Digoxin 0.5mg/2ml Inj IVP SCH (01:30)
--- NOTE | 2020-06-05 02:00 | NUR ---
NURSE NOTES: Noted new orders from Dr. Perez, noted and carried out. Patient appears to be tolerating vent settings well as saturation is noted to be 100% with no apparent signs of distress or discomfort at this time. FLACC score of 0/10 noted. NGT is patent, in place, and flushing well, with no residuals noted. Oral care performed and patient tolerated procedure well. Patient is incontinent with mueller catheter and rectal tube present, intact, and draining well. Noted with clear straw urine. R upper arm 20ga noted. IV site benign and no redness, irritation, or infiltration noted at this time. Will continue with current plan of care.
--- NOTE | 2020-06-05 04:00 | NUR ---
NURSE NOTES: Patient is asleep but easily arousable. Able to make needs know with gestures and mouthing words. Patient appears to be tolerating vent settings well as saturation is noted to be 100% with no apparent signs of distress or discomfort at this time. FLACC score of 0/10 noted. NGT is patent, in place, and flushing well, with no residuals noted. Oral care performed and patient tolerated procedure well. Patient is incontinent with mueller catheter and rectal tube present, intact, and draining well. Noted with clear straw urine and some sediments. Will continue with current plan of care.
[2020-06-05 04:20] LABS: BASOPHILS % (AUTO) 2.4 % (0.0-2.0); EOSINOPHILS % (AUTO) 0.9 % (0.0-3.0); HEMATOCRIT 27.7 % (37.0-47.0); HEMOGLOBIN 9.2 G/DL (12.0-16.0); LYMPHOCYTES % (AUTO) 21.5 % (20.0-45.0); MEAN CORPUSCULAR VOLUME 81 FL (80-99); MONOCYTES % (AUTO) 14.5 % (1.0-10.0); NEUTROPHILS % (AUTO) 60.7 % (45.0-75.0); PLATELET COUNT 428 K/UL (150-450); RED BLOOD COUNT 3.41 M/UL (4.20-5.40); WHITE BLOOD COUNT 10.4 K/UL (4.8-10.8)
[2020-06-05 05:01] LABS: ALBUMIN 0.9 G/DL (3.4-5.0); ALBUMIN/GLOBULIN RATIO 0.2 (1.0-2.7); BILIRUBIN,TOTAL 0.4 MG/DL (0.2-1.0); CALCIUM 7.5 MG/DL (8.5-10.1); CREATININE 1.4 MG/DL (0.55-1.30); POTASSIUM 3.5 MMOL/L (3.5-5.1)
[2020-06-05] MEDS: dilTIAZem HCl 90mg tab NG SCH ×3 (05:45→17:31)
[2020-06-05] MEDS: NovoLOG Insulin Flexpen SUBQ SCH ×4 (05:46→17:31)
--- NOTE | 2020-06-05 06:00 | NUR ---
NURSE NOTES: Patient is awake and able to make needs know with gestures and mouthing words. Patient appears to be tolerating vent settings well as saturation is noted to be 100% with no apparent signs of distress or discomfort at this time. FLACC score of 0/10 noted. NGT is patent, in place, and flushing well, with no residuals noted. Oral care performed and patient tolerated procedure well. Patient is incontinent with mueller catheter and rectal tube present, intact, and draining well. Noted with clear straw urine and some sediments. Will continue with current plan of care.
--- NOTE | 2020-06-05 07:20 | NUR ---
NURSE HAND-OFF REPORT: Important Events on Shift: Patient remains stable. Patient Status: Stable Diet: NGT feeding Pending Orders: Pending Results/Labs: Pending MD notification: Latest Vital Signs: Temperature 99.1 , Pulse 126 , B/P 110 /64 , Respiratory Rate 23 , O2 SAT 100 , Mechanical Ventilator, O2 Flow Rate 4.0 . Vital Sign Comment: EKG Rhythm: Sinus Tachycardia Rhythm change?: N MD Notified?: Tracy Perez MD Response: Order Received& Read Back Latest Lechuga Fall Score: 35 Fall Risk: Medium Risk Safety Measures: Call light Within Reach, Bed Alarm Zone 1, Side Rails Side Rails x3, Bed position Low and Locked. Fall Precautions: Yellow Socks Yellow Gown Door Sign Patient Fall Education Report given to DAMIAN Hale.
[2020-06-05] MEDS: Ipratropium Bromide Inhaler INH SCH ×4 (07:34→18:15)
--- NOTE | 2020-06-05 07:43 | NUR ---
RD ASSESSMENT & RECOMMENDATIONS SEE CARE ACTIVITY FOR COMPLETE ASSESSMENT DAILY ESTIMATED NEEDS: Needs based on Critical Care, ARF/ 56kg abw 22-28 kcals/kg 8716-7109 total kcals 1-2 g protein/kg 56-112 g total protein 25-30 mL/kg 9895-9452 total fluid mLs NUTRITION DIAGNOSIS: * Altered nutrition related lab values r/t clinical status as evidenced by elev BUN(50 trend down), creat(2.0->4.0->1.4), low K (3.2-> wnl), critical ABG (low pH,elev CO2)-> now improved. * Swallowing difficulty R/T respiratory status as evidenced by s/p oral intubation, now s/p trach placement (05/29), remains on NGT feeds. CURRENT TF:VITAL AF 1.2 @ 40ml/hr x 24hrs ENTERAL NUTRITION RECOMMENDATIONS: Vital AF 1.2 @ 45ml/hr x 24 hrs to provide 1080ml, 1296kcal, 81g prot, 876ml free water * Okay to continue elemental TF formula of Vital while + diarrhea * Increase goal rate to 45ml/hr x 24 hrs to meet 100% est kcal/prot needs * HOB over 30 degrees/ water flush per MD ADDITIONAL RECOMMENDATIONS: 1) Calibrated bedscale wt: daily wts fluctuating 80's-> 70's-> 60's kg 2) Monitor renal fxn and lytes, need to resume renal TF -> Creat 2.0-> 4.0-> 1.4: improving, lytes wnl 3) Rec niss - now added, improved glycemic control 4) Probiotics for diarrhea . .
--- NOTE | 2020-06-05 08:21 | NUR ---
NURSE NOTES: During morning assessment, pt denies pain, did state she was cold and two additional blankets were given, NG-Tube is in place however the valve was left open and linnen changed, no residual from NG tube, it was flushed with 60 ml of H2O, no restraints, pt was repositioned, pt is semi-nonverbal, no s/s of distress or sob noted. IVs intact pt is is edematous bilateral upper and lower extremities.
--- NOTE | 2020-06-05 08:26 | Pulmonology Progress Note ---
Subjective ROS Limited/Unobtainable: Yes Constitutional: Denies: fever Musculoskeletal: Denies: pain Allergies: Coded Allergies: CIPROFLOXACIN (Verified Allergy, Unknown, 09/27/17) All Systems: reviewed and negative except above Subjective on vent- awaiting gt NSVT noted and PAF comfortable COVID- reduced LOC Objective Last 24 Hour Vital Signs Date Time Temp Pulse Resp B/P (MAP) Pulse Ox O2 Delivery O2 Flow Rate FiO2 06/05/20 08:16 40 06/05/20 08:14 Mechanical Ventilator Mechanical Ventilator 06/05/20 07:35 113 20 100 Mechanical Ventilator 40 116 27 40 06/05/20 05:45 104 99/55 06/05/20 04:00 Mechanical Ventilator Mechanical Ventilator 06/05/20 04:00 98.0 107 14 104/53 (70) 100 06/05/20 04:00 40 06/05/20 04:00 105 06/05/20 03:22 107 15 40 06/05/20 01:44 114 06/05/20 00:10 116 115/54 06/05/20 00:00 114 06/05/20 00:00 98.9 113 15 108/57 (74) 100 06/05/20 00:00 40 06/05/20 00:00 Mechanical Ventilator Mechanical Ventilator 06/04/20 23:51 116 16 40 06/04/20 20:00 Mechanical Ventilator Mechanical Ventilator 06/04/20 20:00 40 06/04/20 20:00 98.4 118 18 115/54 (74) 100 06/04/20 19:32 116 06/04/20 19:22 117 16 100 Mechanical Ventilator 40 118 18 40 06/04/20 17:21 124 109/59 06/04/20 16:00 Mechanical Ventilator Mechanical Ventilator 06/04/20 16:00 124 06/04/20 16:00 40 06/04/20 16:00 98.5 117 15 109/59 (76) 100 06/04/20 14:30 124 19 100 Mechanical Ventilator 40 124 19 40 06/04/20 12:40 116 116/56 06/04/20 12:00 98.2 116 15 116/56 (76) 100 06/04/20 12:00 40 06/04/20 12:00 Mechanical Ventilator Mechanical Ventilator 06/04/20 10:30 116 17 100 Mechanical Ventilator 40 116 17 40 Intake and Output 06/04/20 06/05/20 19:00 07:00 Intake Total 920 ml 590 ml Output Total 600 ml 2250 ml Balance 320 ml -1660 ml Free Water 200 ml 150 ml Tube Feeding 480 ml 440 ml Other 240 ml Output Urine Total 600 ml 2200 ml Stool Total 50 ml # Bowel Movements 50 Objective deferred due to COVID Laboratory Tests 06/04/20 12:28: POC Whole Blood Glucose 95 06/04/20 17:42: POC Whole Blood Glucose [Pending] 06/05/20 00:02: POC Whole Blood Glucose 92 06/05/20 03:25: White Blood Count 10.4, Red Blood Count 3.41L, Hemoglobin 9.2L, Hematocrit 27.7L , Mean Corpuscular Volume 81, Mean Corpuscular Hemoglobin 27.0, Mean Corpuscular Hemoglobin Concent 33.2, Red Cell Distribution Width 16.0H, Platelet Count 428, Mean Platelet Volume 5.5L, Neutrophils (%) (Auto) 60.7, Lymphocytes (%) (Auto) 21.5, Monocytes (%) (Auto) 14.5H, Eosinophils (%) (Auto) 0.9, Basophils (%) (Auto) 2.4H, Sodium Level 138, Potassium Level 3.5, Chloride Level 103, Carbon Dioxide Level 31, Anion Gap 4L, Blood Urea Nitrogen 50H, Creatinine 1.4H, Estimat Glomerular Filtration Rate 43.9, Glucose Level 116H, Calcium Level 7.5L, Total Bilirubin 0.4, Aspartate Amino Transf (AST/SGOT) 44H, Alanine Aminotransferase (ALT/SGPT) 30, Alkaline Phosphatase 257H, Total Protein 5.5L, Albumin 0.9L, Globulin 4.6, Albumin/Globulin Ratio 0.2L 06/05/20 05:45: POC Whole Blood Glucose 99 Current Medications Medications (Trade) Dose Ordered Sig/Ghislaine Route PRN Reason Start Time Stop Time Status Last Admin Dose Admin Acetaminophen (Tylenol) 650 mg Q4H PRN NG Temp >100.5 05/25/20 16:15 06/24/20 16:14 06/01/20 22:17 Albuterol Sulfate (Proventil MDI) 2 puff Q4H PRN INH Shortness of Breath 05/11/20 20:00 08/01/20 11:59 05/13/20 10:30 Dextrose (Dextrose 50%) 25 ml Q30M PRN IV Hypoglycemia 05/22/20 18:30 08/20/20 18:29 Dextrose (Dextrose 50%) 50 ml Q30M PRN IV Hypoglycemia 05/22/20 18:30 08/20/20 18:29 Digoxin (Lanoxin) 0.125 mg DAILY ORAL 06/05/20 09:00 09/03/20 08:59 Diltiazem HCl (Cardizem Tab) 90 mg EVERY 6 HOURS NG 06/05/20 06:00 07/05/20 05:59 Enoxaparin Sodium (Lovenox) 60 mg DAILY SUBQ 06/03/20 09:00 09/01/20 08:59 06/04/20 09:11 Insulin Aspart (NovoLOG) Q6HR SUBQ 05/23/20 00:00 08/20/20 20:59 06/02/20 00:00 Ipratropium [place] (Atrovent Inh) 1 puffs QIDRT INH 06/01/20 07:00 06/26/20 09:59 06/05/20 07:34 Levofloxacin (Levaquin) 250 mg DAILY NG 06/03/20 09:00 06/10/20 08:59 06/04/20 09:12 Loperamide HCl (Imodium) 2 mg Q6H PRN NG Diarrhea 05/26/20 17:45 06/25/20 17:44 06/03/20 15:04 Pantoprazole (Protonix) 40 mg DAILY IVP 05/28/20 09:00 06/27/20 08:59 06/04/20 09:08 Salmeterol Xinafoate/ Fluticasone (Advair 100/50 Diskus) 1 puffs BIDRT INH 05/11/20 22:00 08/09/20 21:59 05/16/20 09:02 Assessment/Plan Assessment/Plan Impression: COVID-19 Chronic obstructive pulmonary disease/Asthma Community acquired pneumonia Atrial fibrillation with RVR Elevated troponin Congestive heart Failure sinus tachycardia Hypoxemia transaminitis with gallstones acute on chronic renal failure acute respiratory failure hypotension tachycardia transaminitis MODS anemia NSVT Plan ID noted gi for GT/ rectal tube monitor vitals and control heart rate/ d/w cardiology if can proceed with GT Vent support/and trach care feeds per dietary on lovenox Bronchodilator therapy GT needed Monitor labs/ renal follow up - renal function still reduced- Covid 19 negative nutrition and NG feeds reviewed care and optimize position change and monitor skin surgical follow up noted monitor protein levels and adjust will need placement when gt placed impression, plan, and exam edited and reviewed in detail care discussed with Aaron Bales MD Jun 05, 2020 08:26
--- NOTE | 2020-06-05 09:00 | NUR ---
CASE MANAGEMENT: REVIEW 06/05/2020 SI:COVID VIRAL PNA. VS: T 98.8 HR 113 RR 16 B/P 118/58 SATS 100% ON MECH VENT FIO2 40 LABS: BUN 50 CR 1.4 GLU 116 CA 7.5 AST 44 ALP 257 IS:CARDIZEM NG Q6H LEVAQUIN NG QD DIGOXIN PO QD INSULIN ASPART SUBQ Q6H SDU PLAN OF CARE: [facility]
[2020-06-05] MEDS: Digoxin 0.125mg tab ORAL SCH (09:17)
[2020-06-05] MEDS: Pantoprazole Inj IVP SCH (09:18)
[2020-06-05] MEDS: Wixela 100/50 Inhaler - 60 dose INH SCH (09:20)
[2020-06-05] MEDS: Enoxaparin 60mg Inj SUBQ SCH (09:38)
--- NOTE | 2020-06-05 10:27 | Surgery Progress Note ---
Surgery Progress Note Subjective Procedure Performed trach Additional Comments afebrile, HD stable improving tolerating diet weaning support as tolerated Objective Last 24 Hour Vital Signs Date Time Temp Pulse Resp B/P (MAP) Pulse Ox O2 Delivery O2 Flow Rate FiO2 06/05/20 09:17 113 06/05/20 08:33 98.8 113 16 118/58 (78) 100 06/05/20 08:16 40 06/05/20 08:14 Mechanical Ventilator Mechanical Ventilator 06/05/20 07:46 118 06/05/20 07:35 113 20 100 Mechanical Ventilator 40 116 27 40 06/05/20 05:45 104 99/55 06/05/20 04:00 Mechanical Ventilator Mechanical Ventilator 06/05/20 04:00 98.0 107 14 104/53 (70) 100 06/05/20 04:00 40 06/05/20 04:00 105 06/05/20 03:22 107 15 40 06/05/20 01:44 114 06/05/20 00:10 116 115/54 06/05/20 00:00 114 06/05/20 00:00 98.9 113 15 108/57 (74) 100 06/05/20 00:00 40 06/05/20 00:00 Mechanical Ventilator Mechanical Ventilator 06/04/20 23:51 116 16 40 06/04/20 20:00 Mechanical Ventilator Mechanical Ventilator 06/04/20 20:00 40 06/04/20 20:00 98.4 118 18 115/54 (74) 100 06/04/20 19:32 116 06/04/20 19:22 117 16 100 Mechanical Ventilator 40 118 18 40 06/04/20 17:21 124 109/59 06/04/20 16:00 Mechanical Ventilator Mechanical Ventilator 06/04/20 16:00 124 06/04/20 16:00 40 06/04/20 16:00 98.5 117 15 109/59 (76) 100 06/04/20 14:30 124 19 100 Mechanical Ventilator 40 124 19 40 06/04/20 12:40 116 116/56 06/04/20 12:00 98.2 116 15 116/56 (76) 100 06/04/20 12:00 40 06/04/20 12:00 Mechanical Ventilator Mechanical Ventilator 06/04/20 10:30 116 17 100 Mechanical Ventilator 40 116 17 40 I&O Intake and Output 06/04/20 06/05/20 19:00 07:00 Intake Total 920 ml 590 ml Output Total 600 ml 2250 ml Balance 320 ml -1660 ml Free Water 200 ml 150 ml Tube Feeding 480 ml 440 ml Other 240 ml Output Urine Total 600 ml 2200 ml Stool Total 50 ml # Bowel Movements 50 Dressing: dry Cardiovascular: RSR Respiratory: decreased breath sounds Abdomen: soft, non-tender, present bowel sounds Extremities: no edema, no tenderness, no cyanosis Laboratory Tests Test 06/04/20 12:28 06/04/20 17:42 06/05/20 00:02 06/05/20 03:25 POC Whole Blood Glucose 95 MG/DL (74-106) Pending 92 MG/DL (74-106) White Blood Count 10.4 K/UL (4.8-10.8) Red Blood Count 3.41 M/UL (4.20-5.40) L Hemoglobin 9.2 G/DL (12.0-16.0) L Hematocrit 27.7 % (37.0-47.0) L Mean Corpuscular Volume 81 FL (80-99) Mean Corpuscular Hemoglobin 27.0 PG (27.0-31.0) Mean Corpuscular Hemoglobin Concent 33.2 G/DL (32.0-36.0) Red Cell Distribution Width 16.0 % (11.6-14.8) H Platelet Count 428 K/UL (150-450) Mean Platelet Volume 5.5 FL (6.5-10.1) L Neutrophils (%) (Auto) 60.7 % (45.0-75.0) Lymphocytes (%) (Auto) 21.5 % (20.0-45.0) Monocytes (%) (Auto) 14.5 % (1.0-10.0) H Eosinophils (%) (Auto) 0.9 % (0.0-3.0) Basophils (%) (Auto) 2.4 % (0.0-2.0) H Sodium Level 138 MMOL/L (136-145) Potassium Level 3.5 MMOL/L (3.5-5.1) Chloride Level 103 MMOL/L (98-107) Carbon Dioxide Level 31 MMOL/L (21-32) Anion Gap 4 mmol/L (5-15) L Blood Urea Nitrogen 50 mg/dL (7-18) H Creatinine 1.4 MG/DL (0.55-1.30) H Estimat Glomerular Filtration Rate 43.9 mL/min (>60) Glucose Level 116 MG/DL (74-106) H Calcium Level 7.5 MG/DL (8.5-10.1) L Total Bilirubin 0.4 MG/DL (0.2-1.0) Aspartate Amino Transf (AST/SGOT) 44 U/L (15-37) H Alanine Aminotransferase (ALT/SGPT) 30 U/L (12-78) Alkaline Phosphatase 257 U/L (46-116) H Total Protein 5.5 G/DL (6.4-8.2) L Albumin 0.9 G/DL (3.4-5.0) L Globulin 4.6 g/dL Albumin/Globulin Ratio 0.2 (1.0-2.7) L Test 06/05/20 05:45 POC Whole Blood Glucose 99 MG/DL (74-106) Plan Problems: (1) Elevated troponin (2) Atrial fibrillation with RVR (3) COVID-19 Assessment & Plan: ++ as per pulm and ID trach DAILY ESTIMATED NEEDS: Needs based on Critical Care, ARF/ 56kg abw 22-28 kcals/kg 2334-9549 total kcals 0.8-1.5 (increase w/ renal improvement) g protein/kg 45-84 g total protein 25-30 mL/kg 5723-0365 total fluid mLs NUTRITION DIAGNOSIS: * Altered nutrition related lab values r/t clinical status as evidenced by elev BUN(82), creat(3.8) trending up, critical ABG (low pH, elev CO2)-> now improved. * Swallowing difficulty R/T respiratory status as evidenced by s/p oral intubation, on OGT feeds. 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: MATERIALS MANAGEMENT MANAGER eval post extubation ENTERAL NUTRITION RECOMMENDATIONS: Nepro @ 35ml/hr x 24 hrs to provide 840ml, 1512kcal, 68g prot, 610ml free water * W/ worsening renal fxn, rec to continue Nepro * As tolerated, increase goal rate to 35ml/hr x 24 hrs to meet 100% est kcal/prot needs ADDITIONAL RECOMMENDATIONS: 1) Calibrated bedscale wt 2) Monitor renal fxn and lytes, need to continue Nepro Creat trending up 3) Rec niss w/ solumedrol (4) Community acquired pneumonia (5) COPD (chronic obstructive pulmonary disease) (6) Pulmonary fibrosis (7) Asthma (8) History of asthma (9) NSTEMI (non-ST elevated myocardial infarction) (10) Moderate to severe pulmonary hypertension (11) Asthma exacerbation (12) Abnormal LFTs Assessment & Plan: afebrile, HD stable labs noted lft's elevated US reviewed exam benign gb likely reactive from underlying pathology unlikely cholecystitis clinically fluid overload trend labs will monitor exam clinically covid + prognosis guarded cxr reviewed on abx worsening plan repeat US - noted cannot get hida given covid labs noted worsening leukocytosis Gallbladder demonstrates wall thickening and wall edema, gallbladder wall measuring up to 6 mm thick. There are gallstones. Sonographic Escoto's sign is negative. Common bile duct measures 3 mm in diameter. No intrahepatic biliary ductal dilatation. Liver demonstrates normal echogenicity, no focal abnormality. Portal vein and hepatic veins are patent. Pancreas is unremarkable. Spleen is unremarkable. Left kidney measures 9.2 cm in length. Right kidney measures 9.9 cm length. Both kidneys demonstrate normal echogenicity. There is no hydronephrosis. Small cyst is seen in the right kidney. . Abdominal aorta was not imaged . There is trace ascites. There is a small right pleural effusion incidentally noted Impression: Small right pleural effusion. Trace ascites Cholelithiasis. Gallbladder wall thickening may be related to hemodynamic factors causing the pleural fluid and ascites, but could also indicate acute cholecystitis. Consider nuclear medicine hepatobiliary scan if there is high clinical suspicion. Negative for dilated bile ducts Small right renal cyst incidentally noted (13) Acute respiratory failure with hypoxia Assessment & Plan: s/p trach discussed with family comfortable weaning Quentin Sanchez Jun 05, 2020 10:27
[2020-06-05] MEDS ORDERED: Varibar Pudding 230ml MC PRN (10:30)
[2020-06-05] MEDS ORDERED: Varibar Thin Liquid powder 148gm MC PRN (10:30)
[2020-06-05] MEDS ORDERED: Varibar Nectar 240ml MC PRN (10:30)
[2020-06-05] MEDS ORDERED: Varibar Honey 250ml MC PRN (10:30)
--- NOTE | 2020-06-05 11:10 | Infectious Diseases Prog Note ---
Assessment/Plan Assessment/Plan antibiotics : levoquin A 1. COVID 19 pneumonia s/p ivermectin 9.7.20 2. renal failure 3. increased LFT 4. COPD 5. CHF 6. asthma 7. respiratory failure s/p tracheostomy 8. leucocytosis resolved 9. pseudomonas pneumonia 10. fungal UTI s/p rx P 1. continue levoquin 2 more days 2. will follow up cultures 3. d/c isolation Subjective ROS Limited/Unobtainable: Yes Allergies: Coded Allergies: CIPROFLOXACIN (Verified Allergy, Unknown, 09/27/17) Objective Last 24 Hour Vital Signs Date Time Temp Pulse Resp B/P (MAP) Pulse Ox O2 Delivery O2 Flow Rate FiO2 06/05/20 11:05 116 22 40 06/05/20 09:17 113 06/05/20 08:33 98.8 113 16 118/58 (78) 100 06/05/20 08:16 40 06/05/20 08:14 Mechanical Ventilator Mechanical Ventilator 06/05/20 07:46 118 06/05/20 07:35 113 20 100 Mechanical Ventilator 40 116 27 40 06/05/20 05:45 104 99/55 06/05/20 04:00 Mechanical Ventilator Mechanical Ventilator 06/05/20 04:00 98.0 107 14 104/53 (70) 100 06/05/20 04:00 40 06/05/20 04:00 105 06/05/20 03:22 107 15 40 06/05/20 01:44 114 06/05/20 00:10 116 115/54 06/05/20 00:00 114 06/05/20 00:00 98.9 113 15 108/57 (74) 100 06/05/20 00:00 40 06/05/20 00:00 Mechanical Ventilator Mechanical Ventilator 06/04/20 23:51 116 16 40 06/04/20 20:00 Mechanical Ventilator Mechanical Ventilator 06/04/20 20:00 40 06/04/20 20:00 98.4 118 18 115/54 (74) 100 06/04/20 19:32 116 06/04/20 19:22 117 16 100 Mechanical Ventilator 40 118 18 40 06/04/20 17:21 124 109/59 06/04/20 16:00 Mechanical Ventilator Mechanical Ventilator 06/04/20 16:00 124 06/04/20 16:00 40 06/04/20 16:00 98.5 117 15 109/59 (76) 100 06/04/20 14:30 124 19 100 Mechanical Ventilator 40 124 19 40 06/04/20 12:40 116 116/56 06/04/20 12:00 98.2 116 15 116/56 (76) 100 06/04/20 12:00 40 06/04/20 12:00 Mechanical Ventilator Mechanical Ventilator Height (Feet): 5 Height (Inches): 3.00 Weight (Pounds): 174 HEENT: status post trach Respiratory/Chest: lungs clear Cardiovascular: normal rate, regular rhythm, no gallop/murmur Abdomen: soft, non tender Extremities: other - + edema Laboratory Tests Test 06/04/20 12:28 06/04/20 17:42 06/05/20 00:02 06/05/20 03:25 POC Whole Blood Glucose 95 MG/DL (74-106) Pending 92 MG/DL (74-106) White Blood Count 10.4 K/UL (4.8-10.8) Red Blood Count 3.41 M/UL (4.20-5.40) L Hemoglobin 9.2 G/DL (12.0-16.0) L Hematocrit 27.7 % (37.0-47.0) L Mean Corpuscular Volume 81 FL (80-99) Mean Corpuscular Hemoglobin 27.0 PG (27.0-31.0) Mean Corpuscular Hemoglobin Concent 33.2 G/DL (32.0-36.0) Red Cell Distribution Width 16.0 % (11.6-14.8) H Platelet Count 428 K/UL (150-450) Mean Platelet Volume 5.5 FL (6.5-10.1) L Neutrophils (%) (Auto) 60.7 % (45.0-75.0) Lymphocytes (%) (Auto) 21.5 % (20.0-45.0) Monocytes (%) (Auto) 14.5 % (1.0-10.0) H Eosinophils (%) (Auto) 0.9 % (0.0-3.0) Basophils (%) (Auto) 2.4 % (0.0-2.0) H Sodium Level 138 MMOL/L (136-145) Potassium Level 3.5 MMOL/L (3.5-5.1) Chloride Level 103 MMOL/L (98-107) Carbon Dioxide Level 31 MMOL/L (21-32) Anion Gap 4 mmol/L (5-15) L Blood Urea Nitrogen 50 mg/dL (7-18) H Creatinine 1.4 MG/DL (0.55-1.30) H Estimat Glomerular Filtration Rate 43.9 mL/min (>60) Glucose Level 116 MG/DL (74-106) H Calcium Level 7.5 MG/DL (8.5-10.1) L Total Bilirubin 0.4 MG/DL (0.2-1.0) Aspartate Amino Transf (AST/SGOT) 44 U/L (15-37) H Alanine Aminotransferase (ALT/SGPT) 30 U/L (12-78) Alkaline Phosphatase 257 U/L (46-116) H Total Protein 5.5 G/DL (6.4-8.2) L Albumin 0.9 G/DL (3.4-5.0) L Globulin 4.6 g/dL Albumin/Globulin Ratio 0.2 (1.0-2.7) L Test 06/05/20 05:45 POC Whole Blood Glucose 99 MG/DL (74-106) Current Medications Medications (Trade) Dose Ordered Sig/Ghislaine Route PRN Reason Start Time Stop Time Status Last Admin Dose Admin Acetaminophen (Tylenol) 650 mg Q4H PRN NG Temp >100.5 05/25/20 16:15 06/24/20 16:14 06/01/20 22:17 Albuterol Sulfate (Proventil MDI) 2 puff Q4H PRN INH Shortness of Breath 05/11/20 20:00 08/01/20 11:59 05/13/20 10:30 Barium Sulfate (Varibar Honey) 250 ml NOW PRN MC RAD 06/05/20 10:30 06/08/20 10:17 Barium Sulfate (Varibar [place]) 240 ml NOW PRN MC RAD 06/05/20 10:30 06/08/20 10:17 Barium Sulfate (Varibar Pudding) 230 ml NOW PRN MC RAD 06/05/20 10:30 06/08/20 10:17 Barium Sulfate (Varibar Thin Liquid powder) 148 gm NOW PRN MC RAD 06/05/20 10:30 06/08/20 10:17 Dextrose (Dextrose 50%) 25 ml Q30M PRN IV Hypoglycemia 05/22/20 18:30 08/20/20 18:29 Dextrose (Dextrose 50%) 50 ml Q30M PRN IV Hypoglycemia 05/22/20 18:30 08/20/20 18:29 Digoxin (Lanoxin) 0.125 mg DAILY ORAL 06/05/20 09:00 09/03/20 08:59 06/05/20 09:17 Diltiazem HCl (Cardizem Tab) 90 mg EVERY 6 HOURS NG 06/05/20 06:00 07/05/20 05:59 Enoxaparin Sodium (Lovenox) 60 mg DAILY SUBQ 06/03/20 09:00 09/01/20 08:59 06/05/20 09:38 Insulin Aspart (NovoLOG) Q6HR SUBQ 05/23/20 00:00 08/20/20 20:59 06/02/20 00:00 Ipratropium [place] (Atrovent Inh) 1 puffs QIDRT INH 06/01/20 07:00 06/26/20 09:59 06/05/20 09:21 Levofloxacin (Levaquin) 250 mg DAILY NG 06/03/20 09:00 06/10/20 08:59 06/05/20 09:18 Loperamide HCl (Imodium) 2 mg Q6H PRN NG Diarrhea 05/26/20 17:45 06/25/20 17:44 06/03/20 15:04 Pantoprazole (Protonix) 40 mg DAILY IVP 05/28/20 09:00 06/27/20 08:59 06/05/20 09:18 Salmeterol Xinafoate/ Fluticasone (Advair 100/50 Diskus) 1 puffs BIDRT INH 05/11/20 22:00 08/09/20 21:59 06/05/20 09:20 Camilo Cameron MD Jun 05, 2020 11:10
--- NOTE | 2020-06-05 12:26 | NUR ---
Speech Pathology Note (Bedside Dysphagia Evaluation) Admission: 05/03/2020 Dx: COVID 19 c.w respiratory distress Oral intubation days: 16days (05/11/2020-05/28/2020) POD # 8 tracheostomy: Shiley # 8 Brief Note: Ms. Sanchez is an 80 year old female presents with underlying diseases of COPD, asthma, CHF was found to have COVID 19 on 05/03/2020. Her pulmonary status was rapidly declined on 05/11-05/12 required to be intubated on 05/11 overnight. She failed vent wean and subsequently she got trach on 05/28/2020 and she is doing well on mechanical vent setting of Volume 500, rate 14, PEEP 5, FIo2 40% since trach placement. Reviewing primary notes, Ms. Sanchez will need PEG placement. What I have done: After I reviewed the chart, I discussed with RN and RT for what I need from their professional support and informed my plan. I prepare green color ice cream, and red color cranberry juice for PO trial. After the vital on the monitor was checked I suction orally and tracheally with careful cuff deflation. The cuff was deflated without any evidence of desaturation or distress from her own pharyngeal and subglottic secretion. The vent was monitored by RT. The leak was confirmed on both monitor and patients cough and voice. I fed her about total of 50cc green color ice cream, 30cc of cranberry juice, there was no evidence of tracheal aspiration (based on food color). After this was done I re-inflate the cuff. The vent set and status was monitored by RT's throughout the sessions. Then I completed the evaluation. Pt had been tachycardia 100~135, but not desaturation during my evaluation. Interpretation: 1. Very high risk of aspiration with worsening pulmonary status with PO diet on mechanical vent with current setting. 2. Adequate and functional oropharyngeal motility for swallowing (mild atrophy and tremor of oromandibular muscular structure is note) 3. Probable adequate and functional laryngeal function based on mechanical vent phonation (Excellent leak around tracheostomy tube though larynx) Plan: 1. NPO and GI consult for PEG for now 2. PO diet if/when he can be on trach mask and deflate trach cuff 3. Passy [place] Speaking valve Evaluation when she tolerates on CPAP with adequate tidal volume SP/SW service to follow up 2-5 wk qd to review the progress notes and plans of care etc. Gaye Price
--- NOTE | 2020-06-05 13:30 | Nephrology Progress Note ---
Assessment/Plan Plan MELODY resolving. MOF due to Covid 19 MOF resolving Subjective Subjective Much more alert Objective Objective Last 24 Hour Vital Signs Date Time Temp Pulse Resp B/P (MAP) Pulse Ox O2 Delivery O2 Flow Rate FiO2 06/05/20 12:18 97.3 117 22 105/63 (77) 100 06/05/20 12:00 40 06/05/20 12:00 117 105/63 06/05/20 11:28 Mechanical Ventilator Mechanical Ventilator 06/05/20 11:05 116 22 40 06/05/20 09:17 113 06/05/20 08:33 98.8 113 16 118/58 (78) 100 06/05/20 08:16 40 06/05/20 08:14 Mechanical Ventilator Mechanical Ventilator 06/05/20 07:46 118 06/05/20 07:35 113 20 100 Mechanical Ventilator 40 116 27 40 06/05/20 05:45 104 99/55 06/05/20 04:00 Mechanical Ventilator Mechanical Ventilator 06/05/20 04:00 98.0 107 14 104/53 (70) 100 06/05/20 04:00 40 06/05/20 04:00 105 06/05/20 03:22 107 15 40 06/05/20 01:44 114 06/05/20 00:10 116 115/54 06/05/20 00:00 114 06/05/20 00:00 98.9 113 15 108/57 (74) 100 06/05/20 00:00 40 06/05/20 00:00 Mechanical Ventilator Mechanical Ventilator 06/04/20 23:51 116 16 40 06/04/20 20:00 Mechanical Ventilator Mechanical Ventilator 06/04/20 20:00 40 06/04/20 20:00 98.4 118 18 115/54 (74) 100 06/04/20 19:32 116 06/04/20 19:22 117 16 100 Mechanical Ventilator 40 118 18 40 06/04/20 17:21 124 109/59 06/04/20 16:00 Mechanical Ventilator Mechanical Ventilator 06/04/20 16:00 124 06/04/20 16:00 40 06/04/20 16:00 98.5 117 15 109/59 (76) 100 06/04/20 14:30 124 19 100 Mechanical Ventilator 40 124 19 40 Intake and Output 10/8/20 10/9/20 18:59 06:59 Intake Total 920 ml 630 ml Output Total 600 ml 2250 ml Balance 320 ml -1620 ml Free Water 200 ml 150 ml Tube Feeding 480 ml 480 ml Other 240 ml Output Urine Total 600 ml 2200 ml Stool Total 50 ml # Bowel Movements 50 Laboratory Tests 06/04/20 17:42: POC Whole Blood Glucose [Pending] 06/05/20 00:02: POC Whole Blood Glucose 92 06/05/20 03:25: White Blood Count 10.4, Red Blood Count 3.41L, Hemoglobin 9.2L, Hematocrit 27.7L , Mean Corpuscular Volume 81, Mean Corpuscular Hemoglobin 27.0, Mean Corpuscular Hemoglobin Concent 33.2, Red Cell Distribution Width 16.0H, Platelet Count 428, Mean Platelet Volume 5.5L, Neutrophils (%) (Auto) 60.7, Lymphocytes (%) (Auto) 21.5, Monocytes (%) (Auto) 14.5H, Eosinophils (%) (Auto) 0.9, Basophils (%) (Auto) 2.4H, Sodium Level 138, Potassium Level 3.5, Chloride Level 103, Carbon Dioxide Level 31, Anion Gap 4L, Blood Urea Nitrogen 50H, Creatinine 1.4H, Estimat Glomerular Filtration Rate 43.9, Glucose Level 116H, Calcium Level 7.5L, Total Bilirubin 0.4, Aspartate Amino Transf (AST/SGOT) 44H, Alanine Aminotransferase (ALT/SGPT) 30, Alkaline Phosphatase 257H, Total Protein 5.5L, Albumin 0.9L, Globulin 4.6, Albumin/Globulin Ratio 0.2L 06/05/20 05:45: POC Whole Blood Glucose 99 06/05/20 12:11: POC Whole Blood Glucose 107H Height (Feet): 5 Height (Inches): 3.00 Weight (Pounds): 174 Objective CV Tach +Irr Trach OK Lungs B Ronchi Abd SNT. BS + E No CCE Ruth Coyne MD Jun 05, 2020 13:30
--- NOTE | 2020-06-05 13:55 | NUR ---
CASE MANAGEMENT: NOTE [facility] NOTED. CALL PLACED TO DTR IVONNE TO DISCUSS [facility] RESULTS. SHE BELIEVES PT WILL EAT WITH MORE TIME AND SHE HAS SEEN PTs WITH TRACHs EAT. HARRISON EXPLAINED THAT THIS IS TRUE BUT IS RECOMMENDING PEG PLACEMENT TO REDUCE RISK OF ASPIRATION. DTR WOULD LIKE TO S/W DR HUNTER NURSING UPDATED Addendum: 06/05/20 at 1545 by Thania Lovell CM PT HAS BEEN ACCEPTED TO ROOM 33B AT [facility] - DR REYES MADE AWARE
--- NOTE | 2020-06-05 15:57 | General Progress Note ---
Subjective Allergies: Coded Allergies: CIPROFLOXACIN (Verified Allergy, Unknown, 09/27/17) Subjective no events. remains on the vent. no distress. mild secretions. decreased diarrhea. +rectal tube. cxr noted- persistent migel infiltrates. tolerating NGT feeds. covid neg failed swallow eval Objective Last 24 Hour Vital Signs Date Time Temp Pulse Resp B/P (MAP) Pulse Ox O2 Delivery O2 Flow Rate FiO2 06/05/20 15:09 12 25 100 Mechanical Ventilator 40 126 28 40 06/05/20 12:18 97.3 117 22 105/63 (77) 100 06/05/20 12:00 40 06/05/20 12:00 117 105/63 06/05/20 11:40 113 06/05/20 11:28 Mechanical Ventilator Mechanical Ventilator 06/05/20 11:05 116 22 40 06/05/20 09:17 113 06/05/20 08:33 98.8 113 16 118/58 (78) 100 06/05/20 08:16 40 06/05/20 08:14 Mechanical Ventilator Mechanical Ventilator 06/05/20 07:46 118 06/05/20 07:35 113 20 100 Mechanical Ventilator 40 116 27 40 06/05/20 05:45 104 99/55 06/05/20 04:00 Mechanical Ventilator Mechanical Ventilator 06/05/20 04:00 98.0 107 14 104/53 (70) 100 06/05/20 04:00 40 06/05/20 04:00 105 06/05/20 03:22 107 15 40 06/05/20 01:44 114 06/05/20 00:10 116 115/54 06/05/20 00:00 114 06/05/20 00:00 98.9 113 15 108/57 (74) 100 06/05/20 00:00 40 06/05/20 00:00 Mechanical Ventilator Mechanical Ventilator 06/04/20 23:51 116 16 40 06/04/20 20:00 Mechanical Ventilator Mechanical Ventilator 06/04/20 20:00 40 06/04/20 20:00 98.4 118 18 115/54 (74) 100 06/04/20 19:32 116 06/04/20 19:22 117 16 100 Mechanical Ventilator 40 118 18 40 06/04/20 17:21 124 109/59 06/04/20 16:00 Mechanical Ventilator Mechanical Ventilator 06/04/20 16:00 124 10/8/20 16:00 40 06/04/20 16:00 98.5 117 15 109/59 (76) 100 Intake and Output 06/04/20 06/05/20 19:00 07:00 Intake Total 920 ml 590 ml Output Total 600 ml 2250 ml Balance 320 ml -1660 ml Free Water 200 ml 150 ml Tube Feeding 480 ml 440 ml Other 240 ml Output Urine Total 600 ml 2200 ml Stool Total 50 ml # Bowel Movements 50 Laboratory Tests 06/04/20 17:42: POC Whole Blood Glucose [Pending] 06/05/20 00:02: POC Whole Blood Glucose 92 06/05/20 03:25: White Blood Count 10.4, Red Blood Count 3.41L, Hemoglobin 9.2L, Hematocrit 27.7L , Mean Corpuscular Volume 81, Mean Corpuscular Hemoglobin 27.0, Mean Corpuscular Hemoglobin Concent 33.2, Red Cell Distribution Width 16.0H, Platelet Count 428, Mean Platelet Volume 5.5L, Neutrophils (%) (Auto) 60.7, Lymphocytes (%) (Auto) 21.5, Monocytes (%) (Auto) 14.5H, Eosinophils (%) (Auto) 0.9, Basophils (%) (Auto) 2.4H, Sodium Level 138, Potassium Level 3.5, Chloride Level 103, Carbon Dioxide Level 31, Anion Gap 4L, Blood Urea Nitrogen 50H, Creatinine 1.4H, Estimat Glomerular Filtration Rate 43.9, Glucose Level 116H, Calcium Level 7.5L, Total Bilirubin 0.4, Aspartate Amino Transf (AST/SGOT) 44H, Alanine Aminotransferase (ALT/SGPT) 30, Alkaline Phosphatase 257H, Total Protein 5.5L, Albumin 0.9L, Globulin 4.6, Albumin/Globulin Ratio 0.2L 06/05/20 05:45: POC Whole Blood Glucose 99 06/05/20 12:11: POC Whole Blood Glucose 107H Height (Feet): 5 Height (Inches): 3.00 Weight (Pounds): 174 Objective General Appearance: WD/WN, no apparent distress, alert. orally intubated EENT: PERRL/EOMI Neck: non-tender, normal alignment, supple Cardiovascular: normal rate, regular rhythm Respiratory/Chest: chest wall non-tender, lungs clear, normal breath sounds, no respiratory distress, no accessory muscle use Abdomen: normal bowel sounds, non tender, soft, no organomegaly Edema: no edema noted Arm (L), no edema noted Arm (R) Neurologic: body hanger II-XII grossly normal, alert, oriented x 3, responsive Skin: normal pigmentation Lymphatic: normal anterior cervical (L), normal anterior cervical (R) Assessment/Plan Problem List: (1) Pulmonary fibrosis ICD Codes: J84.10 - Pulmonary fibrosis, unspecified SNOMED: 63871856 (2) History of asthma ICD Codes: Z87.09 - Personal history of other diseases of the respiratory system SNOMED: 724867476 (3) Asthma ICD Codes: J45.909 - Unspecified asthma, uncomplicated SNOMED: 052374307 (4) NSTEMI (non-ST elevated myocardial infarction) ICD Codes: I21.4 - Non-ST elevation (NSTEMI) myocardial infarction SNOMED: 043774040 (5) Elevated troponin ICD Codes: R79.89 - Other specified abnormal findings of blood chemistry SNOMED: 512289532, 214951215, 166480260 (6) COPD (chronic obstructive pulmonary disease) ICD Codes: J44.9 - Chronic obstructive pulmonary disease, unspecified SNOMED: 06311927 (7) Atrial fibrillation with RVR ICD Codes: I48.91 - Unspecified atrial fibrillation SNOMED: 475496393437815 (8) Community acquired pneumonia ICD Codes: J18.9 - Pneumonia, unspecified organism SNOMED: 715721156 Status: stable Assessment/Plan: vent support resp rx and suctioning as needed NGT feeds GT per GI Po levofloxacin turn q2 skin care imodium for diarrhea dvt/stress ulcer prophylaxis remains gaurded will d/w Dtr. wants to wait on GT till next week. requesting one more speech eval early next week Bradford Linn MD Jun 05, 2020 15:57
--- NOTE | 2020-06-05 18:55 | NUR ---
NURSE HAND-OFF REPORT: Important Events on Shift:No longer on Covid isolation Patient Status: Diet: Pending Orders: Pending Results/Labs: Pending MD notification: Latest Vital Signs: Temperature 99.1 , Pulse 129 , B/P 110 /64 , Respiratory Rate 26 , O2 SAT 100 , Mechanical Ventilator, O2 Flow Rate 4.0 . Vital Sign Comment: EKG Rhythm: Sinus Tachycardia Rhythm change?: N MD Notified?: Tracy Perez MD Response: Order Received& Read Back Latest [place] Fall Score: 35 Fall Risk: Medium Risk Safety Measures: Call light Within Reach, Bed Alarm Zone 1, Side Rails Side Rails x3, Bed position Low and Locked. Fall Precautions: Yellow Socks Yellow Gown Door Sign Patient Fall Education Report given to .
--- NOTE | 2020-06-05 19:10 | NUR ---
NURSE NOTES: Received patient from DAM[facility] Hale under the care of Dr. Jefferson for the admitting dx. of COPD excacerbation, and Covid (+) status. Patient noted with allergies to ciprofloxacin and full code status. Patient on standard precaution. Fall, and aspiration precaution observed and maintained at all times. Room safety check and ventilation safety check performed. No apparent distress or discomfort noted on patient. Will continue with current plan of care.
--- NOTE | 2020-06-05 20:00 | NUR ---
NURSE NOTES: Patient noted awake and alert x 3. Responsive with gestures and watching TV in calm disposition. Noted to have ST on the bander and cellophaner machine, but otherwise benign. Has shiley 8 trach size with vent settings of AC-14, TV-500, FiO2-40%, PEEP-5. Patient appears to be tolerating vent settings well as saturation is noted to be 100% with no apparent signs of distress or discomfort at this time. NGT is patent, in place, and flushing well, with residuals noted to be 5cc. On Vital AF 1.2 at 40cc/hr and tolerating well. Patient is incontinent with mueller catheter and rectal tube present, intact, and draining well. R upper arm 20ga noted. IV site benign and no redness, irritation, or infiltration noted at this time. Will continue with current plan of care.
--- NOTE | 2020-06-05 21:44 | General Progress Note ---
Subjective Allergies: Coded Allergies: CIPROFLOXACIN (Verified Allergy, Unknown, 09/27/17) Subjective Above noted tolerating TF Objective Last 24 Hour Vital Signs Date Time Temp Pulse Resp B/P (MAP) Pulse Ox O2 Delivery O2 Flow Rate FiO2 06/05/20 20:00 40 06/05/20 20:00 Mechanical Ventilator Mechanical Ventilator 06/05/20 20:00 125 06/05/20 20:00 98.4 123 22 104/57 (73) 100 06/05/20 19:21 126 23 99 Mechanical Ventilator 40 122 24 40 06/05/20 18:42 110/64 (79) 06/05/20 17:31 129 91/53 06/05/20 16:22 99.1 129 26 91/53 (66) 100 06/05/20 16:22 40 06/05/20 15:56 Mechanical Ventilator Mechanical Ventilator 06/05/20 15:29 127 06/05/20 15:09 12 25 100 Mechanical Ventilator 40 126 28 40 06/05/20 12:18 97.3 117 22 105/63 (77) 100 06/05/20 12:00 40 06/05/20 12:00 117 105/63 06/05/20 11:40 113 06/05/20 11:28 Mechanical Ventilator Mechanical Ventilator 06/05/20 11:05 116 22 40 06/05/20 09:17 113 06/05/20 08:33 98.8 113 16 118/58 (78) 100 06/05/20 08:16 40 06/05/20 08:14 Mechanical Ventilator Mechanical Ventilator 06/05/20 07:46 118 06/05/20 07:35 113 20 100 Mechanical Ventilator 40 116 27 40 06/05/20 05:45 104 99/55 06/05/20 04:00 Mechanical Ventilator Mechanical Ventilator 06/05/20 04:00 98.0 107 14 104/53 (70) 100 06/05/20 04:00 40 06/05/20 04:00 105 06/05/20 03:22 107 15 40 06/05/20 01:44 114 06/05/20 00:10 116 115/54 06/05/20 00:00 114 06/05/20 00:00 98.9 113 15 108/57 (74) 100 06/05/20 00:00 40 06/05/20 00:00 Mechanical Ventilator Mechanical Ventilator 06/04/20 23:51 116 16 40 Intake and Output 06/04/20 06/05/20 19:00 07:00 Intake Total 920 ml 630 ml Output Total 600 ml 2250 ml Balance 320 ml -1620 ml Free Water 200 ml 150 ml Tube Feeding 480 ml 480 ml Other 240 ml Output Urine Total 600 ml 2200 ml Stool Total 50 ml # Bowel Movements 50 Laboratory Tests 06/05/20 00:02: POC Whole Blood Glucose 92 06/05/20 03:25: White Blood Count 10.4, Red Blood Count 3.41L, Hemoglobin 9.2L, Hematocrit 27.7L , Mean Corpuscular Volume 81, Mean Corpuscular Hemoglobin 27.0, Mean Corpuscular Hemoglobin Concent 33.2, Red Cell Distribution Width 16.0H, Platelet Count 428, Mean Platelet Volume 5.5L, Neutrophils (%) (Auto) 60.7, Lymphocytes (%) (Auto) 21.5, Monocytes (%) (Auto) 14.5H, Eosinophils (%) (Auto) 0.9, Basophils (%) (Auto) 2.4H, Sodium Level 138, Potassium Level 3.5, Chloride Level 103, Carbon Dioxide Level 31, Anion Gap 4L, Blood Urea Nitrogen 50H, Creatinine 1.4H, Estimat Glomerular Filtration Rate 43.9, Glucose Level 116H, Calcium Level 7.5L, Total Bilirubin 0.4, Aspartate Amino Transf (AST/SGOT) 44H, Alanine Aminotransferase (ALT/SGPT) 30, Alkaline Phosphatase 257H, Total Protein 5.5L, Albumin 0.9L, Globulin 4.6, Albumin/Globulin Ratio 0.2L 06/05/20 05:45: POC Whole Blood Glucose 99 06/05/20 12:11: POC Whole Blood Glucose 107H Height (Feet): 5 Height (Inches): 3.00 Weight (Pounds): 174 Objective Elderly AA woman exam limited due to COVID isolation comfortable appearing (+) NG Feeding tube (+) trach tachycardic and periodic hypotension Assessment/Plan Status: stable Assessment/Plan: Assessment - Transaminitis, COVID-19 vs GB disease - Gallstones - Resp failure - s/p trach - Dysphagia - NGT - CHF - Pulm HTN - Arrhythmia and periodic hypotension - Renal failure Recommendations - monitor LFT - Continue TF - Await swallow study - Will place PEG once cardiac status optimized - Abx - anticoagulation with Lovenox Justine Torres MD Jun 05, 2020 21:44
--- NOTE | 2020-06-05 23:04 | Cardiology Progress Note ---
Subjective DATE OF SERVICE: Jun 05, 2020 Remains on vent via trach. COntinues with NGTube feeds Monitor: PAFib with persisting RVR and rare nonsustained VTach. Otherwise sinus tachycardia. BP range improved, but still with low episodes. Diarrhea decreased CXR (06/02) reviewed: bilateral infiltrates with left pl eff'n. ICU logs and cardiology care plan reviewed and updated Objective Last 24 Hour Vital Signs Date Time Temp Pulse Resp B/P (MAP) Pulse Ox O2 Delivery O2 Flow Rate FiO2 06/05/20 22:38 122 20 40 06/05/20 20:00 40 06/05/20 20:00 Mechanical Ventilator Mechanical Ventilator 06/05/20 20:00 125 06/05/20 20:00 98.4 123 22 104/57 (73) 100 06/05/20 19:21 126 23 99 Mechanical Ventilator 40 122 24 40 06/05/20 18:42 110/64 (79) 06/05/20 17:31 129 91/53 06/05/20 16:22 99.1 129 26 91/53 (66) 100 06/05/20 16:22 40 06/05/20 15:56 Mechanical Ventilator Mechanical Ventilator 06/05/20 15:29 127 06/05/20 15:09 12 25 100 Mechanical Ventilator 40 126 28 40 06/05/20 12:18 97.3 117 22 105/63 (77) 100 06/05/20 12:00 40 06/05/20 12:00 117 105/63 06/05/20 11:40 113 06/05/20 11:28 Mechanical Ventilator Mechanical Ventilator 06/05/20 11:05 116 22 40 06/05/20 09:17 113 06/05/20 08:33 98.8 113 16 118/58 (78) 100 06/05/20 08:16 40 06/05/20 08:14 Mechanical Ventilator Mechanical Ventilator 06/05/20 07:46 118 06/05/20 07:35 113 20 100 Mechanical Ventilator 40 116 27 40 06/05/20 05:45 104 99/55 06/05/20 04:00 Mechanical Ventilator Mechanical Ventilator 06/05/20 04:00 98.0 107 14 104/53 (70) 100 06/05/20 04:00 40 06/05/20 04:00 105 06/05/20 03:22 107 15 40 06/05/20 01:44 114 10/9/20 00:10 116 115/54 06/05/20 00:00 114 06/05/20 00:00 98.9 113 15 108/57 (74) 100 06/05/20 00:00 40 06/05/20 00:00 Mechanical Ventilator Mechanical Ventilator 06/04/20 23:51 116 16 40 ROS: unchanged from my eval of 05/03/20 HEENT: Orally intubated, Mechanically Ventilated, Thin secretions ET Tube RHYTHM: Afib LUNGS: no accessory muscle use, expiratory wheezing, diminished breath sounds CARDIAC: normal S1 and S2, no murmur, irregularly irregular ABDOMEN: normal bowel sounds, non tender, soft, no organomegaly EXTREMITIES: no calf tenderness, +1 edema Laboratory Tests Test 06/05/20 00:02 06/05/20 03:25 06/05/20 05:45 06/05/20 12:11 POC Whole Blood Glucose 92 MG/DL (74-106) 99 MG/DL (74-106) 107 MG/DL (74-106) H White Blood Count 10.4 K/UL (4.8-10.8) Red Blood Count 3.41 M/UL (4.20-5.40) L Hemoglobin 9.2 G/DL (12.0-16.0) L Hematocrit 27.7 % (37.0-47.0) L Mean Corpuscular Volume 81 FL (80-99) Mean Corpuscular Hemoglobin 27.0 PG (27.0-31.0) Mean Corpuscular Hemoglobin Concent 33.2 G/DL (32.0-36.0) Red Cell Distribution Width 16.0 % (11.6-14.8) H Platelet Count 428 K/UL (150-450) Mean Platelet Volume 5.5 FL (6.5-10.1) L Neutrophils (%) (Auto) 60.7 % (45.0-75.0) Lymphocytes (%) (Auto) 21.5 % (20.0-45.0) Monocytes (%) (Auto) 14.5 % (1.0-10.0) H Eosinophils (%) (Auto) 0.9 % (0.0-3.0) Basophils (%) (Auto) 2.4 % (0.0-2.0) H Sodium Level 138 MMOL/L (136-145) Potassium Level 3.5 MMOL/L (3.5-5.1) Chloride Level 103 MMOL/L (98-107) Carbon Dioxide Level 31 MMOL/L (21-32) Anion Gap 4 mmol/L (5-15) L Blood Urea Nitrogen 50 mg/dL (7-18) H Creatinine 1.4 MG/DL (0.55-1.30) H Estimat Glomerular Filtration Rate 43.9 mL/min (>60) Glucose Level 116 MG/DL (74-106) H Calcium Level 7.5 MG/DL (8.5-10.1) L Total Bilirubin 0.4 MG/DL (0.2-1.0) Aspartate Amino Transf (AST/SGOT) 44 U/L (15-37) H Alanine Aminotransferase (ALT/SGPT) 30 U/L (12-78) Alkaline Phosphatase 257 U/L (46-116) H Total Protein 5.5 G/DL (6.4-8.2) L Albumin 0.9 G/DL (3.4-5.0) L Globulin 4.6 g/dL Albumin/Globulin Ratio 0.2 (1.0-2.7) L Assessment/Plan Assessment/Plan Acute on chronic respiratory acidosis Worsening anemia Acute respiratory failure - s/p trach. Shock LE edema due to severe pulmonary hypertension and right heart strain COPD exacerb with active bronchospasm Lactic acidosis COVID 19 PNA Acute on chr renal failure Chronic systolic/diastolic CHF Pulmonary fibrosis with chronic hypoxia Paroxysmal AFib with RVR Hx Multifocal atrial arrhythmias Pulmonary HTN - severe Hx NSVTach Severe protein/calorie malnutrition Acute myocardial ischemia Resolving transaminitis CRITICAL & GUARDED PRBC transfusion for hb below 7gm/dl Vent support with on-going weaning efforts following trach Diltiazem dose titrations based on ventricular rate and BP parameters. Steroids per pulmonary Continue digoxin for add'l rate control and inotropy. Hypotonic IVF until free water deficit corrected Full anticoagulation for cardioembolic prophyl. Monitor liver fxn EGD and PEG if fails swallow eval next week. Simone Perez MD Jun 05, 2020 23:04
[2020-06-06] VITALS: BP 103/58
--- NOTE | 2020-06-06 | NUR ---
NURSE NOTES: Glucose check done and noted to be WNL. Insulin dose held, noted on EMR. Patient appears to be tolerating vent settings well as saturation is noted to be 100% with no apparent signs of distress or discomfort at this time. FLACC score of 0/10 noted. NGT is patent, in place, and flushing well, with no residuals noted. Oral care performed and patient tolerated procedure well. Will continue with current plan of care.
--- NOTE | 2020-06-06 02:00 | NUR ---
NURSE NOTES: Patient is asleep but easily arousable. Patient appears to be tolerating vent settings well as saturation is noted to be 100% with no apparent signs of distress or discomfort at this time. FLACC score of 0/10 noted. NGT is patent, in place, and flushing well, with no residuals noted. Oral care performed and patient tolerated procedure well. Patient is incontinent with mueller catheter and rectal tube present, intact, and draining well. Noted with clear straw urine and some sediments. Will continue with current plan of care.
[2020-06-06 04:00] VITALS: BP 109/56
--- NOTE | 2020-06-06 04:00 | NUR ---
NURSE NOTES: Patient asleep and resting well. FLACC score of 0/10 noted. NGT is patent, in place, and flushing well, with no residuals noted. Oral care performed and patient tolerated procedure well. Patient is incontinent with mueller catheter and rectal tube present, intact, and draining well. Noted with clear straw urine. R upper arm 20ga noted. IV site benign and no redness, irritation, or infiltration noted at this time. Will continue with current plan of care.
[2020-06-06 04:49] LABS: BASOPHILS % (AUTO) 1.9 % (0.0-2.0); EOSINOPHILS % (AUTO) 0.6 % (0.0-3.0); HEMATOCRIT 27.1 % (37.0-47.0); HEMOGLOBIN 9.1 G/DL (12.0-16.0); LYMPHOCYTES % (AUTO) 18.3 % (20.0-45.0); MEAN CORPUSCULAR VOLUME 81 FL (80-99); MONOCYTES % (AUTO) 15.3 % (1.0-10.0); NEUTROPHILS % (AUTO) 63.9 % (45.0-75.0); PLATELET COUNT 454 K/UL (150-450); RED BLOOD COUNT 3.33 M/UL (4.20-5.40); RED CELL DISTRIBUTION WIDTH 16.1 % (11.6-14.8); WHITE BLOOD COUNT 12.5 K/UL (4.8-10.8)
[2020-06-06 05:06] LABS: ALBUMIN/GLOBULIN RATIO 0.2 (1.0-2.7); BILIRUBIN,TOTAL 0.4 MG/DL (0.2-1.0); CALCIUM 7.6 MG/DL (8.5-10.1); CREATININE 1.4 MG/DL (0.55-1.30); POTASSIUM 3.6 MMOL/L (3.5-5.1)
[2020-06-06] MEDS: NovoLOG Insulin Flexpen SUBQ SCH ×5 (05:40→23:20)
[2020-06-06] MEDS: dilTIAZem HCl 90mg tab NG SCH ×5 (05:41→23:20)
[2020-06-06] MEDS: Ipratropium Bromide Inhaler INH SCH ×4 (07:35→19:04)
--- NOTE | 2020-06-06 07:35 | NUR ---
NURSE HAND-OFF REPORT: Important Events on Shift: Patient Status: Stable Diet: NGT feeding Pending Orders: Pending Results/Labs: Pending MD notification: Latest Vital Signs: Temperature 98.9 , Pulse 98 , B/P 100 /86 , Respiratory Rate 14 , O2 SAT 98 , Mechanical Ventilator, O2 Flow Rate 4.0 . Vital Sign Comment: EKG Rhythm: Sinus Tachycardia Rhythm change?: N MD Notified?: Tracy Perez MD Response: Order Received& Read Back Latest Lechuga Fall Score: 35 Fall Risk: Medium Risk Safety Measures: Call light Within Reach, Bed Alarm Zone 1, Side Rails Side Rails x3, Bed position Low and Locked. Fall Precautions: Yellow Socks Yellow Gown Door Sign Patient Fall Education Report given to DAMIAN Payan.
[2020-06-06] MEDS: Wixela 100/50 Inhaler - 60 dose INH SCH (07:36)
--- NOTE | 2020-06-06 07:40 | NUR ---
NURSE NOTES: Report received from Alex Tejada RN.Pt asleep noted no resp distress with trach tube to vent,ordered vent settings tolerated,no signs of pain or discomfort,on Afib on the monitor,NGT feeding Vital AF1.2 at 40 ml/hr,in placed per auscultation, no residual noted ,[place] cath draining yellow urine,pt with Rectal tube in placed with liquid brown stools,,skin warm and dry,both arms edematous,elevated on pillows,SR up x2 HOB elevated bed lock in lowest position will continue with plans of care.
[2020-06-06 08:00] VITALS: BP 97/65
--- NOTE | 2020-06-06 08:14 | General Progress Note ---
Subjective Allergies: Coded Allergies: CIPROFLOXACIN (Verified Allergy, Unknown, 09/27/17) Subjective Above noted tolerating TF swallow evaluation ordered still tachycardic Objective Last 24 Hour Vital Signs Date Time Temp Pulse Resp B/P (MAP) Pulse Ox O2 Delivery O2 Flow Rate FiO2 06/06/20 07:14 98 14 99 Mechanical Ventilator 40 102 20 40 06/06/20 05:41 69 100/86 06/06/20 04:00 40 06/06/20 04:00 Mechanical Ventilator Mechanical Ventilator 06/06/20 04:00 106 06/06/20 04:00 98.9 105 15 109/56 (73) 98 06/06/20 02:34 114 25 40 06/06/20 00:00 Mechanical Ventilator Mechanical Ventilator 06/06/20 00:00 114 103/58 06/06/20 00:00 98.3 114 18 103/58 (73) 100 06/05/20 22:38 122 20 40 06/05/20 20:00 40 06/05/20 20:00 Mechanical Ventilator Mechanical Ventilator 06/05/20 20:00 125 06/05/20 20:00 98.4 123 22 104/57 (73) 100 06/05/20 19:21 126 23 99 Mechanical Ventilator 40 122 24 40 06/05/20 18:42 110/64 (79) 06/05/20 17:31 129 91/53 06/05/20 16:22 99.1 129 26 91/53 (66) 100 06/05/20 16:22 40 06/05/20 15:56 Mechanical Ventilator Mechanical Ventilator 06/05/20 15:29 127 06/05/20 15:09 12 25 100 Mechanical Ventilator 40 126 28 40 06/05/20 12:18 97.3 117 22 105/63 (77) 100 06/05/20 12:00 40 06/05/20 12:00 117 105/63 06/05/20 11:40 113 06/05/20 11:28 Mechanical Ventilator Mechanical Ventilator 06/05/20 11:05 116 22 40 06/05/20 09:17 113 06/05/20 08:33 98.8 113 16 118/58 (78) 100 06/05/20 08:16 40 06/05/20 08:14 Mechanical Ventilator Mechanical Ventilator Intake and Output 06/05/20 06/06/20 19:00 07:00 Intake Total 660 ml 600 ml Output Total 2000 ml 1400 ml Balance -1340 ml -800 ml Free Water 180 ml 160 ml Tube Feeding 480 ml 440 ml Output Urine Total 1700 ml 1400 ml Stool Total 300 ml Laboratory Tests 06/05/20 12:11: POC Whole Blood Glucose 107H 06/06/20 00:00: POC Whole Blood Glucose 126H 06/06/20 03:05: White Blood Count 12.5H, Red Blood Count 3.33L, Hemoglobin 9.1L, Hematocrit 27.1L, Mean Corpuscular Volume 81, Mean Corpuscular Hemoglobin 27.3, Mean Corpuscular Hemoglobin Concent 33.6, Red Cell Distribution Width 16.1H, Platelet Count 454H, Mean Platelet Volume 5.2L, Neutrophils (%) (Auto) 63.9, Lymphocytes (%) (Auto) 18.3L, Monocytes (%) (Auto) 15.3H, Eosinophils (%) (Auto) 0.6, Basophils (%) (Auto) 1.9, Sodium Level 140, Potassium Level 3.6, Chloride Level 103, Carbon Dioxide Level 31, Anion Gap 6, Blood Urea Nitrogen 48H, Creatinine 1.4H, Estimat Glomerular Filtration Rate 43.9, Glucose Level 129H, Calcium Level 7.6L, Magnesium Level 1.3L, Total Bilirubin 0.4, Aspartate Amino Transf (AST/SGOT) 45H, Alanine Aminotransferase (ALT/SGPT) 35, Alkaline Phosphatase 259H, Pro-B-Type Natriuretic Peptide 82354Q, Total Protein 6.2L, Albumin 1.0L, Globulin 5.2, Albumin/Globulin Ratio 0.2L 06/06/20 05:39: POC Whole Blood Glucose 121H Height (Feet): 5 Height (Inches): 3.00 Weight (Pounds): 174 Objective Elderly AA woman exam limited due to COVID isolation comfortable appearing (+) NG Feeding tube (+) trach tachycardic and periodic hypotension Assessment/Plan Status: stable Assessment/Plan: Assessment - Transaminitis, COVID-19 vs GB disease - Gallstones - Resp failure - s/p trach - Dysphagia - NGT - CHF - Pulm HTN - tachycardia and periodic hypotension - Renal failure Recommendations - monitor LFT - Continue TF - await swallow eval - Will place PEG if fails swallow - Abx - anticoagulation with Lovenox Justine Torres MD Jun 06, 2020 08:14
--- NOTE | 2020-06-06 08:42 | Nephrology Progress Note ---
Assessment/Plan Plan MELODY resolving. MOF due to Covid 19 MOF resolving Subjective Subjective Much more alert Objective Objective Last 24 Hour Vital Signs Date Time Temp Pulse Resp B/P (MAP) Pulse Ox O2 Delivery O2 Flow Rate FiO2 06/06/20 08:00 40 06/06/20 08:00 Mechanical Ventilator Mechanical Ventilator 06/06/20 08:00 100.0 106 23 97/65 (76) 100 06/06/20 07:14 98 14 99 Mechanical Ventilator 40 102 20 40 06/06/20 05:41 69 100/86 06/06/20 04:00 40 06/06/20 04:00 Mechanical Ventilator Mechanical Ventilator 06/06/20 04:00 106 06/06/20 04:00 98.9 105 15 109/56 (73) 98 06/06/20 02:34 114 25 40 06/06/20 00:00 Mechanical Ventilator Mechanical Ventilator 06/06/20 00:00 114 103/58 06/06/20 00:00 98.3 114 18 103/58 (73) 100 06/05/20 22:38 122 20 40 06/05/20 20:00 40 06/05/20 20:00 Mechanical Ventilator Mechanical Ventilator 06/05/20 20:00 125 06/05/20 20:00 98.4 123 22 104/57 (73) 100 06/05/20 19:21 126 23 99 Mechanical Ventilator 40 122 24 40 06/05/20 18:42 110/64 (79) 06/05/20 17:31 129 91/53 06/05/20 16:22 99.1 129 26 91/53 (66) 100 06/05/20 16:22 40 06/05/20 15:56 Mechanical Ventilator Mechanical Ventilator 06/05/20 15:29 127 06/05/20 15:09 12 25 100 Mechanical Ventilator 40 126 28 40 06/05/20 12:18 97.3 117 22 105/63 (77) 100 06/05/20 12:00 40 06/05/20 12:00 117 105/63 06/05/20 11:40 113 06/05/20 11:28 Mechanical Ventilator Mechanical Ventilator 06/05/20 11:05 116 22 40 06/05/20 09:17 113 Intake and Output 06/05/20 06/06/20 19:00 07:00 Intake Total 660 ml 600 ml Output Total 2000 ml 1400 ml Balance -1340 ml -800 ml Free Water 180 ml 160 ml Tube Feeding 480 ml 440 ml Output Urine Total 1700 ml 1400 ml Stool Total 300 ml Laboratory Tests 06/05/20 12:11: POC Whole Blood Glucose 107H 06/06/20 00:00: POC Whole Blood Glucose 126H 06/06/20 03:05: White Blood Count 12.5H, Red Blood Count 3.33L, Hemoglobin 9.1L, Hematocrit 27.1L, Mean Corpuscular Volume 81, Mean Corpuscular Hemoglobin 27.3, Mean Corpuscular Hemoglobin Concent 33.6, Red Cell Distribution Width 16.1H, Platelet Count 454H, Mean Platelet Volume 5.2L, Neutrophils (%) (Auto) 63.9, Lymphocytes (%) (Auto) 18.3L, Monocytes (%) (Auto) 15.3H, Eosinophils (%) (Auto) 0.6, Basophils (%) (Auto) 1.9, Sodium Level 140, Potassium Level 3.6, Chloride Level 103, Carbon Dioxide Level 31, Anion Gap 6, Blood Urea Nitrogen 48H, Creatinine 1.4H, Estimat Glomerular Filtration Rate 43.9, Glucose Level 129H, Calcium Level 7.6L, Magnesium Level 1.3L, Total Bilirubin 0.4, Aspartate Amino Transf (AST/SGOT) 45H, Alanine Aminotransferase (ALT/SGPT) 35, Alkaline Phosphatase 259H, Pro-B-Type Natriuretic Peptide 30122Y, Total Protein 6.2L, Albumin 1.0L, Globulin 5.2, Albumin/Globulin Ratio 0.2L 06/06/20 05:39: POC Whole Blood Glucose 121H Height (Feet): 5 Height (Inches): 3.00 Weight (Pounds): 174 Objective CV Tach +Irr Trach OK Lungs B Ronchi Abd SNT. BS + E No CCE Ruth Coyne MD Jun 06, 2020 08:42
[2020-06-06] MEDS: Digoxin 0.125mg tab ORAL SCH (09:01)
[2020-06-06] MEDS: Enoxaparin 60mg Inj SUBQ SCH (09:03)
--- NOTE | 2020-06-06 09:30 | Pulmonology Progress Note ---
Subjective ROS Limited/Unobtainable: Yes Constitutional: Denies: fever Musculoskeletal: Denies: pain Allergies: Coded Allergies: CIPROFLOXACIN (Verified Allergy, Unknown, 09/27/17) All Systems: reviewed and negative except above Subjective on vent- awaiting gt NSVT noted and PAF comfortable COVID- reduced LOC Objective Last 24 Hour Vital Signs Date Time Temp Pulse Resp B/P (MAP) Pulse Ox O2 Delivery O2 Flow Rate FiO2 06/06/20 09:01 106 06/06/20 08:00 40 06/06/20 08:00 Mechanical Ventilator Mechanical Ventilator 06/06/20 08:00 100.0 106 23 97/65 (76) 100 06/06/20 07:14 98 14 99 Mechanical Ventilator 40 102 20 40 06/06/20 05:41 69 100/86 06/06/20 04:00 40 06/06/20 04:00 Mechanical Ventilator Mechanical Ventilator 06/06/20 04:00 106 06/06/20 04:00 98.9 105 15 109/56 (73) 98 06/06/20 02:34 114 25 40 06/06/20 00:00 Mechanical Ventilator Mechanical Ventilator 06/06/20 00:00 114 103/58 06/06/20 00:00 98.3 114 18 103/58 (73) 100 06/05/20 22:38 122 20 40 06/05/20 20:00 40 06/05/20 20:00 Mechanical Ventilator Mechanical Ventilator 06/05/20 20:00 125 06/05/20 20:00 98.4 123 22 104/57 (73) 100 06/05/20 19:21 126 23 99 Mechanical Ventilator 40 122 24 40 06/05/20 18:42 110/64 (79) 06/05/20 17:31 129 91/53 06/05/20 16:22 99.1 129 26 91/53 (66) 100 06/05/20 16:22 40 06/05/20 15:56 Mechanical Ventilator Mechanical Ventilator 06/05/20 15:29 127 06/05/20 15:09 12 25 100 Mechanical Ventilator 40 126 28 40 06/05/20 12:18 97.3 117 22 105/63 (77) 100 06/05/20 12:00 40 06/05/20 12:00 117 105/63 06/05/20 11:40 113 06/05/20 11:28 Mechanical Ventilator Mechanical Ventilator 06/05/20 11:05 116 22 40 Intake and Output 06/05/20 06/06/20 19:00 07:00 Intake Total 660 ml 600 ml Output Total 2000 ml 1400 ml Balance -1340 ml -800 ml Free Water 180 ml 160 ml Tube Feeding 480 ml 440 ml Output Urine Total 1700 ml 1400 ml Stool Total 300 ml Objective deferred due to COVID Laboratory Tests 06/05/20 12:11: POC Whole Blood Glucose 107H 06/06/20 00:00: POC Whole Blood Glucose 126H 06/06/20 03:05: White Blood Count 12.5H, Red Blood Count 3.33L, Hemoglobin 9.1L, Hematocrit 27.1L, Mean Corpuscular Volume 81, Mean Corpuscular Hemoglobin 27.3, Mean Derik uscular Hemoglobin Concent 33.6, Red Cell Distribution Width 16.1H, Platelet Count 454H, Mean Platelet Volume 5.2L, Neutrophils (%) (Auto) 63.9, Lymphocytes (%) (Auto) 18.3L, Monocytes (%) (Auto) 15.3H, Eosinophils (%) (Auto) 0.6, Basophils (%) (Auto) 1.9, Sodium Level 140, Potassium Level 3.6, Chloride Level 103, Carbon Dioxide Level 31, Anion Gap 6, Blood Urea Nitrogen 48H, Creatinine 1.4H, Estimat Glomerular Filtration Rate 43.9, Glucose Level 129H, Calcium Level 7.6L, Magnesium Level 1.3L, Total Bilirubin 0.4, Aspartate Amino Transf (AST /SGOT) 45H, Alanine Aminotransferase (ALT/SGPT) 35, Alkaline Phosphatase 259H, Pro-B-Type Natriuretic Peptide 71150P, Total Protein 6.2L, Albumin 1.0L, Globulin 5.2, Albumin/Globulin Ratio 0.2L 06/06/20 05:39: POC Whole Blood Glucose 121H Current Medications Medications (Trade) Dose Ordered Sig/Ghislaine Route PRN Reason Start Time Stop Time Status Last Admin Dose Admin Acetaminophen (Tylenol) 650 mg Q4H PRN NG Temp >100.5 05/25/20 16:15 06/24/20 16:14 06/01/20 22:17 Albuterol Sulfate (Proventil MDI) 2 puff Q4H PRN INH Shortness of Breath 05/11/20 20:00 08/01/20 11:59 05/13/20 10:30 Barium Sulfate (Varibar Honey) 250 ml NOW PRN MC RAD 06/05/20 10:30 06/08/20 10:17 Barium Sulfate (Varibar [place]) 240 ml NOW PRN RAD 06/05/20 10:30 06/08/20 10:17 Barium Sulfate (Varibar Pudding) 230 ml NOW PRN RAD 06/05/20 10:30 06/08/20 10:17 Barium Sulfate (Varibar Thin Liquid powder) 148 gm NOW PRN MC RAD 06/05/20 10:30 06/08/20 10:17 Dextrose (Dextrose 50%) 25 ml Q30M PRN IV Hypoglycemia 05/22/20 18:30 08/20/20 18:29 Dextrose (Dextrose 50%) 50 ml Q30M PRN IV Hypoglycemia 05/22/20 18:30 08/20/20 18:29 Digoxin (Lanoxin) 0.125 mg DAILY ORAL 06/05/20 09:00 09/03/20 08:59 06/06/20 09:01 Diltiazem HCl (Cardizem Tab) 90 mg EVERY 6 HOURS NG 06/05/20 06:00 07/05/20 05:59 06/05/20 17:31 Enoxaparin Sodium (Lovenox) 60 mg DAILY SUBQ 06/03/20 09:00 09/01/20 08:59 06/06/20 09:03 Insulin Aspart (NovoLOG) Q6HR SUBQ 05/23/20 00:00 08/20/20 20:59 06/02/20 00:00 Ipratropium [place] (Atrovent Inh) 1 puffs QIDRT INH 06/01/20 07:00 06/26/20 09:59 06/06/20 07:35 Lansoprazole (Prevacid) 30 mg DAILY NG 06/06/20 09:00 07/06/20 08:59 06/06/20 09:00 Levofloxacin (Levaquin) 250 mg DAILY NG 06/03/20 09:00 06/10/20 08:59 06/06/20 09:00 Loperamide HCl (Imodium) 2 mg Q6H PRN NG Diarrhea 05/26/20 17:45 06/25/20 17:44 06/03/20 15:04 Salmeterol Xinafoate/ Fluticasone (Advair 100/50 Diskus) 1 puffs BIDRT INH 05/11/20 22:00 08/09/20 21:59 06/05/20 09:20 Assessment/Plan Assessment/Plan Impression: COVID-19 Chronic obstructive pulmonary disease/Asthma Community acquired pneumonia Atrial fibrillation with RVR Elevated troponin Congestive heart Failure sinus tachycardia Hypoxemia transaminitis with gallstones acute on chronic renal failure acute respiratory failure hypotension tachycardia transaminitis MODS anemia NSVT Plan ID noted gi for GT/ rectal tube monitor vitals and control heart rate/ d/w cardiology if can proceed with GT Vent support/and trach care feeds per dietary on lovenox Bronchodilator therapy GT needed Monitor labs/ renal follow up - renal function still reduced- Covid 19 negative nutrition and NG feeds reviewed care and optimize position change and monitor skin surgical follow up noted monitor protein levels and adjust will need placement when gt placed DISCUSSED WITH DAUGHTER- AGREES TO GT AND SNF impression, plan, and exam edited and reviewed in detail care discussed with Aaron Bales MD Jun 06, 2020 09:30
--- NOTE | 2020-06-06 10:00 | NUR ---
NURSE NOTES: Family member pt daughter at bedside,updated re pt's status and plans of care,pt pulled up and repositioned to sides.
--- NOTE | 2020-06-06 11:47 | General Progress Note ---
Subjective ROS Limited/Unobtainable: Yes Constitutional: Reports: malaise, weakness HEENT: Reports: no symptoms Cardiovascular: Reports: no symptoms Respiratory: Reports: shortness of breath, sputum Gastrointestinal/Abdominal: Reports: difficulty swallowing Genitourinary: Reports: no symptoms Neurologic/Psychiatric: Reports: pre-existing deficit Endocrine: Reports: no symptoms Hematologic/Lymphatic: Reports: anemia Allergies: Coded Allergies: CIPROFLOXACIN (Verified Allergy, Unknown, 09/27/17) All Systems: reviewed and negative except above Subjective no events. remains on the vent. no distress. mild secretions. decreased diarrhea. +rectal tube. cxr noted- persistent migel infiltrates. tolerating NGT feeds. covid neg failed swallow eval low mg noted. renal fxn improved Objective Last 24 Hour Vital Signs Date Time Temp Pulse Resp B/P (MAP) Pulse Ox O2 Delivery O2 Flow Rate FiO2 06/06/20 09:01 106 06/06/20 08:00 40 06/06/20 08:00 Mechanical Ventilator Mechanical Ventilator 06/06/20 08:00 94 06/06/20 08:00 100.0 106 23 97/65 (76) 100 06/06/20 07:14 98 14 99 Mechanical Ventilator 40 102 20 40 06/06/20 05:41 69 100/86 06/06/20 04:00 40 06/06/20 04:00 Mechanical Ventilator Mechanical Ventilator 06/06/20 04:00 106 06/06/20 04:00 98.9 105 15 109/56 (73) 98 06/06/20 02:34 114 25 40 06/06/20 00:00 Mechanical Ventilator Mechanical Ventilator 06/06/20 00:00 114 103/58 06/06/20 00:00 98.3 114 18 103/58 (73) 100 06/05/20 22:38 122 20 40 06/05/20 20:00 40 06/05/20 20:00 Mechanical Ventilator Mechanical Ventilator 06/05/20 20:00 125 06/05/20 20:00 98.4 123 22 104/57 (73) 100 06/05/20 19:21 126 23 99 Mechanical Ventilator 40 122 24 40 06/05/20 18:42 110/64 (79) 06/05/20 17:31 129 91/53 06/05/20 16:22 99.1 129 26 91/53 (66) 100 06/05/20 16:22 40 06/05/20 15:56 Mechanical Ventilator Mechanical Ventilator 06/05/20 15:29 127 06/05/20 15:09 12 25 100 Mechanical Ventilator 40 126 28 40 06/05/20 12:18 97.3 117 22 105/63 (77) 100 06/05/20 12:00 40 06/05/20 12:00 117 105/63 Intake and Output 06/05/20 06/06/20 19:00 07:00 Intake Total 660 ml 600 ml Output Total 2000 ml 1400 ml Balance -1340 ml -800 ml Free Water 180 ml 160 ml Tube Feeding 480 ml 440 ml Output Urine Total 1700 ml 1400 ml Stool Total 300 ml Laboratory Tests 06/05/20 12:11: POC Whole Blood Glucose 107H 06/06/20 00:00: POC Whole Blood Glucose 126H 06/06/20 03:05: White Blood Count 12.5H, Red Blood Count 3.33L, Hemoglobin 9.1L, Hematocrit 27.1L, Mean Corpuscular Volume 81, Mean Corpuscular Hemoglobin 27.3, Mean Corpuscular Hemoglobin Concent 33.6, Red Cell Distribution Width 16.1H, Platelet Count 454H, Mean Platelet Volume 5.2L, Neutrophils (%) (Auto) 63.9, Lymphocytes (%) (Auto) 18.3L, Monocytes (%) (Auto) 15.3H, Eosinophils (%) (Auto) 0.6, Basophils (%) (Auto) 1.9, Sodium Level 140, Potassium Level 3.6, Chloride Level 103, Carbon Dioxide Level 31, Anion Gap 6, Blood Urea Nitrogen 48H, Creatinine 1.4H, Estimat Glomerular Filtration Rate 43.9, Glucose Level 129H, Calcium Level 7.6L, Magnesium Level 1.3L, Total Bilirubin 0.4, Aspartate Amino Transf (AST/SGOT) 45H, Alanine Aminotransferase (ALT/SGPT) 35, Alkaline Phosphatase 259H, Pro-B-Type Natriuretic Peptide 76341C, Total Protein 6.2L, Albumin 1.0L, Globulin 5.2, Albumin/Globulin Ratio 0.2L 06/06/20 05:39: POC Whole Blood Glucose 121H Height (Feet): 5 Height (Inches): 3.00 Weight (Pounds): 174 Objective General Appearance: WD/WN, no apparent distress, alert. 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 grossly normal, alert, oriented x 3, responsive Skin: normal pigmentation Lymphatic: normal anterior cervical (L), normal anterior cervical (R) Assessment/Plan Problem List: (1) Pulmonary fibrosis ICD Codes: J84.10 - Pulmonary fibrosis, unspecified SNOMED: 75704687 (2) History of asthma ICD Codes: Z87.09 - Personal history of other diseases of the respiratory system SNOMED: 976909802 (3) Asthma ICD Codes: J45.909 - Unspecified asthma, uncomplicated SNOMED: 871642133 (4) NSTEMI (non-ST elevated myocardial infarction) ICD Codes: I21.4 - Non-ST elevation (NSTEMI) myocardial infarction SNOMED: 687299471 (5) Elevated troponin ICD Codes: R79.89 - Other specified abnormal findings of blood chemistry SNOMED: 658565423, 282196217, 211743327 (6) COPD (chronic obstructive pulmonary disease) ICD Codes: J44.9 - Chronic obstructive pulmonary disease, unspecified SNOMED: 67185443 (7) Atrial fibrillation with RVR ICD Codes: I48.91 - Unspecified atrial fibrillation SNOMED: 696487531960047 (8) Community acquired pneumonia ICD Codes: J18.9 - Pneumonia, unspecified organism SNOMED: 150713291 Status: stable Assessment/Plan: vent support resp rx and suctioning as needed NGT feeds GT per GI Po levofloxacin turn q2 skin care imodium for diarrhea dvt/stress ulcer prophylaxis remains gaurded will d/w Dtr. wants to wait on GT till next week. requesting one more speech eval early next week Bradford Linn MD Jun 06, 2020 11:47
[2020-06-06 12:00] VITALS: BP 108/68
--- NOTE | 2020-06-06 12:00 | NUR ---
NURSE NOTES: Pt febrile temp 101.1,Tylenol 650 mg per NGT given will continue to monitor temperature
[2020-06-06] MEDS: Acetaminophen 650mg/20.3ml NG PRN (12:06)
[2020-06-06] MEDS ORDERED: Tubing IV Secondary IV ONE ×2 (12:08→17:30)
[2020-06-06] MEDS ORDERED: NS 275ml ONE ×2 (12:08→17:30)
[2020-06-06] MEDS ORDERED: Tubing IV Blood Pump IV ONE (12:08)
--- NOTE | 2020-06-06 12:58 | Surgery Progress Note ---
Surgery Progress Note Subjective Procedure Performed trach Additional Comments no acute events labs noted exam stable Objective Last 24 Hour Vital Signs Date Time Temp Pulse Resp B/P (MAP) Pulse Ox O2 Delivery O2 Flow Rate FiO2 06/06/20 12:10 40 06/06/20 12:05 115 108/68 06/06/20 12:00 87 06/06/20 12:00 101.1 111 14 108/68 (81) 100 06/06/20 12:00 Mechanical Ventilator Mechanical Ventilator 06/06/20 11:09 103 14 100 Mechanical Ventilator 40 88 14 40 06/06/20 09:01 106 06/06/20 08:00 40 06/06/20 08:00 Mechanical Ventilator Mechanical Ventilator 06/06/20 08:00 94 06/06/20 08:00 100.0 106 23 97/65 (76) 100 06/06/20 07:14 98 14 99 Mechanical Ventilator 40 102 20 40 06/06/20 05:41 69 100/86 06/06/20 04:00 40 06/06/20 04:00 Mechanical Ventilator Mechanical Ventilator 06/06/20 04:00 106 06/06/20 04:00 98.9 105 15 109/56 (73) 98 06/06/20 02:34 114 25 40 06/06/20 00:00 Mechanical Ventilator Mechanical Ventilator 06/06/20 00:00 114 103/58 06/06/20 00:00 98.3 114 18 103/58 (73) 100 06/05/20 22:38 122 20 40 06/05/20 20:00 40 06/05/20 20:00 Mechanical Ventilator Mechanical Ventilator 06/05/20 20:00 125 06/05/20 20:00 98.4 123 22 104/57 (73) 100 06/05/20 19:21 126 23 99 Mechanical Ventilator 40 122 24 40 06/05/20 18:42 110/64 (79) 06/05/20 17:31 129 91/53 06/05/20 16:22 99.1 129 26 91/53 (66) 100 06/05/20 16:22 40 06/05/20 15:56 Mechanical Ventilator Mechanical Ventilator 06/05/20 15:29 127 06/05/20 15:09 12 25 100 Mechanical Ventilator 40 126 28 40 I&O Intake and Output 06/05/20 06/06/20 19:00 07:00 Intake Total 660 ml 600 ml Output Total 2000 ml 1400 ml Balance -1340 ml -800 ml Free Water 180 ml 160 ml Tube Feeding 480 ml 440 ml Output Urine Total 1700 ml 1400 ml Stool Total 300 ml Dressing: other Wound: other Cardiovascular: RSR Respiratory: decreased breath sounds Abdomen: soft, non-tender, present bowel sounds Extremities: no tenderness, no cyanosis Laboratory Tests Test 06/06/20 00:00 06/06/20 03:05 06/06/20 05:39 06/06/20 11:53 POC Whole Blood Glucose 126 MG/DL (74-106) H 121 MG/DL (74-106) H 103 MG/DL (74-106) White Blood Count 12.5 K/UL (4.8-10.8) H Red Blood Count 3.33 M/UL (4.20-5.40) L Hemoglobin 9.1 G/DL (12.0-16.0) L Hematocrit 27.1 % (37.0-47.0) L Mean Corpuscular Volume 81 FL (80-99) Mean Corpuscular Hemoglobin 27.3 PG (27.0-31.0) Mean Corpuscular Hemoglobin Concent 33.6 G/DL (32.0-36.0) Red Cell Distribution Width 16.1 % (11.6-14.8) H Platelet Count 454 K/UL (150-450) H Mean Platelet Volume 5.2 FL (6.5-10.1) L Neutrophils (%) (Auto) 63.9 % (45.0-75.0) Lymphocytes (%) (Auto) 18.3 % (20.0-45.0) L Monocytes (%) (Auto) 15.3 % (1.0-10.0) H Eosinophils (%) (Auto) 0.6 % (0.0-3.0) Basophils (%) (Auto) 1.9 % (0.0-2.0) Sodium Level 140 MMOL/L (136-145) Potassium Level 3.6 MMOL/L (3.5-5.1) Chloride Level 103 MMOL/L (98-107) Carbon Dioxide Level 31 MMOL/L (21-32) Anion Gap 6 mmol/L (5-15) Blood Urea Nitrogen 48 mg/dL (7-18) H Creatinine 1.4 MG/DL (0.55-1.30) H Estimat Glomerular Filtration Rate 43.9 mL/min (>60) Glucose Level 129 MG/DL (74-106) H Calcium Level 7.6 MG/DL (8.5-10.1) L Magnesium Level 1.3 MG/DL (1.8-2.4) L Total Bilirubin 0.4 MG/DL (0.2-1.0) Aspartate Amino Transf (AST/SGOT) 45 U/L (15-37) H Alanine Aminotransferase (ALT/SGPT) 35 U/L (12-78) Alkaline Phosphatase 259 U/L (46-116) H Pro-B-Type Natriuretic Peptide 03583 pg/mL (0-125) H Total Protein 6.2 G/DL (6.4-8.2) L Albumin 1.0 G/DL (3.4-5.0) L Globulin 5.2 g/dL Albumin/Globulin Ratio 0.2 (1.0-2.7) L Plan Problems: (1) Elevated troponin (2) Atrial fibrillation with RVR (3) COVID-19 Assessment & Plan: ++ as per pulm and ID trach DAILY ESTIMATED NEEDS: Needs based on Critical Care, ARF/ 56kg abw 22-28 kcals/kg 7843-0554 total kcals 0.8-1.5 (increase w/ renal improvement) g protein/kg 45-84 g total protein 25-30 mL/kg 0030-7013 total fluid mLs NUTRITION DIAGNOSIS: * Altered nutrition related lab values r/t clinical status as evidenced by elev BUN(82), creat(3.8) trending up, critical ABG (low pH, elev CO2)-> now improved. * Swallowing difficulty R/T respiratory status as evidenced by s/p oral intubation, on OGT feeds. 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 ENTERAL NUTRITION RECOMMENDATIONS: Nepro @ 35ml/hr x 24 hrs to provide 840ml, 1512kcal, 68g prot, 610ml free water * W/ worsening renal fxn, rec to continue Nepro * As tolerated, increase goal rate to 35ml/hr x 24 hrs to meet 100% est kcal/prot needs ADDITIONAL RECOMMENDATIONS: 1) Calibrated bedscale wt 2) Monitor renal fxn and lytes, need to continue Nepro Creat trending up 3) Rec niss w/ solumedrol (4) Community acquired pneumonia (5) COPD (chronic obstructive pulmonary disease) (6) Pulmonary fibrosis (7) Asthma (8) History of asthma (9) NSTEMI (non-ST elevated myocardial infarction) (10) Moderate to severe pulmonary hypertension (11) Asthma exacerbation (12) Abnormal LFTs Assessment & Plan: afebrile, HD stable labs noted lft's elevated US reviewed exam benign gb likely reactive from underlying pathology unlikely cholecystitis clinically fluid overload trend labs will monitor exam clinically covid + prognosis guarded cxr reviewed on abx worsening plan repeat US - noted cannot get hida given covid labs noted worsening leukocytosis Gallbladder demonstrates wall thickening and wall edema, gallbladder wall measuring up to 6 mm thick. There are gallstones. Sonographic Escoto's sign is negative. Common bile duct measures 3 mm in diameter. No intrahepatic biliary ductal dilatation. Liver demonstrates normal echogenicity, no focal abnormality . Portal vein and hepatic veins are patent. Pancreas is unremarkable. Spleen is unremarkable. Left kidney measures 9.2 cm in length. Right kidney measures 9.9 cm length. Both kidneys demonstrate normal echogenicity. There is no hydronephrosis. Small cyst is seen in the right kidney. . Abdominal aorta was not imaged . There is trace ascites. There is a small right pleural effusion incidentally noted Impression: Small right pleural effusion. Trace ascites Cholelithiasis. Gallbladder wall thickening may be related to hemodynamic factors causing the pleural fluid and ascites, but could also indicate acute cholecystitis. Consider nuclear medicine hepatobiliary scan if there is high clinical suspicion. Negative for dilated bile ducts Small right renal cyst incidentally noted (13) Acute respiratory failure with hypoxia Assessment & Plan: s/p trach discussed with family comfortable weaning Quentin Sanchez Jun 06, 2020 12:58
--- NOTE | 2020-06-06 13:00 | NUR ---
NURSE NOTES: Pt temp down to T98.9 after TYlenol and cooling measures applied to forehead and armpits.
--- NOTE | 2020-06-06 13:13 | Cardiology Progress Note ---
Subjective DATE OF SERVICE: Jun 06, 2020 Remains on vent via trach. Continues with NGTube feeds; repeat swallow eval pending. Monitor: PAFib/flutter now with slowing rates, and rare nonsustained VTach. BP range improved, but still with low episodes. CXR (06/02) reviewed: bilateral infiltrates with left pl eff'n. ICU logs and cardiology care plan reviewed and updated Objective Last 24 Hour Vital Signs Date Time Temp Pulse Resp B/P (MAP) Pulse Ox O2 Delivery O2 Flow Rate FiO2 06/06/20 12:10 40 06/06/20 12:05 115 108/68 06/06/20 12:00 87 06/06/20 12:00 101.1 111 14 108/68 (81) 100 06/06/20 12:00 Mechanical Ventilator Mechanical Ventilator 06/06/20 11:09 103 14 100 Mechanical Ventilator 40 88 14 40 06/06/20 09:01 106 06/06/20 08:00 40 06/06/20 08:00 Mechanical Ventilator Mechanical Ventilator 06/06/20 08:00 94 06/06/20 08:00 100.0 106 23 97/65 (76) 100 06/06/20 07:14 98 14 99 Mechanical Ventilator 40 102 20 40 06/06/20 05:41 69 100/86 06/06/20 04:00 40 06/06/20 04:00 Mechanical Ventilator Mechanical Ventilator 06/06/20 04:00 106 06/06/20 04:00 98.9 105 15 109/56 (73) 98 06/06/20 02:34 114 25 40 06/06/20 00:00 Mechanical Ventilator Mechanical Ventilator 06/06/20 00:00 114 103/58 06/06/20 00:00 98.3 114 18 103/58 (73) 100 06/05/20 22:38 122 20 40 06/05/20 20:00 40 06/05/20 20:00 Mechanical Ventilator Mechanical Ventilator 06/05/20 20:00 125 06/05/20 20:00 98.4 123 22 104/57 (73) 100 06/05/20 19:21 126 23 99 Mechanical Ventilator 40 122 24 40 06/05/20 18:42 110/64 (79) 06/05/20 17:31 129 91/53 06/05/20 16:22 99.1 129 26 91/53 (66) 100 06/05/20 16:22 40 06/05/20 15:56 Mechanical Ventilator Mechanical Ventilator 06/05/20 15:29 127 06/05/20 15:09 12 25 100 Mechanical Ventilator 40 126 28 40 ROS: unchanged from my eval of 05/03/20 HEENT: Orally intubated, Mechanically Ventilated, Thin secretions ET Tube RHYTHM: Afib LUNGS: no accessory muscle use, expiratory wheezing, diminished breath sounds CARDIAC: normal S1 and S2, no murmur, irregularly irregular ABDOMEN: normal bowel sounds, non tender, soft, no organomegaly EXTREMITIES: no calf tenderness, +1 edema Laboratory Tests Test 06/06/20 00:00 06/06/20 03:05 06/06/20 05:39 06/06/20 11:53 POC Whole Blood Glucose 126 MG/DL (74-106) H 121 MG/DL (74-106) H 103 MG/DL (74-106) White Blood Count 12.5 K/UL (4.8-10.8) H Red Blood Count 3.33 M/UL (4.20-5.40) L Hemoglobin 9.1 G/DL (12.0-16.0) L Hematocrit 27.1 % (37.0-47.0) L Mean Corpuscular Volume 81 FL (80-99) Mean Corpuscular Hemoglobin 27.3 PG (27.0-31.0) Mean Corpuscular Hemoglobin Concent 33.6 G/DL (32.0-36.0) Red Cell Distribution Width 16.1 % (11.6-14.8) H Platelet Count 454 K/UL (150-450) H Mean Platelet Volume 5.2 FL (6.5-10.1) L Neutrophils (%) (Auto) 63.9 % (45.0-75.0) Lymphocytes (%) (Auto) 18.3 % (20.0-45.0) L Monocytes (%) (Auto) 15.3 % (1.0-10.0) H Eosinophils (%) (Auto) 0.6 % (0.0-3.0) Basophils (%) (Auto) 1.9 % (0.0-2.0) Sodium Level 140 MMOL/L (136-145) Potassium Level 3.6 MMOL/L (3.5-5.1) Chloride Level 103 MMOL/L (98-107) Carbon Dioxide Level 31 MMOL/L (21-32) Anion Gap 6 mmol/L (5-15) Blood Urea Nitrogen 48 mg/dL (7-18) H Creatinine 1.4 MG/DL (0.55-1.30) H Estimat Glomerular Filtration Rate 43.9 mL/min (>60) Glucose Level 129 MG/DL (74-106) H Calcium Level 7.6 MG/DL (8.5-10.1) L Magnesium Level 1.3 MG/DL (1.8-2.4) L Total Bilirubin 0.4 MG/DL (0.2-1.0) Aspartate Amino Transf (AST/SGOT) 45 U/L (15-37) H Alanine Aminotransferase (ALT/SGPT) 35 U/L (12-78) Alkaline Phosphatase 259 U/L (46-116) H Pro-B-Type Natriuretic Peptide 79933 pg/mL (0-125) H Total Protein 6.2 G/DL (6.4-8.2) L Albumin 1.0 G/DL (3.4-5.0) L Globulin 5.2 g/dL Albumin/Globulin Ratio 0.2 (1.0-2.7) L Assessment/Plan Assessment/Plan Acute on chronic respiratory acidosis Worsening anemia Acute respiratory failure - s/p trach. Shock LE edema due to severe pulmonary hypertension and right heart strain COPD exacerb with active bronchospasm Lactic acidosis COVID 19 PNA Acute on chr renal failure Chronic systolic/diastolic CHF Pulmonary fibrosis with chronic hypoxia Paroxysmal AFib with RVR Hx Multifocal atrial arrhythmias Pulmonary HTN - severe Hx NSVTach Severe protein/calorie malnutrition Acute myocardial ischemia Resolving transaminitis PRBC transfusion for hb below 7gm/dl Vent support with on-going weaning efforts following trach Diltiazem dose titrated down, based on ventricular rate and BP parameters. Steroids per pulmonary Continue digoxin for add'l rate control and inotropy. Hypotonic IVF until free water deficit corrected Full anticoagulation for cardioembolic prophyl. Monitor liver fxn EGD and PEG if fails swallow eval next week. Simone Perez MD Jun 06, 2020 13:12
--- NOTE | 2020-06-06 15:00 | NUR ---
NURSE NOTES: oral care done ,oral/tracheal secretions suctioned PRN.
[2020-06-06 16:00] VITALS: BP 103/58
--- NOTE | 2020-06-06 18:00 | NUR ---
NURSE NOTES: Bed bath given,pt pulled up ,turned and repositoned to sides.
--- NOTE | 2020-06-06 19:10 | NUR ---
NURSE HAND-OFF REPORT: Important Events on Shift:febrile T101.1 Patient Status: stable Diet: Vital AF1.2 at 40 ml/hr NGT Pending Orders: N/A Pending Results/Labs:N/A Pending MD notification:N/A Latest Vital Signs: Temperature 97.8 , Pulse 91 , B/P 115 /44 , Respiratory Rate 16 , O2 SAT 100 , Mechanical Ventilator, O2 Flow Rate 4.0 . Vital Sign Comment: stable EKG Rhythm: Sinus Rhythm Rhythm change?: Y Notified?: N -Dr. Chris MCCRACKEN Response: Order Received& Read Back Latest Lechuga Fall Score: 35 Fall Risk: Medium Risk Safety Measures: Call light Within Reach, Bed Alarm Zone 1, Side Rails Side Rails x3, Bed position Low and Locked. Fall Precautions: Yellow Socks Yellow Gown Door Sign Patient Fall Education Report given to London Egan RN..
--- NOTE | 2020-06-06 19:14 | NUR ---
NURSE NOTES: Received report from Marizol RN, pt. in bed awake, breathing unlabored and even, appears to be alert to name, no signs or symptoms of acute cardiac or respiratory distress noted, bed alarm on, side rails up x's3 and safety brakes engaged, aspiration precautions and skin precautions observed, pt. appears to be tolerating current vent settings well- AC 14, TV 500, Fio2 at 40% and peep 5- no distress noted, NGT rt. Nare running Vital AF 1.2 at 40cc/hr- no residual noted, rectal tube and Riojas intact and draining to gravity, pt. appears clean and dry, RT. hand 22G IV intact and patent- TKO, safety measures continued, will continue with plan of care.
[2020-06-06 20:00] VITALS: BP 115/44
--- NOTE | 2020-06-06 20:33 | NUR ---
NURSE NOTES: pt. showing SB on monitor for 1999 strip- EKG done showing A Fib- pt. remains stable - HX of A fib - will continue to monitor pt. and with plan of care. Daughter at bedside with patient.
--- NOTE | 2020-06-06 23:30 | NUR ---
NURSE NOTES: pt. in bed awake- appears to be tolerating current vent settings well- no distress noted, appears to be tolerating feeding- no residual noted- bed bath given and linens changed, repositioned and turned pt. - oral care provided, will continue to monitor pt. and with plan of care.
[2020-06-07] VITALS: BP 122/63
[2020-06-07 04:00] VITALS: BP 136/71
[2020-06-07] MEDS: NovoLOG Insulin Flexpen SUBQ SCH ×3 (05:52→18:00)
[2020-06-07] MEDS: dilTIAZem HCl 60mg tab NG SCH ×4 (05:56→23:10)
--- NOTE | 2020-06-07 06:53 | NUR ---
NURSE HAND-OFF REPORT: Important Events on Shift: SB- pt. remains stable - ekg done Patient Status: stable Diet: VITAL af 1.2 Pending Orders: Pending Results/Labs: Pending MD notification: Latest Vital Signs: Temperature 97.9 , Pulse 91 , B/P 141 /62 , Respiratory Rate 18 , O2 SAT 100 , Mechanical Ventilator, O2 Flow Rate 4.0 . Vital Sign Comment: EKG Rhythm: Sinus Rhythm Rhythm change?: MD Notified?: N - MD Response: Latest Lechuga Fall Score: 35 Fall Risk: Medium Risk Safety Measures: Call light Within Reach, Bed Alarm Zone 1, Side Rails Side Rails x3, Bed position Low and Locked. Fall Precautions: Yellow Socks Yellow Gown Door Sign Patient Fall Education Report given to DAMIAN Mcconnell, pt. remains stable and no signs of distress noted- aware to f/u on any abnormal am labs.
--- NOTE | 2020-06-07 06:55 | NUR ---
NURSE NOTES: Important Events on Shift: SB- pt. remains stable - ekg done Patient Status: stable Diet: VITAL af 1.2 Pending Orders: Pending Results/Labs: Pending MD notification: Latest Vital Signs: Temperature 97.9 , Pulse 91 , B/P 141 /62 , Respiratory Rate 18 , O2 SAT 100 , Mechanical Ventilator, O2 Flow Rate 4.0 . Vital Sign Comment: EKG Rhythm: A fib Rhythm change?: MD Notified?: N - MD Response: Latest Lechuga Fall Score: 35 Fall Risk: Medium Risk Safety Measures: Call light Within Reach, Bed Alarm Zone 1, Side Rails Side Rails x3, Bed position Low and Locked. Fall Precautions: Yellow Socks Yellow Gown Door Sign Patient Fall Education Report given to DAMIAN Mcconnell, pt. remains stable and no signs of distress noted- aware to f/u on any abnormal am labs.
--- NOTE | 2020-06-07 07:58 | NUR ---
Received report from DAMIAN Callahan. The patient is resting on the bed without acute distress or shortness of breath. The patient is responding to verbal stimuli and opening eyes spontaneously but non-verbal due to trach. Communication made by facial expression and body movement. Afib with HR of 100s on the application support engineer. The patient is on following vent setting and oxygen saturation is 100%: Shiley 8, AC 14, TV 500, FiO2 40%, and PEEP 5. The patient has R NGT @ 65cm that is intact and patent, placement confirmed, no residual noted and running Vital AF @ 40mL/hr per order. The patient's Riojas and Rectal tube intact and draining by gravity. Skin issue noted and dressing intact. The patient has R hand 22G PIV that is intact and patent and TKO at this time. The patient's bed in the lowest position, call light in reach, and fall and aspiration precaution reinforced. Will follow up the lab and order. Will closely monitor the patient. Will continue plan of care.
[2020-06-07 08:00] VITALS: BP 104/48
--- NOTE | 2020-06-07 08:30 | NUR ---
NURSE NOTES: Initial nursing assessment done. Initial vital signs taken. The patient is stable at this time. Will closely monitor the patient. Will continue plan of care.
[2020-06-07] MEDS: Digoxin 0.125mg tab ORAL SCH (09:25)
[2020-06-07] MEDS: Ipratropium Bromide Inhaler INH SCH ×4 (09:44→20:11)
--- NOTE | 2020-06-07 10:00 | NUR ---
NURSE NOTES: Medications administered per order. The patient tolerated well. Afib w/ HR of 100s noted and Digoxin administered per order. Will closely monitor the patient. Will continue plan of care.
--- NOTE | 2020-06-07 11:30 | NUR ---
NURSE HAND-OFF REPORT: Important Events on Shift: Stable throughout the shift Afib w/ HR of 70-100s, Tolerating TF well Patient Status: Stable, Full code Diet: R NGT @ 65cm feeding Vital AF @ 40mL/hr per order. No residual noted. Pending Orders: N Pending Results/Labs: N Pending MD notification: N Latest Vital Signs: Temperature 97.7 , Pulse 88 , B/P 104 /48 , Respiratory Rate 20 , O2 SAT 100 , Mechanical Ventilator, O2 Flow Rate 4.0 . Vital Sign Comment: Stable EKG Rhythm: Sinus Rhythm Rhythm change?: N MD Notified?: N -Dr. Chris MCCRACKEN Response: Order Received& Read Back Latest Lechuga Fall Score: 50 Fall Risk: High Risk Safety Measures: Call light Within Reach, Bed Alarm Zone 1, Side Rails Side Rails x3, Bed position Low and Locked. Fall Precautions: Yellow Socks Yellow Gown Door Sign Patient Fall Education Report given to DAMIAN Pettit. The patient is stable at this time. Endorsed plan of care.
[2020-06-07 12:00] VITALS: BP 109/54
--- NOTE | 2020-06-07 12:29 | NUR ---
NURSE NOTES:Patient in Sinus tachy, administered 1200 Cardizem, patient suctioned and oral care provided.
--- NOTE | 2020-06-07 13:16 | NUR ---
NURSE NOTES: Pt awake/obtunded in bed, mechanically ventilated, with no evidence of dyspnea or pain. Vital signs stable with SR w/ PACs @ 64. IV access right thumb with NS @ TKO. Nasogastric tube in place, right nostril at approx 60 cm [place], verified by aspiration and auscultation, with Vital AF at 40 ml/hr, 0 residual, 60 ml free water flush given. [place] cath in place, patent, draining clear yellow urine into collection bag at foot of bed. Rectal tube in place diverting liquid stool to collection at foot of bed. Bed left in low position, side rails up x 3 and call light left near pt's hand.
--- NOTE | 2020-06-07 14:09 | Pulmonology Progress Note ---
Subjective ROS Limited/Unobtainable: Yes Constitutional: Denies: fever Musculoskeletal: Denies: pain Allergies: Coded Allergies: CIPROFLOXACIN (Verified Allergy, Unknown, 09/27/17) All Systems: reviewed and negative except above Subjective on vent- awaiting gt NSVT noted and PAF comfortable COVID- reduced LOC Objective Last 24 Hour Vital Signs Date Time Temp Pulse Resp B/P (MAP) Pulse Ox O2 Delivery O2 Flow Rate FiO2 06/07/20 12:27 101 109/54 06/07/20 12:00 Mechanical Ventilator Mechanical Ventilator 06/07/20 12:00 40 06/07/20 12:00 98.8 90 16 109/54 (72) 100 06/07/20 12:00 106 06/07/20 09:44 88 20 100 Mechanical Ventilator 30 87 20 30 06/07/20 09:25 112 06/07/20 08:00 71 06/07/20 08:00 97.7 105 18 104/48 (66) 100 06/07/20 08:00 40 06/07/20 08:00 Mechanical Ventilator Mechanical Ventilator 06/07/20 05:56 91 141/62 06/07/20 04:00 Mechanical Ventilator Mechanical Ventilator 06/07/20 04:00 40 06/07/20 04:00 97.9 94 18 136/71 (92) 100 06/07/20 03:48 66 06/07/20 02:55 59 14 Mechanical Ventilator 30 06/07/20 00:00 40 06/07/20 00:00 98.0 95 16 122/63 (82) 99 06/07/20 00:00 Mechanical Ventilator Mechanical Ventilator 06/06/20 23:56 94 06/06/20 23:20 97 118/75 06/06/20 23:01 81 16 Mechanical Ventilator 40 06/06/20 20:00 97.8 91 16 115/44 (67) 100 06/06/20 20:00 Mechanical Ventilator Mechanical Ventilator 06/06/20 20:00 40 06/06/20 19:28 54 06/06/20 19:04 67 22 100 Mechanical Ventilator 40 60 16 40 06/06/20 17:41 101 06/06/20 16:00 97.9 101 14 103/58 (73) 100 06/06/20 16:00 Mechanical Ventilator Mechanical Ventilator 06/06/20 16:00 40 06/06/20 16:00 83 06/06/20 15:05 76 28 100 Mechanical Ventilator 40 80 29 40 Intake and Output 06/06/20 06/07/20 19:00 07:00 Intake Total 980 ml 980 ml Output Total 1200 ml 950 ml Balance -220 ml 30 ml Free Water 200 ml 500 ml Tube Feeding 480 ml 480 ml Other 300 ml Output Urine Total 1100 ml 900 ml Stool Total 100 ml 50 ml Objective deferred due to COVID Laboratory Tests 06/06/20 17:38: POC Whole Blood Glucose [Pending] 06/06/20 23:10: POC Whole Blood Glucose [Pending] 06/07/20 04:59: POC Whole Blood Glucose 126H 06/07/20 12:15: POC Whole Blood Glucose 120H Current Medications Medications (Trade) Dose Ordered Sig/Ghislaine Route PRN Reason Start Time Stop Time Status Last Admin Dose Admin Acetaminophen (Tylenol) 650 mg Q4H PRN NG Temp >100.5 05/25/20 16:15 06/24/20 16:14 06/06/20 12:06 Barium Sulfate (Varibar Honey) 250 ml NOW PRN MC RAD 06/05/20 10:30 06/08/20 10:17 Barium Sulfate (Varibar [place]) 240 ml NOW PRN MC RAD 06/05/20 10:30 06/08/20 10:17 Barium Sulfate (Varibar Pudding) 230 ml NOW PRN MC RAD 06/05/20 10:30 06/08/20 10:17 Barium Sulfate (Varibar Thin Liquid powder) 148 gm NOW PRN MC RAD 06/05/20 10:30 06/08/20 10:17 Dextrose (Dextrose 50%) 25 ml Q30M PRN IV Hypoglycemia 05/22/20 18:30 08/20/20 18:29 Dextrose (Dextrose 50%) 50 ml Q30M PRN IV Hypoglycemia 05/22/20 18:30 08/20/20 18:29 Digoxin (Lanoxin) 0.125 mg DAILY ORAL 06/05/20 09:00 09/03/20 08:59 06/07/20 09:25 Diltiazem HCl (Cardizem Tab) 60 mg EVERY 6 HOURS NG 06/07/20 06:00 07/07/20 05:59 06/07/20 12:27 Insulin Aspart (NovoLOG) Q6HR SUBQ 05/23/20 00:00 08/20/20 20:59 06/02/20 00:00 Ipratropium [place] (Atrovent Inh) 1 puffs QIDRT INH 06/01/20 07:00 06/26/20 09:59 06/07/20 12:12 Lansoprazole (Prevacid) 30 mg DAILY NG 06/06/20 09:00 07/06/20 08:59 06/07/20 09:25 Levofloxacin (Levaquin) 250 mg DAILY NG 06/03/20 09:00 06/10/20 08:59 06/07/20 09:25 Loperamide HCl (Imodium) 2 mg Q6H PRN NG Diarrhea 05/26/20 17:45 06/25/20 17:44 06/03/20 15:04 Assessment/Plan Assessment/Plan Impression: COVID-19 Chronic obstructive pulmonary disease/Asthma Community acquired pneumonia Atrial fibrillation with RVR Elevated troponin Congestive heart Failure sinus tachycardia Hypoxemia transaminitis with gallstones acute on chronic renal failure acute respiratory failure hypotension tachycardia transaminitis MODS anemia NSVT Plan ID noted gi for GT/ rectal tube monitor vitals and control heart rate/ d/w cardiology if can proceed with GT Vent support/and trach care feeds per dietary on lovenox Bronchodilator therapy GT needed Monitor labs/ renal follow up - renal function still reduced- Covid 19 negative nutrition and NG feeds reviewed care and optimize position change and monitor skin surgical follow up noted monitor protein levels and adjust will need placement when gt placed DISCUSSED WITH DAUGHTER- AGREES TO GT AND SNF impression, plan, and exam edited and reviewed in detail care discussed with Aaron Bales MD Jun 07, 2020 14:09
--- NOTE | 2020-06-07 14:17 | Infectious Diseases Prog Note ---
Assessment/Plan Assessment/Plan A 1. COVID 19 pneumonia Test positive: 05/03 -05/09 2. renal failure 3. increased LFT 4. COPD 5. CHF, Diastolic & systolic 6. asthma 7. Cholelithiasis r/o cholecystitis 8. Hypoxic hypercapnic respiratory failure 9. Pseudomonas pneumonia 10. Sepsis 11. Funguria P 1. Discontinue Levaquin 2. Observe off of antibiotic 2. Will f/u cultures Subjective ROS Limited/Unobtainable: Yes Constitutional: Denies: fever Respiratory: Denies: shortness of breath Allergies: Coded Allergies: CIPROFLOXACIN (Verified Allergy, Unknown, 09/27/17) Objective Last 24 Hour Vital Signs Date Time Temp Pulse Resp B/P (MAP) Pulse Ox O2 Delivery O2 Flow Rate FiO2 06/07/20 12:27 101 109/54 06/07/20 12:00 Mechanical Ventilator Mechanical Ventilator 06/07/20 12:00 40 06/07/20 12:00 98.8 90 16 109/54 (72) 100 06/07/20 12:00 106 06/07/20 09:44 88 20 100 Mechanical Ventilator 30 87 20 30 06/07/20 09:25 112 06/07/20 08:00 71 06/07/20 08:00 97.7 105 18 104/48 (66) 100 06/07/20 08:00 40 06/07/20 08:00 Mechanical Ventilator Mechanical Ventilator 06/07/20 05:56 91 141/62 06/07/20 04:00 Mechanical Ventilator Mechanical Ventilator 06/07/20 04:00 40 06/07/20 04:00 97.9 94 18 136/71 (92) 100 06/07/20 03:48 66 06/07/20 02:55 59 14 Mechanical Ventilator 30 06/07/20 00:00 40 06/07/20 00:00 98.0 95 16 122/63 (82) 99 06/07/20 00:00 Mechanical Ventilator Mechanical Ventilator 06/06/20 23:56 94 06/06/20 23:20 97 118/75 06/06/20 23:01 81 16 Mechanical Ventilator 40 06/06/20 20:00 97.8 91 16 115/44 (67) 100 06/06/20 20:00 Mechanical Ventilator Mechanical Ventilator 06/06/20 20:00 40 06/06/20 19:28 54 06/06/20 19:04 67 22 100 Mechanical Ventilator 40 60 16 40 06/06/20 17:41 101 06/06/20 16:00 97.9 101 14 103/58 (73) 100 06/06/20 16:00 Mechanical Ventilator Mechanical Ventilator 06/06/20 16:00 40 06/06/20 16:00 83 06/06/20 15:05 76 28 100 Mechanical Ventilator 40 80 29 40 Height (Feet): 5 Height (Inches): 3.00 Weight (Pounds): 174 HEENT: mucous membranes moist, status post trach Respiratory/Chest: lungs clear, other - on ventilator Cardiovascular: tachycardia, other - central line Abdomen: soft, non tender, other - NG tube feeding Extremities: other - edema of hands Neurologic/Psychiatric: alert, responsive Laboratory Tests Test 06/06/20 17:38 06/06/20 23:10 06/07/20 04:59 06/07/20 12:15 POC Whole Blood Glucose Pending Pending 126 MG/DL (74-106) H 120 MG/DL (74-106) H Current Medications Medications (Trade) Dose Ordered Sig/Ghislaine Route PRN Reason Start Time Stop Time Status Last Admin Dose Admin Acetaminophen (Tylenol) 650 mg Q4H PRN NG Temp >100.5 05/25/20 16:15 06/24/20 16:14 06/06/20 12:06 Barium Sulfate (Varibar Honey) 250 ml NOW PRN MC RAD 06/05/20 10:30 06/08/20 10:17 Barium Sulfate (Varibar [place]) 240 ml NOW PRN MC RAD 06/05/20 10:30 06/08/20 10:17 Barium Sulfate (Varibar Pudding) 230 ml NOW PRN MC RAD 06/05/20 10:30 06/08/20 10:17 Barium Sulfate (Varibar Thin Liquid powder) 148 gm NOW PRN MC RAD 06/05/20 10:30 06/08/20 10:17 Dextrose (Dextrose 50%) 25 ml Q30M PRN IV Hypoglycemia 05/22/20 18:30 08/20/20 18:29 Dextrose (Dextrose 50%) 50 ml Q30M PRN IV Hypoglycemia 05/22/20 18:30 08/20/20 18:29 Digoxin (Lanoxin) 0.125 mg DAILY ORAL 06/05/20 09:00 09/03/20 08:59 06/07/20 09:25 Diltiazem HCl (Cardizem Tab) 60 mg EVERY 6 HOURS NG 06/07/20 06:00 07/07/20 05:59 06/07/20 12:27 Insulin Aspart (NovoLOG) Q6HR SUBQ 05/23/20 00:00 08/20/20 20:59 06/02/20 00:00 Ipratropium [place] (Atrovent Inh) 1 puffs QIDRT INH 06/01/20 07:00 06/26/20 09:59 06/07/20 12:12 Lansoprazole (Prevacid) 30 mg DAILY NG 06/06/20 09:00 07/06/20 08:59 06/07/20 09:25 Levofloxacin (Levaquin) 250 mg DAILY NG 06/03/20 09:00 06/10/20 08:59 06/07/20 09:25 Loperamide HCl (Imodium) 2 mg Q6H PRN NG Diarrhea 05/26/20 17:45 06/25/20 17:44 06/03/20 15:04 Freddy Woodson MD Jun 07, 2020 14:17
--- NOTE | 2020-06-07 15:21 | General Progress Note ---
Subjective ROS Limited/Unobtainable: No Constitutional: Reports: malaise, weakness HEENT: Reports: no symptoms Cardiovascular: Reports: no symptoms Respiratory: Reports: cough, shortness of breath, sputum Gastrointestinal/Abdominal: Reports: difficulty swallowing Genitourinary: Reports: no symptoms Neurologic/Psychiatric: Reports: pre-existing deficit Endocrine: Reports: no symptoms Hematologic/Lymphatic: Reports: anemia Allergies: Coded Allergies: CIPROFLOXACIN (Verified Allergy, Unknown, 09/27/17) All Systems: reviewed and negative except above Subjective no events. remains on the vent. no distress. mild secretions. decreased diarrhea. +rectal tube. +diarrhea tolerating NGT feeds. covid neg failed swallow eval repeat swallow possible gt if fails Objective Last 24 Hour Vital Signs Date Time Temp Pulse Resp B/P (MAP) Pulse Ox O2 Delivery O2 Flow Rate FiO2 06/07/20 12:27 101 109/54 06/07/20 12:12 110 22 100 Mechanical Ventilator 30 110 22 30 06/07/20 12:00 Mechanical Ventilator Mechanical Ventilator 06/07/20 12:00 40 06/07/20 12:00 98.8 90 16 109/54 (72) 100 06/07/20 12:00 106 06/07/20 09:44 88 20 100 Mechanical Ventilator 30 87 20 30 06/07/20 09:25 112 06/07/20 08:00 71 06/07/20 08:00 97.7 105 18 104/48 (66) 100 06/07/20 08:00 40 06/07/20 08:00 Mechanical Ventilator Mechanical Ventilator 06/07/20 05:56 91 141/62 06/07/20 04:00 Mechanical Ventilator Mechanical Ventilator 06/07/20 04:00 40 06/07/20 04:00 97.9 94 18 136/71 (92) 100 06/07/20 03:48 66 06/07/20 02:55 59 14 Mechanical Ventilator 30 06/07/20 00:00 40 06/07/20 00:00 98.0 95 16 122/63 (82) 99 06/07/20 00:00 Mechanical Ventilator Mechanical Ventilator 06/06/20 23:56 94 06/06/20 23:20 97 118/75 06/06/20 23:01 81 16 Mechanical Ventilator 40 06/06/20 20:00 97.8 91 16 115/44 (67) 100 06/06/20 20:00 Mechanical Ventilator Mechanical Ventilator 06/06/20 20:00 40 06/06/20 19:28 54 06/06/20 19:04 67 22 100 Mechanical Ventilator 40 60 16 40 06/06/20 17:41 101 06/06/20 16:00 97.9 101 14 103/58 (73) 100 06/06/20 16:00 Mechanical Ventilator Mechanical Ventilator 06/06/20 16:00 40 06/06/20 16:00 83 Intake and Output 06/06/20 06/07/20 19:00 07:00 Intake Total 980 ml 980 ml Output Total 1200 ml 950 ml Balance -220 ml 30 ml Free Water 200 ml 500 ml Tube Feeding 480 ml 480 ml Other 300 ml Output Urine Total 1100 ml 900 ml Stool Total 100 ml 50 ml Laboratory Tests 06/06/20 17:38: POC Whole Blood Glucose [Pending] 06/06/20 23:10: POC Whole Blood Glucose [Pending] 06/07/20 04:59: POC Whole Blood Glucose 126H 06/07/20 12:15: POC Whole Blood Glucose 120H Height (Feet): 5 Height (Inches): 3.00 Weight (Pounds): 174 Objective General Appearance: WD/WN, no apparent distress, alert. orally intubated EENT: PERRL/EOMI Neck: non-tender, normal alignment, supple Cardiovascular: normal rate, regular rhythm Respiratory/Chest: chest wall non-tender, lungs clear, normal breath sounds, no respiratory distress, no accessory muscle use Abdomen: normal bowel sounds, non tender, soft, no organomegaly Edema: no edema noted Arm (L), no edema noted Arm (R) Neurologic: speech and hearing clinic director II-XII grossly normal, alert, oriented x 3, responsive Skin: normal pigmentation Lymphatic: normal anterior cervical (L), normal anterior cervical (R) Assessment/Plan Problem List: (1) Pulmonary fibrosis ICD Codes: J84.10 - Pulmonary fibrosis, unspecified SNOMED: 97080614 (2) History of asthma ICD Codes: Z87.09 - Personal history of other diseases of the respiratory system SNOMED: 430488642 (3) Asthma ICD Codes: J45.909 - Unspecified asthma, uncomplicated SNOMED: 582461401 (4) NSTEMI (non-ST elevated myocardial infarction) ICD Codes: I21.4 - Non-ST elevation (NSTEMI) myocardial infarction SNOMED: 634177804 (5) Elevated troponin ICD Codes: R79.89 - Other specified abnormal findings of blood chemistry SNOMED: 755349333, 624485064, 356097242 (6) COPD (chronic obstructive pulmonary disease) ICD Codes: J44.9 - Chronic obstructive pulmonary disease, unspecified SNOMED: 37674043 (7) Atrial fibrillation with RVR ICD Codes: I48.91 - Unspecified atrial fibrillation SNOMED: 342190670134289 (8) Community acquired pneumonia ICD Codes: J18.9 - Pneumonia, unspecified organism SNOMED: 265944607 Status: stable Assessment/Plan: vent support resp rx and suctioning as needed NGT feeds GT per GI Po levofloxacin turn q2 skin care imodium for diarrhea dvt/stress ulcer prophylaxis remains gaurded will d/w Dtr. wants to wait on GT till next week. requesting one more speech eval early next week Bradford Linn MD Jun 07, 2020 15:21
[2020-06-07 15:40] LABS: EOSINOPHILS % (AUTO) 0.4 % (0.0-3.0); HEMATOCRIT 25.3 % (37.0-47.0); HEMOGLOBIN 8.4 G/DL (12.0-16.0); LYMPHOCYTES % (AUTO) 18.6 % (20.0-45.0); MEAN CORPUSCULAR VOLUME 84 FL (80-99); MONOCYTES % (AUTO) 13.4 % (1.0-10.0); NEUTROPHILS % (AUTO) 65.7 % (45.0-75.0); PLATELET COUNT 472 K/UL (150-450); RED BLOOD COUNT 3.01 M/UL (4.20-5.40); RED CELL DISTRIBUTION WIDTH 17.5 % (11.6-14.8); WHITE BLOOD COUNT 13.3 K/UL (4.8-10.8)
[2020-06-07 15:45] LABS: CALCIUM 7.6 MG/DL (8.5-10.1); CREATININE 1.4 MG/DL (0.55-1.30); POTASSIUM 3.5 MMOL/L (3.5-5.1)
[2020-06-07 16:00] VITALS: BP_SYST 116; BP_SYST 120; BP_DIAS 51; BP_DIAS 58
--- NOTE | 2020-06-07 17:42 | Surgery Progress Note ---
Surgery Progress Note Subjective Procedure Performed trach Additional Comments leukocytosis imaging ordered labs noted exam unchanged Objective Last 24 Hour Vital Signs Date Time Temp Pulse Resp B/P (MAP) Pulse Ox O2 Delivery O2 Flow Rate FiO2 06/07/20 16:30 66 14 100 Mechanical Ventilator 30 66 14 30 06/07/20 16:11 104 06/07/20 16:00 40 06/07/20 16:00 98.1 104 14 120/58 (78) 100 06/07/20 16:00 96.8 98 14 116/51 (72) 100 06/07/20 15:28 Mechanical Ventilator Mechanical Ventilator 06/07/20 12:27 101 109/54 06/07/20 12:12 110 22 100 Mechanical Ventilator 30 110 22 30 06/07/20 12:00 Mechanical Ventilator Mechanical Ventilator 06/07/20 12:00 40 06/07/20 12:00 98.8 90 16 109/54 (72) 100 06/07/20 12:00 106 06/07/20 09:44 88 20 100 Mechanical Ventilator 30 87 20 30 06/07/20 09:25 112 06/07/20 08:00 71 06/07/20 08:00 97.7 105 18 104/48 (66) 100 06/07/20 08:00 40 06/07/20 08:00 Mechanical Ventilator Mechanical Ventilator 06/07/20 05:56 91 141/62 06/07/20 04:00 Mechanical Ventilator Mechanical Ventilator 06/07/20 04:00 40 06/07/20 04:00 97.9 94 18 136/71 (92) 100 06/07/20 03:48 66 06/07/20 02:55 59 14 Mechanical Ventilator 30 06/07/20 00:00 40 06/07/20 00:00 98.0 95 16 122/63 (82) 99 06/07/20 00:00 Mechanical Ventilator Mechanical Ventilator 06/06/20 23:56 94 06/06/20 23:20 97 118/75 06/06/20 23:01 81 16 Mechanical Ventilator 40 06/06/20 20:00 97.8 91 16 115/44 (67) 100 06/06/20 20:00 Mechanical Ventilator Mechanical Ventilator 06/06/20 20:00 40 06/06/20 19:28 54 06/06/20 19:04 67 22 100 Mechanical Ventilator 40 60 16 40 I&O Intake and Output 06/06/20 06/07/20 19:00 07:00 Intake Total 980 ml 980 ml Output Total 1200 ml 950 ml Balance -220 ml 30 ml Free Water 200 ml 500 ml Tube Feeding 480 ml 480 ml Other 300 ml Output Urine Total 1100 ml 900 ml Stool Total 100 ml 50 ml Dressing: saturated Cardiovascular: RSR Respiratory: decreased breath sounds Abdomen: soft, present bowel sounds Extremities: no edema, no tenderness, no cyanosis Laboratory Tests Test 06/06/20 23:10 06/07/20 04:59 06/07/20 12:15 06/07/20 14:50 POC Whole Blood Glucose Pending 126 MG/DL (74-106) H 120 MG/DL (74-106) H White Blood Count 13.3 K/UL (4.8-10.8) H Red Blood Count 3.01 M/UL (4.20-5.40) L Hemoglobin 8.4 G/DL (12.0-16.0) L Hematocrit 25.3 % (37.0-47.0) L Mean Corpuscular Volume 84 FL (80-99) Mean Corpuscular Hemoglobin 27.9 PG (27.0-31.0) Mean Corpuscular Hemoglobin Concent 33.2 G/DL (32.0-36.0) Red Cell Distribution Width 17.5 % (11.6-14.8) H Platelet Count 472 K/UL (150-450) H Mean Platelet Volume 5.8 FL (6.5-10.1) L Neutrophils (%) (Auto) 65.7 % (45.0-75.0) Lymphocytes (%) (Auto) 18.6 % (20.0-45.0) L Monocytes (%) (Auto) 13.4 % (1.0-10.0) H Eosinophils (%) (Auto) 0.4 % (0.0-3.0) Basophils (%) (Auto) 2.0 % (0.0-2.0) Sodium Level 138 MMOL/L (136-145) Potassium Level 3.5 MMOL/L (3.5-5.1) Chloride Level 103 MMOL/L (98-107) Carbon Dioxide Level 32 MMOL/L (21-32) Anion Gap 3 mmol/L (5-15) L Blood Urea Nitrogen 45 mg/dL (7-18) H Creatinine 1.4 MG/DL (0.55-1.30) H Estimat Glomerular Filtration Rate 43.9 mL/min (>60) Glucose Level 121 MG/DL (74-106) H Calcium Level 7.6 MG/DL (8.5-10.1) L Plan Problems: (1) Elevated troponin (2) Atrial fibrillation with RVR (3) COVID-19 Assessment & Plan: ++ as per pulm and ID trach DAILY ESTIMATED NEEDS: Needs based on Critical Care, ARF/ 56kg abw 22-28 kcals/kg 5687-8506 total kcals 0.8-1.5 (increase w/ renal improvement) g protein/kg 45-84 g total protein 25-30 mL/kg 1740-5109 total fluid mLs NUTRITION DIAGNOSIS: * Altered nutrition related lab values r/t clinical status as evidenced by elev BUN(82), creat(3.8) trending up, critical ABG (low pH, elev CO2)-> now improved. * Swallowing difficulty R/T respiratory status as evidenced by s/p oral intubation, on OGT feeds. 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: LENS HARDENER eval post extubation ENTERAL NUTRITION RECOMMENDATIONS: Nepro @ 35ml/hr x 24 hrs to provide 840ml, 1512kcal, 68g prot, 610ml free water * W/ worsening renal fxn, rec to continue Nepro * As tolerated, increase goal rate to 35ml/hr x 24 hrs to meet 100% est kcal/prot needs ADDITIONAL RECOMMENDATIONS: 1) Calibrated bedscale wt 2) Monitor renal fxn and lytes, need to continue Nepro Creat trending up 3) Rec niss w/ solumedrol (4) Community acquired pneumonia (5) COPD (chronic obstructive pulmonary disease) (6) Pulmonary fibrosis (7) Asthma (8) History of asthma (9) NSTEMI (non-ST elevated myocardial infarction) (10) Moderate to severe pulmonary hypertension (11) Asthma exacerbation (12) Abnormal LFTs Assessment & Plan: afebrile, HD stable labs noted lft's elevated US reviewed exam benign gb likely reactive from underlying pathology unlikely cholecystitis clinically fluid overload trend labs will monitor exam clinically covid + prognosis guarded cxr reviewed on abx worsening plan repeat US - noted cannot get hida given covid labs noted worsening leukocytosis Gallbladder demonstrates wall thickening and wall edema, gallbladder wall measuring up to 6 mm thick. There are gallstones. Sonographic Escoto's sign is negative. Common bile duct measures 3 mm in diameter. No intrahepatic biliary ductal dilatation. Liver demonstrates normal echogenicity, no focal abnormality. Portal vein and hepatic veins are patent. Pancreas is unremarkable. Spleen is unremarkable. Left kidney measures 9.2 cm in length. Right kidney measures 9.9 cm length. Both kidneys demonstrate normal echogenicity. There is no hydronephrosis. Small cyst is seen in the right kidney. . Abdominal aorta was not imaged . There is trace ascites. There is a small right pleural effusion incidentally noted Impression: Small right pleural effusion. Trace ascites Cholelithiasis. Gallbladder wall thickening may be related to hemodynamic factors causing the pleural fluid and ascites, but could also indicate acute cholecystitis. Consider nuclear medicine hepatobiliary scan if there is high clinical suspicion. Negative for dilated bile ducts Small right renal cyst incidentally noted (13) Acute respiratory failure with hypoxia Assessment & Plan: s/p trach discussed with family comfortable weaning Quentin Sanchez Jun 07, 2020 17:42
--- NOTE | 2020-06-07 19:24 | General Progress Note ---
Subjective Allergies: Coded Allergies: CIPROFLOXACIN (Verified Allergy, Unknown, 09/27/17) Subjective Above noted tolerating TF sleepy Objective Last 24 Hour Vital Signs Date Time Temp Pulse Resp B/P (MAP) Pulse Ox O2 Delivery O2 Flow Rate FiO2 06/07/20 18:45 66 116/51 06/07/20 16:30 66 14 100 Mechanical Ventilator 30 66 14 30 06/07/20 16:11 104 06/07/20 16:00 40 06/07/20 16:00 98.1 104 14 120/58 (78) 100 06/07/20 16:00 96.8 98 14 116/51 (72) 100 06/07/20 15:28 Mechanical Ventilator Mechanical Ventilator 06/07/20 12:27 101 109/54 06/07/20 12:12 110 22 100 Mechanical Ventilator 30 110 22 30 06/07/20 12:00 Mechanical Ventilator Mechanical Ventilator 06/07/20 12:00 40 06/07/20 12:00 98.8 90 16 109/54 (72) 100 06/07/20 12:00 106 06/07/20 09:44 88 20 100 Mechanical Ventilator 30 87 20 30 06/07/20 09:25 112 06/07/20 08:00 71 06/07/20 08:00 97.7 105 18 104/48 (66) 100 06/07/20 08:00 40 06/07/20 08:00 Mechanical Ventilator Mechanical Ventilator 06/07/20 05:56 91 141/62 06/07/20 04:00 Mechanical Ventilator Mechanical Ventilator 06/07/20 04:00 40 06/07/20 04:00 97.9 94 18 136/71 (92) 100 06/07/20 03:48 66 06/07/20 02:55 59 14 Mechanical Ventilator 30 06/07/20 00:00 40 06/07/20 00:00 98.0 95 16 122/63 (82) 99 06/07/20 00:00 Mechanical Ventilator Mechanical Ventilator 06/06/20 23:56 94 06/06/20 23:20 97 118/75 06/06/20 23:01 81 16 Mechanical Ventilator 40 06/06/20 20:00 97.8 91 16 115/44 (67) 100 06/06/20 20:00 Mechanical Ventilator Mechanical Ventilator 06/06/20 20:00 40 06/06/20 19:28 54 Intake and Output 06/06/20 06/07/20 19:00 07:00 Intake Total 980 ml 980 ml Output Total 1200 ml 950 ml Balance -220 ml 30 ml Free Water 200 ml 500 ml Tube Feeding 480 ml 480 ml Other 300 ml Output Urine Total 1100 ml 900 ml Stool Total 100 ml 50 ml Laboratory Tests 06/06/20 23:10: POC Whole Blood Glucose [Pending] 06/07/20 04:59: POC Whole Blood Glucose 126H 06/07/20 12:15: POC Whole Blood Glucose 120H 06/07/20 14:50: White Blood Count 13.3H, Red Blood Count 3.01L, Hemoglobin 8.4L, Hematocrit 25.3L, Mean Corpuscular Volume 84, Mean Corpuscular Hemoglobin 27.9, Mean Corpuscular Hemoglobin Concent 33.2, Red Cell Distribution Width 17.5H, Platelet Count 472H, Mean Platelet Volume 5.8L, Neutrophils (%) (Auto) 65.7, Lymphocytes (%) (Auto) 18.6L, Monocytes (%) (Auto) 13.4H, Eosinophils (%) (Auto) 0.4, Basophils (%) (Auto) 2.0, Sodium Level 138, Potassium Level 3.5, Chloride Level 103, Carbon Dioxide Level 32, Anion Gap 3L, Blood Urea Nitrogen 45H, Creatinine 1.4H, Estimat Glomerular Filtration Rate 43.9, Glucose Level 121H, Calcium Level 7.6L 06/07/20 18:39: POC Whole Blood Glucose 112H Height (Feet): 5 Height (Inches): 3.00 Weight (Pounds): 174 Objective Elderly AA woman exam limited due to COVID isolation comfortable appearing (+) NG Feeding tube (+) trach tachycardic and periodic hypotension Assessment/Plan Status: stable Assessment/Plan: Assessment - Transaminitis, COVID-19 vs GB disease - Gallstones - Resp failure - s/p trach - Dysphagia - NGT - CHF - Pulm HTN - Arrhythmia and periodic hypotension - Renal failure Recommendations - monitor LFT - Continue TF - PEG tomorrow at noon - Abx -Lovenox held. Will restart Mon night Justine Torres MD Jun 07, 2020 19:23
--- NOTE | 2020-06-07 19:37 | NUR ---
NURSE HAND-OFF REPORT: Important Events on Shift: Patient Status: stable Diet: Vital A.F @40ml/HR continuous Pending Orders: Pending Results/Labs: Pending MD notification: Latest Vital Signs: Temperature 96.8 , Pulse 66 , B/P 116 /51 , Respiratory Rate 14 , O2 SAT 100 , Mechanical Ventilator, O2 Flow Rate 4.0 . Vital Sign Comment: EKG Rhythm: Sinus Tachycardia Rhythm change?: N MD Notified?: N -Dr. Chris MCCRACKEN Response: Order Received& Read Back Latest [place] Fall Score: 50 Fall Risk: High Risk Safety Measures: Call light Within Reach, Bed Alarm Zone 1, Side Rails Side Rails x3, Bed position Low and Locked. Fall Precautions:yes Yellow Socks Yellow Gown Door Sign Patient Fall Education Report given to Sheryl
--- NOTE | 2020-06-07 19:38 | NUR ---
NURSE NOTES: Received report from DAMIAN Martinez. Pt awake, alert, and unable to make needs known. Answers to yes or no questions. EKG shows SR at 88 bpm. Pt tolerating vent settings well at prescribed settings of A/C 14, Vt 500, 40% saturating 100%. NGT to the right nare running Vital AF at 40 cc. 0 residual. Riojas draining well to gravity. Rectal tube intact and draining. Bed in lowest and locked position. Bed alarm on. Will continue morning.
[2020-06-07 20:00] VITALS: BP 106/45
--- NOTE | 2020-06-07 21:00 | NUR ---
NURSE NOTES: Daughter, Heike, at bedside for one hour. Will not sign consent because she requests one more Swallow Eval, despite recent eval completed. Says she will d/w primary MD in AM.
--- NOTE | 2020-06-07 21:15 | NUR ---
NURSE NOTES: Dr. Torres and Dr. Jefferson made aware of daughter's decision to hold PEG placement in AM until eval. New orders for Swallow Study tomorrow AM.
--- NOTE | 2020-06-07 21:55 | NUR ---
NURSE NOTES: Pt experienced AV Block. Dr. Perez at bedside. No orders for EKG. New orders to hold Cardizem until further notice and D/C Digoxin. Will carry out plan of care.
[2020-06-07] MEDS ORDERED: D5 1/2NS 1,000 ML IV SCH (23:59)
[2020-06-08] VITALS: BP 110/56
--- NOTE | 2020-06-08 01:00 | NUR ---
NURSE NOTES: Pt transferred from room 237 to 242-2 in stable condition.
--- NOTE | 2020-06-08 01:14 | Cardiology Progress Note ---
Subjective DATE OF SERVICE: Jun 07, 2020 Remains on vent via trach. Continues with NGTube feeds; repeat swallow eval pending. Monitor: PAFib/flutter now with slowing rates, and pauses. BP range improved, but still with low episodes. CXR (06/02) reviewed: bilateral infiltrates with left pl eff'n. ICU logs and cardiology care plan reviewed and updated Objective Last 24 Hour Vital Signs Date Time Temp Pulse Resp B/P (MAP) Pulse Ox O2 Delivery O2 Flow Rate FiO2 06/08/20 00:00 98.7 80 18 110/56 (74) 100 06/08/20 00:00 Mechanical Ventilator Mechanical Ventilator 06/08/20 00:00 40 06/07/20 23:10 80 110/56 06/07/20 20:00 Mechanical Ventilator Mechanical Ventilator 06/07/20 20:00 40 06/07/20 20:00 96 06/07/20 20:00 98.9 75 17 106/45 (65) 100 06/07/20 19:00 101 18 Mechanical Ventilator 30 06/07/20 18:45 66 116/51 06/07/20 16:30 66 14 100 Mechanical Ventilator 30 66 14 30 06/07/20 16:11 104 06/07/20 16:00 40 06/07/20 16:00 98.1 104 14 120/58 (78) 100 06/07/20 16:00 96.8 98 14 116/51 (72) 100 06/07/20 15:28 Mechanical Ventilator Mechanical Ventilator 06/07/20 12:27 101 109/54 06/07/20 12:12 110 22 100 Mechanical Ventilator 30 110 22 30 06/07/20 12:00 Mechanical Ventilator Mechanical Ventilator 06/07/20 12:00 40 06/07/20 12:00 98.8 90 16 109/54 (72) 100 06/07/20 12:00 106 06/07/20 09:44 88 20 100 Mechanical Ventilator 30 87 20 30 06/07/20 09:25 112 06/07/20 08:00 71 06/07/20 08:00 97.7 105 18 104/48 (66) 100 06/07/20 08:00 40 06/07/20 08:00 Mechanical Ventilator Mechanical Ventilator 06/07/20 05:56 91 141/62 06/07/20 04:00 Mechanical Ventilator Mechanical Ventilator 06/07/20 04:00 40 06/07/20 04:00 97.9 94 18 136/71 (92) 100 06/07/20 03:48 66 06/07/20 02:55 59 14 Mechanical Ventilator 30 ROS: unchanged from my eval of 05/03/20 HEENT: Orally intubated, Mechanically Ventilated, Thin secretions ET Tube RHYTHM: Afib LUNGS: no accessory muscle use, expiratory wheezing, diminished breath sounds CARDIAC: normal S1 and S2, no murmur, irregularly irregular ABDOMEN: normal bowel sounds, non tender, soft, no organomegaly EXTREMITIES: no calf tenderness, +1 edema Laboratory Tests Test 06/07/20 04:59 06/07/20 12:15 06/07/20 14:50 06/07/20 18:39 POC Whole Blood Glucose 126 MG/DL (74-106) H 120 MG/DL (74-106) H 112 MG/DL (74-106) H White Blood Count 13.3 K/UL (4.8-10.8) H Red Blood Count 3.01 M/UL (4.20-5.40) L Hemoglobin 8.4 G/DL (12.0-16.0) L Hematocrit 25.3 % (37.0-47.0) L Mean Corpuscular Volume 84 FL (80-99) Mean Corpuscular Hemoglobin 27.9 PG (27.0-31.0) Mean Corpuscular Hemoglobin Concent 33.2 G/DL (32.0-36.0) Red Cell Distribution Width 17.5 % (11.6-14.8) H Platelet Count 472 K/UL (150-450) H Mean Platelet Volume 5.8 FL (6.5-10.1) L Neutrophils (%) (Auto) 65.7 % (45.0-75.0) Lymphocytes (%) (Auto) 18.6 % (20.0-45.0) L Monocytes (%) (Auto) 13.4 % (1.0-10.0) H Eosinophils (%) (Auto) 0.4 % (0.0-3.0) Basophils (%) (Auto) 2.0 % (0.0-2.0) Sodium Level 138 MMOL/L (136-145) Potassium Level 3.5 MMOL/L (3.5-5.1) Chloride Level 103 MMOL/L (98-107) Carbon Dioxide Level 32 MMOL/L (21-32) Anion Gap 3 mmol/L (5-15) L Blood Urea Nitrogen 45 mg/dL (7-18) H Creatinine 1.4 MG/DL (0.55-1.30) H Estimat Glomerular Filtration Rate 43.9 mL/min (>60) Glucose Level 121 MG/DL (74-106) H Calcium Level 7.6 MG/DL (8.5-10.1) L Test 06/08/20 00:07 POC Whole Blood Glucose 121 MG/DL (74-106) H Assessment/Plan Assessment/Plan Acute on chronic respiratory acidosis Worsening anemia Acute respiratory failure - s/p trach. Shock LE edema due to severe pulmonary hypertension and right heart strain COPD exacerb with active bronchospasm Lactic acidosis COVID 19 PNA Acute on chr renal failure Chronic systolic/diastolic CHF Pulmonary fibrosis with chronic hypoxia Paroxysmal AFib with slow rates Hx Multifocal atrial arrhythmias Pulmonary HTN - severe Hx NSVTach Severe protein/calorie malnutrition Acute myocardial ischemia Resolving transaminitis PRBC transfusion for hb below 7gm/dl Vent support with on-going weaning efforts following trach Diltiazem dose to be titrated - based on ventricular rates DC digoxin due to slow heart rates and pauses. Hypotonic IVF until free water deficit corrected Full anticoagulation for cardioembolic prophyl. Monitor liver fxn EGD and PEG if fails swallow eval next week. Simone Perez MD Jun 08, 2020 01:13
[2020-06-08 04:00] VITALS: BP 108/53
[2020-06-08] MEDS: NovoLOG Insulin Flexpen SUBQ SCH ×4 (05:55→17:05)
[2020-06-08] MEDS: dilTIAZem HCl 60mg tab NG SCH ×4 (05:55→18:17)
[2020-06-08 06:04] LABS: BASOPHILS % (AUTO) 2.1 % (0.0-2.0); EOSINOPHILS % (AUTO) 0.2 % (0.0-3.0); HEMATOCRIT 25.1 % (37.0-47.0); HEMOGLOBIN 8.4 G/DL (12.0-16.0); LYMPHOCYTES % (AUTO) 21.4 % (20.0-45.0); MEAN CORPUSCULAR VOLUME 81 FL (80-99); MONOCYTES % (AUTO) 13.2 % (1.0-10.0); PLATELET COUNT 469 K/UL (150-450); RED BLOOD COUNT 3.08 M/UL (4.20-5.40); RED CELL DISTRIBUTION WIDTH 15.9 % (11.6-14.8)
[2020-06-08 06:10] LABS: INR 1.1 (0.9-1.1)
[2020-06-08] MEDS ORDERED: Varibar Thin Liquid powder 148gm MC PRN (06:30)
[2020-06-08] MEDS ORDERED: Varibar Nectar 240ml MC PRN (06:30)
[2020-06-08] MEDS ORDERED: Varibar Pudding 230ml MC PRN (06:30)
[2020-06-08] MEDS ORDERED: Varibar Honey 250ml MC PRN (06:30)
[2020-06-08 06:37] LABS: ALBUMIN 1.1 G/DL (3.4-5.0); ALBUMIN/GLOBULIN RATIO 0.2 (1.0-2.7); BILIRUBIN,TOTAL 0.5 MG/DL (0.2-1.0); CALCIUM 7.4 MG/DL (8.5-10.1); CREATININE 1.4 MG/DL (0.55-1.30); POTASSIUM 3.4 MMOL/L (3.5-5.1)
--- NOTE | 2020-06-08 07:30 | NUR ---
NURSE NOTES: Received report from DAMIAN Luna. The patient is resting on the bed without acute distress or shortness of breath. The patient is AOx2, confused, but able to make needs known via facial expression and body movement. Afib w/ HR of 90s on the patient monitor. The patient is trach'ed and on ventilator on following setting and oxygen saturation 100%: Shiley 8, AC 14, TV 500, Fio2 40%, PEEP 5. The patient has R NGT @ 65cm and running Vital AF @ 40mL/hr. The patient has Riojas and Rectal tube that is that is intact and patent and draining by gravity. Skin issue noted and dressing intact. The patient has R hand 22G that is intact and patent. The patient's bed in the lowest position, call light in reach, and fall and aspiration precaution reinforced. Will follow up the lab and order. Will closely monitor the patient. Will continue plan of care.
--- NOTE | 2020-06-08 07:35 | NUR ---
"NURSE HAND-OFF REPORT: Important Events on Shift: AV Block. Dr. Perez aware | Swallow Study in AM | Hypokalemia Patient Status: Stable Diet: Vital AF Pending Orders: N Pending Results/Labs: N Pending MD notification: Y - Potassium coverage Latest Vital Signs: Temperature 98.2 , Pulse 68 , B/P 114 /62 , Respiratory Rate 20 , O2 SAT 100 , Mechanical Ventilator, O2 Flow Rate 4.0 . Vital Sign Comment: WNL EKG Rhythm: Atrial Fibrillation Rhythm change?: N MD Notified?: N -Dr. Chris MCCRACKEN Response: Order Received& Read Back Latest Lechuga Fall Score: 50 Fall Risk: High Risk Safety Measures: Call light Within Reach, Bed Alarm Zone 1, Side Rails Side Rails x3, Bed position Low and Locked. Fall Precautions: Yellow Socks Yellow Gown Door Sign Patient Fall Education Report given to DAMIAN Mcconnell."
[2020-06-08 08:00] VITALS: BP 106/49
[2020-06-08] MEDS: Ipratropium Bromide Inhaler INH SCH ×4 (08:05→19:39)
--- NOTE | 2020-06-08 08:30 | NUR ---
NURSE NOTES: Dr. Jefferson was notified regarding abnormal lab including WBC, Hgb, Potassium, and Albumin level. Dr. Jefferson ordered 20mEq KCL GT once. Will carry out the order as soon as possible. Will continue plan of care.
--- NOTE | 2020-06-08 09:56 | Infectious Diseases Prog Note ---
Assessment/Plan Assessment/Plan A 1. COVID 19 pneumonia Test positive: 05/03 -05/09 2. renal failure 3. increased LFT 4. COPD 5. CHF, Diastolic & systolic 6. asthma 7. Cholelithiasis r/o cholecystitis 8. Hypoxic hypercapnic respiratory failure 9. Pseudomonas pneumonia 10. Sepsis 11. Funguria P 1. Observe off of antibiotic 2. Will f/u cultures Subjective ROS Limited/Unobtainable: Yes Constitutional: Reports: no symptoms Respiratory: Reports: no symptoms Allergies: Coded Allergies: CIPROFLOXACIN (Verified Allergy, Unknown, 09/27/17) Objective Last 24 Hour Vital Signs Date Time Temp Pulse Resp B/P (MAP) Pulse Ox O2 Delivery O2 Flow Rate FiO2 06/08/20 08:00 40 06/08/20 08:00 98.4 96 20 106/49 (68) 100 06/08/20 07:50 98 18 100 Mechanical Ventilator 30 98 18 06/08/20 05:55 68 114/62 06/08/20 04:00 Mechanical Ventilator Mechanical Ventilator 06/08/20 04:00 40 06/08/20 04:00 98.2 91 20 108/53 (71) 100 06/08/20 03:37 75 06/08/20 03:30 104 31 30 06/08/20 00:00 98.7 80 18 110/56 (74) 100 06/08/20 00:00 Mechanical Ventilator Mechanical Ventilator 06/08/20 00:00 40 06/07/20 23:36 69 06/07/20 23:30 102 20 30 06/07/20 23:10 80 110/56 06/07/20 20:00 Mechanical Ventilator Mechanical Ventilator 06/07/20 20:00 40 06/07/20 20:00 96 06/07/20 20:00 98.9 75 17 106/45 (65) 100 06/07/20 19:00 101 18 100 Mechanical Ventilator 30 101 18 06/07/20 18:45 66 116/51 06/07/20 16:30 66 14 100 Mechanical Ventilator 30 66 14 30 06/07/20 16:11 104 06/07/20 16:00 40 06/07/20 16:00 98.1 104 14 120/58 (78) 100 06/07/20 16:00 96.8 98 14 116/51 (72) 100 06/07/20 15:28 Mechanical Ventilator Mechanical Ventilator 06/07/20 12:27 101 109/54 06/07/20 12:12 110 22 100 Mechanical Ventilator 30 110 22 30 06/07/20 12:00 Mechanical Ventilator Mechanical Ventilator 06/07/20 12:00 40 06/07/20 12:00 98.8 90 16 109/54 (72) 100 06/07/20 12:00 106 Height (Feet): 5 Height (Inches): 3.00 Weight (Pounds): 174 HEENT: mucous membranes moist, status post trach Respiratory/Chest: lungs clear, other - on ventilator Cardiovascular: normal rate Abdomen: soft, non tender, other - NG tube Extremities: other - edema more in hands Neurologic/Psychiatric: alert, responsive Laboratory Tests Test 06/07/20 12:15 06/07/20 14:50 06/07/20 18:39 06/08/20 00:07 POC Whole Blood Glucose 120 MG/DL (74-106) H 112 MG/DL (74-106) H 121 MG/DL (74-106) H White Blood Count 13.3 K/UL (4.8-10.8) H Red Blood Count 3.01 M/UL (4.20-5.40) L Hemoglobin 8.4 G/DL (12.0-16.0) L Hematocrit 25.3 % (37.0-47.0) L Mean Corpuscular Volume 84 FL (80-99) Mean Corpuscular Hemoglobin 27.9 PG (27.0-31.0) Mean Corpuscular Hemoglobin Concent 33.2 G/DL (32.0-36.0) Red Cell Distribution Width 17.5 % (11.6-14.8) H Platelet Count 472 K/UL (150-450) H Mean Platelet Volume 5.8 FL (6.5-10.1) L Neutrophils (%) (Auto) 65.7 % (45.0-75.0) Lymphocytes (%) (Auto) 18.6 % (20.0-45.0) L Monocytes (%) (Auto) 13.4 % (1.0-10.0) H Eosinophils (%) (Auto) 0.4 % (0.0-3.0) Basophils (%) (Auto) 2.0 % (0.0-2.0) Sodium Level 138 MMOL/L (136-145) Potassium Level 3.5 MMOL/L (3.5-5.1) Chloride Level 103 MMOL/L (98-107) Carbon Dioxide Level 32 MMOL/L (21-32) Anion Gap 3 mmol/L (5-15) L Blood Urea Nitrogen 45 mg/dL (7-18) H Creatinine 1.4 MG/DL (0.55-1.30) H Estimat Glomerular Filtration Rate 43.9 mL/min (>60) Glucose Level 121 MG/DL (74-106) H Calcium Level 7.6 MG/DL (8.5-10.1) L Test 06/08/20 04:52 06/08/20 05:40 White Blood Count 14.0 K/UL (4.8-10.8) H Red Blood Count 3.08 M/UL (4.20-5.40) L Hemoglobin 8.4 G/DL (12.0-16.0) L Hematocrit 25.1 % (37.0-47.0) L Mean Corpuscular Volume 81 FL (80-99) Mean Corpuscular Hemoglobin 27.2 PG (27.0-31.0) Mean Corpuscular Hemoglobin Concent 33.3 G/DL (32.0-36.0) Red Cell Distribution Width 15.9 % (11.6-14.8) H Platelet Count 469 K/UL (150-450) H Mean Platelet Volume 5.0 FL (6.5-10.1) L Neutrophils (%) (Auto) 63.0 % (45.0-75.0) Lymphocytes (%) (Auto) 21.4 % (20.0-45.0) Monocytes (%) (Auto) 13.2 % (1.0-10.0) H Eosinophils (%) (Auto) 0.2 % (0.0-3.0) Basophils (%) (Auto) 2.1 % (0.0-2.0) H Erythrocyte Sedimentation Rate 124 MM/HR (0-30) H Prothrombin Time 12.2 SEC (9.30-11.50) H Prothromb Time International Ratio 1.1 (0.9-1.1) Activated Partial Thromboplast Time 26 SEC (23-33) Sodium Level 140 MMOL/L (136-145) Potassium Level 3.4 MMOL/L (3.5-5.1) L Chloride Level 103 MMOL/L (98-107) Carbon Dioxide Level 32 MMOL/L (21-32) Anion Gap 5 mmol/L (5-15) Blood Urea Nitrogen 42 mg/dL (7-18) H Creatinine 1.4 MG/DL (0.55-1.30) H Estimat Glomerular Filtration Rate 43.9 mL/min (>60) Glucose Level 117 MG/DL (74-106) H Calcium Level 7.4 MG/DL (8.5-10.1) L Total Bilirubin 0.5 MG/DL (0.2-1.0) Aspartate Amino Transf (AST/SGOT) 79 U/L (15-37) H Alanine Aminotransferase (ALT/SGPT) 61 U/L (12-78) Alkaline Phosphatase 256 U/L (46-116) H C-Reactive Protein, Quantitative 10.7 mg/dL (0.00-0.90) H Total Protein 5.5 G/DL (6.4-8.2) L Albumin 1.1 G/DL (3.4-5.0) L Globulin 4.4 g/dL Albumin/Globulin Ratio 0.2 (1.0-2.7) L Amylase Level 76 U/L (25-115) Lipase 69 U/L (73-393) L POC Whole Blood Glucose Pending Current Medications Medications (Trade) Dose Ordered Sig/Ghislaine Route PRN Reason Start Time Stop Time Status Last Admin Dose Admin Acetaminophen (Tylenol) 650 mg Q4H PRN NG Temp >100.5 05/25/20 16:15 06/24/20 16:14 06/06/20 12:06 Barium Sulfate (Varibar Honey) 250 ml NOW PRN MC RAD 06/08/20 06:30 06/11/20 06:24 Barium Sulfate (Varibar Honey) 250 ml NOW PRN MC RAD 06/05/20 10:30 06/08/20 10:17 Barium Sulfate (Varibar Kicking Horse) 240 ml NOW PRN RAD 06/08/20 06:30 06/11/20 06:24 Barium Sulfate (Varibar [place]) 240 ml NOW PRN RAD 06/05/20 10:30 06/08/20 10:17 Barium Sulfate (Varibar Pudding) 230 ml NOW PRN MC RAD 06/08/20 06:30 06/11/20 06:24 Barium Sulfate (Varibar Pudding) 230 ml NOW PRN MC RAD 06/05/20 10:30 06/08/20 10:17 Barium Sulfate (Varibar Thin Liquid powder) 148 gm NOW PRN MC RAD 06/08/20 06:30 06/11/20 06:24 Barium Sulfate (Varibar Thin Liquid powder) 148 gm NOW PRN MC RAD 06/05/20 10:30 06/08/20 10:17 Dextrose (Dextrose 50%) 25 ml Q30M PRN IV Hypoglycemia 05/22/20 18:30 08/20/20 18:29 Dextrose (Dextrose 50%) 50 ml Q30M PRN IV Hypoglycemia 05/22/20 18:30 08/20/20 18:29 Diltiazem HCl (Cardizem Tab) 60 mg EVERY 6 HOURS NG 06/07/20 06:00 07/07/20 05:59 06/07/20 18:45 Insulin Aspart (NovoLOG) Q6HR SUBQ 05/23/20 00:00 08/20/20 20:59 06/02/20 00:00 Ipratropium Valier (Atrovent Inh) 1 puffs QIDRT INH 06/01/20 07:00 06/26/20 09:59 06/08/20 08:05 Lansoprazole (Prevacid) 30 mg DAILY NG 06/06/20 09:00 07/06/20 08:59 06/08/20 08:55 Loperamide HCl (Imodium) 2 mg Q6H PRN NG Diarrhea 05/26/20 17:45 06/25/20 17:44 06/03/20 15:04 Potassium Chloride (K-Dur) 20 meq ONCE NG 06/08/20 09:00 06/08/20 10:00 06/08/20 08:55 Freddy Woodson MD Jun 08, 2020 09:56
--- NOTE | 2020-06-08 10:00 | NUR ---
NURSE NOTES: Medications administered per order. The patient tolerated well. Oral care and suction done. Will closely monitor the patient. Will continue plan of care.
[2020-06-08] MEDS ORDERED: ceFAZolin sod 1 GM in D5W 55 ML IVPB ONE (10:30)
[2020-06-08 12:00] VITALS: BP 111/51
--- NOTE | 2020-06-08 12:00 | NUR ---
NURSE NOTES: BS 98 noted. No Novolog administered per protocol. Diltiazem on hold per Dr. Perez's order. Will closely monitor the patient. Will continue plan of care.
--- NOTE | 2020-06-08 13:11 | Surgery Progress Note ---
Surgery Progress Note Subjective Procedure Performed trach Additional Comments no acute events leukocytosis ng in place tolerating tf Objective Last 24 Hour Vital Signs Date Time Temp Pulse Resp B/P (MAP) Pulse Ox O2 Delivery O2 Flow Rate FiO2 06/08/20 12:00 93 98/59 06/08/20 11:10 101 20 30 06/08/20 08:00 40 06/08/20 08:00 Mechanical Ventilator Mechanical Ventilator 06/08/20 08:00 98.4 96 20 106/49 (68) 100 06/08/20 08:00 92 06/08/20 07:50 98 18 100 Mechanical Ventilator 30 98 18 06/08/20 05:55 68 114/62 06/08/20 04:00 Mechanical Ventilator Mechanical Ventilator 06/08/20 04:00 40 06/08/20 04:00 98.2 91 20 108/53 (71) 100 06/08/20 03:37 75 06/08/20 03:30 104 31 30 06/08/20 00:00 98.7 80 18 110/56 (74) 100 06/08/20 00:00 Mechanical Ventilator Mechanical Ventilator 06/08/20 00:00 40 06/07/20 23:36 69 06/07/20 23:30 102 20 30 06/07/20 23:10 80 110/56 06/07/20 20:00 Mechanical Ventilator Mechanical Ventilator 06/07/20 20:00 40 06/07/20 20:00 96 06/07/20 20:00 98.9 75 17 106/45 (65) 100 06/07/20 19:00 101 18 100 Mechanical Ventilator 30 101 18 06/07/20 18:45 66 116/51 06/07/20 16:30 66 14 100 Mechanical Ventilator 30 66 14 30 06/07/20 16:11 104 06/07/20 16:00 40 06/07/20 16:00 98.1 104 14 120/58 (78) 100 06/07/20 16:00 96.8 98 14 116/51 (72) 100 06/07/20 15:28 Mechanical Ventilator Mechanical Ventilator I&O Intake and Output 06/07/20 06/08/20 19:00 07:00 Intake Total 520 ml 440 ml Output Total 1050 ml 1000 ml Balance -530 ml -560 ml Tube Feeding 520 ml 440 ml Output Urine Total 800 ml 1000 ml Stool Total 250 ml Dressing: saturated Cardiovascular: RSR Respiratory: decreased breath sounds Abdomen: soft, non-tender, present bowel sounds, non-distended Extremities: no edema, no tenderness, no cyanosis Laboratory Tests Test 06/07/20 14:50 06/07/20 18:39 06/08/20 00:07 06/08/20 04:52 White Blood Count 13.3 K/UL (4.8-10.8) H 14.0 K/UL (4.8-10.8) H Red Blood Count 3.01 M/UL (4.20-5.40) L 3.08 M/UL (4.20-5.40) L Hemoglobin 8.4 G/DL (12.0-16.0) L 8.4 G/DL (12.0-16.0) L Hematocrit 25.3 % (37.0-47.0) L 25.1 % (37.0-47.0) L Mean Corpuscular Volume 84 FL (80-99) 81 FL (80-99) Mean Corpuscular Hemoglobin 27.9 PG (27.0-31.0) 27.2 PG (27.0-31.0) Mean Corpuscular Hemoglobin Concent 33.2 G/DL (32.0-36.0) 33.3 G/DL (32.0-36.0) Red Cell Distribution Width 17.5 % (11.6-14.8) H 15.9 % (11.6-14.8) H Platelet Count 472 K/UL (150-450) H 469 K/UL (150-450) H Mean Platelet Volume 5.8 FL (6.5-10.1) L 5.0 FL (6.5-10.1) L Neutrophils (%) (Auto) 65.7 % (45.0-75.0) 63.0 % (45.0-75.0) Lymphocytes (%) (Auto) 18.6 % (20.0-45.0) L 21.4 % (20.0-45.0) Monocytes (%) (Auto) 13.4 % (1.0-10.0) H 13.2 % (1.0-10.0) H Eosinophils (%) (Auto) 0.4 % (0.0-3.0) 0.2 % (0.0-3.0) Basophils (%) (Auto) 2.0 % (0.0-2.0) 2.1 % (0.0-2.0) H Sodium Level 138 MMOL/L (136-145) 140 MMOL/L (136-145) Potassium Level 3.5 MMOL/L (3.5-5.1) 3.4 MMOL/L (3.5-5.1) L Chloride Level 103 MMOL/L (98-107) 103 MMOL/L (98-107) Carbon Dioxide Level 32 MMOL/L (21-32) 32 MMOL/L (21-32) Anion Gap 3 mmol/L (5-15) L 5 mmol/L (5-15) Blood Urea Nitrogen 45 mg/dL (7-18) H 42 mg/dL (7-18) H Creatinine 1.4 MG/DL (0.55-1.30) H 1.4 MG/DL (0.55-1.30) H Estimat Glomerular Filtration Rate 43.9 mL/min (>60) 43.9 mL/min (>60) Glucose Level 121 MG/DL (74-106) H 117 MG/DL (74-106) H Calcium Level 7.6 MG/DL (8.5-10.1) L 7.4 MG/DL (8.5-10.1) L POC Whole Blood Glucose 112 MG/DL (74-106) H 121 MG/DL (74-106) H Erythrocyte Sedimentation Rate 124 MM/HR (0-30) H Prothrombin Time 12.2 SEC (9.30-11.50) H Prothromb Time International Ratio 1.1 (0.9-1.1) Activated Partial Thromboplast Time 26 SEC (23-33) Total Bilirubin 0.5 MG/DL (0.2-1.0) Aspartate Amino Transf (AST/SGOT) 79 U/L (15-37) H Alanine Aminotransferase (ALT/SGPT) 61 U/L (12-78) Alkaline Phosphatase 256 U/L (46-116) H C-Reactive Protein, Quantitative 10.7 mg/dL (0.00-0.90) H Total Protein 5.5 G/DL (6.4-8.2) L Albumin 1.1 G/DL (3.4-5.0) L Globulin 4.4 g/dL Albumin/Globulin Ratio 0.2 (1.0-2.7) L Amylase Level 76 U/L (25-115) Lipase 69 U/L (73-393) L Test 06/08/20 05:40 06/08/20 12:33 POC Whole Blood Glucose Pending Pending Plan Problems: (1) Elevated troponin (2) Atrial fibrillation with RVR (3) COVID-19 Assessment & Plan: ++ as per pulm and ID trach DAILY ESTIMATED NEEDS: Needs based on Critical Care, ARF/ 56kg abw 22-28 kcals/kg 9946-9000 total kcals 0.8-1.5 (increase w/ renal improvement) g protein/kg 45-84 g total protein 25-30 mL/kg 1077-4534 total fluid mLs NUTRITION DIAGNOSIS: * Altered nutrition related lab values r/t clinical status as evidenced by elev BUN(82), creat(3.8) trending up, critical ABG (low pH, elev CO2)-> now improved. * Swallowing difficulty R/T respiratory status as evidenced by s/p oral intubation, on OGT feeds. 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: BAGMAN/WOMAN eval post extubation ENTERAL NUTRITION RECOMMENDATIONS: Nepro @ 35ml/hr x 24 hrs to provide 840ml, 1512kcal, 68g prot, 610ml free water * W/ worsening renal fxn, rec to continue Nepro * As tolerated, increase goal rate to 35ml/hr x 24 hrs to meet 100% est kcal/prot needs ADDITIONAL RECOMMENDATIONS: 1) Calibrated bedscale wt 2) Monitor renal fxn and lytes, need to continue Nepro Creat trending up 3) Rec niss w/ solumedrol (4) Community acquired pneumonia (5) COPD (chronic obstructive pulmonary disease) (6) Pulmonary fibrosis (7) Asthma (8) History of asthma (9) NSTEMI (non-ST elevated myocardial infarction) (10) Moderate to severe pulmonary hypertension (11) Asthma exacerbation (12) Abnormal LFTs Assessment & Plan: afebrile, HD stable labs noted lft's elevated US reviewed exam benign gb likely reactive from underlying pathology unlikely cholecystitis clinically fluid overload trend labs will monitor exam clinically covid + prognosis guarded cxr reviewed on abx worsening plan repeat US - noted cannot get hida given covid labs noted worsening leukocytosis Gallbladder demonstrates wall thickening and wall edema, gallbladder wall measuring up to 6 mm thick. There are gallstones. Sonographic Escoto's sign is negative. Common bile duct measures 3 mm in diameter. No intrahepatic biliary ductal dilatation. Liver demonstrates normal echogenicity, no focal abnormality. Portal vein and hepatic veins are patent. Pancreas is unremarkable. Spleen is unremarkable. Left kidney measures 9.2 cm in length. Right kidney measures 9.9 cm length. Both kidneys demonstrate normal echogenicity. There is no hydronephrosis. Small cyst is seen in the right kidney. . Abdominal aorta was not imaged . There is trace ascites. There is a small right pleural effusion incidentally noted Impression: Small right pleural effusion. Trace ascites Cholelithiasis. Gallbladder wall thickening may be related to hemodynamic factors causing the pleural fluid and ascites, but could also indicate acute cholecystitis. Consider nuclear medicine hepatobiliary scan if there is high clinical suspicion. Negative for dilated bile ducts Small right renal cyst incidentally noted (13) Acute respiratory failure with hypoxia Assessment & Plan: s/p trach discussed with family comfortable weaning Quentin Sanchez Jun 08, 2020 13:11
--- NOTE | 2020-06-08 13:43 | NUR ---
Speech Pathology Note (Dysphagia follow up) Over the weekend progress notes, new labs, last 48 hours vital flow, last 11days respiratory flow sheet were reviewed. PEG placement is on hold until repeat swallow evaluation to be completed is noted. Videofluoroscopic swallow study order is noted. I discussed with RN at nursing station as well as RT over the phone this morning for brief discussion. I informed my impression from initial swallow evaluation that was done on 06/05/2020. Discussion/Recommendation: I would like to recommend to cancel the video fluoroscopic swallow study because there are several technical challenges with ventilator patients with isolation. I can repeat blue dye swallow study just like 06/05/2020, however my findings, impression and recommendation would not likely change. I can discuss with patient's daughter if necessary. I believe Ms. Snachez has a chance to be weaned off from mechanical vent some-point and come off from chronic vent dependent individual. However next episode of aspiration pneumonia will reduce a chance. To be safely returned to PO diet, I would like to see Ms. Sanchez will tolerate tracheostomy without mechanical vent support during a day, and hope to use [place] Speaking Valve. If she will be attempted to be weaned off from vent here at [facility], I can understand to hold off PEG. But I do not find that plan. She will be planned to be weaned off from vent at the next level of care setting. She will need PEG for safety reason to be discharged to Subacute. The multidisciplinary approach will be highly valuable for her to successfully wean vent and return to PO diet. 1. High aspiration risk on mechanical vent with PO diet with tracheostomy cuff up Detail please see my note from 06/05/2020. Gaye Price
--- NOTE | 2020-06-08 14:00 | NUR ---
NURSE NOTES: The patient is resting on the bed comfortably without acute distress or shortness of breath. Tolerating vent setting and TF well. Will closely monitor the patient. Will continue plan of care.
--- NOTE | 2020-06-08 15:35 | NUR ---
CASE MANAGEMENT: REVIEW SI: COVID-19 . PNA . T 99.1 HR 101 RR 20 BP 98/59 SAT 100% MECH VENT FIO2 40 WBC 14.0 H/H 8.4/25.1 K 3.4 BUN 42 CR 1.4 REPEAT COVID-19 -- SARS-CoV-2 NOT DETECTED IS: CEFAZOLIN IV X1 K-DUR 20MEQ NG X1 D5 1/2 NS IVF @ 75ML/HR PREVACID NG QD CARDIZEM NG Q6HR ST VIDEO SWALLOW STUDY NGT FEEDING PEG PLACEMENT PENDING STEP DOWN UNIT STATUS DCP: PATIENT IS FROM HOME
[2020-06-08 16:00] VITALS: BP 103/51
--- NOTE | 2020-06-08 16:00 | NUR ---
NURSE NOTES: Bed bath given to the patient. Tolerated well. Will closely monitor the patient. Will continue plan of care.
--- NOTE | 2020-06-08 16:59 | General Progress Note ---
Subjective ROS Limited/Unobtainable: No Constitutional: Reports: malaise, weakness HEENT: Reports: no symptoms Cardiovascular: Reports: no symptoms Respiratory: Reports: shortness of breath, sputum Gastrointestinal/Abdominal: Reports: difficulty swallowing Genitourinary: Reports: no symptoms Neurologic/Psychiatric: Reports: pre-existing deficit Endocrine: Reports: no symptoms Hematologic/Lymphatic: Reports: anemia Allergies: Coded Allergies: CIPROFLOXACIN (Verified Allergy, Unknown, 09/27/17) All Systems: reviewed and negative except above Subjective no events. speech noted. stable on the vent. per speech likely to fail swallow. no distress. weak. opens eyes. still with rectal tube and diarrhea. WBC slightly higher. Objective Last 24 Hour Vital Signs Date Time Temp Pulse Resp B/P (MAP) Pulse Ox O2 Delivery O2 Flow Rate FiO2 06/08/20 16:00 40 06/08/20 16:00 Mechanical Ventilator Mechanical Ventilator 06/08/20 16:00 97.9 92 20 103/51 (68) 100 06/08/20 14:53 89 14 100 Mechanical Ventilator 30 66 14 30 06/08/20 12:00 88 06/08/20 12:00 Mechanical Ventilator Mechanical Ventilator 06/08/20 12:00 93 98/59 06/08/20 12:00 99.1 93 20 111/51 (71) 100 06/08/20 12:00 40 06/08/20 11:10 101 20 100 30 90 20 06/08/20 08:00 40 06/08/20 08:00 Mechanical Ventilator Mechanical Ventilator 06/08/20 08:00 98.4 96 20 106/49 (68) 100 06/08/20 08:00 92 06/08/20 07:50 98 18 100 Mechanical Ventilator 30 98 18 06/08/20 05:55 68 114/62 06/08/20 04:00 Mechanical Ventilator Mechanical Ventilator 06/08/20 04:00 40 06/08/20 04:00 98.2 91 20 108/53 (71) 100 06/08/20 03:37 75 06/08/20 03:30 104 31 30 06/08/20 00:00 98.7 80 18 110/56 (74) 100 06/08/20 00:00 Mechanical Ventilator Mechanical Ventilator 06/08/20 00:00 40 06/07/20 23:36 69 10/11/20 23:30 102 20 30 06/07/20 23:10 80 110/56 06/07/20 20:00 Mechanical Ventilator Mechanical Ventilator 06/07/20 20:00 40 06/07/20 20:00 96 06/07/20 20:00 98.9 75 17 106/45 (65) 100 06/07/20 19:00 101 18 100 Mechanical Ventilator 30 101 18 06/07/20 18:45 66 116/51 Intake and Output 06/07/20 06/08/20 19:00 07:00 Intake Total 520 ml 440 ml Output Total 1050 ml 1000 ml Balance -530 ml -560 ml Tube Feeding 520 ml 440 ml Output Urine Total 800 ml 1000 ml Stool Total 250 ml Laboratory Tests 06/07/20 18:39: POC Whole Blood Glucose 112H 06/08/20 00:07: POC Whole Blood Glucose 121H 06/08/20 04:52: White Blood Count 14.0H, Red Blood Count 3.08L, Hemoglobin 8.4L, Hematocrit 25.1L, Mean Corpuscular Volume 81, Mean Corpuscular Hemoglobin 27.2, Mean Corpuscular Hemoglobin Concent 33.3, Red Cell Distribution Width 15.9H, Platelet Count 469H, Mean Platelet Volume 5.0L, Neutrophils (%) (Auto) 63.0, Lymphocytes (%) (Auto) 21.4, Monocytes (%) (Auto) 13.2H, Eosinophils (%) (Auto) 0.2, Basophils (%) (Auto) 2.1H, Erythrocyte Sedimentation Rate 124H, Prothrombin Time 12.2H, Prothromb Time International Ratio 1.1, Activated Partial Thromboplast Time 26, Sodium Level 140, Potassium Level 3.4L, Chloride Level 103, Carbon Dioxide Level 32, Anion Gap 5, Blood Urea Nitrogen 42H, Creatinine 1.4H, Estimat Glomerular Filtration Rate 43.9, Glucose Level 117H, Calcium Level 7.4L, Total Bilirubin 0.5, Aspartate Amino Transf (AST/SGOT) 79H, Alanine Aminotransferase (ALT/SGPT) 61, Alkaline Phosphatase 256H, C-Reactive Protein, Quantitative 10.7H , Total Protein 5.5L, Albumin 1.1L, Globulin 4.4, Albumin/Globulin Ratio 0.2L, Amylase Level 76, Lipase 69L 06/08/20 05:40: POC Whole Blood Glucose [Pending] 06/08/20 12:33: POC Whole Blood Glucose [Pending] Height (Feet): 5 Height (Inches): 3.00 Weight (Pounds): 174 Objective General Appearance: WD/WN, no apparent distress, alert. orally intubated EENT: PERRL/EOMI Neck: non-tender, normal alignment, supple Cardiovascular: normal rate, regular rhythm Respiratory/Chest: chest wall non-tender, lungs clear, normal breath sounds, no respiratory distress, no accessory muscle use Abdomen: normal bowel sounds, non tender, soft, no organomegaly Edema: no edema noted Arm (L), no edema noted Arm (R) Neurologic: [place] II-XII grossly normal, alert, oriented x 3, responsive Skin: normal pigmentation Lymphatic: normal anterior cervical (L), normal anterior cervical (R) Assessment/Plan Problem List: (1) Pulmonary fibrosis ICD Codes: J84.10 - Pulmonary fibrosis, unspecified SNOMED: 48353350 (2) History of asthma ICD Codes: Z87.09 - Personal history of other diseases of the respiratory system SNOMED: 036511807 (3) Asthma ICD Codes: J45.909 - Unspecified asthma, uncomplicated SNOMED: 465741211 (4) NSTEMI (non-ST elevated myocardial infarction) ICD Codes: I21.4 - Non-ST elevation (NSTEMI) myocardial infarction SNOMED: 021770000 (5) Elevated troponin ICD Codes: R79.89 - Other specified abnormal findings of blood chemistry SNOMED: 626722986, 807114239, 659033189 (6) COPD (chronic obstructive pulmonary disease) ICD Codes: J44.9 - Chronic obstructive pulmonary disease, unspecified SNOMED: 92740145 (7) Atrial fibrillation with RVR ICD Codes: I48.91 - Unspecified atrial fibrillation SNOMED: 651690461173992 (8) Community acquired pneumonia ICD Codes: J18.9 - Pneumonia, unspecified organism SNOMED: 263295879 Status: stable Assessment/Plan: vent support resp rx and suctioning as needed NGT feeds GT per GI off abx turn q2 skin care imodium for diarrhea dvt/stress ulcer prophylaxis remains gaurded will d/w dtr if ok to proceed with GT monitor wbc Bradford Linn MD Jun 08, 2020 16:59
--- NOTE | 2020-06-08 17:22 | Pulmonology Progress Note ---
Subjective ROS Limited/Unobtainable: Yes Constitutional: Reports: no symptoms Musculoskeletal: Denies: pain Allergies: Coded Allergies: CIPROFLOXACIN (Verified Allergy, Unknown, 09/27/17) All Systems: reviewed and negative except above Subjective on vent- awaiting gt daughter wanted another speech comfortable COVID- reduced LOC Objective Last 24 Hour Vital Signs Date Time Temp Pulse Resp B/P (MAP) Pulse Ox O2 Delivery O2 Flow Rate FiO2 06/08/20 17:04 93 103/47 06/08/20 16:00 40 06/08/20 16:00 Mechanical Ventilator Mechanical Ventilator 06/08/20 16:00 97.9 92 20 103/51 (68) 100 06/08/20 14:53 89 14 100 Mechanical Ventilator 30 66 14 30 06/08/20 12:00 88 06/08/20 12:00 Mechanical Ventilator Mechanical Ventilator 06/08/20 12:00 93 98/59 06/08/20 12:00 99.1 93 20 111/51 (71) 100 06/08/20 12:00 40 06/08/20 11:10 101 20 100 30 90 20 06/08/20 08:00 40 06/08/20 08:00 Mechanical Ventilator Mechanical Ventilator 06/08/20 08:00 98.4 96 20 106/49 (68) 100 06/08/20 08:00 92 06/08/20 07:50 98 18 100 Mechanical Ventilator 30 98 18 06/08/20 05:55 68 114/62 06/08/20 04:00 Mechanical Ventilator Mechanical Ventilator 06/08/20 04:00 40 06/08/20 04:00 98.2 91 20 108/53 (71) 100 06/08/20 03:37 75 06/08/20 03:30 104 31 30 06/08/20 00:00 98.7 80 18 110/56 (74) 100 06/08/20 00:00 Mechanical Ventilator Mechanical Ventilator 06/08/20 00:00 40 06/07/20 23:36 69 06/07/20 23:30 102 20 30 06/07/20 23:10 80 110/56 06/07/20 20:00 Mechanical Ventilator Mechanical Ventilator 06/07/20 20:00 40 06/07/20 20:00 96 06/07/20 20:00 98.9 75 17 106/45 (65) 100 06/07/20 19:00 101 18 100 Mechanical Ventilator 30 101 18 06/07/20 18:45 66 116/51 Intake and Output 06/07/20 06/08/20 19:00 07:00 Intake Total 520 ml 440 ml Output Total 1050 ml 1000 ml Balance -530 ml -560 ml Tube Feeding 520 ml 440 ml Output Urine Total 800 ml 1000 ml Stool Total 250 ml Objective deferred due to COVID Laboratory Tests 06/07/20 18:39: POC Whole Blood Glucose 112H 06/08/20 00:07: POC Whole Blood Glucose 121H 06/08/20 04:52: White Blood Count 14.0H, Red Blood Count 3.08L, Hemoglobin 8.4L, Hematocrit 25.1L, Mean Corpuscular Volume 81, Mean Corpuscular Hemoglobin 27.2, Mean Corpuscular Hemoglobin Concent 33.3, Red Cell Distribution Width 15.9H, Platelet Count 469H, Mean Platelet Volume 5.0L, Neutrophils (%) (Auto) 63.0, Lymphocytes (%) (Auto) 21.4, Monocytes (%) (Auto) 13.2H, Eosinophils (%) (Auto) 0.2, Basophils (%) (Auto) 2.1H, Erythrocyte Sedimentation Rate 124H, Prothrombin Time 12.2H, Prothromb Time International Ratio 1.1, Activated Partial Thromboplast Time 26, Sodium Level 140, Potassium Level 3.4L, Chloride Level 103, Carbon Dioxide Level 32, Anion Gap 5, Blood Urea Nitrogen 42H, Creatinine 1.4H, Estimat Glomerular Filtration Rate 43.9, Glucose Level 117H, Calcium Level 7.4L, Total Bilirubin 0.5, Aspartate Amino Transf (AST/SGOT) 79H, Alanine Aminotransferase (ALT/SGPT) 61, Alkaline Phosphatase 256H, C-Reactive Protein, Quantitative 10.7H , Total Protein 5.5L, Albumin 1.1L, Globulin 4.4, Albumin/Globulin Ratio 0.2L, Amylase Level 76, Lipase 69L 06/08/20 05:40: POC Whole Blood Glucose [Pending] 06/08/20 12:33: POC Whole Blood Glucose [Pending] 06/08/20 17:03: POC Whole Blood Glucose [Pending] Current Medications Medications (Trade) Dose Ordered Sig/Ghislaine Route PRN Reason Start Time Stop Time Status Last Admin Dose Admin Acetaminophen (Tylenol) 650 mg Q4H PRN NG Temp >100.5 05/25/20 16:15 06/24/20 16:14 06/06/20 12:06 Barium Sulfate (Varibar Honey) 250 ml NOW PRN MC RAD 06/08/20 06:30 06/11/20 06:24 Barium Sulfate (Varibar [place]) 240 ml NOW PRN MC RAD 06/08/20 06:30 06/11/20 06:24 Barium Sulfate (Varibar Pudding) 230 ml NOW PRN RAD 06/08/20 06:30 06/11/20 06:24 Barium Sulfate (Varibar Thin Liquid powder) 148 gm NOW PRN RAD 06/08/20 06:30 06/11/20 06:24 Dextrose (Dextrose 50%) 25 ml Q30M PRN IV Hypoglycemia 05/22/20 18:30 08/20/20 18:29 Dextrose (Dextrose 50%) 50 ml Q30M PRN IV Hypoglycemia 05/22/20 18:30 08/20/20 18:29 Diltiazem HCl (Cardizem Tab) 60 mg EVERY 6 HOURS NG 06/07/20 06:00 07/07/20 05:59 06/07/20 18:45 Insulin Aspart (NovoLOG) Q6HR SUBQ 05/23/20 00:00 08/20/20 20:59 06/02/20 00:00 Ipratropium [place] (Atrovent Inh) 1 puffs QIDRT INH 06/01/20 07:00 06/26/20 09:59 06/08/20 14:53 Lansoprazole (Prevacid) 30 mg DAILY NG 06/06/20 09:00 07/06/20 08:59 06/08/20 08:55 Loperamide HCl (Imodium) 2 mg Q6H PRN NG Diarrhea 05/26/20 17:45 06/25/20 17:44 06/03/20 15:04 Assessment/Plan Assessment/Plan Impression: COVID-19 Chronic obstructive pulmonary disease/Asthma Community acquired pneumonia Atrial fibrillation with RVR Elevated troponin Congestive heart Failure sinus tachycardia Hypoxemia transaminitis with gallstones acute on chronic renal failure acute respiratory failure hypotension tachycardia transaminitis MODS anemia NSVT Plan ID noted gi for GT/ rectal tube monitor vitals and control heart rate/ d/w cardiology if can proceed with GT Vent support/and trach care feeds per dietary on lovenox Bronchodilator therapy GT needed Monitor labs/ renal follow up - renal function still reduced- Covid 19 negative nutrition and NG feeds reviewed care and optimize position change and monitor skin surgical follow up noted monitor protein levels and adjust will need placement when gt placed DISCUSSED WITH DAUGHTER- AGREES TO GT AND SNF impression, plan, and exam edited and reviewed in detail care discussed with Aaron Bales MD Jun 08, 2020 17:22
--- NOTE | 2020-06-08 17:40 | Cardiology Progress Note ---
Subjective DATE OF SERVICE: Jun 08, 2020 Remains on vent via trach. Continues with NGTube feeds; repeat swallow eval pending. Monitor: PAFib/flutter; slow rate and pauses noted yesterday. This resolved off digoxin with diltiazem held. BP range improved, but still with low episodes. CXR (06/02) reviewed: bilateral infiltrates with left pl eff'n. ICU logs and cardiology care plan reviewed and updated Objective Last 24 Hour Vital Signs Date Time Temp Pulse Resp B/P (MAP) Pulse Ox O2 Delivery O2 Flow Rate FiO2 06/08/20 17:04 93 103/47 06/08/20 16:00 40 06/08/20 16:00 Mechanical Ventilator Mechanical Ventilator 06/08/20 16:00 97.9 92 20 103/51 (68) 100 06/08/20 14:53 89 14 100 Mechanical Ventilator 30 66 14 30 06/08/20 12:00 88 06/08/20 12:00 Mechanical Ventilator Mechanical Ventilator 06/08/20 12:00 93 98/59 06/08/20 12:00 99.1 93 20 111/51 (71) 100 06/08/20 12:00 40 06/08/20 11:10 101 20 100 30 90 20 06/08/20 08:00 40 06/08/20 08:00 Mechanical Ventilator Mechanical Ventilator 06/08/20 08:00 98.4 96 20 106/49 (68) 100 06/08/20 08:00 92 06/08/20 07:50 98 18 100 Mechanical Ventilator 30 98 18 06/08/20 05:55 68 114/62 06/08/20 04:00 Mechanical Ventilator Mechanical Ventilator 06/08/20 04:00 40 06/08/20 04:00 98.2 91 20 108/53 (71) 100 06/08/20 03:37 75 06/08/20 03:30 104 31 30 06/08/20 00:00 98.7 80 18 110/56 (74) 100 06/08/20 00:00 Mechanical Ventilator Mechanical Ventilator 06/08/20 00:00 40 06/07/20 23:36 69 06/07/20 23:30 102 20 30 06/07/20 23:10 80 110/56 06/07/20 20:00 Mechanical Ventilator Mechanical Ventilator 06/07/20 20:00 40 06/07/20 20:00 96 06/07/20 20:00 98.9 75 17 106/45 (65) 100 06/07/20 19:00 101 18 100 Mechanical Ventilator 30 101 18 06/07/20 18:45 66 116/51 ROS: unchanged from my eval of 05/03/20 HEENT: Orally intubated, Mechanically Ventilated, Thin secretions ET Tube RHYTHM: Afib LUNGS: no accessory muscle use, expiratory wheezing, diminished breath sounds CARDIAC: normal S1 and S2, no murmur, irregularly irregular ABDOMEN: normal bowel sounds, non tender, soft, no organomegaly EXTREMITIES: no calf tenderness, +1 edema Laboratory Tests Test 06/07/20 18:39 06/08/20 00:07 06/08/20 04:52 06/08/20 05:40 POC Whole Blood Glucose 112 MG/DL (74-106) H 121 MG/DL (74-106) H Pending White Blood Count 14.0 K/UL (4.8-10.8) H Red Blood Count 3.08 M/UL (4.20-5.40) L Hemoglobin 8.4 G/DL (12.0-16.0) L Hematocrit 25.1 % (37.0-47.0) L Mean Corpuscular Volume 81 FL (80-99) Mean Corpuscular Hemoglobin 27.2 PG (27.0-31.0) Mean Corpuscular Hemoglobin Concent 33.3 G/DL (32.0-36.0) Red Cell Distribution Width 15.9 % (11.6-14.8) H Platelet Count 469 K/UL (150-450) H Mean Platelet Volume 5.0 FL (6.5-10.1) L Neutrophils (%) (Auto) 63.0 % (45.0-75.0) Lymphocytes (%) (Auto) 21.4 % (20.0-45.0) Monocytes (%) (Auto) 13.2 % (1.0-10.0) H Eosinophils (%) (Auto) 0.2 % (0.0-3.0) Basophils (%) (Auto) 2.1 % (0.0-2.0) H Erythrocyte Sedimentation Rate 124 MM/HR (0-30) H Prothrombin Time 12.2 SEC (9.30-11.50) H Prothromb Time International Ratio 1.1 (0.9-1.1) Activated Partial Thromboplast Time 26 SEC (23-33) Sodium Level 140 MMOL/L (136-145) Potassium Level 3.4 MMOL/L (3.5-5.1) L Chloride Level 103 MMOL/L (98-107) Carbon Dioxide Level 32 MMOL/L (21-32) Anion Gap 5 mmol/L (5-15) Blood Urea Nitrogen 42 mg/dL (7-18) H Creatinine 1.4 MG/DL (0.55-1.30) H Estimat Glomerular Filtration Rate 43.9 mL/min (>60) Glucose Level 117 MG/DL (74-106) H Calcium Level 7.4 MG/DL (8.5-10.1) L Total Bilirubin 0.5 MG/DL (0.2-1.0) Aspartate Amino Transf (AST/SGOT) 79 U/L (15-37) H Alanine Aminotransferase (ALT/SGPT) 61 U/L (12-78) Alkaline Phosphatase 256 U/L (46-116) H C-Reactive Protein, Quantitative 10.7 mg/dL (0.00-0.90) H Total Protein 5.5 G/DL (6.4-8.2) L Albumin 1.1 G/DL (3.4-5.0) L Globulin 4.4 g/dL Albumin/Globulin Ratio 0.2 (1.0-2.7) L Amylase Level 76 U/L (25-115) Lipase 69 U/L (73-393) L Test 06/08/20 12:33 06/08/20 17:03 POC Whole Blood Glucose Pending Pending Assessment/Plan Assessment/Plan Acute on chronic respiratory acidosis Worsening anemia Acute respiratory failure - s/p trach. Shock LE edema due to severe pulmonary hypertension and right heart strain COPD exacerb with active bronchospasm Lactic acidosis COVID 19 PNA Acute on chr renal failure Chronic systolic/diastolic CHF Pulmonary fibrosis with chronic hypoxia Paroxysmal AFib with slow rates Hx Multifocal atrial arrhythmias Pulmonary HTN - severe Hx NSVTach Severe protein/calorie malnutrition Acute myocardial ischemia Resolving transaminitis PRBC transfusion for hb below 7gm/dl Vent support with on-going weaning efforts following trach Diltiazem dose to be titrated - based on ventricular rates No resumption of digoxin due to slow heart rates and pauses. Hypotonic IVF until free water deficit corrected Full anticoagulation for cardioembolic prophyl. Monitor liver fxn EGD and PEG if fails swallow eval next week. Simone Perez MD Jun 08, 2020 17:40
--- NOTE | 2020-06-08 18:00 | NUR ---
NURSE NOTES: Dr. Perez at the bedside assessed the patient. Notified vital signs trend including BP and HR. Dr. Perez ordered not to hold Cardizem unless HR<70. Will closely monitor the patient. Will continue plan of care.
--- NOTE | 2020-06-08 18:54 | Diagnostic Imaging Report ---
Indication: Tortuous of breath Technique: One view of the chest Comparison: 06/02/2020 Findings: Stable dense consolidation of the left mid and lower lung, diffuse reticular interstitial opacity of the right lung. Stable satisfactory positions of orogastric tube and tracheostomy. Impression: Unchanged, over one day, findings as above.
--- NOTE | 2020-06-08 19:20 | NUR ---
NURSE HAND-OFF REPORT: Important Events on Shift: No acute event, Still indecisive regarding PEG per family member, K 3.4_ 20mEq KCL GT replacement, Adjustment of Cardizem NGT parameter per Dr. Perez's order Patient Status: Stable, Full code Diet: Vital AF 1.2 @ 40mL/hr and NPO from midnight if family agrees on PEG placement per Dr. Torres's order Pending Orders: N Pending Results/Labs: N Pending MD notification: N Latest Vital Signs: Temperature 97.9 , Pulse 94 , B/P 114 /52 , Respiratory Rate 20 , O2 SAT 100 , Mechanical Ventilator, O2 Flow Rate 4.0 . Vital Sign Comment: Stable EKG Rhythm: Sinus Rhythm Rhythm change?: N MD Notified?: N -Dr. Chris MCCRACKEN Response: Order Received& Read Back Latest [place] Fall Score: 50 Fall Risk: High Risk Safety Measures: Call light Within Reach, Bed Alarm Zone 1, Side Rails Side Rails x3, Bed position Low and Locked. Fall Precautions: Yellow Socks Yellow Gown Door Sign Patient Fall Education Report given to DAMIAN Luna. The patient is stable at this time. Endorsed plan of care.
--- NOTE | 2020-06-08 19:21 | NUR ---
NURSE NOTES: Received update from DAMIAN Mcconnell. Still pending consent for PEG tube. Pt in stable condition with no respiratory or cardiac distress noted. [place] and rectal tube draining well to gravity. NGT running Vital AF with 0 residual. Call light within reach. Will continue monitoring
[2020-06-08 20:00] VITALS: BP 100/50
--- NOTE | 2020-06-08 20:00 | NUR ---
NURSE NOTES: Daughter, Heike, and son, Román, visiting at beside. Daughter signed consent for PEG tube. Will follow up with orders to keep pt NPO and complete GI checklist.
--- NOTE | 2020-06-08 21:51 | General Progress Note ---
Subjective Allergies: Coded Allergies: CIPROFLOXACIN (Verified Allergy, Unknown, 09/27/17) Subjective Above noted tolerating TF sleepy d/w PMD , RN , daughter and son family now agreeable to PEG placement all explained Objective Last 24 Hour Vital Signs Date Time Temp Pulse Resp B/P (MAP) Pulse Ox O2 Delivery O2 Flow Rate FiO2 06/08/20 19:39 99 20 100 Mechanical Ventilator 30 99 21 30 06/08/20 18:17 94 114/52 06/08/20 16:00 40 06/08/20 16:00 Mechanical Ventilator Mechanical Ventilator 06/08/20 16:00 92 06/08/20 16:00 97.9 92 20 103/51 (68) 100 06/08/20 14:53 89 14 100 Mechanical Ventilator 30 66 14 30 06/08/20 12:00 88 06/08/20 12:00 Mechanical Ventilator Mechanical Ventilator 06/08/20 12:00 93 98/59 06/08/20 12:00 99.1 93 20 111/51 (71) 100 06/08/20 12:00 40 06/08/20 11:10 101 20 100 30 90 20 06/08/20 08:00 40 06/08/20 08:00 Mechanical Ventilator Mechanical Ventilator 06/08/20 08:00 98.4 96 20 106/49 (68) 100 06/08/20 08:00 92 06/08/20 07:50 98 18 100 Mechanical Ventilator 30 98 18 06/08/20 05:55 68 114/62 06/08/20 04:00 Mechanical Ventilator Mechanical Ventilator 06/08/20 04:00 40 06/08/20 04:00 98.2 91 20 108/53 (71) 100 06/08/20 03:37 75 06/08/20 03:30 104 31 30 06/08/20 00:00 98.7 80 18 110/56 (74) 100 06/08/20 00:00 Mechanical Ventilator Mechanical Ventilator 06/08/20 00:00 40 06/07/20 23:36 69 06/07/20 23:30 102 20 30 06/07/20 23:10 80 110/56 Intake and Output 06/07/20 06/08/20 19:00 07:00 Intake Total 520 ml 605 ml Output Total 1050 ml 1000 ml Balance -530 ml -395 ml Free Water 125 ml Tube Feeding 520 ml 480 ml Output Urine Total 800 ml 1000 ml Stool Total 250 ml Laboratory Tests 06/08/20 00:07: POC Whole Blood Glucose 121H 06/08/20 04:52: White Blood Count 14.0H, Red Blood Count 3.08L, Hemoglobin 8.4L, Hematocrit 25.1L, Mean Corpuscular Volume 81, Mean Corpuscular Hemoglobin 27.2, Mean Corpuscular Hemoglobin Concent 33.3, Red Cell Distribution Width 15.9H, Platelet Count 469H, Mean Platelet Volume 5.0L, Neutrophils (%) (Auto) 63.0, Lymphocytes (%) (Auto) 21.4, Monocytes (%) (Auto) 13.2H, Eosinophils (%) (Auto) 0.2, Basophils (%) (Auto) 2.1H, Erythrocyte Sedimentation Rate 124H, Prothrombin Time 12.2H, Prothromb Time International Ratio 1.1, Activated Partial Thromboplast Time 26, Sodium Level 140, Potassium Level 3.4L, Chloride Level 103, Carbon Dioxide Level 32, Anion Gap 5, Blood Urea Nitrogen 42H, Creatinine 1.4H, Estimat Glomerular Filtration Rate 43.9, Glucose Level 117H, Calcium Level 7.4L, Total Bilirubin 0.5, Aspartate Amino Transf (AST/SGOT) 79H, Alanine Aminotransferase (ALT/SGPT) 61, Alkaline Phosphatase 256H, C-Reactive Protein, Quantitative 10.7H , Total Protein 5.5L, Albumin 1.1L, Globulin 4.4, Albumin/Globulin Ratio 0.2L, Amylase Level 76, Lipase 69L 06/08/20 05:40: POC Whole Blood Glucose [Pending] 06/08/20 12:33: POC Whole Blood Glucose [Pending] 06/08/20 17:03: POC Whole Blood Glucose [Pending] Height (Feet): 5 Height (Inches): 3.00 Weight (Pounds): 174 Objective Elderly AA woman sleepy, arousable neck (+) trach coars BS RR abd soft no edema Assessment/Plan Status: stable Assessment/Plan: Assessment - Transaminitis, COVID-19 vs GB disease - Gallstones - Resp failure - s/p trach - Dysphagia - NGT - CHF - Pulm HTN - Arrhythmia and periodic hypotension - off of Lovenox for PEG - Renal failure Recommendations - monitor LFT - Continue TF - PEG tomorrow at 0700 - Abx -Lovenox held. Will restart Justine Myrick MD Jun 08, 2020 21:51
--- NOTE | 2020-06-08 23:45 | NUR ---
NURSE NOTES: Rapid COVID swab test as ordered by Dr. Torres results are positive. Infectious Disease MD notified and will initiate droplet/airborne/contact precautions. Plan for PEG placement in AM will resume as ordered. Pt vitals WNL. Afebrile. Will monitor.
[2020-06-09] VITALS: BP 104/56
[2020-06-09 04:00] VITALS: BP 110/62
[2020-06-09] MEDS: NovoLOG Insulin Flexpen SUBQ SCH ×5 (05:18→23:20)
[2020-06-09] MEDS: dilTIAZem HCl 60mg tab NG SCH ×5 (05:18→23:21)
[2020-06-09 05:26] LABS: BASOPHILS % (AUTO) 2.2 % (0.0-2.0); EOSINOPHILS % (AUTO) 0.2 % (0.0-3.0); HEMATOCRIT 25.1 % (37.0-47.0); HEMOGLOBIN 8.5 G/DL (12.0-16.0); LYMPHOCYTES % (AUTO) 21.2 % (20.0-45.0); MEAN CORPUSCULAR VOLUME 81 FL (80-99); MONOCYTES % (AUTO) 13.4 % (1.0-10.0); PLATELET COUNT 490 K/UL (150-450); RED CELL DISTRIBUTION WIDTH 16.1 % (11.6-14.8)
[2020-06-09] MEDS ORDERED: ceFAZolin sod 1 GM in D5W 55 ML IVPB ONE (05:30)
--- NOTE | 2020-06-09 05:46 | NUR ---
NURSE NOTES: All due meds given as ordered. NPO as ordered for PEG tube in AM. Awaiting call back from Yonatan MCCRACKEN. Pt in stable condition and vitals WNL.
[2020-06-09 05:59] LABS: ALBUMIN 1.2 G/DL (3.4-5.0); ALBUMIN/GLOBULIN RATIO 0.2 (1.0-2.7); BILIRUBIN,TOTAL 0.4 MG/DL (0.2-1.0); CALCIUM 7.8 MG/DL (8.5-10.1); CREATININE 1.3 MG/DL (0.55-1.30); POTASSIUM 3.8 MMOL/L (3.5-5.1)
--- NOTE | 2020-06-09 06:00 | NUR ---
NURSE NOTES: Dr. Linn at bedside. Made aware of plan of care and COVID+ result. No new orders endorsed.
--- NOTE | 2020-06-09 06:23 | NUR ---
NURSE NOTES: Daughter Heike calling with update. Daughter insists on visiting post-op but made her aware of new COVID+ status and hospital policy. Daughter requests for IgG covid blood draw. She also requests for Accounts Receivable Coordinator to request placement at [facility] upon discharge.
[2020-06-09] MEDS ORDERED: Atropine Inj 1mg/10ml Syr IVP PRN (06:30)
[2020-06-09] MEDS ORDERED: fentaNYL 100 mcg/2 mL IV PRN (06:30)
[2020-06-09] MEDS ORDERED: Labetalol 5mg/ml 20ml vial IV PRN (06:30)
[2020-06-09] MEDS ORDERED: DiphenhydrAMINE 50mg/ml Inj IVP PRN (06:30)
--- NOTE | 2020-06-09 06:33 | Anethesia Preoperative Eval ---
Anesthesia Pre-op PMH/ROS General Date of Evaluation: Jun 09, 2020 Time of Evaluation: 06:32 Anesthesiologist: lizett ASA Score: ASA 4 Mallampati Score Class I : Soft palate, uvula, fauces, pillars visible Class II: Soft palate, uvula, fauces visible Class III: Soft palate, base of uvula visible Class IV: Only hard plate visible Mallampati Classification: Class II Surgeon: dami Diagnosis: dysphagia Surgical Procedure: peg Anesthesia History: none Social History: smoking - nonsmoker Family History: no anesthesia problems Allergies: Coded Allergies: CIPROFLOXACIN (Verified Allergy, Unknown, 09/27/17) Medications: see eMAR Patient NPO?: Yes Past Medical History Cardiovascular: Reports: MN, other - chf Pulmonary: Reports: asthma, COPD, other - pulmonary htn, pulmonary fibrosis, covid-19 positive, acute respiratory failure Gastrointestinal/Genitourinary: Reports: CRI, other - gallstones Neurologic/Psychiatric: Reports: other - dysphagia, Anesthesia Pre-op Phys. Exam Physician Exam Last Vital Signs Date Time Temp Pulse Resp B/P (MAP) Pulse Ox O2 Delivery O2 Flow Rate FiO2 06/09/20 05:18 82 110/55 06/09/20 04:00 Mechanical Ventilator Mechanical Ventilator 06/09/20 04:00 98.2 14 100 06/09/20 04:00 40 Constitutional: other - obtunded Neurologic: other Cardiovascular: other - bradycardia Respiratory: other - tracheostomy, mechanically ventilated Gastrointestinal: S/NT/ND Airway Exam Mallampati Score: Class III - oraly intubated MO: limited Neck: tracheostomy TMD: 2fb ROM: limited Anesthesia Pre-op A/P Labs Microbiology Date/Time Source Procedure Growth Status 06/08/20 23:00 Nasopharynx SARS-CoV-2 RdRp Gene Assay - Final Complete 05/26/20 17:55 Rectum Stool Culture - Final NO SALMONELLA,SHIGELLA,OR CAMPYLOBACT... Complete 05/26/20 12:10 Blood Blood Culture - Final NO GROWTH AFTER 5 DAYS Complete 05/26/20 12:00 Urine,Clean Catch Urine Culture - Final Sherly Tropicalis Complete 05/25/20 16:37 Stool Clostridium difficile Toxin Assay - Final Complete Hematology Test 06/09/20 04:20 White Blood Count 16.0 K/UL (4.8-10.8) H Red Blood Count 3.10 M/UL (4.20-5.40) L Hemoglobin 8.5 G/DL (12.0-16.0) L Hematocrit 25.1 % (37.0-47.0) L Mean Corpuscular Volume 81 FL (80-99) Mean Corpuscular Hemoglobin 27.3 PG (27.0-31.0) Mean Corpuscular Hemoglobin Concent 33.8 G/DL (32.0-36.0) Red Cell Distribution Width 16.1 % (11.6-14.8) H Platelet Count 490 K/UL (150-450) H Mean Platelet Volume 5.0 FL (6.5-10.1) L Neutrophils (%) (Auto) 63.0 % (45.0-75.0) Lymphocytes (%) (Auto) 21.2 % (20.0-45.0) Monocytes (%) (Auto) 13.4 % (1.0-10.0) H Eosinophils (%) (Auto) 0.2 % (0.0-3.0) Basophils (%) (Auto) 2.2 % (0.0-2.0) H Chemistry Test 06/08/20 12:33 06/08/20 17:03 06/09/20 04:20 POC Whole Blood Glucose Pending Pending Sodium Level 141 MMOL/L (136-145) Potassium Level 3.8 MMOL/L (3.5-5.1) Chloride Level 103 MMOL/L (98-107) Carbon Dioxide Level 31 MMOL/L (21-32) Anion Gap 7 mmol/L (5-15) Blood Urea Nitrogen 44 mg/dL (7-18) H Creatinine 1.3 MG/DL (0.55-1.30) Estimat Glomerular Filtration Rate 47.8 mL/min (>60) Glucose Level 97 MG/DL (74-106) Calcium Level 7.8 MG/DL (8.5-10.1) L Total Bilirubin 0.4 MG/DL (0.2-1.0) Aspartate Amino Transf (AST/SGOT) 104 U/L (15-37) H Alanine Aminotransferase (ALT/SGPT) 89 U/L (12-78) H Alkaline Phosphatase 272 U/L (46-116) H Total Protein 6.5 G/DL (6.4-8.2) Albumin 1.2 G/DL (3.4-5.0) L Globulin 5.3 g/dL Albumin/Globulin Ratio 0.2 (1.0-2.7) L Risk Assessment & Plan Assessment: asa4 Plan: mac Status Change Before Surgery: No Pre-Antibiotics Drug: ancef 1gm Given Within 1 Hr of Incision: Yes Time Given: 07:10 Ya Hernandez MD Jun 09, 2020 06:33
[2020-06-09] MEDS ORDERED: Lidocaine 1% MPF 10mg/ml 5ml ONE (07:00)
[2020-06-09] MEDS ORDERED: NS 275ml ONE (07:00)
[2020-06-09] MEDS ORDERED: NS 500ML IVPB ONE (07:05)
--- NOTE | 2020-06-09 07:11 | NUR ---
NURSE HAND-OFF REPORT: Important Events on Shift: PEG tube at bedside. Patient Status: Stable Diet: NPO Pending Orders: N Pending Results/Labs: N Pending MD notification: N Latest Vital Signs: Temperature 98.2 , Pulse 82 , B/P 110 /55 , Respiratory Rate 14 , O2 SAT 100 , Mechanical Ventilator, O2 Flow Rate 4.0 . Vital Sign Comment: WNL EKG Rhythm: Atrial Fibrillation Rhythm change?: N MD Notified?: N -Dr. Chris MCCRACKEN Response: Order Received& Read Back Latest Lechuga Fall Score: 50 Fall Risk: High Risk Safety Measures: Call light Within Reach, Bed Alarm Zone 1, Side Rails Side Rails x3, Bed position Low and Locked. Fall Precautions: Yellow Socks Yellow Gown Door Sign Patient Fall Education Report given to DAMIAN Parker.
[2020-06-09] MEDS: Ipratropium Bromide Inhaler INH SCH ×4 (07:14→19:58)
--- NOTE | 2020-06-09 07:14 | Pre-Procedure Note/Attestation ---
Pre-Procedure Note/Attestation Complete Prior to Procedure Planned Procedure: not applicable Procedure Narrative: esophagogastroduodenoscopy PEG Indications for Procedure Pre-Operative Diagnosis: dysphagia Attestation I attest that I discussed the nature of the procedure; its benefits; risks and complications; and alternatives (and the risks and benefits of such alternatives), prior to the procedure, with the patient (or the patient's legal customer retention representative). I attest that, if there was a reasonable possibility of needing a blood transfusion, the patient (or the patient's legal customer retention representative) was given the [facility] standardized written summary, pursuant to the Ranjan Esteban Blood Safety Act ([place] Health and Safety Code # 1645, as amended). I attest that I re-evaluated the patient just prior to the surgery and that there has been no change in the patient's H&P, except as documented below: Justine Torres MD Jun 09, 2020 07:14
--- NOTE | 2020-06-09 07:14 | General Progress Note ---
Subjective Allergies: Coded Allergies: CIPROFLOXACIN (Verified Allergy, Unknown, 09/27/17) Subjective Above noted off feeds since MN no events d/w anesthesia WBC higher Objective Last 24 Hour Vital Signs Date Time Temp Pulse Resp B/P (MAP) Pulse Ox O2 Delivery O2 Flow Rate FiO2 06/09/20 05:18 82 110/55 06/09/20 04:00 Mechanical Ventilator Mechanical Ventilator 06/09/20 04:00 98.2 80 14 110/62 (78) 100 06/09/20 04:00 40 06/09/20 03:35 61 06/09/20 03:32 74 14 30 06/09/20 00:00 68 104/56 06/09/20 00:00 98.2 68 20 104/56 (72) 100 06/09/20 00:00 Mechanical Ventilator Mechanical Ventilator 06/09/20 00:00 72 06/08/20 23:34 83 14 30 06/08/20 20:00 97.9 99 20 100/50 (67) 100 06/08/20 20:00 Mechanical Ventilator Mechanical Ventilator 06/08/20 20:00 40 06/08/20 19:39 99 20 100 Mechanical Ventilator 30 99 21 30 06/08/20 19:05 99 06/08/20 18:17 94 114/52 06/08/20 16:00 40 06/08/20 16:00 Mechanical Ventilator Mechanical Ventilator 06/08/20 16:00 92 06/08/20 16:00 97.9 92 20 103/51 (68) 100 06/08/20 14:53 89 14 100 Mechanical Ventilator 30 66 14 30 06/08/20 12:00 88 06/08/20 12:00 Mechanical Ventilator Mechanical Ventilator 06/08/20 12:00 93 98/59 06/08/20 12:00 99.1 93 20 111/51 (71) 100 06/08/20 12:00 40 06/08/20 11:10 101 20 100 30 90 20 06/08/20 08:00 40 06/08/20 08:00 Mechanical Ventilator Mechanical Ventilator 06/08/20 08:00 98.4 96 20 106/49 (68) 100 06/08/20 08:00 92 06/08/20 07:50 98 18 100 Mechanical Ventilator 30 98 18 Intake and Output 06/08/20 06/09/20 19:00 07:00 Intake Total 895 ml 220 ml Output Total 800 ml 1000 ml Balance 95 ml -780 ml Free Water 415 ml 60 ml Tube Feeding 480 ml 160 ml Output Urine Total 800 ml 1000 ml # Bowel Movements 70 Laboratory Tests 06/08/20 12:33: POC Whole Blood Glucose [Pending] 06/08/20 17:03: POC Whole Blood Glucose [Pending] 06/09/20 04:20: White Blood Count 16.0H, Red Blood Count 3.10L, Hemoglobin 8.5L, Hematocrit 25.1L, Mean Corpuscular Volume 81, Mean Corpuscular Hemoglobin 27.3, Mean Corpuscular Hemoglobin Concent 33.8, Red Cell Distribution Width 16.1H, Platelet Count 490H, Mean Platelet Volume 5.0L, Neutrophils (%) (Auto) 63.0, Lymphocytes (%) (Auto) 21.2, Monocytes (%) (Auto) 13.4H, Eosinophils (%) (Auto) 0.2, Basophils (%) (Auto) 2.2H, Sodium Level 141, Potassium Level 3.8, Chloride Level 103, Carbon Dioxide Level 31, Anion Gap 7, Blood Urea Nitrogen 44H, Creatinine 1.3, Estimat Glomerular Filtration Rate 47.8, Glucose Level 97, Calcium Level 7.8L, Total Bilirubin 0.4, Aspartate Amino Transf (AST/SGOT) 104H, Alanine Aminotransferase (ALT/SGPT) 89H, Alkaline Phosphatase 272H, Total Protein 6.5, Albumin 1.2L, Globulin 5.3, Albumin/Globulin Ratio 0.2L Height (Feet): 5 Height (Inches): 2.00 Weight (Pounds): 158 Objective Elderly AA woman sleepy, arousable neck (+) trach coars BS RR abd soft no edema Assessment/Plan Status: stable Assessment/Plan: Assessment - Transaminitis, COVID-19 vs GB disease - Gallstones - rising WBC --> ? source - Resp failure - s/p trach - Dysphagia - NGT --> for PEG today - CHF - Pulm HTN - Arrhythmia and periodic hypotension - off of Lovenox for PEG - Renal failure Recommendations - monitor LFT - Continue TF - PEG today - Abx -Lovenox held. Will restart tonight - consider CT abd and pelvis Justine Torres MD Jun 09, 2020 07:14
--- NOTE | 2020-06-09 07:41 | NUR ---
NURSE NOTES: Received report from DAMIAN Luna. Patient in bed, A/O x2. On mechanical ventilator, saturating well. In no apparent distress noted. Rectal tube in place, intact. Riojas catheter in place, intant and patent draining color yellowish urine via gravity. S/P Peg placement with an order to hold feeding for now, may access only for meds. Tolerated well the procedure, no active bleeding noted. Iv access on R thumb #20, Dr Olvera put patient in D5 1/2 Ns @ 75cc/hr. Safety measures in place. Call light within reach. Will continue to monitor.
--- NOTE | 2020-06-09 07:49 | Pulmonology Progress Note ---
Subjective ROS Limited/Unobtainable: Yes Constitutional: Reports: no symptoms Musculoskeletal: Denies: pain Allergies: Coded Allergies: CIPROFLOXACIN (Verified Allergy, Unknown, 09/27/17) All Systems: reviewed and negative except above Subjective on vent- awaiting gt this am daughter -discussed in detail comfortable COVID- reduced LOC Objective Last 24 Hour Vital Signs Date Time Temp Pulse Resp B/P (MAP) Pulse Ox O2 Delivery O2 Flow Rate FiO2 06/09/20 07:15 85 16 100 Mechanical Ventilator 30 84 16 30 06/09/20 05:18 82 110/55 06/09/20 04:00 Mechanical Ventilator Mechanical Ventilator 06/09/20 04:00 98.2 80 14 110/62 (78) 100 06/09/20 04:00 40 06/09/20 03:35 61 06/09/20 03:32 74 14 30 06/09/20 00:00 68 104/56 06/09/20 00:00 98.2 68 20 104/56 (72) 100 06/09/20 00:00 Mechanical Ventilator Mechanical Ventilator 06/09/20 00:00 72 06/08/20 23:34 83 14 30 06/08/20 20:00 97.9 99 20 100/50 (67) 100 06/08/20 20:00 Mechanical Ventilator Mechanical Ventilator 06/08/20 20:00 40 06/08/20 19:39 99 20 100 Mechanical Ventilator 30 99 21 30 06/08/20 19:05 99 06/08/20 18:17 94 114/52 06/08/20 16:00 40 06/08/20 16:00 Mechanical Ventilator Mechanical Ventilator 06/08/20 16:00 92 06/08/20 16:00 97.9 92 20 103/51 (68) 100 06/08/20 14:53 89 14 100 Mechanical Ventilator 30 66 14 30 06/08/20 12:00 88 06/08/20 12:00 Mechanical Ventilator Mechanical Ventilator 06/08/20 12:00 93 98/59 06/08/20 12:00 99.1 93 20 111/51 (71) 100 06/08/20 12:00 40 06/08/20 11:10 101 20 100 30 90 20 06/08/20 08:00 40 06/08/20 08:00 Mechanical Ventilator Mechanical Ventilator 06/08/20 08:00 98.4 96 20 106/49 (68) 100 06/08/20 08:00 92 06/08/20 07:50 98 18 100 Mechanical Ventilator 30 98 18 Intake and Output 06/08/20 06/09/20 19:00 07:00 Intake Total 895 ml 220 ml Output Total 800 ml 1000 ml Balance 95 ml -780 ml Free Water 415 ml 60 ml Tube Feeding 480 ml 160 ml Output Urine Total 800 ml 1000 ml # Bowel Movements 70 Objective deferred due to COVID Microbiology Date/Time Source Procedure Growth Status 06/08/20 23:00 Nasopharynx SARS-CoV-2 RdRp Gene Assay - Final Complete Laboratory Tests 06/08/20 12:33: POC Whole Blood Glucose [Pending] 06/08/20 17:03: POC Whole Blood Glucose [Pending] 06/09/20 04:20: White Blood Count 16.0H, Red Blood Count 3.10L, Hemoglobin 8.5L, Hematocrit 25.1L, Mean Corpuscular Volume 81, Mean Corpuscular Hemoglobin 27.3, Mean Corpuscular Hemoglobin Concent 33.8, Red Cell Distribution Width 16.1H, Platelet Count 490H, Mean Platelet Volume 5.0L, Neutrophils (%) (Auto) 63.0, Lymphocytes (%) (Auto) 21.2, Monocytes (%) (Auto) 13.4H, Eosinophils (%) (Auto) 0.2, Bas ophils (%) (Auto) 2.2H, Sodium Level 141, Potassium Level 3.8, Chloride Level 103, Carbon Dioxide Level 31, Anion Gap 7, Blood Urea Nitrogen 44H, Creatinine 1.3, Estimat Glomerular Filtration Rate 47.8, Glucose Level 97, Calcium Level 7.8L, Total Bilirubin 0.4, Aspartate Amino Transf (AST/SGOT) 104H, Alanine Aminotransferase (ALT/SGPT) 89H, Alkaline Phosphatase 272H, Total Protein 6.5, Albumin 1.2L, Globulin 5.3, Albumin/Globulin Ratio 0.2L Current Medications Medications (Trade) Dose Ordered Sig/Ghislaine Route PRN Reason Start Time Stop Time Status Last Admin Dose Admin Acetaminophen (Tylenol) 650 mg Q4H PRN NG Temp >100.5 05/25/20 16:15 06/24/20 16:14 06/06/20 12:06 Acetaminophen (Tylenol) 650 mg Q4H PRN ORAL Mild Pain (Pain Scale 1-3) 06/09/20 06:30 06/09/20 15:00 Al Hydroxide/Mg Hydroxide (Mylanta) 15 ml Q1H PRN ORAL gi upset 06/09/20 06:30 06/09/20 15:00 Atropine Sulfate (Atropine) 0.5 mg Q5M PRN IVP bpm less than 45 06/09/20 06:30 06/09/20 15:00 Barium Sulfate (Varibar Honey) 250 ml NOW PRN MC RAD 06/08/20 06:30 06/11/20 06:24 Barium Sulfate (Varibar Carmet) 240 ml NOW PRN RAD 06/08/20 06:30 06/11/20 06:24 Barium Sulfate (Varibar Pudding) 230 ml NOW PRN RAD 06/08/20 06:30 06/11/20 06:24 Barium Sulfate (Varibar Thin Liquid powder) 148 gm NOW PRN RAD 06/08/20 06:30 06/11/20 06:24 Dextrose (Dextrose 50%) 25 ml Q30M PRN IV Hypoglycemia 05/22/20 18:30 08/20/20 18:29 Dextrose (Dextrose 50%) 50 ml Q30M PRN IV Hypoglycemia 05/22/20 18:30 08/20/20 18:29 Diltiazem HCl (Cardizem Tab) 60 mg EVERY 6 HOURS NG 06/07/20 06:00 07/07/20 05:59 06/09/20 05:18 Diphenhydramine HCl (Benadryl) 25 mg Q15M PRN IVP Itching 06/09/20 06:30 06/09/20 15:00 Fentanyl Citrate (Sublimaze 100 mcg/2 mL) 25 mcg Q10M PRN IV Moderate Pain (Pain Scale 4-6) 06/09/20 06:30 06/09/20 15:00 Insulin Aspart (NovoLOG) Q6HR SUBQ 05/23/20 00:00 08/20/20 20:59 06/02/20 00:00 Ipratropium Pattison (Atrovent Inh) 1 puffs QIDRT INH 06/01/20 07:00 06/26/20 09:59 06/09/20 07:14 Labetalol HCl (Normodyne) 5 mg Q10M PRN IV SBP>160 or____/ DBP>90 or 06/09/20 06:30 06/09/20 15:00 Lansoprazole (Prevacid) 30 mg DAILY NG 06/06/20 09:00 07/06/20 08:59 06/08/20 08:55 Loperamide HCl (Imodium) 2 mg Q6H PRN NG Diarrhea 05/26/20 17:45 06/25/20 17:44 06/03/20 15:04 Ondansetron HCl (Zofran) 4 mg Q1H PRN IVP Nausea & Vomiting 06/09/20 06:30 06/09/20 15:00 Sodium Chloride 1,000 ml @ 10 mls/hr Q24H IVLG 06/09/20 06:30 06/09/20 08:29 06/09/20 06:30 Assessment/Plan Assessment/Plan Impression: COVID-19 Chronic obstructive pulmonary disease/Asthma Community acquired pneumonia Atrial fibrillation with RVR Elevated troponin Congestive heart Failure sinus tachycardia Hypoxemia transaminitis with gallstones acute on chronic renal failure acute respiratory failure hypotension tachycardia transaminitis MODS anemia NSVT Plan ID noted gi for GT/ hope today monitor vitals-better Vent support/and trach care feeds per dietary on lovenox Bronchodilator therapy GT needed Monitor labs/ renal follow up - renal function still reduced- Covid 19 negative nutrition as able with very low albumin levels reviewed care and optimize position change and monitor skin surgical follow up noted monitor protein levels and adjust will need placement when gt placed impression, plan, and exam edited and reviewed in detail care discussed with Aaron Bales MD Jun 09, 2020 07:49
[2020-06-09 08:00] VITALS: BP 118/56
--- NOTE | 2020-06-09 08:43 | Immediate Post-Op Evaluation ---
Immediate Post-Op Evalulation Immediate Post-Op Evalulation Procedure: peg Date of Evaluation: Jun 09, 2020 Time of Evaluation: 07:57 IV Fluids: 150ml 0.9ns Blood Products: none Estimated Blood Loss: negligible Blood Pressure Systolic: 115 Blood Pressure Diastolic: 56 Pulse Rate: 69 Respiratory Rate: 14 O2 Sat by Pulse Oximetry: 100 Temperature (Fahrenheit): 98.2 Pain Score (1-10): 0 Nausea: No Vomiting: No Complications none Patient Status: awake, reacts, patent, ventilated Hydration Status: adequate Drug: ancef 1gm Given Within 1 Hr of Incision: Yes Time Given: 07:10 Ya Hernandez MD Jun 09, 2020 08:43
--- NOTE | 2020-06-09 08:44 | 48 Hour Post Anesthesia Eval ---
Post Anesthesia Evaluation Procedure: peg Date of Evaluation: Jun 09, 2020 Time of Evaluation: 07:59 Blood Pressure Systolic: 110 0: 55 Pulse Rate: 69 Respiratory Rate: 14 Temperature (Fahrenheit): 98.2 O2 Sat by Pulse Oximetry: 100 Airway: patent Nausea: No Vomiting: No Pain Intensity: 0 Hydration Status: adequate Cardiopulmonary Status: stable Mental Status/LOC: patient returned to baseline Post-Anesthesia Complications: none Follow-up care needed: N/A Ya Hernandez MD Jun 09, 2020 08:44
--- NOTE | 2020-06-09 09:08 | NUR ---
RD ASSESSMENT & RECOMMENDATIONS SEE CARE ACTIVITY FOR COMPLETE ASSESSMENT DAILY ESTIMATED NEEDS: Needs based on Critical Care, ARF/ 56kg abw 22-28 kcals/kg 0040-7530 total kcals 1-2 g protein/kg 56-112 g total protein 25-30 mL/kg 2138-7450 total fluid mLs NUTRITION DIAGNOSIS: * Altered nutrition related lab values r/t clinical status as evidenced by elev BUN(50 trend down), creat(2.0->4.0->1.4), low K (3.2-> wnl), critical ABG (low pH,elev CO2)-> now improved. * Swallowing difficulty R/T respiratory status as evidenced by s/p oral intubation, s/p trach placement (05/29), s/p PEG placement today (06/09). CURRENT TF:VITAL AF 1.2 @ 40ml/hr x 24hrs- NOW NPO ENTERAL NUTRITION RECOMMENDATIONS: Vital AF 1.2 @ 45ml/hr x 24 hrs to provide 1080ml, 1296kcal, 81g prot, 876ml free water * Okay to continue elemental TF formula of Vital while + diarrhea * Increase goal rate to 45ml/hr x 24 hrs to meet 100% est kcal/prot needs * HOB over 30 degrees/ water flush per MD ADDITIONAL RECOMMENDATIONS: 1) Calibrated bedscale wt: daily wts fluctuating 80's-> 70's-> 60's kg 2) Monitor renal fxn and lytes, need to resume renal TF -> Creat 2.0-> 4.0-> 1.4: improving, lytes wnl 3) Rec niss - now added, improved glycemic control 4) Probiotics for diarrhea -> monitor for ability to transfer to standard carb control formula .
[2020-06-09] MEDS: D5 1/2NS 1,000 ML IV SCH ×2 (09:15→20:41)
--- NOTE | 2020-06-09 09:45 | Procedure Note ---
DATE OF PROCEDURE: 06/09/2020 GASTROENTEROLOGY PROCEDURE REPORT PROCEDURE: Upper gastrointestinal endoscopy with gastrostomy tube placement. SURGEON: Justine Torres MD. ANESTHESIA: Please see the separate anesthesiologist notes for details. PRE-ENDOSCOPIC DIAGNOSIS: Dysphagia. POST-ENDOSCOPIC DIAGNOSES: 1. Mild gastritis. 2. Status post gastrostomy tube placement. DESCRIPTION OF PROCEDURE: The procedure, its risks, indications, alternatives, and possible complications were explained to the patient's daughter and informed consent was obtained. The patient was then sedated in the supine position. A diagnostic upper endoscope was introduced through oropharynx and advanced to the duodenum. The endoscope was then gradually withdrawn and mucosa examined carefully. Examination of the upper gastrointestinal mucosa revealed mild erosive gastritis in the antrum. A location for placement of the gastrostomy tube was identified by palpation and transillumination techniques. The outside skin was sterilely prepared, anesthetized, incised, and the trocar needle was used to place the gastrostomy catheter using the pull technique. Position was verified endoscopically. The dressings were applied. The endoscope was removed. The patient was left to recovery in good condition. RECOMMENDATIONS: 1. Observe overnight. 2. Begin tube feedings tomorrow. 3. Gastrostomy tube care per RN . Justine Torres M.D. DR: Amanda JOB#: [id number] CC: [email or web address]
--- NOTE | 2020-06-09 10:00 | NUR ---
NURSE NOTES: Pt. awake. No sign of distress. S/P GT placement. New GT site cover with silk tape. No stain noted. No grimacing noted. Will cont. to monitor.
--- NOTE | 2020-06-09 10:26 | NUR ---
Speech Pathology Note (Dysphagia service DC note) PEG placed this morning. I will sign off from service at this time. Further recommendation: 1. Speech(Passy Adrianna Speaking Valve)/Swallow evaluation and treatment at next level of care. -Please re-order if/when plans of care changes here at [facility], or any questions specific to my service Gaye Price
--- NOTE | 2020-06-09 10:43 | General Progress Note ---
Subjective ROS Limited/Unobtainable: Yes Constitutional: Reports: malaise, weakness HEENT: Reports: no symptoms Cardiovascular: Reports: no symptoms Respiratory: Reports: cough, SOB with excertion, sputum Gastrointestinal/Abdominal: Reports: difficulty swallowing Genitourinary: Reports: no symptoms Neurologic/Psychiatric: Reports: no symptoms Endocrine: Reports: no symptoms Hematologic/Lymphatic: Reports: anemia Allergies: Coded Allergies: CIPROFLOXACIN (Verified Allergy, Unknown, 09/27/17) All Systems: reviewed and negative except above Subjective no events. npo for gt. stable on the vent. no fever or chills. no sob. dtr agrees to gt placement. Objective Last 24 Hour Vital Signs Date Time Temp Pulse Resp B/P (MAP) Pulse Ox O2 Delivery O2 Flow Rate FiO2 06/09/20 08:44 69 14 100 06/09/20 08:43 69 14 100 06/09/20 08:00 40 06/09/20 08:00 98.1 83 16 118/56 (76) 99 06/09/20 08:00 76 06/09/20 07:15 85 16 100 Mechanical Ventilator 30 84 16 30 06/09/20 05:18 82 110/55 06/09/20 04:00 Mechanical Ventilator Mechanical Ventilator 06/09/20 04:00 98.2 80 14 110/62 (78) 100 06/09/20 04:00 40 06/09/20 03:35 61 06/09/20 03:32 74 14 30 06/09/20 00:00 68 104/56 06/09/20 00:00 98.2 68 20 104/56 (72) 100 06/09/20 00:00 Mechanical Ventilator Mechanical Ventilator 06/09/20 00:00 72 06/08/20 23:34 83 14 30 06/08/20 20:00 97.9 99 20 100/50 (67) 100 06/08/20 20:00 Mechanical Ventilator Mechanical Ventilator 06/08/20 20:00 40 06/08/20 19:39 99 20 100 Mechanical Ventilator 30 99 21 30 06/08/20 19:05 99 06/08/20 18:17 94 114/52 06/08/20 16:00 40 06/08/20 16:00 Mechanical Ventilator Mechanical Ventilator 06/08/20 16:00 92 06/08/20 16:00 97.9 92 20 103/51 (68) 100 06/08/20 14:53 89 14 100 Mechanical Ventilator 30 66 14 30 06/08/20 12:00 88 06/08/20 12:00 Mechanical Ventilator Mechanical Ventilator 06/08/20 12:00 93 98/59 06/08/20 12:00 99.1 93 20 111/51 (71) 100 06/08/20 12:00 40 06/08/20 11:10 101 20 100 30 90 20 Intake and Output 06/08/20 06/09/20 19:00 07:00 Intake Total 895 ml 220 ml Output Total 800 ml 1000 ml Balance 95 ml -780 ml Free Water 415 ml 60 ml Tube Feeding 480 ml 160 ml Output Urine Total 800 ml 1000 ml # Bowel Movements 70 Laboratory Tests 06/08/20 12:33: POC Whole Blood Glucose [Pending] 06/08/20 17:03: POC Whole Blood Glucose [Pending] 06/09/20 04:20: White Blood Count 16.0H, Red Blood Count 3.10L, Hemoglobin 8.5L, Hematocrit 25.1L, Mean Corpuscular Volume 81, Mean Corpuscular Hemoglobin 27.3, Mean Corpuscular Hemoglobin Concent 33.8, Red Cell Distribution Width 16.1H, Platelet Count 490H, Mean Platelet Volume 5.0L, Neutrophils (%) (Auto) 63.0, Lymphocytes (%) (Auto) 21.2, Monocytes (%) (Auto) 13.4H, Eosinophils (%) (Auto) 0.2, Basophils (%) (Auto) 2.2H, Sodium Level 141, Potassium Level 3.8, Chloride Level 103, Carbon Dioxide Level 31, Anion Gap 7, Blood Urea Nitrogen 44H, Creatinine 1.3, Estimat Glomerular Filtration Rate 47.8, Glucose Level 97, Calcium Level 7.8L, Total Bilirubin 0.4, Aspartate Amino Transf (AST/SGOT) 104H, Alanine Carrillo otransferase (ALT/SGPT) 89H, Alkaline Phosphatase 272H, Total Protein 6.5, Albumin 1.2L, Globulin 5.3, Albumin/Globulin Ratio 0.2L Height (Feet): 5 Height (Inches): 2.00 Weight (Pounds): 158 General Appearance: WD/WN, alert EENT: normal ENT inspection Neck: non-tender, normal alignment Cardiovascular: normal peripheral pulses, normal rate Respiratory/Chest: chest wall non-tender, lungs clear, normal breath sounds, no respiratory distress Abdomen: normal bowel sounds, non tender, soft, no organomegaly, no mass Edema: no edema noted Arm (L), no edema noted Arm (R) 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 orally intubated EENT: PERRL/EOMI Neck: non-tender, normal alignment, supple Cardiovascular: normal rate, regular rhythm Respiratory/Chest: chest wall non-tender, lungs clear, normal breath sounds, no respiratory distress, no accessory muscle use Abdomen: normal bowel sounds, non tender, soft, no organomegaly Edema: no edema noted Arm (L), no edema noted Arm (R) Neurologic: internet researcher II-XII grossly normal, alert, oriented x 3, responsive Skin: normal pigmentation Lymphatic: normal anterior cervical (L), normal anterior cervical (R) Assessment/Plan Problem List: (1) Pulmonary fibrosis ICD Codes: J84.10 - Pulmonary fibrosis, unspecified SNOMED: 55621292 (2) History of asthma ICD Codes: Z87.09 - Personal history of other diseases of the respiratory system SNOMED: 988018612 (3) Asthma ICD Codes: J45.909 - Unspecified asthma, uncomplicated SNOMED: 178466275 (4) NSTEMI (non-ST elevated myocardial infarction) ICD Codes: I21.4 - Non-ST elevation (NSTEMI) myocardial infarction SNOMED: 910599395 (5) Elevated troponin ICD Codes: R79.89 - Other specified abnormal findings of blood chemistry SNOMED: 288677814, 911051077, 603464473 (6) COPD (chronic obstructive pulmonary disease) ICD Codes: J44.9 - Chronic obstructive pulmonary disease, unspecified SNOMED: 40531909 (7) Atrial fibrillation with RVR ICD Codes: I48.91 - Unspecified atrial fibrillation SNOMED: 661194862044869 (8) Community acquired pneumonia ICD Codes: J18.9 - Pneumonia, unspecified organism SNOMED: 693806798 Status: stable Assessment/Plan: vent support resp rx and suctioning as needed NGT feeds GT per GI d/w dtr agrees with GT placement off abx turn q2 skin care imodium for diarrhea dvt/stress ulcer prophylaxis remains gaurded monitor wbc Bradford Linn MD Jun 09, 2020 10:43
--- NOTE | 2020-06-09 11:00 | Surgery Progress Note ---
Surgery Progress Note Subjective Procedure Performed trach Additional Comments leukocytosis lft's elevated no n/v us ordered Objective Last 24 Hour Vital Signs Date Time Temp Pulse Resp B/P (MAP) Pulse Ox O2 Delivery O2 Flow Rate FiO2 06/09/20 10:47 84 14 100 Mechanical Ventilator 30 85 15 30 06/09/20 08:44 69 14 100 06/09/20 08:43 69 14 100 06/09/20 08:00 40 06/09/20 08:00 98.1 83 16 118/56 (76) 99 06/09/20 08:00 76 06/09/20 07:15 85 16 100 Mechanical Ventilator 30 84 16 30 06/09/20 05:18 82 110/55 06/09/20 04:00 Mechanical Ventilator Mechanical Ventilator 06/09/20 04:00 98.2 80 14 110/62 (78) 100 06/09/20 04:00 40 06/09/20 03:35 61 06/09/20 03:32 74 14 30 06/09/20 00:00 68 104/56 06/09/20 00:00 98.2 68 20 104/56 (72) 100 06/09/20 00:00 Mechanical Ventilator Mechanical Ventilator 06/09/20 00:00 72 06/08/20 23:34 83 14 30 06/08/20 20:00 97.9 99 20 100/50 (67) 100 06/08/20 20:00 Mechanical Ventilator Mechanical Ventilator 06/08/20 20:00 40 06/08/20 19:39 99 20 100 Mechanical Ventilator 30 99 21 30 06/08/20 19:05 99 06/08/20 18:17 94 114/52 06/08/20 16:00 40 06/08/20 16:00 Mechanical Ventilator Mechanical Ventilator 06/08/20 16:00 92 06/08/20 16:00 97.9 92 20 103/51 (68) 100 06/08/20 14:53 89 14 100 Mechanical Ventilator 30 66 14 30 06/08/20 12:00 88 06/08/20 12:00 Mechanical Ventilator Mechanical Ventilator 06/08/20 12:00 93 98/59 06/08/20 12:00 99.1 93 20 111/51 (71) 100 06/08/20 12:00 40 06/08/20 11:10 101 20 100 30 90 20 I&O Intake and Output 06/08/20 06/09/20 19:00 07:00 Intake Total 895 ml 220 ml Output Total 800 ml 1000 ml Balance 95 ml -780 ml Free Water 415 ml 60 ml Tube Feeding 480 ml 160 ml Output Urine Total 800 ml 1000 ml # Bowel Movements 70 Cardiovascular: RSR Respiratory: decreased breath sounds Abdomen: soft, non-tender, present bowel sounds Extremities: no tenderness, no cyanosis Laboratory Tests Test 06/08/20 12:33 06/08/20 17:03 06/09/20 04:20 POC Whole Blood Glucose Pending Pending White Blood Count 16.0 K/UL (4.8-10.8) H Red Blood Count 3.10 M/UL (4.20-5.40) L Hemoglobin 8.5 G/DL (12.0-16.0) L Hematocrit 25.1 % (37.0-47.0) L Mean Corpuscular Volume 81 FL (80-99) Mean Corpuscular Hemoglobin 27.3 PG (27.0-31.0) Mean Corpuscular Hemoglobin Concent 33.8 G/DL (32.0-36.0) Red Cell Distribution Width 16.1 % (11.6-14.8) H Platelet Count 490 K/UL (150-450) H Mean Platelet Volume 5.0 FL (6.5-10.1) L Neutrophils (%) (Auto) 63.0 % (45.0-75.0) Lymphocytes (%) (Auto) 21.2 % (20.0-45.0) Monocytes (%) (Auto) 13.4 % (1.0-10.0) H Eosinophils (%) (Auto) 0.2 % (0.0-3.0) Basophils (%) (Auto) 2.2 % (0.0-2.0) H Sodium Level 141 MMOL/L (136-145) Potassium Level 3.8 MMOL/L (3.5-5.1) Chloride Level 103 MMOL/L (98-107) Carbon Dioxide Level 31 MMOL/L (21-32) Anion Gap 7 mmol/L (5-15) Blood Urea Nitrogen 44 mg/dL (7-18) H Creatinine 1.3 MG/DL (0.55-1.30) Estimat Glomerular Filtration Rate 47.8 mL/min (>60) Glucose Level 97 MG/DL (74-106) Calcium Level 7.8 MG/DL (8.5-10.1) L Total Bilirubin 0.4 MG/DL (0.2-1.0) Aspartate Amino Transf (AST/SGOT) 104 U/L (15-37) H Alanine Aminotransferase (ALT/SGPT) 89 U/L (12-78) H Alkaline Phosphatase 272 U/L (46-116) H Total Protein 6.5 G/DL (6.4-8.2) Albumin 1.2 G/DL (3.4-5.0) L Globulin 5.3 g/dL Albumin/Globulin Ratio 0.2 (1.0-2.7) L Plan Problems: (1) Elevated troponin (2) Atrial fibrillation with RVR (3) COVID-19 Assessment & Plan: ++ as per pulm and ID trach DAILY ESTIMATED NEEDS: Needs based on Critical Care, ARF/ 56kg abw 22-28 kcals/kg 8875-8789 total kcals 0.8-1.5 (increase w/ renal improvement) g protein/kg 45-84 g total protein 25-30 mL/kg 5278-3073 total fluid mLs NUTRITION DIAGNOSIS: * Altered nutrition related lab values r/t clinical status as evidenced by elev BUN(82), creat(3.8) trending up, critical ABG (low pH, elev CO2)-> now improved. * Swallowing difficulty R/T respiratory status as evidenced by s/p oral intubation, on OGT feeds. 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 eval post extubation ENTERAL NUTRITION RECOMMENDATIONS: Nepro @ 35ml/hr x 24 hrs to provide 840ml, 1512kcal, 68g prot, 610ml free water * W/ worsening renal fxn, rec to continue Nepro * As tolerated, increase goal rate to 35ml/hr x 24 hrs to meet 100% est kcal/prot needs ADDITIONAL RECOMMENDATIONS: 1) Calibrated bedscale wt 2) Monitor renal fxn and lytes, need to continue Nepro Creat trending up 3) Rec niss w/ solumedrol (4) Community acquired pneumonia (5) COPD (chronic obstructive pulmonary disease) (6) Pulmonary fibrosis (7) Asthma (8) History of asthma (9) NSTEMI (non-ST elevated myocardial infarction) (10) Moderate to severe pulmonary hypertension (11) Asthma exacerbation (12) Abnormal LFTs Assessment & Plan: afebrile, HD stable labs noted lft's elevated US reviewed exam benign gb likely reactive from underlying pathology unlikely cholecystitis clinically fluid overload trend labs will monitor exam clinically covid + prognosis guarded cxr reviewed on abx worsening plan repeat US - noted cannot get hida given covid labs noted worsening leukocytosis Gallbladder demonstrates wall thickening and wall edema, gallbladder wall measuring up to 6 mm thick. There are gallstones. Sonographic Escoto's sign is negative. Common bile duct measures 3 mm in diameter. No intrahepatic biliary ductal dilatation. Liver demonstrates normal echogenicity, no focal abnormality. Portal vein and hepatic veins are patent. Pancreas is unremarkable. Spleen is unremarkable. Left kidney measures 9.2 cm in length. Right kidney measures 9.9 cm length. Both kidneys demonstrate normal echogenicity. There is no hydronephrosis. Small cyst is seen in the right kidney. . Abdominal aorta was not imaged . There is trace ascites. There is a small right pleural effusion incidentally noted Impression: Small right pleural effusion. Trace ascites Cholelithiasis. Gallbladder wall thickening may be related to hemodynamic factors causing the pleural fluid and ascites, but could also indicate acute cholecystitis. Consider nuclear medicine hepatobiliary scan if there is high clinical suspicion. Negative for dilated bile ducts Small right renal cyst incidentally noted (13) Acute respiratory failure with hypoxia Assessment & Plan: s/p trach discussed with family comfortable weaning Quentin Sanchez Jun 09, 2020 11:00
[2020-06-09 12:00] VITALS: BP 107/62
--- NOTE | 2020-06-09 12:30 | NUR ---
NURSE NOTES: Pt. dtr. Burroughs called and gave her update s/p GT placement. No bleeding noted at the site. Pt. remain stable.
--- NOTE | 2020-06-09 13:35 | NUR ---
RADIOLOGY DEPT., ABDOMEN X-RAY FOR PEG (J-TUBE) PLCMT HAS BEEN PERFORMED.-P.DYE
--- NOTE | 2020-06-09 13:35 | Diagnostic Imaging Report ---
Indication: Postgastrostomy replacement Technique: Supine view of the abdomen after injection of water-soluble contrast into gastrostomy Comparison: 05/24/2020 Findings: Contrast opacifies the stomach. No contrast extravasation is demonstrated. The bowel gas pattern is unremarkable. The gastrostomy is a new finding from the prior study, and previously demonstrated nasogastric tube is no longer present Impression: Satisfactory position of gastrostomy tube
--- NOTE | 2020-06-09 13:42 | Infectious Diseases Prog Note ---
Assessment/Plan Assessment/Plan antibiotics : none A 1. COVID 19 pneumonia s/p ivermectin 9.7.20 2. COPD 3. CHF 4. asthma 5. respiratory failure s/p tracheostomy 6. leucocytosis resolved 7. pseudomonas pneumonia s/p rx P 1. continue off antibiotics Subjective ROS Limited/Unobtainable: Yes Allergies: Coded Allergies: CIPROFLOXACIN (Verified Allergy, Unknown, 09/27/17) Objective Last 24 Hour Vital Signs Date Time Temp Pulse Resp B/P (MAP) Pulse Ox O2 Delivery O2 Flow Rate FiO2 06/09/20 12:00 98.1 85 20 107/62 (77) 99 06/09/20 12:00 40 06/09/20 12:00 85 107/62 06/09/20 12:00 Mechanical Ventilator Mechanical Ventilator 06/09/20 11:43 84 06/09/20 10:47 84 14 100 Mechanical Ventilator 30 85 15 30 06/09/20 08:44 69 14 100 06/09/20 08:43 69 14 100 06/09/20 08:00 40 06/09/20 08:00 Mechanical Ventilator Mechanical Ventilator 06/09/20 08:00 98.1 83 16 118/56 (76) 99 06/09/20 08:00 76 06/09/20 07:15 85 16 100 Mechanical Ventilator 30 84 16 30 06/09/20 05:18 82 110/55 06/09/20 04:00 Mechanical Ventilator Mechanical Ventilator 06/09/20 04:00 98.2 80 14 110/62 (78) 100 06/09/20 04:00 40 06/09/20 03:35 61 06/09/20 03:32 74 14 30 06/09/20 00:00 68 104/56 06/09/20 00:00 98.2 68 20 104/56 (72) 100 06/09/20 00:00 Mechanical Ventilator Mechanical Ventilator 06/09/20 00:00 72 06/08/20 23:34 83 14 30 06/08/20 20:00 97.9 99 20 100/50 (67) 100 06/08/20 20:00 Mechanical Ventilator Mechanical Ventilator 06/08/20 20:00 40 06/08/20 19:39 99 20 100 Mechanical Ventilator 30 99 21 30 06/08/20 19:05 99 06/08/20 18:17 94 114/52 06/08/20 16:00 40 06/08/20 16:00 Mechanical Ventilator Mechanical Ventilator 06/08/20 16:00 92 06/08/20 16:00 97.9 92 20 103/51 (68) 100 06/08/20 14:53 89 14 100 Mechanical Ventilator 30 66 14 30 Height (Feet): 5 Height (Inches): 2 Weight (Pounds): 158 HEENT: status post trach Respiratory/Chest: lungs clear Cardiovascular: normal rate, regular rhythm, no gallop/murmur Abdomen: soft, non tender, other - GT Extremities: other - + edema Microbiology Date/Time Source Procedure Growth Status 06/08/20 23:00 Nasopharynx SARS-CoV-2 RdRp Gene Assay - Final Complete Laboratory Tests Test 06/08/20 17:03 06/09/20 04:20 06/09/20 12:18 POC Whole Blood Glucose Pending 89 MG/DL (74-106) White Blood Count 16.0 K/UL (4.8-10.8) H Red Blood Count 3.10 M/UL (4.20-5.40) L Hemoglobin 8.5 G/DL (12.0-16.0) L Hematocrit 25.1 % (37.0-47.0) L Mean Corpuscular Volume 81 FL (80-99) Mean Corpuscular Hemoglobin 27.3 PG (27.0-31.0) Mean Corpuscular Hemoglobin Concent 33.8 G/DL (32.0-36.0) Red Cell Distribution Width 16.1 % (11.6-14.8) H Platelet Count 490 K/UL (150-450) H Mean Platelet Volume 5.0 FL (6.5-10.1) L Neutrophils (%) (Auto) 63.0 % (45.0-75.0) Lymphocytes (%) (Auto) 21.2 % (20.0-45.0) Monocytes (%) (Auto) 13.4 % (1.0-10.0) H Eosinophils (%) (Auto) 0.2 % (0.0-3.0) Basophils (%) (Auto) 2.2 % (0.0-2.0) H Sodium Level 141 MMOL/L (136-145) Potassium Level 3.8 MMOL/L (3.5-5.1) Chloride Level 103 MMOL/L (98-107) Carbon Dioxide Level 31 MMOL/L (21-32) Anion Gap 7 mmol/L (5-15) Blood Urea Nitrogen 44 mg/dL (7-18) H Creatinine 1.3 MG/DL (0.55-1.30) Estimat Glomerular Filtration Rate 47.8 mL/min (>60) Glucose Level 97 MG/DL (74-106) Calcium Level 7.8 MG/DL (8.5-10.1) L Total Bilirubin 0.4 MG/DL (0.2-1.0) Aspartate Amino Transf (AST/SGOT) 104 U/L (15-37) H Alanine Aminotransferase (ALT/SGPT) 89 U/L (12-78) H Alkaline Phosphatase 272 U/L (46-116) H Total Protein 6.5 G/DL (6.4-8.2) Albumin 1.2 G/DL (3.4-5.0) L Globulin 5.3 g/dL Albumin/Globulin Ratio 0.2 (1.0-2.7) L Current Medications Medications (Trade) Dose Ordered Sig/Ghislaine Route PRN Reason Start Time Stop Time Status Last Admin Dose Admin Acetaminophen (Tylenol) 650 mg Q4H PRN NG Temp >100.5 05/25/20 16:15 06/24/20 16:14 06/06/20 12:06 Acetaminophen (Tylenol) 650 mg Q4H PRN ORAL Mild Pain (Pain Scale 1-3) 06/09/20 06:30 06/09/20 15:00 Al Hydroxide/Mg Hydroxide (Mylanta) 15 ml Q1H PRN ORAL gi upset 06/09/20 06:30 06/09/20 15:00 Atropine Sulfate (Atropine) 0.5 mg Q5M PRN IVP bpm less than 45 06/09/20 06:30 06/09/20 15:00 Barium Sulfate (Varibar Honey) 250 ml NOW PRN MC RAD 06/08/20 06:30 06/11/20 06:24 Barium Sulfate (Varibar Borup) 240 ml NOW PRN MC RAD 06/08/20 06:30 06/11/20 06:24 Barium Sulfate (Varibar Pudding) 230 ml NOW PRN MC RAD 06/08/20 06:30 06/11/20 06:24 Barium Sulfate (Varibar Thin Liquid powder) 148 gm NOW PRN MC RAD 06/08/20 06:30 06/11/20 06:24 Dextrose (Dextrose 50%) 25 ml Q30M PRN IV Hypoglycemia 05/22/20 18:30 08/20/20 18:29 Dextrose (Dextrose 50%) 50 ml Q30M PRN IV Hypoglycemia 05/22/20 18:30 08/20/20 18:29 Dextrose/Sodium Chloride 1,000 ml @ 75 mls/hr [id number] IV 06/09/20 08:00 07/09/20 07:59 06/09/20 09:15 Diltiazem HCl (Cardizem Tab) 60 mg EVERY 6 HOURS NG 06/07/20 06:00 07/07/20 05:59 06/09/20 05:18 Diphenhydramine HCl (Benadryl) 25 mg Q15M PRN IVP Itching 06/09/20 06:30 06/09/20 15:00 Fentanyl Citrate (Sublimaze 100 mcg/2 mL) 25 mcg Q10M PRN IV Moderate Pain (Pain Scale 4-6) 06/09/20 06:30 06/09/20 15:00 Insulin Aspart (NovoLOG) Q6HR SUBQ 05/23/20 00:00 08/20/20 20:59 06/02/20 00:00 Ipratropium [place] (Atrovent Inh) 1 puffs QIDRT INH 06/01/20 07:00 06/26/20 09:59 06/09/20 10:47 Labetalol HCl (Normodyne) 5 mg Q10M PRN IV SBP>160 or____/ DBP>90 or 06/09/20 06:30 06/09/20 15:00 Lansoprazole (Prevacid) 30 mg DAILY NG 06/06/20 09:00 07/06/20 08:59 06/09/20 09:11 Loperamide HCl (Imodium) 2 mg Q6H PRN NG Diarrhea 05/26/20 17:45 06/25/20 17:44 06/03/20 15:04 Ondansetron HCl (Zofran) 4 mg Q1H PRN IVP Nausea & Vomiting 06/09/20 06:30 06/09/20 15:00 Camilo Cameron MD Jun 09, 2020 13:42
[2020-06-09 16:00] VITALS: BP 110/63
--- NOTE | 2020-06-09 16:23 | NUR ---
CASE MANAGEMENT: REVIEW SI: COVID-19 . PNA . PEG PLACEMENT 06/09 T 98.1 HR 85 RR 20 BP 107/62 SAT 99% MECH VENT FIO2 40 WBC 16.0 H/H 8.5/25.1 IS: D5 1/2 NS IVF @ 75ML/HR PREVACID NG QD CARDIZEM NG Q6HR STEP DOWN UNIT STATUS DCP: PATIENT IS FROM HOME
--- NOTE | 2020-06-09 17:17 | Endoscopy Procedure Note ---
Endoscopy Procedure Note General Indication for Procedure: dysphagia Procedures Performed: EGD, PEG Operative Findings/Diagnosis: mild erosive gastritis, s/p PEG Anesthesia Anesthesiologist: Denzel strange Anesthesia: MAC Medications Medication Given: see anesthesia record Inserted Devices Implant(s) used?: No GI Core Measures 50 yrs or older w/o bx or poly: Not Applicable 10yrs. F/U recommended: Not Applicable Justine Torres MD Jun 09, 2020 17:17
--- NOTE | 2020-06-09 17:18 | Brief Operative Note ---
Immediate Post Operative Note Operative Note Chief Complaint: dysphagia Pre-op Diagnosis: dysphagia Procedure: EGD PEG Post-op Diagnosis: erosive gastritis Surgeon: dami Anesthesia: MAC Specimen: none Complications: none Condition: stable Fluids: per anesthesia Estimated Blood Loss: none Implant(s) used?: No Justine Torres MD Jun 09, 2020 17:18
[2020-06-09] MEDS ORDERED: Enoxaparin 60mg Inj SUBQ SCH (17:21)
--- NOTE | 2020-06-09 17:30 | NUR ---
NURSE NOTES: Heike (dtr) called and updated her. Pt. remain stable. Pt. watching T.V
--- NOTE | 2020-06-09 19:20 | NUR ---
NURSE NOTES: pt report received from Yvonne SALGADO. pt remains stable. pt is alert and oriented times 2, no acute neuro abnormalities. pt is Trach venenated sating 99% O2 no acute resp distress noted. pt is on telemetry monitor showing NSR, no acute cardiac distress noted. pt bed is low, locked, armed, call light within reach, bed rails up times 3. will follow plan of care.
--- NOTE | 2020-06-09 19:31 | NUR ---
NURSE HAND-OFF REPORT: Important Events on Shift: S/P Peg Placement this morning Patient Status: Stable Diet: NPO Pending Orders: Pending Results/Labs: Pending MD notification: Latest Vital Signs: Temperature 98.2 , Pulse 85 , B/P 110 /63 , Respiratory Rate 16 , O2 SAT 100 , Mechanical Ventilator, O2 Flow Rate 4.0 . Vital Sign Comment: Stable EKG Rhythm: Atrial Fibrillation Rhythm change?: N MD Notified?: N -Dr. Chris MCCRACKEN Response: Order Received& Read Back Latest Lechuga Fall Score: 50 Fall Risk: High Risk Safety Measures: Call light Within Reach, Bed Alarm Zone 1, Side Rails Side Rails x3, Bed position Low and Locked. Fall Precautions: Yellow Socks Yellow Gown Door Sign Patient Fall Education Report given to Jorge Garcia RN.
[2020-06-09 20:00] VITALS: BP 122/65
--- NOTE | 2020-06-09 22:30 | NUR ---
NURSE NOTES: pt turned, repositioned, and cleaned. vital signs assessed and are stable. pt denies pain at this time.
[2020-06-10] VITALS: BP 128/60
--- NOTE | 2020-06-10 00:09 | Cardiology Progress Note ---
Subjective DATE OF SERVICE: Jun 09, 2020 S/P uncomplicated EGD Remains on vent via trach. Monitor: PAFib/flutter; slow rate and pauses noted, but resolved off digoxin. BP range overall stabilized. CXR (06/02) reviewed: bilateral infiltrates with left pl eff'n. ICU logs and cardiology care plan reviewed and updated Objective Last 24 Hour Vital Signs Date Time Temp Pulse Resp B/P (MAP) Pulse Ox O2 Delivery O2 Flow Rate FiO2 06/09/20 23:21 89 127/59 06/09/20 22:47 86 14 30 06/09/20 20:01 83 14 100 Mechanical Ventilator 30 84 14 30 06/09/20 20:00 Mechanical Ventilator Mechanical Ventilator 06/09/20 20:00 82 06/09/20 20:00 40 06/09/20 20:00 98.4 80 16 122/65 (84) 99 06/09/20 17:29 85 110/63 06/09/20 16:00 40 06/09/20 16:00 98.2 85 16 110/63 (79) 100 06/09/20 16:00 Mechanical Ventilator Mechanical Ventilator 06/09/20 15:24 78 06/09/20 15:22 84 15 100 Mechanical Ventilator 30 86 14 30 06/09/20 12:00 98.1 85 20 107/62 (77) 99 06/09/20 12:00 40 06/09/20 12:00 85 107/62 06/09/20 12:00 Mechanical Ventilator Mechanical Ventilator 06/09/20 11:43 84 06/09/20 10:47 84 14 100 Mechanical Ventilator 30 85 15 30 06/09/20 08:44 69 14 100 06/09/20 08:43 69 14 100 06/09/20 08:00 40 06/09/20 08:00 Mechanical Ventilator Mechanical Ventilator 06/09/20 08:00 98.1 83 16 118/56 (76) 99 06/09/20 08:00 76 06/09/20 07:15 85 16 100 Mechanical Ventilator 30 84 16 30 06/09/20 05:18 82 110/55 06/09/20 04:00 Mechanical Ventilator Mechanical Ventilator 06/09/20 04:00 98.2 80 14 110/62 (78) 100 06/09/20 04:00 40 06/09/20 03:35 61 06/09/20 03:32 74 14 30 06/09/20 00:00 68 104/56 06/09/20 00:00 98.2 68 20 104/56 (72) 100 06/09/20 00:00 Mechanical Ventilator Mechanical Ventilator 06/09/20 00:00 72 ROS: unchanged from my eval of 05/03/20 HEENT: Orally intubated, Mechanically Ventilated, Thin secretions ET Tube RHYTHM: Afib LUNGS: no accessory muscle use, expiratory wheezing, diminished breath sounds CARDIAC: normal S1 and S2, no murmur, irregularly irregular ABDOMEN: normal bowel sounds, non tender, soft, no organomegaly EXTREMITIES: no calf tenderness, +1 edema Laboratory Tests Test 06/09/20 04:20 06/09/20 12:18 06/09/20 17:44 06/09/20 23:20 White Blood Count 16.0 K/UL (4.8-10.8) H Red Blood Count 3.10 M/UL (4.20-5.40) L Hemoglobin 8.5 G/DL (12.0-16.0) L Hematocrit 25.1 % (37.0-47.0) L Mean Corpuscular Volume 81 FL (80-99) Mean Corpuscular Hemoglobin 27.3 PG (27.0-31.0) Mean Corpuscular Hemoglobin Concent 33.8 G/DL (32.0-36.0) Red Cell Distribution Width 16.1 % (11.6-14.8) H Platelet Count 490 K/UL (150-450) H Mean Platelet Volume 5.0 FL (6.5-10.1) L Neutrophils (%) (Auto) 63.0 % (45.0-75.0) Lymphocytes (%) (Auto) 21.2 % (20.0-45.0) Monocytes (%) (Auto) 13.4 % (1.0-10.0) H Eosinophils (%) (Auto) 0.2 % (0.0-3.0) Basophils (%) (Auto) 2.2 % (0.0-2.0) H Sodium Level 141 MMOL/L (136-145) Potassium Level 3.8 MMOL/L (3.5-5.1) Chloride Level 103 MMOL/L (98-107) Carbon Dioxide Level 31 MMOL/L (21-32) Anion Gap 7 mmol/L (5-15) Blood Urea Nitrogen 44 mg/dL (7-18) H Creatinine 1.3 MG/DL (0.55-1.30) Estimat Glomerular Filtration Rate 47.8 mL/min (>60) Glucose Level 97 MG/DL (74-106) Calcium Level 7.8 MG/DL (8.5-10.1) L Total Bilirubin 0.4 MG/DL (0.2-1.0) Aspartate Amino Transf (AST/SGOT) 104 U/L (15-37) H Alanine Aminotransferase (ALT/SGPT) 89 U/L (12-78) H Alkaline Phosphatase 272 U/L (46-116) H Total Protein 6.5 G/DL (6.4-8.2) Albumin 1.2 G/DL (3.4-5.0) L Globulin 5.3 g/dL Albumin/Globulin Ratio 0.2 (1.0-2.7) L POC Whole Blood Glucose 89 MG/DL (74-106) 97 MG/DL (74-106) Pending Microbiology Date/Time Source Procedure Growth Status 06/08/20 23:00 Nasopharynx SARS-CoV-2 RdRp Gene Assay - Final Complete Assessment/Plan Assessment/Plan Acute on chronic respiratory acidosis Worsening anemia Acute respiratory failure - s/p trach. Dysphagia - s/p PEG Shock recovered LE edema due to severe pulmonary hypertension and right heart strain COPD exacerb with active bronchospasm Lactic acidosis COVID 19 PNA Acute on chr renal failure Chronic systolic/diastolic CHF Pulmonary fibrosis with chronic hypoxia Paroxysmal AFib with variable rates Hx Multifocal atrial arrhythmias Pulmonary HTN - severe Hx NSVTach Severe protein/calorie malnutrition Acute myocardial ischemia Resolving transaminitis Nutrition by GTube, once cleared by GI. PRBC transfusion for hb below 7gm/dl Vent support with on-going weaning efforts following trach Diltiazem dose to be titrated - based on ventricular rates No resumption of digoxin due to slow heart rates and pauses. Hypotonic IVF until free water deficit corrected Full anticoagulation for cardioembolic prophyl. Monitor liver fxn. Simone Perez MD Jun 10, 2020 00:09
[2020-06-10 04:00] VITALS: BP 136/64
--- NOTE | 2020-06-10 04:21 | NUR ---
NURSE NOTES: pts urine has been emptied from [place] drainage bag. 2000 cc of normal yellow urine noted. pts rectal tube drainage bag has been replaced. 200cc of light brown watery stool noted.
[2020-06-10 04:45] LABS: BASOPHILS % (AUTO) 2.2 % (0.0-2.0); EOSINOPHILS % (AUTO) 0.3 % (0.0-3.0); HEMATOCRIT 26.4 % (37.0-47.0); HEMOGLOBIN 8.8 G/DL (12.0-16.0); LYMPHOCYTES % (AUTO) 20.4 % (20.0-45.0); MEAN CORPUSCULAR VOLUME 81 FL (80-99); MONOCYTES % (AUTO) 12.5 % (1.0-10.0); NEUTROPHILS % (AUTO) 64.6 % (45.0-75.0); PLATELET COUNT 505 K/UL (150-450); RED BLOOD COUNT 3.28 M/UL (4.20-5.40); RED CELL DISTRIBUTION WIDTH 15.9 % (11.6-14.8); WHITE BLOOD COUNT 15.5 K/UL (4.8-10.8)
[2020-06-10] MEDS: NovoLOG Insulin Flexpen SUBQ SCH ×4 (05:28→23:02)
[2020-06-10] MEDS: dilTIAZem HCl 60mg tab NG SCH ×4 (05:28→23:12)
[2020-06-10 05:41] LABS: ALBUMIN 1.2 G/DL (3.4-5.0); ALBUMIN/GLOBULIN RATIO 0.2 (1.0-2.7); BILIRUBIN,TOTAL 0.4 MG/DL (0.2-1.0); CALCIUM 7.7 MG/DL (8.5-10.1); CREATININE 1.2 MG/DL (0.55-1.30); POTASSIUM 3.3 MMOL/L (3.5-5.1)
--- NOTE | 2020-06-10 07:10 | General Progress Note ---
Subjective ROS Limited/Unobtainable: No Constitutional: Reports: malaise, weakness HEENT: Reports: no symptoms Cardiovascular: Reports: no symptoms Respiratory: Reports: shortness of breath, sputum Gastrointestinal/Abdominal: Reports: difficulty swallowing Genitourinary: Reports: no symptoms Neurologic/Psychiatric: Reports: no symptoms Endocrine: Reports: no symptoms Hematologic/Lymphatic: Reports: no symptoms Allergies: Coded Allergies: CIPROFLOXACIN (Verified Allergy, Unknown, 09/27/17) All Systems: reviewed and negative except above Subjective s/p gt. tolerated well. on the vent. no fevers. on ivf currently. labs reviewed. Objective Last 24 Hour Vital Signs Date Time Temp Pulse Resp B/P (MAP) Pulse Ox O2 Delivery O2 Flow Rate FiO2 06/10/20 05:28 83 123/86 06/10/20 04:00 98.1 93 17 136/64 (88) 99 06/10/20 04:00 Mechanical Ventilator Mechanical Ventilator 06/10/20 04:00 40 06/10/20 04:00 80 06/10/20 03:03 85 14 30 06/10/20 00:00 40 06/10/20 00:00 Mechanical Ventilator Mechanical Ventilator 06/10/20 00:00 86 06/10/20 00:00 98.2 90 16 128/60 (82) 98 06/09/20 23:21 89 127/59 06/09/20 22:47 86 14 30 06/09/20 20:01 83 14 100 Mechanical Ventilator 30 84 14 30 06/09/20 20:00 Mechanical Ventilator Mechanical Ventilator 06/09/20 20:00 82 06/09/20 20:00 40 06/09/20 20:00 98.4 80 16 122/65 (84) 99 06/09/20 17:29 85 110/63 06/09/20 16:00 40 06/09/20 16:00 98.2 85 16 110/63 (79) 100 06/09/20 16:00 Mechanical Ventilator Mechanical Ventilator 06/09/20 15:24 78 06/09/20 15:22 84 15 100 Mechanical Ventilator 30 86 14 30 06/09/20 12:00 98.1 85 20 107/62 (77) 99 06/09/20 12:00 40 06/09/20 12:00 85 107/62 06/09/20 12:00 Mechanical Ventilator Mechanical Ventilator 06/09/20 11:43 84 06/09/20 10:47 84 14 100 Mechanical Ventilator 30 85 15 30 06/09/20 08:44 69 14 100 06/09/20 08:43 69 14 100 06/09/20 08:00 40 06/09/20 08:00 Mechanical Ventilator Mechanical Ventilator 06/09/20 08:00 98.1 83 16 118/56 (76) 99 06/09/20 08:00 76 06/09/20 07:15 85 16 100 Mechanical Ventilator 30 84 16 30 Intake and Output 06/09/20 06/10/20 19:00 07:00 Intake Total 75 ml 773.75 ml Output Total 1000 ml 2200 ml Balance -925 ml -1426.25 ml IV Total 75 ml 773.75 ml Output Urine Total 800 ml 2000 ml Stool Total 200 ml 200 ml Laboratory Tests 06/09/20 12:18: POC Whole Blood Glucose 89 06/09/20 17:44: POC Whole Blood Glucose 97 06/09/20 23:20: POC Whole Blood Glucose [Pending] 06/10/20 03:30: White Blood Count 15.5H, Red Blood Count 3.28L, Hemoglobin 8.8L, Hematocrit 26.4L, Mean Corpuscular Volume 81, Mean Corpuscular Hemoglobin 26.9L, Mean Corpuscular Hemoglobin Concent 33.4, Red Cell Distribution Width 15.9H, Platelet Count 505H, Mean Platelet Volume 5.0L, Neutrophils (%) (Auto) 64.6, Lymphocytes (%) (Auto) 20.4, Monocytes (%) (Auto) 12.5H, Eosinophils (%) (Auto) 0.3, Basophils (%) (Auto) 2.2H, Erythrocyte Sedimentation Rate 125H, Sodium Level 139, Potassium Level 3.3L, Chloride Level 103, Carbon Dioxide Level 30, Anion Gap 6, Blood Urea Nitrogen 35H, Creatinine 1.2, Estimat Glomerular Filtration Rate 52.5, Glucose Level 95, Calcium Level 7.7L, Total Bilirubin 0.4, Aspartate Amino Transf (AST/SGOT) 64H, Alanine Aminotransferase (ALT/SGPT) 60, Alkaline Phosphatase 236H, C-Reactive Protein, Quantitative 8.2H, Total Protein 6.3L, Albumin 1.2L, Globulin 5.1, Albumin/Globulin Ratio 0.2L, Amylase Level 75, Lipase 61L 06/10/20 05:27: POC Whole Blood Glucose [Pending] Height (Feet): 5 Height (Inches): 2 Weight (Pounds): 158 Objective General Appearance: WD/WN, no apparent distress, alert. orally intubated EENT: PERRL/EOMI Neck: non-tender, normal alignment, supple Cardiovascular: normal rate, regular rhythm Respiratory/Chest: chest wall non-tender, lungs clear, normal breath sounds, no respiratory distress, no accessory muscle use Abdomen: normal bowel sounds, non tender, soft, no organomegaly Edema: no edema noted Arm (L), no edema noted Arm (R) Neurologic: presentation designer II-XII grossly normal, alert, oriented x 3, responsive Skin: normal pigmentation Lymphatic: normal anterior cervical (L), normal anterior cervical (R) Assessment/Plan Problem List: (1) Pulmonary fibrosis ICD Codes: J84.10 - Pulmonary fibrosis, unspecified SNOMED: 07766992 (2) History of asthma ICD Codes: Z87.09 - Personal history of other diseases of the respiratory system SNOMED: 943939027 (3) Asthma ICD Codes: J45.909 - Unspecified asthma, uncomplicated SNOMED: 673885048 (4) NSTEMI (non-ST elevated myocardial infarction) ICD Codes: I21.4 - Non-ST elevation (NSTEMI) myocardial infarction SNOMED: 426692452 (5) Elevated troponin ICD Codes: R79.89 - Other specified abnormal findings of blood chemistry SNOMED: 935170101, 451022870, 992873782 (6) COPD (chronic obstructive pulmonary disease) ICD Codes: J44.9 - Chronic obstructive pulmonary disease, unspecified SNOMED: 68129978 (7) Atrial fibrillation with RVR ICD Codes: I48.91 - Unspecified atrial fibrillation SNOMED: 586537798992416 (8) Community acquired pneumonia ICD Codes: J18.9 - Pneumonia, unspecified organism SNOMED: 359359855 Status: stable Assessment/Plan: vent support resp rx and suctioning as needed GT feeds when cleared by Gi off abx turn q2 skin care imodium for diarrhea dvt/stress ulcer prophylaxis replace k remains gaurded monitor wbc DTR requesting LTAC Bradford Linn MD Jun 10, 2020 07:10
--- NOTE | 2020-06-10 07:16 | NUR ---
NURSE HAND-OFF REPORT: Important Events on Shift:[MONITORING BS] Patient Status: [STABLE] Diet: [HELD PER SP PEG PLACEMENT, on D5 1/2NS fluids. ] Pending Orders: [TUBE FEEDING] Pending Results/Labs:[NA] Pending MD notification:[NA] Latest Vital Signs: Temperature 98.1 , Pulse 83 , B/P 123 /86 , Respiratory Rate 17 , O2 SAT 99 , Mechanical Ventilator, O2 Flow Rate 4.0 . Vital Sign Comment: [STABLE] EKG Rhythm: Sinus Rhythm Rhythm change?: N Notified?: N -Dr. Chris MCCRACKEN Response: Order Received& Read Back Latest Lechuga Fall Score: 50 Fall Risk: High Risk Safety Measures: Call light Within Reach, Bed Alarm Zone 1, Side Rails Side Rails x3, Bed position Low and Locked. Fall Precautions: Yellow Socks Yellow Gown Door Sign Patient Fall Education Report given to [TERRI SALGADO].
--- NOTE | 2020-06-10 07:30 | NUR ---
NURSE NOTES: Patient received lying asleep, arousable to light touch, able to voice out very simple needs, non-vocal. On trach to vent, settings AC -14, TV -500, PEEP- 5, oxygen saturation at 100%, no acute distress. On NPO status, S/P new PEG placement, pending tube feeding order. Right hand IV running IVF D5 1/2 NS at 75 ml/hr, infusing well. [place] catheter intact and draining to yellow urine, sediments noted. Rectal tube intact and draining, brown liquid stool. Upper and lower extremity edema +2-3 noted. Extremities elevated. Sinus Rhythm on the monitor. Safety measures implemented. Will continue to monitor.
[2020-06-10 08:00] VITALS: BP 122/59
--- NOTE | 2020-06-10 09:00 | NUR ---
NURSE NOTES: Oral care provided. Patient noted with large amount of drool. Tracheal suctioning provided, small amount of sputum noted. Morning medications administered via g-tube.
[2020-06-10] MEDS: Ipratropium Bromide Inhaler INH SCH ×4 (09:33→19:04)
--- NOTE | 2020-06-10 10:20 | Pulmonology Progress Note ---
Subjective ROS Limited/Unobtainable: Yes Constitutional: Reports: no symptoms Musculoskeletal: Denies: pain Allergies: Coded Allergies: CIPROFLOXACIN (Verified Allergy, Unknown, 09/27/17) All Systems: reviewed and negative except above Subjective on vent- s/p GT comfortable COVID- reduced LOC Objective Last 24 Hour Vital Signs Date Time Temp Pulse Resp B/P (MAP) Pulse Ox O2 Delivery O2 Flow Rate FiO2 06/10/20 08:00 97.5 88 14 122/59 (80) 100 06/10/20 08:00 40 06/10/20 05:28 83 123/86 06/10/20 04:00 98.1 93 17 136/64 (88) 99 06/10/20 04:00 Mechanical Ventilator Mechanical Ventilator 06/10/20 04:00 40 06/10/20 04:00 80 06/10/20 03:03 85 14 30 06/10/20 00:00 40 06/10/20 00:00 Mechanical Ventilator Mechanical Ventilator 06/10/20 00:00 86 06/10/20 00:00 98.2 90 16 128/60 (82) 98 06/09/20 23:21 89 127/59 06/09/20 22:47 86 14 30 06/09/20 20:01 83 14 100 Mechanical Ventilator 30 84 14 30 06/09/20 20:00 Mechanical Ventilator Mechanical Ventilator 06/09/20 20:00 82 06/09/20 20:00 40 06/09/20 20:00 98.4 80 16 122/65 (84) 99 06/09/20 17:29 85 110/63 06/09/20 16:00 40 06/09/20 16:00 98.2 85 16 110/63 (79) 100 06/09/20 16:00 Mechanical Ventilator Mechanical Ventilator 06/09/20 15:24 78 06/09/20 15:22 84 15 100 Mechanical Ventilator 30 86 14 30 06/09/20 12:00 98.1 85 20 107/62 (77) 99 06/09/20 12:00 40 06/09/20 12:00 85 107/62 06/09/20 12:00 Mechanical Ventilator Mechanical Ventilator 06/09/20 11:43 84 06/09/20 10:47 84 14 100 Mechanical Ventilator 30 85 15 30 Intake and Output 06/09/20 06/10/20 19:00 07:00 Intake Total 75 ml 773.75 ml Output Total 1000 ml 2200 ml Balance -925 ml -1426.25 ml IV Total 75 ml 773.75 ml Output Urine Total 800 ml 2000 ml Stool Total 200 ml 200 ml Objective deferred due to COVID Microbiology Date/Time Source Procedure Growth Status 06/08/20 23:00 Nasopharynx SARS-CoV-2 RdRp Gene Assay - Final Complete Laboratory Tests 06/09/20 12:18: POC Whole Blood Glucose 89 06/09/20 17:44: POC Whole Blood Glucose 97 06/09/20 23:20: POC Whole Blood Glucose [Pending] 06/10/20 03:30: White Blood Count 15.5H, Red Blood Count 3.28L, Hemoglobin 8.8L, Hematocrit 26.4L, Mean Corpuscular Volume 81, Mean Corpuscular Hemoglobin 26.9L, Mean Corpuscular Hemoglobin Concent 33.4, Red Cell Distribution Width 15.9H, Platelet Count 505H, Mean Platelet Volume 5.0L, Neutrophils (%) (Auto) 64.6, Lymphocytes (%) (Auto) 20.4, Monocytes (%) (Auto) 12.5H, Eosinophils (%) (Auto) 0.3, Basophils (%) (Auto) 2.2H, Erythrocyte Sedimentation Rate 125H, Sodium Level 139, Potassium Level 3.3L, Chloride Level 103, Carbon Dioxide Level 30, Anion Gap 6, Blood Urea Nitrogen 35H, Creatinine 1.2, Estimat Glomerular Filtration R ate 52.5, Glucose Level 95, Calcium Level 7.7L, Total Bilirubin 0.4, Aspartate Amino Transf (AST/SGOT) 64H, Alanine Aminotransferase (ALT/SGPT) 60, Alkaline Phosphatase 236H, C-Reactive Protein, Quantitative 8.2H, Total Protein 6.3L, Albumin 1.2L, Globulin 5.1, Albumin/Globulin Ratio 0.2L, Amylase Level 75, Lipase 61L 06/10/20 05:27: POC Whole Blood Glucose [Pending] Current Medications Medications (Trade) Dose Ordered Sig/Ghislaine Route PRN Reason Start Time Stop Time Status Last Admin Dose Admin Acetaminophen (Tylenol) 650 mg Q4H PRN NG Temp >100.5 05/25/20 16:15 06/24/20 16:14 06/06/20 12:06 Barium Sulfate (Varibar Honey) 250 ml NOW PRN MC RAD 06/08/20 06:30 06/11/20 06:24 Barium Sulfate (Varibar [place]) 240 ml NOW PRN MC RAD 06/08/20 06:30 06/11/20 06:24 Barium Sulfate (Varibar Pudding) 230 ml NOW PRN RAD 06/08/20 06:30 06/11/20 06:24 Barium Sulfate (Varibar Thin Liquid powder) 148 gm NOW PRN RAD 06/08/20 06:30 06/11/20 06:24 Dextrose (Dextrose 50%) 25 ml Q30M PRN IV Hypoglycemia 05/22/20 18:30 08/20/20 18:29 Dextrose (Dextrose 50%) 50 ml Q30M PRN IV Hypoglycemia 05/22/20 18:30 08/20/20 18:29 Dextrose/Sodium Chloride 1,000 ml @ 75 mls/hr [id number] IV 06/09/20 08:00 07/09/20 07:59 06/09/20 20:41 Diltiazem HCl (Cardizem Tab) 60 mg EVERY 6 HOURS NG 06/07/20 06:00 07/07/20 05:59 06/10/20 05:28 Enoxaparin Sodium (Lovenox) 60 mg BEFORE DINNER SUBQ 06/09/20 17:21 09/07/20 17:20 06/09/20 17:40 Insulin Aspart (NovoLOG) Q6HR SUBQ 05/23/20 00:00 08/20/20 20:59 06/02/20 00:00 Ipratropium [place] (Atrovent Inh) 1 puffs QIDRT INH 06/01/20 07:00 06/26/20 09:59 06/10/20 09:33 Lansoprazole (Prevacid) 30 mg DAILY NG 06/06/20 09:00 07/06/20 08:59 06/10/20 08:30 Loperamide HCl (Imodium) 2 mg Q6H PRN NG Diarrhea 05/26/20 17:45 06/25/20 17:44 06/03/20 15:04 Assessment/Plan Assessment/Plan Impression: COVID-19 Chronic obstructive pulmonary disease/Asthma Community acquired pneumonia Atrial fibrillation with RVR Elevated troponin Congestive heart Failure sinus tachycardia Hypoxemia transaminitis with gallstones acute on chronic renal failure acute respiratory failure hypotension tachycardia transaminitis MODS anemia NSVT s/p GT Plan ID noted GT care monitor vitals-better Vent support/and trach care feeds per dietary on lovenox-->eliquis Bronchodilator therapy GT needed Monitor labs/ renal follow up - renal function still reduced- Covid 19 negative nutrition as able with very low albumin levels reviewed care and optimize position change and monitor skin surgical follow up noted monitor protein levels and adjust will need placement when gt placed impression, plan, and exam edited and reviewed in detail care discussed with Aaron Bales MD Jun 10, 2020 10:20
--- NOTE | 2020-06-10 10:28 | NUR ---
DISCHARGE PLANNING*-* PATIENT HAS BEEN REFERRED TO: [facility] P: [phone]
--- NOTE | 2020-06-10 11:05 | Infectious Diseases Prog Note ---
Assessment/Plan Assessment/Plan antibiotics : none A 1. COVID 19 pneumonia s/p ivermectin 9.7.20 2. COPD 3. CHF 4. asthma 5. respiratory failure s/p tracheostomy 6. leucocytosis resolved 7. pseudomonas pneumonia s/p rx P 1. continue off antibiotics Subjective ROS Limited/Unobtainable: Yes Allergies: Coded Allergies: CIPROFLOXACIN (Verified Allergy, Unknown, 09/27/17) Objective Last 24 Hour Vital Signs Date Time Temp Pulse Resp B/P (MAP) Pulse Ox O2 Delivery O2 Flow Rate FiO2 06/10/20 08:00 Mechanical Ventilator Mechanical Ventilator 06/10/20 08:00 83 06/10/20 08:00 97.5 88 14 122/59 (80) 100 06/10/20 08:00 40 06/10/20 05:28 83 123/86 06/10/20 04:00 98.1 93 17 136/64 (88) 99 06/10/20 04:00 Mechanical Ventilator Mechanical Ventilator 06/10/20 04:00 40 06/10/20 04:00 80 06/10/20 03:03 85 14 30 06/10/20 00:00 40 06/10/20 00:00 Mechanical Ventilator Mechanical Ventilator 06/10/20 00:00 86 06/10/20 00:00 98.2 90 16 128/60 (82) 98 06/09/20 23:21 89 127/59 06/09/20 22:47 86 14 30 06/09/20 20:01 83 14 100 Mechanical Ventilator 30 84 14 30 06/09/20 20:00 Mechanical Ventilator Mechanical Ventilator 06/09/20 20:00 82 06/09/20 20:00 40 06/09/20 20:00 98.4 80 16 122/65 (84) 99 06/09/20 17:29 85 110/63 06/09/20 16:00 40 06/09/20 16:00 98.2 85 16 110/63 (79) 100 06/09/20 16:00 Mechanical Ventilator Mechanical Ventilator 06/09/20 15:24 78 06/09/20 15:22 84 15 100 Mechanical Ventilator 30 86 14 30 06/09/20 12:00 98.1 85 20 107/62 (77) 99 06/09/20 12:00 40 06/09/20 12:00 85 107/62 06/09/20 12:00 Mechanical Ventilator Mechanical Ventilator 06/09/20 11:43 84 Height (Feet): 5 Height (Inches): 2 Weight (Pounds): 158 HEENT: status post trach Respiratory/Chest: lungs clear Cardiovascular: normal rate, regular rhythm, no gallop/murmur Abdomen: soft, non tender, other - GT Extremities: other - + edema Microbiology Date/Time Source Procedure Growth Status 06/08/20 23:00 Nasopharynx SARS-CoV-2 RdRp Gene Assay - Final Complete Laboratory Tests Test 06/09/20 12:18 06/09/20 17:44 06/09/20 23:20 06/10/20 03:30 POC Whole Blood Glucose 89 MG/DL (74-106) 97 MG/DL (74-106) Pending White Blood Count 15.5 K/UL (4.8-10.8) H Red Blood Count 3.28 M/UL (4.20-5.40) L Hemoglobin 8.8 G/DL (12.0-16.0) L Hematocrit 26.4 % (37.0-47.0) L Mean Corpuscular Volume 81 FL (80-99) Mean Corpuscular Hemoglobin 26.9 PG (27.0-31.0) L Mean Corpuscular Hemoglobin Concent 33.4 G/DL (32.0-36.0) Red Cell Distribution Width 15.9 % (11.6-14.8) H Platelet Count 505 K/UL (150-450) H Mean Platelet Volume 5.0 FL (6.5-10.1) L Neutrophils (%) (Auto) 64.6 % (45.0-75.0) Lymphocytes (%) (Auto) 20.4 % (20.0-45.0) Monocytes (%) (Auto) 12.5 % (1.0-10.0) H Eosinophils (%) (Auto) 0.3 % (0.0-3.0) Basophils (%) (Auto) 2.2 % (0.0-2.0) H Erythrocyte Sedimentation Rate 125 MM/HR (0-30) H Sodium Level 139 MMOL/L (136-145) Potassium Level 3.3 MMOL/L (3.5-5.1) L Chloride Level 103 MMOL/L (98-107) Carbon Dioxide Level 30 MMOL/L (21-32) Anion Gap 6 mmol/L (5-15) Blood Urea Nitrogen 35 mg/dL (7-18) H Creatinine 1.2 MG/DL (0.55-1.30) Estimat Glomerular Filtration Rate 52.5 mL/min (>60) Glucose Level 95 MG/DL (74-106) Calcium Level 7.7 MG/DL (8.5-10.1) L Total Bilirubin 0.4 MG/DL (0.2-1.0) Aspartate Amino Transf (AST/SGOT) 64 U/L (15-37) H Alanine Aminotransferase (ALT/SGPT) 60 U/L (12-78) Alkaline Phosphatase 236 U/L (46-116) H C-Reactive Protein, Quantitative 8.2 mg/dL (0.00-0.90) H Total Protein 6.3 G/DL (6.4-8.2) L Albumin 1.2 G/DL (3.4-5.0) L Globulin 5.1 g/dL Albumin/Globulin Ratio 0.2 (1.0-2.7) L Amylase Level 75 U/L (25-115) Lipase 61 U/L (73-393) L Test 06/10/20 05:27 POC Whole Blood Glucose Pending Current Medications Medications (Trade) Dose Ordered Sig/Ghislaine Route PRN Reason Start Time Stop Time Status Last Admin Dose Admin Acetaminophen (Tylenol) 650 mg Q4H PRN NG Temp >100.5 05/25/20 16:15 06/24/20 16:14 06/06/20 12:06 Apixaban (Eliquis) 5 mg BID ORAL 06/10/20 18:00 09/08/20 17:59 Barium Sulfate (Varibar Honey) 250 ml NOW PRN MC RAD 06/08/20 06:30 06/11/20 06:24 Barium Sulfate (Varibar [place]) 240 ml NOW PRN MC RAD 06/08/20 06:30 06/11/20 06:24 Barium Sulfate (Varibar Pudding) 230 ml NOW PRN MC RAD 06/08/20 06:30 06/11/20 06:24 Barium Sulfate (Varibar Thin Liquid powder) 148 gm NOW PRN MC RAD 06/08/20 06:30 06/11/20 06:24 Dextrose (Dextrose 50%) 25 ml Q30M PRN IV Hypoglycemia 05/22/20 18:30 08/20/20 18:29 Dextrose (Dextrose 50%) 50 ml Q30M PRN IV Hypoglycemia 05/22/20 18:30 08/20/20 18:29 Dextrose/Sodium Chloride 1,000 ml @ 75 mls/hr [id number] IV 06/09/20 08:00 07/09/20 07:59 06/09/20 20:41 Diltiazem HCl (Cardizem Tab) 60 mg EVERY 6 HOURS NG 06/07/20 06:00 07/07/20 05:59 06/10/20 05:28 Insulin Aspart (NovoLOG) Q6HR SUBQ 05/23/20 00:00 08/20/20 20:59 06/02/20 00:00 Ipratropium [place] (Atrovent Inh) 1 puffs QIDRT INH 06/01/20 07:00 06/26/20 09:59 06/10/20 09:33 Lansoprazole (Prevacid) 30 mg DAILY NG 06/06/20 09:00 07/06/20 08:59 06/10/20 08:30 Loperamide HCl (Imodium) 2 mg Q6H PRN NG Diarrhea 05/26/20 17:45 06/25/20 17:44 06/03/20 15:04 Camilo Cameron MD Jun 10, 2020 11:05
[2020-06-10] MEDS: D5 1/2NS 1,000 ML IV SCH ×2 (11:31→23:12)
[2020-06-10 12:00] VITALS: BP 137/63
--- NOTE | 2020-06-10 12:00 | NUR ---
NURSE NOTES: Patient suctioned, oral care provided. Repositioned patient with all extremities elevated. Denies pain at this time.
--- NOTE | 2020-06-10 13:12 | NUR ---
CASE MANAGEMENT:REVIEW 06/10/20 SI: COVID PNA NEW TRACH AND GTUBE 97.3 85 15 137/63 100% ON VEBNT SUPPORT W/40% FIO2 WBC+15.5 H/H-8.8/26.4 K-3.3 BUN+35 IS: SHWETHA GT BID IVF@75/HR CARDIREGINOM GT Q6HRS DUONEB HHN Q : STEP DOWN UNIT DCP: NEEDS PLACEMENT
[2020-06-10] MEDS ORDERED: D5 1/2NS 1000ml IV ONE ×2 (13:52→13:54)
[2020-06-10] MEDS ORDERED: NS 275ml ONE (13:54)
[2020-06-10] MEDS ORDERED: Tubing IV Secondary IV ONE (14:08)
--- NOTE | 2020-06-10 14:20 | NUR ---
NURSE NOTES: Spoke to patient's daughter even after daughter spoke to [employer]. Update provided. Patient remains stable at this time.
[2020-06-10 16:00] VITALS: BP 105/40
--- NOTE | 2020-06-10 16:10 | NUR ---
DISCHARGE PLANNING PATIENT'S DAUGHTER IS REFUSING [facility]. 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 CLINICALS FAXED TO [facility], WHO IS REQUESTING A CURRENT COVID TEST
--- NOTE | 2020-06-10 17:02 | Surgery Progress Note ---
Surgery Progress Note Subjective Procedure Performed trach Additional Comments stable comfortable no n/v Objective Last 24 Hour Vital Signs Date Time Temp Pulse Resp B/P (MAP) Pulse Ox O2 Delivery O2 Flow Rate FiO2 06/10/20 16:00 40 06/10/20 16:00 Mechanical Ventilator Mechanical Ventilator 06/10/20 15:13 91 06/10/20 12:24 85 137/63 06/10/20 12:00 Mechanical Ventilator Mechanical Ventilator 06/10/20 12:00 40 06/10/20 12:00 97.3 85 15 137/63 (87) 100 06/10/20 12:00 85 06/10/20 11:53 89 16 100 Mechanical Ventilator 30 92 16 30 06/10/20 08:00 Mechanical Ventilator Mechanical Ventilator 06/10/20 08:00 83 06/10/20 08:00 97.5 88 14 122/59 (80) 100 06/10/20 08:00 40 06/10/20 07:15 89 16 100 Mechanical Ventilator 30 92 16 30 06/10/20 05:28 83 123/86 06/10/20 04:00 98.1 93 17 136/64 (88) 99 06/10/20 04:00 Mechanical Ventilator Mechanical Ventilator 06/10/20 04:00 40 06/10/20 04:00 80 06/10/20 03:03 85 14 30 06/10/20 00:00 40 06/10/20 00:00 Mechanical Ventilator Mechanical Ventilator 06/10/20 00:00 86 06/10/20 00:00 98.2 90 16 128/60 (82) 98 06/09/20 23:21 89 127/59 06/09/20 22:47 86 14 30 06/09/20 20:01 83 14 100 Mechanical Ventilator 30 84 14 30 06/09/20 20:00 Mechanical Ventilator Mechanical Ventilator 06/09/20 20:00 82 06/09/20 20:00 40 06/09/20 20:00 98.4 80 16 122/65 (84) 99 06/09/20 17:29 85 110/63 I&O Intake and Output 06/09/20 06/10/20 19:00 07:00 Intake Total 75 ml 848.75 ml Output Total 1000 ml 2200 ml Balance -925 ml -1351.25 ml IV Total 75 ml 848.75 ml Output Urine Total 800 ml 2000 ml Stool Total 200 ml 200 ml Dressing: other Wound: other Cardiovascular: RSR Respiratory: decreased breath sounds Abdomen: soft, non-tender, present bowel sounds Extremities: no tenderness, no cyanosis Laboratory Tests Test 06/09/20 17:44 06/09/20 23:20 06/10/20 03:30 06/10/20 05:27 POC Whole Blood Glucose 97 MG/DL (74-106) Pending Pending White Blood Count 15.5 K/UL (4.8-10.8) H Red Blood Count 3.28 M/UL (4.20-5.40) L Hemoglobin 8.8 G/DL (12.0-16.0) L Hematocrit 26.4 % (37.0-47.0) L Mean Corpuscular Volume 81 FL (80-99) Mean Corpuscular Hemoglobin 26.9 PG (27.0-31.0) L Mean Corpuscular Hemoglobin Concent 33.4 G/DL (32.0-36.0) Red Cell Distribution Width 15.9 % (11.6-14.8) H Platelet Count 505 K/UL (150-450) H Mean Platelet Volume 5.0 FL (6.5-10.1) L Neutrophils (%) (Auto) 64.6 % (45.0-75.0) Lymphocytes (%) (Auto) 20.4 % (20.0-45.0) Monocytes (%) (Auto) 12.5 % (1.0-10.0) H Eosinophils (%) (Auto) 0.3 % (0.0-3.0) Basophils (%) (Auto) 2.2 % (0.0-2.0) H Erythrocyte Sedimentation Rate 125 MM/HR (0-30) H Sodium Level 139 MMOL/L (136-145) Potassium Level 3.3 MMOL/L (3.5-5.1) L Chloride Level 103 MMOL/L (98-107) Carbon Dioxide Level 30 MMOL/L (21-32) Anion Gap 6 mmol/L (5-15) Blood Urea Nitrogen 35 mg/dL (7-18) H Creatinine 1.2 MG/DL (0.55-1.30) Estimat Glomerular Filtration Rate 52.5 mL/min (>60) Glucose Level 95 MG/DL (74-106) Calcium Level 7.7 MG/DL (8.5-10.1) L Total Bilirubin 0.4 MG/DL (0.2-1.0) Aspartate Amino Transf (AST/SGOT) 64 U/L (15-37) H Alanine Aminotransferase (ALT/SGPT) 60 U/L (12-78) Alkaline Phosphatase 236 U/L (46-116) H C-Reactive Protein, Quantitative 8.2 mg/dL (0.00-0.90) H Total Protein 6.3 G/DL (6.4-8.2) L Albumin 1.2 G/DL (3.4-5.0) L Globulin 5.1 g/dL Albumin/Globulin Ratio 0.2 (1.0-2.7) L Amylase Level 75 U/L (25-115) Lipase 61 U/L (73-393) L Test 06/10/20 12:20 POC Whole Blood Glucose 90 MG/DL (74-106) Plan Problems: (1) Elevated troponin (2) Atrial fibrillation with RVR (3) COVID-19 Assessment & Plan: ++ as per pulm and ID trach DAILY ESTIMATED NEEDS: Needs based on Critical Care, ARF/ 56kg abw 22-28 kcals/kg 1384-4315 total kcals 0.8-1.5 (increase w/ renal improvement) g protein/kg 45-84 g total protein 25-30 mL/kg 0740-0351 total fluid mLs NUTRITION DIAGNOSIS: * Altered nutrition related lab values r/t clinical status as evidenced by elev BUN(82), creat(3.8) trending up, critical ABG (low pH, elev CO2)-> now improved. * Swallowing difficulty R/T respiratory status as evidenced by s/p oral intubation, on OGT feeds. 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: STROKE PROGRAM COORDINATOR eval post extubation ENTERAL NUTRITION RECOMMENDATIONS: Nepro @ 35ml/hr x 24 hrs to provide 840ml, 1512kcal, 68g prot, 610ml free water * W/ worsening renal fxn, rec to continue Nepro * As tolerated, increase goal rate to 35ml/hr x 24 hrs to meet 100% est kcal/prot needs ADDITIONAL RECOMMENDATIONS: 1) Calibrated bedscale wt 2) Monitor renal fxn and lytes, need to continue Nepro Creat trending up 3) Rec niss w/ solumedrol (4) Community acquired pneumonia (5) COPD (chronic obstructive pulmonary disease) (6) Pulmonary fibrosis (7) Asthma (8) History of asthma (9) NSTEMI (non-ST elevated myocardial infarction) (10) Moderate to severe pulmonary hypertension (11) Asthma exacerbation (12) Abnormal LFTs Assessment & Plan: afebrile, HD stable labs noted lft's elevated US reviewed exam benign gb likely reactive from underlying pathology unlikely cholecystitis clinically fluid overload trend labs will monitor exam clinically covid + prognosis guarded cxr reviewed on abx worsening plan repeat US - noted cannot get hida given covid labs noted worsening leukocytosis Gallbladder demonstrates wall thickening and wall edema, gallbladder wall measuring up to 6 mm thick. There are gallstones. Sonographic Escoto's sign is negative. Common bile duct measures 3 mm in diameter. No intrahepatic biliary ductal dilatation. Liver demonstrates normal echogenicity, no focal abnormality. Portal vein and hepatic veins are patent. Pancreas is unremarkable. Spleen is unremarkable. Left kidney measures 9.2 cm in length. Right kidney measures 9.9 cm length. Both kidneys demonstrate normal echogenicity. There is no hydronephrosis. Small cyst is seen in the right kidney. . Abdominal aorta was not imaged . There is trace ascites. There is a small right pleural effusion incidentally noted Impression: Small right pleural effusion. Trace ascites Cholelithiasis. Gallbladder wall thickening may be related to hemodynamic factors causing the pleural fluid and ascites, but could also indicate acute cholecystitis. Consider nuclear medicine hepatobiliary scan if there is high clinical suspicion. Negative for dilated bile ducts Small right renal cyst incidentally noted (13) Acute respiratory failure with hypoxia Assessment & Plan: s/p trach discussed with family comfortable weaning CollinsevaQuentin Jun 10, 2020 17:02
--- NOTE | 2020-06-10 17:26 | NUR ---
*-*DISCHARGE PLANNING*-* PATIENT HAS BEEN ACCEPTED TO: [facility] P: [phone] ROOM# 9.A SKILLED
[2020-06-10] MEDS ORDERED: Eliquis 5mg tablet ORAL SCH (18:00)
--- NOTE | 2020-06-10 18:00 | NUR ---
NURSE NOTES: Gastrostomy tube dressing changed, dried blood noted. Oral care provided. Patient repositioned comfortably.
--- NOTE | 2020-06-10 19:02 | NUR ---
NURSE HAND-OFF REPORT: Important Events on Shift: Patient Status: stable Diet: tube feeding Pending Orders: none Pending Results/Labs: none Pending MD notification:n/a Latest Vital Signs: Temperature 97.3 , Pulse 92 , B/P 132 /63 , Respiratory Rate 15 , O2 SAT 100 , Mechanical Ventilator, O2 Flow Rate 4.0 . Vital Sign Comment: n/a EKG Rhythm: Sinus Rhythm Rhythm change?: N MD Notified?: N -Dr. Chris MCCRACKEN Response: Order Received& Read Back Latest Lechuga Fall Score: 50 Fall Risk: High Risk Safety Measures: Call light Within Reach, Bed Alarm Zone 1, Side Rails Side Rails x3, Bed position Low and Locked. Fall Precautions: Yellow Socks Yellow Gown Door Sign Patient Fall Education Report given to DAMIAN Luna.
--- NOTE | 2020-06-10 19:05 | NUR ---
"NURSE NOTES: Report received from DAMIAN Arzate. Pt is s/p PEG 06/09. Transferred from room 242-2 to 239-1. g-tube patent and intact running Vital AF 1.2 at 40 cc with 10 mL residual. Vitals 102/52 | 86 bpm | 100% O2 saturation | 98.2F axil. | 20 RR. EKG shows SR. Tolerating prescribed vent settings. Pt nods head when asked if she has pain. Bed placed in lowest and locked position. Call light within reach. Will continue to monitor."
--- NOTE | 2020-06-10 19:34 | Cardiology Progress Note ---
Subjective DATE OF SERVICE: Jun 10, 2020 S/P uncomplicated EGD; feedings to start today. Remains on vent via trach. Monitor: PAFib/flutter; slow rate and pauses noted, but resolved off digoxin. BP range overall stabilized. CXR (06/02) reviewed: bilateral infiltrates with left pl eff'n. ICU logs and cardiology care plan reviewed and updated Objective Last 24 Hour Vital Signs Date Time Temp Pulse Resp B/P (MAP) Pulse Ox O2 Delivery O2 Flow Rate FiO2 06/10/20 18:59 91 17 100 Mechanical Ventilator 40 91 16 40 06/10/20 17:12 92 132/63 06/10/20 16:00 97.3 94 15 105/40 (61) 100 06/10/20 16:00 40 06/10/20 16:00 Mechanical Ventilator Mechanical Ventilator 06/10/20 15:15 81 19 100 Mechanical Ventilator 30 84 20 30 06/10/20 15:13 91 06/10/20 12:24 85 137/63 06/10/20 12:00 Mechanical Ventilator Mechanical Ventilator 06/10/20 12:00 40 06/10/20 12:00 97.3 85 15 137/63 (87) 100 06/10/20 12:00 85 06/10/20 11:53 89 16 100 Mechanical Ventilator 30 92 16 30 06/10/20 08:00 Mechanical Ventilator Mechanical Ventilator 06/10/20 08:00 83 06/10/20 08:00 97.5 88 14 122/59 (80) 100 06/10/20 08:00 40 06/10/20 07:15 89 16 100 Mechanical Ventilator 30 92 16 30 06/10/20 05:28 83 123/86 06/10/20 04:00 98.1 93 17 136/64 (88) 99 06/10/20 04:00 Mechanical Ventilator Mechanical Ventilator 06/10/20 04:00 40 06/10/20 04:00 80 06/10/20 03:03 85 14 30 06/10/20 00:00 40 06/10/20 00:00 Mechanical Ventilator Mechanical Ventilator 06/10/20 00:00 86 06/10/20 00:00 98.2 90 16 128/60 (82) 98 06/09/20 23:21 89 127/59 06/09/20 22:47 86 14 30 10/13/20 20:01 83 14 100 Mechanical Ventilator 30 84 14 30 06/09/20 20:00 Mechanical Ventilator Mechanical Ventilator 06/09/20 20:00 82 06/09/20 20:00 40 06/09/20 20:00 98.4 80 16 122/65 (84) 99 ROS: unchanged from my eval of 05/03/20 HEENT: Orally intubated, Mechanically Ventilated, Thin secretions ET Tube RHYTHM: Afib LUNGS: no accessory muscle use, expiratory wheezing, diminished breath sounds CARDIAC: normal S1 and S2, no murmur, irregularly irregular ABDOMEN: normal bowel sounds, non tender, soft, no organomegaly, G-Tube intact EXTREMITIES: no calf tenderness, +1 edema Laboratory Tests Test 06/09/20 23:20 06/10/20 03:30 06/10/20 05:27 06/10/20 12:20 POC Whole Blood Glucose Pending Pending 90 MG/DL (74-106) White Blood Count 15.5 K/UL (4.8-10.8) H Red Blood Count 3.28 M/UL (4.20-5.40) L Hemoglobin 8.8 G/DL (12.0-16.0) L Hematocrit 26.4 % (37.0-47.0) L Mean Corpuscular Volume 81 FL (80-99) Mean Corpuscular Hemoglobin 26.9 PG (27.0-31.0) L Mean Corpuscular Hemoglobin Concent 33.4 G/DL (32.0-36.0) Red Cell Distribution Width 15.9 % (11.6-14.8) H Platelet Count 505 K/UL (150-450) H Mean Platelet Volume 5.0 FL (6.5-10.1) L Neutrophils (%) (Auto) 64.6 % (45.0-75.0) Lymphocytes (%) (Auto) 20.4 % (20.0-45.0) Monocytes (%) (Auto) 12.5 % (1.0-10.0) H Eosinophils (%) (Auto) 0.3 % (0.0-3.0) Basophils (%) (Auto) 2.2 % (0.0-2.0) H Erythrocyte Sedimentation Rate 125 MM/HR (0-30) H Sodium Level 139 MMOL/L (136-145) Potassium Level 3.3 MMOL/L (3.5-5.1) L Chloride Level 103 MMOL/L (98-107) Carbon Dioxide Level 30 MMOL/L (21-32) Anion Gap 6 mmol/L (5-15) Blood Urea Nitrogen 35 mg/dL (7-18) H Creatinine 1.2 MG/DL (0.55-1.30) Estimat Glomerular Filtration Rate 52.5 mL/min (>60) Glucose Level 95 MG/DL (74-106) Calcium Level 7.7 MG/DL (8.5-10.1) L Total Bilirubin 0.4 MG/DL (0.2-1.0) Aspartate Amino Transf (AST/SGOT) 64 U/L (15-37) H Alanine Aminotransferase (ALT/SGPT) 60 U/L (12-78) Alkaline Phosphatase 236 U/L (46-116) H C-Reactive Protein, Quantitative 8.2 mg/dL (0.00-0.90) H Total Protein 6.3 G/DL (6.4-8.2) L Albumin 1.2 G/DL (3.4-5.0) L Globulin 5.1 g/dL Albumin/Globulin Ratio 0.2 (1.0-2.7) L Amylase Level 75 U/L (25-115) Lipase 61 U/L (73-393) L Test 06/10/20 17:17 POC Whole Blood Glucose 113 MG/DL (74-106) H Microbiology Date/Time Source Procedure Growth Status 06/08/20 23:00 Nasopharynx SARS-CoV-2 RdRp Gene Assay - Final Complete Assessment/Plan Assessment/Plan Acute on chronic respiratory acidosis Worsening anemia Acute respiratory failure - s/p trach. Dysphagia - s/p PEG Shock recovered LE edema due to severe pulmonary hypertension and right heart strain COPD exacerb with active bronchospasm Lactic acidosis COVID 19 PNA Acute on chr renal failure Chronic systolic/diastolic CHF Pulmonary fibrosis with chronic hypoxia Paroxysmal AFib with variable rates Hx Multifocal atrial arrhythmias Pulmonary HTN - severe Hx NSVTach Severe protein/calorie malnutrition Acute myocardial ischemia Resolving transaminitis Hypokalemia Nutrition by GTube; advance feeds as tolerated, then DC IVF. PRBC transfusion for hb below 7gm/dl Vent support with on-going weaning efforts following trach Diltiazem dose to be titrated - based on ventricular rates No resumption of digoxin due to slow heart rates and pauses. Full anticoagulation for cardioembolic prophyl; start eliquis once GI stable. Monitor liver fxn. Replace potassium; check Mg++ Simone Perez MD Jun 10, 2020 19:34
[2020-06-10 20:00] VITALS: BP 102/56
--- NOTE | 2020-06-10 22:16 | General Progress Note ---
Subjective Allergies: Coded Allergies: CIPROFLOXACIN (Verified Allergy, Unknown, 09/27/17) Subjective Above noted s/p PEG yesterday orders for TF given Objective Last 24 Hour Vital Signs Date Time Temp Pulse Resp B/P (MAP) Pulse Ox O2 Delivery O2 Flow Rate FiO2 06/10/20 20:00 98.2 86 18 102/56 (71) 100 06/10/20 20:00 Mechanical Ventilator Mechanical Ventilator 06/10/20 20:00 40 06/10/20 19:04 86 06/10/20 18:59 91 17 100 Mechanical Ventilator 40 91 16 40 06/10/20 17:12 92 132/63 06/10/20 16:00 97.3 94 15 105/40 (61) 100 06/10/20 16:00 40 06/10/20 16:00 Mechanical Ventilator Mechanical Ventilator 06/10/20 15:15 81 19 100 Mechanical Ventilator 30 84 20 30 06/10/20 15:13 91 06/10/20 12:24 85 137/63 06/10/20 12:00 Mechanical Ventilator Mechanical Ventilator 06/10/20 12:00 40 06/10/20 12:00 97.3 85 15 137/63 (87) 100 06/10/20 12:00 85 06/10/20 11:53 89 16 100 Mechanical Ventilator 30 92 16 30 06/10/20 08:00 Mechanical Ventilator Mechanical Ventilator 06/10/20 08:00 83 06/10/20 08:00 97.5 88 14 122/59 (80) 100 06/10/20 08:00 40 06/10/20 07:15 89 16 100 Mechanical Ventilator 30 92 16 30 06/10/20 05:28 83 123/86 06/10/20 04:00 98.1 93 17 136/64 (88) 99 06/10/20 04:00 Mechanical Ventilator Mechanical Ventilator 06/10/20 04:00 40 06/10/20 04:00 80 06/10/20 03:03 85 14 30 06/10/20 00:00 40 06/10/20 00:00 Mechanical Ventilator Mechanical Ventilator 06/10/20 00:00 86 06/10/20 00:00 98.2 90 16 128/60 (82) 98 06/09/20 23:21 89 127/59 06/09/20 22:47 86 14 30 Intake and Output 06/09/20 06/10/20 19:00 07:00 Intake Total 75 ml 848.75 ml Output Total 1000 ml 2200 ml Balance -925 ml -1351.25 ml IV Total 75 ml 848.75 ml Output Urine Total 800 ml 2000 ml Stool Total 200 ml 200 ml Laboratory Tests 06/09/20 23:20: POC Whole Blood Glucose [Pending] 06/10/20 03:30: White Blood Count 15.5H, Red Blood Count 3.28L, Hemoglobin 8.8L, Hematocrit 26.4L, Mean Corpuscular Volume 81, Mean Corpuscular Hemoglobin 26.9L, Mean Cor puscular Hemoglobin Concent 33.4, Red Cell Distribution Width 15.9H, Platelet Count 505H, Mean Platelet Volume 5.0L, Neutrophils (%) (Auto) 64.6, Lymphocytes (%) (Auto) 20.4, Monocytes (%) (Auto) 12.5H, Eosinophils (%) (Auto) 0.3, Basophils (%) (Auto) 2.2H, Erythrocyte Sedimentation Rate 125H, Sodium Level 139, Potassium Level 3.3L, Chloride Level 103, Carbon Dioxide Level 30, Anion Gap 6, Blood Urea Nitrogen 35H, Creatinine 1.2, Estimat Glomerular Filtration Rate 52.5, Glucose Level 95, Calcium Level 7.7L, Total Bilirubin 0.4, Aspartate Amino Transf (AST/SGOT) 64H, Alanine Aminotransferase (ALT/SGPT) 60, Alkaline Phosphatase 236H, C-Reactive Protein, Quantitative 8.2H, Total Protein 6.3L, Albumin 1.2L, Globulin 5.1, Albumin/Globulin Ratio 0.2L, Amylase Level 75, Lipase 61L 06/10/20 05:27: POC Whole Blood Glucose [Pending] 06/10/20 12:20: POC Whole Blood Glucose 90 06/10/20 17:17: POC Whole Blood Glucose 113H Height (Feet): 5 Height (Inches): 2 Weight (Pounds): 158 Objective Elderly AA woman sleepy, arousable neck (+) trach coars BS RR abd soft, (+) GT no edema Assessment/Plan Status: stable Assessment/Plan: Assessment - Transaminitis, COVID-19 vs GB disease - Gallstones - rising WBC --> ? source - Resp failure - s/p trach - Dysphagia - NGT -->s/p PEG - CHF - Pulm HTN - Arrhythmia and periodic hypotension - Lovenox - Renal failure Recommendations - monitor LFT - Continue TF - Abx - consider CT abd and pelvis Justine Torres MD Jun 10, 2020 22:16
[2020-06-11] VITALS: BP 107/52
--- NOTE | 2020-06-11 00:48 | NUR ---
NURSE NOTES: Daughter Heike called in regards to patient status. Said she will reconsider [facility] but is still adamant about D/C to [facility]. Pt in stable condition. Will monitor.
[2020-06-11] MEDS: D5 1/2NS 1,000 ML IV SCH (01:00)
[2020-06-11 03:51] VITALS: BP 108/52
[2020-06-11] MEDS: dilTIAZem HCl 60mg tab NG SCH (05:02)
[2020-06-11 05:04] LABS: BASOPHILS % (AUTO) 3.4 % (0.0-2.0); HEMATOCRIT 26.7 % (37.0-47.0); LYMPHOCYTES % (AUTO) 14.6 % (20.0-45.0); MEAN CORPUSCULAR VOLUME 81 FL (80-99); MONOCYTES % (AUTO) 12.6 % (1.0-10.0); NEUTROPHILS % (AUTO) 67.3 % (45.0-75.0); PLATELET COUNT 430 K/UL (150-450); RED BLOOD COUNT 3.28 M/UL (4.20-5.40); RED CELL DISTRIBUTION WIDTH 15.5 % (11.6-14.8); WHITE BLOOD COUNT 17.6 K/UL (4.8-10.8)
[2020-06-11 05:21] LABS: ALBUMIN 1.2 G/DL (3.4-5.0); ALBUMIN/GLOBULIN RATIO 0.3 (1.0-2.7); BILIRUBIN,TOTAL 0.4 MG/DL (0.2-1.0); CALCIUM 7.6 MG/DL (8.5-10.1); CREATININE 1.3 MG/DL (0.55-1.30); POTASSIUM 3.9 MMOL/L (3.5-5.1)
[2020-06-11] MEDS: NovoLOG Insulin Flexpen SUBQ SCH ×3 (05:39→18:00)
--- NOTE | 2020-06-11 06:34 | NUR ---
NURSE NOTES: Magnesium 1.2 and Sodium appears to be trending low. Notified MD and awaiting further orders. Pt in stable condition with no respiratory or cardiac distress noted.
--- NOTE | 2020-06-11 07:00 | NUR ---
NURSE NOTES: recieved patient report from josé miguel anderson. patient is on bed asleep. on vent at prescribed rate. tube feeding running. tolerating. afebrile. no acute events reported last night. rectal tube in, draining, mueller in, patent. will follow plan of care.
--- NOTE | 2020-06-11 07:00 | NUR ---
NURSE NOTES: Orders from [place] to cover Mag with 3g IV. Read back and initiated plan of care.
--- NOTE | 2020-06-11 07:08 | NUR ---
NURSE HAND-OFF REPORT: Important Events on Shift: N/A; Hypomagnesia, Hyponatremia Patient Status: Stable Diet: Vital AF Pending Orders: Y - Na Pending Results/Labs: N Pending MD notification: Y - Na+ - Ronny Latest Vital Signs: Temperature 98.1 , Pulse 85 , B/P 110 /53 , Respiratory Rate 15 , O2 SAT 100 , Mechanical Ventilator, O2 Flow Rate 4.0 . Vital Sign Comment: WNL EKG Rhythm: Sinus Rhythm Rhythm change?: N Notified?: N -Dr. Chris MCCRACKEN Response: Order Received& Read Back Latest Lechuga Fall Score: 50 Fall Risk: High Risk Safety Measures: Call light Within Reach, Bed Alarm Zone 1, Side Rails Side Rails x3, Bed position Low and Locked. Fall Precautions: Yellow Socks Yellow Gown Door Sign Patient Fall Education Report given to DAMIAN Fair.
[2020-06-11] MEDS ORDERED: Acetaminophen 650mg/20.3ml GT PRN (07:45)
[2020-06-11] MEDS: Ipratropium Bromide Inhaler INH SCH ×4 (07:59→19:24)
[2020-06-11 08:00] VITALS: BP 113/46
[2020-06-11] MEDS: Eliquis 5mg tablet GT SCH ×2 (08:17→18:00)
--- NOTE | 2020-06-11 10:07 | Infectious Diseases Prog Note ---
Assessment/Plan Assessment/Plan A 1. COVID 19 pneumonia Test positive: 05/03 -05/09 2. renal failure 3. increased LFT 4. COPD 5. CHF, Diastolic & systolic 6. asthma 7. Cholelithiasis r/o cholecystitis 8. Hypoxic hypercapnic respiratory failure 9. Pseudomonas pneumonia treated 10. Leukocytosis 11. Funguria P 1. Observe off of antibiotic 2. Will f/u CXR & UA Subjective ROS Limited/Unobtainable: Yes Constitutional: Reports: no symptoms Respiratory: Reports: no symptoms Allergies: Coded Allergies: CIPROFLOXACIN (Verified Allergy, Unknown, 09/27/17) Objective Last 24 Hour Vital Signs Date Time Temp Pulse Resp B/P (MAP) Pulse Ox O2 Delivery O2 Flow Rate FiO2 06/11/20 08:00 87 06/11/20 08:00 98.2 87 14 113/46 (68) 100 06/11/20 07:59 90 19 100 Mechanical Ventilator 40 90 19 40 06/11/20 07:46 Mechanical Ventilator Mechanical Ventilator 06/11/20 07:43 40 06/11/20 05:02 85 110/53 06/11/20 04:00 40 06/11/20 04:00 Mechanical Ventilator Mechanical Ventilator 06/11/20 03:51 98.1 84 15 108/52 (70) 100 06/11/20 03:27 71 06/11/20 03:06 86 16 40 06/11/20 00:00 98.0 88 14 107/52 (70) 100 06/11/20 00:00 Mechanical Ventilator Mechanical Ventilator 06/10/20 23:34 79 06/10/20 23:12 87 107/58 06/10/20 23:00 86 18 40 06/10/20 20:00 98.2 86 18 102/56 (71) 100 06/10/20 20:00 Mechanical Ventilator Mechanical Ventilator 06/10/20 20:00 40 06/10/20 19:04 86 06/10/20 18:59 91 17 100 Mechanical Ventilator 40 91 16 40 06/10/20 17:12 92 132/63 06/10/20 16:00 97.3 94 15 105/40 (61) 100 06/10/20 16:00 40 06/10/20 16:00 Mechanical Ventilator Mechanical Ventilator 06/10/20 15:15 81 19 100 Mechanical Ventilator 30 84 20 30 06/10/20 15:13 91 06/10/20 12:24 85 137/63 06/10/20 12:00 Mechanical Ventilator Mechanical Ventilator 06/10/20 12:00 40 06/10/20 12:00 97.3 85 15 137/63 (87) 100 06/10/20 12:00 85 06/10/20 11:53 89 16 100 Mechanical Ventilator 30 92 16 30 Height (Feet): 5 Height (Inches): 2 Weight (Pounds): 158 HEENT: mucous membranes moist, status post trach Respiratory/Chest: lungs clear, other - on ventilator Cardiovascular: normal rate Abdomen: soft, non tender, other - GT feeding Extremities: other - edema of arms Neurologic/Psychiatric: alert, responsive Microbiology Date/Time Source Procedure Growth Status 06/08/20 23:00 Nasopharynx SARS-CoV-2 RdRp Gene Assay - Final Complete Laboratory Tests Test 06/10/20 12:20 06/10/20 17:17 06/10/20 22:59 06/11/20 03:25 POC Whole Blood Glucose 90 MG/DL (74-106) 113 MG/DL (74-106) H Pending White Blood Count 17.6 K/UL (4.8-10.8) H Red Blood Count 3.28 M/UL (4.20-5.40) L Hemoglobin 9.0 G/DL (12.0-16.0) L Hematocrit 26.7 % (37.0-47.0) L Mean Corpuscular Volume 81 FL (80-99) Mean Corpuscular Hemoglobin 27.4 PG (27.0-31.0) Mean Corpuscular Hemoglobin Concent 33.7 G/DL (32.0-36.0) Red Cell Distribution Width 15.5 % (11.6-14.8) H Platelet Count 430 K/UL (150-450) Mean Platelet Volume 4.7 FL (6.5-10.1) L Neutrophils (%) (Auto) 67.3 % (45.0-75.0) Lymphocytes (%) (Auto) 14.6 % (20.0-45.0) L Monocytes (%) (Auto) 12.6 % (1.0-10.0) H Eosinophils (%) (Auto) 2.0 % (0.0-3.0) Basophils (%) (Auto) 3.4 % (0.0-2.0) H Sodium Level 135 MMOL/L (136-145) L Potassium Level 3.9 MMOL/L (3.5-5.1) Chloride Level 99 MMOL/L (98-107) Carbon Dioxide Level 28 MMOL/L (21-32) Anion Gap 8 mmol/L (5-15) Blood Urea Nitrogen 30 mg/dL (7-18) H Creatinine 1.3 MG/DL (0.55-1.30) Estimat Glomerular Filtration Rate 47.8 mL/min (>60) Glucose Level 129 MG/DL (74-106) H Calcium Level 7.6 MG/DL (8.5-10.1) L Magnesium Level 1.2 MG/DL (1.8-2.4) L Total Bilirubin 0.4 MG/DL (0.2-1.0) Aspartate Amino Transf (AST/SGOT) 55 U/L (15-37) H Alanine Aminotransferase (ALT/SGPT) 33 U/L (12-78) Alkaline Phosphatase 268 U/L (46-116) H Total Protein 5.8 G/DL (6.4-8.2) L Albumin 1.2 G/DL (3.4-5.0) L Globulin 4.6 g/dL Albumin/Globulin Ratio 0.3 (1.0-2.7) L Test 06/11/20 05:13 POC Whole Blood Glucose 137 MG/DL (74-106) H Current Medications Medications (Trade) Dose Ordered Sig/Ghislaine Route PRN Reason Start Time Stop Time Status Last Admin Dose Admin Acetaminophen (Tylenol) 650 mg Q4H PRN GT Temp >100.5 06/11/20 07:45 06/24/20 16:14 Apixaban (Eliquis) 5 mg BID GT 06/11/20 09:00 09/08/20 17:59 06/11/20 08:17 Dextrose (Dextrose 50%) 25 ml Q30M PRN IV Hypoglycemia 05/22/20 18:30 08/20/20 18:29 Dextrose (Dextrose 50%) 50 ml Q30M PRN IV Hypoglycemia 05/22/20 18:30 08/20/20 18:29 Dextrose/Sodium Chloride 1,000 ml @ 75 mls/hr [id number] IV 06/09/20 08:00 07/09/20 07:59 06/11/20 01:00 Diltiazem HCl (Cardizem Tab) 60 mg EVERY 6 HOURS GT 06/11/20 12:00 07/07/20 05:59 Insulin Aspart (NovoLOG) Q6HR SUBQ 05/23/20 00:00 08/20/20 20:59 06/02/20 00:00 Ipratropium Delta (Atrovent Inh) 1 puffs QIDRT INH 06/01/20 07:00 06/26/20 09:59 06/11/20 07:59 Lansoprazole (Prevacid) 30 mg DAILY GT 06/11/20 09:00 07/06/20 08:59 06/11/20 08:17 Loperamide HCl (Imodium) 2 mg Q6H PRN GT Diarrhea 06/11/20 08:32 06/25/20 08:31 06/11/20 08:18 Magnesium Sulfate 100 ml @ 100 mls/hr Q1H IVPB 06/11/20 08:00 06/11/20 10:59 06/11/20 09:24 Freddy Woodson MD Jun 11, 2020 10:07
[2020-06-11 10:54] LABS: APPEARANCE,URINE CLOUDY; BILIRUBIN, URINE NEGATIVE (NEGATIVE); COLOR,URINE PALE YELLOW; GLUCOSE, URINE (UA) NEGATIVE (NEGATIVE); KETONES,URINE NEGATIVE (NEGATIVE); LEUKOCYTE ESTERASE ,URINE 3+ (NEGATIVE); NITRITE,URINE NEGATIVE (NEGATIVE); PH,URINE 6.5 (4.5-8.0); PROTEIN,URINE 2+ (NEGATIVE); UROBILINOGEN,URINE NORMAL MG/DL (0.0-1.0)
--- NOTE | 2020-06-11 11:10 | NUR ---
NURSE NOTES: left a message to wound care nurse extension [phone] for follow up wound care eval. will continue to monitor.
--- NOTE | 2020-06-11 11:43 | Surgery Progress Note ---
Surgery Progress Note Subjective Procedure Performed trach Additional Comments no acute events comfortable Objective Last 24 Hour Vital Signs Date Time Temp Pulse Resp B/P (MAP) Pulse Ox O2 Delivery O2 Flow Rate FiO2 06/11/20 08:00 87 06/11/20 08:00 98.2 87 14 113/46 (68) 100 06/11/20 07:59 90 19 100 Mechanical Ventilator 40 90 19 40 06/11/20 07:46 Mechanical Ventilator Mechanical Ventilator 06/11/20 07:43 40 06/11/20 05:02 85 110/53 06/11/20 04:00 40 06/11/20 04:00 Mechanical Ventilator Mechanical Ventilator 06/11/20 03:51 98.1 84 15 108/52 (70) 100 06/11/20 03:27 71 06/11/20 03:06 86 16 40 06/11/20 00:00 98.0 88 14 107/52 (70) 100 06/11/20 00:00 Mechanical Ventilator Mechanical Ventilator 06/10/20 23:34 79 06/10/20 23:12 87 107/58 06/10/20 23:00 86 18 40 06/10/20 20:00 98.2 86 18 102/56 (71) 100 06/10/20 20:00 Mechanical Ventilator Mechanical Ventilator 06/10/20 20:00 40 06/10/20 19:04 86 06/10/20 18:59 91 17 100 Mechanical Ventilator 40 91 16 40 06/10/20 17:12 92 132/63 06/10/20 16:00 97.3 94 15 105/40 (61) 100 06/10/20 16:00 40 06/10/20 16:00 Mechanical Ventilator Mechanical Ventilator 06/10/20 15:15 81 19 100 Mechanical Ventilator 30 84 20 30 06/10/20 15:13 91 06/10/20 12:24 85 137/63 06/10/20 12:00 Mechanical Ventilator Mechanical Ventilator 06/10/20 12:00 40 06/10/20 12:00 97.3 85 15 137/63 (87) 100 06/10/20 12:00 85 06/10/20 11:53 89 16 100 Mechanical Ventilator 30 92 16 30 I&O Intake and Output 06/10/20 06/11/20 19:00 07:00 Intake Total 1302.5 ml 1440 ml Output Total 1600 ml 90 ml Balance -297.5 ml 1350 ml Free Water 180 ml 100 ml IV Total 862.5 ml 900 ml Tube Feeding 260 ml 440 ml Output Urine Total 1500 ml Stool Total 100 ml 90 ml Dressing: saturated Cardiovascular: RSR Respiratory: decreased breath sounds Abdomen: soft, non-tender, present bowel sounds Extremities: no tenderness, no cyanosis Laboratory Tests Test 06/10/20 12:20 06/10/20 17:17 06/10/20 22:59 06/11/20 03:25 POC Whole Blood Glucose 90 MG/DL (74-106) 113 MG/DL (74-106) H Pending White Blood Count 17.6 K/UL (4.8-10.8) H Red Blood Count 3.28 M/UL (4.20-5.40) L Hemoglobin 9.0 G/DL (12.0-16.0) L Hematocrit 26.7 % (37.0-47.0) L Mean Corpuscular Volume 81 FL (80-99) Mean Corpuscular Hemoglobin 27.4 PG (27.0-31.0) Mean Corpuscular Hemoglobin Concent 33.7 G/DL (32.0-36.0) Red Cell Distribution Width 15.5 % (11.6-14.8) H Platelet Count 430 K/UL (150-450) Mean Platelet Volume 4.7 FL (6.5-10.1) L Neutrophils (%) (Auto) 67.3 % (45.0-75.0) Lymphocytes (%) (Auto) 14.6 % (20.0-45.0) L Monocytes (%) (Auto) 12.6 % (1.0-10.0) H Eosinophils (%) (Auto) 2.0 % (0.0-3.0) Basophils (%) (Auto) 3.4 % (0.0-2.0) H Sodium Level 135 MMOL/L (136-145) L Potassium Level 3.9 MMOL/L (3.5-5.1) Chloride Level 99 MMOL/L (98-107) Carbon Dioxide Level 28 MMOL/L (21-32) Anion Gap 8 mmol/L (5-15) Blood Urea Nitrogen 30 mg/dL (7-18) H Creatinine 1.3 MG/DL (0.55-1.30) Estimat Glomerular Filtration Rate 47.8 mL/min (>60) Glucose Level 129 MG/DL (74-106) H Calcium Level 7.6 MG/DL (8.5-10.1) L Magnesium Level 1.2 MG/DL (1.8-2.4) L Total Bilirubin 0.4 MG/DL (0.2-1.0) Aspartate Amino Transf (AST/SGOT) 55 U/L (15-37) H Alanine Aminotransferase (ALT/SGPT) 33 U/L (12-78) Alkaline Phosphatase 268 U/L (46-116) H Total Protein 5.8 G/DL (6.4-8.2) L Albumin 1.2 G/DL (3.4-5.0) L Globulin 4.6 g/dL Albumin/Globulin Ratio 0.3 (1.0-2.7) L Test 06/11/20 05:13 06/11/20 10:30 06/11/20 10:36 POC Whole Blood Glucose 137 MG/DL (74-106) H 124 MG/DL (74-106) H Urine Color Pale yellow Urine Appearance Cloudy Urine pH 6.5 (4.5-8.0) Urine Specific [place] 1.010 (1.005-1.035) Urine Protein 2+ (NEGATIVE) H Urine Glucose (UA) Negative (NEGATIVE) Urine Ketones Negative (NEGATIVE) Urine Blood 3+ (NEGATIVE) H Urine Nitrite Negative (NEGATIVE) Urine Bilirubin Negative (NEGATIVE) Urine Urobilinogen Normal MG/DL (0.0-1.0) Urine Leukocyte Esterase 3+ (NEGATIVE) H Urine RBC 10-15 /HPF (0 - 2) H Urine WBC 40-60 /HPF (0 - 2) H Urine Squamous Epithelial Cells Few /LPF (NONE/OCC) Urine Bacteria Few /HPF (NONE) Urine Yeast Few /HPF (NONE) H Plan Problems: (1) Elevated troponin (2) Atrial fibrillation with RVR (3) COVID-19 Assessment & Plan: ++ as per pulm and ID trach DAILY ESTIMATED NEEDS: Needs based on Critical Care, ARF/ 56kg abw 22-28 kcals/kg 1596-1410 total kcals 0.8-1.5 (increase w/ renal improvement) g protein/kg 45-84 g total protein 25-30 mL/kg 9850-1276 total fluid mLs NUTRITION DIAGNOSIS: * Altered nutrition related lab values r/t clinical status as evidenced by elev BUN(82), creat(3.8) trending up, critical ABG (low pH, elev CO2)-> now improved. * Swallowing difficulty R/T respiratory status as evidenced by s/p oral intubation, on OGT feeds. 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: MEMORIAL ADVISER eval post extubation ENTERAL NUTRITION RECOMMENDATIONS: Nepro @ 35ml/hr x 24 hrs to provide 840ml, 1512kcal, 68g prot, 610ml free water * W/ worsening renal fxn, rec to continue Nepro * As tolerated, increase goal rate to 35ml/hr x 24 hrs to meet 100% est kcal/prot needs ADDITIONAL RECOMMENDATIONS: 1) Calibrated bedscale wt 2) Monitor renal fxn and lytes, need to continue Nepro Creat trending up 3) Rec niss w/ solumedrol (4) Community acquired pneumonia (5) COPD (chronic obstructive pulmonary disease) (6) Pulmonary fibrosis (7) Asthma (8) History of asthma (9) NSTEMI (non-ST elevated myocardial infarction) (10) Moderate to severe pulmonary hypertension (11) Asthma exacerbation (12) Abnormal LFTs Assessment & Plan: afebrile, HD stable labs noted lft's elevated US reviewed exam benign gb likely reactive from underlying pathology unlikely cholecystitis clinically fluid overload trend labs will monitor exam clinically covid + prognosis guarded cxr reviewed on abx worsening plan repeat US - noted cannot get hida given covid labs noted worsening leukocytosis Gallbladder demonstrates wall thickening and wall edema, gallbladder wall measuring up to 6 mm thick. There are gallstones. Sonographic Escoto's sign is negative. Common bile duct measures 3 mm in diameter. No intrahepatic biliary ductal dilatation. Liver demonstrates normal echogenicity, no focal abnormality. Portal vein and hepatic veins are patent. Pancreas is unremarkable. Spleen is unremarkable. Left kidney measures 9.2 cm in length. Right kidney measures 9.9 cm length. Both kidneys demonstrate normal echogenicity. There is no hydronephrosis. Small cyst is seen in the right kidney. . Abdominal aorta was not imaged . There is trace ascites. There is a small right pleural effusion incidentally noted Impression: Small right pleural effusion. Trace ascites Cholelithiasis. Gallbladder wall thickening may be related to hemodynamic factor s causing the pleural fluid and ascites, but could also indicate acute cholecystitis. Consider nuclear medicine hepatobiliary scan if there is high clinical suspicion. Negative for dilated bile ducts Small right renal cyst incidentally noted (13) Acute respiratory failure with hypoxia Assessment & Plan: s/p trach discussed with family comfortable weaning Quentin Sanchez Jun 11, 2020 11:43
[2020-06-11] MEDS: dilTIAZem HCl 60mg tab GT SCH ×2 (11:54→18:00)
[2020-06-11 12:00] VITALS: BP_SYST 100; BP_SYST 116; BP_DIAS 52; BP_DIAS 58
--- NOTE | 2020-06-11 12:01 | Pulmonology Progress Note ---
Subjective ROS Limited/Unobtainable: Yes Constitutional: Reports: no symptoms Musculoskeletal: Denies: pain Allergies: Coded Allergies: CIPROFLOXACIN (Verified Allergy, Unknown, 09/27/17) All Systems: reviewed and negative except above Subjective on vent- s/p GT comfortable COVID- reduced LOC family wants [place] Objective Last 24 Hour Vital Signs Date Time Temp Pulse Resp B/P (MAP) Pulse Ox O2 Delivery O2 Flow Rate FiO2 06/11/20 11:54 87 113/46 06/11/20 08:00 87 06/11/20 08:00 98.2 87 14 113/46 (68) 100 06/11/20 07:59 90 19 100 Mechanical Ventilator 40 90 19 40 06/11/20 07:46 Mechanical Ventilator Mechanical Ventilator 06/11/20 07:43 40 06/11/20 05:02 85 110/53 06/11/20 04:00 40 06/11/20 04:00 Mechanical Ventilator Mechanical Ventilator 06/11/20 03:51 98.1 84 15 108/52 (70) 100 06/11/20 03:27 71 06/11/20 03:06 86 16 40 06/11/20 00:00 98.0 88 14 107/52 (70) 100 06/11/20 00:00 Mechanical Ventilator Mechanical Ventilator 06/10/20 23:34 79 06/10/20 23:12 87 107/58 06/10/20 23:00 86 18 40 06/10/20 20:00 98.2 86 18 102/56 (71) 100 06/10/20 20:00 Mechanical Ventilator Mechanical Ventilator 06/10/20 20:00 40 06/10/20 19:04 86 06/10/20 18:59 91 17 100 Mechanical Ventilator 40 91 16 40 06/10/20 17:12 92 132/63 06/10/20 16:00 97.3 94 15 105/40 (61) 100 06/10/20 16:00 40 06/10/20 16:00 Mechanical Ventilator Mechanical Ventilator 06/10/20 15:15 81 19 100 Mechanical Ventilator 30 84 20 30 06/10/20 15:13 91 06/10/20 12:24 85 137/63 Intake and Output 06/10/20 06/11/20 19:00 07:00 Intake Total 1302.5 ml 1440 ml Output Total 1600 ml 90 ml Balance -297.5 ml 1350 ml Free Water 180 ml 100 ml IV Total 862.5 ml 900 ml Tube Feeding 260 ml 440 ml Output Urine Total 1500 ml Stool Total 100 ml 90 ml Objective deferred due to COVID Microbiology Date/Time Source Procedure Growth Status 06/08/20 23:00 Nasopharynx SARS-CoV-2 RdRp Gene Assay - Final Complete Laboratory Tests 06/10/20 12:20: POC Whole Blood Glucose 90 06/10/20 17:17: POC Whole Blood Glucose 113H 06/10/20 22:59: POC Whole Blood Glucose [Pending] 06/11/20 03:25: White Blood Count 17.6H, Red Blood Count 3.28L, Hemoglobin 9.0L, Hematocrit 26.7L, Mean Corpuscular Volume 81, Mean Corpuscular Hemoglobin 27.4, Mean Corpuscular Hemoglobin Concent 33.7, Red Cell Distribution Width 15.5H, Platelet Count 430, Mean Platelet Volume 4.7L, Neutrophils (%) (Auto) 67.3, Lymphocytes (%) (Auto) 14.6L, Monocytes (%) (Auto) 12.6H, Eosinophils (%) (Auto) 2.0, Basophils (%) (Auto) 3.4H, Sodium Level 135L, Potassium Level 3.9, Chloride Level 99, Carbon Dioxide Level 28, Anion Gap 8, Blood Urea Nitrogen 30H, Creatinine 1.3, Estimat Glomerular Filtration Rate 47.8, Glucose Level 129H, Calcium Level 7.6L, Magnesium Level 1.2L, Total Bilirubin 0.4, Aspartate Amino Transf (AST/SGOT) 55H, Alanine Aminotransferase (ALT/SGPT) 33, Alkaline Phosphatase 268H, Total Protein 5.8L, Albumin 1.2L, Globulin 4.6, Albumin/Globulin Ratio 0.3L 06/11/20 05:13: POC Whole Blood Glucose 137H 06/11/20 10:30: Urine Color Pale yellow, Urine Appearance Cloudy, Urine pH 6.5, Urine Specific [place] 1.010, Urine Protein 2+H, Urine Glucose (UA) Negative, Urine Ketones Negative, Urine Blood 3+H, Urine Nitrite Negative, Urine Bilirubin Negative, Urine Urobilinogen Normal, Urine Leukocyte Esterase 3+H, Urine RBC 10-15H, Urine WBC 40-60H, Urine Squamous Epithelial Cells Few, Urine Bacteria Few, Urine Yeast FewH 06/11/20 10:36: POC Whole Blood Glucose 124H Current Medications Medications (Trade) Dose Ordered Sig/Ghislaine Route PRN Reason Start Time Stop Time Status Last Admin Dose Admin Acetaminophen (Tylenol) 650 mg Q4H PRN GT Temp >100.5 06/11/20 07:45 06/24/20 16:14 Apixaban (Eliquis) 5 mg BID GT 06/11/20 09:00 09/08/20 17:59 06/11/20 08:17 Dextrose (Dextrose 50%) 25 ml Q30M PRN IV Hypoglycemia 05/22/20 18:30 08/20/20 18:29 Dextrose (Dextrose 50%) 50 ml Q30M PRN IV Hypoglycemia 05/22/20 18:30 08/20/20 18:29 Dextrose/Sodium Chloride 1,000 ml @ 75 mls/hr [id number] IV 06/09/20 08:00 07/09/20 07:59 06/11/20 01:00 Diltiazem HCl (Cardizem Tab) 60 mg EVERY 6 HOURS GT 06/11/20 12:00 07/07/20 05:59 06/11/20 11:54 Insulin Aspart (NovoLOG) Q6HR SUBQ 05/23/20 00:00 08/20/20 20:59 06/02/20 00:00 Ipratropium [place] (Atrovent Inh) 1 puffs QIDRT INH 06/01/20 07:00 06/26/20 09:59 06/11/20 10:43 Lansoprazole (Prevacid) 30 mg DAILY GT 06/11/20 09:00 07/06/20 08:59 06/11/20 08:17 Loperamide HCl (Imodium) 2 mg Q6H PRN GT Diarrhea 06/11/20 08:32 06/25/20 08:31 06/11/20 08:18 Assessment/Plan Assessment/Plan Impression: COVID-19 Chronic obstructive pulmonary disease/Asthma Community acquired pneumonia Atrial fibrillation with RVR Elevated troponin Congestive heart Failure sinus tachycardia Hypoxemia transaminitis with gallstones acute on chronic renal failure acute respiratory failure hypotension tachycardia transaminitis MODS anemia NSVT s/p GT Plan ID noted GT care monitor vitals-better Vent support/and trach care feeds per dietary on lovenox-->eliquis Bronchodilator therapy GT needed Monitor labs/ renal follow up - renal function still reduced- Covid 19 negative nutrition as able with very low albumin levels reviewed care and optimize position change and monitor skin surgical follow up noted monitor protein levels and adjust will need placement when gt placed impression, plan, and exam edited and reviewed in detail care discussed with Aaron Bales MD Jun 11, 2020 12:01
--- NOTE | 2020-06-11 14:12 | NUR ---
CASE MANAGEMENT:REVIEW 06/11/20 SI: COVID PNA NEW TRACH AND GTUBE VS: T 98.2 HR 85 RR 14 B/P 116/58 SATS 100% ON MECH VENT FIO2 40 LABS: WBC 17.6 NA 135 BUN 30 GLU 129 CA 7.6 AST 55 ALP 268 IS: ELIQUIS GT BID IVF@75/HR CARDIZEM GT Q6HRS DUONEB HHN Q : STEP DOWN UNIT DCP: SNF V. LTACH
--- NOTE | 2020-06-11 14:19 | NUR ---
DISCHARGE PLANNING: NOTE REFERRAL TO [facility] SENT. PT HAS BEEN ACCEPTED FINANCIALLY AND CLINICALLY. BED ASSIGNMENT PENDING
[2020-06-11] MEDS ORDERED: D5 1/2NS 1000ml IV ONE (15:01)
--- NOTE | 2020-06-11 15:57 | NUR ---
DISCHARGE DISPOSITION: PLEASE READ PT TO BE DISCHARGED TO [facility] [address] T: [phone]>> CALL FOR REPORT LIFELINE W/ RT ETA 1830 CM S/W DTR IVONNE SHE IS AGREEABLE TO LTACH PLACEMENT. AWARE OF ACCEPTING FACILITY DTR TO BE VISITING SHORTLY TRANSFER PACKET TO BE PROVIDED
[2020-06-11 16:00] VITALS: BP 116/59
--- NOTE | 2020-06-11 19:24 | NUR ---
NURSE NOTES: Received report from DAMIAN Fair. Pt is ready for discharge to [facility] room [address]. Daughter Heike is aware of the discharge. Report already given to Alena. Pt is resting in bed. awake with eyes open. Tolerating vent setting of AC14, TV 500, FiO2 40%, PEEP 5. No acute distress is noted. Feeding is held prior to transport. Bed is locked, bed alarms on, call light is within reach. Will continue to monitor pt.
--- NOTE | 2020-06-11 19:27 | NUR ---
NURSE NOTES: patient will be discharge to [facility], report was given to Alena anderson of [place]. awaiting for steel pickler time @ 1930. endorsed to ash schmidt rn.
[2020-06-11 20:00] VITALS: BP 112/63
--- NOTE | 2020-06-11 20:15 | General Progress Note ---
Subjective ROS Limited/Unobtainable: Yes Constitutional: Reports: malaise, weakness HEENT: Reports: no symptoms Cardiovascular: Reports: no symptoms Respiratory: Reports: sputum Gastrointestinal/Abdominal: Reports: difficulty swallowing Genitourinary: Reports: no symptoms Neurologic/Psychiatric: Reports: no symptoms Endocrine: Reports: no symptoms Hematologic/Lymphatic: Reports: anemia Allergies: Coded Allergies: CIPROFLOXACIN (Verified Allergy, Unknown, 09/27/17) All Systems: reviewed and negative except above Subjective no new complaints. tolerating feeds. no fevers. awake. on the vent. labs reviewed Objective Last 24 Hour Vital Signs Date Time Temp Pulse Resp B/P (MAP) Pulse Ox O2 Delivery O2 Flow Rate FiO2 06/11/20 19:26 100 18 100 Mechanical Ventilator 40 101 20 40 06/11/20 18:00 90 116/59 06/11/20 16:00 Mechanical Ventilator Mechanical Ventilator 06/11/20 16:00 40 06/11/20 16:00 98.2 102 14 116/59 (78) 100 06/11/20 16:00 90 06/11/20 15:50 93 22 100 Mechanical Ventilator 40 93 22 40 06/11/20 12:00 98.2 85 14 116/58 (77) 100 06/11/20 12:00 40 06/11/20 12:00 Mechanical Ventilator Mechanical Ventilator 06/11/20 11:54 87 113/46 06/11/20 11:40 89 06/11/20 11:00 86 16 100 Mechanical Ventilator 40 86 16 40 06/11/20 08:00 87 06/11/20 08:00 98.2 87 14 113/46 (68) 100 06/11/20 07:59 90 19 100 Mechanical Ventilator 40 90 19 40 06/11/20 07:46 Mechanical Ventilator Mechanical Ventilator 06/11/20 07:43 40 06/11/20 05:02 85 110/53 06/11/20 04:00 40 06/11/20 04:00 Mechanical Ventilator Mechanical Ventilator 06/11/20 03:51 98.1 84 15 108/52 (70) 100 06/11/20 03:27 71 06/11/20 03:06 86 16 40 06/11/20 00:00 98.0 88 14 107/52 (70) 100 06/11/20 00:00 Mechanical Ventilator Mechanical Ventilator 10/14/20 23:34 79 06/10/20 23:12 87 107/58 06/10/20 23:00 86 18 40 Intake and Output 06/10/20 06/11/20 19:00 07:00 Intake Total 1302.5 ml 1440 ml Output Total 1600 ml 90 ml Balance -297.5 ml 1350 ml Free Water 180 ml 100 ml IV Total 862.5 ml 900 ml Tube Feeding 260 ml 440 ml Output Urine Total 1500 ml Stool Total 100 ml 90 ml Laboratory Tests 06/10/20 22:59: POC Whole Blood Glucose [Pending] 06/11/20 03:25: White Blood Count 17.6H, Red Blood Count 3.28L, Hemoglobin 9.0L, Hematocrit 26.7L, Mean Corpuscular Volume 81, Mean Corpuscular Hemoglobin 27.4, Mean Corpuscular Hemoglobin Concent 33.7, Red Cell Distribution Width 15.5H, Platelet Count 430, Mean Platelet Volume 4.7L, Neutrophils (%) (Auto) 67.3, Lymphocytes (%) (Auto) 14.6L, Monocytes (%) (Auto) 12.6H, Eosinophils (%) (Auto) 2.0, Basophils (%) (Auto) 3.4H, Sodium Level 135L, Potassium Level 3.9, Chloride Level 99, Carbon Dioxide Level 28, Anion Gap 8, Blood Urea Nitrogen 30H, Creatinine 1.3, Estimat Glomerular Filtration Rate 47.8, Glucose Level 129H, Calcium Level 7.6L, Magnesium Level 1.2L, Total Bilirubin 0.4, Aspartate Amino Transf (AST/SGOT) 55H, Alanine Aminotransferase (ALT/SGPT) 33, Alkaline Phosphatase 268H, Total Protein 5.8L, Albumin 1.2L, Globulin 4.6, Albumin/Shira bulin Ratio 0.3L 06/11/20 05:13: POC Whole Blood Glucose 137H 06/11/20 10:30: Urine Color Pale yellow, Urine Appearance Cloudy, Urine pH 6.5, Urine Specific [place] 1.010, Urine Protein 2+H, Urine Glucose (UA) Negative, Urine Ketones Negative, Urine Blood 3+H, Urine Nitrite Negative, Urine Bilirubin Negative, Urine Urobilinogen Normal, Urine Leukocyte Esterase 3+H, Urine RBC 10-15H, Urine WBC 40-60H, Urine Squamous Epithelial Cells Few, Urine Bacteria Few, Urine Yeast FewH 06/11/20 10:36: POC Whole Blood Glucose 124H 06/11/20 18:20: POC Whole Blood Glucose [Pending] Height (Feet): 5 Height (Inches): 2 Weight (Pounds): 158 Objective General Appearance: WD/WN, no apparent distress, alert. orally intubated EENT: PERRL/EOMI Neck: non-tender, normal alignment, supple Cardiovascular: normal rate, regular rhythm Respiratory/Chest: chest wall non-tender, lungs clear, normal breath sounds, no respiratory distress, no accessory muscle use Abdomen: normal bowel sounds, non tender, soft, no organomegaly Edema: no edema noted Arm (L), no edema noted Arm (R) Neurologic: ethnographic materials conservator II-XII grossly normal, alert, oriented x 3, responsive Skin: normal pigmentation Lymphatic: normal anterior cervical (L), normal anterior cervical (R) Assessment/Plan Problem List: (1) Pulmonary fibrosis ICD Codes: J84.10 - Pulmonary fibrosis, unspecified SNOMED: 23331885 (2) History of asthma ICD Codes: Z87.09 - Personal history of other diseases of the respiratory system SNOMED: 606763077 (3) Asthma ICD Codes: J45.909 - Unspecified asthma, uncomplicated SNOMED: 342884940 (4) NSTEMI (non-ST elevated myocardial infarction) ICD Codes: I21.4 - Non-ST elevation (NSTEMI) myocardial infarction SNOMED: 944870652 (5) Elevated troponin ICD Codes: R79.89 - Other specified abnormal findings of blood chemistry SNOMED: 821751819, 569032372, 673634617 (6) COPD (chronic obstructive pulmonary disease) ICD Codes: J44.9 - Chronic obstructive pulmonary disease, unspecified SNOMED: 51449342 (7) Atrial fibrillation with RVR ICD Codes: I48.91 - Unspecified atrial fibrillation SNOMED: 920142441142770 (8) Community acquired pneumonia ICD Codes: J18.9 - Pneumonia, unspecified organism SNOMED: 912495187 Status: stable Assessment/Plan: vent support resp rx and suctioning as needed GT feeds. monitor residUALS off abx turn q2 skin care imodium for diarrhea dvt/stress ulcer prophylaxis replace k remains gaurded monitor wbc DTR requesting LTAC Bradford Linn MD Jun 11, 2020 20:14
--- NOTE | 2020-06-11 22:28 | General Progress Note ---
Subjective Allergies: Coded Allergies: CIPROFLOXACIN (Verified Allergy, Unknown, 09/27/17) Subjective Above noted s/p PEG Tolerating Feeds Objective Last 24 Hour Vital Signs Date Time Temp Pulse Resp B/P (MAP) Pulse Ox O2 Delivery O2 Flow Rate FiO2 06/11/20 20:00 97.9 99 14 112/63 (79) 99 06/11/20 20:00 40 06/11/20 20:00 Mechanical Ventilator Mechanical Ventilator 06/11/20 20:00 101 06/11/20 19:26 100 18 100 Mechanical Ventilator 40 101 20 40 06/11/20 18:00 90 116/59 06/11/20 16:00 Mechanical Ventilator Mechanical Ventilator 06/11/20 16:00 40 06/11/20 16:00 98.2 102 14 116/59 (78) 100 06/11/20 16:00 90 06/11/20 15:50 93 22 100 Mechanical Ventilator 40 93 22 40 06/11/20 12:00 98.2 85 14 116/58 (77) 100 06/11/20 12:00 40 06/11/20 12:00 Mechanical Ventilator Mechanical Ventilator 06/11/20 11:54 87 113/46 06/11/20 11:40 89 06/11/20 11:00 86 16 100 Mechanical Ventilator 40 86 16 40 06/11/20 08:00 87 06/11/20 08:00 98.2 87 14 113/46 (68) 100 06/11/20 07:59 90 19 100 Mechanical Ventilator 40 90 19 40 06/11/20 07:46 Mechanical Ventilator Mechanical Ventilator 06/11/20 07:43 40 06/11/20 05:02 85 110/53 06/11/20 04:00 40 06/11/20 04:00 Mechanical Ventilator Mechanical Ventilator 06/11/20 03:51 98.1 84 15 108/52 (70) 100 06/11/20 03:27 71 06/11/20 03:06 86 16 40 06/11/20 00:00 98.0 88 14 107/52 (70) 100 06/11/20 00:00 Mechanical Ventilator Mechanical Ventilator 06/10/20 23:34 79 06/10/20 23:12 87 107/58 06/10/20 23:00 86 18 40 Intake and Output 06/10/20 06/11/20 19:00 07:00 Intake Total 1302.5 ml 1440 ml Output Total 1600 ml 90 ml Balance -297.5 ml 1350 ml Free Water 180 ml 100 ml IV Total 862.5 ml 900 ml Tube Feeding 260 ml 440 ml Output Urine Total 1500 ml Stool Total 100 ml 90 ml Laboratory Tests 06/10/20 22:59: POC Whole Blood Glucose [Pending] 06/11/20 03:25: White Blood Count 17.6H, Red Blood Count 3.28L, Hemoglobin 9.0L, Hematocrit 26.7L, Mean Corpuscular Volume 81, Mean Corpuscular Hemoglobin 27.4, Mean Corpuscular Hemoglobin Concent 33.7, Red Cell Distribution Width 15.5H, Platelet Count 430, Mean Platelet Volume 4.7L, Neutrophils (%) (Auto) 67.3, Lymphocytes (%) (Auto) 14.6L, Monocytes (%) (Auto) 12.6H, Eosinophils (%) (Auto) 2.0, Basophils (%) (Auto) 3.4H, Sodium Level 135L, Potassium Level 3.9, Chloride Level 99, Carbon Dioxide Level 28, Anion Gap 8, Blood Urea Nitrogen 30H, Creatinine 1.3, Estimat Glomerular Filtration Rate 47.8, Glucose Level 129H, Calcium Level 7.6L, Magnesium Level 1.2L, Total Bilirubin 0.4, Aspartate Amino Transf (AST/SGOT) 55H, Alanine Aminotransferase (ALT/SGPT) 33, Alkaline Phosphatase 268H, Total Protein 5.8L, Albumin 1.2L, Globulin 4.6, Albumin/Globulin Ratio 0.3L 06/11/20 05:13: POC Whole Blood Glucose 137H 06/11/20 10:30: Urine Color Pale yellow, Urine Appearance Cloudy, Urine pH 6.5, Urine Specific [place] 1.010, Urine Protein 2+H, Urine Glucose (UA) Negative, Urine Ketones Negative, Urine Blood 3+H, Urine Nitrite Negative, Urine Bilirubin Negative, Urine Urobilinogen Normal, Urine Leukocyte Esterase 3+H, Urine RBC 10-15H, Urine WBC 40-60H, Urine Squamous Epithelial Cells Few, Urine Bacteria Few, Urine Yeast FewH 06/11/20 10:36: POC Whole Blood Glucose 124H 06/11/20 18:20: POC Whole Blood Glucose [Pending] Height (Feet): 5 Height (Inches): 2 Weight (Pounds): 158 Objective Elderly AA woman sleepy, arousable neck (+) trach coars BS RR abd soft, (+) GT no edema Assessment/Plan Status: stable Assessment/Plan: Assessment - Transaminitis, COVID-19 vs GB disease - Gallstones - rising WBC --> ? source - Resp failure - s/p trach - Dysphagia - NGT -->s/p PEG - CHF - Pulm HTN - Arrhythmia and periodic hypotension - Lovenox - Renal failure Recommendations - monitor LFT - Continue TF - Abx - consider CT abd and pelvis Justine Torres MD Jun 11, 2020 22:28
--- NOTE | 2020-06-11 22:47 | NUR ---
NURSE NOTES: Report given to ambulance personal Naomy- pt. remains stable upon transfer- corduroy brusher operator notified of Covid 19 transport.
--- NOTE | 2020-06-12 02:13 | Cardiology Progress Note ---
Subjective DATE OF SERVICE: Jun 11, 2020 S/P uncomplicated EGD; feedings tolerated. Remains on vent via trach. Monitor: PAFib/flutter; rates overall controlled. BP range overall stabilized. DC plan reviewed Objective Last 24 Hour Vital Signs Date Time Temp Pulse Resp B/P (MAP) Pulse Ox O2 Delivery O2 Flow Rate FiO2 06/11/20 20:00 97.9 99 14 112/63 (79) 99 06/11/20 20:00 40 06/11/20 20:00 Mechanical Ventilator Mechanical Ventilator 06/11/20 20:00 101 06/11/20 19:26 100 18 100 Mechanical Ventilator 40 101 20 40 06/11/20 18:00 90 116/59 06/11/20 16:00 Mechanical Ventilator Mechanical Ventilator 06/11/20 16:00 40 06/11/20 16:00 98.2 102 14 116/59 (78) 100 06/11/20 16:00 90 06/11/20 15:50 93 22 100 Mechanical Ventilator 40 93 22 40 06/11/20 12:00 98.2 85 14 116/58 (77) 100 06/11/20 12:00 40 06/11/20 12:00 Mechanical Ventilator Mechanical Ventilator 06/11/20 11:54 87 113/46 06/11/20 11:40 89 06/11/20 11:00 86 16 100 Mechanical Ventilator 40 86 16 40 06/11/20 08:00 87 06/11/20 08:00 98.2 87 14 113/46 (68) 100 06/11/20 07:59 90 19 100 Mechanical Ventilator 40 90 19 40 06/11/20 07:46 Mechanical Ventilator Mechanical Ventilator 06/11/20 07:43 40 06/11/20 05:02 85 110/53 06/11/20 04:00 40 06/11/20 04:00 Mechanical Ventilator Mechanical Ventilator 06/11/20 03:51 98.1 84 15 108/52 (70) 100 06/11/20 03:27 71 06/11/20 03:06 86 16 40 ROS: unchanged from my eval of 05/03/20 HEENT: Orally intubated, Mechanically Ventilated, Thin secretions ET Tube RHYTHM: Afib LUNGS: no accessory muscle use, expiratory wheezing, diminished breath sounds CARDIAC: normal S1 and S2, no murmur, irregularly irregular ABDOMEN: normal bowel sounds, non tender, soft, no organomegaly, G-Tube intact EXTREMITIES: no calf tenderness, +1 edema Laboratory Tests Test 06/11/20 03:25 06/11/20 05:13 06/11/20 10:30 06/11/20 10:36 White Blood Count 17.6 K/UL (4.8-10.8) H Red Blood Count 3.28 M/UL (4.20-5.40) L Hemoglobin 9.0 G/DL (12.0-16.0) L Hematocrit 26.7 % (37.0-47.0) L Mean Corpuscular Volume 81 FL (80-99) Mean Corpuscular Hemoglobin 27.4 PG (27.0-31.0) Mean Corpuscular Hemoglobin Concent 33.7 G/DL (32.0-36.0) Red Cell Distribution Width 15.5 % (11.6-14.8) H Platelet Count 430 K/UL (150-450) Mean Platelet Volume 4.7 FL (6.5-10.1) L Neutrophils (%) (Auto) 67.3 % (45.0-75.0) Lymphocytes (%) (Auto) 14.6 % (20.0-45.0) L Monocytes (%) (Auto) 12.6 % (1.0-10.0) H Eosinophils (%) (Auto) 2.0 % (0.0-3.0) Basophils (%) (Auto) 3.4 % (0.0-2.0) H Sodium Level 135 MMOL/L (136-145) L Potassium Level 3.9 MMOL/L (3.5-5.1) Chloride Level 99 MMOL/L (98-107) Carbon Dioxide Level 28 MMOL/L (21-32) Anion Gap 8 mmol/L (5-15) Blood Urea Nitrogen 30 mg/dL (7-18) H Creatinine 1.3 MG/DL (0.55-1.30) Estimat Glomerular Filtration Rate 47.8 mL/min (>60) Glucose Level 129 MG/DL (74-106) H Calcium Level 7.6 MG/DL (8.5-10.1) L Magnesium Level 1.2 MG/DL (1.8-2.4) L Total Bilirubin 0.4 MG/DL (0.2-1.0) Aspartate Amino Transf (AST/SGOT) 55 U/L (15-37) H Alanine Aminotransferase (ALT/SGPT) 33 U/L (12-78) Alkaline Phosphatase 268 U/L (46-116) H Total Protein 5.8 G/DL (6.4-8.2) L Albumin 1.2 G/DL (3.4-5.0) L Globulin 4.6 g/dL Albumin/Globulin Ratio 0.3 (1.0-2.7) L POC Whole Blood Glucose 137 MG/DL (74-106) H 124 MG/DL (74-106) H Urine Color Pale yellow Urine Appearance Cloudy Urine pH 6.5 (4.5-8.0) Urine Specific [place] 1.010 (1.005-1.035) Urine Protein 2+ (NEGATIVE) H Urine Glucose (UA) Negative (NEGATIVE) Urine Ketones Negative (NEGATIVE) Urine Blood 3+ (NEGATIVE) H Urine Nitrite Negative (NEGATIVE) Urine Bilirubin Negative (NEGATIVE) Urine Urobilinogen Normal MG/DL (0.0-1.0) Urine Leukocyte Esterase 3+ (NEGATIVE) H Urine RBC 10-15 /HPF (0 - 2) H Urine WBC 40-60 /HPF (0 - 2) H Urine Squamous Epithelial Cells Few /LPF (NONE/OCC) Urine Bacteria Few /HPF (NONE) Urine Yeast Few /HPF (NONE) H Test 06/11/20 18:20 06/11/20 22:31 POC Whole Blood Glucose Pending 87 MG/DL (74-106) Assessment/Plan Assessment/Plan Acute on chronic respiratory acidosis now compensated Anemia, multifactorial Acute respiratory failure - s/p trach. Dysphagia - s/p PEG Shock recovered LE edema due to severe pulmonary hypertension and right heart strain COPD exacerb with active bronchospasm Lactic acidosis COVID 19 PNA Acute on chr renal failure Chronic systolic/diastolic CHF Pulmonary fibrosis with chronic hypoxia Paroxysmal AFib with variable rates Hx Multifocal atrial arrhythmias Pulmonary HTN - severe Hx NSVTach Severe protein/calorie malnutrition Acute myocardial ischemia Resolving transaminitis Hypokalemia Nutrition by GTube; DC IVF PRBC transfusion for hb below 7gm/dl Vent support with on-going weaning efforts following trach Diltiazem dose to be continued as is - based on ventricular rates No resumption of digoxin due to slow heart rates and pauses. Full anticoagulation for cardioembolic prophyl; restart eliquis. Chris,Simone MD Jun 12, 2020 02:13
== END 2020-06-11 23:25 | DRG 4 ==
LOC: EMR 08:55 → 2E 09:07 → EDBEDREQ 12:26 → 2E 14:52 → 4E 05-11 08:34 → 2W 05-11 11:19 → ICU 05-11 19:50 → 2W 05-30 19:01
PROC: 5A1955Z Respiratory Ventilation, Greater than 96 Consecutive Hours (ICD-10-PCS; principal; 2020-05-11)
PROC: 0BH17EZ Insertion of Endotracheal Airway into Trachea, Via Natural or Artificial Opening (ICD-10-PCS; principal; 2020-05-11)
PROC: 0B110F4 Bypass Trachea to Cutaneous with Tracheostomy Device, Open Approach (ICD-10-PCS; 2020-05-28)
PROC: 0DH63UZ Insertion of Feeding Device into Stomach, Percutaneous Approach (ICD-10-PCS; 2020-06-09)
DX: U07.1 COVID-19 (principal); J12.89 Other viral pneumonia; J96.01 Acute respiratory failure with hypoxia; J96.02 Acute respiratory failure with hypercapnia; J15.1 Pneumonia due to Pseudomonas; I21.4 Non-ST elevation (NSTEMI) myocardial infarction; E43 Unspecified severe protein-calorie malnutrition; J44.1 Chronic obstructive pulmonary disease with (acute) exacerbation; I13.0 Hypertensive heart and chronic kidney disease with heart failure and stage 1 through stage 4 chronic kidney disease, or unspecified chronic kidney disease; I50.42 Chronic combined systolic (congestive) and diastolic (congestive) heart failure; J44.0 Chronic obstructive pulmonary disease with (acute) lower respiratory infection; N17.9 Acute kidney failure, unspecified; I47.2 Ventricular tachycardia; R57.9 Shock, unspecified; N39.0 Urinary tract infection, site not specified; B49 Unspecified mycosis; E87.0 Hyperosmolality and hypernatremia; N18.9 Chronic kidney disease, unspecified; J84.10 Pulmonary fibrosis, unspecified; I48.0 Paroxysmal atrial fibrillation; I27.20 Pulmonary hypertension, unspecified; E87.5 Hyperkalemia; Z68.27 Body mass index [BMI] 27.0-27.9, adult; R13.10 Dysphagia, unspecified; D64.9 Anemia, unspecified; K29.70 Gastritis, unspecified, without bleeding; I95.9 Hypotension, unspecified; K80.20 Calculus of gallbladder without cholecystitis without obstruction
CPT/HCPCS: 36415; 71045; 74018; 76705; 80048; 80053; 80076; 80202; 81001; 81003; 82150; 82248; 82270; 82550; 82570; 82803; 82962; 83605; 83690; 83735; 83880; 84300; 84484; 84550; 85007; 85025; 85610; 85651; 85730; 86140; 86850; 86900; 86901; 86920; 87040; 87045; 87070; 87086; 87181; 87205; 87324; 93005; 93306; 93970; 94002; 94003; 94150; 94640; 94660; 94664; 96365; 96367; 96375; 99285; J1815; J7620; J8499; U0002